=== PATIENT | male | born 1950 | race Caucasian/White ===

== ENCOUNTER 2018-09-18 08:43 | Inpatient (IN) ==
--- OUTSIDE RECORDS SUMMARY | 2018-09-18 08:46 | External Medical Summary | Continuity of Care Document ---
:1950 Author Name Levon Merritt Address Unavailable Unavailable , Care Team Providers Name Role Phone Sakina KAPOOR Unavailable [email or web address] Mitchel CARIAS Unavailable Unavailable Problems Active medical history not documented Allergies and Adverse Reactions Allergy history not documented Medications Medications not documented Procedures Procedures not documented Immunizations Immunizations not documented Plan of Treatment Planned Observations Planned Goals not documented Results No Known Results Results not documented Encounters Appointment; Jenifer Preslye CCC-A 14-Jan-2014 13:00 Encounter Diagnosis: Problem not documented
[2018-09-18] MEDS ORDERED: OPTIRAY 320 125ml IV PRN (09:03)
--- NOTE | 2018-09-18 09:20 | CT Scan Report ---
CT head/brain wo con CLINICAL HISTORY: 68 years-old Male with Stroke evaluation . Acute strokelike symptoms TECHNIQUE: Multiple axial CT images of the head were obtained without contrast. A dose lowering tech nique was utilized adhering to the principles of ALARA. COMPARISON: CT head 04/17/2018. FINDINGS: No acute intracranial hemorrhage, midline shift, intracranial mass, hydrocephalus, or abnormal extra- axial collection. Age-related involutional changes. Encephalomalacia from remote infarct about the ri ght frontal lobe redemonstrated. Scattered white matter hypodensities are suggestive of chronic micro vascular ischemic disease. Cerebral vascular calcifications are noted. Senescent calcifications of th e right lentiform nucleus. Ill-defined hypodensity with blurring of the bourgeois-white interface involves the left occipital lobe. This measures up to approximate 5.3 x 3.6 cm. Additionally, there is probab le infarct extension into the posterior left parietal lobe, image 16 series 2. The calvarium is intact. Mastoid air cells and middle ear cavities are clear. Moderate mucosal thick ening of the ethmoid air cells. Moderate to severe mucosal thickening of the visualized maxillary sin uses. The soft tissues and orbits are unremarkable. IMPRESSION: 1. Moderate sized acute appearing territorial infarct about the left parieto-occipital distribution. 2. No acute intracranial hemorrhage or midline shift. 3. Chronic findings as above. The above report was generated using voice recognition software. It may contain grammatical, syntax o r spelling errors. Electronically signed by: Garret Degroot M.D. 09/18/2018 9:18 AM
[2018-09-18] MEDS ORDERED: MAGNESIUM SULFATE / D5W 1 GM/100 ML BAG IV ONE (09:28)
[2018-09-18] MEDS ORDERED: ASPIRIN CHEW 324 MG PO STA (09:28)
[2018-09-18] MEDS ORDERED: LEVOFLOXACIN/D5W 750 MG/150 ML BAG IV STA (09:28)
[2018-09-18] MEDS ORDERED: PIPERACILLIN/TAZOBACTAM 4.5 GM/120 ML BAG IV ONE (09:28)
[2018-09-18] MEDS ORDERED: PIPERACILL/TAZOBAC CONSULT ACTIVE PRN (09:28)
[2018-09-18] MEDS ORDERED: LEVALBUTEROL HCL 1.25 MG/3 ML NEB NEB STA (09:30)
[2018-09-18] MEDS ORDERED: SODIUM CHLORIDE 0.9% 1000ML 1,000 ML IV ONE (09:30)
--- NOTE | 2018-09-18 09:31 | CT Scan Report ---
CTA ANGIOGRAPHY OF THE HEAD CLINICAL HISTORY: Visual disturbance. Difficulty walking. Stroke evaluation. COMPARISON STUDY: MRA of the head March 10, 2009. Head CT April 17, 2018. TECHNIQUE: Helical axial images of the head were obtained following uneventful intravenous administr ation of 120 cc of Optiray 320. Automated exposure control was utilized for the study. A dose lower ing technique was utilized adhering to the principles of ALARA. FINDINGS: Please note that the CTA of the neck will be reported separately. No acute intracranial hem orrhage, midline shift or mass effect is present. Old right frontal lobe infarct is noted. There is h ypodensity within the left occipital lobe which suggests an acute to subacute infarct. There is no si gnificant mass effect. Ventricular system is unremarkable. The basilar cisterns are patent. Bilateral maxillary sinus air-fluid levels are noted. There is also mild ethmoid sinus mucosal thickening. The bilateral M1, M2, A1 and A2 segments are patent. There is no abrupt vessel cut off. There is extensi ve plaque within the bilateral cavernous carotids with mild stenosis. No intracranial aneurysm is yonis ntified. No abrupt vessel cut off within the posterior circulation is noted. IMPRESSION: 1. No intracranial aneurysm or abrupt vessel cut off. Extensive plaque within bilateral cavernous car otids with mild stenosis. 2. Hypodensity within the left occipital lobe which suggests an acute to subacute infarct. 3. Bilateral maxillary and ethmoid sinusitis, possibly acute. Electronically signed by: Filiberto Donahue M.D. 09/18/2018 9:30 AM
[2018-09-18 09:33] LABS: Basophils # (auto) 0.03 K/uL (0-0.2); Basophils % (auto) 0.3 %; Eosinophils # (auto) 0.06 K/uL (0-0.5); Eosinophils % (auto) 0.6 %; Hematocrit (blood only) 45.6 % (42-52); Hemoglobin 15.8 g/dL (14.0-18.0); Immature Granulocytes # (auto) 0.01 K/uL (0.00-0.02); Immature Granulocytes % (auto) 0.1 %; Lymphocytes # (auto) 1.08 K/uL (1.2-3.4); Lymphocytes % (auto) 10.7 %; Mean Corpuscular Hgb Conc 34.6 g/dL (32-36); Mean Corpuscular Volume 96.4 fL (80-100); Mean Platelet Volume 9.8 fL (7.4-10.4); Monocytes # (auto) 1.09 K/uL (0.11-0.59); Monocytes % (auto) 10.8 %; Neutrophils # (auto) 7.84 K/uL (1.4-6.5); Neutrophils % (auto) 77.5 %; Platelet Count 207 K/uL (130-400); RDW Coefficient of Variation 14.8 % (11.5-14.5); RDW Standard Deviation 52.6 fL (36.4-46.3); Red Blood Count 4.73 M/uL (4.7-6.1); White Blood Count 10.11 K/uL (4.8-10.8)
--- NOTE | 2018-09-18 09:34 | XRay Report ---
XR chest 1V portable HISTORY: 68 years-old Male Pt c/o visual disturbance acute strokelike symptoms COMPARISON: Chest radiograph 02/20/2018, chest CT 01/22/2010 TECHNIQUE: Portable AP view of the chest FINDINGS: Cardiomediastinal and hilar silhouettes are unchanged. Chronic pleural parenchymal scarring about the left upper lung redemonstrated. There is no pneumothorax, large pleural effusion or overt pulmonary edema identified. Surgical clip projects over the abdominal left upper quadrant. Degenerative changes of the shoulders and spine. Calcification the thoracic aortic arch. IMPRESSION: Chronic changes as above without acute process. The above report was generated using voice recognition software. It may contain grammatical, syntax o r spelling errors. Electronically signed by: Garret Degroot M.D. 09/18/2018 9:32 AM
[2018-09-18 09:39] LABS: iSTAT Creatinine 1.4 mg/dl (0.6-1.3); iSTAT Hemoglobin 16.7 g/dl (14.0-18.0); iSTAT Ionized Calcium 1.08 mmol/l (1.12-1.32); iSTAT Potassium 4.6 mEq/L (3.3-5.0)
--- NOTE | 2018-09-18 09:40 | CT Scan Report ---
CT angio neck with con CLINICAL HISTORY: 68 years-old Male presenting with Pt c/o trouble walking, aphasia, visual disturban ce, concern for stroke. TECHNIQUE: Multidetector CT angiography of the neck was performed after the administration of intrave nous contrast. 3-D volumetric and/or maximum intensity projection (MIP) images were subsequently bree nstructed for review. IV contrast: 120 mL of Optiray 320. One or more dose lowering techniques were u sed consistent with the principles of ALARA (as low as reasonably achievable), including automatic ex posure control, mA or kV adjustment to individual patient size, and/or use of iterative reconstructio n. Stenosis measurements were based on NASCET-like criteria (distal lumen diameter as the denominator for stenosis measurement). COMPARISON: None. CT DOSE (mGy.cm): The estimated cumulative dose is 1106.53 mGy.cm. FINDINGS: Publication Distributor topogram: Unremarkable. Aortic arch: Extensive calcified and noncalcified atherosclerotic plaque of the aortic arch, which is irregular and mildly ectatic measuring 4.4 cm in diameter in comparison to the partially visualized more distal aortic arch. The proximal aortic arch is nonocclusive within the [id number]. Innominate artery: The origin of the innominate is not included within the [id number]. Extensive a therosclerotic irregularity of the lumen of the innominate. Right subclavian artery: Patent. Right common carotid artery: Calcified and noncalcified atherosclerotic plaque primarily at the origi n and proximal portion of the right common carotid artery. Right internal and external carotid arteries: Densely calcified carotid bifurcation predominantly inv olving the origin of the right internal carotid artery. The degree of heavily calcified plaque degrad es accuracy of stenosis measurement. Allowing for this there is less than 30% stenosis resulting. Sig nificant luminal irregularity of the proximal course of the right ICA with a second site of stenosis less than 40% at C3-4. External carotid artery widely patent. Left common carotid artery: Mild atherosclerotic irregularity of the common carotid artery. Left internal and external carotid arteries: Densely calcified atherosclerotic plaque as well as a le sser component of noncalcified plaque at the carotid bifurcation predominantly involving the origin o f the left internal carotid artery. No resulting significant stenosis. Remainder of the course of the left ICA widely patent as is the left ECA. Left subclavian artery: Aneurysmal dilatation of the origin and proximal course of the left subclavia n artery measuring 2.4 cm in diameter. Significant noncalcified atherosclerotic plaque results in sev ere luminal irregularity though there is less than 25% stenosis. The left subclavian artery returns t o a normal caliber prior to the takeoff of the left vertebral artery. Vertebral arteries: Codominant vertebral arteries. Atherosclerotic plaque at the origin and proximal course of the right vertebral artery resulting in stenosis less than 50%. No stenosis of the origin o f the left vertebral artery. Remainder of the courses of the bilateral vertebral arteries patent. Other: Extensive atherosclerotic plaque of the cavernous portions of the internal carotid arteries an d minimally in the intradural portions of the vertebral arteries. Soft tissues of the neck normal all owing for the phase of contrast. Mild degenerative changes of the cervical spine. Opacification of th e maxillary sinuses. Lung apices clear. IMPRESSION: 1. Aneurysmal dilatation of the aortic arch, which is only partially included within the field-of-vi ew. 2. 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 3. Extensive atherosclerosis without evidence of a severe stenosis in the cervical arteries. Stenose s less than 50% noted in the proximal right internal carotid artery and origin of the right vertebral artery. Electronically signed by: Santiago Hernandez M.D. 09/18/2018 9:38 AM
[2018-09-18 09:47] LABS: INR 1.1 (0.9-1.1); Partial Thromboplastin Time 27.8 Seconds (21.0-31.0); Prothrombin Time 10.9 Seconds (9.0-12.0)
[2018-09-18 09:49] LABS: Alanine Aminotransferase 14 U/L (12-78); Albumin Level 2.9 gm/dl (3.4-5.0); Aspartate Aminotransferase 19 U/L (15-37); BUN Creatinine Ratio 13.4 (10-20); Blood Urea Nitrogen 20 mg/dl (7-18); Calcium 9.2 mg/dl (8.5-10.1); Carbon Dioxide 24 mmol/L (21-32); Chloride 94 mmol/L (98-107); Creatinine Clr Calc Pharmacy 45.5 ml/min; Est GFR (African American) 54.3; Est GFR (Non-African American) 46.9; Glucose 95 mg/dl (70-99); Potassium 4.6 mmol/L (3.5-5.1); Sodium 127 mmol/L (136-145)
[2018-09-18 09:54] LABS: Albumin Globulin Ratio 0.6 (0.9-2); Alkaline Phosphatase 84 U/L (45-117); Bilirubin,Total 0.9 mg/dl (0.2-1); Globulin 4.7 gm/dl (2.5-4.0); Total Protein 7.6 gm/dl (6.4-8.2); Troponin I < 0.015 ng/ml (0-0.045)
--- NOTE | 2018-09-18 10:47 | History & Physical Report ---
Date of Service September 18, 2018 Assessment & Plan (1) CVA (cerebral vascular accident): Pt presented to ER with blurry vision, NAILS, difficulty walking that was noted upon awakening on 09/17/18 . Reported elevated BP 180s/90s yesterday and was having some word finding difficulty. Today in ER patient complains of continued blurry vision, dizziness and ambulatory difficulty. Denies any current headache, vision loss, diplopia, paresthesias or extremity weakness. In ER BP 117/67, 161/70 CT HEAD:Moderate sized acute appearing territorial infarct about the left parieto-occipital distribution. No acute intracranial hemorrhage or midline shift. CTA HEAD: No intracranial aneurysm or abrupt vessel cut off. Extensive plaque within bilateral cavernous carotids with mild stenosis. Hypodensity within the left occipital lobe which suggests an acute to subacute infarct. CTA NECK: Aneurysmal dilatation of the aortic arch, which is only partially included within the ncymt-[id number]. 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 Extensive atherosclerosis without evidence of a severe stenosis in the cervical arteries. Stenoses less than 50% noted in the proximal right internal carotid artery and origin of the right vertebral artery. -In ER was given aspirin 324mg po -Tele to monitor for arrhythmias -EKG in am -trend troponin -lipids and A1C in am -MRI brain -echo with bubble study -aspiration precautions -PT/OT consult -continue statin, aspirin -neurology consult (2) Sinusitis: (3) Bronchitis: Patient with reported sinus congestion, rhinorrhea, productive clear-white cough and wheezing x1 month. Reported completion amoxicillin outpatient last month In ER R: 20, 94% on room air. Initial CXR: No acute changes In ER patient was given 1L NSS, magnesium 1 g IV, Xopenex nebulizer, Zosyn, Lev aquin CT head with noted bilateral maxillary and ethmoid sinusitis, possibly acute Noted diffuse wheezing throughout. -Obtain repeat chest x-ray to rule out volume overload, hold on further IVF at this time -Xopenex/Atrovent nebulizer treatments -Levaquin (4) Hypertension: BP: 161/70 -continue metoprolol, amlodipine, hydralazine (5) AAA (abdominal aortic aneurysm): S/P AAA repair in 2008 (6) CKD (chronic kidney disease), stage III: Cr:1.49. Baseline ~1.4 -Monitor renal function -Avoid nephrotoxic agents and possible (7) Hyperlipidemia: -Continue statin DVT Prophylaxis -Heparin SQ Full Code as per discussion with pt Follows with Dr Kingston for routine care Pt was seen with Dr Reyes. See addendum History of Present Illness Chief Complaint: Blurry vision, dizziness Primary Care Provider: Jairo Kingston MD Pt is 68 y/o M with PMH HTN, HLD, CKD III, AAA s/p repair in 2008, gout presented to ER with c/o blurry vision, dizziness. Pt states woke up yesterday 09/17/18 with blurry vision, NAILS. Also noticed difficulty walking. Reports that BP was elevated in the 180s/90s yesterday and was having some word finding difficulty. Presented to PCPs office today and was referred to ER secondary to symptoms. Today patient denies any headache. Lungs blurry vision is a little better. Still with dizziness altered gait when walking. Denies any extremity paresthesias or weakness. Denies any choking or dysphasia, facial drooping, slurred speech. Reports patient was treated for sinus infection with amoxicillin in 07/2018. Reports has had continued sinus congestion and cough productive of clear/white sputum. Reports past month has had some wheezing. Denies any fevers or chills. Denies any falls or head injury. Denies diaphoresis, N/V/D/C, syncope, LOC, vision loss, diplopia, neck pain, CP, SOB, orthopnea, palpitations, sore throat, otalgia, abdominal pain, extremity edema, rashes, urinary symptoms. Allergies Allergy/AdvReac Type Severity Reaction Status Date / Time lisinopril Allergy Intermediate BP DROP Unverified 09/18/18 09:23 clopidogrel AdvReac Unknown HEART PALP. Verified 09/18/18 09:23 Home Medications Home Medications Medication Instructions Recorded Confirmed Type allopurinol 300 mg PO DAILY PRN 02/20/18 09/18/18 History amlodipine 10 mg PO QAM 02/20/18 09/18/18 History atorvastatin 40 mg PO QAM 02/20/18 09/18/18 History metoprolol tartrate 100 mg PO BID 02/20/18 09/18/18 History hydralazine 10 mg PO BID 04/17/18 09/18/18 History aspirin 81 mg PO QAM 09/18/18 09/18/18 History fluticasone propionate 2 spray INTRANASAL QAM 09/18/18 09/18/18 History folic acid 1 mg PO QAM 09/18/18 09/18/18 History ibuprofen [Advil] 200 mg PO Q6H PRN 09/18/18 09/18/18 History multivitamin 1 tab PO QAM 09/18/18 09/18/18 History thiamine HCl (vitamin B1) [Vitamin 100 mg PO QAM 09/18/18 09/18/18 History B-1] Past Med/Surg History Medical History CKD (chronic kidney disease), stage III (Chronic) Gout (Chronic) Hyperlipidemia (Chronic) Acute kidney injury superimposed on chronic kidney disease (Resolved) Hypertension (Chronic) Acute blood loss anemia (Resolved) GI bleed (Resolved) AAA (abdominal aortic aneurysm) (Chronic) S/P repair Surgical History Hx of hernia repair (Chronic) lysis of adhesions, incisional hernia repair laparoscopically 01/28/2010 at [facility] - Dr Desouza History of tonsillectomy and adenoidectomy (Chronic) History of lumbar surgery (Chronic) 2000 S/P AAA repair (Chronic) 01/13/2009 - Dr Suazo Hx of colonoscopy (Chronic) Family History Other AAA (abdominal aortic aneurysm) Hypertension Social History Preferred Language: Brazilian Communication Ability: Effective Paediatric Thoracic Physician Required: No Beliefs That Will Affect Care: None marital status: Current Living Situation: Spouse current occupational status: employed Other Information That Helps Us Care for You: No Feels Safe at Home: Yes Safety Concerns: Feels Safe At This Time Smoking Status: Current every day smoker Tobacco Type: cigars Cigarettes Per Day: Former cigarette. Quit 1998 Hx Alcohol Use: Yes Alcohol type: beer Alcohol Intake Frequency Comment: Last drink 2 days ago Hx Substance Use: No Review of Systems Review of Systems: All systems reviewed & are unremarkable except as noted in HPI & below Physical Exam Physical Exam: General: no acute distress, WDWN Head: normocephalic, atraumatic Eyes: PERRL, EOM's intact, conjunctiva non-injected, anicteric ENT: normal inspection external ears, nose, mucous membranes moist Neck: supple, trachea midline, carotid bruits L>R Lungs: no respiratory distress, +diffuse wheezing throughout CV: RRR, no murmur, no pretibial edema Abd: normal BS, soft, non-tender Ext: no cyanosis, no calf tenderness Neuro: A&O x 3, no facial drooping, symmetric eyebrow raise, speech clear, tongue midline, no pronator drift, strength 5/5 upper and lower extremities while testing in bed, decreased peripheral vision to right eye, normal affect Skin: warm, dry Results & Data Vital Signs (Past 12 Hours) Vital Signs Temp Pulse Pulse Resp BP Pulse Ox 09/18/18 10:01 61 164/85 H 100 09/18/18 10:00 61 100 09/18/18 09:58 72 16 95 09/18/18 09:37 95 09/18/18 09:32 56 L 94 09/18/18 09:31 57 L 161/70 H 95 09/18/18 09:30 58 L 09/18/18 09:17 59 L 09/18/18 09:14 61 171/82 H 09/18/18 08:50 36.6 C 62 20 117/67 94 Laboratory Results Short CBC 09/18/18 Range/Units 09:12 WBC 10.11 (4.8-10.8) K/uL Hgb 15.8 (14.0-18.0) g/dL Hct 45.6 (42-52) % Plt Count 207 (130-400) K/uL BMP 09/18/18 09:12 Sodium 127 L Potassium 4.6 Chloride 94 L Carbon Dioxide 24 BUN 20 H Creatinine 1.49 H Glucose 95 Calcium 9.2 Cardiac Enzymes 09/18/18 Range/Units 09:12 Troponin I < 0.015 (0-0.045) ng/ml Liver Function 09/18/18 Range/Units 09:12 Total Bilirubin 0.9 (0.2-1) mg/dl AST 19 (15-37) U/L ALT 14 (12-78) U/L Alkaline Phosphatase 84 (45-117) U/L Albumin 2.9 L (3.4-5.0) gm/dl Diagnostic Findings CT HEAD: IMPRESSION: 1. Moderate sized acute appearing territorial infarct about the left parieto- occipital distribution. 2. No acute intracranial hemorrhage or midline shift. 3. Chronic findings as above CTA HEAD: IMPRESSION: 1. No intracranial aneurysm or abrupt vessel cut off. Extensive plaque within bilateral cavernous carotids with mild stenosis. 2. Hypodensity within the left occipital lobe which suggests an acute to subacute infarct. 3. Bilateral maxillary and ethmoid sinusitis, possibly acute. CTA NECK: IMPRESSION: 1. Aneurysmal dilatation of the aortic arch, which is only partially included within the [id number]. 2. 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 3. Extensive atherosclerosis without evidence of a severe stenosis in the cervical arteries. Stenoses less than 50% noted in the proximal right internal carotid artery and origin of the right vertebral artery. CXR: IMPRESSION: Chronic changes as above without acute process. ECG Rate (beats per minute): 59 Rhythm: sinus bradycardia Findings: + T-wave inversion Additional Comments: t wave inversions V1, III also noted on ekg 02/2018 Supervising Physician Co-Signing Physician Notes I saw this patient with the physician special event assistant, I participated in the history, physical, review of systems, and physical exam. I reviewed the medications with the patient and the physician special event assistant and helped reconcile the medications. I helped take a detailed family and social history as well. I formulated the assessment and plan personally with the physician special event assistant and went over it with the patient. ROS-No Headache, +Visual Changes, No Nausea, No Vomiting, No Fever, No Chills, No Neck Pain or Stiffness, No Chest Pain, No Palpitations, No SOB, No CAMARENA, No Cough, No Sputum, No Wheezing, No Abdominal Pain, No Diarrhea, No Hematemesis, No Hemoptysis, No Unexpected Weight Loss, No Flank pain, No Melena, No Hematochezia, No Frequency, No Urgency, No Burning, No Hematuria, No Rashes, No Diaphoresis. Appetite is Normal Physical Exam Gen-AAO x 3, NAD, Afebrile, SELDOVIA Head-NCAT, EOMI, PERRLA, Anicteric Sclera, No Posterior Pharyngeal Erythema, Possible R Hemianopsia Neck-Supple, No JVD, No Thyromegaly, No Masses, No LAD, + L>R Bruits Lungs-Clear to Auscultation Bilaterally, No Rales, No Rhonchi, +Wheezing, No Crepitus Chest-No S4, +S1, +S2, No S3, No Murmurs, No Rubs, No Gallops, No Ectopy Abdomen-Soft, Bowel Sounds Present, Non Tender, Non Distended, No Hepatomegaly, No Splenomegaly, No Palpable Masses, No Rebound, No Rigidity, No Guarding Musculoskeletal-Full Range of Motion Bilaterally, No CVAT Extremities-No Cyanosis, No Clubbing, No Edema Nuero-Cranial Nerves II-XII grossly intact, Motor WNL, DTRs WNL, Strength WNL, Non Focal Psych-Normal Mood (1) CVA (cerebral vascular accident) CVA mechanism: unspecified Qualified Code(s): I63.9 - Cerebral infarction, unspecified
[2018-09-18] MEDS ORDERED: PHARMACIST DISCHARGE MED REC CONSULT PRN (11:41)
[2018-09-18] MEDS ORDERED: ACETAMINOPHEN 325 MG TAB PO PRN (11:41)
[2018-09-18] MEDS ORDERED: STROKE PATIENT DISCHARGE STA (12:38)
[2018-09-18] MEDS ORDERED: XOPENEX/ATROVENT 0.63mg/0.5MG NEB COMBO NEB SCH (14:00)
[2018-09-18] MEDS: IPRATROPIUM BROMIDE NEB SOLN 0.02% 2.5 ML VIAL INH SCH ×2 (14:22→19:47)
[2018-09-18] MEDS: LEVALBUTEROL HCL 0.63 MG/3 ML NEB NEB SCH ×2 (14:22→19:47)
[2018-09-18] MEDS: HEPARIN SOD 5,000 UNIT/0.5 ML VIAL SQ SCH ×2 (14:32→21:05)
--- NOTE | 2018-09-18 14:43 | Neurology Consultation ---
Date of Consultation September 18, 2018 Assessment & Plan (1) CVA (cerebral vascular accident): 1. CT head- left parieto occipital infarct 2. MRI brain for further evaluation of extent of stroke 3. TTE- ordered but not resulted- with bubble study 4. optimize HTN, HLD, LDL <70 5. long time smoker- cessation urged 6. NA 127-128 ? may need CA work up if no other cause is found? 7. would stop aspirin 81 mg and contine plavix 75 mg for a lifetime 8. PT/OT speech for discharge needs 9. will need ophthalmology as out patient and should not drive until cleared due to loss of right peripheral vision 10. surveillance monitor as outpatient follow up with neurology as outpatient in 4-6 weeks Sophy Maguire PAC schedule Supervising Physician Co-Signing Physician Notes I have seen and discussed above patient with Dr Patricio Ramirez, neurology I have seen and examined Mr. Fung today, reviewed his imaging studies which is yet do not include an MRI scan but to document the presence of a clear-cut left occipital pole infarction of recent origin on CT and have reviewed Sophy Maguire's notes and recommendations above. He has had an acute left occipital lobe infarction without any other findings on exam or on CTs scan that would suggest involvement of deeper areas of the brain and this did occur while he was taking baby aspirin as part of his general vascular disease program Exam reveals only the right hemianopsia which is fairly dense and little hesitancy in speech which is pretty nonspecific and may reflect some hearing loss rather than language disturbance. Otherwise examination is pretty nonfocal We are awaiting results of echocardiogram and is on monitoring for paroxysmal atrial fibrillation which is part of the differential diagnosis of this type of stroke We will add Plavix to his regimen even though [facility] is listed as an allergy. The manifestations are aware of heart palpitations which in my mind are highly nonspecific and may have been due to any 1 of a number of other conditions We will see what happens in the hospital after single dose perhaps a series of doses while we are working him up for cardiogenic emboli and observing him for development of atrial fibrillation if he is able to tolerate the Plavix program would include maintenance of dual antiplatelet therapy for 21 days and then using Plavix as a monotherapy which in light of his prior GI bleed due to gastric mucosal irritation, might be a better long-term choice compared to aspirin anyway We will check back with him tomorrow. Patricio Ramirez MD History of Present Illness Reason for Consultation: CVA Requesting Physician: Torey Reyes DO Attending Physician: Torey Reyes DO History of Present Illness Mikhail is a 68 year old male with PMH HTN, HLD, CKD III, UGI bleed with cli pping, AAA s/p repair in 2008, gout presented to ER with c/o blurry vision, dizziness. He woke with blurry vision, NAILS and was having difficulty walking. His blood pressure was elevated in the 180s/90s and was having some word finding difficulty. He went to his PCPs office and then referred to ER secondary to symptoms. He is still having blurry vision and some dizziness and gait difficulty with walking. He continues to have ongoing sinus congestion and cough productive of clear/white sputum long with some wheezing. He is a cigar smoker and knows he needs to stop. denies CP, SOB, abdominal pain, one sided weakness numbness tingling, N, V, slurred speech swallowing issues. +blurred vision. Allergies Allergy/AdvReac Type Severity Reaction Status Date / Time lisinopril Allergy Intermediate BP DROP Unverified 09/18/18 09:23 clopidogrel AdvReac Unknown HEART PALP. Verified 09/18/18 09:23 Home Medications Home Medications Medication Instructions Recorded Confirmed Type allopurinol 300 mg PO DAILY PRN 02/20/18 09/18/18 History amlodipine 10 mg PO QAM 02/20/18 09/18/18 History atorvastatin 40 mg PO QAM 02/20/18 09/18/18 History metoprolol tartrate 100 mg PO BID 02/20/18 09/18/18 History hydralazine 10 mg PO BID 04/17/18 09/18/18 History aspirin 81 mg PO QAM 09/18/18 09/18/18 History fluticasone propionate 2 spray INTRANASAL QAM 09/18/18 09/18/18 History folic acid 1 mg PO QAM 09/18/18 09/18/18 History ibuprofen [Advil] 200 mg PO Q6H PRN 09/18/18 09/18/18 History multivitamin 1 tab PO QAM 09/18/18 09/18/18 History thiamine HCl (vitamin B1) [Vitamin 100 mg PO QAM 09/18/18 09/18/18 History B-1] Patient History Medical History CKD (chronic kidney disease), stage III (Chronic) Gout (Chronic) Hyperlipidemia (Chronic) Acute kidney injury superimposed on chronic kidney disease (Resolved) Hypertension (Chronic) Acute blood loss anemia (Resolved) GI bleed (Resolved) AAA (abdominal aortic aneurysm) (Chronic) S/P repair Surgical History Hx of hernia repair (Chronic) lysis of adhesions, incisional hernia repair laparoscopically 01/28/2010 at [facility] - Dr Desouza History of tonsillectomy and adenoidectomy (Chronic) History of lumbar surgery (Chronic) 1999 S/P AAA repair (Chronic) 01/13/2009 - Dr Suazo Hx of colonoscopy (Chronic) Family History Other AAA (abdominal aortic aneurysm) Hypertension Social History Preferred Language: Syrian Communication Ability: Effective Manager Financial Services Required: No Beliefs That Will Affect Care: None marital status: Current Living Situation: Spouse current occupational status: employed Other Information That Helps Us Care for You: No Feels Safe at Home: Yes Safety Concerns: Feels Safe At This Time Smoking Status: Current every day smoker Tobacco Type: cigars Cigarettes Per Day: Former cigarette. Quit 1998 Hx Alcohol Use: Yes Alcohol type: beer Alcohol Intake Frequency Comment: Last drink 2 days ago Hx Substance Use: No Physical Exam Physical Exam: Physical Exam: Constitutional: appearance nourished, healthy and normal Ears, Nose, Mouth and Throat: mucous membranes moist, no injection and skin normal, eyes normal Cardiovascular: normal S-1 and S-2 and regular rate and rhythm Respiratory: clear to auscultation (CTA) and no rales, ronchi or wheeze Musculoskeletal: no peripheral edema and good distal pulses Skin: no stigmata of neurocutaneous disease noted and normal and intact Eyes: extraocular muscles intact (EOMI) and pupils equal, round and reactive to light (PERRL), right jemima anopsia NEUROLOGIC EXAMINATION: Mental status: Alert and interactive Oriented thought it was 2012 but then corrected self, president Kun, June and then corrected to September Oriented to person Speech fluent with no evidence of aphasia Cranial Nerves smile eye brow raise symmetric Reflexes: Deep tendon reflexes were symmetrical and graded 2/5. Sensory: to light and cool touch intact Coordination: finger to nose bipass on left intact on right, rapid hand movement intact bilaterally, heel to thomas intact bilaterally Gait/Stance: Posture normal. Motor: Negative for pronator drift of out stretched arms with eyes closed. Strength: biceps triceps hand barrel tester 5/5 bilaterally, hip flex plantar flex ext 5/5 bilaterally Results & Data Vital Signs (Past 12 Hours) Vital Signs Temp Pulse Pulse Pulse Resp BP BP 09/18/18 14:22 64 18 09/18/18 12:42 66 09/18/18 11:43 36.7 C 68 16 124/71 09/18/18 10:01 61 164/85 H 09/18/18 10:00 61 09/18/18 09:58 72 16 09/18/18 09:37 09/18/18 09:32 56 L 09/18/18 09:31 57 L 161/70 H 09/18/18 09:30 58 L 09/18/18 09:17 59 L 09/18/18 09:14 61 171/82 H 09/18/18 08:50 36.6 C 62 20 117/67 Pulse Ox 09/18/18 14:22 93 09/18/18 12:42 09/18/18 11:43 91 09/18/18 10:01 100 09/18/18 10:00 100 09/18/18 09:58 95 09/18/18 09:37 95 09/18/18 09:32 94 09/18/18 09:31 95 09/18/18 09:30 09/18/18 09:17 09/18/18 09:14 09/18/18 08:50 94 Laboratory Results Abnormal lab results 09/18/18 09/18/18 09/18/18 Range/Units 09:12 09:12 09:27 RDW Std Deviation 52.6 H (36.4-46.3) fL RDW Coeff of Chaka 14.8 H (11.5-14.5) % Neut # (Auto) 7.84 H (1.4-6.5) K/uL Lymph # (Auto) 1.08 L (1.2-3.4) K/uL Johnson # (Auto) 1.09 H (0.11-0.59) K/uL POC Sodium 128 L (135-144) mEq/L Sodium 127 L (136-145) mmol/L POC Chloride 93 L (101-112) mEq/L Chloride 94 L (98-107) mmol/L POC Total CO2 23 L (24-31) mEq/l POC BUN 20 H (7-18) mg/dl BUN 20 H (7-18) mg/dl Creatinine 1.49 H (0.6-1.4) mg/dl POC Creatinine 1.4 H (0.6-1.3) mg/dl POC Ioniz Calcium Maria G 1.08 L (1.12-1.32) mmol/l Albumin 2.9 L (3.4-5.0) gm/dl Globulin 4.7 H (2.5-4.0) gm/dl Albumin/Globulin Ratio 0.6 L (0.9-2) Diagnostic Findings CXR-Chronic changes as above without acute process. CT head-Moderate sized acute appearing territorial infarct about the left parieto-occipital distribution. No acute intracranial hemorrhage or midline shift. Chronic findings as above. CTA head-1. No intracranial aneurysm or abrupt vessel cut off. Extensive plaque within bilateral cavernous carotids with mild stenosis. Hypodensity within the left occipital lobe which suggests an acute to subacute infarct. Bilateral maxillary and ethmoid sinusitis, possibly acute. CTA neck-Aneurysmal dilatation of the aortic arch, which is only partially included within the [id number]. 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 Extensive atherosclerosis without evidence of a severe stenosis in the cervical arteries. Stenoses less than 50% noted in the proximal right internal carotid artery and origin of the right vertebral artery. (1) CVA (cerebral vascular accident) CVA mechanism: unspecified Qualified Code(s): I63.9 - Cerebral infarction, unspecified
--- NOTE | 2018-09-18 15:01 | Emergency Department Note ---
Entered by Shagufta Richard acting as a scribe for Taiwo Dimas MD History of Present Illness General Chief complaint: Visual Disturbance Stated complaint: CAN'T SEE - VISION ISSUES Time Seen by Provider: 09/18/18 08:58 Source: patient and RN notes reviewed Mode of arrival: ambulatory Limitations: no limitations History of Present Illness Provider complaint: stoke-like symptoms Onset (ago): day(s) 1 Location: head Pain Consistency: + other (persistent) Maximum Pain Intensity: 0 Quality: + other (stroke-like) Associated symptoms: + cough, + headaches and + other (blurred vision, dizzy) Treatments prior to arrival: other (ibuprofen) The patient is a 68 year old male who presents to the ER with complaints of persistent stroke-like symptoms that began yesterday. The patient reported to triage that his symptoms began a t 0900 yesterday. Per triage note, the patient has been lightheaded and has had an associated headache and blurred vision, especially in the right eye. The RN states that the patient took ibuprofen this morning but that it did not alleviate his symptoms. Per RN, the patient has had trouble finding his words as well as walking. The patients at bedside reports that he patient had had a cough and sinus congestion for about 3 weeks. She states that she the patient was evaluated by his PCP 2 weeks ago and prescribed an antibiotic that has not been helping. She notes that the patient since yesterday has been complaining of bilateral cheek pain, a headache and blurred vision so they presented to his PCPs office this morning where he was then referred to the ER. She states that the patient smokes a cigar a day. Home Medications Home Medications Medication Instructions Recorded Confirmed Type allopurinol 300 mg PO DAILY PRN 02/20/18 09/18/18 History amlodipine 10 mg PO QAM 02/20/18 09/18/18 History atorvastatin 40 mg PO QAM 02/20/18 09/18/18 History metoprolol tartrate 100 mg PO BID 02/20/18 09/18/18 History hydralazine 10 mg PO BID 04/17/18 09/18/18 History aspirin 81 mg PO QAM 09/18/18 09/18/18 History fluticasone propionate 2 spray INTRANASAL QAM 09/18/18 09/18/18 History folic acid 1 mg PO QAM 09/18/18 09/18/18 History ibuprofen [Advil] 200 mg PO Q6H PRN 09/18/18 09/18/18 History multivitamin 1 tab PO QAM 09/18/18 09/18/18 History thiamine HCl (vitamin B1) [Vitamin 100 mg PO QAM 09/18/18 09/18/18 History B-1] Allergies Allergy/AdvReac Type Severity Reaction Status Date / Time lisinopril Allergy Intermediate BP DROP Unverified 09/18/18 09:23 clopidogrel AdvReac Unknown HEART PALP. Verified 09/18/18 09:23 Past Med/Surg History Medical History CKD (chronic kidney disease), stage III (Chronic) Gout (Chronic) Hyperlipidemia (Chronic) Acute kidney injury superimposed on chronic kidney disease (Resolved) Hypertension (Chronic) Acute blood loss anemia (Resolved) GI bleed (Resolved) AAA (abdominal aortic aneurysm) (Chronic) S/P repair Surgical History Hx of hernia repair (Chronic) lysis of adhesions, incisional hernia repair laparoscopically 01/28/2010 at [facility] - Dr Desouza History of tonsillectomy and adenoidectomy (Chronic) History of lumbar surgery (Chronic) 2000 S/P AAA repair (Chronic) 01/13/2009 - Dr Suazo Hx of colonoscopy (Chronic) Family History Other AAA (abdominal aortic aneurysm) Hypertension Social History Preferred Language: Macedonian Communication Ability: Effective 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 Quit 1998 Hx Alcohol Use: Yes Alcohol type: beer Alcohol Intake Frequency Comment: Last drink 2 days ago Hx Substance Use: No Review of Systems See HPI for pertinent positives & negatives. and A total of 10 systems reviewed and were otherwise negative Physical Exam Vital Signs Vital Signs - 24 hr 09/18/18 08:50 09/18/18 09:14 09/18/18 09:17 Temperature 36.6 C Temperature Source Oral Sepsis Recent Fever Within 48 Hours No Sepsis Action Taken by Nursing No Action Required Pulse Rate 62 61 59 L Pulse Rate [Apical] Pulse Rate from SpO2 Sensor Pulse Rhythm Respiratory Rate 20 Respiratory Effort / Characteristics Non-Labored Respiratory Depth Normal Blood Pressure 117/67 171/82 H Blood Pressure Mean 83 111 Pulse Oximetry 94 Oxygen Delivery Method Room Air 09/18/18 09:30 09/18/18 09:31 09/18/18 09:32 Temperature Temperature Source Sepsis Recent Fever Within 48 Hours Sepsis Action Taken by Nursing Pulse Rate 58 L 57 L 56 L Pulse Rate [Apical] Pulse Rate from SpO2 Sensor 57 L 57 L 57 L Pulse Rhythm Respiratory Rate Respiratory Effort / Characteristics Respiratory Depth Blood Pressure 161/70 H Blood Pressure Mean 100 Pulse Oximetry 95 94 Oxygen Delivery Method 09/18/18 09:37 09/18/18 09:58 09/18/18 10:00 Temperature Temperature Source Sepsis Recent Fever Within 48 Hours Sepsis Action Taken by Nursing Pulse Rate 61 Pulse Rate [Apical] 72 Pulse Rate from SpO2 Sensor 58 L Pulse Rhythm Regular Respiratory Rate 16 Respiratory Effort / Characteristics Non-Labored Spontaneous Respiratory Depth Blood Pressure Blood Pressure Mean Pulse Oximetry 95 95 100 Oxygen Delivery Method Room Air Room Air 09/18/18 10:01 Temperature Temperature Source Sepsis Recent Fever Within 48 Hours Sepsis Action Taken by Nursing Pulse Rate 61 Pulse Rate [Apical] Pulse Rate from SpO2 Sensor 62 Pulse Rhythm Respiratory Rate Respiratory Effort / Characteristics Respiratory Depth Blood Pressure 164/85 H Blood Pressure Mean 111 Pulse Oximetry 100 Oxygen Delivery Method GENERAL: Awake, alert, well-appearing, in no acute distress HENT: Normocephalic, atraumatic. Oropharynx unremarkable. EYES: Normal conjunctiva. Sclera non-icteric. NECK: Supple. No nuchal rigidity. FROM. No JVD. RESPIRATORY: Clear to auscultation. CARDIAC: Regular rate, normal rhythm. Extremities warm and well perfused. Pulses equal. ABDOMEN: Soft, non-distended. No tenderness to palpation. No rebound or guarding. No masses. RECTAL: Deferred. MUSCULOSKELETAL: Chest examination reveals no tenderness. The back is symmetrical on inspection without obvious abnormality. There is no CVA tenderness to palpation. No joint edema. LOWER EXTREMITIES: Calves are equal size bilaterally and non-tender. No edema. No discoloration. NEURO: Normal sensorium. No sensory or motor deficits noted. SKIN: No rash or jaundice noted. Course 0858: The patient is in CT. 09: I discussed the patients case with Dr. Parr [place] [facility] [place] [facility]. 09: Past medical records reviewed. The patient was evaluated in room A1. A complete history and physical examination was performed. 0934: I discussed the patients case with ANNA Cole Hospitalist. She, in conjunction with Dr. Reyes, will evaluate the patient for further management. 0939: I reviewed the patients case with Dr. James Hannah Neurosurgery. He recommends admission of the patient. Administered Medications Gadobutrol (Gadavist 65ml) 8 ml IV ONCE PRN PRN Reason: Interaction Checking Stop: 09/22/18 16:40 Last Admin: 09/18/18 16:42 Dose: 8 ml Documented by: [id number] Heparin Sodium (Porcine) (Heparin Sodium (Porcine)) 5,000 units SQ Q8 MOLINA Stop: 10/18/18 13:59 Last Admin: 09/19/18 06:07 Dose: 5,000 units Documented by: [id number] Cosigned by: [id number] Admin: 09/18/18 21:05 Dose: 5,000 units Documented by: [id number] Cosigned by: [id number] Admin: 09/18/18 14:32 Dose: 5,000 units Documented by: [id number] Cosigned by: [id number] Hydralazine HCl (Apresoline) 10 mg PO BID MOLINA Stop: 10/18/18 20:59 Last Admin: 09/18/18 21:04 Dose: 10 mg Documented by: [id number] Ipratropium [place] (Atrovent 0.02% 0.5mg/2.5ml) 0.5 mg INH Q6R MOLINA Stop: 10/18/18 13:59 Last Admin: 09/19/18 07:06 Dose: 0.5 mg Documented by: [id number] Admin: 09/19/18 01:27 Dose: 0.5 mg Documented by: [id number] Admin: 09/18/18 19:47 Dose: 0.5 mg Documented by: [id number] Admin: 09/18/18 14:22 Dose: 0.5 mg Documented by: [id number] Levalbuterol HCl (Xopenex 0.63 Mg/3 Ml Neb) 0.63 mg NEB Q6R MOLINA Stop: 10/18/18 13:59 Last Admin: 09/19/18 07:06 Dose: 0.63 mg Documented by: [id number] Admin: 09/19/18 01:27 Dose: 0.63 mg Documented by: [id number] Admin: 09/18/18 19:47 Dose: 0.63 mg Documented by: [id number] Admin: 09/18/18 14:22 Dose: 0.63 mg Documented by: [id number] Metoprolol Tartrate (Lopressor) 100 mg PO BID MOLINA Stop: 10/18/18 20:59 Last Admin: 09/18/18 21:04 Dose: 100 mg Documented by: [id number] Discontinued Medications Aspirin (Aspirin) 324 mg PO NOW STA Stop: 09/18/18 09:29 Last Admin: 09/18/18 09:46 Dose: 324 mg Documented by: [id number] Clopidogrel Bisulfate (Plavix) 75 mg PO 1630 ONE Stop: 09/18/18 16:31 Last Admin: 09/18/18 17:09 Dose: 75 mg Documented by: [id number] Magnesium Sulfate/Dextrose (Magnesium Sulfate / D5w) 1 gm in 100 mls @ 100 mls/hr IV ONE ONE Stop: 09/18/18 10:27 Last Infusion: 09/18/18 12:20 Dose: 0 mls/hr Documented by: [id number] Admin: 09/18/18 10:35 Dose: 100 mls/hr Documented by: [id number] Levofloxacin/Dextrose (Levaquin/D5w) 750 mg in 150 mls @ 100 mls/hr IV NOW STA Stop: 09/18/18 10:57 Last Infusion: 09/18/18 11:16 Dose: 0 mls/hr Documented by: [id number] Admin: 09/18/18 09:46 Dose: 100 mls/hr Documented by: [id number] Sodium Chloride (Nss 1000ml) 1,000 mls @ 999 mls/hr IV .Q1H1M ONE Stop: 09/18/18 10:30 Last Infusion: 09/18/18 10:35 Dose: 0 mls/hr Documented by: [id number] Admin: 09/18/18 09:46 Dose: 999 mls/hr Documented by: [id number] Piperacillin Sod/Tazobactam Sod (Zosyn) 4.5 gm in 120 mls @ 240 mls/hr IV NOW ONE Stop: 09/18/18 09:57 Last Infusion: 09/18/18 10:17 Dose: 0 mls/hr Documented by: [id number] Admin: 09/18/18 09:46 Dose: 240 mls/hr Documented by: [id number] Ioversol (Optiray 320 125ml) 120 ml IV ONCE PRN PRN Reason: Interaction Checking Stop: 09/22/18 09:02 Last Admin: 09/18/18 09:03 Dose: 120 ml Documented by: [id number] Levalbuterol HCl (Xopenex 1.25mg/3ml Neb) 1.25 mg NEB NOW STA Stop: 09/18/18 09:31 Last Admin: 09/18/18 09:58 Dose: 1.25 mg Documented by: [id number] Medical Decision Making Differential Diagnosis Differential Diagnosis includes but is not limited to ischemic stroke, hemorr hagic stroke, bells palsy, mass, neoplasm, migraine headache, seizure, subarachnoid hemorrhage, TIA, and transient global amnesia. Medical Records Attestation: I reviewed the patient's medical records. Home Medications Current Medication List: was personally reviewed by me Laboratory Data Attestation: I reviewed the patient's lab results. Result diagrams: 09/18/18 09:12 09/18/18 09:12 Lab Results 09/18/18 09/18/18 09/18/18 Range/Units 09:12 09:12 09:12 WBC 10.11 (4.8-10.8) K/uL RBC 4.73 (4.7-6.1) M/uL Hgb 15.8 (14.0-18.0) g/dL POC Hgb (14.0-18.0) g/dl Hct 45.6 (42-52) % POC Hct (42-52) % MCV 96.4 (80-100) fL MCH 33.4 (25-34) pg MCHC 34.6 (32-36) g/dL RDW Std Deviation 52.6 H (36.4-46.3) fL RDW Coeff of Chaka 14.8 H (11.5-14.5) % Plt Count 207 (130-400) K/uL MPV 9.8 (7.4-10.4) fL Immature Gran % (Auto) 0.1 % Neut % (Auto) 77.5 % Lymph % (Auto) 10.7 % [place] % (Auto) 10.8 % Eos % (Auto) 0.6 % Baso % (Auto) 0.3 % Immature Gran # (Auto) 0.01 (0.00-0.02) K/uL Neut # (Auto) 7.84 H (1.4-6.5) K/uL Lymph # (Auto) 1.08 L (1.2-3.4) K/uL [place] # (Auto) 1.09 H (0.11-0.59) K/uL Eos # (Auto) 0.06 (0-0.5) K/uL Baso # (Auto) 0.03 (0-0.2) K/uL PT 10.9 (9.0-12.0) Seconds INR 1.1 (0.9-1.1) APTT 27.8 (21.0-31.0) Seconds PTT Ratio 1.0 POC Sodium (135-144) mEq/L Sodium 127 L (136-145) mmol/L POC Potassium (3.3-5.0) mEq/L Potassium 4.6 (3.5-5.1) mmol/L POC Chloride (101-112) mEq/L Chloride 94 L (98-107) mmol/L Carbon Dioxide 24 (21-32) mmol/L POC Total CO2 (24-31) mEq/l Anion Gap 9.0 (3-11) POC Anion Gap (16-25) mmol/L POC BUN (7-18) mg/dl BUN 20 H (7-18) mg/dl Creatinine 1.49 H (0.6-1.4) mg/dl POC Creatinine (0.6-1.3) mg/dl Est Cr Clr Drug Dosing 45.5 ml/min Est GFR ( Amer) 54.3 Est GFR (Non-Af Amer) 46.9 BUN/Creatinine Ratio 13.4 (10-20) Glucose 95 (70-99) mg/dl POC Glucose (other) (70-99) mg/dl Calcium 9.2 (8.5-10.1) mg/dl POC Ioniz Calcium Maria G (1.12-1.32) mmol/l Magnesium 2.0 (1.8-2.4) mg/dl Total Bilirubin 0.9 (0.2-1) mg/dl AST 19 (15-37) U/L ALT 14 (12-78) U/L Alkaline Phosphatase 84 (45-117) U/L Troponin I < 0.015 (0-0.045) ng/ml Total Protein 7.6 (6.4-8.2) gm/dl Albumin 2.9 L (3.4-5.0) gm/dl Globulin 4.7 H (2.5-4.0) gm/dl Albumin/Globulin Ratio 0.6 L (0.9-2) 09/18/18 Range/Units 09:27 WBC (4.8-10.8) K/uL RBC (4.7-6.1) M/uL Hgb (14.0-18.0) g/dL POC Hgb 16.7 (14.0-18.0) g/dl Hct (42-52) % POC Hct 49 (42-52) % MCV (80-100) fL MCH (25-34) pg MCHC (32-36) g/dL RDW Std Deviation (36.4-46.3) fL RDW Coeff of Chaka (11.5-14.5) % Plt Count (130-400) K/uL MPV (7.4-10.4) fL Immature Gran % (Auto) % Neut % (Auto) % Lymph % (Auto) % [place] % (Auto) % Eos % (Auto) % Baso % (Auto) % Immature Gran # (Auto) (0.00-0.02) K/uL Neut # (Auto) (1.4-6.5) K/uL Lymph # (Auto) (1.2-3.4) K/uL [place] # (Auto) (0.11-0.59) K/uL Eos # (Auto) (0-0.5) K/uL Baso # (Auto) (0-0.2) K/uL PT (9.0-12.0) Seconds INR (0.9-1.1) APTT (21.0-31.0) Seconds PTT Ratio POC Sodium 128 L (135-144) mEq/L Sodium (136-145) mmol/L POC Potassium 4.6 (3.3-5.0) mEq/L Potassium (3.5-5.1) mmol/L POC Chloride 93 L (101-112) mEq/L Chloride (98-107) mmol/L Carbon Dioxide (21-32) mmol/L POC Total CO2 23 L (24-31) mEq/l Anion Gap (3-11) POC Anion Gap 18.0 (16-25) mmol/L POC BUN 20 H (7-18) mg/dl BUN (7-18) mg/dl Creatinine (0.6-1.4) mg/dl POC Creatinine 1.4 H (0.6-1.3) mg/dl Est Cr Clr Drug Dosing ml/min Est GFR ( Amer) Est GFR (Non-Af Amer) BUN/Creatinine Ratio (10-20) Glucose (70-99) mg/dl POC Glucose (other) 99 (70-99) mg/dl Calcium (8.5-10.1) mg/dl POC Ioniz Calcium Maria G 1.08 L (1.12-1.32) mmol/l Magnesium (1.8-2.4) mg/dl Total Bilirubin (0.2-1) mg/dl AST (15-37) U/L ALT (12-78) U/L Alkaline Phosphatase (45-117) U/L Troponin I (0-0.045) ng/ml Total Protein (6.4-8.2) gm/dl Albumin (3.4-5.0) gm/dl Globulin (2.5-4.0) gm/dl Albumin/Globulin Ratio (0.9-2) Imaging Data Radiologist's Impression: Radiology results as stated below per my review and the radiologist's interpretation: CT head/brain wo con CLINICAL HISTORY: 68 years-old Male with Stroke evaluation . Acute strokelike symptoms TECHNIQUE: Multiple axial CT images of the head were obtained without contrast. A dose lowering technique was utilized adhering to the principles of ALARA. COMPARISON: CT head 04/17/2018. FINDINGS: No acute intracranial hemorrhage, midline shift, intracranial mass, hyd rocephalus, or abnormal extra-axial collection. Age-related involutional changes. Encephalomalacia from remote infarct about the right frontal lobe redemonstrated. Scattered white matter hypodensities are suggestive of chronic microvascular ischemic disease. Cerebral vascular calcifications are noted. Senescent calcifications of the right lentiform nucleus. Ill-defined hypodensity with blurring of the bourgeois-white interface involves the left occipital lobe. This measures up to approximate 5.3 x 3.6 cm. Additionally, there is probable infarct extension into the posterior left parietal lobe, image 16 series 2. The calvarium is intact. Mastoid air cells and middle ear cavities are clear. Moderate mucosal thickening of the ethmoid air cells. Moderate to severe mucosal thickening of the visualized maxillary sinuses. The soft tissues and orbits are unremarkable. IMPRESSION: 1. Moderate sized acute appearing territorial infarct about the left parieto- occipital distribution. 2. No acute intracranial hemorrhage or midline shift. 3. Chronic findings as above. The above report was generated using voice recognition software. It may contain grammatical, syntax or spelling errors. Electronically signed by: Garret Degroot M.D. 09/18/2018 9:18 AM CTA ANGIOGRAPHY OF THE HEAD CLINICAL HISTORY: Visual disturbance. Difficulty walking. Stroke evaluation. COMPARISON STUDY: MRA of the head March 10, 2009. Head CT April 17, 2018. TECHNIQUE: Helical axial images of the head were obtained following uneventful intravenous administration of 120 cc of Optiray 320. Automated exposure control was utilized for the study. A dose lowering technique was utilized adhering to the principles of ALARA. FINDINGS: Please note that the CTA of the neck will be reported separately. No acute intracranial hemorrhage, midline shift or mass effect is present. Old right frontal lobe infarct is noted. There is hypodensity within the left occipital lobe which suggests an acute to subacute infarct. There is no significant mass effect. Ventricular system is unremarkable. The basilar cisterns are patent. Bilateral maxillary sinus air-fluid levels are noted. There is also mild ethmoid sinus mucosal thickening. The bilateral M1, M2, A1 and A2 segments are patent. There is no abrupt vessel cut off. There is extensive plaque within the bilateral cavernous carotids with mild stenosis. No intracranial aneurysm is identified. No abrupt vessel cut off within the posterior circulation is noted. IMPRESSION: 1. No intracranial aneurysm or abrupt vessel cut off. Extensive plaque within bilateral cavernous carotids with mild stenosis. 2. Hypodensity within the left occipital lobe which suggests an acute to subacute infarct. 3. Bilateral maxillary and ethmoid sinusitis, possibly acute. Electronically signed by: Filiberto Donahue M.D. 09/18/2018 9:30 AM XR chest 1V portable HISTORY: 68 years-old Male Pt c/o visual disturbance acute strokelike symptoms COMPARISON: Chest radiograph 02/20/2018, chest CT 01/22/2010 TECHNIQUE: Portable AP view of the chest FINDINGS: Cardiomediastinal and hilar silhouettes are unchanged. Chronic pleural parenchymal scarring about the left upper lung redemonstrated. There is no pneumothorax, large pleural effusion or overt pulmonary edema identified. Surgical clip projects over the abdominal left upper quadrant. Degenerative changes of the shoulders and spine. Calcification the thoracic aortic arch. IMPRESSION: Chronic changes as above without acute process. The above report was generated using voice recognition software. It may contain grammatical, syntax or spelling errors. Electronically signed by: Garret Degroot M.D. 09/18/2018 9:[address] angio neck with con CLINICAL HISTORY: 68 years-old Male presenting with Pt c/o trouble walking, aphasia, visual disturbance, concern for stroke. TECHNIQUE: Multidetector CT angiography of the neck was performed after the administration of intravenous contrast. 3-D volumetric and/or maximum intensity projection (MIP) images were subsequently reconstructed for review. IV contrast: 120 mL of Optiray 320. One or more dose lowering techniques were used cons istent with the principles of ALARA (as low as reasonably achievable), including automatic exposure control, mA or kV adjustment to individual patient size, and/or use of iterative reconstruction. Stenosis measurements were based on NASCET-like criteria (distal lumen diameter as the denominator for stenosis measurement). COMPARISON: None. CT DOSE (mGy.cm): The estimated cumulative dose is 1106.53 mGy.cm. FINDINGS: Donor Relations Manager topogram: Unremarkable. Aortic arch: Extensive calcified and noncalcified atherosclerotic plaque of the aortic arch, which is irregular and mildly ectatic measuring 4.4 cm in diameter in comparison to the partially visualized more distal aortic arch. The proximal aortic arch is nonocclusive within the [id number]. Innominate artery: The origin of the innominate is not included within the [id number]. Extensive atherosclerotic irregularity of the lumen of the inn ominate. Right subclavian artery: Patent. Right common carotid artery: Calcified and noncalcified atherosclerotic plaque primarily at the origin and proximal portion of the right common carotid artery. Right internal and external carotid arteries: Densely calcified carotid bifurcation predominantly involving the origin of the right internal carotid artery. The degree of heavily calcified plaque degrades accuracy of stenosis measurement. Allowing for this there is less than 30% stenosis resulting. Significant luminal irregularity of the proximal course of the right ICA with a second site of stenosis less than 40% at C3-4. External carotid artery widely patent. Left common carotid artery: Mild atherosclerotic irregularity of the common carotid artery. Left internal and external carotid arteries: Densely calcified atherosclerotic plaque as well as a lesser component of noncalcified plaque at the carotid bifurcation predominantly involving the origin of the left internal carotid artery. No resulting significant stenosis. Remainder of the course of the left ICA widely patent as is the left ECA. Left subclavian artery: Aneurysmal dilatation of the origin and proximal course of the left subclavian artery measuring 2.4 cm in diameter. Significant noncalcified atherosclerotic plaque results in severe luminal irregularity though there is less than 25% stenosis. The left subclavian artery returns to a normal caliber prior to the takeoff of the left vertebral artery. Vertebral arteries: Codominant vertebral arteries. Atherosclerotic plaque at the origin and proximal course of the right vertebral artery resulting in stenosis less than 50%. No stenosis of the origin of the left vertebral artery. Remainder of the courses of the bilateral vertebral arteries patent. Other: Extensive atherosclerotic plaque of the cavernous portions of the internal carotid arteries and minimally in the intradural portions of the vertebral arteries. Soft tissues of the neck normal allowing for the phase of contrast. Mild degenerative changes of the cervical spine. Opacification of the maxillary sinuses. Lung apices clear. IMPRESSION: 1. Aneurysmal dilatation of the aortic arch, which is only partially included within the [id number]. 2. 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 3. Extensive atherosclerosis without evidence of a severe stenosis in the cervical arteries. Stenoses less than 50% noted in the proximal right internal carotid artery and origin of the right vertebral artery. Electronically signed by: Santiago Hernandez M.D. 09/18/2018 9:38 AM ECG Data Attestation: I personally reviewed and interpreted this ECG as follows: Indication: other (stroke-like sx) Rate (beats per minute): 59 Rhythm: sinus bradycardia Findings: + T-wave inversion (inferior leads); no ST depression and no ST elevation Change: the following changes noted (20-FEB-2018) Blood Pressure Blood Pressure Findings: Normal blood pressure Blood Pressure Disposition: did not require urgent referral MDM Narrative This is a 68-year-old male who presents emergency department with weakness and dizziness that started yesterday. Because of this the patient was immediately sent for CAT scan as well as CTA of the head and neck. This was concerning for an acute CVA. In addition the patient also has sinusitis therefore he was pancultured and started on broad-spectrum antibiotics. He was given magnesium here in the emergency department along with aspirin. The case was discussed with neurology as well as the hospitalist service who agreed to admit the patient. Patient and are in agreement with the treatment plan. Impression & Plan CVA (cerebral vascular accident) Critical Care Time I have personally spent 30 minutes of critical care time in the direct management of this patient. This includes bedside care, interpretation of diagnostic studies, and testing, discussion with consultants, patient, and family members, and other required patient management activities. These 30 minutes are in excess of all separately billable procedures. Critical Care Time: Yes Total Critical Care Time: 30 Discharge Plan Visit Data *Final* Discharge Date/Time: 09/18/18 11:17 Chief Complaint: Visual Disturbance Stated Complaint: CAN'T SEE - VISION ISSUES ED Provider: Taiwo Dimas Discharge Problem: CVA (cerebral vascular accident) Patient Disposition: Admitted As Inpatient Discharge Instructions Interventions: ED Discharge Assessment Last Done: 09/18/18 11:17 Discharge Problem: CVA (cerebral vascular accident) Qualifiers: CVA mechanism: unspecified Qualified Code(s): I63.9 - Cerebral infarction, unspecified The scribe's documentation has been prepared under my direction and personally reviewed by me in its entirety. I confirm that the note above accurately reflects all work, treatment, procedures, and medical decision making performed by me.
--- NOTE | 2018-09-18 15:44 | XRay Report ---
XR chest 2V routine CLINICAL HISTORY: R/O fluid overload COMPARISON STUDY: Chest radiograph September 18, 2018 at 9:18 AM and chest radiograph February 20, 2018. FINDINGS: Left pleural calcification and scarring is chronic. This is unchanged. There is no pneumoth orax or pleural effusion. There is no evidence for pulmonary edema or pneumonia. Cardiomediastinal si lhouette is stable from earlier exams. Endoscopic clip projects over the proximal stomach. IMPRESSION: No acute cardiopulmonary findings. No change in appearance of the chest. Electronically signed by: Filiberto Donahue M.D. 09/18/2018 3:43 PM
[2018-09-18] MEDS ORDERED: CLOPIDOGREL BISULFATE 75 MG TAB PO ONE (16:30)
[2018-09-18] MEDS ORDERED: GADOBUTROL 65ML VIAL IV PRN (16:41)
--- NOTE | 2018-09-18 16:53 | Magnetic Resonance Report ---
MRI OF THE BRAIN COMBO CLINICAL HISTORY: Strokelike symptoms. COMPARISON STUDY: CT of the brain dated 09/18/2018. TECHNIQUE: MRI of the brain was performed utilizing various T1 and T2-weighted sequences in the axial , sagittal, and coronal planes. Contrast-enhanced sequences were acquired following the administratio n of 8 cc of Gadavist. The examination is modestly degraded by motion artifact. FINDINGS: Brain parenchyma: There is restricted diffusion identified throughout the left occipital lobe consist ent with acute to subacute ischemia. No additional foci of restricted diffusion are identified. Right frontal encephalomalacia is consistent with a remote infarct. Small chronic lacunar infarcts identif ied within the right cerebellar hemisphere and the right caudate head. There is age-related involutio nal change noting moderate subcortical and periventricular microangiopathic disease. There is no hemo rrhage or mass effect. No enhancing mass lesion is identified on the postcontrast images. No extra- axial fluid collection is seen. The cerebellar tonsils are normal in configuration. Ventricles, sulci, and cisterns: Prominent secondary to involutional change. Pituitary and sella: Unremarkable. Intracranial vasculature: Normal flow voids are maintained at the skull base. Orbits: The bony orbits are grossly intact. Orbital contents are normal in appearance. Sinuses and mastoids: There is nearly opacification of the maxillary antra. Advanced mucosal thickeni ng is also seen within the ethmoid sinuses. Mild mucosal thickening is noted in the frontal sinuses. Mastoid air cells are clear. Calvarium: Unremarkable. Cervical cord: Partially visualized cervical spinal cord is normal in morphology and signal intensity . IMPRESSION: 1. Restricted diffusion throughout the left occipital lobe is consistent with an acute to subacute PC A territory infarct. 2. No additional foci of acute ischemia are identified. 3. There is no hemorrhage or mass effect. 4. Senescent change and remote infarcts as above. Electronically signed by: Osmany George M.D. 09/18/2018 4:52 PM
[2018-09-18] MEDS: HydrALAZINE 10 MG TAB PO SCH (21:04)
[2018-09-18] MEDS: METOPROLOL TARTRATE 50 MG TAB PO SCH (21:04)
[2018-09-19] MEDS: LEVALBUTEROL HCL 0.63 MG/3 ML NEB NEB SCH ×4 (01:27→19:01)
[2018-09-19] MEDS: IPRATROPIUM BROMIDE NEB SOLN 0.02% 2.5 ML VIAL INH SCH ×4 (01:27→19:01)
[2018-09-19] MEDS: HEPARIN SOD 5,000 UNIT/0.5 ML VIAL SQ SCH ×3 (06:07→21:05)
--- NOTE | 2018-09-19 07:18 | Hospitalist Progress Note ---
Date of Service September 19, 2018 Assessment & Plan (1) CVA (cerebral vascular accident): Pt presented to ER with blurry vision, NAILS, difficulty walking that was noted upon awakening on 09/17/18 . Reported elevated BP 180s/90s yesterday and was having some word finding difficulty. Today in ER patient complains of continued blurry vision, dizziness and ambulatory difficulty. Denies any current headache, vision loss, diplopia, paresthesias or extremity weakness. In ER BP 117/67, 161/70 CT HEAD:Moderate sized acute appearing territorial infarct about the left parieto-occipital distribution. No acute intracranial hemorrhage or midline shift. CTA HEAD: No intracranial aneurysm or abrupt vessel cut off. Extensive plaque within bilateral cavernous carotids with mild stenosis. Hypodensity within the left occipital lobe which suggests an acute to subacute infarct. CTA NECK: Aneurysmal dilatation of the aortic arch, which is only partially included within the [id number]. 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 Extensive atherosclerosis without evidence of a severe stenosis in the cervical arteries. Stenoses less than 50% noted in the proximal right internal carotid artery and origin of the right vertebral artery. -In ER was given aspirin 324mg po -+runs of Vt -troponin negative -lipids and A1C -MRI brain-+Parietoccipital Infarct in ENGINEERING SURVEYOR territory -echo Moderate -aspiration precautions -PT/OT consult -continue statin, aspirin -neurology on case (2) Sinusitis: (3) Bronchitis: Patient with reported sinus congestion, rhinorrhea, productive clear-white cough and wheezing x1 month. Reported completion amoxicillin outpatient last month In ER R: 20, 94% on room air. Initial CXR: No acute changes In ER patient was given 1L NSS, magnesium 1 g IV, Xopenex nebulizer, Zosyn, Levaquin CT head with noted bilateral maxillary and ethmoid sinusitis, possibly acute Noted diffuse wheezing throughout on admission. -Obtain repeat chest x-ray to rule out volume overload, hold on further IVF at this time -Xopenex/Atrovent nebulizer treatments -Levaquin (4) Hypertension: BP: 161/70 -continue metoprolol, amlodipine, hydralazine (5) AAA (abdominal aortic aneurysm): S/P AAA repair in 2008 (6) CKD (chronic kidney disease), stage III: Cr:1.49. Baseline ~1.4 -Monitor renal function -Avoid nephrotoxic agents and possible (7) Hyperlipidemia: -Continue statin DVT Prophylaxis -Heparin SQ Full Code as per discussion with pt Follows with Dr Kingston for routine care ROS-No Headache, +Visual Changes, No Nausea, No Vomiting, No Fever, No Chills, No Neck Pain or Stiffness, No Chest Pain, No Palpitations, No SOB, No CAMARENA, No Cough, No Sputum, No Wheezing, No Abdominal Pain, No Diarrhea, No Hematemesis, No Hemoptysis, No Unexpected Weight Loss, No Flank pain, No Melena, No H ematochezia, No Frequency, No Urgency, No Burning, No Hematuria, No Rashes, No Diaphoresis. Appetite is Normal Physical Exam Gen-AAO x 3, NAD, Afebrile, [place] Head-NCAT, EOMI, PERRLA, Anicteric Sclera, No Posterior Pharyngeal Erythema, Possible R Hemianopsia Neck-Supple, No JVD, No Thyromegaly, No Masses, No LAD, + L>R Bruits Lungs-Clear to Auscultation Bilaterally, No Rales, No Rhonchi, +Wheezing, No Crepitus Chest-No S4, +S1, +S2, No S3, No Murmurs, No Rubs, No Gallops, No Ectopy Abdomen-Soft, Bowel Sounds Present, Non Tender, Non Distended, No Hepatomegaly, No Splenomegaly, No Palpable Masses, No Rebound, No Rigidity, No Guarding Musculoskeletal-Full Range of Motion Bilaterally, No CVAT Extremities-No Cyanosis, No Clubbing, No Edema Nuero-Cranial Nerves II-XII grossly intact, Motor WNL, DTRs WNL, Strength WNL, Non Focal Psych-Normal Mood Results & Data Vital Signs (Past 12 Hours) Vital Signs Temp Pulse Pulse Resp BP BP Pulse Ox 09/19/18 07:10 70 18 90 09/19/18 04:53 36.8 C 72 18 138/74 91 09/19/18 01:27 71 16 90 09/19/18 00:00 64 09/18/18 23:37 37 C 51 L 18 165/85 H 95 09/18/18 21:02 79 125/73 09/18/18 19:47 73 16 93 Labs checked (1) CVA (cerebral vascular accident) CVA mechanism: unspecified Qualified Code(s): I63.9 - Cerebral infarction, unspecified
[2018-09-19 08:04] LABS: Calcium 9.1 mg/dl (8.5-10.1); Creatinine Clr Calc Pharmacy 49.2 ml/min; Est GFR (African American) 66.5; Est GFR (Non-African American) 57.4
[2018-09-19 08:15] LABS: Prostate Specific Antigen 0.529 ng/ml (0-4)
[2018-09-19 08:51] LABS: Basophils # (auto) 0.04 K/uL (0-0.2); Basophils % (auto) 0.5 %; Eosinophils # (auto) 0.16 K/uL (0-0.5); Eosinophils % (auto) 1.9 %; Hematocrit (blood only) 42.2 % (42-52); Hemoglobin 14.6 g/dL (14.0-18.0); Immature Granulocytes # (auto) 0.01 K/uL (0.00-0.02); Immature Granulocytes % (auto) 0.1 %; Lymphocytes # (auto) 1.17 K/uL (1.2-3.4); Mean Corpuscular Volume 95.3 fL (80-100); Mean Platelet Volume 10.7 fL (7.4-10.4); Monocytes # (auto) 1.05 K/uL (0.11-0.59); Monocytes % (auto) 12.6 %; Neutrophils % (auto) 70.9 %; Platelet Count 139 K/uL (130-400); RDW Coefficient of Variation 14.8 % (11.5-14.5); Red Blood Count 4.43 M/uL (4.7-6.1); White Blood Count 8.33 K/uL (4.8-10.8)
[2018-09-19] MEDS ORDERED: ASPIRIN 81 MG ECTAB PO SCH (09:00)
[2018-09-19 09:03] LABS: Mean Corpuscular Hgb Conc 34.6 g/dL (32-36)
[2018-09-19] MEDS: HydrALAZINE 10 MG TAB PO SCH ×2 (09:12→21:05)
[2018-09-19] MEDS: FLUTICASONE PROPIONATE NA SPR 16 GM BTL NAE SCH (09:12)
[2018-09-19] MEDS: ATORVASTATIN 40 MG TAB PO SCH (09:13)
[2018-09-19] MEDS: FOLIC ACID 1 MG TAB PO SCH (09:13)
[2018-09-19] MEDS: MULTIVITAMIN TAB PO SCH (09:14)
[2018-09-19] MEDS: METOPROLOL TARTRATE 50 MG TAB PO SCH ×2 (09:14→21:04)
[2018-09-19] MEDS: AMLODIPINE BESYLATE 5 MG TAB PO SCH (09:14)
[2018-09-19] MEDS: CLOPIDOGREL BISULFATE 75 MG TAB PO SCH (09:15)
[2018-09-19] MEDS: THIAMINE HCL 100 MG TAB PO SCH (09:15)
[2018-09-19 09:58] LABS: Estimated Average Glucose 120 mg/dl; Hemoglobin A1C 5.8 % (4.5-5.6)
[2018-09-19] MEDS: LEVOFLOXACIN/D5W 500 MG/100 ML BAG IV SCH (10:53)
--- NOTE | 2018-09-19 12:18 | Gastrointestinal Consultation ---
Date of Consultation September 19, 2018 Assessment & Plan (1) History of GI bleed: 68 year old male admitted w/ CVA started on Plavix - GI asked to weigh in on senior living use of AC given history of significant GIB from AVM in February. He has been doing clinically well from a GI standpoint without evidence of anemia, BUN elevation or recurrent evidence of GIB. - Discussed risks and benefits of holding/using AC - Potential respiratory, cardiac, neurologic events and recurrent episodes of GIB - Pt and verbalized understanding. - No current GI contraindication to AC use given acute CVA - HGB stable - BUN normal - No active evidence of GIB - If joint terminal attack controller AC is indicated, would recommend ongoing use of PO PPI 20 mg daily - Will discuss with attending. GI to sign off. Thank you for allowing us to participate in the care of this patient. Please call with any acute changes, questions or concerns. Please see addendum below with additional recommendation from my supervising physician. Present on Admission?: No Supervising Physician Co-Signing Physician Notes I have seen and examined the patient with YARA Braxton whose note reflects our findings and plan. History of Present Illness Reason for Consultation: history of GIB, need to start AC Requesting Physician: Amy Attending Physician: Torey Reyes DO History of Present Illness 68 year old male with history of HTN, dyslipidemia, AAA s/p, GIB in fall w/ AVM who presented through the ED for evaluation of NAILS, blurry vision, dizziness - CT head w/ left parietoccipital infarct MR w/ diffusion throughout the left occipital lobe is consistent with an acute to subacute STARCH [employer] MIXER territory infarct w/o evidence of hemorrhage or mass effect. GI asked to weigh in on use of antic oagulation given recent UGI bleed. Notes since endoscopy in February has been feeling well. No abd pain. No nausea, vomiting. Brown stools daily. No black or bloody stools. NSAIDs: ASA daily AC: to start ETOH:beer CTA: Advanced atherosclerotic change with evidence of previous graft repair of an infrarenal abdominal aortic aneurysm.The abdominal aorta is widely patent. There is a 3.7 x 3.7 cm aneurysm of the proximal abdominal aorta at the level of the renal arteries. 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 No additional foci of active extravasation are clearly identified. 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 Moderate to advanced sigmoid diverticulosis without CT evidence of acute diver ticulitis. Cardiomegaly. EGD 2018: Normal esophagus. Z-line regular. An area of bleeding was noted in the proximal stomach. Normal stomach. Normal duodenal bulb and second portion of the duodenum. Colonoscopy 2018: adenomatous polyps Surgery Hx: Open repair of the AAA juxtarenal abdominal aortic aneurysm with tube graft in 2008; colonoscopy, Lumbar spine excision surgery, tonsillectomy Allergies Allergy/AdvReac Type Severity Reaction Status Date / Time lisinopril Allergy Intermediate BP DROP Unverified 09/18/18 09:23 clopidogrel AdvReac Unknown HEART PALP. Verified 09/18/18 09:23 Home Medications Home Medications Medication Instructions Recorded Confirmed Type allopurinol 300 mg PO DAILY PRN 02/20/18 09/18/18 History amlodipine 10 mg PO QAM 02/20/18 09/18/18 History atorvastatin 40 mg PO QAM 02/20/18 09/18/18 History metoprolol tartrate 100 mg PO BID 02/20/18 09/18/18 History hydralazine 10 mg PO BID 04/17/18 09/18/18 History aspirin 81 mg PO QAM 09/18/18 09/18/18 History fluticasone propionate 2 spray INTRANASAL QAM 09/18/18 09/18/18 History folic acid 1 mg PO QAM 09/18/18 09/18/18 History ibuprofen [Advil] 200 mg PO Q6H PRN 09/18/18 09/18/18 History multivitamin 1 tab PO QAM 09/18/18 09/18/18 History thiamine HCl (vitamin B1) [Vitamin 100 mg PO QAM 09/18/18 09/18/18 History B-1] Patient History Medical History CKD (chronic kidney disease), stage III (Chronic) Gout (Chronic) Hyperlipidemia (Chronic) Acute kidney injury superimposed on chronic kidney disease (Resolved) Hypertension (Chronic) Acute blood loss anemia (Resolved) GI bleed (Resolved) AAA (abdominal aortic aneurysm) (Chronic) S/P repair Surgical History Hx of hernia repair (Chronic) lysis of adhesions, incisional hernia repair laparoscopically 01/28/2010 at [facility] - Dr Desouza History of tonsillectomy and adenoidectomy (Chronic) History of lumbar surgery (Chronic) 1999 S/P AAA repair (Chronic) 01/13/2009 - Dr Suazo Hx of colonoscopy (Chronic) Family History Other AAA (abdominal aortic aneurysm) Hypertension Social History Preferred Language: Portuguese Communication Ability: Effective Pond Scaler Required: No Beliefs That Will Affect Care: None marital status: Current Living Situation: Spouse current occupational status: employed Other Information That Helps Us Care for You: No Feels Safe at Home: Yes Safety Concerns: Feels Safe At This Time Smoking Status: Current every day smoker Tobacco Type: cigars Cigarettes Per Day: Former cigarette. Quit 1998 Hx Alcohol Use: Yes Alcohol type: beer Alcohol Intake Frequency Comment: Last drink 2 days ago Hx Substance Use: No Review of Systems Constitutional: no fever and no chills Respiratory: no cough and no chest congestion Cardiovascular: no chest pain, no chest pain at rest and no dyspnea Gastrointestinal: no abdominal pain, no belching, no nausea, no coffee ground emesis, no hematemesis, no blood in stools and no melena Physical Exam Constitutional: WD/WN, vitals as above Respiratory: normal respiratory effort Cardiovascular: Rate/Rhythm: regular rate and regular rhythm Gastrointestinal (Abdomen): Inspection/Auscultation: abdomen not distended Percussion/Palpation: abdomen soft; abdomen nontender, no guarding and abdomen not rigid Skin: no rashes, warm and dry Results & Data Vital Signs (Past 12 Hours) Vital Signs Temp Pulse Resp BP BP Pulse Ox 09/19/18 08:13 37.0 C 67 20 122/75 94 09/19/18 07:10 70 18 90 09/19/18 04:53 36.8 C 72 18 138/74 91 09/19/18 01:27 71 16 90 Laboratory Results 06/04/19 06/04/19 06/04/19 Range/Units Unknown Unknown 06:44 WBC 8.33 RBC 4.43 L Hgb 14.6 Hct 42.2 MCV 95.3 MCH 33.0 MCHC 34.6 RDW Std Deviation 52.0 H RDW Coeff of Chaka 14.8 H Plt Count 139 MPV 10.7 H Immature Gran % (Auto) 0.1 Neut % (Auto) 70.9 Lymph % (Auto) 14.0 [place] % (Auto) 12.6 Eos % (Auto) 1.9 Baso % (Auto) 0.5 Immature Gran # (Auto) 0.01 Neut # (Auto) 5.90 Lymph # (Auto) 1.17 L [place] # (Auto) 1.05 H Eos # (Auto) 0.16 Baso # (Auto) 0.04 Absolute Nucleated RBC Nucleated RBC % (auto) Neutrophils % (Manual) Band Neutrophils % Lymphocytes % (Manual) Prolymphocyte % Reactive Lymphs % (Man) Monocytes % (Manual) Eosinophils % (Manual) Basophils % (Manual) Metamyelocytes % (Man) Myelocytes % (Man) Promyelocytes % (Man) Blast Cells % (Manual) Plasma Cell % (Manual) Other Cells % Nucleated RBC % Neutrophils # (Manual) Band Neutrophils # Total Absolute Neuts Lymphocytes # (Manual) Prolymphocyte # Reactive Lymphs # Total Abs Lymphocytes Monocytes # (Manual) Eosinophils # (Manual) Basophils # (Manual) Metamyelocytes # (Man) Myelocytes # (Manual) Promyelocytes # (Man) Blast Cells # (Man) Plasma Cell # (Manual) Other Cells # Nucleated RBCs # (Man) Hypersegmented Neuts Hyposegmented Neuts Hypogranular Neuts Large Granular Lymphs # Lrg Granular Lymphs Hairy Cells Smudge Cells Toxic Granulation Toxic Vacuolation Dohle Bodies Ammy Rods Platelet Estimate Hypogranular Platelets Clumped Platelets Giant Platelets Platelet Satelliting RBC Morphology Polychromasia Hypochromasia Poikilocytosis Basophilic Stippling Anisocytosis Microcytosis Macrocytosis Spherocytes Pappenheimer Bodies Sickle Cells Target Cells Tear Drop Cells Ovalocytes Stomatocytes [place] Bodies Echinocytes Acanthocytes (Spur) Rouleaux RBC Agglutinates Schistocytes RBC Morph Comment Sezary Cell Sodium (136-145) mmol/L Potassium (3.5-5.1) mmol/L Chloride (98-107) mmol/L Carbon Dioxide (21-32) mmol/L Anion Gap (3-11) BUN (7-18) mg/dl Creatinine (0.6-1.4) mg/dl Est Cr Clr Drug Dosing ml/min Est GFR ( Amer) Est GFR (Non-Af Amer) BUN/Creatinine Ratio (10-20) Glucose (70-99) mg/dl Estimat Average Glucose mg/dl Hemoglobin A1c (4.5-5.6) % Osmolality (280-300) mOsm/kg Calcium (8.5-10.1) mg/dl Troponin I (0-0.045) ng/ml Triglycerides (0-150) mg/dl Cholesterol (0-200) mg/dl LDL Cholesterol, Calc mg/dl VLDL Cholesterol, Calc mg/dl HDL Cholesterol mg/dl Cholesterol/HDL Ratio Prostate Specific Ag (0-4) ng/ml TSH (0.300-4.500) uIu/ml Urine Osmolality Pending Urine Sodium Pending Urine Potassium Pending Urine Chloride Pending 09/19/18 09/19/18 09/19/18 Range/Units 06:44 06:44 06:44 WBC RBC Hgb Hct MCV MCH MCHC RDW Std Deviation RDW Coeff of Chaka Plt Count MPV Immature Gran % (Auto) Neut % (Auto) Lymph % (Auto) [place] % (Auto) Eos % (Auto) Baso % (Auto) Immature Gran # (Auto) Neut # (Auto) Lymph # (Auto) [place] # (Auto) Eos # (Auto) Baso # (Auto) Absolute Nucleated RBC Nucleated RBC % (auto) Neutrophils % (Manual) Band Neutrophils % Lymphocytes % (Manual) Prolymphocyte % Reactive Lymphs % (Man) Monocytes % (Manual) Eosinophils % (Manual) Basophils % (Manual) Metamyelocytes % (Man) Myelocytes % (Man) Promyelocytes % (Man) Blast Cells % (Manual) Plasma Cell % (Manual) Other Cells % Nucleated RBC % Neutrophils # (Manual) Band Neutrophils # Total Absolute Neuts Lymphocytes # (Manual) Prolymphocyte # Reactive Lymphs # Total Abs Lymphocytes Monocytes # (Manual) Eosinophils # (Manual) Basophils # (Manual) Metamyelocytes # (Man) Myelocytes # (Manual) Promyelocytes # (Man) Blast Cells # (Man) Plasma Cell # (Manual) Other Cells # Nucleated RBCs # (Man) Hypersegmented Neuts Hyposegmented Neuts Hypogranular Neuts Large Granular Lymphs # Lrg Granular Lymphs Hairy Cells Smudge Cells Toxic Granulation Toxic Vacuolation Dohle Bodies Ammy Rods Platelet Estimate Hypogranular Platelets Clumped Platelets Giant Platelets Platelet Satelliting RBC Morphology Polychromasia Hypochromasia Poikilocytosis Basophilic Stippling Anisocytosis Microcytosis Macrocytosis Spherocytes Pappenheimer Bodies Sickle Cells Target Cells Tear Drop Cells Ovalocytes Stomatocytes [place] Bodies Echinocytes Acanthocytes (Spur) Rouleaux RBC Agglutinates Schistocytes RBC Morph Comment Sezary Cell Sodium 134 L D (136-145) mmol/L Potassium 4.0 (3.5-5.1) mmol/L Chloride 100 (98-107) mmol/L Carbon Dioxide 23 (21-32) mmol/L Anion Gap 11.0 (3-11) BUN 16 (7-18) mg/dl Creatinine 1.26 (0.6-1.4) mg/dl Est Cr Clr Drug Dosing 49.2 ml/min Est GFR ( Amer) 66.5 Est GFR (Non-Af Amer) 57.4 BUN/Creatinine Ratio 13.0 (10-20) Glucose 91 (70-99) mg/dl Estimat Average Glucose 120 mg/dl Hemoglobin A1c 5.8 H (4.5-5.6) % Osmolality 274 L (280-300) mOsm/kg Calcium 9.1 (8.5-10.1) mg/dl Troponin I (0-0.045) ng/ml Triglycerides 102 (0-150) mg/dl Cholesterol 147 (0-200) mg/dl LDL Cholesterol, Calc 79 mg/dl VLDL Cholesterol, Calc 20 mg/dl HDL Cholesterol 48 mg/dl Cholesterol/HDL Ratio 3 Prostate Specific Ag 0.529 (0-4) ng/ml TSH 3.530 (0.300-4.500) uIu/ml Urine Osmolality Urine Sodium Urine Potassium Urine Chloride 09/19/18 09/18/18 09/18/18 Range/Units 06:44 21:31 15:50 WBC Cancelled RBC Cancelled Hgb Cancelled Hct Cancelled MCV Cancelled MCH Cancelled MCHC Cancelled RDW Std Deviation Cancelled RDW Coeff of Chaka Cancelled Plt Count Cancelled MPV Cancelled Immature Gran % (Auto) Cancelled Neut % (Auto) Cancelled Lymph % (Auto) Cancelled [place] % (Auto) Cancelled Eos % (Auto) Cancelled Baso % (Auto) Cancelled Immature Gran # (Auto) Cancelled Neut # (Auto) Cancelled Lymph # (Auto) Cancelled [place] # (Auto) Cancelled Eos # (Auto) Cancelled Baso # (Auto) Cancelled Absolute Nucleated RBC Cancelled Nucleated RBC % (auto) Cancelled Neutrophils % (Manual) Cancelled Band Neutrophils % Cancelled Lymphocytes % (Manual) Cancelled Prolymphocyte % Cancelled Reactive Lymphs % (Man) Cancelled Monocytes % (Manual) Cancelled Eosinophils % (Manual) Cancelled Basophils % (Manual) Cancelled Metamyelocytes % (Man) Cancelled Myelocytes % (Man) Cancelled Promyelocytes % (Man) Cancelled Blast Cells % (Manual) Cancelled Plasma Cell % (Manual) Cancelled Other Cells % Cancelled Nucleated RBC % Cancelled Neutrophils # (Manual) Cancelled Band Neutrophils # Cancelled Total Absolute Neuts Cancelled Lymphocytes # (Manual) Cancelled Prolymphocyte # Cancelled Reactive Lymphs # Cancelled Total Abs Lymphocytes Cancelled Monocytes # (Manual) Cancelled Eosinophils # (Manual) Cancelled Basophils # (Manual) Cancelled Metamyelocytes # (Man) Cancelled Myelocytes # (Manual) Cancelled Promyelocytes # (Man) Cancelled Blast Cells # (Man) Cancelled Plasma Cell # (Manual) Cancelled Other Cells # Cancelled Nucleated RBCs # (Man) Cancelled Hypersegmented Neuts Cancelled Hyposegmented Neuts Cancelled Hypogranular Neuts Cancelled Large Granular Lymphs Cancelled # Lrg Granular Lymphs Cancelled Hairy Cells Cancelled Smudge Cells Cancelled Toxic Granulation Cancelled Toxic Vacuolation Cancelled Dohle Bodies Cancelled Ammy Rods Cancelled Platelet Estimate Cancelled Hypogranular Platelets Cancelled Clumped Platelets Cancelled Giant Platelets Cancelled Platelet Satelliting Cancelled RBC Morphology Cancelled Polychromasia Cancelled Hypochromasia Cancelled Poikilocytosis Cancelled Basophilic Stippling Cancelled Anisocytosis Cancelled Microcytosis Cancelled Macrocytosis Cancelled Spherocytes Cancelled Pappenheimer Bodies Cancelled Sickle Cells Cancelled Target Cells Cancelled Tear Drop Cells Cancelled Ovalocytes Cancelled Stomatocytes Cancelled [place] Bodies Cancelled Echinocytes Cancelled Acanthocytes (Spur) Cancelled Rouleaux Cancelled RBC Agglutinates Cancelled Schistocytes Cancelled RBC Morph Comment Cancelled Sezary Cell Cancelled Sodium (136-145) mmol/L Potassium (3.5-5.1) mmol/L Chloride (98-107) mmol/L Carbon Dioxide (21-32) mmol/L Anion Gap (3-11) BUN (7-18) mg/dl Creatinine (0.6-1.4) mg/dl Est Cr Clr Drug Dosing ml/min Est GFR ( Amer) Est GFR (Non-Af Amer) BUN/Creatinine Ratio (10-20) Glucose (70-99) mg/dl Estimat Average Glucose mg/dl Hemoglobin A1c (4.5-5.6) % Osmolality (280-300) mOsm/kg Calcium (8.5-10.1) mg/dl Troponin I < 0.015 < 0.015 (0-0.045) ng/ml Triglycerides (0-150) mg/dl Cholesterol (0-200) mg/dl LDL Cholesterol, Calc mg/dl VLDL Cholesterol, Calc mg/dl HDL Cholesterol mg/dl Cholesterol/HDL Ratio Prostate Specific Ag (0-4) ng/ml TSH (0.300-4.500) uIu/ml Urine Osmolality Urine Sodium Urine Potassium Urine Chloride
--- NOTE | 2018-09-19 14:29 | Cardiology Consultation ---
Date of Consultation September 19, 2018 Assessment & Plan (1) CVA (cerebral vascular accident): I recommended the patient that he stop smoking. He should also be on cholesterol medications. He is on atorvastatin as outpatient. Atrial arrhythmias need to be excluded. He has been in sinus rhythm since hospital admission. An outpatient monitor should be obtained. (2) S/P AAA repair: (3) CKD (chronic kidney disease), stage III: (4) History of GI bleed: Long-term anticoagulation will be a problem with the patient's recent history of GI bleeding. If okay with the GI service I would recommend antiplatelet therapy only at this time. (5) Aortic stenosis: By my exam believe that the aortic stenosis is mild. It certainly is asymptomatic. I do not believe that we need to do any further work-up at [facility]. I would recommend follow-up as an outpatient. History of Present Illness Attending Physician: Torey Reyes, History of Present Illness This is a 68-year-old male patient who was admitted with visual disturbances and diagnosed with a stroke. He has no prior history of heart disease and has not followed with a economics professor. He does have a history of cigarette smoking and in 2007 had an abdominal aortic aneurysm repair at [facility] in [place]. That was an open repair. 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 He has no history of atrial arrhythmias. No history of diabetes. He is treated for essential hypertension and does have chronic kidney disease at stage III. As part of the work-up for his stroke he had an echocardiogram and an incidental finding was aortic stenosis. I been asked to see him in regard to his stroke as well as the valvular heart disease. Allergies Allergy/AdvReac Type Severity Reaction Status Date / Time lisinopril Allergy Intermediate BP DROP Unverified 09/18/18 09:23 clopidogrel AdvReac Unknown HEART PALP. Verified 09/18/18 09:23 Home Medications Home Medications Medication Instructions Recorded Confirmed Type allopurinol 300 mg PO DAILY PRN 02/20/18 09/18/18 History amlodipine 10 mg PO QAM 02/20/18 09/18/18 History atorvastatin 40 mg PO QAM 02/20/18 09/18/18 History metoprolol tartrate 100 mg PO BID 02/20/18 09/18/18 History hydralazine 10 mg PO BID 04/17/18 09/18/18 History aspirin 81 mg PO QAM 09/18/18 09/18/18 History fluticasone propionate 2 spray INTRANASAL QAM 09/18/18 09/18/18 History folic acid 1 mg PO QAM 09/18/18 09/18/18 History ibuprofen [Advil] 200 mg PO Q6H PRN 09/18/18 09/18/18 History multivitamin 1 tab PO QAM 09/18/18 09/18/18 History thiamine HCl (vitamin B1) [Vitamin 100 mg PO QAM 09/18/18 09/18/18 History B-1] Patient History Medical History CKD (chronic kidney disease), stage III (Chronic) Gout (Chronic) Hyperlipidemia (Chronic) Acute kidney injury superimposed on chronic kidney disease (Resolved) Hypertension (Chronic) Acute blood loss anemia (Resolved) GI bleed (Resolved) AAA (abdominal aortic aneurysm) (Chronic) S/P repair Surgical History Hx of hernia repair (Chronic) lysis of adhesions, incisional hernia repair laparoscopically 01/28/2010 at [facility] - Dr Desouza History of tonsillectomy and adenoidectomy (Chronic) History of lumbar surgery (Chronic) 2000 S/P AAA repair (Chronic) 01/13/2009 - Dr Suazo Hx of colonoscopy (Chronic) Family History Other AAA (abdominal aortic aneurysm) Hypertension Social History Preferred Language: Welsh Communication Ability: Effective Hardboard Panel Printer Required: No Beliefs That Will Affect Care: None marital status: Current Living Situation: Spouse current occupational status: employed Other Information That Helps Us Care for You: No Feels Safe at Home: Yes Safety Concerns: Feels Safe At This Time Smoking Status: Current every day smoker Tobacco Type: cigars Cigarettes Per Day: Former cigarette. Quit 1998 Hx Alcohol Use: Yes Alcohol type: beer Alcohol Intake Frequency Comment: Last drink 2 days ago Hx Substance Use: No Review of Systems Review of Systems: All systems reviewed & are unremarkable except as noted in HPI & below No additional Physical Exam Physical Exam: General: no acute distress and stated age Head: normocephalic, no masses, lesions, tenderness or abnormalities Eyes: conjunctiva are pink and non-injected, sclera clear Neck: supple, no adenopathy, no bruits, normal jugular venous pulse, no hepatojugular reflux Chest: normal shape and normal respiratory effort Lungs: clear to auscultation and percussion Cardiac Exam: - regular rate & rhythm, systolic murmur left sternal border- normal S1, normal S2 telemetry reveals normal sinus rhythm Pulses: 2(+) throughout Abdomen: abdomen soft, non-tender, no abnormal masses and no hepatosplenomegaly Musculoskeletal: no gait disturbance, no joint inflammation, no deforming arthritis Extremities: no edema and no cyanosis Neuro: grossly normal exam Results & Data Vital Signs (Past 12 Hours) Vital Signs Temp Pulse Resp BP BP Pulse Ox 09/19/18 12:20 36.7 C 62 18 124/76 91 09/19/18 08:13 37.0 C 67 20 122/75 94 09/19/18 07:10 70 18 90 09/19/18 04:53 36.8 C 72 18 138/74 91 Laboratory Results Laboratory Results - last 24 hr 09/18/18 09/18/18 09/19/18 15:50 21:31 06:44 WBC Cancelled RBC Cancelled Hgb Cancelled Hct Cancelled MCV Cancelled MCH Cancelled MCHC Cancelled RDW Std Deviation Cancelled RDW Coeff of Hcaka Cancelled Plt Count Cancelled MPV Cancelled Immature Gran % (Auto) Cancelled Neut % (Auto) Cancelled Lymph % (Auto) Cancelled [place] % (Auto) Cancelled Eos % (Auto) Cancelled Baso % (Auto) Cancelled Immature Gran # (Auto) Cancelled Neut # (Auto) Cancelled Lymph # (Auto) Cancelled [place] # (Auto) Cancelled Eos # (Auto) Cancelled Baso # (Auto) Cancelled Absolute Nucleated RBC Cancelled Nucleated RBC % (auto) Cancelled Neutrophils % (Manual) Cancelled Band Neutrophils % Cancelled Lymphocytes % (Manual) Cancelled Prolymphocyte % Cancelled Reactive Lymphs % (Man) Cancelled Monocytes % (Manual) Cancelled Eosinophils % (Manual) Cancelled Basophils % (Manual) Cancelled Metamyelocytes % (Man) Cancelled Myelocytes % (Man) Cancelled Promyelocytes % (Man) Cancelled Blast Cells % (Manual) Cancelled Plasma Cell % (Manual) Cancelled Other Cells % Cancelled Nucleated RBC % Cancelled Neutrophils # (Manual) Cancelled Band Neutrophils # Cancelled Total Absolute Neuts Cancelled Lymphocytes # (Manual) Cancelled Prolymphocyte # Cancelled Reactive Lymphs # Cancelled Total Abs Lymphocytes Cancelled Monocytes # (Manual) Cancelled Eosinophils # (Manual) Cancelled Basophils # (Manual) Cancelled Metamyelocytes # (Man) Cancelled Myelocytes # (Manual) Cancelled Promyelocytes # (Man) Cancelled Blast Cells # (Man) Cancelled Plasma Cell # (Manual) Cancelled Other Cells # Cancelled Nucleated RBCs # (Man) Cancelled Hypersegmented Neuts Cancelled Hyposegmented Neuts Cancelled Hypogranular Neuts Cancelled Large Granular Lymphs Cancelled # Lrg Granular Lymphs Cancelled Hairy Cells Cancelled Smudge Cells Cancelled Toxic Granulation Cancelled Toxic Vacuolation Cancelled Dohle Bodies Cancelled Ammy Rods Cancelled Platelet Estimate Cancelled Hypogranular Platelets Cancelled Clumped Platelets Cancelled Giant Platelets Cancelled Platelet Satelliting Cancelled RBC Morphology Cancelled Polychromasia Cancelled Hypochromasia Cancelled Poikilocytosis Cancelled Basophilic Stippling Cancelled Anisocytosis Cancelled Microcytosis Cancelled Macrocytosis Cancelled Spherocytes Cancelled Pappenheimer Bodies Cancelled Sickle Cells Cancelled Target Cells Cancelled Tear Drop Cells Cancelled Ovalocytes Cancelled Stomatocytes Cancelled Doty-Maunawili Bodies Cancelled Echinocytes Cancelled Acanthocytes (Spur) Cancelled Rouleaux Cancelled RBC Agglutinates Cancelled Schistocytes Cancelled RBC Morph Comment Cancelled Sezary Cell Cancelled Sodium Potassium Chloride Carbon Dioxide Anion Gap BUN Creatinine Est Cr Clr Drug Dosing Est GFR ( Amer) Est GFR (Non-Af Amer) BUN/Creatinine Ratio Glucose Estimat Average Glucose Hemoglobin A1c Osmolality Calcium Troponin I < 0.015 < 0.015 Triglycerides Cholesterol LDL Cholesterol, Calc VLDL Cholesterol, Calc HDL Cholesterol Cholesterol/HDL Ratio Prostate Specific Ag TSH Urine Osmolality Urine Sodium Urine Potassium Urine Chloride 09/19/18 09/19/18 09/19/18 06:44 06:44 06:44 WBC RBC Hgb Hct MCV MCH MCHC RDW Std Deviation RDW Coeff of Chaka Plt Count MPV Immature Gran % (Auto) Neut % (Auto) Lymph % (Auto) [place] % (Auto) Eos % (Auto) Baso % (Auto) Immature Gran # (Auto) Neut # (Auto) Lymph # (Auto) [place] # (Auto) Eos # (Auto) Baso # (Auto) Absolute Nucleated RBC Nucleated RBC % (auto) Neutrophils % (Manual) Band Neutrophils % Lymphocytes % (Manual) Prolymphocyte % Reactive Lymphs % (Man) Monocytes % (Manual) Eosinophils % (Manual) Basophils % (Manual) Metamyelocytes % (Man) Myelocytes % (Man) Promyelocytes % (Man) Blast Cells % (Manual) Plasma Cell % (Manual) Other Cells % Nucleated RBC % Neutrophils # (Manual) Band Neutrophils # Total Absolute Neuts Lymphocytes # (Manual) Prolymphocyte # Reactive Lymphs # Total Abs Lymphocytes Monocytes # (Manual) Eosinophils # (Manual) Basophils # (Manual) Metamyelocytes # (Man) Myelocytes # (Manual) Promyelocytes # (Man) Blast Cells # (Man) Plasma Cell # (Manual) Other Cells # Nucleated RBCs # (Man) Hypersegmented Neuts Hyposegmented Neuts Hypogranular Neuts Large Granular Lymphs # Lrg Granular Lymphs Hairy Cells Smudge Cells Toxic Granulation Toxic Vacuolation Dohle Bodies Ammy Rods Platelet Estimate Hypogranular Platelets Clumped Platelets Giant Platelets Platelet Satelliting RBC Morphology Polychromasia Hypochromasia Poikilocytosis Basophilic Stippling Anisocytosis Microcytosis Macrocytosis Spherocytes Pappenheimer Bodies Sickle Cells Target Cells Tear Drop Cells Ovalocytes Stomatocytes Doty-Maun[place]ili Bodies Echinocytes Acanthocytes (Spur) Rouleaux RBC Agglutinates Schistocytes RBC Morph Comment Sezary Cell Sodium 134 L D Potassium 4.0 Chloride 100 Carbon Dioxide 23 Anion Gap 11.0 BUN 16 Creatinine 1.26 Est Cr Clr Drug Dosing 49.2 Est GFR ( Amer) 66.5 Est GFR (Non-Af Amer) 57.4 BUN/Creatinine Ratio 13.0 Glucose 91 Estimat Average Glucose 120 Hemoglobin A1c 5.8 H Osmolality 274 L Calcium 9.1 Troponin I Triglycerides 102 Cholesterol 147 LDL Cholesterol, Calc 79 VLDL Cholesterol, Calc 20 HDL Cholesterol 48 Cholesterol/HDL Ratio 3 Prostate Specific Ag 0.529 TSH 3.530 Urine Osmolality Urine Sodium Urine Potassium Urine Chloride 09/19/18 09/19/18 09/19/18 06:44 Unknown Unknown WBC 8.33 RBC 4.43 L Hgb 14.6 Hct 42.2 MCV 95.3 MCH 33.0 MCHC 34.6 RDW Std Deviation 52.0 H RDW Coeff of Chaka 14.8 H Plt Count 139 MPV 10.7 H Immature Gran % (Auto) 0.1 Neut % (Auto) 70.9 Lymph % (Auto) 14.0 [place] % (Auto) 12.6 Eos % (Auto) 1.9 Baso % (Auto) 0.5 Immature Gran # (Auto) 0.01 Neut # (Auto) 5.90 Lymph # (Auto) 1.17 L [place] # (Auto) 1.05 H Eos # (Auto) 0.16 Baso # (Auto) 0.04 Absolute Nucleated RBC Nucleated RBC % (auto) Neutrophils % (Manual) Band Neutrophils % Lymphocytes % (Manual) Prolymphocyte % Reactive Lymphs % (Man) Monocytes % (Manual) Eosinophils % (Manual) Basophils % (Manual) Metamyelocytes % (Man) Myelocytes % (Man) Promyelocytes % (Man) Blast Cells % (Manual) Plasma Cell % (Manual) Other Cells % Nucleated RBC % Neutrophils # (Manual) Band Neutrophils # Total Absolute Neuts Lymphocytes # (Manual) Prolymphocyte # Reactive Lymphs # Total Abs Lymphocytes Monocytes # (Manual) Eosinophils # (Manual) Basophils # (Manual) Metamyelocytes # (Man) Myelocytes # (Manual) Promyelocytes # (Man) Blast Cells # (Man) Plasma Cell # (Manual) Other Cells # Nucleated RBCs # (Man) Hypersegmented Neuts Hyposegmented Neuts Hypogranular Neuts Large Granular Lymphs # Lrg Granular Lymphs Hairy Cells Smudge Cells Toxic Granulation Toxic Vacuolation Dohle Bodies Ammy Rods Platelet Estimate Hypogranular Platelets Clumped Platelets Giant Platelets Platelet Satelliting RBC Morphology Polychromasia Hypochromasia Poikilocytosis Basophilic Stippling Anisocytosis Microcytosis Macrocytosis Spherocytes Pappenheimer Bodies Sickle Cells Target Cells Tear Drop Cells Ovalocytes Stomatocytes Doty-Maunawili Bodies Echinocytes Acanthocytes (Spur) Rouleaux RBC Agglutinates Schistocytes RBC Morph Comment Sezary Cell Sodium Potassium Chloride Carbon Dioxide Anion Gap BUN Creatinine Est Cr Clr Drug Dosing Est GFR ( Amer) Est GFR (Non-Af Amer) BUN/Creatinine Ratio Glucose Estimat Average Glucose Hemoglobin A1c Osmolality Calcium Troponin I Triglycerides Cholesterol LDL Cholesterol, Calc VLDL Cholesterol, Calc HDL Cholesterol Cholesterol/HDL Ratio Prostate Specific Ag TSH Urine Osmolality 514 Urine Sodium 20 Urine Potassium 71.8 Urine Chloride 20 Medications Administered Current Inpatient Medications Acetaminophen (Tylenol) 650 mg PO Q4H PRN PRN Reason: Pain or Fever Stop: 10/18/18 11:40 Amlodipine Besylate (Norvasc) 10 mg PO [facility] Stop: 10/19/18 08:59 Last Admin: 09/19/18 09:14 Dose: 10 mg Documented by: Atorvastatin Calcium (Lipitor) 40 mg PO [facility] Stop: 10/19/18 08:59 Last Admin: 09/19/18 09:13 Dose: 40 mg Documented by: Clopidogrel Bisulfate (Plavix) 75 mg PO [facility] Stop: 10/19/18 08:59 Last Admin: 09/19/18 09:15 Dose: 75 mg Documented by: Fluticasone Propionate (Flonase) 2 sprays [facility] Stop: 10/19/18 08:59 Last Admin: 09/19/18 09:12 Dose: 2 sprays Documented by: Folic Acid (Folvite) 1 mg PO [facility] Stop: 10/19/18 08:59 Last Admin: 09/19/18 09:13 Dose: 1 mg Documented by: Gadobutrol (Gadavist 65ml) 8 ml IV ONCE PRN PRN Reason: Interaction Checking Stop: 09/22/18 16:40 Last Admin: 09/18/18 16:42 Dose: 8 ml Documented by: Heparin Sodium (Porcine) (Heparin Sodium (Porcine)) 5,000 units SQ Q8 [facility] Stop: 10/18/18 13:59 Last Admin: 09/19/18 06:07 Dose: 5,000 units Documented by: Hydralazine HCl (Apresoline) 10 mg PO BID [facility] Stop: 10/18/18 20:59 Last Admin: 09/19/18 09:12 Dose: 10 mg Documented by: Levofloxacin/Dextrose (Levaquin/D5w) 500 mg in 100 mls @ 100 mls/hr IV Q24H [facility] Stop: 09/29/18 09:59 Last Infusion: 09/19/18 12:01 Dose: Infused Documented by: Ipratropium [place] (Atrovent 0.02% 0.5mg/2.5ml) 0.5 mg INH Q6R [facility] Stop: 10/18/18 13:59 Last Admin: 09/19/18 14:21 Dose: 0.5 mg Documented by: Levalbuterol HCl (Xopenex 0.63 Mg/3 Ml Neb) 0.63 mg NEB Q6R [facility] Stop: 10/18/18 13:59 Last Admin: 09/19/18 14:20 Dose: 0.63 mg Documented by: Metoprolol Tartrate (Lopressor) 100 mg PO BID [facility] Stop: 10/18/18 20:59 Last Admin: 09/19/18 09:14 Dose: 100 mg Documented by: Miscellaneous Information (Pharmacist Discharge Med Rec Consult) 1 ea N/A UD PRN PRN Reason: Consult Stop: 10/18/18 11:40 Multivitamins (Multivitamin Tab) 1 tab PO QAM [facility] Stop: 10/19/18 08:59 Last Admin: 09/19/18 09:14 Dose: 1 tab Documented by: Thiamine HCl (Vitamin B-1) 100 mg PO QAM [facility] Stop: 10/19/18 08:59 Last Admin: 09/19/18 09:15 Dose: 100 mg Documented by: (1) CVA (cerebral vascular accident) CVA mechanism: unspecified Qualified Code(s): I63.9 - Cerebral infarction, unspecified
--- NOTE | 2018-09-19 14:46 | Neurology Progress Note ---
Date of Service September 19, 2018 Assessment & Plan (1) CVA (cerebral vascular accident): 1. CT head- left parieto occipital infarct 2. MRI brain for further evaluation of extent of stroke 3. TTE- EF 60-65% patent foramen ovale 4. optimize HTN, HLD, LDL <70 5. long time smoker- cessation urged 6. NA 127-128 ? may need CA work up if no other cause is found? 7. continue aspirin 81 mg and contine plavix 75 mg for 21 days then stop the aspirin and continue Plavix for a lifetime- ok'd with GI consult 8. PT/OT speech for discharge needs 9. will need ophthalmology as out patient and should not drive until cleared due to loss of right peripheral vision 10. conical mixer as outpatient follow up with neurology as outpatient in 4-6 weeks Sophy Maguire PAC schedule Supervising Physician Co-Signing Physician Notes I have seen and discussed above patient with Dr Patricio Ramirez, neurology I seen Mr. Fung with his today, perform examination which reveals a dense right hemianopsia and reviewed the MRI scan which confirms the presence of a left occipital infarction. He states that he thought this morning his visual field was a little less impaired on the right but as the day went on it became more densely involved otherwise is been no real change in his overall clinical status or examination The echocardiogram shows apparently a trivial PFO and some aortic valve sclerosis neither which I think are responsible for the current CVA He will need a ZIO Patch on an outpatient basis, ophthalmology evaluation to assess the degree of his visual field cut, dual antiplatelet therapy for 3 weeks (GI has apparently okayed this based on his history of AVM induced bleeds post cauterization) and neurology will need to see him back in follow-up in about 6 weeks time Currently we are going to sign off the case unless there are further developments and would like to see him back in our office in about 6 weeks Patricio Ramirez MD Chadwick Elizondo is a 68 year old male with PMH HTN, HLD, CKD III, UGI bleed with clipping, AAA s/p repair in 2008, gout presented to ER with c/o blurry vision, dizziness. He woke with blurry vision, NAILS and was having difficulty walking. His blood pressure was elevated in the 180s/90s and was having some word finding difficulty. He went to his PCPs office and then referred to ER secondary to symptoms. He is still having blurry vision and some dizziness and gait difficulty with walking. He continues to have ongoing sinus congestion and cough productive of clear/white sputum long with some wheezing. He is a cigar smoker and knows he needs to stop. denies CP, SOB, abdominal pain, one sided weakness numbness tingling, N, V, slurred speech swallowing issues. +blurred vision. Physical Exam Physical Exam: Gen: alert NAD lungs CTA, CV RRR PERRLA/EOMI, dense left hemianopsia unable to finger to nose on left due to left field cut strength bilaterally UE biceps triceps hand surface grinder 5/5 , hip flex plantar flex ext 5/5 sensation intact to light/ cool touch Results & Data Vital Signs (Past 12 Hours) Vital Signs Temp Pulse Resp BP BP Pulse Ox 09/19/18 14:22 64 18 90 09/19/18 12:20 36.7 C 62 18 124/76 91 09/19/18 08:13 37.0 C 67 20 122/75 94 09/19/18 07:10 70 18 90 09/19/18 04:53 36.8 C 72 18 138/74 91 Laboratory Results Abnormal lab results 09/19/18 09/19/18 09/19/18 Range/Units 06:44 06:44 06:44 RBC (4.7-6.1) M/uL RDW Std Deviation (36.4-46.3) fL RDW Coeff of Chaka (11.5-14.5) % MPV (7.4-10.4) fL Lymph # (Auto) (1.2-3.4) K/uL [place] # (Auto) (0.11-0.59) K/uL Sodium 134 L D (136-145) mmol/L Hemoglobin A1c 5.8 H (4.5-5.6) % Osmolality 274 L (280-300) mOsm/kg 09/19/18 Range/Units 06:44 RBC 4.43 L (4.7-6.1) M/uL RDW Std Deviation 52.0 H (36.4-46.3) fL RDW Coeff of Chaka 14.8 H (11.5-14.5) % MPV 10.7 H (7.4-10.4) fL Lymph # (Auto) 1.17 L (1.2-3.4) K/uL [place] # (Auto) 1.05 H (0.11-0.59) K/uL Sodium (136-145) mmol/L Hemoglobin A1c (4.5-5.6) % Osmolality (280-300) mOsm/kg Diagnostic Findings none (1) CVA (cerebral vascular accident) CVA mechanism: unspecified Qualified Code(s): I63.9 - Cerebral infarction, unspecified
--- NOTE | 2018-09-19 15:43 | Nephrology Consultation ---
Date of Consultation September 19, 2018 Assessment & Plan (1) Acute kidney injury superimposed on chronic kidney disease: Patient with acute kidney injury on CKD. Creatinine on admission was 1.4 but has improved to 1.26 with IV fluids. No need for IV fluids now as patient is euvolemic. Monitor renal function with daily BMP. Avoid nephrotoxins unless lifesaving. (2) Hyponatremia: Patient with hyponatremia likely due to hypovolemic hyponatremia. Urine osmolality of 514, serum osmolality of 274 and urine sodium of 20. Patient received 1 L of normal saline in the emergency room. It is possible that the urine sodium was collected after starting the normal saline infusion. Regardless, sodium has improved and is close to normal. Patient can be allowed to salt her food. He can drink between 1.5 to 2 L daily. Will monitor sodium daily. (3) Hypertension: Blood pressure is controlled. Continue current regimen. Avoid aggressive blood pressure control given acute stroke. (4) CVA (cerebral vascular accident): Patient is on medical management per neurology. History of Present Illness Reason for Consultation: Hyponatremia, acute kidney injury Requesting Physician: Torey Reyes DO Attending Physician: Torey Reyes DO History of Present Illness This is a 68 year old male with PMH HTN, HLD, CKD III, UGI bleed with clipping, AAA s/p repair in 2008, gout who was admitted on 09/18/2018 with a CVA. He presented with with c/o blurry vision, dizziness. His blood pressure was elevated in the 180s/90s and was having some word finding difficulty. CT head showed left occipital infarct. Is being treated medically with Plavix. He is complaining of blurry vision in the right eye but no focal weakness. No shortness of breath. His sodium was 127 on admission but has improved to 134 with IV fluids. He is eating well. He denies any vomiting or diarrhea. No urinary symptoms such as dysuria, hematuria or frequency. Creatinine is also improved to 1.26 this morning. Allergies Allergy/AdvReac Type Severity Reaction Status Date / Time lisinopril Allergy Intermediate BP DROP Unverified 09/18/18 09:23 clopidogrel AdvReac Unknown HEART PALP. Verified 09/18/18 09:23 Home Medications Home Medications Medication Instructions Recorded Confirmed Type allopurinol 300 mg PO DAILY PRN 02/20/18 09/18/18 History amlodipine 10 mg PO QAM 02/20/18 09/18/18 History atorvastatin 40 mg PO QAM 02/20/18 09/18/18 History metoprolol tartrate 100 mg PO BID 02/20/18 09/18/18 History hydralazine 10 mg PO BID 04/17/18 09/18/18 History aspirin 81 mg PO QAM 09/18/18 09/18/18 History fluticasone propionate 2 spray INTRANASAL QAM 09/18/18 09/18/18 History folic acid 1 mg PO QAM 09/18/18 09/18/18 History ibuprofen [Advil] 200 mg PO Q6H PRN 09/18/18 09/18/18 History multivitamin 1 tab PO QAM 09/18/18 09/18/18 History thiamine HCl (vitamin B1) [Vitamin 100 mg PO QAM 09/18/18 09/18/18 History B-1] Patient History Medical History CKD (chronic kidney disease), stage III (Chronic) Gout (Chronic) Hyperlipidemia (Chronic) Acute kidney injury superimposed on chronic kidney disease (Resolved) Hypertension (Chronic) Acute blood loss anemia (Resolved) GI bleed (Resolved) AAA (abdominal aortic aneurysm) (Chronic) S/P repair Surgical History Hx of hernia repair (Chronic) lysis of adhesions, incisional hernia repair laparoscopically 01/28/2010 at [facility] - Dr Desouza History of tonsillectomy and adenoidectomy (Chronic) History of lumbar surgery (Chronic) 1999 S/P AAA repair (Chronic) 01/13/2009 - Dr Suazo Hx of colonoscopy (Chronic) Family History Other AAA (abdominal aortic aneurysm) Hypertension Social History Preferred Language: Vietnamese Communication Ability: Effective Drapery Cutter Required: No Beliefs That Will Affect Care: None marital status: Current Living Situation: Spouse current occupational status: employed Other Information That Helps Us Care for You: No Feels Safe at Home: Yes Safety Concerns: Feels Safe At This Time Smoking Status: Current every day smoker Tobacco Type: cigars Cigarettes Per Day: Former cigarette. Quit 1998 Hx Alcohol Use: Yes Alcohol type: beer Alcohol Intake Frequency Comment: Last drink 2 days ago Hx Substance Use: No Review of Systems Review of Systems: All systems reviewed & are unremarkable except as noted in HPI & below Physical Exam Physical Exam: General exam: Appears comfortable, no acute distress HEENT: Pupils are equal and reactive to light. Visual blurring in the right eye Neck: No JVD, neck is supple trachea is midline Respiratory system: Clear breath sounds bilaterally. Gastrointestinal: Abdomen is soft, non distended, non tender, bowel sounds are present CVS: Regular rate and rhythm. No murmurs, rubs or gallops Musculoskeletal: No joint or muscle tenderness Extremities: Non tender, no edema, peripheral pulses are present Neuro: Oriented, no tremors, Skin: No rashes Results & Data Vital Signs (Past 12 Hours) Vital Signs Temp Pulse Resp BP BP Pulse Ox 09/19/18 14:22 64 18 90 09/19/18 12:20 36.7 C 62 18 124/76 91 09/19/18 08:13 37.0 C 67 20 122/75 94 09/19/18 07:10 70 18 90 09/19/18 04:53 36.8 C 72 18 138/74 91 Laboratory Results Laboratory Results - last 24 hr 09/18/18 09/18/18 09/19/18 15:50 21:31 06:44 WBC Cancelled RBC Cancelled Hgb Cancelled Hct Cancelled MCV Cancelled MCH Cancelled MCHC Cancelled RDW Std Deviation Cancelled RDW Coeff of Chaka Cancelled Plt Count Cancelled MPV Cancelled Immature Gran % (Auto) Cancelled Neut % (Auto) Cancelled Lymph % (Auto) Cancelled [place] % (Auto) Cancelled Eos % (Auto) Cancelled Baso % (Auto) Cancelled Immature Gran # (Auto) Cancelled Neut # (Auto) Cancelled Lymph # (Auto) Cancelled [place] # (Auto) Cancelled Eos # (Auto) Cancelled Baso # (Auto) Cancelled Absolute Nucleated RBC Cancelled Nucleated RBC % (auto) Cancelled Neutrophils % (Manual) Cancelled Band Neutrophils % Cancelled Lymphocytes % (Manual) Cancelled Prolymphocyte % Cancelled Reactive Lymphs % (Man) Cancelled Monocytes % (Manual) Cancelled Eosinophils % (Manual) Cancelled Basophils % (Manual) Cancelled Metamyelocytes % (Man) Cancelled Myelocytes % (Man) Cancelled Promyelocytes % (Man) Cancelled Blast Cells % (Manual) Cancelled Plasma Cell % (Manual) Cancelled Other Cells % Cancelled Nucleated RBC % Cancelled Neutrophils # (Manual) Cancelled Band Neutrophils # Cancelled Total Absolute Neuts Cancelled Lymphocytes # (Manual) Cancelled Prolymphocyte # Cancelled Reactive Lymphs # Cancelled Total Abs Lymphocytes Cancelled Monocytes # (Manual) Cancelled Eosinophils # (Manual) Cancelled Basophils # (Manual) Cancelled Metamyelocytes # (Man) Cancelled Myelocytes # (Manual) Cancelled Promyelocytes # (Man) Cancelled Blast Cells # (Man) Cancelled Plasma Cell # (Manual) Cancelled Other Cells # Cancelled Nucleated RBCs # (Man) Cancelled Hypersegmented Neuts Cancelled Hyposegmented Neuts Cancelled Hypogranular Neuts Cancelled Large Granular Lymphs Cancelled # Lrg Granular Lymphs Cancelled Hairy Cells Cancelled Smudge Cells Cancelled Toxic Granulation Cancelled Toxic Vacuolation Cancelled Dohle Bodies Cancelled Ammy Rods Cancelled Platelet Estimate Cancelled Hypogranular Platelets Cancelled Clumped Platelets Cancelled Giant Platelets Cancelled Platelet Satelliting Cancelled RBC Morphology Cancelled Polychromasia Cancelled Hypochromasia Cancelled Poikilocytosis Cancelled Basophilic Stippling Cancelled Anisocytosis Cancelled Microcytosis Cancelled Macrocytosis Cancelled Spherocytes Cancelled Pappenheimer Bodies Cancelled Sickle Cells Cancelled Target Cells Cancelled Tear Drop Cells Cancelled Ovalocytes Cancelled Stomatocytes Cancelled [place] Bodies Cancelled Echinocytes Cancelled Acanthocytes (Spur) Cancelled Rouleaux Cancelled RBC Agglutinates Cancelled Schistocytes Cancelled RBC Morph Comment Cancelled Sezary Cell Cancelled Sodium Potassium Chloride Carbon Dioxide Anion Gap BUN Creatinine Est Cr Clr Drug Dosing Est GFR ( Amer) Est GFR (Non-Af Amer) BUN/Creatinine Ratio Glucose Estimat Average Glucose Hemoglobin A1c Osmolality Calcium Troponin I < 0.015 < 0.015 Triglycerides Cholesterol LDL Cholesterol, Calc VLDL Cholesterol, Calc HDL Cholesterol Cholesterol/HDL Ratio Prostate Specific Ag TSH Urine Osmolality Urine Sodium Urine Potassium Urine Chloride 09/19/18 09/19/18 09/19/18 06:44 06:44 06:44 WBC RBC Hgb Hct MCV MCH MCHC RDW Std Deviation RDW Coeff of Chaka Plt Count MPV Immature Gran % (Auto) Neut % (Auto) Lymph % (Auto) [place] % (Auto) Eos % (Auto) Baso % (Auto) Immature Gran # (Auto) Neut # (Auto) Lymph # (Auto) [place] # (Auto) Eos # (Auto) Baso # (Auto) Absolute Nucleated RBC Nucleated RBC % (auto) Neutrophils % (Manual) Band Neutrophils % Lymphocytes % (Manual) Prolymphocyte % Reactive Lymphs % (Man) Monocytes % (Manual) Eosinophils % (Manual) Basophils % (Manual) Metamyelocytes % (Man) Myelocytes % (Man) Promyelocytes % (Man) Blast Cells % (Manual) Plasma Cell % (Manual) Other Cells % Nucleated RBC % Neutrophils # (Manual) Band Neutrophils # Total Absolute Neuts Lymphocytes # (Manual) Prolymphocyte # Reactive Lymphs # Total Abs Lymphocytes Monocytes # (Manual) Eosinophils # (Manual) Basophils # (Manual) Metamyelocytes # (Man) Myelocytes # (Manual) Promyelocytes # (Man) Blast Cells # (Man) Plasma Cell # (Manual) Other Cells # Nucleated RBCs # (Man) Hypersegmented Neuts Hyposegmented Neuts Hypogranular Neuts Large Granular Lymphs # Lrg Granular Lymphs Hairy Cells Smudge Cells Toxic Granulation Toxic Vacuolation Dohle Bodies Ammy Rods Platelet Estimate Hypogranular Platelets Clumped Platelets Giant Platelets Platelet Satelliting RBC Morphology Polychromasia Hypochromasia Poikilocytosis Basophilic Stippling Anisocytosis Microcytosis Macrocytosis Spherocytes Pappenheimer Bodies Sickle Cells Target Cells Tear Drop Cells Ovalocytes Stomatocytes [place] Bodies Echinocytes Acanthocytes (Spur) Rouleaux RBC Agglutinates Schistocytes RBC Morph Comment Sezary Cell Sodium 134 L D Potassium 4.0 Chloride 100 Carbon Dioxide 23 Anion Gap 11.0 BUN 16 Creatinine 1.26 Est Cr Clr Drug Dosing 49.2 Est GFR ( Amer) 66.5 Est GFR (Non-Af Amer) 57.4 BUN/Creatinine Ratio 13.0 Glucose 91 Estimat Average Glucose 120 Hemoglobin A1c 5.8 H Osmolality 274 L Calcium 9.1 Troponin I Triglycerides 102 Cholesterol 147 LDL Cholesterol, Calc 79 VLDL Cholesterol, Calc 20 HDL Cholesterol 48 Cholesterol/HDL Ratio 3 Prostate Specific Ag 0.529 TSH 3.530 Urine Osmolality Urine Sodium Urine Potassium Urine Chloride 06/04/19 06/04/19 06/04/19 06:44 Unknown Unknown WBC 8.33 RBC 4.43 L Hgb 14.6 Hct 42.2 MCV 95.3 MCH 33.0 MCHC 34.6 RDW Std Deviation 52.0 H RDW Coeff of Chaka 14.8 H Plt Count 139 MPV 10.7 H Immature Gran % (Auto) 0.1 Neut % (Auto) 70.9 Lymph % (Auto) 14.0 [place] % (Auto) 12.6 Eos % (Auto) 1.9 Baso % (Auto) 0.5 Immature Gran # (Auto) 0.01 Neut # (Auto) 5.90 Lymph # (Auto) 1.17 L [place] # (Auto) 1.05 H Eos # (Auto) 0.16 Baso # (Auto) 0.04 Absolute Nucleated RBC Nucleated RBC % (auto) Neutrophils % (Manual) Band Neutrophils % Lymphocytes % (Manual) Prolymphocyte % Reactive Lymphs % (Man) Monocytes % (Manual) Eosinophils % (Manual) Basophils % (Manual) Metamyelocytes % (Man) Myelocytes % (Man) Promyelocytes % (Man) Blast Cells % (Manual) Plasma Cell % (Manual) Other Cells % Nucleated RBC % Neutrophils # (Manual) Band Neutrophils # Total Absolute Neuts Lymphocytes # (Manual) Prolymphocyte # Reactive Lymphs # Total Abs Lymphocytes Monocytes # (Manual) Eosinophils # (Manual) Basophils # (Manual) Metamyelocytes # (Man) Myelocytes # (Manual) Promyelocytes # (Man) Blast Cells # (Man) Plasma Cell # (Manual) Other Cells # Nucleated RBCs # (Man) Hypersegmented Neuts Hyposegmented Neuts Hypogranular Neuts Large Granular Lymphs # Lrg Granular Lymphs Hairy Cells Smudge Cells Toxic Granulation Toxic Vacuolation Dohle Bodies Ammy Rods Platelet Estimate Hypogranular Platelets Clumped Platelets Giant Platelets Platelet Satelliting RBC Morphology Polychromasia Hypochromasia Poikilocytosis Basophilic Stippling Anisocytosis Microcytosis Macrocytosis Spherocytes Pappenheimer Bodies Sickle Cells Target Cells Tear Drop Cells Ovalocytes Stomatocytes [place] Bodies Echinocytes Acanthocytes (Spur) Rouleaux RBC Agglutinates Schistocytes RBC Morph Comment Sezary Cell Sodium Potassium Chloride Carbon Dioxide Anion Gap BUN Creatinine Est Cr Clr Drug Dosing Est GFR ( Amer) Est GFR (Non-Af Amer) BUN/Creatinine Ratio Glucose Estimat Average Glucose Hemoglobin A1c Osmolality Calcium Troponin I Triglycerides Cholesterol LDL Cholesterol, Calc VLDL Cholesterol, Calc HDL Cholesterol Cholesterol/HDL Ratio Prostate Specific Ag TSH Urine Osmolality 514 Urine Sodium 20 Urine Potassium 71.8 Urine Chloride 20 (1) CVA (cerebral vascular accident) CVA mechanism: unspecified Qualified Code(s): I63.9 - Cerebral infarction, unspecified
[2018-09-20] MEDS: LEVALBUTEROL HCL 0.63 MG/3 ML NEB NEB SCH ×4 (02:05→19:35)
[2018-09-20] MEDS: IPRATROPIUM BROMIDE NEB SOLN 0.02% 2.5 ML VIAL INH SCH ×4 (02:05→19:35)
[2018-09-20] MEDS: HEPARIN SOD 5,000 UNIT/0.5 ML VIAL SQ SCH ×3 (05:42→21:34)
[2018-09-20 06:04] LABS: Basophils # (auto) 0.04 K/uL (0-0.2); Basophils % (auto) 0.6 %; Eosinophils # (auto) 0.22 K/uL (0-0.5); Hematocrit (blood only) 41.7 % (42-52); Hemoglobin 14.6 g/dL (14.0-18.0); Immature Granulocytes # (auto) 0.02 K/uL (0.00-0.02); Immature Granulocytes % (auto) 0.3 %; Lymphocytes # (auto) 1.22 K/uL (1.2-3.4); Lymphocytes % (auto) 16.8 %; Mean Corpuscular Volume 95.6 fL (80-100); Mean Platelet Volume 11.3 fL (7.4-10.4); Monocytes # (auto) 0.83 K/uL (0.11-0.59); Monocytes % (auto) 11.4 %; Neutrophils # (auto) 4.94 K/uL (1.4-6.5); Neutrophils % (auto) 67.9 %; Platelet Count 144 K/uL (130-400); RDW Coefficient of Variation 14.7 % (11.5-14.5); RDW Standard Deviation 51.7 fL (36.4-46.3); Red Blood Count 4.36 M/uL (4.7-6.1); White Blood Count 7.27 K/uL (4.8-10.8)
[2018-09-20 06:32] LABS: BUN Creatinine Ratio 13.8 (10-20); Calcium 9.1 mg/dl (8.5-10.1); Creatinine Clr Calc Pharmacy 49.2 ml/min; Est GFR (African American) 66.5; Est GFR (Non-African American) 57.4; Potassium 3.9 mmol/L (3.5-5.1)
--- NOTE | 2018-09-20 07:40 | Hospitalist Progress Note ---
Date of Service September 20, 2018 Subjective Patient was having pauses on monitor . Longest was 5 seconds.Electrolytes are ok. Holding Lopressor. Will notify Am providers. Results & Data Vital Signs (Past 12 Hours) Vital Signs Temp Pulse Pulse Resp BP BP Pulse Ox 09/20/18 07:30 66 16 91 09/20/18 07:10 37.2 C 60 18 127/74 92 09/20/18 03:30 36.8 C 58 L 18 169/83 H 96 09/20/18 02:07 69 18 90 09/20/18 00:08 36.9 C 86 20 134/73 93 09/19/18 21:02 69 156/83 H 09/19/18 20:00 37.0 C 64 20 133/98 93
[2018-09-20] MEDS: FLUTICASONE PROPIONATE NA SPR 16 GM BTL NAE SCH (09:41)
[2018-09-20] MEDS: THIAMINE HCL 100 MG TAB PO SCH (09:42)
[2018-09-20] MEDS: MULTIVITAMIN TAB PO SCH (09:42)
[2018-09-20] MEDS: AMLODIPINE BESYLATE 5 MG TAB PO SCH (09:42)
[2018-09-20] MEDS: FOLIC ACID 1 MG TAB PO SCH (09:42)
--- NOTE | 2018-09-20 09:42 | Cardiology Progress Note ---
Date of Service September 20, 2018 Assessment & Plan (1) CVA (cerebral vascular accident): Management as per Neurology and Hospitalist Service Tobacco (cigars) cessation advised Continue statin, atorvastatin Predominant rhythm is sinus during this hospitalization. 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 (2) Aortic stenosis: Patient with moderate to severe aortic stenosis This will require outpatient Cardiology follow-up. (3) Wide-complex tachycardia: Asymptomatic Resume metoprolol tartrate and the adjusted/reduced dose of 50 mg twice a day for now (see below) Maintain electrolytes (4) Sinus pause: Asymptomatic During sleep Recommend evaluation for hypoxemia and obstructive sleep apnea. (5) Hypertension: Acceptable blood pressure control observed. Follow (6) Hyperlipidemia: Continue atorvastatin Supervising Physician Co-Signing Physician Notes I have reviewed the chart, seen the patient and discussed the case with the physician hotel assistant manager. The patient is doing well and recovering from his stroke. The patient had a 13 beat run of nonsustained ventricular tachycardia early in his admission which was asymptomatic. No additional ventricular arrhythmias. He has at night while sleeping sinus pauses which have been asymptomatic. The patient will have a 2-week heart monitor after discharge. For now I would continue his medications. Anticoagulation will consist of Plavix and aspirin 30 days followed by Plavix. We will have to follow him as an outpatient for his aortic stenosis. Discharge can occur per the internal medicine service. Subjective Patient seen and examined. at beside. Feels great except for blurred vision. Denies chest pain, palpitations, unusual shortness of breath, orthopnea, PND, peripheral edema, dizziness, near syncope, or syncope. Metoprolol held last night after two asymptomatic pauses were observed on telemetry (see below). Patient presented this admission on metoprolol tartrate 100 mg twice a day. September 18, 2018 TTE Interpretation Summary ([facility], Dr. Smith): Interatrial shunt. PFO. Moderate concentric LVH. Normal LV systolic function. EF 60-65%. Moderate to severe aortic stenosis. September 19, 2018 EKG: NRS at 65 bpm. Voltage criteria for LVH. QTc 440 ms. Telemetry: Currently in sinus. 13 beat run of asymptomatic wide complex tachycardia on 09/20/2018 at 09:32 AM. Two pauses overnight (2.8 seconds and 3.7 seconds), asymptomatic. Physical Exam Physical Exam: General: A&Ox3. NAD. HEENT: Normocephalic. Atraumatic. PER. Conjunctiva pink, sclera clear. Neck: Right carotid bruit. No JVD. No HJR. Heart: RRR. Grade II/ systolic ejection murmur. No diastolic murmur. PMI is nondisplaced. Lungs: Diminished. Decreased. Left basilar rhonchi. No wheeze. Abdomen: +BS. Soft. Nontender. No masses or organomegaly. Extremities: No clubbing, cyanosis, or edema. Pulses: radial=2/4, posterior tibial=1/4. Results & Data Vital Signs (Past 12 Hours) Vital Signs Temp Pulse Pulse Resp BP BP Pulse Ox 09/20/18 07:30 66 16 91 09/20/18 07:10 37.2 C 60 18 127/74 92 09/20/18 03:30 36.8 C 58 L 18 169/83 H 96 09/20/18 02:07 69 18 90 09/20/18 00:08 36.9 C 86 20 134/73 93 Laboratory Results - last 24 hr 09/19/18 09/19/18 09/19/18 06:44 Unknown Unknown WBC RBC Hgb Hct MCV MCH MCHC RDW Std Deviation RDW Coeff of Chaka Plt Count MPV Immature Gran % (Auto) Neut % (Auto) Lymph % (Auto) [place] % (Auto) Eos % (Auto) Baso % (Auto) Immature Gran # (Auto) Neut # (Auto) Lymph # (Auto) [place] # (Auto) Eos # (Auto) Baso # (Auto) Sodium Potassium Chloride Carbon Dioxide Anion Gap BUN Creatinine Est Cr Clr Drug Dosing Est GFR ( Amer) Est GFR (Non-Af Amer) BUN/Creatinine Ratio Glucose Estimat Average Glucose 120 Hemoglobin A1c 5.8 H Calcium Magnesium Urine Osmolality 514 Urine Sodium 20 Urine Potassium 71.8 Urine Chloride 20 09/20/18 09/20/18 09/20/18 00:31 05:33 05:33 WBC 7.27 RBC 4.36 L Hgb 14.6 Hct 41.7 L MCV 95.6 MCH 33.5 MCHC 35.0 RDW Std Deviation 51.7 H RDW Coeff of Chaka 14.7 H Plt Count 144 MPV 11.3 H Immature Gran % (Auto) 0.3 Neut % (Auto) 67.9 Lymph % (Auto) 16.8 [place] % (Auto) 11.4 Eos % (Auto) 3.0 Baso % (Auto) 0.6 Immature Gran # (Auto) 0.02 Neut # (Auto) 4.94 Lymph # (Auto) 1.22 [place] # (Auto) 0.83 H Eos # (Auto) 0.22 Baso # (Auto) 0.04 Sodium 134 L Potassium 3.9 Chloride 101 Carbon Dioxide 24 Anion Gap 9.0 BUN 17 Creatinine 1.26 Est Cr Clr Drug Dosing 49.2 Est GFR ( Amer) 66.5 Est GFR (Non-Af Amer) 57.4 BUN/Creatinine Ratio 13.8 Glucose 96 Estimat Average Glucose Hemoglobin A1c Calcium 9.1 Magnesium 2.0 Urine Osmolality Urine Sodium Urine Potassium Urine Chloride (1) CVA (cerebral vascular accident) CVA mechanism: unspecified Qualified Code(s): I63.9 - Cerebral infarction, unspecified
[2018-09-20] MEDS: HydrALAZINE 10 MG TAB PO SCH ×2 (09:43→21:34)
[2018-09-20] MEDS: CLOPIDOGREL BISULFATE 75 MG TAB PO SCH (09:43)
[2018-09-20] MEDS: ATORVASTATIN 40 MG TAB PO SCH (09:43)
[2018-09-20] MEDS: LEVOFLOXACIN/D5W 500 MG/100 ML BAG IV SCH (09:45)
--- NOTE | 2018-09-20 13:08 | Nephrology Progress Note ---
Date of Service September 20, 2018 Assessment & Plan (1) Acute kidney injury superimposed on chronic kidney disease: Patient with acute kidney injury on CKD. Creatinine on admission was 1.4 but has improved to 1.26 with IV fluids. No need for IV fluids now as patient is euvolemic. Monitor renal function with daily BMP. Avoid nephrotoxins unless lifesaving. Renal will sign off please reconsult if additional questions or concerns. (2) Hyponatremia: Patient with hyponatremia likely due to hypovolemic hyponatremia. Urine osmolality of 514, serum osmolality of 274 and urine sodium of 20. Patient received 1 L of normal saline in the emergency room. It is possible that the urine sodium was collected after starting the normal saline infusion. Regardless, sodium has improved and is close to normal. Patient can be allowed to salt her food. He can drink 1.5 L daily. Please monitor sodium daily. (3) Hypertension: Blood pressure is controlled. Continue current regimen. Avoid aggressive blood pressure control given acute stroke. (4) CVA (cerebral vascular accident): Patient is on medical management per neurology. Subjective Patient seen in follow-up for hyponatremia. He was admitted with the CVA. He still has blurry vision in the right eye. He feels better this morning. He is eating well no vomiting or diarrhea. No urinary symptoms. Sodium is better at 134 today. Creatinine is stable at 1.26. Seen with the at the bedside. Review of Systems Review of Systems: All systems reviewed & are unremarkable except as noted in HPI & below Physical Exam Physical Exam: General exam: Appears comfortable, no acute distress HEENT: Vision blurring in the right eye. Neck: No JVD, neck is supple trachea is midline Respiratory system: Clear breath sounds bilaterally. Gastrointestinal: Abdomen is soft, non distended, non tender, bowel sounds are present CVS: Regular rate and rhythm. No murmurs, rubs or gallops Musculoskeletal: No joint or muscle tenderness Extremities: Non tender, no edema, peripheral pulses are present Neuro: Oriented, no tremors, no focal neurological deficits Skin: No rashes Results & Data Vital Signs (Past 12 Hours) Vital Signs Temp Pulse Pulse Resp BP Pulse Ox 09/20/18 07:30 66 16 91 09/20/18 07:10 37.2 C 60 18 127/74 92 09/20/18 03:30 36.8 C 58 L 18 169/83 H 96 09/20/18 02:07 69 18 90 Laboratory Results Laboratory Results - last 24 hr 09/20/18 09/20/18 09/20/18 00:31 05:33 05:33 WBC 7.27 RBC 4.36 L Hgb 14.6 Hct 41.7 L MCV 95.6 MCH 33.5 MCHC 35.0 RDW Std Deviation 51.7 H RDW Coeff of Chaka 14.7 H Plt Count 144 MPV 11.3 H Immature Gran % (Auto) 0.3 Neut % (Auto) 67.9 Lymph % (Auto) 16.8 [place] % (Auto) 11.4 Eos % (Auto) 3.0 Baso % (Auto) 0.6 Immature Gran # (Auto) 0.02 Neut # (Auto) 4.94 Lymph # (Auto) 1.22 [place] # (Auto) 0.83 H Eos # (Auto) 0.22 Baso # (Auto) 0.04 Sodium 134 L Potassium 3.9 Chloride 101 Carbon Dioxide 24 Anion Gap 9.0 BUN 17 Creatinine 1.26 Est Cr Clr Drug Dosing 49.2 Est GFR ( Amer) 66.5 Est GFR (Non-Af Amer) 57.4 BUN/Creatinine Ratio 13.8 Glucose 96 Calcium 9.1 Magnesium 2.0 (1) CVA (cerebral vascular accident) CVA mechanism: unspecified Qualified Code(s): I63.9 - Cerebral infarction, unspecified
[2018-09-20] MEDS ORDERED: METOPROLOL TARTRATE 50 MG TAB PO SCH (21:00)
--- NOTE | 2018-09-20 21:00 | Hospitalist Progress Note ---
Date of Service September 20, 2018 Assessment & Plan (1) CVA (cerebral vascular accident): Present on admission with blurry vision and difficulty to find word CT HEAD:Moderate sized acute appearing territorial infarct about the left parieto-occipital distribution. No acute intracranial hemorrhage or midline shift. CTA HEAD: No intracranial aneurysm or abrupt vessel cut off. Extensive plaque within bilateral cavernous carotids with mild stenosis. Hypodensity within the left occipital lobe which suggests an acute to subacute infarct. CTA NECK: Aneurysmal dilatation of the aortic arch, which is only partially included within the [id number]. 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 Extensive atherosclerosis without evidence of a severe stenosis in the cervical arteries. Stenoses less than 50% noted in the proximal right internal carotid artery and origin of the right vertebral artery. 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 Neurology on board recommended aspirin and plavix 75mg daily for 21 days then stop the aspirin and continue Plavix for a lifetime GI was consulted for intermission coordinator use of AC given history of significant GIB from AVM in February. OK as per GI If intermission coordinator AC is indicated, and recommended ongoing use of PO PPI 20 mg daily will need to arrange for 14-day Zio monitor requested as an outpatient though intermission coordinator anticoagulation is felt to be high risk given his history of GI bleeding. Follow up with neurology in 4 to 6 weeks (2) Sinusitis: (3) Bronchitis: Continue levaquin PO CXR showed no acute finding Continue Xopenex/Atrovent nebulizer treatments (4) Hypertension: BP stable Continie amlodipine, hydralazine Metoprolol decreased to 50mg (5) AAA (abdominal aortic aneurysm): S/P AAA repair in 2008 (6) CKD (chronic kidney disease), stage III: Cr:1.49. Baseline ~1.4 Avoid nephrotoxic agents and possible Stable (7) Hyperlipidemia: Continue statin Sinus pause Asymptomatic Metoprolol decreased to 50mg Recommend evaluation for hypoxemia and obstructive sleep apnea. DVT Prophylaxis -Heparin SQ CODE STATUS Full Code Subjective Pt was seen and examined Lying in bed with no distress Pt said that he feels a little better he said that he continue to have vision problem he had a few second pause on telemonitor early this morning Denies any chest pain, palpitation, dizziness and SOB Physical Exam Physical Exam: General- No acute distress Head- atraumatic Eyes- PERRL, EOMI, ENT- decrease hearing function Neck- supple, no JVD Lungs- clear to auscultation Heart- regular rhythm; +systolic murmur Abdomen- normal bowel sounds, soft, nontender Extremities- no calf tenderness Neuro- alert, oriented x 3; PERRL, EOMI; no facial palsy; no dysarthria Skin- warm & dry Results & Data Vital Signs (Past 12 Hours) Vital Signs Temp Pulse Pulse Pulse Resp BP Pulse Ox 09/20/18 19:50 36.5 C 65 18 144/79 H 93 09/20/18 19:35 75 18 93 09/20/18 16:00 76 09/20/18 15:33 36.9 C 71 18 116/73 91 09/20/18 14:16 90 16 92 (1) CVA (cerebral vascular accident) CVA mechanism: unspecified Qualified Code(s): I63.9 - Cerebral infarction, unspecified
[2018-09-21] MEDS: LEVALBUTEROL HCL 0.63 MG/3 ML NEB NEB SCH ×2 (01:59→07:02)
[2018-09-21] MEDS: IPRATROPIUM BROMIDE NEB SOLN 0.02% 2.5 ML VIAL INH SCH ×2 (01:59→07:02)
[2018-09-21] MEDS: HEPARIN SOD 5,000 UNIT/0.5 ML VIAL SQ SCH ×2 (06:12→14:06)
[2018-09-21] MEDS: THIAMINE HCL 100 MG TAB PO SCH (07:47)
[2018-09-21] MEDS: MULTIVITAMIN TAB PO SCH (07:47)
[2018-09-21] MEDS: FOLIC ACID 1 MG TAB PO SCH (07:47)
[2018-09-21] MEDS: FLUTICASONE PROPIONATE NA SPR 16 GM BTL NAE SCH (07:47)
[2018-09-21] MEDS: AMLODIPINE BESYLATE 5 MG TAB PO SCH (07:47)
[2018-09-21] MEDS: CLOPIDOGREL BISULFATE 75 MG TAB PO SCH (07:47)
[2018-09-21] MEDS: HydrALAZINE 10 MG TAB PO SCH (07:47)
[2018-09-21] MEDS: ATORVASTATIN 40 MG TAB PO SCH (07:47)
[2018-09-21] MEDS ORDERED: ASPIRIN 81 MG ECTAB PO SCH (09:00)
[2018-09-21] MEDS ORDERED: PANTOprazole 40 MG TAB PO SCH (09:00)
[2018-09-21] MEDS ORDERED: levoFLOXacin 500 MG TAB PO SCH (11:00)
--- NOTE | 2018-09-21 13:34 | Cardiology Progress Note ---
Date of Service September 21, 2018 Assessment & Plan (1) CVA (cerebral vascular accident): Management as per Neurology and Hospitalist Service Tobacco (cigars) cessation advised Continue statin, atorvastatin Predominant rhythm is sinus during this hospitalization. 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 (2) Aortic stenosis: Patient with moderate to severe aortic stenosis This will require outpatient Cardiology follow-up. (3) Wide-complex tachycardia: Asymptomatic Resume metoprolol tartrate and the adjusted/reduced dose of 50 mg twice a day for now (see below) Maintain electrolytes (4) Sinus pause: The patient has had no additional sinus pauses since yesterday. I suspect he can be discharged home on a reduced dose of his beta-eugenie. (5) Hypertension: Acceptable blood pressure control observed. Follow (6) Hyperlipidemia: Continue atorvastatin Subjective The patient is up walking in the re[place] with his . He has no complaints today. Review of Systems Review of Systems: All systems reviewed & are unremarkable except as noted in HPI & below No additional Physical Exam Physical Exam: General: no acute distress and stated age Head: normocephalic, no masses, lesions, tenderness or abnormalities Eyes: conjunctiva are pink and non-injected, sclera clear Neck: supple, no adenopathy, no bruits, normal jugular venous pulse, no hepatojugular reflux Chest: normal shape and normal respiratory effort Lungs: clear to auscultation and percussion Cardiac Exam: - regular rate & rhythm, no murmurs gallops or rubs - normal S1, normal S2 Pulses: 2(+) throughout Abdomen: abdomen soft, non-tender, no abnormal masses and no hepatosplenomegaly Musculoskeletal: no gait disturbance, no joint inflammation, no deforming arthritis Extremities: no edema and no cyanosis Neuro: grossly normal exam Results & Data Vital Signs (Past 12 Hours) Vital Signs Temp Pulse Pulse Resp BP BP Pulse Ox 09/21/18 12:06 36.5 C 73 18 102/70 98 09/21/18 08:48 68 09/21/18 07:22 36.8 C 73 16 111/69 91 09/21/18 07:06 75 14 92 09/21/18 04:19 37.1 C 82 18 138/75 91 09/21/18 01:59 74 16 93 Medications Administered Current Inpatient Medications Acetaminophen (Tylenol) 650 mg PO Q4H PRN PRN Reason: Pain or Fever Stop: 10/18/18 11:40 Amlodipine Besylate (Norvasc) 10 mg PO [facility] Stop: 10/19/18 08:59 Last Admin: 09/21/18 07:47 Dose: 10 mg Documented by: Aspirin (Ecotrin Ectab) 81 mg PO [facility] Stop: 10/21/18 08:59 Last Admin: 09/21/18 07:47 Dose: 81 mg Documented by: Atorvastatin Calcium (Lipitor) 40 mg PO [facility] Stop: 10/19/18 08:59 Last Admin: 09/21/18 07:47 Dose: 40 mg Documented by: Clopidogrel Bisulfate (Plavix) 75 mg PO [facility] Stop: 10/19/18 08:59 Last Admin: 09/21/18 07:47 Dose: 75 mg Documented by: Fluticasone Propionate (Flonase) 2 sprays DANIELA [facility] Stop: 10/19/18 08:59 Last Admin: 09/21/18 07:47 Dose: 2 sprays Documented by: Folic Acid (Folvite) 1 mg PO [facility] Stop: 10/19/18 08:59 Last Admin: 09/21/18 07:47 Dose: 1 mg Documented by: Gadobutrol (Gadavist 65ml) 8 ml IV ONCE PRN PRN Reason: Interaction Checking Stop: 09/22/18 16:40 Last Admin: 09/18/18 16:42 Dose: 8 ml Documented by: Heparin Sodium (Porcine) (Heparin Sodium (Porcine)) 5,000 units SQ Q8 [facility] Stop: 10/18/18 13:59 Last Admin: 09/21/18 06:12 Dose: 5,000 units Documented by: Hydralazine HCl (Apresoline) 10 mg PO BID [facility] Stop: 10/18/18 20:59 Last Admin: 09/21/18 07:47 Dose: 10 mg Documented by: Levofloxacin (Levaquin) 500 mg PO DAILY@1100 [facility]; Protocol Stop: 09/27/18 11:01 Last Admin: 09/21/18 10:40 Dose: 500 mg Documented by: Metoprolol Tartrate (Lopressor) 50 mg PO BID [facility] Stop: 10/20/18 20:59 Miscellaneous Information (Pharmacist Discharge Med Rec Consult) 1 ea N/A UD PRN PRN Reason: Consult Stop: 10/18/18 11:40 Multivitamins (Multivitamin Tab) 1 tab PO [facility] Stop: 10/19/18 08:59 Last Admin: 09/21/18 07:47 Dose: 1 tab Documented by: Pantoprazole Sodium (Protonix) 40 mg PO [facility] Stop: 10/21/18 08:59 Last Admin: 09/21/18 07:47 Dose: 40 mg Documented by: Thiamine HCl (Vitamin B-1) 100 mg PO [facility] Stop: 10/19/18 08:59 Last Admin: 09/21/18 07:47 Dose: 100 mg Documented by: (1) CVA (cerebral vascular accident) CVA mechanism: unspecified Qualified Code(s): I63.9 - Cerebral infarction, unspecified
--- NOTE | 2018-09-21 16:27 | Hospitalist Progress Note ---
Date of Service September 21, 2018 Assessment & Plan (1) CVA (cerebral vascular accident): Present on admission with blurry vision and difficulty to find word CT HEAD:Moderate sized acute appearing territorial infarct about the left parieto-occipital distribution. No acute intracranial hemorrhage or midline shift. CTA HEAD: No intracranial aneurysm or abrupt vessel cut off. Extensive plaque within bilateral cavernous carotids with mild stenosis. Hypodensity within the left occipital lobe which suggests an acute to subacute infarct. CTA NECK: Aneurysmal dilatation of the aortic arch, which is only partially included within the [id number]. 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 Extensive atherosclerosis without evidence of a severe stenosis in the cervical arteries. Stenoses less than 50% noted in the proximal right internal carotid artery and origin of the right vertebral artery. MRI brain showed Restricted diffusion throughout the left occipital lobe is consistent with an acute to subacute LOGGER territory infarct. Neurology on board recommended aspirin and plavix 75mg daily for 21 days then stop the aspirin and continue Plavix for a lifetime GI was consulted for termite control service representative use of AC given history of significant GIB from AVM in February. OK as per GI If termite control service representative AC is indicated, and recommended ongoing use of PO PPI 20 mg daily will need to arrange for 14-day Zio monitor requested as an outpatient though termite control service representative anticoagulation is felt to be high risk given his history of GI bleeding. Follow up with neurology in 4 to 6 weeks Follow up with ophthalmology for the blurry vision (2) Sinusitis: (3) Bronchitis: On levaquin PO, will complete 7 days course CXR showed no acute finding Continue Xopenex/Atrovent nebulizer treatments (4) Hypertension: BP stable Continue amlodipine, hydralazine Continue Metoprolol 50mg (5) AAA (abdominal aortic aneurysm): S/P AAA repair in 2008 (6) CKD (chronic kidney disease), stage III: Cr:1.49. Baseline ~1.4 Avoid nephrotoxic agents and possible Stable (7) Hyperlipidemia: Continue statin Sinus pause Asymptomatic No further episodes since Metoprolol decreased to 50mg Case discussed with cardiology and OK from cardiology standpoint to discharge home Follow up with cardiology in 3 to 4 weeks DVT Prophylaxis Heparin SQ CODE STATUS Full Code Disposition Will discharge home today Subjective Pt was seen and examined Sitting in chair with no distress with at bedside Pt said that she feels a little better Continue to have blurry vision, mostly as the day progress I discussed with patient and with in details about the plan Denies any chest pain, palpitation, dizziness and SOB Physical Exam Physical Exam: General- No acute distress Head- atraumatic Eyes- PERRL, EOMI, ENT- decrease hearing function Neck- supple, no JVD Lungs- clear to auscultation Heart- regular rhythm; +systolic murmur Abdomen- normal bowel sounds, soft, nontender Extremities- no calf tenderness Neuro- alert, oriented x 3; PERRL, EOMI; no facial palsy; no dysarthria Skin- warm & dry Results & Data Vital Signs (Past 12 Hours) Vital Signs Temp Pulse Pulse Resp BP Pulse Ox 09/21/18 16:04 36.8 C 80 18 116/75 93 09/21/18 15:54 85 09/21/18 12:06 36.5 C 73 18 102/70 98 09/21/18 08:48 68 09/21/18 07:22 36.8 C 73 16 111/69 91 09/21/18 07:06 75 14 92 (1) CVA (cerebral vascular accident) CVA mechanism: unspecified Qualified Code(s): I63.9 - Cerebral infarction, unspecified
[2018-09-21] MEDS ORDERED: STROKE PATIENT DISCHARGE STA (16:51)
--- NOTE | 2018-09-21 18:02 | Pharmacy Report ---
Pharmacist Stroke Counseling - Date of Service September 21, 2018 - Scope: Pharmacy has been consulted to provide medication discharge counseling for this patient admitted with ischemic stroke as per the Pharmacist Discharge Counseling for Stroke Patients Protocol. - Medications on Discharge: Home Medications Medication Instructions Recorded Confirmed allopurinol 300 mg PO DAILY PRN 02/20/18 09/18/18 amlodipine 10 mg PO QAM 02/20/18 09/18/18 atorvastatin 40 mg PO QAM 02/20/18 09/18/18 hydralazine 10 mg PO BID 04/17/18 09/18/18 aspirin 81 mg PO QAM 09/18/18 09/18/18 fluticasone propionate 2 spray INTRANASAL QAM 09/18/18 09/18/18 folic acid 1 mg PO QAM 09/18/18 09/18/18 multivitamin 1 tab PO QAM 09/18/18 09/18/18 thiamine HCl (vitamin B1) [Vitamin 100 mg PO QAM 09/18/18 09/18/18 B-1] New Rx's Medication Instructions Recorded clopidogrel 75 mg PO QAM 30 Days #30 tab 09/21/18 levofloxacin 500 mg PO DAILY@1100 3 Days #3 tab 09/21/18 metoprolol tartrate 50 mg PO BID 30 Days #60 tab 09/21/18 pantoprazole 40 mg PO DAILY #30 cap 09/21/18 - Action: The above medications, specifically ones for stroke treatment/prophylaxis, have been reviewed in detail with the patient and/or patient personal service representative(s) prior to discharge. This includes indication, common adverse reactions, drug interactions, and medication administration. Medication counseling has been employed using the teach-back method to ensure understanding. - Outcome: The patient and/or patient personal service representative(s) have demonstrated understanding of the medications. Please note, they are aware that the pharmacist will call them within 72 hours post-discharge to confirm that the appropriate medications are being taken and answer any further medication related questions the patient might have at that time. Contact information Individual to be contacted: Patient and/or Phone number: [phone] Best time to call: AM preferably Additional comments: * Met with patient and to review discharge medications. Provided [facility] pillbox. * With patient's poor vision, it was hard for him to read the written instructions. helps out with medications and participated in counseling. * Patient was to be discharged on omeprazole and Plavix. Notified Dr. South of potential interaction in which Plavix efficacy may be reduced. Omeprazole was changed to pantoprazole. * Patient has a history of significant GIB, so GI recommended initiation of PPI in addition to the Plavix and ASA * Reviewed side effects of new medications in detail with patient and * They are aware to stop ASA after 21 days * Patient reports he has not been taking the MVI, folic acid and thiamine for quite awhile. 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 * I also spent some time reviewing which medications patient would need to take tonight, as noted on the discharge instructions * Of note, patient has a listed Plavix intolerance (heart palpitations) which I did not realize until after discharge. He has received a few doses thus far and physician was already aware of intolerance. If patient still tolerating, may consider removing this intolerance from allergy list. Thank you for allowing pharmacy to be involved in the care of this patient. Please call [phone] or [phone] with any additional questions
--- NOTE | 2018-09-22 09:09 | Discharge Summary ---
Date of Service September 21, 2018 Admission HPI Per Admitting Provider Pt is 68 y/o M with PMH HTN, HLD, CKD III, AAA s/p repair in 2008, gout presented to ER with c/o blurry vision, dizziness. Pt states woke up yesterday 09/17/18 with blurry vision, NAILS. Also noticed difficulty walking. Reports that BP was elevated in the 180s/90s yesterday and was having some word finding difficulty. Presented to PCPs office today and was referred to ER secondary to symptoms. Today patient denies any headache. Lungs blurry vision is a little better. Still with dizziness altered gait when walking. Denies any extremity paresthesias or weakness. Denies any choking or dysphasia, facial drooping, slu rred speech. Reports patient was treated for sinus infection with amoxicillin in 07/2018. Reports has had continued sinus congestion and cough productive of clear/white sputum. Reports past month has had some wheezing. Denies any fevers or chills. Denies any falls or head injury. Denies diaphoresis, N/V/D/C, syncope, LOC, vision loss, diplopia, neck pain, CP, SOB, orthopnea, palpitations, sore throat, otalgia, abdominal pain, extremity edema, rashes, urinary symptoms. Admission Exam Per Admitting Provider General: no acute distress, WDWN Head: normocephalic, atraumatic Eyes: PERRL, EOM's intact, conjunctiva non-injected, anicteric ENT: normal inspection external ears, nose, mucous membranes moist Neck: supple, trachea midline, carotid bruits L>R Lungs: no respiratory distress, +diffuse wheezing throughout CV: RRR, no murmur, no pretibial edema Abd: normal BS, soft, non-tender Ext: no cyanosis, no calf tenderness Neuro: A&O x 3, no facial drooping, symmetric eyebrow raise, speech clear, tongue midline, no pronator drift, strength 5/5 upper and lower extremities while testing in bed, decreased peripheral vision to right eye, normal affect Skin: warm, dry Principal Diagnosis CVA (cerebral vascular accident): Sinusitis Bronchitis Hypertension AAA (abdominal aortic aneurysm) CKD (chronic kidney disease), stage III Sinus Pause Discharge Exam General- No acute distress Head- atraumatic Eyes- PERRL, EOMI, ENT- decrease hearing function Neck- supple, no JVD Lungs- clear to auscultation Heart- regular rhythm; +systolic murmur Abdomen- normal bowel sounds, soft, nontender Extremities- no calf tenderness Neuro- alert, oriented x 3; PERRL, EOMI; no facial palsy; no dysarthria Skin- warm & dry Discharge Data Allergies Allergy/AdvReac Type Severity Reaction Status Date / Time lisinopril Allergy Intermediate BP DROP Unverified 09/18/18 09:23 clopidogrel AdvReac Unknown HEART PALP. Verified 09/18/18 09:23 Consultations 09/18/18 09:35 ED Decision to Admit Stat 09/18/18 11:41 Consult Case Management - Discharge Planning Routine Consult Neurology Routine 09/19/18 06:15 Consult Nephrology Routine 09/19/18 11:23 Consult Gastroenterology Routine 09/19/18 11:24 Consult Cardiology Routine Ordered Studies 09/18/18 08:59 CT angio head w con Stat CT angio neck with con Stat CT head/brain wo con Stat 09/18/18 11:41 MR brain wo/w con Routine MRI OF THE BRAIN COMBO CLINICAL HISTORY: Strokelike symptoms. COMPARISON STUDY: CT of the brain dated 09/18/2018. TECHNIQUE: MRI of the brain was performed utilizing various T1 and T2-weighted sequences in the axial, sagittal, and coronal planes. Contrast-enhanced sequences were acquired following the administration of 8 cc of Gadavist. The examination is modestly degraded by motion artifact. FINDINGS: Brain parenchyma: There is restricted diffusion identified throughout the left occipital lobe consistent with acute to subacute ischemia. No additional foci of restricted diffusion are identified. Right frontal encephalomalacia is consistent with a remote infarct. Small chronic lacunar infarcts identified within the right cerebellar hemisphere and the right caudate head. There is age- related involutional change noting moderate subcortical and periventricular microangiopathic disease. There is no hemorrhage or mass effect. No enhancing mass lesion is identified on the postcontrast images. No extra-axial fluid collection is seen. The cerebellar tonsils are normal in configuration. Ventricles, sulci, and cisterns: Prominent secondary to involutional change. Pituitary and sella: Unremarkable. Intracranial vasculature: Normal flow voids are maintained at the skull base. Orbits: The bony orbits are grossly intact. Orbital contents are normal in appearance. Sinuses and mastoids: There is nearly opacification of the maxillary antra. Advanced mucosal thickening is also seen within the ethmoid sinuses. Mild mucosal thickening is noted in the frontal sinuses. Mastoid air cells are clear. Calvarium: Unremarkable. Cervical cord: Partially visualized cervical spinal cord is normal in morphology and signal intensity. IMPRESSION: 1. Restricted diffusion throughout the left occipital lobe is consistent with an acute to subacute INC[employer] SUPERVISOR territory infarct. 2. No additional foci of acute ischemia are identified. 3. There is no hemorrhage or mass effect. 4. Senescent change and remote infarcts as above. Electronically signed by: Osmany George M.D. 09/18/2018 4:52 PM Dictated: 09/18/18 1648 Transcribed: 09/18/18 1648 XR chest 2V routine CLINICAL HISTORY: R/O fluid overload COMPARISON STUDY: Chest radiograph September 18, 2018 at 9:18 AM and chest radiograph February 20, 2018. FINDINGS: Left pleural calcification and scarring is chronic. This is unchanged. There is no pneumothorax or pleural effusion. There is no evidence for pulmonary edema or pneumonia. Cardiomediastinal silhouette is stable from earlier exams. Endoscopic clip projects over the proximal stomach. IMPRESSION: No acute cardiopulmonary findings. No change in appearance of the chest. Electronically signed by: Filiberto Donahue M.D. 09/18/2018 3:43 PM Dictated: 09/18/18 1542 Transcribed: 09/18/[address] angio neck with con CLINICAL HISTORY: 68 years-old Male presenting with Pt c/o trouble walking, aphasia, visual disturbance, concern for stroke. TECHNIQUE: Multidetector CT angiography of the neck was performed after the administration of intravenous contrast. 3-D volumetric and/or maximum intensity projection (MIP) images were subsequently reconstructed for review. IV contrast: 120 mL of Optiray 320. One or more dose lowering techniques were used consistent with the principles of ALARA (as low as reasonably achievable), including automatic exposure control, mA or kV adjustment to individual patient size, and/or use of iterative reconstruction. Stenosis measurements were based on NASCET-like criteria (distal lumen diameter as the denominator for stenosis measurement). COMPARISON: None. CT DOSE (mGy.cm): The estimated cumulative dose is 1106.53 mGy.cm. FINDINGS: Materials Management Supervisor topogram: Unremarkable. Aortic arch: Extensive calcified and noncalcified atherosclerotic plaque of the aortic arch, which is irregular and mildly ectatic measuring 4.4 cm in diameter in comparison to the partially visualized more distal aortic arch. The proximal aortic arch is nonocclusive within the [id number]. Innominate artery: The origin of the innominate is not included within the [id number]. Extensive atherosclerotic irregularity of the lumen of the innominate. Right subclavian artery: Patent. Right common carotid artery: Calcified and noncalcified atherosclerotic plaque primarily at the origin and proximal portion of the right common carotid artery. Right internal and external carotid arteries: Densely calcified carotid bifurcation predominantly involving the origin of the right internal carotid artery. The degree of heavily calcified plaque degrades accuracy of stenosis measurement. Allowing for this there is less than 30% stenosis resulting. Significant luminal irregularity of the proximal course of the right ICA with a second site of stenosis less than 40% at C3-4. External carotid artery widely patent. Left common carotid artery: Mild atherosclerotic irregularity of the common carotid artery. Left internal and external carotid arteries: Densely calcified atherosclerotic plaque as well as a lesser component of noncalcified plaque at the carotid bifurcation predominantly involving the origin of the left internal carotid artery. No resulting significant stenosis. Remainder of the course of the left ICA widely patent as is the left ECA. Left subclavian artery: Aneurysmal dilatation of the origin and proximal course of the left subclavian artery measuring 2.4 cm in diameter. Significant noncalcified atherosclerotic plaque results in severe luminal irregularity though there is less than 25% stenosis. The left subclavian artery returns to a normal caliber prior to the takeoff of the left vertebral artery. Vertebral arteries: Codominant vertebral arteries. Atherosclerotic plaque at the origin and proximal course of the right vertebral artery resulting in stenosis less than 50%. No stenosis of the origin of the left vertebral artery. Remainder of the courses of the bilateral vertebral arteries patent. Other: Extensive atherosclerotic plaque of the cavernous portions of the internal carotid arteries and minimally in the intradural portions of the vertebral arteries. Soft tissues of the neck normal allowing for the phase of contrast. Mild degenerative changes of the cervical spine. Opacification of the maxillary sinuses. Lung apices clear. IMPRESSION: 1. Aneurysmal dilatation of the aortic arch, which is only partially included within the [id number]. 2. 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 3. Extensive atherosclerosis without evidence of a severe stenosis in the cervical arteries. Stenoses less than 50% noted in the proximal right internal carotid artery and origin of the right vertebral artery. Electronically signed by: Santiago Hernandez M.D. 09/18/2018 9:38 AM Dictated: 09/18/18926 Transcribed: 09/18/18926 CTA ANGIOGRAPHY OF THE HEAD CLINICAL HISTORY: Visual disturbance. Difficulty walking. Stroke evaluation. COMPARISON STUDY: MRA of the head March 10, 2009. Head CT April 17, 2018. TECHNIQUE: Helical axial images of the head were obtained following uneventful intravenous administration of 120 cc of Optiray 320. Automated exposure control was utilized for the study. A dose lowering technique was utilized adhering to the principles of ALARA. FINDINGS: Please note that the CTA of the neck will be reported separately. No acute intracranial hemorrhage, midline shift or mass effect is present. Old right frontal lobe infarct is noted. There is hypodensity within the left occipital lobe which suggests an acute to subacute infarct. There is no significant mass effect. Ventricular system is unremarkable. The basilar cisterns are patent. Bilateral maxillary sinus air-fluid levels are noted. There is also mild ethmoid sinus mucosal thickening. The bilateral M1, M2, A1 and A2 segments are patent. There is no abrupt vessel cut off. There is extensive plaque within the bilateral cavernous carotids with mild stenosis. No intracranial aneurysm is identified. No abrupt vessel cut off within the posterior circulation is noted. IMPRESSION: 1. No intracranial aneurysm or abrupt vessel cut off. Extensive plaque within bilateral cavernous carotids with mild stenosis. 2. Hypodensity within the left occipital lobe which suggests an acute to subacute infarct. 3. Bilateral maxillary and ethmoid sinusitis, possibly acute. Electronically signed by: Filiberto Donahue M.D. 09/18/2018 9:30 AM Dictated: 09/18/18917 Transcribed: 09/18/18917 CT head/brain wo con CLINICAL HISTORY: 68 years-old Male with Stroke evaluation . Acute strokelike symptoms TECHNIQUE: Multiple axial CT images of the head were obtained without contrast. A dose lowering technique was utilized adhering to the principles of ALARA. COMPARISON: CT head 04/17/2018. FINDINGS: No acute intracranial hemorrhage, midline shift, intracranial mass, hydrocephalus, or abnormal extra-axial collection. Age-related involutional changes. Encephalomalacia from remote infarct about the right frontal lobe redemonstrated. Scattered white matter hypodensities are suggestive of chronic microvascular ischemic disease. Cerebral vascular calcifications are noted. Gabriela scent calcifications of the right lentiform nucleus. Ill-defined hypodensity with blurring of the bourgeois-white interface involves the left occipital lobe. This measures up to approximate 5.3 x 3.6 cm. Additionally, there is probable infarct extension into the posterior left parietal lobe, image 16 series 2. The calvarium is intact. Mastoid air cells and middle ear cavities are clear. Moderate mucosal thickening of the ethmoid air cells. Moderate to severe mucosal thickening of the visualized maxillary sinuses. The soft tissues and orbits are unremarkable. IMPRESSION: 1. Moderate sized acute appearing territorial infarct about the left parieto- occipital distribution. 2. No acute intracranial hemorrhage or midline shift. 3. Chronic findings as above. The above report was generated using voice recognition software. It may contain grammatical, syntax or spelling errors. Electronically signed by: Garret Degroot M.D. 09/18/2018 9:18 AM Dictated: 09/18/18911 Transcribed: 09/18/18911 XR chest 1V portable HISTORY: 68 years-old Male Pt c/o visual disturbance acute strokelike symptoms COMPARISON: Chest radiograph 02/20/2018, chest CT 01/22/2010 TECHNIQUE: Portable AP view of the chest FINDINGS: Cardiomediastinal and hilar silhouettes are unchanged. Chronic pleural parenchymal scarring about the left upper lung redemonstrated. There is no pneumothorax, large pleural effusion or overt pulmonary edema identified. Surgical clip projects over the abdominal left upper quadrant. Degenerative changes of the shoulders and spine. Calcification the thoracic aortic arch. IMPRESSION: Chronic changes as above without acute process. The above report was generated using voice recognition software. It may contain grammatical, syntax or spelling errors. Electronically signed by: Garret Degroot M.D. 09/18/2018 9:32 AM Dictated: 09/18/18929 Transcribed: 09/18/18929 Hospital Course (1) CVA (cerebral vascular accident): Present on admission with blurry vision and difficulty to find word CT HEAD:Moderate sized acute appearing territorial infarct about the left parieto-occipital distribution. No acute intracranial hemorrhage or midline shift. CTA HEAD: No intracranial aneurysm or abrupt vessel cut off. Extensive plaque within bilateral cavernous carotids with mild stenosis. Hypodensity within the left occipital lobe which suggests an acute to subacute infarct. CTA NECK: Aneurysmal dilatation of the aortic arch, which is only partially included within the [id number]. 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 Extensive atherosclerosis without evidence of a severe stenosis in the cervical arteries. Stenoses less than 50% noted in the proximal right internal carotid artery and origin of the right vertebral artery. MRI brain showed Restricted diffusion throughout the left occipital lobe is consistent with an acute to subacute [employer] SUPERVISOR territory infarct. 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 Follow up with neurology in 4 to 6 weeks Follow up with ophthalmology for the blurry vision (2) Sinusitis: (3) Bronchitis: On levaquin PO, will complete 7 days course CXR showed no acute finding Continue Xopenex/Atrovent nebulizer treatments (4) Hypertension: BP stable Continue amlodipine, hydralazine Continue Metoprolol 50mg (5) AAA (abdominal aortic aneurysm): S/P AAA repair in 2008 (6) CKD (chronic kidney disease), stage III: Cr:1.49. Baseline ~1.4 Avoid nephrotoxic agents and possible Stable (7) Hyperlipidemia: Continue statin Sinus pause Asymptomatic No further episodes since Metoprolol decreased to 50mg Case discussed with cardiology and OK from cardiology standpoint to discharge home Follow up with cardiology in 3 to 4 weeks DVT Prophylaxis Heparin SQ CODE STATUS Full Code Disposition Will discharge home today Total Time Total Time Spent Total Time Spent (In Minutes): 35 minutes Total Time Includes: Examination of the Patient, Discharge Planning, Medication Reconciliation, Communication With Other Providers and Other Discharge Plan Discharge Items Patient Disposition: Home - Self-Care Reason For Visit: STROKE Discharge Diagnosis: CVA (cerebral vascular accident): Sinusitis Bronchitis Hypertension AAA (abdominal aortic aneurysm) CKD (chronic kidney disease), stage III Sinus Pause Discharge Goals: Decrease discomfort, Improve disease control, Increase independence and Improve nutritional status Activity: Resume your previous activity Non-emergency contact: Primary Care Provider and Lamp Tester And Inspector Call non-emergency contact if: you have any medication questions Follow-up/Referrals: Jairo Kingston MD [Primary Care Provider] - Diet: Heart Healthy Add Provider Instructions: Follow up with your primary care provider Dr. Kingston on 09/27 @ 1:05 PM Follow up with cardiology (Cardiology office will contact you for the appointment) Follow up with neurology in 4 to 6 weeks (office will contact you for the appointment) Please call your eyes doctor to schedule an appointment for the blurry vision due to the left occipital lobe infarct Your physician will arrange for 14-day Zio (heart) monitor as an outpatient Starting on plavix and aspirin, Please monitor for any abnormal bleeding such as blood in your stool and urine continue aspirin 81 mg for 21 days then stop the aspirin. (If able to tolerate it) Continue Plavix for a lifetime (if able to tolerate it) Fall precaution No driving for now due to the blurry vision 1.5L fluid restriction daily Check BMP within 1 week to monitor electrolytes Metoprolol decreased from 100mg to 50mg twice a day Complete the course of the antibiotic Avoid any NSAIDs such as Motrin, aleve, advil, naproxen, ibuprofen due to risk of bleeding Prescriptions: New clopidogrel 75 mg Tablet 75 mg PO QAM 30 Days Qty: 30 RF: 0 levofloxacin 500 mg Tablet 500 mg PO DAILY@1100 3 Days Qty: 3 RF: 0 pantoprazole 40 mg Tablet,Delayed Release (Dr/Ec) 40 mg PO QAM 30 Days Qty: 30 RF: 0 Continued atorvastatin 40 mg tablet 40 mg PO QAM RF: 0 amlodipine 10 mg tablet 10 mg PO QAM RF: 0 allopurinol 300 mg tablet 300 mg PO DAILY PRN (Reason: gout) RF: 0 hydralazine 10 mg tablet 10 mg PO BID RF: 0 fluticasone propionate 50 mcg/actuation spray,suspension 2 spray intranasal QAM RF: 0 multivitamin Tablet 1 tab PO QAM RF: 0 thiamine HCl (vitamin B1) [Vitamin B-1] 100 mg tablet 100 mg PO QAM RF: 0 aspirin 81 mg Tablet,Delayed Release (Dr/Ec) 81 mg PO QAM RF: 0 folic acid 1 mg tablet 1 mg PO QAM RF: 0 Changed metoprolol tartrate 50 mg tablet 50 mg PO BID 30 Days Qty: 60 RF: 0 Discontinued ibuprofen [Advil] 200 mg Tablet 200 mg PO Q6H PRN (Reason: Pain) RF: 0 Stand-Alone Forms: Medications to Prevent Stroke, [facility] Discharge Orders: Discharge Order (Routine); Ordered 09/21/18 Ordered By: Andrew South Admission Data Admit Date/Time: 09/18/18 10:34 Attending Provider: Andrew South Admit Provider: Torey Reyes Primary Care Provider: Jairo Kingston Other Providers: Torey Reyes ; Patricio Ramirez ; Es Rodríguez ; Aaron Jaeger ; Jacinto Vega ; Ramos Jefferson ; Jaciel Montes De Oca ; Valentin Levy ; Rosendo Smith ; Ghanshyam Osorio ; Vanessa Mccord ; Sophy Norman Service: Telemetry Other Interventions: Discharge Summary Assessment (RN) Last Done: 09/21/18 16:56 DC Date/Time DO NOT enter until pt leaves facility: 09/21/18 18:36
--- NOTE | 2018-09-22 15:55 | Pharmacy Report ---
Pharmacist Post D/C Phone Note - Phone Note: Date of phone call: September 22, 2018. Individual with whom pharmacist spoke to: ZULMA MERA The patient and/or patient phlebotomy services representative(s) were unable to be reached for a follow-up phone call within the 72 hour time frame. Discharge counseling pharmacist contact information has already been provided to the patient should questions arise. Thank you for allowing us to be involved in the care of this patient. - Home Medications: Home Medications Medication Instructions Recorded Confirmed allopurinol 300 mg PO DAILY PRN 02/20/18 09/18/18 amlodipine 10 mg PO QAM 02/20/18 09/18/18 atorvastatin 40 mg PO QAM 02/20/18 09/18/18 hydralazine 10 mg PO BID 04/17/18 09/18/18 aspirin 81 mg PO QAM 09/18/18 09/18/18 fluticasone propionate 2 spray INTRANASAL QAM 09/18/18 09/18/18 folic acid 1 mg PO QAM 09/18/18 09/18/18 multivitamin 1 tab PO QAM 09/18/18 09/18/18 thiamine HCl (vitamin B1) [Vitamin 100 mg PO QAM 09/18/18 09/18/18 B-1] New Rx's Medication Instructions Recorded clopidogrel 75 mg PO QAM 30 Days #30 tab 09/21/18 levofloxacin 500 mg PO DAILY@1100 3 Days #3 tab 09/21/18 metoprolol tartrate 50 mg PO BID 30 Days #60 tab 09/21/18 pantoprazole 40 mg PO QAM 30 Days #30 tab 09/21/18
== END 2018-09-21 18:36 | disposition home or self-care (01) | DRG 65 ==
LOC: ED 08:43 → SUATTDRO 10:34 → 2N 10:34
DX: R26.2 Difficulty in walking, not elsewhere classified; I45.5 Other specified heart block; H53.8 Other visual disturbances; E87.1 Hypo-osmolality and hyponatremia; I71.4 Abdominal aortic aneurysm, without rupture; R42 Dizziness and giddiness; I63.332 Cerebral infarction due to thrombosis of left posterior cerebral artery; N17.9 Acute kidney failure, unspecified; Z79.82 Long term (current) use of aspirin; N18.3 Chronic kidney disease, stage 3 (moderate); R00.0 Tachycardia, unspecified; I12.9 Hypertensive chronic kidney disease with stage 1 through stage 4 chronic kidney disease, or unspecified chronic kidney disease; J32.9 Chronic sinusitis, unspecified; Z79.899 Other long term (current) drug therapy; F17.290 Nicotine dependence, other tobacco product, uncomplicated; E78.5 Hyperlipidemia, unspecified; J40 Bronchitis, not specified as acute or chronic; M10.9 Gout, unspecified

== ENCOUNTER 2019-03-25 06:34 | Inpatient (IN) ==
[2019-03-25] MEDS ORDERED: ONDANSETRON INJ 2 MG/ML 2 ML VIAL IV STA (07:13)
[2019-03-25] MEDS ORDERED: MoRPHine SULFATE 4 MG/ML 1 ML CARP\\VIAL IV STA ×3 (07:13→13:26)
[2019-03-25 07:15] LABS: Basophils # (auto) 0.04 K/uL (0-0.2); Basophils % (auto) 0.4 %; Eosinophils # (auto) 0.02 K/uL (0-0.5); Eosinophils % (auto) 0.2 %; Hematocrit (blood only) 47.4 % (42-52); Immature Granulocytes # (auto) 0.02 K/uL (0.00-0.02); Immature Granulocytes % (auto) 0.2 %; Lymphocytes # (auto) 1.38 K/uL (1.2-3.4); Lymphocytes % (auto) 12.4 %; Mean Corpuscular Hemoglobin 33.8 pg (25-34); Mean Corpuscular Hgb Conc 33.8 g/dL (32-36); Mean Platelet Volume 10.8 fL (7.4-10.4); Monocytes # (auto) 0.59 K/uL (0.11-0.59); Monocytes % (auto) 5.3 %; Neutrophils # (auto) 9.06 K/uL (1.4-6.5); Neutrophils % (auto) 81.5 %; Platelet Count 180 K/uL (130-400); RDW Coefficient of Variation 13.5 % (11.5-14.5); RDW Standard Deviation 49.9 fL (36.4-46.3); Red Blood Count 4.74 M/uL (4.7-6.1); White Blood Count 11.11 K/uL (4.8-10.8)
[2019-03-25] MEDS ORDERED: SODIUM CHLORIDE 0.9% 1000ML 1,000 ML IV SCH ×2 (07:15→08:55)
--- NOTE | 2019-03-25 07:20 | Emergency Department Note ---
History of Present Illness General Chief complaint: Abdominal Pain Stated complaint: R SIDED PAIN, VOMITING Time Seen by Provider: 03/25/19 07:08 History of Present Illness Maximum Pain Intensity: 5 This 68-year-old male presents the ER with his with chief complaint of right-sided abdominal pain which has been intermittent since Tuesday. The patient states it is sharp in nature and rates it at an 8 out of 10. He states it occurs intermittently and lasts for about 10 minutes. The patient states he is moving his bowels but he has had small bowel movements her last 3 movements. The patient denies any urinary symptoms of frequency, urgency, dysuria or hematuria. The patient admits to nausea and vomiting. The patient denies any fever or chest pain. Home Medications Home Medications Medication Instructions Recorded Confirmed Type allopurinol 300 mg PO DAILY PRN 02/20/18 03/25/19 History amlodipine 10 mg PO QAM 02/20/18 03/25/19 History atorvastatin 80 mg PO QAM 03/25/19 03/25/19 History clopidogrel 75 mg PO QAM 03/25/19 03/25/19 History metoprolol tartrate 50 mg PO BID 03/25/19 03/25/19 History pantoprazole 40 mg PO QAM 03/25/19 03/25/19 History Allergies Allergy/AdvReac Type Severity Reaction Status Date / Time lisinopril Allergy Intermediate BP DROP Unverified 03/25/19 08:05 Past Med/Surg History Medical History AAA (abdominal aortic aneurysm) (Chronic) S/P repair Acute blood loss anemia (Resolved) Acute kidney injury superimposed on chronic kidney disease (Resolved) CKD (chronic kidney disease), stage III (Chronic) GI bleed (Resolved) Gout (Chronic) Hyperlipidemia (Chronic) Hypertension (Chronic) Surgical History History of lumbar surgery (Chronic) 1999 History of tonsillectomy and adenoidectomy (Chronic) Hx of colonoscopy (Chronic) Hx of hernia repair (Chronic) lysis of adhesions, incisional hernia repair laparoscopically 01/28/2010 at [facility] - Dr Desouza S/P AAA repair (Chronic) 01/13/2009 - Dr Suazo Family History Other AAA (abdominal aortic aneurysm) Hypertension Social History Preferred Language: [place]an Communication Ability: Effective 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 Quit 1998 ; Hx Alcohol Use: Yes Alcohol type: beer Alcohol type Comment: 3 beers a day Alcohol Intake Frequency Comment: Last drink 2 days ago Hx Substance Use: No Review of Systems A total of 10 systems reviewed and were otherwise negative Physical Exam Vital Signs Vital Signs - 24 hr 03/25/19 06:39 03/25/19 06:53 03/25/19 07:27 Temperature 36.4 C L Temperature Source Oral Pulse Rate 77 Pulse Rate [Apical] 76 Pulse Rate from SpO2 Sensor Respiratory Rate 20 22 Respiratory Effort / Characteristics Non-Labored Respiratory Depth Normal Normal Blood Pressure 85/48 L Blood Pressure [Right Arm] 152/96 H Blood Pressure Mean 60 Blood Pressure Mean [Right Arm] 114 Pulse Oximetry 92 95 96 Oxygen Delivery Method Room Air Room Air Room Air Sepsis Recent Fever Within 48 Hours No Sepsis New/Unexplained Change in Mental Status No Sepsis Action Taken by Nursing No Action Required 03/25/19 07:35 03/25/19 08:16 03/25/19 08:31 Temperature Temperature Source Pulse Rate 64 59 L Pulse Rate [Apical] Pulse Rate from SpO2 Sensor 64 59 L Respiratory Rate 21 20 Respiratory Effort / Characteristics Respiratory Depth Blood Pressure 151/83 H 146/81 H Blood Pressure [Right Arm] Blood Pressure Mean 89 99 Blood Pressure Mean [Right Arm] Pulse Oximetry 94 95 96 Oxygen Delivery Method Room Air Sepsis Recent Fever Within 48 Hours Sepsis New/Unexplained Change in Mental Status Sepsis Action Taken by Nursing 03/25/19 09:00 03/25/19 09:28 03/25/19 09:32 Temperature Temperature Source Pulse Rate 63 66 64 Pulse Rate [Apical] Pulse Rate from SpO2 Sensor 63 65 64 Respiratory Rate 20 22 22 Respiratory Effort / Characteristics Respiratory Depth Blood Pressure 149/82 H 149/96 H 167/92 H Blood Pressure [Right Arm] Blood Pressure Mean 89 102 111 Blood Pressure Mean [Right Arm] Pulse Oximetry 93 96 93 Oxygen Delivery Method Sepsis Recent Fever Within 48 Hours Sepsis New/Unexplained Change in Mental Status Sepsis Action Taken by Nursing 03/25/19 10:00 03/25/19 10:30 Temperature Temperature Source Pulse Rate 67 69 Pulse Rate [Apical] Pulse Rate from SpO2 Sensor 67 71 Respiratory Rate 22 21 Respiratory Effort / Characteristics Respiratory Depth Blood Pressure 175/96 H 167/100 H Blood Pressure [Right Arm] Blood Pressure Mean 130 133 Blood Pressure Mean [Right Arm] Pulse Oximetry 93 95 Oxygen Delivery Method Sepsis Recent Fever Within 48 Hours Sepsis New/Unexplained Change in Mental Status Sepsis Action Taken by Nursing VITALS: Were reviewed. The patient's blood pressure noted in triage was 85/48. In the room the patient's blood pressure was 104/71. GENERAL: 68-year-old male appears in no acute distress. MENTAL Status alert and oriented x3. MOUTH: Mucosa is slightly dry. NECK: Supple, no lymphadenopathy noted. No carotid bruits noted. LUNGS: Clear auscultation without wheezes rales or rhonchi. CARDIAC: Regular rate and rhythm without murmur. Pulses is full and equal throughout. BACK: No CVA tenderness noted. ABDOMEN: Positive bowel sounds all 4 quadrants. Soft, tenderness palpation in the right upper quadrant otherwise nontender without organomegaly or masses. Positive Ramirez sign EXTREMITIES: No cyanosis or edema noted. Course Administered Medications Sodium Chloride (Nss 1000ml) 1,000 mls @ 250 mls/hr IV .Q4H [facility] Stop: 03/25/19 12:54 Last Admin: 03/25/19 09:09 Dose: 250 mls/hr Documented by: [id number] Ioversol (Optiray 320 100ml) 94 ml IV ONCE PRN PRN Reason: Interaction Checking Stop: 03/29/19 09:16 Last Admin: 03/25/19 09:18 Dose: 94 ml Documented by: [id number] Discontinued Medications Sodium Chloride (Nss 1000ml) 1,000 mls @ 999 mls/hr IV .Q1H1M [facility] Stop: 03/25/19 08:15 Last Infusion: 03/25/19 08:31 Dose: 0 mls/hr Documented by: [id number] Admin: 03/25/19 07:30 Dose: 999 mls/hr Documented by: [id number] Morphine Sulfate (Morphine Sulfate) 4 mg IV NOW STA Stop: 03/25/19 07:14 Last Admin: 03/25/19 07:33 Dose: 4 mg Documented by: [id number] Morphine Sulfate (Morphine Sulfate) 4 mg IM NOW STA Stop: 03/25/19 10:23 Last Admin: 03/25/19 10:32 Dose: Not Given Documented by: [id number] Morphine Sulfate (Morphine Sulfate) 4 mg IV NOW STA Stop: 03/25/19 10:27 Last Admin: 03/25/19 10:29 Dose: 4 mg Documented by: [id number] Ondansetron HCl (Zofran) 4 mg IV NOW STA Stop: 03/25/19 07:14 Last Admin: 03/25/19 07:33 Dose: 4 mg Documented by: [id number] Medical Decision Making Differential Diagnosis Acute gastritis, peptic ulcer disease, acute cholecystitis, cholelithiasis, small bowel obstruction Medical Records Attestation: I reviewed the patient's medical records. Home Medications Current Medication List: was personally reviewed by me Laboratory Data Attestation: I reviewed the patient's lab results. Result diagrams: 03/25/19 06:56 03/25/19 06:56 Lab Results 03/25/19 03/25/19 03/25/19 Range/Units 06:45 06:56 06:56 WBC 11.11 H (4.8-10.8) K/uL RBC 4.74 (4.7-6.1) M/uL Hgb 16.0 (14.0-18.0) g/dL Hct 47.4 (42-52) % MCV 100.0 (80-100) fL MCH 33.8 (25-34) pg MCHC 33.8 (32-36) g/dL RDW Std Deviation 49.9 H (36.4-46.3) fL RDW Coeff of Chaka 13.5 (11.5-14.5) % Plt Count 180 (130-400) K/uL MPV 10.8 H (7.4-10.4) fL Immature Gran % (Auto) 0.2 % Neut % (Auto) 81.5 % Lymph % (Auto) 12.4 % Pratt % (Auto) 5.3 % Eos % (Auto) 0.2 % Baso % (Auto) 0.4 % Immature Gran # (Auto) 0.02 (0.00-0.02) K/uL Neut # (Auto) 9.06 H (1.4-6.5) K/uL Lymph # (Auto) 1.38 (1.2-3.4) K/uL Pratt # (Auto) 0.59 (0.11-0.59) K/uL Eos # (Auto) 0.02 (0-0.5) K/uL Baso # (Auto) 0.04 (0-0.2) K/uL Sodium 137 (136-145) mmol/L Potassium 4.0 (3.5-5.1) mmol/L Chloride 102 (98-107) mmol/L Carbon Dioxide 26 (21-32) mmol/L Anion Gap 8.0 (3-11) BUN 18 (7-18) mg/dl Creatinine 1.92 H (0.6-1.4) mg/dl Est Cr Clr Drug Dosing 36.8 ml/min Est GFR ( Amer) 40.0 Est GFR (Non-Af Amer) 34.5 BUN/Creatinine Ratio 9.3 L (10-20) Glucose 138 H (70-99) mg/dl Calcium 9.9 (8.5-10.1) mg/dl Total Bilirubin 0.6 (0.2-1) mg/dl AST 15 (15-37) U/L ALT 18 (12-78) U/L Alkaline Phosphatase 105 (45-117) U/L Total Protein 9.0 H (6.4-8.2) gm/dl Albumin 3.6 (3.4-5.0) gm/dl Globulin 5.4 H (2.5-4.0) gm/dl Albumin/Globulin Ratio 0.7 L (0.9-2) Lipase 142 (73-393) U/L Urine Color Dark Yellow Urine Appearance Clear (Clear) Urine pH 6.0 (4.5-7.5) Ur Specific [place] 1.023 (1.000-1.030) Urine Protein 3+ H (Negative) Urine Glucose (UA) Negative (Negative) Urine Ketones Negative (Negative) Urine Blood Negative (Negative) Urine Nitrite Negative (Negative) Urine Bilirubin Negative (Negative) Urine Urobilinogen Negative (Negative) Ur Leukocyte Esterase Negative (Negative) Urine WBC (Auto) 1-5 (0-5) /hpf Urine RBC (Auto) 0-4 (0-4) /hpf U Hyaline Cast (Auto) 5-10 H (0-5) /lpf U Epithel Cells (Auto) 10-20 H (0-5) /lpf Urine Bacteria (Auto) Negative (Negative) Imaging Data Attestation: I personally reviewed and interpreted this imaging study as follows: My Impression: No gallstones noted. Small bowel obstruction Radiologist's Impression: US gallbladder HISTORY: 68 years-old Male Right upper quadrant pain . Acute right upper quadrant abdominal pain COMPARISON: Chest CT 01/22/2010 TECHNIQUE: Multiple real-time sonographic images of the abdominal right upper quadrant were obtained assessing grayscale appearance and color flow FINDINGS: Pancreas is obscured by bowel gas. Trace perihepatic free fluid. Is mildly inc reased echogenicity of the liver without hepatic mass lesion or intrahepatic biliary ductal dilation. No marginal nodularity to suggest cirrhosis. Common bile duct is normal, 6 mm. Mild gallbladder distention without wall thickening, or shadowing cholelithiasis. Nonspecific prominent of bowel noted within the abdominal right upper quadrant. Imaged right kidney is unremarkable without hydronephrosis. IMPRESSION: 1. Mild gallbladder distention without cholelithiasis or wall thickening. 2. Nonspecific trace perihepatic free fluid. 3. No biliary ductal dilation. 4. Mildly increased echogenicity of liver may reflect hepatic steatosis. The above report was generated using voice recognition software. It may contain grammatical, syntax or spelling errors. Electronically signed by: Garret Degroot M.D. 03/25/2019 8:22 AM Dictated: 03/25/19818 Transcribed: 03/25/[address] WITH IV CONTRAST CT DOSE: 695.99 mGy.cm HISTORY: Acute mid abdominal pain with history of abdominal aortic aneurysm right mid abd pain, hx aaa/hernias TECHNIQUE: Multiaxial CT images of the abdomen and pelvis were performed following the IV administration of 94 cc of Optiray 320, A dose lowering technique was utilized adhering to the principles of ALARA. COMPARISON STUDY: CTA 02/20/2018 FINDINGS: Left lung base is generally clear. Minimal subsegmental right basilar atelectas is. There is no pneumatosis or pneumoperitoneum. Imaged inferior cardiac chambers are moderately enlarged. Aortic valvular prosthesis. Coronary arterial calcifications. Severe mixed plaque of the descending thoracic aorta. Fusiform aneurysmal dilation redemonstrated measuring up to approximately 4.0 cm. Fusiform aneurysm dilation of the abdominal aorta at the level the renal arteries measures 3.7 x 3.8 cm. Multifocal narrowing of the aortic branch vessels. 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 Unremarkable IVC. Hepatic and portal veins are within normal limits. Probable cyst of the left hepatic lobe, 8 mm. Liver is otherwise unremarkable. Mild gallbladder distention without cholelithiasis. Patency of the hepatic and portal veins. Spleen, and pancreas are unremarkable. Mild thickening of the adrenal glands suggests hyperplasia. Mild nonspecific bilateral perinephric stranding. Mild bilateral cortical thinning. No renal or ureteral calculi or obstructive uropathy. Mild urinary bladder wall thickening with partial distention. Mild prostamegaly. Small fat filled inguinal hernias. Prominent veins are noted within the left inguinal canal extending towards the left hemiscrotum. No adenopathy. Trace abdominal pelvic ascites. Colonic diverticulosis without acute diverticulitis. Terminal ileum is unremarkable. Noninflamed appendix. Deco mpressed distal small bowel. Possible loops of small bowel within the midabdomen are dilated with air-fluid levels measuring up to 3.2 cm transversely. Transition point noted within the lateral right mid lower abdomen with decompressed small bowel loops seen distally. Mild interloop edema with mild small bowel wall thickening noted within this area. Postoperative changes from prior ventral abdominal wall hernia repair. Small fat filled periumbilical hernia, diastases 1.6 cm. Additional fat filled supraumbilical hernia noted, diastases of 6.5 cm. Degenerative changes of the spine, pelvis and hips. Posterior interbody nova and screw fusion hardware of the lower lumbar spine. IMPRESSION: 1. Moderate grade small bowel obstruction with transition point noted within the lateral right midabdomen, likely secondary to underlying small bowel adhesions. There is mild wall thickening with reactive interloop edema adjacent to the transition point. 2. Trace abdominopelvic ascites. No drainable fluid collection or evidence of perforation. 3. 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 No evidence of aneurysm rupture. 4. Colonic diverticulosis. 5. Additional findings as above. Electronically signed by: Garret Degroot M.D. 03/25/2019 9:50 AM Dictated: 03/25/19933 Transcribed: 03/25/19933 Blood Pressure Blood Pressure Findings: Normal blood pressure MDM Narrative Patient was evaluated. IV access was obtained. Patient was given 1 L normal saline wide open. The patient was given Zofran 4 mg IV push for nausea and morphine 4 mg IV for pain. CBC and differential, renal profile, LFTs and lipase levels were ordered. Urinalysis was ordered. Ultrasound of the gallbladder was ordered interpreted by the radiologist and myself as above. Labs were reviewed. White count was slightly elevated 11,000. BUN and creatinine were also reviewed BUN was normal at 18 creatinine slightly high at 1.92. LFTs were normal. Urine revealed 3+ proteins otherwise negative for blood, nitrates and leukocytes. Negative bacteria. Ultrasound of the gallbladder revealed distended gallbladder but no evidence of gallbladder wall thickening or stones. Bile duct was within normal limits. No hydronephrosis noted of the right kidney. The patient was independently evaluated by Dr. kaur. A CT of the abdomen was ordered for further evaluation. CT revealed moderate small bowel obstruction. Dr. Morrison was consulted for admission. I also spoke with Dr. Sen, surgery about the patient. Impression & Plan Small bowel obstruction Discharge Plan Visit Data Chief Complaint: Abdominal Pain Stated Complaint: R SIDED PAIN, VOMITING ED Provider: Danna Kaur ED Midlevel Provider: Patricia Brunner Discharge Problem: Small bowel obstruction Patient Disposition: Being Evaluated by Hospitalist Condition: Good Forms Stand Alone Forms: Call Back Authorization, [facility] Prescriptions Prescriptions: No Action amlodipine 10 mg tablet 10 mg PO QAM RF: 0 allopurinol 300 mg tablet 300 mg PO DAILY PRN (Reason: gout) RF: 0 atorvastatin 80 mg tablet 80 mg PO QAM RF: 0 clopidogrel 75 mg tablet 75 mg PO QAM RF: 0 pantoprazole 40 mg tablet,delayed release (DR/EC) 40 mg PO QAM RF: 0 metoprolol tartrate 50 mg tablet 50 mg PO BID RF: 0 Referrals Referrals: Jairo Kingston MD [Primary Care Provider] -
[2019-03-25 07:23] LABS: Appearance Urine Clear (Clear); Bacteria Urine Automated Negative (Negative); Bilirubin Urine Negative (Negative); Blood Urine Negative (Negative); Color Urine Dark Yellow; Glucose Urine UA Negative (Negative); Ketones Urine Negative (Negative); Leukocyte Esterase Urine Negative (Negative); Nitrite Urine Negative (Negative); Protein Urine 3+ (Negative); RBC Urine Automated 0-4 /hpf (0-4); Specific Gravity Urine 1.023 (1.000-1.030); Urobilinogen Urine Negative (Negative)
[2019-03-25 07:26] LABS: Albumin Level 3.6 gm/dl (3.4-5.0); BUN Creatinine Ratio 9.3 (10-20); Calcium 9.9 mg/dl (8.5-10.1); Creatinine Clr Calc Pharmacy 36.8 ml/min; Est GFR (Non-African American) 34.5
[2019-03-25 07:29] LABS: Albumin Globulin Ratio 0.7 (0.9-2); Bilirubin,Total 0.6 mg/dl (0.2-1); Globulin 5.4 gm/dl (2.5-4.0)
--- NOTE | 2019-03-25 08:24 | Ultrasound Report ---
US gallbladder HISTORY: 68 years-old Male Right upper quadrant pain . Acute right upper quadrant abdominal pain COMPARISON: Chest CT 01/22/2010 TECHNIQUE: Multiple real-time sonographic images of the abdominal right upper quadrant were obtained assessing grayscale appearance and color flow FINDINGS: Pancreas is obscured by bowel gas. Trace perihepatic free fluid. Is mildly increased echogenicity of the liver without hepatic mass lesion or intrahepatic biliary ductal dilation. No marginal nodularity to suggest cirrhosis. Common bile duct is normal, 6 mm. Mild gallbladder distention without wall thi ckening, or shadowing cholelithiasis. Nonspecific prominent of bowel noted within the abdominal right upper quadrant. Imaged right kidney is unremarkable without hydronephrosis. IMPRESSION: 1. Mild gallbladder distention without cholelithiasis or wall thickening. 2. Nonspecific trace perihepatic free fluid. 3. No biliary ductal dilation. 4. Mildly increased echogenicity of liver may reflect hepatic steatosis. The above report was generated using voice recognition software. It may contain grammatical, syntax o r spelling errors. Electronically signed by: Garret Degroot M.D. 03/25/2019 8:22 AM
[2019-03-25] MEDS ORDERED: IOVERSOL 100ml IV PRN (09:17)
--- NOTE | 2019-03-25 09:52 | CT Scan Report ---
ABDOMEN AND PELVIS CT WITH IV CONTRAST CT DOSE: 695.99 mGy.cm HISTORY: Acute mid abdominal pain with history of abdominal aortic aneurysm right mid abd pain, hx a aa/hernias TECHNIQUE: Multiaxial CT images of the abdomen and pelvis were performed following the IV administrat ion of 94 cc of Optiray 320, A dose lowering technique was utilized adhering to the principles of AL JAG. COMPARISON STUDY: CTA 02/20/2018 FINDINGS: Left lung base is generally clear. Minimal subsegmental right basilar atelectasis. There is no pneuma tosis or pneumoperitoneum. Imaged inferior cardiac chambers are moderately enlarged. Aortic valvular prosthesis. Coronary arterial calcifications. Severe mixed plaque of the descending thoracic aorta. F usiform aneurysmal dilation redemonstrated measuring up to approximately 4.0 cm. Fusiform aneurysm di lation of the abdominal aorta at the level the renal arteries measures 3.7 x 3.8 cm. Multifocal narro wing of the aortic branch vessels. 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 Unremarkable IVC. Hepatic and portal veins are within normal limits. Probable cyst of the left hepatic lobe, 8 mm. Liver is otherwise unremarkable. Mild gallbladder diste ntion without cholelithiasis. Patency of the hepatic and portal veins. Spleen, and pancreas are unrem arkable. Mild thickening of the adrenal glands suggests hyperplasia. Mild nonspecific bilateral perin ephric stranding. Mild bilateral cortical thinning. No renal or ureteral calculi or obstructive uropa thy. Mild urinary bladder wall thickening with partial distention. Mild prostamegaly. Small fat fille d inguinal hernias. Prominent veins are noted within the left inguinal canal extending towards the le ft hemiscrotum. No adenopathy. Trace abdominal pelvic ascites. Colonic diverticulosis without acute diverticulitis. Terminal ileum i s unremarkable. Noninflamed appendix. Decompressed distal small bowel. Possible loops of small bowel within the midabdomen are dilated with air-fluid levels measuring up to 3.2 cm transversely. Transiti on point noted within the lateral right mid lower abdomen with decompressed small bowel loops seen di stally. Mild interloop edema with mild small bowel wall thickening noted within this area. Postoperat eulalia changes from prior ventral abdominal wall hernia repair. Small fat filled periumbilical hernia, d iastases 1.6 cm. Additional fat filled supraumbilical hernia noted, diastases of 6.5 cm. Degenerative changes of the spine, pelvis and hips. Posterior interbody nova and screw fusion hardware of the lowe r lumbar spine. IMPRESSION: 1. Moderate grade small bowel obstruction with transition point noted within the lateral right midabd omen, likely secondary to underlying small bowel adhesions. There is mild wall thickening with reacti ve interloop edema adjacent to the transition point. 2. Trace abdominopelvic ascites. No drainable fluid collection or evidence of perforation. 3. 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 No eviden ce of aneurysm rupture. 4. Colonic diverticulosis. 5. Additional findings as above. Electronically signed by: Garret Degroot M.D. 03/25/2019 9:50 AM
[2019-03-25] MEDS ORDERED: MoRPHine SULFATE 4 MG/ML 1 ML CARP\\VIAL IM STA (10:22)
--- NOTE | 2019-03-25 11:17 | Consultation ---
Date of Consultation March 25, 2019 Assessment & Plan (1) CVA (cerebral vascular accident): on plavix. would hold if possible. Present on Admission?: Yes (2) Small bowel obstruction: Complicated abdomen with prior AAA repair and lap hernia. Now with small bowel obstruction - moderate grade, transition point in mid right abdomen. discussed initial trial of conservative treatment with ng decompression, bowel rest, IVF resuscitation. Indications for surgical intervention reviewed - failure to resolve or developing signs of bowel compromise. He is agreeable to ng placement Will follow. Present on Admission?: Yes (3) Aortic stenosis: Moderate to severe with history of wide complex tachycardia. Would recommend non emergent cards eval to help assess cardiac risk should he need surgery. Further determination of whether surgery can be done locally or should be at tertiary care center based on results. Present on Admission?: Yes History of Present Illness Requesting Physician: PAWEL Mccallum Reason for Consultation: abdominal pain History of Present Illness 68 yr old man, accompanied by his family, presents with 1 day history of moderate to severe intensity crampy right sided abdominal pain, radiating to back somewhat, comes in waves, no relieving factors other than pain meds, no exacerbating factors. Started around 11 am yesterday. Later developed nausea and vomiting. Had three very small hard stools yesterday. No flatus since then. Not noticing any bloating. First time he has ever had a bowel blockage. History of CVA with hospital admission September 2018 - now on plavix Has moderate to severe aortic stenosis, history of wide complex tachycardia - followed by Dr. Smith and Ghanshyam Osorio. Last testing (by his report) a few months ago showed things looked stable History of AAA repair History of ventral hernia repair. Allergies Allergy/AdvReac Type Severity Reaction Status Date / Time lisinopril Allergy Intermediate BP DROP Unverified 03/25/19 08:05 Home Medications Home Medications Medication Instructions Recorded Confirmed Type allopurinol 300 mg PO DAILY PRN 02/20/18 03/25/19 History amlodipine 10 mg PO QAM 02/20/18 03/25/19 History atorvastatin 80 mg PO QAM 03/25/19 03/25/19 History clopidogrel 75 mg PO QAM 03/25/19 03/25/19 History metoprolol tartrate 50 mg PO BID 03/25/19 03/25/19 History pantoprazole 40 mg PO QAM 03/25/19 03/25/19 History Patient History Medical History AAA (abdominal aortic aneurysm) (Chronic) S/P repair Acute blood loss anemia (Resolved) Acute kidney injury superimposed on chronic kidney disease (Resolved) CKD (chronic kidney disease), stage III (Chronic) GI bleed (Resolved) Gout (Chronic) Hyperlipidemia (Chronic) Hypertension (Chronic) Surgical History History of lumbar surgery (Chronic) 1999 History of tonsillectomy and adenoidectomy (Chronic) Hx of colonoscopy (Chronic) Hx of hernia repair (Chronic) lysis of adhesions, incisional hernia repair laparoscopically 01/28/2010 at [facility] - Dr Desouza S/P AAA repair (Chronic) 01/13/2009 - Dr Suazo Family History Other AAA (abdominal aortic aneurysm) Hypertension Social History Preferred Language: American Communication Ability: Effective Manager Play Required: No Beliefs That Will Affect Care: None marital status: Current Living Situation: Spouse current occupational status: employed Feels Safe at Home: Yes Smoking Status: Former smoker Tobacco Type: cigars ; Cigarettes Per Day: Former cigarette. Quit 1998 ; Hx Alcohol Use: Yes Alcohol type: beer Alcohol type Comment: 3 beers a day Alcohol Intake Frequency Comment: Last drink 2 days ago Hx Substance Use: No Review of Systems Review of Systems: All systems reviewed & are unremarkable except as noted in HPI & below Constitutional: no problem reported Eyes: no problem reported Ear, Nose, Mouth, Throat: + hearing loss Respiratory: no problem reported Cardiovascular: no chest pain, no dyspnea and no palpitations Gastrointestinal: as per Subjective / HPI Genitourinary: no problem reported Musculoskeletal: no problem reported Neurologic: history of stroke, recovered well Psychiatric: no problem reported Endocrine: no problem reported Physical Exam Constitutional: WD/WN, vitals as above Eyes: PERRL, conjunctivae normal, anicteric sclerae Neck: trachea midline Respiratory: normal respiratory effort, lungs clear to auscultation Cardiovascular: Rate/Rhythm: regular rate and regular rhythm Heart Sounds: + murmur (harsh, systolic, over aortic area) Extremities: no edema Gastrointestinal (Abdomen): Inspection/Auscultation: abdomen normal to inspection and + abdomen distended (mild) Percussion/Palpation: + abdomen tender (mild, right side) and abdomen soft; no guarding hypoactive bowel tones, prior midline incision, prior lap incisions from hernia repair Neurologic: moves all extremities; no focal motor deficits Psychiatric: A+Ox3, euthymic affect Results & Data Vital Signs (Past 12 Hours) Vital Signs Temp Pulse Pulse Resp BP BP Pulse Ox 03/25/19 10:30 69 21 167/100 H 95 03/25/19 10:00 67 22 175/96 H 93 03/25/19 09:32 64 22 167/92 H 93 03/25/19 09:28 66 22 149/96 H 96 03/25/19 09:00 63 20 149/82 H 93 03/25/19 08:31 59 L 20 146/81 H 96 03/25/19 08:16 64 21 151/83 H 95 03/25/19 07:35 94 03/25/19 07:27 76 22 152/96 H 96 03/25/19 06:53 95 03/25/19 06:39 36.4 C L 77 20 85/48 L [address] 11.1 H/H stable Bun/ CR stable Diagnostic Findings CT scan FINDINGS: Left lung base is generally clear. Minimal subsegmental right basilar atelectasis. There is no pneumatosis or pneumoperitoneum. Imaged inferior cardiac chambers are moderately enlarged. Aortic valvular prosthesis. Coronary arterial calcifications. Severe mixed plaque of the descending thoracic aorta. Fusiform aneurysmal dilation redemonstrated measuring up to approximately 4.0 cm. Fusiform aneurysm dilation of the abdominal aorta at the level the renal arteries measures 3.7 x 3.8 cm. Multifocal narrowing of the aortic branch vessels. 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 Unremarkable IVC. Hepatic and portal veins are within normal limits. Probable cyst of the left hepatic lobe, 8 mm. Liver is otherwise unremarkable. Mild gallbladder distention without cholelithiasis. Patency of the hepatic and portal veins. Spleen, and pancreas are unremarkable. Mild thickening of the adrenal glands suggests hyperplasia. Mild nonspecific bilateral perinephric stranding. Mild bilateral cortical thinning. No renal or ureteral calculi or obstructive uropathy. Mild urinary bladder wall thickening with partial distention. Mild prostamegaly. Small fat filled inguinal hernias. Prominent veins are noted within the left inguinal canal extending towards the left hemiscrotum. No adenopathy. Trace abdominal pelvic ascites. Colonic diverticulosis without acute diverticulitis. Terminal ileum is unremarkable. Noninflamed appendix. Decompressed distal small bowel. Possible loops of small bowel within the midabdomen are dilated with air-fluid levels measuring up to 3.2 cm transversely. Transition point noted within the lateral right mid lower abdomen with decompressed small bowel loops seen distally. Mild interloop edema with mild small bowel wall thickening noted within this area. Postoperative changes from prior ventral abdominal wall hernia repair. Small fat filled periumbilical hernia, diastases 1.6 cm. Additional fat filled supraumbilical hernia noted, diastases of 6.5 cm. Degenerative changes of the spine, pelvis and hips. Posterior interbody nova and screw fusion hardware of the lower lumbar spine. IMPRESSION: 1. Moderate grade small bowel obstruction with transition point noted within the lateral right midabdomen, likely secondary to underlying small bowel adhesions. There is mild wall thickening with reactive interloop edema adjacent to the transition point. 2. Trace abdominopelvic ascites. No drainable fluid collection or evidence of perforation. 3. 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 No evidence of aneurysm rupture. 4. Colonic diverticulosis. 5. Additional findings as above. RUQ US: IMPRESSION: 1. Mild gallbladder distention without cholelithiasis or wall thickening. 2. Nonspecific trace perihepatic free fluid. 3. No biliary ductal dilation. 4. Mildly increased echogenicity of liver may reflect hepatic steatosis. (1) CVA (cerebral vascular accident) CVA mechanism: unspecified Qualified Code(s): I63.9 - Cerebral infarction, unspecified
--- NOTE | 2019-03-25 11:21 | History & Physical Report ---
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 Denies flatus past 24 hours. In ER initial BP: 85/48 to 175/96, P: 60's-70's, R: 20, 93-97% on RA WBC: 11 CT ABD/PELVIS: 1. Moderate grade small bowel obstruction with transition point noted within the lateral right midabdomen, likely secondary to underlying small bowel adhesions. There is mild wall thickening with reactive interloop edema adjacent to the transition point. 2. Trace abdominopelvic ascites. No drainable fluid collection or evidence of perforation. 3. 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 No evidence of aneurysm rupture. 4. Colonic diverticulosis. -N.p.o. -IVF -antiemetics, pain medications as needed -NG tube -Obtain KUB after NG tube placement -Convert oral PPI to Pepcid IV secondary to IV PPI shortage -General surgery consult-Dr. Sen evaluated patient in ER and recommends NG tube and conservative management at this time -CBC, BMP in am (2) CVA (cerebral vascular accident): History left occipital CVA in 09/2017 with residual right eye vision loss -Hold Plavix currently (3) CKD (chronic kidney disease), stage III: Cr: 1.9. Baseline ~1.4-1.7, with recent Cr: 1.9 in 01/2019 -Monitor renal functions -Avoid nephrotoxic agents when possible (4) Hypertension: In ER initial BP: 85/48 to 175/96 -Hold home amlodipine while npo -Convert metoprolol oral to IV while npo with holding parameters (5) Hyperlipidemia: -Hold atorvastatin while npo (6) Aortic stenosis: 09/2018 Echo: EF: 60-65%, The LV wall motion is normal. moderate to severe aortic stenosis. patent foramen ovale Denies SOB, CP, dizziness, syncope -General surgery requests cardiology consult to assess surgical risk if pt would require surgery (7) S/P AAA repair: AAA s/p repair [address] Ibarra H/O CT on 02/08/2019: Ascending aorta: 4.3 cm, aortic arch 4.6 cm, descending aorta: 4.3 cm, 3.8 cm at the renals. Shaggy aorta. (8) History of GI bleed: H/O GI bleed from AVM in 02/2018 Denies melena, hematochezia -Monitor DVT Prophylaxis -SCDs for now in case surgical procedure Full Code as per discussion with pt Follows with Dr Kingston for routine care Pt was seen and care coordinated with Dr Morrison. See addendum History of Present Illness Chief Complaint: Abdominal pain Primary Care Provider: Jairo Kingston MD Pt is 68 y/o M with PMH HTN, HLD, CKD III, AAA s/p repair 2008, CVA left occipital 09/2018 with residual visual loss to right eye, h/o GI bleed from AVM in 02/2018 presented to ER with complaint of RUQ abdominal pain x 3 days. Describes pain as sharp and initially was intermittent however past day has been constant. Also complains of nausea and approximately 5-8 episodes of vomiting. Denies any hematemesis. Patient states he has not felt like he has been passing any gas. Yesterday morning had very small formed BM. Last ate toast, Oreo 10 AM on 03/28/2019. Patient has not been able to take his medication since 03/23/2019 secondary to vomiting abdominal pain. Denies history of SBO in the past. History of open AAA repair in 2008 - Dr Suazo. History lysis of adhesions, incisional hernia repair laparoscopically on 01/28/2010 Dr Desouza Denies any melena, hematochezia, fever/chills, diaphoresis, NAILS, dizziness, syncope, vision changes, neck pain, CP, SOB, orthopnea, palpitations, cough, sore throat, choking, otalgia, rhinorrhea, abdominal pain, paresthesias, weakness, extremity weakness, extremity edema, rashes, urinary symptoms. Allergies Allergy/AdvReac Type Severity Reaction Status Date / Time lisinopril Allergy Intermediate BP DROP Unverified 03/25/19 08:05 Home Medications Home Medications Medication Instructions Recorded Confirmed Type amlodipine 10 mg PO QAM 02/20/18 03/25/19 History atorvastatin 80 mg PO QAM 03/25/19 03/25/19 History clopidogrel 75 mg PO QAM 03/25/19 03/25/19 History fluticasone propionate 2 spray INTRANASAL DAILY 03/25/19 03/25/19 History metoprolol tartrate 50 mg PO BID 03/25/19 03/25/19 History pantoprazole 40 mg PO QAM 03/25/19 03/25/19 History Past Med/Surg History Medical History AAA (abdominal aortic aneurysm) (Chronic) S/P repair Acute blood loss anemia (Resolved) Acute kidney injury superimposed on chronic kidney disease (Resolved) CKD (chronic kidney disease), stage III (Chronic) GI bleed (Resolved) Gout (Chronic) Hyperlipidemia (Chronic) Hypertension (Chronic) Surgical History History of lumbar surgery (Chronic) 2000 History of tonsillectomy and adenoidectomy (Chronic) Hx of colonoscopy (Chronic) Hx of hernia repair (Chronic) lysis of adhesions, incisional hernia repair laparoscopically 01/28/2010 at [facility] - Dr Desouza S/P AAA repair (Chronic) 01/13/2009 - Dr Suazo Family History Other AAA (abdominal aortic aneurysm) Hypertension Social History (Updated 03/25/19 @ 11:43 by Shayy Bravo PA-C) Preferred Language: Uzbek Communication Ability: Effective Boathouse Keeper Required: No Beliefs That Will Affect Care: None marital status: Current Living Situation: Spouse current occupational status: employed Other Information That Helps Us Care for You: No Feels Safe at Home: Yes Safety Concerns: Feels Safe At This Time Smoking Status: Never smoker Tobacco Type: cigars ; Cigarettes Per Day: Former cigarette. Quit 1998 ; Hx Alcohol Use: Yes Alcohol type: beer Alcohol type Comment: 3 beers a day Hx Substance Use: No Review of Systems Review of Systems: All systems reviewed & are unremarkable except as noted in HPI & below Physical Exam Physical Exam: General: no acute distress, WDWN Head: normocephalic, atraumatic Eyes: PERRL, EOM's intact, conjunctiva non-injected, anicteric ENT: normal inspection external ears, nose, mucous membranes mildly dry Neck: supple, trachea midline, non-tender Lungs: clear, no respiratory distress, no wheezing/rhonchi/rales CV: RRR, systolic murmur, no pretibial edema Abd: hypoactive BS, soft, protuberant, +healed vertical incision to mid abdomen, +tenderness to palpation RUQ without rebound or guarding Ext: no cyanosis, no calf tenderness Neuro: A&O x 3, no focal deficits noted, normal affect Skin: warm, dry Results & Data Vital Signs (Past 12 Hours) Vital Signs Temp Pulse Pulse Resp BP BP Pulse Ox 03/25/19 10:30 69 21 167/100 H 95 03/25/19 10:00 67 22 175/96 H 93 03/25/19 09:32 64 22 167/92 H 93 03/25/19 09:28 66 22 149/96 H 96 03/25/19 09:00 63 20 149/82 H 93 03/25/19 08:31 59 L 20 146/81 H 96 03/25/19 08:16 64 21 151/83 H 95 03/25/19 07:35 94 03/25/19 07:27 76 22 152/96 H 96 03/25/19 06:53 95 03/25/19 06:39 36.4 C L 77 20 85/48 L 92 Laboratory Results Short CBC 03/25/19 Range/Units 06:56 WBC 11.11 H (4.8-10.8) K/uL Hgb 16.0 (14.0-18.0) g/dL Hct 47.4 (42-52) % Plt Count 180 (130-400) K/uL BMP 03/25/19 06:56 Sodium 137 Potassium 4.0 Chloride 102 Carbon Dioxide 26 BUN 18 Creatinine 1.92 H Glucose 138 H Calcium 9.9 Liver Function 03/25/19 Range/Units 06:56 Total Bilirubin 0.6 (0.2-1) mg/dl AST 15 (15-37) U/L ALT 18 (12-78) U/L Alkaline Phosphatase 105 (45-117) U/L Albumin 3.6 (3.4-5.0) gm/dl Urine 03/25/19 Range/Units 06:45 Urine Color Dark Yellow Urine Appearance Clear (Clear) Urine pH 6.0 (4.5-7.5) Ur Specific [place] 1.023 (1.000-1.030) Urine Protein 3+ H (Negative) Urine Glucose (UA) Negative (Negative) Diagnostic Findings Gallbladder US: IMPRESSION: 1. Mild gallbladder distention without cholelithiasis or wall thickening. 2. Nonspecific trace perihepatic free fluid. 3. No biliary ductal dilation. 4. Mildly increased echogenicity of liver may reflect hepatic steatosis. CT ABD/PELVIS: IMPRESSION: 1. Moderate grade small bowel obstruction with transition point noted within the lateral right midabdomen, likely secondary to underlying small bowel adhesions. There is mild wall thickening with reactive interloop edema adjacent to the transition point. 2. Trace abdominopelvic ascites. No drainable fluid collection or evidence of perforation. 3. 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 No evidence of aneurysm rupture. 4. Colonic diverticulosis. 5. Additional findings as above. ECG Rate (beats per minute): 69 Rhythm: normal sinus Supervising Physician Co-Signing Physician Notes I have seen and examined the patient and have discussed the case with the provider above. I agree with the assessment and plan as stated with the following exceptions. 68 yo M with h/o GI bleed, who is on Plavix with h/o AAA 2008 and CVA 6 months ago, who also has a h/o hernia surgery in 2009 is being admitted for a SBO 2/2 adhesions. An NGT is in place and pain is persistent, as he is asking for additional morphine now. He is rating his pain as a 3/10. His BP by my reading is 187/76 and pulse is in the 70s. He does not appear in distress on my exam, abdomen is mildly distended with TTP in the RUQ locally. Cardiac exam reveals S1/2 without evidence of murmurs. Reg rate and rhythm appreciated and lungs are CTA throughout. He appears euvolemic and has no JVD or peripheral edema present. Agree with plan above to continue supportive care with serial abdominal exams. General surgery has seen patient and placed NGT. Will also order lactate to ensure no evidence of bowel ischemia as patient has known vascular disease. Symptoms have been ongoing for the past 1-2 days per his report to me now. He denies nausea and feels the morphine is helping him. His BP is too high, and he denies taking his amlodipine today. I also agree with holding Plavix at this time in case he needs to go for surgery. Although creatinine appears elevated compared to prior inpatient records, review of outpatient records reveals creatinine 1.9 consistently last fall, 1.7 in September 2018, and 1.24 Jan 2019. CKD appears stable. Agree with IVF while NPO. DO Prince (1) CVA (cerebral vascular accident) CVA mechanism: unspecified Qualified Code(s): I63.9 - Cerebral infarction, unspecified
--- NOTE | 2019-03-25 13:08 | XRay Report ---
KUB HISTORY: Status post placement of enteric tube S/P NG tube placement COMPARISON: CT abdomen and pelvis of same day at 9:17 AM FINDINGS: Status post placement of enteric tube, distal tip projected over the abdominal left upper q uadrant expected location of the mid gastric lumen. Multiple dilated small bowel loops redemonstrated . No pneumatosis or pneumoperitoneum. Prior herniorrhaphy changes. Partially imaged fusion hardware o f the lumbar spine. No urolith. Convex right curvature of the mid lumbar spine. IMPRESSION: 1. Distal tips of the enteric tube projects over the abdominal left upper quadrant in the expected lo cation of the proximal gastric lumen. 2. No pneumatosis or pneumoperitoneum. 3. Persistent dilated small bowel compatible with ongoing obstruction. Electronically signed by: Garret Degroot M.D. 03/25/2019 1:07 PM
[2019-03-25] MEDS ORDERED: MoRPHine SULFATE 4 MG/ML 1 ML CARP\\VIAL IV PRN (13:09)
[2019-03-25] MEDS ORDERED: ONDANSETRON INJ 2 MG/ML 2 ML VIAL IV PRN (13:09)
[2019-03-25] MEDS ORDERED: HydrALAZINE HCL 20 MG/ML VIAL IV STA ×2 (13:26→21:37)
[2019-03-25] MEDS: D5W AND NSS 1,000 ML IV SCH (13:30)
[2019-03-25] MEDS: METOPROLOL TARTRATE 1 MG/ML VIAL IV SCH ×2 (13:51→17:50)
[2019-03-25] MEDS: FAMOTIDINE 20 MG in SYRINGE 3 ML IV SCH ×2 (13:53→20:19)
[2019-03-25] MEDS ORDERED: HydrALAZINE HCL 20 MG/ML VIAL ONE (21:46)
[2019-03-26] MEDS: METOPROLOL TARTRATE 1 MG/ML VIAL IV SCH ×6 (00:10→20:53)
[2019-03-26] MEDS: D5W AND NSS 1,000 ML IV SCH ×2 (02:08→14:45)
[2019-03-26 06:05] LABS: Hematocrit (blood only) 42.6 % (42-52); Hemoglobin 13.6 g/dL (14.0-18.0); Mean Corpuscular Hemoglobin 32.6 pg (25-34); Mean Corpuscular Hgb Conc 31.9 g/dL (32-36); Mean Corpuscular Volume 102.2 fL (80-100); Mean Platelet Volume 9.3 fL (7.4-10.4); Platelet Count 210 K/uL (130-400); RDW Coefficient of Variation 13.9 % (11.5-14.5); RDW Standard Deviation 52.1 fL (36.4-46.3); Red Blood Count 4.17 M/uL (4.7-6.1); White Blood Count 8.53 K/uL (4.8-10.8)
[2019-03-26 06:39] LABS: BUN Creatinine Ratio 8.7 (10-20); Calcium 8.6 mg/dl (8.5-10.1); Creatinine Clr Calc Pharmacy 47.6 ml/min; Est GFR (African American) 52.2
[2019-03-26] MEDS ORDERED: ACETAMINOPHEN 1,000 MG/100 ML VIAL IV STA (08:29)
[2019-03-26] MEDS: FAMOTIDINE 20 MG in SYRINGE 3 ML IV SCH ×2 (09:09→20:53)
--- NOTE | 2019-03-26 09:09 | Cardiology Consultation ---
Date of Consultation March 26, 2019 Assessment & Plan (1) Preop cardiovascular exam: Patient is 68-year-old male with multiple medical issues but all stable now presenting with acute bowel obstruction. Underlying issues include known vascular disease with shaggy aorta and prior AAA repair, hypertension, moderate to severe aortic stenosis and past CVA in September 2018. Patient's had no recent angina or congestive heart failure. Aortic valve disease appears stable by exam and history. Exercise tolerance well above 5 mets without recent change or limitation. Operative risk will be elevated due to underlying morbidities but no cardiac contraindications to proceeding if indicated. Recommend controlling blood pressure preoperatively I agree with IV metoprolol but will increase to every 4 hour administration add low-dose topical nitrates due to elevated blood pressure (2) Small bowel obstruction: (3) Aortic stenosis: (4) Hypertension: Will increase metoprolol IV to 5 mg every 4 hours for hypertension and blood pressure control Add topical nitrates 1/2 inch every 6 hours If blood pressure decreases would remove nitrates and continue metoprolol. (5) CKD (chronic kidney disease), stage III: (6) S/P AAA repair: History of Present Illness Reason for Consultation: Preop cardiovascular evaluation Requesting Physician: Dr. Morrison Attending Physician: Andrew South MD History of Present Illness Patient is a 68-year-old male with complex medical history which includes 1. Longstanding hypertension 2. Hyperlipidemia 3. Atherosclerotic peripheral vascular disease with shaggy aorta and para- aortic aneurysm repair 2008 4. Calcific aortic valve disease with moderate to severe aortic stenosis 5. 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 Chronic renal insufficiency stage III Patient presents this admission noting approximately 2 and half days of abdominal pain and cramping episode of emesis yesterday. No significant bowel activity since. Evaluation reveals evidence of small bowel obstruction. Patient is referred for preoperative evaluation. He notes no recent anginal symptoms, congestive heart failure, syncope, near syncope. He is active to a moderate level degree but above 5 met level at home prior to this event. No longer wakes after stroke in September. Denies fevers chills sweats cough hoarseness wheeze or hemoptysis. No recent bleeding difficulties. Appetite and weight have been generally stable. Currently still with moderate pain in his abdomen. No bowel movement today. NG tube in place Allergies Allergy/AdvReac Type Severity Reaction Status Date / Time lisinopril Allergy Intermediate BP DROP Unverified 03/25/19 08:05 Home Medications Home Medications Medication Instructions Recorded Confirmed Type amlodipine 10 mg PO QAM 02/20/18 03/25/19 History atorvastatin 80 mg PO QAM 03/25/19 03/25/19 History clopidogrel 75 mg PO QAM 03/25/19 03/25/19 History fluticasone propionate 2 spray INTRANASAL DAILY 03/25/19 03/25/19 History metoprolol tartrate 50 mg PO BID 03/25/19 03/25/19 History pantoprazole 40 mg PO QAM 03/25/19 03/25/19 History Patient History Medical History AAA (abdominal aortic aneurysm) (Chronic) S/P repair Acute blood loss anemia (Resolved) Acute kidney injury superimposed on chronic kidney disease (Resolved) CKD (chronic kidney disease), stage III (Chronic) GI bleed (Resolved) Gout (Chronic) Hyperlipidemia (Chronic) Hypertension (Chronic) Surgical History History of lumbar surgery (Chronic) 1999 History of tonsillectomy and adenoidectomy (Chronic) Hx of colonoscopy (Chronic) Hx of hernia repair (Chronic) lysis of adhesions, incisional hernia repair laparoscopically 01/28/2010 at [facility] - Dr Desouza S/P AAA repair (Chronic) 01/13/2009 - Dr Suazo Family History Other AAA (abdominal aortic aneurysm) Hypertension Social History Preferred Language: Bulgarian Communication Ability: Effective It Auditor Required: No Beliefs That Will Affect Care: None marital status: Current Living Situation: Spouse current occupational status: employed Other Information That Helps Us Care for You: No Feels Safe at Home: Yes Safety Concerns: Feels Safe At This Time Smoking Status: Never smoker Tobacco Type: cigars ; Cigarettes Per Day: Former cigarette. Quit 1998 ; Hx Alcohol Use: Yes Alcohol type: beer Alcohol type Comment: 3 beers a day Hx Substance Use: No Review of Systems Review of Systems: All systems reviewed & are unremarkable except as noted in HPI & below Physical Exam Constitutional: WD/WN, vitals as above Eyes: PERRL, conjunctivae normal, anicteric sclerae ENMT: external ear and nose normal, oropharynx normal Nasogastric tube in place Neck: trachea midline, no thyromegaly Respiratory: normal respiratory effort, lungs clear to auscultation Auscultation: + diminished lung sounds Cardiovascular: Rate/Rhythm: regular rate and regular rhythm Heart Sounds: normal S1 and + murmur (Grade 3/6 systolic); + abnormal S2 (S2 is present but mildly diminished) and no gallop Palpation: normal PMI Vessels: normal carotid upstroke and radial pulses present; no JVD, no carotid bruit (There is a referred murmur to the base of both carotid), no abdominal aortic bruit and no femoral bruit Extremities: no edema Gastrointestinal (Abdomen): Inspection/Auscultation: + abdomen distended; + a bnormal bowel sounds (Absent) Musculoskeletal: no cyanosis or clubbing, extremities motor strength 5/5 Skin: no rashes, warm and dry Neurologic: PERRL, EOMI, accommodation nl, no face palsy, no dysarthria Psychiatric: A+Ox3, euthymic affect Results & Data Vital Signs (Past 12 Hours) Vital Signs Temp Pulse Pulse Pulse Resp BP BP 03/26/19 08:00 36.7 C 76 18 176/88 H 03/26/19 07:46 74 03/26/19 06:05 78 170/91 H 03/26/19 04:10 36.7 C 69 19 167/94 H 03/26/19 00:10 77 154/84 H 03/26/19 00:00 36.7 C 77 18 151/82 H Pulse Ox 03/26/19 08:00 92 03/26/19 07:46 03/26/19 06:05 03/26/19 04:10 91 03/26/19 00:10 03/26/19 00:00 91 Laboratory Results Laboratory Results - last 24 hr 03/25/19 03/26/19 03/26/19 14:03 05:54 05:54 WBC 8.53 RBC 4.17 L Hgb 13.6 L Hct 42.6 MCV 102.2 H MCH 32.6 MCHC 31.9 L RDW Std Deviation 52.1 H RDW Coeff of Chaka 13.9 Plt Count 210 MPV 9.3 Sodium 139 Potassium 4.0 Chloride 108 H Carbon Dioxide 25 Anion Gap 6.0 BUN 13 Creatinine 1.54 H D Est Cr Clr Drug Dosing 47.6 Est GFR ( Amer) 52.2 Est GFR (Non-Af Amer) 45.0 BUN/Creatinine Ratio 8.7 L Glucose 116 H Lactate 1.0 Calcium 8.6 Diagnostic Findings Echocardiogram 10/13/2017: The examination is adequate to evaluate the referral indication. The LV wall thickness is mildly increased (concentric). The left ventricular wall motion is normal. The aortic valve has three leaflets. The aortic valve is severely calcified. There is no significant aortic regurgitation. Aortic valve imaging suggest severe aortic stenosis not confirmed by Doppler examination. The Doppler exam may have underestimated the degree of stenosis. Compared to the report of the recent study performed at [facility] on 09/18/18, the Doppler measurements are relatively stable and unchanged. Moderate to severe aortic stenosis is present. ECG Additional Comments: 25-MAR-2019 06:53:54 [facility]-EDSTAT ROUTINE RETRIEVAL Normal sinus rhythm Normal ECG When compared with ECG of 19-SEP-2018 23:47, T wave amplitude has decreased in Lateral leads
--- NOTE | 2019-03-26 09:43 | Surgery Progress Note ---
Date of Service March 26, 2019 Assessment & Plan (1) Small bowel obstruction: Complicated abdomen with prior AAA repair and lap hernia. small bowel obstruction - moderate grade, transition point in mid right abdomen. -vitals stable other than hypertensive (Chronic) - minimal abdominal pain - no return of bowel function yet - leukocytosis resolved Plan: Continue conservative management: NPO, IV Fluids, NGT TO LIS (may clamp to ambulate), IV pain medication as needed (limit narcotics if possible) Highly encouraged ambulating hallway to increase GI motility Cardiology consulted for preoperative clearance if he were to need surgery. Will need to determine eligibility here or tertiary center given comorbidities and his cardiac history Continue to hold plavix Continue medical management Dr. Whaley had seen patient later this morning. Patient requesting Dr. Desouza. Will see if the [place] general surgery service will see him in consultation. Plan as above for now Subjective feeling better today abdomen hong had headache this morning, thought maybe he was having another stroke no nausea or vomiting no bloating feels better with NGT in feels like he has to pass gas but nothing happens Physical Exam Constitutional: WD/WN, vitals as above no acute distress Respiratory: no respiratory distress and no labored breathing Gastrointestinal (Abdomen): Inspection/Auscultation: + abdomen distended (mild) and + abdominal surgical scar (midline laparotomy scar); + abnormal bowel sounds (mild RUQ sounds) Percussion/Palpation: + abdomen tender and abdomen soft; no guarding and abdomen not rigid NGT present, about 400 cc since last shift, clear Skin: no rashes, warm and dry Psychiatric: A+Ox3, euthymic affect Results & Data Vital Signs (Past 12 Hours) Vital Signs Temp Pulse Pulse Pulse Resp BP BP 03/26/19 08:15 36.7 C 83 18 155/94 H 03/26/19 08:00 36.7 C 76 18 176/88 H 03/26/19 07:46 74 03/26/19 06:05 78 170/91 H 03/26/19 04:10 36.7 C 69 19 167/94 H 03/26/19 00:10 77 154/84 H 03/26/19 00:00 36.7 C 77 18 151/82 H Pulse Ox 03/26/19 08:15 90 03/26/19 08:00 92 03/26/19 07:46 03/26/19 06:05 03/26/19 04:10 91 03/26/19 00:10 03/26/19 00:00 91 Laboratory Results 03/26/19 03/26/19 03/25/19 Range/Units 05:54 05:54 14:03 WBC 8.53 (4.8-10.8) K/uL RBC 4.17 L (4.7-6.1) M/uL Hgb 13.6 L (14.0-18.0) g/dL Hct 42.6 (42-52) % MCV 102.2 H (80-100) fL MCH 32.6 (25-34) pg MCHC 31.9 L (32-36) g/dL RDW Std Deviation 52.1 H (36.4-46.3) fL RDW Coeff of Chaka 13.9 (11.5-14.5) % Plt Count 210 (130-400) K/uL MPV 9.3 (7.4-10.4) fL Sodium 139 (136-145) mmol/L Potassium 4.0 (3.5-5.1) mmol/L Chloride 108 H (98-107) mmol/L Carbon Dioxide 25 (21-32) mmol/L Anion Gap 6.0 (3-11) BUN 13 (7-18) mg/dl Creatinine 1.54 H D (0.6-1.4) mg/dl Est Cr Clr Drug Dosing 47.6 ml/min Est GFR ( Amer) 52.2 Est GFR (Non-Af Amer) 45.0 BUN/Creatinine Ratio 8.7 L (10-20) Glucose 116 H (70-99) mg/dl Lactate 1.0 (0.4-2.0) mmol/L Calcium 8.6 (8.5-10.1) mg/dl Diagnostic Findings GOING FOR KUB LATER TODAY
--- NOTE | 2019-03-26 10:52 | Hospitalist Progress Note ---
Date of Service March 26, 2019 Assessment & Plan (1) Small bowel obstruction: Present on admission with RUQ abdominal pain x 3 days associated with nausea, vomiting. CT ABD/PELVIS showed moderate grade small bowel obstruction with transition point noted within the lateral right midabdomen, likely secondary to underlying small bowel adhesions. There is mild wall thickening with reactive interloop edema adjacent to the transition point. Gallbladder U/S showed mild gallbladder distention without cholelithiasis or wall thickening. KUB showed persistent dilated small bowel compatible with ongoing obstruction. Surgery on board Continue conservative management with NPO, IV Fluids, NGT Continue pain control Will repeat KUB today Cardiology on board for surgical clearance Operative risk will be elevated due to underlying morbidities but no cardiac contraindications to proceeding if indicated as per cardiology Continue monitor electrolytes (2) CVA (cerebral vascular accident): History left occipital CVA in 09/2017 with residual right eye vision loss Plavix on hold currently currently (3) CKD (chronic kidney disease), stage III: Creatinine 1.5 today Avoid nephrotoxic agents when possible Monitor bmp (4) Hypertension: BP stable Continue to hold home amlodipine while npo Since NPO continue IV metoprolol (5) Hyperlipidemia: Atorvastatin on hold while npo (6) Aortic stenosis: 09/2018 Echo: EF: 60-65%, The LV wall motion is normal. moderate to severe aortic stenosis. patent foramen ovale Denies SOB, CP, dizziness, syncope Plavix on hold (7) S/P AAA repair: AAA s/p repair [address] Ibarra H/O CT on 02/08/2019: Ascending aorta: 4.3 cm, aortic arch 4.6 cm, descending aorta: 4.3 cm, 3.8 cm at the renals. Shaggy aorta. No cardiac contraindications to proceeding with surgical procedure if indicated as per cardiology (8) History of GI bleed: H/O GI bleed from AVM in 02/2018 Denies melena, hematochezia Hgb 13.6 Stable DVT Prophylaxis SCDs for now for possible surgical procedure CODE STATUS Full Code Disposition Will discharge once medically stable Subjective Pt was seen and examined Lying in bed with no distress Pt said that early this morning he had headache He said that headache resolved with the Tylenol He said that he is not having any abdominal pain currently He said that his last BM was Tuesday Denies any chest pain, palpitation, dizziness and SOB Physical Exam Physical Exam: General- No acute distress Head- atraumatic Eyes- PERRL, EOMI, ENT- oropharynx clear Neck- supple, no JVD Lungs- clear to auscultation Heart- regular rhythm; no murmur Abdomen- normal bowel sounds, nontender, +mild distended Extremities- no calf tenderness Neuro- alert, oriented x 3; PERRL, EOMI; no facial palsy; no dysarthria Skin- warm & dry Results & Data Vital Signs (Past 12 Hours) Vital Signs Temp Pulse Pulse Pulse Resp BP BP 03/26/19 08:15 36.7 C 83 18 155/94 H 03/26/19 08:00 36.7 C 76 18 176/88 H 03/26/19 07:46 74 03/26/19 06:05 78 170/91 H 03/26/19 04:10 36.7 C 69 19 167/94 H 03/26/19 00:10 77 154/84 H 03/26/19 00:00 36.7 C 77 18 151/82 H Pulse Ox 03/26/19 08:15 90 03/26/19 08:00 92 03/26/19 07:46 03/26/19 06:05 03/26/19 04:10 91 03/26/19 00:10 03/26/19 00:00 91 (1) CVA (cerebral vascular accident) CVA mechanism: unspecified Qualified Code(s): I63.9 - Cerebral infarction, unspecified
[2019-03-26] MEDS: NITROGLYCERIN 2% OINTMENT 30GM TUBE EXT SCH ×3 (10:56→22:02)
--- NOTE | 2019-03-26 13:08 | XRay Report ---
XR KUB/Abdomen 1 view CLINICAL HISTORY: 68 years-old Male presenting with SBO. TECHNIQUE: Single supine view of the abdomen was obtained. COMPARISON: 03/25/2019. FINDINGS: Nasogastric tube terminates in the proximal stomach side hole likely in the distal esophagus. Mild stool burden throughout the colon. Mild gaseous distention of small and large bowel. No gross pn eumoperitoneum align for supine technique. Choroidal hernia bhupinder project over the central abdomen. Allowing for bowel gas and stool burden as well as the diffuse coil bhupinder, no calcification is appr eciated over the renal shadows or along the courses of the ureters. Degenerative changes of the spine. Posterior lumbar fusion hardware. Lung bases clear. IMPRESSION: 1. Nasogastric tube terminates proximally in the stomach with sidehole likely in the distal esophagu s; advancement is recommended. 2. Mild gaseous distention of bowel without a distinctly obstructive bowel gas pattern. The report will be called/faxed according to standard departmental protocol. Electronically signed by: Santiago Hernandez M.D. 03/26/2019 1:06 PM
--- NOTE | 2019-03-26 13:47 | Surgery Progress Note ---
Date of Service March 26, 2019 Assessment & Plan (1) Small bowel obstruction: improving, hopefully will not require surgery Dr. Desouza can see tomorrow AM Subjective 68 y/o male with SBO known to Dr. Desouza from previous hernia repair. starting to have flatus and is feeling better Physical Exam Gastrointestinal (Abdomen): Inspection/Auscultation: + abdomen distended (minimal) Percussion/Palpation: abdomen soft NG clamped for ambulation Results & Data Vital Signs (Past 12 Hours) Vital Signs Temp Pulse Pulse Pulse Resp BP BP 03/26/19 13:36 82 168/90 H 03/26/19 11:37 36.9 C 77 18 144/77 H 03/26/19 11:00 80 107/80 03/26/19 08:15 36.7 C 83 18 155/94 H 03/26/19 08:00 36.7 C 76 18 176/88 H 03/26/19 07:46 74 03/26/19 06:05 78 170/91 H 03/26/19 04:10 36.7 C 69 19 167/94 H Pulse Ox 03/26/19 13:36 03/26/19 11:37 92 03/26/19 11:00 03/26/19 08:15 90 03/26/19 08:00 92 03/26/19 07:46 03/26/19 06:05 03/26/19 04:10 91 PG Care Time/CCT Total # of Minutes Spent Total Time Spent with Patient: Total time spent is greater than 50% in coordination of care (as documented) at patient's floor/unit and/or counseling patient:
[2019-03-27] MEDS: METOPROLOL TARTRATE 1 MG/ML VIAL IV SCH ×3 (00:01→09:01)
[2019-03-27] MEDS: D5W AND NSS 1,000 ML IV SCH (03:42)
[2019-03-27] MEDS: NITROGLYCERIN 2% OINTMENT 30GM TUBE EXT SCH ×4 (04:08→21:33)
--- NOTE | 2019-03-27 07:49 | Surgery Progress Note ---
Date of Service March 27, 2019 Assessment & Plan (1) Small bowel obstruction: obstruction resolving will d/c NG this AM maybe clears later Subjective large BM this AM + flatus, feels back to normal Physical Exam Gastrointestinal (Abdomen): Inspection/Auscultation: abdomen not distended Percussion/Palpation: abdomen soft; abdomen nontender NG output approx 200 cc past 16 hours mostly clear, he's been taking ice and sips Results & Data Vital Signs (Past 12 Hours) Vital Signs Temp Pulse Pulse Resp BP BP Pulse Ox 03/27/19 07:21 37.2 C 74 18 181/99 H 90 03/27/19 03:29 37.1 C 74 21 171/82 H 94 03/26/19 23:37 37.0 C 83 19 178/102 H 91 03/26/19 20:53 81 181/98 H PG Care Time/CCT Total # of Minutes Spent Total Time Spent with Patient: Total time spent is greater than 50% in coordination of care (as documented) at patient's floor/unit and/or counseling patient:
[2019-03-27] MEDS: FAMOTIDINE 20 MG in SYRINGE 3 ML IV SCH ×2 (09:01→20:20)
--- NOTE | 2019-03-27 09:23 | Cardiology Progress Note ---
Date of Service March 27, 2019 Assessment & Plan (1) Preop cardiovascular exam: Patient is 68-year-old male with multiple medical issues but all stable now presenting with acute bowel obstruction. Underlying issues include known vascular disease with shaggy aorta and prior AAA repair, hypertension, moderate to severe aortic stenosis and past CVA in September 2018. Patient's had no recent angina or congestive heart failure. Aortic valve disease appears stable by exam and history. Exercise tolerance well above 5 mets without recent change or limitation. Operative risk will be elevated due to underlying morbidities but no cardiac contraindications to proceeding if indicated. Recommend controlling blood pressure preoperatively I agree with IV metoprolol but will increase to every 4 hour administration add low-dose topical nitrates due to elevated blood pressure 03/27/2019 surgery and currently not indicated (2) Small bowel obstruction: Clinically improving Chest x-ray ordered due to neck fullness and recent NG tube insertion (3) Aortic stenosis: Moderate to severe (4) Hypertension: Pressures running high in part due to volume. We will discontinue IV fluids given 3 L positive balance Restart amlodipine and oral metoprolol May require low-dose diuretic single dose depending on clinical course (5) CKD (chronic kidney disease), stage III: (6) S/P AAA repair: Subjective Patient was seen and examined, chart, medications, telemetry reviewed. Patient feels improved this morning. No dizziness lightheadedness. Did have a bowel movement abdominal cramping and pain has resolved. His concern regarding fullness in his neck and upper chest Volume status ahead greater than 3 L Blood pressure still running elevated Physical Exam Constitutional: WD/WN, vitals as above Eyes: PERRL, conjunctivae normal, anicteric sclerae ENMT: external ear and nose normal, oropharynx normal Neck: trachea midline, no thyromegaly Supraclavicular fossa full, soft tissue engorgement no crepitus Respiratory: normal respiratory effort, lungs clear to auscultation Cardiovascular: Rate/Rhythm: regular rate and regular rhythm Heart Sounds: normal S1 and + murmur (Grade 2/6 systolic); + abnormal S2 (S2 is present but mildly diminished) and no gallop Palpation: normal PMI Vessels: normal carotid upstroke and radial pulses present; no JVD, no carotid bruit (There is a referred murmur to the base of both carotid), no abdominal aortic bruit and no femoral bruit Extremities: no edema Gastrointestinal (Abdomen): normal bowel sounds, soft, nontender, no hepatosplenomegaly Musculoskeletal: no cyanosis or clubbing, extremities motor strength 5/5 Skin: no rashes, warm and dry Neurologic: PERRL, EOMI, accommodation nl, no face palsy, no dysarthria Psychiatric: A+Ox3, euthymic affect Results & Data Vital Signs (Past 12 Hours) Vital Signs Temp Pulse Pulse Resp BP BP Pulse Ox 03/27/19 09:01 80 150/80 H 03/27/19 07:21 37.2 C 74 18 181/99 H 90 03/27/19 03:29 37.1 C 74 21 171/82 H 94 03/26/19 23:37 37.0 C 83 19 178/102 H 91
--- NOTE | 2019-03-27 10:25 | XRay Report ---
XR chest 2V PA/lateral HISTORY: Fullness of neck. Small bowel obstruction. COMPARISON: Chest 09/18/2018. FINDINGS: Left pleural calcification and scarring remains unchanged. No pneumothorax. No pleural effu sions. The heart is normal in size. Mildly tortuous thoracic aorta, unchanged. No new focal lung cons olidations to suggest pneumonia. No evidence for pulmonary edema. IMPRESSION: No significant change compared to the prior study. No acute process. Electronically signed by: Angel Mak M.D. 03/27/2019 10:24 AM
[2019-03-27] MEDS: METOPROLOL TARTRATE 50 MG TAB PO SCH ×2 (11:18→20:19)
[2019-03-27] MEDS: AMLODIPINE BESYLATE 5 MG TAB PO SCH (11:18)
[2019-03-27] MEDS ORDERED: CHLORASEPTIC 1.4% SOLN 180 ML BTL MT PRN (13:14)
--- NOTE | 2019-03-27 16:12 | Hospitalist Progress Note ---
Date of Service March 27, 2019 Assessment & Plan (1) Small bowel obstruction: Present on admission with RUQ abdominal pain x 3 days associated with nausea, vomiting. CT ABD/PELVIS showed moderate grade small bowel obstruction with transition point noted within the lateral right midabdomen, likely secondary to underlying small bowel adhesions. There is mild wall thickening with reactive interloop edema adjacent to the transition point. Gallbladder U/S showed mild gallbladder distention without cholelithiasis or wall thickening. KUB showed persistent dilated small bowel compatible with ongoing obstruction. Cardiology on board for surgical clearance Operative risk will be elevated due to underlying morbidities but no cardiac contraindications to proceeding if indicated as per cardiology Surgery on board Recommended conservative management Had a BM today Tolerated clear liquid diet NG tube removed (2) CVA (cerebral vascular accident): History left occipital CVA in 09/2017 with residual right eye vision loss Plavix on hold currently, please resume in am if pt stable (3) CKD (chronic kidney disease), stage III: Creatinine 1.5 Avoid nephrotoxic agents when possible Monitor bmp (4) Hypertension: BP stable Amlodipine and metoprolol PO resume continue Monitor BP (5) Hyperlipidemia: Will resume Atorvastatin in am (6) Aortic stenosis: 09/2018 Echo: EF: 60-65%, The LV wall motion is normal. moderate to severe aortic stenosis. patent foramen ovale Denies SOB, CP, dizziness, syncope Plavix on hold, please resume in (7) S/P AAA repair: AAA s/p repair [address] Ibarra H/O CT on 02/08/2019: Ascending aorta: 4.3 cm, aortic arch 4.6 cm, descending aorta: 4.3 cm, 3.8 cm at the renals. Shaggy aorta. No cardiac contraindications to proceeding with surgical procedure if indicated as per cardiology (8) History of GI bleed: H/O GI bleed from AVM in 02/2018 Denies melena, hematochezia Hgb 13.6 Stable DVT Prophylaxis SCDs for now for possible surgical procedure Ambulates CODE STATUS Full Code Disposition possible discharge home tomorrow if stable from surgical standpoint Subjective Pt was seen and examined Sitting in chair with no distress Pt said that he had a BM today He said that he tolerated clear liquid diet He said that he has been walking in the hallway Denies any chest pain, palpitation, dizziness and SOB Physical Exam Physical Exam: General- No acute distress Head- atraumatic Eyes- PERRL, EOMI, ENT- oropharynx clear Neck- supple, no JVD Lungs- clear to auscultation Heart- regular rhythm; no murmur Abdomen- normal bowel sounds, nontender, non distended Extremities- no calf tenderness Neuro- alert, oriented x 3; PERRL, EOMI; no facial palsy; no dysarthria Skin- warm & dry Results & Data Vital Signs (Past 12 Hours) Vital Signs Temp Pulse Pulse Resp BP BP Pulse Ox 03/27/19 14:58 36.7 C 56 L 16 132/79 98 03/27/19 11:00 36.7 C 78 18 125/78 91 03/27/19 09:01 80 150/80 H 03/27/19 08:00 79 03/27/19 07:21 37.2 C 74 18 181/99 H 90 (1) CVA (cerebral vascular accident) CVA mechanism: unspecified Qualified Code(s): I63.9 - Cerebral infarction, unspecified
--- NOTE | 2019-03-28 00:36 | Communication Note ---
Date of Service: March 28, 2019 Made aware by RN of patient walking out of hospital building on his way to [facility]. Patient somewhat confused as per RN. Patient apprehended by security outside building and brought back to room. AP Delirium One-to-one RN discretion Zyprexa as needed Family updated of developments at bedside. Will relay to AM provider.
[2019-03-28] MEDS ORDERED: OLANZapine 10 MG/2.1 ML SDV IM PRN (02:34)
[2019-03-28] MEDS: NITROGLYCERIN 2% OINTMENT 30GM TUBE EXT SCH (05:30)
--- NOTE | 2019-03-28 06:49 | CT Scan Report ---
CT head/brain wo con CLINICAL HISTORY: Change in neurological status. Patient leaning to the left. Possible acute stroke. COMPARISON STUDY: Head CT dated 09/18/2018, MRI the brain dated 09/18/2018 TECHNIQUE: Axial CT of the brain is performed from the vertex to the skull base. IV contrast was not administered for this examination. A dose lowering technique was utilized adhering to the principles of ALARA. CT DOSE: 614.27 mGy.cm FINDINGS: No intra or extra-axial mass lesions are visualized. There is no CT evidence of acute cortical infarc tion. There is no evidence of midline shift. There is no acute hemorrhage. No calvarial fractures ar e visualized. There are patchy white matter hypodensities likely on a small vessel basis. There is no evidence of pathologic ventricular dilatation. There are old infarcts involving the left occipital lobe, right frontal lobe, and right parietal lobe. There is minor right maxillary sinus mucosal thickening. There is no evidence of acute sinusitis. IMPRESSION: No acute intracranial findings Electronically signed by: Carter Tobin M.D. 03/28/2019 6:47 AM
--- NOTE | 2019-03-28 08:06 | Surgery Progress Note ---
Date of Service March 28, 2019 Assessment & Plan (1) Small bowel obstruction: advance diet as tolerated to low fiber seen with Dr. Deo roe for d/c if tolerates diet Supervising Physician Co-Signing Physician Notes I have seen and examined the patient and have discussed the case with the provider above. I agree with the assessment and plan as stated with the following exceptions. 68 yo M with h/o GI bleed, who is on Plavix with h/o AAA 2008 and CVA 6 months ago, who also has a h/o hernia surgery in 2009 is being admitted for a SBO 2/2 adhesions. An NGT is in place and pain is persistent, as he is asking for additional morphine now. He is rating his pain as a 3/10. His BP by my reading is 187/76 and pulse is in the 70s. He does not appear in distress on my exam, abdomen is mildly distended with TTP in the RUQ locally. Cardiac exam reveals S1/2 without evidence of murmurs. Reg rate and rhythm appreciated and lungs are CTA throughout. He appears euvolemic and has no JVD or peripheral edema present. Agree with plan above to continue supportive care with serial abdominal exams. General surgery has seen patient and placed NGT. Will also order lactate to ensure no evidence of bowel ischemia as patient has known vascular disease. Symptoms have been ongoing for the past 1-2 days per his report to me now. He denies nausea and feels the morphine is helping him. His BP is too high, and he denies taking his amlodipine today. I also agree with holding Plavix at this time in case he needs to go for surgery. Although creatinine appears elevated compared to prior inpatient records, review of outpatient records reveals creatinine 1.9 consistently last fall, 1.7 in September 2018, and 1.24 Jan 2019. CKD appears stable. Agree with IVF while NPO. Prince, Subjective patient left hospital last night was found along the road wanting to walk home no nausea after NG removed, continues to have flatus, no BM today Physical Exam Gastrointestinal (Abdomen): Inspection/Auscultation: abdomen not distended Percussion/Palpation: abdomen soft; abdomen nontender Results & Data Vital Signs (Past 12 Hours) Vital Signs Temp Pulse Pulse Resp BP Pulse Ox 03/28/19 07:20 72 03/28/19 06:59 36.8 C 66 19 152/80 H 94 03/28/19 05:19 36.9 C 62 18 149/82 H 95 03/28/19 04:00 36.4 C L 78 18 133/82 93 03/28/19 00:00 59 L 03/27/19 23:42 36.9 C 66 18 165/83 H 90 03/27/19 20:16 153/77 H PG Care Time/CCT Total # of Minutes Spent Total Time Spent with Patient: Total time spent is greater than 50% in coordination of care (as documented) at patient's floor/unit and/or counseling patient:
--- NOTE | 2019-03-28 08:23 | Hospitalist Progress Note ---
Date of Service March 28, 2019 Assessment & Plan (1) Small bowel obstruction: Present on admission with RUQ abdominal pain x 3 days associated with nausea, vomiting. CT ABD/PELVIS showed moderate grade small bowel obstruction with transition point noted within the lateral right midabdomen, likely secondary to underlying small bowel adhesions. There is mild wall thickening with reactive interloop edema adjacent to the transition point. Gallbladder U/S showed mild gallbladder distention without cholelithiasis or wall thickening. KUB showed persistent dilated small bowel compatible with ongoing obstruction. 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 moderate to severe aortic stenosis. patent foramen ovale Denies SOB, CP, dizziness, syncope Plavix resumed today (7) S/P AAA repair: AAA s/p repair [address] Ibarra H/O CT on 02/08/2019: Ascending aorta: 4.3 cm, aortic arch 4.6 cm, descending aorta: 4.3 cm, 3.8 cm at the renals. Shaggy aorta. No cardiac contraindications to proceeding with surgical procedure if indicated as per cardiology (8) History of GI bleed: H/O GI bleed from AVM in 02/2018 DVT Prophylaxis SCDs for now for possible surgical procedure Ambulates CODE STATUS Full Code Disposition Keep in hospital until tolerating diet Labs checked Patient Eloped at 330 am today and was found walking home, family now at bedside ROS-No Headache, No Visual Changes, No Nausea, No Vomiting, No Fever, No Chills, No Neck Pain or Stiffness, No Chest Pain, No Palpitations, No SOB, No CAMARENA, No Cough, No Sputum, No Wheezing, No Abdominal Pain, No Diarrhea, No Hematemesis, No Hemoptysis, No Unexpected Weight Loss, No Flank pain, No Melena, No Hematochezia, No Frequency, No Urgency, No Burning, No Hematuria, No Rashes, No Diaphoresis. Appetite is Normal Physical Exam Gen-AAO x 3, NAD, Afebrile, [place] Head-NCAT, EOMI, PERRLA, Anicteric Sclera, No Posterior Pharyngeal Erythema Neck-Supple, No JVD, No Thyromegaly, No Masses, No LAD, No Bruits Lungs-Clear to Auscultation Bilaterally, No Rales, No Rhonchi, No Wheezing, No Crepitus Chest-No S4, +S1, +S2, No S3, +3/6 SE Murmur in aortic area, No Rubs, No Gallops, No Ectopy Abdomen-Soft, Bowel Sounds Present, Non Tender, Non Distended, No Hepatomegaly, No Splenomegaly, No Palpable Masses, No Rebound, No Rigidity, No Guarding Musculoskeletal-Full Range of Motion Bilaterally, No CVAT Extremities-No Cyanosis, No Clubbing, No Edema Nuero-Cranial Nerves II-XII grossly intact, Motor WNL, DTRs WNL, Strength WNL, Non Focal Psych-Normal Mood Results & Data Vital Signs (Past 12 Hours) Vital Signs Temp Pulse Pulse Resp BP Pulse Ox 03/28/19 07:20 72 03/28/19 06:59 36.8 C 66 19 152/80 H 94 03/28/19 05:19 36.9 C 62 18 149/82 H 95 03/28/19 04:00 36.4 C L 78 18 133/82 93 03/28/19 00:00 59 L 03/27/19 23:42 36.9 C 66 18 165/83 H 90 (1) CVA (cerebral vascular accident) CVA mechanism: unspecified Qualified Code(s): I63.9 - Cerebral infarction, unspecified
[2019-03-28] MEDS: ATORVASTATIN 40 MG TAB PO SCH (08:30)
[2019-03-28] MEDS: AMLODIPINE BESYLATE 5 MG TAB PO SCH (08:30)
[2019-03-28] MEDS: CLOPIDOGREL BISULFATE 75 MG TAB PO SCH (08:31)
[2019-03-28] MEDS: FAMOTIDINE 20 MG in SYRINGE 3 ML IV SCH ×2 (08:41→20:46)
[2019-03-28] MEDS ORDERED: METOPROLOL TARTRATE 25 MG TAB PO SCH (09:00)
[2019-03-28] MEDS ORDERED: METOPROLOL TARTRATE 50 MG TAB PO SCH (09:00)
[2019-03-28 09:07] LABS: Appearance Urine Clear (Clear); Bacteria Urine Automated Negative (Negative); Bilirubin Urine Negative (Negative); Blood Urine Trace (Negative); Color Urine Yellow; Glucose Urine UA Negative (Negative); Ketones Urine Trace (Negative); Leukocyte Esterase Urine Negative (Negative); Nitrite Urine Negative (Negative); Protein Urine 3+ (Negative); RBC Urine Automated 0-4 /hpf (0-4); Specific Gravity Urine 1.015 (1.000-1.030); Urobilinogen Urine Negative (Negative)
[2019-03-28] MEDS: ISOSORBIDE MONO EXTENDED REL 30 MG TABCR PO SCH (11:24)
--- NOTE | 2019-03-28 12:13 | Cardiology Progress Note ---
Date of Service March 28, 2019 Assessment & Plan (1) Sinus pause: Reduce metoprolol to 25 mg twice daily. Continue to monitor telemetry. (2) Preop cardiovascular exam: 68-year-old male presented to hospital with acute small bowel obstruction. Underlying issues include known vascular disease with shaggy aorta and prior AAA repair, hypertension, moderate to severe aortic stenosis and past CVA in September 2018. Patient's had no recent angina or congestive heart failure. Aortic valve disease appears stable by exam and history. Conservative management recommended at this time. (3) Small bowel obstruction: Nonoperative management recommended at this time per surgical service. (4) Aortic stenosis: Moderate to severe (5) Hypertension: Blood pressure improved after restarting amlodipine and metoprolol. (6) CKD (chronic kidney disease), stage III: Creatinine trending downward. IV fluid discontinued. (7) S/P AAA repair: Subjective Patient seen and examined the bedside. Tolerating clear liquid diet. I was contacted by nursing this morning due to transient bradycardia with a 3.8-second pause recorded during sleep. Patient denies lightheadedness or dizziness. Blood pressure controlled. Family present at bedside. They offer no additional concerns/complaints at this time. Review of Systems Review of Systems: All systems reviewed & are unremarkable except as noted in HPI & below Physical Exam Constitutional: well developed and well nourished; no acute distress Respiratory: normal respiratory effort, lungs clear to auscultation Cardiovascular: Rate/Rhythm: regular rate Heart Sounds: normal S1, normal S2 and + murmur (1/6 systolic ejection murmur heard best at the base.) Gastrointestinal (Abdomen): Percussion/Palpation: + abdomen tender and abdomen soft; no guarding and abdomen not rigid Neurologic: PERRL, EOMI, accommodation nl, no face palsy, no dysarthria Results & Data Vital Signs (Past 12 Hours) Vital Signs Temp Pulse Pulse Resp BP Pulse Ox 03/28/19 11:33 37.0 C 56 L 16 131/71 91 03/28/19 07:20 72 03/28/19 06:59 36.8 C 66 19 152/80 H 94 03/28/19 05:19 36.9 C 62 18 149/82 H 95 03/28/19 04:00 36.4 C L 78 18 133/82 93
[2019-03-28] MEDS: METOPROLOL TARTRATE 25 MG TAB PO SCH (20:44)
[2019-03-29] MEDS: METOPROLOL TARTRATE 25 MG TAB PO SCH ×2 (07:51→20:41)
[2019-03-29] MEDS: CLOPIDOGREL BISULFATE 75 MG TAB PO SCH (07:51)
[2019-03-29] MEDS: ATORVASTATIN 40 MG TAB PO SCH (07:51)
[2019-03-29] MEDS: AMLODIPINE BESYLATE 5 MG TAB PO SCH (07:52)
--- NOTE | 2019-03-29 08:42 | Surgery Progress Note ---
Date of Service Patient is doing very well sitting on chair eating his breakfast which is regular nearly dividing everything that he has on his plate denies any complaints bowels are moving and overall feels well March 29, 2019 Assessment & Plan (1) Small bowel obstruction: 03/29 for general surgical point of view nothing further needs to be done we will sign off if any new issues arise we will certainly be available No need to follow-up with general surgery Continue with low fiber diet and once his GI function normalizes as far as his stools and frequency can increase to diet of choice advance diet as tolerated to low fiber seen with Dr. Deo roe for d/c if tolerates diet Physical Exam Physical Exam: Alert coherent no abdominal findings Results & Data Vital Signs (Past 12 Hours) Vital Signs Temp Pulse Pulse Resp BP BP Pulse Ox 03/29/19 08:04 36.5 C 61 18 103/69 93 03/29/19 07:15 59 L 03/29/19 03:42 36.6 C 62 18 128/75 90 03/28/19 23:30 57 L 03/28/19 23:20 36.8 C 57 L 18 155/79 H 93 03/28/19 20:44 69 111/63 PG Care Time/CCT Total # of Minutes Spent Total Time Spent with Patient: Total time spent is greater than 50% in coordination of care (as documented) at patient's floor/unit and/or counseling patient:
[2019-03-29 09:17] LABS: Hematocrit (blood only) 37.5 % (42-52); Hemoglobin 12.5 g/dL (14.0-18.0); Mean Corpuscular Hemoglobin 32.7 pg (25-34); Mean Corpuscular Hgb Conc 33.3 g/dL (32-36); Mean Corpuscular Volume 98.2 fL (80-100); Mean Platelet Volume 10.1 fL (7.4-10.4); Platelet Count 179 K/uL (130-400); RDW Coefficient of Variation 13.1 % (11.5-14.5); RDW Standard Deviation 47.2 fL (36.4-46.3); Red Blood Count 3.82 M/uL (4.7-6.1); White Blood Count 6.65 K/uL (4.8-10.8)
[2019-03-29] MEDS: FAMOTIDINE 20 MG in SYRINGE 3 ML IV SCH ×2 (09:21→20:32)
[2019-03-29 09:43] LABS: Calcium 9.1 mg/dl (8.5-10.1); Creatinine Clr Calc Pharmacy 40.2 ml/min; Est GFR (Non-African American) 38.9; Magnesium 1.7 mg/dl (1.8-2.4); Potassium 3.5 mmol/L (3.5-5.1)
--- NOTE | 2019-03-29 10:56 | Hospitalist Progress Note ---
Date of Service March 29, 2019 Assessment & Plan (1) Small bowel obstruction: Present on admission with RUQ abdominal pain x 3 days associated with nausea, vomiting. CT ABD/PELVIS showed moderate grade small bowel obstruction with transition point noted within the lateral right midabdomen, likely secondary to underlying small bowel adhesions. There is mild wall thickening with reactive interloop edema adjacent to the transition point. Gallbladder U/S showed mild gallbladder distention without cholelithiasis or wall thickening. KUB showed persistent dilated small bowel compatible with ongoing obstruction. 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 moderate to severe aortic stenosis. patent foramen ovale Denies SOB, CP, dizziness, syncope Plavix resumed today (7) S/P AAA repair: AAA s/p repair [address] Ibarra H/O CT on 02/08/2019: Ascending aorta: 4.3 cm, aortic arch 4.6 cm, descending aorta: 4.3 cm, 3.8 cm at the renals. Shaggy aorta. No cardiac contraindications to proceeding with surgical procedure if indicated as per cardiology (8) History of GI bleed: H/O GI bleed from AVM in 02/2018 Had 6 sec pause last night-Cards to see DVT Prophylaxis SCDs for now for possible surgical procedure Ambulates CODE STATUS Full Code Disposition DC after seen by cards unless needs PPM Labs checked Patient Eloped at 330 am 03/28 and was found walking home ROS-No Headache, No Visual Changes, No Nausea, No Vomiting, No Fever, No Chills, No Neck Pain or Stiffness, No Chest Pain, No Palpitations, No SOB, No CAMARENA, No Cough, No Sputum, No Wheezing, No Abdominal Pain, No Diarrhea, No Hematemesis, No Hemoptysis, No Unexpected Weight Loss, No Flank pain, No Melena, No Hematochezia, No Frequency, No Urgency, No Burning, No Hematuria, No Rashes, No Diaphoresis. Appetite is Normal, +BM Physical Exam Gen-AAO x 3, NAD, Afebrile, [place] Head-NCAT, EOMI, PERRLA, Anicteric Sclera, No Posterior Pharyngeal Erythema Neck-Supple, No JVD, No Thyromegaly, No Masses, No LAD, No Bruits Lungs-Clear to Auscultation Bilaterally, No Rales, No Rhonchi, No Wheezing, No C repitus Chest-No S4, +S1, +S2, No S3, +3/6 SE Murmur in aortic area, No Rubs, No Gallops, No Ectopy Abdomen-Soft, Bowel Sounds Present, Non Tender, Non Distended, No Hepatomegaly, No Splenomegaly, No Palpable Masses, No Rebound, No Rigidity, No Guarding Musculoskeletal-Full Range of Motion Bilaterally, No CVAT Extremities-No Cyanosis, No Clubbing, No Edema Nuero-Cranial Nerves II-XII grossly intact, Motor WNL, DTRs WNL, Strength WNL, Non Focal Psych-Normal Mood Results & Data Vital Signs (Past 12 Hours) Vital Signs Temp Pulse Pulse Resp BP BP Pulse Ox 03/29/19 09:15 74 98/61 L 104/62 03/29/19 08:04 36.5 C 61 18 103/69 93 03/29/19 07:15 59 L 03/29/19 03:42 36.6 C 62 18 128/75 90 03/28/19 23:30 57 L 03/28/19 23:20 36.8 C 57 L 18 155/79 H 93 (1) CVA (cerebral vascular accident) CVA mechanism: unspecified Qualified Code(s): I63.9 - Cerebral infarction, unspecified
[2019-03-30] MEDS: ISOSORBIDE MONO EXTENDED REL 30 MG TABCR PO SCH (02:54)
[2019-03-30] MEDS: ATORVASTATIN 40 MG TAB PO SCH (07:42)
[2019-03-30] MEDS: METOPROLOL TARTRATE 25 MG TAB PO SCH (07:42)
[2019-03-30] MEDS: AMLODIPINE BESYLATE 5 MG TAB PO SCH (07:43)
[2019-03-30] MEDS: CLOPIDOGREL BISULFATE 75 MG TAB PO SCH (07:43)
[2019-03-30] MEDS: FAMOTIDINE 20 MG in SYRINGE 3 ML IV SCH (07:46)
[2019-03-30 08:40] LABS: Hematocrit (blood only) 41.6 % (42-52); Hemoglobin 13.7 g/dL (14.0-18.0); Mean Corpuscular Hemoglobin 32.3 pg (25-34); Mean Corpuscular Hgb Conc 32.9 g/dL (32-36); Mean Corpuscular Volume 98.1 fL (80-100); Mean Platelet Volume 10.7 fL (7.4-10.4); Platelet Count 154 K/uL (130-400); RDW Coefficient of Variation 13.1 % (11.5-14.5); RDW Standard Deviation 47.2 fL (36.4-46.3); Red Blood Count 4.24 M/uL (4.7-6.1); White Blood Count 7.01 K/uL (4.8-10.8)
[2019-03-30 09:03] LABS: BUN Creatinine Ratio 10.3 (10-20); Calcium 9.6 mg/dl (8.5-10.1); Creatinine Clr Calc Pharmacy 43.2 ml/min; Est GFR (African American) 49.1; Est GFR (Non-African American) 42.4; Potassium 3.6 mmol/L (3.5-5.1)
--- NOTE | 2019-03-30 12:04 | Discharge Summary ---
Date of Service March 30, 2019 Admission HPI Per Admitting Provider Pt is 68 y/o M with PMH HTN, HLD, CKD III, AAA s/p repair 2008, CVA left occipital 09/2018 with residual visual loss to right eye, h/o GI bleed from AVM in 02/2018 presented to ER with complaint of RUQ abdominal pain x 3 days. Describes pain as sharp and initially was intermittent however past day has been constant. Also complains of nausea and approximately 5-8 episodes of vomiting. Denies any hematemesis. Patient states he has not felt like he has been passing any gas. Yesterday morning had very small formed BM. Last ate toast, Oreo 10 AM on 03/28/2019. Patient has not been able to take his medication since 03/23/2019 secondary to vomiting abdominal pain. Denies history of SBO in the past. History of open AAA repair in 2008 - Dr Suazo. History lysis of adhesions, incisional hernia repair laparoscopically on 01/28/2010 Dr Desouza Denies any melena, hematochezia, fever/chills, diaphoresis, NAILS, dizziness, syncope, vision changes, neck pain, CP, SOB, orthopnea, palpitations, cough, sore throat, choking, otalgia, rhinorrhea, abdominal pain, paresthesias, weakness, extremity weakness, extremity edema, rashes, urinary symptoms. Admission Exam Per Admitting Provider General: no acute distress, WDWN Head: normocephalic, atraumatic Eyes: PERRL, EOM's intact, conjunctiva non-injected, anicteric ENT: normal inspection external ears, nose, mucous membranes mildly dry Neck: supple, trachea midline, non-tender Lungs: clear, no respiratory distress, no wheezing/rhonchi/rales CV: RRR, systolic murmur, no pretibial edema Abd: hypoactive BS, soft, protuberant, +healed vertical incision to mid abdomen, +tenderness to palpation RUQ without rebound or guarding Ext: no cyanosis, no calf tenderness Neuro: A&O x 3, no focal deficits noted, normal affect Skin: warm, dry Principal Diagnosis Nocturnal Hypoxia Sinus Pauses CKD Gout Old CVA HLD MAGDALENO Discharge Exam Gen-AAO x 3, NAD, Afebrile, RUBY Head-NCAT, EOMI, PERRLA, Anicteric Sclera, No Posterior Pharyngeal Erythema Neck-Supple, No JVD, No Thyromegaly, No Masses, No LAD, No Bruits Lungs-Clear to Auscultation Bilaterally, No Rales, No Rhonchi, No Wheezing, No Crepitus Chest-No S4, +S1, +S2, No S3, +Aortic SE Murmur, No Rubs, No Gallops Abdomen-Soft, Bowel Sounds Present, Non Tender, Non Distended, No Hepatomegaly, No Splenomegaly, No Palpable Masses, No Rebound, No Rigidity, No Guarding Musculoskeletal-Full Range of Motion Bilaterally, No CVAT Extremities-No Cyanosis, No Clubbing, No Edema Nuero-Cranial Nerves II-XII grossly intact, Motor WNL, DTRs WNL, Strength WNL, Non Focal Psych-Normal Mood Discharge Data Allergies Allergy/AdvReac Type Severity Reaction Status Date / Time lisinopril Allergy Intermediate BP DROP Unverified 03/25/19 08:05 Consultations 03/25/19 10:50 ED Decision to Admit Stat 03/25/19 13:09 Consult Cardiology Routine Consult General Surgery Routine Ordered Studies 03/25/19 07:13 US gallbladder Stat 03/25/19 08:53 CT abd pelvis IV con only Stat 03/28/19 04:11 CT head/brain wo con Urgent Current Diagnoses Hyperlipidemia, unspecified (03/25/19) Essential (primary) hypertension (03/25/19) Nonrheumatic aortic (valve) stenosis (03/25/19) Cerebral infarction, unspecified (03/25/19) Unspecified intestinal obstruction, unspecified as to partial versus complete obstruction (03/25/19) Chronic kidney disease, stage 3 (moderate) (03/25/19) Encounter for preprocedural cardiovascular examination (03/25/19) Personal history of other diseases of the circulatory system (03/25/19) Personal history of other diseases of the digestive system (03/25/19) Other specified postprocedural states (03/25/19) Allergies lisinopril Allergy (Intermediate, Unverified 03/25/19 08:05) BP DROP Height/Weight/Isolation Height 5 ft 6 in Weight 84.3 kg Chemistry 03/29/19 03/30/19 08:46 08:12 Sodium 139 139 Potassium 3.5 3.6 Chloride 104 104 Carbon Dioxide 28 28 Anion Gap 7.0 7.0 BUN 16 17 Creatinine 1.74 H 1.62 H Glucose 134 H 97 Hospital Course (1) Small bowel obstruction: Present on admission with RUQ abdominal pain x 3 days associated with nausea, vomiting. All resolved CT ABD/PELVIS showed moderate grade small bowel obstruction with transition point noted within the lateral right midabdomen, likely secondary to underlying small bowel adhesions. There is mild wall thickening with reactive interloop edema adjacent to the transition point. Gallbladder U/S showed mild gallbladder distention without cholelithiasis or wall thickening. KUB showed persistent dilated small bowel compatible with ongoing obstruction. 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 moderate to severe aortic stenosis. patent foramen ovale Plavix resumed (7) S/P AAA repair: AAA s/p repair [address] Ibarra H/O CT on 02/08/2019: Ascending aorta: 4.3 cm, aortic arch 4.6 cm, descending aorta: 4.3 cm, 3.8 cm at the renals. Shaggy aorta. No cardiac contraindications to proceeding with surgical procedure if indicated as per cardiology (8) History of GI bleed: H/O GI bleed from AVM in 02/2018 Had 6 sec pause 03/28 and 3 sec pause last night-Cards adjusted Metoprolol Noctural Pulse Ox done, Dropped sat to 81%, Home O2 ordered for sleep CODE STATUS Full Code Disposition DC today, No PPM for now Total Time Total Time Spent Total Time Spent (In Minutes): 65 mins Total Time Includes: Examination of the Patient, Discharge Planning, Medication Reconciliation and Communication With Other Providers Discharge Plan Discharge Items Patient Disposition: Home - Self-Care Reason For Visit: SBO Discharge Diagnosis: Nocturnal Hypoxia SBO Sinus Pauses CKD Gout Old CVA HLD MAGDALENO Condition on Discharge: Good Health Concerns: Hypoxia at bedtime Activity: Resume your previous activity Lifting: None Bathing: No limitations Sexual Activity: When tolerated Exercise/Sports: None Driving/Machine Use: No limitations Weightbearing: Full weightbearing Non-emergency contact: Primary Care Provider and [facility] Call non-emergency contact if: you have any medication questions Follow-up/Referrals: Valentin Levy DO [[facility]] - (1-2 weeks) Jairo Kingston MD [Primary Care Provider] - Diet: Heart Healthy Fluids: 1500ml (6 cups) Addtl Attending Provider Instructions: None Pending Studies at Discharge: No Stand-Alone Forms: Call Back Authorization, [facility] [place], Smoking Cessation Medications and DC Order Prescriptions: New metoprolol tartrate 25 mg Tablet 25 mg PO BID Qty: 60 RF: 0 Continued amlodipine 10 mg tablet 10 mg PO QAM RF: 0 atorvastatin 80 mg tablet 80 mg PO QAM RF: 0 clopidogrel 75 mg tablet 75 mg PO QAM RF: 0 pantoprazole 40 mg tablet,delayed release (DR/EC) 40 mg PO QAM RF: 0 fluticasone propionate 50 mcg/actuation [place],Suspension 2 spray INTRANASAL DAILY RF: 0 No Action metoprolol tartrate 50 mg tablet 50 mg PO BID RF: 0 Discharge Orders: Discharge Order (Routine); Ordered 03/30/19 Ordered By: Torey Holder/Other Patient Handouts: Diet Low Residue Admission Data Admit Date/Time: 03/25/19 11:27 Attending Provider: Torey Reyes Admit Provider: Kate Morrison Primary Care Provider: Jairo Kingston Other Providers: Valentin Levy ; Katerin Sen ; Kate Morrison
--- NOTE | 2019-03-30 12:58 | Cardiology Progress Note ---
Date of Service March 30, 2019 Assessment & Plan (1) Sinus pause: Reduce metoprolol to 25 mg twice daily. Patient ambulatory without complaints no further arrhythmias. Anticipate discharge to home today Nocturnal hypoxia observed I agree with nocturnal oxygen supplement Would recommend follow-up with cardiology in the next 3 to 4 weeks time (2) Preop cardiovascular exam: 68-year-old male presented to hospital with acute small bowel obstruction. Underlying issues include known vascular disease with shaggy aorta and prior AAA repair, hypertension, moderate to severe aortic stenosis and past CVA in September 2018. Patient's had no recent angina or congestive heart failure. Aortic valve disease appears stable by exam and history. Conservative management recommended at this time. (3) Small bowel obstruction: Nonoperative management recommended at this time per surgical service. (4) Aortic stenosis: Moderate to severe (5) Hypertension: Blood pressure improved after restarting amlodipine and metoprolol. (6) CKD (chronic kidney disease), stage III: Creatinine trending downward. IV fluid discontinued. (7) S/P AAA repair: Subjective Patient seen and examined, chart, medications, telemetry reviewed. No complaints overnight no chest pains or discomfort. Blood pressures well controlled. Telemetry reveals no further bradycardia or pauses. Nocturnal oximetry did demonstrate significant nocturnal hypoxia Physical Exam Constitutional: WD/WN, vitals as above Eyes: PERRL, conjunctivae normal, anicteric sclerae ENMT: external ear and nose normal, oropharynx normal Neck: trachea midline, no thyromegaly Respiratory: normal respiratory effort, lungs clear to auscultation Auscultation: + diminished lung sounds Cardiovascular: Rate/Rhythm: regular rate and regular rhythm Heart Sounds: normal S1 and + murmur (Grade 2/6 systolic); + abnormal S2 (S2 is present but mildly diminished) and no gallop Palpation: normal PMI Vessels: normal carotid upstroke and radial pulses present; no JVD, no carotid bruit (There is a referred murmur to the base of both carotid), no abdominal aortic bruit and no femoral bruit Extremities: no edema Gastrointestinal (Abdomen): normal bowel sounds, soft, nontender, no hepatosplenomegaly Musculoskeletal: no cyanosis or clubbing, extremities motor strength 5/5 Skin: no rashes, warm and dry Neurologic: PERRL, EOMI, accommodation nl, no face palsy, no dysarthria Psychiatric: A+Ox3, euthymic affect Results & Data Vital Signs (Past 12 Hours) Vital Signs Temp Pulse Pulse Pulse Resp BP Pulse Ox 03/30/19 11:34 36.8 C 61 18 108/69 94 03/30/19 08:00 62 03/30/19 07:12 36.8 C 63 18 141/90 H 93 03/30/19 04:26 56 L 03/30/19 03:07 37 C 67 18 161/87 H 92 Pulse Ox 03/30/19 11:34 03/30/19 08:00 03/30/19 07:12 03/30/19 04:26 95 03/30/19 03:07
== END 2019-03-30 15:00 | disposition home or self-care (01) | DRG 390 ==
LOC: ED 06:34 → SUATTDRO 11:27 → 2N 11:27 → 2W 03-28 05:19

== ENCOUNTER 2021-10-31 15:42 | Inpatient (IN) ==
--- NOTE | 2021-10-31 16:28 | Emergency Department Note ---
History of Present Illness General Chief complaint: Illness Stated complaint: COLD, NUMBNESS, HISTORY OF STROKES Source: patient Mode of arrival: wheelchair Limitations: no limitations History of Present Illness Provider complaint: Dizziness, constipation, cough Onset (ago): day(s) 1 Maximum Pain Intensity: 5 This is a 71-year-old male presents emergency department with daughter at bedside with concern for dizziness, constipation, cough, and shortness of breath. Patient states he first began to notice increased dizziness/lightheadedness yesterday. States is a sense of feeling more off balance and is similar to the second stroke he had in 2020. He states he does have chronic vision loss in the right peripheral field from his first stroke in 2019. Patient denies any recent change in medications or diet. Feels he is staying hydrated. Patient also notes he has been constipated for the last 2 days, however denies abdominal pain or pressure. He states he does feel slightly bloated. He states he typically goes every day. Patient states it is typically black as he takes an iron supplement, he has not noticed any overt blood. Patient states he does take Eliquis due to his history of strokes. Patient states his also checks his blood pressure sometimes as he has a history of high blood pressure. Patient states he is a former smoker and does have a chronic cough although felt it is been getting worse over the last 6 to 8 months, and also feels he has been increasingly short of breath in that timeframe also. He states he wears oxygen as needed, CPAP at night, and does occasionally use breathing treatments at home. Patient denies any known sick contact. Denies fevers but states he did feel chills this morning. 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 Pt seen during a time of high acuity and national emergency pandemic while wearing PPE. Home Medications Medication Instructions Recorded Confirmed Type atorvastatin 80 mg tablet 80 mg PO QPM 03/25/19 10/31/21 History clopidogrel 75 mg tablet 75 mg PO QAM 03/25/19 10/31/21 History fluticasone propionate 50 2 spray intranasal DAILY PRN 03/25/19 10/31/21 History mcg/actuation nasal Congestion spray,suspension cholecalciferol (vitamin D3) 50 2,000 unit PO QAM 06/10/20 10/31/21 History mcg (2,000 unit) capsule (D3-2000) triamcinolone acetonide 0.1 % 1 applic topical BID PRN flare ups 06/10/20 10/31/21 History topical ointment apixaban 5 mg tablet (Eliquis) 5 mg PO BID #60 tabs 06/15/20 10/31/21 Rx amlodipine 2.5 mg tablet 2.5 mg PO QAM 12/30/20 10/31/21 History iron,carbonyl 65 mg-vitamin C 125 1 tab PO DAILY 12/30/20 10/31/21 History mg tablet,delayed release (Vitron-C) albuterol sulfate 90 mcg/actuation 2 puff inhalation QID PRN Wheezing 10/31/21 10/31/21 History aerosol inhaler allopurinol 300 mg tablet 300 mg PO DAILY 10/31/21 10/31/21 History metoprolol tartrate 25 mg tablet 12.5 mg PO BID 10/31/21 10/31/21 History Allergies Allergy/AdvReac Type Severity Reaction Status Date / Time RUBENS Inhibitors AdvReac Intermediate DROPS Verified 10/31/21 17:10 BLOOD PRESSURE lisinopril AdvReac Intermediate DROPS Verified 10/31/21 17:10 BLOOD PRESSURE Past Med/Surg History Medical History CKD (chronic kidney disease), stage III PT DENIES History of GI bleed Hx of gout Hx SBO Hyperlipidemia Hypertension Sleep apnea CPAP Stroke X 2 (LAST EVENT 05/2020) CONT. TO HAVE SLIGHT BALANCE ISSUES Surgical History History of lumbar surgery 1999 History of tonsillectomy History of tooth extraction Hx of colonoscopy Hx of hernia repair lysis of adhesions, incisional hernia repair laparoscopically 01/28/2010 at [facility] - Dr Desouza S/P AAA repair 01/13/2009 - Dr Suazo ([facility] AT [facility]) Family History Other AAA (abdominal aortic aneurysm) Hypertension No family history of adverse response to anesthesia Social History Smoking Status: Former smoker Tobacco Type: Cigarettes Cigarettes Per Day: Former cigarette. Quit 1998; Smoking End Date: 2004; Second Hand Exposure: Yes ( A CHILD); Hx Alcohol Use: Yes Alcohol type: beer and wine Alcohol type Comment: 3 beers a day Hx Substance Use: No Preferred Language: Greenlandic Communication Ability: Effective Kitchenhand Required: No Beliefs That Will Affect Care: None marital status: Current Living Situation: Spouse current occupational status: employed Other Information That Helps Us Care for You: No Feels Safe at Home: Yes Safety Concerns: Feels Safe At This Time Assistive Devices: Walker Review of Systems A total of 10 systems reviewed and were otherwise negative All systems reviewed & are unremarkable except as noted in HPI & below Physical Exam Vital Signs Vital Signs - 24 hr 10/31/21 18:51 10/31/21 17:50 10/31/21 18:00 Temperature Temperature Source Pulse Rate [Finger] 84 89 80 Respiratory Rate 18 18 18 Blood Pressure [Right Arm] 181/96 H 189/105 H 190/105 H Blood Pressure Mean [Right Arm] 124 133 133 Blood Pressure Position [Right Arm] Lying Sitting Pulse Oximetry 94 95 95 Oxygen Delivery Method Room Air Room Air Room Air 10/31/21 19:41 10/31/21 21:40 10/31/21 23:09 Temperature 37.9 C H 36.9 C Temperature Source Oral Oral Pulse Rate [Finger] 68 85 Respiratory Rate 18 20 Blood Pressure [Right Arm] 181/84 H 222/146 H Blood Pressure Mean [Right Arm] 116 171 Blood Pressure Position [Right Arm] Pulse Oximetry 97 98 Oxygen Delivery Method Room Air GENERAL: alert, well appearing, well nourished, no distress, non-toxic EYE EXAM: normal conjunctiva, PERRL and EOM's grossly intact, no nystagmus EARS: TMs clear bilaterally without erythema or effusion, no edema along the canals. OROPHARYNX: no exudate, no erythema, lips, buccal mucosa, and tongue normal and mucous membranes are mildly dry NECK: supple, no nuchal rigidity, no adenopathy, non-tender LUNGS: Clear to auscultation. Normal chest wall mechanics, no w/r/r, mildly coarse throughout, no increased work of breathing. HEART: no murmurs, S1 normal and S2 normal ABDOMEN: abdomen soft, non-tender, normo-active bowel sounds, no masses, no rebound or guarding. Dull to percussion. BACK: Back is symmetrical on inspection and there is no deformity, no midline tenderness, no CVA tenderness. SKIN: no rashes and no bruising UPPER EXTREMITIES: upper extremities are grossly normal. FROM, nml pulses b/l. LOWER EXTREMITIES: No pitting edema. FROM, nml pulses b/l. NEURO EXAM: Normal sensorium, cranial nerves II-XII grossly intact, normal speech, no gross weakness of arms, no gross weakness of legs. No pronator drift. Finger to nose intact. Gross sensation intact. Course Course 1950: Patient and family at bedside updated on results thus far. Administered Medications Acetaminophen (Acetaminophen 325 Mg Tab) 650 mg PO Q4H PRN PRN Reason: Pain or Fever Stop: 12/01/21 00:09 Last Admin: 11/01/21 08:24 Dose: 650 mg Documented By: Admin: 11/01/21 01:36 Dose: 650 mg Documented By: [id number] Allopurinol (Allopurinol 100 Mg Tab) 200 mg PO DAILY [facility] Stop: 12/01/21 08:59 Last Admin: 11/01/21 07:00 Dose: 200 mg Documented By: NAVID Amlodipine Besylate (Amlodipine Besylate 5 Mg Tab) 2.5 mg PO QAM [facility] Stop: 12/01/21 08:59 Last Admin: 11/01/21 07:28 Dose: 2.5 mg Documented By: NAVID Apixaban (Apixaban 5 Mg Tablet) 5 mg PO BID [facility] Stop: 12/01/21 08:59 Last Admin: 11/01/21 08:11 Dose: 5 mg Documented By: NAVID Ascorbic Acid (Ascorbic Acid 500 Mg Tab) 250 mg PO DAILY MOLINA Stop: 12/01/21 08:59 Last Admin: 11/01/21 07:33 Dose: 250 mg Documented By: NAVID Clonidine HCl (Clonidine Hcl 0.1 Mg Tab) 0.1 mg PO Q4H PRN PRN Reason: Hypertension Stop: 12/01/21 00:34 Last Admin: 11/01/21 01:36 Dose: 0.1 mg Documented By: [id number] Clopidogrel Bisulfate (Clopidogrel Bisulfate 75 Mg Tab) 75 mg PO QAM [facility] Stop: 12/01/21 08:59 Last Admin: 11/01/21 07:33 Dose: 75 mg Documented By: NAVID Doxycycline Hyclate (Doxycycline Hyclate 100 Mg Cap) 100 mg PO BID [facility] Stop: 11/03/21 15:04 Last Admin: 11/01/21 15:37 Dose: 100 mg Documented By: NIRU Ferrous Sulfate (Ferrous Sulfate 325 Mg Tab) 325 mg PO DAILY [facility] Stop: 12/01/21 08:59 Last Admin: 11/01/21 07:28 Dose: 325 mg Documented By: NAVID Folic Acid (Folic Acid 1 Mg Tab) [facility] Stop: 12/01/21 08:59 Last Admin: 11/01/21 07:26 Dose: 1 mg Documented By: NAVID Ceftriaxone Sodium 2,000 mg/ (Dextrose) 70 mls @ 140 mls/hr IV Q24H [facility]; Protocol Stop: 11/11/21 00:59 Last Infusion: 11/01/21 01:52 Dose: 0 mls/hr Documented By: [id number] Admin: 11/01/21 01:09 Dose: 140 mls/hr Documented By: [id number] Metoprolol Tartrate (Metoprolol Tartrate 25 Mg Tab) 12.5 mg PO BID [facility] Stop: 12/01/21 08:59 Last Admin: 11/01/21 07:30 Dose: 12.5 mg Documented By: NAVID Thiamine HCl (Thiamine Hcl 100 Mg Tab) 100 mg PO [facility] Stop: 12/01/21 08:59 Last Admin: 11/01/21 07:26 Dose: 100 mg Documented By: NAVID Vitamin D (Cholecalciferol 1,000 Units 25 Mcg Tab) 2,000 units PO [facility] Stop: 12/01/21 08:59 Last Admin: 11/01/21 07:30 Dose: 2,000 units Documented By: NAVID Discontinued Medications Bisacodyl (Bisacodyl 10 Mg Supp) 10 mg [place] ONE ONE Stop: 11/01/21 08:01 Last Admin: 11/01/21 11:10 Dose: Not Given Documented By: NAVID Gabapentin (Gabapentin 600 Mg Tab) 1,200 mg PO NOW ONE Stop: 11/01/21 00:46 Last Admin: 11/01/21 01:12 Dose: 1,200 mg Documented By: [id number] Gabapentin (Gabapentin 600 Mg Tab) 600 mg PO Q6H [facility] Stop: 11/01/21 12:46 Last Admin: 11/01/21 06:00 Dose: 600 mg Documented By: [id number] Sodium Chloride (Nss 1000ml) 1,000 mls @ 125 mls/hr IV .Q8H MOLINA Stop: 11/30/21 16:29 Last Infusion: 11/01/21 00:27 Dose: 0 mls/hr Documented By: [id number] Admin: 10/31/21 17:18 Dose: 125 mls/hr Documented By: TRH Acetaminophen (Ofirmev) 1,000 mg in 100 mls @ 400 mls/hr IV NOW STA Stop: 10/31/21 18:32 Last Infusion: 10/31/21 19:42 Dose: 0 mls/hr Documented By: Admin: 10/31/21 18:50 Dose: 400 mls/hr Documented By: TRH Sodium Chloride (1/2 Nss) 1,000 mls @ 80 mls/hr IV .[id number] MOLINA Stop: 11/01/21 12:39 Last Infusion: 11/01/21 13:44 Dose: 0 mls/hr Documented By: Admin: 11/01/21 01:09 Dose: 80 mls/hr Documented By: [id number] Multivitamins 10 ml/ Thiamine HCl 100 mg/ Folic Acid 1 mg/Sodium Chloride 1,011.2 mls @ 500 mls/hr IV .Q2H2M ONE Stop: 11/01/21 02:46 Last Infusion: 11/01/21 04:10 Dose: 0 mls/hr Documented By: [id number] Admin: 11/01/21 01:36 Dose: 500 mls/hr Documented By: [id number] Lorazepam 2 mg/ Syringe 2 mls @ 2 mls/min IV UD PRN; Protocol PRN Reason: EtOH Withdrawal AWSS Score 8,9 Stop: 12/01/21 00:32 Last Admin: 11/01/21 01:36 Dose: 2 mls/min Documented By: [id number] Ioversol (Optiray 320 125ml) 120 ml IV ONCE ONE Stop: 10/31/21 18:32 Last Admin: 10/31/21 18:32 Dose: 120 ml Documented By: BETHANY Labetalol HCl (Labetalol Hcl Iv 5 Mg/Ml 20ml) 10 mg IV NOW STA Stop: 10/31/21 23:13 Last Admin: 10/31/21 23:37 Dose: Not Given Documented By: MAGNO Labetalol HCl (Labetalol Hcl Iv 5 Mg/Ml 20ml) Confirm Administered Dose 10 mg IV .STK-MED ONE Stop: 10/31/21 23:23 Last Admin: 10/31/21 23:23 Dose: 10 mg Documented By: MAGNO Co-signed By: CECI Lactulose (Lactulose Syrup 30 Gm/45 Ml Udp) 30 gm PO ONE ONE Stop: 11/01/21 08:01 Last Admin: 11/01/21 07:35 Dose: 30 gm Documented By: NAVID Medical Decision Making Differential Diagnosis Differential diagnosis includes etiologies such as benign positional vertigo, dehydration, hypovolemia, anemia, tumor, infection, hypoglycemia, electrolyte abnormalities, cardiac sources, intracerebral event, toxicologic, neurologic, as well as others were entertained. Medical Records Attestation: I reviewed the patient's medical records. Home Medications Current Medication List: was personally reviewed by me Laboratory Data Attestation: I reviewed the patient's lab results. Result diagrams: 11/01/21 06:56 11/01/21 05:22 Lab Results 10/31/21 10/31/21 10/31/21 Range/Units 16:55 16:55 16:55 WBC Cancelled RBC Cancelled Hgb Cancelled Hct Cancelled MCV Cancelled MCH Cancelled MCHC Cancelled RDW Std Deviation Cancelled RDW Coeff of Chaka Cancelled Plt Count Cancelled MPV Cancelled Immature Gran % (Auto) Cancelled Neut % (Auto) Cancelled Lymph % (Auto) Cancelled [place] % (Auto) Cancelled Eos % (Auto) Cancelled Baso % (Auto) Cancelled Neut # (Auto) Cancelled Lymph # (Auto) Cancelled [place] # (Auto) Cancelled Eos # (Auto) Cancelled Baso # (Auto) Cancelled Immature Gran # (Auto) Cancelled Absolute Nucleated RBC Cancelled Nucleated RBC % (auto) Cancelled Neutrophils % (Manual) Cancelled Band Neutrophils % Cancelled Lymphocytes % (Manual) Cancelled Prolymphocyte % Cancelled Reactive Lymphs % (Man) Cancelled Monocytes % (Manual) Cancelled Eosinophils % (Manual) Cancelled Basophils % (Manual) Cancelled Metamyelocytes % (Man) Cancelled Myelocytes % (Man) Cancelled Promyelocytes % (Man) Cancelled Blast Cells % (Manual) Cancelled Plasma Cell % (Manual) Cancelled Other Cells % Cancelled Nucleated RBC % Cancelled Neutrophils # (Manual) Cancelled Band Neutrophils # Cancelled Total Absolute Neuts Cancelled Lymphocytes # (Manual) Cancelled Prolymphocyte # Cancelled Reactive Lymphs # Cancelled Total Abs Lymphocytes Cancelled Monocytes # (Manual) Cancelled Eosinophils # (Manual) Cancelled Basophils # (Manual) Cancelled Metamyelocytes # (Man) Cancelled Myelocytes # (Manual) Cancelled Promyelocytes # (Man) Cancelled Blast Cells # (Man) Cancelled Plasma Cell # (Manual) Cancelled Other Cells # Cancelled Nucleated RBCs # (Man) Cancelled Hypersegmented Neuts Cancelled Hyposegmented Neuts Cancelled Hypogranular Neuts Cancelled Large Granular Lymphs Cancelled # Lrg Granular Lymphs Cancelled Hairy Cells Cancelled Smudge Cells Cancelled Toxic Granulation Cancelled Toxic Vacuolation Cancelled Dohle Bodies Cancelled Ammy Rods Cancelled Platelet Estimate Cancelled Hypogranular Platelets Cancelled Clumped Platelets Cancelled Giant Platelets Cancelled Platelet Satelliting Cancelled RBC Morphology Cancelled Polychromasia Cancelled Hypochromasia Cancelled Poikilocytosis Cancelled Basophilic Stippling Cancelled Anisocytosis Cancelled Microcytosis Cancelled Macrocytosis Cancelled Spherocytes Cancelled Pappenheimer Bodies Cancelled Sickle Cells Cancelled Target Cells Cancelled Tear Drop Cells Cancelled Ovalocytes Cancelled Stomatocytes Cancelled [place] Bodies Cancelled Echinocytes Cancelled Acanthocytes (Spur) Cancelled Rouleaux Cancelled RBC Agglutinates Cancelled Schistocytes Cancelled Sezary Cell Cancelled PT Cancelled INR Cancelled Sodium (136-145) mmol/L Potassium Chloride (98-107) mmol/L Carbon Dioxide (21-32) mmol/L Anion Gap (3-11) BUN (6-23) mg/dl Creatinine (0.6-1.4) mg/dl Est Cr Clr Drug Dosing ml/min Est GFR ( Amer) ml/min Est GFR (Non-Af Amer) ml/min BUN/Creatinine Ratio (10-20) Glucose (70-99(Fasting)) mg/dl Calcium (8.5-10.1) mg/dl Magnesium (1.7-2.4) mg/dl Total Bilirubin (0.2-1.0) mg/dl AST ALT (7-52) U/L Alkaline Phosphatase (34-104) U/L Troponin I High Sens (0-20) pg/ml Total Protein (6.0-8.3) gm/dl Albumin (3.4-5.0) gm/dl Globulin (2.5-4.0) gm/dl Albumin/Globulin Ratio (0.9-2) Lipase (11-82) U/L Procalcitonin Cancelled TSH (0.300-4.500) uIu/ml Urine Color Urine Appearance (Clear) Urine pH (4.5-7.5) Ur Specific [place] (1.000-1.030) Urine Protein (Negative) Urine Glucose (UA) (Negative) Urine Ketones (Negative) Urine Blood (Negative) Urine Nitrite (Negative) Urine Bilirubin (Negative) Urine Urobilinogen (Negative) Ur Leukocyte Esterase (Negative) Urine WBC (Auto) (0-5) /hpf Urine RBC (Auto) (0-4) /hpf U Hyaline Cast (Auto) (0-5) /lpf U Epithel Cells (Auto) (0-5) /lpf Urine Bacteria (Auto) (Negative) Ur Renal Epithelial Cell Lyme Disease IgG Ab Cancelled Lyme Disease IgM Ab Cancelled SARS-CoV-2 (PCR) (Negative) Influenza Type A (PCR) (Neg) Influenza Type B (PCR) (Neg) RSV (RT-PCR) (Neg) Blood Parasites ID Cancelled 10/31/21 10/31/21 10/31/21 Range/Units 16:55 16:55 17:25 WBC RBC Hgb Hct MCV MCH MCHC RDW Std Deviation RDW Coeff of Chaka Plt Count MPV Immature Gran % (Auto) Neut % (Auto) Lymph % (Auto) [place] % (Auto) Eos % (Auto) Baso % (Auto) Neut # (Auto) Lymph # (Auto) [place] # (Auto) Eos # (Auto) Baso # (Auto) Immature Gran # (Auto) Absolute Nucleated RBC Nucleated RBC % (auto) Neutrophils % (Manual) Band Neutrophils % Lymphocytes % (Manual) Prolymphocyte % Reactive Lymphs % (Man) Monocytes % (Manual) Eosinophils % (Manual) Basophils % (Manual) Metamyelocytes % (Man) Myelocytes % (Man) Promyelocytes % (Man) Blast Cells % (Manual) Plasma Cell % (Manual) Other Cells % Nucleated RBC % Neutrophils # (Manual) Band Neutrophils # Total Absolute Neuts Lymphocytes # (Manual) Prolymphocyte # Reactive Lymphs # Total Abs Lymphocytes Monocytes # (Manual) Eosinophils # (Manual) Basophils # (Manual) Metamyelocytes # (Man) Myelocytes # (Manual) Promyelocytes # (Man) Blast Cells # (Man) Plasma Cell # (Manual) Other Cells # Nucleated RBCs # (Man) Hypersegmented Neuts Hyposegmented Neuts Hypogranular Neuts Large Granular Lymphs # Lrg Granular Lymphs Hairy Cells Smudge Cells Toxic Granulation Toxic Vacuolation Dohle Bodies Ammy Rods Platelet Estimate Hypogranular Platelets Clumped Platelets Giant Platelets Platelet Satelliting RBC Morphology Polychromasia Hypochromasia Poikilocytosis Basophilic Stippling Anisocytosis Microcytosis Macrocytosis Spherocytes Pappenheimer Bodies Sickle Cells Target Cells Tear Drop Cells Ovalocytes Stomatocytes Doty[place] Bodies Echinocytes Acanthocytes (Spur) Rouleaux RBC Agglutinates Schistocytes Sezary Cell PT INR Sodium 133 L (136-145) mmol/L Potassium TNP Chloride 100 (98-107) mmol/L Carbon Dioxide 23 (21-32) mmol/L Anion Gap 10 (3-11) BUN 26 H (6-23) mg/dl Creatinine 2.01 H (0.6-1.4) mg/dl Est Cr Clr Drug Dosing 36.0 ml/min Est GFR ( Amer) 37.0 ml/min Est GFR (Non-Af Amer) 32.0 ml/min BUN/Creatinine Ratio 12.9 (10-20) Glucose 124 H (70-99(Fasting)) mg/dl Calcium 8.9 (8.5-10.1) mg/dl Magnesium 2.0 (1.7-2.4) mg/dl Total Bilirubin 0.9 (0.2-1.0) mg/dl AST TNP ALT 16 (7-52) U/L Alkaline Phosphatase 85 (34-104) U/L Troponin I High Sens 19.1 (0-20) pg/ml Total Protein 7.9 (6.0-8.3) gm/dl Albumin 4.0 (3.4-5.0) gm/dl Globulin 3.9 (2.5-4.0) gm/dl Albumin/Globulin Ratio 1.0 (0.9-2) Lipase 49 (11-82) U/L Procalcitonin TSH 1.390 (0.300-4.500) uIu/ml Urine Color Urine Appearance (Clear) Urine pH (4.5-7.5) Ur Specific [place] (1.000-1.030) Urine Protein (Negative) Urine Glucose (UA) (Negative) Urine Ketones (Negative) Urine Blood (Negative) Urine Nitrite (Negative) Urine Bilirubin (Negative) Urine Urobilinogen (Negative) Ur Leukocyte Esterase (Negative) Urine WBC (Auto) (0-5) /hpf Urine RBC (Auto) (0-4) /hpf U Hyaline Cast (Auto) (0-5) /lpf U Epithel Cells (Auto) (0-5) /lpf Urine Bacteria (Auto) (Negative) Ur Renal Epithelial Cell Lyme Disease IgG Ab Lyme Disease IgM Ab SARS-CoV-2 (PCR) NEGATIVE (Negative) Influenza Type A (PCR) Negative (Neg) Influenza Type B (PCR) Negative (Neg) RSV (RT-PCR) Negative (Neg) Blood Parasites ID 10/31/21 10/31/21 10/31/21 Range/Units 17:45 18:03 18:03 WBC 7.40 RBC 3.76 L Hgb 12.4 L Hct 38.5 L MCV 102.4 H MCH 33.0 MCHC 32.2 RDW Std Deviation 53.3 H RDW Coeff of Chaka 14.1 Plt Count 197 MPV 10.1 Immature Gran % (Auto) 0.4 Neut % (Auto) 82.6 Lymph % (Auto) 7.7 [place] % (Auto) 8.6 Eos % (Auto) 0.0 Baso % (Auto) 0.7 Neut # (Auto) 6.11 Lymph # (Auto) 0.57 L [place] # (Auto) 0.64 Eos # (Auto) 0.00 Baso # (Auto) 0.05 Immature Gran # (Auto) 0.03 H Absolute Nucleated RBC Nucleated RBC % (auto) Neutrophils % (Manual) Band Neutrophils % Lymphocytes % (Manual) Prolymphocyte % Reactive Lymphs % (Man) Monocytes % (Manual) Eosinophils % (Manual) Basophils % (Manual) Metamyelocytes % (Man) Myelocytes % (Man) Promyelocytes % (Man) Blast Cells % (Manual) Plasma Cell % (Manual) Other Cells % Nucleated RBC % Neutrophils # (Manual) Band Neutrophils # Total Absolute Neuts Lymphocytes # (Manual) Prolymphocyte # Reactive Lymphs # Total Abs Lymphocytes Monocytes # (Manual) Eosinophils # (Manual) Basophils # (Manual) Metamyelocytes # (Man) Myelocytes # (Manual) Promyelocytes # (Man) Blast Cells # (Man) Plasma Cell # (Manual) Other Cells # Nucleated RBCs # (Man) Hypersegmented Neuts Hyposegmented Neuts Hypogranular Neuts Large Granular Lymphs # Lrg Granular Lymphs Hairy Cells Smudge Cells Toxic Granulation Toxic Vacuolation Dohle Bodies Ammy Rods Platelet Estimate Hypogranular Platelets Clumped Platelets Giant Platelets Platelet Satelliting RBC Morphology Polychromasia Hypochromasia Poikilocytosis Basophilic Stippling Anisocytosis Microcytosis Macrocytosis Spherocytes Pappenheimer Bodies Sickle Cells Target Cells Tear Drop Cells Ovalocytes Stomatocytes Dot[place] Bodies Echinocytes Acanthocytes (Spur) Rouleaux RBC Agglutinates Schistocytes Sezary Cell PT INR Sodium (136-145) mmol/L Potassium Chloride (98-107) mmol/L Carbon Dioxide (21-32) mmol/L Anion Gap (3-11) BUN (6-23) mg/dl Creatinine (0.6-1.4) mg/dl Est Cr Clr Drug Dosing ml/min Est GFR ( Amer) ml/min Est GFR (Non-Af Amer) ml/min BUN/Creatinine Ratio (10-20) Glucose (70-99(Fasting)) mg/dl Calcium (8.5-10.1) mg/dl Magnesium (1.7-2.4) mg/dl Total Bilirubin (0.2-1.0) mg/dl AST ALT (7-52) U/L Alkaline Phosphatase (34-104) U/L Troponin I High Sens (0-20) pg/ml Total Protein (6.0-8.3) gm/dl Albumin (3.4-5.0) gm/dl Globulin (2.5-4.0) gm/dl Albumin/Globulin Ratio (0.9-2) Lipase (11-82) U/L Procalcitonin 0.31 TSH (0.300-4.500) uIu/ml Urine Color Yellow Urine Appearance Clear (Clear) Urine pH 6.5 (4.5-7.5) Ur Specific [place] 1.022 (1.000-1.030) Urine Protein 3+ H (Negative) Urine Glucose (UA) Negative (Negative) Urine Ketones Trace H (Negative) Urine Blood Trace H (Negative) Urine Nitrite Negative (Negative) Urine Bilirubin Negative (Negative) Urine Urobilinogen Negative (Negative) Ur Leukocyte Esterase 1+ H (Negative) Urine WBC (Auto) 1-5 (0-5) /hpf Urine RBC (Auto) 5-10 H (0-4) /hpf U Hyaline Cast (Auto) 1-5 (0-5) /lpf U Epithel Cells (Auto) >30 H (0-5) /lpf Urine Bacteria (Auto) Negative (Negative) Ur Renal Epithelial Cell Not Reportable Lyme Disease IgG Ab Negative Lyme Disease IgM Ab Negative SARS-CoV-2 (PCR) (Negative) Influenza Type A (PCR) (Neg) Influenza Type B (PCR) (Neg) RSV (RT-PCR) (Neg) Blood Parasites ID 10/31/21 10/31/21 Range/Units 18:03 18:03 WBC RBC Hgb Hct MCV MCH MCHC RDW Std Deviation RDW Coeff of Chaka Plt Count MPV Immature Gran % (Auto) Neut % (Auto) Lymph % (Auto) [place] % (Auto) Eos % (Auto) Baso % (Auto) Neut # (Auto) Lymph # (Auto) [place] # (Auto) Eos # (Auto) Baso # (Auto) Immature Gran # (Auto) Absolute Nucleated RBC Nucleated RBC % (auto) Neutrophils % (Manual) Band Neutrophils % Lymphocytes % (Manual) Prolymphocyte % Reactive Lymphs % (Man) Monocytes % (Manual) Eosinophils % (Manual) Basophils % (Manual) Metamyelocytes % (Man) Myelocytes % (Man) Promyelocytes % (Man) Blast Cells % (Manual) Plasma Cell % (Manual) Other Cells % Nucleated RBC % Neutrophils # (Manual) Band Neutrophils # Total Absolute Neuts Lymphocytes # (Manual) Prolymphocyte # Reactive Lymphs # Total Abs Lymphocytes Monocytes # (Manual) Eosinophils # (Manual) Basophils # (Manual) Metamyelocytes # (Man) Myelocytes # (Manual) Promyelocytes # (Man) Blast Cells # (Man) Plasma Cell # (Manual) Other Cells # Nucleated RBCs # (Man) Hypersegmented Neuts Hyposegmented Neuts Hypogranular Neuts Large Granular Lymphs # Lrg Granular Lymphs Hairy Cells Smudge Cells Toxic Granulation Toxic Vacuolation Dohle Bodies Ammy Rods Platelet Estimate Hypogranular Platelets Clumped Platelets Giant Platelets Platelet Satelliting RBC Morphology Polychromasia Hypochromasia Poikilocytosis Basophilic Stippling Anisocytosis Microcytosis Macrocytosis Spherocytes Pappenheimer Bodies Sickle Cells Target Cells Tear Drop Cells Ovalocytes Stomatocytes [place] Bodies Echinocytes Acanthocytes (Spur) Rouleaux RBC Agglutinates Schistocytes Sezary Cell PT 11.9 INR 1.1 Sodium (136-145) mmol/L Potassium 4.0 Chloride (98-107) mmol/L Carbon Dioxide (21-32) mmol/L Anion Gap (3-11) BUN (6-23) mg/dl Creatinine (0.6-1.4) mg/dl Est Cr Clr Drug Dosing ml/min Est GFR ( Amer) ml/min Est GFR (Non-Af Amer) ml/min BUN/Creatinine Ratio (10-20) Glucose (70-99(Fasting)) mg/dl Calcium (8.5-10.1) mg/dl Magnesium (1.7-2.4) mg/dl Total Bilirubin (0.2-1.0) mg/dl AST 21 ALT (7-52) U/L Alkaline Phosphatase (34-104) U/L Troponin I High Sens (0-20) pg/ml Total Protein (6.0-8.3) gm/dl Albumin (3.4-5.0) gm/dl Globulin (2.5-4.0) gm/dl Albumin/Globulin Ratio (0.9-2) Lipase (11-82) U/L Procalcitonin TSH (0.300-4.500) uIu/ml Urine Color Urine Appearance (Clear) Urine pH (4.5-7.5) Ur Specific [place] (1.000-1.030) Urine Protein (Negative) Urine Glucose (UA) (Negative) Urine Ketones (Negative) Urine Blood (Negative) Urine Nitrite (Negative) Urine Bilirubin (Negative) Urine Urobilinogen (Negative) Ur Leukocyte Esterase (Negative) Urine WBC (Auto) (0-5) /hpf Urine RBC (Auto) (0-4) /hpf U Hyaline Cast (Auto) (0-5) /lpf U Epithel Cells (Auto) (0-5) /lpf Urine Bacteria (Auto) (Negative) Ur Renal Epithelial Cell Lyme Disease IgG Ab Lyme Disease IgM Ab SARS-CoV-2 (PCR) (Negative) Influenza Type A (PCR) (Neg) Influenza Type B (PCR) (Neg) RSV (RT-PCR) (Neg) Blood Parasites ID Imaging Data Radiologist's Impression: Head CTA 10/31/21 16:22 HEAD & NECK CTA HISTORY: dizziness, hx cva TECHNIQUE: Multiaxial CT images of the head were performed following the intravenous administration of contrast to evaluate the major cerebral vessels. Multiaxial CT images of the neck were also performed following the intravenous administration of contrast to evaluate the major cervical vessels. Maximum intensity projection images were also obtained. A dose lowering technique was utilized adhering to the principles of ALARA. COMPARISON: Head and neck CTA 06/10/2020. FINDINGS: There is no mass, hematoma, midline shift, or acute infarct. Visualized intracr anial internal carotid arteries, distal vertebral arteries, and basilar artery are widely patent. There is no significant stenosis, occlusion, or aneurysm seen within the bilateral ACAs, MCAs, or lieutenant/deputy. The major dural venous sinuses are patent. Moderate calcified plaque within the bilateral carotid siphons. Mild calcified plaque within the distal bilateral vertebral arteries. Partially visualized aneurysm at the aortic arch measuring 5 cm. This is similar to the prior study. There is also aneurysmal dilatation of the proximal subclavian artery measuring 2.5 cm. This is also similar to the prior study. Moderate atherosclerotic plaque within the aortic arch and proximal great vessels without significant stenosis. Severe calcified plaque within the bilateral carotid bifurcations resulting in up to 50% stenosis within the proximal right internal carotid artery and 30% stenosis within the proximal left internal carotid artery. The mid to distal bilateral internal carotid arteries are widely patent. No evidence for dissection within the carotid or vertebral arteries. Moderate calcified plaque at the takeoff of the right vertebral artery without significant stenosis. The left vertebral artery is widely patent. Mild emphysema. Stable 7 mm soft tissue nodule adjacent to the left false cord. IMPRESSION: 1. No significant stenosis, occlusion, or aneurysm within the [place]. 2. No significant change in the 50% stenosis within the proximal right internal carotid artery due to the atherosclerotic plaque. 3. 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 ACT 112: Negative or not required by law. Electronically signed by: Angel Mak M.D. 10/31/2021 6:46 PM Neck CTA 10/31/21 16:22 HEAD & NECK CTA HISTORY: dizziness, hx cva TECHNIQUE: Multiaxial CT images of the head were performed following the intravenous administration of contrast to evaluate the major cerebral vessels. Multiaxial CT images of the neck were also performed following the intravenous administration of contrast to evaluate the major cervical vessels. Maximum intensity projection images were also obtained. A dose lowering technique was utilized adhering to the principles of ALARA. COMPARISON: Head and neck CTA 06/10/2020. FINDINGS: There is no mass, hematoma, midline shift, or acute infarct. Visualized intracranial internal carotid arteries, distal vertebral arteries, and basilar artery are widely patent. There is no significant stenosis, occlusion, or aneurysm seen within the bilateral ACAs, MCAs, or lieutenant/deputy. The major dural venous sinuses are patent. Moderate calcified plaque within the bilateral carotid siphons. Mild calcified plaque within the distal bilateral vertebral arteries. Partially visualized aneurysm at the aortic arch measuring 5 cm. This is similar to the prior study. There is also aneurysmal dilatation of the proximal subclavian artery measuring 2.5 cm. This is also similar to the prior study. Moderate atherosclerotic plaque within the aortic arch and proximal great vessels without significant stenosis. Severe calcified plaque within the bilateral carotid bifurcations resulting in up to 50% stenosis within the proximal right internal carotid artery and 30% stenosis within the proximal left internal carotid artery. The mid to distal bilateral internal carotid arteries are widely patent. No evidence for dissection within the carotid or vertebral arteries. Moderate calcified plaque at the takeoff of the right vertebral artery without significant stenosis. The left vertebral artery is widely patent. Mild emphysema. Stable 7 mm soft tissue nodule adjacent to the left false cord. IMPRESSION: 1. No significant stenosis, occlusion, or aneurysm within the [place]. 2. No significant change in the 50% stenosis within the proximal right internal carotid artery due to the atherosclerotic plaque. 3. 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 ACT 112: Negative or not required by law. Electronically signed by: Angel Mak M.D. 10/31/2021 6:46 PM Chest X-Ray 10/31/21 16:23 XR chest 1V portable HISTORY: cough, fever COMPARISON: Chest 06/10/2020. FINDINGS: No pneumothorax. No pleural effusions. The cardiac silhouette remains top normal in size. There is a tortuous thoracic aorta, unchanged. No new focal lung consolidations to suggest pneumonia. No evidence for pulmonary edema. Left calcified pleural plaques are again noted. Small linear density left lung base favor scarring or subsegmental atelectasis. IMPRESSION: No significant change compared to the prior study. No acute process. ACT 112: Negative or not required by law. Electronically signed by: Angel Mak M.D. 10/31/2021 5:[address] 10/31/21 16:[address] DOSE: HISTORY: dizziness, hx cva TECHNIQUE: Multiaxial CT images of the head were performed without the use of intravenous contrast. Automated exposure control was utilized for this study. A dose lowering technique was utilized adhering to the principles of ALARA. Comparison: Head and neck CTA 06/10/2020. Findings: The paranasal sinuses and mastoid air cells are clear. The calvarium and skull base are intact. The ventricles and sulci demonstrate mild age-related involutional changes. Periventricular white matter hypodensity favors microvascular ischemic change. This is similar to the prior study. There is no mass, hematoma, midline shift, acute infarct. There are old right frontal lobe, left occipital lobe, and right cerebellar infarcts. Old bilateral basal ganglia lacunar infarcts are also present. Impression: 1. No acute intracranial abnormality. 2. Old scattered infarcts as described above. ACT 112: Negative or not required by law. Electronically signed by: Angel Mak M.D. 10/31/2021 6:38 PM ECG Data Attestation: I personally reviewed and interpreted this ECG as follows: Indication: + other Rate (beats per minute): 80 Rhythm: + normal sinus ECG Intervals/blocks: + Normal QRS and + Normal QT ECG [place]: + Normal ECG ST segments: + Normal ST segments MDM Narrative An order was placed for continuous cardiac monitoring. The monitor shows a rate of _76_ with _normal sinus_ rhythm. This is a 71-year-old male presents emergency department due to concern for dizziness, constipation, shortness of breath. Patient was afebrile and hemo dynamically stable. Patient felt dizziness was similar to prior stroke, and EMR did confirm prior cerebellar stroke a year ago. Labs drawn and sent, patient sent for CT and CTA of the head/neck. He also had chest x-ray and KUB performed. No evidence of SBO. No evidence of acute pulmonary pathology. CT imaging of the head and neck were reassuring, no significant change noted. Patient's creatinine was elevated compared to prior although he does have a history of CKD. Upon additional questioning I suspect some of this could be related to poor water intake and dehydration. Patient's other labs reassuring. I do not suspect occult infectious etiology including UTI. Given persistent dizziness, MAGDALENO, and complicated past medical history, case discussed with hospitalist for additional evaluation and management. Impression & Plan Dizziness, MAGDALENO (acute kidney injury), Dehydration, Constipation Discharge Plan Visit Data Chief Complaint: Illness Stated Complaint: COLD, NUMBNESS, HISTORY OF STROKES ED Provider: Danna Aldana Discharge Problem: Dizziness, MAGDALENO (acute kidney injury), Dehydration, Constipation Patient Disposition: Admitted As Inpatient Condition: Fair Discharge Instructions Interventions: ED Discharge Assessment Last Done: 10/31/21 23:45
[2021-10-31] MEDS ORDERED: SODIUM CHLORIDE 0.9% 1000ML 1,000 ML IV SCH (16:30)
--- NOTE | 2021-10-31 17:09 | XRay Report ---
XR chest 1V portable HISTORY: cough, fever COMPARISON: Chest 06/10/2020. FINDINGS: No pneumothorax. No pleural effusions. The cardiac silhouette remains top normal in size. T here is a tortuous thoracic aorta, unchanged. No new focal lung consolidations to suggest pneumonia. No evidence for pulmonary edema. Left calcified pleural plaques are again noted. Small linear density left lung base favor scarring or subsegmental atelectasis. IMPRESSION: No significant change compared to the prior study. No acute process. ACT 112: Negative or not required by law. Electronically signed by: Angel Mak M.D. 10/31/2021 5:08 PM
[2021-10-31 17:48] LABS: Troponin I High Sensitivity 19.1 pg/ml (0-20)
[2021-10-31 17:58] LABS: Alanine Aminotransferase 16 U/L (7-52); Alkaline Phosphatase 85 U/L (34-104); Anion Gap 10 (3-11); BUN Creatinine Ratio 12.9 (10-20); Bilirubin,Total 0.9 mg/dl (0.2-1.0); Blood Urea Nitrogen 26 mg/dl (6-23); Calcium 8.9 mg/dl (8.5-10.1); Carbon Dioxide 23 mmol/L (21-32); Chloride 100 mmol/L (98-107); Globulin 3.9 gm/dl (2.5-4.0); Glucose 124 mg/dl (70-99(Fasting)); Lipase 49 U/L (11-82); Sodium 133 mmol/L (136-145); Total Protein 7.9 gm/dl (6.0-8.3)
[2021-10-31 18:04] LABS: Appearance Urine Clear (Clear); Bacteria Urine Automated Negative (Negative); Bilirubin Urine Negative (Negative); Blood Urine Trace (Negative); Color Urine Yellow; Epithelial Cell Urine Auto >30 /lpf (0-5); Glucose Urine UA Negative (Negative); Ketones Urine Trace (Negative); Leukocyte Esterase Urine 1+ (Negative); Nitrite Urine Negative (Negative); Protein Urine 3+ (Negative); Specific Gravity Urine 1.022 (1.000-1.030); Urobilinogen Urine Negative (Negative); pH Urine 6.5 (4.5-7.5)
[2021-10-31 18:13] LABS: Basophils # (auto) 0.05 K/uL (0-0.2); Basophils % (auto) 0.7 %; Hematocrit (blood only) 38.5 % (40.1-51.0); Hemoglobin 12.4 g/dl (14.0-18.0); Immature Granulocytes # (auto) 0.03 K/uL (0.00-0.02); Immature Granulocytes % (auto) 0.4 %; Lymphocytes # (auto) 0.57 K/uL (1.2-3.4); Lymphocytes % (auto) 7.7 %; Mean Corpuscular Hgb Conc 32.2 g/dL (32.0-36.0); Mean Corpuscular Volume 102.4 fL (80.0-100.0); Mean Platelet Volume 10.1 fL (9.4-12.4); Monocytes # (auto) 0.64 K/uL (0.24-0.82); Monocytes % (auto) 8.6 %; Neutrophils # (auto) 6.11 K/uL (1.4-6.5); Neutrophils % (auto) 82.6 %; Platelet Count 197 K/uL (130-400); RDW Coefficient of Variation 14.1 % (11.5-14.5); RDW Standard Deviation 53.3 fL (36.4-46.3); Red Blood Count 3.76 M/uL (4.63-6.08)
[2021-10-31 18:14] LABS: Influenza A virus by PCR Negative (Neg); Influenza B virus by PCR Negative (Neg); RSV by PCR Negative (Neg); SARS CoV2 RNA(COVID-19) InHosp NEGATIVE (Negative)
[2021-10-31] MEDS ORDERED: ACETAMINOPHEN 1,000 MG/100 ML VIAL IV STA (18:18)
[2021-10-31 18:25] LABS: INR 1.1 (0.9-1.1); Prothrombin Time 11.9 Seconds (9.0-12.0)
[2021-10-31] MEDS ORDERED: OPTIRAY 320 125ml IV ONE (18:31)
--- NOTE | 2021-10-31 18:40 | CT Scan Report ---
HEAD CT NONCONTRAST CT DOSE: HISTORY: dizziness, hx cva TECHNIQUE: Multiaxial CT images of the head were performed without the use of intravenous contrast. A utomated exposure control was utilized for this study. A dose lowering technique was utilized adheri ng to the principles of ALARA. Comparison: Head and neck CTA 06/10/2020. Findings: The paranasal sinuses and mastoid air cells are clear. The calvarium and skull base are int act. The ventricles and sulci demonstrate mild age-related involutional changes. Periventricular whit e matter hypodensity favors microvascular ischemic change. This is similar to the prior study. There is no mass, hematoma, midline shift, acute infarct. There are old right frontal lobe, left occipital lobe, and right cerebellar infarcts. Old bilateral basal ganglia lacunar infarcts are also present. Impression: 1. No acute intracranial abnormality. 2. Old scattered infarcts as described above. ACT 112: Negative or not required by law. Electronically signed by: Angel Mak M.D. 10/31/2021 6:38 PM
--- NOTE | 2021-10-31 18:48 | CT Scan Report ---
HEAD & NECK CTA HISTORY: dizziness, hx cva TECHNIQUE: Multiaxial CT images of the head were performed following the intravenous administration o f contrast to evaluate the major cerebral vessels. Multiaxial CT images of the neck were also perform ed following the intravenous administration of contrast to evaluate the major cervical vessels. Maxim um intensity projection images were also obtained. A dose lowering technique was utilized adhering to the principles of ALARA. COMPARISON: Head and neck CTA 06/10/2020. FINDINGS: There is no mass, hematoma, midline shift, or acute infarct. Visualized intracranial internal carotid arteries, distal vertebral arteries, and basilar artery are widely patent. There is no significant s tenosis, occlusion, or aneurysm seen within the bilateral ACAs, MCAs, or dot net architect. The major dural venous sinuses are patent. Moderate calcified plaque within the bilateral carotid siphons. Mild calcified p laque within the distal bilateral vertebral arteries. Partially visualized aneurysm at the aortic arch measuring 5 cm. This is similar to the prior study. There is also aneurysmal dilatation of the proximal subclavian artery measuring 2.5 cm. This is also similar to the prior study. Moderate atherosclerotic plaque within the aortic arch and proximal grea t vessels without significant stenosis. Severe calcified plaque within the bilateral carotid bifurcat ions resulting in up to 50% stenosis within the proximal right internal carotid artery and 30% stenos is within the proximal left internal carotid artery. The mid to distal bilateral internal carotid art eries are widely patent. No evidence for dissection within the carotid or vertebral arteries. Moderat e calcified plaque at the takeoff of the right vertebral artery without significant stenosis. The lef t vertebral artery is widely patent. Mild emphysema. Stable 7 mm soft tissue nodule adjacent to the l eft false cord. IMPRESSION: 1. No significant stenosis, occlusion, or aneurysm within the [place]. 2. No significant change in the 50% stenosis within the proximal right internal carotid artery due to the atherosclerotic plaque. 3. 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 ACT 112: Negative or not required by law. Electronically signed by: Angel Mak M.D. 10/31/2021 6:46 PM
--- NOTE | 2021-10-31 18:48 | CT Scan Report ---
HEAD & NECK CTA HISTORY: dizziness, hx cva TECHNIQUE: Multiaxial CT images of the head were performed following the intravenous administration o f contrast to evaluate the major cerebral vessels. Multiaxial CT images of the neck were also perform ed following the intravenous administration of contrast to evaluate the major cervical vessels. Maxim um intensity projection images were also obtained. A dose lowering technique was utilized adhering to the principles of ALARA. COMPARISON: Head and neck CTA 06/10/2020. FINDINGS: There is no mass, hematoma, midline shift, or acute infarct. Visualized intracranial internal carotid arteries, distal vertebral arteries, and basilar artery are widely patent. There is no significant s tenosis, occlusion, or aneurysm seen within the bilateral ACAs, MCAs, or boot trimmer. The major dural venous sinuses are patent. Moderate calcified plaque within the bilateral carotid siphons. Mild calcified p laque within the distal bilateral vertebral arteries. Partially visualized aneurysm at the aortic arch measuring 5 cm. This is similar to the prior study. There is also aneurysmal dilatation of the proximal subclavian artery measuring 2.5 cm. This is also similar to the prior study. Moderate atherosclerotic plaque within the aortic arch and proximal grea t vessels without significant stenosis. Severe calcified plaque within the bilateral carotid bifurcat ions resulting in up to 50% stenosis within the proximal right internal carotid artery and 30% stenos is within the proximal left internal carotid artery. The mid to distal bilateral internal carotid art eries are widely patent. No evidence for dissection within the carotid or vertebral arteries. Moderat e calcified plaque at the takeoff of the right vertebral artery without significant stenosis. The lef t vertebral artery is widely patent. Mild emphysema. Stable 7 mm soft tissue nodule adjacent to the l eft false cord. IMPRESSION: 1. No significant stenosis, occlusion, or aneurysm within the [place]. 2. No significant change in the 50% stenosis within the proximal right internal carotid artery due to the atherosclerotic plaque. 3. 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 ACT 112: Negative or not required by law. Electronically signed by: Angel Mak M.D. 10/31/2021 6:46 PM
[2021-10-31 19:09] LABS: Procalcitonin 0.31 ng/ml (0-0.5)
[2021-10-31 19:12] LABS: Lyme Ab IgG w/WB Rflx Negative (Negative); Lyme Ab IgM w/WB Rflx Negative (Negative)
--- NOTE | 2021-10-31 20:18 | XRay Report ---
KUB HISTORY: constipation COMPARISON: KUB 06/10/2020. FINDINGS: No renal calculi. No ureteral calculi. No pneumoperitoneum or pneumatosis. Contrast within the bladder and renal collecting systems from the recent CT examination. Lumbar spinal fusion hardwar e and multiple suture crossing suggestive of prior ventral hernia repair again noted. Dextroscoliosis of the lumbar spine. Moderate well-formed stool seen throughout the colon. A few mildly dilated gas- filled loops of large and small bowel seen throughout the abdomen. There is gas within the rectum. Th erefore, this favors a mild ileus. IMPRESSION: 1. Moderate well-formed stool seen throughout the colon. 2. Mildly dilated gas-filled loops of large and small bowel seen throughout the abdomen. This favors a mild ileus. ACT 112: Negative or not required by law. Electronically signed by: Angel Mak M.D. 10/31/2021 8:16 PM
[2021-10-31] MEDS ORDERED: LABETALOL HCL IV 5 MG/ML 20ML IV STA (23:12)
[2021-10-31] MEDS ORDERED: LABETALOL HCL IV 5 MG/ML 20ML IV ONE (23:22)
[2021-11-01] MEDS ORDERED: hydrALAZINE HCL 20 MG/ML VIAL IV PRN (00:10)
[2021-11-01] MEDS ORDERED: FLUTICASONE PROPIONATE NA SPR 16 GM BTL PRN (00:10)
[2021-11-01] MEDS ORDERED: ALBUTEROL HFA 8 GM INHALER INH PRN (00:10)
[2021-11-01] MEDS ORDERED: TRIAMCINOLONE ACET 0.1% OINT 15 GM TUBE TOP PRN (00:10)
[2021-11-01] MEDS ORDERED: SODIUM CHLORIDE 0.45 % 1,000 ML IV SCH (00:10)
[2021-11-01] MEDS ORDERED: NITROGLYCERIN SL 0.4 MG/TAB TAB SL PRN (00:10)
[2021-11-01] MEDS ORDERED: ONDANSETRON INJ 2 MG/ML 2 ML VIAL IV PRN (00:10)
[2021-11-01] MEDS ORDERED: GABAPENTIN 1200MG ALCOHOL WITHDRAWAL LOAD PO STA (00:33)
[2021-11-01] MEDS ORDERED: LORazepam 2 MG in SYRINGE 1 ML IV PRN (00:33)
[2021-11-01] MEDS ORDERED: LORazepam 1 MG in SYRINGE 0.5 ML IV PRN (00:33)
[2021-11-01] MEDS ORDERED: LORazepam 3 MG in SYRINGE 1.5 ML IV PRN (00:33)
[2021-11-01] MEDS ORDERED: GABAPENTIN 600 MG TAB PO ONE (00:45)
[2021-11-01] MEDS ORDERED: ATIVAN IV ALCOHOL WITHDRAWL IV SCH (00:45)
[2021-11-01] MEDS ORDERED: MULTI-VITAMIN INFUSION 10 ML, THIAMINE HCL 100 MG, FOLIC ACID 1 MG in SODIUM CHLORIDE 0... IV ONE (00:45)
[2021-11-01] MEDS: cefTRIAXone SODIUM 2,000 MG in DEXTROSE 5% 50 ML IV SCH (01:09)
[2021-11-01] MEDS: ACETAMINOPHEN 325 MG TAB PO PRN ×3 (01:36→22:44)
[2021-11-01] MEDS: cloNIDine HCL 0.1 MG TAB PO PRN (01:36)
--- NOTE | 2021-11-01 01:42 | History and Physical Report ---
DATE OF ADMISSION: 10/31/2021. CHIEF COMPLAINT: Dizziness, not feeling well. 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 Ambulates without support. The patient had acute right cerebellar stroke in May of 2020. Echo showed patent foramen ovale, on Plavix, statin and Eliquis. The patient comes here because of feeling dizzy at home today, bloating and constipation, did not move his bowels for the last 2 days. He was worried about stroke-like symptoms from his dizziness, but currently the dizziness is improved. Bladder movements are okay. He had a temperature spike in the ER. Denies any burning micturition. Has mild dry cough. Denies any chest pain. He is always short of breath. He states he uses oxygen at home and CPAP during the night. Denies any headache. He has some vision loss in the right eye. No earache, no runny nose, no sore throat, no difficulty swallowing. Currently, resting comfortably, hemodynamically stable. ALLERGIES: RUBENS INHIBITORS, LISINOPRIL. PAST MEDICAL HISTORY: As mentioned above. PAST SURGICAL HISTORY: Open repair of abdominal aortic aneurysm, colonoscopy, multiple EGDs, lumbar spine surgery, tonsillectomy and adenoidectomy, tear duct system surgery. MEDICATIONS: The patient is on albuterol 2 puffs inhalation q.i.d. p.r.n., allopurinol 300 mg p.o. daily, amlodipine 2.5 mg p.o. a.m., atorvastatin 80 mg p.o. a.m., vitamin D 2000 units p.o. a.m., Plavix 75 mg p.o. a.m., Eliquis 5 mg p.o. b.i.d., Flonase 2 sprays intranasal daily p.r.n., metoprolol tartrate 12.5 mg p.o. b.i.d., triamcinolone 1 application topical b.i.d. p.r.n. Jackn-C 1 tablet p.o. daily. FAMILY HISTORY: Significant for father has AAA; brother has heart disorder, hypertension; mother has paralysis. SOCIAL HISTORY: , former smoker, quit in December 2018, smoked for 47 years. Alcohol occasionally. No drug use. REVIEW OF SYSTEMS: As per HPI. Rest of the review of systems is negative. PHYSICAL EXAMINATION: GENERAL: The patient is of moderate build, not in acute distress. VITAL SIGNS: Temperature 36.9, pulse 84, respiratory rate 20, blood pressure 222/146, oxygen 98% on room air. HEENT: Pupils equal, round and reactive to light. Oral mucosa moist. NECK: No JVD, no neck masses. CARDIOVASCULAR: S1 and S2 heard. Regular rate and rhythm. No murmur, no gallop. RESPIRATORY: Normal AP diameter. No accessory muscle use. No wheezing or crackles. ABDOMEN: Soft, bowel sounds present, nontender, no distention. CENTRAL NERVOUS SYSTEM: Cranial nerves II-XII grossly intact. Power 5/5 in all extremities. Sensation is intact. No pronator drift. Coordination of movements normal. EXTREMITIES: No edema, no erythema. LABORATORY DATA: WBC 7.4, hemoglobin 12.4, hematocrit 38.45, platelets 197. PT 11.9, INR 1.1. Sodium 133, potassium 4, chloride 108, bicarbonate 23, BUN 26, creatinine 2.01, serum glucose 124, calcium 8.9, magnesium 2, total bilirubin 0.9, AST 21, ALT 16, alkaline phosphatase 85. Troponin I high sensitivity 19.1. Lipase 49. Procalcitonin 0.3. TSH is 1.39. Urinalysis positive for leukocyte esterase, negative for bacteria. Lyme screen negative. SARS-CoV-2 PCR negative. Influenza A and B PCR negative. RSV PCR negative. IMAGING DATA: KUB x-ray: Moderate formed stool with mild ileus. CT of the head, no acute findings, old scattered infarcts. Chest x-ray, no significant change. CTA of the head and neck, no significant stenosis, occlusion or aneurysm within the [place], no significant change in the 50% stenosis in the right proximal internal carotid artery, proximal left subclavian artery aneurysms are also stable. EKG: Normal sinus rhythm at 80, no significant change was found. ASSESSMENT AND PLAN: This is a 71-year-old male who presents with dizziness and also found to have fever. 1. Dizziness. Currently resolved. PT, OT when stable. Gentle fluids.IF dizziness recurs or worsens may consider MRI as patinet hx of cva. 2. Fever. possible UTI. We will follow the cultures. Empirically started on Rocephin. We will monitor. 3. Acute kidney injury on chronic kidney disease, stage III: Baseline creatinine of 1.6, present creatinine of 2. Getting gentle fluids. We will follow the repeat labs in the a.m. 4. History of hyperlipidemia. Continue statin. 5. History of CVA: Continue statin, Plavix and Eliquis. 6. Gout. Continue allopurinol. 7. Hypertension. Continue amlodipine, metoprolol. Current blood pressure running high. We will place him on clonidine p.r.n. The dizziness could be from his uncontrolled blood pressure. 8. History of questionable AFib. The patient is on metoprolol and Eliquis. 9. Constipation and ileus. Will be given clear liquid diet for now. Stool softeners. Repeat KUB in the a.m. 10. History of abdominal aortic aneurysm, status post repair. 11. Questionable alcoholism. Seems drinks 2-3 beers /day? Started on gabapentin protocol , ativan prn. thiamine and folic acid. 12. DVT prophylaxis, Eliquis. DISPOSITION: Closely monitor in the med tele. PT/OT prior to discharge. Social service to help with discharge planning. Level 1 full code. Job ID: [id number] MTDD
[2021-11-01] MEDS ORDERED: GABAPENTIN 600 MG TAB PO SCH ×2 (06:45→20:45)
[2021-11-01] MEDS: allopurinoL 100 MG TAB PO SCH (07:00)
[2021-11-01 07:01] LABS: BUN Creatinine Ratio 12.6 (10-20); Calcium 7.8 mg/dl (8.5-10.1); Creatinine Clr Calc Pharmacy 36.5 ml/min; Est GFR (African American) 37.7 ml/min; Est GFR (Non-African American) 32.5 ml/min; Magnesium 1.7 mg/dl (1.7-2.4); Potassium 3.9 mmol/L (3.5-5.1)
[2021-11-01 07:19] LABS: Basophils # (auto) 0.04 K/uL (0-0.2); Basophils % (auto) 0.5 %; Immature Granulocytes # (auto) 0.03 K/uL (0.00-0.02); Immature Granulocytes % (auto) 0.4 %; Lymphocytes # (auto) 0.43 K/uL (1.2-3.4); Lymphocytes % (auto) 5.1 %; Mean Corpuscular Hemoglobin 32.9 pg (25.0-34.0); Mean Corpuscular Hgb Conc 32.4 g/dL (32.0-36.0); Mean Corpuscular Volume 101.4 fL (80.0-100.0); Mean Platelet Volume 10.5 fL (9.4-12.4); Monocytes # (auto) 0.61 K/uL (0.24-0.82); Monocytes % (auto) 7.2 %; Neutrophils # (auto) 7.39 K/uL (1.4-6.5); Neutrophils % (auto) 86.8 %; Platelet Count 130 K/uL (130-400); RDW Coefficient of Variation 14.1 % (11.5-14.5); RDW Standard Deviation 52.5 fL (36.4-46.3); Red Blood Count 3.65 M/uL (4.63-6.08)
[2021-11-01] MEDS: FOLIC ACID 1 MG TAB PO SCH (07:26)
[2021-11-01] MEDS: THIAMINE HCL 100 MG TAB PO SCH (07:26)
[2021-11-01] MEDS: amLODIPine BESYLATE 5 MG TAB PO SCH (07:28)
[2021-11-01] MEDS: FERROUS SULFATE 325 MG TAB PO SCH (07:28)
[2021-11-01] MEDS: CHOLECALCIFEROL 1,000 UNITS 25 MCG TAB PO SCH (07:30)
[2021-11-01] MEDS: METOPROLOL TARTRATE 25 MG TAB PO SCH ×2 (07:30→20:54)
[2021-11-01] MEDS: ASCORBIC ACID 500 MG TAB PO SCH (07:33)
[2021-11-01] MEDS: CLOPIDOGREL BISULFATE 75 MG TAB PO SCH (07:33)
[2021-11-01] MEDS ORDERED: bisacodyL 10 MG SUPP PR ONE (08:00)
[2021-11-01] MEDS ORDERED: LACTULOSE SYRUP 30 GM/45 ML UDP PO ONE (08:00)
[2021-11-01] MEDS: APIXABAN 5 MG TABLET PO SCH ×2 (08:11→20:54)
[2021-11-01] MEDS ORDERED: NON-FORMULARY MEDICATION (Iron,Carbonyl-Vitamin C [Vitron-C] 65 mg iron- 125 mg Tablet,Del PO SCH (09:00)
--- NOTE | 2021-11-01 12:02 | XRay Report ---
KUB CLINICAL HISTORY: Constipation. Ileus. FINDINGS: 3 AP supine abdominal radiographs are compared to study dated 10/31/2021 and correlated with abdominal CT dated 03/25/2019. Excreted IV contrast fills the bladder. There is gaseous distention of the small bowel and colon which is similar appearance to yesterday. Mild fecal retention is seen thr oughout the colon. No evidence of intraperitoneal free air is seen on the supine images. Extensive me sh material projects over the abdomen. There are no abnormal abdominal calcifications. The skeletal s tructures are osteopenic and appear intact. There is advanced lumbosacral spondylosis and scoliosis w ith evidence of previous lumbosacral fusion surgery. IMPRESSION: 1. Gaseous distention of the small bowel and colon is similar to previous and favors ileus. Correlate clinically for evidence of bowel obstruction. 2. Mild fecal retention is seen throughout the colon. Electronically signed by: Osmany George M.D. 11/01/2021 12:00 PM
--- NOTE | 2021-11-01 12:41 | Electrocardiogram Report ---
Test Reason : Blood Pressure : / mmHG Vent. Rate : 080 BPM Atrial Rate : 080 BPM P-R Int : 166 ms QRS Dur : 092 ms QT Int : 408 ms P-R-T Axes : 026 -01 022 degrees QTc Int : 470 ms Normal sinus rhythm Minimal voltage criteria for LVH, may be normal variant Borderline ECG When compared with ECG of 25-MAR-2019 06:53, No significant change was found Confirmed by Aaron Dunbar ([id number]) on 11/01/2021 12:41:20 PM Referred By: REFERRED SELF Confirmed By:Aaron Dunbar
--- NOTE | 2021-11-01 13:37 | Hospitalist Progress Note ---
Date of Service November 01, 2021 Assessment & Plan (1) Dizziness: Plan: Present on admission with dizziness and constipation need to r/o CVA CTA head/Neck showed no significant stenosis, occlusion, or aneurysm within the [place] of [place]. No significant change in the 50% stenosis within the proximal right internal carotid artery due to the atherosclerotic plaque. CT head showed No acute intracranial abnormality. No focal deficit on exam, but pt is very sleepy that might be due to the gabapentin Continue to feel dizzy that similar with his prior stroke Will get MRI head without contrast Will discontinue gabapentin Continue home meds Plavix and eliquis Continue monitor closely Fever Unknown origin Tmax above 39 CXR showed no Pneumonia Procalcitonin and WBC normal Blood cx pending Currently on IV rocephin Will add Doxycycline for now Constipation KUB on admission showed moderate well-formed stool seen throughout the colon.Mildly dilated gas-filled loops of large and small bowel seen throughout the abdomen. Repeat KUB showed gaseous distention of the small bowel and colon is similar to previous and favors ileus. Mild fecal retention is seen throughout the colon. Received Lactulose Pt had a profuse diarrhea +FOBT Hgb stable Had an episode of dark joseph after lactulose Will consult GI Monitor closely since pt is on eliquis and plavix Will check H/H later Acute kidney injury on chronic kidney disease, stage III: Baseline creatinine of 1.6, creatinine 2 on admission Creatinine 1.9 today Continue monitor BMP History of hyperlipidemia. Continue statin. History of CVA: Continue statin, Plavix and Eliquis. Gout. Continue allopurinol. Hypertension. Continue amlodipine, metoprolol. History of questionable AFib. rate control Continue metoprolol and Eliquis. History of abdominal aortic aneurysm status post repair. Stable Alcohol use Daughter said that he only drinks 1 to 2 beers daily No history of alcohol withdrawal Will discontinue Gabapentin due to the drowsiness Will monitor closely for sign of alcohol withdrawal Counseling on alcohol cessation DVT prophylaxis on Eliquis. Admission and Anticipated Discharge Date Admission Date: October 31, 2021 Subjective Pt was seen and examined for dizziness and constipation Lying in bed with no acute distress with and daughter at bedside Pt had a large episodes of diarrhea all over the floor He was given Lactulose this morning for constipation this morning Pt is very sleepy this morning. He received a loading dose of Gabapentin for alcohol abuse Daughter said that he only drink 1 to 2 beers a day She said that pt sometimes spend a couple day with no drinking and he does not showed any side of alcohol withdrawal Daughter said after his last stroke, he was in rehab for weeks with no alcohol withdrawal Denies any chest pain, palpitation, dizziness and sob Review of Systems Review of Systems: All systems reviewed & are unremarkable except as noted in Subjective Physical Exam Physical Exam: General- No acute distress Head- atraumatic Eyes- PERRL, EOMI, ENT- oropharynx clear Neck- supple, no JVD Lungs- clear to auscultation Heart- regular rhythm; no murmur Abdomen- normal bowel sounds, soft, nontender Extremities- no calf tenderness Neuro- alert, oriented, PERRL, EOMI; no facial palsy; no dysarthria, +failed finger to nose Skin- warm & dry Results & Data Results & Data ([facility]) Vital Signs (Past 12 Hours) Vital Signs Temp Pulse Pulse Resp BP BP Pulse Ox 11/01/21 11:08 37.8 C H 84 20 95/59 L 91 11/01/21 08:03 39.4 C H 97 H 20 126/69 92 11/01/21 07:17 85 11/01/21 02:51 37.7 C H 75 18 120/73 94 O2 Del Method O2 Flow Rate 11/01/21 11:08 Room Air 11/01/21 08:03 Room Air 11/01/21 07:17 11/01/21 02:51 Oxymask 3
[2021-11-01] MEDS: DOXYCYCLINE HYCLATE 100 MG CAP PO SCH ×2 (15:37→20:55)
--- NOTE | 2021-11-01 16:58 | Magnetic Resonance Report ---
MRI OF THE BRAIN WITHOUT IV CONTRAST CLINICAL HISTORY: Dizziness. COMPARISON STUDY: CT of the brain dated 10/31/2021. TECHNIQUE: MRI of the brain was performed utilizing various T1 and T2-weighted sequences in the axial , sagittal, and coronal planes. IV contrast was not administered for this examination. The examinatio n is modestly degraded by motion artifact. FINDINGS: Brain parenchyma: There is age-related involutional change noting moderate subcortical and periventri cular microangiopathic disease. There are foci of right frontal, right parietal, left occipital, and right cerebellar encephalomalacia consistent with remote infarcts. A chronic lacunar infarct is noted in the right caudate head. There is no hemorrhage or mass effect. There is no restricted diffusion t o suggest acute ischemia. Blair-white matter differentiation is preserved. No extra-axial fluid collec tion is seen. The cerebellar tonsils are normal in configuration. Ventricles, sulci, and cisterns: Prominent secondary to involutional change. Pituitary and sella: Unremarkable. Intracranial vasculature: Normal flow voids are maintained at the skull base. Orbits: The bony orbits are grossly intact. Orbital contents are normal in appearance. Sinuses and mastoids: Clear. Calvarium: Unremarkable. Cervical cord: Partially visualized cervical spinal cord is normal in morphology and signal intensity . IMPRESSION: Senescent change and remote infarcts as above with no acute intracranial abnormality iden tified. ACT 112: Negative or not required by law. Electronically signed by: Osmany George M.D. 11/01/2021 4:56 PM
[2021-11-01 17:44] LABS: Hematocrit (blood only) 37.4 % (40.1-51.0); Hemoglobin 11.9 g/dl (14.0-18.0)
[2021-11-01] MEDS: ATORVASTATIN 40 MG TAB PO SCH (20:54)
[2021-11-02] MEDS: cefTRIAXone SODIUM 2,000 MG in DEXTROSE 5% 50 ML IV SCH (00:36)
[2021-11-02 08:22] LABS: BUN Creatinine Ratio 13.4 (10-20); Calcium 8.2 mg/dl (8.5-10.1); Creatinine Clr Calc Pharmacy 28.9 ml/min; Est GFR (African American) 28.9 ml/min; Est GFR (Non-African American) 24.9 ml/min; Potassium 4.2 mmol/L (3.5-5.1)
[2021-11-02 08:37] LABS: Hemoglobin 11.8 g/dl (14.0-18.0); Mean Corpuscular Hemoglobin 33.1 pg (25.0-34.0); Mean Corpuscular Hgb Conc 31.9 g/dL (32.0-36.0); Mean Corpuscular Volume 103.9 fL (80.0-100.0); RDW Coefficient of Variation 14.3 % (11.5-14.5); RDW Standard Deviation 55.3 fL (36.4-46.3); Red Blood Count 3.56 M/uL (4.63-6.08); White Blood Count 6.91 K/ul (4.8-10.8)
--- NOTE | 2021-11-02 09:56 | Gastrointestinal Consultation ---
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 HGB stable, BUN/CREAT elevated, KUB ? ileus Clear liquids only today Daily KUB Bowel regimen Trend H&H Monitor and document GI output PO PPI BID NPO after midnight Thank you for allowing us to participate in the care of this patient. Please call with any acute changes, questions or concerns. Please see addendum below with additional recommendation from my supervising physician. Supervising Physician Co-Signing Physician Notes I have seen and examined the patient with YARA Braxton whose note reflects our findings and plan. H/H is stable. Patietn denies any abd pain. Imaging reviewed. Agree with BID PO PPI. Repeat abd imaging in the the AM. Will decide pending those results whether EGD to be considered tomorrow. 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 Pt was seen and evaluated, chart reviewed. Notes from GI standpoint. He suggests chronic, black stools on PO iron. Denies abd pain, nausea, vomiting. No GERD or dysphagia. Suggests he moves his bowels daily. Dark stools but no BRBPR. No fever, chills, CP. He endorses SOB and dizziness. KUB 2021: Gaseous distention of the small bowel and colon is similar to previous and favors ileus. Correlate clinically for evidence of bowel obstruction.Mild fecal retention is seen throughout the colon. Colonoscopy 2020: The examined portion of the ileum was normal. - One 6 mm polyp in the transverse colon, removed with a cold snare. Resected and retrieved. - Diverticulosis in the sigmoid colon. - Non-bleeding internal hemorrhoids. Allergies Allergy/AdvReac Type Severity Reaction Status Date / Time RUBENS Inhibitors AdvReac Intermediate DROPS Verified 10/31/21 17:10 BLOOD PRESSURE lisinopril AdvReac Intermediate DROPS Verified 10/31/21 17:10 BLOOD PRESSURE Home Medications Medication Instructions Recorded Confirmed Type atorvastatin 80 mg tablet 80 mg PO QPM 03/25/19 10/31/21 History clopidogrel 75 mg tablet 75 mg PO QAM 03/25/19 10/31/21 History fluticasone propionate 50 2 spray intranasal DAILY PRN 03/25/19 10/31/21 History mcg/actuation nasal Congestion spray,suspension cholecalciferol (vitamin D3) 50 2,000 unit PO QAM 06/10/20 10/31/21 History mcg (2,000 unit) capsule (D3-2000) triamcinolone acetonide 0.1 % 1 applic topical BID PRN flare ups 06/10/20 10/31/21 History topical ointment apixaban 5 mg tablet (Eliquis) 5 mg PO BID #60 tabs 06/15/20 10/31/21 Rx amlodipine 2.5 mg tablet 2.5 mg PO QAM 12/30/20 10/31/21 History iron,carbonyl 65 mg-vitamin C 125 1 tab PO DAILY 12/30/20 10/31/21 History mg tablet,delayed release (Vitron-C) albuterol sulfate 90 mcg/actuation 2 puff inhalation QID PRN Wheezing 10/31/21 10/31/21 History aerosol inhaler allopurinol 300 mg tablet 300 mg PO DAILY 10/31/21 10/31/21 History metoprolol tartrate 25 mg tablet 12.5 mg PO BID 10/31/21 10/31/21 History Patient History Medical History CKD (chronic kidney disease), stage III PT DENIES History of GI bleed Hx of gout Hx SBO Hyperlipidemia Hypertension Sleep apnea CPAP Stroke X 2 (LAST EVENT 05/2020) CONT. TO HAVE SLIGHT BALANCE ISSUES Surgical History History of lumbar surgery 1999 History of tonsillectomy History of tooth extraction Hx of colonoscopy Hx of hernia repair lysis of adhesions, incisional hernia repair laparoscopically 01/28/2010 at [facility] - Dr Desouza S/P AAA repair 01/13/2009 - Dr Suazo ([facility] YEARLY AT [facility]) Family History Other AAA (abdominal aortic aneurysm) Hypertension No family history of adverse response to anesthesia Social History Smoking Status: Former smoker Tobacco Type: Cigarettes Cigarettes Per Day: Former cigarette. Quit 1998; Smoking End Date: 2004; Second Hand Exposure: Yes ( A CHILD); Hx Alcohol Use: Yes Alcohol type: beer and wine Alcohol type Comment: 3 beers a day Hx Substance Use: No Preferred Language: Lao Communication Ability: Effective Delivery Sales Worker Required: No Beliefs That Will Affect Care: None marital status: Current Living Situation: Spouse current occupational status: employed Other Information That Helps Us Care for You: No Feels Safe at Home: Yes Safety Concerns: Feels Safe At This Time Assistive Devices: Walker Review of Systems Review of Systems: All systems reviewed & are unremarkable except as noted in HPI & below Physical Exam Constitutional: WD/WN, vitals as above Respiratory: normal respiratory effort, lungs clear to auscultation Cardiovascular: RRR, no murmur, no edema Gastrointestinal (Abdomen): normal bowel sounds, soft, nontender, no hepatosplenomegaly Skin: no rashes, warm and dry Results & Data ([facility]) Vital Signs (Past 12 Hours) Vital Signs Temp Pulse Pulse Resp BP BP Pulse Ox 11/02/21 08:07 72 11/02/21 07:46 37.2 C 67 20 160/86 H 96 11/02/21 03:32 36.6 C 63 18 112/68 91 11/02/21 01:27 81 11/02/21 00:46 11/01/21 22:43 38.6 C H 75 18 128/67 96 O2 Del Method O2 Flow Rate 11/02/21 08:07 11/02/21 07:46 Oxymask 3 11/02/21 03:32 Room Air 11/02/21 01:27 11/02/21 00:46 Oxymask 3 11/01/21 22:43 Oxymask 3 Laboratory Results 11/02/21 11/02/21 11/02/21 Range/Units 08:33 07:18 07:18 WBC 6.91 (4.8-10.8) K/ul RBC 3.56 L (4.63-6.08) M/uL Hgb 11.8 L (14.0-18.0) g/dl Hct 37.0 L (40.1-51.0) % MCV 103.9 H (80.0-100.0) fL MCH 33.1 (25.0-34.0) pg MCHC 31.9 L (32.0-36.0) g/dL RDW Std Deviation 55.3 H (36.4-46.3) fL RDW Coeff of Chaka 14.3 (11.5-14.5) % Plt Count (130-400) K/uL MPV (9.4-12.4) fL Plt Count ,Citrate Pending Sodium 135 L (136-145) mmol/L Potassium 4.2 (3.5-5.1) mmol/L Chloride 103 (98-107) mmol/L Carbon Dioxide 25 (21-32) mmol/L Anion Gap 7 (3-11) BUN 33 H (6-23) mg/dl Creatinine 2.47 H D (0.6-1.4) mg/dl Est Cr Clr Drug Dosing 28.9 ml/min Est GFR ( Amer) 28.9 ml/min Est GFR (Non-Af Amer) 24.9 ml/min BUN/Creatinine Ratio 13.4 (10-20) Glucose 96 (70-99(Fasting)) mg/dl Calcium 8.2 L (8.5-10.1) mg/dl Stool Occult Bld Scrn (Negative) 11/01/21 11/01/21 Range/Units 17:34 12:11 WBC (4.8-10.8) K/ul RBC (4.63-6.08) M/uL Hgb 11.9 L (14.0-18.0) g/dl Hct 37.4 L (40.1-51.0) % MCV (80.0-100.0) fL MCH (25.0-34.0) pg MCHC (32.0-36.0) g/dL RDW Std Deviation (36.4-46.3) fL RDW Coeff of Chaka (11.5-14.5) % Plt Count (130-400) K/uL MPV (9.4-12.4) fL Plt Count ,Citrate Sodium (136-145) mmol/L Potassium (3.5-5.1) mmol/L Chloride (98-107) mmol/L Carbon Dioxide (21-32) mmol/L Anion Gap (3-11) BUN (6-23) mg/dl Creatinine (0.6-1.4) mg/dl Est Cr Clr Drug Dosing ml/min Est GFR ( Amer) ml/min Est GFR (Non-Af Amer) ml/min BUN/Creatinine Ratio (10-20) Glucose (70-99(Fasting)) mg/dl Calcium (8.5-10.1) mg/dl Stool Occult Bld Scrn Positive A (Negative)
[2021-11-02] MEDS: FERROUS SULFATE 325 MG TAB PO SCH (10:00)
[2021-11-02] MEDS: THIAMINE HCL 100 MG TAB PO SCH (10:00)
[2021-11-02] MEDS: FOLIC ACID 1 MG TAB PO SCH (10:00)
[2021-11-02] MEDS: CHOLECALCIFEROL 1,000 UNITS 25 MCG TAB PO SCH (10:00)
[2021-11-02] MEDS: CLOPIDOGREL BISULFATE 75 MG TAB PO SCH (10:00)
[2021-11-02] MEDS: DOXYCYCLINE HYCLATE 100 MG CAP PO SCH ×2 (10:00→20:21)
[2021-11-02] MEDS: ASCORBIC ACID 500 MG TAB PO SCH (10:00)
[2021-11-02] MEDS: allopurinoL 100 MG TAB PO SCH (10:01)
[2021-11-02] MEDS: APIXABAN 5 MG TABLET PO SCH (10:01)
[2021-11-02] MEDS: amLODIPine BESYLATE 5 MG TAB PO SCH (10:01)
[2021-11-02] MEDS: METOPROLOL TARTRATE 25 MG TAB PO SCH ×2 (10:04→20:21)
[2021-11-02] MEDS: SODIUM CHLORIDE 0.9% 1000ML 1,000 ML IV SCH (10:15)
--- NOTE | 2021-11-02 11:48 | Nephrology Consultation ---
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 follows w/ Dr Azevedo in CKD clinic for 1.5 gm proteinuric CKD 3B w/ baseline creatinine 1.9-2 and recent late September OP creatinine of 2.4. Also w/ hx of MGUS. had IV contrast and labile bp on presentation which may contribute to abrupt worsening today. at risk to have renal function worsen/more MAGDALENO with IV contrast exposure, NPO status. high risk for renal / CKD progression at baseline. chemistries and volume status acceptable; avoid diuret ics/nsaids/other nephrotoxins -f/u pending cultures -daily bmp -no diuretics -agree w/ gentle hydration w/ NS (2) Labile blood pressure: SBP 180s on presentation for most of last evening and 120s today; -cont NS as resp status tolerates -hold amlodipine tomorrow -cont BB for now History of Present Illness Reason for Consultation: MAGDALENO on CKD Requesting Physician: Dr South Attending Physician: Andrew South MD History of Present Illness 71 y/o M whom I'm asked to see for MAGDALENO on CKD was admitted yesterday for F from possible UTI and MAGDALENO on CKD after presenting with lightheadedness and malaise and 2 days' constipation. He was markedly hypertensive on presentation with SBP 180s for several hours, improved to 120-150s today. He was febrile yesterday to as high as 39.4; last F at 2300 yesterday. PMH includes CKD 3B w/ 1.5 gm proteinuria, L renal artery stenosis and L common iliac artery aneurysm with nonruptured AAA s/p repair, HTN, MGUS / IgM lambda paraproteinemia follows w/ Dr Aleksandr Snyder, gout, hx of occipital and cerebellar strokes w/ result R eye blindness but no residual weakness, known PFO, chronic respiratory failure/GINNY on home 02 hs and on CPAP, reformed tobacco abuse (47 PYHx), GERD. His creatinine was 2 on presentation, up to 2.5 today. He had IV contrast at admission to evaluate head/neck vasculature. Of note in late September he had OP labs w/ sCreat 2.4. He follows w/ Dr Azevedo in CKD clinic, last seen May 2021. GI is evaluating the pt d/t heme + stool. The pt denies decreased po intake. No dyspnea or cough currently. He denies melena, hematochezia, n/v, abdominal pain. no gross hematuria or dysuria. Allergies Allergy/AdvReac Type Severity Reaction Status Date / Time RUBENS Inhibitors AdvReac Intermediate DROPS Verified 10/31/21 17:10 BLOOD PRESSURE lisinopril AdvReac Intermediate DROPS Verified 10/31/21 17:10 BLOOD PRESSURE Home Medications Medication Instructions Recorded Confirmed Type atorvastatin 80 mg tablet 80 mg PO QPM 03/25/19 10/31/21 History clopidogrel 75 mg tablet 75 mg PO QAM 03/25/19 10/31/21 History fluticasone propionate 50 2 spray intranasal DAILY PRN 03/25/19 10/31/21 History mcg/actuation nasal Congestion spray,suspension cholecalciferol (vitamin D3) 50 2,000 unit PO QAM 06/10/20 10/31/21 History mcg (2,000 unit) capsule (D3-2000) triamcinolone acetonide 0.1 % 1 applic topical BID PRN flare ups 06/10/20 10/31/21 History topical ointment apixaban 5 mg tablet (Eliquis) 5 mg PO BID #60 tabs 06/15/20 10/31/21 Rx amlodipine 2.5 mg tablet 2.5 mg PO QAM 12/30/20 10/31/21 History iron,carbonyl 65 mg-vitamin C 125 1 tab PO DAILY 12/30/20 10/31/21 History mg tablet,delayed release (Vitron-C) albuterol sulfate 90 mcg/actuation 2 puff inhalation QID PRN Wheezing 10/31/21 10/31/21 History aerosol inhaler allopurinol 300 mg tablet 300 mg PO DAILY 10/31/21 10/31/21 History metoprolol tartrate 25 mg tablet 12.5 mg PO BID 10/31/21 10/31/21 History Patient History Medical History CKD (chronic kidney disease), stage III PT DENIES History of GI bleed Hx of gout Hx SBO Hyperlipidemia Hypertension Sleep apnea CPAP Stroke X 2 (LAST EVENT 05/2020) CONT. TO HAVE SLIGHT BALANCE ISSUES Surgical History History of lumbar surgery 1999 History of tonsillectomy History of tooth extraction Hx of colonoscopy Hx of hernia repair lysis of adhesions, incisional hernia repair laparoscopically 01/28/2010 at [facility] - Dr Desouza S/P AAA repair 01/13/2009 - Dr Suazo ([facility] YEARLY AT [facility]) Family History Other AAA (abdominal aortic aneurysm) Hypertension No family history of adverse response to anesthesia Social History Smoking Status: Former smoker Tobacco Type: Cigarettes Cigarettes Per Day: Former cigarette. Quit 1998; Smoking End Date: 2004; Second Hand Exposure: Yes ( A CHILD); Hx Alcohol Use: Yes Alcohol type: beer and wine Alcohol type Comment: 3 beers a day Hx Substance Use: No Preferred Language: [place] Communication Ability: Effective Loan Counselor Required: No Beliefs That Will Affect Care: None marital status: Current Living Situation: Spouse current occupational status: employed Other Information That Helps Us Care for You: No Feels Safe at Home: Yes Safety Concerns: Feels Safe At This Time Assistive Devices: Walker Review of Systems Review of Systems: All systems reviewed & are unremarkable except as noted in HPI & below Results & Data ([facility]) Vital Signs (Past 12 Hours) Vital Signs Temp Pulse Pulse Resp BP Pulse Ox O2 Del Method 11/02/21 09:57 123/74 11/02/21 08:07 72 11/02/21 07:46 37.2 C 67 20 160/86 H 96 Oxymask 11/02/21 03:32 36.6 C 63 18 112/68 91 Room Air 11/02/21 01:27 81 11/02/21 00:46 Oxymask O2 Flow Rate 11/02/21 09:57 11/02/21 08:07 11/02/21 07:46 3 11/02/21 03:32 11/02/21 01:27 11/02/21 00:46 3 Laboratory Results 11/02/21 07:18 11/02/21 07:18 urine and blood cxs negative/NGTD Diagnostic Findings brain mri IMPRESSION: Senescent change and remote infarcts as above with no acute intracranial abnormality identified. KUB 1. Gaseous distention of the small bowel and colon is similar to previous and favors ileus. Correlate clinically for evidence of bowel obstruction. 2. Mild fecal retention is seen throughout the colon. Head/neck CTA 1. No significant stenosis, occlusion, or aneurysm within the [place] of [place]. 2. No significant change in the 50% stenosis within the proximal right internal carotid artery due to the atherosclerotic plaque. 3. 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
--- NOTE | 2021-11-02 13:19 | Hospitalist Progress Note ---
Date of Service November 02, 2021 Assessment & Plan (1) Dizziness: Plan: Present on admission with dizziness and constipation need to r/o CVA CTA head/Neck showed no significant stenosis, occlusion, or aneurysm within the [place] of [place]. No significant change in the 50% stenosis within the proximal right internal carotid artery due to the atherosclerotic plaque. CT head showed No acute intracranial abnormality. No focal deficit on exam, but pt is very sleepy that might be due to the gabapentin Continue to feel dizzy that similar with his prior stroke MRI head showed no acute intracranial abnormality Currently on home meds Plavix and eliquis Will hold Eliquis today for the +FOBT, Plavix given today Continue monitor closely Fever Unknown origin Temp last night 38.6 CXR showed no Pneumonia Procalcitonin and WBC normal Blood cx and urine cx no growth Continue IV Rocephin and doxycycline Constipation KUB on admission showed moderate well-formed stool seen throughout the colon.Mildly dilated gas-filled loops of large and small bowel seen throughout the abdomen. Repeat KUB showed gaseous distention of the small bowel and colon is similar to previous and favors ileus. Mild fecal retention is seen throughout the colon. Received Lactulose Pt had a profuse diarrhea stable +FOBT Hgb stable 11.8 Had an episode of dark stool after lactulose GI on board Plan for EGD tomorrow Will hold eliquis and plavix for EGD, then resume if no active bleeding Continue monitor H/H Acute kidney injury on chronic kidney disease, stage III: Baseline creatinine of 1.6, creatinine 2 on admission Possible due to IV contrast Creatinine worsening at 2.4 today Nephrology on board Gentle hydration added Will avoid nephrotoxic agents Continue monitor BMP History of hyperlipidemia. Continue statin. History of CVA: home meds statin, Plavix and Eliquis. Hold Plavix, Eliquis for the EGD in am Gout. Continue allopurinol. Hypertension. Continue amlodipine, metoprolol. History of questionable AFib. rate control Currently metoprolol and Eliquis. Will hold Eliquis today History of abdominal aortic aneurysm status post repair. Stable Alcohol use Daughter said that he only drinks 1 to 2 beers daily No history of alcohol withdrawal Gabapentin discontinued due to the drowsiness Will monitor closely for sign of alcohol withdrawal Counseling on alcohol cessation DVT prophylaxis on Eliquis, will hold for the EGD due to +FOBT SCD adding Admission and Anticipated Discharge Date Admission Date: October 31, 2021 Subjective Pt was seen and examined for follow up dizziness, +FOBT Lying in bed with no acute distress Pt said that he feels ok He said that he had a bowel movement and not sure if it was dark Denies any chest pain, palpitation, dizziness and sob Review of Systems Review of Systems: All systems reviewed & are unremarkable except as noted in Subjective Physical Exam Physical Exam: General- No acute distress Head- atraumatic Eyes- PERRL, EOMI, ENT- oropharynx clear Neck- supple, no JVD Lungs- clear to auscultation Heart- regular rhythm; no murmur Abdomen- normal bowel sounds, soft, nontender Extremities- no calf tenderness Neuro- alert, oriented, PERRL, EOMI; no facial palsy; no dysarthria, +failed finger to nose Skin- warm & dry Results & Data Results & Data ([facility]) Vital Signs (Past 12 Hours) Vital Signs Temp Pulse Pulse Resp BP Pulse Ox O2 Del Method 11/02/21 12:01 37.0 C 68 20 141/80 H 94 Room Air 11/02/21 09:57 123/74 11/02/21 08:07 72 11/02/21 07:46 37.2 C 67 20 160/86 H 96 Oxymask 11/02/21 03:32 36.6 C 63 18 112/68 91 Room Air 11/02/21 01:27 81 O2 Flow Rate 11/02/21 12:01 11/02/21 09:57 11/02/21 08:07 11/02/21 07:46 3 11/02/21 03:32 11/02/21 01:27
[2021-11-02] MEDS: ATORVASTATIN 40 MG TAB PO SCH (20:21)
[2021-11-03] MEDS: cefTRIAXone SODIUM 2,000 MG in DEXTROSE 5% 50 ML IV SCH (00:06)
[2021-11-03] MEDS ORDERED: GABAPENTIN 600 MG TAB PO SCH (00:45)
[2021-11-03] MEDS: SODIUM CHLORIDE 0.9% 1000ML 1,000 ML IV SCH ×2 (02:48→17:34)
[2021-11-03 07:20] LABS: BUN Creatinine Ratio 15.5 (10-20); Calcium 8.3 mg/dl (8.5-10.1); Creatinine Clr Calc Pharmacy 35.8 ml/min; Est GFR (African American) 37.3 ml/min; Est GFR (Non-African American) 32.2 ml/min; Phosphorus 3.1 mg/dl (2.5-4.9); Potassium 3.9 mmol/L (3.5-5.1)
[2021-11-03 07:32] LABS: Hematocrit (blood only) 36.7 % (40.1-51.0); Hemoglobin 11.7 g/dl (14.0-18.0); Mean Corpuscular Hemoglobin 32.9 pg (25.0-34.0); Mean Corpuscular Hgb Conc 31.9 g/dL (32.0-36.0); Mean Corpuscular Volume 103.1 fL (80.0-100.0); RDW Standard Deviation 53.8 fL (36.4-46.3); Red Blood Count 3.56 M/uL (4.63-6.08); White Blood Count 6.07 K/ul (4.8-10.8)
[2021-11-03 07:34] LABS: Platelet Estimate Normal (Normal)
[2021-11-03] MEDS: DOXYCYCLINE HYCLATE 100 MG CAP PO SCH ×2 (08:22→20:16)
[2021-11-03] MEDS: METOPROLOL TARTRATE 25 MG TAB PO SCH ×2 (08:22→20:16)
[2021-11-03] MEDS: FOLIC ACID 1 MG TAB PO SCH (08:22)
[2021-11-03] MEDS: allopurinoL 100 MG TAB PO SCH (08:23)
[2021-11-03] MEDS: FERROUS SULFATE 325 MG TAB PO SCH (08:24)
[2021-11-03] MEDS: ASCORBIC ACID 500 MG TAB PO SCH (08:24)
[2021-11-03] MEDS: THIAMINE HCL 100 MG TAB PO SCH (08:24)
[2021-11-03] MEDS: CHOLECALCIFEROL 1,000 UNITS 25 MCG TAB PO SCH (08:24)
--- NOTE | 2021-11-03 09:17 | Gastroenterology Progress Note ---
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 HGB stable, BUN/CREAT elevated, KUB ? ileus Please keep NPO In light of stable HGB, will discuss EGD timing with attending Daily KUB Bowel regimen Trend H&H Monitor and document GI output PO PPI BID Admission and Anticipated Discharge Date Admission Date: October 31, 2021 Supervising Physician Co-Signing Physician Notes Saw and evaluated the patient. He did have a prior colonoscopy performed less than 1 year ago notable for diverticulosis and internal hemorrhoids. He does have heme positive stools but his negative for evidence of melena. We could certainly provide further evaluation with upper endoscopy Subjective Pt was seen and evaluated, chart reviewed. Feeling well. Notes no BM today but had dark stool yesterday. HGB has been stable since admission No BUN elevation Review of Systems Review of Systems: All systems reviewed & are unremarkable except as noted in HPI & below Physical Exam Constitutional: WD/WN, vitals as above Neck: trachea midline, no thyromegaly Respiratory: normal respiratory effort, lungs clear to auscultation Gastrointestinal (Abdomen): normal bowel sounds, soft, nontender, no hepatosplenomegaly Skin: no rashes, warm and dry Results & Data ([facility]) Vital Signs (Past 12 Hours) Vital Signs Temp Pulse Pulse Resp BP Pulse Ox O2 Del Method 11/03/21 08:31 36.9 C 67 20 146/77 H 97 Nasal Cannula 11/03/21 03:00 36.8 C 70 24 149/77 H 97 Nasal Cannula 11/02/21 23:00 84 11/02/21 22:34 37.2 C 76 20 157/78 H 93 Nasal Cannula O2 Flow Rate 11/03/21 08:31 3 11/03/21 03:00 2 11/02/21 23:00 11/02/21 22:34 3 Laboratory Results 11/03/21 11/03/21 11/03/21 Range/Units 08:26 06:16 06:16 WBC (4.8-10.8) K/ul RBC (4.63-6.08) M/uL Hgb (14.0-18.0) g/dl Hct (40.1-51.0) % MCV (80.0-100.0) fL MCH (25.0-34.0) pg MCHC (32.0-36.0) g/dL RDW Std Deviation (36.4-46.3) fL RDW Coeff of Chaka (11.5-14.5) % Plt Count (130-400) K/uL Platelet Estimate (Normal) Plt Count ,Citrate Pending (130-400) K/uL Sodium 137 (136-145) mmol/L Potassium 3.9 (3.5-5.1) mmol/L Chloride 105 (98-107) mmol/L Carbon Dioxide 25 (21-32) mmol/L Anion Gap 7 (3-11) BUN 31 H (6-23) mg/dl Creatinine 2.00 H D (0.6-1.4) mg/dl Est Cr Clr Drug Dosing 35.8 ml/min Est GFR ( Amer) 37.3 ml/min Est GFR (Non-Af Amer) 32.2 ml/min BUN/Creatinine Ratio 15.5 (10-20) Glucose 98 (70-99(Fasting)) mg/dl Calcium 8.3 L (8.5-10.1) mg/dl Phosphorus 3.1 (2.5-4.9) mg/dl Magnesium 2.0 (1.7-2.4) mg/dl Procalcitonin 2.23 H (0-0.5) ng/ml 11/03/21 11/02/21 Range/Units 06:16 08:33 WBC 6.07 (4.8-10.8) K/ul RBC 3.56 L (4.63-6.08) M/uL Hgb 11.7 L (14.0-18.0) g/dl Hct 36.7 L (40.1-51.0) % MCV 103.1 H (80.0-100.0) fL MCH 32.9 (25.0-34.0) pg MCHC 31.9 L (32.0-36.0) g/dL RDW Std Deviation 53.8 H (36.4-46.3) fL RDW Coeff of Chaka 14.0 (11.5-14.5) % Plt Count (130-400) K/uL Platelet Estimate Normal (Normal) Plt Count ,Citrate 131 (130-400) K/uL Sodium (136-145) mmol/L Potassium (3.5-5.1) mmol/L Chloride (98-107) mmol/L Carbon Dioxide (21-32) mmol/L Anion Gap (3-11) BUN (6-23) mg/dl Creatinine (0.6-1.4) mg/dl Est Cr Clr Drug Dosing ml/min Est GFR ( Amer) ml/min Est GFR (Non-Af Amer) ml/min BUN/Creatinine Ratio (10-20) Glucose (70-99(Fasting)) mg/dl Calcium (8.5-10.1) mg/dl Phosphorus (2.5-4.9) mg/dl Magnesium (1.7-2.4) mg/dl Procalcitonin (0-0.5) ng/ml (1) GI bleed GI bleed type/associated pathology: unspecified gastrointestinal hemorrhage type Qualified Code(s): K92.2 - Gastrointestinal hemorrhage, unspecified
--- NOTE | 2021-11-03 09:29 | Nephrology Progress Note ---
Date of Service November 03, 2021 Assessment & Plan (1) Acute kidney injury superimposed on chronic kidney disease: Plan: improving stage 1 MAGADLENO on proteinuric CKD 3B. follows w/ Dr Azevedo in CKD clinic for 1.5 gm proteinuric CKD 3B w/ baseline creatinine 1.9-2 and recent late September OP creatinine of 2.4. Also w/ hx of MGUS. had IV contrast and labile bp on presentation which may contribute to abrupt worsening 11/02. was at risk to have renal function worsen/more MAGDALENO with IV contrast exposure, NPO status but for now he is back to baseline. high risk for renal / CKD progression even w/o this acute illness. chemistries and volume status acceptable; avoid diuretics/nsaids/other nephrotoxins -f/u pending cultures > NGTD -daily bmp -no diuretics WILL SIGN OFF Keep already scheduled November appt w/ Dr Azevedo (2) Labile blood pressure: Plan: SBP 180s on presentation for most of 11/01 evening -hold amlodipine for now but resume at d/c -cont BB for now Admission and Anticipated Discharge Date Admission Date: October 31, 2021 Subjective no further dark stools; GI scope cx'd b/c no availability; no sob, no pain, no edema; ate well Review of Systems Review of Systems: All systems reviewed & are unremarkable except as noted in Subjective Physical Exam Constitutional: well developed and well nourished on RA Eyes: EOM intact bilaterally ENMT: Ears: no external ear abnormality Nose: no external nose abnormality Mouth: + dry oral mucous membranes Neck: no nuchal rigidity Respiratory: normal respiratory effort Auscultation: + diminished lung sounds Cardiovascular: RRR, no murmur, no edema Gastrointestinal (Abdomen): Inspection/Auscultation: normal bowel sounds Percussion/Palpation: abdomen soft; abdomen nontender Musculoskeletal: Extremities: strength 5/5 throughout Skin: no rashes, warm and dry Neurologic: jeronimo, fluent speech, no tremor Psychiatric: Orientation: oriented x 3 Results & Data ([facility]) Vital Signs (Past 12 Hours) Vital Signs Temp Pulse Pulse Resp BP Pulse Ox O2 Del Method 11/03/21 08:31 36.9 C 67 20 146/77 H 97 Nasal Cannula 11/03/21 03:00 36.8 C 70 24 149/77 H 97 Nasal Cannula 11/02/21 23:00 84 11/02/21 22:34 37.2 C 76 20 157/78 H 93 Nasal Cannula O2 Flow Rate 11/03/21 08:31 3 11/03/21 03:00 2 11/02/21 23:00 11/02/21 22:34 3 Laboratory Results 11/03/21 06:16 11/03/21 06:16
--- NOTE | 2021-11-03 13:02 | XRay Report ---
KUB HISTORY: Possible ileus. follow up COMPARISON: KUB 11/01/2021. FINDINGS: Mildly distended gas-filled loops of large and small bowel have improved. This suggests a r esolving ileus. Moderate well-formed stool again noted within the colon. S-shaped scoliosis of the th oracolumbar spine. L5-S1 posterior fusion hardware again noted. Evidence for prior ventral hernia rep air. No renal calculi. No ureteral calculi. No pneumoperitoneum or pneumatosis. IMPRESSION: Interval improvement/resolution of the suspected ileus. ACT 112: Negative or not required by law. Electronically signed by: Angel Mak M.D. 11/03/2021 1:01 PM
[2021-11-03] MEDS: ATORVASTATIN 40 MG TAB PO SCH (20:16)
[2021-11-04] MEDS: cefTRIAXone SODIUM 2,000 MG in DEXTROSE 5% 50 ML IV SCH (00:28)
[2021-11-04 06:55] LABS: BUN Creatinine Ratio 14.1 (10-20); Calcium 8.2 mg/dl (8.5-10.1); Creatinine Clr Calc Pharmacy 43.9 ml/min; Est GFR (African American) 47.7 ml/min; Est GFR (Non-African American) 41.2 ml/min; Magnesium 1.9 mg/dl (1.7-2.4); Phosphorus 3.1 mg/dl (2.5-4.9); Potassium 3.9 mmol/L (3.5-5.1)
[2021-11-04 07:08] LABS: Hematocrit (blood only) 32.8 % (40.1-51.0); Hemoglobin 10.6 g/dl (14.0-18.0); Mean Corpuscular Hemoglobin 32.9 pg (25.0-34.0); Mean Corpuscular Hgb Conc 32.3 g/dL (32.0-36.0); Mean Corpuscular Volume 101.9 fL (80.0-100.0); RDW Coefficient of Variation 13.7 % (11.5-14.5); Red Blood Count 3.22 M/uL (4.63-6.08); White Blood Count 4.65 K/ul (4.8-10.8)
--- NOTE | 2021-11-04 08:04 | Hospitalist Progress Note ---
Date of Service November 03, 2021 Assessment & Plan (1) Dizziness: Plan: Present on admission with dizziness and constipation needed to r/o CVA CTA head/Neck showed no significant stenosis, occlusion, or aneurysm within the [place]. No significant change in the 50% stenosis within the proximal right internal carotid artery due to the atherosclerotic plaque. CT head showed No acute intracranial abnormality. No focal deficit on exam, but pt was very sleepy that might be due to the gabapentin Continued to feel dizzy - similar with his prior stroke MRI head showed no acute intracranial abnormality Currently on home meds Plavix and eliquis Held Eliquis for the +FOBT, Plavix given Continue monitor closely Fever Unknown origin last fever on 11/01 night CXR showed no Pneumonia Procalcitonin initially normal (10/31), repeat procal elevated (11/03), WBC normal Blood cx and urine cx no growth Continue IV Rocephin and doxycycline Constipation KUB on admission showed moderate well-formed stool seen throughout the colon.Mildly dilated gas-filled loops of large and small bowel seen throughout the abdomen. Repeat KUB showed gaseous distention of the small bowel and colon is similar to previous and favors ileus. Mild fecal retention is seen throughout the colon. Received Lactulose Pt had a profuse diarrhea stable KUB 11/03 - Interval improvement/resolution of the suspected ileus. +FOBT Hgb stable 11.7 Had an episode of dark stool after lactulose GI on board Plan for EGD inpt vs. outpt Will hold eliquis and plavix for EGD, then resume if no active bleeding Continue monitor H/H Acute kidney injury on chronic kidney disease, stage III: Baseline creatinine of 1.6, creatinine 2 on admission Possible due to IV contrast Creatinine worsening at 2.4, now down to 2 Nephrology following Gentle hydration added Will avoid nephrotoxic agents Continue monitor BMP History of hyperlipidemia. Continue statin. History of CVA: home meds statin, Plavix and Eliquis. Hold Plavix, Eliquis for the EGD in am Gout. Continue allopurinol. Hypertension. Continue amlodipine, metoprolol. History of questionable AFib. rate control Currently metoprolol and Eliquis. Will hold Eliquis today History of abdominal aortic aneurysm status post repair. Stable Alcohol use Daughter said that he only drinks 1 to 2 beers daily No history of alcohol withdrawal Gabapentin discontinued due to the drowsiness Will monitor closely for sign of alcohol withdrawal Counseling on alcohol cessation DVT prophylaxis on Eliquis, will hold for the EGD due to +FOBT SCDs Admission and Anticipated Discharge Date Admission Date: October 31, 2021 Subjective Pt was seen and examined for follow up dizziness, +FOBT Sitting up in bed with no acute distress Reports feeling well He said that he had a bowel movement and not sure if it was dark Denies any fevers, chills, chest pain, palpitation, shortness of breath, dizziness Daughter present at the bedside and updated Review of Systems Review of Systems: All systems reviewed & are unremarkable except as noted in Subjective Physical Exam Physical Exam: General- No acute distress Head- atraumatic Eyes- PERRL, EOMI, ENT- oropharynx clear Neck- supple, no JVD Lungs- clear to auscultation Heart- regular rhythm; no murmur Abdomen- normal bowel sounds, soft, nontender Extremities- no calf tenderness Neuro- alert, oriented, PERRL, EOMI; no facial palsy; no dysarthria,moves extremities Skin- warm & dry Results & Data Results & Data ([facility]) Vital Signs (Past 12 Hours) Vital Signs Temp Pulse Pulse Resp BP Pulse Ox O2 Del Method 11/03/21 22:17 62 11/03/21 23:35 Room Air, Nasal Cannula 11/03/21 22:42 36.7 C 62 20 148/70 H 95 Nasal Cannula O2 Flow Rate 11/04/21 07:36 3 11/04/21 02:50 3 11/03/21 22:17 11/03/21 23:35 2 11/03/21 22:42 3
--- NOTE | 2021-11-04 08:06 | Hospitalist Progress Note ---
Date of Service November 04, 2021 Assessment & Plan (1) Dizziness: Plan: Present on admission with dizziness and constipation needed to r/o CVA CTA head/Neck showed no significant stenosis, occlusion, or aneurysm within the [place]. No significant change in the 50% stenosis within the proximal right internal carotid artery due to the atherosclerotic plaque. CT head showed No acute intracranial abnormality. No focal deficit on exam, but pt was very sleepy that might be due to the gabapentin Continued to feel dizzy - similar with his prior stroke MRI head showed no acute intracranial abnormality Currently on home meds Plavix and eliquis Held Eliquis for the +FOBT, Plavix given Continue monitor closely Fever Unknown origin (? or secondary to ulcers) last fever on 11/01 night CXR showed no Pneumonia Procalcitonin initially normal (10/31), repeat procal elevated (11/03), WBC normal Blood cx and urine cx no growth Continued IV Rocephin and doxycycline Will DC on PO Augmentin, outpt follow up Constipation KUB on admission showed moderate well-formed stool seen throughout the colon.Mildly dilated gas-filled loops of large and small bowel seen throughout the abdomen. Repeat KUB showed gaseous distention of the small bowel and colon is similar to previous and favors ileus. Mild fecal retention is seen throughout the colon. Received Lactulose Pt had a profuse diarrhea stable KUB 11/03 - Interval improvement/resolution of the suspected ileus. Recommend MiraLAX daily, in order to have 1 soft stool daily +FOBT Hgb stable ~11 Had an episode of dark stool after lactulose GI consulted S/p EGD Findings: The examined esophagus was normal. Diffuse mild inflammation characterized by congestion (edema), erythema and granularity was found in the entire examined stomach. One non-obstructing non-bleeding superficial gastric ulcer with pigmented material was found on the lesser curvature of the gastric body. The lesion was 15 mm in largest dimension. The examined duodenum was normal. Impression: - Normal esophagus. - Gastritis. - Non-obstructing non-bleeding gastric ulcer with pigmented material. NSAID induced etiology. - Normal examined duodenum. - No specimens collected. Recommendation: - [facility]. - Advance diet as tolerated today. - No aspirin, ibuprofen, naproxen, or other non-steroidal anti-inflammatory drugs for 12 weeks then reduce to 20 mg per day. - Use Protonix (pantoprazole) 40 mg PO daily, then reduce to 20 mg per day. - Use sucralfate tablets 1 gram PO QID for 2 weeks. - Repeat upper endoscopy in 3 months to check healing. GI communication note Avoid nonsteroidals for 6 to 8 weeks Protonix 40 mg daily for 6 weeks then 20 mg daily thereafter Carafate 4 times daily for 2 weeks Repeat upper endoscopy in 3 months Held eliquis and plavix for EGD, then resume if no active bleeding Continue monitor H/H Acute kidney injury on chronic kidney disease, stage III: Baseline creatinine of 1.6, creatinine 2 on admission Possible due to IV contrast Creatinine worsening at 2.4, now down to 1.6 Nephrology following Gentle hydration added Will avoid nephrotoxic agents Continue monitor BMP History of hyperlipidemia. Continue statin. History of CVA: home meds statin, Plavix and Eliquis. Hold Plavix, Eliquis for the EGD in am Gout. Continue allopurinol. Hypertension. Continue amlodipine, metoprolol. History of questionable AFib. rate control Currently metoprolol and Eliquis. Hold Eliquis for EGD History of abdominal aortic aneurysm status post repair. Stable Alcohol use Daughter said that he only drinks 1 to 2 beers daily No history of alcohol withdrawal Gabapentin discontinued due to the drowsiness Will monitor closely for sign of alcohol withdrawal Counseling on alcohol cessation No signs of alcohol withdrawal DVT prophylaxis on Eliquis, will hold for the EGD due to +FOBT SCDs Admission and Anticipated Discharge Date Admission Date: October 31, 2021 Subjective Pt was seen and examined for follow up dizziness, +FOBT Sitting up in bed with no acute distress Reports feeling well Denies any fevers, chills, chest pain, palpitation, shortness of breath, dizziness Daughter present at the bedside and updated yesterday Patient underwent EGD today Review of Systems Review of Systems: All systems reviewed & are unremarkable except as noted in Subjective Physical Exam Physical Exam: General- No acute distress Head- atraumatic Eyes- PERRL, EOMI, ENT- oropharynx clear Neck- supple, no JVD Lungs- clear to auscultation Heart- regular rhythm; no murmur Abdomen- normal bowel sounds, soft, nontender Extremities- no calf tenderness Neuro- alert, oriented, PERRL, EOMI; no facial palsy; no dysarthria,moves extremities Skin- warm & dry Results & Data Results & Data ([facility]) Vital Signs (Past 12 Hours) Vital Signs Temp Pulse Pulse Resp BP Pulse Ox O2 Del Method 11/04/21 07:36 36.6 C 65 16 173/94 H 95 Nasal Cannula 11/04/21 02:50 36.9 C 68 19 161/84 H 98 Nasal Cannula 11/03/21 22:17 62 11/03/21 23:35 Room Air, Nasal Cannula 11/03/21 22:42 36.7 C 62 20 148/70 H 95 Nasal Cannula O2 Flow Rate 11/04/21 07:36 3 11/04/21 02:50 3 11/03/21 22:17 11/03/21 23:35 2 11/03/21 22:42 3 Laboratory Results 11/04/21 11/04/21 11/04/21 Range/Units 07:22 05:59 05:59 WBC 4.65 L (4.8-10.8) K/ul RBC 3.22 L (4.63-6.08) M/uL Hgb 10.6 L (14.0-18.0) g/dl Hct 32.8 L (40.1-51.0) % MCV 101.9 H (80.0-100.0) fL MCH 32.9 (25.0-34.0) pg MCHC 32.3 (32.0-36.0) g/dL RDW Std Deviation 52.0 H (36.4-46.3) fL RDW Coeff of Chaka 13.7 (11.5-14.5) % Plt Count (130-400) K/uL MPV (9.4-12.4) fL Plt Count ,Citrate 149 (130-400) K/uL Sodium 137 (136-145) mmol/L Potassium 3.9 (3.5-5.1) mmol/L Chloride 107 (98-107) mmol/L Carbon Dioxide 25 (21-32) mmol/L Anion Gap 5 (3-11) BUN 23 (6-23) mg/dl Creatinine 1.63 H D (0.6-1.4) mg/dl Est Cr Clr Drug Dosing 43.9 ml/min Est GFR ( Amer) 47.7 ml/min Est GFR (Non-Af Amer) 41.2 ml/min BUN/Creatinine Ratio 14.1 (10-20) Glucose 94 (70-99(Fasting)) mg/dl Calcium 8.2 L (8.5-10.1) mg/dl Phosphorus 3.1 (2.5-4.9) mg/dl Magnesium 1.9 (1.7-2.4) mg/dl Procalcitonin (0-0.5) ng/ml 11/03/21 11/03/21 Range/Units 08:26 06:16 WBC (4.8-10.8) K/ul RBC (4.63-6.08) M/uL Hgb (14.0-18.0) g/dl Hct (40.1-51.0) % MCV (80.0-100.0) fL MCH (25.0-34.0) pg MCHC (32.0-36.0) g/dL RDW Std Deviation (36.4-46.3) fL RDW Coeff of Chaka (11.5-14.5) % Plt Count (130-400) K/uL MPV (9.4-12.4) fL Plt Count ,Citrate 141 (130-400) K/uL Sodium (136-145) mmol/L Potassium (3.5-5.1) mmol/L Chloride (98-107) mmol/L Carbon Dioxide (21-32) mmol/L Anion Gap (3-11) BUN (6-23) mg/dl Creatinine (0.6-1.4) mg/dl Est Cr Clr Drug Dosing ml/min Est GFR ( Amer) ml/min Est GFR (Non-Af Amer) ml/min BUN/Creatinine Ratio (10-20) Glucose (70-99(Fasting)) mg/dl Calcium (8.5-10.1) mg/dl Phosphorus (2.5-4.9) mg/dl Magnesium (1.7-2.4) mg/dl Procalcitonin 2.23 H (0-0.5) ng/ml Medications Administered Current Inpatient Medications Acetaminophen (Acetaminophen 325 Mg Tab) 650 mg PO Q4H PRN PRN Reason: Pain or Fever Stop: 12/01/21 00:09 Last Admin: 11/01/21 22:44 Dose: 650 mg Albuterol (Albuterol Hfa 8 Gm Inhaler) 2 puffs INH QID PRN PRN Reason: Wheezing Stop: 12/01/21 00:09 Allopurinol (Allopurinol 100 Mg Tab) 200 mg PO DAILY MOLINA Stop: 12/01/21 08:59 Last Admin: 11/03/21 08:23 Dose: 200 mg Amlodipine Besylate (Amlodipine Besylate 5 Mg Tab) 2.5 mg PO QAM [facility]OL[facility] Stop: 12/01/21 08:59 Last Admin: 11/02/21 10:01 Dose: 2.5 mg Apixaban (Apixaban 5 Mg Tablet) 5 mg PO BID MOLINA Stop: 12/01/21 08:59 Last Admin: 11/02/21 10:01 Dose: 5 mg Ascorbic Acid (Ascorbic Acid 500 Mg Tab) 250 mg PO DAILY MOLINA Stop: 12/01/21 08:59 Last Admin: 11/03/21 08:24 Dose: 250 mg Atorvastatin Calcium (Atorvastatin 40 Mg Tab) 80 mg PO QPM [facility] Stop: 12/01/21 20:59 Last Admin: 11/03/21 20:16 Dose: 80 mg Clonidine HCl (Clonidine Hcl 0.1 Mg Tab) 0.1 mg PO Q4H PRN PRN Reason: Hypertension Stop: 12/01/21 00:34 Last Admin: 11/01/21 01:36 Dose: 0.1 mg Clopidogrel Bisulfate (Clopidogrel Bisulfate 75 Mg Tab) 75 mg PO QAM [facility] Stop: 12/01/21 08:59 Last Admin: 11/02/21 10:00 Dose: 75 mg Doxycycline Hyclate (Doxycycline Hyclate 100 Mg Cap) 100 mg PO BID [facility]OLINA Stop: 11/08/21 23:59 Last Admin: 11/03/21 20:16 Dose: 100 mg Ferrous Sulfate (Ferrous Sulfate 325 Mg Tab) 325 mg PO DAILY [facility]OLINA Stop: 12/01/21 08:59 Last Admin: 11/03/21 08:24 Dose: 325 mg Fluticasone Propionate (Fluticasone Propionate Na Spr 16 Gm Btl) 2 sprays NA DAILY PRN PRN Reason: Congestion Stop: 12/01/21 00:09 Folic Acid (Folic Acid 1 Mg Tab) 1 mg PO QAM [facility] Stop: 12/01/21 08:59 Last Admin: 11/03/21 08:22 Dose: 1 mg Hydralazine HCl (Hydralazine Hcl 20 Mg/Ml Vial) 7.5 mg IV Q6H PRN PRN Reason: Hypertension Stop: 12/01/21 00:09 Ceftriaxone Sodium 2,000 mg/ (Dextrose) 70 mls @ 140 mls/hr IV Q24H [facility]; Protocol Stop: 11/11/21 00:59 Last Infusion: 11/04/21 01:06 Dose: Infused Sodium Chloride (Nss 1000ml) 1,000 mls @ 70 mls/hr IV .[id number] [facility] Stop: 12/02/21 09:59 Last Admin: 11/03/21 17:34 Dose: 70 mls/hr Metoprolol Tartrate (Metoprolol Tartrate 25 Mg Tab) 12.5 mg PO BID [facility] Stop: 12/01/21 08:59 Last Admin: 11/03/21 20:16 Dose: 12.5 mg Nitroglycerin (Nitroglycerin Sl 0.4 Mg/Tab Tab) 0.4 mg SL Q5M PRN PRN Reason: Chest Pain Stop: 12/01/21 00:09 Ondansetron HCl (Ondansetron Inj 2 Mg/Ml 2 Ml Vial) 4 mg IV Q6H PRN PRN Reason: Nausea Stop: 12/01/21 00:09 Thiamine HCl (Thiamine Hcl 100 Mg Tab) 100 mg PO [facility] Stop: 12/01/21 08:59 Last Admin: 11/03/21 08:24 Dose: 100 mg Triamcinolone Acetonide (Triamcinolone Acet 0.1% Oint 15 Gm Tube) 1 appln TOP BID PRN PRN Reason: flare ups Stop: 12/01/21 00:09 Vitamin D (Cholecalciferol 1,000 Units 25 Mcg Tab) 2,000 units PO [facility] Stop: 12/01/21 08:59 Last Admin: 11/03/21 08:24 Dose: 2,000 units
[2021-11-04] MEDS: SODIUM CHLORIDE 0.9% 1000ML 1,000 ML IV SCH (08:20)
[2021-11-04] MEDS: CHOLECALCIFEROL 1,000 UNITS 25 MCG TAB PO SCH (08:23)
[2021-11-04] MEDS: DOXYCYCLINE HYCLATE 100 MG CAP PO SCH (08:23)
[2021-11-04] MEDS: FOLIC ACID 1 MG TAB PO SCH (08:23)
[2021-11-04] MEDS: ASCORBIC ACID 500 MG TAB PO SCH (08:23)
[2021-11-04] MEDS: FERROUS SULFATE 325 MG TAB PO SCH (08:23)
[2021-11-04] MEDS: allopurinoL 100 MG TAB PO SCH (08:23)
[2021-11-04] MEDS: METOPROLOL TARTRATE 25 MG TAB PO SCH (08:24)
[2021-11-04] MEDS: THIAMINE HCL 100 MG TAB PO SCH (08:24)
--- NOTE | 2021-11-04 09:17 | Communication Note ---
Date of Service: November 04, 2021 Patient NPO for EGD this AM pending endoscopically unit availability. Risks / benefits of EGD discussed, pt agreement to get EGD today. He will remain NPO for procedure today. Please see report of EGD for additional recommendations/plans. Thank you for allowing us to participate in the care of this patient. Please call with any acute changes, questions or concerns. Please see addendum below with additional recommendation from my supervising physician.
--- NOTE | 2021-11-04 11:02 | Anesthesiology Consultation ---
Date of Service November 04, 2021 Assessment & Plan Chart Review Chart Review: Acceptable Risk for Surgery and Patient NOT seen in Pre Admission Testing Consults Requested none ASA ASA4 Proposed Anesthesia Anesthesia Type: MAC History Surgery Operation Date: 11/04/21 17:00 Proposed Procedures p Esophagogastroduodenoscopy Dr Mckinley Sen, DO Height/Weight Height: 5 ft 8 in Weight: 89.5 kg Allergies Allergy/AdvReac Type Severity Reaction Status Date / Time RUBENS Inhibitors AdvReac Intermediate DROPS Verified 10/31/21 17:10 BLOOD PRESSURE lisinopril AdvReac Intermediate DROPS Verified 10/31/21 17:10 BLOOD PRESSURE Medications Home Medications Medication Instructions Recorded Confirmed Last Taken atorvastatin 80 mg tablet 80 mg PO QPM 03/25/19 10/31/21 10/30/21 clopidogrel 75 mg tablet 75 mg PO QAM 03/25/19 10/31/21 10/31/21 fluticasone propionate 50 2 spray intranasal DAILY PRN 03/25/19 10/31/21 01/01/21 mcg/actuation nasal Congestion spray,suspension cholecalciferol (vitamin D3) 50 2,000 unit PO QAM 06/10/20 10/31/21 10/31/21 mcg (2,000 unit) capsule (D3-2000) triamcinolone acetonide 0.1 % 1 applic topical BID PRN flare ups 06/10/20 10/31/21 12/30/20 topical ointment apixaban 5 mg tablet (Eliquis) 5 mg PO BID #60 tabs 06/15/20 10/31/21 10/31/21 08:00 amlodipine 2.5 mg tablet 2.5 mg PO QAM 12/30/20 10/31/21 10/31/21 iron,carbonyl 65 mg-vitamin C 125 1 tab PO DAILY 12/30/20 10/31/21 10/31/21 mg tablet,delayed release (Vitron-C) albuterol sulfate 90 mcg/actuation 2 puff inhalation QID PRN Wheezing 10/31/21 10/31/21 Unknown aerosol inhaler allopurinol 300 mg tablet 300 mg PO DAILY 10/31/21 10/31/21 10/31/21 metoprolol tartrate 25 mg tablet 12.5 mg PO BID 10/31/21 10/31/21 10/31/21 08:00 Active Medications Generic Name Dose Route Start Last Admin Trade Name Freq PRN Reason Stop Dose Admin Acetaminophen 650 mg 11/01/21 00:10 11/01/21 22:44 Acetaminophen 325 Mg Tab PO 12/01/21 00:09 650 mg Q4H PRN Administration Pain or Fever Allopurinol 200 mg 11/01/21 09:00 11/04/21 08:23 Allopurinol 100 Mg Tab PO 12/01/21 08:59 200 mg DAILY MOLINA Administration Amlodipine Besylate 2.5 mg 11/01/21 09:00 11/02/21 10:01 Amlodipine Besylate 5 Mg Tab PO 12/01/21 08:59 2.5 mg QAM MOLINA Administration Apixaban 5 mg 11/01/21 09:00 11/02/21 10:01 Apixaban 5 Mg Tablet PO 12/01/21 08:59 5 mg BID MOLINA Administration Ascorbic Acid 250 mg 11/01/21 09:00 11/04/21 08:23 Ascorbic Acid 500 Mg Tab PO 12/01/21 08:59 250 mg DAILY MOLINA Administration Atorvastatin Calcium 80 mg 11/01/21 21:00 11/03/21 20:16 Atorvastatin 40 Mg Tab PO 12/01/21 20:59 80 mg QPM MOLINA Administration Clonidine HCl 0.1 mg 11/01/21 00:35 11/01/21 01:36 Clonidine Hcl 0.1 Mg Tab PO 12/01/21 00:34 0.1 mg Q4H PRN Administration Hypertension Clopidogrel Bisulfate 75 mg 11/01/21 09:00 11/02/21 10:00 Clopidogrel Bisulfate 75 Mg Tab PO 12/01/21 08:59 75 mg QAM MOLINA Administration Doxycycline Hyclate 100 mg 11/01/21 15:05 11/04/21 08:23 Doxycycline Hyclate 100 Mg Cap PO 11/08/21 23:59 100 mg BID MOLINA Administration Ferrous Sulfate 325 mg 11/01/21 09:00 11/04/21 08:23 Ferrous Sulfate 325 Mg Tab PO 12/01/21 08:59 325 mg DAILY MOLINA Administration Folic Acid 1 mg 11/01/21 09:00 11/04/21 08:23 Folic Acid 1 Mg Tab PO 12/01/21 08:59 1 mg QAM MOLINA Administration Ceftriaxone Sodium 2,000 mg/ 70 mls @ 140 mls/hr 11/01/21 01:00 11/04/21 01:06 Dextrose IV 11/11/21 00:59 Infused Q24H MOLINA Infusion Protocol Sodium Chloride 1,000 mls @ 70 mls/hr 11/02/21 10:00 11/04/21 08:20 Nss 1000ml IV 12/02/21 09:59 70 mls/hr .[id number] MOLINA Administration Metoprolol Tartrate 12.5 mg 11/01/21 09:00 11/04/21 08:24 Metoprolol Tartrate 25 Mg Tab PO 12/01/21 08:59 12.5 mg BID MOLINA Administration Thiamine HCl 100 mg 11/01/21 09:00 11/04/21 08:24 Thiamine Hcl 100 Mg Tab PO 12/01/21 08:59 100 mg QAM MOLINA Administration Vitamin D 2,000 units 11/01/21 09:00 11/04/21 08:23 Cholecalciferol 1,000 Units 25 Mcg Tab PO 12/01/21 08:59 2,000 units QAM MOLINA Administration Past Medical History Medical History CKD (chronic kidney disease), stage III PT DENIES History of GI bleed Hx of gout Hx SBO Hyperlipidemia Hypertension Sleep apnea CPAP Stroke X 2 (LAST EVENT 05/2020) CONT. TO HAVE SLIGHT BALANCE ISSUES Exercise / Class Metabolic Activity III < 4 Walking/Shop/Light housework Past Family History Family History Other AAA (abdominal aortic aneurysm) Hypertension No family history of adverse response to anesthesia Past Surgical History Surgical History History of lumbar surgery 1999 History of tonsillectomy History of tooth extraction Hx of colonoscopy Hx of hernia repair lysis of adhesions, incisional hernia repair laparoscopically 01/28/2010 at [facility] - Dr Desouza S/P AAA repair 01/13/2009 - Dr Suazo ([place] YEARLY AT [facility]) Past Anesthesia History No Hx of Anesthesia Complications and No Family Hx of Anesthesia Complications History of PONV No Hx of PONV and No Hx of Motion Sickness Social History Smoking Status: Former smoker tobacco type: cigarettes Smoking cigarettes per day: Former cigarette. Quit 1998 Smoking End Date: 2004 Hx Alcohol Use: Yes Alcohol type: beer and wine alcohol intake frequency: 3 or more drinks per day Hx Substance Use: No substance use type: does not use Physical Exam Vital Signs Last Vital Signs Temp 36.6 C 11/04/21 07:36 Pulse 65 11/04/21 07:36 Resp 16 11/04/21 07:36 BP 173/94 H 11/04/21 07:36 Pulse Ox 95 11/04/21 07:36 O2 Del Method 11/04/21 07:36 O2 Flow Rate 3 11/04/21 07:36 Testing Laboratory Results 11/04/21 05:59 11/04/21 05:59 PT 11.9 Seconds (9.0-12.0) 10/31/21 18:03 INR 1.1 (0.9-1.1) 10/31/21 18:03 Urine Color Yellow 10/31/21 17:45 Urine Appearance Clear (Clear) 10/31/21 17:45 Urine pH 6.5 (4.5-7.5) 10/31/21 17:45 Ur Specific [place] 1.022 (1.000-1.030) 10/31/21 17:45 Urine Protein 3+ (Negative) H 10/31/21 17:45 Urine Glucose (UA) Negative (Negative) 10/31/21 17:45 Urine Ketones Trace (Negative) H 10/31/21 17:45 Urine Nitrite Negative (Negative) 10/31/21 17:45 Ur Leukocyte Esterase 1+ (Negative) H 10/31/21 17:45 Urine WBC (Auto) 1-5 /hpf (0-5) 10/31/21 17:45 Urine RBC (Auto) 5-10 /hpf (0-4) H 10/31/21 17:45 U Hyaline Cast (Auto) 1-5 /lpf (0-5) 10/31/21 17:45 U Epithel Cells (Auto) >30 /lpf (0-5) H 10/31/21 17:45 Urine Bacteria (Auto) Negative (Negative) 10/31/21 17:45 11/01/21 21:30 Urine Culture - Final Urine,Clean Catch Gram positive cocci 10/31/21 17:10 Aerobic Blood Culture - Preliminary Blood No growth in Aerobic bottle after 48 hours. Anaerobic Blood Culture - Preliminary No growth in Anaerobic bottle after 48 hours. 10/31/21 16:55 Aerobic Blood Culture - Preliminary Blood No growth in Aerobic bottle after 48 hours. Anaerobic Blood Culture - Preliminary No growth in Anaerobic bottle after 48 hours.
[2021-11-04] MEDS ORDERED: ePHEDrine sulfate 50 MG/ML AMP IV PRN (11:12)
[2021-11-04] MEDS ORDERED: ATROPINE SULFATE 0.1 MG/ML 10ML SYR IV PRN (11:12)
--- NOTE | 2021-11-04 11:16 | History & Physical Bridge Note ---
Date of Service November 04, 2021 History & Physical Bridge Note I have examined the patient, reviewed the History & Physical and in the interval since the performance of the History & Physical I have noted the following changes of clinical significance: no changes noted EGD planned for evalaution of anemia and heme + stool. We have discussed the risks to include bleeding, infection, perforation, pain, aspiration, and need for follow-up studies.
[2021-11-04] MEDS ORDERED: PROPOFOL IV EMULSION 10 MG/ML 20 ML VIAL IV ONE (11:33)
[2021-11-04] MEDS ORDERED: LIDOCAINE 2% MPF LOCAL 5 ML VIAL INFIL ONE (11:33)
--- NOTE | 2021-11-04 11:39 | GI REPORT ---
Patient Name: Mikhail Fung Procedure Date: 11/04/2021 11:21 AM Date of : 1950 Admit Type: Inpatient Age: 71 Gender: Male Attending MD: Redd Sen DO Procedure: Upper GI endoscopy Providers: Redd Sen DO Referring MD: Thomas Delgado Md Indications: Iron deficiency anemia secondary to chronic blood loss Medicines: Monitored Anesthesia Care Complications: No immediate complications. Estimated blood loss: Minimal. Estimated Blood Loss: Estimated blood loss was minimal. Procedure: Pre-Anesthesia Assessment: - Prior to the procedure, a History and Physical was performed, and patient medications, allergies and sensitivities were reviewed. The patient's tolerance of previous anesthesia was reviewed. - The risks and benefits of the procedure and the sedation options and risks were discussed with the patient. All questions were answered and informed consent was obtained. - Patient identification and proposed procedure were verified prior to the procedure by the physician, the nurse and the gasket supervisor. The procedure was verified in the procedure room. - Pre-procedure physical examination revealed no contraindications to sedation. - ASA Grade Assessment: IV - A patient with severe systemic disease that is a constant threat to life. - After reviewing the risks and benefits, the patient was deemed in satisfactory condition to undergo the procedure. - The anesthesia plan was to use monitored anesthesia care (MAC). - Immediately prior to administration of medications, the patient was re-assessed for adequacy to receive sedatives. - The heart rate, respiratory rate, oxygen saturations, blood pressure, adequacy of pulmonary ventilation, and response to care were monitored throughout the procedure. - The physical status of the patient was re-assessed after the procedure. After obtaining informed consent, the endoscope was passed under direct vision. Throughout the procedure, the patient's blood pressure, pulse, and oxygen saturations were monitored continuously. The Scope was introduced through the mouth, and advanced to the fourth part of duodenum. The upper GI endoscopy was accomplished without difficulty. The patient tolerated the procedure well. Findings: The examined esophagus was normal. Diffuse mild inflammation characterized by congestion (edema), erythema and granularity was found in the entire examined stomach. One non-obstructing non-bleeding superficial gastric ulcer with pigmented material was found on the lesser curvature of the gastric body. The lesion was 15 mm in largest dimension. The examined duodenum was normal. Impression: - Normal esophagus. - Gastritis. - Non-obstructing non-bleeding gastric ulcer with pigmented material. NSAID induced etiology. - Normal examined duodenum. - No specimens collected. Recommendation: - [facility]. - Advance diet as tolerated today. - No aspirin, ibuprofen, naproxen, or other non-steroidal anti-inflammatory drugs for 12 weeks then reduce to 20 mg per day. - Use Protonix (pantoprazole) 40 mg PO daily. - Use sucralfate tablets 1 gram PO QID for 2 weeks. - Repeat upper endoscopy in 3 months to check healing. Redd Sen D.O. Redd Sen, DO 11/04/2021 11:39:00 AM This report has been signed electronically. Note Initiated On: 11/04/2021 11:21 AM Number of Addenda: 0 I attest to the content of the Intraoperative Record and orders documented therein, exceptions below {[id number]}
--- NOTE | 2021-11-04 12:37 | Communication Note ---
Date of Service: November 04, 2021 The patient underwent upper endoscopy today and was found to have evidence of superficial ulcers within his stomach body. This could certainly be related to use of nonsteroidal medications. Recommendations Advance diet as tolerated Avoid nonsteroidals for 6 to 8 weeks Protonix 40 mg daily for 6 weeks then 20 mg daily thereafter Carafate 4 times daily for 2 weeks Repeat upper endoscopy in 3 months Please call with any questions or concerns, GI to sign off
[2021-11-04] MEDS ORDERED: GABAPENTIN 600 MG TAB PO SCH (12:45)
[2021-11-04] MEDS ORDERED: PANTOprazole 40 MG in SYRINGE 0 ML IV ONE (13:52)
[2021-11-04] MEDS: cloNIDine HCL 0.1 MG TAB PO PRN (14:18)
--- NOTE | 2021-11-04 14:32 | Discharge Summary ---
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 Ambulates without support. The patient had acute right cerebellar stroke in May of 2020. Echo showed patent foramen ovale, on Plavix, statin and Eliquis. The patient comes here because of feeling dizzy at home today, bloating and constipation, did not move his bowels for the last 2 days. He was worried about stroke-like symptoms from his dizziness, but currently the dizziness is improved. Bladder movements are okay. He had a temperature spike in the ER. Denies any burning micturition. Has mild dry cough. Denies any chest pain. He is always short of breath. He states he uses oxygen at home and CPAP during the night. Denies any headache. He has some vision loss in the right eye. No earache, no runny nose, no sore throat, no difficulty swallowing. Currently, resting comfortably, hemodynamically stable. Admission Exam Per Admitting Provider GENERAL: The patient is of moderate build, not in acute distress. VITAL SIGNS: Temperature 36.9, pulse 84, respiratory rate 20, blood pressure 222/146, oxygen 98% on room air. HEENT: Pupils equal, round and reactive to light. Oral mucosa moist. NECK: No JVD, no neck masses. CARDIOVASCULAR: S1 and S2 heard. Regular rate and rhythm. No murmur, no gallop. RESPIRATORY: Normal AP diameter. No accessory muscle use. No wheezing or crackles. ABDOMEN: Soft, bowel sounds present, nontender, no distention. CENTRAL NERVOUS SYSTEM: Cranial nerves II-XII grossly intact. Power 5/5 in all extremities. Sensation is intact. No pronator drift. Coordination of movements normal. EXTREMITIES: No edema, no erythema. Principal Diagnosis Dizziness, fever, anemia, gastric ulcer Discharge Exam General- No acute distress Head- atraumatic Eyes- PERRL, EOMI, ENT- oropharynx clear Neck- supple, no JVD Lungs- clear to auscultation Heart- regular rhythm; no murmur Abdomen- normal bowel sounds, soft, nontender Extremities- no calf tenderness Neuro- alert, oriented, PERRL, EOMI; no facial palsy; no dysarthria,moves extremities Skin- warm & dry Discharge Data Allergies Allergy/AdvReac Type Severity Reaction Status Date / Time RUBENS Inhibitors AdvReac Intermediate DROPS Verified 10/31/21 17:10 BLOOD PRESSURE lisinopril AdvReac Intermediate DROPS Verified 10/31/21 17:10 BLOOD PRESSURE Consultations 10/31/21 21:36 ED Decision to Admit Stat 11/01/21 15:19 Consult Gastroenterology Routine 11/02/21 09:46 Consult Nephrology Routine Procedures Performed Operation Date: 11/04/21 17:00 Actual Procedures p Esophagogastroduodenoscopy - Redd Sen DO Ordered Studies 10/31/21 16:22 CT angio head w con Stat IMPRESSION: 1. No significant change from the preceding study. Persistent atheromatous changes as described above without evidence of hemodynamically significant stenosis 2. No evidence of aneurysm CT angio neck with con Stat IMPRESSION: 1. 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 Extensive atheromatous changes with a 50% stenosis of the proximal right internal carotid artery 3. 50% diameter stenosis of the proximal right vertebral artery. 4. Equivocal right vocal cord polyp. Stable 7 mm soft tissue nodule superior lateral to the left vocal cord. 10/31/21 16:23 CT head/brain wo con Stat Impression: 1. No acute intracranial abnormality. 2. Old scattered infarcts as described above. 11/01/21 12:40 MRI Brain [MR brain wo con] Routine FINDINGS: Brain parenchyma: There is age-related involutional change noting moderate subcortical and periventricular microangiopathic disease. There are foci of right frontal, right parietal, left occipital, and right cerebellar encephalomalacia consistent with remote infarcts. A chronic lacunar infarct is noted in the right caudate head. There is no hemorrhage or mass effect. There is no restricted diffusion to suggest acute ischemia. Blair-white matter differentiation is preserved. No extra-axial fluid collection is seen. The cerebellar tonsils are normal in configuration. Ventricles, sulci, and cisterns: Prominent secondary to involutional change. Pituitary and sella: Unremarkable. Intracranial vasculature: Normal flow voids are maintained at the skull base. Orbits: The bony orbits are grossly intact. Orbital contents are normal in appearance. Sinuses and mastoids: Clear. Calvarium: Unremarkable. Cervical cord: Partially visualized cervical spinal cord is normal in morphology and signal intensity. IMPRESSION: Senescent change and remote infarcts as above with no acute intracranial abnormality identified. Hospital Course (1) Dizziness: Present on admission with dizziness and constipation needed to r/o CVA CTA head/Neck showed no significant stenosis, occlusion, or aneurysm within the k[place] of [place]. No significant change in the 50% stenosis within the proximal right internal carotid artery due to the atherosclerotic plaque. CT head showed No acute intracranial abnormality. No focal deficit on exam, but pt was very sleepy that might be due to the gabapentin Continued to feel dizzy - similar with his prior stroke MRI head showed no acute intracranial abnormality Currently on home meds Plavix and eliquis Held Eliquis for the +FOBT, Plavix given Continue monitor closely Fever Unknown origin (? or secondary to ulcers) last fever on 11/01 night CXR showed no Pneumonia Procalcitonin initially normal (10/31), repeat procal elevated (11/03), WBC normal Blood cx and urine cx no growth Continued IV Rocephin and doxycycline Will DC on PO Augmentin, outpt follow up Constipation KUB on admission showed moderate well-formed stool seen throughout the colon.Mildly dilated gas-filled loops of large and small bowel seen throughout the abdomen. Repeat KUB showed gaseous distention of the small bowel and colon is similar to previous and favors ileus. Mild fecal retention is seen throughout the colon. Received Lactulose Pt had a profuse diarrhea stable KUB 11/03 - Interval improvement/resolution of the suspected ileus. Recommend MiraLAX daily, in order to have 1 soft stool daily +FOBT Hgb stable ~11 Had an episode of dark stool after lactulose GI consulted S/p EGD Findings: The examined esophagus was normal. Diffuse mild inflammation characterized by congestion (edema), erythema and granularity was found in the entire examined stomach. One non-obstructing non-bleeding superficial gastric ulcer with pigmented material was found on the lesser curvature of the gastric body. The lesion was 15 mm in largest dimension. The examined duodenum was normal. Impression: - Normal esophagus. - Gastritis. - Non-obstructing non-bleeding gastric ulcer with pigmented material. NSAID induced etiology. - Normal examined duodenum. - No specimens collected. Recommendation: - [facility]. - Advance diet as tolerated today. - No aspirin, ibuprofen, naproxen, or other non-steroidal anti-inflammatory drugs for 12 weeks then reduce to 20 mg per day. - Use Protonix (pantoprazole) 40 mg PO daily, then reduce to 20 mg per day. - Use sucralfate tablets 1 gram PO QID for 2 weeks. - Repeat upper endoscopy in 3 months to check healing. GI communication note Avoid nonsteroidals for 6 to 8 weeks Protonix 40 mg daily for 6 weeks then 20 mg daily thereafter Carafate 4 times daily for 2 weeks Repeat upper endoscopy in 3 months Held eliquis and plavix for EGD, then resume if no active bleeding Continue monitor H/H Acute kidney injury on chronic kidney disease, stage III: Baseline creatinine of 1.6, creatinine 2 on admission Possible due to IV contrast Creatinine worsening at 2.4, now down to 1.6 Nephrology following Gentle hydration added Will avoid nephrotoxic agents Continue monitor BMP History of hyperlipidemia. Continue statin. History of CVA: home meds statin, Plavix and Eliquis. Hold Plavix, Eliquis for the EGD in am Gout. Continue allopurinol. Hypertension. Continue amlodipine, metoprolol. History of questionable AFib. rate control Currently metoprolol and Eliquis. Hold Eliquis for EGD History of abdominal aortic aneurysm status post repair. Stable Alcohol use Daughter said that he only drinks 1 to 2 beers daily No history of alcohol withdrawal Gabapentin discontinued due to the drowsiness Will monitor closely for sign of alcohol withdrawal Counseling on alcohol cessation No signs of alcohol withdrawal Total Time Total Time Spent Total Time Spent (In Minutes): 40 Discharge Plan Discharge Items Patient Disposition: Home - Self-Care Reason For Visit: ILLNESS Discharge Diagnosis: Dizziness, fever, anemia, gastric ulcer Condition on Discharge: Fair Activity: Per Instructions section Non-emergency contact: Primary Care Provider and Shirring Machine Operator Automatic Call non-emergency contact if: you have any medication questions and your symptoms worsen Follow-up/Referrals: Jairo Kingston MD [Primary Care Provider] - Diet: Regular and Heart Healthy Addtl Attending Provider Instructions: Follow-up with primary care doctor within 1 week. Today, start with clear liquid diet, and advance your diet as tolerated. Do not recommend any heavy foods, also do not recommend any spicy or acidic foods. Start taking pantoprazole 40 mg daily for 6 weeks, then 20 mg daily thereafter. Take Carafate 4 times a day for next 2 weeks. Avoid any NSAIDs such as aspirin, Motrin, Aleve, ibuprofen, for at least next 8 weeks. You can take Tylenol for pain, if needed Finish antibiotic treatment with Augmentin as prescribed. You will need follow-up endoscopy in 3 months, to ensure resolution of ulcers. Pending Studies at Discharge: No Stand-Alone Forms: My [facility], Smoking Cessation Medications and DC Order Prescriptions: New ferrous sulfate 325 mg (65 mg iron) Tablet,Delayed Release (Dr/Ec) 325 mg PO DAILY Qty: 20 0RF pantoprazole 40 mg Tablet,Delayed Release (Dr/Ec) 40 mg PO DAILY Qty: 30 1RF sucralfate 100 mg/mL Suspension 1 g PO QID Qty: 400 0RF amoxicillin-pot clavulanate 875-125 mg tablet 1 tab PO BID 7 Days Qty: 14 0RF Continued atorvastatin 80 mg tablet 80 mg PO QPM clopidogrel 75 mg tablet 75 mg PO QAM fluticasone propionate 50 mcg/actuation [place],Suspension 2 spray INTRANASAL DAILY PRN (Reason: Congestion) triamcinolone acetonide 0.1 % Ointment 1 applic TOPICAL BID PRN (Reason: flare ups) cholecalciferol (vitamin D3) [D3-2000] 50 mcg (2,000 unit) capsule 2,000 unit PO QAM Eliquis 5 mg Tablet 5 mg PO BID Qty: 60 0RF Label Comments: HAS HOLDING INSTRUCTIONS allopurinol 300 mg tablet 300 mg PO DAILY albuterol sulfate 90 mcg/actuation HFA aerosol inhaler 2 puff INHALATION QID PRN (Reason: Wheezing) metoprolol tartrate 25 mg tablet 12.5 mg PO BID Label Comments: TAKES 12.5 MG BID amlodipine 2.5 mg Tablet 2.5 mg PO QAM Vitron-C 65 mg iron- 125 mg Tablet,Delayed Release (Dr/Ec) 1 tab PO DAILY Discharge Orders: Discharge Order (Routine); Ordered 11/04/21 Ordered By: Thomas Delgado Admission Data Admit Date/Time: 10/31/21 23:10 Attending Provider: Thomas Delgado Admit Provider: Corby Wright Primary Care Provider: Jairo Kingston Other Providers: Corby Wright ; Redd Sen ; Andrew South Other Interventions: Discharge Summary Assessment (RN) Last Done: 11/04/21 11:57
[2021-11-04] MEDS ORDERED: SUCRALFATE 1 GM/10 ML UDC PO SCH (17:00)
[2021-11-04] MEDS ORDERED: PANTOprazole 40 MG TAB PO SCH (21:00)
== END 2021-11-04 15:20 | disposition home or self-care (01) | DRG 384 ==
LOC: ED 15:42 → SUATTDRO 23:10 → 2N 23:10

== ENCOUNTER 2022-08-04 06:03 | Inpatient (IN) ==
[2022-08-04] MEDS ORDERED: methylPREDNISolone 125 MG/2 ML VIAL IV STA (06:28)
[2022-08-04] MEDS ORDERED: ALBUT/IPRATROP 3MG/0.5MG NEB 3 ML VIAL NEB STA ×3 (06:28→07:24)
--- NOTE | 2022-08-04 06:35 | Emergency Department Note ---
Impression & Plan Hypoxia ADMIT ED Provider Note HPI: The patient is a 72-year-old gentleman with history of hypertension, hyperlipidemia, aortic stenosis, stroke, AAA status postrepair, presents emergency department chief complaint of shortness of breath since that he states is been worsening over the past several weeks but was acutely worse when he woke up this morning. Patient denies any chest pain. On arrival to the ED the patient exhibits bilateral wheezing and increased work of breathing, he is saturating well on nasal cannula oxygen on arrival. ROS: - Per HPI *Outpatient medications and allergy history reviewed. *Pertinent external medical records reviewed. PE: General: Alert HEENT: Normocephalic, trachea midline Eyes: Extraocular eye movement is intact, no scleral erythema Pulmonary: Coarse breath sounds bilaterally with expiratory wheezing Cardio: Regular rate and rhythm GI: Abdomen is soft to palpation : No suprapubic tenderness MSK: No evidence of trauma or malformation of the extremities, no edema Skin: No evidence of rash Neuro: Alert, no focal deficits Psychiatric: Cooperative driver medic: (As interpreted by myself): - An order was placed for continuous cardiac monitoring - Patient was noted to be in sinus rhythm with a rate of 85 EKG: (As interpreted by myself): Rate: 75 Rhythm: Normal sinus rhythm Intervals: Within normal limits ST changes: No ST elevation Time: 0711 Interventions provided in ED: -DuoNeb breathing treatment x3, IV Solu-Medrol Differential Diagnosis: COPD exacerbation, viral URI with cough, acute bacterial pneumonia, acute coronary syndrome, CHF exacerbation, pulmonary embolism, amongst other potential pathologies. Medical Decision Making: The patient is a 72-year-old gentleman who presented to the emergency department with increased work of breathing and wheezing. On arrival here to the ED the patient displays increased work of breathing but he is stable on nasal cannula oxygen in regards to his saturations. 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 Chest x-ray does not show any evidence of acute pneumonia, lab work shows no leukocytosis, hemoglobin is stable at 10.8, platelet count is within normal limits, venous blood gas shows normal pH without hypercarbia, CMP shows baseline chronic kidney disease, troponin slightly elevated at 23.7 and BNP at 266. Chest x-ray does not show any evidence of overt pulmonary edema. Patient was taken off his nasal cannula oxygen briefly here in the ED following multiple DuoNeb breathing treatments, he did have a desaturation to 89%, placed back on nasal cannula oxygen with good improvement. Given the patient's increased work of breathing as well as his lab abnormalities and hypoxia, decision was made for admission. I suspect given the patient's wheezing that he is suffering from some COPD exacerbation, he does mention a longstanding history of smoking. He is improved following DuoNeb breathing treatments from the standpoint of his work of breathing. He was also given IV steroids. BNP is mildly elevated but we will avoid diuresis at this time as chest x-ray does not show any evidence of overt fluid overload and patient has a history of aortic stenosis. Case was discussed with the on-call midlevel provider for [facility], patient was placed for admission in stable condition for further care. Consultants: Hospitalist service, Dr. Sandy Hannah Disposition discussion held by myself with: Patient and family member at the bedside * CRITICAL CARE TIME: ( 33 ) minutes -Stabilization of hypoxia with oxygen saturations less than 90% on room air req uiring supplemental oxygen for correction, time spent at the bedside, interpretation of diagnostic studies, discussion with other healthcare providers and arrangement of admission Diagnosis: 1. Hypoxia, acute 2. Acute bronchospasm/wheezing 3. Elevated high-sensitivity troponin level 4. Elevated BNP Disposition: Admission Ghanshyam Dodson DO Emergency Medicine Past Med/Surg History Medical History (Updated 08/04/22 @ 09:32 by Ghanshyam Dodson DO) CKD (chronic kidney disease), stage III follows with [facility] nephrology Gastric ulcer Hearing deficit BL NAILS History of GI bleed Hx of gout Hx SBO Hyperlipidemia Hypertension Obesity PFO (patent foramen ovale) per records. follows with Dr. Jefferson Sleep apnea CPAP Stroke X 2 (LAST EVENT 05/2020) CONT. TO HAVE SLIGHT BALANCE ISSUES Surgical History History of esophagogastroduodenoscopy (EGD) History of lumbar surgery 1999 History of tonsillectomy History of tooth extraction Hx of colonoscopy Hx of hernia repair lysis of adhesions, incisional hernia repair laparoscopically 01/28/2010 at [facility] - Dr Desouza S/P AAA repair 01/13/2009 - Dr Suazo ([place] [facility] AT [facility]) Family History Other AAA (abdominal aortic aneurysm) Hypertension No family history of adverse response to anesthesia Social History Smoking Status: Never smoker Tobacco Type: Cigarettes Cigarettes Per Day: Former cigarette. Quit 1998; Second Hand Exposure: No; Hx Alcohol Use: Yes Alcohol type: beer Alcohol type Comment: 3 beers a day Hx Substance Use: No Preferred Language: Telugu Communication Ability: Effective Lathe Operator Required: No Beliefs That Will Affect Care: None marital status: Current Living Situation: Spouse current occupational status: employed Feels Safe at Home: Yes Assistive Devices: Glasses and Hearing Aid - Bilateral Allergies Allergies Allergy/AdvReac Type Severity Reaction Status Date / Time RUBENS Inhibitors AdvReac Intermediate DROPS Verified 03/03/22 08:02 BLOOD PRESSURE lisinopril AdvReac Intermediate DROPS Verified 03/03/22 08:02 BLOOD PRESSURE Home Meds Home Medications Medication Instructions Recorded Confirmed atorvastatin 80 mg tablet 80 mg PO QPM 03/25/19 03/03/22 clopidogrel 75 mg tablet 75 mg PO QAM 03/25/19 03/03/22 fluticasone propionate 50 2 spray intranasal DAILY PRN 03/25/19 03/03/22 mcg/actuation nasal Congestion spray,suspension cholecalciferol (vitamin D3) 50 2,000 unit PO QAM 06/10/20 03/03/22 mcg (2,000 unit) capsule (D3-1999) amlodipine 2.5 mg tablet 2.5 mg PO QAM 12/30/20 03/03/22 iron,carbonyl 65 mg-vitamin C 125 1 tab PO QAM 12/30/20 03/03/22 mg tablet,delayed release (Vitron-C) albuterol sulfate 90 mcg/actuation 2 puff inhalation QID PRN Wheezing 10/31/21 03/03/22 aerosol inhaler allopurinol 300 mg tablet 150 mg PO QAM 10/31/21 03/03/22 metoprolol tartrate 25 mg tablet 12.5 mg PO BID 10/31/21 03/03/22 ferrous sulfate 325 mg (65 mg 325 mg PO QAM 02/25/22 03/03/22 iron) tablet,delayed release pantoprazole 40 mg tablet,delayed 40 mg PO QAM 02/25/22 03/03/22 release Previous Rx's Medication Instructions Recorded apixaban 5 mg tablet (Eliquis) 5 mg PO BID #60 tabs 06/15/20 Results & Data (ED) Vital Signs Vital Signs - 24 hr 08/04/22 06:07 08/04/22 06:07 08/04/22 06:07 Temperature 36.7 C Temperature Source Oral Pulse Rate 94 H Pulse Rate from SpO2 Sensor Respiratory Rate 35 H Respiratory Effort / Characteristics Labored Labored Blood Pressure 178/102 H Blood Pressure Mean 127 Pulse Oximetry 97 Oxygen Delivery Method Nasal Cannula Nasal Cannula Oxygen Flow Rate 2 2 Sepsis Recent Fever Within 48 Hours No Sepsis New/Unexplained Change in Mental Status No Sepsis Action Taken by Nursing No Action Required Oxygen Flow Rate - Titration Pulse Oximetry Post Tiitration 08/04/22 06:15 08/04/22 06:26 08/04/22 07:28 Temperature Temperature Source Pulse Rate 81 77 Pulse Rate from SpO2 Sensor Respiratory Rate 18 Respiratory Effort / Characteristics Blood Pressure Blood Pressure Mean Pulse Oximetry 98 98 Oxygen Delivery Method Nasal Cannula Nasal Cannula Oxygen Flow Rate 2 4 Sepsis Recent Fever Within 48 Hours Sepsis New/Unexplained Change in Mental Status Sepsis Action Taken by Nursing Oxygen Flow Rate - Titration Pulse Oximetry Post Tiitration 08/04/22 07:00 08/04/22 07:45 08/04/22 07:58 Temperature Temperature Source Pulse Rate 77 72 Pulse Rate from SpO2 Sensor 74 74 Respiratory Rate 27 H 26 H Respiratory Effort / Characteristics Blood Pressure 113/65 125/68 Blood Pressure Mean 81 87 Pulse Oximetry 96 93 89 L Oxygen Delivery Method Nasal Cannula Room Air Room Air Oxygen Flow Rate 4 Sepsis Recent Fever Within 48 Hours Sepsis New/Unexplained Change in Mental Status Sepsis Action Taken by Nursing Oxygen Flow Rate - Titration 2 Pulse Oximetry Post Tiitration 94 08/04/22 08:00 Temperature Temperature Source Pulse Rate 76 Pulse Rate from SpO2 Sensor 75 Respiratory Rate 22 Respiratory Effort / Characteristics Blood Pressure 150/75 H Blood Pressure Mean 100 Pulse Oximetry 95 Oxygen Delivery Method Nasal Cannula Oxygen Flow Rate 2 Sepsis Recent Fever Within 48 Hours Sepsis New/Unexplained Change in Mental Status Sepsis Action Taken by Nursing Oxygen Flow Rate - Titration Pulse Oximetry Post Tiitration Laboratory Data 08/04/22 06:20 08/04/22 06:20 Lab Results 08/04/22 08/04/22 08/04/22 Range/Units 06:00 06:20 06:20 WBC 8.95 (4.8-10.8) K/ul RBC 3.51 L (4.70-6.10) M/uL Hgb 10.8 L (14.0-18.0) g/dl Hct 34.7 L (42.0-52.0) % MCV 98.9 (80.0-100.0) fL MCH 30.8 (25.0-34.0) pg MCHC 31.1 L (32.0-36.0) g/dL RDW Std Deviation 63.8 H (36.4-46.3) fL RDW Coeff of Chaka 17.9 H (11.5-14.5) % Plt Count 141 (130-400) K/uL MPV 10.5 (9.4-12.4) fL Immature Gran % (Auto) 0.4 % Neut % (Auto) 63.7 % Lymph % (Auto) 14.9 % Bennett % (Auto) 7.2 % Eos % (Auto) 12.2 % Baso % (Auto) 1.6 % Neut # (Auto) 5.71 (1.40-6.50) K/uL Lymph # (Auto) 1.33 (1.2-3.4) K/uL Bennett # (Auto) 0.64 H (0.11-0.59) K/uL Eos # (Auto) 1.09 H (0-0.50) K/uL Baso # (Auto) 0.14 (0-0.2) K/uL Immature Gran # (Auto) 0.04 (0.01-0.20) K/uL VBG pH (7.36-7.41) VBG pCO2 (38-50) mmHg VBG pO2 mmHg VBG HCO3 mmol/L VBG O2 Saturation % VBG Base Excess mEq/L Sodium 141 (136-145) mmol/L Potassium 4.2 (3.5-5.1) mmol/L Chloride 106 (98-107) mmol/L Carbon Dioxide 25 (21-32) mmol/L Anion Gap 10 (3-11) BUN 26 H (6-23) mg/dl Creatinine 2.13 H (0.6-1.4) mg/dl Est Cr Clr Drug Dosing 33.3 ml/min Est GFR ( Amer) 34.3 ml/min Est GFR (Non-Af Amer) 29.6 ml/min BUN/Creatinine Ratio 12.2 (10-20) Glucose 107 H (70-99(Fasting)) mg/dl Calcium 9.4 (8.6-10.3) mg/dl Total Bilirubin 0.5 (0.2-1.0) mg/dl AST 21 (13-39) U/L ALT 14 (7-52) U/L Alkaline Phosphatase 99 (34-104) U/L Troponin I High Sens 23.7 H (0-20) pg/ml B-Natriuretic Peptide (0-100) pg/ml Total Protein 7.8 (6.0-8.3) gm/dl Albumin 4.2 (3.4-5.0) gm/dl Globulin 3.6 (2.5-4.0) gm/dl Albumin/Globulin Ratio 1.2 (0.9-2) Adenovirus (PCR) Not Detected (NotDetected) B. pertussis DNA (PCR) Not Detected (NotDetected) B.parapertussis DNA PCR Not Detected (NotDetected) C. pneumoniae DNA (PCR) Not Detected (NotDetected) Coronavirus OC43 (PCR) Not Detected (NotDetected) Coronavirus HKU1 (PCR) Not Detected (NotDetected) Coronavirus 229E (PCR) Not Detected (NotDetected) SARS-CoV-2 (PCR) Not Detected (NotDetected) Coronavirus NL63 (PCR) Not Detected (NotDetected) Human Metapneumovir PCR Not Detected (NotDetected) Influenza Type A (PCR) Not Detected (NotDetected) Influenza Type B (PCR) Not Detected (NotDetected) M. pneumoniae (PCR) Not Detected (NotDetected) Parainfluenza 1 (PCR) Not Detected (NotDetected) Parainfluenza 2 (PCR) Not Detected (NotDetected) Parainfluenza 3 (PCR) Not Detected (NotDetected) Parainfluenza 4 (PCR) Not Detected (NotDetected) RSV (PCR) Not Detected (NotDetected) Entero/Rhino (PCR) Not Detected (NotDetected) 04/19/23 04/19/23 04/19/23 Range/Units 06:20 07:24 07:59 WBC (4.8-10.8) K/ul RBC (4.70-6.10) M/uL Hgb (14.0-18.0) g/dl Hct (42.0-52.0) % MCV (80.0-100.0) fL MCH (25.0-34.0) pg MCHC (32.0-36.0) g/dL RDW Std Deviation (36.4-46.3) fL RDW Coeff of Chaka (11.5-14.5) % Plt Count (130-400) K/uL MPV (9.4-12.4) fL Immature Gran % (Auto) % Neut % (Auto) % Lymph % (Auto) % Bennett % (Auto) % Eos % (Auto) % Baso % (Auto) % Neut # (Auto) (1.40-6.50) K/uL Lymph # (Auto) (1.2-3.4) K/uL Bennett # (Auto) (0.11-0.59) K/uL Eos # (Auto) (0-0.50) K/uL Baso # (Auto) (0-0.2) K/uL Immature Gran # (Auto) (0.01-0.20) K/uL VBG pH 7.36 (7.36-7.41) VBG pCO2 45 (38-50) mmHg VBG pO2 25 mmHg VBG HCO3 25 mmol/L VBG O2 Saturation < 60.0 % VBG Base Excess -0.3 mEq/L Sodium (136-145) mmol/L Potassium (3.5-5.1) mmol/L Chloride (98-107) mmol/L Carbon Dioxide (21-32) mmol/L Anion Gap (3-11) BUN (6-23) mg/dl Creatinine (0.6-1.4) mg/dl Est Cr Clr Drug Dosing ml/min Est GFR ( Amer) ml/min Est GFR (Non-Af Amer) ml/min BUN/Creatinine Ratio (10-20) Glucose (70-99(Fasting)) mg/dl Calcium (8.6-10.3) mg/dl Total Bilirubin (0.2-1.0) mg/dl AST (13-39) U/L ALT (7-52) U/L Alkaline Phosphatase (34-104) U/L Troponin I High Sens Cancelled (0-20) pg/ml B-Natriuretic Peptide 266 H (0-100) pg/ml Total Protein (6.0-8.3) gm/dl Albumin (3.4-5.0) gm/dl Globulin (2.5-4.0) gm/dl Albumin/Globulin Ratio (0.9-2) Adenovirus (PCR) (NotDetected) B. pertussis DNA (PCR) (NotDetected) B.parapertussis DNA PCR (NotDetected) C. pneumoniae DNA (PCR) (NotDetected) Coronavirus OC43 (PCR) (NotDetected) Coronavirus HKU1 (PCR) (NotDetected) Coronavirus 229E (PCR) (NotDetected) SARS-CoV-2 (PCR) (NotDetected) Coronavirus NL63 (PCR) (NotDetected) Human Metapneumovir PCR (NotDetected) Influenza Type A (PCR) (NotDetected) Influenza Type B (PCR) (NotDetected) M. pneumoniae (PCR) (NotDetected) Parainfluenza 1 (PCR) (NotDetected) Parainfluenza 2 (PCR) (NotDetected) Parainfluenza 3 (PCR) (NotDetected) Parainfluenza 4 (PCR) (NotDetected) RSV (PCR) (NotDetected) Entero/Rhino (PCR) (NotDetected) Administered Medications Discontinued Medications Albuterol (Albut/Ipratrop 3mg/0.5mg Neb 3 Ml Vial) 3 ml NEB NOW STA; Protocol Stop: 08/04/22 06:29 Last Admin: 08/04/22 06:42 Dose: 3 ml Documented By: ANIBAL Albuterol (Albut/Ipratrop 3mg/0.5mg Neb 3 Ml Vial) 3 ml NEB NOW STA; Protocol Stop: 08/04/22 07:21 Last Admin: 08/04/22 07:28 Dose: 3 ml Documented By: GRACIELA Albuterol (Albut/Ipratrop 3mg/0.5mg Neb 3 Ml Vial) 3 ml NEB NOW STA; Protocol Stop: 08/04/22 07:25 Last Admin: 08/04/22 08:07 Dose: 3 ml Documented By: GRACIELA Methylprednisolone (Methylprednisolone 125 Mg/2 Ml Vial) 125 mg IV NOW STA Stop: 08/04/22 06:29 Last Admin: 08/04/22 06:42 Dose: 125 mg Documented By: LH Imaging Data Radiologist's Impression: Chest X-Ray 08/04/22 06:13 XR chest 1V portable HISTORY: 72 years-old Male Dyspnea acute shortness of breath COMPARISON: 10/31/2021 TECHNIQUE: AP view of the chest FINDINGS: Left-sided calcified pleural plaques redemonstrated. The cardiac silhouette is enlarged. Atherosclerosis with tortuosity of the thoracic aorta again noted. Chronic interstitial coarsening. There is no pneumothorax, pleural effusion, airspace consolidation or overt pulmonary edema. Degenerative changes of the shoulders and spine. IMPRESSION: Chronic findings as above without acute process. ACT 112: Negative or not required by law. The above report was generated using voice recognition software. It may contain grammatical, syntax or spelling errors. Electronically signed by: Dawson Degroot M.D. 08/04/2022 7:10 AM Discharge Plan Visit Data Chief Complaint: Shortness of Breath/Dyspnea Stated Complaint: SHORTNESS OF BREATH ED Provider: Ghanshyam Dodson Discharge Problem: Hypoxia Forms Stand Alone Forms: My [facility] Prescriptions Prescriptions: No Action atorvastatin 80 mg tablet 80 mg PO QPM clopidogrel 75 mg tablet 75 mg PO QAM fluticasone propionate 50 mcg/actuation [place],Suspension 2 spray INTRANASAL DAILY PRN (Reason: Congestion) cholecalciferol (vitamin D3) [D3-2000] 50 mcg (2,000 unit) capsule 2,000 unit PO QAM Eliquis 5 mg Tablet 5 mg PO BID Qty: 60 0RF Patient Comments: HAS HOLDING INSTRUCTIONS allopurinol 300 mg tablet 150 mg PO QAM albuterol sulfate 90 mcg/actuation HFA aerosol inhaler 2 puff INHALATION QID PRN (Reason: Wheezing) metoprolol tartrate 25 mg tablet 12.5 mg PO BID Patient Comments: TAKES 12.5 MG BID amlodipine 2.5 mg Tablet 2.5 mg PO QAM Vitron-C 65 mg iron- 125 mg Tablet,Delayed Release (Dr/Ec) 1 tab PO QAM pantoprazole 40 mg tablet,delayed release (DR/EC) 40 mg PO QAM ferrous sulfate 325 mg (65 mg iron) tablet,delayed release (DR/EC) 325 mg PO QAM Referrals Referrals: Jairo Kingston MD [Primary Care Provider] -
[2022-08-04 07:08] LABS: Basophils # (auto) 0.14 K/uL (0-0.2); Basophils % (auto) 1.6 %; Eosinophils # (auto) 1.09 K/uL (0-0.50); Eosinophils % (auto) 12.2 %; Hematocrit (blood only) 34.7 % (42.0-52.0); Hemoglobin 10.8 g/dl (14.0-18.0); Immature Granulocytes # (auto) 0.04 K/uL (0.01-0.20); Immature Granulocytes % (auto) 0.4 %; Lymphocytes # (auto) 1.33 K/uL (1.2-3.4); Lymphocytes % (auto) 14.9 %; Mean Corpuscular Hemoglobin 30.8 pg (25.0-34.0); Mean Corpuscular Hgb Conc 31.1 g/dL (32.0-36.0); Mean Corpuscular Volume 98.9 fL (80.0-100.0); Mean Platelet Volume 10.5 fL (9.4-12.4); Monocytes # (auto) 0.64 K/uL (0.11-0.59); Monocytes % (auto) 7.2 %; Neutrophils # (auto) 5.71 K/uL (1.40-6.50); Neutrophils % (auto) 63.7 %; Platelet Count 141 K/uL (130-400); RDW Coefficient of Variation 17.9 % (11.5-14.5); RDW Standard Deviation 63.8 fL (36.4-46.3); Red Blood Count 3.51 M/uL (4.70-6.10); White Blood Count 8.95 K/ul (4.8-10.8)
--- NOTE | 2022-08-04 07:11 | XRay Report ---
XR chest 1V portable HISTORY: 72 years-old Male Dyspnea acute shortness of breath COMPARISON: 10/31/2021 TECHNIQUE: AP view of the chest FINDINGS: Left-sided calcified pleural plaques redemonstrated. The cardiac silhouette is enlarged. Atherosclero sis with tortuosity of the thoracic aorta again noted. Chronic interstitial coarsening. There is no p neumothorax, pleural effusion, airspace consolidation or overt pulmonary edema. Degenerative changes of the shoulders and spine. IMPRESSION: Chronic findings as above without acute process. ACT 112: Negative or not required by law. The above report was generated using voice recognition software. It may contain grammatical, syntax o r spelling errors. Electronically signed by: Dawson Degroot M.D. 08/04/2022 7:10 AM
[2022-08-04 07:13] LABS: Albumin Globulin Ratio 1.2 (0.9-2); Albumin Level 4.2 gm/dl (3.4-5.0); BUN Creatinine Ratio 12.2 (10-20); Bilirubin,Total 0.5 mg/dl (0.2-1.0); Calcium 9.4 mg/dl (8.6-10.3); Creatinine Clr Calc Pharmacy 33.3 ml/min; Est GFR (African American) 34.3 ml/min; Est GFR (Non-African American) 29.6 ml/min; Globulin 3.6 gm/dl (2.5-4.0); Potassium 4.2 mmol/L (3.5-5.1); Total Protein 7.8 gm/dl (6.0-8.3)
[2022-08-04 07:38] LABS: Adenovirus PCR Not Detected (NotDetected); Bordetella parapertussis PCR Not Detected (NotDetected); Bordetella pertussis PCR Not Detected (NotDetected); Chlamydia pneumoniae PCR Not Detected (NotDetected); Coronavirus 229E PCR Not Detected (NotDetected); Coronavirus CoV-2 (COVID19)PCR Not Detected (NotDetected); Coronavirus HKU1 PCR Not Detected (NotDetected); Coronavirus NL63 PCR Not Detected (NotDetected); Coronavirus OC43PCR Not Detected (NotDetected); Human Metapneumovirus PCR Not Detected (NotDetected); Influenza A PCR Not Detected (NotDetected); Influenza B PCR Not Detected (NotDetected); Mycoplasma pneumoniae PCR Not Detected (NotDetected); Parainfluenza Virus 1 PCR Not Detected (NotDetected); Parainfluenza Virus 2 PCR Not Detected (NotDetected); Parainfluenza Virus 3 PCR Not Detected (NotDetected); Parainfluenza Virus 4 PCR Not Detected (NotDetected); Respiratory Syncytial VirusPCR Not Detected (NotDetected); Rhinovirus/Enterovirus PCR Not Detected (NotDetected)
[2022-08-04 07:42] LABS: Base Excess VBG -0.3 mEq/L; HCO3 VBG 25 mmol/L; Oxygen Saturation VBG < 60.0 %; PCO2 VBG 45 mmHg (38-50); PO2 VBG 25 mmHg; pH VBG 7.36 (7.36-7.41)
[2022-08-04 08:15] LABS: Troponin I High Sensitivity 23.7 pg/ml (0-20)
--- NOTE | 2022-08-04 11:26 | History & Physical Report ---
Date of Service August 04, 2022 Assessment & Plan (1) Acute respiratory failure with hypoxia: (2) Bronchitis: Plan: Admit to telemetry Patient presenting from home with reports of shortness of breath minimal exertion, cough, wheezing. In the ED, patient hypoxic on room air at 89%. Currently saturating well on 2 L of oxygen via nasal cannula. No infiltrate noted on CXR. Respiratory viral panel negative. Remote history of smoking -- ?? Underlying COPD Likely bronchitis and/or seasonal allergies-- will treat conservatively with nebs, Mucinex, p.o. prednisone, short course of Augmentin Wean O2 as able (3) Aortic stenosis: (4) Aneurysm: Plan: History of severely calcified aortic valve with severe aortic stenosis, thoracic aortic atherosclerosis, densely calcified coronary arteries, aneurysm outpouching of aortic arch. CT chest without contrast 06/25/2022 - Ectatic brachiocephalic artery proximally again noted. 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 Ascending thoracic aorta at the level of the right pulmonary artery 4.2 cm unchanged. 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 Descending thoracic aorta at the level of the left atrium again up to 4.7 cm. Was scheduled at [facility] today for cardiac catheterization for preop eval for aortic valve intervention. Discussed with Dr. Levy, will obtain limited echo to evaluate aorta given above aneurysms. Low suspicion for dissection given lack of pain and equal BPs in upper extremities. Given underlying CKD and plan for upcoming cath, would avoid dye load for CTA. Dr. Yu at [facility] notified of admission. Cath will be rescheduled for a later date. Ok to resume Eliquis. Discussed with cardiac cath scheduler conveyor at [facility] --they will coordinate with outpatient [facility] cardiology clinic to reschedule cath (likely mid August). (5) Recurrent cerebrovascular accidents (CVAs): Plan: In the setting of shaggy aortic syndrome. On Eliquis however on hold since 08/01 due to cath scheduled for today. Resuming Eliquis as above. Continue Plavix and statin. (6) Paroxysmal ventricular tachycardia: (7) PSVT (paroxysmal supraventricular tachycardia): Plan: Continue metoprolol (8) CKD (chronic kidney disease), stage III: Plan: Baseline creat ~ 2.0 Creat 2.1 today Continue to monitor renal function (9) Hypertension: Plan: BP controlled, continue amlodipine and metoprolol (10) ANDREW (iron deficiency anemia): Plan: Receives iron infusions, last infusion on 07/30/2022 Hgb stable today at 10.8 DVT PROPHYLAXIS On Eliquis I spent a total of 90 minutes coordinating, documenting, and providing care for this patient excluding time spent in the performance of separately billed services. This included personally reviewing all current laboratories and imaging studies, medication reconciliation, outpatient chart review, and discussion with specialists. 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 tach noted on ZIO monitor, history of AAA s/p repair, and other problems listed below who presents to the ED for evaluation of cough, shortness of breath, wheezing. History obtained from the patient and my personal review of outpatient PCP and cardiology records. Patient reports his symptoms began 10 days ago. Patient reports chronic sinus congestion that has worsened. Cough has been productive for white, thick sputum. Reports of shortness of breath with minimal exertion. No orthopnea or lower extremity edema. Denies chest pain and back pain. No lightheadedness, dizziness, diaphoresis, syncopal events. Denies fevers and chills. No abdominal pain, nausea, vomiting, diarrhea. Reports urinary frequency which is new for him. In the ED, patient was hypoxic on room air at 89%. Labs unremarkable/at patient's baseline. CXR unremarkable for acute findings. Respiratory viral panel negative. Patient was given nebulizer treatment and IV Solu-Medrol. Allergies Allergy/AdvReac Type Severity Reaction Status Date / Time RUBENS Inhibitors AdvReac Intermediate DROPS Verified 03/03/22 08:02 BLOOD PRESSURE lisinopril AdvReac Intermediate DROPS Verified 03/03/22 08:02 BLOOD PRESSURE Home Medications Medication Instructions Recorded Confirmed Type atorvastatin 80 mg tablet 80 mg PO QPM 03/25/19 08/04/22 History clopidogrel 75 mg tablet 75 mg PO QAM 03/25/19 08/04/22 History fluticasone propionate 50 2 spray intranasal DAILY PRN 03/25/19 08/04/22 History mcg/actuation nasal Congestion spray,suspension cholecalciferol (vitamin D3) 50 2,000 unit PO QAM 06/10/20 08/04/22 History mcg (2,000 unit) capsule (D3-2000) apixaban 5 mg tablet (Eliquis) 5 mg PO BID #60 tabs 06/15/20 08/04/22 Rx amlodipine 2.5 mg tablet 2.5 mg PO QAM 12/30/20 08/04/22 History iron,carbonyl 65 mg-vitamin C 125 1 tab PO QAM 12/30/20 08/04/22 History mg tablet,delayed release (Vitron-C) albuterol sulfate 90 mcg/actuation 2 puff inhalation QID PRN Wheezing 10/31/21 08/04/22 History aerosol inhaler allopurinol 300 mg tablet 150 mg PO QAM 10/31/21 08/04/22 History metoprolol tartrate 25 mg tablet 12.5 mg PO BID 10/31/21 08/04/22 History ferrous sulfate 325 mg (65 mg 325 mg PO QAM 02/25/22 08/04/22 History iron) tablet,delayed release pantoprazole 40 mg tablet,delayed 40 mg PO QAM 02/25/22 08/04/22 History release ezetimibe 10 mg tablet 10 mg PO DAILY 08/04/22 08/04/22 History Past Med/Surg History Medical History (Updated 08/04/22 @ 11:40 by YARA Blevins) Aneurysm CT chest w/o contrast 06/25/22 - Aneurysmal dilatation of the proximal left subclavian artery up to 2.7 cm unchanged. Ascending thoracic aorta at the level of the right pulmonary artery 4.2 cm unchanged. 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 Descending thoracic aorta at the level of the left atrium again up to 4.7 cm. Aortic stenosis Thoracic aortic atherosclerosis, densely calcified coronary arteries, severely calcified aortic valve, aneurysmal outpouching of the aortic arch. CKD (chronic kidney disease), stage III follows with [facility] nephrology Gastric ulcer Hearing deficit BL NAILS History of GI bleed Hx of gout Hx SBO Hyperlipidemia Hypertension ANDREW (iron deficiency anemia) Obesity Paroxysmal ventricular tachycardia 19 beat run of ventricular tachycardia via Zio monitoring PFO (patent foramen ovale) per records. follows with Dr. 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 TO HAVE SLIGHT BALANCE ISSUES Surgical History History of esophagogastroduodenoscopy (EGD) History of lumbar surgery 1999 History of tonsillectomy History of tonsillectomy and adenoidectomy History of tooth extraction Hx of colonoscopy Hx of hernia repair lysis of adhesions, incisional hernia repair laparoscopically 01/28/2010 at [facility] - Dr Desouza S/P AAA repair 01/13/2009 - Dr Suazo ([place] [facility]) Family History Other AAA (abdominal aortic aneurysm) Hypertension No family history of adverse response to anesthesia Social History Smoking Status: Never smoker Tobacco Type: Cigarettes Cigarettes Per Day: Former cigarette. Quit 1998; Second Hand Exposure: No; Hx Alcohol Use: Yes Alcohol type: beer Alcohol type Comment: 3 beers a day Hx Substance Use: No Preferred Language: Burmese Communication Ability: Effective Put In Beat Adjuster Required: No Beliefs That Will Affect Care: None marital status: Current Living Situation: Spouse current occupational status: employed Feels Safe at Home: Yes Assistive Devices: Glasses and Hearing Aid - Bilateral Review of Systems Review of Systems: ROS per HPI, all other systems reviewed and negative Physical Exam Constitutional: WD/WN, vitals as above Eyes: PERRL, conjunctivae normal, anicteric sclerae Respiratory: normal respiratory effort; no respiratory distress Auscultation: + wheezes (Mild, upper anterior lung read) Cardiovascular: Rate/Rhythm: regular rate and regular rhythm Heart Sounds: + murmur (Grade 4/6, systolic) Vessels: normal peripheral pulses Extremities: + edema (Trace edema BLE) Gastrointestinal (Abdomen): normal bowel sounds, soft, nontender, no hepatosplenomegaly Musculoskeletal: no cyanosis or clubbing, extremities motor strength 5/5 Skin: no rashes, warm and dry Neurologic: PERRL, EOMI, accommodation nl, no face palsy, no dysarthria Psychiatric: A+Ox3, euthymic affect Results & Data Results & Data Vital Signs (Past 12 Hours) Vital Signs Temp Pulse Resp BP Pulse Ox O2 Del Method O2 Flow Rate 08/04/22 10:12 79 08/04/22 08:00 76 22 150/75 H 95 Nasal Cannula 2 08/04/22 07:58 89 L Room Air 08/04/22 07:45 72 26 H 125/68 93 Room Air 08/04/22 07:00 77 27 H 113/65 96 Nasal Cannula 4 08/04/22 07:28 98 Nasal Cannula 4 08/04/22 06:26 77 18 98 Nasal Cannula 2 08/04/22 06:15 81 08/04/22 06:07 Nasal Cannula 2 08/04/22 06:07 36.7 C 94 H 35 H 178/102 H 97 Nasal Cannula 2 Laboratory Results Short CBC 08/04/22 Range/Units 06:20 WBC 8.95 (4.8-10.8) K/ul Hgb 10.8 L (14.0-18.0) g/dl Hct 34.7 L (42.0-52.0) % Plt Count 141 (130-400) K/uL BMP 08/04/22 06:20 Sodium 141 Potassium 4.2 Chloride 106 Carbon Dioxide 25 BUN 26 H Creatinine 2.13 H Glucose 107 H Calcium 9.4 Liver Function 08/04/22 Range/Units 06:20 Total Bilirubin 0.5 (0.2-1.0) mg/dl AST 21 (13-39) U/L ALT 14 (7-52) U/L Alkaline Phosphatase 99 (34-104) U/L Albumin 4.2 (3.4-5.0) gm/dl Diagnostic Findings Chest X-Ray 08/04/22 06:13 XR chest 1V portable HISTORY: 72 years-old Male Dyspnea acute shortness of breath COMPARISON: 10/31/2021 TECHNIQUE: AP view of the chest FINDINGS: Left-sided calcified pleural plaques redemonstrated. The cardiac silhouette is enlarged. Atherosclerosis with tortuosity of the thoracic aorta again noted. Chronic interstitial coarsening. There is no pneumothorax, pleural effusion, airspace consolidation or overt pulmonary edema. Degenerative changes of the shoulders and spine. IMPRESSION: Chronic findings as above without acute process. ACT 112: Negative or not required by law. The above report was generated using voice recognition software. It may contain grammatical, syntax or spelling errors. Electronically signed by: Dwason Degroot M.D. 08/04/2022 7:10 AM Code Status & VTE Plan VTE Prophylaxis Plan VTE Prophylaxis will be ordered: Yes Supervising Physician Co-Signing Physician Notes Attending addendum: The patient was seen and examined in emergency room He has been complaining of cough with shortness of breath for the last 1 week Denies any fever and or chills, denies any chest pain and/or palpitation and no increase in leg swelling Has whitish-yellow productive cough He was supposed to be in [place] today for a cardiac cath to evaluate his valvular heart surgery down the line On examination No apparent distress at rest Has been saturating normally on 2 L of nasal cannula Remains hemodynamically stable Chest-occasional wheezing but no crackles Heart-S1-S2 with a 2/6 ESM over precordium Abdomen-benign, distended and soft Extremities-trace to 1+ edema bilaterally His admission labs, EKG and imaging studies reviewed Likely has acute bronchitis-no pneumonia and will treat symptomatically and start Augmentin as this has been going on for a long time Valvular heart disease-discussed with baby nurse in [place] and will have cardiac cath sometime later Agree with assessment and plan as outlined above by Jaylin Wheeler
[2022-08-04 11:34] LABS: Appearance Urine Clear (Clear); Bacteria Urine Automated Negative (Negative); Bilirubin Urine Negative (Negative); Blood Urine Negative (Negative); Color Urine Yellow; Glucose Urine UA Negative (Negative); Ketones Urine Trace (Negative); Leukocyte Esterase Urine Negative (Negative); Nitrite Urine Negative (Negative); Protein Urine 3+ (Negative); RBC Urine Automated 0-4 /hpf (0-4); Specific Gravity Urine 1.017 (1.000-1.030); Urobilinogen Urine Negative (Negative)
[2022-08-04] MEDS ORDERED: ACETAMINOPHEN 325 MG TAB PO PRN (13:24)
[2022-08-04] MEDS ORDERED: HYDROcodone/HOMATROPINE SYRUP 5MG/1.5MG 5ML UDP PO PRN (13:24)
--- NOTE | 2022-08-04 13:24 | Electrocardiogram Report ---
Test Reason : Blood Pressure : / mmHG Vent. Rate : 075 BPM Atrial Rate : 075 BPM P-R Int : 132 ms QRS Dur : 090 ms QT Int : 422 ms P-R-T Axes : -12 036 046 degrees QTc Int : 471 ms Poor data quality, interpretation may be adversely affected Normal sinus rhythm Normal ECG When compared with ECG of 31-OCT-2021 16:41, No significant change was found Confirmed by Robby Mccoy ([id number]) on 08/04/2022 1:24:06 PM Referred By: REFERRED SELF Confirmed By:Uriel Mccoy
[2022-08-04] MEDS: ALBUT/IPRATROP 3MG/0.5MG NEB 3 ML VIAL NEB SCH ×3 (13:57→20:30)
[2022-08-04] MEDS: AMOXICILLIN/CLAVULANATE 875 MG TAB PO SCH ×2 (14:21→16:30)
[2022-08-04] MEDS: guaiFENesin 600 MG TABCR PO SCH ×2 (14:21→20:07)
[2022-08-04] MEDS: ATORVASTATIN 40 MG TAB PO SCH (20:05)
[2022-08-04] MEDS: APIXABAN 5 MG TABLET PO SCH (20:05)
[2022-08-04] MEDS: METOPROLOL TARTRATE 25 MG TAB PO SCH (20:06)
[2022-08-05] MEDS: ALBUT/IPRATROP 3MG/0.5MG NEB 3 ML VIAL NEB SCH ×4 (05:25→19:04)
[2022-08-05 06:08] LABS: Hematocrit (blood only) 29.8 % (42.0-52.0); Hemoglobin 9.4 g/dl (14.0-18.0); Mean Corpuscular Hemoglobin 30.3 pg (25.0-34.0); Mean Corpuscular Hgb Conc 31.5 g/dL (32.0-36.0); Mean Corpuscular Volume 96.1 fL (80.0-100.0); Mean Platelet Volume 10.8 fL (9.4-12.4); Platelet Count 178 K/uL (130-400); RDW Standard Deviation 61.1 fL (36.4-46.3); White Blood Count 18.26 K/ul (4.8-10.8)
[2022-08-05 06:31] LABS: Calcium 9.3 mg/dl (8.6-10.3); Potassium 4.7 mmol/L (3.5-5.1)
[2022-08-05 06:43] LABS: BUN Creatinine Ratio 20.9 (10-20); Creatinine Clr Calc Pharmacy 30.9 ml/min; Est GFR (African American) 31.3 ml/min
[2022-08-05] MEDS: METOPROLOL TARTRATE 25 MG TAB PO SCH ×2 (07:53→20:25)
[2022-08-05] MEDS: AMOXICILLIN/CLAVULANATE 875 MG TAB PO SCH (07:53)
[2022-08-05] MEDS: guaiFENesin 600 MG TABCR PO SCH ×2 (07:54→20:26)
[2022-08-05] MEDS: amLODIPine BESYLATE 5 MG TAB PO SCH (07:54)
[2022-08-05] MEDS: EZETIMIBE 10 MG TABLET PO SCH (07:54)
[2022-08-05] MEDS: allopurinoL 300 MG TAB PO SCH (07:55)
[2022-08-05] MEDS: PANTOprazole 40 MG TAB PO SCH (07:55)
[2022-08-05] MEDS: APIXABAN 5 MG TABLET PO SCH ×2 (07:55→20:25)
[2022-08-05] MEDS: CLOPIDOGREL BISULFATE 75 MG TAB PO SCH (07:55)
[2022-08-05] MEDS: FERROUS SULFATE 325 MG TAB PO SCH (07:55)
[2022-08-05] MEDS: predniSONE 20 MG TAB PO SCH (07:56)
[2022-08-05] MEDS: SODIUM CHLORIDE 0.9% 1000ML 1,000 ML IV SCH ×2 (09:00→22:46)
--- NOTE | 2022-08-05 15:07 | Hospitalist Progress Note ---
Date of Service August 05, 2022 Assessment & Plan (1) Acute respiratory failure with hypoxia: (2) Aortic stenosis: (3) Aneurysm: (4) Recurrent cerebrovascular accidents (CVAs): (5) Paroxysmal ventricular tachycardia: (6) PSVT (paroxysmal supraventricular tachycardia): (7) CKD (chronic kidney disease), stage III: (8) Hypertension: (9) ANDREW (iron deficiency anemia): (10) Hyperlipidemia: (11) Wide-complex tachycardia: (12) COPD (chronic obstructive pulmonary disease): (13) GERD (gastroesophageal reflux disease): (14) Gout: (15) Acute on chronic kidney failure: Plan Pt is a 72 yo gentleman with a remote chronic Hx of tobacco use, cardiac Hx significant for aortic stenosis, paroxysmal/wide complex ventricular tachycardia, Hx of stroke, HTN, CKD, HLD and iron deficiency anemia who is currently admitted with acute respiratory failure with hypoxia in the setting of likely COPD exacerbation. Acute Respiratory failure with hypoxia -Had one saturation of 89% -Currently saturating >90% on 2L -Chest XRAY with no acute changes, resp panel wnl -continue duoneb breathing treatments scheduled due to persistent wheezing. -daily -Wean oxygen as tolerated COPD Exacerbation -suspected based on symptoms and clinical Hx -Chart review shows no official diagnosis, consider PFT testing outpatient. -Switched Augmentin to Azithromycin 500mg daily for 3 days -Continue with prednisone burst -started on daily inhaler use- breo -continue hycodan, mucinex for symptomatic relief Aortic stenosis -following with specialty Gout -continue home allopurinol Acute on chronic kidney disease -started on IVF -continue to monitor kidney function HTN -continue home amlodipine GERD -continue home ppi iron deficiency anemia - continue irn supplementation HLD -on zetia Hx of CVA -continue home plavix and eliquis, zetia PSVT, PVT -continue home metoprolol Code status: Full code Diet: HH DVT prophylaxis: On home eliquis and plavix Dispo: PCU/tele, consider downgrade if symptoms improving in AM Admission and Anticipated Discharge Date Admission Date: August 04, 2022 Subjective Pt seen this morning. Still having coughing fits but states that his breathing is much better. Coughing productive of white mucus. States the breathing treatments have been helping. Notes he is still wheezing, denied SOB at the time. States that he quit smoking in the 90s after smoking for 20+ years. Review of Systems Respiratory: + cough and + wheezing; no dyspnea Physical Exam Physical Exam: General: Alert, oriented.Coughing in the room. Skin: No noted rashes or bruises Psych: Appropriate mood and affect Neuro: No gross deficits HEENT: NC/AT CV: RRR Resp: Breath sounds with wheezing bilaterally Abdomen: Soft, nontender, nondistended. Extremities: Trace edema in lower extremities bilaterally. Results & Data Results & Data Vital Signs (Past 12 Hours) Vital Signs Temp Pulse Pulse Pulse Resp BP Pulse Ox 08/05/22 11:12 36.7 C 70 16 112/65 94 08/05/22 10:53 74 15 92 08/05/22 09:00 65 08/05/22 09:00 08/05/22 07:42 36.5 C 91 H 18 160/87 H 93 08/05/22 05:28 71 19 96 08/05/22 05:25 19 O2 Del Method O2 Flow Rate 08/05/22 11:12 Nasal Cannula 2 08/05/22 10:53 Nasal Cannula 3 08/05/22 09:00 08/05/22 09:00 Nasal Cannula 3 08/05/22 07:42 Nasal Cannula 3 08/05/22 05:28 CPAP 3 08/05/22 05:25 3
[2022-08-05] MEDS: FLUTICASONE/VILANTEROL 200/25MCG 14 PUFFS/INHALER INH SCH (17:00)
[2022-08-05] MEDS ORDERED: ALBUT/IPRATROP 3MG/0.5MG NEB 3 ML VIAL NEB STA (20:16)
[2022-08-05] MEDS ORDERED: MAGNESIUM SULFATE / D5W 1 GM/100 ML BAG IV ONE (20:17)
[2022-08-05] MEDS: ATORVASTATIN 40 MG TAB PO SCH (20:24)
[2022-08-06] MEDS: ALBUT/IPRATROP 3MG/0.5MG NEB 3 ML VIAL NEB SCH ×4 (07:10→19:26)
--- NOTE | 2022-08-06 07:31 | XRay Report ---
XR chest 1V portable HISTORY: wheeze COMPARISON: Chest 08/04/2022. FINDINGS: Left-sided calcified pleural plaques again noted. No pneumothorax. No pleural effusions. Th e cardiac silhouette remains borderline enlarged. There is a tortuous thoracic aorta again noted. No new focal lung consolidations to suggest a pneumonia. No evidence for pulmonary edema. IMPRESSION: No significant change compared to the prior study. No acute process. ACT 112: Negative or not required by law. Electronically signed by: Angel Mak M.D. 08/06/2022 7:29 AM
[2022-08-06] MEDS: predniSONE 20 MG TAB PO SCH (08:00)
[2022-08-06] MEDS: EZETIMIBE 10 MG TABLET PO SCH (08:00)
[2022-08-06] MEDS: APIXABAN 5 MG TABLET PO SCH ×2 (08:00→20:03)
[2022-08-06] MEDS: METOPROLOL TARTRATE 25 MG TAB PO SCH ×2 (08:00→20:01)
[2022-08-06] MEDS: amLODIPine BESYLATE 5 MG TAB PO SCH (08:01)
[2022-08-06] MEDS: FERROUS SULFATE 325 MG TAB PO SCH (08:01)
[2022-08-06] MEDS: PANTOprazole 40 MG TAB PO SCH (08:01)
[2022-08-06] MEDS: CLOPIDOGREL BISULFATE 75 MG TAB PO SCH (08:01)
[2022-08-06] MEDS: guaiFENesin 600 MG TABCR PO SCH ×2 (08:01→20:02)
[2022-08-06] MEDS: AZITHROMYCIN 250 MG TAB PO SCH (08:02)
[2022-08-06] MEDS: allopurinoL 300 MG TAB PO SCH (08:02)
[2022-08-06] MEDS: FLUTICASONE/VILANTEROL 200/25MCG 14 PUFFS/INHALER INH SCH (08:03)
[2022-08-06 08:07] LABS: Basophils # (auto) 0.05 K/uL (0-0.2); Basophils % (auto) 0.3 %; Eosinophils # (auto) 0.06 K/uL (0-0.50); Eosinophils % (auto) 0.4 %; Hematocrit (blood only) 29.7 % (42.0-52.0); Immature Granulocytes % (auto) 0.7 %; Lymphocytes # (auto) 1.54 K/uL (1.2-3.4); Lymphocytes % (auto) 10.6 %; Mean Corpuscular Hemoglobin 30.4 pg (25.0-34.0); Mean Corpuscular Hgb Conc 30.3 g/dL (32.0-36.0); Mean Corpuscular Volume 100.3 fL (80.0-100.0); Mean Platelet Volume 10.3 fL (9.4-12.4); Monocytes # (auto) 0.86 K/uL (0.11-0.59); Monocytes % (auto) 5.9 %; Neutrophils # (auto) 11.93 K/uL (1.40-6.50); Neutrophils % (auto) 82.1 %; Platelet Count 244 K/uL (130-400); RDW Coefficient of Variation 18.1 % (11.5-14.5); RDW Standard Deviation 66.8 fL (36.4-46.3); Red Blood Count 2.96 M/uL (4.70-6.10); White Blood Count 14.54 K/ul (4.8-10.8)
[2022-08-06 08:23] LABS: BUN Creatinine Ratio 23.7 (10-20); Calcium 8.8 mg/dl (8.6-10.3); Creatinine Clr Calc Pharmacy 32.1 ml/min; Est GFR (African American) 34.7 ml/min; Est GFR (Non-African American) 29.9 ml/min; Potassium 3.9 mmol/L (3.5-5.1)
[2022-08-06] MEDS: SODIUM CHLORIDE 0.9% 1000ML 1,000 ML IV SCH ×2 (11:12→23:54)
--- NOTE | 2022-08-06 18:47 | Hospitalist Progress Note ---
Date of Service August 06, 2022 Assessment & Plan (1) Acute respiratory failure with hypoxia: (2) Aortic stenosis: (3) Aneurysm: (4) Recurrent cerebrovascular accidents (CVAs): (5) Paroxysmal ventricular tachycardia: (6) PSVT (paroxysmal supraventricular tachycardia): (7) CKD (chronic kidney disease), stage III: (8) Hypertension: (9) ANDREW (iron deficiency anemia): (10) Hyperlipidemia: (11) Wide-complex tachycardia: (12) COPD (chronic obstructive pulmonary disease): (13) GERD (gastroesophageal reflux disease): (14) Gout: (15) Acute on chronic kidney failure: Plan Pt is a 72 yo gentleman with a remote chronic Hx of tobacco use, cardiac Hx significant for aortic stenosis, paroxysmal/wide complex ventricular tachycardia, Hx of stroke, HTN, CKD, HLD and iron deficiency anemia who is currently admitted with acute respiratory failure with hypoxia in the setting of likely COPD exacerbation. Acute Respiratory failure with hypoxia -Had one saturation of 89% -Currently saturating well -repeat chest XRAY with no acute changes -continue duoneb breathing treatments scheduled due to persistent wheezing. -daily Breo ordered -Wean oxygen as tolerated COPD Exacerbation -suspected based on symptoms and clinical Hx -Chart review shows no official diagnosis, consider PFT testing outpatient. -Continue Azithromycin 500mg daily for 3 days total -Continue with prednisone burst -started on daily inhaler use- breo -continue hycodan, mucinex for symptomatic relief Aortic stenosis -following with specialty Gout -continue home allopurinol Acute on chronic kidney disease -started on IVF -continue to monitor kidney function HTN -continue home amlodipine GERD -continue home ppi iron deficiency anemia - continue iron supplementation HLD -on zetia Hx of CVA -continue home plavix and eliquis, zetia PSVT, PVT -continue home metoprolol Code status: Full code Diet: HH DVT prophylaxis: On home eliquis and plavix Dispo: PCU/tele, consider downgrade/discharge if symptoms improving Admission and Anticipated Discharge Date Admission Date: August 04, 2022 Subjective Pt seen this morning. States feeling better. Had a coughing fit overnight and repeat chest xray showed no change. States that his breathing is much better. States the breathing treatments have been helping. Denies SOB. Review of Systems Review of Systems: All systems reviewed & are unremarkable except as noted in Subjective Physical Exam Physical Exam: General: Alert, oriented. Resting comfortably.. Skin: No noted rashes or bruises Psych: Appropriate mood and affect Neuro: No gross deficits HEENT: NC/AT CV: RRR, murmur noted Resp: Breath sounds with slight wheezing bilaterally Abdomen: Soft, nontender, nondistended. Extremities: Trace edema in lower extremities bilaterally. Results & Data Results & Data Vital Signs (Past 12 Hours) Vital Signs Temp Pulse Pulse Pulse Resp BP Pulse Ox 08/06/22 14:04 72 08/06/22 16:00 35.9 C L 72 18 138/73 96 08/06/22 15:07 68 20 93 08/06/22 14:32 61 08/06/22 11:55 36.4 C L 66 18 142/71 H 92 08/06/22 11:15 80 18 94 08/06/22 07:30 08/06/22 07:42 36.3 C L 69 20 168/82 H 94 08/06/22 07:11 65 20 95 O2 Del Method O2 Flow Rate 08/06/22 14:04 08/06/22 16:00 Nasal Cannula 3 08/06/22 15:07 Nasal Cannula 2.5 08/06/22 14:32 08/06/22 11:55 Nasal Cannula 3 08/06/22 11:15 Nasal Cannula 3 08/06/22 07:30 Nasal Cannula 2 08/06/22 07:42 Nasal Cannula 2 08/06/22 07:11 Nasal Cannula 2.5
[2022-08-06] MEDS: ATORVASTATIN 40 MG TAB PO SCH (20:03)
[2022-08-07] MEDS ORDERED: HYDROmorphone INJ 0.5 MG/0.5 ML SYR IV STA (03:13)
[2022-08-07] MEDS ORDERED: HYDROmorphone INJ 0.5 MG/0.5 ML SYR IV PRN (03:13)
[2022-08-07] MEDS ORDERED: amLODIPine BESYLATE 5 MG TAB PO SCH (03:15)
--- NOTE | 2022-08-07 06:49 | Communication Note ---
Date of Service: August 07, 2022 Patient with with new RLQ pain complaints as per RN. No overt bleeding. AP RLQ pain CT abdomen pelvis Check UA N.p.o., hold Eliquis until CT results known
[2022-08-07] MEDS: ALBUT/IPRATROP 3MG/0.5MG NEB 3 ML VIAL NEB SCH ×4 (07:12→19:23)
[2022-08-07] MEDS ORDERED: LABETALOL HCL IV 5 MG/ML 20ML IV STA (07:47)
--- NOTE | 2022-08-07 07:57 | CT Scan Report ---
Exam(s): CT ABDOMEN + PELVIS Without Contrast EXAM: CT Abdomen and Pelvis Without Intravenous Contrast CLINICAL HISTORY: Reason for exam: RLQ pain. TECHNIQUE: Axial computed tomography images of the abdomen and pelvis without intravenous contrast. Automated exposure control was utilized for the study. A dose lowering technique was utilized adhering to the principles of ALARA. COMPARISON: No relevant prior studies available. FINDINGS: Limitations: Limited evaluation in the absence of contrast. Lung bases: Unremarkable. No mass. No consolidation. Heart: Coronary artery calcifications. ABDOMEN: Liver: Unremarkable. Gallbladder and bile ducts: Unremarkable. No calcified stones. No ductal dilation. Pancreas: Unremarkable. No ductal dilation. Spleen: Unremarkable. No splenomegaly. Adrenals: Unremarkable. No mass. Kidneys and ureters: Unremarkable. No evidence of radiopaque renal calculi or signs of collecting system dilatation. Stomach and bowel: Colonic diverticulosis. No evidence of diverticulitis. No evidence of bowel obstruction. PELVIS: Appendix: Normal appendix. Bladder: Unremarkable. No stones. Reproductive: Unremarkable as visualized. ABDOMEN and PELVIS: Intraperitoneal space: Unremarkable. No free air. No significant fluid collection. Bones/joints: Degenerative changes in the spine. L5-S1 posterior spinal fusion hardware with respective laminectomy changes. No acute fracture. No dislocation. Soft tissues: Right inguinal hernia containing fat. Umbilical hernia containing fat. Ventral hernia mesh. Vasculature: Infrarenal abdominal aortic aneurysm measuring 3.5 cm in diameter. Atherosclerotic disease. Lymph nodes: Unremarkable. No enlarged lymph nodes. IMPRESSION: 1. Limited evaluation in the absence of contrast. 2. No evidence of radiopaque renal calculi or signs of collecting system dilatation. 3. Normal appendix. 4. No other acute findings. 5. Incidental findings as described. Electronically signed by: Zeyad Delong MD 08/07/22 07:56 AM
[2022-08-07 08:01] LABS: Basophils # (auto) 0.02 K/uL (0-0.2); Basophils % (auto) 0.1 %; Eosinophils % (auto) 0.7 %; Hematocrit (blood only) 31.1 % (42.0-52.0); Hemoglobin 9.5 g/dl (14.0-18.0); Immature Granulocytes # (auto) 0.12 K/uL (0.01-0.20); Immature Granulocytes % (auto) 0.8 %; Lymphocytes % (auto) 9.5 %; Mean Corpuscular Hemoglobin 30.5 pg (25.0-34.0); Mean Corpuscular Hgb Conc 30.5 g/dL (32.0-36.0); Mean Platelet Volume 11.3 fL (9.4-12.4); Monocytes # (auto) 1.04 K/uL (0.11-0.59); Neutrophils # (auto) 12.12 K/uL (1.40-6.50); Neutrophils % (auto) 81.9 %; Platelet Count 166 K/uL (130-400); RDW Coefficient of Variation 18.1 % (11.5-14.5); RDW Standard Deviation 65.1 fL (36.4-46.3); Red Blood Count 3.11 M/uL (4.70-6.10)
[2022-08-07 08:17] LABS: Calcium 8.7 mg/dl (8.6-10.3); Creatinine Clr Calc Pharmacy 32.3 ml/min; Est GFR (African American) 34.9 ml/min; Est GFR (Non-African American) 30.1 ml/min; Potassium 4.3 mmol/L (3.5-5.1)
[2022-08-07] MEDS: EZETIMIBE 10 MG TABLET PO SCH (08:32)
[2022-08-07] MEDS: guaiFENesin 600 MG TABCR PO SCH ×2 (08:33→21:39)
[2022-08-07] MEDS: allopurinoL 300 MG TAB PO SCH (08:34)
[2022-08-07] MEDS: FERROUS SULFATE 325 MG TAB PO SCH (08:35)
[2022-08-07] MEDS: AZITHROMYCIN 250 MG TAB PO SCH (08:35)
[2022-08-07] MEDS: CLOPIDOGREL BISULFATE 75 MG TAB PO SCH (08:35)
[2022-08-07] MEDS: METOPROLOL TARTRATE 25 MG TAB PO SCH ×2 (08:36→21:37)
[2022-08-07] MEDS: FLUTICASONE/VILANTEROL 200/25MCG 14 PUFFS/INHALER INH SCH (08:36)
[2022-08-07] MEDS: predniSONE 20 MG TAB PO SCH (08:37)
[2022-08-07] MEDS: PANTOprazole 40 MG TAB PO SCH (08:37)
[2022-08-07] MEDS ORDERED: bisacodyL 10 MG SUPP PR STA (09:03)
[2022-08-07] MEDS ORDERED: LACTULOSE SYRUP 30 GM/45 ML UDP PO STA (09:03)
--- NOTE | 2022-08-07 09:41 | Hospitalist Progress Note ---
Date of Service August 07, 2022 Assessment & Plan (1) Acute respiratory failure with hypoxia: Plan: Pt is a 72 yo gentleman with a remote chronic Hx of tobacco use, cardiac Hx significant for aortic stenosis, paroxysmal/wide complex ventricular tachycardia, Hx of stroke, HTN, CKD, HLD and iron deficiency anemia admitted with acute respiratory failure with hypoxia in the setting of likely COPD exacerbation. Acute Respiratory failure with hypoxia Seems on presentation had saturation of 89% cxr ok Daily Breo ordered Will Wean oxygen as tolerated Doing fine today COPD Exacerbation suspected based on symptoms and clinical Hx PFT testing outpatient. On Azithromycin 500mg daily for 3 days total ON short course of prednisone on breo on hycodan, mucinex prn will continue to monitor Abdominal Pain Ct abd/pelvis ok has RUQ abdominal pain will follow gall bladder US Constipation stool softeners. Aortic stenosis Needs followup Gout on allopurinol Acute on chronic kidney disease on IVF Will monitor kidney function HTN on amlodipine and lopressor will monitor GERD on ppi iron deficiency anemia to continue iron supplementation HLD -on zetia Hx of CVA on plavix and eliquis, zetia PSVT, PVT on home metoprolol (2) Acute on chronic kidney failure: (3) PSVT (paroxysmal supraventricular tachycardia): (4) Recurrent cerebrovascular accidents (CVAs): (5) Wide-complex tachycardia: Admission and Anticipated Discharge Date Admission Date: August 04, 2022 Subjective Complains of abdominal pain in right upper quadrant since last night.still has the pain. no nausea says constipated had small hard stools yesterday afebrile. breathing is better no chest pain resting comfortably Review of Systems Review of Systems: As Above Physical Exam Eyes: EOMI Neck: trachea midline, no thyromegaly Respiratory: normal respiratory effort, lungs clear to auscultation Cardiovascular: RRR, no murmur, no edema Gastrointestinal (Abdomen): RUQ tenderness present, Soft, Bowel sounds present, No distension Neurologic: EOMI Speech is clear no facial droop obeys commands moves extremities Psychiatric: Orientation: alert and cooperative Apperance: appeared stated age Eye Contact: good eye contact Speech: normal rate/rhythm/volume of speech Results & Data Results & Data Vital Signs (Past 12 Hours) Vital Signs Temp Pulse Pulse Pulse Resp BP Pulse Ox 08/07/22 07:13 64 19 98 08/07/22 07:13 64 19 98 08/07/22 07:09 36.4 C L 69 18 97 08/07/22 03:30 36.6 C 70 17 172/89 H 98 08/07/22 03:17 36.3 C L 75 18 194/129 H 99 08/06/22 21:59 74 08/07/22 02:46 16 08/06/22 23:26 36.6 C 80 18 170/83 H 96 O2 Del Method O2 Flow Rate 08/07/22 07:13 CPAP 2 08/07/22 07:13 2 08/07/22 07:09 CPAP 08/07/22 03:30 Nasal Cannula 2 08/07/22 03:17 CPAP 08/06/22 21:59 08/07/22 02:46 2 08/06/22 23:26 CPAP 3
[2022-08-07] MEDS: APIXABAN 5 MG TABLET PO SCH ×2 (09:55→21:38)
--- NOTE | 2022-08-07 12:10 | Ultrasound Report ---
ABDOMINAL ULTRASOUND, RIGHT UPPER QUADRANT HISTORY: Acute right upper quadrant abdominal pain RUQ abd pain. COMPARISON: CT abdomen and pelvis of same day FINDINGS: Pancreas: The pancreas is obscured by bowel gas. Liver: The liver measures 16.8 cm in length. 1.0 cm cyst of the left hepatic lobe. Trace perihepatic ascites. Gallbladder: Mild cholelithiasis. No pericholecystic fluid. The gallbladder wall measures 3 mm. Negat eulalia sonographic Ramirez's sign. CBD: 0.5 cm. Right kidney: No hydronephrosis. IMPRESSION: 1. Cholelithiasis without sonographic evidence of acute cholecystitis. 2. No biliary ductal dilation. ACT 112: Negative or not required by law. Electronically signed by: Dawson Degroot M.D. 08/07/2022 12:07 PM
[2022-08-07 14:04] LABS: Appearance Urine Clear (Clear); Bacteria Urine Automated Negative (Negative); Bilirubin Urine Negative (Negative); Blood Urine Negative (Negative); Color Urine Yellow; Epithelial Cell Urine Auto 0-5 /lpf (0-5); Glucose Urine UA Negative (Negative); Ketones Urine Negative (Negative); Leukocyte Esterase Urine Negative (Negative); Nitrite Urine Negative (Negative); Protein Urine 2+ (Negative); RBC Urine Automated 0-4 /hpf (0-4); Specific Gravity Urine 1.015 (1.000-1.030); Urobilinogen Urine Negative (Negative)
[2022-08-07] MEDS: SODIUM CHLORIDE 0.9% 1000ML 1,000 ML IV SCH (17:29)
[2022-08-07] MEDS: ATORVASTATIN 40 MG TAB PO SCH (21:37)
[2022-08-07] MEDS: DOCUSATE SODIUM/SENNA 50/8.6MG TAB PO SCH (21:40)
[2022-08-08] MEDS: amLODIPine BESYLATE 5 MG TAB PO SCH (03:25)
[2022-08-08 06:31] LABS: Basophils # (auto) 0.03 K/uL (0-0.2); Basophils % (auto) 0.2 %; Eosinophils # (auto) 0.06 K/uL (0-0.50); Eosinophils % (auto) 0.5 %; Hematocrit (blood only) 30.6 % (42.0-52.0); Hemoglobin 9.3 g/dl (14.0-18.0); Immature Granulocytes # (auto) 0.07 K/uL (0.01-0.20); Immature Granulocytes % (auto) 0.6 %; Lymphocytes # (auto) 1.15 K/uL (1.2-3.4); Lymphocytes % (auto) 9.2 %; Mean Corpuscular Hemoglobin 30.4 pg (25.0-34.0); Mean Corpuscular Hgb Conc 30.4 g/dL (32.0-36.0); Mean Platelet Volume 9.9 fL (9.4-12.4); Monocytes # (auto) 0.88 K/uL (0.11-0.59); Monocytes % (auto) 7.1 %; Neutrophils # (auto) 10.28 K/uL (1.40-6.50); Neutrophils % (auto) 82.4 %; Platelet Count 265 K/uL (130-400); RDW Coefficient of Variation 17.7 % (11.5-14.5); RDW Standard Deviation 65.4 fL (36.4-46.3); Red Blood Count 3.06 M/uL (4.70-6.10); White Blood Count 12.47 K/ul (4.8-10.8)
[2022-08-08 06:52] LABS: BUN Creatinine Ratio 19.9 (10-20); Calcium 8.6 mg/dl (8.6-10.3); Creatinine Clr Calc Pharmacy 36.5 ml/min; Est GFR (African American) 40.4 ml/min; Est GFR (Non-African American) 34.9 ml/min; Potassium 4.1 mmol/L (3.5-5.1)
[2022-08-08] MEDS: ALBUT/IPRATROP 3MG/0.5MG NEB 3 ML VIAL NEB SCH ×4 (06:54→19:42)
[2022-08-08] MEDS: METOPROLOL TARTRATE 25 MG TAB PO SCH ×2 (08:23→21:52)
[2022-08-08] MEDS: allopurinoL 300 MG TAB PO SCH (08:23)
[2022-08-08] MEDS: predniSONE 20 MG TAB PO SCH (08:23)
[2022-08-08] MEDS: APIXABAN 5 MG TABLET PO SCH ×2 (08:24→21:55)
[2022-08-08] MEDS: AZITHROMYCIN 250 MG TAB PO SCH (08:24)
[2022-08-08] MEDS: FLUTICASONE/VILANTEROL 200/25MCG 14 PUFFS/INHALER INH SCH (08:24)
[2022-08-08] MEDS: CLOPIDOGREL BISULFATE 75 MG TAB PO SCH (08:24)
[2022-08-08] MEDS: PANTOprazole 40 MG TAB PO SCH (08:24)
[2022-08-08] MEDS: guaiFENesin 600 MG TABCR PO SCH ×2 (08:24→21:53)
[2022-08-08] MEDS: FERROUS SULFATE 325 MG TAB PO SCH (08:24)
[2022-08-08] MEDS: DOCUSATE SODIUM/SENNA 50/8.6MG TAB PO SCH ×2 (08:24→21:55)
[2022-08-08] MEDS: EZETIMIBE 10 MG TABLET PO SCH (08:24)
--- NOTE | 2022-08-08 09:48 | Hospitalist Progress Note ---
Date of Service August 08, 2022 Assessment & Plan (1) Acute respiratory failure with hypoxia: Plan: Pt is a 72 yo gentleman with a remote chronic Hx of tobacco use, cardiac Hx significant for moderate to severe aortic stenosis, paroxysmal/wide complex ventricular tachycardia, Hx of stroke, HTN, CKD, HLD and iron deficiency anemia admitted with acute respiratory failure with hypoxia in the setting of likely COPD exacerbation. Acute Respiratory failure with hypoxia Seems on presentation had saturation of 89% cxr ok Daily Breo ordered Will Wean oxygen as tolerated cough improving ordered pt/ot COPD Exacerbation hx of smoking suspected based on symptoms and clinical Hx PFT testing outpatient. On Azithromycin 500mg daily for 3 days total On prednisone 40mg Daily on breo, duonebs on hycodan, mucinex prn will continue to monitor continue same for now two step prior to discharge RUQ Abdominal Pain Ct abd/pelvis ok Gall bladder US showed gallstones but no cholecystitis Abdominal pain resolved seems after bowel movement tolerating diet fine Constipation stool softeners. moved bowels yesterday and today Aortic moderate to severe stenosis Needs followup Gout on allopurinol Acute on chronic kidney disease Cr 1.8 seems around baseline stopped fluids HTN on amlodipine and Lopressor last night his BP was running high possibly from prednisone will monitor GERD on ppi iron deficiency anemia to continue iron supplementation HLD -on zetia Hx of CVA Hx of recurrent CVA . 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 on plavix and eliquis, zetia PSVT, PVT on home metoprolol asymptomatic 19beat run of v tach on zio monitoring Hx of AAA s/p repair in 2008. Thoracic aortic aneurysm: Recent Ct scan:Aneurysmal dilatation of the proximal left subclavian artery up to 2.7 cm unchanged. Ascending thoracic aorta at the level of the right pulmonary artery 4.2 cm unchanged. 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 Descending thoracic aorta at the level of the left atrium again up to 4.7 cm. Seems plan for surgery by vascular plan for pre op cath. Admitting Doc notified [facility] cardiology about this admission and will reschedule the cath. Anemia Iron deficiency Early stage Waldenstrom Macroglobulinemia Follows with heme/onco GINNY and nocturnal hypoxia uses cpap with 2lt oxygen in night time. Will do pt/ot try to wean oxygen two step prior to discharge possible d/c in 2-3 days DVT px on eliquis. Admission and Anticipated Discharge Date Admission Date: August 04, 2022 Subjective Says did not sleep well last night because of BP running high says cough is better afebrile moved bowels with stool softeners abdominal pain resolved eating ok denies chest pain or sob says cpap with 2lt oxygen while sleeping at home somewhat hard of hearing says his vision in right affected after stroke balance affected after second stroke Review of Systems Review of Systems: As above Physical Exam Constitutional: WD/WN, vitals as above Eyes: EOMI Neck: trachea midline, no thyromegaly Respiratory: normal respiratory effort, + cough and symmetric chest movement Auscultation: lungs clear to auscultation bilaterally and + wheezes Cardiovascular: RRR, no murmur, no edema Gastrointestinal (Abdomen): normal bowel sounds, soft, nontender, no hepatosplenomegaly Skin: no rashes, warm and dry Neurologic: alert and oriented speech is ok no facial drop moves extremities Results & Data Results & Data Vital Signs (Past 12 Hours) Vital Signs Temp Pulse Pulse Pulse Resp BP Pulse Ox 08/08/22 07:15 76 08/08/22 07:04 36.6 C 70 18 123/69 97 08/08/22 06:56 68 18 97 08/08/22 04:29 74 168/95 H 08/08/22 03:10 36.2 C L 79 18 198/114 H 99 08/08/22 03:00 17 08/07/22 23:17 36.4 C L 78 18 166/94 H 96 08/07/22 21:59 77 08/07/22 22:43 77 16 93 O2 Del Method O2 Flow Rate 08/08/22 07:15 08/08/22 07:04 Nasal Cannula 08/08/22 06:56 Nasal Cannula 2 08/08/22 04:29 08/08/22 03:10 CPAP 08/08/22 03:00 2 08/07/22 23:17 CPAP 08/07/22 21:59 08/07/22 22:43
[2022-08-08] MEDS: ATORVASTATIN 40 MG TAB PO SCH (21:56)
[2022-08-09 07:10] LABS: Basophils # (auto) 0.02 K/uL (0-0.2); Basophils % (auto) 0.2 %; Eosinophils # (auto) 0.11 K/uL (0-0.50); Hematocrit (blood only) 31.1 % (42.0-52.0); Hemoglobin 9.5 g/dl (14.0-18.0); Immature Granulocytes # (auto) 0.08 K/uL (0.01-0.20); Immature Granulocytes % (auto) 0.7 %; Lymphocytes # (auto) 1.36 K/uL (1.2-3.4); Lymphocytes % (auto) 12.5 %; Mean Corpuscular Hemoglobin 30.4 pg (25.0-34.0); Mean Corpuscular Hgb Conc 30.5 g/dL (32.0-36.0); Mean Corpuscular Volume 99.4 fL (80.0-100.0); Mean Platelet Volume 10.5 fL (9.4-12.4); Monocytes % (auto) 7.4 %; Neutrophils # (auto) 8.48 K/uL (1.40-6.50); Neutrophils % (auto) 78.2 %; Platelet Count 216 K/uL (130-400); RDW Coefficient of Variation 17.6 % (11.5-14.5); RDW Standard Deviation 63.6 fL (36.4-46.3); Red Blood Count 3.13 M/uL (4.70-6.10); White Blood Count 10.85 K/ul (4.8-10.8)
[2022-08-09] MEDS: ALBUT/IPRATROP 3MG/0.5MG NEB 3 ML VIAL NEB SCH ×2 (07:21→10:20)
[2022-08-09 07:26] LABS: BUN Creatinine Ratio 18.4 (10-20); Calcium 8.9 mg/dl (8.6-10.3); Creatinine Clr Calc Pharmacy 32.8 ml/min; Est GFR (African American) 35.5 ml/min; Est GFR (Non-African American) 30.6 ml/min; Potassium 4.1 mmol/L (3.5-5.1)
[2022-08-09] MEDS: amLODIPine BESYLATE 5 MG TAB PO SCH (08:33)
[2022-08-09] MEDS: APIXABAN 5 MG TABLET PO SCH (08:33)
[2022-08-09] MEDS: PANTOprazole 40 MG TAB PO SCH (08:33)
[2022-08-09] MEDS: DOCUSATE SODIUM/SENNA 50/8.6MG TAB PO SCH (08:33)
[2022-08-09] MEDS: guaiFENesin 600 MG TABCR PO SCH (08:34)
[2022-08-09] MEDS: allopurinoL 300 MG TAB PO SCH (08:34)
[2022-08-09] MEDS: METOPROLOL TARTRATE 25 MG TAB PO SCH (08:34)
[2022-08-09] MEDS: predniSONE 20 MG TAB PO SCH (08:34)
[2022-08-09] MEDS: FERROUS SULFATE 325 MG TAB PO SCH (08:34)
[2022-08-09] MEDS: EZETIMIBE 10 MG TABLET PO SCH (08:35)
[2022-08-09] MEDS: CLOPIDOGREL BISULFATE 75 MG TAB PO SCH (08:35)
[2022-08-09] MEDS: FLUTICASONE/VILANTEROL 200/25MCG 14 PUFFS/INHALER INH SCH (08:35)
--- NOTE | 2022-08-09 08:45 | Hospitalist Progress Note ---
Date of Service August 09, 2022 Assessment & Plan (1) Acute respiratory failure with hypoxia: Plan: Pt is a 72 yo gentleman with a remote chronic Hx of tobacco use, cardiac Hx significant for moderate to severe aortic stenosis, paroxysmal/wide complex ventricular tachycardia, Hx of stroke, HTN, CKD, HLD and iron deficiency anemia admitted with acute respiratory failure with hypoxia in the setting of likely COPD exacerbation. Acute Respiratory failure with hypoxia Seems on presentation had saturation of 89% no findings on CXR Daily Breo ordered cough improving COPD Exacerbation hx of smoking suspected based on symptoms and clinical Hx PFT testing outpatient once through exacerbation. On Azithromycin 500mg daily for 3 days total On prednisone 40mg Daily on breo, duonebs on hycodan, mucinex prn two step prior to discharge RUQ Abdominal Pain Ct abd/pelvis ok Gall bladder US showed gallstones but no cholecystitis Abdominal pain resolved seems after bowel movement tolerating diet fine Constipation stool softeners. moved bowels yesterday and today Aortic moderate to severe stenosis Needs followup with [facility] as planned for surgery. Gout on allopurinol Acute on chronic kidney disease Cr 1.8 seems around baseline stopped fluids HTN chronic, at goal. Cont current therapy GERD chronic, controlled on ppi h/o CVA Hx of recurrent CVA . 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 Aspirin discontinued. Eliquis added to plavix. on plavix and eliquis, zetia PSVT, PVT on home metoprolol asymptomatic 19beat run of v tach on zio monitoring followup with outpatient cardiology. Hx of AAA s/p repair in 2008. Scheduled for repeat repair at [facility] coming up. Thoracic aortic aneurysm: Recent Ct scan:Aneurysmal dilatation of the proximal left subclavian artery up to 2.7 cm unchanged. Ascending thoracic aorta at the level of the right pulmonary artery 4.2 cm unchanged. 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 Descending thoracic aorta at the level of the left atrium again up to 4.7 cm. Seems plan for surgery by vascular plan for pre op cath. Admitting Doc notified [facility] cardiology about this admission and will reschedule the cath. Anemia Iron deficiency Early stage Waldenstrom Macroglobulinemia Follows with heme/onco GINNY and nocturnal hypoxia uses cpap with 2lt oxygen in night time. DVT px on eliquis. Dispo- to home today with close primary care followup. DO Anton[facility] Hospitalist Admission and Anticipated Discharge Date Admission Date: August 04, 2022 Subjective 72 yo M with COPD and GINNY presents with COPD exacerbation feels good today breathing almost to baseline but wants to go home baseline oxygen needs are 2LPM at night with CPAP denies any other issues reports he is scheduled for an outpatient cath at [facility] in preparation for an aortic surgery some constipation but feels better after a BM this morning. Review of Systems Review of Systems: All systems were reviewed and negative except as indicated on HPI above. Physical Exam Physical Exam: CONSTITUTIONAL: WNWD, vitals as above, generally well-appearing, NAD EYES: normal conjunctivae, no scleral icterus ENT: external ear and nose normal, MMM NECK: trachea midline RESPIRATORY: mild wheezing throughout except very clear at right base, normal respiratory effort CARDIOVASCULAR: regular rate and rhythm,3/6 SANDIP across precordium,no gallops or rubs, no JVD, no peripheral edema CHEST: inspection of chest was normal GASTROINTESTINAL: soft, nontender, ND, no guarding MUSCULOSKELETAL: strength 5/5 throughout, head is normocephalic and atraumatic SKIN: warm and dry NEUROLOGIC: CN 2-12 grossly intact, no sensory deficit, normal cognition, normal speech, no tremor PSYCHIATRIC: alert cooperative and oriented to person, place and time. Euthymic mood, makes good eye contact, language grossly intact, recent and remote memory grossly intact. Results & Data Results & Data Vital Signs (Past 12 Hours) Vital Signs Temp Pulse Pulse Resp BP Pulse Ox O2 Del Method 08/09/22 07:30 36.9 C 76 16 148/80 H 96 Room Air 08/09/22 07:26 66 20 91 Nasal Cannula 08/09/22 04:01 14 08/09/22 03:32 36.5 C 75 18 167/92 H 94 CPAP 08/08/22 22:08 85 08/08/22 23:14 36.5 C 81 16 179/97 H 98 CPAP 08/08/22 22:39 86 17 97 08/08/22 21:51 89 146/85 H O2 Flow Rate 08/09/22 07:30 08/09/22 07:26 3 08/09/22 04:01 2 08/09/22 03:32 08/08/22 22:08 08/08/22 23:14 08/08/22 22:39 2 08/08/22 21:51 Laboratory Results Short CBC 08/09/22 Range/Units 06:25 WBC 10.85 H (4.8-10.8) K/ul Hgb 9.5 L (14.0-18.0) g/dl Hct 31.1 L (42.0-52.0) % Plt Count 216 (130-400) K/uL BMP 08/09/22 06:25 Sodium 140 Potassium 4.1 Chloride 108 H Carbon Dioxide 25 BUN 38 H Creatinine 2.07 H Glucose 81 Calcium 8.9 Medications Administered Current Inpatient Medications Acetaminophen (Acetaminophen 325 Mg Tab) 650 mg PO Q4H PRN PRN Reason: Pain or Fever Stop: 09/03/22 13:23 Albuterol (Albut/Ipratrop 3mg/0.5mg Neb 3 Ml Vial) 3 ml NEB QIDR [facility]; Protocol Stop: 09/03/22 13:23 Last Admin: 08/09/22 07:21 Dose: 3 ml Allopurinol (Allopurinol 300 Mg Tab) 150 mg PO [facility] Stop: 09/04/22 08:59 Last Admin: 08/09/22 08:34 Dose: 150 mg Amlodipine Besylate (Amlodipine Besylate 5 Mg Tab) 5 mg PO [facility] Stop: 09/07/22 03:14 Last Admin: 08/09/22 08:33 Dose: 5 mg Apixaban (Apixaban 5 Mg Tablet) 5 mg PO BID [facility] Stop: 09/03/22 20:59 Last Admin: 08/09/22 08:33 Dose: 5 mg Atorvastatin Calcium (Atorvastatin 40 Mg Tab) 80 mg PO QPM [facility] Stop: 09/03/22 20:59 Last Admin: 08/08/22 21:56 Dose: 80 mg Azithromycin ([facility]romycin 250 Mg Tab) [facility] [place] [facility] Stop: 08/09/22 08:59 Last Admin: 08/08/22 08:24 Dose: 500 mg Clopidogrel Bisulfate (Clopidogrel Bisulfate 75 Mg Tab) 75 [facility] [place] Stop: 09/04/22 08:59 Last Admin: 08/09/22 08:35 Dose: 75 mg Ezetimibe (Ezetimibe 10 Mg Tablet) 10 mg PO DAILY [facility] Stop: 09/04/22 08:59 Last Admin: 08/09/22 08:35 Dose: 10 mg Ferrous Sulfate (Ferrous Sulfate 325 Mg Tab) 325 mg PO QAM [facility] Stop: 09/04/22 08:59 Last Admin: 08/09/22 08:34 Dose: 325 mg Fluticasone/Vilanterol (Fluticasone/Vilanterol 200/25mcg 14 Puffs/Inhaler) 1 puffs INH DAILY [facility] Stop: 09/04/22 15:29 Last Admin: 08/09/22 08:35 Dose: 1 puffs Guaifenesin (Guaifenesin 600 Mg Tabcr) 1,200 mg PO Q12 [facility] Stop: 09/03/22 13:23 Last Admin: 08/09/22 08:34 Dose: 1,200 mg Hydrocodone Bit/Homatropine Methylb (Hydrocodone/Homatropine Syrup 5mg/1.5mg 5ml Udp) 5 ml PO Q6H PRN PRN Reason: Cough Stop: 08/18/22 13:23 Last Admin: 08/05/22 07:58 Dose: 5 ml Hydromorphone HCl (Hydromorphone Inj 0.5 Mg/0.5 Ml Syr) 0.5 mg IV Q3H PRN PRN Reason: Pain Stop: 08/21/22 03:12 Last Admin: 08/07/22 07:30 Dose: 0.5 mg Metoprolol Tartrate (Metoprolol Tartrate 25 Mg Tab) 12.5 mg PO BID [facility] Stop: 09/03/22 20:59 Last Admin: 08/09/22 08:34 Dose: 12.5 mg Pantoprazole Sodium (Pantoprazole 40 Mg Tab) 40 mg PO QAM [facility] Stop: 09/04/22 08:59 Last Admin: 08/09/22 08:33 Dose: 40 mg Prednisone (Prednisone 20 Mg Tab) 40 mg PO DAILY [facility] Stop: 09/04/22 08:59 Last Admin: 08/09/22 08:34 Dose: 40 mg Senna/Docusate Sodium (Docusate Sodium/Senna 50/8.6mg Tab) 1 tab PO BID [facility] Stop: 09/06/22 20:59 Last Admin: 08/09/22 08:33 Dose: 1 tab
--- NOTE | 2022-08-09 08:56 | Discharge Summary ---
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 tach noted on ZIO monitor, history of AAA s/p repair, and other problems listed below who presents to the ED for evaluation of cough, shortness of breath, wheezing. History obtained from the patient and my personal review of outpatient PCP and cardiology records. Patient reports his symptoms began 10 days ago. Patient reports chronic sinus congestion that has worsened. Cough has been productive for white, thick sputum. Reports of shortness of breath with minimal exertion. No orthopnea or lower extremity edema. Denies chest pain and back pain. No lightheadedness, dizziness, diaphoresis, syncopal events. Denies fevers and chills. No abdominal pain, nausea, vomiting, diarrhea. Reports urinary frequency which is new for him. In the ED, patient was hypoxic on room air at 89%. Labs unremarkable/at patient's baseline. CXR unremarkable for acute findings. Respiratory viral panel negative. Patient was given nebulizer treatment and IV Solu-Medrol. Principal Dx & Hospital Course #1 = Principal Diagnosis (1) Acute respiratory failure with hypoxia: Pt is a 72 yo gentleman with a remote chronic Hx of tobacco use, cardiac Hx significant for moderate to severe aortic stenosis, paroxysmal/wide complex ventricular tachycardia, Hx of stroke, HTN, CKD, HLD and iron deficiency anemia admitted with acute respiratory failure with hypoxia in the setting of likely COPD exacerbation. Acute Respiratory failure with hypoxia Seems on presentation had saturation of 89% no findings on CXR Daily Breo ordered cough improving COPD Exacerbation hx of smoking suspected based on symptoms and clinical Hx PFT testing outpatient once through exacerbation. On Azithromycin 500mg daily for 3 days total On prednisone 40mg Daily on breo, duonebs on hycodan, mucinex prn two step prior to discharge RUQ Abdominal Pain Ct abd/pelvis ok Gall bladder US showed gallstones but no cholecystitis Abdominal pain resolved seems after bowel movement tolerating diet fine Constipation stool softeners. moved bowels yesterday and today Aortic moderate to severe stenosis Needs followup with [facility] as planned for surgery. Gout on allopurinol Acute on chronic kidney disease Cr 1.8 seems around baseline stopped fluids HTN chronic, at goal. Cont current therapy GERD chronic, controlled on ppi h/o CVA Hx of recurrent CVA . 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 Aspirin discontinued. Eliquis added to plavix. on plavix and eliquis, zetia PSVT, PVT on home metoprolol asymptomatic 19beat run of v tach on zio monitoring followup with outpatient cardiology. Hx of AAA s/p repair in 2008. Scheduled for repeat repair at [facility] coming up. Thoracic aortic aneurysm: Recent Ct scan:Aneurysmal dilatation of the proximal left subclavian artery up to 2.7 cm unchanged. Ascending thoracic aorta at the level of the right pulmonary artery 4.2 cm unchanged. 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 Descending thoracic aorta at the level of the left atrium again up to 4.7 cm. Seems plan for surgery by vascular plan for pre op cath. Admitting Doc notified [facility] cardiology about this admission and will reschedule the cath. Anemia Iron deficiency Early stage Waldenstrom Macroglobulinemia Follows with heme/onco GINNY and nocturnal hypoxia uses cpap with 2lt oxygen in night time. DVT px on eliquis. Dispo- to home today with close primary care followup. Kate Morrison DO [facility] Hospitalist Updated Medication List Medication Instructions Recorded Confirmed Type atorvastatin 80 mg tablet 80 mg PO QPM 03/25/19 08/04/22 History clopidogrel 75 mg tablet 75 mg PO QAM 03/25/19 08/04/22 History fluticasone propionate 50 2 spray intranasal DAILY PRN 03/25/19 08/04/22 History mcg/actuation nasal Congestion spray,suspension cholecalciferol (vitamin D3) 50 2,000 unit PO QAM 06/10/20 08/04/22 History mcg (2,000 unit) capsule (D3-1999) apixaban 5 mg tablet (Eliquis) 5 mg PO BID #60 tabs 06/15/20 08/04/22 Rx amlodipine 2.5 mg tablet 2.5 mg PO QAM 12/30/20 08/04/22 History iron,carbonyl 65 mg-vitamin C 125 1 tab PO QAM 12/30/20 08/04/22 History mg tablet,delayed release (Vitron-C) albuterol sulfate 90 mcg/actuation 2 puff inhalation QID PRN Wheezing 10/31/21 08/04/22 History aerosol inhaler allopurinol 300 mg tablet 150 mg PO QAM 10/31/21 08/04/22 History metoprolol tartrate 25 mg tablet 12.5 mg PO BID 10/31/21 08/04/22 History ferrous sulfate 325 mg (65 mg 325 mg PO QAM 02/25/22 08/04/22 History iron) tablet,delayed release pantoprazole 40 mg tablet,delayed 40 mg PO QAM 02/25/22 08/04/22 History release ezetimibe 10 mg tablet 10 mg PO DAILY 08/04/22 08/04/22 History ipratropium 0.5 mg-albuterol 3 mg 3 ml inhalation Q6H PRN wheezing 08/09/22 Rx (2.5 mg base)/3 mL nebulization #90 mL soln prednisone 20 mg tablet 40 mg PO DAILY #6 tabs 08/09/22 Rx Hospital Stay Data Consultations 08/04/22 08:24 ED Decision to Admit Stat Diagnostic Imagining Performed 08/07/22 03:12 CT Abd and Pelvis [CT abd pelvis wo con] Stat 08/07/22 09:03 US gallbladder Routine Pending Results Patient Have Any Pending Studies at Discharge: No
== END 2022-08-09 12:03 | disposition home or self-care (01) | DRG 190 ==
LOC: ED 06:03 → EDINP 10:24 → SUATTDRO 10:24 → 2E 16:36

== ENCOUNTER 2022-10-14 20:18 | Inpatient (IN) ==
[2022-10-14] MEDS ORDERED: SODIUM CHLORIDE 0.9% 500 ML IV ONE (20:37)
[2022-10-14 21:06] LABS: Basophils # (auto) 0.14 K/uL (0-0.2); Basophils % (auto) 1.3 %; Eosinophils # (auto) 1.18 K/uL (0-0.50); Eosinophils % (auto) 10.5 %; Hematocrit (blood only) 27.9 % (42.0-52.0); Hemoglobin 8.1 g/dl (14.0-18.0); Immature Granulocytes # (auto) 0.04 K/uL (0.01-0.20); Immature Granulocytes % (auto) 0.4 %; Lymphocytes # (auto) 1.75 K/uL (1.2-3.4); Lymphocytes % (auto) 15.6 %; Mean Corpuscular Hemoglobin 28.5 pg (25.0-34.0); Mean Corpuscular Volume 98.2 fL (80.0-100.0); Mean Platelet Volume 10.4 fL (9.4-12.4); Monocytes # (auto) 0.83 K/uL (0.11-0.59); Monocytes % (auto) 7.4 %; Neutrophils # (auto) 7.26 K/uL (1.40-6.50); Neutrophils % (auto) 64.8 %; Platelet Count 211 K/uL (130-400); RDW Coefficient of Variation 17.4 % (11.5-14.5); RDW Standard Deviation 62.5 fL (36.4-46.3); Red Blood Count 2.84 M/uL (4.70-6.10)
[2022-10-14 21:21] LABS: Albumin Globulin Ratio 1.3 (0.9-2); Albumin Level 3.9 gm/dl (3.4-5.0); BUN Creatinine Ratio 11.7 (10-20); Bilirubin,Total 0.4 mg/dl (0.2-1.0); Calcium 9.2 mg/dl (8.6-10.3); Creatinine Clr Calc Pharmacy 30.6 ml/min; Est GFR (African American) 32.4 ml/min; Globulin 3.1 gm/dl (2.5-4.0); Phosphorus 4.3 mg/dl (2.5-4.9); Potassium 3.8 mmol/L (3.5-5.1)
[2022-10-14 21:28] LABS: Troponin I High Sensitivity 19.1 pg/ml (0-20)
[2022-10-14] MEDS ORDERED: methylPREDNISolone 125 MG/2 ML VIAL IV STA (21:41)
[2022-10-14] MEDS ORDERED: ALBUT/IPRATROP 3MG/0.5MG NEB 3 ML VIAL NEB ONE (21:41)
[2022-10-14] MEDS ORDERED: guaiFENesin 600 MG TABCR PO STA (21:41)
[2022-10-14] MEDS ORDERED: AZITHROMYCIN 500 MG in DEXTROSE 5% 250 ML IV STA (21:41)
--- NOTE | 2022-10-14 22:17 | Emergency Department Note ---
Impression & Plan COPD exacerbation, CKD (chronic kidney disease), stage III, Chronic respiratory failure with hypoxia, on home O2 therapy ED Provider Note NAME: ZULMA MERA AGE: 72 SEX: M ARRIVES VIA: Ambulance INFORMANT: Patient ED PROVIDER(S): Jorge A Camarena MD CHIEF COMPLAINT: Shortness of breath PLAN: Disposition: Admit MEDICAL DECISION MAKING: The patient is a pleasant 72-year-old gentleman with a past medical history of chronic respiratory failure with hypoxia on home oxygen, COPD, CKD, hypertension, paroxysmal ventricular tachycardia on Eliquis, iron deficiency anemia, aortic stenosis, hyperlipidemia who presents to the emergency department via EMS and then accompanied by his daughter for evaluation of worsening shortness of breath over the past week where he has had increased cough congestion with yellow sputum production. Patient denies any fevers, chest pain, nausea, vomiting, diarrhea or urinary symptoms. He reports his feels that he has been having recurrent flares with increasing severity and feels he needs to be admitted to get his COPD under control. On my evaluation patient is no acute distress, afebrile with elevated blood pressure and heart rate in the 90s-low 100s and vital signs otherwise stable. He appears euvolemic to dry. He has diffuse wheezes of bilateral lung read with mild work of breathing but no distress. EKG without overt acute ischemia. Chest x-ray negative for focal infiltrates per my preliminary review. WBC 11.2, nonspecific. There is no left shift. H/H 8.1/27.9 in setting of havi ng blood transfusion this past Tuesday for his chronic anemia without pretransfusion values for comparison. Chemistry without metabolic acidosis. Creatinine 2.2, similar to prior range values in the setting of CKD. LFTs unremarkable. High-sensitivity troponin 19.1, within normal limits. Lipase is normal. Procalcitonin is undetectable. COVID-19 RNA, GUILLERMO test was negative. Patient was treated with hour-long DuoNeb, Solu-Medrol and guaifenesin. IV azithromycin administered for COPD exacerbation. Given the progressive worsening of his COPD exacerbation patient was referred to hospital service for admission. Case was discussed with Dr. Thompson, [facility] hospitalist who will evaluate the patient for admission. Triage Nursing notes reviewed and agree them. Prior/outside medical records reviewed Vital Signs: reviewed Differential diagnosis: Reactive airway disease, pneumonia, pneumothorax, COPD, CHF, infections, cardiac ischemia, pulmonary embolism, musculoskeletal, gastrointestinal, as well as other pathologies. ER treatment provided: See below. Diagnostics interpreted by me: ECG: Normal sinus rhythm, 98 bpm, no ectopy, LVH, no overt ST elevation or depression. Cardiac Monitoring: An order for continuous cardiac monitoring was placed and demonstrated normal sinus rhythm, 90 bpm, no ectopy. Laboratory studies: See below Imaging studies: See below Consultation(s): Case was discussed with Dr. Thompson, [facility] hospitalist who will evaluate the patient for admission. HPI: The patient is a pleasant 72-year-old gentleman with a past medical history of chronic respiratory failure with hypoxia on home oxygen, COPD, CKD, hypertension, paroxysmal ventricular tachycardia on Eliquis, iron deficiency anemia, aortic stenosis, hyperlipidemia who presents to the emergency department via EMS and then accompanied by his daughter for evaluation of worsening shortness of breath over the past week where he has had increased cough congestion with yellow sputum production. Patient denies any fevers, chest pain, nausea, vomiting, diarrhea or urinary symptoms. He reports his feels that he has been having recurrent flares with increasing severity and feels he needs to be admitted to get his COPD under control. ROS: See above HPI for pertinent positives & negatives. A total of 10 systems reviewed and were otherwise negative. VITALS:See Below PHYSICAL EXAMINATION: GENERAL: Awake, alert, fatigued-appearing, in no distress HENT: Normocephalic, atraumatic. Oropharynx dry mucous membranes. EYES: Normal conjunctiva. Sclera non-icteric. NECK: Supple. No nuchal rigidity. FROM. No JVD. RESPIRATORY: Diffuse wheezes of bilateral lung read with mild increased work of breathing but no acute acute distress. CARDIAC: Regular rate, normal rhythm. Extremities warm and well perfused. Pulses equal. ABDOMEN: Soft, non-distended. No tenderness to palpation. No rebound or guarding. No masses. RECTAL: Deferred. MUSCULOSKELETAL: Chest examination reveals no tenderness. The back is symmetrical on inspection without obvious abnormality. There is no CVA tenderness to palpation. No joint edema. LOWER EXTREMITIES: Calves are equal size bilaterally and non-tender. No edema. No discoloration. NEURO: Normal sensorium. No sensory or motor deficits noted. SKIN: No rash or jaundice noted. 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 Ascending thoracic aorta at the level of the right pulmonary artery 4.2 cm unchanged. 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 Descending thoracic aorta at the level of the left atrium again up to 4.7 cm. Aortic stenosis Thoracic aortic atherosclerosis, densely calcified coronary arteries, severely calcified aortic valve, aneurysmal outpouching of the aortic arch. CKD (chronic kidney disease), stage III follows with [facility] nephrology Gastric ulcer Hearing deficit BL NAILS History of GI bleed Hx of gout Hx SBO Hyperlipidemia Hypertension ANDREW (iron deficiency anemia) Obesity Paroxysmal ventricular tachycardia 19 beat run of ventricular tachycardia via Zio monitoring PFO (patent foramen ovale) per records. follows with Dr. 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 TO HAVE SLIGHT BALANCE ISSUES Surgical History History of esophagogastroduodenoscopy (EGD) History of lumbar surgery 1999 History of tonsillectomy History of tonsillectomy and adenoidectomy History of tooth extraction Hx of colonoscopy Hx of hernia repair lysis of adhesions, incisional hernia repair laparoscopically 01/28/2010 at [facility] - Dr Desouza S/P AAA repair 01/13/2009 - Dr Suazo ([facility]) Family History Other AAA (abdominal aortic aneurysm) Hypertension No family history of adverse response to anesthesia Social History Smoking Status: Former smoker Tobacco Type: Cigarettes and Cigars Cigarettes Per Day: Former cigarette. Quit 1998; Second Hand Exposure: No; Do You Dip or Chew Tobacco: No; Hx Alcohol Use: Yes Alcohol type: beer Alcohol type Comment: 3 beers a day Hx Substance Use: No Preferred Language: Scottish Communication Ability: Effective Finish Molder Required: No Beliefs That Will Affect Care: None marital status: Current Living Situation: Spouse current occupational status: employed Other Information That Helps Us Care for You: No Feels Safe at Home: Yes Safety Concerns: Feels Safe At This Time Assistive Devices: None Allergies Allergies Allergy/AdvReac Type Severity Reaction Status Date / Time RUBENS Inhibitors AdvReac Intermediate DROPS Verified 10/11/22 10:06 BLOOD PRESSURE lisinopril AdvReac Intermediate DROPS Verified 10/11/22 10:06 BLOOD PRESSURE Home Meds Home Medications Medication Instructions Recorded Confirmed atorvastatin 80 mg tablet 80 mg PO QPM 03/25/19 10/14/22 clopidogrel 75 mg tablet 75 mg PO QAM 03/25/19 10/14/22 fluticasone propionate 50 2 spray intranasal DAILY 03/25/19 10/14/22 mcg/actuation nasal spray,suspension cholecalciferol (vitamin D3) 50 2,000 unit PO QAM 06/10/20 10/14/22 mcg (2,000 unit) capsule (D3-2000) amlodipine 2.5 mg tablet 2.5 mg PO QAM 12/30/20 10/14/22 iron,carbonyl 65 mg-vitamin C 125 1 tab PO QAM 12/30/20 10/14/22 mg tablet,delayed release (Vitron-C) albuterol sulfate 90 mcg/actuation 2 puff inhalation Q4 PRN Wheezing 10/31/21 10/14/22 aerosol inhaler allopurinol 300 mg tablet 150 mg PO QAM 10/31/21 10/14/22 metoprolol tartrate 25 mg tablet 12.5 mg PO BID 10/31/21 10/14/22 pantoprazole 40 mg tablet,delayed 40 mg PO QAM 02/25/22 10/14/22 release ezetimibe 10 mg tablet 10 mg PO QAM 08/04/22 10/14/22 apixaban 5 mg tablet 5 mg PO BID 10/11/22 10/14/22 docusate sodium 100 mg capsule 100 mg PO BID PRN Constipation 10/11/22 10/14/22 ipratropium 0.5 mg-albuterol 3 mg 3 ml inhalation Q6H PRN Shortness 10/14/22 10/14/22 (2.5 mg base)/3 mL nebulization Of Breath soln Previous Rx's Medication Instructions Recorded Oxygen Home #1 ea 08/09/22 Results & Data (ED) Vital Signs Vital Signs - 24 hr 10/14/22 20:27 10/14/22 20:27 10/14/22 20:27 Temperature 36.8 C 36.8 C Temperature Source Oral Oral Pulse Rate 100 H 100 H Pulse Rate [Finger] Respiratory Rate 20 20 20 Respiratory Effort / Characteristics Non-Labored Spontaneous Respiratory Depth Normal Blood Pressure 147/94 H 147/94 H Blood Pressure Mean 111 111 Pulse Oximetry 91 91 91 Oxygen Delivery Method Room Air Room Air Room Air Oxygen Flow Rate Sepsis Recent Fever Within 48 Hours No Sepsis New/Unexplained Change in Mental Status N/A Sepsis Action Taken by Nursing No Action Required Oxygen Flow Rate - Titration Pulse Oximetry Post Tiitration 10/14/22 20:27 10/14/22 20:27 10/14/22 20:34 Temperature Temperature Source Pulse Rate 102 H Pulse Rate [Finger] Respiratory Rate Respiratory Effort / Characteristics Spontaneous Short of Breath SOB on Exertion Respiratory Depth Blood Pressure Blood Pressure Mean Pulse Oximetry 91 Oxygen Delivery Method Room Air Oxygen Flow Rate 0 Sepsis Recent Fever Within 48 Hours Sepsis New/Unexplained Change in Mental Status Sepsis Action Taken by Nursing Oxygen Flow Rate - Titration 3 Pulse Oximetry Post Tiitration 96 10/14/22 21:00 10/14/22 21:31 10/14/22 22:01 Temperature Temperature Source Pulse Rate 93 H 92 H 95 H Pulse Rate [Finger] Respiratory Rate 22 30 H 18 Respiratory Effort / Characteristics Respiratory Depth Blood Pressure 117/73 118/89 173/76 H Blood Pressure Mean 83 97 104 Pulse Oximetry 93 97 96 Oxygen Delivery Method Nasal Cannula Nasal Cannula Nasal Cannula Oxygen Flow Rate 3 3 3 Sepsis Recent Fever Within 48 Hours Sepsis New/Unexplained Change in Mental Status Sepsis Action Taken by Nursing Oxygen Flow Rate - Titration Pulse Oximetry Post Tiitration 10/14/22 22:36 10/14/22 22:30 10/14/22 23:00 Temperature Temperature Source Pulse Rate 85 Pulse Rate [Finger] 85 Respiratory Rate 19 23 Respiratory Effort / Characteristics Spontaneous Respiratory Depth Blood Pressure 138/71 131/77 Blood Pressure Mean 91 97 Pulse Oximetry 98 100 Oxygen Delivery Method Nasal Cannula Nasal Cannula Oxygen Flow Rate 3 3 Sepsis Recent Fever Within 48 Hours Sepsis New/Unexplained Change in Mental Status Sepsis Action Taken by Nursing Oxygen Flow Rate - Titration Pulse Oximetry Post Tiitration Laboratory Data Attestation: I reviewed the patient's lab results. 10/14/22 20:34 10/14/22 20:34 Lab Results 10/14/22 10/14/22 10/14/22 Range/Units 20:34 20:34 20:34 WBC 11.20 H (4.8-10.8) K/ul RBC 2.84 L (4.70-6.10) M/uL Hgb 8.1 L (14.0-18.0) g/dl Hct 27.9 L (42.0-52.0) % MCV 98.2 (80.0-100.0) fL MCH 28.5 (25.0-34.0) pg MCHC 29.0 L (32.0-36.0) g/dL RDW Std Deviation 62.5 H (36.4-46.3) fL RDW Coeff of Chaka 17.4 H (11.5-14.5) % Plt Count 211 (130-400) K/uL MPV 10.4 (9.4-12.4) fL Immature Gran % (Auto) 0.4 % Neut % (Auto) 64.8 % Lymph % (Auto) 15.6 % Irwin % (Auto) 7.4 % Eos % (Auto) 10.5 % Baso % (Auto) 1.3 % Neut # (Auto) 7.26 H (1.40-6.50) K/uL Lymph # (Auto) 1.75 (1.2-3.4) K/uL Irwin # (Auto) 0.83 H (0.11-0.59) K/uL Eos # (Auto) 1.18 H (0-0.50) K/uL Baso # (Auto) 0.14 (0-0.2) K/uL Immature Gran # (Auto) 0.04 (0.01-0.20) K/uL Sodium 138 (136-145) mmol/L Potassium 3.8 (3.5-5.1) mmol/L Chloride 105 (98-107) mmol/L Carbon Dioxide 24 (21-32) mmol/L Anion Gap 9 (3-11) BUN 26 H (6-23) mg/dl Creatinine 2.23 H (0.6-1.4) mg/dl Est Cr Clr Drug Dosing 30.6 ml/min Est GFR ( Amer) 32.4 ml/min Est GFR (Non-Af Amer) 28.0 ml/min BUN/Creatinine Ratio 11.7 (10-20) Glucose 99 (70-99(Fasting)) mg/dl Calcium 9.2 (8.6-10.3) mg/dl Phosphorus 4.3 (2.5-4.9) mg/dl Magnesium 2.0 (1.7-2.4) mg/dl Total Bilirubin 0.4 (0.2-1.0) mg/dl AST 13 (13-39) U/L ALT 9 (7-52) U/L Alkaline Phosphatase 88 (34-104) U/L Troponin I High Sens 19.1 (0-20) pg/ml Total Protein 7.0 (6.0-8.3) gm/dl Albumin 3.9 (3.4-5.0) gm/dl Globulin 3.1 (2.5-4.0) gm/dl Albumin/Globulin Ratio 1.3 (0.9-2) Lipase 51 (11-82) U/L Procalcitonin < 0.05 (0-0.5) ng/ml SARS-CoV-2, RNA, NAAT (NEGATIVE) 10/14/22 Range/Units 20:46 WBC (4.8-10.8) K/ul RBC (4.70-6.10) M/uL Hgb (14.0-18.0) g/dl Hct (42.0-52.0) % MCV (80.0-100.0) fL MCH (25.0-34.0) pg MCHC (32.0-36.0) g/dL RDW Std Deviation (36.4-46.3) fL RDW Coeff of Chaka (11.5-14.5) % Plt Count (130-400) K/uL MPV (9.4-12.4) fL Immature Gran % (Auto) % Neut % (Auto) % Lymph % (Auto) % Irwin % (Auto) % Eos % (Auto) % Baso % (Auto) % Neut # (Auto) (1.40-6.50) K/uL Lymph # (Auto) (1.2-3.4) K/uL Irwin # (Auto) (0.11-0.59) K/uL Eos # (Auto) (0-0.50) K/uL Baso # (Auto) (0-0.2) K/uL Immature Gran # (Auto) (0.01-0.20) K/uL Sodium (136-145) mmol/L Potassium (3.5-5.1) mmol/L Chloride (98-107) mmol/L Carbon Dioxide (21-32) mmol/L Anion Gap (3-11) BUN (6-23) mg/dl Creatinine (0.6-1.4) mg/dl Est Cr Clr Drug Dosing ml/min Est GFR ( Amer) ml/min Est GFR (Non-Af Amer) ml/min BUN/Creatinine Ratio (10-20) Glucose (70-99(Fasting)) mg/dl Calcium (8.6-10.3) mg/dl Phosphorus (2.5-4.9) mg/dl Magnesium (1.7-2.4) mg/dl Total Bilirubin (0.2-1.0) mg/dl AST (13-39) U/L ALT (7-52) U/L Alkaline Phosphatase (34-104) U/L Troponin I High Sens (0-20) pg/ml Total Protein (6.0-8.3) gm/dl Albumin (3.4-5.0) gm/dl Globulin (2.5-4.0) gm/dl Albumin/Globulin Ratio (0.9-2) Lipase (11-82) U/L Procalcitonin (0-0.5) ng/ml SARS-CoV-2, RNA, NAAT NEGATIVE (NEGATIVE) Administered Medications Metoprolol Tartrate (Metoprolol Tartrate 25 Mg Tab) 12.5 mg PO BID MOLINA Stop: 11/14/22 03:49 Last Admin: 10/15/22 04:05 Dose: 12.5 mg Documented By: NVE Discontinued Medications Albuterol (Albut/Ipratrop 3mg/0.5mg Neb 3 Ml Vial) 12 ml NEB ONE ONE; Protocol Stop: 10/14/22 21:42 Last Admin: 10/14/22 22:32 Dose: 12 ml Documented By: ALIZE Apixaban (Apixaban 5 Mg Tablet) 5 mg PO NOW STA Stop: 10/14/22 23:11 Last Admin: 10/15/22 00:42 Dose: 5 mg Documented By: BOBBY Guaifenesin (Guaifenesin 600 Mg Tabcr) 1,200 mg PO NOW STA Stop: 10/14/22 21:42 Last Admin: 10/14/22 21:58 Dose: 1,200 mg Documented By: MARY Sodium Chloride (Nss) 500 mls @ 999 mls/hr IV .Q31M ONE Stop: 10/14/22 21:07 Last Admin: 10/14/22 21:19 Dose: Not Given Documented By: MARY Azithromycin 500 mg/ Dextrose 255 mls @ 127.5 mls/hr IV NOW STA Stop: 10/14/22 23:40 Last Infusion: 10/15/22 00:50 Dose: 0 mls/hr Documented By: Admin: 10/14/22 22:53 Dose: 127.5 mls/hr Documented By: MARY Methylprednisolone (Methylprednisolone 125 Mg/2 Ml Vial) 125 mg IV NOW STA Stop: 10/14/22 21:42 Last Admin: 10/14/22 22:01 Dose: 125 mg Documented By: MARY Metoprolol Tartrate (Metoprolol Tartrate 1 Mg/Ml Vial) 2.5 mg IV NOW STA Stop: 10/14/22 22:28 Last Admin: 10/15/22 00:43 Dose: Not Given Documented By: BOBBY Metoprolol Tartrate (Metoprolol Tartrate 1 Mg/Ml Vial) 2.5 mg IV NOW STA Stop: 10/15/22 03:29 Last Admin: 10/15/22 04:03 Dose: Not Given Documented By: BOBBY Discharge Plan Visit Data Chief Complaint: Shortness of Breath/Dyspnea Stated Complaint: SHORTNESS OF BREATH ED Provider: Jorge A Camarena Discharge Problem: COPD exacerbation, CKD (chronic kidney disease), stage III, Chronic respiratory failure with hypoxia, on home O2 therapy Patient Disposition: Admitted As Inpatient Discharge Instructions Interventions: ED Discharge Assessment Last Done: 10/15/22 00:20
[2022-10-14] MEDS ORDERED: METOPROLOL TARTRATE 1 MG/ML VIAL IV STA (22:27)
--- NOTE | 2022-10-14 23:04 | History & Physical Report ---
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 Eliquis Full code Patient daughter requesting updates providers. Ms. Kerrie Sutton, contact #[phone]. Text document was generated using Sensipass voice recognition software. It may contain grammatical or spelling errors. Kindly contact undersigned for clarification of any documentation item in question. History of Present Illness Chief Complaint: Worsening wheezing, shortness of breath Primary Care Provider: Jairo Kingston MD History obtained from patient, family, and records. Medical history significant for chronic respiratory failure secondary to COPD on home O2, GINNY/nocturnal hypoxemia on CPAP, history PSVT, valvular heart disease ( severe , mild AR), history TAA, AAA status post surgery, hx recurrent CVA (hx shaggy aorta syndrome) on Eliquis and Plavix, hypertension, hyperlipidemia, CRI (baseline creatinine 2s), GERD, chronic anemia (hemoglobin of 8), Waldenstrom macroglobulinemia, past tobacco abuse. Last confinement July 2022 for COPD exacerbation. Patient seen at PCPs office last month for COPD exacerbation. Prednisone course prescribed. Last week, patient noted worsening cough/wheezing symptoms productive of yellow sputum. Patient denies aspiration or controlled GERD. No chest pain. Patient completed COVID-19 vaccination. No fluid retention. EMS called with worsening symptoms. Azithromycin, Solu-Medrol and neb treatment administered at the ER. 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 Allergies Allergy/AdvReac Type Severity Reaction Status Date / Time RUBENS Inhibitors AdvReac Intermediate DROPS Verified 10/11/22 10:06 BLOOD PRESSURE lisinopril AdvReac Intermediate DROPS Verified 10/11/22 10:06 BLOOD PRESSURE Home Medications Medication Instructions Recorded Confirmed Type atorvastatin 80 mg tablet 80 mg PO QPM 03/25/19 10/14/22 History clopidogrel 75 mg tablet 75 mg PO QAM 03/25/19 10/14/22 History fluticasone propionate 50 2 spray intranasal DAILY 03/25/19 10/14/22 History mcg/actuation nasal spray,suspension cholecalciferol (vitamin D3) 50 2,000 unit PO QAM 06/10/20 10/14/22 History mcg (2,000 unit) capsule (D3-2000) amlodipine 2.5 mg tablet 2.5 mg PO QAM 12/30/20 10/14/22 History iron,carbonyl 65 mg-vitamin C 125 1 tab PO QAM 12/30/20 10/14/22 History mg tablet,delayed release (Vitron-C) albuterol sulfate 90 mcg/actuation 2 puff inhalation Q4 PRN Wheezing 10/31/21 10/14/22 History aerosol inhaler allopurinol 300 mg tablet 150 mg PO QAM 10/31/21 10/14/22 History metoprolol tartrate 25 mg tablet 12.5 mg PO BID 10/31/21 10/14/22 History pantoprazole 40 mg tablet,delayed 40 mg PO QAM 02/25/22 10/14/22 History release ezetimibe 10 mg tablet 10 mg PO QAM 08/04/22 10/14/22 History Oxygen Home #1 ea 08/09/22 10/14/22 Rx apixaban 5 mg tablet 5 mg PO BID 10/11/22 10/14/22 History docusate sodium 100 mg capsule 100 mg PO BID PRN Constipation 10/11/22 10/14/22 History ipratropium 0.5 mg-albuterol 3 mg 3 ml inhalation Q6H PRN Shortness 10/14/22 10/14/22 History (2.5 mg base)/3 mL nebulization Of Breath soln Past Med/Surg History Medical History (Updated 10/15/22 @ 03:41 by Nicholas Thompson MD) Aneurysm CT chest w/o contrast 06/25/22 - 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 Ascending thoracic aorta at the level of the right pulmonary artery 4.2 cm unchanged. 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 Descending thoracic aorta at the level of the left atrium again up to 4.7 cm. Aortic stenosis Thoracic aortic atherosclerosis, densely calcified coronary arteries, severely calcified aortic valve, aneurysmal outpouching of the aortic arch. CKD (chronic kidney disease), stage III follows with [facility] nephrology Gastric ulcer Hearing deficit BL NAILS History of GI bleed Hx of gout Hx SBO Hyperlipidemia Hypertension ANDREW (iron deficiency anemia) Obesity Paroxysmal ventricular tachycardia 19 beat run of ventricular tachycardia via Zio monitoring PFO (patent foramen ovale) per records. follows with Dr. 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 TO HAVE SLIGHT BALANCE ISSUES Surgical History History of esophagogastroduodenoscopy (EGD) History of lumbar surgery 1999 History of tonsillectomy History of tonsillectomy and adenoidectomy History of tooth extraction Hx of colonoscopy Hx of hernia repair lysis of adhesions, incisional hernia repair laparoscopically 01/28/2010 at [facility] - Dr Desouza S/P AAA repair 01/13/2009 - Dr Suazo ([place] YEARLY AT [facility] [address]) Family History Other AAA (abdominal aortic aneurysm) Hypertension No family history of adverse response to anesthesia Social History Smoking Status: Former smoker Tobacco Type: Cigarettes and Cigars Cigarettes Per Day: Former cigarette. Quit 1998; Second Hand Exposure: No; Do You Dip or Chew Tobacco: No; Hx Alcohol Use: Yes Alcohol type: beer Alcohol type Comment: 3 beers a day Hx Substance Use: No Preferred Language: Urdu Communication Ability: Effective Real Property Appraiser Required: No Beliefs That Will Affect Care: None marital status: Current Living Situation: Spouse current occupational status: employed Other Information That Helps Us Care for You: No Feels Safe at Home: Yes Safety Concerns: Feels Safe At This Time Assistive Devices: None Review of Systems Review of Systems: As per HPI, all other systems reviewed and negative Physical Exam Physical Exam: GENERAL: uncomfortable, obese, slightly hard of hearing, respiratory distress, currently receiving a breathing treatment SKIN: Pallor, warm HEENT: Sparse hair, pale palpebral conjunctivae, no ptosis, dry buccal mucosa, nasal cannula in place NECK : Supple, short neck, no tenderness CHEST : Decreased breath sounds, diffuse expiratory wheezes, no tenderness HEART : RRR, tachycardic ABDOMEN: Some distention, nontender EXTREMITIES : Minimal LE swelling, no LE tenderness, no other conspicuous deformities noted NEUROLOGIC : Coherent, no facial asymmetry, slightly hard of hearing, no other gross focality Results & Data Results & Data Vital Signs (Past 12 Hours) Vital Signs Temp Pulse Pulse Resp BP Pulse Ox O2 Del Method 10/14/22 22:36 85 19 98 Nasal Cannula 10/14/22 22:01 95 H 18 173/76 H 96 Nasal Cannula 10/14/22 21:31 92 H 30 H 118/89 97 Nasal Cannula 10/14/22 21:00 93 H 22 117/73 93 Nasal Cannula 10/14/22 20:34 102 H 10/14/22 20:27 91 Room Air 10/14/22 20:27 36.8 C 20 91 Room Air 10/14/22 20:27 36.8 C 100 H 20 147/94 H 91 Room Air 10/14/22 20:27 100 H 20 147/94 H 91 Room Air O2 Flow Rate 10/14/22 22:36 3 10/14/22 22:01 3 10/14/22 21:31 3 10/14/22 21:00 3 10/14/22 20:34 10/14/22 20:27 0 10/14/22 20:27 10/14/22 20:27 10/14/22 20:27 Laboratory Results Laboratory Results WBC 11.20 K/ul (4.8-10.8) H 10/14/22 20:34 RBC 2.84 M/uL (4.70-6.10) L 10/14/22 20:34 Hgb 8.1 g/dl (14.0-18.0) L 10/14/22 20:34 Hct 27.9 % (42.0-52.0) L 10/14/22 20:34 MCV 98.2 fL (80.0-100.0) 10/14/22 20:34 MCH 28.5 pg (25.0-34.0) 10/14/22 20: MCHC 29.0 g/dL (32.0-36.0) L 10/14/22 20:34 RDW Std Deviation 62.5 fL (36.4-46.3) H 10/14/22 20:34 RDW Coeff of Chaka 17.4 % (11.5-14.5) H 10/14/22:34 Plt Count 211 K/uL (130-400) 10/14/22:34 MPV 10.4 fL (9.4-12.4) 10/14/22 20:34 Immature Gran % (Auto) 0.4 % 10/14/22 20:34 Neut % (Auto) 64.8 % 10/14/22 20:34 Lymph % (Auto) 15.6 % 10/14/22 20:34 Atlantic % (Auto) 7.4 % 10/14/22 20:34 Eos % (Auto) 10.5 % 10/14/22 20:34 Baso % (Auto) 1.3 % 10/14/22 20:34 Neut # (Auto) 7.26 K/uL (1.40-6.50) H 10/14/22 20:34 Lymph # (Auto) 1.75 K/uL (1.2-3.4) 10/14/22 20:34 Atlantic # (Auto) 0.83 K/uL (0.11-0.59) H 10/14/22 20:34 Eos # (Auto) 1.18 K/uL (0-0.50) H 10/14/22 20:34 Baso # (Auto) 0.14 K/uL (0-0.2) 10/14/22 20:34 Immature Gran # (Auto) 0.04 K/uL (0.01-0.20) 10/14/22 20:34 Sodium 138 mmol/L (136-145) 10/14/22 20:34 Potassium 3.8 mmol/L (3.5-5.1) 10/14/22 20:34 Chloride 105 mmol/L (98-107) 10/14/22 20:34 Carbon Dioxide 24 mmol/L (21-32) 10/14/22 20:34 Anion Gap 9 (3-11) 10/14/22 20:34 BUN 26 mg/dl (6-23) H 10/14/22 20:34 Creatinine 2.23 mg/dl (0.6-1.4) H 10/14/22 20:34 Est Cr Clr Drug Dosing 30.6 ml/min 10/14/22 20:34 Est GFR ( Amer) 32.4 ml/min 10/14/22 20:34 Est GFR (Non-Af Amer) 28.0 ml/min 10/14/22 20:34 BUN/Creatinine Ratio 11.7 (10-20) 10/14/22 20:34 Glucose 99 mg/dl (70-99(Fasting)) 10/14/22 20:34 Calcium 9.2 mg/dl (8.6-10.3) 10/14/22 20:34 Phosphorus 4.3 mg/dl (2.5-4.9) 10/14/22 20:34 Magnesium 2.0 mg/dl (1.7-2.4) 10/14/22 20:34 Total Bilirubin 0.4 mg/dl (0.2-1.0) 10/14/22 20:34 AST 13 U/L (13-39) 10/14/22 20:34 ALT 9 U/L (7-52) 10/14/22 20:34 Alkaline Phosphatase 88 U/L (34-104) 10/14/22 20:34 Troponin I High Sens 19.1 pg/ml (0-20) 10/14/22 20:34 Total Protein 7.0 gm/dl (6.0-8.3) 10/14/22 20:34 Albumin 3.9 gm/dl (3.4-5.0) 10/14/22 20:34 Globulin 3.1 gm/dl (2.5-4.0) 10/14/22 20:34 Albumin/Globulin Ratio 1.3 (0.9-2) 10/14/22 20:34 Lipase 51 U/L (11-82) 10/14/22 20:34 Procalcitonin < 0.05 ng/ml (0-0.5) 10/14/22 20:34 SARS-CoV-2, RNA, NAAT NEGATIVE (NEGATIVE) 10/14/22 20:46 Diagnostic Findings Chest x-ray as per my interpretation cardiomegaly, atelectasis, elevated right hemidiaphragm EKG as per my interpretation :Rate 100, NSR, normal axis, LVH, T wave abnormalities inferior leads
[2022-10-14] MEDS ORDERED: APIXABAN 5 MG TABLET PO STA (23:10)
[2022-10-14] MEDS ORDERED: traMADol HCL 50 MG TABLET PO PRN (23:10)
[2022-10-14] MEDS ORDERED: PROMETHAZINE HCL 6.25 MG in SODIUM CHLORIDE 0.9% 50 ML IV PRN (23:10)
[2022-10-15] MEDS ORDERED: ACETAMINOPHEN 325 MG TAB PO PRN (00:34)
[2022-10-15] MEDS ORDERED: DOCUSATE SODIUM 100 MG CAP PO PRN (00:34)
[2022-10-15] MEDS ORDERED: METOPROLOL TARTRATE 1 MG/ML VIAL IV STA (03:28)
[2022-10-15] MEDS ORDERED: METOPROLOL TARTRATE 25 MG TAB PO SCH ×2 (03:50→09:00)
[2022-10-15] MEDS ORDERED: XOPENEX/ATROVENT 1.25mg/0.5MG NEB COMBO NEB SCH (06:00)
[2022-10-15 06:16] LABS: Hematocrit (blood only) 27.3 % (42.0-52.0); Hemoglobin 8.3 g/dl (14.0-18.0); Mean Corpuscular Hemoglobin 29.3 pg (25.0-34.0); Mean Corpuscular Hgb Conc 30.4 g/dL (32.0-36.0); Mean Corpuscular Volume 96.5 fL (80.0-100.0); Mean Platelet Volume 9.6 fL (9.4-12.4); Platelet Count 342 K/uL (130-400); RDW Coefficient of Variation 17.2 % (11.5-14.5); RDW Standard Deviation 60.9 fL (36.4-46.3); Red Blood Count 2.83 M/uL (4.70-6.10); White Blood Count 10.01 K/ul (4.8-10.8)
[2022-10-15] MEDS: LEVALBUTEROL 1.25 MG/3 ML NEB NEB SCH ×2 (07:22→12:53)
[2022-10-15] MEDS: IPRATROPIUM BROMIDE NEB SOLN 0.02% 2.5 ML VIAL INH SCH ×2 (07:22→12:53)
[2022-10-15 07:27] LABS: Calcium 9.3 mg/dl (8.6-10.3); Potassium 4.4 mmol/L (3.5-5.1)
[2022-10-15 07:32] LABS: BUN Creatinine Ratio 13.4 (10-20); Creatinine Clr Calc Pharmacy 33.5 ml/min; Est GFR (African American) 36.6 ml/min; Est GFR (Non-African American) 31.5 ml/min
[2022-10-15 07:45] LABS: Basophils # (auto) 0.06 K/uL (0-0.2); Basophils % (auto) 0.6 %; Immature Granulocytes # (auto) 0.05 K/uL (0.01-0.20); Immature Granulocytes % (auto) 0.5 %; Lymphocytes # (auto) 0.39 K/uL (1.2-3.4); Lymphocytes % (auto) 3.9 %; Monocytes # (auto) 0.05 K/uL (0.11-0.59); Monocytes % (auto) 0.5 %; Neutrophils # (auto) 9.46 K/uL (1.40-6.50); Neutrophils % (auto) 94.5 %
--- NOTE | 2022-10-15 08:13 | XRay Report ---
XR chest 1V portable CLINICAL HISTORY: sob TECHNIQUE: Single frontal radiograph of the chest was obtained. Comparison: Comparison is made to chest radiograph for 2022 FINDINGS: No lines and tubes are seen. The aorta is tortuous. The remainder of the cardiomediastinal silhouette is unremarkable. The lungs are clear apart from focal scarring in the left upper lobe seen on prior exam.. No evidence of pleural effusion or pneumothorax. IMPRESSION: No acute abnormalities, in particular no evidence of pneumonia. ACT 112: Negative or not required by law. Electronically signed by: Kai Alonos M.D. 10/15/2022 8:12 AM
[2022-10-15] MEDS ORDERED: FLUTICASONE PROPIONATE NA SPR 16 GM BTL SCH (09:00)
[2022-10-15] MEDS ORDERED: DOXYCYCLINE HYCLATE 100 MG CAP PO SCH (09:00)
[2022-10-15] MEDS ORDERED: predniSONE 20 MG TAB PO SCH (09:00)
[2022-10-15] MEDS ORDERED: EZETIMIBE 10 MG TABLET PO SCH (09:00)
[2022-10-15] MEDS ORDERED: allopurinoL 300 MG TAB PO SCH (09:00)
[2022-10-15] MEDS ORDERED: APIXABAN 5 MG TABLET PO SCH (09:00)
[2022-10-15] MEDS ORDERED: CLOPIDOGREL BISULFATE 75 MG TAB PO SCH (09:00)
[2022-10-15] MEDS ORDERED: PANTOprazole 40 MG TAB PO SCH (09:00)
[2022-10-15] MEDS ORDERED: amLODIPine BESYLATE 5 MG TAB PO SCH (09:00)
--- NOTE | 2022-10-15 11:29 | Pulmonary Consultation ---
Date of Consultation October 15, 2022 Assessment & Plan (1) Chronic respiratory failure with hypoxia, on home O2 therapy: (2) COPD exacerbation: (3) Acute respiratory failure with hypoxia: (4) Aortic stenosis: (5) Abnormal CXR: Plan Impression: 72-year-old male with a presumptive diagnosis of COPD although his CT scan did not demonstrate significant emphysema, he does not have an extensive tobacco exposure history, and he is never had pulmonary function testing admitted with shortness of breath and wheezing. He has known aortic stenosis which is borderline severe as well as a significant aneurysm. He is back to baseline currently. Recommendations: 1. Possible COPD: The patient will require outpatient PFTs when he is clinically stable. At this point time would recommend initiation of Anoro 1 puff daily which he should continue to use on a regular basis. He continues to use Combivent/DuoNeb on an as-needed basis. Would complete a 5-day course of prednisone 20 mg a day as well as azithromycin 250 mg a day. We would be happy to see him back in the pulmonary clinic to arrange for outpatient follow-up. 2. Hypoxemic respiratory failure: Acute on chronic. Would recommend ambulating the patient discharged to ascertain what oxygen requirement he requires. 3. Sleep disordered breathing: Continue to follow with the [facility] sleep medicine clinic. 4. Abnormal chest x-ray: The patient has evidence of what appears to be fibrotic changes in the left upper lobe. These do appear to be chronic and according to the patient are temporally related to a prior history of chest wall trauma. Would follow clinically at this point in time and correlate with his PFTs and determine whether or not additional imaging is required. The patient and his daughter ask about being dismissed from the hospital. I advised them that if he is back to his pulmonary baseline, he can be dismissed from the hospital and follow-up with us in the clinic. Ultimate disposition is per the patient's primary admitting service. Thanks for the opportunity to participate in the care of this patient. Feel free to contact us with questions or concerns. History of Present Illness Attending Physician: Mohinder Zepeda MD History of Present Illness Asked by hospitalist to evaluate this patient with shortness of breath and possible COPD exacerbation. History is obtained from discussion with the patient as well as with his daughter at bedside and reviewed electronic medical record. Patient is a 72-year-old male who quit smoking in the after about a [id number] history. He has a history of severe aortic stenosis as well as an aortic aneurysm and is pending surgical evaluation at [facility]. He was admitted back in July with presumptive COPD exacerbation and treated with DuoNebs. He was advised to use oxygen 24/7 at that point in time. He had previously been using nocturnal oxygen in conjunction with his CPAP. He is established with the [facility] sleep medicine clinic. The patient presented to the emergency room yesterday evening with acute onset of shortness of breath. He states he was at home and developed cute onset of coughing and wheezing. This prompted return to the emergency room. He was treated with Solu-Medrol and bronchodilators. This morning he states he feels like he is back to his baseline. The patient has never undergone pulmonary function testing previously. He is never been evaluated by pulmonary. He does feel that the albuterol Atrovent rescue nebulizer inhaler combination is beneficial with regards to his symptoms. He does have chronic lower extremity edema. He denies fevers chills night sweats or other constitutional symptoms. The patient reports a distant history of left-sided chest wall trauma. He states he was diagnosed with a pulmonary contusion and has been advised by multiple providers in the past that he has some scarring in his lung. His last CT scan was approximately 12 years ago. Allergies Allergy/AdvReac Type Severity Reaction Status Date / Time RUBENS Inhibitors AdvReac Intermediate DROPS Verified 10/11/22 10:06 BLOOD PRESSURE lisinopril AdvReac Intermediate DROPS Verified 10/11/22 10:06 BLOOD PRESSURE Home Medications Medication Instructions Recorded Confirmed Type atorvastatin 80 mg tablet 80 mg PO QPM 03/25/19 10/14/22 History clopidogrel 75 mg tablet 75 mg PO QAM 03/25/19 10/14/22 History fluticasone propionate 50 2 spray intranasal DAILY 03/25/19 10/14/22 History mcg/actuation nasal spray,suspension cholecalciferol (vitamin D3) 50 2,000 unit PO QAM 06/10/20 10/14/22 History mcg (2,000 unit) capsule (D3-1999) amlodipine 2.5 mg tablet 2.5 mg PO QAM 12/30/20 10/14/22 History iron,carbonyl 65 mg-vitamin C 125 1 tab PO QAM 12/30/20 10/14/22 History mg tablet,delayed release (Vitron-C) albuterol sulfate 90 mcg/actuation 2 puff inhalation Q4 PRN Wheezing 10/31/21 10/14/22 History aerosol inhaler allopurinol 300 mg tablet 150 mg PO QAM 10/31/21 10/14/22 History metoprolol tartrate 25 mg tablet 12.5 mg PO BID 10/31/21 10/14/22 History pantoprazole 40 mg tablet,delayed 40 mg PO QAM 02/25/22 10/14/22 History release ezetimibe 10 mg tablet 10 mg PO QAM 08/04/22 10/14/22 History Oxygen Home #1 ea 08/09/22 10/14/22 Rx apixaban 5 mg tablet 5 mg PO BID 10/11/22 10/14/22 History docusate sodium 100 mg capsule 100 mg PO BID PRN Constipation 10/11/22 10/14/22 History ipratropium 0.5 mg-albuterol 3 mg 3 ml inhalation Q6H PRN Shortness 10/14/22 10/14/22 History (2.5 mg base)/3 mL nebulization Of Breath soln Patient History Medical History Aneurysm CT chest w/o contrast 06/25/22 - 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 Ascending thoracic aorta at the level of the right pulmonary artery 4.2 cm unchanged. 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 Descending thoracic aorta at the level of the left atrium again up to 4.7 cm. Aortic stenosis Thoracic aortic atherosclerosis, densely calcified coronary arteries, severely calcified aortic valve, aneurysmal outpouching of the aortic arch. CKD (chronic kidney disease), stage III follows with S nephrology Gastric ulcer Hearing deficit BL NAILS History of GI bleed Hx of gout Hx SBO Hyperlipidemia Hypertension ANDREW (iron deficiency anemia) Obesity Paroxysmal ventricular tachycardia 19 beat run of ventricular tachycardia via Zio monitoring PFO (patent foramen ovale) per records. follows with Dr. 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 TO HAVE SLIGHT BALANCE ISSUES Surgical History History of esophagogastroduodenoscopy (EGD) History of lumbar surgery 1999 History of tonsillectomy History of tonsillectomy and adenoidectomy History of tooth extraction Hx of colonoscopy Hx of hernia repair lysis of adhesions, incisional hernia repair laparoscopically 01/28/2010 at [facility] - Dr Desouza S/P AAA repair 01/13/2009 - Dr Suazo ([facility]) Family History Other AAA (abdominal aortic aneurysm) Hypertension No family history of adverse response to anesthesia Social History Smoking Status: Former smoker Tobacco Type: Cigarettes and Cigars Cigarettes Per Day: Former cigarette. Quit 1998; Second Hand Exposure: No; Do You Dip or Chew Tobacco: No; Hx Alcohol Use: Yes Alcohol type: beer Alcohol type Comment: 3 beers a day Hx Substance Use: No Preferred Language: Monegasque Communication Ability: Effective Organic Chemist Required: No Beliefs That Will Affect Care: None marital status: Current Living Situation: Spouse current occupational status: employed Other Information That Helps Us Care for You: No Feels Safe at Home: Yes Safety Concerns: Feels Safe At This Time Assistive Devices: None Review of Systems Review of Systems: All systems reviewed & are unremarkable except as noted in Subjective Physical Exam Constitutional: WD/WN, vitals as above Patient is very hard of hearing Neck: trachea midline, no thyromegaly Respiratory: no respiratory distress, no labored breathing, no cough and not tachypneic Auscultation: + wheezes Cardiovascular: RRR, no murmur, no edema Gastrointestinal (Abdomen): normal bowel sounds, soft, nontender, no hepatosplenomegaly Musculoskeletal: Extremities: extremities normal to inspection Skin: no rashes, warm and dry Neurologic: Nonfocal exam Lymphatic: no cervical lymphadenopathy Results & Data Results & Data Vital Signs (Past 12 Hours) Vital Signs Temp Pulse Pulse Resp BP BP Pulse Ox 10/15/22 10:00 10/15/22 08:31 36.9 C 79 16 161/75 H 96 10/15/22 07:23 76 20 98 10/15/22 07:09 86 10/15/22 03:49 36.5 C 86 18 149/77 H 95 10/15/22 03:00 104 H 10/15/22 00:54 36.7 C 96 H 20 167/92 H 95 10/15/22 00:01 100 H 19 121/70 92 10/14/22 23:30 93 H 19 132/75 99 O2 Del Method O2 Flow Rate 10/15/22 10:00 Nasal Cannula 3 10/15/22 08:31 Room Air 10/15/22 07:23 Nasal Cannula 3 10/15/22 07:09 10/15/22 03:49 Nasal Cannula 3 10/15/22 03:00 10/15/22 00:54 Nasal Cannula 3 10/15/22 00:01 Nasal Cannula 3 10/14/22 23:30 Nasal Cannula 3 Critical Care Results & Data Vital Signs (Past 12 Hours) Vital Signs Temp Pulse Pulse Resp BP BP Pulse Ox 10/15/22 10:00 10/15/22 08:31 36.9 C 79 16 161/75 H 96 10/15/22 07:23 76 20 98 10/15/22 07:09 86 10/15/22 03:49 36.5 C 86 18 149/77 H 95 10/15/22 03:00 104 H 10/15/22 00:54 36.7 C 96 H 20 167/92 H 95 10/15/22 00:01 100 H 19 121/70 92 10/14/22 23:30 93 H 19 132/75 99 O2 Del Method O2 Flow Rate 10/15/22 10:00 Nasal Cannula 3 10/15/22 08:31 Room Air 10/15/22 07:23 Nasal Cannula 3 10/15/22 07:09 10/15/22 03:49 Nasal Cannula 3 10/15/22 03:00 10/15/22 00:54 Nasal Cannula 3 10/15/22 00:01 Nasal Cannula 3 10/14/22 23:30 Nasal Cannula 3 Lab & Micro Results (Past 24 Hours) RBC 2.83 M/uL (4.70-6.10) L 10/15/22 WBC 10.01 K/ul (4.8-10.8) 10/15/22 Hgb 8.3 g/dl (14.0-18.0) L 10/15/22 Hct 27.3 % (42.0-52.0) L 10/15/22 MCV 96.5 fL (80.0-100.0) 10/15/22 MCH 29.3 pg (25.0-34.0) 10/15/22 MCHC 30.4 g/dL (32.0-36.0) L 10/15/22 RDW Standard Deviation 60.9 fL (36.4-46.3) H 10/15/22 RDW Coefficient of Variation 17.2 % (11.5-14.5) H 10/15/22 Plt Count 342 K/uL (130-400) 10/15/22 MPV 9.6 fL (9.4-12.4) 10/15/22 Neutrophils (%) (Auto) 94.5 % 10/15/22 Lymphocytes (%) (Auto) 3.9 % 10/15/22 Monocytes # (Auto) 0.05 K/uL (0.11-0.59) L 10/15/22 Eosinophils # (Auto) 0.00 K/uL (0-0.50) 10/15/22 Immature Granulocyte % (Auto) 0.5 % 10/15/22 Neutrophils # (Auto) 9.46 K/uL (1.40-6.50) H 10/15/22 Lymphocytes # (Auto) 0.39 K/uL (1.2-3.4) L 10/15/22 Monocytes # (Auto) 0.05 K/uL (0.11-0.59) L 10/15/22 Eosinophils # (Auto) 0.00 K/uL (0-0.50) 10/15/22 Basophils # (Auto) 0.06 K/uL (0-0.2) 10/15/22 Immature Granulocyte # (Auto) 0.05 K/uL (0.01-0.20) 3 Na 136 mmol/L (136-145) 10/15/22 K 4.4 mmol/L (3.5-5.1) 10/15/22 Cl 104 mmol/L (98-107) 10/15/22 CO2 23 mmol/L (21-32) 10/15/22 Anion Gap 9 (3-11) 10/15/22 BUN 27 mg/dl (6-23) H 10/15/22 Creatinine 2.02 mg/dl (0.6-1.4) H 10/15/22 Estimated GFR ( Amer) 36.6 ml/min 10/15/22 Estimated GFR (Non-Af Amer) 31.5 ml/min 10/15/22 BUN/Creatinine Ratio 13.4 (10-20) 10/15/22 Glu 156 mg/dl (70-99(Fasting)) H 10/15/22 Ca 9.3 mg/dl (8.6-10.3) 10/15/22 Phosphorus Level 4.3 mg/dl (2.5-4.9) 10/14/22 Total Bilirubin 0.4 mg/dl (0.2-1.0) 10/14/22 AST 13 U/L (13-39) 10/14/22 ALT 9 U/L (7-52) 10/14/22 Alkaline Phosphatase 88 U/L (34-104) 10/14/22 TP 7.0 gm/dl (6.0-8.3) 10/14/22 Albumin 3.9 gm/dl (3.4-5.0) 10/14/22 Globulin 3.1 gm/dl (2.5-4.0) 10/14/22 Albumin/Globulin Ratio 1.3 (0.9-2) 10/14/22 Mg 2.0 mg/dl (1.7-2.4) 10/14/22 20:34 Calcium Level 9.3 mg/dl (8.6-10.3) 10/15/22 05:47 Diagnostic Findings (Past 24 Hours) Chest X-Ray 10/14/22 20:36 XR chest 1V portable CLINICAL HISTORY: sob TECHNIQUE: Single frontal radiograph of the chest was obtained. Comparison: Comparison is made to chest radiograph for 2022 FINDINGS: No lines and tubes are seen. The aorta is tortuous. The remainder of the cardiomediastinal silhouette is unremarkable. The lungs are clear apart from focal scarring in the left upper lobe seen on prior exam.. No evidence of pleural effusion or pneumothorax. IMPRESSION: No acute abnormalities, in particular no evidence of pneumonia. ACT 112: Negative or not required by law. Electronically signed by: Kai Alonso M.D. 10/15/2022 8:12 AM I & O Totals 24 Hours 10/14/22 10/15/22 10/16/22 06:59 06:59 06:59 Intake Total 655 / 655 Output Total 400 / 400 Balance 255 / 255 Cumulative 10/14/22 20:11 thru 10/15/22 06:27 Intake Total 655 Output Total 400 Balance 255 RT Ventilator Mngmt (Last Documented) Ventilator Ordered Settings Respiratory Rate 16 10/15/22 08:31 Ventilator - PT Measurements Respiratory Rate 16 PG Care Time/CCT Total # of Minutes Spent Total Time Spent with Patient: Total time spent is greater than 50% in coordination of care (as documented) at patient's floor/unit and/or counseling patient: Coding Level of Care Code 58129 INT INP/OBS CARE 3/75MIN Diagnoses Chronic respiratory failure with hypoxia, on home O2 therapy J96.11; Z99.81 COPD exacerbation J44.1 Acute respiratory failure with hypoxia J96.01 Aortic stenosis I35.0 Abnormal CXR R93.89
[2022-10-15] MEDS ORDERED: UMECLIDINIUM/VILANTEROL 62.5/25MCG 7 PUFFS/INHALER INH SCH (12:00)
--- NOTE | 2022-10-15 13:51 | Discharge Summary ---
Date of Service October 15, 2022 Admission HPI Per Admitting Provider History obtained from patient, family, and records. 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 Last confinement July 2022 for COPD exacerbation. Patient seen at PCPs office last month for COPD exacerbation. Prednisone course prescribed. Last week, patient noted worsening cough/wheezing symptoms productive of yellow sputum. Patient denies aspiration or controlled GERD. No chest pain. Patient completed COVID-19 vaccination. No fluid retention. EMS called with worsening symptoms. Azithromycin, Solu-Medrol and neb treatment administered at the ER. 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 Admission Exam Per Admitting Provider GENERAL: uncomfortable, obese, slightly hard of hearing, respiratory distress, currently receiving a breathing treatment SKIN: Pallor, warm HEENT: Sparse hair, pale palpebral conjunctivae, no ptosis, dry buccal mucosa, nasal cannula in place NECK : Supple, short neck, no tenderness CHEST : Decreased breath sounds, diffuse expiratory wheezes, no tenderness HEART : RRR, tachycardic ABDOMEN: Some distention, nontender EXTREMITIES : Minimal LE swelling, no LE tenderness, no other conspicuous deformities noted NEUROLOGIC : Coherent, no facial asymmetry, slightly hard of hearing, no other gross focality Principal Diagnosis COPD exacerbation Discharge Exam General: Sitting comfortably in chair, not in distress, on NC HEENT: EOMI, MAYCOL, MMM Chest: Decreased breath sounds bilaterally with faint expiratory wheezes CVS: Regular rate and rhythm, normal heart sounds, no murmur Abdomen: Soft, non tender, not distended, normal bowel sounds Neuro: Awake, alert, oriented, conversing well, non focal Extremities: No cyanosis, clubbing or edema Discharge Data Allergies Allergy/AdvReac Type Severity Reaction Status Date / Time RUBENS Inhibitors AdvReac Intermediate DROPS Verified 10/11/22 10:06 BLOOD PRESSURE lisinopril AdvReac Intermediate DROPS Verified 10/11/22 10:06 BLOOD PRESSURE Consultations 10/14/22 22:28 ED Decision to Admit Stat 10/15/22 00:34 Consult Pulmonology Routine Ordered Studies Laboratory Results WBC 10.01 K/ul (4.8-10.8) 10/15/22 05:47 RBC 2.83 M/uL (4.70-6.10) L 10/15/22 05:47 Hgb 8.3 g/dl (14.0-18.0) L 10/15/22 05:47 Hct 27.3 % (42.0-52.0) L 10/15/22 05:47 MCV 96.5 fL (80.0-100.0) 10/15/22 05:47 MCH 29.3 pg (25.0-34.0) 10/15/22 05:47 MCHC 30.4 g/dL (32.0-36.0) L 10/15/22 05:47 RDW Std Deviation 60.9 fL (36.4-46.3) H 10/15/22 05:47 RDW Coeff of Chaka 17.2 % (11.5-14.5) H 10/15/22 05:47 Plt Count 342 K/uL (130-400) D 10/15/22 05:47 MPV 9.6 fL (9.4-12.4) 10/15/22 05:47 Immature Gran % (Auto) 0.5 % 10/15/22 05:47 Neut % (Auto) 94.5 % 10/15/22 05:47 Lymph % (Auto) 3.9 % 10/15/22 05:47 [place] % (Auto) 0.5 % 10/15/22 05:47 Eos % (Auto) 0.0 % 10/15/22 05:47 Baso % (Auto) 0.6 % 10/15/22 05:47 Neut # (Auto) 9.46 K/uL (1.40-6.50) H 10/15/22 05:47 Lymph # (Auto) 0.39 K/uL (1.2-3.4) L 10/15/22 05:47 [place] # (Auto) 0.05 K/uL (0.11-0.59) L 10/15/22 05:47 Eos # (Auto) 0.00 K/uL (0-0.50) 10/15/22 05:47 Baso # (Auto) 0.06 K/uL (0-0.2) 10/15/22 05:47 Immature Gran # (Auto) 0.05 K/uL (0.01-0.20) 10/15/22 05:47 Sodium 136 mmol/L (136-145) 10/15/22 05:47 Potassium 4.4 mmol/L (3.5-5.1) 10/15/22 05:47 Chloride 104 mmol/L (98-107) 10/15/22 05:47 Carbon Dioxide 23 mmol/L (21-32) 10/15/22 05:47 Anion Gap 9 (3-11) 10/15/22 05:47 BUN 27 mg/dl (6-23) H 10/15/22 05:47 Creatinine 2.02 mg/dl (0.6-1.4) H 10/15/22 05:47 Est Cr Clr Drug Dosing 33.5 ml/min 10/15/22 05:47 Est GFR ( Amer) 36.6 ml/min 10/15/22 05:47 Est GFR (Non-Af Amer) 31.5 ml/min 10/15/22 05:47 BUN/Creatinine Ratio 13.4 (10-20) 10/15/22 05:47 Glucose 156 mg/dl (70-99(Fasting)) H 10/15/22 05:47 Calcium 9.3 mg/dl (8.6-10.3) 10/15/22 05:47 Phosphorus 4.3 mg/dl (2.5-4.9) 10/14/22 20:34 Magnesium 2.0 mg/dl (1.7-2.4) 10/14/22 20:34 Total Bilirubin 0.4 mg/dl (0.2-1.0) 10/14/22 20:34 AST 13 U/L (13-39) 10/14/22 20:34 ALT 9 U/L (7-52) 10/14/22 20:34 Alkaline Phosphatase 88 U/L (34-104) 10/14/22 20:34 Troponin I High Sens 19.1 pg/ml (0-20) 10/14/22 20:34 Total Protein 7.0 gm/dl (6.0-8.3) 10/14/22 20:34 Albumin 3.9 gm/dl (3.4-5.0) 10/14/22 20:34 Globulin 3.1 gm/dl (2.5-4.0) 10/14/22 20:34 Albumin/Globulin Ratio 1.3 (0.9-2) 10/14/22 20:34 Lipase 51 U/L (11-82) 10/14/22 20:34 Procalcitonin < 0.05 ng/ml (0-0.5) 10/14/22 20:34 SARS-CoV-2, RNA, NAAT NEGATIVE (NEGATIVE) 10/14/22 20:46 Impressions Chest X-Ray 10/14/22 20:36 XR chest 1V portable CLINICAL HISTORY: sob TECHNIQUE: Single frontal radiograph of the chest was obtained. Comparison: Comparison is made to chest radiograph for 2022 FINDINGS: No lines and tubes are seen. The aorta is tortuous. The remainder of the cardiomediastinal silhouette is unremarkable. The lungs are clear apart from focal scarring in the left upper lobe seen on prior exam.. No evidence of pleural effusion or pneumothorax. IMPRESSION: No acute abnormalities, in particular no evidence of pneumonia. ACT 112: Negative or not required by law. Electronically signed by: Kai Alonso M.D. 10/15/2022 8:12 AM Hospital Course (1) COPD exacerbation: (2) Chronic respiratory failure with hypoxia, on home O2 therapy: (3) Stage 3b chronic kidney disease (CKD): (4) Anemia due to chronic kidney disease: Plan 72 year old male with h/o COPD, remote tobacco abuse, on chronic home oxygen who presented to the ED with worsening shortness of breath and wheezing. He was treated with antibiotics, nebs and steroids and has significantly improved and back to baseline. He was seen by pulmonology and recommendations were noted. He completed 2 step O2 eval and was saturating well in room air but required 2 L with ambulation, which is better than his baseline. He is anxious to go home. Daughter at bedside who agrees. They declined need for any physical therapy evaluation stating he is at baseline and they have adequate support at home. He is comfortable and stable for discharge home. Discharging on azithro, prednisone and anoro ellipta per pulm recommendations with OP follow up for PFTs. He has anemia of CKD and follows with hematology for iron transfusion and plan for epo therapy noted. Total Time Total Time Spent Total Time Spent (In Minutes): 35 Discharge Plan Discharge Items Patient Disposition: Home - Self-Care Reason For Visit: COPD EXC Discharge Diagnosis: COPD exacerbation Activity: Resume your previous activity Non-emergency contact: Primary Care Provider Call non-emergency contact if: you have any medication questions, your symptoms worsen and you have a fever Follow-up/Referrals: Jairo Kingston MD [Primary Care Provider] - Diet: Regular Addtl Attending Provider Instructions: Continue prednisone and azithromycin daily for 5 days Continue anoro 1 puff daily Please see pulmonology in the office Follow up with your family doctor Pending Studies at Discharge: No Stand-Alone Forms: [employer], Smoking Cessation Medications and DC Order Prescriptions: New azithromycin 250 mg Tablet 250 mg PO QAM Qty: 5 0RF prednisone 20 mg Tablet 20 mg PO DAILY Qty: 5 0RF Anoro Ellipta 62.5-25 mcg/actuation Blister With Device 1 puff inhalation DAILY Qty: 1 0RF Continued atorvastatin 80 mg tablet 80 mg PO QPM clopidogrel 75 mg tablet 75 mg PO QAM fluticasone propionate 50 mcg/actuation [place],Suspension 2 spray INTRANASAL DAILY cholecalciferol (vitamin D3) [D3-2000] 50 mcg (2,000 unit) capsule 2,000 unit PO QAM allopurinol 300 mg tablet 150 mg PO QAM albuterol sulfate 90 mcg/actuation HFA aerosol inhaler 2 puff INHALATION Q4 PRN (Reason: Wheezing) metoprolol tartrate 25 mg tablet 12.5 mg PO BID Patient Comments: TAKES 12.5 MG BID ezetimibe 10 mg Tablet 10 mg PO QAM (DME) Oxygen Home Liters Per Minute See Rx Instructions .Route Qty: 1 0RF Rx Instructions: 3 LPM with ambulation docusate sodium 100 mg Capsule 100 mg PO BID PRN (Reason: Constipation) apixaban 5 mg Tablet 5 mg PO BID amlodipine 2.5 mg Tablet 2.5 mg PO QAM Vitron-C 65 mg iron- 125 mg Tablet,Delayed Release (Dr/Ec) 1 tab PO QAM pantoprazole 40 mg tablet,delayed release (DR/EC) 40 mg PO QAM ipratropium-albuterol 0.5 mg-3 mg(2.5 mg base)/3 mL solution for nebulization 3 ml inhalation Q6H PRN (Reason: Shortness Of Breath) Discharge Orders: Discharge Order (Routine); Ordered 10/15/22 Ordered By: Mohinder Zepeda Admission Data Admit Date/Time: 10/14/22 23:06 Attending Provider: Mohinder Zepeda Admit Provider: Nicholas Thompson Primary Care Provider: Jairo Kingston Other Providers: Nicholas Thompson ; Osmany Huynh ; Rajesh Quevedo ; Teddy Dyer ; Emir Batres ; Alem Peguero ; Sonali oLya
[2022-10-15] MEDS ORDERED: ATORVASTATIN 40 MG TAB PO SCH (21:00)
[2022-10-16] MEDS ORDERED: AZITHROMYCIN 250 MG TAB PO SCH (09:00)
[2022-10-16] MEDS ORDERED: predniSONE 20 MG TAB PO SCH (09:00)
--- NOTE | 2022-10-16 12:25 | Electrocardiogram Report ---
Test Reason : Blood Pressure : / mmHG Vent. Rate : 096 BPM Atrial Rate : 000 BPM P-R Int : 000 ms QRS Dur : 088 ms QT Int : 358 ms P-R-T Axes : 000 001 013 degrees QTc Int : 452 ms Sinus rhythm Minimal voltage criteria for LVH, may be normal variant ( R in aVL ) Nonspecific ST abnormality Abnormal ECG When compared with ECG of 04-AUG-2022 07:11, Nonspecific T wave abnormality now evident in Inferior leads Confirmed by Godfrey Manzanares ([id number]) on 10/16/2022 12:24:53 PM Referred By: REFERRED SELF Confirmed By:Godfrey Manzanares
== END 2022-10-15 14:39 | disposition home or self-care (01) | DRG 190 ==
LOC: ED 20:18 → SUATTDRO 23:06 → 2W 23:06

== ENCOUNTER 2022-11-02 01:03 | Inpatient (IN) ==
[2022-11-02] MEDS ORDERED: SODIUM CHLORIDE 0.9% 500 ML IV ONE (01:09)
--- NOTE | 2022-11-02 01:10 | Emergency Department Note ---
Impression & Plan Abdominal pain, acute, right upper quadrant, History of cholelithiasis, CKD (chronic kidney disease), Chronic anemia ED Provider Note NAME: ZULMA MERA AGE: 72 SEX: M ARRIVES VIA: Ambulance INFORMANT: Patient ED PROVIDER(S): Jorge A Camarena MD CHIEF COMPLAINT: Right upper quadrant abdominal pain PLAN: Disposition: Admit MEDICAL DECISION MAKING: The patient is a pleasant 72-year-old gentleman with a past medical history of anemia of chronic disease, CKD, COPD on home oxygen, GERD, paroxysmal ventricular tachycardia, aortic stenosis, hypertension, hyperlipidemia, history of thoracic and abdominal aortic aneurysm, 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 Patient ports he still has his gallbladder. He denies any similar episodes of pain in the past. He reports feeling healthy prior to today and denies any fevers, chills, new cough, chest pain or shortness of breath. The patient reports he does have dark/black stool that is typical for him as he does take oral iron supplement. On arrival the patient is uncomfortable but no acute distress, afebrile with blood pressure 200/80s and vital signs otherwise stable. He appears euvolemic to dry. He is mild right upper quadrant tenderness without guarding or rebound and negative Ramirez sign. EKG without overt acute ischemia. CXR negative for acute cardiopulmonary process per my preliminary review. Mediastinal widening appears prior in the setting of known aortic aneurysm. WBC 11k with neutrophil predominance though no left shift, nonspecific. H/H 7.8/25.9 approximate 2 prior values in the past month. MCV is macrocytic at 102. Chemistry without metabolic acidosis. Creatinine 2.2 with BUN 27, similar to prior range values in setting of CKD. Total bilirubin within normal limits with direct bilirubin 0.3, slightly above upper limit of normal. AST is 99 and alk phos 128, nonspecific. Lipase is not elevated. UA without convincing evidence of infection. CT of the abdomen pelvis demonstrates mild stranding surrounding the gallbladder where acute cholecystitis cannot be excluded. Otherwise normal gallbladder and biliary system. No calcified stone seen on CT imaging though ultrasound in September did demonstrate cholelithiasis. Redemonstration of patient's known aortic aneurysm is seen and correlates to recent imaging. Upon evaluation the patient did report feeling improved following IV fluid hydration, APAP, famotidine, Zofran and morphine. I did review findings with the patient and family at the bedside and they agree with plan for admission for further evaluation and management. Formal gallbladder ultrasound ordered and pending to help further characterize CT findings. [facility] the patient for [facility]. Ultrasound subsequently completed and demonstrates findings suspicious for cholecystitis with punctate stone within the gallbladder with note of gallbladder distention and thickened wall of up to 5 mm with trace pericholecystic fluid. Admitting team aware. Further management per admitting team. Triage Nursing notes reviewed and agree them. Prior/outside medical records reviewed Vital Signs: reviewed Differential diagnosis: Appendicitis, testicular torsion, infections, diverticulitis, UTI, obstruction, mesenteric ischemia, aortic pathology, inflammatory bowel disease, renal colic, PUD, pancreatitis, biliary pathology, hernia, volvulus, constipation, as well as other pathologies. ER treatment provided: See below. Diagnostics interpreted by me: ECG: Sinus rhythm with first-degree AV block, 70 bpm, no ectopy, no overt ST elevation or depression, QTc 464, QRS 96. Cardiac Monitoring: An order for continuous cardiac monitoring was placed and demonstrated sinus rhythm, 70 bpm, no ectopy. Laboratory studies: See below Imaging studies: See below Consultation(s): [facility] for [facility]. 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 Patient ports he still has his gallbladder. He denies any similar episodes of pain in the past. He reports feeling healthy prior to today and denies any fevers, chills, new cough, chest pain or shortness of breath. The patient reports he does have dark/black stool that is typical for him as he does take oral iron supplement. ROS: See above HPI for pertinent positives & negatives. A total of 10 systems reviewed and were otherwise negative. VITALS:See Below PHYSICAL EXAMINATION: GENERAL: Awake, alert, uncomfortable-appearing, in no distress HENT: Normocephalic, atraumatic. Oropharynx with dry mucous membranes and otherwise unremarkable. EYES: Normal conjunctiva. Sclera non-icteric. NECK: Supple. No nuchal rigidity. FROM. No JVD. RESPIRATORY: Clear to auscultation. CARDIAC: Regular rate, normal rhythm. Extremities warm and well perfused. Pulses equal. ABDOMEN: Soft, non-distended. Mild right upper quadrant tenderness to palpation. No rebound or guarding. Negative Ramirez sign. RECTAL: Deferred. MUSCULOSKELETAL: Chest examination reveals no tenderness. The back is symmetrical on inspection without obvious abnormality. There is no CVA tenderness to palpation. No joint edema. LOWER EXTREMITIES: Calves are equal size bilaterally and non-tender. No edema. No discoloration. NEURO: Normal sensorium. No sensory or motor deficits noted. SKIN: No rash or jaundice noted. 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 Ascending thoracic aorta at the level of the right pulmonary artery 4.2 cm unchanged. 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 Descending thoracic aorta at the level of the left atrium again up to 4.7 cm. Aortic stenosis Thoracic aortic atherosclerosis, densely calcified coronary arteries, severely calcified aortic valve, aneurysmal outpouching of the aortic arch. CKD (chronic kidney disease), stage III follows with [facility] nephrology Gastric ulcer Hearing deficit BL NAILS History of GI bleed Hx of gout Hx SBO Hyperlipidemia Hypertension ANDREW (iron deficiency anemia) Obesity Paroxysmal ventricular tachycardia 19 beat run of ventricular tachycardia via Zio monitoring PFO (patent foramen ovale) per records. follows with Dr. 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 TO HAVE SLIGHT BALANCE ISSUES Surgical History History of esophagogastroduodenoscopy (EGD) History of lumbar surgery 1999 History of tonsillectomy History of tonsillectomy and adenoidectomy History of tooth extraction Hx of colonoscopy Hx of hernia repair lysis of adhesions, incisional hernia repair laparoscopically 01/28/2010 at [facility] - Dr Desouza S/P AAA repair 01/13/2009 - Dr Suazo ([facility] AT [facility]) Family History Other AAA (abdominal aortic aneurysm) Hypertension No family history of adverse response to anesthesia Social History Smoking Status: Former smoker Tobacco Type: Cigarettes Age Started Using Tobacco: 18; Cigarettes Per Day: Former cigarette. Quit 1998; Second Hand Exposure: No; Do You Dip or Chew Tobacco: No; Hx Alcohol Use: Yes Alcohol type: beer Alcohol type Comment: 3 beers a day Hx Substance Use: No Preferred Language: Hungarian Communication Ability: Effective Pipelines Laborer Required: No Beliefs That Will Affect Care: None marital status: Current Living Situation: Spouse current occupational status: employed Feels Safe at Home: Yes Assistive Devices: Cane and Walker Allergies Allergies Allergy/AdvReac Type Severity Reaction Status Date / Time RUBENS Inhibitors AdvReac Intermediate DROPS Verified 11/02/22 01:45 BLOOD PRESSURE lisinopril AdvReac Intermediate DROPS Verified 11/02/22 01:45 BLOOD PRESSURE Home Meds Home Medications Medication Instructions Recorded Confirmed atorvastatin 80 mg tablet 80 mg PO QPM 03/25/19 11/02/22 clopidogrel 75 mg tablet 75 mg PO QAM 03/25/19 11/02/22 fluticasone propionate 50 2 spray intranasal DAILY 03/25/19 11/02/22 mcg/actuation nasal spray,suspension cholecalciferol (vitamin D3) 50 2,000 unit PO QAM 06/10/20 11/02/22 mcg (2,000 unit) capsule (D3-1999) amlodipine 2.5 mg tablet 2.5 mg PO QAM 12/30/20 11/02/22 iron,carbonyl 65 mg-vitamin C 125 1 tab PO QAM 12/30/20 11/02/22 mg tablet,delayed release (Vitron-C) albuterol sulfate 90 mcg/actuation 2 puff inhalation Q4 PRN Wheezing 10/31/21 11/02/22 aerosol inhaler allopurinol 300 mg tablet 150 mg PO QAM 10/31/21 11/02/22 metoprolol tartrate 25 mg tablet 12.5 mg PO BID 10/31/21 11/02/22 pantoprazole 40 mg tablet,delayed 40 mg PO QAM 02/25/22 11/02/22 release ezetimibe 10 mg tablet 10 mg PO QAM 08/04/22 11/02/22 apixaban 5 mg tablet 5 mg PO BID 10/11/22 11/02/22 docusate sodium 100 mg capsule 100 mg PO BID PRN Constipation 10/11/22 11/02/22 ipratropium 0.5 mg-albuterol 3 mg 3 ml inhalation Q6H PRN Shortness 10/14/22 11/02/22 (2.5 mg base)/3 mL nebulization Of Breath soln umeclidinium 62.5 mcg-vilanterol 1 inh inhalation DAILY 11/02/22 11/02/22 25 mcg/actuation powdr for inhalation (Anoro Ellipta) Previous Rx's Medication Instructions Recorded Oxygen Home #1 ea 08/09/22 Results & Data (ED) Vital Signs Vital Signs - 24 hr 11/02/22 01:08 11/02/22 01:18 11/02/22 01:30 Temperature 36.9 C Temperature Source Oral Pulse Rate 71 68 68 Pulse Rate [] Pulse Rate from SpO2 Sensor 66 Pulse Rhythm Regular Pulse Rhythm [] Pulse Strength Normal Pulse Strength [] Respiratory Rate 18 22 Respiratory Effort / Characteristics Non-Labored Spontaneous Respiratory Depth Normal Respiratory Pattern Regular Blood Pressure 201/80 H 208/93 H Blood Pressure [] Blood Pressure Mean 120 131 Blood Pressure Mean [] Blood Pressure Position Lying Blood Pressure Position [] Pulse Oximetry 96 99 Oxygen Delivery Method Nasal Cannula Room Air Oxygen Flow Rate 2 Sepsis Recent Fever Within 48 Hours No Sepsis New/Unexplained Change in Mental Status N/A Sepsis Action Taken by Nursing No Action Required 11/02/22 02:21 11/02/22 02:30 11/02/22 03:00 Temperature Temperature Source Pulse Rate Pulse Rate [] Pulse Rate from SpO2 Sensor 83 74 73 Pulse Rhythm Pulse Rhythm [] Pulse Strength Pulse Strength [] Respiratory Rate Respiratory Effort / Characteristics Respiratory Depth Respiratory Pattern Blood Pressure 196/108 H 184/87 H 211/98 H Blood Pressure [] Blood Pressure Mean 137 119 135 Blood Pressure Mean [] Blood Pressure Position Blood Pressure Position [] Pulse Oximetry 93 98 99 Oxygen Delivery Method Room Air Room Air Nasal Cannula Oxygen Flow Rate 2 Sepsis Recent Fever Within 48 Hours Sepsis New/Unexplained Change in Mental Status Sepsis Action Taken by Nursing 11/02/22 03:29 11/02/22 03:30 11/02/22 04:00 Temperature Temperature Source Pulse Rate 84 78 72 Pulse Rate [] Pulse Rate from SpO2 Sensor 78 71 Pulse Rhythm Pulse Rhythm [] Pulse Strength Pulse Strength [] Respiratory Rate 15 23 14 Respiratory Effort / Characteristics Respiratory Depth Respiratory Pattern Blood Pressure 176/69 H 189/87 H 196/100 H Blood Pressure [] Blood Pressure Mean 104 121 132 Blood Pressure Mean [] Blood Pressure Position Blood Pressure Position [] Pulse Oximetry 99 99 98 Oxygen Delivery Method Nasal Cannula Nasal Cannula Nasal Cannula Oxygen Flow Rate 2 2 2 Sepsis Recent Fever Within 48 Hours Sepsis New/Unexplained Change in Mental Status Sepsis Action Taken by Nursing 11/02/22 05:09 11/02/22 06:45 11/02/22 06:56 Temperature 36.6 C Temperature Source Oral Pulse Rate 66 66 65 Pulse Rate [] Pulse Rate from SpO2 Sensor Pulse Rhythm Pulse Rhythm [] Pulse Strength Pulse Strength [] Respiratory Rate 18 Respiratory Effort / Characteristics Respiratory Depth Respiratory Pattern Blood Pressure 165/86 H 165/86 H Blood Pressure [] Blood Pressure Mean 112 Blood Pressure Mean [] Blood Pressure Position Blood Pressure Position [] Pulse Oximetry 100 Oxygen Delivery Method Oxygen Flow Rate 3 Sepsis Recent Fever Within 48 Hours Sepsis New/Unexplained Change in Mental Status Sepsis Action Taken by Nursing 11/02/22 07:00 Temperature Temperature Source Pulse Rate Pulse Rate [] 63 Pulse Rate from SpO2 Sensor Pulse Rhythm Pulse Rhythm [] Regular Pulse Strength Pulse Strength [] Normal Respiratory Rate 18 Respiratory Effort / Characteristics Non-Labored Respiratory Depth Normal Respiratory Pattern Regular Blood Pressure Blood Pressure [] 178/96 H Blood Pressure Mean Blood Pressure Mean [] 123 Blood Pressure Position Blood Pressure Position [] Lying Pulse Oximetry 100 Oxygen Delivery Method Nasal Cannula Oxygen Flow Rate 3 Sepsis Recent Fever Within 48 Hours Sepsis New/Unexplained Change in Mental Status Sepsis Action Taken by Nursing Laboratory Data Attestation: I reviewed the patient's lab results. 11/02/22 05:04 11/02/22 01:00 Lab Results 11/02/22 11/02/22 11/02/22 Range/Units 01:00 01:00 01:00 WBC 11.16 H (4.8-10.8) K/ul RBC 2.58 L (4.70-6.10) M/uL Hgb 7.8 L (14.0-18.0) g/dl Hct 26.5 L (42.0-52.0) % MCV 102.7 H (80.0-100.0) fL MCH 30.2 (25.0-34.0) pg MCHC 29.4 L (32.0-36.0) g/dL RDW Std Deviation 74.3 H (36.4-46.3) fL RDW Coeff of Chaka 19.9 H (11.5-14.5) % Plt Count 156 (130-400) K/uL MPV 10.9 (9.4-12.4) fL Immature Gran % (Auto) 0.4 % Neut % (Auto) 86.1 % Lymph % (Auto) 6.1 % [place] % (Auto) 3.9 % Eos % (Auto) 2.8 % Baso % (Auto) 0.7 % Neut # (Auto) 9.62 H (1.40-6.50) K/uL Lymph # (Auto) 0.68 L (1.2-3.4) K/uL [place] # (Auto) 0.43 (0.11-0.59) K/uL Eos # (Auto) 0.31 (0-0.50) K/uL Baso # (Auto) 0.08 (0-0.2) K/uL Immature Gran # (Auto) 0.04 (0.01-0.20) K/uL Polychromasia 2+ APTT (21.0-31.0) Seconds PTT Ratio Sodium 139 (136-145) mmol/L Potassium 3.6 (3.5-5.1) mmol/L Chloride 105 (98-107) mmol/L Carbon Dioxide 23 (21-32) mmol/L Anion Gap 11 (3-11) BUN 27 H (6-23) mg/dl Creatinine 2.24 H (0.6-1.4) mg/dl Est Cr Clr Drug Dosing 30.4 ml/min Est GFR ( Amer) 32.3 ml/min Est GFR (Non-Af Amer) 27.8 ml/min BUN/Creatinine Ratio 12.1 (10-20) Glucose 161 H (70-99(Fasting)) mg/dl Calcium 9.2 (8.6-10.3) mg/dl Magnesium 2.0 (1.7-2.4) mg/dl Total Bilirubin 0.8 (0.2-1.0) mg/dl Direct Bilirubin 0.3 H (0-0.2) mg/dl AST 99 H (13-39) U/L ALT 42 (7-52) U/L Alkaline Phosphatase 128 H (34-104) U/L Total Protein 7.3 (6.0-8.3) gm/dl Albumin 4.1 (3.4-5.0) gm/dl Globulin 3.2 (2.5-4.0) gm/dl Albumin/Globulin Ratio 1.3 (0.9-2) Lipase 55 (11-82) U/L Urine Color Yellow Urine Appearance Clear (Clear) Urine pH 6.0 (4.5-7.5) Ur Specific [place] 1.012 (1.000-1.030) Urine Protein 2+ H (Negative) Urine Glucose (UA) Negative (Negative) Urine Ketones Negative (Negative) Urine Blood Negative (Negative) Urine Nitrite Negative (Negative) Urine Bilirubin Negative (Negative) Urine Urobilinogen Negative (Negative) Ur Leukocyte Esterase Negative (Negative) Urine WBC (Auto) 1-5 (0-5) /hpf Urine RBC (Auto) 0-4 (0-4) /hpf U Hyaline Cast (Auto) 0 (0-5) /lpf U Epithel Cells (Auto) 0-5 (0-5) /lpf Urine Bacteria (Auto) Negative (Negative) SARS-CoV-2, RNA, NAAT (NEGATIVE) Blood Type Antibody Screen Crossmatch 11/02/22 11/02/22 11/02/22 Range/Units 01:00 05:04 05:04 WBC (4.8-10.8) K/ul RBC (4.70-6.10) M/uL Hgb 7.8 L (14.0-18.0) g/dl Hct 25.9 L (42.0-52.0) % MCV (80.0-100.0) fL MCH (25.0-34.0) pg MCHC (32.0-36.0) g/dL RDW Std Deviation (36.4-46.3) fL RDW Coeff of Chaka (11.5-14.5) % Plt Count (130-400) K/uL MPV (9.4-12.4) fL Immature Gran % (Auto) % Neut % (Auto) % Lymph % (Auto) % [place] % (Auto) % Eos % (Auto) % Baso % (Auto) % Neut # (Auto) (1.40-6.50) K/uL Lymph # (Auto) (1.2-3.4) K/uL [place] # (Auto) (0.11-0.59) K/uL Eos # (Auto) (0-0.50) K/uL Baso # (Auto) (0-0.2) K/uL Immature Gran # (Auto) (0.01-0.20) K/uL Polychromasia APTT 26.4 (21.0-31.0) Seconds PTT Ratio 0.9 Sodium (136-145) mmol/L Potassium (3.5-5.1) mmol/L Chloride (98-107) mmol/L Carbon Dioxide (21-32) mmol/L Anion Gap (3-11) BUN (6-23) mg/dl Creatinine (0.6-1.4) mg/dl Est Cr Clr Drug Dosing ml/min Est GFR ( Amer) ml/min Est GFR (Non-Af Amer) ml/min BUN/Creatinine Ratio (10-20) Glucose (70-99(Fasting)) mg/dl Calcium (8.6-10.3) mg/dl Magnesium (1.7-2.4) mg/dl Total Bilirubin (0.2-1.0) mg/dl Direct Bilirubin (0-0.2) mg/dl AST (13-39) U/L ALT (7-52) U/L Alkaline Phosphatase (34-104) U/L Total Protein (6.0-8.3) gm/dl Albumin (3.4-5.0) gm/dl Globulin (2.5-4.0) gm/dl Albumin/Globulin Ratio (0.9-2) Lipase (11-82) U/L Urine Color Urine Appearance (Clear) Urine pH (4.5-7.5) Ur Specific [place] (1.000-1.030) Urine Protein (Negative) Urine Glucose (UA) (Negative) Urine Ketones (Negative) Urine Blood (Negative) Urine Nitrite (Negative) Urine Bilirubin (Negative) Urine Urobilinogen (Negative) Ur Leukocyte Esterase (Negative) Urine WBC (Auto) (0-5) /hpf Urine RBC (Auto) (0-4) /hpf U Hyaline Cast (Auto) (0-5) /lpf U Epithel Cells (Auto) (0-5) /lpf Urine Bacteria (Auto) (Negative) SARS-CoV-2, RNA, NAAT (NEGATIVE) Blood Type A Positive Antibody Screen NEGATIVE Crossmatch See Detail 11/02/22 Range/Units 05:30 WBC (4.8-10.8) K/ul RBC (4.70-6.10) M/uL Hgb (14.0-18.0) g/dl Hct (42.0-52.0) % MCV (80.0-100.0) fL MCH (25.0-34.0) pg MCHC (32.0-36.0) g/dL RDW Std Deviation (36.4-46.3) fL RDW Coeff of Chaka (11.5-14.5) % Plt Count (130-400) K/uL MPV (9.4-12.4) fL Immature Gran % (Auto) % Neut % (Auto) % Lymph % (Auto) % [place] % (Auto) % Eos % (Auto) % Baso % (Auto) % Neut # (Auto) (1.40-6.50) K/uL Lymph # (Auto) (1.2-3.4) K/uL [place] # (Auto) (0.11-0.59) K/uL Eos # (Auto) (0-0.50) K/uL Baso # (Auto) (0-0.2) K/uL Immature Gran # (Auto) (0.01-0.20) K/uL Polychromasia APTT (21.0-31.0) Seconds PTT Ratio Sodium (136-145) mmol/L Potassium (3.5-5.1) mmol/L Chloride (98-107) mmol/L Carbon Dioxide (21-32) mmol/L Anion Gap (3-11) BUN (6-23) mg/dl Creatinine (0.6-1.4) mg/dl Est Cr Clr Drug Dosing ml/min Est GFR ( Amer) ml/min Est GFR (Non-Af Amer) ml/min BUN/Creatinine Ratio (10-20) Glucose (70-99(Fasting)) mg/dl Calcium (8.6-10.3) mg/dl Magnesium (1.7-2.4) mg/dl Total Bilirubin (0.2-1.0) mg/dl Direct Bilirubin (0-0.2) mg/dl AST (13-39) U/L ALT (7-52) U/L Alkaline Phosphatase (34-104) U/L Total Protein (6.0-8.3) gm/dl Albumin (3.4-5.0) gm/dl Globulin (2.5-4.0) gm/dl Albumin/Globulin Ratio (0.9-2) Lipase (11-82) U/L Urine Color Urine Appearance (Clear) Urine pH (4.5-7.5) Ur Specific [place] (1.000-1.030) Urine Protein (Negative) Urine Glucose (UA) (Negative) Urine Ketones (Negative) Urine Blood (Negative) Urine Nitrite (Negative) Urine Bilirubin (Negative) Urine Urobilinogen (Negative) Ur Leukocyte Esterase (Negative) Urine WBC (Auto) (0-5) /hpf Urine RBC (Auto) (0-4) /hpf U Hyaline Cast (Auto) (0-5) /lpf U Epithel Cells (Auto) (0-5) /lpf Urine Bacteria (Auto) (Negative) SARS-CoV-2, RNA, NAAT NEGATIVE (NEGATIVE) Blood Type Antibody Screen Crossmatch Administered Medications Discontinued Medications Sodium Chloride (Nss) 500 mls @ 999 mls/hr IV .Q31M ONE Stop: 11/02/22 01:39 Last Infusion: 11/02/22 02:33 Dose: 0 mls/hr Documented By: Admin: 11/02/22 01:30 Dose: 999 mls/hr Documented By: STEPHANY Acetaminophen (Ofirmev) 1,000 mg in 100 mls @ 400 mls/hr IV NOW STA Stop: 11/02/22 01:33 Last Infusion: 11/02/22 02:33 Dose: 0 mls/hr Documented By: Admin: 11/02/22 01:32 Dose: 400 mls/hr Documented By: STEPHANY Famotidine (Pepcid 20mg Iv Push) 20 mg in 5 mls @ 2.5 mls/min IV NOW STA Stop: 11/02/22 01:23 Last Admin: 11/02/22 01:32 Dose: 2.5 mls/min Documented By: STEPHANY Labetalol HCl (Labetalol Hcl Iv 5 Mg/Ml 20ml) 10 mg IV NOW STA Stop: 11/02/22 04:50 Last Admin: 11/02/22 05:25 Dose: 10 mg Documented By: DANIELA Co-signed By: CORINA Morphine Sulfate (Morphine Sulfate 4 Mg/Ml 1 Ml Carp\Vial) 4 mg IV NOW STA Stop: 11/02/22 01:20 Last Admin: 11/02/22 01:32 Dose: 4 mg Documented By: STEPHANY Ondansetron HCl (Ondansetron Inj 2 Mg/Ml 2 Ml Vial) 4 mg IV NOW STA Stop: 11/02/22 01:20 Last Admin: 11/02/22 01:32 Dose: 4 mg Documented By: STEPHANY Imaging Data Radiologist's Impression: Abdomen/Pelvis CT 11/02/22 01:19 Exam(s): CT ABDOMEN + PELVIS Without Contrast EXAM: CT Abdomen and Pelvis Without Intravenous Contrast CLINICAL HISTORY: Reason for exam: RUQ abd pain. TECHNIQUE: Axial computed tomography images of the abdomen and pelvis without intravenous contrast. CTDI is 26.21 mGy and DLP is 1203.74 mGy-cm. Automated exposure control was utilized for the study. A dose lowering technique was utilized adhering to the principles of ALARA. COMPARISON: 08/07/2022. FINDINGS: Lung bases: Mild bilateral lower lobe atelectasis, right more than left. Heart: Unremarkable. No significant pericardial effusion. Normal cardiac size with coronary artery calcifications. ABDOMEN: Liver: Unremarkable. Gallbladder and bile ducts: Trace stranding surrounding the gallbladder wall otherwise normal gallbladder and biliary system. No calcified stones. No ductal dilation. Pancreas: Unremarkable. No ductal dilation. Spleen: Unremarkable. No splenomegaly. Adrenals: Unremarkable. No mass. Kidneys and ureters: Mild bilateral perinephric stranding otherwise normal bilateral kidneys. No obstructing stones. No hydronephrosis. Stomach and bowel: Diverticulosis throughout the colon with no signs of diverticulitis. No obstruction. PELVIS: Appendix: Normal appendix. Bladder: Slightly over distended urinary bladder. No stones. Reproductive: Unremarkable as visualized. ABDOMEN and PELVIS: Intraperitoneal space: Unremarkable. No free air. No significant fluid collection. Bones/joints: Scoliosis of the lumbar spine with convexity to the right along with advanced degenerative disease. No acute fracture. No dislocation. Soft tissues: Postoperative changes from ventral hernia repair. Small bilateral fat-containing inguinal hernias. Vasculature: Dilatation of the lower thoracic aorta up to 4.7 cm consistent with aneurysmal dilatation. Dilatation of the proximal abdominal aorta in the region of the renal artery measuring approximately 3.7 x 4.7 cm consistent with aneurysm. Atherosclerotic disease throughout the remainder of the aorta otherwise maintain normal size. Lymph nodes: Unremarkable. No enlarged lymph nodes. IMPRESSION: 1. Mild stranding surrounding the gallbladder, cannot exclude acute cholecystitis. Recommend follow-up with right upper quadrant ultrasound. 2. 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 3. Diverticulosis with no signs of diverticulitis. No acute appendicitis or bowel obstruction. Electronically signed by: Zaria Jacobo MD 11/02/22 04:22 AM Gallbladder Ultrasound 11/02/22 04:34 ABDOMINAL ULTRASOUND, RIGHT UPPER QUADRANT HISTORY: RUQ pain. COMPARISON: Abdomen and pelvis CT 11/02/2022. FINDINGS: Pancreas: Obscured by overlying bowel gas. Liver: A 1.1 cm septated left hepatic lobe cyst. Gallbladder: There is a punctate stone within the gallbladder. The gallbladder is distended and demonstrates a thickened wall measuring up to 5 mm. There is trace pericholecystic fluid. The technologist reported a positive sonographic Ramirez sign. Therefore, these findings are suspicious for acute cholecystitis. Surgical consultation recommended. CBD: 5 mm. Right kidney: Atrophic and echogenic measuring 8.6 cm. No hydronephrosis. Miscellaneous: A 4.1 x 3.4 cm proximal abdominal aortic aneurysm. IMPRESSION: 1. Above findings suspicious for acute cholecystitis. Surgical consultation recommended. 2. A 4.1 x 3.4 cm proximal abdominal aortic aneurysm. ACT 112: Negative or not required by law. Electronically signed by: Angel Mak M.D. 11/02/2022 6:42 AM Chest X-Ray 11/02/22 04:52 XR chest 1V portable HISTORY: renal failure COMPARISON: Chest 10/14/2022. Abdomen and pelvis CT 11/02/2022. FINDINGS: No pneumothorax. No pleural effusions. The cardiac silhouette remains mildly enlarged. There is a tortuous thoracic aorta, unchanged. A few bibasilar linear densities consistent with subsegmental atelectasis. Left-sided calcified pleural plaque again noted. No new focal lung consolidations identified. No evidence for pulmonary edema. IMPRESSION: No significant change compared to the prior study. No acute process. ACT 112: Negative or not required by law. Electronically signed by: Angel Mak M.D. 11/02/2022 6:46 AM Discharge Plan Visit Data Chief Complaint: Abdominal Pain Stated Complaint: abdominal pain ED Provider: Jorge A Camarena Discharge Problem: Abdominal pain, acute, right upper quadrant, History of cholelithiasis, CKD (chronic kidney disease), Chronic anemia Forms Stand Alone Forms: My [email or web address] Prescriptions Prescriptions: No Action atorvastatin 80 mg tablet 80 mg PO QPM clopidogrel 75 mg tablet 75 mg PO QAM fluticasone propionate 50 mcg/actuation [place],Suspension 2 spray INTRANASAL DAILY cholecalciferol (vitamin D3) [D3-2000] 50 mcg (2,000 unit) capsule 2,000 unit PO QAM allopurinol 300 mg tablet 150 mg PO QAM albuterol sulfate 90 mcg/actuation HFA aerosol inhaler 2 puff INHALATION Q4 PRN (Reason: Wheezing) metoprolol tartrate 25 mg tablet 12.5 mg PO BID Patient Comments: TAKES 12.5 MG BID ezetimibe 10 mg Tablet 10 mg PO QAM (DME) Oxygen Home Liters Per Minute See Rx Instructions .Route Qty: 1 0RF Rx Instructions: 3 LPM with ambulation docusate sodium 100 mg Capsule 100 mg PO BID PRN (Reason: Constipation) apixaban 5 mg Tablet 5 mg PO BID Anoro Ellipta 62.5-25 mcg/actuation blister with device 1 inh inhalation DAILY amlodipine 2.5 mg Tablet 2.5 mg PO QAM Vitron-C 65 mg iron- 125 mg Tablet,Delayed Release (Dr/Ec) 1 tab PO QAM pantoprazole 40 mg tablet,delayed release (DR/EC) 40 mg PO QAM ipratropium-albuterol 0.5 mg-3 mg(2.5 mg base)/3 mL solution for nebulization 3 ml inhalation Q6H PRN (Reason: Shortness Of Breath) Referrals Referrals: Jairo Kingston MD [Primary Care Provider] -
[2022-11-02] MEDS ORDERED: MoRPHine SULFATE 4 MG/ML 1 ML CARP\\VIAL IV STA (01:19)
[2022-11-02] MEDS ORDERED: ACETAMINOPHEN 1,000 MG/100 ML VIAL IV STA (01:19)
[2022-11-02] MEDS ORDERED: ONDANSETRON INJ 2 MG/ML 2 ML VIAL IV STA (01:19)
[2022-11-02] MEDS ORDERED: FAMOTIDINE 20MG IV PUSH 20 MG/5 ML SYR IV STA (01:22)
[2022-11-02 01:50] LABS: Appearance Urine Clear (Clear); Bacteria Urine Automated Negative (Negative); Bilirubin Urine Negative (Negative); Blood Urine Negative (Negative); Cast Urine Automated 0 /lpf (0-5); Color Urine Yellow; Epithelial Cell Urine Auto 0-5 /lpf (0-5); Glucose Urine UA Negative (Negative); Ketones Urine Negative (Negative); Leukocyte Esterase Urine Negative (Negative); Nitrite Urine Negative (Negative); Protein Urine 2+ (Negative); RBC Urine Automated 0-4 /hpf (0-4); Specific Gravity Urine 1.012 (1.000-1.030); Urobilinogen Urine Negative (Negative)
[2022-11-02 01:51] LABS: Basophils # (auto) 0.08 K/uL (0-0.2); Basophils % (auto) 0.7 %; Eosinophils # (auto) 0.31 K/uL (0-0.50); Eosinophils % (auto) 2.8 %; Hematocrit (blood only) 26.5 % (42.0-52.0); Hemoglobin 7.8 g/dl (14.0-18.0); Immature Granulocytes # (auto) 0.04 K/uL (0.01-0.20); Immature Granulocytes % (auto) 0.4 %; Lymphocytes # (auto) 0.68 K/uL (1.2-3.4); Lymphocytes % (auto) 6.1 %; Mean Corpuscular Hemoglobin 30.2 pg (25.0-34.0); Mean Corpuscular Hgb Conc 29.4 g/dL (32.0-36.0); Mean Corpuscular Volume 102.7 fL (80.0-100.0); Mean Platelet Volume 10.9 fL (9.4-12.4); Monocytes # (auto) 0.43 K/uL (0.11-0.59); Monocytes % (auto) 3.9 %; Neutrophils # (auto) 9.62 K/uL (1.40-6.50); Neutrophils % (auto) 86.1 %; Platelet Count 156 K/uL (130-400); RDW Coefficient of Variation 19.9 % (11.5-14.5); RDW Standard Deviation 74.3 fL (36.4-46.3); Red Blood Count 2.58 M/uL (4.70-6.10); White Blood Count 11.16 K/ul (4.8-10.8)
[2022-11-02 02:07] LABS: Albumin Globulin Ratio 1.3 (0.9-2); Albumin Level 4.1 gm/dl (3.4-5.0); BUN Creatinine Ratio 12.1 (10-20); Bilirubin Direct 0.3 mg/dl (0-0.2); Bilirubin,Total 0.8 mg/dl (0.2-1.0); Calcium 9.2 mg/dl (8.6-10.3); Creatinine Clr Calc Pharmacy 30.4 ml/min; Est GFR (African American) 32.3 ml/min; Est GFR (Non-African American) 27.8 ml/min; Globulin 3.2 gm/dl (2.5-4.0); Polychromasia 2+; Potassium 3.6 mmol/L (3.5-5.1); Total Protein 7.3 gm/dl (6.0-8.3)
--- NOTE | 2022-11-02 04:23 | CT Scan Report ---
Exam(s): CT ABDOMEN + PELVIS Without Contrast EXAM: CT Abdomen and Pelvis Without Intravenous Contrast CLINICAL HISTORY: Reason for exam: RUQ abd pain. TECHNIQUE: Axial computed tomography images of the abdomen and pelvis without intravenous contrast. CTDI is 26.21 mGy and DLP is 1203.74 mGy-cm. Automated exposure control was utilized for the study. A dose lowering technique was utilized adhering to the principles of ALARA. COMPARISON: 08/07/2022. FINDINGS: Lung bases: Mild bilateral lower lobe atelectasis, right more than left. Heart: Unremarkable. No significant pericardial effusion. Normal cardiac size with coronary artery calcifications. ABDOMEN: Liver: Unremarkable. Gallbladder and bile ducts: Trace stranding surrounding the gallbladder wall otherwise normal gallbladder and biliary system. No calcified stones. No ductal dilation. Pancreas: Unremarkable. No ductal dilation. Spleen: Unremarkable. No splenomegaly. Adrenals: Unremarkable. No mass. Kidneys and ureters: Mild bilateral perinephric stranding otherwise normal bilateral kidneys. No obstructing stones. No hydronephrosis. Stomach and bowel: Diverticulosis throughout the colon with no signs of diverticulitis. No obstruction. PELVIS: Appendix: Normal appendix. Bladder: Slightly over distended urinary bladder. No stones. Reproductive: Unremarkable as visualized. ABDOMEN and PELVIS: Intraperitoneal space: Unremarkable. No free air. No significant fluid collection. Bones/joints: Scoliosis of the lumbar spine with convexity to the right along with advanced degenerative disease. No acute fracture. No dislocation. Soft tissues: Postoperative changes from ventral hernia repair. Small bilateral fat-containing inguinal hernias. Vasculature: Dilatation of the lower thoracic aorta up to 4.7 cm consistent with aneurysmal dilatation. Dilatation of the proximal abdominal aorta in the region of the renal artery measuring approximately 3.7 x 4.7 cm consistent with aneurysm. Atherosclerotic disease throughout the remainder of the aorta otherwise maintain normal size. Lymph nodes: Unremarkable. No enlarged lymph nodes. IMPRESSION: 1. Mild stranding surrounding the gallbladder, cannot exclude acute cholecystitis. Recommend follow-up with right upper quadrant ultrasound. 2. 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 3. Diverticulosis with no signs of diverticulitis. No acute appendicitis or bowel obstruction. Electronically signed by: Zaria Jacobo MD 11/02/22 04:22 AM
[2022-11-02] MEDS ORDERED: LABETALOL HCL IV 5 MG/ML 20ML IV STA (04:49)
[2022-11-02 05:11] LABS: Partial Thromboplastin Ratio 0.9; Partial Thromboplastin Time 26.4 Seconds (21.0-31.0)
[2022-11-02 05:24] LABS: Hematocrit (blood only) 25.9 % (42.0-52.0); Hemoglobin 7.8 g/dl (14.0-18.0)
[2022-11-02] MEDS ORDERED: ALBUT/IPRATROP 3MG/0.5MG NEB 3 ML VIAL NEB STA (05:47)
[2022-11-02] MEDS ORDERED: SODIUM CHLORIDE 0.9% 250 ML IV PRN ×2 (05:48→21:46)
--- NOTE | 2022-11-02 05:49 | History & Physical Report ---
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 hx chronic respiratory failure secondary to COPD on home O2, patient with baseline wheezing on exam. GINNY/nocturnal hypoxemia on CPAP history PSVT valvular heart disease (severe , mild AR), [facility] surgery contemplated as per recent outpatient cardiology note history TAA (4-5 cm, unchanged as per report outpatient CT chest imaging last June 2022) AAA status post surgery hyperlipidemia on statin Rx hx Waldenstrom macroglobulinemia Hyperglycemia rule out DM past tobacco abuse PCU IV labetalol 1 dose now Analgesia, titrate home BP meds N.p.o. Zosyn General surgery consult Re: Acute cholecystitis IV PPI Appropriate to hold Eliquis and Plavix for now. Patient unfortunately at risk for stroke with history of shaggy aorta syndrome. GI consult re: UGIB (Outpatient endoscopy recommended following outpatient G GI consultation last week.) Transfuse PRBC to maintain hemoglobin of at least 8 with history of vascular disease Check hemoglobin A1c DVT prophylaxis. SCDs Re: GI bleed Full code Patient daughter requesting updates providers. Ms. Salina Estevez, contact #[phone]. Total critical care time was 40 minutes. Text document was generated using [employer] voice recognition software. It may contain grammatical or spelling errors. Kindly contact undersigned for clarification of any documentation item in question. History of Present Illness Chief Complaint: Abdominal pain Primary Care Provider: Jairo Kingston MD History obtained from patient, family, and records. 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 Last confinement 3 weeks ago for COPD exacerbation. Last night, patient experience epigastric pain followed by nausea, emesis after dinner. No fever, no chills, no headache, no chest pain, no SOB. Usual dark stools attributed to iron intake. SBP 200s upon arrival at the ER. 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 Allergies Allergy/AdvReac Type Severity Reaction Status Date / Time RUBENS Inhibitors AdvReac Intermediate DROPS Verified 11/02/22 01:45 BLOOD PRESSURE lisinopril AdvReac Intermediate DROPS Verified 11/02/22 01:45 BLOOD PRESSURE Home Medications Medication Instructions Recorded Confirmed Type atorvastatin 80 mg tablet 80 mg PO QPM 03/25/19 11/02/22 History clopidogrel 75 mg tablet 75 mg PO QAM 03/25/19 11/02/22 History fluticasone propionate 50 2 spray intranasal DAILY 03/25/19 11/02/22 History mcg/actuation nasal spray,suspension cholecalciferol (vitamin D3) 50 2,000 unit PO QAM 06/10/20 11/02/22 History mcg (2,000 unit) capsule (D3-2000) amlodipine 2.5 mg tablet 2.5 mg PO QAM 12/30/20 11/02/22 History iron,carbonyl 65 mg-vitamin C 125 1 tab PO QAM 12/30/20 11/02/22 History mg tablet,delayed release (Vitron-C) albuterol sulfate 90 mcg/actuation 2 puff inhalation Q4 PRN Wheezing 10/31/21 11/02/22 History aerosol inhaler allopurinol 300 mg tablet 150 mg PO QAM 10/31/21 11/02/22 History metoprolol tartrate 25 mg tablet 12.5 mg PO BID 10/31/21 11/02/22 History pantoprazole 40 mg tablet,delayed 40 mg PO QAM 02/25/22 11/02/22 History release ezetimibe 10 mg tablet 10 mg PO QAM 08/04/22 11/02/22 History Oxygen Home #1 ea 08/09/22 10/14/22 Rx apixaban 5 mg tablet 5 mg PO BID 10/11/22 11/02/22 History docusate sodium 100 mg capsule 100 mg PO BID PRN Constipation 10/11/22 11/02/22 History ipratropium 0.5 mg-albuterol 3 mg 3 ml inhalation Q6H PRN Shortness 10/14/22 11/02/22 History (2.5 mg base)/3 mL nebulization Of Breath soln umeclidinium 62.5 mcg-vilanterol 1 inh inhalation DAILY 11/02/22 11/02/22 History 25 mcg/actuation powdr for inhalation (Anoro Ellipta) Past Med/Surg History Medical History Aneurysm CT chest w/o contrast 06/25/22 - 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 Ascending thoracic aorta at the level of the right pulmonary artery 4.2 cm unchanged. 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 Descending thoracic aorta at the level of the left atrium again up to 4.7 cm. Aortic stenosis Thoracic aortic atherosclerosis, densely calcified coronary arteries, severely calcified aortic valve, aneurysmal outpouching of the aortic arch. CKD (chronic kidney disease), stage III follows with S nephrology Gastric ulcer Hearing deficit BL NAILS History of GI bleed Hx of gout Hx SBO Hyperlipidemia Hypertension ANDREW (iron deficiency anemia) Obesity Paroxysmal ventricular tachycardia 19 beat run of ventricular tachycardia via Zio monitoring PFO (patent foramen ovale) per records. follows with Dr. 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 TO HAVE SLIGHT BALANCE ISSUES Surgical History History of esophagogastroduodenoscopy (EGD) History of lumbar surgery 1999 History of tonsillectomy History of tonsillectomy and adenoidectomy History of tooth extraction Hx of colonoscopy Hx of hernia repair lysis of adhesions, incisional hernia repair laparoscopically 01/28/2010 at [facility] - Dr Desouza S/P AAA repair 01/13/2009 - Dr Suazo ([facility] YEARLY AT [facility]) Family History Other AAA (abdominal aortic aneurysm) Hypertension No family history of adverse response to anesthesia Social History Smoking Status: Former smoker Tobacco Type: Cigarettes Age Started Using Tobacco: 18; Cigarettes Per Day: Former cigarette. Quit 1998; Smoking End Date: 1998; Second Hand Exposure: No; Do You Dip or Chew Tobacco: No; Tobacco Cessation Education Requested by Patient: No Hx Alcohol Use: Yes Alcohol type: beer Alcohol type Comment: 3 beers a day Hx Substance Use: No Preferred Language: [place]ambican Communication Ability: Effective Ship Cleaner Required: No Beliefs That Will Affect Care: None marital status: Current Living Situation: Spouse current occupational status: employed Other Information That Helps Us Care for You: No Feels Safe at Home: Yes Safety Concerns: Feels Safe At This Time Assistive Devices: CPAP, Glasses, Hearing Aid - Bilateral and Oxygen - Continuous Review of Systems Review of Systems: As per HPI, all other systems reviewed and negative Physical Exam Physical Exam: GENERAL: obese, slightly hard of hearing, no respiratory distress SKIN: Pallor, warm HEENT: Sparse hair, pale palpebral conjunctivae, no ptosis, dry buccal mucosa, nasal cannula in place NECK : Supple, short neck, no tenderness CHEST : Decreased breath sounds, diffuse expiratory wheezes, no tenderness HEART : RRR, systolic murmur ABDOMEN: Some distention, nontender RECTAL : Intact sphincter, melanotic stool (FOBT positive) EXTREMITIES : Minimal LE swelling, no LE tenderness, no other conspicuous deformities noted NEUROLOGIC : Coherent, no facial asymmetry, slightly hard of hearing, no other gross focality Results & Data Results & Data Vital Signs (Past 12 Hours) Vital Signs Temp Pulse Resp BP Pulse Ox O2 Del Method O2 Flow Rate 11/02/22 04:00 72 14 196/100 H 98 Nasal Cannula 2 11/02/22 03:30 78 23 189/87 H 99 Nasal Cannula 2 11/02/22 03:29 84 15 176/69 H 99 Nasal Cannula 2 11/02/22 03:00 211/98 H 99 Nasal Cannula 2 11/02/22 02:30 184/87 H 98 Room Air 11/02/22 02:21 196/108 H 93 Room Air 11/02/22 01:30 68 22 208/93 H 99 Room Air 11/02/22 01:18 68 11/02/22 01:08 36.9 C 71 18 201/80 H 96 Nasal Cannula 2 Laboratory Results Laboratory Results WBC 11.16 K/ul (4.8-10.8) H 11/02/22 01:00 RBC 2.58 M/uL (4.70-6.10) L 11/02/22 01:00 Hgb 7.8 g/dl (14.0-18.0) L 11/02/22 05:04 Hct 25.9 % (42.0-52.0) L 11/02/22 05:04 MCV 102.7 fL (80.0-100.0) H 11/02/22 01:00 MCH 30.2 pg (25.0-34.0) 11/02/22 01:00 MCHC 29.4 g/dL (32.0-36.0) L 11/02/22 01:00 RDW Std Deviation 74.3 fL (36.4-46.3) H 11/02/22 01:00 RDW Coeff of Chaka 19.9 % (11.5-14.5) H 11/02/22 01:00 Plt Count 156 K/uL (130-400) 11/02/22 01:00 MPV 10.9 fL (9.4-12.4) 11/02/22 01:00 Immature Gran % (Auto) 0.4 % 11/02/22 01:00 Neut % (Auto) 86.1 % 11/02/22 01:00 Lymph % (Auto) 6.1 % 11/02/22 01:00 Esmeralda % (Auto) 3.9 % 11/02/22 01:00 Eos % (Auto) 2.8 % 11/02/22 01:00 Baso % (Auto) 0.7 % 11/02/22 01:00 Neut # (Auto) 9.62 K/uL (1.40-6.50) H 11/02/22 01:00 Lymph # (Auto) 0.68 K/uL (1.2-3.4) L 11/02/22 01:00 Esmeralda # (Auto) 0.43 K/uL (0.11-0.59) 11/02/22 01:00 Eos # (Auto) 0.31 K/uL (0-0.50) 11/02/22 01:00 Baso # (Auto) 0.08 K/uL (0-0.2) 11/02/22 01:00 Immature Gran # (Auto) 0.04 K/uL (0.01-0.20) 11/02/22 01:00 Polychromasia 2+ 11/02/22 01:00 APTT 26.4 Seconds (21.0-31.0) 11/02/22 01:00 PTT Ratio 0.9 11/02/22 01:00 Sodium 139 mmol/L (136-145) 11/02/22 01:00 Potassium 3.6 mmol/L (3.5-5.1) 11/02/22 01:00 Chloride 105 mmol/L (98-107) 11/02/22 01:00 Carbon Dioxide 23 mmol/L (21-32) 11/02/22 01:00 Anion Gap 11 (3-11) 11/02/22 01:00 BUN 27 mg/dl (6-23) H 11/02/22 01:00 Creatinine 2.24 mg/dl (0.6-1.4) H 11/02/22 01:00 Est Cr Clr Drug Dosing 30.4 ml/min 11/02/22 01:00 Est GFR ( Amer) 32.3 ml/min 11/02/22 01:00 Est GFR (Non-Af Amer) 27.8 ml/min 11/02/22 01:00 BUN/Creatinine Ratio 12.1 (10-20) 11/02/22 01:00 Glucose 161 mg/dl (70-99(Fasting)) H 11/02/22 01:00 Calcium 9.2 mg/dl (8.6-10.3) 11/02/22 01:00 Magnesium 2.0 mg/dl (1.7-2.4) 11/02/22 01:00 Total Bilirubin 0.8 mg/dl (0.2-1.0) 11/02/22 01:00 Direct Bilirubin 0.3 mg/dl (0-0.2) H 11/02/22 01:00 AST 99 U/L (13-39) H 11/02/22 01:00 ALT 42 U/L (7-52) 11/02/22 01:00 Alkaline Phosphatase 128 U/L (34-104) H 11/02/22 01:00 Total Protein 7.3 gm/dl (6.0-8.3) 11/02/22 01:00 Albumin 4.1 gm/dl (3.4-5.0) 11/02/22 01:00 Globulin 3.2 gm/dl (2.5-4.0) 11/02/22 01:00 Albumin/Globulin Ratio 1.3 (0.9-2) 11/02/22 01:00 Lipase 55 U/L (11-82) 11/02/22 01:00 Urine Color Yellow 11/02/22 01:00 Urine Appearance Clear (Clear) 11/02/22 01:00 Urine pH 6.0 (4.5-7.5) 11/02/22 01:00 Ur Specific [place] 1.012 (1.000-1.030) 11/02/22 01:00 Urine Protein 2+ (Negative) H 11/02/22 01:00 Urine Glucose (UA) Negative (Negative) 11/02/22 01:00 Urine Ketones Negative (Negative) 11/02/22 01:00 Urine Blood Negative (Negative) 11/02/22 01:00 Urine Nitrite Negative (Negative) 11/02/22 01:00 Urine Bilirubin Negative (Negative) 11/02/22 01:00 Urine Urobilinogen Negative (Negative) 11/02/22 01:00 Ur Leukocyte Esterase Negative (Negative) 11/02/22 01:00 Urine WBC (Auto) 1-5 /hpf (0-5) 11/02/22 01:00 Urine RBC (Auto) 0-4 /hpf (0-4) 11/02/22 01:00 U Hyaline Cast (Auto) 0 /lpf (0-5) 11/02/22 01:00 U Epithel Cells (Auto) 0-5 /lpf (0-5) 11/02/22 01:00 Urine Bacteria (Auto) Negative (Negative) 11/02/22 01:00 Impressions Abdomen/Pelvis CT 11/02/22 01:19 Exam(s): CT ABDOMEN + PELVIS Without Contrast EXAM: CT Abdomen and Pelvis Without Intravenous Contrast CLINICAL HISTORY: Reason for exam: RUQ abd pain. TECHNIQUE: Axial computed tomography images of the abdomen and pelvis without intravenous contrast. CTDI is 26.21 mGy and DLP is 1203.74 mGy-cm. Automated exposure control was utilized for the study. A dose lowering technique was utilized adhering to the principles of ALARA. COMPARISON: 08/07/2022. FINDINGS: Lung bases: Mild bilateral lower lobe atelectasis, right more than left. Heart: Unremarkable. No significant pericardial effusion. Normal cardiac size with coronary artery calcifications. ABDOMEN: Liver: Unremarkable. Gallbladder and bile ducts: Trace stranding surrounding the gallbladder wall otherwise normal gallbladder and biliary system. No calcified stones. No ductal dilation. Pancreas: Unremarkable. No ductal dilation. Spleen: Unremarkable. No splenomegaly. Adrenals: Unremarkable. No mass. Kidneys and ureters: Mild bilateral perinephric stranding otherwise normal bilateral kidneys. No obstructing stones. No hydronephrosis. Stomach and bowel: Diverticulosis throughout the colon with no signs of diverticulitis. No obstruction. PELVIS: Appendix: Normal appendix. Bladder: Slightly over distended urinary bladder. No stones. Reproductive: Unremarkable as visualized. ABDOMEN and PELVIS: Intraperitoneal space: Unremarkable. No free air. No significant fluid collection. Bones/joints: Scoliosis of the lumbar spine with convexity to the right along with advanced degenerative disease. No acute fracture. No dislocation. Soft tissues: Postoperative changes from ventral hernia repair. Small bilateral fat-containing inguinal hernias. Vasculature: Dilatation of the lower thoracic aorta up to 4.7 cm consistent with aneurysmal dilatation. Dilatation of the proximal abdominal aorta in the region of the renal artery measuring approximately 3.7 x 4.7 cm consistent with aneurysm. Atherosclerotic disease throughout the remainder of the aorta otherwise maintain normal size. Lymph nodes: Unremarkable. No enlarged lymph nodes. IMPRESSION: 1. Mild stranding surrounding the gallbladder, cannot exclude acute cholecystitis. Recommend follow-up with right upper quadrant ultrasound. 2. 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 3. Diverticulosis with no signs of diverticulitis. No acute appendicitis or bowel obstruction. Electronically signed by: Zaria Jacobo MD 11/02/22 04:22 AM Gallbladder ultrasound: 1. Above findings suspicious for acute cholecystitis. Surgical consultation recommended. 2. A 4.1 x 3.4 cm proximal abdominal aortic aneurysm. Diagnostic Findings Chest x-ray as per my interpretation cardiomegaly EKG as per my interpretation : Rate 70, NSR, normal axis, 1 AVB, no ischemia
[2022-11-02] MEDS ORDERED: PANTOprazole 80 MG in DEXTROSE 5% 100 ML IV STA (05:52)
[2022-11-02] MEDS ORDERED: NSS + 20MEQ KCL 20 MEQ/1,000 ML BAG IV ONE (05:53)
[2022-11-02] MEDS ORDERED: PROMETHAZINE HCL 6.25 MG in SODIUM CHLORIDE 0.9% 50 ML IV PRN (05:53)
[2022-11-02] MEDS ORDERED: ACETAMINOPHEN 325 MG TAB PO PRN ×2 (05:54→11:06)
--- NOTE | 2022-11-02 06:44 | Ultrasound Report ---
ABDOMINAL ULTRASOUND, RIGHT UPPER QUADRANT HISTORY: RUQ pain. COMPARISON: Abdomen and pelvis CT 11/02/2022. FINDINGS: Pancreas: Obscured by overlying bowel gas. Liver: A 1.1 cm septated left hepatic lobe cyst. Gallbladder: There is a punctate stone within the gallbladder. The gallbladder is distended and demon strates a thickened wall measuring up to 5 mm. There is trace pericholecystic fluid. The technologist reported a positive sonographic Ramirez sign. Therefore, these findings are suspicious for acute chol ecystitis. Surgical consultation recommended. CBD: 5 mm. Right kidney: Atrophic and echogenic measuring 8.6 cm. No hydronephrosis. Miscellaneous: A 4.1 x 3.4 cm proximal abdominal aortic aneurysm. IMPRESSION: 1. Above findings suspicious for acute cholecystitis. Surgical consultation recommended. 2. A 4.1 x 3.4 cm proximal abdominal aortic aneurysm. ACT 112: Negative or not required by law. Electronically signed by: Angel Mak M.D. 11/02/2022 6:42 AM
--- NOTE | 2022-11-02 06:47 | XRay Report ---
XR chest 1V portable HISTORY: renal failure COMPARISON: Chest 10/14/2022. Abdomen and pelvis CT 11/02/2022. FINDINGS: No pneumothorax. No pleural effusions. The cardiac silhouette remains mildly enlarged. Ther e is a tortuous thoracic aorta, unchanged. A few bibasilar linear densities consistent with subsegmen beverly atelectasis. Left-sided calcified pleural plaque again noted. No new focal lung consolidations id entified. No evidence for pulmonary edema. IMPRESSION: No significant change compared to the prior study. No acute process. ACT 112: Negative or not required by law. Electronically signed by: Angel Mak M.D. 11/02/2022 6:46 AM
[2022-11-02] MEDS ORDERED: PIPERACILLIN/TAZOBACTAM 4.5 GM/120 ML BAG IV STA (06:52)
[2022-11-02] MEDS ORDERED: DOCUSATE SODIUM 100 MG CAP PO PRN (06:53)
[2022-11-02 07:08] LABS: Estimated Average Glucose 74 mg/dl; Hemoglobin A1C 4.2 % (4.5-5.6)
--- NOTE | 2022-11-02 07:58 | Surgery Consultation ---
Date of Consultation November 02, 2022 Assessment & Plan (1) Abdominal pain, acute, right upper quadrant: This is a 72yM with a PMH of CKD, COPD on O2 at home, , h/o CVA (last 3-4 years ago), h/o AAA repair, HTN, HLD, GI bleed who presents to the [facility] ED on 11/02/22 with complaints of RUQ abdominal pain, nausea/vomiting that started yesterday evening. He presented to the ER due to symptoms and underwent a CT a/p that revealed mild stranding surrounding the gallbladder, cannot exclude acute cholecystitis. Thereafter a RUQ US showed findings suspicious for acute cholecystitis. Labs reveal WBC 11, Hbg low at 7.8, Cr 2.2, K 3.6, LFTs show Tb 0.8, AST 99, ALT 42, Alkp 128, lipase 55. Vital signs are stable and patient afebrile. On exam patient is in no distress. Abdomen soft with discomfort elicited in R mid and RUQ's. Of note patient also found to be heme +, pt does report some dark stools over last 5 days. Does have history of gastric ulcer, last EGD in 03/09 was normal. We will obtain a HIDA scan today to further evaluate for concern of cholecystitis.Patient with multiple medical issues as outlined above, in addition he has been on eliquis and plavix. If HIDA + will have to discuss options of IV abx +/- perc don, vs surgical intervention, vs possible transfer to tertiary center if deemed too high risk here. In the meantime keep NPO, with IVF, and on IV abx. Would hold blood thinners. Will follow up after HIDA. May benefit from GI consult for heme + stools and anemia and possibly cardiology for surgical risk evaluation. Supervising Physician Co-Signing Physician Notes I personally saw and evaluated the patient with Belinda Parsons PA-C and agree with the assessment and plan. 72-year-old male with acute cholecystitis versus symptomatic cholelithiasis with multiple medical comorbidities His CT and ultrasound images and results were personally viewed and interpreted by myself, he does have stranding around the gallbladder with right upper quadrant pain that could be consistent with cholecystitis HIDA scan is relatively inconclusive I think she treat the patient as if he has acute cholecystitis with antibiotics and he can have clear liquids but make n.p.o. after midnight for possible procedure He is not a surgical candidate based on his multiple medical comorbidities and abdominal surgeries If his pain improves and his labs all normalized, can advance his diet and see how he tolerates this If he is unable to tolerate food and his pain remains, would consult IR for percutaneous cholecystostomy tube GI is also following and he would be a reasonable candidate to place an Axios stent at a later date We will continue to follow History of Present Illness History of Present Illness This is a 72yM with a PMH of CKD, COPD on O2 at home, , h/o CVA (last 3-4 years ago), h/o AAA repair, HTN, HLD, GI bleed who presents to the [facility] ED on 11/02/22 with complaints of abdominal pain, nausea/vomiting. Patient reports pain started yesterday evening around 8pm after eating dinner which consisted of fish and a tasty cake. This was associated with nausea/vomiting. He states his pain is mostly located in the RUQ and rated it an 8-9/10 in severity at it's worst. In the ER he underwent a CT a/p revealed mild stranding surrounding the gallbladder, cannot exclude acute cholecystitis. Thereafter a RUQ US showed findings suspicious for acute cholecystitis. Patient denies any blood in the emesis. He does note some dark stools in the last 5 days or so, but no bright red blood. He reports baseline SOB and wheezing. He denies any chest pains, new diarrhea/constipation. He never had pain like this before. No issues with eating fatty/greasy/spicy foods in the past. Last colonoscopy was 2 years ago and he he says he had a polyp removed. Last EGD was in 03/09 noted to be normal within normal limits. Does have history of an ulcer. Noted to have a prior laparoscopic ventral hernia repair with mesh with Dr. Desouza back in 2009. Last took his eliquis and plavix yesterday. Allergies Allergy/AdvReac Type Severity Reaction Status Date / Time RUBENS Inhibitors AdvReac Intermediate DROPS Verified 11/02/22 01:45 BLOOD PRESSURE lisinopril AdvReac Intermediate DROPS Verified 11/02/22 01:45 BLOOD PRESSURE Home Medications Medication Instructions Recorded Confirmed Type atorvastatin 80 mg tablet 80 mg PO QPM 03/25/19 11/02/22 History clopidogrel 75 mg tablet 75 mg PO QAM 03/25/19 11/02/22 History fluticasone propionate 50 2 spray intranasal DAILY 03/25/19 11/02/22 History mcg/actuation nasal spray,suspension cholecalciferol (vitamin D3) 50 2,000 unit PO QAM 06/10/20 11/02/22 History mcg (2,000 unit) capsule (D3-2000) amlodipine 2.5 mg tablet 2.5 mg PO QAM 12/30/20 11/02/22 History iron,carbonyl 65 mg-vitamin C 125 1 tab PO QAM 12/30/20 11/02/22 History mg tablet,delayed release (Vitron-C) albuterol sulfate 90 mcg/actuation 2 puff inhalation Q4 PRN Wheezing 10/31/21 11/02/22 History aerosol inhaler allopurinol 300 mg tablet 150 mg PO QAM 10/31/21 11/02/22 History metoprolol tartrate 25 mg tablet 12.5 mg PO BID 10/31/21 11/02/22 History pantoprazole 40 mg tablet,delayed 40 mg PO QAM 02/25/22 11/02/22 History release ezetimibe 10 mg tablet 10 mg PO QAM 08/04/22 11/02/22 History Oxygen Home #1 ea 08/09/22 10/14/22 Rx apixaban 5 mg tablet 5 mg PO BID 10/11/22 11/02/22 History docusate sodium 100 mg capsule 100 mg PO BID PRN Constipation 10/11/22 11/02/22 History ipratropium 0.5 mg-albuterol 3 mg 3 ml inhalation Q6H PRN Shortness 10/14/22 11/02/22 History (2.5 mg base)/3 mL nebulization Of Breath soln umeclidinium 62.5 mcg-vilanterol 1 inh inhalation DAILY 11/02/22 11/02/22 History 25 mcg/actuation powdr for inhalation (Anoro Ellipta) Patient History Medical History Aneurysm CT chest w/o contrast 06/25/22 - 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 Ascending thoracic aorta at the level of the right pulmonary artery 4.2 cm unchanged. 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 Descending thoracic aorta at the level of the left atrium again up to 4.7 cm. Aortic stenosis Thoracic aortic atherosclerosis, densely calcified coronary arteries, severely calcified aortic valve, aneurysmal outpouching of the aortic arch. CKD (chronic kidney disease), stage III follows with S nephrology Gastric ulcer Hearing deficit BL NAILS History of GI bleed Hx of gout Hx SBO Hyperlipidemia Hypertension ANDREW (iron deficiency anemia) Obesity Paroxysmal ventricular tachycardia 19 beat run of ventricular tachycardia via Zio monitoring PFO (patent foramen ovale) per records. follows with Dr. 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 TO HAVE SLIGHT BALANCE ISSUES Surgical History History of esophagogastroduodenoscopy (EGD) History of lumbar surgery 1999 History of tonsillectomy History of tonsillectomy and adenoidectomy History of tooth extraction Hx of colonoscopy Hx of hernia repair lysis of adhesions, incisional hernia repair laparoscopically 01/28/2010 at [facility] - Dr Desouza S/P AAA repair 01/13/2009 - Dr Suazo ([facility]) Family History Other AAA (abdominal aortic aneurysm) Hypertension No family history of adverse response to anesthesia Social History Smoking Status: Former smoker Tobacco Type: Cigarettes Age Started Using Tobacco: 18; Cigarettes Per Day: Former cigarette. Quit 1998; Smoking End Date: 1998; Second Hand Exposure: No; Do You Dip or Chew Tobacco: No; Tobacco Cessation Education Requested by Patient: No Hx Alcohol Use: Yes Alcohol type: beer Alcohol type Comment: 3 beers a day Hx Substance Use: No Preferred Language: Monegasque Communication Ability: Effective Adult Education Manager Required: No Beliefs That Will Affect Care: None marital status: Current Living Situation: Spouse current occupational status: employed Other Information That Helps Us Care for You: No Feels Safe at Home: Yes Safety Concerns: Feels Safe At This Time Assistive Devices: CPAP, Glasses, Hearing Aid - Bilateral and Oxygen - Cont inuous Review of Systems Constitutional: no fever and no chills Respiratory: + dyspnea (baseline) Cardiovascular: no chest pain Gastrointestinal: + abdominal pain (RUQ), + nausea, + vomiting and + problem reported (dark stools noted); no bloating and no diarrhea/loose stools Physical Exam Physical Exam: awake/alert, no distress Respiratory: undergoing breathing treatment audible wheezing Gastrointestinal (Abdomen): Inspection/Auscultation: + abdomen distended (mild) and + abdominal surgical scar (midline ) Percussion/Palpation: + abdomen tender (ttp in R side of abdomen, worse in RUQ) and abdomen soft Results & Data Vital Signs (Past 12 Hours) Vital Signs Temp Pulse Pulse Resp BP BP Pulse Ox 11/02/22 07:04 36.3 C L 68 16 178/96 H 98 11/02/22 07:00 63 18 178/96 H 100 11/02/22 06:56 65 165/86 H 11/02/22 06:45 36.6 C 66 18 165/86 H 100 11/02/22 05:09 66 11/02/22 04:00 72 14 196/100 H 98 11/02/22 03:30 78 23 189/87 H 99 11/02/22 03:29 84 15 176/69 H 99 11/02/22 03:00 211/98 H 99 11/02/22 02:30 184/87 H 98 11/02/22 02:21 196/108 H 93 11/02/22 01:30 68 22 208/93 H 99 11/02/22 01:18 68 11/02/22 01:08 36.9 C 71 18 201/80 H 96 O2 Del Method O2 Flow Rate 11/02/22 07:04 3 11/02/22 07:00 Nasal Cannula 3 11/02/22 06:56 11/02/22 06:45 3 11/02/22 05:09 11/02/22 04:00 Nasal Cannula 2 11/02/22 03:30 Nasal Cannula 2 11/02/22 03:29 Nasal Cannula 2 11/02/22 03:00 Nasal Cannula 2 11/02/22 02:30 Room Air 07/18/23 02:21 Room Air 11/02/22 01:30 Room Air 11/02/22 01:18 11/02/22 01:08 Nasal Cannula 2 Diagnostic Findings Exam(s): CT ABDOMEN + PELVIS Without Contrast EXAM: CT Abdomen and Pelvis Without Intravenous Contrast CLINICAL HISTORY: Reason for exam: RUQ abd pain. TECHNIQUE: Axial computed tomography images of the abdomen and pelvis without intravenous contrast. CTDI is 26.21 mGy and DLP is 1203.74 mGy-cm. Automated exposure control was utilized for the study. A dose lowering technique was utilized adhering to the principles of ALARA. COMPARISON: 08/07/2022. FINDINGS: Lung bases: Mild bilateral lower lobe atelectasis, right more than left. Heart: Unremarkable. No significant pericardial effusion. Normal cardiac size with coronary artery calcifications. ABDOMEN: Liver: Unremarkable. Gallbladder and bile ducts: Trace stranding surrounding the gallbladder wall otherwise normal gallbladder and biliary system. No calcified stones. No ductal dilation. Pancreas: Unremarkable. No ductal dilation. Spleen: Unremarkable. No splenomegaly. Adrenals: Unremarkable. No mass. Kidneys and ureters: Mild bilateral perinephric stranding otherwise normal bilateral kidneys. No obstructing stones. No hydronephrosis. Stomach and bowel: Diverticulosis throughout the colon with no signs of diverticulitis. No obstruction. PELVIS: Appendix: Normal appendix. Bladder: Slightly over distended urinary bladder. No stones. Reproductive: Unremarkable as visualized. ABDOMEN and PELVIS: Intraperitoneal space: Unremarkable. No free air. No significant fluid collection. Bones/joints: Scoliosis of the lumbar spine with convexity to the right along with advanced degenerative disease. No acute fracture. No dislocation. Soft tissues: Postoperative changes from ventral hernia repair. Small bilateral fat-containing inguinal hernias. Vasculature: Dilatation of the lower thoracic aorta up to 4.7 cm consistent with aneurysmal dilatation. Dilatation of the proximal abdominal aorta in the region of the renal artery measuring approximately 3.7 x 4.7 cm consistent with aneurysm. Atherosclerotic disease throughout the remainder of the aorta otherwise maintain normal size. Lymph nodes: Unremarkable. No enlarged lymph nodes. IMPRESSION: 1. Mild stranding surrounding the gallbladder, cannot exclude acute cholecystitis. Recommend follow-up with right upper quadrant ultrasound. 2. 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 3. Diverticulosis with no signs of diverticulitis. No acute appendicitis or bowel obstruction. Electronically signed by: Zaria Jacobo MD 11/02/22 04:22 AM ABDOMINAL ULTRASOUND, RIGHT UPPER QUADRANT HISTORY: RUQ pain. COMPARISON: Abdomen and pelvis CT 11/02/2022. FINDINGS: Pancreas: Obscured by overlying bowel gas. Liver: A 1.1 cm septated left hepatic lobe cyst. Gallbladder: There is a punctate stone within the gallbladder. The gallbladder is distended and demonstrates a thickened wall measuring up to 5 mm. There is trace pericholecystic fluid. The technologist reported a positive sonographic Ramirez sign. Therefore, these findings are suspicious for acute cholecystitis. Surgical consultation recommended. CBD: 5 mm. Right kidney: Atrophic and echogenic measuring 8.6 cm. No hydronephrosis. Miscellaneous: A 4.1 x 3.4 cm proximal abdominal aortic aneurysm. IMPRESSION: 1. Above findings suspicious for acute cholecystitis. Surgical consultation recommended. 2. A 4.1 x 3.4 cm proximal abdominal aortic aneurysm. ACT 112: Negative or not required by law. Electronically signed by: Angel Mak M.D. 11/02/2022 6:42 AM PG Care Time/CCT Total # of Minutes Spent Total Time Spent with Patient: Total time spent is greater than 50% in coordination of care (as documented) at patient's floor/unit and/or counseling patient: Coding Level of Care Code 93628 INT INP/OBS CARE 3/75MIN Diagnoses Abdominal pain, acute, right upper quadrant R10.11
[2022-11-02] MEDS: HYDROmorphone INJ 0.5 MG/0.5 ML SYR IV PRN (09:00)
--- NOTE | 2022-11-02 09:12 | Gastrointestinal Consultation ---
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 No evidence of acute gi bleeding Trend H&H Monitor and document GI output PO PPI BID Transfuse PRN Follow HIDA scan, if negative can consider OP axios MRCP to rule out CBD stone Appreciate general surgery evaluation Thank you for allowing us to participate in the care of this patient. Please call with any acute changes, questions or concerns. Please see addendum below with additional recommendation from my supervising physician. Supervising Physician Co-Signing Physician Notes I performed a history and physical examination of the patient today, including specifically on physical exam - soft abdomen. I have discussed the patient's management with the advanced practitioner. Please refer to the nurse practitioner's note for the documented findings and plan of care. No evidence of overt ongoing GI bleeding. Anemia is likely related to chronic disease and CKD. PPI is fine. Regarding his acute cholecystitis with mild elevation in LFTs, obtain MRCP to r/o choledocholithiasis. He is high risk for surgery. If HIDA is - an no plans for surgery then will arrange OP Axios stent. If HIDA is positive then he may benefit from IR guided drain and then I will convert this to an Axios stent as OP in 2 months. 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 GI asked to evauate for ? GI bleed. Pt was seen and evaluated, chart reviewed. Notes chronic, intermittent black stools. No BRB. No increase in BM. No black/bloody emesis. Has had RUQ pain, severe. Mild nausea. No vomiting. No fever, chills, CP, SOB. HGB close to baseline No BUN elevation ABD US 2022: Above findings suspicious for acute cholecystitis. Surgical consultation recommended. 2. A 4.1 x 3.4 cm proximal abdominal aortic aneurysm. CTAP 2022: 1. Mild stranding surrounding the gallbladder, cannot exclude acute cholecystitis. Recommend follow-up with right upper quadrant ultrasound. 2. 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 3. Diverticulosis with no signs of diverticulitis. No acute appendicitis or bowel obstruction. EGD 2021: - Normal esophagus. - Normal stomach. - Normal examined duodenum. - No specimens collected. EGD 2021: - Normal esophagus. - Gastritis. - Non-obstructing non-bleeding gastric ulcer with pigmented material. NSAID induced etiology. - Normal examined duodenum. - No specimens collected. Colonoscopy 2020: - The examined portion of the ileum was normal. - One 6 mm polyp in the transverse colon, removed with a cold snare. Resected and retrieved. - Diverticulosis in the sigmoid colon. - Non-bleeding internal hemorrhoids. Allergies Allergy/AdvReac Type Severity Reaction Status Date / Time RUBENS Inhibitors AdvReac Intermediate DROPS Verified 11/02/22 01:45 BLOOD PRESSURE lisinopril AdvReac Intermediate DROPS Verified 11/02/22 01:45 BLOOD PRESSURE Home Medications Medication Instructions Recorded Confirmed Type atorvastatin 80 mg tablet 80 mg PO QPM 03/25/19 11/02/22 History clopidogrel 75 mg tablet 75 mg PO QAM 03/25/19 11/02/22 History fluticasone propionate 50 2 spray intranasal DAILY 03/25/19 11/02/22 History mcg/actuation nasal spray,suspension cholecalciferol (vitamin D3) 50 2,000 unit PO QAM 06/10/20 11/02/22 History mcg (2,000 unit) capsule (D3-1999) amlodipine 2.5 mg tablet 2.5 mg PO QAM 12/30/20 11/02/22 History iron,carbonyl 65 mg-vitamin C 125 1 tab PO QAM 12/30/20 11/02/22 History mg tablet,delayed release (Vitron-C) albuterol sulfate 90 mcg/actuation 2 puff inhalation Q4 PRN Wheezing 10/31/21 11/02/22 History aerosol inhaler allopurinol 300 mg tablet 150 mg PO QAM 10/31/21 11/02/22 History metoprolol tartrate 25 mg tablet 12.5 mg PO BID 10/31/21 11/02/22 History pantoprazole 40 mg tablet,delayed 40 mg PO QAM 02/25/22 11/02/22 History release ezetimibe 10 mg tablet 10 mg PO QAM 08/04/22 11/02/22 History Oxygen Home #1 ea 08/09/22 10/14/22 Rx apixaban 5 mg tablet 5 mg PO BID 10/11/22 11/02/22 History docusate sodium 100 mg capsule 100 mg PO BID PRN Constipation 10/11/22 11/02/22 History ipratropium 0.5 mg-albuterol 3 mg 3 ml inhalation Q6H PRN Shortness 10/14/22 11/02/22 History (2.5 mg base)/3 mL nebulization Of Breath soln umeclidinium 62.5 mcg-vilanterol 1 inh inhalation DAILY 11/02/22 11/02/22 History 25 mcg/actuation powdr for inhalation (Anoro Ellipta) Patient History Medical History Aneurysm CT chest w/o contrast 06/25/22 - 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 Ascending thoracic aorta at the level of the right pulmonary artery 4.2 cm unchanged. 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 Descending thoracic aorta at the level of the left atrium again up to 4.7 cm. Aortic stenosis Thoracic aortic atherosclerosis, densely calcified coronary arteries, severely calcified aortic valve, aneurysmal outpouching of the aortic arch. CKD (chronic kidney disease), stage III follows with [facility] Gastric ulcer Hearing deficit BL NAILS History of GI bleed Hx of gout Hx SBO Hyperlipidemia Hypertension ANDREW (iron deficiency anemia) Obesity Paroxysmal ventricular tachycardia 19 beat run of ventricular tachycardia via Zio monitoring PFO (patent foramen ovale) per records. follows with Dr. 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 TO HAVE SLIGHT BALANCE ISSUES Surgical History History of esophagogastroduodenoscopy (EGD) History of lumbar surgery 1999 History of tonsillectomy History of tonsillectomy and adenoidectomy History of tooth extraction Hx of colonoscopy Hx of hernia repair lysis of adhesions, incisional hernia repair laparoscopically 01/28/2010 at [facility], [place] - Dr Desouza S/P AAA repair 01/13/2009 - Dr Suazo ([facility] AT [facility]) Family History Other AAA (abdominal aortic aneurysm) Hypertension No family history of adverse response to anesthesia Social History Smoking Status: Former smoker Tobacco Type: Cigarettes Age Started Using Tobacco: 18; Cigarettes Per Day: Former cigarette. 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: No Beliefs That Will Affect Care: None marital status: Current Living Situation: Spouse current occupational status: employed Other Information That Helps Us Care for You: No Feels Safe at Home: Yes Safety Concerns: Feels Safe At This Time Assistive Devices: CPAP, Glasses, Hearing Aid - Bilateral and Oxygen - Continuous Review of Systems Review of Systems: All systems reviewed & are unremarkable except as noted in HPI & below Physical Exam Constitutional: WD/WN, vitals as above Respiratory: normal respiratory effort, lungs clear to auscultation Cardiovascular: Rate/Rhythm: regular rate and regular rhythm Gastrointestinal (Abdomen): Percussion/Palpation: + abdomen tender and abdomen soft; no guarding and abdomen not rigid Skin: no rashes, warm and dry Results & Data Vital Signs (Past 12 Hours) Vital Signs Temp Pulse Pulse Resp BP BP BP 11/02/22 08:30 36.4 C L 69 16 192/84 H 11/02/22 08:00 36.6 C 75 18 146/69 H 11/02/22 07:50 36.4 C L 66 18 177/94 H 11/02/22 08:00 11/02/22 08:00 36.6 C 75 18 146/69 H 11/02/22 07:04 36.3 C L 68 16 178/96 H 11/02/22 07:00 63 18 178/96 H 11/02/22 06:56 65 165/86 H 11/02/22 06:45 36.6 C 66 18 165/86 H 11/02/22 05:09 66 11/02/22 04:00 72 14 196/100 H 11/02/22 03:30 78 23 189/87 H 11/02/22 03:29 84 15 176/69 H 11/02/22 03:00 211/98 H 11/02/22 02:30 184/87 H 11/02/22 02:21 196/108 H 11/02/22 01:30 68 22 208/93 H 11/02/22 01:18 68 11/02/22 01:08 36.9 C 71 18 201/80 H Pulse Ox O2 Del Method O2 Flow Rate 11/02/22 08:30 100 11/02/22 08:00 92 2 11/02/22 07:50 99 Nasal Cannula 2 11/02/22 08:00 Nasal Cannula 2 11/02/22 08:00 92 Nasal Cannula 2 11/02/22 07:04 98 3 11/02/22 07:00 100 Nasal Cannula 3 11/02/22 06:56 11/02/22 06:45 100 3 11/02/22 05:09 11/02/22 04:00 98 Nasal Cannula 2 11/02/22 03:30 99 Nasal Cannula 2 11/02/22 03:29 99 Nasal Cannula 2 11/02/22 03:00 99 Nasal Cannula 2 11/02/22 02:30 98 Room Air 11/02/22 02:21 93 Room Air 11/02/22 01:30 99 Room Air 11/02/22 01:18 11/02/22 01:08 96 Nasal Cannula 2 Laboratory Results 11/02/22 11/02/22 11/02/22 Range/Units 05:30 05:04 05:04 WBC (4.8-10.8) K/ul RBC (4.70-6.10) M/uL Hgb 7.8 L (14.0-18.0) g/dl Hct 25.9 L (42.0-52.0) % MCV (80.0-100.0) fL MCH (25.0-34.0) pg MCHC (32.0-36.0) g/dL RDW Std Deviation (36.4-46.3) fL RDW Coeff of Chaka (11.5-14.5) % Plt Count (130-400) K/uL MPV (9.4-12.4) fL Immature Gran % (Auto) % Neut % (Auto) % Lymph % (Auto) % [place] % (Auto) % Eos % (Auto) % Baso % (Auto) % Neut # (Auto) (1.40-6.50) K/uL Lymph # (Auto) (1.2-3.4) K/uL [place] # (Auto) (0.11-0.59) K/uL Eos # (Auto) (0-0.50) K/uL Baso # (Auto) (0-0.2) K/uL Immature Gran # (Auto) (0.01-0.20) K/uL Polychromasia APTT (21.0-31.0) Seconds PTT Ratio Sodium (136-145) mmol/L Potassium (3.5-5.1) mmol/L Chloride (98-107) mmol/L Carbon Dioxide (21-32) mmol/L Anion Gap (3-11) BUN (6-23) mg/dl Creatinine (0.6-1.4) mg/dl Est Cr Clr Drug Dosing ml/min Est GFR ( Amer) ml/min Est GFR (Non-Af Amer) ml/min BUN/Creatinine Ratio (10-20) Glucose (70-99(Fasting)) mg/dl Estimat Average Glucose 74 mg/dl Hemoglobin A1c 4.2 L (4.5-5.6) % Calcium (8.6-10.3) mg/dl Magnesium (1.7-2.4) mg/dl Total Bilirubin (0.2-1.0) mg/dl Direct Bilirubin (0-0.2) mg/dl AST (13-39) U/L ALT (7-52) U/L Alkaline Phosphatase (34-104) U/L Total Protein (6.0-8.3) gm/dl Albumin (3.4-5.0) gm/dl Globulin (2.5-4.0) gm/dl Albumin/Globulin Ratio (0.9-2) Lipase (11-82) U/L Urine Color Urine Appearance (Clear) Urine pH (4.5-7.5) Ur Specific [place] (1.000-1.030) Urine Protein (Negative) Urine Glucose (UA) (Negative) Urine Ketones (Negative) Urine Blood (Negative) Urine Nitrite (Negative) Urine Bilirubin (Negative) Urine Urobilinogen (Negative) Ur Leukocyte Esterase (Negative) Urine WBC (Auto) (0-5) /hpf Urine RBC (Auto) (0-4) /hpf U Hyaline Cast (Auto) (0-5) /lpf U Epithel Cells (Auto) (0-5) /lpf Urine Bacteria (Auto) (Negative) SARS-CoV-2, RNA, NAAT NEGATIVE (NEGATIVE) Blood Type Antibody Screen Crossmatch 11/02/22 11/02/22 11/02/22 Range/Units 05:04 01:00 01:00 WBC (4.8-10.8) K/ul RBC (4.70-6.10) M/uL Hgb (14.0-18.0) g/dl Hct (42.0-52.0) % MCV (80.0-100.0) fL MCH (25.0-34.0) pg MCHC (32.0-36.0) g/dL RDW Std Deviation (36.4-46.3) fL RDW Coeff of Chaka (11.5-14.5) % Plt Count (130-400) K/uL MPV (9.4-12.4) fL Immature Gran % (Auto) % Neut % (Auto) % Lymph % (Auto) % [place] % (Auto) % Eos % (Auto) % Baso % (Auto) % Neut # (Auto) (1.40-6.50) K/uL Lymph # (Auto) (1.2-3.4) K/uL [place] # (Auto) (0.11-0.59) K/uL Eos # (Auto) (0-0.50) K/uL Baso # (Auto) (0-0.2) K/uL Immature Gran # (Auto) (0.01-0.20) K/uL Polychromasia APTT 26.4 (21.0-31.0) Seconds PTT Ratio 0.9 Sodium (136-145) mmol/L Potassium (3.5-5.1) mmol/L Chloride (98-107) mmol/L Carbon Dioxide (21-32) mmol/L Anion Gap (3-11) BUN (6-23) mg/dl Creatinine (0.6-1.4) mg/dl Est Cr Clr Drug Dosing ml/min Est GFR ( Amer) ml/min Est GFR (Non-Af Amer) ml/min BUN/Creatinine Ratio (10-20) Glucose (70-99(Fasting)) mg/dl Estimat Average Glucose mg/dl Hemoglobin A1c (4.5-5.6) % Calcium (8.6-10.3) mg/dl Magnesium (1.7-2.4) mg/dl Total Bilirubin (0.2-1.0) mg/dl Direct Bilirubin (0-0.2) mg/dl AST (13-39) U/L ALT (7-52) U/L Alkaline Phosphatase (34-104) U/L Total Protein (6.0-8.3) gm/dl Albumin (3.4-5.0) gm/dl Globulin (2.5-4.0) gm/dl Albumin/Globulin Ratio (0.9-2) Lipase (11-82) U/L Urine Color Yellow Urine Appearance Clear (Clear) Urine pH 6.0 (4.5-7.5) Ur Specific [place] 1.012 (1.000-1.030) Urine Protein 2+ H (Negative) Urine Glucose (UA) Negative (Negative) Urine Ketones Negative (Negative) Urine Blood Negative (Negative) Urine Nitrite Negative (Negative) Urine Bilirubin Negative (Negative) Urine Urobilinogen Negative (Negative) Ur Leukocyte Esterase Negative (Negative) Urine WBC (Auto) 1-5 (0-5) /hpf Urine RBC (Auto) 0-4 (0-4) /hpf U Hyaline Cast (Auto) 0 (0-5) /lpf U Epithel Cells (Auto) 0-5 (0-5) /lpf Urine Bacteria (Auto) Negative (Negative) SARS-CoV-2, RNA, NAAT (NEGATIVE) Blood Type A Positive Antibody Screen NEGATIVE Crossmatch See Detail 11/02/22 11/02/22 Range/Units 01:00 01:00 WBC 11.16 H (4.8-10.8) K/ul RBC 2.58 L (4.70-6.10) M/uL Hgb 7.8 L (14.0-18.0) g/dl Hct 26.5 L (42.0-52.0) % MCV 102.7 H (80.0-100.0) fL MCH 30.2 (25.0-34.0) pg MCHC 29.4 L (32.0-36.0) g/dL RDW Std Deviation 74.3 H (36.4-46.3) fL RDW Coeff of Chaka 19.9 H (11.5-14.5) % Plt Count 156 (130-400) K/uL MPV 10.9 (9.4-12.4) fL Immature Gran % (Auto) 0.4 % Neut % (Auto) 86.1 % Lymph % (Auto) 6.1 % [place] % (Auto) 3.9 % Eos % (Auto) 2.8 % Baso % (Auto) 0.7 % Neut # (Auto) 9.62 H (1.40-6.50) K/uL Lymph # (Auto) 0.68 L (1.2-3.4) K/uL [place] # (Auto) 0.43 (0.11-0.59) K/uL Eos # (Auto) 0.31 (0-0.50) K/uL Baso # (Auto) 0.08 (0-0.2) K/uL Immature Gran # (Auto) 0.04 (0.01-0.20) K/uL Polychromasia 2+ APTT (21.0-31.0) Seconds PTT Ratio Sodium 139 (136-145) mmol/L Potassium 3.6 (3.5-5.1) mmol/L Chloride 105 (98-107) mmol/L Carbon Dioxide 23 (21-32) mmol/L Anion Gap 11 (3-11) BUN 27 H (6-23) mg/dl Creatinine 2.24 H (0.6-1.4) mg/dl Est Cr Clr Drug Dosing 30.4 ml/min Est GFR ( Amer) 32.3 ml/min Est GFR (Non-Af Amer) 27.8 ml/min BUN/Creatinine Ratio 12.1 (10-20) Glucose 161 H (70-99(Fasting)) mg/dl Estimat Average Glucose mg/dl Hemoglobin A1c (4.5-5.6) % Calcium 9.2 (8.6-10.3) mg/dl Magnesium 2.0 (1.7-2.4) mg/dl Total Bilirubin 0.8 (0.2-1.0) mg/dl Direct Bilirubin 0.3 H (0-0.2) mg/dl AST 99 H (13-39) U/L ALT 42 (7-52) U/L Alkaline Phosphatase 128 H (34-104) U/L Total Protein 7.3 (6.0-8.3) gm/dl Albumin 4.1 (3.4-5.0) gm/dl Globulin 3.2 (2.5-4.0) gm/dl Albumin/Globulin Ratio 1.3 (0.9-2) Lipase 55 (11-82) U/L Urine Color Urine Appearance (Clear) Urine pH (4.5-7.5) Ur Specific [place] (1.000-1.030) Urine Protein (Negative) Urine Glucose (UA) (Negative) Urine Ketones (Negative) Urine Blood (Negative) Urine Nitrite (Negative) Urine Bilirubin (Negative) Urine Urobilinogen (Negative) Ur Leukocyte Esterase (Negative) Urine WBC (Auto) (0-5) /hpf Urine RBC (Auto) (0-4) /hpf U Hyaline Cast (Auto) (0-5) /lpf U Epithel Cells (Auto) (0-5) /lpf Urine Bacteria (Auto) (Negative) SARS-CoV-2, RNA, NAAT (NEGATIVE) Blood Type Antibody Screen Crossmatch
[2022-11-02] MEDS: ALBUT/IPRATROP 3MG/0.5MG NEB 3 ML VIAL NEB PRN ×2 (09:54→12:29)
[2022-11-02] MEDS: allopurinoL 300 MG TAB PO SCH (10:40)
[2022-11-02] MEDS: METOPROLOL TARTRATE 25 MG TAB PO SCH ×2 (10:41→20:11)
[2022-11-02] MEDS: EZETIMIBE 10 MG TABLET PO SCH (10:41)
[2022-11-02] MEDS: FLUTICASONE PROPIONATE NA SPR 16 GM BTL SCH (10:42)
[2022-11-02] MEDS: amLODIPine BESYLATE 5 MG TAB PO SCH (10:42)
[2022-11-02] MEDS: UMECLIDINIUM/VILANTEROL 62.5/25MCG 7 PUFFS/INHALER INH SCH (10:43)
[2022-11-02 12:28] LABS: Hematocrit (blood only) 28.1 % (42.0-52.0); Hemoglobin 8.4 g/dl (14.0-18.0)
--- NOTE | 2022-11-02 14:33 | Nuclear Medicine Report ---
NUCLEAR MEDICINE HEPATOBILIARY SCAN CLINICAL HISTORY: Right upper quadrant pain. Possible cholecystitis. COMPARISON: CT of the abdomen and pelvis and right upper quadrant ultrasound November 02, 2022. TECHNIQUE: 5.3 mCi of technetium 99m Choletec IV was injected at 1:00 PM on November 02, 2022. Immediat jean-pierre following injection, imaging of the abdomen was carried out for 60 minutes in the anterior projec tion. FINDINGS: Hepatic uptake of radiotracer is prompt and homogeneous. Activity is identified within the common bile duct at 30 minutes. Minimal radiotracer within the gallbladder is noted at 50 minutes. T here is progressive accumulation of radiotracer within the gallbladder on the 75 minute image. There is delayed visualization of small bowel activity. Activity is identified within the small bowel at 75 minutes. IMPRESSION: 1. Minimal radiotracer within the gallbladder. Therefore, this study is technically negative for acut e or chronic cholecystitis. However, given minimal radiotracer within the gallbladder, a false negati ve HIDA cannot be completely excluded. Short-term follow-up CT of the abdomen might be considered if persistent suspicion for acute cholecystitis. 2. Delayed visualization of small bowel activity. This is a nonspecific finding which can be seen in the setting of sphincter spasm/dysfunction or partial common bile duct obstruction. ACT 112: Negative or not required by law. Electronically signed by: Filiberto Donahue M.D. 11/02/2022 2:32 PM
--- NOTE | 2022-11-02 14:36 | Hospitalist Progress Note ---
Date of Service November 02, 2022 Assessment & Plan (1) Hypertensive crisis: Plan: Hypertensive urgency Situational secondary to pain Continue Amlodipine, Metoprolol Monitor BP, adjust meds as needed Suspected Acute cholecystitis RUQ Abdominal Pain --CT ABD:Mild stranding surrounding the gallbladder, cannot exclude acute cholecystitis. Recommend follow-up with right upper quadrant ultrasound. 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 Diverticulosis with no signs of diverticulitis. No acute appendicitis or bowel obstruction. --Gall Bladder USD:Findings suspicious for acute cholecystitis. Surgical consultation recommended. A 4.1 x 3.4 cm proximal abdominal aortic aneurysm. --HIDA:Minimal radiotracer within the gallbladder. Therefore, this study is technically negative for acute or chronic cholecystitis. However, given minimal radiotracer within the gallbladder, a false negative HIDA cannot be completely excluded. Short-term follow-up CT of the abdomen might be considered if persistent suspicion for acute cholecystitis. Delayed visualization of small bowel activity. This is a nonspecific finding which can be seen in the setting of sphincter spasm/dysfunction or partial common bile duct obstruction. 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 Eliquis and Plavix held due to possible need for procedure Continue Lipitor, Zetia Chronic respiratory failure secondary to COPD On 2L supplemental Oxygen at baseline GINNY/nocturnal hypoxemia Continue Supplemental oxygen and CPAP HS H/O PSVT Valvular heart disease (severe , mild AR) Was planned to be evaluated by [facility] as per records Continue Metoprolol Hyperlipidemia on statin H/O Waldenstrom macroglobulinemia Past tobacco abuse As per records CKD III Cr at baseline Monitor renal function DVT Px: SCDs Re: GI bleed Code Status Full code Admission and Anticipated Discharge Date Admission Date: November 02, 2022 Subjective Patient is seen and examined at bedside States having right-sided abdominal pain associated with nausea, vomiting this morning Reports chronic dyspnea, wheezing Also had melena Denies any chest pain, dizziness Discussed with patient's family at bedside Review of Systems Review of Systems: All systems reviewed & are unremarkable except as noted in Subjective Physical Exam Physical Exam: Physical Exam: Vitals signs as noted above General Appearance:Obese, no apparent distress Head: normocephalic, Atraumatic Eyes: normal inspection, EOMI Neck: supple, Trachea midline Respiratory/Chest: Decreased breath sounds, expiratory wheezes, No accessory muscle use Cardiovascular: S1, S2, + murmur Abdomen/GI:Soft, RUQ tender, Bowel sounds present Extremities/Musculoskeletal:normal inspection, 2+ B/L LE edema Neurologic/Psych:AAOX3, grossly no focal neurological deficits Skin: normal color, warm Results & Data Results & Data Vital Signs (Past 12 Hours) Vital Signs Temp Pulse Pulse Resp BP BP BP 11/02/22 12:31 79 18 11/02/22 11:12 37.0 C 71 18 175/82 H 11/02/22 11:17 11/02/22 08:55 11/02/22 10:15 36.9 C 68 20 178/74 H 11/02/22 09:49 36.7 C 76 18 163/80 H 11/02/22 09:54 71 18 11/02/22 09:00 36.6 C 73 17 168/92 H 11/02/22 08:30 36.4 C L 69 16 192/84 H 11/02/22 08:00 36.6 C 75 18 146/69 H 11/02/22 07:50 36.4 C L 66 18 177/94 H 11/02/22 08:00 11/02/22 08:00 36.6 C 75 18 146/69 H 11/02/22 07:04 36.3 C L 68 16 178/96 H 11/02/22 07:00 63 18 178/96 H 11/02/22 06:56 65 165/86 H 11/02/22 06:45 36.6 C 66 18 165/86 H 11/02/22 05:09 66 11/02/22 04:00 72 14 196/100 H 11/02/22 03:30 78 23 189/87 H 11/02/22 03:29 84 15 176/69 H 11/02/22 03:00 211/98 H 11/02/22 02:30 184/87 H 11/02/22 02:21 196/108 H Pulse Ox Pulse Ox O2 Del Method O2 Del Method O2 Flow Rate O2 Flow Rate 11/02/22 12:31 98 Nasal Cannula 1 11/02/22 11:12 98 Room Air 11/02/22 11:17 Room Air, Nasal Cannula 2 11/02/22 08:55 100 Nasal Cannula 2 11/02/22 10:15 98 11/02/22 09:49 91 11/02/22 09:54 89 L Room Air 11/02/22 09:00 100 11/02/22 08:30 100 11/02/22 08:00 92 2 11/02/22 07:50 99 Nasal Cannula 2 11/02/22 08:00 Nasal Cannula 2 11/02/22 08:00 92 Nasal Cannula 2 11/02/22 07:04 98 3 11/02/22 07:00 100 Nasal Cannula 3 11/02/22 06:56 11/02/22 06:45 100 3 11/02/22 05:09 11/02/22 04:00 98 Nasal Cannula 2 11/02/22 03:30 99 Nasal Cannula 2 11/02/22 03:29 99 Nasal Cannula 2 11/02/22 03:00 99 Nasal Cannula 2 11/02/22 02:30 98 Room Air 11/02/22 02:21 93 Room Air Laboratory Results Short CBC 11/02/22 11/02/22 11/02/22 Range/Units 01:00 05:04 12:02 WBC 11.16 H (4.8-10.8) K/ul Hgb 7.8 L 7.8 L 8.4 L (14.0-18.0) g/dl Hct 26.5 L 25.9 L 28.1 L (42.0-52.0) % Plt Count 156 (130-400) K/uL BMP 11/02/22 01:00 Sodium 139 Potassium 3.6 Chloride 105 Carbon Dioxide 23 BUN 27 H Creatinine 2.24 H Glucose 161 H Calcium 9.2 Liver Function 11/02/22 Range/Units 01:00 Total Bilirubin 0.8 (0.2-1.0) mg/dl Direct Bilirubin 0.3 H (0-0.2) mg/dl AST 99 H (13-39) U/L ALT 42 (7-52) U/L Alkaline Phosphatase 128 H (34-104) U/L Albumin 4.1 (3.4-5.0) gm/dl Urine 11/02/22 Range/Units 01:00 Urine Color Yellow Urine Appearance Clear (Clear) Urine pH 6.0 (4.5-7.5) Ur Specific [place] 1.012 (1.000-1.030) Urine Protein 2+ H (Negative) Urine Glucose (UA) Negative (Negative)
--- NOTE | 2022-11-02 15:19 | Electrocardiogram Report ---
Test Reason : Blood Pressure : / mmHG Vent. Rate : 070 BPM Atrial Rate : 070 BPM P-R Int : 310 ms QRS Dur : 096 ms QT Int : 430 ms P-R-T Axes : 000 025 037 degrees QTc Int : 464 ms Sinus rhythm with 1st degree A-V block Otherwise normal ECG When compared with ECG of 14-OCT-2022 20:38, NM interval has increased Confirmed by Aaron Dunbar ([id number]) on 11/02/2022 3:19:23 PM Referred By: REFERRED SELF Confirmed By:Aaron Dunbar
--- NOTE | 2022-11-02 16:24 | Magnetic Resonance Report ---
MR MRCP HISTORY: Right upper quadrant pain. Abnormal gallbladder. ? cbd stone TECHNIQUE: MRCP of the abdomen was performed without contrast according to standard department protoc ol. COMPARISON STUDY: Abdomen and pelvis CT 11/02/2022. FINDINGS: Motion artifact results in suboptimal evaluation of the abdomen. The lung bases are clear. The heart is mildly enlarged. There is a 4.2 cm proximal abdominal aortic aneurysm. There is also mil d aneurysmal dilatation of the descending thoracic aorta measuring up to 4.1 cm in diameter. No intra hepatic bile duct dilatation. No hepatic or splenic masses. Mild bilateral perinephric edema. This is likely chronic. No hydronephrosis. There is a 1 cm T2 hyperintense lesion within the lower pole of t he left kidney. This likely represents a cyst but is incompletely characterized on this noncontrast s tudy. Normal pancreas. The main pancreatic duct is normal in course and caliber. No retroperitoneal l ymphadenopathy. The IVC and main portal vein appear patent. The visualized loops of bowel show no wal l thickening or obstruction. The bladder is not well assessed due to the motion artifact. There is tr екатерина pericholecystic fluid suggested. The patient's known gallstones are not well visualized. The comm on bile duct is normal in caliber measuring up to 6 mm. No definite filling defects within the common bile duct. IMPRESSION: 1. Suboptimal evaluation due to the motion artifact. 2. There is trace pericholecystic fluid. This is nonspecific and could be due to an acute cholecystit is, underlying hepatic pathology, or a diffuse edematous state. 3. The patient's known gallstones are not well visualized due to the motion artifact. 4. The common bile duct is normal in caliber measuring 6 mm. No definite filling defects within the c ommon bile duct. 5. Aneurysmal dilatation of the descending thoracic aorta and proximal abdominal aorta as described a melony. ACT 112: Negative or not required by law. Electronically signed by: Angel Mak M.D. 11/02/2022 4:23 PM
[2022-11-02] MEDS: PIPERACILLIN/TAZOBACTAM 4.5 GM in DEXTROSE 5% 100 ML IV SCH (16:36)
[2022-11-02 16:45] LABS: Hematocrit (blood only) 28.4 % (42.0-52.0); Hemoglobin 8.6 g/dl (14.0-18.0)
[2022-11-02] MEDS: traMADol HCL 50 MG TABLET PO PRN ×2 (16:49→20:26)
[2022-11-02] MEDS: ATORVASTATIN 40 MG TAB PO SCH (20:10)
[2022-11-02] MEDS: PANTOprazole 40 MG in SYRINGE 0 ML IV SCH (20:11)
[2022-11-02 21:00] LABS: Hematocrit (blood only) 25.8 % (42.0-52.0); Hemoglobin 7.9 g/dl (14.0-18.0)
[2022-11-03] MEDS: PIPERACILLIN/TAZOBACTAM 4.5 GM in DEXTROSE 5% 100 ML IV SCH ×4 (00:36→23:29)
[2022-11-03 03:48] LABS: Basophils # (auto) 0.06 K/uL (0-0.2); Basophils % (auto) 0.7 %; Eosinophils # (auto) 0.73 K/uL (0-0.50); Eosinophils % (auto) 8.7 %; Hematocrit (blood only) 28.5 % (42.0-52.0); Hemoglobin 8.8 g/dl (14.0-18.0); Immature Granulocytes # (auto) 0.02 K/uL (0.01-0.20); Immature Granulocytes % (auto) 0.2 %; Lymphocytes # (auto) 1.07 K/uL (1.2-3.4); Lymphocytes % (auto) 12.8 %; Mean Corpuscular Hemoglobin 30.6 pg (25.0-34.0); Mean Corpuscular Hgb Conc 30.9 g/dL (32.0-36.0); Mean Platelet Volume 10.2 fL (9.4-12.4); Monocytes # (auto) 0.76 K/uL (0.11-0.59); Monocytes % (auto) 9.1 %; Neutrophils # (auto) 5.72 K/uL (1.40-6.50); Neutrophils % (auto) 68.5 %; Platelet Count 194 K/uL (130-400); RDW Coefficient of Variation 20.7 % (11.5-14.5); RDW Standard Deviation 74.8 fL (36.4-46.3); Red Blood Count 2.88 M/uL (4.70-6.10); White Blood Count 8.36 K/ul (4.8-10.8)
[2022-11-03 04:00] LABS: Albumin Globulin Ratio 1.1 (0.9-2); Albumin Level 3.4 gm/dl (3.4-5.0); BUN Creatinine Ratio 9.4 (10-20); Bilirubin,Total 1.7 mg/dl (0.2-1.0); Calcium 8.3 mg/dl (8.6-10.3); Creatinine Clr Calc Pharmacy 31.5 ml/min; Est GFR (African American) 34.3 ml/min; Est GFR (Non-African American) 29.6 ml/min; Potassium 3.8 mmol/L (3.5-5.1); Total Protein 6.4 gm/dl (6.0-8.3)
[2022-11-03 04:04] LABS: Anisocytosis Present; Poikilocytosis Present; Polychromasia 2+
[2022-11-03] MEDS: PANTOprazole 40 MG in SYRINGE 0 ML IV SCH ×2 (08:09→21:09)
[2022-11-03] MEDS: allopurinoL 300 MG TAB PO SCH (08:10)
[2022-11-03] MEDS: EZETIMIBE 10 MG TABLET PO SCH (08:10)
[2022-11-03] MEDS: METOPROLOL TARTRATE 25 MG TAB PO SCH ×2 (08:10→21:09)
[2022-11-03] MEDS: FLUTICASONE PROPIONATE NA SPR 16 GM BTL SCH (08:11)
[2022-11-03] MEDS: amLODIPine BESYLATE 5 MG TAB PO SCH (08:11)
[2022-11-03] MEDS: UMECLIDINIUM/VILANTEROL 62.5/25MCG 7 PUFFS/INHALER INH SCH (08:12)
[2022-11-03] MEDS: ALBUT/IPRATROP 3MG/0.5MG NEB 3 ML VIAL NEB PRN ×4 (08:15→21:34)
--- NOTE | 2022-11-03 08:16 | CT Scan Report ---
CT OF THE HEAD WITHOUT CONTRAST CLINICAL HISTORY: Lower extremity weakness, nausea and vomiting. Evaluate for stroke. COMPARISON STUDY: Head CT and CT of the head October 31, 2021. MRI of the brain November 01, 2021. TECHNIQUE: Helical axial images of the head were obtained without IV contrast. Automated exposure con trol was utilized for the study. A dose lowering technique was utilized adhering to the principles o f ALARA. FINDINGS: No acute intracranial hemorrhage, midline shift or mass effect is present. Multiple foci of encephalomalacia are unchanged since prior head CT and MRI. These represent old infarcts. The appear ance of the brain is unchanged. These include old infarct within the bilateral basal ganglia. The maria alejandra tricular system is unremarkable. The basal cisterns are patent. No extra-axial collections are presen t. There are no findings to suggest acute dural sinus thrombosis or acute territorial infarct. No sig nificant calvarial abnormalities are present. Visualized portions of the sinuses and mastoid air cell s are clear. IMPRESSION: No acute intracranial findings. No change in appearance of the brain. Multiple old infar cts. ACT 112: Negative or not required by law. Electronically signed by: Filiberto Donahue M.D. 11/03/2022 8:15 AM
--- NOTE | 2022-11-03 08:23 | CT Scan Report ---
CT SCAN OF THE CHEST WITHOUT IV CONTRAST CLINICAL HISTORY: Wheezing. Crackles. COMPARISON STUDY: Chest x-ray dated 11/02/2022. Chest CT dated 01/22/2010. TECHNIQUE: CT scan of the thorax was performed from the thoracic inlet to the upper abdomen. Images are reviewed in the axial, sagittal, and coronal planes. IV contrast was not administered for this ex amination as per the referring clinician. A dose lowering technique was utilized adhering to the mely belle of EVAN. The examination is degraded by motion artifact, as well as by streak artifact from the arms which could not be elevated above the chest. CT DOSE: 1587.99 mGy.cm FINDINGS: Thyroid: Imaged portions of the thyroid gland are normal in size and attenuation. Thoracic aorta: There is advanced atherosclerotic calcification of the abdominal aorta. 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 There is aneurysmal dilatation of the distal descending th oracic aorta which measures up to 5.1 cm in diameter. The remainder of the thoracic aorta is normal i n caliber, and the arch demonstrates standard 3-vessel anatomy. 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 Heart: The heart is enlarged and without pericardial effusion. The coronary arteries and aortic valve leaflets are densely calcified. There is diminished attenuation of the cardiac blood pool as compare d to the myocardium suggesting anemia. Lungs and pleural spaces: There is mild emphysema. Pleural-based calcification with parenchymal scarr ing/fibrosis in the left upper lobe is similar to previous. There is also scarring/atelectasis at the right lung base. No airspace consolidation is seen typical for pneumonia. Minimal secretions are not ed in the trachea. No pleural effusion is identified. Mediastinum: Subcentimeter mediastinal lymph nodes are not pathologically enlarged by size criteria. Elo: Not well assessed without IV contrast. Axillae: There is no axillary lymphadenopathy. Upper abdomen: There is trace perihepatic ascites. The gallbladder is partially visualized. The wall appears mildly thickened and there is pericystic infiltration. An 11 mm left lobe hepatic cyst is inc identally noted. There is evidence of previous ventral hernia repair in the upper abdomen. Skeletal structures: The skeletal structures are osteopenic. No lytic or blastic bony lesions are see n. Arthritic change is noted in the shoulders. IMPRESSION: 1. Abnormal appearing gallbladder as above with trace perihepatic ascites. Findings are suspicious fo r acute cholecystitis. Correlate with clinical and laboratory findings. 2. Cardiomegaly, emphysema, and chronic pulmonary parenchymal changes as above. 3. No airspace consolidation or pleural effusion is identified. 4. 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 These findings are new from 2 010. Follow-up with vascular surgery is advised. 5. 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 6 cm. 6. Advanced coronary artery atherosclerosis. 7. Additional findings as above. ACT 112: Negative or not required by law. Electronically signed by: Osmany George M.D. 11/03/2022 8:21 AM
--- NOTE | 2022-11-03 08:52 | Surgery Progress Note ---
Date of Service November 03, 2022 Assessment & Plan (1) Acute cholecystitis: Plan: His HIDA images and CT chest images were reviewed and interpreted personally by myself His physical exam findings still remain concerning for acute cholecystitis We did discuss IR drainage of the gallbladder however they would want the Plavix held for 5 days I think at this point he would need drainage of the gallbladder in order to improve his symptoms We will talk with GI about the timing of their intervention We will continue to follow, but no plans for cholecystectomy due to his multiple medical comorbidities (2) Recurrent cerebrovascular accidents (CVAs): Admission and Anticipated Discharge Date Admission Date: November 02, 2022 Subjective Patient seen and examined. Still with right upper quadrant abdominal pain. Afebrile. States the pain is slightly better than yesterday. Stated he was feeling like he was having a stroke earlier this morning. Review of Systems Constitutional: no fever and no chills Physical Exam Constitutional: WD/WN, vitals as above Gastrointestinal (Abdomen): Inspection/Auscultation: abdomen normal to inspection; abdomen not distended Percussion/Palpation: + abdomen tender (Right upper quadrant), + guarding and abdomen soft; abdomen not rigid and no hernia Results & Data Vital Signs (Past 12 Hours) Vital Signs Temp Pulse Pulse Resp BP BP Pulse Ox 11/03/22 08:16 62 16 95 11/03/22 07:28 36.4 C L 67 18 187/92 H 97 11/03/22 02:55 63 32 H 96 11/03/22 02:08 36.7 C 60 16 154/76 H 98 11/03/22 01:45 36.6 C 61 14 158/68 H 99 11/02/22 23:00 66 11/03/22 00:45 36.6 C 62 12 171/97 H 98 11/02/22 23:45 36.5 C 66 13 151/81 H 95 11/02/22 23:15 37 C 68 15 161/85 H 95 11/02/22 23:00 36.9 C 66 16 159/77 H 96 11/02/22 22:30 69 29 H 90 11/02/22 22:45 36.9 C 70 15 141/75 H 93 11/02/22 22:37 37 C 65 18 167/82 H 97 O2 Del Method O2 Flow Rate 11/03/22 08:16 Nasal Cannula 1 11/03/22 07:28 Room Air 11/03/22 02:55 2 11/03/22 02:08 11/03/22 01:45 11/02/22 23:00 11/03/22 00:45 2 11/02/22 23:45 11/02/22 23:15 11/02/22 23:00 11/02/22 22:30 2 11/02/22 22:45 2 11/02/22 22:37 Nasal Cannula PG Care Time/CCT Total # of Minutes Spent Total Time Spent with Patient: Total time spent is greater than 50% in coordination of care (as documented) at patient's floor/unit and/or counseling patient: Coding Level of Care Code 54608 SUB INP/OBS CARE 05/12MIN Diagnoses Acute cholecystitis K81.0 Recurrent cerebrovascular accidents (CVAs) I63.9
--- NOTE | 2022-11-03 09:20 | Gastroenterology Progress Note ---
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, hypertension, hyperlipidemia, CRI (baseline creatinine 2s), GERD, chronic anemia (hemoglobin of 8), Waldenstrom macroglobulinemia, past tobacco abuse admitted w/ pain, nausea/vomiting and chronic dark stools - acute cholecystitis, elevated LFTs NPO after midnight EUS/ERCP Continue to hold AC No evidence of acute gi bleeding Trend H&H Monitor and document GI output PO PPI BID Transfuse PRN Appreciate general surgery evaluation We appreciate assistance in the management of any serological abnormality and corrections to include: hemoglobin >7, INR <2, platelets >50,000, potassium levels >3.5 but <5.3, and sodium levels within 5 points of the reference range prior to endoscopic evaluation. Thank you for allowing us to participate in the care of this patient. Please call with any acute changes, questions or concerns. Please see addendum below with additional recommendation from my supervising physician. Admission and Anticipated Discharge Date Admission Date: November 02, 2022 Supervising Physician Co-Signing Physician Notes I performed a history and physical examination of the patient today, including specifically on physical exam - soft abdomen. I have discussed the patient's management with the advanced practitioner. Please refer to the nurse practitioner's note for the documented findings and plan of care. HIDA not conclusive. Plan for EUS/ERCP tomorrow. Subjective Pt was seen and evaluated, chart reviewed. Sitting upright in bed. Notes he did have abd pain, nausea, vomiting. Head CT 2022: No acute intracranial findings. No change in appearance of the brain. Multiple old infarcts. MRCP 2022: Suboptimal evaluation due to the motion artifact. There is trace pericholecystic fluid. This is nonspecific and could be due to an acute cholecystitis, underlying hepatic pathology, or a diffuse edematous state. The patient's known gallstones are not well visualized due to the motion artifact. The common bile duct is normal in caliber measuring 6 mm. No definite filling defects within the common bile Aneurysmal dilatation of the descending thoracic aorta and proximal abdominal aorta as described above. HIDA 2022: . Minimal radiotracer within the gallbladder. Therefore, this study is technically negative for acute or chronic cholecystitis. However, given minimal radiotracer within the gallbladder, a false negative HIDA cannot be completely excluded. Short-term follow-up CT of the abdomen might be considered if persistent suspicion for acute cholecystitis. Delayed visualization of small bowel activity. This is a nonspecific finding which can be seen in the setting of sphincter spasm/dysfunction or partial common bile duct obstruction. ABD US 2022:Above findings suspicious for acute cholecystitis. Surgical consultation recommended. 2. A 4.1 x 3.4 cm proximal abdominal aortic aneurysm. CTAP 2022: 1. Mild stranding surrounding the gallbladder, cannot exclude acute cholecystitis. Recommend follow-up with right upper quadrant ultrasound.Aneurysmal dilatation of thedistal thoracic aorta and proximalabdominal aorta is described.Diverticulosis with no signs of diverticulitis. No acute appendicitis or bowel obstruction. EGD 2021: - Normal esophagus. - Normal stomach. - Normal examined duodenum. - No specimens collected. EGD 2021: - Normal esophagus. - Gastritis. - Non-obstructing non-bleeding gastric ulcer with pigmented material. NSAID induced etiology. - Normal examined duodenum. - No specimens collected. Colonoscopy 2020: - The examined portion of the ileum was normal. - One 6 mm polyp in the transverse colon, removed with a cold snare. Resected and retrieved. - Diverticulosis in the sigmoid colon. - Non-bleeding internal hemorrhoids. Review of Systems Review of Systems: All systems reviewed & are unremarkable except as noted in HPI & below Physical Exam Constitutional: WD/WN, vitals as above Respiratory: normal respiratory effort Cardiovascular: Rate/Rhythm: regular rate Gastrointestinal (Abdomen): Inspection/Auscultation: abdomen normal to inspection Percussion/Palpation: + abdomen tender and abdomen soft; no guarding and abdomen not rigid Skin: no rashes, warm and dry Results & Data Vital Signs (Past 12 Hours) Vital Signs Temp Pulse Pulse Resp BP BP Pulse Ox 11/03/22 08:16 62 16 95 11/03/22 07:28 36.4 C L 67 18 187/92 H 97 11/03/22 02:55 63 32 H 96 11/03/22 02:08 36.7 C 60 16 154/76 H 98 11/03/22 01:45 36.6 C 61 14 158/68 H 99 11/02/22 23:00 66 11/03/22 00:45 36.6 C 62 12 171/97 H 98 11/02/22 23:45 36.5 C 66 13 151/81 H 95 11/02/22 23:15 37 C 68 15 161/85 H 95 11/02/22 23:00 36.9 C 66 16 159/77 H 96 11/02/22 22:30 69 29 H 90 11/02/22 22:45 36.9 C 70 15 141/75 H 93 11/02/22 22:37 37 C 65 18 167/82 H 97 O2 Del Method O2 Flow Rate 11/03/22 08:16 Nasal Cannula 1 11/03/22 07:28 Room Air 11/03/22 02:55 2 11/03/22 02:08 11/03/22 01:45 11/02/22 23:00 11/03/22 00:45 2 11/02/22 23:45 11/02/22 23:15 11/02/22 23:00 11/02/22 22:30 2 11/02/22 22:45 2 11/02/22 22:37 Nasal Cannula Laboratory Results 11/03/22 11/03/22 11/03/22 Range/Units 07:28 03:15 03:15 WBC 8.36 (4.8-10.8) K/ul RBC 2.88 L (4.70-6.10) M/uL Hgb 8.8 L (14.0-18.0) g/dl Hct 28.5 L (42.0-52.0) % MCV 99.0 (80.0-100.0) fL MCH 30.6 (25.0-34.0) pg MCHC 30.9 L (32.0-36.0) g/dL RDW Std Deviation 74.8 H (36.4-46.3) fL RDW Coeff of Chaka 20.7 H (11.5-14.5) % Plt Count 194 (130-400) K/uL MPV 10.2 (9.4-12.4) fL Immature Gran % (Auto) 0.2 % Neut % (Auto) 68.5 % Lymph % (Auto) 12.8 % [place] % (Auto) 9.1 % Eos % (Auto) 8.7 % Baso % (Auto) 0.7 % Neut # (Auto) 5.72 (1.40-6.50) K/uL Lymph # (Auto) 1.07 L (1.2-3.4) K/uL [place] # (Auto) 0.76 H (0.11-0.59) K/uL Eos # (Auto) 0.73 H (0-0.50) K/uL Baso # (Auto) 0.06 (0-0.2) K/uL Immature Gran # (Auto) 0.02 (0.01-0.20) K/uL Polychromasia 2+ Poikilocytosis Present Anisocytosis Present Sodium 136 (136-145) mmol/L Potassium 3.8 (3.5-5.1) mmol/L Chloride 103 (98-107) mmol/L Carbon Dioxide 25 (21-32) mmol/L Anion Gap 8 (3-11) BUN 20 (6-23) mg/dl Creatinine 2.13 H (0.6-1.4) mg/dl Est Cr Clr Drug Dosing 31.5 ml/min Est GFR ( Amer) 34.3 ml/min Est GFR (Non-Af Amer) 29.6 ml/min BUN/Creatinine Ratio 9.4 L (10-20) Glucose 105 H (70-99(Fasting)) mg/dl POC Glucose 106 H (70-99) mg/dl Calcium 8.3 L (8.6-10.3) mg/dl Total Bilirubin 1.7 H D (0.2-1.0) mg/dl AST 135 H (13-39) U/L ALT 130 H (7-52) U/L Alkaline Phosphatase 152 H (34-104) U/L Total Protein 6.4 (6.0-8.3) gm/dl Albumin 3.4 (3.4-5.0) gm/dl Globulin 3.0 (2.5-4.0) gm/dl Albumin/Globulin Ratio 1.1 (0.9-2) Blood Type Antibody Screen Crossmatch 11/02/22 11/02/22 11/02/22 Range/Units 20:42 16:14 12:02 WBC (4.8-10.8) K/ul RBC (4.70-6.10) M/uL Hgb 7.9 L 8.6 L 8.4 L (14.0-18.0) g/dl Hct 25.8 L 28.4 L 28.1 L (42.0-52.0) % MCV (80.0-100.0) fL MCH (25.0-34.0) pg MCHC (32.0-36.0) g/dL RDW Std Deviation (36.4-46.3) fL RDW Coeff of Chaka (11.5-14.5) % Plt Count (130-400) K/uL MPV (9.4-12.4) fL Immature Gran % (Auto) % Neut % (Auto) % Lymph % (Auto) % [place] % (Auto) % Eos % (Auto) % Baso % (Auto) % Neut # (Auto) (1.40-6.50) K/uL Lymph # (Auto) (1.2-3.4) K/uL [place] # (Auto) (0.11-0.59) K/uL Eos # (Auto) (0-0.50) K/uL Baso # (Auto) (0-0.2) K/uL Immature Gran # (Auto) (0.01-0.20) K/uL Polychromasia Poikilocytosis Anisocytosis Sodium (136-145) mmol/L Potassium (3.5-5.1) mmol/L Chloride (98-107) mmol/L Carbon Dioxide (21-32) mmol/L Anion Gap (3-11) BUN (6-23) mg/dl Creatinine (0.6-1.4) mg/dl Est Cr Clr Drug Dosing ml/min Est GFR ( Amer) ml/min Est GFR (Non-Af Amer) ml/min BUN/Creatinine Ratio (10-20) Glucose (70-99(Fasting)) mg/dl POC Glucose (70-99) mg/dl Calcium (8.6-10.3) mg/dl Total Bilirubin (0.2-1.0) mg/dl AST (13-39) U/L ALT (7-52) U/L Alkaline Phosphatase (34-104) U/L Total Protein (6.0-8.3) gm/dl Albumin (3.4-5.0) gm/dl Globulin (2.5-4.0) gm/dl Albumin/Globulin Ratio (0.9-2) Blood Type Antibody Screen Crossmatch 11/02/22 Range/Units 05:04 WBC (4.8-10.8) K/ul RBC (4.70-6.10) M/uL Hgb (14.0-18.0) g/dl Hct (42.0-52.0) % MCV (80.0-100.0) fL MCH (25.0-34.0) pg MCHC (32.0-36.0) g/dL RDW Std Deviation (36.4-46.3) fL RDW Coeff of Chaka (11.5-14.5) % Plt Count (130-400) K/uL MPV (9.4-12.4) fL Immature Gran % (Auto) % Neut % (Auto) % Lymph % (Auto) % [place] % (Auto) % Eos % (Auto) % Baso % (Auto) % Neut # (Auto) (1.40-6.50) K/uL Lymph # (Auto) (1.2-3.4) K/uL [place] # (Auto) (0.11-0.59) K/uL Eos # (Auto) (0-0.50) K/uL Baso # (Auto) (0-0.2) K/uL Immature Gran # (Auto) (0.01-0.20) K/uL Polychromasia Poikilocytosis Anisocytosis Sodium (136-145) mmol/L Potassium (3.5-5.1) mmol/L Chloride (98-107) mmol/L Carbon Dioxide (21-32) mmol/L Anion Gap (3-11) BUN (6-23) mg/dl Creatinine (0.6-1.4) mg/dl Est Cr Clr Drug Dosing ml/min Est GFR ( Amer) ml/min Est GFR (Non-Af Amer) ml/min BUN/Creatinine Ratio (10-20) Glucose (70-99(Fasting)) mg/dl POC Glucose (70-99) mg/dl Calcium (8.6-10.3) mg/dl Total Bilirubin (0.2-1.0) mg/dl AST (13-39) U/L ALT (7-52) U/L Alkaline Phosphatase (34-104) U/L Total Protein (6.0-8.3) gm/dl Albumin (3.4-5.0) gm/dl Globulin (2.5-4.0) gm/dl Albumin/Globulin Ratio (0.9-2) Blood Type A Positive Antibody Screen NEGATIVE Crossmatch See Detail
[2022-11-03] MEDS: traMADol HCL 50 MG TABLET PO PRN (15:47)
--- NOTE | 2022-11-03 15:47 | Hospitalist Progress Note ---
Date of Service November 03, 2022 Assessment & Plan (1) Hypertensive crisis: Plan: Hypertensive urgency Situational secondary to pain Continue Amlodipine, Metoprolol Monitor BP, adjust meds as needed Suspected Acute cholecystitis RUQ Abdominal Pain Transaminitis --CT ABD:Mild stranding surrounding the gallbladder, cannot exclude acute cholecystitis. Recommend follow-up with right upper quadrant ultrasound. 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 Diverticulosis with no signs of diverticulitis. No acute appendicitis or bowel obstruction. --Gall Bladder USD:Findings suspicious for acute cholecystitis. Surgical consultation recommended. A 4.1 x 3.4 cm proximal abdominal aortic aneurysm. --HIDA:Minimal radiotracer within the gallbladder. Therefore, this study is technically negative for acute or chronic cholecystitis. However, given minimal radiotracer within the gallbladder, a false negative HIDA cannot be completely excluded. Short-term follow-up CT of the abdomen might be considered if persistent suspicion for acute cholecystitis. Delayed visualization of small bowel activity. This is a nonspecific finding which can be seen in the setting of sphincter spasm/dysfunction or partial common bile duct obstruction. --MRCP:Suboptimal evaluation due to the motion artifact. There is trace pericholecystic fluid. This is nonspecific and could be due to an acute cholecystitis, underlying hepatic pathology, or a diffuse edematous state. The patient's known gallstones are not well visualized due to the motion artifact. The common bile duct is normal in caliber measuring 6 mm. No definite filling defects within the common bile duct. Aneurysmal dilatation of the descending thoracic aorta and proximal abdominal aorta as described above. -- Consider to obtain blood cultures if patient develops any signs of SIRS --Continue Zosyn Received gentle IV fluids Appreciate GI, surgery input Monitor LFTs Currently no plan for cholecystectomy given multiple comorbidities as per surgery Plan for endoscopic ultrasound, ERCP tomorrow Strokelike symptoms --CT head:No acute intracranial findings. No change in appearance of the brain. Multiple old infarcts. 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 These findings are new from 2009. Follow-up with vascular surgery is advised. 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 surgery as per records Continue Metoprolol Hyperlipidemia on statin H/O Waldenstrom macroglobulinemia Past tobacco abuse As per records CKD III Cr at baseline Monitor renal function DVT Px: SCDs Re: GI bleed Code Status Full code Admission and Anticipated Discharge Date Admission Date: November 02, 2022 Subjective Patient is seen and examined at bedside Reported transient right-sided vision change this morning to RN Patient was anxious, concern for possible CVA Reports chronic dyspnea Abdominal pain less when compared to yesterday Tolerating liquid diet No recurrence of melena since hospitalization Discussed with GI, surgery today Also discussed with patient's daughter over the phone Denies any chest pain, dizziness, nausea, vomiting Review of Systems Review of Systems: All systems reviewed & are unremarkable except as noted in Subjective Physical Exam Physical Exam: Physical Exam: Vitals signs as noted above General Appearance:Obese, no apparent distress Head: normocephalic, Atraumatic Eyes: normal inspection, EOMI Neck: supple, Trachea midline Respiratory/Chest: Decreased breath sounds, expiratory wheezes, No accessory muscle use Cardiovascular: S1, S2, + murmur Abdomen/GI:Soft, RUQ tender, Bowel sounds present Extremities/Musculoskeletal:normal inspection, 2+ B/L LE edema Neurologic/Psych:AAOX3, grossly no focal neurological deficits Skin: normal color, warm Results & Data Results & Data Vital Signs (Past 12 Hours) Vital Signs Temp Pulse Pulse Resp BP Pulse Ox Pulse Ox 11/03/22 13:33 76 20 95 11/03/22 12:03 36.6 C 75 18 160/89 H 92 11/03/22 10:53 58 L 11/03/22 10:30 11/03/22 08:55 95 11/03/22 08:16 62 16 95 11/03/22 07:28 36.4 C L 67 18 187/92 H 97 O2 Del Method O2 Del Method O2 Flow Rate O2 Flow Rate 11/03/22 13:33 Nasal Cannula 1 11/03/22 12:03 Nasal Cannula 2 11/03/22 10:53 11/03/22 10:30 Nasal Cannula 2 11/03/22 08:55 Nasal Cannula 2 11/03/22 08:16 Nasal Cannula 1 11/03/22 07:28 Room Air Laboratory Results Short CBC 11/02/22 11/02/22 11/03/22 Range/Units 16:14 20:42 03:15 WBC 8.36 (4.8-10.8) K/ul Hgb 8.6 L 7.9 L 8.8 L (14.0-18.0) g/dl Hct 28.4 L 25.8 L 28.5 L (42.0-52.0) % Plt Count 194 (130-400) K/uL BMP 11/03/22 03:15 Sodium 136 Potassium 3.8 Chloride 103 Carbon Dioxide 25 BUN 20 Creatinine 2.13 H Glucose 105 H Calcium 8.3 L Liver Function 11/03/22 Range/Units 03:15 Total Bilirubin 1.7 H D (0.2-1.0) mg/dl AST 135 H (13-39) U/L ALT 130 H (7-52) U/L Alkaline Phosphatase 152 H (34-104) U/L Albumin 3.4 (3.4-5.0) gm/dl
[2022-11-03] MEDS: ATORVASTATIN 40 MG TAB PO SCH (21:09)
[2022-11-04] MEDS: ALBUT/IPRATROP 3MG/0.5MG NEB 3 ML VIAL NEB PRN ×3 (01:39→11:02)
[2022-11-04] MEDS ORDERED: FUROSEMIDE INJ 20 MG/2 ML VIAL IV ONE (06:10)
[2022-11-04 06:56] LABS: Hematocrit (blood only) 32.4 % (42.0-52.0); Mean Corpuscular Hemoglobin 30.3 pg (25.0-34.0); Mean Corpuscular Hgb Conc 30.9 g/dL (32.0-36.0); Mean Corpuscular Volume 98.2 fL (80.0-100.0); Mean Platelet Volume 10.4 fL (9.4-12.4); Platelet Count 204 K/uL (130-400); RDW Coefficient of Variation 20.2 % (11.5-14.5); RDW Standard Deviation 73.5 fL (36.4-46.3); White Blood Count 9.42 K/ul (4.8-10.8)
[2022-11-04 07:12] LABS: Albumin Globulin Ratio 1.2 (0.9-2); Albumin Level 3.7 gm/dl (3.4-5.0); BUN Creatinine Ratio 8.2 (10-20); Bilirubin,Total 1.1 mg/dl (0.2-1.0); Calcium 8.9 mg/dl (8.6-10.3); Creatinine Clr Calc Pharmacy 32.4 ml/min; Est GFR (African American) 35.5 ml/min; Est GFR (Non-African American) 30.6 ml/min; Globulin 3.1 gm/dl (2.5-4.0); Magnesium 1.9 mg/dl (1.7-2.4); Potassium 3.7 mmol/L (3.5-5.1); Total Protein 6.8 gm/dl (6.0-8.3)
[2022-11-04] MEDS: UMECLIDINIUM/VILANTEROL 62.5/25MCG 7 PUFFS/INHALER INH SCH (08:37)
[2022-11-04] MEDS: METOPROLOL TARTRATE 25 MG TAB PO SCH ×2 (08:38→21:16)
[2022-11-04] MEDS: amLODIPine BESYLATE 5 MG TAB PO SCH (08:39)
[2022-11-04] MEDS: EZETIMIBE 10 MG TABLET PO SCH (08:40)
[2022-11-04] MEDS: allopurinoL 300 MG TAB PO SCH (08:40)
[2022-11-04] MEDS: FLUTICASONE PROPIONATE NA SPR 16 GM BTL SCH (08:41)
[2022-11-04] MEDS: PANTOprazole 40 MG in SYRINGE 0 ML IV SCH ×2 (08:41→21:16)
[2022-11-04] MEDS ORDERED: amLODIPine BESYLATE 5 MG TAB PO ONE (09:39)
--- NOTE | 2022-11-04 09:47 | Gastroenterology Progress Note ---
Date of Service November 04, 2022 Assessment & Plan (1) Acute cholecystitis: Plan: 72 year old male with history ofchronic respiratory failure secondary to COPD on home O2, GINNY/nocturnal hypoxemia on CPAP, history PSVT, valvular heart disease (severe , mild AR), history TAA, AAA status post surgery, hx recurrent CVA (hx shaggy aorta syndrome) on Eliquis and Plavix, hypertension, hyperlipidemia, CRI (baseline creatinine 2s), GERD, chronic anemia (hemoglobin of 8), Waldenstrom macroglobulinemia, past tobacco abuse admitted w/ pain, nausea/vomiting and chronic dark stools - acute cholecystitis, elevated LFTs NPO for EUS/ERCP today Continue to hold AC No evidence of acute gi bleeding Trend H&H Monitor and document GI output PO PPI BID Transfuse PRN Appreciate general surgery evaluation We appreciate assistance in the management of any serological abnormality and corrections to include: hemoglobin >7, INR <2, platelets >50,000, potassium levels >3.5 but <5.3, and sodium levels within 5 points of the reference range prior to endoscopic evaluation. Thank you for allowing us to participate in the care of this patient. Please call with any acute changes, questions or concerns. Please see addendum below with additional recommendation from my supervising physician. Admission and Anticipated Discharge Date Admission Date: November 02, 2022 Supervising Physician Co-Signing Physician Notes EUS/ERCP Patient was explained in detail regarding risks, benefits, limitations and alternatives of the above endoscopic procedure. Risks of intravenous sedation used for procedure were also explained. Risks include, but not limited to perforation, bleeding, infection, respiratory distress, cardiac arrest and . Patient is also aware about the possibility of missed lesion. Patient's questions were answered. The patient verbalized understanding the information and agreed to undergo the procedure. Subjective Remains NPO for EUS/ERCP Notes he has intermittent RUQ pain. No nausea, vomiting. No family at bedside. Review of Systems Review of Systems: All systems reviewed & are unremarkable except as noted in HPI & below Physical Exam Constitutional: WD/WN, vitals as above Respiratory: normal respiratory effort, lungs clear to auscultation Cardiovascular: Rate/Rhythm: regular rate and regular rhythm Gastrointestinal (Abdomen): Inspection/Auscultation: normal bowel sounds Percussion/Palpation: + abdomen tender and abdomen soft Skin: no rashes, warm and dry Results & Data Vital Signs (Past 12 Hours) Vital Signs Temp Pulse Pulse Resp BP BP Pulse Ox 11/04/22 07:17 36.8 C 88 24 182/76 H 193/92 H 94 11/04/22 06:05 71 22 96 11/04/22 02:35 36.8 C 76 18 156/77 H 98 11/04/22 02:27 16 11/04/22 02:26 73 11/04/22 01:39 69 20 97 11/03/22 23:26 36.9 C 67 18 156/83 H 94 O2 Del Method O2 Flow Rate 11/04/22 07:17 CPAP 2 11/04/22 06:05 CPAP 2 11/04/22 02:35 CPAP 11/04/22 02:27 2 11/04/22 02:26 11/04/22 01:39 CPAP 2 11/03/22 23:26 Nasal CPAP
--- NOTE | 2022-11-04 10:31 | Surgery Progress Note ---
Date of Service November 04, 2022 Assessment & Plan (1) Acute cholecystitis: Plan: Patient scheduled for an EUS/ERCP with GI today We will follow-up these results, the cystic duct is patent he can likely be treated without any further intervention If cystic duct is occluded and unable to be stented by GI, he would likely need percutaneous cholecystostomy tube at a tertiary care center No plans for any surgical intervention as he is extremely high risk We will continue to follow along (2) Aortic stenosis: (3) Recurrent cerebrovascular accidents (CVAs): Admission and Anticipated Discharge Date Admission Date: November 02, 2022 Subjective Patient seen and examined. Still has right upper quadrant abdominal pain, but improved. Afebrile. No nausea or vomiting. Review of Systems Constitutional: no fever and no chills Physical Exam Constitutional: WD/WN, vitals as above Gastrointestinal (Abdomen): Inspection/Auscultation: abdomen normal to inspection; abdomen not distended Percussion/Palpation: + abdomen tender (Right upper quadrant), + guarding and abdomen soft; abdomen not rigid and no hernia Results & Data Vital Signs (Past 12 Hours) Vital Signs Temp Pulse Pulse Resp BP BP Pulse Ox 11/04/22 07:17 36.8 C 88 24 182/76 H 193/92 H 94 11/04/22 06:05 71 22 96 11/04/22 02:35 36.8 C 76 18 156/77 H 98 11/04/22 02:27 16 11/04/22 02:26 73 11/04/22 01:39 69 20 97 11/03/22 23:26 36.9 C 67 18 156/83 H 94 O2 Del Method O2 Flow Rate 11/04/22 07:17 CPAP 2 11/04/22 06:05 CPAP 2 11/04/22 02:35 CPAP 11/04/22 02:27 2 11/04/22 02:26 11/04/22 01:39 CPAP 2 11/03/22 23:26 Nasal CPAP PG Care Time/CCT Total # of Minutes Spent Total Time Spent with Patient: Total time spent is greater than 50% in coordination of care (as documented) at patient's floor/unit and/or counseling patient: Coding Level of Care Code 86112 SUB INP/OBS CARE 05/12MIN Diagnoses Acute cholecystitis K81.0 Aortic stenosis I35.0 Recurrent cerebrovascular accidents (CVAs) I63.9
--- NOTE | 2022-11-04 11:30 | Hospitalist Progress Note ---
Date of Service November 04, 2022 Assessment & Plan (1) Hypertensive crisis: Plan: Hypertensive urgency Situational secondary to pain Continue Amlodipine, Metoprolol Monitor BP, adjust meds as needed Suspected Acute cholecystitis RUQ Abdominal Pain Transaminitis --CT ABD:Mild stranding surrounding the gallbladder, cannot exclude acute cholecystitis. Recommend follow-up with right upper quadrant ultrasound. 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 Diverticulosis with no signs of diverticulitis. No acute appendicitis or bowel obstruction. --Gall Bladder USD:Findings suspicious for acute cholecystitis. Surgical consultation recommended. A 4.1 x 3.4 cm proximal abdominal aortic aneurysm. --HIDA:Minimal radiotracer within the gallbladder. Therefore, this study is technically negative for acute or chronic cholecystitis. However, given minimal radiotracer within the gallbladder, a false negative HIDA cannot be completely excluded. Short-term follow-up CT of the abdomen might be considered if persistent suspicion for acute cholecystitis. Delayed visualization of small bowel activity. This is a nonspecific finding which can be seen in the setting of sphincter spasm/dysfunction or partial common bile duct obstruction. --MRCP:Suboptimal evaluation due to the motion artifact. There is trace pericholecystic fluid. This is nonspecific and could be due to an acute cholecystitis, underlying hepatic pathology, or a diffuse edematous state. The patient's known gallstones are not well visualized due to the motion artifact. The common bile duct is normal in caliber measuring 6 mm. No definite filling defects within the common bile duct. Aneurysmal dilatation of the descending thoracic aorta and proximal abdominal aorta as described above. -- Consider to obtain blood cultures if patient develops any signs of SIRS --Continue Zosyn Received gentle IV fluids Appreciate GI, surgery input Monitor LFTs Currently no plan for cholecystectomy given multiple comorbidities as per surgery Plan for endoscopic ultrasound, ERCP today--pending Further management based on EUS/ERCP results Strokelike symptoms --CT head:No acute intracranial findings. No change in appearance of the brain. Multiple old infarcts. 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 These findings are new from 2009. Follow-up with vascular surgery is advised. 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 Eliquis and Plavix held due to possible need for procedure Continue Lipitor, Zetia Chronic respiratory failure secondary to COPD On 2L supplemental Oxygen at baseline GINNY/nocturnal hypoxemia Continue Supplemental oxygen and CPAP HS H/O PSVT Valvular heart disease (severe , mild AR) Was planned to be evaluated by [facility] CT surgery as per records Continue Metoprolol Hyperlipidemia on statin H/O Waldenstrom macroglobulinemia Past tobacco abuse As per records CKD III Cr at baseline Monitor renal function DVT Px: SCDs Re: GI bleed Code Status Full code Admission and Anticipated Discharge Date Admission Date: November 02, 2022 Subjective Patient is seen and examined at bedside States feeling a better today Vision seems to be back to baseline Denies any significant abdominal pain today Plan for endoscopic ultrasound/ERCP today Chronic dyspnea unchanged from yesterday Denies any chest pain, dizziness, nausea, vomiting Review of Systems Review of Systems: All systems reviewed & are unremarkable except as noted in Subjective Physical Exam Physical Exam: Physical Exam: Vitals signs as noted above General Appearance:Obese, no apparent distress Head: normocephalic, Atraumatic Eyes: normal inspection, EOMI Neck: supple, Trachea midline Respiratory/Chest: Decreased breath sounds, expiratory wheezes, No accessory muscle use Cardiovascular: S1, S2, + murmur Abdomen/GI:Soft, mild RUQ tender, Bowel sounds present Extremities/Musculoskeletal:normal inspection, 2+ B/L LE edema Neurologic/Psych:AAOX3, grossly no focal neurological deficits Skin: normal color, warm Results & Data Results & Data Vital Signs (Past 12 Hours) Vital Signs Temp Pulse Pulse Resp BP BP Pulse Ox 11/04/22 11:19 37.1 C 75 22 123/70 92 11/04/22 11:02 79 18 92 11/04/22 10:36 133/71 11/04/22 07:17 36.8 C 88 24 182/76 H 193/92 H 94 11/04/22 06:05 71 22 96 11/04/22 02:35 36.8 C 76 18 156/77 H 98 11/04/22 02:27 16 11/04/22 02:26 73 11/04/22 01:39 69 20 97 O2 Del Method O2 Flow Rate 11/04/22 11:19 Nasal Cannula 2 11/04/22 11:02 Room Air 11/04/22 10:36 11/04/22 07:17 CPAP 2 11/04/22 06:05 CPAP 2 11/04/22 02:35 CPAP 11/04/22 02:27 2 11/04/22 02:26 11/04/22 01:39 CPAP 2 Laboratory Results Short CBC 11/04/22 Range/Units 06:26 WBC 9.42 (4.8-10.8) K/ul Hgb 10.0 L (14.0-18.0) g/dl Hct 32.4 L (42.0-52.0) % Plt Count 204 (130-400) K/uL BMP 11/04/22 06:26 Sodium 137 Potassium 3.7 Chloride 103 Carbon Dioxide 26 BUN 17 Creatinine 2.07 H Glucose 108 H Calcium 8.9 Liver Function 11/04/22 Range/Units 06:26 Total Bilirubin 1.1 H (0.2-1.0) mg/dl AST 54 H (13-39) U/L ALT 92 H (7-52) U/L Alkaline Phosphatase 143 H (34-104) U/L Albumin 3.7 (3.4-5.0) gm/dl
[2022-11-04] MEDS: PIPERACILLIN/TAZOBACTAM 4.5 GM in DEXTROSE 5% 100 ML IV SCH ×2 (11:51→18:30)
--- NOTE | 2022-11-04 11:57 | Anesthesiology Consultation ---
Date of Service November 04, 2022 Assessment & Plan Chart Review Chart Review: entry level buyer initiated History Surgery Operation Date: 11/04/22 07:55 Proposed Procedures p Endoscopic Retrograde Cholangiopancreatogram - Lacie England MD s Endoscopic Ultrasonography Upper - Lacie England MD Height/Weight Height: 5 ft 6 in Weight: 87 kg Allergies Allergy/AdvReac Type Severity Reaction Status Date / Time RUBENS Inhibitors AdvReac Intermediate DROPS Verified 11/02/22 01:45 BLOOD PRESSURE lisinopril AdvReac Intermediate DROPS Verified 11/02/22 01:45 BLOOD PRESSURE Medications Home Medications Medication Instructions Recorded Confirmed Last Taken atorvastatin 80 mg tablet 80 mg PO QPM 03/25/19 11/02/22 03/02/22 clopidogrel 75 mg tablet 75 mg PO QAM 03/25/19 11/02/22 03/02/22 fluticasone propionate 50 2 spray intranasal DAILY 03/25/19 11/02/22 03/02/22 mcg/actuation nasal spray,suspension cholecalciferol (vitamin D3) 50 2,000 unit PO QAM 06/10/20 11/02/22 03/02/22 mcg (2,000 unit) capsule (D3-2000) amlodipine 2.5 mg tablet 2.5 mg PO QAM 12/30/20 11/02/22 03/02/22 iron,carbonyl 65 mg-vitamin C 125 1 tab PO QAM 12/30/20 11/02/22 11/01/22 mg tablet,delayed release (Vitron-C) albuterol sulfate 90 mcg/actuation 2 puff inhalation Q4 PRN Wheezing 10/31/21 11/02/22 03/02/22 aerosol inhaler allopurinol 300 mg tablet 150 mg PO QAM 10/31/21 11/02/22 03/02/22 metoprolol tartrate 25 mg tablet 12.5 mg PO BID 10/31/21 11/02/22 03/02/22 pantoprazole 40 mg tablet,delayed 40 mg PO QAM 02/25/22 11/02/22 03/02/22 release ezetimibe 10 mg tablet 10 mg PO QAM 08/04/22 11/02/22 Unknown Oxygen Home #1 ea 08/09/22 10/14/22 Unknown apixaban 5 mg tablet 5 mg PO BID 10/11/22 11/02/22 Unknown docusate sodium 100 mg capsule 100 mg PO BID PRN Constipation 10/11/22 11/02/22 Unknown ipratropium 0.5 mg-albuterol 3 mg 3 ml inhalation Q6H PRN Shortness 10/14/22 11/02/22 Unknown (2.5 mg base)/3 mL nebulization Of Breath soln umeclidinium 62.5 mcg-vilanterol 1 inh inhalation DAILY 11/02/22 11/02/22 Unknown 25 mcg/actuation powdr for inhalation (Anoro Ellipta) Active Medications Generic Name Dose Route Start Last Admin Trade Name Freq PRN Reason Stop Dose Admin Acetaminophen 650 mg 11/02/22 11:06 11/03/22 00:53 Acetaminophen 325 Mg Tab PO 12/02/22 11:05 650 mg Q4H PRN Administration Pain or Fever Albuterol 3 ml 11/02/22 06:54 11/04/22 11:02 Albut/Ipratrop 3mg/0.5mg Neb 3 Ml Vial NEB 12/02/22 06:53 3 ml Q2H PRN Administration Wheezing Protocol Allopurinol 150 mg 11/02/22 09:00 11/04/22 08:40 Allopurinol 300 Mg Tab PO 12/02/22 08:59 150 mg QAM MOLINA Administration Atorvastatin Calcium 80 mg 11/02/22 21:00 11/03/22 21:09 Atorvastatin 40 Mg Tab PO 12/02/22 20:59 80 mg QPM MOLINA Administration Ezetimibe 10 mg 11/02/22 09:00 11/04/22 08:40 Ezetimibe 10 Mg Tablet PO 12/02/22 08:59 10 mg QAM MOLINA Administration Fluticasone Propionate 2 sprays 11/02/22 09:00 11/04/22 08:41 Fluticasone Propionate Na Spr 16 Gm Btl NA 12/02/22 08:59 2 sprays DAILY MOLINA Administration Hydromorphone HCl 0.25 mg 11/02/22 05:53 11/02/22 09:00 Hydromorphone Inj 0.5 Mg/0.5 Ml Syr IV 11/16/22 05:52 0.25 mg Q6H PRN Administration Pain Piperacillin Sod/Tazobactam 120 mls @ 30 mls/hr 11/02/22 12:00 11/04/22 11:51 Sod 4.5 gm/ Dextrose IV 11/12/22 11:59 30 mls/hr Q8H MOLINA Administration Protocol Pantoprazole Sodium 40 mg/ 10 mls @ 5 mls/min 11/02/22 21:00 11/04/22 08:41 Syringe IV 12/02/22 20:59 5 mls/min BID MOLINA Administration Metoprolol Tartrate 12.5 mg 11/02/22 09:00 11/04/22 08:38 Metoprolol Tartrate 25 Mg Tab PO 12/02/22 08:59 12.5 mg BID MOLINA Administration Tramadol HCl 25 - 50 mg 11/02/22 05:53 11/03/22 15:47 Tramadol Hcl 50 Mg Tablet PO 12/02/22 05:52 50 mg Q4H PRN Administration Pain Umeclidinium/Vilanterol 1 puffs 11/02/22 09:00 11/04/22 08:37 Umeclidinium/Vilanterol 62.5/25mcg 7 Puffs/Inhaler INH 12/02/22 08:59 1 puf fs DAILY MOLINA Administration Past Medical History Medical History Aneurysm CT chest w/o contrast 06/25/22 - 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 Ascending thoracic aorta at the level of the right pulmonary artery 4.2 cm unchanged. 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 Descending thoracic aorta at the level of the left atrium again up to 4.7 cm. Aortic stenosis Thoracic aortic atherosclerosis, densely calcified coronary arteries, severely calcified aortic valve, aneurysmal outpouching of the aortic arch. CKD (chronic kidney disease), stage III follows with [facility] nephrology Gastric ulcer Hearing deficit BL NAILS History of GI bleed Hx of gout Hx SBO Hyperlipidemia Hypertension ANDREW (iron deficiency anemia) Obesity Paroxysmal ventricular tachycardia 19 beat run of ventricular tachycardia via Zio monitoring PFO (patent foramen ovale) per records. follows with Dr. 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 TO HAVE SLIGHT BALANCE ISSUES Past Family History Family History Other AAA (abdominal aortic aneurysm) Hypertension No family history of adverse response to anesthesia Past Surgical History Surgical History History of esophagogastroduodenoscopy (EGD) History of lumbar surgery 1999 History of tonsillectomy History of tonsillectomy and adenoidectomy History of tooth extraction Hx of colonoscopy Hx of hernia repair lysis of adhesions, incisional hernia repair laparoscopically 01/28/2010 at [facility] - Dr Desouza S/P AAA repair 01/13/2009 - Dr Suazo ([facility] AT [facility]) Social History Smoking Status: Former smoker tobacco type: cigarettes Smoking cigarettes per day: Former cigarette. Quit 1998 Do You Dip or Chew Tobacco: No Smoking End Date: 1998 Hx Alcohol Use: Yes Alcohol type: beer alcohol intake frequency: holidays/special occasions only Alcohol Intake Frequency Comment: 2 MONTHS AGO LAST DRINK Hx Substance Use: No substance use type: does not use Physical Exam Vital Signs Last Vital Signs Temp 98.8 F 11/04/22 11:19 Pulse 75 11/04/22 11:19 Resp 22 11/04/22 11:19 BP 123/70 11/04/22 11:19 Pulse Ox 92 11/04/22 11:19 O2 Del Method Nasal Cannula 11/04/22 11:19 O2 Flow Rate 2 11/04/22 11:19 Testing Laboratory Results 11/04/22 06:26 11/04/22 06:26 APTT 26.4 Seconds (21.0-31.0) 11/02/22 01:00 Hemoglobin A1c 4.2 % (4.5-5.6) L 11/02/22 05:04 Urine Color Yellow 11/02/22 01:00 Urine Appearance Clear (Clear) 11/02/22 01:00 Urine pH 6.0 (4.5-7.5) 11/02/22 01:00 Ur Specific Colbert 1.012 (1.000-1.030) 11/02/22 01:00 Urine Protein 2+ (Negative) H 11/02/22 01:00 Urine Glucose (UA) Negative (Negative) 11/02/22 01:00 Urine Ketones Negative (Negative) 11/02/22 01:00 Urine Nitrite Negative (Negative) 11/02/22 01:00 Ur Leukocyte Esterase Negative (Negative) 11/02/22 01:00 Urine WBC (Auto) 1-5 /hpf (0-5) 11/02/22 01:00 Urine RBC (Auto) 0-4 /hpf (0-4) 11/02/22 01:00 U Hyaline Cast (Auto) 0 /lpf (0-5) 11/02/22 01:00 U Epithel Cells (Auto) 0-5 /lpf (0-5) 11/02/22 01:00 Urine Bacteria (Auto) Negative (Negative) 11/02/22 01:00 Blood Type A Positive 11/02/22 05:04 Antibody Screen NEGATIVE 11/02/22 05:04 Electrocardiogram Date: 11/02/22 Sinus rhythm with 1st degree A-V block, rate 70 bpm Otherwise normal ECG When compared with ECG of 14-OCT-2022 20:38, IA interval has increased Confirmed by Aaron Dunbar ([id number]) on 11/02/2022 3:19:23 PM Chest X-Ray Date: 11/02/22 FINDINGS: No pneumothorax. No pleural effusions. The cardiac silhouette remains mildly enlarged. There is a tortuous thoracic aorta, unchanged. A few bibasilar linear densities consistent with subsegmental atelectasis. Left-sided calcified pleural plaque again noted. No new focal lung consolidations identified. No evidence for pulmonary edema. IMPRESSION: No significant change compared to the prior study. No acute process. Echocardiogram Date: 08/04/22 EF 60-65% Mild concentric LVH AV is trileaflet AV is moderately calcified Mod to borderline severe AV stenosis Mild AR The aortic root is normal size Ascending aorta not well visualized
[2022-11-04] MEDS ORDERED: PROPOFOL IV EMULSION 10 MG/ML 20 ML VIAL IV ONE (12:13)
[2022-11-04] MEDS ORDERED: SUCCINYLCHOLINE CHLORIDE 20 MG/ML 10 ML VIAL IV ONE (12:13)
[2022-11-04] MEDS ORDERED: ONDANSETRON INJ 2 MG/ML 2 ML VIAL ONE (12:13)
[2022-11-04] MEDS ORDERED: LIDOCAINE 2% 2 ML VIAL/AMP(20MG/ML) INFIL ONE (12:13)
[2022-11-04] MEDS ORDERED: fentaNYL citrate PF 100 MCG/2 ML VIAL ONE (12:13)
[2022-11-04] MEDS ORDERED: ATROPINE SULFATE 0.1 MG/ML 10ML SYR IV PRN (13:40)
[2022-11-04] MEDS ORDERED: fentaNYL citrate PF 100 MCG/2 ML VIAL IV PRN (13:40)
[2022-11-04] MEDS ORDERED: ePHEDrine sulfate 50 MG/ML AMP IV PRN (13:40)
[2022-11-04] MEDS ORDERED: ONDANSETRON INJ 2 MG/ML 2 ML VIAL IV PRN (13:40)
[2022-11-04] MEDS ORDERED: ROCURONIUM BROMIDE 10 MG/ML 5 ML VIAL IV ONE (15:06)
[2022-11-04] MEDS ORDERED: METOPROLOL TARTRATE 1 MG/ML VIAL IV ONE (15:27)
--- NOTE | 2022-11-04 15:29 | Operative Report ---
Post Operative Report Pre & Post Diagnosis Operation Date: 11/04/22 07:55 Pre-Op Diagnosis: HTN CRISIS, UGIB Post-Op Diagnosis: AVM I identified the patient and participated in the time-out.: Yes Procedure Operation Date: 11/04/22 07:55 Actual Procedures p Esophagogastroduodenoscopy - Lacie England MD s Endoscopic Ultrasonography Upper - Lacie England MD p Endoscopic Retrograde Cholangiopancreato - Lacie England MD Surgeon Lacie England MD Market Asset Protection Manager None Estimated Blood Loss 0 Findings See Below (CBD/cystic duct stones removed, stents placed) Specimens None Description of Procedure EGD/EUS/ERCP I attest to the content of the Intraoperative Record and any orders documented therein. Any exceptions are noted below.
--- NOTE | 2022-11-04 15:38 | GI REPORT ---
Patient Name: Mikhail Fung Procedure Date: 11/04/2022 2:02 PM Date of : 1950 Admit Type: Inpatient Age: 72 Gender: Male Attending MD: Lacie England MD, Procedure: Upper GI endoscopy Providers: Lacie England MD Referring MD: Lonny Rader Md Indications: Iron deficiency anemia Medicines: General Anesthesia Complications: No immediate complications. Estimated Blood Loss: Estimated blood loss: none. Procedure: Pre-Anesthesia Assessment: - Prior to the procedure, a History and Physical was performed, and patient medications, allergies and sensitivities were reviewed. The patient's tolerance of previous anesthesia was reviewed. - The risks and benefits of the procedure and the sedation options and risks were discussed with the patient. All questions were answered and informed consent was obtained. - Patient identification and proposed procedure were verified prior to the procedure by the physician and the nurse. The procedure was verified in the procedure room. - Pre-procedure physical examination revealed no contraindications to sedation. After obtaining informed consent, the endoscope was passed under direct vision. Throughout the procedure, the patient's blood pressure, pulse, and oxygen saturations were monitored continuously. The Endoscope was introduced through the mouth, and advanced to the second part of duodenum. The upper GI endoscopy was accomplished without difficulty. The patient tolerated the procedure well. Findings: The examined esophagus was normal. Five angioectasias with no bleeding were found in the stomach. Vaporization for hemostasis using argon plasma was successful. For hemostasis, ten hemostatic clips were successfully placed (MR conditional). Clip relationship executive: [id number]. The duodenal bulb and second portion of the duodenum were normal. Impression: - Normal esophagus. 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 Treated with argon plasma coagulation (APC). Clips (MR conditional) were placed. . - Normal duodenal bulb and second portion of the duodenum. - No specimens collected. Recommendation: - Perform an upper endoscopic ultrasound (UEUS) today. Lacie England MD 11/04/2022 3:37:45 PM This report has been signed electronically. Note Initiated On: 11/04/2022 2:02 PM Number of Addenda: 0 I attest to the content of the Intraoperative Record and orders documented therein, exceptions below {[id number]}
[2022-11-04] MEDS ORDERED: hydrALAZINE HCL 20 MG/ML VIAL ONE (15:39)
--- NOTE | 2022-11-04 15:42 | GI REPORT ---
Patient Name: Mikhail Fung Procedure Date: 11/04/2022 3:37 PM Date of : 1950 Admit Type: Inpatient Age: 72 Gender: Male Attending MD: Lacie England MD, Procedure: Upper EUS Providers: Lacie England MD Referring MD: Lonny Rader Md Indications: Elevated liver enzymes, Suspected choledocholithiasis Medicines: General Anesthesia Complications: No immediate complications. Estimated Blood Loss: Estimated blood loss: none. Procedure: Pre-Anesthesia Assessment: - Prior to the procedure, a History and Physical was performed, and patient medications, allergies and sensitivities were reviewed. The patient's tolerance of previous anesthesia was reviewed. - The risks and benefits of the procedure and the sedation options and risks were discussed with the patient. All questions were answered and informed consent was obtained. - Patient identification and proposed procedure were verified prior to the procedure by the physician and the nurse. The procedure was verified in the procedure room. - Pre-procedure physical examination revealed no contraindications to sedation. After obtaining informed consent, the endoscope was passed under direct vision. Throughout the procedure, the patient's blood pressure, pulse, and oxygen saturations were monitored continuously. The Loaner was introduced through the mouth, and advanced to the second part of duodenum. The upper EUS was accomplished without difficulty. The patient tolerated the procedure well. Findings: ENDOSONOGRAPHIC FINDING: : There was no sign of significant endosonographic abnormality in the ampulla. There was dilation in the common bile duct which measured up to 9 mm. One stone was visualized endosonographically in the common bile duct. It was hyperechoic. Multiple stones were visualized endosonographically in the gallbladder. They were hyperechoic and characterized by shadowing. There was no sign of significant endosonographic abnormality in the visualized portion of the liver. Homogeneous parenchyma was identified. There was no sign of significant endosonographic abnormality in the entire pancreas. The pancreatic duct measured up to 2 mm in diameter. There was no sign of significant endosonographic abnormality in the left adrenal gland. There was no sign of significant endosonographic abnormality involving the celiac trunk. Impression: - There was no sign of significant pathology in the ampulla. - There was dilation in the common bile duct which measured up to 9 mm. - One stone was visualized endosonographically in the common bile duct. - Multiple stones were visualized endosonographically in the gallbladder. - There was no evidence of significant pathology in the visualized portion of the liver. - There was no sign of significant pathology in the entire pancreas. - Endosonographic images of the left adrenal gland were unremarkable. - The celiac trunk was endosonographically normal. Recommendation: - Perform an ERCP. Lacie England MD 11/04/2022 3:41:00 PM Note Initiated On: 11/04/2022 3:37 PM Number of Addenda: 0 I attest to the content of the Intraoperative Record and orders documented therein, exceptions below {[id number]}
[2022-11-04] MEDS ORDERED: SUGAMMADEX SODIUM 200 MG/2 ML VIAL IV ONE (15:43)
--- NOTE | 2022-11-04 15:50 | GI REPORT ---
Patient Name: Mikhail Fung Procedure Date: 11/04/2022 2:40 PM Date of : 1950 Admit Type: Inpatient Age: 72 Gender: Male Attending MD: Lacie England MD, Procedure: ERCP Providers: Lacie England MD Referring MD: Lonny Rader Md Indications: For therapy of bile duct stone(s) Medicines: General Anesthesia Complications: No immediate complications. Estimated Blood Loss: Estimated blood loss: none. Procedure: Pre-Anesthesia Assessment: - Prior to the procedure, a History and Physical was performed, and patient medications, allergies and sensitivities were reviewed. The patient's tolerance of previous anesthesia was reviewed. - The risks and benefits of the procedure and the sedation options and risks were discussed with the patient. All questions were answered and informed consent was obtained. - Patient identification and proposed procedure were verified prior to the procedure by the physician and the nurse. The procedure was verified in the procedure room. - Pre-procedure physical examination revealed no contraindications to sedation. After obtaining informed consent, the scope was passed under direct vision. Throughout the procedure, the patient's blood pressure, pulse, and oxygen saturations were monitored continuously. The Duodenoscope was introduced through the mouth, and advanced to the duodenum and used to inject contrast into the bile duct. The ERCP was accomplished without difficulty. The patient tolerated the procedure well. Findings: The dolly operator film was normal. The esophagus was successfully intubated under direct vision. The scope was advanced to a normal major papilla in the descending duodenum without detailed examination of the pharynx, larynx and associated structures, and upper GI tract. The upper GI tract was grossly normal. The ventral pancreatic duct was inadvertently cannulated with the short-nosed traction sphincterotome without any complications. Biliary sphincterotomy was made with a monofilament needle knife using a freehand technique using ERBE electrocautery. There was no post-sphincterotomy bleeding. A 0.025 inch x 270 cm angled Visiglide wire was passed into the biliary tree. The short-nosed traction sphincterotome was passed over the guidewire and the bile duct was then deeply cannulated. Contrast was injected. I personally interpreted the bile duct images. Ductal flow of contrast was adequate. Image quality was adequate. Contrast extended to the main bile duct. Opacification of the entire biliary tree was successful. The maximum diameter of the ducts was 10 mm. The biliary tree was swept with a 12 mm balloon starting at the bifurcation. One stone was removed. No stones remained. The biliary sphincterotomy was extended with a monofilament traction (standard) sphincterotome using ERBE electrocautery. There was no post-sphincterotomy bleeding. One 5 Fr by 9 cm plastic pancreatic stent with a single external pigtail and no internal flaps was placed into the ventral pancreatic duct. Clear fluid flowed through the stent. The stent was in good position. One 7 Fr by 7 cm plastic biliary stent with a single external pigtail and a single internal pigtail was placed into the common bile duct. Bile flowed through the stent. The stent was in good position. One 7 Fr by 10 cm transpapillary plastic biliary stent with a single external pigtail and a single internal pigtail was placed into the gallbladder. Bile flowed through the stent. The stent was in good position. Impression: - Choledocholithiasis was found. Complete removal was accomplished by biliary sphincterotomy and balloon extraction. - One plastic pancreatic stent was placed into the ventral pancreatic duct. - One plastic biliary stent was placed into the common bile duct. - One transpapillary plastic biliary stent was placed into the gallbladder. Recommendation: - [facility]. - Repeat ERCP in 3 months at [facility] to remove the stents and place EUS guided GB drainage using Axios stent. - Resume Eliquis and Plavis after 3 days. - PO PPI + Carafate BID for one months. Lacie England MD 11/04/2022 3:50:06 PM This report has been signed electronically. Note Initiated On: 11/04/2022 2:40 PM Number of Addenda: 0 I attest to the content of the Intraoperative Record and orders documented therein, exceptions below {[id number]}
[2022-11-04] MEDS ORDERED: ALBUT/IPRATROP 3MG/0.5MG NEB 3 ML VIAL NEB STA (16:07)
[2022-11-04] MEDS ORDERED: GLUCAGON FOR INJ 1 MG VIAL ONE (16:17)
[2022-11-04] MEDS ORDERED: SODIUM CHLORIDE 0.9% 50 ML BAG ONE (16:30)
[2022-11-04] MEDS ORDERED: PROMETHAZINE HCL INJ 25 MG/ML 1 ML VIAL ONE ×2 (16:30→16:34)
--- NOTE | 2022-11-04 18:06 | Anesthesiology Progress Note ---
Date of Service November 04, 2022 Anesthesia Post Procedure Vital Signs Vital Signs: Temp Pulse Pulse Pulse Resp BP BP 11/04/22 17:52 36.3 C L 78 18 138/85 11/04/22 17:20 72 23 159/66 H 11/04/22 17:10 70 21 122/58 L 11/04/22 17:00 36 C L 69 24 124/60 11/04/22 16:50 61 20 115/58 L 11/04/22 16:40 61 23 97/48 L 11/04/22 16:30 64 24 91/47 L 11/04/22 16:20 59 L 23 88/46 L 11/04/22 16:10 67 27 H 94/54 L 11/04/22 16:00 80 26 H 117/63 11/04/22 15:50 36 C L 80 28 H 146/75 H 11/04/22 08:00 81 11/04/22 13:26 36.8 C 81 20 169/82 H 11/04/22 11:19 37.1 C 75 22 123/70 11/04/22 11:02 79 18 11/04/22 10:36 133/71 11/04/22 07:17 36.8 C 88 24 182/76 H 193/92 H 11/04/22 06:05 71 22 11/03/22 21:10 11/04/22 02:35 36.8 C 76 18 156/77 H 11/04/22 02:27 16 11/04/22 02:26 73 11/04/22 01:39 69 20 11/03/22 23:26 36.9 C 67 18 156/83 H 11/03/22 21:35 66 20 11/03/22 20:08 56 L 20 11/03/22 19:42 37 C 74 18 165/89 H 11/03/22 19:21 71 18 11/03/22 18:10 70 Pulse Ox O2 Del Method O2 Flow Rate 11/04/22 17:52 94 Nasal Cannula 3.0 11/04/22 17:20 93 Nasal Cannula 3 11/04/22 17:10 93 Nasal Cannula 3 11/04/22 17:00 94 Nasal Cannula 3 11/04/22 16:50 94 Nasal Cannula 3 11/04/22 16:40 96 Nasal Cannula 3 11/04/22 16:30 96 Nasal Cannula 3 07/20/23 16:20 97 Nasal Cannula 3 11/04/22 16:10 98 Nasal Cannula 4 11/04/22 16:00 98 Oxymask 6 11/04/22 15:50 97 Oxymask 6 11/04/22 08:00 11/04/22 13:26 99 Room Air 11/04/22 11:19 92 Nasal Cannula 2 11/04/22 11:02 92 Room Air 11/04/22 10:36 11/04/22 07:17 94 CPAP 2 11/04/22 06:05 96 CPAP 2 11/03/22 21:10 Nasal Cannula 2 11/04/22 02:35 98 CPAP 11/04/22 02:27 2 11/04/22 02:26 11/04/22 01:39 97 CPAP 2 11/03/22 23:26 94 Nasal CPAP 11/03/22 21:35 98 CPAP 2 11/03/22 20:08 95 2 11/03/22 19:42 96 Nasal Cannula 11/03/22 19:21 98 Nasal Cannula 2 11/03/22 18:10 Pain Intensity Right Lower Abdomen: Pain Intensity: 8 Transfer of Care Handoff Completed per policy Notes Mental Status: alert / awake / arousable and participated in evaluation Patient Amnestic to Procedure: Yes Nausea / Vomiting: adequately controlled Pain: adequately controlled Airway Patency, RR, SpO2: stable & adequate BP & HR: stable & adequate Hydration State: stable & adequate Anesthetic Complications: no major complications apparent and Pt Satisfied with anesthetic care Notes: Patient required duoneb in recovery with improvement of his wheezing. BP stable. He was c/o inability to urinate although bladder scan with volume in low 300's. Encouraging patient to try and void as given his blood thinner history I did not want to write for straight cath at this point in time. Nurse to pass this along to his accepting team.
[2022-11-04] MEDS: HYDROmorphone INJ 0.5 MG/0.5 ML SYR IV PRN (18:12)
[2022-11-04] MEDS: SUCRALFATE 1 GM/10 ML UDC PO SCH ×2 (19:00→21:16)
--- NOTE | 2022-11-04 19:39 | Fluoroscopy Report ---
FL ERCP biliary ductal CLINICAL HISTORY: ERCP TECHNIQUE: 18 views were obtained with the C-arm in the OR with the above procedure. Total fluoroscop y time was 4 minutes 43 seconds. Radiation dose was 140 mGy. Comparison: None available at the time of this dictation. FINDINGS/IMPRESSION: Intraoperative images were obtained of ERCP. A biliary stent is seen in the hiro l image. At the end of the exam no filling defects are seen to suggest choledocholithiasis. Please correlate with intraoperative fluoroscopy and operative report. ACT 112: Negative or not required by law. Electronically signed by: Kai Alonso M.D. 11/04/2022 7:38 PM
[2022-11-04] MEDS: ATORVASTATIN 40 MG TAB PO SCH (21:16)
[2022-11-05] MEDS: HYDROmorphone INJ 0.5 MG/0.5 ML SYR IV PRN ×2 (01:17→13:53)
[2022-11-05] MEDS: PIPERACILLIN/TAZOBACTAM 4.5 GM in DEXTROSE 5% 100 ML IV SCH ×3 (01:27→16:58)
[2022-11-05] MEDS: traMADol HCL 50 MG TABLET PO PRN ×2 (03:19→11:58)
[2022-11-05] MEDS ORDERED: LABETALOL HCL IV 5 MG/ML 20ML IV STA (04:20)
[2022-11-05 07:53] LABS: Hematocrit (blood only) 31.1 % (42.0-52.0); Hemoglobin 9.8 g/dl (14.0-18.0); Mean Corpuscular Hgb Conc 31.5 g/dL (32.0-36.0); Mean Corpuscular Volume 95.1 fL (80.0-100.0); Mean Platelet Volume 10.1 fL (9.4-12.4); Platelet Count 257 K/uL (130-400); RDW Coefficient of Variation 19.4 % (11.5-14.5); RDW Standard Deviation 67.5 fL (36.4-46.3); Red Blood Count 3.27 M/uL (4.70-6.10); White Blood Count 9.96 K/ul (4.8-10.8)
[2022-11-05 08:10] LABS: Albumin Globulin Ratio 1.1 (0.9-2); Albumin Level 3.5 gm/dl (3.4-5.0); BUN Creatinine Ratio 7.9 (10-20); Bilirubin,Total 0.8 mg/dl (0.2-1.0); Calcium 8.9 mg/dl (8.6-10.3); Creatinine Clr Calc Pharmacy 28.3 ml/min; Est GFR (African American) 29.8 ml/min; Est GFR (Non-African American) 25.7 ml/min; Globulin 3.1 gm/dl (2.5-4.0); Potassium 3.7 mmol/L (3.5-5.1); Total Protein 6.6 gm/dl (6.0-8.3)
[2022-11-05] MEDS: FLUTICASONE PROPIONATE NA SPR 16 GM BTL SCH (08:34)
[2022-11-05] MEDS: UMECLIDINIUM/VILANTEROL 62.5/25MCG 7 PUFFS/INHALER INH SCH (08:34)
[2022-11-05] MEDS: METOPROLOL TARTRATE 25 MG TAB PO SCH ×2 (08:35→21:07)
[2022-11-05] MEDS: PANTOprazole 40 MG in SYRINGE 0 ML IV SCH ×2 (08:35→21:08)
[2022-11-05] MEDS: SUCRALFATE 1 GM/10 ML UDC PO SCH ×4 (08:35→21:08)
[2022-11-05] MEDS: allopurinoL 300 MG TAB PO SCH (08:35)
[2022-11-05] MEDS: EZETIMIBE 10 MG TABLET PO SCH (08:36)
--- NOTE | 2022-11-05 08:53 | Surgery Progress Note ---
Date of Service November 05, 2022 Assessment & Plan (1) Acute cholecystitis: Plan: Patient slowly improving His EUS and ERCP images and results were reviewed, CBD and cystic duct were cleared with stents placed He should slowly improve over time From a surgical standpoint he can restart his blood thinners and advance his diet as tolerated No plans for cholecystectomy is GI we will plan to repeat the EUS and ERCP in a few months to exchange the stents for an Axios stent for definitive drainage of the gallbladder Surgical sign off at this time, please call with any questions or concerns (2) Recurrent cerebrovascular accidents (CVAs): (3) Aortic stenosis: Admission and Anticipated Discharge Date Admission Date: November 02, 2022 Subjective Patient seen and examined. Still with abdominal pain, right upper quadrant but improved. Afebrile. Doing well after his EUS/ERCP yesterday. Review of Systems Constitutional: no fever and no chills Gastrointestinal: + abdominal pain; no nausea and no vomiting Physical Exam Constitutional: WD/WN, vitals as above Gastrointestinal (Abdomen): Inspection/Auscultation: abdomen normal to inspection; abdomen not distended Percussion/Palpation: + abdomen tender (Right upper quadrant) and abdomen soft; no guarding and abdomen not rigid Results & Data Vital Signs (Past 12 Hours) Vital Signs Temp Pulse Pulse Resp BP BP Pulse Ox 11/05/22 07:40 77 11/05/22 07:31 37.2 C 77 22 184/89 H 99 11/05/22 05:30 75 177/80 H 11/05/22 05:00 73 184/82 H 11/05/22 04:43 86 184/80 H 11/05/22 02:50 36.9 C 80 20 193/89 H 97 11/05/22 03:09 79 182/84 H 11/05/22 02:24 11/04/22 23:00 87 11/04/22 22:55 36.9 C 83 20 168/85 H 95 11/04/22 22:11 17 O2 Del Method O2 Flow Rate 11/05/22 07:40 11/05/22 07:31 Nasal Cannula 4 11/05/22 05:30 11/05/22 05:00 11/05/22 04:43 11/05/22 02:50 Nasal Cannula 2 11/05/22 03:09 11/05/22 02:24 Nasal Cannula 2 11/04/22 23:00 11/04/22 22:55 CPAP 11/04/22 22:11 2 PG Care Time/CCT Total # of Minutes Spent Total Time Spent with Patient: Total time spent is greater than 50% in coordination of care (as documented) at patient's floor/unit and/or counseling patient: Coding Level of Care Code 89950 SUB INP/OBS CARE 05/12MIN Diagnoses Acute cholecystitis K81.0 Recurrent cerebrovascular accidents (CVAs) I63.9 Aortic stenosis I35.0
[2022-11-05] MEDS: amLODIPine BESYLATE 5 MG TAB PO SCH (09:04)
--- NOTE | 2022-11-05 09:28 | Gastroenterology Progress Note ---
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 - May resume Eliquis and Plavis after 3 days. - PO PPI + Carafate BID for one months. - Trend H&H - Monitor and document GI output - Transfuse PRN - Antiemetics PRN - Analgesia PRN Thank you for allowing us to participate in the care of this patient. Please call with any acute changes, questions or concerns. Please see addendum below with additional recommendation from my supervising physician. Admission and Anticipated Discharge Date Admission Date: November 02, 2022 Supervising Physician Co-Signing Physician Notes I performed a history and physical examination of the patient today, including specifically on physical exam - soft abdomen. I have discussed the patient's management with the advanced practitioner. Please refer to the nurse practitioner's note for the documented findings and plan of care. Labs improved. OP GB Axios stent. Recall GI if needed. Subjective Pt was seen and evaluated, chart reviewed. Notes that he has some upper abd discomfort this AM, right sided. It is similar to the pain he had yesterday pre-procedure No nausea, vomiting. HGB stable. LFTs downtrending. EGD 2022: - Normal esophagus. 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 Treated with argon plasma coagulation (APC). Clips (MR conditional) were placed. . - Normal duodenal bulb and second portion of the duodenum. - No specimens collected. EUS 2022: There was no sign of significant pathology in the ampulla. - There was dilation in the common bile duct which measured up to 9 mm. - One stone was visualized endosonographically in the common bile duct. - Multiple stones were visualized endosonographically in the gallbladder. - There was no evidence of significant pathology in the visualized portion of the liver. - There was no sign of significant pathology in the entire pancreas. - Endosonographic images of the left adrenal gland were unremarkable. - The celiac trunk was endosonographically normal. ERCP 2022: - Choledocholithiasis was found. Complete removal was accomplished by biliary sphincterotomy and balloon extraction. - One plastic pancreatic stent was placed into the ventral pancreatic duct. - One plastic biliary stent was placed into the common bile duct. - One transpapillary plastic biliary stent was placed into the gallbladder. Physical Exam Constitutional: WD/WN, vitals as above Respiratory: normal respiratory effort, lungs clear to auscultation Cardiovascular: Rate/Rhythm: regular rate Gastrointestinal (Abdomen): Inspection/Auscultation: abdomen normal to inspection Percussion/Palpation: + abdomen tender and abdomen soft; no guarding and abdomen not rigid Skin: no rashes, warm and dry Results & Data Vital Signs (Past 12 Hours) Vital Signs Temp Pulse Pulse Resp BP BP Pulse Ox 11/05/22 07:40 77 11/05/22 07:31 37.2 C 77 22 184/89 H 99 11/05/22 05:30 75 177/80 H 11/05/22 05:00 73 184/82 H 11/05/22 04:43 86 184/80 H 11/05/22 02:50 36.9 C 80 20 193/89 H 97 11/05/22 03:09 79 182/84 H 11/05/22 02:24 11/04/22 23:00 87 11/04/22 22:55 36.9 C 83 20 168/85 H 95 11/04/22 22:11 17 O2 Del Method O2 Flow Rate 11/05/22 07:40 11/05/22 07:31 Nasal Cannula 4 11/05/22 05:30 11/05/22 05:00 11/05/22 04:43 11/05/22 02:50 Nasal Cannula 2 11/05/22 03:09 11/05/22 02:24 Nasal Cannula 2 11/04/22 23:00 11/04/22 22:55 CPAP 11/04/22 22:11 2 Laboratory Results 11/05/22 11/05/22 Range/Units 07:31 07:31 WBC 9.96 (4.8-10.8) K/ul RBC 3.27 L (4.70-6.10) M/uL Hgb 9.8 L (14.0-18.0) g/dl Hct 31.1 L (42.0-52.0) % MCV 95.1 (80.0-100.0) fL MCH 30.0 (25.0-34.0) pg MCHC 31.5 L (32.0-36.0) g/dL RDW Std Deviation 67.5 H (36.4-46.3) fL RDW Coeff of Chaka 19.4 H (11.5-14.5) % Plt Count 257 (130-400) K/uL MPV 10.1 (9.4-12.4) fL Sodium 135 L (136-145) mmol/L Potassium 3.7 (3.5-5.1) mmol/L Chloride 100 (98-107) mmol/L Carbon Dioxide 25 (21-32) mmol/L Anion Gap 10 (3-11) BUN 19 (6-23) mg/dl Creatinine 2.39 H D (0.6-1.4) mg/dl Est Cr Clr Drug Dosing 28.3 ml/min Est GFR ( Amer) 29.8 ml/min Est GFR (Non-Af Amer) 25.7 ml/min BUN/Creatinine Ratio 7.9 L (10-20) Glucose 101 H (70-99(Fasting)) mg/dl Calcium 8.9 (8.6-10.3) mg/dl Magnesium Pending Total Bilirubin 0.8 (0.2-1.0) mg/dl AST 27 (13-39) U/L ALT 60 H (7-52) U/L Alkaline Phosphatase 141 H (34-104) U/L Total Protein 6.6 (6.0-8.3) gm/dl Albumin 3.5 (3.4-5.0) gm/dl Globulin 3.1 (2.5-4.0) gm/dl Albumin/Globulin Ratio 1.1 (0.9-2)
[2022-11-05] MEDS: POLYETHYLENE (MIRALAX) 17 GM PACK PO SCH (11:49)
[2022-11-05] MEDS ORDERED: hydrALAZINE HCL 20 MG/ML VIAL IV PRN (12:27)
[2022-11-05] MEDS ORDERED: SOD PHOSPHATE/SOD BIPHOSPHATE ENEMA 132 ML BTL PR STA (14:57)
--- NOTE | 2022-11-05 17:02 | Hospitalist Progress Note ---
Date of Service November 05, 2022 Assessment & Plan (1) Hypertensive crisis: Plan: Hypertensive urgency Situational secondary to pain Continue Amlodipine, Metoprolol Monitor BP, adjust meds as needed Blood pressure remains elevated-intravenous hydralazine will be given as needed to control the blood pressure Suspected Acute cholecystitis RUQ Abdominal Pain Transaminitis --CT ABD:Mild stranding surrounding the gallbladder, cannot exclude acute don cystitis. Recommend follow-up with right upper quadrant ultrasound. 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 Diverticulosis with no signs of diverticulitis. No acute appendicitis or bowel obstruction. --Gall Bladder USD:Findings suspicious for acute cholecystitis. Surgical consultation recommended. A 4.1 x 3.4 cm proximal abdominal aortic aneurysm. --HIDA:Minimal radiotracer within the gallbladder. Therefore, this study is technically negative for acute or chronic cholecystitis. However, given minimal radiotracer within the gallbladder, a false negative HIDA cannot be completely excluded. Short-term follow-up CT of the abdomen might be considered if persistent suspicion for acute cholecystitis. Delayed visualization of small bowel activity. This is a nonspecific finding which can be seen in the setting of sphincter spasm/dysfunction or partial common bile duct obstruction. --MRCP:Suboptimal evaluation due to the motion artifact. There is trace pericholecystic fluid. This is nonspecific and could be due to an acute cholecystitis, underlying hepatic pathology, or a diffuse edematous state. The patient's known gallstones are not well visualized due to the motion artifact. The common bile duct is normal in caliber measuring 6 mm. No definite filling defects within the common bile duct. Aneurysmal dilatation of the descending thoracic aorta and proximal abdominal aorta as described above. Blood cultures have been negative Continue Zosyn Appreciate GI-S/P EGD/EUS/ERCP with removal of CBD stone, transpapillary gallbladder stenting for decompression Repeat ERCP in 3 months at [facility] to remove the stents and place EUS guided GB drainage using Axios stent. Appreciate surgery input and recommendation Currently no plan for cholecystectomy given multiple comorbidities as per surgery Clinically much better without any more pain, nausea and or vomiting No fever and or chills Strokelike symptoms --CT head:No acute intracranial findings. No change in appearance of the brain. Multiple old infarcts. 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 These findings are new from 2009. Follow-up with vascular surgery is advised. 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 Continue Lipitor, Zetia Eliquis and Plavix have been on hold which can be restarted after 3 days from 11/04/2022 Chronic respiratory failure secondary to COPD On 2L supplemental Oxygen at baseline GINNY/nocturnal hypoxemia Continue Supplemental oxygen and CPAP HS H/O PSVT Valvular heart disease (severe , mild AR) Was planned to be evaluated by [facility] [place] surgery as per records Continue Metoprolol No cardiac arrhythmia noted Hyperlipidemia on statin H/O Waldenstrom macroglobulinemia Past tobacco abuse As per records CKD III Cr at baseline Monitor renal function DVT Px: SCDs Re: GI bleed Code Status Full code Admission and Anticipated Discharge Date Admission Date: November 02, 2022 Subjective 11/05/2022 The patient was seen and examined in telemetry unit He has been feeling much better but his blood pressure noted to be very high Denies any symptoms of chest pain, palpitation or shortness of breath and no headache Has not had a bowel movement for a while without any significant abdominal distention and her pain Review of Systems Review of Systems: All systems reviewed and are unremarkable except as noted below Gastrointestinal: Minimal abdominal discomfort Physical Exam Physical Exam: Lying in bed comfortably Constitutional: well developed, well nourished, + ill appearing and + obese Eyes: PERRL, conjunctivae normal, anicteric sclerae ENMT: external ear and nose normal, oropharynx normal Neck: trachea midline, no thyromegaly Respiratory: no respiratory distress Auscultation: lungs clear to auscultation bilaterally Cardiovascular: Rate/Rhythm: regular rate and regular rhythm; not tachycardic Heart Sounds: normal S1 and normal S2; no murmur Extremities: no edema Gastrointestinal (Abdomen): Inspection/Auscultation: normal bowel sounds; abdomen not distended Percussion/Palpation: abdomen soft; abdomen nontender Musculoskeletal: No acute arthritis involving any joint Neurologic: normal touch/pain/proprioception and moves all extremities; no focal motor deficits Lymphatic: no cervical or axillary lymphadenopathy Results & Data Results & Data Vital Signs (Past 12 Hours) Vital Signs Temp Pulse Pulse Resp BP BP BP 11/05/22 15:07 36.9 C 71 16 172/91 H 11/05/22 13:46 164/82 H 11/05/22 12:33 11/05/22 11:00 36.7 C 70 16 189/88 H 11/05/22 07:40 77 11/05/22 07:31 37.2 C 77 22 184/89 H 11/05/22 05:30 75 177/80 H 11/05/22 05:00 73 184/82 H Pulse Ox O2 Del Method O2 Flow Rate 11/05/22 15:07 97 Nasal Cannula 2 11/05/22 13:46 11/05/22 12:33 Nasal Cannula 2 11/05/22 11:00 97 Nasal Cannula 2 11/05/22 07:40 11/05/22 07:31 99 Nasal Cannula 4 11/05/22 05:30 11/05/22 05:00 Laboratory Results Short CBC 11/05/22 Range/Units 07:31 WBC 9.96 (4.8-10.8) K/ul Hgb 9.8 L (14.0-18.0) g/dl Hct 31.1 L (42.0-52.0) % Plt Count 257 (130-400) K/uL BMP 11/05/22 07:31 Sodium 135 L Potassium 3.7 Chloride 100 Carbon Dioxide 25 BUN 19 Creatinine 2.39 H D Glucose 101 H Calcium 8.9 Liver Function 11/05/22 Range/Units 07:31 Total Bilirubin 0.8 (0.2-1.0) mg/dl AST 27 (13-39) U/L ALT 60 H (7-52) U/L Alkaline Phosphatase 141 H (34-104) U/L Albumin 3.5 (3.4-5.0) gm/dl Medications Administered Current Inpatient Medications Acetaminophen (Acetaminophen 325 Mg Tab) 650 mg PO Q4H PRN PRN Reason: Pain or Fever Stop: 12/02/22 11:05 Last Admin: 11/03/22 00:53 Dose: 650 mg Albuterol (Albut/Ipratrop 3mg/0.5mg Neb 3 Ml Vial) 3 ml NEB Q2H PRN; Protocol PRN Reason: Wheezing Stop: 12/02/22 06:53 Last Admin: 11/04/22 11:02 Dose: 3 ml Allopurinol (Allopurinol 300 Mg Tab) 150 mg PO QAM MOLINA Stop: 12/02/22 08:59 Last Admin: 11/05/22 08:35 Dose: 150 mg Amlodipine Besylate (Amlodipine Besylate 5 Mg Tab) 5 mg PO QAM [facility] Stop: 12/05/22 08:59 Last Admin: 11/05/22 09:04 Dose: 5 mg Atorvastatin Calcium (Atorvastatin 40 Mg Tab) 80 mg PO QPM MOLINA Stop: 12/02/22 20:59 Last Admin: 11/04/22 21:16 Dose: 80 mg Docusate Sodium (Docusate Sodium 100 Mg Cap) 100 mg PO BID PRN PRN Reason: Constipation Stop: 12/02/22 06:52 Last Admin: 11/05/22 11:58 Dose: 100 mg Ezetimibe (Ezetimibe 10 Mg Tablet) 10 mg PO QAM [facility] Stop: 12/02/22 08:59 Last Admin: 11/05/22 08:36 Dose: 10 mg Fluticasone Propionate (Fluticasone Propionate Na Spr 16 Gm Btl) 2 sprays NA DAILY [facility] Stop: 12/02/22 08:59 Last Admin: 11/05/22 08:34 Dose: 2 sprays Hydralazine HCl (Hydralazine Hcl 20 Mg/Ml Vial) 10 mg IV Q6H PRN PRN Reason: Blood Pressure - High Stop: 12/05/22 12:29 Hydromorphone HCl (Hydromorphone Inj 0.5 Mg/0.5 Ml Syr) 0.25 mg IV Q6H PRN PRN Reason: Pain Stop: 11/16/22 05:52 Last Admin: 11/05/22 13:53 Dose: 0.25 mg Promethazine HCl 6.25 mg/ (Sodium Chloride) 50.25 mls @ 201 mls/hr IV Q6H PRN PRN Reason: Nausea And Vomiting Stop: 12/02/22 05:52 Last Infusion: 11/04/22 18:36 Dose: Infused Piperacillin Sod/Tazobactam (Sod 4.5 gm/ Dextrose) 120 mls @ 30 mls/hr IV Q8H MOLINA; Protocol Stop: 11/12/22 11:59 Last Infusion: 11/05/22 12:44 Dose: Infused Pantoprazole Sodium 40 mg/ (Syringe) 10 mls @ 5 mls/min IV BID MOLINA Stop: 12/02/22 20:59 Last Admin: 11/05/22 08:35 Dose: 5 mls/min Metoprolol Tartrate (Metoprolol Tartrate 25 Mg Tab) 12.5 mg PO BID MOLINA Stop: 12/02/22 08:59 Last Admin: 11/05/22 08:35 Dose: 12.5 mg Polyethylene Glycol (Polyethylene (Miralax) 17 Gm Pack) 17 gm PO DAILY [facility] Stop: 12/05/22 10:59 Last Admin: 11/05/22 11:49 Dose: 17 gm Sucralfate (Sucralfate 1 Gm/10 Ml Udc) 1 gm PO QIDM MOLINA Stop: 12/04/22 16:59 Last Admin: 11/05/22 11:49 Dose: 1 gm Tramadol HCl (Tramadol Hcl 50 Mg Tablet) 25 - 50 mg PO Q4H PRN PRN Reason: Pain Stop: 12/02/22 05:52 Last Admin: 11/05/22 11:58 Dose: 50 mg Umeclidinium/Vilanterol (Umeclidinium/Vilanterol 62.5/25mcg 7 Puffs/Inhaler) 1 puffs INH DAILY [facility] Stop: 12/02/22 08:59 Last Admin: 11/05/22 08:34 Dose: 1 puffs
[2022-11-05] MEDS: ALBUT/IPRATROP 3MG/0.5MG NEB 3 ML VIAL NEB PRN (20:32)
[2022-11-05] MEDS: ATORVASTATIN 40 MG TAB PO SCH (21:21)
[2022-11-06] MEDS: PIPERACILLIN/TAZOBACTAM 4.5 GM in DEXTROSE 5% 100 ML IV SCH ×3 (00:41→16:22)
[2022-11-06 06:12] LABS: Basophils # (auto) 0.07 K/uL (0-0.2); Basophils % (auto) 0.6 %; Eosinophils # (auto) 0.87 K/uL (0-0.50); Hematocrit (blood only) 32.7 % (42.0-52.0); Hemoglobin 10.1 g/dl (14.0-18.0); Immature Granulocytes # (auto) 0.04 K/uL (0.01-0.20); Immature Granulocytes % (auto) 0.4 %; Lymphocytes # (auto) 1.11 K/uL (1.2-3.4); Lymphocytes % (auto) 10.2 %; Mean Corpuscular Hemoglobin 30.1 pg (25.0-34.0); Mean Corpuscular Hgb Conc 30.9 g/dL (32.0-36.0); Mean Corpuscular Volume 97.3 fL (80.0-100.0); Mean Platelet Volume 10.4 fL (9.4-12.4); Monocytes # (auto) 1.01 K/uL (0.11-0.59); Monocytes % (auto) 9.3 %; Neutrophils # (auto) 7.73 K/uL (1.40-6.50); Neutrophils % (auto) 71.5 %; Platelet Count 269 K/uL (130-400); RDW Coefficient of Variation 19.3 % (11.5-14.5); RDW Standard Deviation 69.4 fL (36.4-46.3); Red Blood Count 3.36 M/uL (4.70-6.10); White Blood Count 10.83 K/ul (4.8-10.8)
[2022-11-06 06:25] LABS: BUN Creatinine Ratio 6.9 (10-20); Calcium 8.8 mg/dl (8.6-10.3); Creatinine Clr Calc Pharmacy 30.6 ml/min; Est GFR (African American) 33.5 ml/min; Est GFR (Non-African American) 28.9 ml/min; Magnesium 1.9 mg/dl (1.7-2.4); Potassium 3.3 mmol/L (3.5-5.1)
[2022-11-06] MEDS: PANTOprazole 40 MG in SYRINGE 0 ML IV SCH ×2 (08:04→20:11)
[2022-11-06] MEDS: SUCRALFATE 1 GM/10 ML UDC PO SCH ×4 (08:04→20:11)
[2022-11-06] MEDS: EZETIMIBE 10 MG TABLET PO SCH (08:05)
[2022-11-06] MEDS: allopurinoL 300 MG TAB PO SCH (08:05)
[2022-11-06] MEDS: METOPROLOL TARTRATE 25 MG TAB PO SCH ×2 (08:06→20:11)
[2022-11-06] MEDS: amLODIPine BESYLATE 5 MG TAB PO SCH (08:07)
[2022-11-06] MEDS: FLUTICASONE PROPIONATE NA SPR 16 GM BTL SCH (08:07)
[2022-11-06] MEDS: POLYETHYLENE (MIRALAX) 17 GM PACK PO SCH (08:08)
[2022-11-06] MEDS: UMECLIDINIUM/VILANTEROL 62.5/25MCG 7 PUFFS/INHALER INH SCH (08:08)
[2022-11-06] MEDS ORDERED: POTASSIUM CHLORIDE CRTAB 20 MEQ TABCR PO STA (08:51)
[2022-11-06] MEDS: ALBUTEROL HFA 8 GM INHALER INH PRN ×2 (11:00→19:33)
--- NOTE | 2022-11-06 14:51 | Hospitalist Progress Note ---
Date of Service November 06, 2022 Assessment & Plan (1) Hypertensive crisis: Plan: Hypertensive urgency Situational secondary to pain Continue Amlodipine, Metoprolol Monitor BP, adjust meds as needed Blood pressure remains elevated-intravenous hydralazine will be given as needed to control the blood pressure Blood pressure remains elevated at 161/80 Will increase amlodipine to 10 mg daily Suspected Acute cholecystitis RUQ Abdominal Pain Transaminitis --CT ABD:Mild stranding surrounding the gallbladder, cannot exclude acute cholecystitis. Recommend follow-up with right upper quadrant ultrasound. 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 Diverticulosis with no signs of diverticulitis. No acute appendicitis or bowel obstruction. --Gall Bladder USD:Findings suspicious for acute cholecystitis. Surgical consultation recommended. A 4.1 x 3.4 cm proximal abdominal aortic aneurysm. --HIDA:Minimal radiotracer within the gallbladder. Therefore, this study is technically negative for acute or chronic cholecystitis. However, given minimal radiotracer within the gallbladder, a false negative HIDA cannot be completely excluded. Short-term follow-up CT of the abdomen might be considered if persistent suspicion for acute cholecystitis. Delayed visualization of small bowel activity. This is a nonspecific finding which can be seen in the setting of sphincter spasm/dysfunction or partial common bile duct obstruction. --MRCP:Suboptimal evaluation due to the motion artifact. There is trace pericholecystic fluid. This is nonspecific and could be due to an acute cholecystitis, underlying hepatic pathology, or a diffuse edematous state. The patient's known gallstones are not well visualized due to the motion artifact. The common bile duct is normal in caliber measuring 6 mm. No definite filling defects within the common bile duct. Aneurysmal dilatation of the descending thoracic aorta and proximal abdominal aorta as described above. Blood cultures have been negative Continue Zosyn Will change antibiotic to Augmentin on discharge to finish the course for a total of 10 days 5 angioectasis without any bleeding noted in the stomach which are cauterized with APC and clips Anemia of Chronic diastase Chronic Melena In setting of apixaban, Plavix use H/O GERD, peptic ulcer disease --S/P 2 units PRBCs Continue PPI Eliquis, apixaban held Monitor H&H and transfuse as needed GI on board Hb 9.8 as of 11/05/2022 Hemoglobin is 10.1 today that is 11/06/2022 Appreciate GI-S/P EGD/EUS/ERCP with removal of CBD stone, transpapillary gallbladder stenting for decompression Repeat ERCP in 3 months at [facility] to remove the stents and place EUS guided GB drainage using Axios stent. Appreciate surgery input and recommendation Currently no plan for cholecystectomy given multiple comorbidities as per surgery Clinically much better without any more pain, nausea and or vomiting No fever and or chills Strokelike symptoms --CT head:No acute intracranial findings. No change in appearance of the brain. Multiple old infarcts. 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 These findings are new from 2009. Follow-up with vascular surgery is advised. 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 Continue Lipitor, Zetia Eliquis and Plavix have been on hold which can be restarted after 3 days from 11/04/2022 Will start Eliquis and Plavix from tomorrow Chronic respiratory failure secondary to COPD On 2L supplemental Oxygen at baseline GINNY/nocturnal hypoxemia Continue Supplemental oxygen and CPAP HS H/O PSVT Valvular heart disease (severe , mild AR) Was planned to be evaluated [place] [facility] [place] as per records Continue Metoprolol No cardiac arrhythmia noted Hyperlipidemia on statin H/O Waldenstrom macroglobulinemia Past tobacco abuse As per records CKD III Cr at baseline Monitor renal function DVT Px: SCDs Re: GI bleed Code Status Full code Admission and Anticipated Discharge Date Admission Date: November 02, 2022 Subjective 11/05/2022 The patient was seen and examined in telemetry unit He has been feeling much better but his blood pressure noted to be very high Denies any symptoms of chest pain, palpitation or shortness of breath and no headache Has not had a bowel movement for a while without any significant abdominal distention and her pain 11/06/2022 The patient was seen and examined in telemetry unit He has been much better and is out of bed on a chair Has had bowel movement and denies any problem with urination Has been tolerating liquid diet Review of Systems Review of Systems: All systems reviewed and are unremarkable except as noted below Physical Exam Physical Exam: Sitting on a chair without any acute distress Constitutional: well developed, well nourished, + ill appearing and + obese Eyes: PERRL, conjunctivae normal, anicteric sclerae ENMT: external ear and nose normal, oropharynx normal Neck: trachea midline, no thyromegaly Respiratory: no respiratory distress Auscultation: lungs clear to auscultation bilaterally Cardiovascular: Rate/Rhythm: regular rate and regular rhythm; not tachycardic Heart Sounds: normal S1 and normal S2; no murmur Extremities: no edema Gastrointestinal (Abdomen): Inspection/Auscultation: normal bowel sounds; abdomen not distended Percussion/Palpation: abdomen soft; abdomen nontender Neurologic: normal touch/pain/proprioception and moves all extremities; no focal motor deficits Lymphatic: no cervical or axillary lymphadenopathy Results & Data Results & Data Vital Signs (Past 12 Hours) Vital Signs Temp Pulse Pulse Resp BP Pulse Ox O2 Del Method 11/06/22 13:30 Nasal Cannula 11/06/22 13:29 69 11/06/22 11:09 161/80 H 11/06/22 10:46 36.8 C 67 18 174/76 H 94 Nasal Cannula 11/06/22 07:41 36.4 C L 74 18 134/71 96 Nasal Cannula 11/06/22 03:33 36.3 C L 70 18 160/85 H 95 Nasal CPAP O2 Flow Rate 11/06/22 13:30 2 11/06/22 13:29 11/06/22 11:09 11/06/22 10:46 3.0 11/06/22 07:41 2.0 11/06/22 03:33 Laboratory Results Short CBC 11/06/22 Range/Units 05:34 WBC 10.83 H (4.8-10.8) K/ul Hgb 10.1 L (14.0-18.0) g/dl Hct 32.7 L (42.0-52.0) % Plt Count 269 (130-400) K/uL BMP 11/06/22 05:34 Sodium 137 Potassium 3.3 L Chloride 100 Carbon Dioxide 27 BUN 15 Creatinine 2.17 H Glucose 111 H Calcium 8.8 Medications Administered Current Inpatient Medications Acetaminophen (Acetaminophen 325 Mg Tab) 650 mg PO Q4H PRN PRN Reason: Pain or Fever Stop: 12/02/22 11:05 Last Admin: 11/03/22 00:53 Dose: 650 mg Albuterol (Albut/Ipratrop 3mg/0.5mg Neb 3 Ml Vial) 3 ml NEB Q2H PRN; Protocol PRN Reason: Wheezing Stop: 12/02/22 06:53 Last Admin: 11/05/22 20:32 Dose: 3 ml Albuterol (Albuterol Hfa 8 Gm Inhaler) 2 puffs INH Q6H PRN PRN Reason: Wheezing Stop: 12/06/22 11:59 Allopurinol ([facility]op[facility]ol 300 Mg Tab) [facility] Stop: 12/02/22 08:59 Last Admin: 11/06/22 08:05 Dose: 150 mg Amlodipine Besylate (Amlodipine Besylate 5 Mg Tab) 5 mg PO QAM [facility] Stop: 12/05/22 08:59 Last Admin: 11/06/22 08:07 Dose: 5 mg Atorvastatin Calcium (Atorvastatin 40 Mg Tab) 80 mg PO QPM [facility] Stop: 12/02/22 20:59 Last Admin: 11/05/22 21:21 Dose: 80 mg Docusate Sodium (Docusate Sodium 100 Mg Cap) 100 mg PO BID PRN PRN Reason: Constipation Stop: 12/02/22 06:52 Last Admin: 11/05/22 11:58 Dose: 100 mg Ezetimibe (Ezetimibe 10 Mg Tablet) 10 mg PO QAM [facility] Stop: 12/02/22 08:59 Last Admin: 11/06/22 08:05 Dose: 10 mg Fluticasone Propionate (Fluticasone Propionate Na Spr 16 Gm Btl) 2 sprays NA DAILY [facility] Stop: 12/02/22 08:59 Last Admin: 11/06/22 08:07 Dose: 2 sprays Hydralazine HCl (Hydralazine Hcl 20 Mg/Ml Vial) 10 mg IV Q6H PRN PRN Reason: Blood Pressure - High Stop: 12/05/22 12:29 Last Admin: 11/05/22 22:29 Dose: 10 mg Hydromorphone HCl (Hydromorphone Inj 0.5 Mg/0.5 Ml Syr) 0.25 mg IV Q6H PRN PRN Reason: Pain Stop: 11/16/22 05:52 Last Admin: 11/05/22 13:53 Dose: 0.25 mg Promethazine HCl 6.25 mg/ (Sodium Chloride) 50.25 mls @ 201 mls/hr IV Q6H PRN PRN Reason: Nausea And Vomiting Stop: 12/02/22 05:52 Last Infusion: 11/04/22 18:36 Dose: Infused Piperacillin Sod/Tazobactam (Sod 4.5 gm/ Dextrose) 120 mls @ 30 mls/hr IV Q8H [facility]; Protocol Stop: 11/12/22 11:59 Last Infusion: 11/06/22 13:14 Dose: Infused Pantoprazole Sodium 40 mg/ (Syringe) 10 mls @ 5 mls/min IV BID [facility] Stop: 12/02/22 20:59 Last Admin: 11/06/22 08:04 Dose: 5 mls/min Metoprolol Tartrate (Metoprolol Tartrate 25 Mg Tab) 12.5 mg PO BID [facility] Stop: 12/02/22 08:59 Last Admin: 11/06/22 08:06 Dose: 12.5 mg Polyethylene Glycol (Polyethylene (Miralax) 17 Gm Pack) 17 gm PO DAILY [facility] Stop: 12/05/22 10:59 Last Admin: 11/06/22 08:08 Dose: Not Given Sucralfate (Sucralfate 1 Gm/10 Ml Udc) 1 gm PO QIDM [facility] Stop: 12/04/22 16:59 Last Admin: 11/06/22 11:23 Dose: 1 gm Tramadol HCl (Tramadol Hcl 50 Mg Tablet) 25 - 50 mg PO Q4H PRN PRN Reason: Pain Stop: 12/02/22 05:52 Last Admin: 11/05/22 11:58 Dose: 50 mg Umeclidinium/Vilanterol (Umeclidinium/Vilanterol 62.5/25mcg 7 Puffs/Inhaler) 1 puffs INH DAILY [facility] Stop: 12/02/22 08:59 Last Admin: 11/06/22 08:08 Dose: 1 puffs
[2022-11-06] MEDS: ATORVASTATIN 40 MG TAB PO SCH (20:11)
[2022-11-07] MEDS: PIPERACILLIN/TAZOBACTAM 4.5 GM in DEXTROSE 5% 100 ML IV SCH ×2 (00:19→08:47)
[2022-11-07] MEDS ORDERED: POTASSIUM CHLORIDE CRTAB 20 MEQ TABCR PO STA (08:04)
[2022-11-07] MEDS: SUCRALFATE 1 GM/10 ML UDC PO SCH ×2 (08:48→11:28)
[2022-11-07] MEDS: METOPROLOL TARTRATE 25 MG TAB PO SCH (08:48)
[2022-11-07] MEDS: PANTOprazole 40 MG in SYRINGE 0 ML IV SCH (08:48)
[2022-11-07] MEDS: allopurinoL 300 MG TAB PO SCH (08:51)
[2022-11-07] MEDS: EZETIMIBE 10 MG TABLET PO SCH (08:51)
[2022-11-07] MEDS: UMECLIDINIUM/VILANTEROL 62.5/25MCG 7 PUFFS/INHALER INH SCH (08:52)
[2022-11-07] MEDS: FLUTICASONE PROPIONATE NA SPR 16 GM BTL SCH (08:53)
[2022-11-07] MEDS: POLYETHYLENE (MIRALAX) 17 GM PACK PO SCH (08:53)
[2022-11-07] MEDS ORDERED: amLODIPine BESYLATE 5 MG TAB PO SCH (09:00)
--- NOTE | 2022-11-07 12:45 | Hospitalist Progress Note ---
Date of Service November 07, 2022 Assessment & Plan (1) Hypertensive crisis: Plan: Hypertensive urgency Situational secondary to pain Continue Amlodipine, Metoprolol Monitor BP, adjust meds as needed Blood pressure remains elevated-intravenous hydralazine will be given as needed to control the blood pressure Blood pressure remains elevated at 161/80 Will increase amlodipine to 10 mg daily Blood pressure is well controlled today Suspected Acute cholecystitis RUQ Abdominal Pain Transaminitis --CT ABD:Mild stranding surrounding the gallbladder, cannot exclude acute cholecystitis. Recommend follow-up with right upper quadrant ultrasound. 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 Diverticulosis with no signs of diverticulitis. No acute appendicitis or bowel obstruction. --Gall Bladder USD:Findings suspicious for acute cholecystitis. Surgical consultation recommended. A 4.1 x 3.4 cm proximal abdominal aortic aneurysm. --HIDA:Minimal radiotracer within the gallbladder. Therefore, this study is technically negative for acute or chronic cholecystitis. However, given minimal radiotracer within the gallbladder, a false negative HIDA cannot be completely excluded. Short-term follow-up CT of the abdomen might be considered if persistent suspicion for acute cholecystitis. Delayed visualization of small bowel activity. This is a nonspecific finding which can be seen in the setting of sphincter spasm/dysfunction or partial common bile duct obstruction. --MRCP:Suboptimal evaluation due to the motion artifact. There is trace pericholecystic fluid. This is nonspecific and could be due to an acute cholecystitis, underlying hepatic pathology, or a diffuse edematous state. The patient's known gallstones are not well visualized due to the motion artifact. The common bile duct is normal in caliber measuring 6 mm. No definite filling defects within the common bile duct. Aneurysmal dilatation of the descending thoracic aorta and proximal abdominal aorta as described above. Blood cultures have been negative Continue Zosyn Will change antibiotic to Augmentin on discharge to finish the course for a total of 10 days Remains stable and will be discharged home on oral Augmentin for a total of 10 days of antibiotic Will have outpatient GI follow-up 5 angioectases without any bleeding noted in the stomach which are cauterized with APC and clips Anemia of Chronic diastase Chronic Melena In setting of apixaban, Plavix use H/O GERD, peptic ulcer disease --S/P 2 units PRBCs Continue PPI Eliquis, apixaban held Monitor H&H and transfuse as needed GI on board Hb 9.8 as of 11/05/2022 Hemoglobin is 10.1 today that is 11/06/2022 Appreciate GI-S/P EGD/EUS/ERCP with removal of CBD stone, transpapillary gallbladder stenting for decompression Repeat ERCP in 3 months at [facility] to remove the stents and place EUS guided GB drainage using Axios stent. GI will arrange for that procedure in [facility] Appreciate surgery input and recommendation Currently no plan for cholecystectomy given multiple comorbidities as per surgery Clinically much better without any more pain, nausea and or vomiting No fever and or chills Strokelike symptoms --CT head:No acute intracranial findings. No change in appearance of the brain. Multiple old infarcts. 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 These findings are new from 2009. Follow-up with vascular surgery is advised. 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 Continue Lipitor, Zetia Eliquis and Plavix have been on hold which can be restarted after 3 days from 11/04/2022 Will start Eliquis and Plavix from tomorrow Chronic respiratory failure secondary to COPD On 2L supplemental Oxygen at baseline GINNY/nocturnal hypoxemia Continue Supplemental oxygen and CPAP HS H/O PSVT Valvular heart disease (severe , mild AR) Was planned [place] [facility] [place] as [place] records Continue Metoprolol No cardiac arrhythmia noted Hyperlipidemia on statin H/O Waldenstrom macroglobulinemia Past tobacco abuse As per records CKD III Cr at baseline Monitor renal function DVT Px: SCDs Re: GI bleed Code Status Full code Discharge home this afternoon Admission and Anticipated Discharge Date Admission Date: November 02, 2022 Subjective 11/05/2022 The patient was seen and examined in telemetry unit He has been feeling much better but his blood pressure noted to be very high Denies any symptoms of chest pain, palpitation or shortness of breath and no headache Has not had a bowel movement for a while without any significant abdominal distention and her pain 11/06/2022 The patient was seen and examined in telemetry unit He has been much better and is out of bed on a chair Has had bowel movement and denies any problem with urination Has been tolerating liquid diet 11/07/2022 The patient was seen and examined in telemetry unit He denies any complaints today and has been ambulating without any difficulties No fever and no chills, minimal abdominal discomfort but denies any other significant symptoms He will be discharged home this afternoon Review of Systems Review of Systems: All systems reviewed and are unremarkable except as noted below Gastrointestinal: Minimal abdominal discomfort Physical Exam Physical Exam: Sitting on a chair without any acute distress Constitutional: well developed, well nourished, + ill appearing and + obese Eyes: PERRL, conjunctivae normal, anicteric sclerae ENMT: external ear and nose normal, oropharynx normal Neck: trachea midline, no thyromegaly Respiratory: no respiratory distress Auscultation: lungs clear to auscultation bilaterally Cardiovascular: Rate/Rhythm: regular rate and regular rhythm; not tachycardic Heart Sounds: normal S1 and normal S2; no murmur Extremities: no edema Gastrointestinal (Abdomen): Inspection/Auscultation: normal bowel sounds; abdomen not distended Percussion/Palpation: abdomen soft; abdomen nontender Neurologic: normal touch/pain/proprioception and moves all extremities; no focal motor deficits Lymphatic: no cervical or axillary lymphadenopathy Results & Data Results & Data Vital Signs (Past 12 Hours) Vital Signs Temp Pulse Pulse Resp BP BP Pulse Ox 11/07/22 11:19 36.8 C 70 18 142/81 H 98 11/07/22 07:43 11/07/22 07:41 70 11/07/22 07:36 37.0 C 69 19 138/77 97 11/07/22 02:46 36.4 C L 72 19 166/83 H 96 O2 Del Method O2 Flow Rate 11/07/22 11:19 Nasal Cannula 2.0 11/07/22 07:43 Nasal Cannula 2 11/07/22 07:41 11/07/22 07:36 Nasal Cannula 2.0 11/07/22 02:46 Nasal CPAP
--- NOTE | 2022-11-07 16:53 | Discharge Summary ---
Date of Service November 07, 2022 Admission HPI Per Admitting Provider History obtained from patient, family, and records. 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 Last confinement 3 weeks ago for COPD exacerbation. Last night, patient experience epigastric pain followed by nausea, emesis after dinner. No fever, no chills, no headache, no chest pain, no SOB. Usual dark stools attributed to iron intake. SBP 200s upon arrival at the ER. 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 Admission Exam Per Admitting Provider Physical Exam: GENERAL: obese, slightly hard of hearing, no respiratory distress SKIN: Pallor, warm HEENT: Sparse hair, pale palpebral conjunctivae, no ptosis, dry buccal mucosa, nasal cannula in place NECK : Supple, short neck, no tenderness CHEST : Decreased breath sounds, diffuse expiratory wheezes, no tenderness HEART : RRR, systolic murmur ABDOMEN: Some distention, nontender RECTAL : Intact sphincter, melanotic stool (FOBT positive) EXTREMITIES : Minimal LE swelling, no LE tenderness, no other conspicuous deformities noted NEUROLOGIC : Coherent, no facial asymmetry, slightly hard of hearing, no other gross focality Principal Diagnosis Hypertensive crisis, acute cholecystitis status post ERCP and transpapillary gallbladder stent placement. Discharge Exam Sitting on a chair without any acute distress Constitutional well developed, well nourished, + ill appearing and + obese Eyes PERRL, conjunctivae normal, anicteric sclerae ENMT external ear and nose normal, oropharynx normal Neck trachea midline, no thyromegaly Respiratory no respiratory distress Auscultation: lungs clear to auscultation bilaterally Cardiovascular Rate/Rhythm: regular rate and regular rhythm; not tachycardic Heart Sounds: normal S1 and normal S2; no murmur Extremities: no edema Gastrointestinal (Abdomen) Inspection/Auscultation: normal bowel sounds; abdomen not distended Percussion/Palpation: abdomen soft; abdomen nontender Neurologic normal touch/pain/proprioception and moves all extremities; no focal motor deficits Lymphatic no cervical or axillary lymphadenopathy Discharge Data Allergies Allergy/AdvReac Type Severity Reaction Status Date / Time RUBENS Inhibitors AdvReac Intermediate DROPS Verified 11/02/22 01:45 BLOOD PRESSURE lisinopril AdvReac Intermediate DROPS Verified 11/02/22 01:45 BLOOD PRESSURE Consultations 11/02/22 04:41 ED Decision to Admit Stat 11/02/22 06:45 Consult General Surgery Routine 11/02/22 08:55 Consult Gastroenterology Routine Procedures Performed Operation Date: 11/04/22 07:55 Actual Procedures p Esophagogastroduodenoscopy - Lacie England MD s Endoscopic Ultrasonography Upper - Lacie England MD p Endoscopic Retrograde Cholangiopancreato - Lacie England MD Ordered Studies 11/02/22 01:19 CT abd pelvis wo con Stat 11/02/22 04:34 US gallbladder Stat 11/02/22 09:24 MR MRCP Routine 11/03/22 07:[address] [CT head/brain wo con] Stat 11/03/22 07:44 CT chest diagnostic wo con Stat 11/04/22 FL ERCP biliary ductal Routine 11/04/22 11:19 US upper EUS PACS images Routine Hospital Course (1) Hypertensive crisis: Hypertensive urgency Situational secondary to pain Continue Amlodipine, Metoprolol Monitor BP, adjust meds as needed Blood pressure remains elevated-intravenous hydralazine will be given as needed to control the blood pressure Blood pressure remains elevated at 161/80 Will increase amlodipine to 10 mg daily Blood pressure is well controlled today Suspected Acute cholecystitis RUQ Abdominal Pain Transaminitis --CT ABD:Mild stranding surrounding the gallbladder, cannot exclude acute cholecystitis. Recommend follow-up with right upper quadrant ultrasound. 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 Diverticulosis with no signs of diverticulitis. No acute appendicitis or bowel obstruction. --Gall Bladder USD:Findings suspicious for acute cholecystitis. Surgical consultation recommended. A 4.1 x 3.4 cm proximal abdominal aortic aneurysm. --HIDA:Minimal radiotracer within the gallbladder. Therefore, this study is technically negative for acute or chronic cholecystitis. However, given minimal radiotracer within the gallbladder, a false negative HIDA cannot be completely excluded. Short-term follow-up CT of the abdomen might be considered if persist ent suspicion for acute cholecystitis. Delayed visualization of small bowel activity. This is a nonspecific finding which can be seen in the setting of sphincter spasm/dysfunction or partial common bile duct obstruction. --MRCP:Suboptimal evaluation due to the motion artifact. There is trace pericholecystic fluid. This is nonspecific and could be due to an acute cholecystitis, underlying hepatic pathology, or a diffuse edematous state. The patient's known gallstones are not well visualized due to the motion artifact. The common bile duct is normal in caliber measuring 6 mm. No definite filling defects within the common bile duct. Aneurysmal dilatation of the descending thoracic aorta and proximal abdominal aorta as described above. Blood cultures have been negative Continue Zosyn Will change antibiotic to Augmentin on discharge to finish the course for a total of 10 days Remains stable and will be discharged home on oral Augmentin for a total of 10 days of antibiotic Will have outpatient GI follow-up 5 angioectases without any bleeding noted in the stomach which are cauterized with APC and clips Anemia of Chronic diastase Chronic Melena In setting of apixaban, Plavix use H/O GERD, peptic ulcer disease --S/P 2 units PRBCs Continue PPI Eliquis, apixaban held Monitor H&H and transfuse as needed GI on board Hb 9.8 as of 11/05/2022 Hemoglobin is 10.1 today that is 11/06/2022 Appreciate GI-S/P EGD/EUS/ERCP with removal of CBD stone, transpapillary gallbladder stenting for decompression Repeat ERCP in 3 months at [facility] to remove the stents and place EUS guided GB drainage using Axios stent. GI will arrange for that procedure in [facility] Appreciate surgery input and recommendation Currently no plan for cholecystectomy given multiple comorbidities as per surgery Clinically much better without any more pain, nausea and or vomiting No fever and or chills Strokelike symptoms --CT head:No acute intracranial findings. No change in appearance of the brain. Multiple old infarcts. 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 These findings are new from 2009. Follow-up with vascular surgery is advised. 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 Continue Lipitor, Zetia Eliquis and Plavix have been on hold which can be restarted after 3 days from 11/04/2022 Will start Eliquis and Plavix from tomorrow Chronic respiratory failure secondary to COPD On 2L supplemental Oxygen at baseline GINNY/nocturnal hypoxemia Continue Supplemental oxygen and CPAP HS H/O PSVT Valvular heart disease (severe , mild AR) Was planned to be evaluated [place] [facility] [place] as per records Continue Metoprolol No cardiac arrhythmia noted Hyperlipidemia on statin H/O Waldenstrom macroglobulinemia Past tobacco abuse As per records CKD III Cr at baseline Monitor renal function DVT Px: SCDs Re: GI bleed Code Status Full code Discharge home this afternoon Total Time Total Time Spent Total Time Spent (In Minutes): 40 minutes Discharge Plan Discharge Items Patient Disposition: Home - Self-Care Reason For Visit: HTN CRISIS, UGIB Discharge Diagnosis: Hypertensive crisis, acute cholecystitis status post ERCP and transpapillary gallbladder stent placement. Condition on Discharge: Good Activity: As commented below Activity Comment: Take it easy for the next few days Non-emergency contact: Primary Care Provider Call non-emergency contact if: you have any medication questions and your symptoms worsen Follow-up/Referrals: Jairo Kingston MD [Primary Care Provider] - (Your doctor's office will call you with an appointment within 7 days [facility] will call you with an appointment for repeat ERCP and stent removal) Diet: Heart Healthy and Low Fiber Addtl Attending Provider Instructions: Please take precautions to avoid falls Needs a course of antibiotic Please keep appointment with your healthcare provider Pending Studies at Discharge: No Stand-Alone Forms: My [employer], Smoking Cessation Medications and DC Order Prescriptions: New sucralfate 100 mg/mL Suspension 1 g PO QIDM 30 Days Qty: 1200 0RF amlodipine [Norvasc] 5 mg Tablet 10 mg PO QAM 30 Days Qty: 60 0RF pantoprazole 40 mg Tablet,Delayed Release (Dr/Ec) 40 mg PO BID 30 Days Qty: 60 0RF amoxicillin-pot clavulanate 875-125 mg Tablet 1 tab PO BIDM 5 Days Qty: 10 0RF Continued atorvastatin 80 mg tablet 80 mg PO QPM clopidogrel 75 mg tablet 75 mg PO QAM fluticasone propionate 50 mcg/actuation [place],Suspension 2 spray INTRANASAL DAILY cholecalciferol (vitamin D3) [D3-2000] 50 mcg (2,000 unit) capsule 2,000 unit PO QAM allopurinol 300 mg tablet 150 mg PO QAM albuterol sulfate 90 mcg/actuation HFA aerosol inhaler 2 puff INHALATION Q4 PRN (Reason: Wheezing) metoprolol tartrate 25 mg tablet 12.5 mg PO BID Patient Comments: TAKES 12.5 MG BID ezetimibe 10 mg Tablet 10 mg PO QAM (DME) Oxygen Home Liters Per Minute See Rx Instructions .Route Qty: 1 0RF Rx Instructions: 3 LPM with ambulation docusate sodium 100 mg Capsule 100 mg PO BID PRN (Reason: Constipation) apixaban 5 mg Tablet 5 mg PO BID Anoro Ellipta 62.5-25 mcg/actuation blister with device 1 inh inhalation DAILY Vitron-C 65 mg iron- 125 mg Tablet,Delayed Release (Dr/Ec) 1 tab PO QAM ipratropium-albuterol 0.5 mg-3 mg(2.5 mg base)/3 mL solution for nebulization 3 ml inhalation Q6H PRN (Reason: Shortness Of Breath) Discontinued amlodipine 2.5 mg Tablet 2.5 mg PO QAM pantoprazole 40 mg tablet,delayed release (DR/EC) 40 mg PO QAM Discharge Orders: Discharge Order (Routine); Ordered 11/07/22 Ordered By: Haroldo Holder/Other Patient Handouts: Sucralfate Oral Suspension, Amoxicillin/Clavulanate Oral Tablet Admission Data Admit Date/Time: 11/02/22 05:51 Attending Provider: Haroldo Wheeler Admit Provider: Nicholas Thompson Primary Care Provider: Jairo Kingston Other Providers: Nicholas Thompson ; Mikhail Flores ; Tomás Sanchez ; Kong Main ; Ender Desouza ; Zeyad Westfall ; Jacinto Ferguson ; Belinda Parsons ; Adilson Briggs ; Hang Villatoro ; Brii Garcia ; Elmer Alvarez ; Dorinda Hanson ; Landon Álvarez ; Elo Delacruz ; Nyla Vinson ; Kassy Cabrera ; Reena Mckenzie ; Efrem Gomez ; Toi Yee ; Redd Sen ; Jayna Montana ; Ethan Gaffney ; Sherri English ; Anuradha Joe ; Judy Nelson ; Teresita Sosa ; Lacie England ; Nikhil Swift ; Rich Marmolejo ; Mine Hernandez ; Alo Bailey Jr ; Lonny Rader Other Interventions: Discharge Summary Assessment (RN) Last Done: 11/07/22 13:44
[2022-11-07] MEDS ORDERED: AMOXICILLIN/CLAVULANATE 875 MG TAB PO SCH (17:00)
[2022-11-07] MEDS ORDERED: PANTOprazole 40 MG TAB PO SCH (21:00)
== END 2022-11-07 14:03 | disposition home or self-care (01) | DRG 444 ==
LOC: ED 01:03 → SUATTDRO 05:51 → 2S 05:51
DX: Z79.51 Long term (current) use of inhaled steroids; Z79.01 Long term (current) use of anticoagulants; J96.11 Chronic respiratory failure with hypoxia; E66.9 Obesity, unspecified; I71.40 Abdominal aortic aneurysm, without rupture, unspecified; E78.5 Hyperlipidemia, unspecified; G47.33 Obstructive sleep apnea (adult) (pediatric); K80.42 Calculus of bile duct with acute cholecystitis without obstruction; I16.0 Hypertensive urgency; Z88.8 Allergy status to other drugs, medicaments and biological substances; I16.9 Hypertensive crisis, unspecified; K21.9 Gastro-esophageal reflux disease without esophagitis; R73.9 Hyperglycemia, unspecified; Z87.11 Personal history of peptic ulcer disease; D63.1 Anemia in chronic kidney disease; Z86.73 Personal history of transient ischemic attack (TIA), and cerebral infarction without residual deficits; D50.9 Iron deficiency anemia, unspecified; I35.0 Nonrheumatic aortic (valve) stenosis; Z79.899 Other long term (current) drug therapy; N18.30 Chronic kidney disease, stage 3 unspecified; K31.811 Angiodysplasia of stomach and duodenum with bleeding; M10.9 Gout, unspecified; I12.9 Hypertensive chronic kidney disease with stage 1 through stage 4 chronic kidney disease, or unspecified chronic kidney disease; Z87.891 Personal history of nicotine dependence; I47.1 Supraventricular tachycardia; J44.9 Chronic obstructive pulmonary disease, unspecified; H53.30 Unspecified disorder of binocular vision; Z82.49 Family history of ischemic heart disease and other diseases of the circulatory system; Z79.02 Long term (current) use of antithrombotics/antiplatelets; Z68.30 Body mass index [BMI] 30.0-30.9, adult; Z99.81 Dependence on supplemental oxygen; I35.8 Other nonrheumatic aortic valve disorders; R29.818 Other symptoms and signs involving the nervous system

== ENCOUNTER 2022-11-25 12:43 | Inpatient (IN) ==
[2022-11-25] MEDS ORDERED: ALBUT/IPRATROP 3MG/0.5MG NEB 3 ML VIAL NEB STA ×3 (12:59→22:37)
[2022-11-25] MEDS ORDERED: methylPREDNISolone 125 MG/2 ML VIAL IV STA (12:59)
[2022-11-25] MEDS ORDERED: MoRPHine SULFATE 4 MG/ML 1 ML CARP\\VIAL IV STA (12:59)
--- NOTE | 2022-11-25 13:13 | Emergency Department Note ---
History of Present Illness General Chief Complaint: Shortness of Breath/Dyspnea Stated Complaint: SOB Time Seen by Provider: 11/25/22 12:48 History of Present Illness Provider Complaint: shortness of breath and "asthma attack" Onset (ago): day(s) (2) Severity: moderate Consistency/Duration: + progressively worsening Maximum Pain Intensity: 6 Relieved By: + nothing Exacerbated By: + lying flat and + coughing Known history of: COPD Associated symptoms: + cough, + wheezing, + orthopnea, + abdominal pain (LUQ) and + other (melena); no chest pain, no fever, no sputum production, no hemoptysis, no syncope or no chest congestion Treatment prior to arrival: oxygen and bronchodilator Related Data Home oxygen amount: 2 liters Home Medications Medication Instructions Recorded Confirmed Type atorvastatin 80 mg tablet 80 mg PO QPM 03/25/19 11/25/22 History clopidogrel 75 mg tablet 75 mg PO QAM 03/25/19 11/25/22 History fluticasone propionate 50 2 spray intranasal DAILY 03/25/19 11/25/22 History mcg/actuation nasal spray,suspension cholecalciferol (vitamin D3) 50 2,000 unit PO QAM 06/10/20 11/25/22 History mcg (2,000 unit) capsule (D3-2000) iron,carbonyl 65 mg-vitamin C 125 1 tab PO QAM 12/30/20 11/25/22 History mg tablet,delayed release (Vitron-C) albuterol sulfate 90 mcg/actuation 2 puff inhalation Q4 PRN Wheezing 10/31/21 11/25/22 History aerosol inhaler allopurinol 300 mg tablet 150 mg PO QAM 10/31/21 11/25/22 History metoprolol tartrate 25 mg tablet 12.5 mg PO BID 10/31/21 11/25/22 History ezetimibe 10 mg tablet 10 mg PO QAM 08/04/22 11/25/22 History Oxygen Home #1 ea 08/09/22 10/14/22 Rx apixaban 5 mg tablet 5 mg PO BID 10/11/22 11/25/22 History docusate sodium 100 mg capsule 100 mg PO BID PRN Constipation 10/11/22 11/25/22 History ipratropium 0.5 mg-albuterol 3 mg 3 ml inhalation Q6H PRN Shortness 10/14/22 11/25/22 History (2.5 mg base)/3 mL nebulization Of Breath soln umeclidinium 62.5 mcg-vilanterol 1 inh inhalation DAILY 11/02/22 11/25/22 History 25 mcg/actuation powdr for inhalation (Anoro Ellipta) amlodipine 5 mg tablet (Norvasc) 10 mg PO QAM 30 days #60 tabs 11/07/22 11/25/22 Rx pantoprazole 40 mg tablet,delayed 40 mg PO BID 30 days #60 tabs 11/07/22 3 Rx release sucralfate 100 mg/mL oral 1 g (10 mL) PO QIDM 30 days #1,200 11/07/22 11/25/22 R x suspension mL Allergies Allergy/AdvReac Type Severity Reaction Status Date / Time RUBENS Inhibitors AdvReac Intermediate DROPS Verified 11/25/22 14:56 BLOOD PRESSURE lisinopril AdvReac Intermediate DROPS Verified 11/25/22 14:56 BLOOD PRESSURE Past Med/Surg History Medical History (Updated 11/25/22 @ 20:54 by Vick Cristina MD) Aneurysm CT chest w/o contrast 06/25/22 - 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 Ascending thoracic aorta at the level of the right pulmonary artery 4.2 cm unchanged. 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 Descending thoracic aorta at the level of the left atrium again up to 4.7 cm. Aortic stenosis Thoracic aortic atherosclerosis, densely calcified coronary arteries, severely calcified aortic valve, aneurysmal outpouching of the aortic arch. CKD (chronic kidney disease), stage III follows with [facility] nephrology Gastric ulcer Hearing deficit BL NAILS History of GI bleed Hx of gout Hx SBO Hyperlipidemia Hypertension ANDREW (iron deficiency anemia) Obesity Paroxysmal ventricular tachycardia 19 beat run of ventricular tachycardia via Zio monitoring PFO (patent foramen ovale) per records. follows with Dr. 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 TO HAVE SLIGHT BALANCE ISSUES Surgical History History of esophagogastroduodenoscopy (EGD) History of lumbar surgery 1999 History of tonsillectomy History of tonsillectomy and adenoidectomy History of tooth extraction Hx of colonoscopy Hx of hernia repair lysis of adhesions, incisional hernia repair laparoscopically 01/28/2010 at [facility] - Dr Desouza S/P AAA repair 01/13/2009 - Dr Suazo ([facility]) Family History Other AAA (abdominal aortic aneurysm) Hypertension No family history of adverse response to anesthesia Social History Smoking Status: Former smoker Tobacco Type: Cigarettes Age Started Using Tobacco: ; Cigarettes Per Day: Former cigarette. Quit 1998; Smoking End Date: 1998; Second Hand Exposure: No; Do You Dip or Chew Tobacco: No; Hx Alcohol Use: Yes Alcohol type: beer Alcohol type Comment: 3 beers a day Hx Substance Use: No Preferred Language: Thai Communication Ability: Effective Plastic Dolls Mold Filler Required: No Beliefs That Will Affect Care: None marital status: Current Living Situation: Spouse current occupational status: employed Feels Safe at Home: Yes Safety Concerns: Feels Safe At This Time Assistive Devices: CPAP, Glasses, Hearing Aid - Bilateral and Oxygen - Continuous Physical Exam Vital Signs: Vital Signs - 24 hr 11/25/22 12:59 11/25/22 13:05 11/25/22 13:06 Temperature 36.5 C Temperature Source Oral Pulse Rate 89 Respiratory Rate 20 Blood Pressure 138/78 Blood Pressure Deisi n 98 Pulse Oximetry 100 100 100 Oxygen Delivery Me thod Room Air Room Air Nasal Cannula Oxygen Flow Rate 2 Sepsis Recent Feve r Within 48 Hours No Sepsis New/Unexpla ined Change in Men beverly Status N/A Sepsis Action Take n by Nursing No Action Required 11/25/22 14:19 11/25/22 14:40 11/25/22 14:56 Temperature 37.3 C 37.2 C Temperature Source Oral Oral Pulse Rate 100 H 95 H 93 H Respiratory Rate 18 22 Blood Pressure 109/66 112/68 Blood Pressure Deisi n 80 82 Pulse Oximetry 97 97 Oxygen Delivery Me thod Oxygen Flow Rate 2 Sepsis Recent Feve r Within 48 Hours Sepsis New/Unexpla ined Change in Men beverly Status Sepsis Action Take n by Nursing 11/25/22 15:11 Temperature Temperature Source Pulse Rate 91 H Respiratory Rate 24 Blood Pressure 103/63 Blood Pressure Deisi n 76 Pulse Oximetry 98 Oxygen Delivery Me thod Oxygen Flow Rate Sepsis Recent Feve r Within 48 Hours Sepsis New/Unexpla ined Change in Men beverly Status Sepsis Action Take n by Nursing Physical Exam: Physical Exam HENT: Exam performed. - Head: Normocephalic and atraumatic. EYES: Conjunctivae and EOM are normal. Pupils are equal, round, and reactive to light. Right eye exhibits no discharge. Left eye exhibits no discharge. No scleral icterus. NECK: Normal range of motion. Neck supple. No JVD present. CV: Normal rate, regular rhythm, normal heart sounds and intact distal pulses. There is no peripheral edema. Palpable radial pulses bue. PULM/CHEST: Diffuse expiratory wheezes bilaterally. ABD: The abdomen is soft. There is tenderness to palpation of the left upper quadrant. There is no rebound, no guarding. Rectal: Melanotic stool Hemoccult positive. Course Course 1248: The patient was evaluated in room C8. A complete history and physical exam was performed Cardiac monitoring: An order was placed for continuous cardiac monitoring. The monitor shows a rate of 90 with sinus rhythm interpreted by me 1500: Vital signs stable. Labs show hemoglobin of 6.2 down from 10.1 3 weeks ago. Patient be transfused 2 units packed red blood cells. Patient given Elroy nix bolus and drip. Is thought that the patient's shortness of breath is secondary to his anemia as well as to his COPD. Patient was given DuoNebs and Solu-Medrol in the emergency department. Chest x-ray shows cardiomegaly but no cephalization. Mild elevation of the patient's BNP and troponin. Discussed with [facility] team will evaluate the patient for admission. Administered Medications Albuterol (Albut/Ipratrop 3mg/0.5mg Neb 3 Ml Vial) 3 ml NEB Q4R [facility]; Protocol Stop: 12/25/22 18:59 Last Admin: 11/25/22 19:31 Dose: 3 ml Documented By: CLAY Pantoprazole Sodium 40 mg/ (Dextrose) 100 mls @ 20 mls/hr IV Q5H [facility] Stop: 12/25/22 14:14 Last Admin: 11/25/22 19:29 Dose: 8 mg/hr, 20 mls/hr Documented By: Infusion: 11/25/22 19:29 Dose: 8 mg/hr, 20 mls/hr Documented By: Admin: 11/25/22 14:36 Dose: 8 mg/hr, 20 mls/hr Documented By: BI Metoprolol Tartrate (Metoprolol Tartrate 25 Mg Tab) 12.5 mg PO BID MOLINA Stop: 12/25/22 20:59 Last Admin: 11/25/22 20:16 Dose: 12.5 mg Documented By: CLAY Discontinued Medications Albuterol (Albut/Ipratrop 3mg/0.5mg Neb 3 Ml Vial) 3 ml NEB NOW STA; Protocol Stop: 11/25/22 13:00 Last Admin: 11/25/22 13:24 Dose: 3 ml Documented By: BI Albuterol (Albut/Ipratrop 3mg/0.5mg Neb 3 Ml Vial) 3 ml NEB NOW STA; Protocol Stop: 11/25/22 13:14 Last Admin: 11/25/22 13:24 Dose: 3 ml Documented By: BI Furosemide (Furosemide Inj 20 Mg/2 Ml Vial) 20 mg IV ONE STA Stop: 11/25/22 16:59 Last Admin: 11/25/22 18:03 Dose: 20 mg Documented By: RONNIE Furosemide (Furosemide Inj 20 Mg/2 Ml Vial) 20 mg IV ONE ONE Stop: 11/25/22 16:59 Last Admin: 11/25/22 18:03 Dose: 20 mg Documented By: RONNIE Pantoprazole Sodium (Protonix Bolus/Drip) 0 mls @ 1 mls/hr IV ONE STA Stop: 11/25/22 13:48 Last Admin: 11/25/22 14:44 Dose: Not Given Documented By: BI Pantoprazole Sodium 80 mg/ (Dextrose) 120 mls @ 400 mls/hr IV NOW ONE Stop: 11/25/22 14:04 Last Infusion: 11/25/22 14:30 Dose: 0 mls/hr Documented By: Admin: 11/25/22 14:12 Dose: 400 mls/hr Documented By: BI Methylprednisolone (Methylprednisolone 125 Mg/2 Ml Vial) 125 mg IV NOW STA Stop: 11/25/22 13:00 Last Admin: 11/25/22 13:24 Dose: 125 mg Documented By: ML Morphine Sulfate (Morphine Sulfate 4 Mg/Ml 1 Ml Carp\\Vial) 2 mg IV NOW STA Stop: 11/25/22 13:00 Last Admin: 11/25/22 13:24 Dose: 2 mg Documented By: BI Medical Decision Making Laboratory Data Attestation: I reviewed the patient's lab results. 11/25/22 13:16 11/25/22 13:16 Lab Results 11/25/22 11/25/22 11/25/22 Range/Units 13:16 13:16 13:16 WBC (4.8-10.8) K/ul RBC (4.70-6.10) M/uL Hgb (14.0-18.0) g/dl Hct (42.0-52.0) % MCV (80.0-100.0) fL MCH (25.0-34.0) pg MCHC (32.0-36.0) g/dL RDW Std Deviation (36.4-46.3) fL RDW Coeff of Chaka (11.5-14.5) % Plt Count (130-400) K/uL MPV (9.4-12.4) fL Immature Gran % (Auto) % Neut % (Auto) % Lymph % (Auto) % [place]ima % (Auto) % Eos % (Auto) % Baso % (Auto) % Neut # (Auto) (1.40-6.50) K/uL Lymph # (Auto) (1.2-3.4) K/uL Pima # (Auto) (0.11-0.59) K/uL Eos # (Auto) (0-0.50) K/uL Baso # (Auto) (0-0.2) K/uL Immature Gran # (Auto) (0.01-0.20) K/uL Absolute Nucleated RBC (0-0.12) K/uL Nucleated RBC % (auto) % Polychromasia Anisocytosis PT (9.0-12.0) Seconds INR (0.9-1.1) APTT (21.0-31.0) Seconds PTT Ratio VBG pH 7.37 (7.36-7.41) VBG pCO2 41 (38-50) mmHg VBG pO2 24 mmHg VBG HCO3 24 mmol/L VBG O2 Saturation < 60.0 % VBG Base Excess -1.5 mEq/L Sodium (136-145) mmol/L Potassium (3.5-5.1) mmol/L Chloride (98-107) mmol/L Carbon Dioxide (21-32) mmol/L Anion Gap (3-11) BUN (6-23) mg/dl Creatinine (0.6-1.4) mg/dl Est Cr Clr Drug Dosing ml/min Est GFR ( Amer) ml/min Est GFR (Non-Af Amer) ml/min BUN/Creatinine Ratio (10-20) Glucose (70-99(Fasting)) mg/dl Calcium (8.6-10.3) mg/dl Total Bilirubin (0.2-1.0) mg/dl AST (13-39) U/L ALT (7-52) U/L Alkaline Phosphatase (34-104) U/L Troponin I High Sens (0-20) pg/ml B-Natriuretic Peptide 114 H (0-100) pg/ml Total Protein (6.0-8.3) gm/dl Albumin (3.4-5.0) gm/dl Globulin (2.5-4.0) gm/dl Albumin/Globulin Ratio (0.9-2) Lipase (11-82) U/L SARS-CoV-2, RNA, NAAT (NEGATIVE) Blood Type A Positive Antibody Screen NEGATIVE Crossmatch See Detail 11/25/22 11/25/22 11/25/22 Range/Units 13:16 13:16 13:16 WBC 10.45 (4.8-10.8) K/ul RBC 2.10 L (4.70-6.10) M/uL Hgb 6.2 L* (14.0-18.0) g/dl Hct 20.8 L* (42.0-52.0) % MCV 99.0 (80.0-100.0) fL MCH 29.5 (25.0-34.0) pg MCHC 29.8 L (32.0-36.0) g/dL RDW Std Deviation 68.0 H (36.4-46.3) fL RDW Coeff of Chaka 19.1 H (11.5-14.5) % Plt Count 331 (130-400) K/uL MPV 9.9 (9.4-12.4) fL Immature Gran % (Auto) 0.6 % Neut % (Auto) 61.8 % Lymph % (Auto) 17.7 % Pima % (Auto) 8.4 % Eos % (Auto) 10.4 % Baso % (Auto) 1.1 % Neut # (Auto) 6.46 (1.40-6.50) K/uL Lymph # (Auto) 1.85 (1.2-3.4) K/uL Pima # (Auto) 0.88 H (0.11-0.59) K/uL Eos # (Auto) 1.09 H (0-0.50) K/uL Baso # (Auto) 0.11 (0-0.2) K/uL Immature Gran # (Auto) 0.06 (0.01-0.20) K/uL Absolute Nucleated RBC 0.03 (0-0.12) K/uL Nucleated RBC % (auto) 0.3 % Polychromasia 1+ Anisocytosis Present PT 12.2 H (9.0-12.0) Seconds INR 1.1 (0.9-1.1) APTT 26.1 (21.0-31.0) Seconds PTT Ratio 0.9 VBG pH (7.36-7.41) VBG pCO2 (38-50) mmHg VBG pO2 mmHg VBG HCO3 mmol/L VBG O2 Saturation % VBG Base Excess mEq/L Sodium 139 (136-145) mmol/L Potassium 3.9 (3.5-5.1) mmol/L Chloride 106 (98-107) mmol/L Carbon Dioxide 24 (21-32) mmol/L Anion Gap 9 (3-11) BUN 43 H (6-23) mg/dl Creatinine 2.62 H (0.6-1.4) mg/dl Est Cr Clr Drug Dosing 25.6 ml/min Est GFR ( Amer) 26.7 ml/min Est GFR (Non-Af Amer) 23.0 ml/min BUN/Creatinine Ratio 16.4 (10-20) Glucose 110 H (70-99(Fasting)) mg/dl Calcium 9.0 (8.6-10.3) mg/dl Total Bilirubin 0.3 (0.2-1.0) mg/dl AST 13 (13-39) U/L ALT 9 (7-52) U/L Alkaline Phosphatase 73 (34-104) U/L Troponin I High Sens 35.5 H (0-20) pg/ml B-Natriuretic Peptide (0-100) pg/ml Total Protein 6.5 (6.0-8.3) gm/dl Albumin 3.6 (3.4-5.0) gm/dl Globulin 2.9 (2.5-4.0) gm/dl Albumin/Globulin Ratio 1.2 (0.9-2) Lipase 39 (11-82) U/L SARS-CoV-2, RNA, NAAT (NEGATIVE) Blood Type Antibody Screen Crossmatch 11/25/22 Range/Units 13:30 WBC (4.8-10.8) K/ul RBC (4.70-6.10) M/uL Hgb (14.0-18.0) g/dl Hct (42.0-52.0) % MCV (80.0-100.0) fL MCH (25.0-34.0) pg MCHC (32.0-36.0) g/dL RDW Std Deviation (36.4-46.3) fL RDW Coeff of Chaka (11.5-14.5) % Plt Count (130-400) K/uL MPV (9.4-12.4) fL Immature Gran % (Auto) % Neut % (Auto) % Lymph % (Auto) % Pima % (Auto) % Eos % (Auto) % Baso % (Auto) % Neut # (Auto) (1.40-6.50) K/uL Lymph # (Auto) (1.2-3.4) K/uL Pima # (Auto) (0.11-0.59) K/uL Eos # (Auto) (0-0.50) K/uL Baso # (Auto) (0-0.2) K/uL Immature Gran # (Auto) (0.01-0.20) K/uL Absolute Nucleated RBC (0-0.12) K/uL Nucleated RBC % (auto) % Polychromasia Anisocytosis PT (9.0-12.0) Seconds INR (0.9-1.1) APTT (21.0-31.0) Seconds PTT Ratio VBG pH (7.36-7.41) VBG pCO2 (38-50) mmHg VBG pO2 mmHg VBG HCO3 mmol/L VBG O2 Saturation % VBG Base Excess mEq/L Sodium (136-145) mmol/L Potassium (3.5-5.1) mmol/L Chloride (98-107) mmol/L Carbon Dioxide (21-32) mmol/L Anion Gap (3-11) BUN (6-23) mg/dl Creatinine (0.6-1.4) mg/dl Est Cr Clr Drug Dosing ml/min Est GFR ( Amer) ml/min Est GFR (Non-Af Amer) ml/min BUN/Creatinine Ratio (10-20) Glucose (70-99(Fasting)) mg/dl Calcium (8.6-10.3) mg/dl Total Bilirubin (0.2-1.0) mg/dl AST (13-39) U/L ALT (7-52) U/L Alkaline Phosphatase (34-104) U/L Troponin I High Sens (0-20) pg/ml B-Natriuretic Peptide (0-100) pg/ml Total Protein (6.0-8.3) gm/dl Albumin (3.4-5.0) gm/dl Globulin (2.5-4.0) gm/dl Albumin/Globulin Ratio (0.9-2) Lipase (11-82) U/L SARS-CoV-2, RNA, NAAT NEGATIVE (NEGATIVE) Blood Type Antibody Screen Crossmatch Imaging Data Attestation: I personally reviewed and interpreted this imaging study as follows: My Impression: Chest x-ray: No significant change from the chest x-ray done in October 2022. Radiologist's Impression: Abdomen/Pelvis CT 11/25/22 12:59 CT abd pelvis wo con CLINICAL HISTORY: luq pain TECHNIQUE: Helical axial images of the abdomen and pelvis were obtained. Automated dose lowering techniques and/or adjustment according to patient size were utilized for this exam. This exam was performed without intravenous contrast. CT DOSE: 1132.76 mGy.cm COMPARISON: Comparison is made to CT abdomen pelvis 11/03/2022 FINDINGS: Lower chest: Aortic valvular calcifications incidentally noted. Liver: Unremarkable. No focal lesions are seen. Gallbladder and biliary tree: Stents are seen within the common bile duct and cystic duct. No intra- or extrahepatic biliary ductal dilation. Pancreas: Pancreatic duct stent is seen. Spleen: Unremarkable. Adrenals: Unremarkable. Kidneys and ureters: Unremarkable. Bladder: Unremarkable. Reproductive organs: Unremarkable. Bowel: Diverticulosis is seen without evidence of diverticulitis. The appendix is normal. Metallic densities are seen in the stomach. Lymph nodes Retroperitoneal: Unremarkable. Pelvic: Unremarkable. Mesenteric: Unremarkable. Peritoneum: Normal. Vessels: Extensive atherosclerosis is seen with multiple aneurysms in the infrarenal aorta and bilateral iliac arteries, not significantly changed from prior exam. Abdominal wall: Surgical hardware is seen in the anterior abdominal wall possibly representing hernia repair. hernia is seen containing fat. Bones: Degenerative changes in the visualized spine. Posterior fixation hardware is seen spanning L5-S1. IMPRESSION: 1. Metallic densities are seen in the stomach, new from prior exam, which may represent ingested objects such as metallic clips. No perforation is seen. 2. 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 3. Additional findings as above. ACT 112: Negative or not required by law. Electronically signed by: Kai Alonso M.D. 11/25/2022 2:22 PM Chest X-Ray 11/25/22 13:00 XR chest 1V portable CLINICAL HISTORY: Chest pain, nonspecific TECHNIQUE: Single frontal radiograph of the chest was obtained. Comparison: Comparison is made to chest radiograph 11/02/2022 FINDINGS: No lines and tubes are seen. Cardiomegaly is noted. Scarring is seen in the left upper lung. No evidence of pleural effusion or pneumothorax. IMPRESSION: Left upper lung scarring is unchanged. Otherwise unremarkable. ACT 112: Negative or not required by law. Electronically signed by: Kai Alonso M.D. 11/25/2022 1:47 PM ECG Data Attestation: I personally reviewed and interpreted this ECG as follows: Interpretation: Sinus rhythm with a rate of 90. TN 172 QRS [address] elevation or ST depression. [facility] Narrative 1248: The patient was evaluated in room C8. A complete history and physical exam was performed Cardiac monitoring: An order was placed for continuous cardiac monitoring. The monitor shows a rate of 90 with sinus rhythm interpreted by or 1500: Vital signs stable. Labs show hemoglobin of 6.2 down from 10.1 3 weeks ago. Patient be transfused 2 units packed red blood cells. Patient given Protonix bolus and drip. Is thought that the patient's shortness of breath is secondary to his anemia as well as to his COPD. Patient was given DuoNebs and Solu-Medrol in the emergency department. Chest x-ray shows cardiomegaly but no cephalization. Mild elevation of the patient's BNP and troponin. Discussed with [facility] team will evaluate the patient for admission. Impression & Plan Acute GI bleeding, COPD with exacerbation Critical Care Time Critical Care Time: Yes Total Critical Care Time: 47 I have personally spent greater than 47 minutes of critical care time in the direct management of this patient. This includes bedside care, interpretation of diagnostic studies, and testing, discussion with consultants, patient, and family members, and other required patient management activities. This 47 minutes is in excess of all separately billable procedures. Discharge Plan Visit Data Chief Complaint: Shortness of Breath/Dyspnea Stated Complaint: SOB ED Provider: Vick Cristina Discharge Problem: Acute GI bleeding, COPD with exacerbation Patient Disposition: Admitted As Inpatient Discharge Instructions Interventions: ED Discharge Assessment Last Done: 11/25/22 16:11
[2022-11-25 13:29] LABS: Base Excess VBG -1.5 mEq/L; HCO3 VBG 24 mmol/L; Oxygen Saturation VBG < 60.0 %; PCO2 VBG 41 mmHg (38-50); PO2 VBG 24 mmHg; pH VBG 7.37 (7.36-7.41)
[2022-11-25] MEDS ORDERED: SODIUM CHLORIDE 0.9% 250 ML IV PRN (13:41)
[2022-11-25 13:42] LABS: Hematocrit (blood only) 20.8 % (42.0-52.0); Hemoglobin 6.2 g/dl (14.0-18.0); Mean Corpuscular Hemoglobin 29.5 pg (25.0-34.0); Mean Corpuscular Hgb Conc 29.8 g/dL (32.0-36.0); Mean Platelet Volume 9.9 fL (9.4-12.4); Nucleated RBC # (auto) 0.03 K/uL (0-0.12); Nucleated RBC % (auto) 0.3 %; Platelet Count 331 K/uL (130-400); RDW Coefficient of Variation 19.1 % (11.5-14.5); White Blood Count 10.45 K/ul (4.8-10.8)
[2022-11-25] MEDS ORDERED: PANTOprazole 80 MG in DEXTROSE 5% 100 ML IV ONE (13:47)
[2022-11-25] MEDS ORDERED: PANTOPRAZOLE BOLUS/DRIP 1 EACH IV STA (13:47)
--- NOTE | 2022-11-25 13:50 | XRay Report ---
XR chest 1V portable CLINICAL HISTORY: Chest pain, nonspecific TECHNIQUE: Single frontal radiograph of the chest was obtained. Comparison: Comparison is made to chest radiograph 11/02/2022 FINDINGS: No lines and tubes are seen. Cardiomegaly is noted. Scarring is seen in the left upper lung. No evide nce of pleural effusion or pneumothorax. IMPRESSION: Left upper lung scarring is unchanged. Otherwise unremarkable. ACT 112: Negative or not required by law. Electronically signed by: Kai Alonso M.D. 11/25/2022 1:47 PM
[2022-11-25 13:56] LABS: Anisocytosis Present; Basophils # (auto) 0.11 K/uL (0-0.2); Basophils % (auto) 1.1 %; Eosinophils # (auto) 1.09 K/uL (0-0.50); Eosinophils % (auto) 10.4 %; Immature Granulocytes # (auto) 0.06 K/uL (0.01-0.20); Immature Granulocytes % (auto) 0.6 %; Lymphocytes # (auto) 1.85 K/uL (1.2-3.4); Lymphocytes % (auto) 17.7 %; Monocytes # (auto) 0.88 K/uL (0.11-0.59); Monocytes % (auto) 8.4 %; Neutrophils # (auto) 6.46 K/uL (1.40-6.50); Neutrophils % (auto) 61.8 %; Polychromasia 1+
[2022-11-25 14:02] LABS: Albumin Level 3.6 gm/dl (3.4-5.0); Bilirubin,Total 0.3 mg/dl (0.2-1.0); Potassium 3.9 mmol/L (3.5-5.1)
[2022-11-25 14:04] LABS: INR 1.1 (0.9-1.1); Partial Thromboplastin Ratio 0.9; Partial Thromboplastin Time 26.1 Seconds (21.0-31.0); Prothrombin Time 12.2 Seconds (9.0-12.0)
[2022-11-25 14:08] LABS: Albumin Globulin Ratio 1.2 (0.9-2); BUN Creatinine Ratio 16.4 (10-20); Creatinine Clr Calc Pharmacy 25.6 ml/min; Est GFR (African American) 26.7 ml/min; Globulin 2.9 gm/dl (2.5-4.0); Total Protein 6.5 gm/dl (6.0-8.3)
[2022-11-25 14:09] LABS: Troponin I High Sensitivity 35.5 pg/ml (0-20)
--- NOTE | 2022-11-25 14:24 | CT Scan Report ---
CT abd pelvis wo con CLINICAL HISTORY: luq pain TECHNIQUE: Helical axial images of the abdomen and pelvis were obtained. Automated dose lowering tech niques and/or adjustment according to patient size were utilized for this exam. This exam was perfor med without intravenous contrast. CT DOSE: 1132.76 mGy.cm COMPARISON: Comparison is made to CT abdomen pelvis 11/03/2022 FINDINGS: Lower chest: Aortic valvular calcifications incidentally noted. Liver: Unremarkable. No focal lesions are seen. Gallbladder and biliary tree: Stents are seen within the common bile duct and cystic duct. No intra- or extrahepatic biliary ductal dilation. Pancreas: Pancreatic duct stent is seen. Spleen: Unremarkable. Adrenals: Unremarkable. Kidneys and ureters: Unremarkable. Bladder: Unremarkable. Reproductive organs: Unremarkable. Bowel: Diverticulosis is seen without evidence of diverticulitis. The appendix is normal. Metallic de nsities are seen in the stomach. Lymph nodes Retroperitoneal: Unremarkable. Pelvic: Unremarkable. Mesenteric: Unremarkable. Peritoneum: Normal. Vessels: Extensive atherosclerosis is seen with multiple aneurysms in the infrarenal aorta and bilate ral iliac arteries, not significantly changed from prior exam. Abdominal wall: Surgical hardware is seen in the anterior abdominal wall possibly representing hernia repair. hernia is seen containing fat. Bones: Degenerative changes in the visualized spine. Posterior fixation hardware is seen spanning L5- S1. IMPRESSION: 1. Metallic densities are seen in the stomach, new from prior exam, which may represent ingested obj ects such as metallic clips. No perforation is seen. 2. 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 3. Additional findings as above. ACT 112: Negative or not required by law. Electronically signed by: Kai Alonso M.D. 11/25/2022 2:22 PM
[2022-11-25] MEDS: PANTOprazole 40 MG in DEXTROSE 5% 100 ML IV SCH ×2 (14:36→19:29)
--- NOTE | 2022-11-25 14:46 | History & Physical Report ---
Date of Service November 25, 2022 Assessment & Plan (1) Melena: (2) Anemia due to chronic kidney disease: (3) Acute kidney injury superimposed on chronic kidney disease: (4) COPD (chronic obstructive pulmonary disease): (5) ANDREW (iron deficiency anemia): (6) Recurrent cerebrovascular accidents (CVAs): (7) Aortic stenosis: (8) History of GI bleed: (9) Hypertension: (10) Hyperlipidemia: (11) Sleep apnea: Plan This is a 72yo M with a PMH of chronic respiratory failure secondary to COPD on home O2, GINNY/nocturnal hypoxemia on CPAP, history PSVT, valvular heart disease (severe , mild AR), history TAA, AAA status post surgery, 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 Recently admitted from 11/02-11/07 for N/V, acute cholecystitis and acute on chronic melanotic GI bleed on anticoagulation. Underwent EGD/EUS/ERCP with removal of CBD stone, transpapillary gallbladder stenting for decompression by Dr. England with plans for repeat ERCP in 3 months at [facility] to remove the stents and place EUS guided GB drainage using Axios stent. 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 COPD diagnosis awaiting PFTs Has seen Dr Batres in clinic, determining etiology of resp failure as pulm vs cardiac. Awaiting PFTs once aortic valve has been replaced Patient at resp baseline saturating 98% on 2L NC Received 125mg solu-medrol in ED today- will hold off on additional steroids until evaluated in AM given GI bleeding. Continue Duonebs Q4H, home inh, adding antitussive CPAP HS MAGDALENO superimposed on CKD Cr 2.62 today (baseline ~ 2.1), appears euvolemic to slightly overloaded on exam. Given 40mg IV lasix in between units of prbc as above BNP 114 Trop elevation In setting of GI bleeding, CKD. No chest pain or acute EKG changes. 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 These findings are new from 2009. Follow-up with vascular surgery is advised. 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 Needs follow-up with vascular surgery as able H/O PSVT Valvular heart disease (severe , mild AR) Was planned to be evaluated by [facility] CT surgery as per records Continue Metoprolol, monitor volume status closely Hyperlipidemia Chronic, stable. On statin H/O Waldenstrom macroglobulinemia Past tobacco abuse As per records DVT Ppx: SCDs given GI bleed Code status: FULL PCP: Thee Dispo: Admitted to PCU Patient seen in collaboration with Dr. Simpson. Please see addendum. History of Present Illness Chief Complaint: SOB, melena Primary Care Provider: Jairo Kingston MD This is a 72yo M with a PMH of chronic respiratory failure secondary to COPD on home O2, GINNY/nocturnal hypoxemia on CPAP, history PSVT, valvular heart disease (severe , mild AR), history TAA, AAA status post surgery, 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 Recently admitted from 11/02-11/07 for N/V, acute cholecystitis and acute on chronic melanotic GI bleed on anticoagulation. Underwent EGD/EUS/ERCP with removal of CBD stone, transpapillary gallbladder stenting for decompression by Dr. England with plans for repeat ERCP in 3 months at [facility] to remove the stents and place EUS guided GB drainage using Axios stent. Hgb 7.8 and underwent 2u prbc transfusion with symptomatic improvement. Apixiban and plavix held for 3 days before resuming. Gen surg evaluated for cholecystectomy but did not pursue due to extensive medical comorbidities. First noted black bowel movement 8 days ago at home and has had approximately 1/day. Denies any bright red blood or blood in toilet bowl. Over the past few days, patient with progressively worsening shortness of breath, although admits to having shortness of breath at baseline. Has maintained on his 2 L O2 baseline. Some wheezing and some increased mucus production and coughing although feeling better in ED. Soreness in his ribs from coughing. Endorsing some swelling in feet that is painful. Did not take any meds this morning besides inhaler. Was evaluated by Dr. Batres a few months back for questionable COPD although no PFTs on file. Pulm waiting on aortic valve replacement till patient is a candidate for PFTs. Allergies Allergy/AdvReac Type Severity Reaction Status Date / Time RUBENS Inhibitors AdvReac Intermediate DROPS Verified 11/25/22 14:56 BLOOD PRESSURE lisinopril AdvReac Intermediate DROPS Verified 11/25/22 14:56 BLOOD PRESSURE Home Medications Medication Instructions Recorded Confirmed Type atorvastatin 80 mg tablet 80 mg PO QPM 03/25/19 11/25/22 History clopidogrel 75 mg tablet 75 mg PO QAM 03/25/19 11/25/22 History fluticasone propionate 50 2 spray intranasal DAILY 03/25/19 11/25/22 History mcg/actuation nasal spray,suspension cholecalciferol (vitamin D3) 50 2,000 unit PO QAM 06/10/20 11/25/22 History mcg (2,000 unit) capsule (D3-2000) iron,carbonyl 65 mg-vitamin C 125 1 tab PO QAM 12/30/20 11/25/22 History mg tablet,delayed release (Vitron-C) albuterol sulfate 90 mcg/actuation 2 puff inhalation Q4 PRN Wheezing 10/31/21 11/25/22 History aerosol inhaler allopurinol 300 mg tablet 150 mg PO QAM 10/31/21 11/25/22 History metoprolol tartrate 25 mg tablet 12.5 mg PO BID 10/31/21 11/25/22 History ezetimibe 10 mg tablet 10 mg PO QAM 08/04/22 11/25/22 History Oxygen Home #1 ea 08/09/22 10/14/22 Rx apixaban 5 mg tablet 5 mg PO BID 10/11/22 11/25/22 History docusate sodium 100 mg capsule 100 mg PO BID PRN Constipation 10/11/22 11/25/22 History ipratropium 0.5 mg-albuterol 3 mg 3 ml inhalation Q6H PRN Shortness 10/14/22 11/25/22 History (2.5 mg base)/3 mL nebulization Of Breath soln umeclidinium 62.5 mcg-vilanterol 1 inh inhalation DAILY 11/02/22 11/25/22 History 25 mcg/actuation powdr for inhalation (Anoro Ellipta) amlodipine 5 mg tablet (Norvasc) 10 mg PO QAM 30 days #60 tabs 11/07/22 11/25/22 Rx pantoprazole 40 mg tablet,delayed 40 mg PO BID 30 days #60 tabs 11/07/22 11/25/22 Rx release sucralfate 100 mg/mL oral 1 g (10 mL) PO QIDM 30 days #1,200 11/07/22 11/25/22 Rx suspension mL Past Med/Surg History Medical History (Updated 11/25/22 @ 20:54 by Vick Cristina MD) Aneurysm CT chest w/o contrast 06/25/22 - 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 Ascending thoracic aorta at the level of the right pulmonary artery 4.2 cm unchanged. 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 Descending thoracic aorta at the level of the left atrium again up to 4.7 cm. Aortic stenosis Thoracic aortic atherosclerosis, densely calcified coronary arteries, severely calcified aortic valve, aneurysmal outpouching of the aortic arch. CKD (chronic kidney disease), stage III follows with S nephrology Gastric ulcer Hearing deficit BL NAILS History of GI bleed Hx of gout Hx SBO Hyperlipidemia Hypertension ANDREW (iron deficiency anemia) Obesity Paroxysmal ventricular tachycardia 19 beat run of ventricular tachycardia via Zio monitoring PFO (patent foramen ovale) per records. follows with Dr. 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 TO HAVE SLIGHT BALANCE ISSUES Surgical History History of esophagogastroduodenoscopy (EGD) History of lumbar surgery 1999 History of tonsillectomy History of tonsillectomy and adenoidectomy History of tooth extraction Hx of colonoscopy Hx of hernia repair lysis of adhesions, incisional hernia repair laparoscopically 01/28/2010 at [facility] - Dr Desouza S/P AAA repair 01/13/2009 - Dr Suazo ([facility] AT [facility]) Family History Other AAA (abdominal aortic aneurysm) Hypertension No family history of adverse response to anesthesia Social History Smoking Status: Former smoker Tobacco Type: Cigarettes Age Started Using Tobacco: ; Cigarettes Per Day: Former cigarette. Quit 1998; Smoking End Date: 1998; Second Hand Exposure: No; Do You Dip or Chew Tobacco: No; Hx Alcohol Use: Yes Alcohol type: beer Alcohol type Comment: 3 beers a day Hx Substance Use: No Preferred Language: [place] Citizen Communication Ability: Effective Sample Grinder Required: No Beliefs That Will Affect Care: None marital status: Current Living Situation: Spouse current occupational status: employed Feels Safe at Home: Yes Safety Concerns: Feels Safe At This Time Assistive Devices: CPAP, Glasses, Hearing Aid - Bilateral and Oxygen - Continuous Review of Systems Review of Systems: At least ten systems reviewed and negative except as noted in the HPI. Physical Exam Physical Exam: General Appearance: WD/WN, vitals as above, NAD, sitting up in bed, pleasant, appears chronically ill Head: normocephalic, atraumatic Eyes: normal inspection, PERRL, conjunctivae normal, anicteric sclerae ENT: external ear and nose normal, oropharynx normal Neck: normal visual inspection, trachea midline, no thyromegaly Respiratory: normal respiratory effort, diffuse wheezes on exam. No accessory muscle use Cardiovascular: regular rate, rhythm, no murmur, normal peripheral pulses, no BLE edema. Vessels: no JVD Chest: normal inspection of chest Abdomen/GI: normal bowel sounds, soft, nontender, no hepatosplenomegaly Extremities/Musculoskeletal: no cyanosis or clubbing, extremities motor strength 5/5 Neurologic: PERRL, EOMI, accommodation nl, no face palsy, no dysarthria, CN's II-XI intact bilaterally and moves all extremities Psychiatric: A+Ox3, euthymic affect Skin: no rashes, + pale, warm/dry Results & Data Results & Data Vital Signs (Past 12 Hours) Vital Signs Temp Pulse Resp BP Pulse Ox O2 Del Method O2 Flow Rate 11/25/22 14:40 37.3 C 95 H 18 109/66 97 2 11/25/22 14:19 100 H 11/25/22 13:06 100 Nasal Cannula 2 11/25/22 13:05 100 Room Air 11/25/22 12:59 36.5 C 89 20 138/78 100 Room Air Laboratory Results Short CBC 11/25/22 Range/Units 13:16 WBC 10.45 (4.8-10.8) K/ul Hgb 6.2 L* (14.0-18.0) g/dl Hct 20.8 L* (42.0-52.0) % Plt Count 331 (130-400) K/uL BMP 11/25/22 13:16 Sodium 139 Potassium 3.9 Chloride 106 Carbon Dioxide 24 BUN 43 H Creatinine 2.62 H Glucose 110 H Calcium 9.0 Liver Function 11/25/22 Range/Units 13:16 Total Bilirubin 0.3 (0.2-1.0) mg/dl AST 13 (13-39) U/L ALT 9 (7-52) U/L Alkaline Phosphatase 73 (34-104) U/L Albumin 3.6 (3.4-5.0) gm/dl Diagnostic Findings Abdomen/Pelvis CT 11/25/22 12:59 CT abd pelvis wo con CLINICAL HISTORY: luq pain TECHNIQUE: Helical axial images of the abdomen and pelvis were obtained. Automated dose lowering techniques and/or adjustment according to patient size were utilized for this exam. This exam was performed without intravenous contrast. CT DOSE: 1132.76 mGy.cm COMPARISON: Comparison is made to CT abdomen pelvis 11/03/2022 FINDINGS: Lower chest: Aortic valvular calcifications incidentally noted. Liver: Unremarkable. No focal lesions are seen. Gallbladder and biliary tree: Stents are seen within the common bile duct and cystic duct. No intra- or extrahepatic biliary ductal dilation. Pancreas: Pancreatic duct stent is seen. Spleen: Unremarkable. Adrenals: Unremarkable. Kidneys and ureters: Unremarkable. Bladder: Unremarkable. Reproductive organs: Unremarkable. Bowel: Diverticulosis is seen without evidence of diverticulitis. The appendix is normal. Metallic densities are seen in the stomach. Lymph nodes Retroperitoneal: Unremarkable. Pelvic: Unremarkable. Mesenteric: Unremarkable. Peritoneum: Normal. Vessels: Extensive atherosclerosis is seen with multiple aneurysms in the infrarenal aorta and bilateral iliac arteries, not significantly changed from prior exam. Abdominal wall: Surgical hardware is seen in the anterior abdominal wall possibly representing hernia repair. hernia is seen containing fat. Bones: Degenerative changes in the visualized spine. Posterior fixation hardware is seen spanning L5-S1. IMPRESSION: 1. Metallic densities are seen in the stomach, new from prior exam, which may represent ingested objects such as metallic clips. No perforation is seen. 2. 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 3. Additional findings as above. ACT 112: Negative or not required by law. Electronically signed by: Kai Alonso M.D. 11/25/2022 2:22 PM Chest X-Ray 11/25/22 13:00 XR chest 1V portable CLINICAL HISTORY: Chest pain, nonspecific TECHNIQUE: Single frontal radiograph of the chest was obtained. Comparison: Comparison is made to chest radiograph 11/02/2022 FINDINGS: No lines and tubes are seen. Cardiomegaly is noted. Scarring is seen in the left upper lung. No evidence of pleural effusion or pneumothorax. IMPRESSION: Left upper lung scarring is unchanged. Otherwise unremarkable. ACT 112: Negative or not required by law. Electronically signed by: Kai Alonso M.D. 11/25/2022 1:47 PM ECG Additional Comments: EKG reviewed: Normal sinus rhythm Nonspecific ST abnormality Prolonged QT Supervising Physician Co-Signing Physician Notes Pt seen and examined by myself, Jessy Simpson MD on the day of service. Care was coordinated with Shalonda Avery PA-C. Please refer to her note for additional information. 72yoM with significant cardiac hx admitted with an anemia requiring transfusion after having black stools at home. Pt with wheezing on exam. Hold home anticoagulation, continue home inhalers. Will defer on further IV steroids in setting of GI bleed. GI consult. Otherwise as above.
[2022-11-25] MEDS ORDERED: ACETAMINOPHEN 325 MG TAB PO PRN (16:55)
[2022-11-25] MEDS ORDERED: FUROSEMIDE INJ 20 MG/2 ML VIAL IV ONE (16:58)
[2022-11-25] MEDS ORDERED: FUROSEMIDE INJ 20 MG/2 ML VIAL IV STA (16:58)
--- NOTE | 2022-11-25 17:04 | Electrocardiogram Report ---
Test Reason : Blood Pressure : / mmHG Vent. Rate : 090 BPM Atrial Rate : 090 BPM P-R Int : 172 ms QRS Dur : 094 ms QT Int : 408 ms P-R-T Axes : 037 028 041 degrees QTc Int : 499 ms Normal sinus rhythm Nonspecific ST abnormality Prolonged QT Abnormal ECG When compared with ECG of 02-NOV-2022 01:23, WA interval has decreased Confirmed by Robby Mccoy ([id number]) on 11/25/2022 5:03:43 PM Referred By: Confirmed By:Uriel Mccoy
[2022-11-25] MEDS ORDERED: MoRPHine SULFATE 2 MG/ML CARP IV STA (18:01)
[2022-11-25] MEDS ORDERED: ALBUTEROL HFA 8 GM INHALER INH PRN (18:42)
[2022-11-25] MEDS ORDERED: guaiFENesin SUGAR FREE 100 MG/5 ML UDC PO PRN (18:44)
[2022-11-25] MEDS: ALBUT/IPRATROP 3MG/0.5MG NEB 3 ML VIAL NEB SCH ×2 (19:31→22:36)
[2022-11-25] MEDS: METOPROLOL TARTRATE 25 MG TAB PO SCH (20:16)
[2022-11-25 22:00] LABS: Hematocrit (blood only) 25.7 % (42.0-52.0); Hemoglobin 8.4 g/dl (14.0-18.0)
[2022-11-25 22:07] LABS: Troponin I High Sensitivity 26.4 pg/ml (0-20)
[2022-11-25] MEDS ORDERED: MAGNESIUM SULFATE / D5W 1 GM/100 ML BAG IV ONE (22:37)
[2022-11-25] MEDS ORDERED: methylPREDNISolone 20 MG in SYRINGE 0 ML IV STA (22:41)
[2022-11-25 23:00] LABS: Magnesium 1.9 mg/dl (1.7-2.4)
[2022-11-25 23:12] LABS: Base Excess ABG -4.1 mEq/L (-9-1.8); HCO3 ABG 20 mmol/L (19-24); Oxygen Saturation ABG 99.2 % (90-95); PCO2 ABG 33 mmHg (35-46); PO2 ABG 117 mmHg (80-95); pH ABG 7.39 (7.35-7.45)
[2022-11-25 23:13] LABS: Allen Test POS (Pos)
[2022-11-26] MEDS: PANTOprazole 40 MG in DEXTROSE 5% 100 ML IV SCH ×5 (00:06→21:08)
[2022-11-26 01:25] LABS: Hematocrit (blood only) 26.5 % (42.0-52.0); Hemoglobin 8.5 g/dl (14.0-18.0); Mean Corpuscular Hemoglobin 30.4 pg (25.0-34.0); Mean Corpuscular Hgb Conc 32.1 g/dL (32.0-36.0); Mean Corpuscular Volume 94.6 fL (80.0-100.0); Mean Platelet Volume 10.1 fL (9.4-12.4); Nucleated RBC # (auto) 0.02 K/uL (0-0.12); Nucleated RBC % (auto) 0.2 %; Platelet Count 311 K/uL (130-400); RDW Coefficient of Variation 18.7 % (11.5-14.5); RDW Standard Deviation 62.4 fL (36.4-46.3); White Blood Count 8.46 K/ul (4.8-10.8)
[2022-11-26 01:31] LABS: BUN Creatinine Ratio 16.3 (10-20); Calcium 8.8 mg/dl (8.6-10.3); Creatinine Clr Calc Pharmacy 25.7 ml/min; Est GFR (African American) 27.3 ml/min; Est GFR (Non-African American) 23.6 ml/min
[2022-11-26] MEDS ORDERED: INSULIN HUMAN REGULAR PER UNIT 5 UNITS in SYRINGE 4.95 ML IV STA (01:41)
[2022-11-26] MEDS: ALBUT/IPRATROP 3MG/0.5MG NEB 3 ML VIAL NEB SCH ×6 (02:32→22:42)
--- NOTE | 2022-11-26 06:48 | XRay Report ---
SINGLE VIEW CHEST CLINICAL HISTORY: Dyspnea. FINDINGS: 2 AP, portable, upright chest radiographs are compared to study earlier the same day 023 and correlated with chest CT dated 11/03/2022. The heart is enlarged noting atherosclerotic calcif ication and aneurysmal dilatation of the ascending thoracic aorta. The pulmonary vasculature is nonco ngested. Emphysema and chronic interstitial thickening is similar to previous. No airspace consolidat ion typical for pneumonia or pleural effusion is identified. Foci of parenchymal scarring in the left upper lung are similar to previous. No pneumothorax is seen. The skeletal structures are osteopenic. The bony thorax is grossly intact. Arthritic change is seen in the right shoulder. Surgical clips pr oject over the upper abdomen. A catheter projects over the right upper quadrant of the abdomen. IMPRESSION: 1. Cardiomegaly and emphysema with no acute cardiopulmonary abnormality identified. No change from to day's earlier study. 2. Chronic parenchymal changes as above. ACT 112: Negative or not required by law. Electronically signed by: Osmany George M.D. 11/26/2022 6:46 AM
[2022-11-26] MEDS: FERROUS SULFATE 325 MG TAB PO SCH (08:37)
[2022-11-26] MEDS: ASCORBIC ACID 500 MG TAB PO SCH (08:37)
[2022-11-26] MEDS: amLODIPine BESYLATE 5 MG TAB PO SCH (08:38)
[2022-11-26] MEDS: FLUTICASONE PROPIONATE NA SPR 16 GM BTL NAE SCH (08:38)
[2022-11-26] MEDS: METOPROLOL TARTRATE 25 MG TAB PO SCH ×2 (08:39→19:44)
[2022-11-26] MEDS: UMECLIDINIUM/VILANTEROL 62.5/25MCG 7 PUFFS/INHALER INH SCH (08:40)
[2022-11-26] MEDS ORDERED: PHARMACY GLYCEMIC MGMT CONSULT PRN (08:55)
[2022-11-26] MEDS ORDERED: CARBOHYDRATES FOR HYPOGLYCEMIA PO PRN (08:56)
[2022-11-26] MEDS ORDERED: GLUCAGON FOR INJ 1 MG VIAL SQ PRN (08:56)
[2022-11-26] MEDS ORDERED: DEXTROSE 50% 50 ML SYRINGE IV PRN (08:56)
[2022-11-26] MEDS ORDERED: GLUCOSE 10 TAB/TUBE PO PRN (08:56)
[2022-11-26] MEDS ORDERED: GLUCOSE 40% GEL 15 GM TUBE PO PRN (08:56)
--- NOTE | 2022-11-26 08:59 | Gastrointestinal Consultation ---
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 England with plans for repeat ERCP in 3 months at [facility] to remove the stents and place EUS guided GB drainage using Axios stent admitted dark stools, anemia s/p 2 units RBC. NPO EGD in the OR Trend H&H Monitor and document GI output Transfuse PRN Hold ASA, NSAIDs Hold apixaban Hold plavix Continue PPI drip We appreciate assistance in the management of any serological abnormality and corrections to include: hemoglobin >7, INR <2, platelets >50,000, potassium levels >3.5 but <5.3, and sodium levels within 5 points of the reference range prior to endoscopic evaluation. Thank you for allowing us to participate in the care of this patient. Please call with any acute changes, questions or concerns. Please see addendum below with additional recommendation from my supervising physician. Supervising Physician Co-Signing Physician Notes I saw and evaluated the patient prior we were consulted with regard to upper gastrointestinal bleeding, of note the patient did have a recent ERCP performed by my partner and is on antiplatelet agents into addition to anticoagulation. The patient notes that he is feeling improved today and is not having any hematemesis or coffee-ground emesis. Physical examination Pallor of skin noted No scleral icterus noted No abdominal pain noted Impression: Patient presents with suspected upper gastrointestinal bleeding, I suspect this is related to the patient's ongoing antiplatelet and anticoagulation use. We will proceed with upper endoscopy as the patient could have peptic ulcer disease or perhaps even bleeding from his recent sphincterotomy. We discussed the risks and benefits of upper endoscopy in addition to ERCP if needed, these risks include bleeding infection perforation pain failed biliary cannulation and need for follow-up studies. 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 England with plans for repeat ERCP in 3 months at [facility] to remove the stents and place EUS guided GB drainage using Axios stent admitted dark stools. Pt was seen and evaluated, chart reviewed. Notes that he has had 1-2 episodes of dark tarry stools since he was discharged. No BRBPR. Linh abd pain, nausea, vomiting. No fever, chills, CP, SOB. HGB 10 --> 6.2 --> 2 units --> 8.5 BUN 42 INSPECTOR WEIGHTS AND MEASURES 2.57 CTAP 2022: Metallic densities are seen in the stomach, new from prior exam, which may represent ingested objects such as metallic clips. No perforation is seen. 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 Additional findings as above. EGD 2022: - Normal esophagus. 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 Treated with argon plasma coagulation (APC). Clips (MR conditional) were placed. . - Normal duodenal bulb and second portion of the duodenum. - No specimens collected. EUS 2022: There was no sign of significant pathology in the ampulla. - There was dilation in the common bile duct which measured up to 9 mm. - One stone was visualized endosonographically in the common bile duct. - Multiple stones were visualized endosonographically in the gallbladder. - There was no evidence of significant pathology in the visualized portion of the liver. - There was no sign of significant pathology in the entire pancreas. - Endosonographic images of the left adrenal gland were unremarkable. - The celiac trunk was endosonographically normal. ERCP 2022: - Choledocholithiasis was found. Complete removal was accomplished by biliary sphincterotomy and balloon extraction. - One plastic pancreatic stent was placed into the ventral pancreatic duct. - One plastic biliary stent was placed into the common bile duct. - One transpapillary plastic biliary stent was placed into the gallbladder. Allergies Allergy/AdvReac Type Severity Reaction Status Date / Time RUBENS Inhibitors AdvReac Intermediate DROPS Verified 11/25/22 14:56 BLOOD PRESSURE lisinopril AdvReac Intermediate DROPS Verified 11/25/22 14:56 BLOOD PRESSURE Home Medications Medication Instructions Recorded Confirmed Type atorvastatin 80 mg tablet 80 mg PO QPM 03/25/19 11/25/22 History clopidogrel 75 mg tablet 75 mg PO QAM 03/25/19 11/25/22 History fluticasone propionate 50 2 spray intranasal DAILY 03/25/19 11/25/22 History mcg/actuation nasal spray,suspension cholecalciferol (vitamin D3) 50 2,000 unit PO QAM 06/10/20 11/25/22 History mcg (2,000 unit) capsule (D3-2000) iron,carbonyl 65 mg-vitamin C 125 1 tab PO QAM 12/30/20 11/25/22 History mg tablet,delayed release (Vitron-C) albuterol sulfate 90 mcg/actuation 2 puff inhalation Q4 PRN Wheezing 10/31/21 11/25/22 History aerosol inhaler allopurinol 300 mg tablet 150 mg PO QAM 10/31/21 11/25/22 History metoprolol tartrate 25 mg tablet 12.5 mg PO BID 10/31/21 11/25/22 History ezetimibe 10 mg tablet 10 mg PO QAM 08/04/22 11/25/22 History Oxygen Home #1 ea 08/09/22 10/14/22 Rx apixaban 5 mg tablet 5 mg PO BID 10/11/22 11/25/22 History docusate sodium 100 mg capsule 100 mg PO BID PRN Constipation 10/11/22 11/25/22 History ipratropium 0.5 mg-albuterol 3 mg 3 ml inhalation Q6H PRN Shortness 10/14/22 11/25/22 History (2.5 mg base)/3 mL nebulization Of Breath soln umeclidinium 62.5 mcg-vilanterol 1 inh inhalation DAILY 11/02/22 11/25/22 History 25 mcg/actuation powdr for inhalation (Anoro Ellipta) amlodipine 5 mg tablet (Norvasc) 10 mg PO QAM 30 days #60 tabs 11/07/22 11/25/22 Rx pantoprazole 40 mg tablet,delayed 40 mg PO BID 30 days #60 tabs 11/07/22 11/25/22 Rx release sucralfate 100 mg/mL oral 1 g (10 mL) PO QIDM 30 days #1,200 11/07/22 11/25/22 Rx suspension mL Patient History Medical History (Updated 11/25/22 @ 20:54 by Vick Cristina MD) Aneurysm CT chest w/o contrast 06/25/22 - 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 Ascending thoracic aorta at the level of the right pulmonary artery 4.2 cm unchanged. 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 Descending thoracic aorta at the level of the left atrium again up to 4.7 cm. Aortic stenosis Thoracic aortic atherosclerosis, densely calcified coronary arteries, severely calcified aortic valve, aneurysmal outpouching of the aortic arch. CKD (chronic kidney disease), stage III follows with [facility] nephrology Gastric ulcer Hearing deficit BL NAILS History of GI bleed Hx of gout Hx SBO Hyperlipidemia Hypertension ANDREW (iron deficiency anemia) Obesity Paroxysmal ventricular tachycardia 19 beat run of ventricular tachycardia via Zio monitoring PFO (patent foramen ovale) per records. follows with Dr. 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 TO HAVE SLIGHT BALANCE ISSUES Surgical History History of esophagogastroduodenoscopy (EGD) History of lumbar surgery 1999 History of tonsillectomy History of tonsillectomy and adenoidectomy History of tooth extraction Hx of colonoscopy Hx of hernia repair lysis of adhesions, incisional hernia repair laparoscopically 01/28/2010 at [facility] - Dr Desouza S/P AAA repair 01/13/2009 - Dr Suazo ([facility] AT [facility]) Family History Other AAA (abdominal aortic aneurysm) Hypertension No family history of adverse response to anesthesia Social History Smoking Status: Former smoker Tobacco Type: Cigarettes Age Started Using Tobacco: 18; Cigarettes Per Day: Former cigarette. Quit 1998; Smoking End Date: 1998; Second Hand Exposure: No; Do You Dip or Chew Tobacco: No; Hx Alcohol Use: Yes Alcohol type: beer Alcohol type Comment: 3 beers a day Hx Substance Use: No Preferred Language: Cameroonian Communication Ability: Effective Safety Assistant Required: No Beliefs That Will Affect Care: None marital status: Current Living Situation: Spouse current occupational status: employed Feels Safe at Home: Yes Safety Concerns: Feels Safe At This Time Assistive Devices: CPAP and Oxygen - Continuous Review of Systems Review of Systems: All systems reviewed & are unremarkable except as noted in HPI & below Physical Exam Constitutional: WD/WN, vitals as above Respiratory: normal respiratory effort, lungs clear to auscultation Cardiovascular: Rate/Rhythm: regular rate and regular rhythm Chest (Breasts): normal inspection/palpation of breasts Skin: no rashes, warm and dry Results & Data Vital Signs (Past 12 Hours) Vital Signs Temp Pulse Pulse Resp BP BP Pulse Ox 11/26/22 08:00 36.2 C L 91 H 18 131/66 98 11/26/22 07:53 86 11/26/22 07:34 17 11/26/22 03:00 36.3 C L 87 20 135/79 99 11/26/22 02:35 83 29 H 98 11/26/22 02:34 83 20 98 11/25/22 23:02 81 11/25/22 22:39 78 100 11/25/22 22:37 78 15 100 11/25/22 22:28 36.7 C 84 18 152/83 H 98 11/25/22 21:06 83 22 96 11/25/22 20:54 36.8 C 82 14 148/71 H 99 O2 Del Method O2 Flow Rate 11/26/22 08:00 Nasal Cannula 2 11/26/22 07:53 11/26/22 07:34 Nasal Cannula 2 11/26/22 03:00 CPAP 11/26/22 02:35 2 11/26/22 02:34 CPAP 2 11/25/22 23:02 11/25/22 22:39 2 11/25/22 22:37 CPAP 2 11/25/22 22:28 CPAP 2 11/25/22 21:06 2 11/25/22 20:54 2 Laboratory Results 11/26/22 11/26/22 11/26/22 Range/Units 00:55 00:55 00:55 WBC 8.46 (4.8-10.8) K/ul RBC 2.80 L (4.70-6.10) M/uL Hgb 8.5 L Cancelled (14.0-18.0) g/dl Hct 26.5 L Cancelled (42.0-52.0) % MCV 94.6 (80.0-100.0) fL MCH 30.4 (25.0-34.0) pg MCHC 32.1 (32.0-36.0) g/dL RDW Std Deviation 62.4 H (36.4-46.3) fL RDW Coeff of Chaka 18.7 H (11.5-14.5) % Plt Count 311 (130-400) K/uL MPV 10.1 (9.4-12.4) fL Immature Gran % (Auto) % Neut % (Auto) % Lymph % (Auto) % [place] % (Auto) % Eos % (Auto) % Baso % (Auto) % Neut # (Auto) (1.40-6.50) K/uL Lymph # (Auto) (1.2-3.4) K/uL [place] # (Auto) (0.11-0.59) K/uL Eos # (Auto) (0-0.50) K/uL Baso # (Auto) (0-0.2) K/uL Immature Gran # (Auto) (0.01-0.20) K/uL Absolute Nucleated RBC 0.02 (0-0.12) K/uL Nucleated RBC % (auto) 0.2 % Polychromasia Anisocytosis PT (9.0-12.0) Seconds INR (0.9-1.1) APTT (21.0-31.0) Seconds PTT Ratio ABG pH (7.35-7.45) ABG pCO2 (35-46) mmHg ABG pO2 (80-95) mmHg ABG HCO3 (19-24) mmol/L ABG O2 Saturation (90-95) % ABG Base Excess (-9-1.8) mEq/L Rudy Test (Pos) VBG pH (7.36-7.41) VBG pCO2 (38-50) mmHg VBG pO2 mmHg VBG HCO3 mmol/L VBG O2 Saturation % VBG Base Excess mEq/L Oxygen Given Sodium 131 L (136-145) mmol/L Potassium 4.0 (3.5-5.1) mmol/L Chloride 99 (98-107) mmol/L Carbon Dioxide 22 (21-32) mmol/L Anion Gap 10 (3-11) BUN 42 H (6-23) mg/dl Creatinine 2.57 H (0.6-1.4) mg/dl Est Cr Clr Drug Dosing 25.7 ml/min Est GFR ( Amer) 27.3 ml/min Est GFR (Non-Af Amer) 23.6 ml/min BUN/Creatinine Ratio 16.3 (10-20) Glucose 350 H* (70-99(Fasting)) mg/dl Calcium 8.8 (8.6-10.3) mg/dl Magnesium (1.7-2.4) mg/dl Total Bilirubin (0.2-1.0) mg/dl AST (13-39) U/L ALT (7-52) U/L Alkaline Phosphatase (34-104) U/L Troponin I High Sens (0-20) pg/ml B-Natriuretic Peptide (0-100) pg/ml Total Protein (6.0-8.3) gm/dl Albumin (3.4-5.0) gm/dl Globulin (2.5-4.0) gm/dl Albumin/Globulin Ratio (0.9-2) Lipase (11-82) U/L SARS-CoV-2, RNA, NAAT (NEGATIVE) Blood Type Antibody Screen Crossmatch 11/25/22 11/25/22 11/25/22 Range/Units 22:48 21:29 21:29 WBC (4.8-10.8) K/ul RBC (4.70-6.10) M/uL Hgb 8.4 L (14.0-18.0) g/dl Hct 25.7 L (42.0-52.0) % MCV (80.0-100.0) fL MCH (25.0-34.0) pg MCHC (32.0-36.0) g/dL RDW Std Deviation (36.4-46.3) fL RDW Coeff of Chaka (11.5-14.5) % Plt Count (130-400) K/uL MPV (9.4-12.4) fL Immature Gran % (Auto) % Neut % (Auto) % Lymph % (Auto) % [place] % (Auto) % Eos % (Auto) % Baso % (Auto) % Neut # (Auto) (1.40-6.50) K/uL Lymph # (Auto) (1.2-3.4) K/uL [place] # (Auto) (0.11-0.59) K/uL Eos # (Auto) (0-0.50) K/uL Baso # (Auto) (0-0.2) K/uL Immature Gran # (Auto) (0.01-0.20) K/uL Absolute Nucleated RBC (0-0.12) K/uL Nucleated RBC % (auto) % Polychromasia Anisocytosis PT (9.0-12.0) Seconds INR (0.9-1.1) APTT (21.0-31.0) Seconds PTT Ratio ABG pH 7.39 (7.35-7.45) ABG pCO2 33 L (35-46) mmHg ABG pO2 117 H (80-95) mmHg ABG HCO3 20 (19-24) mmol/L ABG O2 Saturation 99.2 H (90-95) % ABG Base Excess -4.1 (-9-1.8) mEq/L Rudy Test POS (Pos) VBG pH (7.36-7.41) VBG pCO2 (38-50) mmHg VBG pO2 mmHg VBG HCO3 mmol/L VBG O2 Saturation % VBG Base Excess mEq/L Oxygen Given 2L Sodium (136-145) mmol/L Potassium (3.5-5.1) mmol/L Chloride (98-107) mmol/L Carbon Dioxide (21-32) mmol/L Anion Gap (3-11) BUN (6-23) mg/dl Creatinine (0.6-1.4) mg/dl Est Cr Clr Drug Dosing ml/min Est GFR ( Amer) ml/min Est GFR (Non-Af Amer) ml/min BUN/Creatinine Ratio (10-20) Glucose (70-99(Fasting)) mg/dl Calcium (8.6-10.3) mg/dl Magnesium 1.9 (1.7-2.4) mg/dl Total Bilirubin (0.2-1.0) mg/dl AST (13-39) U/L ALT (7-52) U/L Alkaline Phosphatase (34-104) U/L Troponin I High Sens 26.4 H (0-20) pg/ml B-Natriuretic Peptide (0-100) pg/ml Total Protein (6.0-8.3) gm/dl Albumin (3.4-5.0) gm/dl Globulin (2.5-4.0) gm/dl Albumin/Globulin Ratio (0.9-2) Lipase (11-82) U/L SARS-CoV-2, RNA, NAAT (NEGATIVE) Blood Type Antibody Screen Crossmatch 11/25/22 11/25/22 11/25/22 Range/Units 13:30 13:16 13:16 WBC (4.8-10.8) K/ul RBC (4.70-6.10) M/uL Hgb (14.0-18.0) g/dl Hct (42.0-52.0) % MCV (80.0-100.0) fL MCH (25.0-34.0) pg MCHC (32.0-36.0) g/dL RDW Std Deviation (36.4-46.3) fL RDW Coeff of Chaka (11.5-14.5) % Plt Count (130-400) K/uL MPV (9.4-12.4) fL Immature Gran % (Auto) % Neut % (Auto) % Lymph % (Auto) % [place] % (Auto) % Eos % (Auto) % Baso % (Auto) % Neut # (Auto) (1.40-6.50) K/uL Lymph # (Auto) (1.2-3.4) K/uL [place] # (Auto) (0.11-0.59) K/uL Eos # (Auto) (0-0.50) K/uL Baso # (Auto) (0-0.2) K/uL Immature Gran # (Auto) (0.01-0.20) K/uL Absolute Nucleated RBC (0-0.12) K/uL Nucleated RBC % (auto) % Polychromasia Anisocytosis PT 12.2 H (9.0-12.0) Seconds INR 1.1 (0.9-1.1) APTT 26.1 (21.0-31.0) Seconds PTT Ratio 0.9 ABG pH (7.35-7.45) ABG pCO2 (35-46) mmHg ABG pO2 (80-95) mmHg ABG HCO3 (19-24) mmol/L ABG O2 Saturation (90-95) % ABG Base Excess (-9-1.8) mEq/L Rudy Test (Pos) VBG pH (7.36-7.41) VBG pCO2 (38-50) mmHg VBG pO2 mmHg VBG HCO3 mmol/L VBG O2 Saturation % VBG Base Excess mEq/L Oxygen Given Sodium 139 (136-145) mmol/L Potassium 3.9 (3.5-5.1) mmol/L Chloride 106 (98-107) mmol/L Carbon Dioxide 24 (21-32) mmol/L Anion Gap 9 (3-11) BUN 43 H (6-23) mg/dl Creatinine 2.62 H (0.6-1.4) mg/dl Est Cr Clr Drug Dosing 25.6 ml/min Est GFR ( Amer) 26.7 ml/min Est GFR (Non-Af Amer) 23.0 ml/min BUN/Creatinine Ratio 16.4 (10-20) Glucose 110 H (70-99(Fasting)) mg/dl Calcium 9.0 (8.6-10.3) mg/dl Magnesium (1.7-2.4) mg/dl Total Bilirubin 0.3 (0.2-1.0) mg/dl AST 13 (13-39) U/L ALT 9 (7-52) U/L Alkaline Phosphatase 73 (34-104) U/L Troponin I High Sens 35.5 H (0-20) pg/ml B-Natriuretic Peptide (0-100) pg/ml Total Protein 6.5 (6.0-8.3) gm/dl Albumin 3.6 (3.4-5.0) gm/dl Globulin 2.9 (2.5-4.0) gm/dl Albumin/Globulin Ratio 1.2 (0.9-2) Lipase 39 (11-82) U/L SARS-CoV-2, RNA, NAAT NEGATIVE (NEGATIVE) Blood Type Antibody Screen Crossmatch 11/25/22 11/25/22 11/25/22 Range/Units 13:16 13:16 13:16 WBC 10.45 (4.8-10.8) K/ul RBC 2.10 L (4.70-6.10) M/uL Hgb 6.2 L* (14.0-18.0) g/dl Hct 20.8 L* (42.0-52.0) % MCV 99.0 (80.0-100.0) fL MCH 29.5 (25.0-34.0) pg MCHC 29.8 L (32.0-36.0) g/dL RDW Std Deviation 68.0 H (36.4-46.3) fL RDW Coeff of Chaka 19.1 H (11.5-14.5) % Plt Count 331 (130-400) K/uL MPV 9.9 (9.4-12.4) fL Immature Gran % (Auto) 0.6 % Neut % (Auto) 61.8 % Lymph % (Auto) 17.7 % [place] % (Auto) 8.4 % Eos % (Auto) 10.4 % Baso % (Auto) 1.1 % Neut # (Auto) 6.46 (1.40-6.50) K/uL Lymph # (Auto) 1.85 (1.2-3.4) K/uL [place] # (Auto) 0.88 H (0.11-0.59) K/uL Eos # (Auto) 1.09 H (0-0.50) K/uL Baso # (Auto) 0.11 (0-0.2) K/uL Immature Gran # (Auto) 0.06 (0.01-0.20) K/uL Absolute Nucleated RBC 0.03 (0-0.12) K/uL Nucleated RBC % (auto) 0.3 % Polychromasia 1+ Anisocytosis Present PT (9.0-12.0) Seconds INR (0.9-1.1) APTT (21.0-31.0) Seconds PTT Ratio ABG pH (7.35-7.45) ABG pCO2 (35-46) mmHg ABG pO2 (80-95) mmHg ABG HCO3 (19-24) mmol/L ABG O2 Saturation (90-95) % ABG Base Excess (-9-1.8) mEq/L Rudy Test (Pos) VBG pH 7.37 (7.36-7.41) VBG pCO2 41 (38-50) mmHg VBG pO2 24 mmHg VBG HCO3 24 mmol/L VBG O2 Saturation < 60.0 % VBG Base Excess -1.5 mEq/L Oxygen Given Sodium (136-145) mmol/L Potassium (3.5-5.1) mmol/L Chloride (98-107) mmol/L Carbon Dioxide (21-32) mmol/L Anion Gap (3-11) BUN (6-23) mg/dl Creatinine (0.6-1.4) mg/dl Est Cr Clr Drug Dosing ml/min Est GFR ( Amer) ml/min Est GFR (Non-Af Amer) ml/min BUN/Creatinine Ratio (10-20) Glucose (70-99(Fasting)) mg/dl Calcium (8.6-10.3) mg/dl Magnesium (1.7-2.4) mg/dl Total Bilirubin (0.2-1.0) mg/dl AST (13-39) U/L ALT (7-52) U/L Alkaline Phosphatase (34-104) U/L Troponin I High Sens (0-20) pg/ml B-Natriuretic Peptide 114 H (0-100) pg/ml Total Protein (6.0-8.3) gm/dl Albumin (3.4-5.0) gm/dl Globulin (2.5-4.0) gm/dl Albumin/Globulin Ratio (0.9-2) Lipase (11-82) U/L SARS-CoV-2, RNA, NAAT (NEGATIVE) Blood Type Antibody Screen Crossmatch 11/25/22 Range/Units 13:16 WBC (4.8-10.8) K/ul RBC (4.70-6.10) M/uL Hgb (14.0-18.0) g/dl Hct (42.0-52.0) % MCV (80.0-100.0) fL MCH (25.0-34.0) pg MCHC (32.0-36.0) g/dL RDW Std Deviation (36.4-46.3) fL RDW Coeff of Chaka (11.5-14.5) % Plt Count (130-400) K/uL MPV (9.4-12.4) fL Immature Gran % (Auto) % Neut % (Auto) % Lymph % (Auto) % [place] % (Auto) % Eos % (Auto) % Baso % (Auto) % Neut # (Auto) (1.40-6.50) K/uL Lymph # (Auto) (1.2-3.4) K/uL [place] # (Auto) (0.11-0.59) K/uL Eos # (Auto) (0-0.50) K/uL Baso # (Auto) (0-0.2) K/uL Immature Gran # (Auto) (0.01-0.20) K/uL Absolute Nucleated RBC (0-0.12) K/uL Nucleated RBC % (auto) % Polychromasia Anisocytosis PT (9.0-12.0) Seconds INR (0.9-1.1) APTT (21.0-31.0) Seconds PTT Ratio ABG pH (7.35-7.45) ABG pCO2 (35-46) mmHg ABG pO2 (80-95) mmHg ABG HCO3 (19-24) mmol/L ABG O2 Saturation (90-95) % ABG Base Excess (-9-1.8) mEq/L Rudy Test (Pos) VBG pH (7.36-7.41) VBG pCO2 (38-50) mmHg VBG pO2 mmHg VBG HCO3 mmol/L VBG O2 Saturation % VBG Base Excess mEq/L Oxygen Given Sodium (136-145) mmol/L Potassium (3.5-5.1) mmol/L Chloride (98-107) mmol/L Carbon Dioxide (21-32) mmol/L Anion Gap (3-11) BUN (6-23) mg/dl Creatinine (0.6-1.4) mg/dl Est Cr Clr Drug Dosing ml/min Est GFR ( Amer) ml/min Est GFR (Non-Af Amer) ml/min BUN/Creatinine Ratio (10-20) Glucose (70-99(Fasting)) mg/dl Calcium (8.6-10.3) mg/dl Magnesium (1.7-2.4) mg/dl Total Bilirubin (0.2-1.0) mg/dl AST (13-39) U/L ALT (7-52) U/L Alkaline Phosphatase (34-104) U/L Troponin I High Sens (0-20) pg/ml B-Natriuretic Peptide (0-100) pg/ml Total Protein (6.0-8.3) gm/dl Albumin (3.4-5.0) gm/dl Globulin (2.5-4.0) gm/dl Albumin/Globulin Ratio (0.9-2) Lipase (11-82) U/L SARS-CoV-2, RNA, NAAT (NEGATIVE) Blood Type A Positive Antibody Screen NEGATIVE Crossmatch See Detail
[2022-11-26] MEDS ORDERED: LACTATED RINGER'S 1,000 ML IV ONE (09:04)
[2022-11-26 09:46] LABS: Hematocrit (blood only) 25.9 % (42.0-52.0); Hemoglobin 8.4 g/dl (14.0-18.0)
[2022-11-26] MEDS: INSULIN ASPART PER UNIT CHARGE SC SCH ×4 (10:21→20:30)
[2022-11-26] MEDS: SUCRALFATE 1 GM/10 ML UDC PO SCH ×3 (12:27→19:43)
--- NOTE | 2022-11-26 12:37 | Pharmacy Report ---
Pharmacy Glycemic Short Note 2 - Date of Service November 26, 2022 - Glycemic Short BSG Results (Last 24 hours): 11/25/22 11/26/22 11/26/22 13:16 00:55 10:20 Glucose 110 H 350 H* POC Glucose 148 H 11/26/22 12:11 Glucose POC Glucose 134 H OUTPATIENT ANTIDIABETIC REGIMEN: * N/A * HbA1C = 4.2% (11/02/22) - most likely unreliable in anemia and CKD ASSESSMENT: * Mr Fung is a 72 y/o M who was admitted for a GI bleed. * He received Solu-Medrol 125 mg IV x 1 @1324 and 20 mg IV x 1 @ 2251 on 11/25/22 (day of admission). * A random PRP around midnight on 11/26 showed a BSG of 350 mg/dL. Patient received 5 units of IV insulin @0203 on 11/26/22. * Pharmacy was consulted in the morning. * Patient is NPO. During previous admission he did not have blood sugar checks and fasting BSGs were within goal. * Instituted q6 Novolog with weight-based stress of 2 parameters. Higher goal range since NPO. * BSG around 10 was 148 mg/dL and at noon was 134 mg/dL. * Most likely monitor patient for 24 hours then consider discontinuing accuchecks. PLAN FOR INPATIENT GLYCEMIC CONTROL: * Basal insulin * HOLD * Bolus insulin * NovoLog per scale ACHS or Q6hrs while NPO * Goal Range: Low 110 mg/dL - High 140 mg/dL * Correction Factor: 25 mg/dL/unit * Nutritional / Prandial insulin per carb ratio of 1 unit per 9 grams CHO consumed
--- NOTE | 2022-11-26 13:44 | Anesthesiology Consultation ---
Date of Service November 26, 2022 Assessment & Plan Chart Review Chart Review: Acceptable Risk for Surgery Consults Requested none History Surgery Operation Date: 11/26/22 10:35 Proposed Procedures p Esophagogastroduodenoscopy Dr Mckinley Sen, Height/Weight Height: 5 ft 6 in Weight: 83.5 kg Allergies Allergy/AdvReac Type Severity Reaction Status Date / Time RUBENS Inhibitors AdvReac Intermediate DROPS Verified 11/25/22 14:56 BLOOD PRESSURE lisinopril AdvReac Intermediate DROPS Verified 11/25/22 14:56 BLOOD PRESSURE Medications Home Medications Medication Instructions Recorded Confirmed Last Taken atorvastatin 80 mg tablet 80 mg PO QPM 03/25/19 11/25/22 11/24/22 clopidogrel 75 mg tablet 75 mg PO QAM 03/25/19 11/25/22 11/24/22 fluticasone propionate 50 2 spray intranasal DAILY 03/25/19 11/25/22 11/24/22 mcg/actuation nasal spray,suspension cholecalciferol (vitamin D3) 50 2,000 unit PO QAM 06/10/20 11/25/22 11/24/22 mcg (2,000 unit) capsule (D3-2000) iron,carbonyl 65 mg-vitamin C 125 1 tab PO QAM 12/30/20 11/25/22 11/24/22 mg tablet,delayed release (Vitron-C) albuterol sulfate 90 mcg/actuation 2 puff inhalation Q4 PRN Wheezing 10/31/21 11/25/22 03/02/22 aerosol inhaler allopurinol 300 mg tablet 150 mg PO QAM 10/31/21 11/25/22 11/24/22 metoprolol tartrate 25 mg tablet 12.5 mg PO BID 10/31/21 11/25/22 11/24/22 ezetimibe 10 mg tablet 10 mg PO QAM 08/04/22 11/25/22 11/24/22 Oxygen Home #1 ea 08/09/22 10/14/22 Unknown apixaban 5 mg tablet 5 mg PO BID 10/11/22 11/25/22 11/24/22 docusate sodium 100 mg capsule 100 mg PO BID PRN Constipation 10/11/22 11/25/22 Unknown ipratropium 0.5 mg-albuterol 3 mg 3 ml inhalation Q6H PRN Shortness 10/14/22 11/25/22 Unknown (2.5 mg base)/3 mL nebulization Of Breath soln umeclidinium 62.5 mcg-vilanterol 1 inh inhalation DAILY 11/02/22 11/25/22 11/24/22 25 mcg/actuation powdr for inhalation (Anoro Ellipta) amlodipine 5 mg tablet (Norvasc) 10 mg PO QAM 30 days #60 tabs 11/07/22 11/25/22 11/24/22 pantoprazole 40 mg tablet,delayed 40 mg PO BID 30 days #60 tabs 11/07/22 11/25/22 11/24/22 release sucralfate 100 mg/mL oral 1 g (10 mL) PO QIDM 30 days #1,200 11/07/22 11/25/22 11/24/22 suspension mL Active Medications Generic Name Dose Route Start Last Admin Trade Name Freq PRN Reason Stop Dose Admin Albuterol 3 ml 11/25/22 19:00 11/26/22 11:15 Albut/Ipratrop 3mg/0.5mg Neb 3 Ml Vial NEB 12/25/22 18:59 3 ml Q4R MOLINA Administration Protocol Amlodipine Besylate 10 mg 11/26/22 09:00 11/26/22 08:38 Amlodipine Besylate 5 Mg Tab PO 12/26/22 08:59 10 mg QAM MOLINA Administration Ascorbic Acid 250 mg 11/26/22 09:00 11/26/22 08:37 Ascorbic Acid 500 Mg Tab PO 12/26/22 08:59 Not Given DAILY MOLINA Ferrous Sulfate 325 mg 11/26/22 09:00 11/26/22 08:37 Ferrous Sulfate 325 Mg Tab PO 12/26/22 08:59 Not Given DAILY MOLINA Fluticasone Propionate 2 sprays 11/26/22 09:00 11/26/22 08:38 Fluticasone Propionate Na Spr 16 Gm Btl DANIELA 12/26/22 08:59 2 sprays DAILY MOLINA Administration Pantoprazole Sodium 40 mg/ 100 mls @ 20 mls/hr 11/25/22 14:15 11/26/22 10:45 Dextrose IV 12/25/22 14:14 8 mg/hr Q5H MOLINA 20 mls/hr Administration 8 MG/HR Lactated Ringer's 1,000 mls @ 50 mls/hr 11/26/22 09:04 11/26/22 09:22 Lr IV 11/27/22 05:03 50 mls/hr .Q20H ONE Administration Insulin Aspart 0 units 11/26/22 09:30 11/26/22 12:27 Insulin Aspart Per Unit Charge SC 12/26/22 09:29 Not Given Q6 MOLINA Metoprolol Tartrate 12.5 mg 11/25/22 21:00 11/26/22 08:39 Metoprolol Tartrate 25 Mg Tab PO 12/25/22 20:59 12.5 mg BID MOLINA Administration Sucralfate 1 gm 11/26/22 12:00 11/26/22 12:27 Sucralfate 1 Gm/10 Ml Udc PO 12/26/22 11:59 Not Given QIDM MOLINA Umeclidinium/Vilanterol 1 puffs 11/26/22 09:00 11/26/22 08:40 Umeclidinium/Vilanterol 62.5/25mcg 7 Puffs/Inhaler INH 12/26/22 08:59 1 puffs DAILY MOLINA Administration NPO Date Last Intake of Fluids: 11/25/22 Time Last Intake of Fluids: 22:00 Last Intake of Fluids Comment: "ice chips" sip of water w/med 0800 Date Last Intake of Solids: 11/24/22 Time Last Intake of Solids: 12:00 Last Intake of Solids Comment: "hamburger" Past Medical History Medical History (Updated 11/25/22 @ 20:54 by Vick Cristina MD) Aneurysm CT chest w/o contrast 06/25/22 - 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 Ascending thoracic aorta at the level of the right pulmonary artery 4.2 cm unchanged. 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 Descending thoracic aorta at the level of the left atrium again up to 4.7 cm. Aortic stenosis Thoracic aortic atherosclerosis, densely calcified coronary arteries, severely calcified aortic valve, aneurysmal outpouching of the aortic arch. CKD (chronic kidney disease), stage III follows with S nephrology Gastric ulcer Hearing deficit BL NAILS History of GI bleed Hx of gout Hx SBO Hyperlipidemia Hypertension ANDREW (iron deficiency anemia) Obesity Paroxysmal ventricular tachycardia 19 beat run of ventricular tachycardia via Zio monitoring PFO (patent foramen ovale) per records. follows with Dr. 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 TO HAVE SLIGHT BALANCE ISSUES Past Family History Family History Other AAA (abdominal aortic aneurysm) Hypertension No family history of adverse response to anesthesia Past Surgical History Surgical History History of esophagogastroduodenoscopy (EGD) History of lumbar surgery 1999 History of tonsillectomy History of tonsillectomy and adenoidectomy History of tooth extraction Hx of colonoscopy Hx of hernia repair lysis of adhesions, incisional hernia repair laparoscopically 01/28/2010 at [facility] - Dr Desouza S/P AAA repair 01/13/2009 - Dr Suazo ([place] [facility]ARLY AT [facility]) Social History Smoking Status: Former smoker tobacco type: cigarettes Smoking cigarettes per day: Former cigarette. Quit 1998 Do You Dip or Chew Tobacco: No Smoking End Date: 1998 Hx Alcohol Use: Yes Alcohol type: beer alcohol intake frequency: holidays/special occasions only Hx Substance Use: No substance use type: does not use Physical Exam Vital Signs Last Vital Signs Temp 36.8 C 11/26/22 13:13 Pulse 82 11/26/22 13:13 Resp 20 11/26/22 13:13 BP 135/60 11/26/22 13:13 Pulse Ox 98 11/26/22 13:13 O2 Del Method Nasal Cannula 11/26/22 13:13 O2 Flow Rate 2 11/26/22 13:13 Testing Laboratory Results 11/26/22 09:17 11/26/22 00:55 PT 12.2 Seconds (9.0-12.0) H 11/25/22 13:16 INR 1.1 (0.9-1.1) 11/25/22 13:16 APTT 26.1 Seconds (21.0-31.0) 11/25/22 13:16 Blood Type A Positive 11/25/22 13:16 Antibody Screen NEGATIVE 11/25/22 13:16 11/26/22 11/26/22 12:11 10:20 POC Glucose 134 H 148 H
[2022-11-26] MEDS ORDERED: ePHEDrine sulfate 50 MG/ML AMP IV PRN (13:46)
[2022-11-26] MEDS ORDERED: ATROPINE SULFATE 0.1 MG/ML 10ML SYR IV PRN (13:46)
[2022-11-26] MEDS ORDERED: LIDOCAINE 2% 2 ML VIAL/AMP(20MG/ML) INFIL ONE (14:09)
[2022-11-26] MEDS ORDERED: GLYCOPYRROLATE 0.2 MG/ML VIAL ONE (14:09)
[2022-11-26] MEDS ORDERED: PROPOFOL IV EMULSION 10 MG/ML 20 ML VIAL IV ONE ×3 (14:09→14:48)
[2022-11-26] MEDS ORDERED: fentaNYL citrate PF 100 MCG/2 ML VIAL ONE (14:52)
[2022-11-26] MEDS ORDERED: ONDANSETRON INJ 2 MG/ML 2 ML VIAL ONE (14:55)
--- NOTE | 2022-11-26 15:05 | GI REPORT ---
Patient Name: Mikhail Fung Procedure Date: 11/26/2022 2:25 PM Date of : 1950 Admit Type: Inpatient Age: 72 Gender: Male Attending MD: Redd Sen DO, Procedure: Upper GI endoscopy Providers: Redd Sen DO Referring MD: Lonny Rader Md Indications: Melena Medicines: Monitored Anesthesia Care Complications: No immediate complications. Estimated blood loss: Minimal. Estimated Blood Loss: Estimated blood loss was minimal. Procedure: Pre-Anesthesia Assessment: - Prior to the procedure, a History and Physical was performed, and patient medications, allergies and sensitivities were reviewed. The patient's tolerance of previous anesthesia was reviewed. - The risks and benefits of the procedure and the sedation options and risks were discussed with the patient. All questions were answered and informed consent was obtained. - Patient identification and proposed procedure were verified prior to the procedure by the physician, the nurse and the systems admin. The procedure was verified in the procedure room. - Pre-procedure physical examination revealed no contraindications to sedation. - ASA Grade Assessment: IV - A patient with severe systemic disease that is a constant threat to life. - After reviewing the risks and benefits, the patient was deemed in satisfactory condition to undergo the procedure. - Immediately prior to administration of medications, the patient was re-assessed for adequacy to receive sedatives. - The heart rate, respiratory rate, oxygen saturations, blood pressure, adequacy of pulmonary ventilation, and response to care were monitored throughout the procedure. - The physical status of the patient was re-assessed after the procedure. After obtaining informed consent, the endoscope was passed under direct vision. Throughout the procedure, the patient's blood pressure, pulse, and oxygen saturations were monitored continuously. The Endoscope was introduced through the mouth, and advanced to the third part of duodenum. The upper GI endoscopy was accomplished without difficulty. The patient tolerated the procedure well. Findings: The examined esophagus was normal. Multiple endoclips were found in the gastric fundus and in the gastric body. The duodenal bulb was normal. Three previously placed plastic biliary pancreatic stents were seen in the area of the papilla. Clotted blood was found in the area of the papilla at the apex of a prior sphincterotomy. Impression: - Normal esophagus. - An endoclip was found in the stomach. - Normal duodenal bulb. - Plastic biliary pancreatic stents in the duodenum. - Blood in the area of the papilla. - No specimens collected. Recommendation: - Perform an ERCP today. Redd Sen D.O. Redd Sen, 11/26/2022 3:04:35 PM This report has been signed electronically. Note Initiated On: 11/26/2022 2:25 PM Number of Addenda: 0 I attest to the content of the Intraoperative Record and orders documented therein, exceptions below {[id number]}
[2022-11-26] MEDS ORDERED: EPINEPHrine INJ 1 MG/ML AMP ONE (15:06)
--- NOTE | 2022-11-26 15:13 | GI REPORT ---
Patient Name: Mikhail Fung Procedure Date: 11/26/2022 3:04 PM Date of : 1950 Admit Type: Inpatient Age: 72 Gender: Male Attending MD: Redd Sen DO, Procedure: ERCP Providers: Redd Sen DO Referring MD: Lonny Rader Md, Lacie England MD Indications: For therapy of post-sphincterotomy bleeding Medicines: Monitored Anesthesia Care Complications: No immediate complications. Estimated blood loss: Minimal. Estimated Blood Loss: Estimated blood loss was minimal. Procedure: Pre-Anesthesia Assessment: - Prior to the procedure, a History and Physical was performed, and patient medications, allergies and sensitivities were reviewed. The patient's tolerance of previous anesthesia was reviewed. - The risks and benefits of the procedure and the sedation options and risks were discussed with the patient. All questions were answered and informed consent was obtained. - Patient identification and proposed procedure were verified prior to the procedure by the physician, the nurse and the log brander. The procedure was verified in the procedure room. - Pre-procedure physical examination revealed no contraindications to sedation. - ASA Grade Assessment: IV - A patient with severe systemic disease that is a constant threat to life. - After reviewing the risks and benefits, the patient was deemed in satisfactory condition to undergo the procedure. - The anesthesia plan was to use monitored anesthesia care (MAC). - Immediately prior to administration of medications, the patient was re-assessed for adequacy to receive sedatives. - The heart rate, respiratory rate, oxygen saturations, blood pressure, adequacy of pulmonary ventilation, and response to care were monitored throughout the procedure. After obtaining informed consent, the scope was passed under direct vision. Throughout the procedure, the patient's blood pressure, pulse, and oxygen saturations were monitored continuously. The Duodenoscope was introduced through the mouth, and advanced to the duodenum and used to inject contrast into the bile duct. The ERCP was accomplished without difficulty. Findings: Two biliary stent was visible on the outpatient psychiatrist film. A pancreatic stent was visible on the outpatient psychiatrist film. The esophagus was successfully intubated under direct vision without detailed examination of the pharynx, larynx, and associated structures, and upper GI tract. The upper GI tract was grossly normal. A biliary sphincterotomy had been performed. The sphincterotomy appeared open. Three plastic biliary pancreatic stents originating in the biliary tree and the pancreatic duct were emerging from the major papilla. The stents were visibly patent. Blood was noted at the apex of the the major papilla sphincterotomy site. Three stents were removed from the biliary tree and the pancreatic duct using a Raptor grasping device. The bile duct was deeply cannulated with the 15 mm balloon and guidewire. Contrast was injected. I personally interpreted the bile duct images. Contrast extended to the bifurcation. The lower third of the main bile duct and middle third of the main bile duct contained filling defect(s). To discover objects, the biliary tree was swept with a 15 mm balloon starting at the bifurcation. Clots were swept from the duct. One 10 Fr by 6 cm covered metal stent ([place] Viabil) was placed 6 cm into the common bile duct to tamponade the sphincterotomy site. Bile flowed through the stent. The stent was in good position. Area was successfully injected with 2 mL of a 1:10,000 solution of epinephrine through the ERCP scope for hemostasis. Coagulation for hemostasis in the area of the papilla using a 7 Fr bipolar probe through the ERCP scope was successful, no bleeding noted at the end of the exam. The endoscope was withdrawn from the patient. Impression: - Prior biliary sphincterotomy appeared open. - Three visibly patent stents from the biliary tree and the pancreatic duct were seen in the major papilla. - Hemostasis of the sphincterotomy site with bipolar cautery was performed. - The biliary tree was swept and clots were found. - One covered metal stent was placed into the common bile duct for hemostatis (tamponade). Recommendation: - Avoid aspirin and nonsteroidal anti-inflammatory medicines for 5 days. - Hold anticoagulation for 5 days please. - Clear liquid diet today. - Observe patient's clinical course following today's ERCP with therapeutic intervention. - Use broad spectrum antibiotics for 7 days. Redd Sen D.O. Redd Sen, 11/26/2022 3:13:35 PM This report has been signed electronically. Note Initiated On: 11/26/2022 3:04 PM Number of Addenda: 0 I attest to the content of the Intraoperative Record and orders documented therein, exceptions below {[id number]}
--- NOTE | 2022-11-26 15:34 | Fluoroscopy Report ---
FL ERCP biliary ductal CLINICAL HISTORY: ERCP TECHNIQUE: 4 views were obtained with the C-arm in the OR with the above procedure. Total fluoroscopy time was 40 seconds. Radiation dose was 10.10 mGy. Comparison: Comparison is made to CT abdomen pelvis 11/25/2022 FINDINGS/IMPRESSION: Intraoperative images were obtained of ERCP Please correlate with intraoperative fluoroscopy and operative report. ACT 112: Negative or not required by law. Electronically signed by: Kai Alonso M.D. 11/26/2022 3:33 PM
--- NOTE | 2022-11-26 15:42 | Post Operative Brief Note ---
Immediate Post Op Note v1 Date of Surgery November 26, 2022 Pre & Post Diagnosis Operation Date: 11/26/22 10:35 Pre-Op Diagnosis: GI BLEED, SOB Post-Op Diagnosis: post sphincterotomy bleed I identified the patient and participated in the time-out.: Yes Procedure Operation Date: 11/26/22 10:35 Actual Procedures s Esophagogastroduodenoscopy - Redd Sen DO p Endoscopic Retrograde Cholangiopancreato - Redd Sen, Surgeon Redd Sen, Green Marketing Specialist none Estimated Blood Loss 0 Findings Consistent with Post-Op Diagnosis
--- NOTE | 2022-11-26 15:43 | Communication Note ---
Date of Service: November 26, 2022 The patient underwent upper endoscopy and ultimately ERCP today. He was found to have evidence of post sphincterotomy bleeding likely result of his ongoing antiplatelet and anticoagulation needs. The plastic biliary and pancreatic stents were removed, a covered metal stent was placed into the biliary tree to allow for tamponade. The local area was then treated with epinephrine injection and thermal therapy to the sphincterotomy site. No bleeding was noted at the end of the examination. Recommendations Patient may have clear liquids this evening Empiric antibiotic coverage with ciprofloxacin 500 mg twice daily for 5 days Anticoagulation and antiplatelet agents for 5 days please If rebleeding occurs patient may need referral to a tertiary center with interventional radiology support Please call with any additional questions or concerns over the weekend
[2022-11-26] MEDS: CIPROFLOXACIN / D5W 400 MG/200 ML BAG IV SCH (16:34)
--- NOTE | 2022-11-26 16:36 | Hospitalist Progress Note ---
Date of Service November 26, 2022 Assessment & Plan (1) Melena: (2) Anemia due to chronic kidney disease: (3) Acute kidney injury superimposed on chronic kidney disease: (4) COPD (chronic obstructive pulmonary disease): (5) ANDREW (iron deficiency anemia): (6) Recurrent cerebrovascular accidents (CVAs): (7) Aortic stenosis: (8) History of GI bleed: (9) Hypertension: (10) Hyperlipidemia: (11) Sleep apnea: Plan Patient is a 72 yr male with H/O Chronic respiratory failure secondary to COPD on home O2, GINNY/nocturnal hypoxemia on CPAP, history PSVT, valvular heart disease (severe , mild AR), history TAA, AAA status post surgery, 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 Recently admitted from 11/02-11/07 for N/V, acute cholecystitis and acute on chronic melanotic GI bleed on anticoagulation. Underwent EGD/EUS/ERCP with removal of CBD stone, transpapillary gallbladder stenting for decompression by Dr. England with plans for repeat ERCP in 3 months at [facility] to remove the stents and place EUS guided GB drainage using Axios stent. GI bleed, in setting of anticoagulation Symptomatic anemia Anemia of chronic disease Hgb 6.2 on admission, endorses 1 melanotic stool daily x 8 days, on plavix and apixaban for recurrent CVA S/P 2 units PRBCs --EGD:Normal esophagus. An endoclip was found in the stomach. Normal duodenal bulb. Plastic biliary pancreatic stents in the duodenum. Blood in the area of the papilla. No specimens collected. Monitor H&H and transfuse as needed Antiplatelets, anticoagulation on hold--plan to hold for 5 days Obesity Clear liquid diet today Empirically start on ciprofloxacin 5 mg 2 times a day for 5 days Patient has recurrence of bleeding, will need to be transferred to tertiary care facility for IR intervention Continue PPI H/O Recurrent embolic CVA Secondary to shaggy aorta syndrome Eliquis and Plavix held due to GI bleed - resume as soon as possible Continue Lipitor, Zetia Chronic hypoxic respiratory failure GINNY/nocturnal hypoxemia Likely multifactorial : Symptomatic anemia, ? COPD diagnosis awaiting PFTs, GINNY Has been evaluated by Dr Batres in clinic, determining etiology of resp failure as pulm vs cardiac. Awaiting PFTs once aortic valve has been replaced Saturating well on baseline supplemental oxygen Continue Duonebs, home inhalers CPAP HS MAGDALENO superimposed on CKD III Cr 2.5 today Avoid nephrotoxic agents as able Continue gentle IV fluids Monitor renal function Troponin elevation In setting of GI bleeding, CKD Likely demand ischemia Denies any chest pain Monitor Aortic aneurysm --CT:There is a 6.6 cm saccular aneurysm of the aortic arch, as well as aneurysmal dilatation of the distal descending thoracic aorta which measures up to 5.1 cm in diameter. These findings are new from 2009. Follow-up with vascular surgery is advised. 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 Needs follow-up with vascular surgery as able H/O PSVT Valvular heart disease (severe , mild AR) Was planned to be evaluated by [facility] surgery as per records Continue Metoprolol, monitor volume status Hyperlipidemia Continue statin H/O Waldenstrom macroglobulinemia Past tobacco abuse As per records DVT Px: SCDs Re: GI bleed Code status: FULL CODE Admission and Anticipated Discharge Date Admission Date: November 25, 2022 Subjective Patient is seen and examined at bedside Denies any bleeding issues this morning Reports dyspnea on exertion Also reports chronic cough with occasional wheezing unchanged Plan for EGD today No other complaints Review of Systems Review of Systems: All systems reviewed & are unremarkable except as noted in Subjective Physical Exam Physical Exam: Physical Exam: Vitals signs as noted above General Appearance:Obese, no apparent distress Head: normocephalic, Atraumatic Eyes: normal inspection, EOMI Neck: supple, Trachea midline Respiratory/Chest: Decreased breath sounds, minimal wheezes, No accessory muscle use Cardiovascular: S1, S2, + murmur Abdomen/GI:Soft, LLQ tender, Bowel sounds present Extremities/Musculoskeletal:normal inspection, 1+ B/L LE edema Neurologic/Psych:AAOX3, grossly no focal neurological deficits Skin: normal color, warm Results & Data Results & Data Vital Signs (Past 12 Hours) Vital Signs Temp Pulse Pulse Pulse Pulse Resp BP 11/26/22 16:10 36.3 C L 73 22 152/83 H 11/26/22 15:55 75 22 148/76 H 11/26/22 15:35 76 20 147/75 H 11/26/22 15:25 77 21 132/68 11/26/22 15:15 81 23 141/73 H 11/26/22 15:45 36.3 C L 74 18 155/76 H 11/26/22 15:07 36.3 C L 80 15 143/71 H 11/26/22 13:13 36.8 C 82 20 135/60 11/26/22 11:57 36.8 C 75 20 117/59 L 11/26/22 11:16 83 17 11/26/22 08:00 11/26/22 08:00 36.2 C L 91 H 18 131/66 11/26/22 07:53 86 11/26/22 07:34 17 Pulse Ox O2 Del Method O2 Flow Rate 11/26/22 16:10 97 Nasal Cannula 2 11/26/22 15:55 100 Nasal Cannula 2 11/26/22 15:35 95 Nasal Cannula 2 11/26/22 15:25 96 Nasal Cannula 2 11/26/22 15:15 100 Oxymask 4 11/26/22 15:45 100 Nasal Cannula 2 11/26/22 15:07 100 Oxymask 8 11/26/22 13:13 98 Nasal Cannula 2 11/26/22 11:57 98 Nasal Cannula 2 11/26/22 11:16 97 Nasal Cannula 3 11/26/22 08:00 Nasal Cannula 2 11/26/22 08:00 98 Nasal Cannula 2 11/26/22 07:53 11/26/22 07:34 Nasal Cannula 2 Laboratory Results Short CBC 11/25/22 11/26/22 11/26/22 Range/Units 21:29 00:55 00:55 WBC 8.46 (4.8-10.8) K/ul Hgb 8.4 L Cancelled 8.5 L (14.0-18.0) g/dl Hct 25.7 L Cancelled 26.5 L (42.0-52.0) % Plt Count 311 (130-400) K/uL 11/26/22 Range/Units 09:17 WBC (4.8-10.8) K/ul Hgb 8.4 L (14.0-18.0) g/dl Hct 25.9 L (42.0-52.0) % Plt Count (130-400) K/uL BMP 11/26/22 00:55 Sodium 131 L Potassium 4.0 Chloride 99 Carbon Dioxide 22 BUN 42 H Creatinine 2.57 H Glucose 350 H* Calcium 8.8
[2022-11-26 17:08] LABS: Hematocrit (blood only) 24.7 % (42.0-52.0); Hemoglobin 7.9 g/dl (14.0-18.0)
[2022-11-26] MEDS ORDERED: Nursing to Pharmacy Communication SCH (17:15)
[2022-11-26] MEDS: ATORVASTATIN 40 MG TAB PO SCH (19:44)
[2022-11-27] MEDS: PANTOprazole 40 MG in DEXTROSE 5% 100 ML IV SCH ×2 (01:35→06:19)
[2022-11-27] MEDS: ALBUT/IPRATROP 3MG/0.5MG NEB 3 ML VIAL NEB SCH ×6 (03:03→22:51)
[2022-11-27 05:12] LABS: Hemoglobin 8.3 g/dl (14.0-18.0); Mean Corpuscular Hemoglobin 30.5 pg (25.0-34.0); Mean Corpuscular Hgb Conc 31.9 g/dL (32.0-36.0); Mean Corpuscular Volume 95.6 fL (80.0-100.0); Mean Platelet Volume 9.8 fL (9.4-12.4); Platelet Count 326 K/uL (130-400); RDW Coefficient of Variation 19.2 % (11.5-14.5); RDW Standard Deviation 64.8 fL (36.4-46.3); Red Blood Count 2.72 M/uL (4.70-6.10); White Blood Count 16.12 K/ul (4.8-10.8)
[2022-11-27 05:32] LABS: BUN Creatinine Ratio 14.9 (10-20); Calcium 8.8 mg/dl (8.6-10.3); Est GFR (African American) 26.7 ml/min; Magnesium 2.1 mg/dl (1.7-2.4); Potassium 3.7 mmol/L (3.5-5.1)
[2022-11-27] MEDS: SUCRALFATE 1 GM/10 ML UDC PO SCH ×4 (08:21→19:24)
[2022-11-27] MEDS: ASCORBIC ACID 500 MG TAB PO SCH (08:21)
[2022-11-27] MEDS: UMECLIDINIUM/VILANTEROL 62.5/25MCG 7 PUFFS/INHALER INH SCH (08:21)
[2022-11-27] MEDS: METOPROLOL TARTRATE 25 MG TAB PO SCH ×2 (08:21→19:23)
[2022-11-27] MEDS: FERROUS SULFATE 325 MG TAB PO SCH (08:22)
[2022-11-27] MEDS: amLODIPine BESYLATE 5 MG TAB PO SCH (08:22)
[2022-11-27] MEDS: FLUTICASONE PROPIONATE NA SPR 16 GM BTL NAE SCH (08:22)
[2022-11-27] MEDS: EZETIMIBE 10 MG TAB PO SCH (08:22)
[2022-11-27] MEDS: INSULIN ASPART PER UNIT CHARGE SC SCH ×4 (08:25→20:54)
[2022-11-27] MEDS ORDERED: NON-FORMULARY MEDICATION (Iron,Carbonyl-Vitamin C [Vitron-C] 65 mg iron- 125 mg Tablet,Del PO SCH (09:00)
[2022-11-27] MEDS: PANTOprazole 40 MG TAB PO SCH ×2 (12:19→19:23)
--- NOTE | 2022-11-27 13:44 | Gastroenterology Progress Note ---
Date of Service November 27, 2022 Assessment & Plan Admission and Anticipated Discharge Date Admission Date: November 25, 2022 Subjective No complaints. No pain. Ray reg diet. No BM, VS stable Abd soft Labs reviewed - Hgb stable, WBC 16 A/P: Post sphincterotomy bleed - Appears resolved s/p placement metal stent. See ERCP note for recs. Pls call with questions. Results & Data Vital Signs (Past 12 Hours) Vital Signs Temp Pulse Pulse Pulse Resp BP Pulse Ox 11/27/22 12:00 36.5 C 69 19 136/68 92 11/27/22 11:12 68 18 92 11/27/22 07:54 11/27/22 07:41 36.3 C L 70 21 163/73 H 91 11/27/22 07:15 72 20 91 11/27/22 07:08 68 11/27/22 03:00 36.6 C 88 20 176/71 H 94 11/27/22 03:06 70 95 11/27/22 03:06 70 21 95 O2 Del Method O2 Flow Rate 11/27/22 12:00 Nasal Cannula 2.0 11/27/22 11:12 Nasal Cannula 2 11/27/22 07:54 Nasal Cannula 2 11/27/22 07:41 Nasal Cannula 2.0 11/27/22 07:15 Nasal Cannula 11/27/22 07:08 11/27/22 03:00 CPAP 11/27/22 03:06 2 11/27/22 03:06 CPAP 2
--- NOTE | 2022-11-27 14:41 | Hospitalist Progress Note ---
Date of Service November 27, 2022 Assessment & Plan (1) Melena: (2) Anemia due to chronic kidney disease: (3) Acute kidney injury superimposed on chronic kidney disease: (4) COPD (chronic obstructive pulmonary disease): (5) ANDREW (iron deficiency anemia): (6) Recurrent cerebrovascular accidents (CVAs): (7) Aortic stenosis: (8) History of GI bleed: (9) Hypertension: (10) Hyperlipidemia: (11) Sleep apnea: Plan Patient is a 72 yr male with H/O Chronic respiratory failure secondary to COPD on home O2, GINNY/nocturnal hypoxemia on CPAP, history PSVT, valvular heart disease (severe , mild AR), history TAA, AAA status post surgery, 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 Recently admitted from 11/02-11/07 for N/V, acute cholecystitis and acute on chronic melanotic GI bleed on anticoagulation. Underwent EGD/EUS/ERCP with removal of CBD stone, transpapillary gallbladder stenting for decompression by Dr. England with plans for repeat ERCP in 3 months at [facility] to remove the stents and place EUS guided GB drainage using Axios stent. GI bleed, in setting of anticoagulation Secondary to post sphincterotomy bleed S/P Cautery, stent placement Symptomatic anemia Anemia of chronic disease Hgb 6.2 on admission, endorses 1 melanotic stool daily x 8 days, on Plavix and apixaban for recurrent CVA S/P 2 units PRBCs --S/P EGD:Normal esophagus. An endoclip was found in the stomach. Normal duodenal bulb. Plastic biliary pancreatic stents in the duodenum. Blood in the area of the papilla. No specimens collected. --S/P ERCP: Prior biliary sphincterotomy appeared open. 3 visibly patent stents from the biliary tree in the pancreatic duct were seen in the major papula. Hemostasis of the sphincterotomy site with bipolar cautery was performed. Biliary tree was swept and clots were found. 1 covered metal stent was placed into the common bile duct for hemostasis. 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 COPD diagnosis awaiting PFTs, GINNY Has been evaluated by Dr Batres in clinic, determining etiology of resp failure as pulm vs cardiac. 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 These findings are new from 2009. Follow-up with vascular surgery is advised. 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 Needs follow-up with vascular surgery as able H/O PSVT Valvular heart disease (severe , mild AR) Was planned to be evaluated by [facility] CT surgery as per records Continue Metoprolol, monitor volume status Hyperlipidemia Continue statin H/O Waldenstrom macroglobulinemia Past tobacco abuse As per records DVT Px: SCDs Re: GI bleed Code status: FULL CODE Admission and Anticipated Discharge Date Admission Date: November 25, 2022 Subjective Patient is seen and examined at bedside States feeling much better today No recurrence of bleeding Hemoglobin stable Discussed with patient's daughter at bedside Denies any nausea, vomiting abdominal pain, chest pain, dyspnea Review of Systems Review of Systems: All systems reviewed & are unremarkable except as noted in Subjective Physical Exam Physical Exam: Physical Exam: Vitals signs as noted above General Appearance:Obese, no apparent distress Head: normocephalic, Atraumatic Eyes: normal inspection, EOMI Neck: supple, Trachea midline Respiratory/Chest: Decreased breath sounds, minimal wheezes, No accessory muscle use Cardiovascular: S1, S2, + murmur Abdomen/GI:Soft, LLQ tender, Bowel sounds present Extremities/Musculoskeletal:normal inspection, 1+ B/L LE edema Neurologic/Psych:AAOX3, grossly no focal neurological deficits Skin: normal color, warm Results & Data Results & Data Vital Signs (Past 12 Hours) Vital Signs Temp Pulse Pulse Pulse Resp BP Pulse Ox 11/27/22 14:36 69 20 93 11/27/22 12:00 36.5 C 69 19 136/68 92 11/27/22 11:12 68 18 92 11/27/22 07:54 11/27/22 07:41 36.3 C L 70 21 163/73 H 91 11/27/22 07:15 72 20 91 11/27/22 07:08 68 11/27/22 03:00 36.6 C 88 20 176/71 H 94 11/27/22 03:06 70 95 11/27/22 03:06 70 21 95 O2 Del Method O2 Flow Rate 11/27/22 14:36 Nasal Cannula 2 11/27/22 12:00 Nasal Cannula 2.0 11/27/22 11:12 Nasal Cannula 2 11/27/22 07:54 Nasal Cannula 2 11/27/22 07:41 Nasal Cannula 2.0 11/27/22 07:15 Nasal Cannula 11/27/22 07:08 11/27/22 03:00 CPAP 11/27/22 03:06 2 11/27/22 03:06 CPAP 2 Laboratory Results Short CBC 11/26/22 11/27/22 Range/Units 16:23 04:50 WBC 16.12 H (4.8-10.8) K/ul Hgb 7.9 L 8.3 L (14.0-18.0) g/dl Hct 24.7 L 26.0 L (42.0-52.0) % Plt Count 326 (130-400) K/uL BMP 11/27/22 04:50 Sodium 140 D Potassium 3.7 Chloride 105 Carbon Dioxide 25 BUN 39 H Creatinine 2.62 H Glucose 117 H Calcium 8.8
[2022-11-27] MEDS: CIPROFLOXACIN / D5W 400 MG/200 ML BAG IV SCH (18:15)
[2022-11-27] MEDS: ATORVASTATIN 40 MG TAB PO SCH (19:21)
[2022-11-28] MEDS: ALBUT/IPRATROP 3MG/0.5MG NEB 3 ML VIAL NEB SCH ×3 (04:03→11:16)
[2022-11-28 05:03] LABS: Hematocrit (blood only) 26.3 % (42.0-52.0); Hemoglobin 8.3 g/dl (14.0-18.0); Mean Corpuscular Hemoglobin 30.1 pg (25.0-34.0); Mean Corpuscular Hgb Conc 31.6 g/dL (32.0-36.0); Mean Corpuscular Volume 95.3 fL (80.0-100.0); Mean Platelet Volume 9.7 fL (9.4-12.4); Platelet Count 303 K/uL (130-400); RDW Coefficient of Variation 18.6 % (11.5-14.5); RDW Standard Deviation 64.1 fL (36.4-46.3); Red Blood Count 2.76 M/uL (4.70-6.10); White Blood Count 9.47 K/ul (4.8-10.8)
[2022-11-28 05:22] LABS: BUN Creatinine Ratio 14.9 (10-20); Calcium 8.5 mg/dl (8.6-10.3); Creatinine Clr Calc Pharmacy 27.1 ml/min; Est GFR (African American) 29.4 ml/min; Est GFR (Non-African American) 25.4 ml/min; Potassium 3.9 mmol/L (3.5-5.1)
[2022-11-28] MEDS: INSULIN ASPART PER UNIT CHARGE SC SCH (08:22)
[2022-11-28] MEDS: FERROUS SULFATE 325 MG TAB PO SCH (08:23)
[2022-11-28] MEDS: amLODIPine BESYLATE 5 MG TAB PO SCH (08:23)
[2022-11-28] MEDS: EZETIMIBE 10 MG TAB PO SCH (08:23)
[2022-11-28] MEDS: ASCORBIC ACID 500 MG TAB PO SCH (08:23)
[2022-11-28] MEDS: PANTOprazole 40 MG TAB PO SCH (08:23)
[2022-11-28] MEDS: UMECLIDINIUM/VILANTEROL 62.5/25MCG 7 PUFFS/INHALER INH SCH (08:24)
[2022-11-28] MEDS: FLUTICASONE PROPIONATE NA SPR 16 GM BTL NAE SCH (08:24)
[2022-11-28] MEDS: SUCRALFATE 1 GM/10 ML UDC PO SCH ×2 (08:24→12:19)
[2022-11-28] MEDS: METOPROLOL TARTRATE 25 MG TAB PO SCH (08:24)
--- NOTE | 2022-11-28 11:48 | Hospitalist Progress Note ---
Date of Service November 28, 2022 Assessment & Plan (1) Melena: (2) Anemia due to chronic kidney disease: (3) Acute kidney injury superimposed on chronic kidney disease: (4) COPD (chronic obstructive pulmonary disease): (5) ANDREW (iron deficiency anemia): (6) Recurrent cerebrovascular accidents (CVAs): (7) Aortic stenosis: (8) History of GI bleed: (9) Hypertension: (10) Hyperlipidemia: (11) Sleep apnea: Plan Patient is a 72 yr male with H/O Chronic respiratory failure secondary to COPD on home O2, GINNY/nocturnal hypoxemia on CPAP, history PSVT, valvular heart disease (severe , mild AR), history TAA, AAA status post surgery, 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 Recently admitted from 11/02-11/07 for N/V, acute cholecystitis and acute on chronic melanotic GI bleed on anticoagulation. Underwent EGD/EUS/ERCP with removal of CBD stone, transpapillary gallbladder stenting for decompression by Dr. England with plans for repeat ERCP in 3 months at [facility] to remove the stents and place EUS guided GB drainage using Axios stent. GI bleed, in setting of anticoagulation Secondary to post sphincterotomy bleed S/P Cautery, stent placement Symptomatic anemia Anemia of chronic disease Hgb 6.2 on admission, endorses 1 melanotic stool daily x 8 days, on Plavix and apixaban for recurrent CVA S/P 2 units PRBCs --S/P EGD:Normal esophagus. An endoclip was found in the stomach. Normal duodenal bulb. Plastic biliary pancreatic stents in the duodenum. Blood in the area of the papilla. No specimens collected. --S/P ERCP: Prior biliary sphincterotomy appeared open. 3 visibly patent stents from the biliary tree in the pancreatic duct were seen in the major papula. Hemostasis of the sphincterotomy site with bipolar cautery was performed. Biliary tree was swept and clots were found. 1 covered metal stent was placed into the common bile duct for hemostasis. 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 COPD diagnosis awaiting PFTs, GINNY Has been evaluated by Dr Batres in clinic, determining etiology of resp failure as pulm vs cardiac. 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 These findings are new from 2009. Follow-up with vascular surgery is advised. 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 Needs follow-up with vascular surgery as able H/O PSVT Valvular heart disease (severe , mild AR) Was planned to be evaluated by [facility] CT surgery as per records Continue Metoprolol, monitor volume status Hyperlipidemia Continue statin H/O Waldenstrom macroglobulinemia Past tobacco abuse As per records DVT Px: SCDs Re: GI bleed Code status: FULL CODE Disposition Home Admission and Anticipated Discharge Date Admission Date: November 25, 2022 Subjective Patient is seen and examined at bedside States feeling well today No new complaints No recurrence of bleeding Discussed with patient's daughter over the phone Denies any nausea, vomiting abdominal pain, chest pain, dyspnea Plan to discharge home today Review of Systems Review of Systems: All systems reviewed & are unremarkable except as noted in Subjective Physical Exam Physical Exam: Physical Exam: Vitals signs as noted above General Appearance:Obese, no apparent distress Head: normocephalic, Atraumatic Eyes: normal inspection, EOMI Neck: supple, Trachea midline Respiratory/Chest: Decreased breath sounds, minimal wheezes, No accessory muscle use Cardiovascular: S1, S2, + murmur Abdomen/GI:Soft, non tender, Bowel sounds present Extremities/Musculoskeletal:normal inspection, 1+ B/L LE edema Neurologic/Psych:AAOX3, grossly no focal neurological deficits Skin: normal color, warm Results & Data Results & Data Vital Signs (Past 12 Hours) Vital Signs Temp Pulse Pulse Pulse Resp BP Pulse Ox 11/28/22 11:17 71 18 93 11/28/22 09:00 11/28/22 07:45 71 11/28/22 07:45 36.5 C 74 19 116/67 96 11/28/22 07:21 72 18 96 11/28/22 04:04 76 17 98 11/28/22 04:04 76 17 98 11/28/22 02:42 36.5 C 69 18 125/74 97 11/28/22 00:13 70 O2 Del Method O2 Flow Rate 11/28/22 11:17 Nasal Cannula 2 11/28/22 09:00 Nasal Cannula 2 11/28/22 07:45 11/28/22 07:45 Nasal Cannula 2.0 11/28/22 07:21 Nasal Cannula 2 11/28/22 04:04 CPAP 2 11/28/22 04:04 2 11/28/22 02:42 CPAP 11/28/22 00:13 Laboratory Results Short CBC 11/28/22 Range/Units 04:39 WBC 9.47 (4.8-10.8) K/ul Hgb 8.3 L (14.0-18.0) g/dl Hct 26.3 L (42.0-52.0) % Plt Count 303 (130-400) K/uL BMP 11/28/22 04:39 Sodium 138 Potassium 3.9 Chloride 106 Carbon Dioxide 26 BUN 36 H Creatinine 2.42 H Glucose 103 H Calcium 8.5 L
[2022-11-28] MEDS ORDERED: CIPROFLOXACIN 500 MG TAB PO SCH (12:00)
--- NOTE | 2022-11-28 12:01 | Discharge Summary ---
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 Recently admitted from 11/02-11/07 for N/V, acute cholecystitis and acute on chronic melanotic GI bleed on anticoagulation. Underwent EGD/EUS/ERCP with removal of CBD stone, transpapillary gallbladder stenting for decompression by Dr. England with plans for repeat ERCP in 3 months at [facility] to remove the stents and place EUS guided GB drainage using Axios stent. Hgb 7.8 and underwent 2u prbc transfusion with symptomatic improvement. Apixiban and plavix held for 3 days before resuming. Gen surg evaluated for cholecystectomy but did not pursue due to extensive medical comorbidities. First noted black bowel movement 8 days ago at home and has had approximately 1/day. Denies any bright red blood or blood in toilet bowl. Over the past few days, patient with progressively worsening shortness of breath, although admits to having shortness of breath at baseline. Has maintained on his 2 L O2 baseline. Some wheezing and some increased mucus production and coughing although feeling better in ED. Soreness in his ribs from coughing. Endorsing some swelling in feet that is painful. Did not take any meds this morning besides inhaler. Was evaluated by Dr. Batres a few months back for questionable COPD although no PFTs on file. Pulm waiting on aortic valve replacement till patient is a candidate for PFTs. Admission Exam Per Admitting Provider General Appearance:WD/WN, vitals as above, NAD, sitting up in bed, pleasant, appears chronically ill Head: normocephalic, atraumatic Eyes:normal inspection, PERRL, conjunctivae normal, anicteric sclerae ENT: external ear and nose normal, oropharynx normal Neck: normal visual inspection, trachea midline, no thyromegaly Respiratory:normal respiratory effort, diffuse wheezes on exam. No accessory muscle use Cardiovascular: regular rate, rhythm, no murmur, normal peripheral pulses, no BLE edema. Vessels: no JVD Chest: normal inspection of chest Abdomen/GI: normal bowel sounds, soft, nontender, no hepatosplenomegaly Extremities/Musculoskeletal: no cyanosis or clubbing, extremities motor strength 5/5 Neurologic: PERRL, EOMI, accommodation nl, no face palsy, no dysarthria, CN's II-XI intact bilaterally and moves all extremities Psychiatric:A+Ox3, euthymic affect Skin: no rashes, + pale, warm/dry Principal Diagnosis GI bleed Symptomatic anemia Discharge Data Allergies Allergy/AdvReac Type Severity Reaction Status Date / Time RUBENS Inhibitors AdvReac Intermediate DROPS Verified 11/25/22 14:56 BLOOD PRESSURE lisinopril AdvReac Intermediate DROPS Verified 11/25/22 14:56 BLOOD PRESSURE Consultations 11/25/22 14:38 ED Decision to Admit Stat 11/25/22 15:05 Consult Gastroenterology Routine Procedures Performed Operation Date: 11/26/22 10:35 Actual Procedures s Esophagogastroduodenoscopy - Redd Sen, DO p Endoscopic Retrograde Cholangiopancreato - Redd Sen, DO Laboratory Results WBC 9.47 K/ul (4.8-10.8) 11/28/22 04:39 RBC 2.76 M/uL (4.70-6.10) L 11/28/22 04:39 Hgb 8.3 g/dl (14.0-18.0) L 11/28/22 04:39 Hct 26.3 % (42.0-52.0) L 11/28/22 04:39 MCV 95.3 fL (80.0-100.0) 11/28/22 04:39 MCH 30.1 pg (25.0-34.0) 11/28/22 04:39 MCHC 31.6 g/dL (32.0-36.0) L 11/28/22 04:39 RDW Std Deviation 64.1 fL (36.4-46.3) H 11/28/22 04:39 RDW Coeff of Chaka 18.6 % (11.5-14.5) H 11/28/22 04:39 Plt Count 303 K/uL (130-400) 11/28/22 04:39 MPV 9.7 fL (9.4-12.4) 11/28/22 04:39 Immature Gran % (Auto) 0.6 % 11/25/22 13:16 Neut % (Auto) 61.8 % 11/25/22 13:16 Lymph % (Auto) 17.7 % 11/25/22 13:16 Collier % (Auto) 8.4 % 11/25/22 13:16 Eos % (Auto) 10.4 % 11/25/22 13:16 Baso % (Auto) 1.1 % 11/25/22 13:16 Neut # (Auto) 6.46 K/uL (1.40-6.50) 11/25/22 13:16 Lymph # (Auto) 1.85 K/uL (1.2-3.4) 11/25/22 13:16 Collier # (Auto) 0.88 K/uL (0.11-0.59) H 11/25/22 13:16 Eos # (Auto) 1.09 K/uL (0-0.50) H 11/25/22 13:16 Baso # (Auto) 0.11 K/uL (0-0.2) 11/25/22 13:16 Immature Gran # (Auto) 0.06 K/uL (0.01-0.20) 11/25/22 13:16 Absolute Nucleated RBC 0.02 K/uL (0-0.12) 11/26/22 00:55 Nucleated RBC % (auto) 0.2 % 11/26/22 00:55 Polychromasia 1+ 11/25/22 13:16 Anisocytosis Present 11/25/22 13:16 PT 12.2 Seconds (9.0-12.0) H 11/25/22 13:16 INR 1.1 (0.9-1.1) 11/25/22 13:16 APTT 26.1 Seconds (21.0-31.0) 11/25/22 13:16 PTT Ratio 0.9 11/25/22 13:16 ABG pH 7.39 (7.35-7.45) 11/25/22 22:48 ABG pCO2 33 mmHg (35-46) L 11/25/22 22:48 ABG pO2 117 mmHg (80-95) H 11/25/22 22:48 ABG HCO3 20 mmol/L (19-24) 11/25/22 22:48 ABG O2 Saturation 99.2 % (90-95) H 11/25/22 22:48 ABG Base Excess -4.1 mEq/L (-9-1.8) 11/25/22 22:48 Rduy Test POS (Pos) 11/25/22 22:48 VBG pH 7.37 (7.36-7.41) 11/25/22 13:16 VBG pCO2 41 mmHg (38-50) 11/25/22 13:16 VBG pO2 24 mmHg 11/25/22 13:16 VBG HCO3 24 mmol/L 11/25/22 13:16 VBG O2 Saturation < 60.0 % 11/25/22 13:16 VBG Base Excess -1.5 mEq/L 11/25/22 13:16 Oxygen Given 2L 11/25/22 22:48 Sodium 138 mmol/L (136-145) 11/28/22 04:39 Potassium 3.9 mmol/L (3.5-5.1) 11/28/22 04:39 Chloride 106 mmol/L (98-107) 11/28/22 04:39 Carbon Dioxide 26 mmol/L (21-32) 11/28/22 04:39 Anion Gap 6 (3-11) 11/28/22 04:39 BUN 36 mg/dl (6-23) H 11/28/22 04:39 Creatinine 2.42 mg/dl (0.6-1.4) H 11/28/22 04:39 Est Cr Clr Drug Dosing 27.1 ml/min 11/28/22 04:39 Est GFR ( Amer) 29.4 ml/min 11/28/22 04:39 Est GFR (Non-Af Amer) 25.4 ml/min 11/28/22 04:39 BUN/Creatinine Ratio 14.9 (10-20) 11/28/22 04:39 Glucose 103 mg/dl (70-99(Fasting)) H 11/28/22 04:39 POC Glucose 149 mg/dl (70-99) H 11/28/22 11:48 Calcium 8.5 mg/dl (8.6-10.3) L 11/28/22 04:39 Magnesium 2.1 mg/dl (1.7-2.4) 11/27/22 04:50 Total Bilirubin 0.3 mg/dl (0.2-1.0) 11/25/22 13:16 AST 13 U/L (13-39) 11/25/22 13:16 ALT 9 U/L (7-52) 11/25/22 13:16 Alkaline Phosphatase 73 U/L (34-104) 11/25/22 13:16 Troponin I High Sens 26.4 pg/ml (0-20) H 11/25/22 21:29 B-Natriuretic Peptide 114 pg/ml (0-100) H 11/25/22 13:16 Total Protein 6.5 gm/dl (6.0-8.3) 11/25/22 13:16 Albumin 3.6 gm/dl (3.4-5.0) 11/25/22 13:16 Globulin 2.9 gm/dl (2.5-4.0) 11/25/22 13:16 Albumin/Globulin Ratio 1.2 (0.9-2) 11/25/22 13:16 Lipase 39 U/L (11-82) 11/25/22 13:16 SARS-CoV-2, RNA, NAAT NEGATIVE (NEGATIVE) 11/25/22 13:30 Blood Type A Positive 11/25/22 13:16 Antibody Screen NEGATIVE 11/25/22 13:16 Crossmatch See Detail 11/25/22 13:16 Impressions Abdomen/Pelvis CT 11/25/22 12:59 CT abd pelvis wo con CLINICAL HISTORY: luq pain TECHNIQUE: Helical axial images of the abdomen and pelvis were obtained. Automated dose lowering techniques and/or adjustment according to patient size were utilized for this exam. This exam was performed without intravenous contrast. CT DOSE: 1132.76 mGy.cm COMPARISON: Comparison is made to CT abdomen pelvis 11/03/2022 FINDINGS: Lower chest: Aortic valvular calcifications incidentally noted. Liver: Unremarkable. No focal lesions are seen. Gallbladder and biliary tree: Stents are seen within the common bile duct and cystic duct. No intra- or extrahepatic biliary ductal dilation. Pancreas: Pancreatic duct stent is seen. Spleen: Unremarkable. Adrenals: Unremarkable. Kidneys and ureters: Unremarkable. Bladder: Unremarkable. Reproductive organs: Unremarkable. Bowel: Diverticulosis is seen without evidence of diverticulitis. The appendix is normal. Metallic densities are seen in the stomach. Lymph nodes Retroperitoneal: Unremarkable. Pelvic: Unremarkable. Mesenteric: Unremarkable. Peritoneum: Normal. Vessels: Extensive atherosclerosis is seen with multiple aneurysms in the infrarenal aorta and bilateral iliac arteries, not significantly changed from prior exam. Abdominal wall: Surgical hardware is seen in the anterior abdominal wall possibly representing hernia repair. hernia is seen containing fat. Bones: Degenerative changes in the visualized spine. Posterior fixation hardware is seen spanning L5-S1. IMPRESSION: 1. Metallic densities are seen in the stomach, new from prior exam, which may represent ingested objects such as metallic clips. No perforation is seen. 2. 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 3. Additional findings as above. ACT 112: Negative or not required by law. Electronically signed by: Kai Alonso M.D. 11/25/2022 2:22 PM Chest X-Ray 11/25/22 22:42 SINGLE VIEW CHEST CLINICAL HISTORY: Dyspnea. FINDINGS: 2 AP, portable, upright chest radiographs are compared to study earlier the same day 11/25/2022 and correlated with chest CT dated 11/03/2022. The heart is enlarged noting atherosclerotic calcification and aneurysmal dilatation of the ascending thoracic aorta. The pulmonary vasculature is noncongested. Emphysema and chronic interstitial thickening is similar to previous. No airspace consolidation typical for pneumonia or pleural effusion is identified. Foci of parenchymal scarring in the left upper lung are similar to previous. No pneumothorax is seen. The skeletal structures are osteopenic. The bony thorax is grossly intact. Arthritic change is seen in the right shoulder. Surgical clips project over the upper abdomen. A catheter projects over the right upper quadrant of the abdomen. IMPRESSION: 1. Cardiomegaly and emphysema with no acute cardiopulmonary abnormality identified. No change from today's earlier study. 2. Chronic parenchymal changes as above. ACT 112: Negative or not required by law. Electronically signed by: Osmany George M.D. 11/26/2022 6:46 AM Ordered Studies 11/25/22 12:59 CT abd pelvis wo con Stat 11/26/22 [place] ERCP biliary ductal Routine Hospital Course (1) Melena: (2) Anemia due to chronic kidney disease: (3) Acute kidney injury superimposed on chronic kidney disease: (4) COPD (chronic obstructive pulmonary disease): (5) ANDREW (iron deficiency anemia): (6) Recurrent cerebrovascular accidents (CVAs): (7) Aortic stenosis: (8) History of GI bleed: (9) Hypertension: (10) Hyperlipidemia: (11) Sleep apnea: Plan Patient is a 72 yr male with H/O Chronic respiratory failure secondary to COPD on home O2, GINNY/nocturnal hypoxemia on CPAP, history PSVT, valvular heart disease (severe , mild AR), history TAA, AAA status post surgery, 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 Recently admitted from 11/02-11/07 for N/V, acute cholecystitis and acute on chronic melanotic GI bleed on anticoagulation. Underwent EGD/EUS/ERCP with removal of CBD stone, transpapillary gallbladder stenting for decompression by Dr. England with plans for repeat ERCP in 3 months at [facility] to remove the stents and place EUS guided GB drainage using Axios stent. GI bleed, in setting of anticoagulation Secondary to post sphincterotomy bleed S/P Cautery, stent placement Symptomatic anemia Anemia of chronic disease Hgb 6.2 on admission, endorses 1 melanotic stool daily x 8 days, on Plavix and apixaban for recurrent CVA S/P 2 units PRBCs --S/P EGD:Normal esophagus. An endoclip was found in the stomach. Normal duodenal bulb. Plastic biliary pancreatic stents in the duodenum. Blood in the area of the papilla. No specimens collected. --S/P ERCP: Prior biliary sphincterotomy appeared open. 3 visibly patent stents from the biliary tree in the pancreatic duct were seen in the major papula. Hemostasis of the sphincterotomy site with bipolar cautery was performed. Biliary tree was swept and clots were found. 1 covered metal stent was placed into the common bile duct for hemostasis. 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 COPD diagnosis awaiting PFTs, GINNY Has been evaluated by Dr Batres in clinic, determining etiology of resp failure as pulm vs cardiac. 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 These findings are new from 2009. Follow-up with vascular surgery is advised. 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 Needs follow-up with vascular surgery as able H/O PSVT Valvular heart disease (severe , mild AR) Was planned to be evaluated by [facility] CT surgery as per records Continue Metoprolol, monitor volume status Hyperlipidemia Continue statin H/O Waldenstrom macroglobulinemia Past tobacco abuse As per records DVT Px: SCDs Re: GI bleed Code status: FULL CODE Disposition Home Total Time Total Time Spent Total Time Spent (In Minutes): 56 minutes Discharge Plan Discharge Items Patient Disposition: Home - Self-Care Reason For Visit: GI BLEED, SOB Discharge Diagnosis: GI bleed Symptomatic anemia Activity: Per Instructions section Exercise/Sports: Wait until after follow-up appointment Non-emergency contact: Primary Care Provider and Web Content Specialist Call non-emergency contact if: you have any medication questions, your symptoms worsen, your pain is concerning for you and you have a fever Follow-up/Referrals: Jairo Kingston MD [Primary Care Provider] - Diet: Carb Consistent or DM2 and Heart Healthy Addtl Attending Provider Instructions: Follow-up with your primary care physician Dr. Kingston in 1 week Follow-up with account manager trainee Dr. Sen as scheduled. --- Complete the antibiotic course ciprofloxacin as prescribed. -- Hold taking Plavix, Eliquis for 3 more days as advised. Seek immediate medical attention if your symptoms reoccur or worsen Please take all medications as instructed on discharge list below. Please call if you have any questions or problems. You can reach a [facility] hospitalist on duty at [facility] 24 hours a day by calling [phone] Pending Studies at Discharge: No Stand-Alone Forms: My [facility], Smoking Cessation Medications and DC Order Prescriptions: New ciprofloxacin HCl 500 mg Tablet 500 mg PO DAILY Qty: 4 0RF Continued atorvastatin 80 mg tablet 80 mg PO QPM fluticasone propionate 50 mcg/actuation [place],Suspension 2 spray INTRANASAL DAILY cholecalciferol (vitamin D3) [D3-2000] 50 mcg (2,000 unit) capsule 2,000 unit PO QAM allopurinol 300 mg tablet 150 mg PO QAM albuterol sulfate 90 mcg/actuation HFA aerosol inhaler 2 puff INHALATION Q4 PRN (Reason: Wheezing) metoprolol tartrate 25 mg tablet 12.5 mg PO BID Patient Comments: TAKES 12.5 MG BID ezetimibe 10 mg Tablet 10 mg PO QAM (DME) Oxygen Home Liters Per Minute See Rx Instructions .Route Qty: 1 0RF Rx Instructions: 3 LPM with ambulation docusate sodium 100 mg Capsule 100 mg PO BID PRN (Reason: Constipation) Anoro Ellipta 62.5-25 mcg/actuation blister with device 1 inh inhalation DAILY sucralfate 100 mg/mL Suspension 1 g PO QIDM 30 Days Qty: 1200 0RF amlodipine [Norvasc] 5 mg Tablet 10 mg PO QAM 30 Days Qty: 60 0RF pantoprazole 40 mg Tablet,Delayed Release (Dr/Ec) 40 mg PO BID 30 Days Qty: 60 0RF Vitron-C 65 mg iron- 125 mg Tablet,Delayed Release (Dr/Ec) 1 tab PO QAM ipratropium-albuterol 0.5 mg-3 mg(2.5 mg base)/3 mL solution for nebulization 3 ml inhalation Q6H PRN (Reason: Shortness Of Breath) Held clopidogrel 75 mg tablet 75 mg PO QAM Hold Instructions: Resume on 12/02/22. If no recurrence of bleeding apixaban 5 mg Tablet 5 mg PO BID Hold Instructions: Resume on 12/02/22. If no recurrence of bleeding Discharge Orders: Discharge Order (Routine); Ordered 11/28/22 Ordered By: Lonny Rader Admission Data Admit Date/Time: 11/25/22 15:12 Attending Provider: Lonny Rader Admit Provider: Jessy Simpson Primary Care Provider: Jairo Kingston Other Providers: Jessy Simpson ; Toi Yee
== END 2022-11-28 14:55 | disposition home or self-care (01) | DRG 813 ==
LOC: ED 12:43 → 4W 15:12 → SUATTDRO 15:12 → 4W 16:11

== ENCOUNTER 2023-01-30 19:59 | Inpatient (IN) ==
[2023-01-30] MEDS ORDERED: methylPREDNISolone 125 MG/2 ML VIAL IV STA (20:35)
[2023-01-30] MEDS ORDERED: ALBUT/IPRATROP 3MG/0.5MG NEB 3 ML VIAL NEB STA (20:35)
--- NOTE | 2023-01-30 20:44 | Emergency Department Note ---
Impression & Plan SOB (shortness of breath), Bronchitis, COPD exacerbation, Wheezing, Anemia, CRF (chronic renal failure), Elevated troponin ED Provider Note NAME: ZULMA MERA AGE: 72 SEX: M : 1950 ARRIVES VIA: Ambulance INFORMANT: [Patient][family] ED PROVIDER(S): [Osmany Hartmann MD] CHIEF COMPLAINT: Short of breath HISTORY OF PRESENT ILLNESS: The patient is a 72-year-old male with a history of presumed COPD. He wears 2 L of oxygen at all times. His family has been sick with some sort of bronchitis or respiratory bug. The patient's been coughing more. Tonight, he had a coughing spell and could not catch his breath. He was very short of breath. The ambulance was called. He received a nebulizer at home and then 1 in route. He does feel a bit better. He states his cough has been productive of some thick phlegm. He has not had a fever. No increasing leg edema. No chills. The patient feels he is worsening the last few days and at this point, is not comfortable being discharged home. PMHx/PSHx: See Below SOCIAL HISTORY: See Below. PHYSICAL EXAM: GENERAL: Patient is in no acute distress. HEENT: No acute trauma, normocephalic atraumatic, mucous membranes moist, no nasal congestion. NECK: No stridor, no adenopathy, no meningismus, trachea is midline. LUNGS: Wheezing bilaterally, breath sounds are diminished bilaterally. Currently, no respiratory distress. HEART: 3/6 systolic murmur, regular rate and rhythm. ABDOMEN: Soft, nontender, bowel sounds positive, no peritonitis. EXTREMITIES: No cyanosis, moderate bilateral pedal edema, full range of motion of all the joints without pain or difficulty, no signs for acute trauma. NEUROLOGIC: Oriented x 3, no acute motor or sensory deficits, no focal weakness. SKIN: No rash, no jaundice, no diaphoresis. DIFFERENTIAL DIAGNOSIS: Bronchitis or pneumonia, exacerbation of COPD, viral illness, anemia, electrolyt e imbalance, CHF, UT, among others. EMERGENCY DEPARTMENT COURSE/PROCEDURES: Prior/Outside records reviewed: EMS notes. ECG per my interpretation: Indication was shortness of breath. ECG shows what appears to be a normal sinus rhythm with some baseline artifact. The rate is 88. LVH is present. There is no ST elevation, no PVCs but the QTc is 479. Continuous Cardiac Monitoring per my interpretation: An order was placed for continuous cardiac monitoring. The monitor shows a rate of 85 with normal sinus rhythm. MEDICAL DECISION MAKING: There is no leukocytosis. The patient is anemic however, this is baseline looking back at previous testing. Platelet clumps were present indicating an adequate platelet count. No coagulopathy. Creatinine was high at 2.46, this is baseline for the patient. No concerning liver enzyme elevation. ECG shows what seems to be a sinus rhythm, no obvious ischemia. Cardiac enzyme testing x1 was slightly elevated, a slight troponin elevation has been seen before and likely represents some mismatch from his dyspnea. Chest x-ray per my review does not show mediastinal widening, pneumonia or pneumothorax. Chronic changes were seen. His film today appears very similar to previous films. COVID, influenza and RSV test were negative. On exam, the patient was wheezing. He had already received 2 nebs prior to arrival. A third neb was given here in the ED. He was given IV Solu-Medrol. Given his dyspnea, given his worsening shortness of breath and cough the last few days, given the need for 3 Nebs, I do think a hospital stay would be warranted. I did speak with the patient and case management, the on-call hospitalist was consulted. In short, the patient appears to have bronchitis with a flare of his COPD. DISPOSITION: Patient presentation and findings warrant a hospital stay. 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 Ascending thoracic aorta at the level of the right pulmonary artery 4.2 cm unchanged. 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 Descending thoracic aorta at the level of the left atrium again up to 4.7 cm. Aortic stenosis Thoracic aortic atherosclerosis, densely calcified coronary arteries, severely calcified aortic valve, aneurysmal outpouching of the aortic arch. CKD (chronic kidney disease), stage III follows with [facility] nephrology Gastric ulcer Hearing deficit BL NAILS History of GI bleed Hx of gout Hx SBO Hyperlipidemia Hypertension ANDREW (iron deficiency anemia) Obesity Paroxysmal ventricular tachycardia 19 beat run of ventricular tachycardia via Zio monitoring PFO (patent foramen ovale) per records. follows with Dr. 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 TO HAVE SLIGHT BALANCE ISSUES Surgical History History of esophagogastroduodenoscopy (EGD) History of lumbar surgery 1999 History of tonsillectomy History of tonsillectomy and adenoidectomy History of tooth extraction Hx of colonoscopy Hx of hernia repair lysis of adhesions, incisional hernia repair laparoscopically 01/28/2010 at [facility] - Dr Desouza S/P AAA repair 01/13/2009 - Dr Suazo ([facility] AT [facility]) Family History Other AAA (abdominal aortic aneurysm) Hypertension No family history of adverse response to anesthesia Social History Smoking Status: Former smoker Tobacco Type: Cigarettes Age Started Using Tobacco: 18; Cigarettes Per Day: Former cigarette. Quit 1998; Second Hand Exposure: No; Do You Dip or Chew Tobacco: No; Hx Alcohol Use: No Hx Substance Use: No Preferred Language: Latvian Communication Ability: Effective Manager Bakery Required: No Beliefs That Will Affect Care: None marital status: Current Living Situation: Spouse and Family Current Living Situation Comment: daughter just moved in with him current occupational status: employed Feels Safe at Home: Yes Assistive Devices: Cane and Walker Allergies Allergies Allergy/AdvReac Type Severity Reaction Status Date / Time RUBENS Inhibitors AdvReac Intermediate DROPS Verified 01/30/23 23:10 BLOOD PRESSURE lisinopril AdvReac Intermediate DROPS Verified 01/30/23 23:10 BLOOD PRESSURE Home Meds Home Medications Medication Instructions Recorded Confirmed albuterol sulfate 90 mcg/actuation 2 puff inhalation Q4H PRN 01/30/23 01/30/23 aerosol inhaler Shortness Of Breath Or Wheezing allopurinol 300 mg tablet 150 mg PO DAILY 01/30/23 01/30/23 allopurinol 300 mg tablet 450 mg PO DAILY 01/30/23 01/30/23 amlodipine 10 mg tablet 10 mg PO DAILY 01/30/23 01/30/23 atorvastatin 80 mg tablet 80 mg PO DAILY 01/30/23 01/30/23 azelastine 137 mcg (0.1 %) nasal 1 spray intranasal BID 01/30/23 01/30/23 spray aerosol cholecalciferol (vitamin D3) 50 50 mcg PO DAILY 01/30/23 01/30/23 mcg (2,000 unit) tablet (Vitamin D3) docusate sodium 100 mg capsule 100 mg PO BID PRN Constipation 01/30/23 01/30/23 ezetimibe 10 mg tablet 10 mg PO DAILY 01/30/23 01/30/23 ferrous sulfate 325 mg (65 mg 325 mg PO DAILY 01/30/23 01/30/23 iron) tablet furosemide 20 mg tablet 20 mg PO BID 01/30/23 01/30/23 ipratropium 0.5 mg-albuterol 3 mg 3 ml inhalation Q6H PRN Shortness 01/30/23 01/30/23 (2.5 mg base)/3 mL nebulization Of Breath Or Wheezing soln iron,carbonyl 65 mg-vitamin C 125 1 tab PO DAILY 01/30/23 01/30/23 mg tablet,delayed release (Vitron-C) metoprolol tartrate 25 mg tablet 37.5 mg PO BID 01/30/23 01/30/23 pantoprazole 40 mg tablet,delayed 40 mg PO BID 01/30/23 01/30/23 release potassium chloride 10 mEq 10 meq PO UD 01/30/23 01/30/23 tablet,extended release(part/cryst) (Klor-Con M) sucralfate 100 mg/mL oral 10 ml PO BID 01/30/23 01/30/23 suspension umeclidinium 62.5 mcg-vilanterol 1 inh inhalation DAILY 01/30/23 01/30/23 25 mcg/actuation powdr for inhalation (Anoro Ellipta) Previous Rx's Medication Instructions Recorded Oxygen Home #1 ea 08/09/22 Results & Data (ED) Vital Signs Vital Signs - 24 hr 01/30/23 20:06 01/30/23 20:14 01/30/23 20:14 Temperature 36.9 C Temperature Source Temporal Artery Scan Pulse Rate 88 90 Pulse Rate [Finger] Pulse Rhythm Regular Pulse Rhythm [Finger] Pulse Strength Normal Pulse Strength [Finger] Respiratory Rate 24 Respiratory Effort / Characteristics Non-Labored Respiratory Depth Normal Respiratory Pattern Blood Pressure 120/61 Blood Pressure [Right Arm] Blood Pressure Mean 80 Blood Pressure Mean [Right Arm] Blood Pressure Position Sitting Pulse Oximetry 96 97 Oxygen Delivery Method Nasal Cannula Nasal Cannula Oxygen Flow Rate 2 2 Sepsis Recent Fever Within 48 Hours No Sepsis New/Unexplained Change in Mental Status N/A Sepsis Action Taken by Nursing No Action Required 01/30/23 20:14 01/30/23 20:14 01/30/23 22:00 Temperature 36.9 C Temperature Source Oral Pulse Rate 90 Pulse Rate [Finger] 90 85 Pulse Rhythm Regular Pulse Rhythm [Finger] Regular Pulse Strength Pulse Strength [Finger] Normal Respiratory Rate 24 24 20 Respiratory Effort / Characteristics Non-Labored Spontaneous Short of Breath Non-Labored Spontaneous Respiratory Depth Normal Normal Respiratory Pattern Regular Blood Pressure Blood Pressure [Right Arm] 120/61 139/73 Blood Pressure Mean Blood Pressure Mean [Right Arm] 80 95 Blood Pressure Position Pulse Oximetry 96 96 93 Oxygen Delivery Method Nasal Cannula Nasal Cannula Room Air Oxygen Flow Rate 2 2 Sepsis Recent Fever Within 48 Hours Sepsis New/Unexplained Change in Mental Status Sepsis Action Taken by Intermediate Medications Current Medication List: was personally reviewed by me Laboratory Data Attestation: I reviewed the patient's lab results. 01/30/23 20:15 01/30/23 20:15 Lab Results 01/30/23 01/30/23 01/30/23 Range/Units 20:15 20:15 20:15 WBC 9.58 (4.8-10.8) K/ul RBC 3.11 L (4.70-6.10) M/uL Hgb 8.9 L (14.0-18.0) g/dl Hct 28.8 L (42.0-52.0) % MCV 92.6 (80.0-100.0) fL MCH 28.6 (25.0-34.0) pg MCHC 30.9 L (32.0-36.0) g/dL RDW Std Deviation 62.6 H (36.4-46.3) fL RDW Coeff of Chaka 18.6 H (11.5-14.5) % Plt Count (130-400) K/uL MPV Not Reportable Immature Gran % (Auto) 1.5 % Neut % (Auto) 59.6 % Lymph % (Auto) 17.2 % Mccormick % (Auto) 7.9 % Eos % (Auto) 13.1 % Baso % (Auto) 0.7 % Neut # (Auto) 5.63 (1.40-6.50) K/uL Lymph # (Auto) 1.63 (1.20-3.40) K/uL Mccormick # (Auto) 0.75 H (0.11-0.59) K/uL Eos # (Auto) 1.24 H (0.00-0.50) K/uL Baso # (Auto) 0.07 (0.00-0.20) K/uL Immature Gran # (Auto) 0.14 (0.01-0.20) K/uL Ovalocytes 1+ PT Cancelled INR Cancelled APTT Cancelled PTT Ratio Cancelled Sodium 136 (136-145) mmol/L Potassium 3.9 (3.5-5.1) mmol/L Chloride 103 (98-107) mmol/L Carbon Dioxide 24 (21-32) mmol/L Anion Gap 9 (3-11) BUN 24 H (6-23) mg/dl Creatinine 2.46 H (0.6-1.4) mg/dl Est Cr Clr Drug Dosing 23.8 ml/min Est GFR ( Amer) 28.8 ml/min Est GFR (Non-Af Amer) 24.9 ml/min BUN/Creatinine Ratio 9.8 L (10-20) Glucose 100 H (70-99(Fasting)) mg/dl Calcium 9.1 (8.6-10.3) mg/dl Total Bilirubin 0.5 (0.2-1.0) mg/dl AST 25 (13-39) U/L ALT 17 (7-52) U/L Alkaline Phosphatase 110 H (34-104) U/L Troponin I High Sens 23.1 H (0-20) pg/ml Total Protein 7.2 (6.0-8.3) gm/dl Albumin 3.8 (3.4-5.0) gm/dl Globulin 3.4 (2.5-4.0) gm/dl Albumin/Globulin Ratio 1.1 (0.9-2) SARS-CoV-2 (PCR) (Negative) Influenza Type A (PCR) (Neg) Influenza Type B (PCR) (Neg) RSV (RT-PCR) (Neg) 10/15/23 10/15/23 10/15/23 Range/Units 20:15 21:08 21:10 WBC (4.8-10.8) K/ul RBC (4.70-6.10) M/uL Hgb (14.0-18.0) g/dl Hct (42.0-52.0) % MCV (80.0-100.0) fL MCH (25.0-34.0) pg MCHC (32.0-36.0) g/dL RDW Std Deviation (36.4-46.3) fL RDW Coeff of Chaka (11.5-14.5) % Plt Count (130-400) K/uL MPV Immature Gran % (Auto) % Neut % (Auto) % Lymph % (Auto) % Mccormick % (Auto) % Eos % (Auto) % Baso % (Auto) % Neut # (Auto) (1.40-6.50) K/uL Lymph # (Auto) (1.20-3.40) K/uL Mccormick # (Auto) (0.11-0.59) K/uL Eos # (Auto) (0.00-0.50) K/uL Baso # (Auto) (0.00-0.20) K/uL Immature Gran # (Auto) (0.01-0.20) K/uL Ovalocytes PT 11.8 INR 1.1 APTT 29.3 PTT Ratio 1.0 Sodium (136-145) mmol/L Potassium (3.5-5.1) mmol/L Chloride (98-107) mmol/L Carbon Dioxide (21-32) mmol/L Anion Gap (3-11) BUN (6-23) mg/dl Creatinine (0.6-1.4) mg/dl Est Cr Clr Drug Dosing ml/min Est GFR ( Amer) ml/min Est GFR (Non-Af Amer) ml/min BUN/Creatinine Ratio (10-20) Glucose (70-99(Fasting)) mg/dl Calcium (8.6-10.3) mg/dl Total Bilirubin (0.2-1.0) mg/dl AST (13-39) U/L ALT (7-52) U/L Alkaline Phosphatase (34-104) U/L Troponin I High Sens 23.2 H (0-20) pg/ml Total Protein (6.0-8.3) gm/dl Albumin (3.4-5.0) gm/dl Globulin (2.5-4.0) gm/dl Albumin/Globulin Ratio (0.9-2) SARS-CoV-2 (PCR) NEGATIVE (Negative) Influenza Type A (PCR) Negative (Neg) Influenza Type B (PCR) Negative (Neg) RSV (RT-PCR) Negative (Neg) Administered Medications Discontinued Medications Albuterol (Albut/Ipratrop 3mg/0.5mg Neb 3 Ml Vial) 3 ml NEB NOW STA; Protocol Stop: 01/30/23 20:36 Last Admin: 01/30/23 20:41 Dose: 3 ml Documented By: PRISCILLA Methylprednisolone (Methylprednisolone 125 Mg/2 Ml Vial) 125 mg IV NOW STA Stop: 01/30/23 20:36 Last Admin: 01/30/23 20:42 Dose: 125 mg Documented By: PRISCILLA Imaging Data Attestation: I personally reviewed and interpreted this imaging study as follows: My Impression: Chest x-ray per my review: There are some chronic changes and findings of COPD, no infiltrate or pneumothorax per my review. Discharge Plan Visit Data Chief Complaint: Shortness of Breath/Dyspnea ED Provider: Osmany Hartmann Discharge Problem: SOB (shortness of breath), Bronchitis, COPD exacerbation, Wheezing, Anemia, CRF (chronic renal failure), Elevated troponin Patient Disposition: Admitted As Inpatient Condition: Fair
[2023-01-30 21:01] LABS: Albumin Globulin Ratio 1.1 (0.9-2); Albumin Level 3.8 gm/dl (3.4-5.0); BUN Creatinine Ratio 9.8 (10-20); Bilirubin,Total 0.5 mg/dl (0.2-1.0); Calcium 9.1 mg/dl (8.6-10.3); Creatinine Clr Calc Pharmacy 23.8 ml/min; Est GFR (African American) 28.8 ml/min; Est GFR (Non-African American) 24.9 ml/min; Globulin 3.4 gm/dl (2.5-4.0); Potassium 3.9 mmol/L (3.5-5.1); Total Protein 7.2 gm/dl (6.0-8.3)
[2023-01-30 21:03] LABS: Hematocrit (blood only) 28.8 % (42.0-52.0); Hemoglobin 8.9 g/dl (14.0-18.0); Mean Corpuscular Hemoglobin 28.6 pg (25.0-34.0); Mean Corpuscular Hgb Conc 30.9 g/dL (32.0-36.0); Mean Corpuscular Volume 92.6 fL (80.0-100.0); RDW Coefficient of Variation 18.6 % (11.5-14.5); RDW Standard Deviation 62.6 fL (36.4-46.3); Red Blood Count 3.11 M/uL (4.70-6.10); White Blood Count 9.58 K/ul (4.8-10.8)
[2023-01-30 21:07] LABS: Troponin I High Sensitivity 23.1 pg/ml (0-20)
[2023-01-30 21:17] LABS: Influenza A virus by PCR Negative (Neg); Influenza B virus by PCR Negative (Neg); RSV by PCR Negative (Neg); SARS CoV2 RNA(COVID-19) Ceph NEGATIVE (Negative)
[2023-01-30 21:36] LABS: Basophils # (auto) 0.07 K/uL (0.00-0.20); Basophils % (auto) 0.7 %; Eosinophils # (auto) 1.24 K/uL (0.00-0.50); Eosinophils % (auto) 13.1 %; Immature Granulocytes # (auto) 0.14 K/uL (0.01-0.20); Immature Granulocytes % (auto) 1.5 %; Lymphocytes # (auto) 1.63 K/uL (1.20-3.40); Lymphocytes % (auto) 17.2 %; Monocytes # (auto) 0.75 K/uL (0.11-0.59); Monocytes % (auto) 7.9 %; Neutrophils # (auto) 5.63 K/uL (1.40-6.50); Neutrophils % (auto) 59.6 %; Ovalocytes 1+
[2023-01-30 21:51] LABS: INR 1.1 (0.9-1.1); Partial Thromboplastin Time 29.3 Seconds (21.0-31.0); Prothrombin Time 11.8 Seconds (9.0-12.0)
[2023-01-30] MEDS ORDERED: POLYETHYLENE (MIRALAX) 17 GM PACK PO PRN (23:43)
[2023-01-30] MEDS ORDERED: ALBUTEROL HFA 8 GM INHALER INH PRN (23:43)
[2023-01-30] MEDS ORDERED: ACETAMINOPHEN 325 MG TAB PO PRN (23:43)
[2023-01-30] MEDS ORDERED: NITROGLYCERIN SL 0.4 MG/TAB TAB SL PRN (23:43)
[2023-01-31] MEDS: ALBUT/IPRATROP 3MG/0.5MG NEB 3 ML VIAL NEB PRN ×2 (00:30→03:00)
--- NOTE | 2023-01-31 00:44 | History & Physical Report ---
Date of Service January 30, 2023 Assessment & Plan (1) COPD exacerbation: Plan: 72-year-old male with past med significant for hyperlipidemia, hyperparathyroidism, idiopathic chronic gout, COPD, obstructive sleep apnea on CPAP, hypertension, left renal artery stenosis, abdominal aortic aneurysm, severe arctic stenosis, chronic diastolic CHF, shaggy aorta syndrome, chronic kidney stage IV, iron deficiency anemia due to chronic blood loss, Waldenstrm's macroglobulinemia, history of AAA repair, history of CVA, history of SVT, history of biliary stent insertion, recently had multiple admission for GI bleed currently on monthly IM octreotide injection as per GI. Plavix is discontinued currently is on Eliquis 2.5 units twice daily and also getting every other week IV iron infusions and plan for Aranesp injections lives with his and daughter was brought in because of worsening cough and shortness of breath. Shortness of breath COPD exasperation On home oxygen 2 L COVID and flu negative Continue IV Solu-Medrol, nebs [id number] and as needed at home inhalers Close monitor requests pulmonary consult. Obstructive sleep apnea CPAP nightly Chronic diastolic CHF Severe aortic stenosis Recently cardiology increase Lasix but patient seems still taking Lasix 20 mg 3 times daily Which we will continue for now Monitor for volume overload History of GI bleed Recent multiple admissions Seems to be on octreotide injections currently Hemoglobin seems stable We will monitor CKD stage IV Creatinine 2.4 with seems to be her around baseline Mild elevated troponin Mostly demand ischemia and from renal disease History of CVAs Currently on Eliquis History of gout On allopurinol Hypertension On amlodipine, metoprolol diuretics We will monitor Hyperlipidemia On statin DVT prophylaxis On Eliquis Disposition med/telemetry Full code Admission and Anticipated Discharge Date Admission Date: January 30, 2023 History of Present Illness Chief Complaint: Shortness of breath and cough Primary Care Provider: Jairo Kingston MD 72-year-old male with past med significant for hyperlipidemia, hyperparathyroidism, idiopathic chronic gout, COPD, obstructive sleep apnea on CPAP, hypertension, left renal artery stenosis, abdominal aortic aneurysm, severe arctic stenosis, chronic diastolic CHF, shaggy aorta syndrome, chronic kidney stage IV, iron deficiency anemia due to chronic blood loss, Waldenstrm's macroglobulinemia, history of AAA repair, history of CVA, history of SVT, history of biliary stent insertion, recently had multiple admission for GI bleed currently on monthly IM octreotide injection as per GI. Plavix is discontinued currently is on Eliquis 2.5 units twice daily and also getting every other week IV iron infusions and plan for Aranesp injections lives with his and daughter was brought in because of worsening cough and shortness of breath. Whole family is sick with some viral infection. Denies any fevers. Appetite is down. No chest pain. No nausea. No abdominal pain. No diarrhea. Normal micturition. No headaches. Somewhat hard to hear. Hemodynamics stable currently. Past medical history as mentioned above Past surgical history. Abdominal aortic aneurysm repair, colonoscopy with biopsy, EGD, EGD with cyst drainage, EGD with endoscopic ultrasound, ERCP, incisional hernia repair and lysis of adhesions laparoscopically. Lumbar disc excision, tonsillectomy, tear duct system surgery. Social history. . Quit smoking in 2008. Smoked 1 pack a day for 35 years. Alcohol 3 standard drinks per week. No drug use. Family history. Father had AAA. Mother had dialysis. Brother hypertension. Heart disease. Sister has heart disease. Allergies Allergy/AdvReac Type Severity Reaction Status Date / Time RUBENS Inhibitors AdvReac Intermediate DROPS Verified 01/30/23 23:10 BLOOD PRESSURE lisinopril AdvReac Intermediate DROPS Verified 01/30/23 23:10 BLOOD PRESSURE Home Medications Medication Instructions Recorded Confirmed Type Oxygen Home #1 ea 08/09/22 10/14/22 Rx albuterol sulfate 90 mcg/actuation 2 puff inhalation Q4H PRN 01/30/23 01/30/23 History aerosol inhaler Shortness Of Breath Or Wheezing allopurinol 300 mg tablet 150 mg PO DAILY 01/30/23 01/30/23 History allopurinol 300 mg tablet 450 mg PO DAILY 01/30/23 01/30/23 History amlodipine 10 mg tablet 10 mg PO DAILY 01/30/23 01/30/23 History atorvastatin 80 mg tablet 80 mg PO DAILY 01/30/23 01/30/23 History azelastine 137 mcg (0.1 %) nasal 1 spray intranasal BID 01/30/23 01/30/23 History spray aerosol cholecalciferol (vitamin D3) 50 50 mcg PO DAILY 01/30/23 01/30/23 History mcg (2,000 unit) tablet (Vitamin D3) docusate sodium 100 mg capsule 100 mg PO BID PRN Constipation 01/30/23 01/30/23 History ezetimibe 10 mg tablet 10 mg PO DAILY 01/30/23 01/30/23 History ferrous sulfate 325 mg (65 mg 325 mg PO DAILY 01/30/23 01/30/23 History iron) tablet furosemide 20 mg tablet 20 mg PO BID 01/30/23 01/30/23 History ipratropium 0.5 mg-albuterol 3 mg 3 ml inhalation Q6H PRN Shortness 01/30/23 01/30/23 History (2.5 mg base)/3 mL nebulization Of Breath Or Wheezing soln iron,carbonyl 65 mg-vitamin C 125 1 tab PO DAILY 01/30/23 01/30/23 History mg tablet,delayed release (Vitron-C) metoprolol tartrate 25 mg tablet 12.5 mg PO BID 01/30/23 01/31/23 History pantoprazole 40 mg tablet,delayed 40 mg PO BID 01/30/23 01/30/23 History release potassium chloride 10 mEq 10 meq PO UD 01/30/23 01/30/23 History tablet,extended release(part/cryst) (Klor-Con M) sucralfate 100 mg/mL oral 10 ml PO BID 01/30/23 01/30/23 History suspension umeclidinium 62.5 mcg-vilanterol 1 inh inhalation DAILY 01/30/23 01/30/23 History 25 mcg/actuation powdr for inhalation (Anoro Ellipta) apixaban 2.5 mg tablet (Eliquis) 2.5 mg PO BID 01/31/23 01/31/23 History Past Med/Surg History Medical History Aneurysm CT chest w/o contrast 06/25/22 - 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 Ascending thoracic aorta at the level of the right pulmonary artery 4.2 cm unchanged. 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 Descending thoracic aorta at the level of the left atrium again up to 4.7 cm. Aortic stenosis Thoracic aortic atherosclerosis, densely calcified coronary arteries, severely calcified aortic valve, aneurysmal outpouching of the aortic arch. CKD (chronic kidney disease), stage III follows with [facility] nephrology Gastric ulcer Hearing deficit BL NAILS History of GI bleed Hx of gout Hx SBO Hyperlipidemia Hypertension ANDREW (iron deficiency anemia) Obesity Paroxysmal ventricular tachycardia 19 beat run of ventricular tachycardia via Zio monitoring PFO (patent foramen ovale) per records. follows with Dr. 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 TO HAVE SLIGHT BALANCE ISSUES Surgical History History of esophagogastroduodenoscopy (EGD) History of lumbar surgery 1999 History of tonsillectomy History of tonsillectomy and adenoidectomy History of tooth extraction Hx of colonoscopy Hx of hernia repair lysis of adhesions, incisional hernia repair laparoscopically 01/28/2010 at [facility] - Dr Desouza S/P AAA repair 01/13/2009 - Dr Suazo ([facility] AT [facility]) Family History Other AAA (abdominal aortic aneurysm) Hypertension No family history of adverse response to anesthesia Social History Smoking Status: Former smoker Tobacco Type: Cigarettes Age Started Using Tobacco: 18; Cigarettes Per Day: Former cigarette. Quit 1998; Second Hand Exposure: No; Do You Dip or Chew Tobacco: No; Hx Alcohol Use: No Hx Substance Use: No Preferred Language: Mongolian Communication Ability: Effective Ham Facer Required: No Beliefs That Will Affect Care: None marital status: Current Living Situation: Spouse Current Living Situation Comment: daughter just moved in with him current occupational status: employed Feels Safe at Home: Yes Assistive Devices: Cane and Walker Review of Systems Review of Systems: All systems reviewed & are unremarkable except as noted in HPI & below Physical Exam Physical Exam: General- Not in distress Head- atraumatic Eyes- PERRL. ENT- oropharynx clear Neck- supple, no JVD. Lungs- clear to auscultation mild b/l wheezing no crackles Heart- regular rhythm; no murmur, no gallop. Abdomen- normal bowel sounds, soft, nontender, no distension. Extremities- no pretibial edema, no erythema seen. Neuro- alert, oriented x 3; PERRL, no facial palsy; no dysarthria; Skin- warm & dry Results & Data Results & Data Vital Signs (Past 12 Hours) Vital Signs Temp Pulse Pulse Resp BP BP Pulse Ox 01/30/23 22:45 93 01/30/23 22:00 85 20 139/73 93 01/30/23 20:14 90 24 96 01/30/23 20:14 36.9 C 90 24 120/61 96 01/30/23 20:14 97 01/30/23 20:14 36.9 C 90 24 120/61 96 01/30/23 20:06 88 O2 Del Method O2 Flow Rate 01/30/23 22:45 Nasal Cannula 2 01/30/23 22:00 Room Air 01/30/23 20:14 Nasal Cannula 2 01/30/23 20:14 Nasal Cannula 2 01/30/23 20:14 Nasal Cannula 2 01/30/23 20:14 Nasal Cannula 2 01/30/23 20:06 Diagnostic Findings Laboratory Results WBC 9.58 K/ul (4.8-10.8) 01/30/23 20:15 RBC 3.11 M/uL (4.70-6.10) L 01/30/23 20:15 Hgb 8.9 g/dl (14.0-18.0) L 01/30/23 20:15 Hct 28.8 % (42.0-52.0) L 01/30/23 20:15 MCV 92.6 fL (80.0-100.0) 01/30/23 20:15 MCH 28.6 pg (25.0-34.0) 01/30/23 20:15 MCHC 30.9 g/dL (32.0-36.0) L 01/30/23 20:15 RDW Std Deviation 62.6 fL (36.4-46.3) H 01/30/23 20:15 RDW Coeff of Chaka 18.6 % (11.5-14.5) H 01/30/23 20:15 Plt Count K/uL (130-400) 01/30/23 20:15 MPV Not Reportable 01/30/23 20:15 Immature Gran % (Auto) 1.5 % 01/30/23 20:15 Neut % (Auto) 59.6 % 01/30/23 20:15 Lymph % (Auto) 17.2 % 01/30/23 20:15 [place] % (Auto) 7.9 % 01/30/23 20:15 Eos % (Auto) 13.1 % 01/30/23 20:15 Baso % (Auto) 0.7 % 01/30/23 20:15 Neut # (Auto) 5.63 K/uL (1.40-6.50) 01/30/23 20:15 Lymph # (Auto) 1.63 K/uL (1.20-3.40) 01/30/23 20:15 [place] # (Auto) 0.75 K/uL (0.11-0.59) H 01/30/23 20:15 Eos # (Auto) 1.24 K/uL (0.00-0.50) H 01/30/23 20:15 Baso # (Auto) 0.07 K/uL (0.00-0.20) 01/30/23 20:15 Immature Gran # (Auto) 0.14 K/uL (0.01-0.20) 01/30/23 20:15 Ovalocytes 1+ 01/30/23 20:15 PT 11.8 Seconds (9.0-12.0) 01/30/23 21:08 INR 1.1 (0.9-1.1) 01/30/23 21:08 APTT 29.3 Seconds (21.0-31.0) 01/30/23 21:08 PTT Ratio 1.0 01/30/23 21:08 Sodium 136 mmol/L (136-145) 01/30/23 20:15 Potassium 3.9 mmol/L (3.5-5.1) 01/30/23 20:15 Chloride 103 mmol/L (98-107) 01/30/23 20:15 Carbon Dioxide 24 mmol/L (21-32) 01/30/23 20:15 Anion Gap 9 (3-11) 01/30/23 20:15 BUN 24 mg/dl (6-23) H 01/30/23 20:15 Creatinine 2.46 mg/dl (0.6-1.4) H 01/30/23 20:15 Est Cr Clr Drug Dosing 23.8 ml/min 01/30/23 20:15 Est GFR ( Amer) 28.8 ml/min 01/30/23 20:15 Est GFR (Non-Af Amer) 24.9 ml/min 01/30/23 20:15 BUN/Creatinine Ratio 9.8 (10-20) L 01/30/23 20:15 Glucose 100 mg/dl (70-99(Fasting)) H 01/30/23 20:15 Calcium 9.1 mg/dl (8.6-10.3) 01/30/23 20:15 Total Bilirubin 0.5 mg/dl (0.2-1.0) 01/30/23 20:15 AST 25 U/L (13-39) 01/30/23 20:15 ALT 17 U/L (7-52) 01/30/23 20:15 Alkaline Phosphatase 110 U/L (34-104) H 01/30/23 20:15 Troponin I High Sens 23.2 pg/ml (0-20) H 01/30/23 21:10 Total Protein 7.2 gm/dl (6.0-8.3) 01/30/23 20:15 Albumin 3.8 gm/dl (3.4-5.0) 01/30/23 20:15 Globulin 3.4 gm/dl (2.5-4.0) 01/30/23 20:15 Albumin/Globulin Ratio 1.1 (0.9-2) 01/30/23 20:15 SARS-CoV-2 (PCR) NEGATIVE (Negative) 01/30/23 20:15 Influenza Type A (PCR) Negative (Neg) 01/30/23 20:15 Influenza Type B (PCR) Negative (Neg) 01/30/23 20:15 RSV (RT-PCR) Negative (Neg) 01/30/23 20:15 Code Status & VTE Plan VTE Prophylaxis Plan VTE Prophylaxis will be ordered: Yes
[2023-01-31] MEDS ORDERED: DOCUSATE SODIUM 100 MG CAP PO PRN (01:08)
[2023-01-31] MEDS ORDERED: ALBUT/IPRATROP 3MG/0.5MG NEB 3 ML VIAL NEB ONE (03:12)
[2023-01-31 04:51] LABS: BUN Creatinine Ratio 9.8 (10-20); Calcium 9.5 mg/dl (8.6-10.3); Creatinine Clr Calc Pharmacy 23.9 ml/min; Magnesium 1.8 mg/dl (1.7-2.4); Potassium 4.5 mmol/L (3.5-5.1)
[2023-01-31] MEDS: methylPREDNISolone 40 MG in SYRINGE 0 ML IV SCH ×3 (05:47→21:00)
[2023-01-31 05:57] LABS: Basophils # (auto) 0.02 K/uL (0.00-0.20); Basophils % (auto) 0.3 %; Hematocrit (blood only) 30.5 % (42.0-52.0); Hemoglobin 9.6 g/dl (14.0-18.0); Immature Granulocytes # (auto) 0.07 K/uL (0.01-0.20); Immature Granulocytes % (auto) 0.9 %; Lymphocytes # (auto) 0.35 K/uL (1.20-3.40); Lymphocytes % (auto) 4.5 %; Mean Corpuscular Hemoglobin 28.7 pg (25.0-34.0); Mean Corpuscular Hgb Conc 31.5 g/dL (32.0-36.0); Monocytes # (auto) 0.06 K/uL (0.11-0.59); Monocytes % (auto) 0.8 %; Neutrophils # (auto) 7.25 K/uL (1.40-6.50); Neutrophils % (auto) 93.5 %; RDW Coefficient of Variation 18.4 % (11.5-14.5); Red Blood Count 3.35 M/uL (4.70-6.10); White Blood Count 7.75 K/ul (4.8-10.8)
[2023-01-31] MEDS: ALBUT/IPRATROP 3MG/0.5MG NEB 3 ML VIAL NEB SCH ×4 (06:51→20:17)
--- NOTE | 2023-01-31 07:44 | XRay Report ---
XR chest 1V not portable CLINICAL HISTORY: Chest pain, nonspecific TECHNIQUE: Single frontal radiograph of the chest was obtained. Comparison: Comparison is made to chest radiograph 12/28/2022 FINDINGS: No lines and tubes are seen. Cardiomegaly is noted. Left pleural calcification associated atelectasis are again seen. No evidence of pleural effusion or pneumothorax. IMPRESSION: No acute chest disease. ACT 112: Negative or not required by law. Electronically signed by: Kai Alonso M.D. 01/31/2023 7:42 AM
--- NOTE | 2023-01-31 08:24 | Pulmonary Consultation ---
Date of Consultation January 31, 2023 Assessment & Plan (1) COPD exacerbation: Patient's history is suggestive of COPD and it appears that he currently has an exacerbation. He is bronchospastic on exam. Continue IV Solu-Medrol for the next day and then transition to p.o. prednisone 40 mg daily for 5 to 7 days. We will add ICS inhaler in addition to LABA/LAMA. Patient should be discharged home on an ICS/LABA/LAMA inhaler. Will need formal PFTs as an outpatient. Chest x-ray without signs of acute pneumonia. I reviewed the CT chest from 11/03/2022 which reveals pleural-based calcifications and fibrosis. Mild emphysema was noted. Serum bicarbonate is 24. Doubtful of chronic CO2 retention. This may be masked, however, by his chronic renal failure. No role for antibiotics at this time as he has no fever, no leukocytosis and his Pro-Albert is negative. (2) SOB (shortness of breath): Largely multifactorial related to aortic stenosis and COPD. Consider either cardiac or pulmonary rehab as an outpatient. Needs to establish with outpatient pulmonology. (3) Aortic stenosis: Aortic stenosis quite severe. He notes that he was previously told by cardiology that he is not a surgical candidate. His last echo was 08/04/2022 which revealed moderate to severe aortic stenosis with mild concentric LVH. Recommend repeating echo to see if his aortic stenosis has progressed. (4) Chronic respiratory failure with hypoxia, on home O2 therapy: Multifactorial related to COPD and aortic stenosis. Consider palliative care consultation. (5) Goals of care, counseling/discussion: I discussed with the patient his complex medical issues and his reliance on chronic oxygen. He understands that he is chronically and severely ill. Right now he is listed as a full code. We discussed the possibility of consulting palliative care to discuss his quality of life and his overall goals of care. He is receptive to this idea. Will defer palliative care consult to the primary team. Plan Thank you for allowing me to participate in the care of the patient. We will continue monitor with you. History of Present Illness Reason for Consultation: "COPD exacerbation". Attending Physician: Thomas Delgado MD History of Present Illness 72-year-old male with a past medical history of GI bleed, GINNY, CKD stage IIIb, , Waldenstrom's, AAA repair, severe , COPD and CVA presenting to the hospital for shortness of breath. He was discharged 01/01/2023 due to an upper GI bleed. He was admitted overnight by the hospitalist service for COPD exacerbation. Patient chronically on 2 L of oxygen. Patient endorses increased cough and shortness of breath over the last few days. He denies fever. He notes a history of GINNY, but he is intolerant of CPAP. Sleep study from 2019 revealed mild GINNY to a severe degree and REM sleep. Nocturnal hypoxemia was present. He is currently on an oral Ellipta and as needed nebs as placed by the hospita list. He is also receiving methylprednisolone 40 mg 3 times daily. He notes that he has a [id number] smoking history and quit several years ago. No PFTs available for review. Chest x-ray this admission personally reviewed with evidence of atelectasis on the left. No acute infiltrate. No leukocytosis on labs noted. Allergies Allergy/AdvReac Type Severity Reaction Status Date / Time RUBENS Inhibitors AdvReac Intermediate DROPS Verified 01/30/23 23:10 BLOOD PRESSURE lisinopril AdvReac Intermediate DROPS Verified 01/30/23 23:10 BLOOD PRESSURE Home Medications Medication Instructions Recorded Confirmed Type Oxygen Home #1 ea 08/09/22 10/14/22 Rx albuterol sulfate 90 mcg/actuation 2 puff inhalation Q4H PRN 01/30/23 01/30/23 History aerosol inhaler Shortness Of Breath Or Wheezing allopurinol 300 mg tablet 150 mg PO DAILY 01/30/23 01/30/23 History allopurinol 300 mg tablet 450 mg PO DAILY 01/30/23 01/30/23 History amlodipine 10 mg tablet 10 mg PO DAILY 01/30/23 01/30/23 History atorvastatin 80 mg tablet 80 mg PO DAILY 01/30/23 01/30/23 History azelastine 137 mcg (0.1 %) nasal 1 spray intranasal BID 01/30/23 01/30/23 History spray aerosol cholecalciferol (vitamin D3) 50 50 mcg PO DAILY 01/30/23 01/30/23 History mcg (2,000 unit) tablet (Vitamin D3) docusate sodium 100 mg capsule 100 mg PO BID PRN Constipation 01/30/23 01/30/23 History ezetimibe 10 mg tablet 10 mg PO DAILY 01/30/23 01/30/23 History ferrous sulfate 325 mg (65 mg 325 mg PO DAILY 01/30/23 01/30/23 History iron) tablet furosemide 20 mg tablet 20 mg PO BID 01/30/23 01/30/23 History ipratropium 0.5 mg-albuterol 3 mg 3 ml inhalation Q6H PRN Shortness 01/30/23 01/30/23 History (2.5 mg base)/3 mL nebulization Of Breath Or Wheezing soln iron,carbonyl 65 mg-vitamin C 125 1 tab PO DAILY 01/30/23 01/30/23 History mg tablet,delayed release (Vitron-C) metoprolol tartrate 25 mg tablet 12.5 mg PO BID 01/30/23 01/31/23 History pantoprazole 40 mg tablet,delayed 40 mg PO BID 01/30/23 01/30/23 History release potassium chloride 10 mEq 10 meq PO UD 01/30/23 01/30/23 History tablet,extended release(part/cryst) (Klor-Con M) sucralfate 100 mg/mL oral 10 ml PO BID 01/30/23 01/30/23 History suspension umeclidinium 62.5 mcg-vilanterol 1 inh inhalation DAILY 01/30/23 01/30/23 History 25 mcg/actuation powdr for inhalation (Anoro Ellipta) apixaban 2.5 mg tablet (Eliquis) 2.5 mg PO BID 01/31/23 01/31/23 History Patient History Medical History (Updated 01/31/23 @ 09:53 by Teddy Dyer MD) Aneurysm CT chest w/o contrast 06/25/22 - 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 Ascending thoracic aorta at the level of the right pulmonary artery 4.2 cm unchanged. 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 Descending thoracic aorta at the level of the left atrium again up to 4.7 cm. Aortic stenosis Thoracic aortic atherosclerosis, densely calcified coronary arteries, severely calcified aortic valve, aneurysmal outpouching of the aortic arch. CKD (chronic kidney disease), stage III follows with [facility] nephrology Gastric ulcer Goals of care, counseling/discussion Hearing deficit BL NAILS History of GI bleed Hx of gout Hx SBO Hyperlipidemia Hypertension ANDREW (iron deficiency anemia) Obesity Paroxysmal ventricular tachycardia 19 beat run of ventricular tachycardia via Zio monitoring PFO (patent foramen ovale) per records. follows with Dr. 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 TO HAVE SLIGHT BALANCE ISSUES Surgical History History of esophagogastroduodenoscopy (EGD) History of lumbar surgery 1999 History of tonsillectomy History of tonsillectomy and adenoidectomy History of tooth extraction Hx of colonoscopy Hx of hernia repair lysis of adhesions, incisional hernia repair laparoscopically 01/28/2010 at [facility] - Dr Desouza S/P AAA repair 01/13/2009 - Dr Suazo ([facility] AT [facility]) Family History Other AAA (abdominal aortic aneurysm) Hypertension No family history of adverse response to anesthesia Social History Smoking Status: Former smoker Tobacco Type: Cigarettes Age Started Using Tobacco: 18; Cigarettes Per Day: Former cigarette. Quit 1998; Second Hand Exposure: No; Do You Dip or Chew Tobacco: No; Hx Alcohol Use: No Hx Substance Use: No Preferred Language: Khmer Communication Ability: Effective Oil Well Shooter Required: No Beliefs That Will Affect Care: None marital status: Current Living Situation: Spouse Current Living Situation Comment: daughter just moved in with him current occupational status: employed Feels Safe at Home: Yes Assistive Devices: Cane and Walker Review of Systems Review of Systems: 10 point ROS negative unless noted elsewhere Physical Exam Physical Exam: Constitutional: Patient appears to be of their stated age. Patient is in no apparent distress. Patient is well-developed. Eyes: Pupils are equal round and reactive to light. Conjunctivae are normal. Anicteric sclera. Ears nose, mouth and throat: Mallampati class 2. Normal posterior oropharynx. Uvula is midline. Neck: Trachea is midline. Visual inspection is normal. Respiratory: Diffusely rhonchorous. Cardiovascular: Regular rate and rhythm. 4 out of 6 systolic flow murmur noted. No edema. Gastrointestinal: Normal bowel sounds, soft, nontender and nondistended. No hepatosplenomegaly noted. Musculoskeletal: No cyanosis. Patient is able to move all extremities. Strength is 5 out of 5 in the upper and lower extremities. Skin: No rashes, warm dry and intact. Neurologic: No obvious focal neurological deficits seen. Psychiatric: Alert and oriented x3 with a euthymic affect. Results & Data Results & Data Vital Signs (Past 12 Hours) Vital Signs Pulse Pulse Resp BP Pulse Ox Pulse Ox O2 Del Method 01/31/23 07:02 93 H 01/31/23 06:52 94 H 18 99 Nasal Cannula 01/31/23 05:56 95 H 24 127/80 96 Nasal Cannula 01/31/23 03:11 87 22 97 Nebulizer 01/31/23 02:59 90 22 103/66 99 Nebulizer 01/31/23 00:00 89 24 125/90 98 Nebulizer 01/31/23 00:00 97 01/30/23 22:45 93 Nasal Cannula 01/30/23 22:00 85 20 139/73 93 Room Air O2 Del Method O2 Flow Rate O2 Flow Rate 01/31/23 07:02 01/31/23 06:52 3 01/31/23 05:56 2 01/31/23 03:11 7 01/31/23 02:59 01/31/23 00:00 6 01/31/23 00:00 Nebulizer 6 01/30/23 22:45 2 01/30/23 22:00 PG Care Time/CCT Total # of Minutes Spent Total Time Spent with Patient: Total time spent is greater than 50% in coordination of care (as documented) at patient's floor/unit and/or counseling patient: Coding Level of Care Code 88755 IN/OBS CONSULT LVL 4,60M Diagnoses COPD exacerbation J44.1 SOB (shortness of breath) R06.02 Aortic stenosis I35.0 Chronic respiratory failure with hypoxia, on home O2 therapy J96.11; Z99.81 Goals of care, counseling/discussion Z71.89
[2023-01-31] MEDS ORDERED: allopurinoL 300 MG TAB PO SCH (09:00)
[2023-01-31] MEDS ORDERED: AZELASTINE HCL 0.1% NASAL 200 SPRAYS/27,400 MCG BTL SCH (09:00)
[2023-01-31] MEDS ORDERED: METOPROLOL TARTRATE 25 MG TAB PO SCH (09:00)
[2023-01-31] MEDS ORDERED: UMECLIDINIUM/VILANTEROL 62.5/25MCG 7 PUFFS/INHALER INH SCH (09:00)
[2023-01-31] MEDS ORDERED: PANTOprazole 40 MG TAB PO SCH (09:00)
[2023-01-31] MEDS ORDERED: amLODIPine BESYLATE 5 MG TAB PO SCH (09:00)
--- NOTE | 2023-01-31 10:15 | Hospitalist Progress Note ---
Date of Service January 31, 2023 Assessment & Plan (1) Acute and chronic respiratory failure: (2) COPD with exacerbation: (3) Aortic stenosis: (4) Stage 3b chronic kidney disease (CKD): (5) Hypertension: (6) Monoclonal paraproteinemia: (7) Sleep apnea: (8) MGUS (monoclonal gammopathy of unknown significance): Plan On home oxygen 2 L continuously per his report. COVID/flu/rsv negative CXR is clear. Patient feels better today. Continue IV Solu-Medrol, nebs [id number] and as needed at home inhalers, Azithro x 3 days per GOLD guidelines. Pulm consulted and requested updated echo given known h/o severe ; added ICS inhaler to LABA/LAMA. Should be discharged home on an ICS/LABA/LAMA inhaler and will need formal PFTs as outpatient Obstructive sleep apnea-chronic, stable. COnt home CPAP nightly Chronic diastolic CHF-known Severe aortic stenosis Per recent cardiology note, lasix should be changed from 20mg BID to 40mg daily. Continues on 20mg BID for now. He doesn't appear volume overloaded Note trace edema in lower extremities bilaterally Updated echo requested. He is improved on current treatment; if worsens consider repeat CXR and cardiology consultation There are ongoing discussions of valve replacement with his outpatient cardiology office. History of GI bleed Recent multiple admissions Has no started octreotide as he needs a prior auth which is pending through GI Gastroenterology clinic. Cont PPI BID, Carafate, iron per plan below. No evidence of bleeding and H/H stable at this time. Cont to monitor. CKD stage IV-chronic, at baseline. Cont to avoid nephrotoxic substances such as NSAIDs or contrast and renally dose meds as appropriate. Mild elevated troponin-no evidence of ACS, Mostly demand ischemia and from renal disease History of CVAs-Currently on Eliquis History of gout-chronic, stable. Cont allopurinol per home regimen. Hypertension-chronic, stable. Stop amlodipine with edema. Cont other medications including lasix and metoprolol. Hyperlipidemia-chronic, stable. Cont atorvastatin per home regimen. MGUS-IgM lamda paraprotein in the blood, iron def anemia and CKD -followed by [facility] Hematology -myeloma lab panel and followup planned in 3 months -giving patient time to recover from recent hospital stays and GI bleeding issues. -placed him on IV Venofer weekly indefinitely -consider resuming Aranesp injections when iron studies have improved. DVT prophylaxis On Eliquis Full Code Disposition med/telemetry I spent a total of 60minutes coordinating, documenting, and providing care for this patient excluding time spent in the performance of separately billed services Kate Morrison DO [facility] Hospitalist Admission and Anticipated Discharge Date Admission Date: January 30, 2023 Subjective 72 yo M presents with one week of intemittent severe shortness of breath with difficulty recovering, admitted for COPD exacerbation and feels improved on current therpay +cough, improved afebrile denies pain interested in eating something family at bedside and assists with the history Physical Exam Physical Exam: CONSTITUTIONAL: WNWD, vitals as above, generally well-appearing, NAD EYES: normal conjunctivae, no scleral icterus ENT: external ear and nose normal, MMM NECK: trachea midline RESPIRATORY: wheezing at the right base, otherwise very rare rhonchi and no rales. Good airflow throughout. normal respiratory effort CARDIOVASCULAR: regular rate and rhythm, S1 and 2 heard without murmurs, gallops or rubs, no JVD, trace lower extremity peripheral edema CHEST: inspection of chest was normal GASTROINTESTINAL: soft, nontender, ND, no guarding MUSCULOSKELETAL: strength 5/5 throughout, head is normocephalic and atraumatic, SKIN: warm and dry NEUROLOGIC: CN 2-12 grossly intact, no sensory deficit, normal cognition, normal speech, no tremor. Hard of hearing. PSYCHIATRIC: alert cooperative and oriented to person, place and time. Results & Data Results & Data Vital Signs (Past 12 Hours) Vital Signs Pulse Pulse Resp BP Pulse Ox Pulse Ox O2 Del Method 01/31/23 07:02 93 H 01/31/23 06:52 94 H 18 99 Nasal Cannula 01/31/23 05:56 95 H 24 127/80 96 Nasal Cannula 01/31/23 03:11 87 22 97 Nebulizer 01/31/23 02:59 90 22 103/66 99 Nebulizer 01/31/23 00:00 89 24 125/90 98 Nebulizer 01/31/23 00:00 97 01/30/23 22:45 93 Nasal Cannula O2 Del Method O2 Flow Rate O2 Flow Rate 01/31/23 07:02 01/31/23 06:52 3 01/31/23 05:56 2 01/31/23 03:11 7 01/31/23 02:59 01/31/23 00:00 6 01/31/23 00:00 Nebulizer 6 01/30/23 22:45 2 Laboratory Results Short CBC 01/30/23 01/31/23 Range/Units 20:15 03:57 WBC 9.58 7.75 (4.8-10.8) K/ul Hgb 8.9 L 9.6 L (14.0-18.0) g/dl Hct 28.8 L 30.5 L (42.0-52.0) % Plt Count (130-400) K/uL BMP 01/30/23 01/31/23 20:15 03:57 Sodium 136 136 Potassium 3.9 4.5 Chloride 103 103 Carbon Dioxide 24 24 BUN 24 H 24 H Creatinine 2.46 H 2.45 H Glucose 100 H 174 H Calcium 9.1 9.5 Liver Function 01/30/23 Range/Units 20:15 Total Bilirubin 0.5 (0.2-1.0) mg/dl AST 25 (13-39) U/L ALT 17 (7-52) U/L Alkaline Phosphatase 110 H (34-104) U/L Albumin 3.8 (3.4-5.0) gm/dl Diagnostic Findings Chest X-Ray 01/30/23 20:09 XR chest 1V not portable CLINICAL HISTORY: Chest pain, nonspecific TECHNIQUE: Single frontal radiograph of the chest was obtained. Comparison: Comparison is made to chest radiograph 12/28/2022 FINDINGS: No lines and tubes are seen. Cardiomegaly is noted. Left pleural calcification associated atelectasis are again seen. No evidence of pleural effusion or pneumothorax. IMPRESSION: No acute chest disease. ACT 112: Negative or not required by law. Electronically signed by: Kai Alonso M.D. 01/31/2023 7:42 AM Medications Administered Current Inpatient Medications Acetaminophen (Acetaminophen 325 Mg Tab) 650 mg PO Q4H PRN PRN Reason: Pain or Fever Stop: 03/01/23 23:42 Albuterol (Albut/Ipratrop 3mg/0.5mg Neb 3 Ml Vial) 3 ml NEB QIDR [facility]; Protocol Stop: 03/02/23 06:59 Last Admin: 01/31/23 06:51 Dose: 3 ml Albuterol (Albut/Ipratrop 3mg/0.5mg Neb 3 Ml Vial) 3 ml NEB Q4R PRN; Protocol PRN Reason: Shortness Of Breath Or Wheezing Stop: 03/01/23 23:42 Last Admin: 01/31/23 03:00 Dose: 3 ml Albuterol (Albuterol Hfa 8 Gm Inhaler) 2 puffs INH Q4H PRN PRN Reason: Shortness Of Breath Or Wheezin Stop: 03/01/23 23:42 Allopurinol (Allopurinol 300 Mg Tab) 150 mg PO DAILY MOLINA Stop: 03/02/23 08:59 Amlodipine Besylate (Amlodipine Besylate 5 Mg Tab) 10 mg PO DAILY MOLINA Stop: 03/02/23 08:59 Apixaban (Apixaban 2.5 Mg Tab) 2.5 mg PO BID MOLINA Stop: 03/02/23 08:59 Atorvastatin Calcium (Atorvastatin 40 Mg Tab) 80 mg PO DAILY MOLINA Stop: 03/02/23 08:59 Azelastine HCl (Azelastine Hcl 0.1% Nasal 200 Sprays/27,400 Mcg Btl) 1 sprays NA BID MOLINA Stop: 03/02/23 08:59 Docusate Sodium (Docusate Sodium 100 Mg Cap) 100 mg PO BID PRN PRN Reason: Constipation Stop: 03/02/23 01:07 Ezetimibe (Ezetimibe 10 Mg Tab) 10 mg PO DAILY MOLINA Stop: 03/02/23 08:59 Ferrous Sulfate (Ferrous Sulfate 325 Mg Tab) 325 mg PO DAILY MOLINA Stop: 03/02/23 08:59 Fluticasone Furoate (Fluticasone Furoate 100mcg 14 Puffs/Inhaler) 1 puffs INH DAILY MOLINA Stop: 03/02/23 09:59 Furosemide (Furosemide 20 Mg Tab) 20 mg PO BID17 MOLINA Stop: 03/02/23 08:59 Methylprednisolone 40 mg/ (Syringe) 0.64 mls @ 1.5 mls/min IV Q8H MOLINA Stop: 03/02/23 05:59 Last Admin: 01/31/23 05:47 Dose: 1.5 mls/min Metoprolol Tartrate (Metoprolol Tartrate 25 Mg Tab) 12.5 mg PO BID MOLINA Stop: 03/02/23 08:59 Nitroglycerin (Nitroglycerin Sl 0.4 Mg/Tab Tab) 0.4 mg SL Q5M PRN PRN Reason: Chest Pain Stop: 03/01/23 23:42 Pantoprazole Sodium (Pantoprazole 40 Mg Tab) 40 mg PO DAILY MOLINA Stop: 03/02/23 08:59 Polyethylene Glycol (Polyethylene (Miralax) 17 Gm Pack) 17 gm PO DAILY PRN PRN Reason: Constipation Stop: 03/01/23 23:42 Potassium Chloride (Potassium Chloride 10 Meq Tabcr) 10 meq PO [id number]@[id number] MOLINA Stop: 03/02/23 08:59 Sucralfate (Sucralfate 1 Gm/10 Ml Udc) 1 gm PO BID MOLINA Stop: 03/02/23 08:59 Umeclidinium/Vilanterol (Umeclidinium/Vilanterol 62.5/25mcg 7 Puffs/Inhaler) 1 puffs INH DAILY MOLINA Stop: 03/03/23 08:59 Vitamin D (Cholecalciferol 1,000 Units 25 Mcg Tab) 2,000 units PO DAILY MOLINA Stop: 03/02/23 08:59 (3) Aortic stenosis Cardiac valve disease etiology: etiology unspecified Qualified Code(s): I35.0 - Nonrheumatic aortic (valve) stenosis
[2023-01-31] MEDS: APIXABAN 2.5 MG TAB PO SCH ×2 (10:25→20:05)
[2023-01-31] MEDS: UMECLIDINIUM/VILANTEROL 62.5/25MCG 7 PUFFS/INHALER INH SCH (10:25)
[2023-01-31] MEDS: METOPROLOL TARTRATE 25 MG TAB PO SCH ×2 (10:26→20:05)
[2023-01-31] MEDS: CHOLECALCIFEROL 1,000 UNITS 25 MCG TAB PO SCH (10:26)
[2023-01-31] MEDS: allopurinoL 300 MG TAB PO SCH (10:26)
[2023-01-31] MEDS: FUROSEMIDE 20 MG TAB PO SCH ×2 (10:27→18:16)
[2023-01-31] MEDS: EZETIMIBE 10 MG TAB PO SCH (10:27)
[2023-01-31] MEDS: ATORVASTATIN 40 MG TAB PO SCH (10:27)
[2023-01-31] MEDS: POTASSIUM CHLORIDE 10 MEQ TABCR PO SCH (10:27)
[2023-01-31] MEDS: FERROUS SULFATE 325 MG TAB PO SCH (10:27)
[2023-01-31] MEDS: SUCRALFATE 1 GM/10 ML UDC PO SCH ×2 (10:27→20:05)
[2023-01-31] MEDS: AZELASTINE HCL 0.1% NASAL 200 SPRAYS/27,400 MCG BTL SCH ×2 (10:28→20:06)
[2023-01-31] MEDS: FLUTICASONE FUROATE 100MCG 14 PUFFS/INHALER INH SCH (12:56)
[2023-01-31] MEDS: AZITHROMYCIN 250 MG TAB PO SCH (12:57)
[2023-01-31] MEDS: PANTOprazole 40 MG TAB PO SCH (20:05)
[2023-02-01] MEDS: methylPREDNISolone 40 MG in SYRINGE 0 ML IV SCH ×3 (05:42→15:31)
[2023-02-01] MEDS: ALBUT/IPRATROP 3MG/0.5MG NEB 3 ML VIAL NEB SCH ×4 (07:20→19:47)
--- NOTE | 2023-02-01 08:10 | Electrocardiogram Report ---
Test Reason : Blood Pressure : / mmHG Vent. Rate : 066 BPM Atrial Rate : 066 BPM P-R Int : 158 ms QRS Dur : 100 ms QT Int : 446 ms P-R-T Axes : 032 016 019 degrees QTc Int : 467 ms Normal sinus rhythm Minimal voltage criteria for LVH, may be normal variant Borderline ECG When compared with ECG of 28-DEC-2022 12:20, No significant change was found Confirmed by George Shah [id number]) on 02/01/2023 8:10:26 AM Referred By: NO PCP Confirmed By:George Shah
[2023-02-01] MEDS: AZITHROMYCIN 250 MG TAB PO SCH (08:16)
[2023-02-01] MEDS: EZETIMIBE 10 MG TAB PO SCH (08:16)
[2023-02-01] MEDS: AZELASTINE HCL 0.1% NASAL 200 SPRAYS/27,400 MCG BTL SCH ×2 (08:16→19:56)
[2023-02-01] MEDS: ATORVASTATIN 40 MG TAB PO SCH (08:16)
[2023-02-01] MEDS: CHOLECALCIFEROL 1,000 UNITS 25 MCG TAB PO SCH (08:16)
[2023-02-01] MEDS: allopurinoL 300 MG TAB PO SCH (08:16)
[2023-02-01] MEDS: APIXABAN 2.5 MG TAB PO SCH ×2 (08:16→19:58)
[2023-02-01] MEDS: FERROUS SULFATE 325 MG TAB PO SCH (08:16)
[2023-02-01] MEDS: SUCRALFATE 1 GM/10 ML UDC PO SCH ×2 (08:17→19:57)
[2023-02-01] MEDS: FUROSEMIDE 20 MG TAB PO SCH ×2 (08:17→16:58)
[2023-02-01] MEDS: FLUTICASONE FUROATE 100MCG 14 PUFFS/INHALER INH SCH (08:17)
[2023-02-01] MEDS: PANTOprazole 40 MG TAB PO SCH ×2 (08:17→19:59)
[2023-02-01] MEDS: METOPROLOL TARTRATE 25 MG TAB PO SCH ×2 (08:17→19:58)
--- NOTE | 2023-02-01 08:36 | Pulmonology Progress Note ---
Date of Service February 01, 2023 Assessment & Plan (1) COPD exacerbation: Plan: Patient's history is suggestive of COPD and it appears that he currently has an exacerbation. He is bronchospastic on exam. Transition to prednisone tomorrow at a dose of 40 mg daily for 5 days. Continue ICS/LABA/LAMA. Patient should be discharged home on an ICS/LABA/LAMA inhaler. Will need formal PFTs as an outpatient. Chest x-ray without signs of acute pneumonia. I reviewed the CT chest from 11/03/2022 which reveals pleural-based calcifications and fibrosis. Mild emphysema was noted. Serum bicarbonate is 24. Doubtful of chronic CO2 retention. This may be masked, however, by his chronic renal failure. No role for antibiotics at this time as he has no fever, no leukocytosis and his Pro-Albert is negative. (2) SOB (shortness of breath): Plan: Largely multifactorial related to aortic stenosis and COPD. Consider either cardiac or pulmonary rehab as an outpatient. Needs to establish with outpatient pulmonology. (3) Aortic stenosis: Plan: Aortic stenosis quite severe. He notes that he was previously told by cardiology that he is not a surgical candidate. His last echo was 08/04/2022 which revealed moderate to severe aortic stenosis with mild concentric LVH. Repeat echo results reviewed. LVEF 60 to 65%. Moderate concentric LVH. Severe aortic valve stenosis and trace aortic regurgitation. 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 Consider cardiology consult. Cardiac valve disease etiology: etiology unspecified Qualified Code(s): I35.0 - Nonrheumatic aortic (valve) stenosis (4) Chronic respiratory failure with hypoxia, on home O2 therapy: Plan: Multifactorial related to COPD and aortic stenosis. Consider palliative care consultation. Plan Thank you for allowing me to participate in the care of the patient. We will continue monitor with you. Admission and Anticipated Discharge Date Admission Date: January 30, 2023 Subjective Patient seen and examined today. He notes that he is able to ambulate with less dyspnea today. Cough and shortness of breath have improved. Denies any chest pain. He still does not feel quite at baseline with regards to his breathing. Review of Systems Review of Systems: All systems reviewed & are unremarkable except as noted in HPI & below Physical Exam Physical Exam: Constitutional: Patient appears to be of their stated age. Patient is in no apparent distress. Patient is well-developed. Eyes: Pupils are equal round and reactive to light. Conjunctivae are normal. Anicteric sclera. Ears nose, mouth and throat: Mallampati class 2. Normal posterior oropharynx. Uvula is midline. Neck: Trachea is midline. Visual inspection is normal. Respiratory: Less pronounced wheezing today. Prolonged phase of exhalation. Diminished bilaterally. Cardiovascular: Regular rate and rhythm. 4 out of 6 systolic flow murmur noted. No edema. Gastrointestinal: Normal bowel sounds, soft, nontender and nondistended. No hepatosplenomegaly noted. Musculoskeletal: No cyanosis. Patient is able to move all extremities. Strength is 5 out of 5 in the upper and lower extremities. Skin: No rashes, warm dry and intact. Neurologic: No obvious focal neurological deficits seen. Psychiatric: Alert and oriented x3 with a euthymic affect. Results & Data Results & Data Vital Signs (Past 12 Hours) Vital Signs Temp Pulse Pulse Resp BP Pulse Ox O2 Del Method 02/01/23 08:31 36.6 C 70 18 110/47 L 94 Nasal Cannula 02/01/23 07:20 72 14 94 Nasal Cannula 02/01/23 03:17 36.6 C 69 18 124/62 93 CPAP 02/01/23 02:29 70 16 94 01/31/23 23:05 86 16 92 01/31/23 23:06 36.8 C 82 18 105/52 L 91 Nasal Cannula 01/31/23 22:01 85 O2 Flow Rate 02/01/23 08:31 2 02/01/23 07:20 2 02/01/23 03:17 2 02/01/23 02:29 2 01/31/23 23:05 2 01/31/23 23:06 2 01/31/23 22:01 PG Care Time/CCT Total # of Minutes Spent Total Time Spent with Patient: Total time spent is greater than 50% in coordination of care (as documented) at patient's floor/unit and/or counseling patient: Coding Level of Care Code 05137 SUB INP/OBS CARE 2/35MIN Diagnoses COPD exacerbation J44.1 SOB (shortness of breath) R06.02 Aortic stenosis I35.0 Cardiac valve disease etiology: etiology unspecified Chronic respiratory failure with hypoxia, on home O2 therapy J96.11; Z99.81
--- NOTE | 2023-02-01 17:52 | Hospitalist Progress Note ---
Date of Service February 01, 2023 Assessment & Plan (1) Acute and chronic respiratory failure: (2) COPD with exacerbation: (3) Aortic stenosis: (4) Stage 3b chronic kidney disease (CKD): (5) Hypertension: (6) Monoclonal paraproteinemia: (7) Sleep apnea: (8) MGUS (monoclonal gammopathy of unknown significance): Plan #Acute on chronic hypoxic respiratory failure #Acute COPD Exacerbation On home oxygen 2 L continuously per his report. COVID/flu/rsv negative Transition to PO prednisone in am x 5 days, Azithro x 3 days per GOLD guidelines. Pulm consulted and requested updated echo given known h/o severe ; added ICS inhaler to LABA/LAMA. [employer] inhaler 187$--sent fluticasone to pharmacy for two inhaler regimen to enure ICS/LABA/LAMA #Obstructive sleep apnea chronic, stable. Cont home CPAP nightly #Chronic diastolic CHF #Severe aortic stenosis Per recent cardiology note, lasix should be changed from 20mg BID to 40mg daily. Continues on lasix 20mg BID for now. He doesn't appear volume overloaded Note trace edema in lower extremities bilaterally Updated echo requested. He is improved on current treatment; if worsens consider repeat CXR and cardiology consultation There are ongoing discussions of valve replacement with his outpatient cardiology office. #History of GI bleed Recent multiple admissions Has no started octreotide as he needs a prior auth which is pending through GI Gastroenterology clinic. Cont PPI BID, Carafate, iron per plan below. No evidence of bleeding and H/H stable at this time. Cont to monitor. #CKD stage IV chronic, at baseline. Cont to avoid nephrotoxic substances such as NSAIDs or contrast and renally dose meds as appropriate. #Mild elevated troponin no evidence of ACS, Mostly demand ischemia and from renal disease History of CVAs Currently on Eliquis #History of gout chronic, stable. Cont allopurinol per home regimen. #Hypertension chronic, stable. Stop amlodipine with edema. Cont other medications including lasix and metoprolol. #Hyperlipidemia chronic, stable. Cont atorvastatin per home regimen. #MGUS-IgM lamda paraprotein in the blood, iron def anemia and CKD -followed by [facility] Hematology -myeloma lab panel and followup planned in 3 months -giving patient time to recover from recent hospital stays and GI bleeding issues. -placed him on IV Venofer weekly indefinitely -consider resuming Aranesp injections when iron studies have improved. DVT prophylaxis On Eliquis Full Code Disposition med/telemetry I spent a total of 60minutes coordinating, documenting, and providing care for this patient excluding time spent in the performance of separately billed services Admission and Anticipated Discharge Date Admission Date: January 30, 2023 Subjective NAEO Reports feeling better overall, with some minor wheezing present Trelegy is 187.53$ as OP. Plan to seek options to ensure proper combination of inhalers for optimal regimen Review of Systems Review of Systems: All systems reviewed & are unremarkable except as noted in Subjective Physical Exam Constitutional: WD/WN, vitals as above Respiratory: scattered wheezing present Cardiovascular: RRR, no murmur, no edema Gastrointestinal (Abdomen): normal bowel sounds, soft, nontender, no hepatosplenomegaly Results & Data Results & Data Vital Signs (Past 12 Hours) Vital Signs Temp Pulse Pulse Resp BP Pulse Ox Pulse Ox 02/01/23 15:25 73 14 90 02/01/23 15:24 36.7 C 69 18 105/49 L 93 02/01/23 15:06 76 02/01/23 12:00 90 02/01/23 11:25 36.7 C 67 18 111/58 L 98 02/01/23 11:11 67 14 97 02/01/23 09:10 69 02/01/23 09:05 02/01/23 08:31 36.6 C 70 18 110/47 L 94 02/01/23 07:20 72 14 94 O2 Del Method O2 Del Method O2 Flow Rate O2 Flow Rate 02/01/23 15:25 Nasal Cannula 2 02/01/23 15:24 Room Air 02/01/23 15:06 02/01/23 12:00 Nasal Cannula 2 02/01/23 11:25 Nasal Cannula 2 02/01/23 11:11 Nasal Cannula 2 02/01/23 09:10 02/01/23 09:05 Nasal Cannula 2 02/01/23 08:31 Nasal Cannula 2 02/01/23 07:20 Nasal Cannula 2 Medications Administered Home Medications Medication Instructions Recorded Confirmed Last Taken albuterol sulfate 90 mcg/actuation 2 puff inhalation Q4H PRN 01/30/23 01/31/23 Unknown aerosol inhaler Shortness Of Breath Or Wheezing allopurinol 300 mg tablet 150 mg PO DAILY 01/30/23 01/31/23 Unknown amlodipine 10 mg tablet 10 mg PO DAILY 01/30/23 01/31/23 Unknown atorvastatin 80 mg tablet 80 mg PO DAILY 01/30/23 01/31/23 Unknown azelastine 137 mcg (0.1 %) nasal 1 spray intranasal BID 01/30/23 01/31/23 Unknown spray aerosol cholecalciferol (vitamin D3) 50 50 mcg PO DAILY 01/30/23 01/31/23 Unknown mcg (2,000 unit) tablet (Vitamin D3) docusate sodium 100 mg capsule 100 mg PO BID PRN Constipation 01/30/23 01/31/23 Unknown ezetimibe 10 mg tablet 10 mg PO DAILY 01/30/23 01/31/23 Unknown ferrous sulfate 325 mg (65 mg 325 mg PO DAILY 01/30/23 01/31/23 Unknown iron) tablet furosemide 20 mg tablet 20 mg PO BID 01/30/23 01/31/23 Unknown ipratropium 0.5 mg-albuterol 3 mg 3 ml inhalation Q6H PRN Shortness 01/30/23 01/31/23 Unknown (2.5 mg base)/3 mL nebulization Of Breath Or Wheezing soln iron,carbonyl 65 mg-vitamin C 125 1 tab PO DAILY 01/30/23 01/31/23 Unknown mg tablet,delayed release (Vitron-C) metoprolol tartrate 25 mg tablet 12.5 mg PO BID 01/30/23 01/31/23 Unknown pantoprazole 40 mg tablet,delayed 40 mg PO BID 01/30/23 01/31/23 Unknown release potassium chloride 10 mEq 10 meq PO UD 01/30/23 01/31/23 Unknown tablet,extended release(part/cryst) (Klor-Con M) sucralfate 100 mg/mL oral 10 ml PO BID 01/30/23 01/31/23 Unknown suspension umeclidinium 62.5 mcg-vilanterol 1 inh inhalation DAILY 01/30/23 01/31/23 Unknown 25 mcg/actuation powdr for inhalation (Anoro Ellipta) apixaban 2.5 mg tablet (Eliquis) 2.5 mg PO BID 01/31/23 01/31/23 Unknown octreotide,microspheres 10 mg 10 mg IM Q6M 01/31/23 01/31/23 Unknown intramuscular kit fluticasone furoate 100 1 inh inhalation DAILY #30 ea 02/01/23 Unknown mcg/actuation blister powder for inhalation Active Medications Generic Name Dose Route Start Last Admin Trade Name Freq PRN Reason Stop Dose Admin Acetaminophen 650 mg 01/30/23 23:43 01/31/23 20:04 Acetaminophen 325 Mg Tab PO 03/01/23 23:42 650 mg Q4H PRN Administration Pain or Fever Albuterol 3 ml 01/31/23 07:00 02/01/23 19:47 Albut/Ipratrop 3mg/0.5mg Neb 3 Ml Vial NEB 03/02/23 06:59 3 ml QIDR MOLINA Administration Protocol Albuterol 3 ml 01/30/23 23:43 01/31/23 03:00 Albut/Ipratrop 3mg/0.5mg Neb 3 Ml Vial NEB 03/01/23 23:42 3 ml Q4R PRN Administration Shortness Of Breath Or Wheezing Protocol Allopurinol 150 mg 01/31/23 09:00 02/01/23 08:16 Allopurinol 300 Mg Tab PO 03/02/23 08:59 150 mg DAILY MOLINA Administration Amlodipine Besylate 10 mg 01/31/23 09:00 01/31/23 10:27 Amlodipine Besylate 5 Mg Tab PO 03/02/23 08:59 10 mg DAILY MOLINA Administration Apixaban 2.5 mg 01/31/23 09:00 02/01/23 19:58 Apixaban 2.5 Mg Tab PO 03/02/23 08:59 2.5 mg BID MOLINA Administration Atorvastatin Calcium 80 mg 01/31/23 09:00 02/01/23 08:16 Atorvastatin 40 Mg Tab PO 03/02/23 08:59 80 mg DAILY MOLINA Administration Azelastine HCl 1 sprays 01/31/23 09:00 02/01/23 19:56 Azelastine Hcl 0.1% Nasal 200 Sprays/27,400 Mcg Btl NA 03/02/23 08:59 1 sprays BID MOLINA Administration Azithromycin 500 mg 01/31/23 12:45 02/01/23 08:16 Azithromycin 250 Mg Tab PO 02/02/23 09:01 500 mg QAM MOLINA Administration Ezetimibe 10 mg 01/31/23 09:00 02/01/23 08:16 Ezetimibe 10 Mg Tab PO 03/02/23 08:59 10 mg DAILY MOLINA Administration Ferrous Sulfate 325 mg 01/31/23 09:00 02/01/23 08:16 Ferrous Sulfate 325 Mg Tab PO 03/02/23 08:59 325 mg DAILY MOLINA Administration Fluticasone Furoate 1 puffs 01/31/23 10:00 02/01/23 08:17 Fluticasone Furoate 100mcg 14 Puffs/Inhaler INH 03/02/23 09:59 1 puffs DAILY MOLINA Administration Furosemide 20 mg 01/31/23 09:00 02/01/23 16:58 Furosemide 20 Mg Tab PO 03/02/23 08:59 20 mg BID17 MOLINA Administration Metoprolol Tartrate 12.5 mg 01/31/23 09:00 02/01/23 19:58 Metoprolol Tartrate 25 Mg Tab PO 03/02/23 08:59 12.5 mg BID MOLINA Administration Pantoprazole Sodium 40 mg 01/31/23 21:00 02/01/23 19:59 Pantoprazole 40 Mg Tab PO 03/02/23 20:59 40 mg BID MOLINA Administration Potassium Chloride 10 meq 01/31/23 09:00 01/31/23 10:27 Potassium Chloride 10 Meq Tabcr PO 03/02/23 08:59 10 meq MoWeFr@0900 MOLINA Administration Sucralfate 1 gm 01/31/23 09:00 02/01/23 19:57 Sucralfate 1 Gm/10 Ml Udc PO 03/02/23 08:59 1 gm BID MOLINA Administration Umeclidinium/Vilanterol 1 puffs 02/01/23 09:00 01/31/23 10:25 Umeclidinium/Vilanterol 62.5/25mcg 7 Puffs/Inhaler INH 03/03/23 08:59 1 puffs DAILY MOLINA Administration Vitamin D 2,000 units 01/31/23 09:00 02/01/23 08:16 Cholecalciferol 1,000 Units 25 Mcg Tab PO 03/02/23 08:59 2,000 units DAILY MOLINA Administration (3) Aortic stenosis Cardiac valve disease etiology: etiology unspecified Qualified Code(s): I35.0 - Nonrheumatic aortic (valve) stenosis
[2023-02-02] MEDS: ALBUT/IPRATROP 3MG/0.5MG NEB 3 ML VIAL NEB SCH ×2 (05:45→11:06)
[2023-02-02] MEDS: APIXABAN 2.5 MG TAB PO SCH (08:10)
[2023-02-02] MEDS: ATORVASTATIN 40 MG TAB PO SCH (08:10)
[2023-02-02] MEDS: AZELASTINE HCL 0.1% NASAL 200 SPRAYS/27,400 MCG BTL SCH (08:10)
[2023-02-02] MEDS: allopurinoL 300 MG TAB PO SCH (08:10)
[2023-02-02] MEDS: AZITHROMYCIN 250 MG TAB PO SCH (08:11)
[2023-02-02] MEDS: FUROSEMIDE 20 MG TAB PO SCH (08:11)
[2023-02-02] MEDS: FERROUS SULFATE 325 MG TAB PO SCH (08:11)
[2023-02-02] MEDS: FLUTICASONE FUROATE 100MCG 14 PUFFS/INHALER INH SCH (08:11)
[2023-02-02] MEDS: EZETIMIBE 10 MG TAB PO SCH (08:11)
[2023-02-02] MEDS: CHOLECALCIFEROL 1,000 UNITS 25 MCG TAB PO SCH (08:11)
[2023-02-02] MEDS: METOPROLOL TARTRATE 25 MG TAB PO SCH (08:12)
[2023-02-02] MEDS: SUCRALFATE 1 GM/10 ML UDC PO SCH (08:12)
[2023-02-02] MEDS: PANTOprazole 40 MG TAB PO SCH (08:12)
[2023-02-02] MEDS: POTASSIUM CHLORIDE 10 MEQ TABCR PO SCH (08:12)
[2023-02-02] MEDS: UMECLIDINIUM/VILANTEROL 62.5/25MCG 7 PUFFS/INHALER INH SCH (08:12)
[2023-02-02] MEDS ORDERED: predniSONE 20 MG TAB PO SCH (09:00)
--- NOTE | 2023-02-02 12:13 | Pulmonology Progress Note ---
Date of Service February 02, 2023 Assessment & Plan (1) COPD exacerbation: Plan: Patient's history is suggestive of COPD and it appears that he currently has an exacerbation. He is bronchospastic on exam. Transition to prednisone tomorrow at a dose of 40 mg daily for 5 days. Continue ICS/LABA/LAMA. Patient should be discharged home on an ICS/LABA/LAMA inhaler. Will need formal PFTs as an outpatient. Chest x-ray without signs of acute pneumonia. I reviewed the CT chest from 11/03/2022 which reveals pleural-based calcifications and fibrosis. Mild emphysema was noted. Serum bicarbonate is 24. Doubtful of chronic CO2 retention. This may be masked, however, by his chronic renal failure. No role for antibiotics at this time as he has no fever, no leukocytosis and his Pro-Albert is negative. Stable for discharge at this time. (2) SOB (shortness of breath): Plan: Largely multifactorial related to aortic stenosis and COPD. Consider either cardiac or pulmonary rehab as an outpatient. Needs to establish with outpatient pulmonology. (3) Aortic stenosis: Plan: Aortic stenosis quite severe. He notes that he was previously told by cardiology that he is not a surgical candidate. His last echo was 08/04/2022 which revealed moderate to severe aortic stenosis with mild concentric LVH. Repeat echo results reviewed. LVEF 60 to 65%. Moderate concentric LVH. Severe aortic valve stenosis and trace aortic regurgitation. It appears that there has been progressive aortic stenosis per the travel sales consultant. Consider cardiology consult. Cardiac valve disease etiology: etiology unspecified Qualified Code(s): I35.0 - Nonrheumatic aortic (valve) stenosis (4) Chronic respiratory failure with hypoxia, on home O2 therapy: Plan: Multifactorial related to COPD and aortic stenosis. Consider palliative care consultation. I think he would be a hospice candidate on an outpatient basis on the basis of his end-stage COPD, severe aortic stenosis and CKD stage IV. Plan No further recommendations at this time. Please call with questions. Thank you for allowing me to participate in the care of the patient. Admission and Anticipated Discharge Date Admission Date: January 30, 2023 Subjective Patient notes that he is close to his baseline from a respiratory standpoint. He has an occasional cough after nebulizer therapy. Denies any shortness of breath at rest. Mild shortness of breath with exertion. No fevers, chills or night sweats. Denies chest pain. Eager to go home. Review of Systems Review of Systems: All systems reviewed & are unremarkable except as noted in HPI & below Physical Exam Physical Exam: Constitutional: Patient appears to be of their stated age. Patient is in no apparent distress. Patient is well-developed. Eyes: Pupils are equal round and reactive to light. Conjunctivae are normal. Anicteric sclera. Ears nose, mouth and throat: Mallampati class 2. Normal posterior oropharynx. Uvula is midline. Neck: Trachea is midline. Visual inspection is normal. Respiratory: Prolonged phase of exhalation. Minimal expiratory wheeze. Cardiovascular: Regular rate and rhythm. 4 out of 6 systolic flow murmur noted. No edema. Gastrointestinal: Normal bowel sounds, soft, nontender and nondistended. No hepatosplenomegaly noted. Musculoskeletal: No cyanosis. Patient is able to move all extremities. Strength is 5 out of 5 in the upper and lower extremities. Skin: No rashes, warm dry and intact. Neurologic: No obvious focal neurological deficits seen. Psychiatric: Alert and oriented x3 with a euthymic affect. Results & Data Results & Data Vital Signs (Past 12 Hours) Vital Signs Temp Pulse Pulse Resp BP BP Pulse Ox 02/02/23 11:12 37 C 67 18 103/58 L 91 02/02/23 11:06 100 H 16 94 02/02/23 07:36 36.6 C 63 18 131/63 96 02/02/23 07:36 67 02/02/23 07:33 02/02/23 05:45 77 18 94 02/02/23 03:00 36.6 C 72 18 122/52 L 92 O2 Del Method O2 Flow Rate 02/02/23 11:12 Room Air 02/02/23 11:06 Nasal Cannula 3 02/02/23 07:36 Nasal Cannula 2 02/02/23 07:36 02/02/23 07:33 Nasal Cannula 2 02/02/23 05:45 Nasal Cannula 2 02/02/23 03:00 Nasal Cannula 2 PG Care Time/CCT Total # of Minutes Spent Total Time Spent with Patient: Total time spent is greater than 50% in coordination of care (as documented) at patient's floor/unit and/or counseling patient: Coding Level of Care Code 80432 SUB INP/OBS CARE 2/35MIN Diagnoses COPD exacerbation J44.1 SOB (shortness of breath) R06.02 Aortic stenosis I35.0 Cardiac valve disease etiology: etiology unspecified Chronic respiratory failure with hypoxia, on home O2 therapy J96.11; Z99.81
--- NOTE | 2023-02-02 12:55 | Discharge Summary ---
Date of Service February 02, 2023 Admission HPI Per Admitting Provider 72-year-old male with past med significant for hyperlipidemia, hyperparathyroidism, idiopathic chronic gout, COPD, obstructive sleep apnea on CPAP, hypertension, left renal artery stenosis, abdominal aortic aneurysm, severe arctic stenosis, chronic diastolic CHF, shaggy aorta syndrome, chronic kidney stage IV, iron deficiency anemia due to chronic blood loss, [place]'s macroglobulinemia, history of AAA repair, history of CVA, history of SVT, history of biliary stent insertion, recently had multiple admission for GI bleed currently on monthly IM octreotide injection as per GI. Plavix is discontinued currently is on Eliquis 2.5 units twice daily and also getting every other week IV iron infusions and plan for Aranesp injections lives with his and daughter was brought in because of worsening cough and shortness of breath. Whole family is sick with some viral infection. Denies any fevers. Appetite is down. No chest pain. No nausea. No abdominal pain. No diarrhea. Normal micturition. No headaches. Somewhat hard to hear. Hemodynamics stable currently. Past medical history as mentioned above Past surgical history. Abdominal aortic aneurysm repair, colonoscopy with biopsy, EGD, EGD with cyst drainage, EGD with endoscopic ultrasound, ERCP, incisional hernia repair and lysis of adhesions laparoscopically. Lumbar disc excision, tonsillectomy, tear duct system surgery. Social history. . Quit smoking in 2008. Smoked 1 pack a day for 35 years. Alcohol 3 standard drinks per week. No drug use. Family history. Father had AAA. Mother had dialysis. Brother hypertension. Heart disease. Sister has heart disease. Admission Exam Per Admitting Provider General- Not in distress Head- atraumatic Eyes- PERRL. ENT- oropharynx clear Neck- supple, no JVD. Lungs- clear to auscultation mild b/l wheezing no crackles Heart- regular rhythm; no murmur, no gallop. Abdomen- normal bowel sounds, soft, nontender, no distension. Extremities- no pretibial edema, no erythema seen. Neuro- alert, oriented x 3; PERRL, no facial palsy; no dysarthria; Skin- warm & dry Principal Diagnosis COPD Exacerbation Discharge Exam GENERAL: Alert and oriented x3. NAD, on 2L NC O2. HEENT: No pallor, no icterus. Pupils equal, round and reactive to light. Oral mucosa moist. NECK: No JVD, no neck masses. HEART: S1 and S2 heard. Regular rate and rhythm. No murmur, no gallop. RESPIRATORY SYSTEM: Normal AP diameter. No accessory muscle use. No wheezing, no crackles. ABDOMEN: Soft, bowel sounds present, nontender, no distention. CENTRAL NERVOUS SYSTEM: No facial droop. Speech is clear. Obeys simple commands. Moves extremities. EXTREMITIES: No edema, no erythema seen. Discharge Data Allergies Allergy/AdvReac Type Severity Reaction Status Date / Time RUBENS Inhibitors AdvReac Intermediate DROPS Verified 01/30/23 23:10 BLOOD PRESSURE lisinopril AdvReac Intermediate DROPS Verified 01/30/23 23:10 BLOOD PRESSURE Consultations 01/30/23 21:13 ED Decision to Admit Stat 01/31/23 07:02 Consult Pulmonology Routine Hospital Course (1) Acute and chronic respiratory failure: (2) COPD with exacerbation: (3) Aortic stenosis: (4) Stage 3b chronic kidney disease (CKD): (5) Hypertension: (6) Monoclonal paraproteinemia: (7) Sleep apnea: (8) MGUS (monoclonal gammopathy of unknown significance): Plan Per prior attending with addendum: #Acute on chronic hypoxic respiratory failure #Acute COPD Exacerbation On home oxygen 2 L continuously per his report. COVID/flu/rsv negative Transition to PO prednisone in am x 5 days, Azithro x 3 days per GOLD guidelines. Pulm consulted and requested updated echo given known h/o severe ; added ICS inhaler to LABA/LAMA. [employer] inhaler 187$--sent fluticasone to pharmacy for two inhaler regimen to enure ICS/LABA/LAMA #Obstructive sleep apnea chronic, stable. Cont home CPAP nightly #Chronic diastolic CHF #Severe aortic stenosis Per recent cardiology note, lasix should be changed from 20mg BID to 40mg daily. Continues on lasix 20mg BID for now. He doesn't appear volume overloaded Note trace edema in lower extremities bilaterally Updated echo requested. He is improved on current treatment; if worsens consider repeat CXR and cardiology consultation There are ongoing discussions of valve replacement with his outpatient cardiology office. #History of GI bleed Recent multiple admissions Has no started octreotide as he needs a prior auth which is pending through GI Gastroenterology clinic. Cont PPI BID, Carafate, iron per plan below. No evidence of bleeding and H/H stable at this time. Cont to monitor. #CKD stage IV chronic, at baseline. Cont to avoid nephrotoxic substances such as NSAIDs or contrast and renally dose meds as appropriate. #Mild elevated troponin no evidence of ACS, Mostly demand ischemia and from renal disease History of CVAs Currently on Eliquis #History of gout chronic, stable. Cont allopurinol per home regimen. #Hypertension chronic, stable. Stop amlodipine with edema. Cont other medications including lasix and metoprolol. #Hyperlipidemia chronic, stable. Cont atorvastatin per home regimen. #MGUS-IgM lamda paraprotein in the blood, iron def anemia and CKD -followed by [facility]ology -myeloma lab panel and followup planned in 3 months -giving patient time to recover from recent hospital stays and GI bleeding issues. -placed him on IV Venofer weekly indefinitely -consider resuming Aranesp injections when iron studies have improved. DVT prophylaxis On Eliquis Full Code Disposition med/telemetry Addendum: Patient was seen and examined at bedside, no wheezing/clear to auscultation on exam, patient reports feeling better and back to baseline, would like to go home. Patient hemodynamically stable. Patient states that he would like to use Trelegy and he can afford if needed. Trelegy has been sent to his pharmacy per his request. He is being discharged with following instruction at the point of discharge: Follow-up with your primary care physician within a week time and likely you will need labs CBC/CMP/magnesium/phosphorus. You were admitted for acute COPD exacerbation. You were treated with IV steroids and transitioned to a savi of steroids by mouth. You 4 days left of prednisone. Please take 40mg prednisone by mouth every morning for 4 days Additionally, you will continue all home inhalers as prescribed. Trelegy has been added. Your previously prescribed anoro ellipta has been discontinued because now you are on Trelegy. Given persistent swelling in your legs, we discontinued your amlodipine, which can often contribute to swelling of the ankles. Please follow up closely with the following: -PCP -Inspector Structural Bonding -Last Model Department Supervisor, you will need outpatient PFT set up. Please make sure that you are able to get your medications today by calling your pharmacy before you leave the hospital so that your treatment continuity is not broken. Home Health Attestation I certify that this patient is under my care and that I, or a physicians commercial assistant working with me, had a face to-face encounter that meets the [facility] [id number] encounter requirements with this patient. The encounter with the patient was in whole, or in part, for the following medical condition, which is the primary reason for home health care (list medical condition): I certify that, based on my findings, the following services are medically necessary home health services: My clinical findings support the need for the above services because: Further, I certify that my clinical findings support that this patient is homebound (i.e. absences from home require considerable and taxing effort and are for medical reasons or pentec[employer] services or infrequently or of short duration when for other reasons) because: Certification for Home Health Services: Based on the above findings, I certify that this patient is confined to the home and needs intermittent retirement care, physical therapy and/or speech therapy or continues to need occupational therapy. The patient is under my care, and I have initiated the establishment of the plan of care. This patient will be followed by a physician who will periodically review the plan of care. Total Time Total Time Spent Total Time Spent (In Minutes): 45 Discharge Plan Discharge Items Patient Disposition: Home - Self-Care Reason For Visit: SOB, COPD EX Discharge Diagnosis: COPD Exacerbation Condition on Discharge: Fair Activity: As commented below Activity Comment: as tolerated Lifting: Gradually increase as tolerated Bathing: No limitations Exercise/Sports: Gradually increase as tolerated Weightbearing: Full weightbearing Weightbearing Comment: with assistive device Non-emergency contact: Primary Care Provider, Inspector Structural Bonding and Last Model Department Supervisor Call non-emergency contact if: you have any medication questions and your symptoms worsen Follow-up/Referrals: Jairo Kingston MD [Primary Care Provider] - (Date & Time 02/09/2023 11:20 AM Provider Jairo Kingston MD [facility] ) Diet: Heart Healthy Fluids: 2000ml (8 cups) Addtl Attending Provider Instructions: Follow-up with your primary care physician within a week time and likely you will need labs CBC/CMP/magnesium/phosphorus. You were admitted for acute COPD exacerbation. You were treated with IV steroids and transitioned to a savi of steroids by mouth. You 4 days left of prednisone. Please take 40mg prednisone by mouth every morning for 4 days Additionally, you will continue all home inhalers as prescribed. Trelegy has been added. Your previously prescribed anoro ellipta has been discontinued because now you are on Trelegy. Given persistent swelling in your legs, we discontinued your amlodipine, which can often contribute to swelling of the ankles. Please follow up closely with the following: -PCP -Inspector Structural Bonding -Last Model Department Supervisor, you will need outpatient PFT set up. Please make sure that you are able to get your medications today by calling your pharmacy before you leave the hospital so that your treatment continuity is not broken. Pending Studies at Discharge: No Stand-Alone Forms: My Front Row, Smoking Cessation Medications and DC Order Prescriptions: New prednisone 20 mg Tablet 40 mg PO DAILY 4 Days Qty: 8 0RF Trelegy Ellipta 100-62.5-25 mcg blister with device 1 inh inhalation DAILY Qty: 28 0RF Continued atorvastatin 80 mg tablet 80 mg PO DAILY ipratropium-albuterol 0.5 mg-3 mg(2.5 mg base)/3 mL solution for nebulization 3 ml INHALATION Q6H PRN (Reason: Shortness Of Breath Or Wheezing) sucralfate 100 mg/mL suspension 10 ml PO BID ferrous sulfate 325 mg (65 mg iron) tablet 325 mg PO DAILY allopurinol 300 mg tablet 150 mg PO DAILY furosemide 20 mg tablet 20 mg PO BID azelastine 137 mcg (0.1 %) aerosol,spray 1 spray INTRANASAL BID albuterol sulfate 90 mcg/actuation HFA aerosol inhaler 2 puff INHALATION Q4H PRN (Reason: Shortness Of Breath Or Wheezing) ezetimibe 10 mg tablet 10 mg PO DAILY potassium chloride [Klor-Con M10] 10 mEq tablet,ER particles/crystals 10 meq PO UD Rx Instructions: on mon, tue and tuesday metoprolol tartrate 25 mg tablet 12.5 mg PO BID pantoprazole 40 mg tablet,delayed release (DR/EC) 40 mg PO BID docusate sodium 100 mg Capsule 100 mg PO BID PRN (Reason: Constipation) cholecalciferol (vitamin D3) [Vitamin D3] 50 mcg (2,000 unit) Tablet 50 mcg PO DAILY Vitron-C 65 mg iron- 125 mg Tablet,Delayed Release (Dr/Ec) 1 tab PO DAILY Eliquis 2.5 mg Tablet 2.5 mg PO BID Discontinued amlodipine 10 mg tablet 10 mg PO DAILY Anoro Ellipta 62.5-25 mcg/actuation blister with device 1 inh INHALATION DAILY octreotide,microspheres 10 mg Kit 10 mg IM Q6M Discharge Orders: Discharge Order (Routine); Ordered 02/02/23 Ordered By: Apolonia Hatch Admission Data Admit Date/Time: 01/30/23 22:22 Attending Provider: Apolonia Hatch Admit Provider: Corby Wright Primary Care Provider: Jairo Kingston Other Providers: Corby Wright ; Emir Batres
== END 2023-02-02 14:41 | disposition home or self-care (01) | DRG 191 ==
LOC: ED 19:59 → SUATTDRO 22:22 → EDINP 22:22 → 2N 23:44

== ENCOUNTER 2023-04-21 19:07 | Inpatient (IN) ==
[2023-04-21 20:47] LABS: Hematocrit (blood only) 33.2 % (42.0-52.0); Hemoglobin 10.4 g/dl (14.0-18.0); Mean Corpuscular Hemoglobin 30.1 pg (25.0-34.0); Mean Corpuscular Hgb Conc 31.3 g/dL (32.0-36.0); Mean Platelet Volume 10.5 fL (9.4-12.4); Platelet Count 265 K/uL (130-400); RDW Coefficient of Variation 17.1 % (11.5-14.5); RDW Standard Deviation 59.7 fL (36.4-46.3); Red Blood Count 3.46 M/uL (4.70-6.10); White Blood Count 11.34 K/ul (4.8-10.8)
[2023-04-21 21:27] LABS: Alanine Aminotransferase 32 U/L (7-52); Albumin Level 3.8 gm/dl (3.4-5.0); Alkaline Phosphatase 190 U/L (34-104); Anion Gap 11 (3-11); Aspartate Aminotransferase 37 U/L (13-39); BUN Creatinine Ratio 17.1 (10-20); Bilirubin,Total 0.4 mg/dl (0.2-1.0); Blood Urea Nitrogen 44 mg/dl (6-23); Calcium 9.2 mg/dl (8.6-10.3); Carbon Dioxide 22 mmol/L (21-32); Chloride 102 mmol/L (98-107); Est GFR (African American) 27.3 ml/min; Est GFR (Non-African American) 23.6 ml/min; Glucose 175 mg/dl (70-99(Fasting)); Potassium 4.5 mmol/L (3.5-5.1); Sodium 135 mmol/L (136-145); Total Protein 7.8 gm/dl (6.0-8.3)
[2023-04-21 21:32] LABS: Troponin I High Sensitivity 13.4 pg/ml (0-20)
[2023-04-21 21:33] LABS: INR 1.1 (0.9-1.1); Partial Thromboplastin Time 29 Seconds (21-31); Prothrombin Time 11.7 Seconds (9.0-12.0)
--- NOTE | 2023-04-21 21:40 | Emergency Department Note ---
History of Present Illness General Chief complaint: GI Bleed Stated complaint: [facility] REF, RECTAL BLEED, SOB Time Seen by Provider: 04/21/23 21:22 Source: patient, family (Daughter who is at the bedside), RN notes reviewed and old records reviewed (He did have an EGD- 02/23/23) Mode of arrival: ambulatory Limitations: no limitations History of Present Illness This patient is a 72-year-old male who has multiple medical problems including upper GI bleed from angiectasia. He comes in after he has been having dark stool. He said the nurse sent him. His hemoglobin checked yesterday was 10.3. He has been having ongoing dark stool. He schedule of an iron transfusion tomorrow. He is also had a cough for about a month and the last 2 weeks occasionally is blood-tinged. He feels a little more short of breath than baseline he does wear chronic oxygen no fever chills .no chest pain. no palpitations. no fever or chills. no fall or trauma. His stool has been dark. Denies abdominal pain. Home Medications Medication Instructions Recorded Confirmed Type albuterol sulfate 90 mcg/actuation 2 puff inhalation Q4H PRN 01/30/23 04/21/23 History aerosol inhaler Shortness Of Breath Or Wheezing allopurinol 300 mg tablet 150 mg PO DAILY 01/30/23 04/21/23 History atorvastatin 80 mg tablet 80 mg PO QAM 01/30/23 04/21/23 History azelastine 137 mcg (0.1 %) nasal 1 spray intranasal BID 01/30/23 04/21/23 History spray aerosol cholecalciferol (vitamin D3) 50 50 mcg PO DAILY 01/30/23 04/21/23 History mcg (2,000 unit) tablet (Vitamin D3) docusate sodium 100 mg capsule 100 mg PO BID PRN Constipation 01/30/23 04/21/23 History ezetimibe 10 mg tablet 10 mg PO QAM 01/30/23 04/21/23 History ferrous sulfate 325 mg (65 mg 325 mg PO QAM 01/30/23 04/21/23 History iron) tablet furosemide 20 mg tablet 20 mg PO BID 01/30/23 04/21/23 History ipratropium 0.5 mg-albuterol 3 mg 3 ml inhalation Q6H PRN Shortness 01/30/23 04/21/23 History (2.5 mg base)/3 mL nebulization Of Breath Or Wheezing soln metoprolol tartrate 25 mg tablet 25 mg PO BID 01/30/23 04/21/23 History pantoprazole 40 mg tablet,delayed 40 mg PO AMHS 01/30/23 04/21/23 History release potassium chloride 10 mEq 10 meq PO 3XWK 01/30/23 04/21/23 History tablet,extended release(part/cryst) (Klor-Con M) apixaban 2.5 mg tablet (Eliquis) 2.5 mg PO AMHS 01/31/23 04/21/23 History fluticasone fur. 100 mcg-umeclid 1 inh inhalation QAM 02/15/23 04/21/23 History 62.5 mcg-vilant 25 mcg inhalat.powder (Trelegy Ellipta) amoxicillin 500 mg-potassium 1 tab PO AMHS 04/21/23 04/21/23 History clavulanate 125 mg tablet ascorbic acid (vitamin C) 250 mg 125 mg PO QDL 04/21/23 04/21/23 History tablet fluticasone propionate 50 2 spray intranasal DAILY 04/21/23 04/21/23 History mcg/actuation nasal spray,suspension prednisone 20 mg tablet 20 mg PO DAILY 04/21/23 04/21/23 History Allergies Allergy/AdvReac Type Severity Reaction Status Date / Time RUBENS Inhibitors AdvReac Unknown DROPS Verified 04/21/23 16:12 BLOOD PRESSURE lisinopril AdvReac Unknown DROPS Verified 04/21/23 16:12 BLOOD PRESSURE Past Med/Surg History Medical History Gastroparesis pt is not sure about this dx. History of colon polyps x1 a few yrs ago/follow up in 5 yrs. 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 "never heard of it" Hyperparathyroidism denies COPD (chronic obstructive pulmonary disease) exacerbation Dec 2022 - Hospitalized [facility] Dec 24-2022. Med change and effective since. Denies current issues. O2 2 L HS & PRN throughout day. 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 Ascending thoracic aorta at the level of the right pulmonary artery 4.2 cm unchanged. 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 Descending thoracic aorta at the level of the left atrium again up to 4.[address] scan Dec 2022 - pt told everything was stable. 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 follows with Dr. Jefferson Gastric ulcer Hearing deficit BL NAILS Hx SBO History of GI bleed Stroke X 2 (LAST EVENT 05/2020) CONT. TO HAVE SLIGHT BALANCE ISSUES Sleep apnea CPAP Hx of gout PSVT (paroxysmal supraventricular tachycardia) Aortic stenosis Thoracic aortic atherosclerosis, densely calcified coronary arteries, severely calcified aortic valve, aneurysmal outpouching of the aortic arch. CKD (chronic kidney disease), stage III follows with [facility] nephrology Hyperlipidemia Hypertension Surgical History History of esophagogastroduodenoscopy (EGD) most recent a few months ago for a bleed, this is a follow up procedure. History of tooth extraction History of tonsillectomy and adenoidectomy pt not sure about adenoids. History of lumbar surgery 1999 S/P AAA repair 01/13/2009 - Dr Suazo ([facility]) Hx of colonoscopy Hx of hernia repair lysis of adhesions, incisional hernia repair laparoscopically 01/28/2010 at [facility] - Dr Desouza Family History Other AAA (abdominal aortic aneurysm) Hypertension No family history of adverse response to anesthesia Social History Smoking Status: Former smoker Tobacco Type: Cigarettes Age Started Using Tobacco: 18; Cigarettes Per Day: Former cigarette. Quit 1998; Second Hand Exposure: No; Do You Dip or Chew Tobacco: No; Hx Alcohol Use: No Hx Substance Use: No Preferred Language: Bahamian Communication Ability: Effective Communication Ability Comment: pt communication effective/daughter Mitzi helps answer some questions. Environmental Attorney Required: No Beliefs That Will Affect Care: None marital status: Current Living Situation: Spouse and Family Current Living Situation Comment: and daughter current occupational status: employed Feels Safe at Home: Yes Assistive Devices: CPAP, Glasses, Hearing Aid - Bilateral, Oxygen - at Night and Other Review of Systems A total of 10 systems reviewed and were otherwise negative Physical Exam Vital Signs Vital Signs - 24 hr 04/21/23 19:25 04/21/23 23:23 04/21/23 23:30 Temperature 36.8 C Temperature Source Temporal Artery Scan Pulse Rate 88 72 73 Respiratory Rate 18 22 Respiratory Effort / Characteristics Non-Labored Spontaneous Respiratory Depth Normal Respiratory Pattern Regular Blood Pressure 146/76 H 155/118 H Blood Pressure Mean 99 130 Blood Pressure Position Sitting Pulse Oximetry 96 100 Oxygen Delivery Method Nasal Cannula Nasal Cannula Oxygen Flow Rate 3 3 Sepsis Recent Fever Within 48 Hours No Sepsis New/Unexplained Change in Mental Status N/A Sepsis Action Taken by Nursing No Action Required 04/22/23 00:00 04/22/23 00:30 04/22/23 00:35 Temperature Temperature Source Pulse Rate 68 71 Respiratory Rate 18 24 Respiratory Effort / Characteristics Respiratory Depth Respiratory Pattern Blood Pressure 150/82 H 150/84 H Blood Pressure Mean 104 106 Blood Pressure Position Pulse Oximetry 97 100 98 Oxygen Delivery Method Nasal Cannula Nasal Cannula Nasal Cannula Oxygen Flow Rate 3 3 3 Sepsis Recent Fever Within 48 Hours Sepsis New/Unexplained Change in Mental Status Sepsis Action Taken by Nursing General: Well developed well nourished chronically ill-appearing older male who is not acutely ill-appearing but in no acute distress, breathing comfortably on room air. Normal speech. Wearing nasal cannula HEENT: Normal cephalic atraumatic. Pupils are equal round and reactive to light. Extraocular movements are intact. Oropharynx is pink with moist mucous membranes. No swelling of the mouth lips or tongue. Neck: Supple with a midline trachea. No meningeal signs or stiffness, no JVD or bruits. No Stridor. Chest: Clear to auscultation bilaterally. No wheezes or rhonchi. No increased work of breathing. Heart: Regular rate and rhythm without murmurs or gallops. Abdomen: Soft nontender, nondistended without rebound guarding or rigidity. Rectal: Black stool that was guaiac positive. Extremities: No cyanosis clubbing or edema. No calf tenderness or assymetry Spine/Back. Non tender to palpation. No CVA tenderness Skin: Good turgor without rashes. Neurologic exam: Cranial nerves two through 12 are intact. Motor and sensation are intact and symmetrical throughout. Course Administered Medications Pantoprazole Sodium 40 mg/ (Dextrose) 100 mls @ 20 mls/hr IV Q5H MOLINA Stop: 05/21/23 23:44 Last Infusion: 04/22/23 00:49 Dose: Infused Documented By: Admin: 04/22/23 00:00 Dose: 8 mg/hr, 20 mls/hr Documented By: ANDREA Discontinued Medications Pantoprazole Sodium 80 mg/ (Dextrose) 120 mls @ 480 mls/hr IV NOW ONE Stop: 04/21/23 23:45 Last Admin: 04/22/23 00:00 Dose: 480 mls/hr Documented By: ANDREA Pantoprazole Sodium (Pantoprazole Bolus/Drip) 1 each IV NOW STA Stop: 04/21/23 23:32 Last Admin: 04/22/23 00:34 Dose: Not Given Documented By: ANDREA Medical Decision Making Differential Diagnosis GI bleed, infection, pneumonia, anemia, electrolyte or metabolic abnormality Medical Records Attestation: I reviewed the patient's medical records. Home Medications Current Medication List: was personally reviewed by me Laboratory Data Attestation: I reviewed the patient's lab results. 04/21/23 20:26 04/21/23 20:26 Lab Results 04/21/23 04/21/23 04/21/23 Range/Units 20:26 20:29 23:15 WBC 11.34 H (4.8-10.8) K/ul RBC 3.46 L (4.70-6.10) M/uL Hgb 10.4 L (14.0-18.0) g/dl Hct 33.2 L (42.0-52.0) % MCV 96.0 (80.0-100.0) fL MCH 30.1 (25.0-34.0) pg MCHC 31.3 L (32.0-36.0) g/dL RDW Std Deviation 59.7 H (36.4-46.3) fL RDW Coeff of Chaka 17.1 H (11.5-14.5) % Plt Count 265 (130-400) K/uL MPV 10.5 (9.4-12.4) fL PT 11.7 (9.0-12.0) Seconds INR 1.1 (0.9-1.1) APTT 29 (21-31) Seconds PTT Ratio 1.0 Sodium 135 L (136-145) mmol/L Potassium 4.5 (3.5-5.1) mmol/L Chloride 102 (98-107) mmol/L Carbon Dioxide 22 (21-32) mmol/L Anion Gap 11 (3-11) BUN 44 H (6-23) mg/dl Creatinine 2.57 H (0.6-1.4) mg/dl Est Cr Clr Drug Dosing Not Reportable Est GFR ( Amer) 27.3 ml/min Est GFR (Non-Af Amer) 23.6 ml/min BUN/Creatinine Ratio 17.1 (10-20) Glucose 175 H (70-99(Fasting)) mg/dl Calcium 9.2 (8.6-10.3) mg/dl Total Bilirubin 0.4 (0.2-1.0) mg/dl AST 37 (13-39) U/L ALT 32 (7-52) U/L Alkaline Phosphatase 190 H (34-104) U/L Troponin I High Sens 13.4 (0-20) pg/ml Total Protein 7.8 (6.0-8.3) gm/dl Albumin 3.8 (3.4-5.0) gm/dl Globulin 4.0 (2.5-4.0) gm/dl Albumin/Globulin Ratio 1.0 (0.9-2) SARS-CoV-2 (PCR) NEGATIVE (Negative) Influenza Type A (PCR) Negative (Neg) Influenza Type B (PCR) Negative (Neg) RSV (RT-PCR) Negative (Neg) Crossmatch See Detail Imaging Data Attestation: I personally reviewed and interpreted this imaging study as follows: My Impression: Chest x-rayupon my independent interpretation to there is chronic changes left chest with a pleural calcification when I compared to old it is unchanged. No acute acute CHF. He has cardiomegaly. ECG Data Attestation: I personally reviewed and interpreted this ECG as follows: Indication: + weakness Rate (beats per minute): 77 Rhythm: + normal sinus ECG Intervals/blocks: + Normal QRS, + Normal QT and + Normal VT ECG [place]: + Normal ECG ST segments: + Normal ST segments ECG Findings: no PACs or no PVCs Comparison ECG Date: from (02/23/23) Change: no significant change MDM Narrative This patient is a 72-year-old male who has multiple medical problems including upper GI bleed, he has been having dark stool. His hemoglobin checked yesterday was 10.2 is actually 10.3 today his vital signs are stable. He tells me is really not had any bowel movements today. He said chronic ongoing cough that is blood-tinged. He is on Xarelto which his doctor told him to hold. He is supposed to have an iron transfusion tomorrow. IV access was established and blood work was obtained. EKG and chest x-ray was obtained. EKG shows no ischemic changes or ectopy. His chest x-ray shows some chronic changes but no definite pneumonia. I did do a rectal exam. it was black, he is on iron but also was guaiac positive. He feels he is bleeding and has had some increased shortness of breath lately. I do think he should be admitted given his chronic issues he is certainly at high risk. He has been on a blood thinner but again started holding it today. I did type and cross him for 4 units in the event that he needs a transfusion. I also ordered an IV Protonix bolus and drip. I have consulted Dr. Wright, the [facility] hospitalist, to see the patient in the ER for these measures. Continous cardiac monitoring: An order was placed in the EMR for continous cardiac monitoring: Upon my elevation, he was noted to be in normal sinus with a rate of 70 Impression & Plan GI bleed, Anemia, SOB (shortness of breath), Current use of chcf anticoagulation Discharge Plan Visit Data Chief Complaint: GI Bleed Stated Complaint: [facility] REF, RECTAL BLEED, SOB ED Provider: Logan Miller Discharge Problem: GI bleed, Anemia, SOB (shortness of breath), Current use of [facility] anticoagulation Forms Stand Alone Forms: My [facility] Prescriptions Prescriptions: No Action prednisone 20 mg tablet 20 mg PO DAILY Rx Instructions: 2 tabs daily for 5 days. start 04/20/23 and end 04/25/23 Trelegy Ellipta 100-62.5-25 mcg blister with device 1 inh inhalation QAM fluticasone propionate 50 mcg/actuation spray,suspension 2 spray INTRANASAL DAILY ascorbic acid (vitamin C) 250 mg Tablet 125 mg PO QDL amoxicillin-pot clavulanate 500-125 mg tablet 1 tab PO AMHS Rx Instructions: start 04/20/23 and end 04/27/23 atorvastatin 80 mg tablet 80 mg PO QAM Patient Comments: around 11 am or so. ipratropium-albuterol 0.5 mg-3 mg(2.5 mg base)/3 mL solution for nebulization 3 ml INHALATION Q6H PRN (Reason: Shortness Of Breath Or Wheezing) ferrous sulfate 325 mg (65 mg iron) tablet 325 mg PO QAM allopurinol 300 mg tablet 150 mg PO DAILY Patient Comments: around 11 am or so. furosemide 20 mg tablet 20 mg PO BID azelastine 137 mcg (0.1 %) aerosol,spray 1 spray INTRANASAL BID albuterol sulfate 90 mcg/actuation HFA aerosol inhaler 2 puff INHALATION Q4H PRN (Reason: Shortness Of Breath Or Wheezing) ezetimibe 10 mg tablet 10 mg PO QAM potassium chloride [Klor-Con M10] 10 mEq tablet,ER particles/crystals 10 meq PO 3XWK Patient Comments: tue, tue and tue morning hours. Rx Instructions: on tue, tue and tuesday metoprolol tartrate 25 mg tablet 25 mg PO BID pantoprazole 40 mg tablet,delayed release (DR/EC) 40 mg PO AMHS docusate sodium 100 mg Capsule 100 mg PO BID PRN (Reason: Constipation) cholecalciferol (vitamin D3) [Vitamin D3] 50 mcg (2,000 unit) Tablet 50 mcg PO DAILY Patient Comments: around 11 am . Eliquis 2.5 mg Tablet 2.5 mg PO AMHS Referrals Referrals: Jairo Kingston MD [Primary Care Provider] - Discharge Problem: GI bleed Qualifiers: GI bleed type/associated pathology: unspecified gastrointestinal hemorrhage type Qualified Code(s): K92.2 - Gastrointestinal hemorrhage, unspecified Anemia Qualifiers: Anemia type: unspecified type Qualified Code(s): D64.9 - Anemia, unspecified
[2023-04-21] MEDS ORDERED: SODIUM CHLORIDE 0.9% 250 ML IV PRN (23:30)
[2023-04-21] MEDS ORDERED: PANTOPRAZOLE BOLUS/DRIP IV STA (23:31)
[2023-04-21] MEDS ORDERED: PANTOprazole 80 MG in DEXTROSE 5% 100 ML IV ONE (23:31)
[2023-04-22 00:12] LABS: Influenza A virus by PCR Negative (Neg); Influenza B virus by PCR Negative (Neg); RSV by PCR Negative (Neg); SARS CoV2 RNA(COVID-19) Ceph NEGATIVE (Negative)
[2023-04-22] MEDS ORDERED: ONDANSETRON INJ 2 MG/ML 2 ML VIAL IV PRN (02:34)
[2023-04-22] MEDS ORDERED: ALBUTEROL HFA 8 GM INHALER INH PRN (02:34)
[2023-04-22] MEDS ORDERED: ALBUT/IPRATROP 3MG/0.5MG NEB 3 ML VIAL INH PRN (02:34)
[2023-04-22] MEDS ORDERED: NITROGLYCERIN SL 0.4 MG/TAB TAB SL PRN (02:34)
[2023-04-22] MEDS ORDERED: SODIUM CHLORIDE 0.9% 1,000 ML IV SCH (02:34)
[2023-04-22] MEDS ORDERED: ACETAMINOPHEN 325 MG TAB PO PRN (02:34)
--- NOTE | 2023-04-22 02:43 | History & Physical Report ---
Date of Service April 22, 2023 Assessment & Plan (1) GI bleed: Plan: 72-year-old male with past medical history significant for hyperlipidemia, hyperparathyroidism, idiopathic chronic gout, COPD, obstructive sleep apnea on CPAP, hypertension, left renal artery stenosis, abdominal aortic aneurysm, severe aortic stenosis, chronic diastolic CHF, shaggy aorta syndrome, chronic kidney stage IV, iron deficiency anemia due to chronic blood loss, Waldenstrm's macroglobulinemia, history of AAA repair, history of CVA, history of SVT, history of biliary stent insertion, recently had multiple admission for GI bleed currently on iron infusions and says next infusion is tomorrow, Plavix is discontinued currently is on Eliquis 2.5 units twice daily comes because of black stools and also some blood in the mucus while coughing. States he was doing okay until the last couple of days when he noticed some black stools. He is having ongoing cough for 1 month. The last couple of days he brought some blood in the mucus. But he says the blood in the mucus is getting better. Seems he called PCPs office and advised to hold Eliquis for 5 days and prescribed prednisone and Augmentin and ordered chest x-ray. Home health nurse checking him today advised to come to the ER because of his ongoing issues. Hemoglobin stable. Denies any chest pain. Says he is short of breath uses oxygen 3 L all the time. Denies any headache. Has some runny nose. Has dry throat. No difficulty swallowing. Denies any abdominal pain. His balance is not great but ambulates okay without support. Lives with his . Currently hemodynamics are stable. GI bleed Hemoccult positive in the ER Hemoglobin stable at 10.4 Recent EGD in February showed 2 nonbleeding angioectasias in the stomach ER started PPI drip which will be continued Gentle fluids H&H every 6 hours Blood consent obtained GI consult in a.m. Cough Hemoptysis Cough is ongoing since last 1 month Last couple of days having some hemoptysis he seems he is getting better Will start Augmentin and prednisone. Will hold prednisone for now Ct chest Multifocal infiltrates on the right side placed on Zosyn and doxy. History of COPD Chronic respiratory failure on 3 L oxygen Continue home inhalers Nebs as needed Obstructive sleep apnea CPAP nightly Chronic diastolic CHF Severe aortic stenosis Holding Lasix Getting gentle fluids Monitor for volume overload CKD stage IV Creatinine 2.5 with seems to be her around baseline History of CVAs On statin Currently holding Eliquis History of gout On allopurinol Hypertension On amlodipine, metoprolol Holding Lasix Monitor Hyperlipidemia On statin DVT prophylaxis SCDs Disposition telemetry History of Present Illness Chief Complaint: GI bleed Primary Care Provider: Jairo Kingston MD 72-year-old male with past medical history significant for hyperlipidemia, hyper parathyroidism, idiopathic chronic gout, COPD, obstructive sleep apnea on CPAP, hypertension, left renal artery stenosis, abdominal aortic aneurysm, severe aortic stenosis, chronic diastolic CHF, shaggy aorta syndrome, chronic kidney stage IV, iron deficiency anemia due to chronic blood loss, Waldenstrm's macroglobulinemia, history of AAA repair, history of CVA, history of SVT, history of biliary stent insertion, recently had multiple admission for GI bleed currently on iron infusions and says next infusion is tomorrow, Plavix is discontinued currently is on Eliquis 2.5 units twice daily comes because of black stools and also some blood in the mucus while coughing. States he was doing okay until the last couple of days when he noticed some black stools. He is having ongoing cough for 1 month. The last couple of days he brought some blood in the mucus. But he says the blood in the mucus is getting better. Seems he called PCPs office and advised to hold Eliquis for 5 days and pres cribed prednisone and Augmentin and ordered chest x-ray. Home health nurse checking him today advised to come to the ER because of his ongoing issues. Hemoglobin stable. Denies any chest pain. Says he is short of breath uses oxygen 3 L all the time. Denies any headache. Has some runny nose. Has dry throat. No difficulty swallowing. Denies any abdominal pain. His balance is not great but ambulates okay without support. Lives with his . Currently hemodynamics are stable. Past medical history. As mentioned above Past surgical history. Abdominal aortic aneurysm repair, colonoscopy with biopsy, EGD, EGD with cyst drainage, EGD with endoscopic ultrasound, ERCP, incisional hernia repair and lysis of adhesions laparoscopically. Lumbar disc excision, tonsillectomy, tear duct system surgery. Social history. . Quit smoking in 2008. Smoked 1 pack a day for 35 years. Alcohol 3 standard drinks per week. No drug use. Family history. Father had AAA. Mother had dialysis. Brother hypertension. Heart disease. Sister has heart disease. Allergies Allergy/AdvReac Type Severity Reaction Status Date / Time RUBENS Inhibitors AdvReac Unknown DROPS Verified 04/21/23 16:12 BLOOD PRESSURE lisinopril AdvReac Unknown DROPS Verified 04/21/23 16:12 BLOOD PRESSURE Home Medications Medication Instructions Recorded Confirmed Type albuterol sulfate 90 mcg/actuation 2 puff inhalation Q4H PRN 01/30/23 04/21/23 History aerosol inhaler Shortness Of Breath Or Wheezing allopurinol 300 mg tablet 150 mg PO DAILY 01/30/23 04/21/23 History atorvastatin 80 mg tablet 80 mg PO QAM 01/30/23 04/21/23 History azelastine 137 mcg (0.1 %) nasal 1 spray intranasal BID 01/30/23 04/21/23 History spray aerosol cholecalciferol (vitamin D3) 50 50 mcg PO DAILY 01/30/23 04/21/23 History mcg (2,000 unit) tablet (Vitamin D3) docusate sodium 100 mg capsule 100 mg PO BID PRN Constipation 01/30/23 04/21/23 History ezetimibe 10 mg tablet 10 mg PO QAM 01/30/23 04/21/23 History ferrous sulfate 325 mg (65 mg 325 mg PO QAM 01/30/23 04/21/23 History iron) tablet furosemide 20 mg tablet 20 mg PO BID 01/30/23 04/21/23 History ipratropium 0.5 mg-albuterol 3 mg 3 ml inhalation Q6H PRN Shortness 01/30/23 04/21/23 History (2.5 mg base)/3 mL nebulization Of Breath Or Wheezing soln metoprolol tartrate 25 mg tablet 25 mg PO BID 01/30/23 04/21/23 History pantoprazole 40 mg tablet,delayed 40 mg PO AMHS 01/30/23 04/21/23 History release potassium chloride 10 mEq 10 meq PO 3XWK 01/30/23 04/21/23 History tablet,extended release(part/cryst) (Klor-Con M) apixaban 2.5 mg tablet (Eliquis) 2.5 mg PO AMHS 01/31/23 04/21/23 History fluticasone fur. 100 mcg-umeclid 1 inh inhalation QAM 02/15/23 04/21/23 History 62.5 mcg-vilant 25 mcg inhalat.powder (Trelegy Ellipta) amoxicillin 500 mg-potassium 1 tab PO AMHS 04/21/23 04/21/23 History clavulanate 125 mg tablet ascorbic acid (vitamin C) 250 mg 125 mg PO QDL 04/21/23 04/21/23 History tablet fluticasone propionate 50 2 spray intranasal DAILY 04/21/23 04/21/23 History mcg/actuation nasal spray,suspension prednisone 20 mg tablet 20 mg PO DAILY 04/21/23 04/21/23 History Past Med/Surg History Medical History Gastroparesis pt is not sure about this dx. History of colon polyps x1 a few yrs ago/follow up in 5 yrs. 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 "never heard of it" Hyperparathyroidism denies COPD (chronic obstructive pulmonary disease) exacerbation Dec 2022 - Hospitalized [facility] Dec 24-2022. Med change and effective since. Denies current issues. O2 2 L HS & PRN throughout day. 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 Ascending thoracic aorta at the level of the right pulmonary artery 4.2 cm unchanged. 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 Descending thoracic aorta at the level of the left atrium again up to 4.[address] scan Dec 2022 - pt told everything was stable. 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 follows with Dr. Jefferson Gastric ulcer Hearing deficit BL NAILS Hx SBO History of GI bleed Stroke X 2 (LAST EVENT 05/2020) CONT. TO HAVE SLIGHT BALANCE ISSUES Sleep apnea CPAP Hx of gout PSVT (paroxysmal supraventricular tachycardia) Aortic stenosis Thoracic aortic atherosclerosis, densely calcified coronary arteries, severely calcified aortic valve, aneurysmal outpouching of the aortic arch. CKD (chronic kidney disease), stage III follows with [facility] nephrology Hyperlipidemia Hypertension Surgical History History of esophagogastroduodenoscopy (EGD) most recent a few months ago for a bleed, this is a follow up procedure. History of tooth extraction History of tonsillectomy and adenoidectomy pt not sure about adenoids. History of lumbar surgery 1999 S/P AAA repair 01/13/2009 - Dr Suazo ([place] YEARLY AT [facility]) Hx of colonoscopy Hx of hernia repair lysis of adhesions, incisional hernia repair laparoscopically 01/28/2010 at [facility] - Dr Desouza Family History Other AAA (abdominal aortic aneurysm) Hypertension No family history of adverse response to anesthesia Social History Smoking Status: Former smoker Tobacco Type: Cigarettes Age Started Using Tobacco: 18; Cigarettes Per Day: Former cigarette. Quit 1998; Second Hand Exposure: No; Do You Dip or Chew Tobacco: No; Hx Alcohol Use: No Hx Substance Use: No Preferred Language: Icelandic Communication Ability: Effective Communication Ability Comment: pt communication effective Clinical Faculty Required: No Beliefs That Will Affect Care: None marital status: Current Living Situation: Spouse and Family Current Living Situation Comment: and daughter current occupational status: employed Feels Safe at Home: Yes Assistive Devices: Cane, Glasses, Hearing Aid - Bilateral, Oxygen - Continuous and Walker Review of Systems Review of Systems: All systems reviewed & are unremarkable except as noted in HPI & below Physical Exam Physical Exam: General- Not in distress. Head- atraumatic Eyes- PERRL. ENT- oropharynx clear Neck- supple, no JVD. Lungs- clear to auscultation no wheezing or crackles. Heart- regular rhythm; no murmur, no gallop. Abdomen- normal bowel sounds, soft, nontender, no distension. Extremities- no pretibial edema, no erythema seen. Neuro- alert, oriented x 3; PERRL, no facial palsy; no dysarthria; moves extremities. Skin- warm & dry Results & Data Results & Data Vital Signs (Past 12 Hours) Vital Signs Temp Pulse Resp BP Pulse Ox O2 Del Method O2 Flow Rate 04/22/23 00:35 98 Nasal Cannula 3 04/22/23 00:30 71 24 150/84 H 100 Nasal Cannula 3 04/22/23 00:00 68 18 150/82 H 97 Nasal Cannula 3 04/21/23 23:30 73 22 155/118 H 100 Nasal Cannula 3 04/21/23 23:23 72 04/21/23 19:25 36.8 C 88 18 146/76 H 96 Nasal Cannula 3 Diagnostic Findings Laboratory Results WBC 11.34 K/ul (4.8-10.8) H 04/21/23 20:26 RBC 3.46 M/uL (4.70-6.10) L 04/21/23 20:26 Hgb 10.4 g/dl (14.0-18.0) L 04/21/23 20:26 Hct 33.2 % (42.0-52.0) L 04/21/23 20: MCV 96.0 fL (80.0-100.0) 04/21/23 20:26 MCH 30.1 pg (25.0-34.0) 04/21/23 20: MCHC 31.3 g/dL (32.0-36.0) L 04/21/23 20:26 RDW Std Deviation 59.7 fL (36.4-46.3) H 04/21/23 20:26 RDW Coeff of Chaka 17.1 % (11.5-14.5) H 04/21/23 20:26 Plt Count 265 K/uL (130-400) 04/21/23 20:26 MPV 10.5 fL (9.4-12.4) 04/21/23 20: PT 11.7 Seconds (9.0-12.0) 04/21/23 20:26 INR 1.1 (0.9-1.1) 04/21/23 20:26 APTT 29 Seconds (21-31) 04/21/23 20: PTT Ratio 1.0 04/21/23 20:26 Sodium 135 mmol/L (136-145) L 04/21/23 20:26 Potassium 4.5 mmol/L (3.5-5.1) 04/21/23 20:26 Chloride 102 mmol/L (98-107) 04/21/23 20:26 Carbon Dioxide 22 mmol/L (21-32) 04/21/23 20:26 Anion Gap 11 (3-11) 04/21/23 20:26 BUN 44 mg/dl (6-23) H 04/21/23 20:26 Creatinine 2.57 mg/dl (0.6-1.4) H 04/21/23 20:26 Est Cr Clr Drug Dosing Not Reportable 04/21/23 20:26 Est GFR ( Amer) 27.3 ml/min 04/21/23 20:26 Est GFR (Non-Af Amer) 23.6 ml/min 04/21/23 20:26 BUN/Creatinine Ratio 17.1 (10-20) 04/21/23 20:26 Glucose 175 mg/dl (70-99(Fasting)) H 04/21/23 20:26 Calcium 9.2 mg/dl (8.6-10.3) 04/21/23 20:26 Total Bilirubin 0.4 mg/dl (0.2-1.0) 04/21/23 20:26 AST 37 U/L (13-39) 04/21/23 20:26 ALT 32 U/L (7-52) 04/21/23 20:26 Alkaline Phosphatase 190 U/L (34-104) H 04/21/23 20:26 Troponin I High Sens 13.4 pg/ml (0-20) 04/21/23 20:26 Total Protein 7.8 gm/dl (6.0-8.3) 04/21/23 20:26 Albumin 3.8 gm/dl (3.4-5.0) 04/21/23 20:26 Globulin 4.0 gm/dl (2.5-4.0) 04/21/23 20:26 Albumin/Globulin Ratio 1.0 (0.9-2) 04/21/23 20:26 SARS-CoV-2 (PCR) NEGATIVE (Negative) 04/21/23 23:15 Influenza Type A (PCR) Negative (Neg) 04/21/23 23:15 Influenza Type B (PCR) Negative (Neg) 04/21/23 23:15 RSV (RT-PCR) Negative (Neg) 04/21/23 23:15 Blood Type A Positive 04/21/23 20:29 Antibody Screen NEGATIVE 04/21/23 20:29 Crossmatch See Detail 04/21/23 20:29 ECG Additional Comments: ECG. Normal sinus rhythm rate of 77. No significant change was found. Code Status & VTE Plan VTE Prophylaxis Plan VTE Prophylaxis will be ordered: Yes (1) GI bleed GI bleed type/associated pathology: unspecified gastrointestinal hemorrhage type Qualified Code(s): K92.2 - Gastrointestinal hemorrhage, unspecified
[2023-04-22] MEDS ORDERED: Patient's HEIGHT &/or WEIGHT Needed STA (03:32)
[2023-04-22] MEDS: PANTOprazole 40 MG in DEXTROSE 5% MINI-B 100 ML IV SCH ×5 (05:44→22:23)
[2023-04-22 06:01] LABS: Basophils # (auto) 0.04 K/uL (0.00-0.20); Basophils % (auto) 0.3 %; Eosinophils # (auto) 0.03 K/uL (0.00-0.50); Eosinophils % (auto) 0.2 %; Hematocrit (blood only) 33.3 % (42.0-52.0); Hemoglobin 10.5 g/dl (14.0-18.0); Immature Granulocytes # (auto) 0.11 K/uL (0.01-0.20); Immature Granulocytes % (auto) 0.9 %; Lymphocytes # (auto) 0.76 K/uL (1.20-3.40); Lymphocytes % (auto) 6.3 %; Mean Corpuscular Hgb Conc 31.5 g/dL (32.0-36.0); Mean Corpuscular Volume 95.1 fL (80.0-100.0); Monocytes # (auto) 0.97 K/uL (0.11-0.59); Neutrophils # (auto) 10.19 K/uL (1.40-6.50); Neutrophils % (auto) 84.3 %; Platelet Count 288 K/uL (130-400); RDW Coefficient of Variation 16.8 % (11.5-14.5); RDW Standard Deviation 58.6 fL (36.4-46.3)
[2023-04-22 06:15] LABS: BUN Creatinine Ratio 18.3 (10-20); Calcium 8.6 mg/dl (8.6-10.3); Creatinine Clr Calc Pharmacy 28.9 ml/min; Est GFR (African American) 30.5 ml/min; Est GFR (Non-African American) 26.3 ml/min; Magnesium 2.1 mg/dl (1.7-2.4); Potassium 4.1 mmol/L (3.5-5.1)
--- NOTE | 2023-04-22 06:50 | CT Scan Report ---
Exam(s): CT CHEST Without Contrast EXAM: CT Chest Without Intravenous Contrast CLINICAL HISTORY: Reason for exam: hemoptysis?. TECHNIQUE: Axial computed tomography images of the chest without intravenous contrast. Automated exposure control was utilized for the study. A dose lowering technique was utilized adhering to the principles of ALARA. COMPARISON: No relevant prior studies available. FINDINGS: Lungs: There is infiltrative regions to a subsegment of the medial aspect of the right middle lobe as well as to a subsegment of the medial aspect of the right lower lobe. Additional area demonstrated posterior inferior right lower lobe small in size. Anterior lateral margin of the mid to superior left hemithorax reveals focal pleural thickening and calcifications with some approximated linear densities within the lungs/for presumed scar. No mass. Pleural space: There is calcifications within the pleural located. No pneumothorax. No significant effusion. Heart: Unremarkable. No cardiomegaly. No significant pericardial effusion. No significant coronary artery calcifications. Bones/joints: Unremarkable. No acute fracture. No dislocation. Soft tissues: Unremarkable. Vasculature: There is a 5.9 cm focal aneurysm demonstrated to the superior aspect of the descending thoracic aorta previously 5.7 cm on a October 2022 exam. Lymph nodes: Unremarkable. No enlarged lymph nodes. Gallbladder and bile ducts: There is air within the presumed biliary system presumably related to prior sphincterotomy incompletely assessed on this exam. Intraperitoneal space: Postsurgical changes demonstrated within the abdomen. IMPRESSION: Multifocal infiltrates on the right side follow-up to resolution. Focal aneurysm to the aorta as described. Chronic change additional Electronically signed by: Aiden Nolan MD 04/22/23 06:49 AM
--- NOTE | 2023-04-22 07:28 | XRay Report ---
XR chest 1V portable HISTORY: cough COMPARISON: Chest 02/23/2023. FINDINGS: No pneumothorax. No pleural effusions. The heart remains enlarged. There is a tortuous thor acic aorta with associated aneurysmal dilatation again noted. Left calcified pleural plaques. Hazy ap pearance to the right medial lung base is new compared the prior study. No evidence for pulmonary beatriz ma. IMPRESSION: 1. Hazy opacity within the right medial lung base which is new compared to the prior study. This like ly represents a pneumonia. Follow-up recommended to ensure resolution. 2. Aneurysmal dilatation of the thoracic aorta again noted. ACT 112: Negative or not required by law. Electronically signed by: Angel Mak M.D. 04/22/2023 7:27 AM
[2023-04-22] MEDS ORDERED: PIPER/TAZO 4.5g in D5W MINI-B 100 ML IV ONE (07:30)
[2023-04-22] MEDS ORDERED: PIPERACILLIN/TAZOBACTAM 4.5 GM/100ML D5W IV ONE (07:59)
[2023-04-22] MEDS: DOXYCYCLINE HYCLATE 100 MG in DEXTROSE 5% MINI-B 100 ML IV SCH ×2 (08:11→20:14)
[2023-04-22] MEDS ORDERED: AMOXICILLIN/CLAVULANATE 500 MG TAB PO SCH (09:00)
--- NOTE | 2023-04-22 09:27 | Gastrointestinal Consultation ---
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 England w/ EUS guided GB drainage amitted with black stools and hemoptysis, CT imaging showing pneumonia. There was a discussion earlier today about completing EGD this AM - However, after return of CT showing PNA, discussing with Dr. Sorto at patients family, the decision was made to treat conservatively until his respiratory status improves as his hemoglobin is stable. If there is any concern for active GI bleeding, and EGD would urgently be needed at that time. Hospitalist updated - Treat PNA - May advance diet as tolerated - Trend H&H -Transfuse PRN. - Document GI output - Agree w/ IV PPI bolus/dripx 2 days then PO BID. - Hold AC - Continue other OP medications - No NSAIDs. - EGD pending clinical course and pulmonary function improvement Thank you for allowing us to participate in the care of this patient. Please call with any acute changes, questions or concerns. Please see addendum below with additional recommendation from my supervising physician. (2) History of GI bleed: Supervising Physician Co-Signing Physician Notes I personally saw and evaluated the patient on 04/22/2023 with YARA Bland and agree with her findings and plan of care. 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 Currently he is being treated with IV abx for pneumonia and does have some increased work of breathing. He is on 3L O2 at home at baseline for his COPD. He does endorse black stools for the past week without any hematemesis or hematochezia. hgb is actually stable at 10. At this time will hold off on EGD given tenuous respiratory status. Will monitor over the weekend and if he continues to have bleeding would plan for EGD next week after respiratory status improves. PPI 40 mg BID. Trend H/H and transfuse for hgb <7. 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 England w/ EUS guided GB drainage using Axios stent admitted w/ dark stools and hemoptysis. Pt was seen and evaluated, chart reviewed. He notes some dark stools for at least a few days - contacted his outpatietn team who recommending holding eliquis, unclear to me if this was done, however, dark stools persisted. He also notes a cough, hemoptysis for about [address] this AM showing PNA HGB 10.5 BUN 43 CTAP 2022:Metallic densities are seen in the stomach, new from prior exam, which may represent ingested objects such as metallic clips. No perforation is seen. 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 Additional findings as above. EGD 2022: - Normal esophagus. - Retained Endoclips in the stomach. - Two non-bleeding angioectasias in the stomach. Treated with argon plasma coagulation (APC) and Clips. - Cholecystoduodenostomy Axios stent intact. - Normal duodenal bulb and second portion of the duodenum. - No specimens collected. EGD 2022: - Normal esophagus. 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 Treated with argon plasma coagulation (APC). Clips (MR conditional) were placed. . - Normal duodenal bulb and second portion of the duodenum. - No specimens collected. EUS 2022: There was no sign of significant pathology in the ampulla. - There was dilation in the common bile duct which measured up to 9 mm. - One stone was visualized endosonographically in the common bile duct. - Multiple stones were visualized endosonographically in the gallbladder. - There was no evidence of significant pathology in the visualized portion of the liver. - There was no sign of significant pathology in the entire pancreas. - Endosonographic images of the left adrenal gland were unremarkable. - The celiac trunk was endosonographically normal. ERCP 2022: - Choledocholithiasis was found. Complete removal was accomplished by biliary sphincterotomy and balloon extraction. - One plastic pancreatic stent was placed into the ventral pancreatic duct. - One plastic biliary stent was placed into the common bile duct. - One transpapillary plastic biliary stent was placed into the gallbladder. ERCP 2022: - Prior biliary sphincterotomy appeared open. - Three visibly patent stents from the biliary tree and the pancreatic duct were seen in the major papilla. - Hemostasis of the sphincterotomy site with bipolar cautery was performed. - The biliary tree was swept and clots were found. - One covered metal stent was placed into the common bile duct for hemostatis (tamponade). Small bowel enteroscopy 2022: Normal esophagus. - A single non-bleeding angioectasia in the stomach. Clips (MR conditional) were placed. - Normal examined duodenum. - The examined portion of the jejunum was normal. - No specimens collected. EUS 2022: Cholecystoduodenostomy was performed using 10 mm Axios stent. ERCP 2022: One stent was removed from the common bile duct. - The biliary tree was swept and nothing was found. VCE 2022: No evidence of GI bleeding Allergies Allergy/AdvReac Type Severity Reaction Status Date / Time RUBENS Inhibitors AdvReac Unknown DROPS Verified 04/21/23 16:12 BLOOD PRESSURE lisinopril AdvReac Unknown DROPS Verified 04/21/23 16:12 BLOOD PRESSURE Home Medications Medication Instructions Recorded Confirmed Type albuterol sulfate 90 mcg/actuation 2 puff inhalation Q4H PRN 01/30/23 04/21/23 History aerosol inhaler Shortness Of Breath Or Wheezing allopurinol 300 mg tablet 150 mg PO DAILY 01/30/23 04/21/23 History atorvastatin 80 mg tablet 80 mg PO QAM 01/30/23 04/21/23 History azelastine 137 mcg (0.1 %) nasal 1 spray intranasal BID 01/30/23 04/21/23 History spray aerosol cholecalciferol (vitamin D3) 50 50 mcg PO DAILY 01/30/23 04/21/23 History mcg (2,000 unit) tablet (Vitamin D3) docusate sodium 100 mg capsule 100 mg PO BID PRN Constipation 01/30/23 04/21/23 History ezetimibe 10 mg tablet 10 mg PO QAM 01/30/23 04/21/23 History ferrous sulfate 325 mg (65 mg 325 mg PO QAM 01/30/23 04/21/23 History iron) tablet furosemide 20 mg tablet 20 mg PO BID 01/30/23 04/21/23 History ipratropium 0.5 mg-albuterol 3 mg 3 ml inhalation Q6H PRN Shortness 01/30/23 04/21/23 History (2.5 mg base)/3 mL nebulization Of Breath Or Wheezing soln metoprolol tartrate 25 mg tablet 25 mg PO BID 01/30/23 04/21/23 History pantoprazole 40 mg tablet,delayed 40 mg PO AMHS 01/30/23 04/21/23 History release potassium chloride 10 mEq 10 meq PO 3XWK 01/30/23 04/21/23 History tablet,extended release(part/cryst) (Klor-Con M) apixaban 2.5 mg tablet (Eliquis) 2.5 mg PO AMHS 01/31/23 04/21/23 History fluticasone fur. 100 mcg-umeclid 1 inh inhalation QAM 02/15/23 04/21/23 History 62.5 mcg-vilant 25 mcg inhalat.powder (Trelegy Ellipta) amoxicillin 500 mg-potassium 1 tab PO AMHS 04/21/23 04/21/23 History clavulanate 125 mg tablet ascorbic acid (vitamin C) 250 mg 125 mg PO QDL 04/21/23 04/21/23 History tablet fluticasone propionate 50 2 spray intranasal DAILY 04/21/23 04/21/23 History mcg/actuation nasal spray,suspension prednisone 20 mg tablet 20 mg PO DAILY 04/21/23 04/21/23 History Patient History Medical History Gastroparesis pt is not sure about this dx. History of colon polyps x1 a few yrs ago/follow up in 5 yrs. 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 "never heard of it" Hyperparathyroidism denies COPD (chronic obstructive pulmonary disease) exacerbation Dec 2022 - Hospitalized [facility] Sep -2022. Med change and effective since. Denies current issues. O2 2 L HS & PRN throughout day. 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 Ascending thoracic aorta at the level of the right pulmonary artery 4.2 cm unchanged. 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 Descending thoracic aorta at the level of the left atrium again up to 4.[address] scan Dec 2022 - pt told everything was stable. 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 follows with Dr. Jefferson Gastric ulcer Hearing deficit BL NAILS Hx SBO History of GI bleed Stroke X 2 (LAST EVENT 05/2020) CONT. TO HAVE SLIGHT BALANCE ISSUES Sleep apnea CPAP Hx of gout PSVT (paroxysmal supraventricular tachycardia) Aortic stenosis Thoracic aortic atherosclerosis, densely calcified coronary arteries, severely calcified aortic valve, aneurysmal outpouching of the aortic arch. CKD (chronic kidney disease), stage III follows with [facility] nephrology Hyperlipidemia Hypertension Surgical History History of esophagogastroduodenoscopy (EGD) most recent a few months ago for a bleed, this is a follow up procedure. History of tooth extraction History of tonsillectomy and adenoidectomy pt not sure about adenoids. History of lumbar surgery 1999 S/P AAA repair 01/13/2009 - Dr Suazo ([facility]) Hx of colonoscopy Hx of hernia repair lysis of adhesions, incisional hernia repair laparoscopically 01/28/2010 at [facility] - Dr Desouza Family History Other AAA (abdominal aortic aneurysm) Hypertension No family history of adverse response to anesthesia Social History Smoking Status: Former smoker Tobacco Type: Cigarettes Age Started Using Tobacco: 18; Cigarettes Per Day: Former cigarette. Quit 1998; Second Hand Exposure: No; Do You Dip or Chew Tobacco: No; Hx Alcohol Use: No Hx Substance Use: No Preferred Language: Albanian Communication Ability: Effective Communication Ability Comment: pt communication effective Point Of Care Technician Required: No Beliefs That Will Affect Care: None marital status: Current Living Situation: Spouse and Family Current Living Situation Comment: and daughter current occupational status: employed Feels Safe at Home: Yes Assistive Devices: Cane, Glasses, Hearing Aid - Bilateral, Oxygen - Continuous and Walker Review of Systems Review of Systems: All systems reviewed & are unremarkable except as noted in HPI & below Physical Exam Constitutional: WD/WN, vitals as above Wearing O2 Respiratory: normal respiratory effort; no respiratory distress and no labored breathing Cardiovascular: Rate/Rhythm: regular rate Gastrointestinal (Abdomen): normal bowel sounds, soft, nontender, no hepatosplenomegaly Skin: no rashes, warm and dry Results & Data Vital Signs (Past 12 Hours) Vital Signs Pulse Resp BP Pulse Ox O2 Del Method O2 Flow Rate 04/22/23 07:35 64 04/22/23 05:30 73 18 149/86 H 90 Nasal Cannula 3 04/22/23 04:30 66 22 98 04/22/23 04:00 66 18 165/98 H 98 04/22/23 04:00 Nasal Cannula 3 04/22/23 02:30 69 18 137/79 97 Nasal Cannula 3 04/22/23 02:01 73 22 156/86 H 97 Nasal Cannula 3 04/22/23 01:30 70 18 182/106 H 99 04/22/23 01:00 71 18 172/92 H 100 04/22/23 00:35 98 Nasal Cannula 3 04/22/23 00:30 71 24 150/84 H 100 Nasal Cannula 3 04/22/23 00:00 68 18 150/82 H 97 Nasal Cannula 3 04/21/23 23:30 73 22 155/118 H 100 Nasal Cannula 3 04/21/23 23:23 72
[2023-04-22] MEDS: FLUTICASONE PROPIONATE NA SPR 16 GM BTL SCH (09:48)
[2023-04-22] MEDS: AZELASTINE HCL 0.1% NASAL 200 SPRAYS/27,400 MCG BTL SCH ×2 (09:48→21:00)
[2023-04-22] MEDS: FLUTICASONE FUROATE 100MCG 14 PUFFS/INHALER INH SCH (09:50)
[2023-04-22] MEDS: UMECLIDINIUM/VILANTEROL 62.5/25MCG 7 PUFFS/INHALER INH SCH (09:50)
[2023-04-22] MEDS: allopurinoL 300 MG TAB PO SCH (09:51)
[2023-04-22] MEDS: ATORVASTATIN 40 MG TAB PO SCH (09:51)
[2023-04-22] MEDS: METOPROLOL TARTRATE 25 MG TAB PO SCH ×2 (09:52→20:16)
[2023-04-22] MEDS: EZETIMIBE 10 MG TAB PO SCH (09:52)
[2023-04-22] MEDS: ASCORBIC ACID 500 MG TAB PO SCH (09:52)
[2023-04-22] MEDS: FERROUS SULFATE 325 MG TAB PO SCH (09:52)
--- NOTE | 2023-04-22 11:31 | Electrocardiogram Report ---
Test Reason : Blood Pressure : / mmHG Vent. Rate : 077 BPM Atrial Rate : 077 BPM P-R Int : 168 ms QRS Dur : 096 ms QT Int : 406 ms P-R-T Axes : 028 021 036 degrees QTc Int : 459 ms Normal sinus rhythm Normal ECG When compared with ECG of 23-FEB-2023 12:08, No significant change was found Confirmed by Aaron Dunbar ([id number]) on 04/22/2023 11:30:47 AM Referred By: REFERRED SELF Confirmed By:Aaron Dunbar
[2023-04-22 11:37] LABS: Hematocrit (blood only) 30.5 % (42.0-52.0)
--- NOTE | 2023-04-22 12:59 | Hospitalist Progress Note ---
Date of Service April 22, 2023 Assessment & Plan (1) GI bleed: Plan: 72-year-old male with past medical history significant for hyperlipidemia, hyperparathyroidism, idiopathic chronic gout, COPD, obstructive sleep apnea on CPAP, hypertension, left renal artery stenosis, abdominal aortic aneurysm, severe aortic stenosis, chronic diastolic CHF, shaggy aorta syndrome, chronic kidney stage IV, iron deficiency anemia due to chronic blood loss, Waldenstrm's macroglobulinemia, history of AAA repair, history of CVA, history of SVT, history of biliary stent insertion, recently had multiple admission for GI bleed currently on iron infusions presents with cough and melena Upper GI bleed Patient presents with melena for several weeks. Hemoccult positive in the ER Hemoglobin stable at 10.4 Recent EGD in February showed 2 nonbleeding angioectasias in the stomach GI discussed with patient's daughter; the initial plan was to do EGD today. However, GI recommended that his respiratory status improves before considering EGD. Continue PPI drip Continue to monitor signs of upper GI bleed. Monitor H&H every 6 hours. Pneumonia Hemoptysis Cough is ongoing since last 1 month Last couple of days having some hemoptysis he seems he is getting better Ct chest personally reviewed multifocal infiltrates on the right side Airway clearance with DuoNeb and hypertonic saline. Obtain a sputum culture Continue Zosyn and doxycycline; plan to treat for 7 days. History of COPD Chronic respiratory failure on 3 L oxygen Continue home inhalers Nebs as needed Obstructive sleep apnea CPAP nightly Chronic diastolic CHF Severe aortic stenosis Holding Lasix; appears compensated Getting gentle fluids Monitor for volume overload CKD stage IV Creatinine 2.5 with seems to be around baseline History of CVAs On statin EKG personally reviewed; normal sinus rhythm with no ST or T wave changes Eliquis is currently on hold. Discussed the risk( of stroke) associated with holding Eliquis with patient and patient's daughter. Both verbalized understanding History of gout On allopurinol Hypertension On amlodipine, metoprolol Holding Lasix Monitor Hyperlipidemia On statin DVT prophylaxis SCDs Disposition : Patient admitted with pneumonia and concern for upper GI bleed. Requires close monitoring of H&H and treatment of underlying pneumonia. Please note the above document was generated using voice recognition software. It may contain grammatical, syntax or spelling errors. Any formal questions or concerns about the content, text or information contained within the body of this dictation should be directly addressed to the provider for clarification Admission and Anticipated Discharge Date Admission Date: April 22, 2023 Subjective Patient seen and examined at bedside. He is sitting up at the side of the bed; not in any distress. He reports that coughing up mucoid sputum. He denies fever, chills, or shortness of breath. No complaints of hematemesis or melena today. Review of Systems Review of Systems: All systems reviewed & are unremarkable except as noted in Subjective Physical Exam Physical Exam: Constitutional: WD/WN, vitals as above, NAD, sitting up in bed, pleasant, conversing easily Respiratory: Crackles present on right lower lobe. Cardiovascular: RRR, no murmur, no edema Vessels: no JVD or carotid bruit Chest: normal inspection of chest Abdomen: normal bowel sounds, soft, nontender, no hepatosplenomegaly Musculoskeletal: no cyanosis or clubbing, extremities motor strength 5/5 Skin: no rashes, warm and dry normal turgor Neurologic: PERRL, EOMI, accommodation nl, no face palsy, no dysarthria CN's II- XI intact bilaterally and moves all extremities Psychiatric: A+Ox3, euthymic affect Results & Data Results & Data Vital Signs (Past 12 Hours) Vital Signs Temp Pulse Pulse Resp BP BP Pulse Ox 04/22/23 12:06 60 04/22/23 11:33 36.6 C 60 18 142/79 H 99 04/22/23 10:55 04/22/23 10:01 36.8 C 85 24 113/73 95 04/22/23 07:35 64 04/22/23 07:00 37.0 C 78 22 147/73 H 95 04/22/23 05:30 73 18 149/86 H 90 04/22/23 04:30 66 22 98 04/22/23 04:00 66 18 165/98 H 98 04/22/23 04:00 04/22/23 02:30 69 18 137/79 97 04/22/23 02:01 73 22 156/86 H 97 04/22/23 01:30 70 18 182/106 H 99 04/22/23 01:00 71 18 172/92 H 100 O2 Del Method O2 Flow Rate 04/22/23 12:06 04/22/23 11:33 Nasal Cannula 04/22/23 10:55 Nasal Cannula 3 04/22/23 10:01 Nasal Cannula 3 04/22/23 07:35 04/22/23 07:00 Nasal Cannula 3 04/22/23 05:30 Nasal Cannula 3 04/22/23 04:30 04/22/23 04:00 04/22/23 04:00 Nasal Cannula 3 04/22/23 02:30 Nasal Cannula 3 04/22/23 02:01 Nasal Cannula 3 04/22/23 01:30 04/22/23 01:00 (1) GI bleed GI bleed type/associated pathology: unspecified gastrointestinal hemorrhage type Qualified Code(s): K92.2 - Gastrointestinal hemorrhage, unspecified
[2023-04-22] MEDS ORDERED: ALBUT/IPRATROP 3MG/0.5MG NEB 3 ML VIAL NEB SCH (13:00)
[2023-04-22] MEDS: SODIUM CHLOR 7% 4 ML NEB NEB SCH ×2 (13:11→20:26)
[2023-04-22] MEDS: ALBUT/IPRATROP 3MG/0.5MG NEB 3 ML VIAL NEB SCH ×2 (13:11→20:26)
--- OUTSIDE RECORDS SUMMARY | 2023-04-22 13:28 | External Medical Summary | Summary of Care ---
Author Name Unknown Organization [facility] Address [address] [place] [address] Phone [phone] Care Team Providers Care Corner Block Cutter Name Role Phone Jairo Kingston MD Primary Care Provider [phone] Reason for Visit * Reason Onset Date Comments [facility]: Maintenance 04/21/2023 Encounter Details Date Type Department Care Team (Late st Contact Info) Description 04/21/2023 1:30 PM EST Scheduled Telephone [facility], [facility] [address] [place] [address] Coordinator, [facility] [address] [place] [address] Allergies Active Allergy Reactions Criticality Noted Date Comments Pavan Inhibitors Other (Please comment) 0 Hyperkalemia documented as of this encounter (statuses as of 04/21/2023) Medications Medication Sig Dispensed Refills Start Date End Date Status oxygen GAS Use 3 L/min(Oxygen) as directed at bedtime. Use 2-3 l/min continuously to keep pulse ox above 90% 0 Active [facility] D3 50 MCG (1999) Oral Capsule (Cholecalciferol)Ind ications:Vitamin D deficiency TAKE 1 CAPSULE BY MOUTH EVERY DAY 90 Cap 1 02/12/2020 Active Fluticasone Propionate 50 MCG/ACT Nasal Suspension (Flonase) INSTILL 2 SPRAYS INTO EACH NOSTRIL EVERY DAY 48 g 3 08/17/2022 05/01/202 4 Active Allopurinol 300 MG Oral Tablet (Zyloprim)Indication s:Gout TAKE ONE-HALF TABLET BY MOUTH EVERY DAY 45 Tablet 2 08/12/2022 4 Active Atorvastatin Calcium 80 MG Oral Tablet (Lipitor) TAKE ONE TABLET BY MOUTH EVERY DAY 90 Tablet 3 04/18/2022 4 Active Sucralfate 1 GM/10ML Oral Suspension (Carafate) Take 10 mL by mouth in the morning and 10 mL at noon and 10 mL before bedtime. 420 mL 0 11/09/2022 Active Potassium Chloride Marla ER 10 MEQ Oral Tablet Extended Release Take 1 Tablet by mouth once a day on Tuesday, Tuesday, and Tuesday only. 45 Tablet 3 12/03/2022 Active CPAP every night at bedtime. 0 Active Ascorbic Acid 250 MG Oral TabletIndications:Ir on deficiency anemia, unspecified iron deficiency anemia type Take 0.5 Tablets by mouth daily at noon. 90 Tablet 3 12/14/2022 Active Ferrous Sulfate 325 (65 Fe) MG Oral Tablet (Feosol)Indications: Iron deficiency anemia, unspecified iron deficiency anemia type Take 1 Tablet by mouth daily at noon. 90 Tablet 3 12/14/2022 Active Albuterol Sulfate HFA 108 (90 Base) MCG/ACT Inhalation Aerosol Solution Inhale 2 Puffs by mouth every 4 hours as needed for Wheezing. 54 g 6 01/06/2023 Active Apixaban 2.5 MG Oral Tablet (Eliquis)Indications :Recurrent cerebrovascular accidents (CVAs) (HCC) Take 1 Tablet by mouth in the morning and 1 Tablet before bedtime. 180 Tablet 1 01/10/2023 Active Azelastine HCl 0.1 % Nasal Solution (Astelin) Administer 1 [place] into nostril in the morning and 1 [place] before bedtime. 30 mL 1 01/11/2023 Active Furosemide 20 MG Oral Tablet (Lasix) TAKE 1 TABLET BY MOUTH twice DAILY 90 Tablet 3 01/18/2023 Active Ipratropium-Albutero l 0.5-2.5 (3) MG/3ML Inhalation Solution (Duoneb) Inhale 3 mL by mouth every 6 hours as needed (sob). 360 mL 5 01/18/2023 Active Octreotide Acetate 10 MG Intramuscular Kit (SandoSTATIN LAR [place]) Inject 10 mg into a large muscle every month for 6 doses. 6 Kit 0 01/24/2023 Active Ezetimibe 10 MG Oral Tablet (Zetia)Indications:D yslipidemia, goal LDL below 70 TAKE ONE TABLET BY MOUTH EVERY MORNING 90 Tablet 3 02/04/2023 4 Active Metoprolol Tartrate 25 MG Oral Tablet (Lopressor) Take 1 Tablet by mouth in the morning and 1 Tablet before bedtime. 100 Tablet 3 02/14/2023 Active Trelegy Ellipta 100-62.5-25 MCG/ACT Aerosol Powder Breath Activated (Fluticasone-Umeclid inium-Vilanterol) Inhale one puff daily 180 Each 1 04/04/2023 Active Docusate Sodium 100 MG Oral Capsule (Colace) Take 1 Capsule by mouth 2 times a day as needed for Constipation. 180 Capsule 3 04/20/2023 Active Pantoprazole Sodium 40 MG Oral Tablet Delayed Release (Protonix) Take 1 Tablet by mouth in the morning and 1 Tablet before bedtime. 180 Tablet 3 04/20/2023 Active Amoxicillin-Pot Clavulanate 500-125 MG Oral Tablet (Augmentin) Take 1 Tablet by mouth in the morning and 1 Tablet before bedtime. Do all this for 7 days. 14 Tablet 0 04/20/2023 4 Active predniSONE 20 MG Oral Tablet (Deltasone) Take 2 Tablets by mouth in the morning for 5 days. 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 COPD, group C, by GOLD 2017 classification 12/27 Overview: Per COPD GOLD Classification Hypertensive heart and chron ic kidney disease with diastolic congestive heart failure 12/14/2022 History of biliary stent insertion 12/08/2022 GI bleed 12/08/2022 Benign hypertensive kidney disease, stage IV Last Assessment & Plan: cristina Gonsalves History of supraventricular tachycardia 07/27/20 23 Idiopathic chronic gout of foot without tophus 0 11/11/2022 Last Assessment & Plan: Allopurinol lacquer sizer No new attacks GINNY on CPAP 11/11/2022 Last Assessment & Plan: CPAP with O2 bled in Anemia associated with chronic renal failure Overview: Per CKD protocol Acute on chronic blood loss anemia 10/11/2022 Monoclonal paraproteinemia 10/11/2022 Waldenstrom macroglobulinemia 08/26/2022 Last Assessment & Plan: Followed by hematology History of CVA (cerebrovascu lar accident) without residual deficits 08/24/2022 Last Assessment & Plan: Atorvastatin. plavix 75 mg daily Severe aortic stenosis 08/12/2022 Last Assessment & Plan: Following with Cardiology. Due for a catheterization. If okay, likely for valve replacement. Iron deficiency anemia due to chronic blood loss 05/03/2022 Last Assessment & Plan: Images from the original note were not included. Following with Heme-Onc Getting iron infusions Latest Reference Range & Units 10/08/22 11:26 10/11/22 08:34 10/20/22 08:07 10/27/22 14:53 HGB 14.0 - 16.8 g/dL 7.2 (L) 7.3 (L) 8.3 (L) 8.8 (L) (L): Data is abnormally low Component Ref Range & Units 2 wk ago Iron 45 - 176 ug/dL 60 Iron Binding Capacity 250 - 425 ug/dL 337 Transferrin Saturation Percent 15 - 55 % 18 Resulting Agency Hyperparathyroidism 03/04/2022 Last Assessment & Plan: Latest Reference Range & Units 03/18/22 13:04 04/21/22 08:49 06/03/22 10:58 07/23/22 10:33 10/11/22 08:33 Calcium 8.4 - 10.2 mg/dL 9.0 9.4 9.2 8.9 9.0 Abdominal aortic aneurysm without rupture 03/15/ 2021 Last Assessment & Plan: Follows with vascular, due for another repair Thoracic aorta atherosclerosis 06/30/2020 Stenosis of left renal artery 10/30/2018 Aneurysm of left common iliac artery 10/30/2018 Hx of nonmelanoma skin cancer 09/06/2018 Overview: squamous cell carcinoma (L superior nasal sidewall 2018), basal cell carcinoma (L shoulder/upper back 2018, R shoulder 12/2019, L lateral proximal pretibial region 02/05) History of shingles 12/14/2016 History of AAA (abdominal aortic aneurysm) repai r 12/14/2016 DYSLIPIDEMIA, GOAL LDL BELOW 100 03/27/2009 Overview: Per Lipid Taxonomy. Last Assessment & Plan: Continue atorvastatin S/P Lumbar disc excision, fusion w/ Implants HTN, goal below 140/90 Last Assessment & Plan: BP at goal. -continue amlodipine, metoprolol documented as of this encounter (statuses as of 04/21/2023) Resolved Problems Problem Noted Date Diagnosed Date Resolved Date Anemia due to stage 3b chronic kidney disease 10/26/19 23 11/11/2022 Overview: Per CKD protocol COPD with acute exacerbation 08/26/2022 02/09/2023 Last Assessment & Plan: May or may not have COPD Unable to complete PFT's so far Has return with pulmonary next month is on LAMA LABA wheezing appreciated on lung exam No ICS currently No emphysematous changes noted on recent CT CHEST PYH: 40, quit in 1998 Chronic kidney disease, stage 4 (severe) 08/12/2022 11/11/2022 Recurrent cerebrovascular accidents (CVAs) 08/12/2022 08/24/2022 Chronic kidney disease, stage 3b 09/30/2020 11/11/2022 Overview: Per CKD protocol Benign hypertension with sta ge 3b chronic kidney disease 08/26/2020 11/11/2022 Last Assessment & Plan: Last creatinine 2.0. GFR 34. Baseline. 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 09/29/2018 11/30/2018 Basal cell carcinoma (BCC) of upper back 09/29/2018 11/30/2018 Alcohol ingestion, 1-4 drinks per day 02/27/2018 08/02/2018 Stage 3 chronic kidney disease 06/15/2017 07/29/2017 Benign hypertension with CKD (chronic kidney disease) stage III 06/15/2017 08/28/2020 Overview: Per CKD protocol Chronic gout involving toe without tophus 12/11/2015 12/14/2016 AAA (abdominal aortic aneurysm) 05/14/2015 12/14/2016 Edema 01/08/2014 12/14/2016 Multiple sites, insect bite, nonvenomous 01/08/2014 12/14/2016 Toxic effect of venom of bees 01/08/2014 12/14/2016 S/P repair of abdominal aort ic aneurysm using straight graft 07/09/2011 12/14/2016 Incisional hernia 12/25/2009 12/14/2016 ADVANCE DIRECTIVE INFORMATION 07/17/2009 06/15/2017 Overview: No, Advance Directive brochure given to patient. Acute posthemorrhagic anemia 01/14/2009 06/14/2011 Abdominal aortic aneurysm 12/27/2008 Benign neoplasm of colon 12/05/2008 Overview: adenomatous polyp--repeat 3 years Benign neoplasm of colon 08/03/2007 Overview: adenomatous; cecal ulcer; repeat colonoscopy in 1 month CONTUSION OF KNEE, LEFT 03/15/200605/20 Edema 03/15/2006 06/14/2011 Family history of other card iovascular diseases 07/28/2004 06/14/2011 Overview: ICD-10 update of inactive term ARTERIAL INSUFFICIENCY/ISCHE XOIMARA, LEFT LITTLE FINGER 12/29/2001 07/28/2004 Tobacco use disorder 12/29/2001 010 GOUT NOS 07/18/2001 12/11/2015 Hemorrhoids, external without complications 01/16/2001 01/05/2017 PLANTAR FIBROMATOSIS 01/16/2001 005 Varicose vein of leg 017 HYPERLIPIDEMIA NEC-NOS 03/27 Overview: Per Lipid Taxonomy. documented as of this encounter (statuses as of 04/21/2023) Immunizations Name Administration Dates Next Due COVID-19 mRNA, LNP-s, No Pre serve, 2-Dose Series (Moderna) 02/19/2021,06/19/2020,05/22/2020 Pneumococcal Conjugate Vacc, 13 Valent (Prevnar) 06/12/2015 Pneumococcal Polysaccharide PPV23 (Pneumovax) 06/10/2014 Seasonal Influenza, PF, 6 M & above, IM , (FluLaval or Fluzone) 12/29/2019,02/06/2019,02/27/2018 Seasonal Influenza, Quadriva lent Hd (Fluzone Hd) 01/10/2023,03/04/2022,01/15/2021 TD, Preservative Free 03/04/2022 TDAP (age 10 and older)(Boostrix) 12/14/2011 documented as of this encounter Social History Tobacco Use Types Packs/Day Years Used Date Smoking Tobacco: Former Cigarettes 1 35 Q uit: 2009 Cigars Smokeless Tobacco: Never Alcohol Use Standard Drinks/Week Comments Yes 3 (1 standard drink = 0.6 oz pur e alcohol) PHQ-2 Answer Date Recorded PHQ Adult Total Score 0 08/20/2021 Hunger Vital Sign Answer Date Recorded Worried About Running Out of Food in the Last Ye ar Never true 01/08/2019 Ran Out of Food in the Last Year Never true 01/08/2019 Sex and Gender Information Value Date Recorded Sex Assigned at Male 08/02/2018 7:29 AM EDT Gender Identity Male 08/02/2018 7:29 AM EDT Sexual Orientation Straight 08/02/2018 7: 29 AM EDT Job Start Date Occupation Industry Not on file Not on file Not on file documented as of this encounter Miscellaneous Notes * Telephone Encounter - Bianca Andino, RN - 04/21/2023 1:53 PM EST [facility] Telephonic Nurse Follow-Up Call [facility] Subprogram: Short-Term Management (less than 3 months) Follow Up Call Type: 24 hour follow up Acute issue requiring follow-up call: Other: follow up on black stools, hemoptysis?is patient holding Eliquis? have chest xray? Started taking Prednisone and Augmentin? Objective: 04/05/2023 3:47 PM 04/01/2023 9:42 AM 03/25/2023 10:35 AM 03/24/2023 3:35 PM 03/22/2023 2:30 AM VITALS ACROSS ENCOUNTERS BP 154/82 140/72 138/84 132/80 144/73 Pulse 70 64 64 71 71 Weight 89.3 kg 91.2 kg BMI 32.47 BMI 31.76 kg/m2 32.45 kg/m2 Lab Results Component Value Date BLOOD, URINE - [facility] Negative 02/22/2023 PROTEIN - [facility] 7.1 01/26/2023 PROTEIN, RANDOM URINE - [facility] 61 02/22/2023 PROTEIN, URINE - [facility] 30 (A) 02/22/2023 PROTEIN/ CREATININE RATIO, URINE - [facility] 452 (H) 02/22/2023 ESTERASE, URINE - [facility] Negative 02/22/2023 WBC AUTO - [facility] 14.87 (H) 04/20/2023 WBC, URINE - [facility] 0-2 02/22/2023 NITRITE, URINE - [facility] Negative 02/22/2023 Lab Results Component Value Date WBC AUTO - [facility] 14.87 (H) 04/20/2023 HGB - [facility] 10.3 (L) 04/20/2023 PLATELET AUTO - [facility] 271 04/20/2023 Lab Results Component Value Date SODIUM - [facility] 141 02/22/2023 POTASSIUM - [facility] 4.3 02/22/2023 CO2 - [facility] 28 02/22/2023 CREATININE - [facility] 2.5 (H) 02/22/2023 ESTIMATED GLOMERULAR FILTRATION RATE - [facility] 27 (L) 02/22/2023 ALBUMIN - [facility] 3.8 02/22/2023 AST - [facility] 18 01/26/2023 ALT - [facility] 12 01/26/2023 ALKALINE PHOSPHATASE - [facility] 112 01/26/2023 Lab Results Component Value Date LEFT VENTRICULAR EJECTION FRACTION 55 01/27/2023 Remote Patient Monitoring: NONE Oxygen Needs: NO CHANGE from baseline supplemental oxygen needs DME Needs: Nebulizer machine and supplies Medications: New medication(s) added: Augmentin and Prednisone Subjective: Condition Status: No change in symptoms Current Concerns: Called and spoke with patient and daughter. Patient had chest xray this morning, no results in EPIC yet. Patient reports stools are still black today and "he is coughing up bloody mucus", when asked how much blood? patient replied "not just streaks of blood, more like a nosebleed blood amount". Denies any vomiting of blood. Still SOB but no worse then yesterday. He did start taking Prednisone and Augmentin He is using Nebulizer around the clock. He is holding Eliquis as recommended. Daughter stated her father does have a hx of several GI bleeds. Informed patient and daughter he may have to go to the ED, patient wants to wait for chest xray results. Informed patient and daughter I will send update to YARA Melgoza for recommendations and call them back. Disposition: Routed to [facility] and/or [facility] at Home Care Team for further advice Future Visits Scheduled: Future Appointments-next 60 days Date/Time Provider Specialty Dept Phone 04/22/2023 10:00 AM Hannah Chair 10 Hem Onc Scenery Hematology Oncology [phone] 04/22/2023 1:15 PM Coordinator, Harinder Cristina [facility] [phone] 04/23/2023 1:15 PM [facility], Nurse [facility] [phone] 04/24/2023 12:00 PM [facility], Nurse [facility] [phone] 05/04/2023 11:00 AM Jenifer Linder RN [facility] [phone] 05/06/2023 2:30 PM Hannah, Chair 10 Hem Onc Scenery Hematology Oncology [phone] 05/06/2023 4:30 PM [place], Lab Scenery Laboratory [phone] 05/13/2023 4:30 PM [place], Lab Scenery Laboratory [phone] 05/20/2023 9:15 AM (Arrive by 9:00 AM) Michael Snyder MD Hematology Oncology [phone] 05/20/2023 9:45 AM Hannah, Chair 10 Hem Onc Scenery Hematology Oncology [phone] 06/02/2023 2:30 PM (Arrive by 2:15 PM) Ghanshyam Osorio PA-C Cardiology [phone] 06/03/2023 2:30 PM Hannah, Chair 10 Hem Onc Scenery Hematology Oncology [phone] 10/10/2023 9:00 AM (Arrive by 8:45 AM) Jairo Kingston MD Family Medicine [phone] 12/13/2023 3:00 PM (Arrive by 2:45 PM) Reggie Azevedo MD Nephrology [phone] 02/08/2024 11:30 AM [facility] Radiology [phone] 02/08/2024 12:15 PM Mikhail Suazo MD Vascular Surgery [phone] 03/28/2024 3:20 PM (Arrive by 3:05 PM) Shanika Fitzgerald DO Sleep Disorders [phone] Bianca Andino RN Rope Twisting Machine Operator [facility] documented in this encounter Plan of Treatment Upcoming Encounters Date Type Department Care Team (Late st Contact Info) Description 04/22/2023 10:00 AM EST Hem/Onc Treatment Hematology/Oncology Treatment, [place] [address] [place] [address] Hannah, Chair 10 Hem Onc Scenery [address] [place] [address] 04/22/2023 1:15 PM EST Scheduled Telephone [facility], [address] [place] [address] Coordinator, [facility] [address] [place], [place] [address] 04/23/2023 1:15 PM EST Scheduled Telephone [facility], [facility] [address] [place] [address] Region, Nurse [place] [address] [address] [place] [address] 04/24/2023 12:00 PM EST Scheduled Telephone [facility], [facility] [address] [place] [address] Region, Nurse [place] [address] [address] [place] [address] 05/04/2023 11:00 AM EST Home Visit [facility], [place] [address] [address] [place] [address] Jenifer Linder RN [address], [place] [address] 05/06/2023 2:30 PM EST Hem/Onc Treatment Hematology/Oncology Treatment, [place] [address] [place], [place] [address] Hannah, Chair 10 Hem Onc Scenery [address] [place], [place] [address] 05/06/2023 4:30 PM EST Laboratory Laboratory Scenery [facility] [address] [place], [place] [id number] Hannah Lab Scenery [address] [place], [place] [address] 05/13/2023 4:30 PM EST Laboratory Laboratory Scenery [facility] [address] [place], [place] [id number] Hannah, Lab Scenery [address] [place] [address] 05/20/2023 9:15 AM EST Office Visit Hematology/Oncology [facility] Hannah [place] [address] [place] [address] Michael Snyder MD [address] [place], [place] [address] 05/20/2023 9:45 AM EST Hem/Onc Treatment Hematology/Oncology Treatment, [place] 200 [facility] [address] [place], [place] [address] Hannah, Chair 10 Hem Onc [facility] [address] [facility] [address] [place] [address] 06/02/2023 2:30 PM EST Office Visit Cardiology, [facility] [address] [facility] [place] [address] Ghanshyam Osorio PA-C [address] [place] [address] 06/03/2023 2:30 PM EST Hem/Onc Treatment Hematology/Oncology Treatment, [place] 200 [facility], [place] [address] Hannah, Chair 10 Hem Onc [facility] 200 [facility] [place], [place] [address] 10/10/2023 9:00 AM EDT Office Visit [facility] [address] [place] [phone] Jairo Kingston MD [address] [place] [address] 12/13/2023 3:00 PM EDT Office Visit Nephrology, [facility] Hannah [address] [place], [place] [address] Reggie Azevedo MD [address] [place], [place] [address] 02/08/2024 11:30 AM EDT Appointment Radiology, [place] [address] [place] [address] 02/08/2024 12:15 PM EDT Office Visit [facility], [place] [address] [place] [address] Mikhail Suazo MD [address] [place] [address] 03/28/2024 3:20 PM EST Office Visit Sleep Disorders Ctr [facility] [address] [place] [phone] Shanika Fitzgerald DO [address] [place] [address] Scheduled Procedures Name Priority Associated Diagnoses Date/Ti me ESOPHAGOGASTRODUODENOSCOPY ( EGD), FLEXIBLE, TRANSORAL, DIAGNOSTIC Recall Abdominal pain COLONOSCOPY FLEXIBLE PROXIMAL DIAGNOSTIC Recall History of colon polyps Health Maintenance Due Date Last Done Comments Zoster Vaccines (1 of 2) 1998 AAA Monitoring 10/03/2021 10/03/2020, 01/17, 10/28/2014, Additional history exists Depression Screening 08/20/2022 08/20/2021 *COPD SEVERITY VERIFIED BY PFT 08/28/2022 Albumin/Creatinine Ratio 10/08/2022 10/08/2021 COVID-19 Vaccine ( season) 2022 02/19/2021, 06/19/2020, 05/22/2020 GFR 08/23/2023 02/22/2023, 01/16, 01/07/2023, Additional history exists O2 ASSESSMENT COMPLETED IN PAST YEAR FOR COPD 12/11/2023 12/10/2022 Nephrology Referral 02/23/2024 02/22/2023 PTH 02/23/2024 02/22/2023, 12/17, 06/03/2021, Additional history exists Phosphate 02/23/2024 02/22/2023, 11/17, 12/31/2021, Additional history exists Hgb 04/20/2024 04/20/2023, 03/18, 03/22/2023, Additional history exists COLONOSCOPY-EVERY 5 YRS AGES 18-100 01/02/2026 01/02/2021, 08/02/2017, 08/02/2017, Additional history exists DTaP,Tdap,and Td Vaccines (4 - Td or Tdap) 03/04/2032 03/04/2022, 12/14/2011, 06/11/2002 Pneumococcal Vaccine: 65+ Years Completed 06/12/2015, 06/10/2014 COLONOSCOPY-EVERY 3 YRS AGES 18-100 Discontinued 01/02/2021, 08/02/2017, 08/02/2017, Additional history exists Alpha-1 Antitrypsin Completed 01/07/2023 Influenza Vaccine (FLU shot) Completed 01/10/2023, 03/04/2022, 01/15/2021, Additional history exists GARDASIL-HPV IMMUNIZATION SERIES Aged Out No longer eligible based on patient's age to complete this topic Hepatitis B Aged Out No longer eligi ble based on patient's age to complete this topic MENINGOCOCCAL (MENACTRA/MENVEO) Aged Out No longer eligible based on patient's age to complete this topic documented as of this encounter Medical Devices Implanted Type Area Book Publisher Device Identifier Shelf Expiration Date Model / Serial / Lot Graft Hemasheild 20mm [id number] - [id number] Implanted:Qty: 1 on 01/13/2009 at [facility] N/A: Abdomen MICROVASIVE [id number] / / [id number] Stent Axios [id number] - [id number] Implanted:Qty: 1 on 12/10/2022 by Lacie England MD at [facility] : ENDOSCOPY [id number] 04/06/2023 [id number] / / [id number] documented as of this encounter Advance Directives Documents on File Type Date Recorded Patient Screen Printing Press Operator Expl anation Power of Cellular Equipment Installer 07/30/2022 POWER OF A TTORNEY Latest Code Status on File Code Status Date Activated Date Inactivated Comments Full Code 12/08/2022 3:37 PM 12/11/2022 5:37 PM This order reflects the patients wishes and were consensually agreed upon. Question Answer Comments Discussion of Advance Directives occurred with: Patient Code Status History Code Status Date Activated Date Inactivated Comments Full Code 01/14/2009 11:19 AM 01/11/2012 1:33 PM This order reflects the patients wishes and were consensually agreed upon. Full Code 01/13/2009 6:17 PM 01/14/2009 11:19 AM This order reflects the patients wishes and were consensually agreed upon. Care Teams Corner Block Cutter Relationship Specialty Start Date End Date Jairo Kingston MD [address] [place] [address] PCP - General 12/21/05 documented as of this encounter
--- OUTSIDE RECORDS SUMMARY | 2023-04-22 13:28 | External Medical Summary | Summary of Care ---
Author Name Unknown Organization [facility] Address [address] [place] [address] Phone [phone] Care Team Providers Care Key Maker Name Role Phone Jairo Kingston MD Primary Care Provider [phone]- [phone] Reason for Visit * Reason Onset Date Comments [facility]: Maintenance 04/21/2023 Encounter Details Date Type Department Care Team (Late st Contact Info) Description 04/21/2023 1:30 PM EST Scheduled Telephone [facility], [facility] [address] [place] [address] Coordinator, [facility] [address] [place] [address] Allergies Active Allergy Reactions Criticality Noted Date [...] 0.1 % Nasal Solution (Astelin) Administer 1 Orchard into nostril in the morning and 1 Orchard before bedtime. 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 documented as of this encounter (statuses as of 04/21/2023) Immunizations Name Administration Dates Next Due COVID-19 mRNA, LNP-s, No Pre serve, 2-Dose Series (Moderna) 02/19/2021,06/19/2020,05/22/2020 DT - Diptheria/Tetanus (PEDS) 06/11/2002 Pneumococcal Conjugate Vacc, 13 Valent (Prevnar) 06/12/2015 [...] encounter Miscellaneous Notes * Telephone Encounter - Romy Yanez RN - 04/21/2023 5:44 PM EST PC placed to pt-spoke with his and daughter. Advised him he shgould go to ED as per Tiffany Escoto. Daughter is requesting [facility] call [facility] Doctor. Advised daughter Salina I can route the message to him of pt going to [facility] . She reuqests that I ask GI doc to call her cell phone. I wuill add to this message -her cell numberis [phone] daughter Salina cell. Dorie CASTILLO doc call her. Romy Yanez RN [facility] Intake Triage Coordinator [phone] * Telephone Encounter - Bianca Andino RN - 04/21/2023 1:53 PM EST [facility] Telephonic Nurse Follow-Up Call [facility] Subprogram: Short-Term Management (less than 3 months) [...] and call them back. Disposition: Routed to [place] and/[facility] Care Team for further advice Future Visits Scheduled: Future Appointments-next 60 days Date/Time Provider Specialty Dept Phone 04/22/2023 10:00 AM Hannah, Chair 10 Hem Onc Scenery Hematology Oncology [phone] 04/22/2023 1:15 PM Coordinator, [facility] Shay [facility] [phone] 04/23/2023 1:15 PM Region, Nurse [facility] [phone] 04/24/2023 12:00 PM Region, Nurse [facility] [phone] 05/04/2023 11:00 AM Jenifer Linder RN [facility] [phone] 05/06/2023 2:30 PM Hannah, Chair 10 Hem Onc Scenery Hematology Oncology [phone] 05/06/2023 4:30 PM Hannah, Lab Scenery Laboratory [phone] 05/13/2023 4:30 PM Hannah, Lab Scenery Laboratory [phone] 05/20/2023 9:15 AM (Arrive by 9:00 AM) Michael Snyder MD Hematology Oncology [phone] 05/20/2023 9:45 AM Hannah, Chair 10 Hem Onc Scenery Hematology Oncology [phone] 06/02/2023 2:30 PM (Arrive by 2:15 PM) Ghanshyam Osorio PA-[facility] Card[facility] [phone] 06/03/2023 2:30 PM Hannah, Chair 10 Hem Onc Scenery Hematology Oncology [phone] 10/10/2023 9:00 AM (Arrive by 8:45 AM) Jairo Kingston MD Family Medicine [phone] 12/13/2023 3:00 PM (Arrive by 2:45 PM) Reggie Azevedo MD Nephrology [phone] 02/08/2024 11:30 AM CT1 [facility] Radiology [phone] 02/08/2024 12:15 PM Mikhail Suazo MD Vascular Surgery [phone] 03/28/2024 3:20 PM (Arrive by 3:05 PM) Shanika Fitzgerald Mihaela, DO Sleep Disorders [phone] Bianca Andino finance business partnerFoil Spinner [facility] documented in this encounter Plan of Treatment Upcoming Encounters Date Type Department Care Team (Late st Contact Info) Description 04/22/2023 10:00 AM EST Hem/Onc Treatment Hematology/Oncology Treatment, [place] [address] [place] [address] Park, Chair 10 Hem Onc Scenery [address] [place] [address] 04/22/2023 1:15 PM EST Scheduled Telephone [facility], [address] [place] [address] Coordinator, [address] [place] [address] 04/23/2023 1:15 PM EST Scheduled Telephone [facility], [address] [place] [address] [facility], Nurse [address] [place] [address] 04/24/2023 12:00 PM EST Scheduled Telephone [facility], [facility] [address] [place] [place] [address] [facility], Nurse [address] [place] [address] 05/04/2023 11:00 AM EST Home Visit [facility], [facility] [address] [place] [address] Jenifer Linder, RN 132 [facility] [place] [address] 05/06/2023 2:30 PM EST Hem/Onc Treatment Hematology/Oncology Treatment, [place] [address] [place] [address] Hannah, Chair 10 Hem Onc Scenery [address] [place] [address] 05/06/2023 4:30 PM EST Laboratory Laboratory [facility] [place] [address] [place], [place] [phone] Park, Lab Scenery [address] [place] [address] 05/13/2023 4:30 PM EST Laboratory Laboratory [facility] [place] [address] [place], [place] [phone] Hannah, Lab Scenery [address] [place], [place] [address] 05/20/2023 9:15 AM EST Office Visit Hematology/Oncology [facility] [address] [place], [place] [address] Michael Snyder MD [address] [place] [address] 05/20/2023 9:45 AM EST Hem/Onc Treatment Hematology/Oncology Treatment, [place] [address] [place] [address] Hannah, Chair 10 Hem Onc Scenery [address] [place] [address] 06/02/2023 2:30 PM EST Office Visit Cardiology, [facility] [address] [place] [address] Ghanshyam Osorio PA-C [address] [place] [address] 06/03/2023 2:30 PM EST Hem/Onc Treatment Hematology/Oncology Treatment, [place] [address] [place] [address] Hannah, Chair 10 Hem Onc Scenery [address] [place] [address] [place], [place] [address] 10/10/2023 9:00 AM EDT Office Visit [facility] [address] [place] [address] Jairo Kingston MD [address] [place] [address] 12/13/2023 3:00 PM EDT Office Visit Nephrology, [facility] 200 [facility] [place] [address] Reggie Azevedo MD [address] [facility] [place] [address] 02/08/2024 11:30 AM EDT Appointment Radiology, [place] [address] [place] [address] 02/08/2024 12:15 PM EDT Office Visit Vascular Surg [facility], [place] [address] [place], [place] [phone] Mikhail Suazo MD [address] [place], [place] [address] 03/28/2024 3:20 PM EST Office Visit [facility] [address] [phone] Shanika Fitzgerald DO [address] [place] [address] Scheduled Procedures Name Priority Associated Diagnoses Date/Ti [...] this encounter Medical Devices Implanted Type Area Addiction Psychiatrist Device Identifier Shelf Expiration Date Model / Serial / Lot Graft Hemasheild 20mm [id number] - [id number] Implanted:Qty: 1 on 01/13/2009 at [place] [facility] N/A: Abdomen MICROVASIVE [id number] / / [id number] Stent Axios [id number] - [id number] Implanted:Qty: 1 on 12/10/2022 by Lacie England MD at OR [facility] [employer] : ENDOSCOPY [id number] 04/06/2023 [id number] / / [id number] documented as of this encounter Advance Directives Documents on File Type Date Recorded Patient Director Of Speech Pathology Expl anation Power of Senior Safety Management Consultant 07/30/2022 POWER OF A TTORNEY Latest Code [...] and were consensually agreed upon. Care Teams Key Maker Relationship Specialty Start Date End Date Jairo Kingston MD [address] [place] [address] PCP - General 12/21/05 documented as of this encounter
--- OUTSIDE RECORDS SUMMARY | 2023-04-22 13:28 | External Medical Summary | Summary of Care ---
Author Name Unknown Organization [facility] Address [address] [place] [address] Phone [phone] Care Team Providers Care Bus Steward Name Role Phone Jaior Kingston MD Primary Care Provider [phone]- [phone] Reason for Visit * Reason Onset Date Comments [facility]: Acute 04/20/2023 Encounter Details Date Type Department Care Team (Late st Contact Info) Description 04/20/2023 Telephone [facility], [facility] [address] [facility] [place] [address] [facility], Nurse [facility] [address] [facility] [place] [address] [facility]: Acute Allergies Active Allergy Reactions Criticality Noted Date Comments Pavan Inhibitors Other (Please comment) 0 Hyperkalemia documented as of this encounter (statuses as of 04/20/2023) Medications Medication Sig Dispensed Refills Start Date End Date Status oxygen GAS Use 3 L/min(Oxygen) as directed at bedtime. Use 2-3 l/min continuously to keep pulse ox above 90% 0 Active [facility] D3 50 MCG (1999) Oral Capsule (Cholecalciferol)Tasha cations:Vitamin D deficiency TAKE 1 CAPSULE BY MOUTH EVERY DAY 90 Cap 1 02/12/2020 Active Docusate Sodium 100 MG Oral Capsule (Colace) Take 1 Capsule by mouth 2 times a day as needed for Constipation. 60 Capsule 5 08/26/2022 Active Fluticasone Propionate 50 MCG/ACT Nasal Suspension (Flonase) INSTILL 2 SPRAYS INTO EACH NOSTRIL EVERY DAY 48 g 3 08/17/2022 4 Active Allopurinol 300 MG Oral Tablet (Zyloprim)Indications :Gout TAKE ONE-HALF TABLET BY MOUTH EVERY DAY 45 Tablet 2 08/12/2022 4 Active Atorvastatin Calcium 80 MG Oral Tablet (Lipitor) TAKE ONE TABLET BY MOUTH EVERY DAY 90 Tablet 3 04/18/2022 4 Active Pantoprazole Sodium 40 MG Oral Tablet Delayed Release (Protonix) Take 1 Tablet by mouth in the morning and 1 Tablet before bedtime. 90 Tablet 3 11/09/2022 Active Sucralfate 1 GM/10ML Oral Suspension (Carafate) [...] 0 Active Ascorbic Acid 250 MG Oral TabletIndications:Iro n deficiency anemia, unspecified iron deficiency anemia type Take 0.5 Tablets by mouth daily at noon. 90 Tablet 3 12/14/2022 Active Ferrous Sulfate 325 (65 Fe) MG Oral Tablet (Feosol)Indications:I erin deficiency anemia, unspecified iron deficiency anemia type Take 1 Tablet by mouth daily at noon. 90 Tablet 3 12/14/2022 Active Albuterol Sulfate HFA 108 (90 Base) MCG/ACT Inhalation Aerosol Solution Inhale 2 Puffs by mouth every 4 hours as needed for Wheezing. 54 g 6 01/06/2023 Active Apixaban 2.5 MG Oral Tablet (Eliquis)Indications: Recurrent cerebrovascular accidents (CVAs) (HCC) Take 1 Tablet by mouth in the morning and 1 Tablet before bedtime. 180 Tablet 1 01/10/2023 Active Azelastine HCl 0.1 % Nasal Solution (Astelin) Administer 1 [place] into nostril in the morning and 1 [place] before bedtime. 30 mL 1 01/11/2023 Active Furosemide 20 MG Oral Tablet (Lasix) TAKE 1 TABLET BY MOUTH twice DAILY 90 Tablet 3 01/18/2023 Active Ipratropium-Albuterol 0.5-2.5 (3) MG/3ML Inhalation Solution (Duoneb) Inhale 3 mL by mouth every 6 hours as needed (sob). 360 mL 5 01/18/2023 Active Octreotide Acetate 10 MG Intramuscular Kit (SandoSTATIN LAR [place]) Inject 10 mg into a large muscle every month for 6 doses. 6 Kit 0 01/24/2023 Active Ezetimibe 10 MG Oral Tablet (Zetia)Indications:Dy slipidemia, goal LDL below 70 TAKE ONE TABLET BY MOUTH EVERY MORNING 90 Tablet 3 02/04/2023 Active Metoprolol Tartrate 25 MG Oral Tablet (Lopressor) Take 1 Tablet by mouth in the morning and 1 Tablet before bedtime. 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 COPD, group C, by GOLD 2017 classification 12/27 Overview: Per COPD GOLD Classification Hypertensive heart and chron ic kidney disease with diastolic congestive heart failure 12/14/2022 History of biliary stent insertion 12/08/2022 GI bleed 12/08/2022 Benign hypertensive kidney disease, stage IV Last Assessment & Plan: Norvasc, lopressor History of supraventricular tachycardia 11/12/19 Idiopathic chronic gout of foot without tophus 0 11/11/2022 Last Assessment & Plan: 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 No new attacks GINNY on CPAP 11/11/2022 [...] 8.9 9.0 Abdominal aortic aneurysm without rupture 2020 Last Assessment & Plan: Follows with vascular, [...] as of this encounter (statuses as of 04/20/2023) Resolved Problems Problem Noted Date Diagnosed Date [...] as of this encounter (statuses as of 04/20/2023) Immunizations Name Administration Dates Next Due COVID-19 [...] as of this encounter Miscellaneous Notes * Addendum Note - Tiffany Escoto CRNP - 04/20/2023 1:56 PM ESTAddended by: TIFFANY ESCOTO on: 04/20/2023 01:56 PM Modules accepted: Orders * Telephone Encounter - Tiffany Escoto CRNP - 04/20/2023 1:42 PM EST Called and spoke with pt and dgt. Noticed dark sticky stools about 2 days ago. H/o GI bleeds. Last hgb 04/05 was 11.3. Feels fatigued. Does not feel he needs or wants to go to ED. He reports he generally wears oxygen continuously and he will drop low 80s without it, this is not new. Feels fine otherwise. Stat labs ordered, [facility]. Hold eliquis until we getlabs. TATI ackerman * Telephone Encounter - Denia Ferraro RN - 04/20/2023 10:32 AM EST [facility] parking enforcement officer Acute Call Date: 04/20/2023 Time: 10:33 AM Name: Mikhail Fung : 1950 Caller: [place] Relationship to Daughter No chief complaint on file. HPI: Mikhail Fung is a 72 year old male that his daughter is calling [facility] Intake to report dark stools. Patient on speaker and answered all questions. Nursing Assessment: Patient with dark stools Described as "blackish" They have been getting darker last few days Stools formed and slightly "sticky" Tired and feels "crappy" Slight increase sob with oxygen on Denies abdomen pain/cramping no blood in stool noted, no n/v/d. BP 118/69 SPO2 81% on room air. Went up to 90s when he put on oxygen. Patient on Eliquis 2.5 mg 2 x day and Ferrous Sulfate 325 mg daily Has IV Venofer scheduled for 04/22/22 Patient's chief complaint for this call: Other, describe Dark stools Pain Denies pain Baseline Assessment Able to performing ADLs at baseline (walking, daily tasks, etc.): Yes Chief Complaint is related to a chronic condition: Yes Chronic Condition: H/O dark stools Chief Complaint is a change in baseline: Yes, Stools dark Patient prescribed oxygen? Yes, 3L/min Patient has been ordered DME equipment (assistive devices, respiratory equipment, etc.): Yes Describe DME devices: Oxygen, cpap, nebulizer Patient is using DME device as directed: Yes Medication Reconciliation: (See medication list) Received flu shot this season: Yes Taking medication as ordered: Yes Medications ordered/taking to treat reason for call: No Heart failure symptoms: No COPD exacerbation symptoms: No Reinforcement Education: Take all medications as ordered Drink fluids to stay hydrated Nebulizer treatment as needed Oxygen as directed Treatment/Plan: (need to report) Level of call: Non-Acute Recommended treatment plan: PC Scheduled Clinical advice given over the phone Routing to care team to review and make recommendations if warranted. Call back instructions provided to patient. Denia Ferraro. [facility] parking enforcement officer [phone];m documented in this encounter Plan of Treatment Upcoming Encounters Date Type Department Care Team (Late st Contact Info) Description 04/21/2023 1:30 PM EST Scheduled Telephone [facility], [facility] [address] [address] Coordinator, [facility] [address] [place] [address] 04/22/2023 2:30 PM EST Hem/Onc Treatment Hematology/Oncology Treatment, [place] [address] [place] [address] Hannah, Chair [address] [facility] [address] 05/04/2023 11:00 AM EST [facility] Visit [facility] [place], [facility] [address] [address] Jenifer Linder RN [address] [place] [address] 05/06/2023 2:30 PM EST Hem/Onc Treatment Hematology/Oncology Treatment, [place] [address] [place] [address] Hannah, Chair 10 Hem Onc Scenery [address] [place] [address] 05/06/2023 4:30 PM EST Laboratory Laboratory [facility] [address] [place], [place] [phone] Park, Lab Scenery [address] [place] [address] 05/13/2023 4:30 PM EST [facility] [place] [address] [place] [phone] Park, Lab Scenery [address] [place] [address] 05/20/2023 9:15 AM EST Office Visit Hematology/Oncology [facility] [place] [address] [place], [place] [address] Michael Snyder MD [address] [place] [address] 05/20/2023 9:45 AM EST Hem/Onc Treatment Hematology/Oncology Treatment, [place] [address] [facility], [place] [address] Hannah, Chair 10 Hem Onc Scenery [address] [place], [place] [address] 06/02/2023 2:30 PM EST Office Visit Cardiology, [facility] [address] [place] [address] Ghanshyam Osorio PA-C [address] [place] [address] 06/03/2023 2:30 PM EST Hem/Onc Treatment Hematology/Oncology Treatment, [place] [address] [place] [address] Hannah, Chair 10 Hem Onc Scenery [address] [place] [address] 10/10/2023 9:00 AM EDT Office Visit [facility] [address] [place] [address] Jairo Kingston MD [address] [place] [address] 12/13/2023 3:00 PM EDT Office Visit Nephrology, [facility] [address] [facility] [place], [place] [address] Reggie Azevedo MD [address] [facility] [place], [place] [address] 02/08/2024 11:30 AM EDT Appointment Radiology, [place] [address] [place] [phone] 02/08/2024 12:15 PM EDT Office Visit Vascular Surg [facility], [place] [address] [place] [address] Mikhail Suazo MD [address] [place] [address] 03/28/2024 3:20 PM EST Office Visit [facility] [place] [phone] Shanika Fitzgerald DO [facility] [place] [address] Scheduled Orders Name Type Priority Associated Diagnoses Orde r Schedule CBC WITH WBC DIFFERENTIAL Lab STAT Dark stools Expected: 04/20/2023 (Approximate), Expires: 04/20/2024 Scheduled Procedures Name Priority Associated Diagnoses Date/Ti [...] 02/22/2023, 11/17, 12/31/2021, Additional history exists Hgb 04/05/2024 04/05/2023, 12/08/2022, 02/22/2023, Additional history exists COLONOSCOPY-EVERY 5 YRS AGES [...] this encounter Medical Devices Implanted Type Area Voice Data Communications Engineer Device Identifier Shelf Expiration Date Model / Serial / Lot Graft Hemasheild 20mm [id number] - [id number] Implanted:Qty: 1 on 01/13/2009 [place] [facility] [place]A: Abdomen MICROVASIVE [id number] / / [id number] Stent Axios [id number] - [id number] Implanted:Qty: 1 on 12/10/2022 by Lacie England MD at OR [facility] [employer] : ENDOSCOPY [id number] 04/06/2023 [id number] / / [id number] documented as of this encounter Visit Diagnoses Diagnosis Dark stools- Primary Nonspecific abnormal finding in stool contents documented in this encounter Advance Directives Documents on File Type Date Recorded Patient Conversion Man Expl anation Power of Equipment Detailer 07/30/2022 POWER OF A TTORNEY Latest Code [...] and were consensually agreed upon. Care Teams Bus Steward Relationship Specialty Start Date End Date Jairo Kingston MD [address] [place] [address] PCP - General 12/21/05 documented as of this encounter
--- OUTSIDE RECORDS SUMMARY | 2023-04-22 13:28 | External Medical Summary | Summary of Care ---
Author Name Unknown Organization [facility] Address [address] [place] [address] Phone [phone] Care Team Providers Care Bandoleer Straightener Stamper Name Role Phone Lalo Carias MD Primary Care Provider [phone]- [phone] Reason for Visit * Reason Onset Date Comments Medication Refill 04/20/2023 Encounter Details Date Type Department Care Team (Late st Contact Info) Description 04/20/2023 Refill [facility], [facility] [address] [facility] [place] [address] [facility], Nurse [facility] [address] [facility] [place] [address] Allergies Active Allergy Reactions Criticality Noted Date Comments Pavan Inhibitors Other (Please comment) 0 Hyperkalemia documented as of this encounter (statuses as of 04/20/2023) Medications Medication Sig Dispensed Refills Start Date End Date Status oxygen GAS Use 3 L/min(Oxygen) as directed at bedtime. Use 2-3 l/min continuously to keep pulse ox above 90% 0 Active [facility] D3 50 MCG (1999 UT) Oral Capsule (Cholecalciferol)Ind ications:Vitamin D deficiency TAKE 1 CAPSULE BY MOUTH EVERY DAY 90 Cap 1 0 Active Fluticasone Propionate 50 MCG/ACT Nasal Suspension (Flonase) INSTILL 2 SPRAYS INTO EACH NOSTRIL EVERY DAY 48 g 3 3 08/17/19 24 Active Allopurinol 300 MG Oral Tablet (Zyloprim)Indication s:Gout TAKE ONE-HALF TABLET BY MOUTH EVERY DAY 45 Tablet 2 3 08/12/19 24 Active Atorvastatin Calcium 80 MG Oral Tablet (Lipitor) TAKE ONE TABLET BY MOUTH EVERY DAY 90 Tablet 3 3 05/12/19 24 Active Sucralfate 1 GM/10ML Oral Suspension (Carafate) Take 10 mL by mouth in the morning and 10 mL at noon and 10 mL before bedtime. 420 mL 0 3 Active Potassium Chloride Marla ER 10 MEQ Oral Tablet Extended Release Take 1 Tablet by mouth once a day on Tuesday, Tuesday, and Tuesday only. 45 Tablet 3 3 Active CPAP every night at bedtime. 0 Active Ascorbic Acid 250 MG Oral TabletIndications:Ir on deficiency anemia, unspecified iron deficiency anemia type Take 0.5 Tablets by mouth daily at noon. 90 Tablet 3 3 Active Ferrous Sulfate 325 (65 Fe) MG Oral Tablet (Feosol)Indications: Iron deficiency anemia, unspecified iron deficiency anemia type Take 1 Tablet by mouth daily at noon. 90 Tablet 3 3 Active Albuterol Sulfate HFA 108 (90 Base) MCG/ACT Inhalation Aerosol Solution Inhale 2 Puffs by mouth every 4 hours as needed for Wheezing. 54 g 6 3 Active Apixaban 2.5 MG Oral Tablet (Eliquis)Indications :Recurrent cerebrovascular accidents (CVAs) (HCC) Take 1 Tablet by mouth in the morning and 1 Tablet before bedtime. 180 Tablet 1 3 Active Azelastine HCl 0.1 % Nasal Solution (Astelin) Administer 1 [place] into nostril in the morning and 1 [place] before bedtime. 30 mL 1 3 Active Furosemide 20 MG Oral Tablet (Lasix) TAKE 1 TABLET BY MOUTH twice DAILY 90 Tablet 3 3 Active Ipratropium-Albutero l 0.5-2.5 (3) MG/3ML Inhalation Solution (Duoneb) Inhale 3 mL by mouth every 6 hours as needed (sob). 360 mL 5 3 Active Octreotide Acetate 10 MG Intramuscular Kit (SandoSTATIN [place]AR [place]) Inject 10 mg into a large muscle every month for 6 doses. 6 Kit 0 3 Active Ezetimibe 10 MG Oral Tablet (Zetia)Indications:D yslipidemia, goal LDL below 70 TAKE ONE TABLET BY MOUTH EVERY MORNING 90 Tablet 3 3 02/04/20 24 Active Metoprolol Tartrate 25 MG Oral Tablet (Lopressor) Take 1 Tablet by mouth in the morning and 1 Tablet before bedtime. 100 Tablet 3 3 Active Trelegy Ellipta 100-62.5-25 MCG/ACT Aerosol Powder Breath Activated (Fluticasone-Umeclid inium-Vilanterol) Inhale one puff daily 180 Each 1 3 Active Docusate Sodium 100 MG Oral Capsule (Colace) Take 1 Capsule by mouth 2 times a day as needed for Constipation. 180 Capsule 3 4 Active Pantoprazole Sodium 40 MG Oral Tablet Delayed Release (Protonix) Take 1 Tablet by mouth in the morning and 1 Tablet before bedtime. 180 Tablet 3 4 Active Docusate Sodium 100 MG Oral Capsule (Colace) Take 1 Capsule by mouth 2 times a day as needed for Constipation. 60 Capsule 5 3 04/20/19 24 Discontinu ed(Refill) Pantoprazole Sodium 40 MG Oral Tablet Delayed Release (Protonix) Take 1 Tablet by mouth in the morning and 1 Tablet before bedtime. 90 Tablet 3 3 04/20/19 24 Discontinu ed(Refill) documented as of this encounter (statuses as [...] Plan: cristina Gonsalves History of supraventricular tachycardia 11/12/19 Idiopathic chronic gout of foot without tophus 0 11/11/2022 Last Assessment & Plan: Allopurinol terminal gauger No new attacks GINNY on CPAP 11/11/2022 [...] encounter Miscellaneous Notes * Telephone Encounter - Lalo Carias MD - 04/20/2023 4:07 PM ESTSigned Prescriptions: Disp Refills Docusate Sodium 100 MG Oral Capsule (Colac*180 Ca*3 Sig: Take 1 Capsule by mouth 2 times a day as needed for Constipation.Authorizing Provider: LALO CARIAS Pantoprazole Sodium 40 MG Oral Tablet Stephanie*180 Ta*3 Sig: Take 1 Tablet by mouth in the morning and 1 Tablet before bedtime.Authorizing Provider: LALO CARIAS * Telephone Encounter - Denia Ferraro RN - 04/20/2023 10:48 AM EST [place], patient's daughter requesting refills on 2 medications. Pantoprazole and Docusate Sodium Requested [facility] [place] Routed to PCP Denia Ferraro. RN [facility] electronics production supervisor [phone] documented in this encounter Plan of Treatment Upcoming Encounters Date Type Department Care Team (Late st Contact Info) Description 04/21/2023 1:30 PM EST Scheduled Telephone [facility], [facility] [address] [place] [address] Coordinator, [facility] [address] [place] [address] 04/22/2023 2:30 PM EST Hem/Onc Treatment Hematology/Oncology [facility], [place] [facility] [address] [place], Chair 7 Hem Onc [facility] [address] 05/04/2023 11:00 AM EST Home Visit [facility], [facility] [address] [facility] [place] [address] Jenifer Linder, RN 132 [facility] [place] [address] 05/06/2023 2:30 PM EST Hem/Onc Treatment Hematology/Oncology Treatment, [place] [facility], [place] [address] Hannah, Chair 10 Hem Onc Scen[address] [place], [place] [address] 05/06/2023 4:30 PM EST Laboratory Laboratory [facility] [address] [place], [place] [phone] Park, Lab Scenery [address] [place], [place] [address] 05/13/2023 4:30 PM EST Laboratory Laboratory [facility] [address] [place], [place] [phone] Park, Lab Scenery [address] [place], [place] [address] 05/20/2023 9:15 AM EST Office Visit Hematology/Oncology [facility] [address] [place], [place] [address] Michael Snyder MD [address] [place], [place] [address] 05/20/2023 9:45 AM EST Hem/Onc Treatment Hematology/Oncology Treatment, [place] [address] [facility], [place] [address] Hannah, Chair 10 Hem Onc Scenery [address] [place], [place] [address] 06/02/2023 2:30 PM EST Office Visit Cardiology, [facility] [address] [place] [address] Ghanshyam Osorio PA-C [address] [address] 06/03/2023 2:30 PM EST Hem/Onc Treatment Hematology/Oncology Treatment, [place] [facility] [address] Hannah, Chair 10 Hem Onc [facility] 200 [facility] [place] [address] 10/10/2023 9:00 AM EDT Office Visit [facility] [address] [place] [phone] Lalo Carias MD [address] [place] [address] 12/13/2023 3:00 PM EDT Office Visit [facility] 200 [facility] [address] Reggie Azevedo MD 200 [facility] [place] [address] 02/08/2024 11:30 AM EDT Appointment Radiology, [place] [address] [place] [address] 02/08/2024 12:15 PM EDT Office Visit [facility], [place] [address] [place] [address] Mikhail Suazo MD [address] [place] [address] 03/28/2024 3:20 PM EST Office Visit Sleep Disorders Ctr Yasmeen Solorzano, [place] [address] [place] [phone] Shanika Fitzgerald DO [address] [place] [place] [address] Scheduled Procedures Name Priority Associated Diagnoses Date/Ti [...] 12/31/2021, Additional history exists Hgb 04/05/2024 04/05/2023, 1208/2022, 02/22/2023, Additional history exists COLONOSCOPY-EVERY 5 YRS [...] this encounter Medical Devices Implanted Type Area Linux Admin Engineer Device Identifier Shelf Expiration Date Model / Serial / Lot Graft Hemasheild 20mm [id number] - [id number] Implanted:Qty: 1 on 01/13/2009 at OR [facility] N/A: Abdomen MICROVASIVE [id number] / / [id number] Stent Axios [id number] - [id number] Implanted:Qty: 1 on 12/10/2022 by Lacie England MD at OR [facility] : ENDOSCOPY [id number] 04/06/2023 [id number] / / [id number] documented as of this encounter Advance Directives Documents on File Type Date Recorded Patient Cafe Worker Expl anation Power of Stacker Straightener 07/30/2022 POWER OF A TTORNEY Latest Code [...] and were consensually agreed upon. Care Teams Bandoleer Straightener Stamper Relationship Specialty Start Date End Date Lalo Carias MD [address] [place] [address] PCP - General 12/21/05 documented as of this encounter
--- OUTSIDE RECORDS SUMMARY | 2023-04-22 13:28 | External Medical Summary | Summary of Care ---
Author Name Unknown Organization [facility] Address [address] [place] [address] Phone [phone] Care Team Providers Care Flight Operations Coordinator Name Role Phone Jairo Kingston MD Primary Care Provider +1- [phone] Reason for Visit * Reason Onset Date Comments [facility]: Maintenance 04/21/2023 Encounter Details Date Type Department Care Team (Late st Contact Info) Description 04/21/2023 1:30 PM EST Scheduled Telephone [facility], [facility] [address] [place] [address] Coordinator, [facility] [address] [place] [address] Allergies Active Allergy Reactions Criticality Noted Date [...] 0.1 % Nasal Solution (Astelin) Administer 1 [place] into nostril in the morning and 1 [place] before bedtime. 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 Daughter is requesting [facility] call [facility] Doctor. Advised daughter [place] I can route the message to him of pt going to [facility] . She reuqests that I ask GI doc to call her cell phone. I wuill add to this message -her cell numberis [phone] daughter [place] cell. Dorie CASTILLO doc call her. Romy Yanez RN [facility] Intake Triage Coordinator [phone] * Telephone Encounter - Bianca Andino RN - 04/21/2023 1:53 PM EST [facility] Telephonic Nurse Follow-Up Call [facility] Subprogram: Short-Term Management (less than 3 [...] and call them back. Disposition: Routed to [facility] and/or ising at Home Care Team for further advice Future Visits Scheduled: Future Appointments-next 60 days Date/Time Provider Specialty Dept Phone 04/22/2023 10:00 AM Hannah, Chair 10 Hem Onc Scenery Hematology Oncology [phone] 04/22/2023 1:15 PM Coordinator, [facility] Shay [facility] [phone] 04/23/2023 1:15 PM Region, [facility] [phone] 04/24/2023 12:00 PM Region, [facility] [phone] 05/04/2023 11:00 AM Jenifer Linder RN [facility] [phone] 05/06/2023 2:30 PM Hannah, Chair 10 Hem Onc Scenery Hematology Oncology [phone] 05/06/2023 4:30 PM Hannah, Lab Scenery Laboratory [phone] 05/13/2023 4:30 PM Hannah, Lab Scenery Laboratory [phone] 05/20/2023 9:15 AM (Arrive by 9:00 AM) Michael Snyder MD Hematology Oncology [phone] 05/20/2023 9:45 AM Hannah, Chair 10 Hem Onc Scenery Hematology Oncology [phone] 06/02/2023 2:30 PM (Arrive by 2:15 PM) Ghanshyam Osorio PA-[facility] [phone] 06/03/2023 2:30 PM Hannah, Chair 10 Hem Onc Scenery Hematology Oncology [phone] 10/10/2023 9:00 AM (Arrive by 8:45 AM) Jairo Kingston MD Family Medicine [phone] 12/13/2023 3:00 PM (Arrive by 2:45 PM) Reggie Azevedo MD Nephrology [phone] 02/08/2024 11:30 AM [address] Radiology [phone] 02/08/2024 12:15 PM Mikhail Suazo MD Vascular Surgery [phone] 03/28/2024 3:20 PM (Arrive by 3:05 PM) Shanika Fitzgerald Mihaela, DO Sleep Disorders [phone] Bianca Andino product marketing coordinatorOffbearer Sewer Pipe [facility] documented in this encounter Plan of Treatment Upcoming Encounters Date Type Department Care Team (Late st Contact Info) Description 04/22/2023 10:00 AM EST Hem/Onc Treatment Hematology/Oncology Treatment, [place] [address] [place] [address] Park, Chair 10 Hem Onc Scenery [address] [place] [address] 04/22/2023 1:15 PM EST Scheduled Telephone [facility], [address] [place] [address] Coordinator, [address] [place] [address] 04/23/2023 1:15 PM EST Scheduled Telephone [facility], [address] [place] [address] [facility], Nurse [address] [place] [address] 04/24/2023 12:00 PM EST Scheduled Telephone [facility], [facility] [address] [place] [address] [facility], Nurse [address] [place] [address] 05/04/2023 11:00 AM EST Home Visit [facility], [facility] [address] [place] [address] Jenifer Linder, RN 132 [facility] [place] [address] 05/06/2023 2:30 PM EST Hem/Onc Treatment Hematology/Oncology Treatment, [place] 200 [place] [address] Hannah, Chair 10 Hem Onc Scenery [address] [place] [address] 05/06/2023 4:30 PM EST Laboratory Laboratory [facility] [place] [address] [place], [place] [phone] Park, Lab Scenery [address] [place] [address] 05/13/2023 4:30 PM EST Laboratory Laboratory [facility] [place] [address] [place], [place] [phone] Hannah, Lab Scenery [address] [place], [place] [address] 05/20/2023 9:15 AM EST Office Visit Hematology/Oncology [facility] [address] [place], [place] [address] Michael Snyder MD [address] [place] [address] 05/20/2023 9:45 AM EST Hem/Onc Treatment Hematology/Oncology Treatment, [place] 200 [place] [address] Hannah, Chair 10 Hem Onc Scenery [address] [place] [address] 06/02/2023 2:30 PM EST Office Visit Cardiology, [facility] [address] [place] [address] Ghanshyam Osorio PA-C [address] [place] [address] 06/03/2023 2:30 PM EST Hem/Onc Treatment Hematology/Oncology Treatment, [place] 200 [place] [address] Hannah, Chair 10 Hem Onc Scenery [address] [place] [address] [place], [place] [address] 10/10/2023 9:00 AM EDT Office Visit [facility] [address] [place] [phone] Jairo Kingston MD [address] [place] [address] 12/13/2023 3:00 PM EDT Office Visit Nephrology, [facility] 200 [facility] [place] [address] Reggie Azevedo MD 200 [place] [address] 02/08/2024 11:30 AM EDT Appointment Radiology, [place] [address] [place] [address] 02/08/2024 12:15 PM EDT Office Visit Vascular Surg [facility], [place] [address] [place], [place] [phone] Mikhail Suazo MD [address] [place], [place] [address] 03/28/2024 3:20 PM EST Office Visit [facility] Disorders Ctr [facility] [address] [place] [phone] Shanika Fitzgerald DO [address] [facility] [place] [address] Scheduled Procedures Name Priority Associated Diagnoses Date/Ti [...] this encounter Medical Devices Implanted Type Area Hide Spreader Device Identifier Shelf Expiration Date Model / Serial / Lot Graft Hemasheild 20mm [id number] - [id number] Implanted:Qty: 1 on 01/13/2009 at [place] [facility] N/A: Abdomen MICROVASIVE [id number] / / [id number] Stent Axios [id number] - [id number] Implanted:Qty: 1 on 12/10/2022 by Lacie England MD at OR [facility] : ENDOSCOPY [id number] 04/06/2023 [id number] / / [id number] documented as of this encounter Advance Directives Documents on File Type Date Recorded Patient Lumber Tailer Expl anation Power of Boat Master 07/30/2022 POWER OF A TTORNEY Latest Code [...] and were consensually agreed upon. Care Teams Flight Operations Coordinator Relationship Specialty Start Date End Date Jairo Kingston MD [address] [place] [address] PCP - General 12/21/05 documented as of this encounter
--- OUTSIDE RECORDS SUMMARY | 2023-04-22 13:28 | External Medical Summary | Summary of Care ---
Author Name Unknown Organization [facility] Address [address] [place] [place] [address] Phone [phone] Care Team Providers Care Independent Marketing Consultant Name Role Phone Jairo Kingston MD Primary Care Provider +1- [phone] Reason for Visit * Reason Comments Outpatient Testing Encounter Details Date Type Department Care Team (Late st Contact Info) Description 04/20/2023 2:20 PM EST Laboratory Laboratory [facility] [place] [address] [place] [phone] [place], Lab Scenery [address] [place] [address] Dark stools Allergies Active Allergy Reactions Criticality Noted Date [...] 0.1 % Nasal Solution (Astelin) Administer 1 [place] into nostril in the morning and 1 [place] before bedtime. 30 mL 1 01/11/2023 Active [...] before bedtime. 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 [address] [place] [address] Coordinator, [facility] [address] [place] [address] 04/22/2023 2:30 PM EST Hem/Onc Treatment Hematology/Oncology Treatment, [place] 200 [facility], [place] [address] [place], Chair 7 Hem Onc Scenery [address] [place] [address] 05/04/2023 11:00 AM EST Home Visit [facility], [facility] [address] [place] [address] Jenifer Linder RN [address] [place] [address] 05/06/2023 2:30 PM EST Hem/Onc Treatment Hematology/Oncology Treatment, [place] 200 [facility], [place] [address] Hannah, Chair 10 Hem Onc Scenery [address] [place] [address] 05/06/2023 4:30 PM EST Laboratory Laboratory Scenery [place] [address] [place], [place] [phone] [place], Lab Scenery [address] [place], [place] [address] 05/13/2023 4:30 PM EST Laboratory Laboratory Scenery [place] [address] [place] [phone] [place], Lab Scenery [address] [facility] [place], [place] [address] 05/20/2023 9:15 AM EST Office Visit Hematology/Oncology Scenery [place] [address] [place], [place] [address] Michael Snyder MD [address] [place], [place] [address] 05/20/2023 9:45 AM EST Hem/Onc Treatment Hematology/Oncology Treatment, [place] 200 [facility], [place] [address] Hannah, Chair 10 Hem Onc Scenery [address] [place] [address] 06/02/2023 2:30 PM EST Office Visit Cardiology, [facility] [address] Ghanshyam Osorio, PA-C 132 [place] [address] 06/03/2023 2:30 PM EST Hem/Onc Treatment Hematology/Oncology Treatment, [place] [address] [place] [address] Hannah, Chair 10 Hem Onc [facility] 200 [facility] [place] [address] 10/10/2023 9:00 AM EDT Office Visit [facility] [address] [place] [phone] Jairo Kingston MD [address] [place] [address] 12/13/2023 3:00 PM EDT Office Visit Nephrology, [facility] 200 [facility] [place] [address] Reggie Azevedo MD 200 [facility] [place] [address] 02/08/2024 11:30 AM EDT Appointment Radiology, [place] [address] [place] [address] 02/08/2024 12:15 PM EDT Office Visit Vascular Surg [facility], [place] [address] [place], [place] [phone] Mikhail Suazo MD [facility] [place], [place] [phone] 03/28/2024 3:20 PM EST Office Visit Sleep Disorders Ctr [facility] [address] [place] [phone] Shanika Fitzgerald, DO [address] [place] [address] Scheduled Procedures Name Priority Associated Diagnoses Date/Ti [...] 11/17, 12/31/2021, Additional history exists Hgb 04/05/2024 04/20/2023, 03/18, 03/22/2023, Additional history exists COLONOSCOPY-EVERY [...] this encounter Medical Devices Implanted Type Area Field Services Director Device Identifier Shelf Expiration Date Model / Serial / Lot Graft Hemasheild 20mm [id number] - [id number] Implanted:Qty: 1 on 01/13/2009 [place] [facility]A: Abdomen MICROVASIVE [id number] / / [id number] Stent Axios [id number] - [id number] Implanted:Qty: 1 on 12/10/2022 by Lacie England MD at OR [facility] [place] [employer] : ENDOSCOPY [id number] 04/06/2023 [id number] / / [id number] documented as of this encounter Procedures Procedure Name Priority Date/Time Associated Diagnosis Comments DIFFERENTIAL, AUTOMATED STAT 04/20/2023 4:34 PM EST Dark stools CBC STAT 04/20/2023 4:34 PM EST Dark stools CBC STAT 04/20/2023 4:34 PM EST Dark stools documented in this encounter Results * (ABNORMAL) DIFFERENTIAL, AUTOMATED (04/20/2023 4:34 PM EST) WBC 14.87(H) 4.00 - 10.80 K/uL 04/20/2023 4:48 PM EST LAB[facility]ATORY [facility] [place] 56-02 Neutrophils % 79.6(H) 40.0 - 75.0 % 04/20/2023 4:48 PM EST LAB[facility]ORY [place] 56-02 Lymphocytes % 8.3(L) 18.0 - 42.0 % 04/20/2023 4:48 PM EST [facility] 56 Monocytes % 9.5 1.0 - 11.0 % 04/20/2023 4:48 PM EST [facility] 56 Eosinophils % 2.3 0.0 - 6.0 % 04/20/2023 4:48 PM EST [facility] 56 Basophils % 0.3 0.0 - 2.0 % 04/20/2023 4:48 PM EST [facility] 56 Absolute Neutrophils 11.84(H) 1.80 - 7.70 K/uL 04/20/2023 4:48 PM EST [facility] 56 Absolute Lymphocytes 1.24 1.00 - 4.80 K/ul 04/20/2023 4:48 PM EST [facility] Absolute Monocytes 1.41(H) 0.00 - 1.10 K/uL 04/20/2023 4:48 PM EST [facility] Absolute Eosinophils 0.34 0.00 - 0.70 K/uL 04/20/2023 4:48 PM [facility] Absolute Basophils 0.04 0.00 - 0.20 K/uL 04/20/2023 4:48 PM [facility] Blood Venous blood specimen / Unknown Venipuncture / Unknown 04/20/2023 4:34 PM EST 04/20/2023 4:34 PM EST Tiffany Yang Jevon [facility] BLO[facility] ORDER[facility] [address] [place] [address] * (ABNORMAL) CBC (04/20/2023 4:34 PM EST) WBC 14.87(H) 4.00 - 10.80 K/uL 04/20/2023 4:48 PM [facility] RBC 3.39 4.50 - 5.25 M/uL 04/20/2023 4:48 PM [facility] HGB 10.3(L) 14.0 - 16.8 g/dL 04/20/2023 4:48 PM [facility] HCT 33.1(L) 40.0 - 48.4 % 04/20/2023 4:48 PM EST [facility] 56 MCV 97.6 82.0 - 99.5 fL 04/20/2023 4:48 PM EST [address] MCH 30.4 27.0 - 34.0 pg 04/20/2023 4:48 PM EST [address] MCHC 31.1 32.0 - 36.0 g/dL 04/20/2023 4:48 PM EST [facility] 56 RDW 17.5 11.5 - 15.5 % 04/20/2023 4:48 PM EST [address] PLT 271 140 - 400 K/uL 04/20/2023 4:[address] MPV 9.6 6.6 - 11.1 fL 04/20/2023 4:48 PM EST [address] Blood Venous blood specimen / Unknown Venipuncture / Unknown 04/20/2023 4:34 PM EST 04/20/2023 4:34 PM EST Tiffany [facility] BLOOD ORDERABLES [place] [address] [place] [address] documented in this encounter Visit Diagnoses Diagnosis Dark stools Nonspecific abnormal finding in stool contents documented in this encounter Advance Directives Documents on File Type Date Recorded Patient Screenplay Writer Expl anation Power of Gift Shop Manager 07/30/2022 POWER OF A TTORNEY Latest Code [...] and were consensually agreed upon. Care Teams Independent Marketing Consultant Relationship Specialty Start Date End Date Oesterling, Jairo R, MD [address] [facility] [place] [id number] PCP - General 12/21/05 documented as of this encounter
--- OUTSIDE RECORDS SUMMARY | 2023-04-22 13:28 | External Medical Summary | Summary of Care ---
Author Name Unknown Organization [facility] Address [address] [place] [address] Phone [phone] Care Team Providers Care Education Research Analyst Name Role Phone Jairo Kingston MD Primary Care Provider +1- [phone] Reason for Visit * Reason Onset Date Comments [facility]: Acute 04/20/2023 Encounter Details Date Type Department Care Team (Late st Contact Info) Description 04/20/2023 Telephone [facility], [facility] 132 [facility] [place] [address] [facility], Nurse [facility] [address] [facility] [place] [address] [facility]: Acute Allergies Active Allergy [...] 0.1 % Nasal Solution (Astelin) Administer 1 [place] into nostril in the morning and 1 [place] before bedtime. 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 HPI: Mikhail Fung is a 72 year old male that his daughter is calling [facility] Intake to report dark stools. [...] back instructions provided to patient. Denia Ferraro. RN [facility] space buyer [phone];m documented in this encounter Plan of Treatment Upcoming Encounters Date Type Department Care Team (Late st Contact Info) Description 04/21/2023 1:30 PM EST [facility] [place] [address] [place] [address] Coordinator, [facility] 132 [facility] [place] [address] 04/22/2023 2:30 PM EST Hem/Onc Treatment Hematology/Oncology Treatment, [place] 200 [facility], [place] [address] Park, Chair 7 Hem Onc Scenery [address] [place], [place] [address] 05/04/2023 11:00 AM EST Home Visit [facility], [facility] 132 [facility] [place] [address] Jenifer Linder RN 132 [facility] [place] [address] 05/06/2023 2:30 PM EST Hem/Onc Treatment Hematology/Oncology Treatment, [place] 200 [facility], [place] [address] Hannah, Chair 10 Hem Onc Scenery [address] [place], [place] [address] 05/06/2023 4:30 PM EST Laboratory [facility] [address] [place], [place] [phone] [place], Lab Scenery [address] [place], [place] [address] 05/13/2023 4:30 PM EST Laboratory Laboratory [facility] [address] [place], [place] [phone] [place], Lab Scenery [address] [place], [place] [address] 05/20/2023 9:15 AM EST Office Visit Hematology/Oncology Scenery [facility] [address] [place], [place] [address] Michael Snyder MD [address] [place], [place] [address] 05/20/2023 9:45 AM EST Hem/Onc Treatment Hematology/Oncology Treatment, [place] 200 [facility] [place] [address] Hannah, Chair 10 Hem Onc [facility] 200 [facility] [place] [address] 06/02/2023 2:30 PM EST Office Visit Cardiology, [facility] [address] [facility] [place] [address] Ghanshyam Osorio PA-C [address] [facility] [place] [address] 06/03/2023 2:30 PM EST Hem/Onc Treatment Hematology/Oncology Treatment, [place] 200 [facility] [place] [address] Hannah, Chair 10 Hem Onc [facility] 200 [facility] [place] [address] 10/10/2023 9:00 AM EDT Office Visit [facility] [address] [place] [phone] Jairo Kingston MD [address] [place] [address] 12/13/2023 3:00 PM EDT Office Visit Nephrology, [facility] [address] [place] [address] Reggie Azevedo MD 200 [facility] [place] [address] 02/08/2024 11:30 AM EDT Appointment Radiology, [address] [phone] 02/08/2024 12:15 PM EDT Office Visit Vascular Surg [facility], [address] [phone] Mikhail Suazo MD [address] [place] [address] 03/28/2024 3:20 PM EST Office Visit Sleep Disorders Ctr [facility] [address] [place] [address] Shanika Fitzgerald, DO [address] [place] [address] Scheduled Procedures Name Priority Associated Diagnoses Date/Ti [...] 12/31/2021, Additional history exists Hgb 04/05/2024 04/05/2023, 08/2022, 02/22/2023, Additional history exists COLONOSCOPY-EVERY 5 YRS [...] this encounter Medical Devices Implanted Type Area Credit And Collections Analyst Device Identifier Shelf Expiration Date Model / Serial / Lot Graft Hemasheild 20mm [id number] - [id number] Implanted:Qty: 1 on 01/13/2009 at [place] [facility] [place] N/A: Abdomen MICROVASIVE [id number] / / [id number] Stent Axios [id number] - [id number] Implanted:Qty: 1 on 12/10/2022 by Lacie England MD at OR [facility] [place] [employer] : ENDOSCOPY [id number] 04/06/2023 [id number] / / [id number] documented as of this encounter Advance Directives Documents on File Type Date Recorded 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 Care Teams Education Research Analyst Relationship Specialty Start Date End Date Jairo Kingston MD [address] [place] [address] PCP - General 12/21/05 documented as of this encounter
--- OUTSIDE RECORDS SUMMARY | 2023-04-22 13:28 | External Medical Summary | Summary of Care ---
Author Name Unknown Organization [facility] Address [address] [place] [address] Phone [phone] Care Team Providers Care Preflight Inspector Name Role Phone Jairo Kingston MD Primary Care Provider +1- [phone] Reason for Visit * Reason Onset Date Comments [facility]: Maintenance 04/21/2023 Encounter Details Date Type Department Care Team (Late st Contact Info) Description 04/21/2023 1:30 PM EST Scheduled Telephone [facility], [facility] [address] [place] [address] Coordinator, [facility] [address] [place] [address] Allergies Active Allergy Reactions Criticality Noted Date [...] 0.1 % Nasal Solution (Astelin) Administer 1 [place] into nostril in the morning and 1 [place] before bedtime. 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 Disposition: Routed to [facility] and/or [facility] Home Care Team for further advice Future Visits Scheduled: Future Appointments-next 60 days Date/Time Provider Specialty Dept Phone 04/22/2023 10:00 AM Hannah Chair 10 Hem Onc Scenery Hematology Oncology [phone] 04/22/2023 1:15 PM Coordinator, Harinder Cristina [facility] [phone] 04/23/2023 1:15 PM [facility], Nurse [facility] [phone] 04/24/2023 12:00 PM [facility], Nurse [facility] [phone] 05/04/2023 11:00 AM Jenifer Linder RN [facility] [phone] 05/06/2023 2:30 PM [place], Chair 10 Hem Onc Scenery Hematology Oncology [phone] 05/06/2023 4:30 PM [place], Lab Scenery Laboratory [phone] 05/13/2023 4:30 PM [place], Lab Scenery Laboratory [phone] 05/20/2023 9:15 AM (Arrive by 9:00 AM) Michael Snyder MD Hematology Oncology [phone] 05/20/2023 9:45 AM [place], Chair 10 Hem Onc Scenery Hematology Oncology [phone] 06/02/2023 2:30 PM (Arrive by 2:15 PM) Ghanshyam Osorio PA-C Cardiology [phone] 06/03/2023 2:30 PM [place], Chair 10 Hem Onc Scenery Hematology Oncology [phone] 10/10/2023 9:00 AM (Arrive by 8:45 AM) Jairo Kingston MD Family Medicine [phone] 12/13/2023 3:00 PM (Arrive by 2:45 PM) Reggie Azevedo MD Nephrology [phone] 02/08/2024 11:30 AM [facility] Radiology [phone] 02/08/2024 12:15 PM Mikhail Suazo MD Vascular Surgery [phone] 03/28/2024 3:20 PM (Arrive by 3:05 PM) Shanika Fitzgerald DO Sleep Disorders [phone] Bianca Andino RN 411 Directory Assistance Operator [facility] documented in this encounter Plan of Treatment Upcoming Encounters Date Type Department Care Team (Late st Contact Info) Description 04/22/2023 10:00 AM EST Hem/Onc Treatment Hematology/Oncology Treatment, [place] [address] [place] [address] Hannah, Chair 10 Hem Onc Scenery [address] [place] [address] 04/22/2023 1:15 PM EST Scheduled Telephone [facility], [address] [place] [address] Coordinator, [facility] [address] [place], [place] [address] 04/23/2023 1:15 PM EST Scheduled Telephone [facility], [facility] [address] [place] [address] [place], Nurse [place] [address] [place] [place] [address] 04/24/2023 12:00 PM EST Scheduled Telephone [facility], [facility] [address] [place] [address] [place], Nurse [place] [address] [place] [address] 05/04/2023 11:00 AM EST Home Visit [facility], [place] [address] [place] [address] Jenifer Linder RN [address] [place], [place] [address] 05/06/2023 2:30 PM EST Hem/Onc Treatment Hematology/Oncology Treatment, [place] [address] [place], [place] [address] Hannah, Chair 10 Hem Onc Scenery [address] [place], [place] [address] 05/06/2023 4:30 PM EST Laboratory Laboratory Scenery [facility] [address] [place], [place] [phone] Hannah Lab Scenery [address] [place], [place] [address] 05/13/2023 4:30 PM EST Laboratory Laboratory Scenery [facility] [address] [place], [place] [phone] [place], Lab Scenery [address] [place] [address] 05/20/2023 9:15 AM EST Office Visit Hematology/Oncology [facility] Hannah [place] [address] [place] [address] Michael Snyder MD [address] [place], [place] [address] 05/20/2023 9:45 AM EST Hem/Onc Treatment Hematology/Oncology Treatment, [place] 200 [facility] Yane [place], [place] [address] Hannah, Chair 10 Hem Onc [facility] 200 [facility] [place], [place] [address] 06/02/2023 2:30 PM EST Office Visit Cardiology, [facility] [address] [facility] [place] [address] Ghanshyam Osorio PA-C [address] [facility] [place] [address] 06/03/2023 2:30 PM EST Hem/Onc Treatment Hematology/Oncology Treatment, [place] 200 [facility], [place] [address] Hannah, Chair 10 Hem Onc [facility] 200 [facility] [place], [place] [address] 10/10/2023 9:00 AM EDT Office Visit [facility] [address] [place] [phone] Jairo Kingston MD [address] [place] [address] 12/13/2023 3:00 PM EDT Office Visit Nephrology, [facility] [place] [address] [place], [place] [address] Reggie Azevedo MD [address] [place], [place] [address] 02/08/2024 11:30 AM EDT Appointment Radiology, [place] [address] [place] [address] 02/08/2024 12:15 PM EDT Office Visit [facility], [place] [address] [place] [address] Mikhail Suazo MD [address] [place] [address] 03/28/2024 3:20 PM EST Office Visit [facility] Disorders Ctr [facility] [address] [place] [address] Shanika Fitzgerald DO [address] [place] [address] Scheduled Procedures Name Priority Associated Diagnoses Date/Ti [...] this encounter Medical Devices Implanted Type Area Endless Track Vehicle Supervisor Device Identifier Shelf Expiration Date Model / Serial / Lot Graft Hemasheild 20mm [id number] - [id number] Implanted:Qty: 1 on 01/13/2009 [place] [facility] [place]/A: Abdomen MICROVASIVE [id number] / / [id number] Stent Axios [id number] - [id number] Implanted:Qty: 1 on 12/10/2022 by Lacie England MD at OR [facility] [place] [employer] : ENDOSCOPY [id number] 04/06/2023 [id number] / / [id number] documented as of this encounter Advance Directives Documents on File Type Date Recorded Patient Insurance Application Investigator Expl anation Power of Radiologic Technology Instructor 07/30/2022 POWER OF A TTORNEY Latest Code [...] and were consensually agreed upon. Care Teams Preflight Inspector Relationship Specialty Start Date End Date Jairo Kingston MD [address] [place] [facility] [place] [address] PCP - General 12/21/05 documented as of this encounter
--- OUTSIDE RECORDS SUMMARY | 2023-04-22 13:29 | External Medical Summary ---
Author Name Unknown Address Unknown Organization K09:[facility] [place] [address] Laboratory Report Ordering Provider Test Date Status LOLLY ALEGRIA 04/05/2023 14:35:40 Final Observation Date Value Abnormality Reference (Units ) Status SYNC LEUKOCYTES IN BLOOD BY AUTOMATED COUNT 04/05/2023 14:35:40 8.13 4.00-10.80 (K/uL) Final Segs 04/05/2023 14:35:40 68.2 40.0-75.0 (%) Final Lymphs % 04/05/2023 14:35:40 15.6 Below low normal 18.0-42.0 (%) Final Monos 04/05/2023 14:35:40 10.2 1.0-11.0 (%) Final Eosinophils 04/05/2023 14:35:40 5.4 0.0-6.0 (%) Final Basos 04/05/2023 14:35:40 0.6 0.0-2.0 (%) Final Absolute Segs 04/05/2023 14:35:40 5.54 1.80-7.70 (K/uL) Final Lymphs, absolute 04/05/2023 14:35:40 1.27 1.00-4.80 (K/ul) Final Monos, Abs 04/05/2023 14:35:40 0.83 0.00-1.10 (K/uL) Final Eos, Abs 04/05/2023 14:35:40 0.44 0.00-0.70 (K/uL) Final Basos, Abs 04/05/2023 14:35:40 0.05 0.00-0.20 (K/uL) Final Performing Location [facility] [place] [address]
--- OUTSIDE RECORDS SUMMARY | 2023-04-22 13:29 | External Medical Summary ---
Author Name Unknown Address Unknown Organization K01:[facility] - [address] [place] [address] Laboratory Report Ordering Provider Test Date Status LOLLY ALEGRIA 04/05/2023 14:35:40 Final Observation Date Value Abnormality Reference (Units ) Status Iron 04/05/2023 14:35:40 62 45-176 (ug /dL) Final Iron-binding capacity 04/05/2023 14:35:40 293 250-425 (ug/dL) Final Transferrin Sat % 04/05/2023 14:35:40 21 15 -55 (%) Final Performing Location [facility] - [address] [place] [address]
--- OUTSIDE RECORDS SUMMARY | 2023-04-22 13:29 | External Medical Summary | Summary of Care ---
Author Name Unknown Organization [facility] Address [address] [place] [address] Phone [phone] Care Team Providers Care Clothing Cutter Name Role Phone Jairo Kingston MD Primary Care Provider [phone] Reason for Visit * Reason Comments Re-Check Encounter Details Date Type Department Care Team (Latest Contact Info) Description 03/25/2023 10:40 AM EST Office Visit [facility] [address] [place] [address] Jairo Kingston MD [address] [place] [address] DYSLIPIDEMIA, GOAL LDL BELOW 100*; Hyperparathyroidism (HCC); COPD, group C, by GOLD 2017 classification (HCC); GINNY on CPAP; Abdominal aortic aneurysm (AAA) without rupture, unspecified part (HCC); HTN, goal below 140/90; Iron deficiency anemia due to chronic blood loss; Waldenstrom macroglobulinemia (HCC); History of AAA (abdominal aortic aneurysm) repair Allergies Active Allergy Reactions Criticality Noted Date Comments Pavan Inhibitors Other (Please comment) 0 Hyperkalemia documented as of this encounter (statuses as of 04/11/2023) Medications Medication Sig Dispensed Refills Start Date End Date Status oxygen GAS Use 3 L/min(Oxygen) as directed at bedtime. Use 2-3 l/min continuously to keep pulse ox above 90% 0 Active CVS D3 50 MCG (2000 UT) Oral Capsule (Cholecalciferol)Ind ications:Vitamin D deficiency TAKE 1 CAPSULE BY MOUTH EVERY DAY 90 Cap 1 0 Active Docusate Sodium 100 MG Oral Capsule (Colace) Take 1 Capsule by mouth 2 times a day as needed for Constipation. 60 Capsule 5 3 Active Fluticasone Propionate 50 MCG/ACT Nasal Suspension [...] 90 Tablet 3 3 05/12/19 24 Active Pantoprazole Sodium 40 MG Oral Tablet Delayed Release (Protonix) Take 1 Tablet by mouth in the morning and 1 Tablet before bedtime. 90 Tablet 3 3 Active Sucralfate 1 GM/10ML Oral Suspension (Carafate) [...] 0.1 % Nasal Solution (Astelin) Administer 1 Harrington into nostril in the morning and 1 Harrington before bedtime. 30 mL 1 3 Active [...] inium-Vilanterol) Inhale one puff daily 180 Each 0 3 04/01/20 23 Discontinu ed(Refill) documented as of this encounter (statuses as of 04/11/2023) Active Problems Problem Noted Date Diagnosed Date [...] cristina Gonsalves History of supraventricular tachycardia 11/12/19 23 Idiopathic chronic gout of foot without tophus 0 11/11/2022 Last Assessment & Plan: Allopurinol watermaster No new attacks GINNY on CPAP 11/11/2022 [...] as of this encounter (statuses as of 04/11/2023) Resolved Problems Problem Noted Date Diagnosed Date [...] as of this encounter (statuses as of 04/11/2023) Immunizations Name Administration Dates Next Due COVID-19 [...] on file documented as of this encounter Last Filed Vital Signs Vital Sign Reading Time Taken Comments Blood Pressure 138/84 03/25/2023 10:35 AM EST Pulse 64 03/25/2023 10:35 AM EST Temperature 36.6 C (97.8 F) 03/25/2023 1 0:35 AM EST Respiratory Rate 18 03/25/2023 10:3 5 AM EST Oxygen Saturation 93% 03/25/2023 10: 35 AM EST Inhaled Oxygen Concentration - - Weight 89.3 kg (196 lb 12.8 oz) 023 10:35 AM EST Height - - Body Mass Index 31.76 03/24/2023 3:35 PM EST documented in this encounter Progress Notes * Jairo Kingston MD - 04/11/2023 9:44 PM EST Subjective: Mikhali Fung is a 72 year old male here today for Chief Complaint Patient presents with Re-Check Here for routine recheck. Feeling better. Tolerating current meds No acute complaints. Past Medical History: Diagnosis Date Abdominal aortic aneurysm (HCC) Backache work related Benign hypertension with stage 3b chronic kidney disease (HCC) 08/26/2020 Benign neoplasm of colon 12/05/08 adenomatous polyp--repeat 3 years Benign neoplasm of colon 01/11/12 adenomatous polyp rpt c-scope in 3 years Chronic kidney disease, stage 4 (severe) (HCC) 08/12/2022 Dyslipidemia, goal to be determined Gout 07/18/2001 HTN, goal below 140/90 Recurrent cerebrovascular accidents (CVAs) (HCC) 08/12/2022 Varicose vein of leg Past Surgical History: Procedure Laterality Date ANEURYSM ABDOM AORTA 01/13/2009 open repair of 5.7cm juxtarenal AAA with tube graft, Dr. Suazo COLONOSCOPY W/ BIOPSY (RECTUM) 06/29/2007 await pathology, reperat in 1-3 years COLONOSCOPY W/ BIOPSY (RECTUM) 12/05/2008 adenomatous polyps--repeat 3 years COLONOSCOPY W/ LESION REMOVAL, SNARE 08/03/2007 adenomatous; cecal ulcer- repeat 1-2 months COLONOSCOPY, DIAGNOSTIC (RECTUM) 09/15/2007 await BX, repeat in 1 year COLONOSCOPY, DIAGNOSTIC (RECTUM) 01/11/2012 COLONOSCOPY FLEXIBLE PROXIMAL DIAGNOSTIC performed by Jayna Montana MD at [facility]: adenomatous polyp rpt c-scope in 3 years COLONOSCOPY, DIAGNOSTIC (RECTUM) 07/31/2014 Diverticulosis, adenomatous polyps, 3 yr repeat/COLONOSCOPY FLEXIBLE PROXIMAL DIAGNOSTIC performed by Jayna Montana MD at [facility]COPY [facility] COLONOSCOPY, DIAGNOSTIC (RECTUM) 08/02/2017 adenomatous polyps, diverticulosis, repeat 3 yrs/COLONOSCOPY FLEXIBLE PROXIMAL DIAGNOSTIC performedby Lacie England MD at ENDOSCOPY [facility] COLONOSCOPY, DIAGNOSTIC (RECTUM) 01/02/2021 benign adenomatous polyp, diverticulosis, repeat 5 yrs / [facility] COLONOSCOPY, GI REFERRAL OP 08/2004 polyps, repeat 08/23 EGD, FLEXIBLE, DIAGNOSTIC 02/20/2018 normal / [facility] EGD, FLEXIBLE, DIAGNOSTIC 11/04/2021 gastritis, gastric ulcer, repeat 3 mo / [facility] EGD, FLEXIBLE, DIAGNOSTIC 03/03/2022 normal egd, EGD, FLEXIBLE, W/CYST DRAINAGE N/A 12/10/2022 single non-bleeding angioectasia stomach/ESOPHAGOGASTRODUODENOSCOPY (EGD), FLEXIBLE, TRANSORAL, WITH DRAINAGE PSEUDOCYST performed by Lacie England MD at OR [facility] EGD, W/ENDOSCOPIC US N/A 12/10/2022 cholecystoduodenostomy performed using Axios stent/repeat 1 year/ESOPHAGOGASTRODUODENOSCOPY (EGD), FLEXIBLE, TRANSORAL, ENDOSCOPIC ULTRASOUND performed by Lacie England MD at OR [facility] ERCP, DIAGNOSTIC, SPECIMEN COLLECTION N/A 12/10/2022 one stent removed from CBD/ENDOSCOPIC RETROGRADE CHOLANGIOPANCREATOGRAPHY (ERCP) DIAGNOSTIC performed by Lacie England MD at OR [facility] MISCELLANEOUS ORDER ([facility] ONLY) 01/28/2010 Lysis of extensive adhesions, incisional hernia repair laparoscopically 01/28/10 [facility], Dr. 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 60 Capsule 5 Fluticasone Propionate 50 MCG/ACT Nasal Suspension (Flonase) INSTILL 2 SPRAYS INTO EACH NOSTRIL EVERY DAY 48 g 3 Allopurinol 300 MG Oral Tablet (Zyloprim) TAKE ONE-HALF TABLET BY MOUTH EVERY DAY 45 Tablet 2 Atorvastatin Calcium 80 MG Oral Tablet (Lipitor) TAKE ONE TABLET BY MOUTH EVERY DAY 90 Tablet 3 Pantoprazole Sodium 40 MG Oral Tablet Delayed Release (Protonix) Take 1 Tablet by mouth in the morning and 1 Tablet before bedtime. 90 Tablet 3 Potassium Chloride Marla ER 10 MEQ Oral Tablet Extended Release Take 1 Tablet by mouth once a day onTuesday, Tuesday, and Tuesday only. 45 Tablet 3 CPAP every night at bedtime. Ascorbic Acid 250 MG Oral Tablet Take 0.5 Tablets by mouth daily at noon. 90 Tablet 3 Ferrous Sulfate 325 (65 Fe) MG Oral Tablet (Feosol) Take 1 Tablet by mouth daily at noon. 90 Tablet3 Albuterol Sulfate HFA 108 (90 Base) MCG/ACT Inhalation Aerosol Solution Inhale 2 Puffs by mouth every 4 hours as needed for Wheezing. 54 g 6 Apixaban 2.5 MG Oral Tablet (Eliquis) Take 1 Tablet by mouth in the morning and 1 Tablet before bedtime. 180 Tablet 1 Azelastine HCl 0.1 % Nasal Solution (Astelin) Administer 1 Harrington into nostril in the morning and 1 Harrington before bedtime. 30 mL 1 Furosemide 20 MG Oral Tablet (Lasix) TAKE 1 TABLET BY MOUTH twice DAILY 90 Tablet 3 Ipratropium-Albuterol 0.5-2.5 (3) MG/3ML Inhalation Solution (Duoneb) Inhale 3 mL by mouth every 6 hours as needed (sob). 360 mL 5 Ezetimibe 10 MG Oral Tablet (Zetia) TAKE ONE TABLET BY MOUTH EVERY MORNING 90 Tablet 3 Metoprolol Tartrate 25 MG Oral Tablet (Lopressor) Take 1 Tablet by mouth in the morning and 1 Tablet before bedtime. 100 Tablet 3 oxygen GAS Use 3 L/min(Oxygen) as directed at bedtime. Use 2-3 l/min continuously to keep pulse ox above 90% Sucralfate 1 GM/10ML Oral Suspension (Carafate) Take 10 mL by mouth in the morning and 10 mL at noon and 10 mL before bedtime. (Patient not taking: Reported on 03/25/2023) 420 mL 0 Octreotide Acetate 10 MG Intramuscular Kit (SandoSTATIN LAR [place]) Inject 10 mg into a large muscleevery month for 6 doses. 6 Kit 0 Trelegy Ellipta 100-62.5-25 MCG/ACT Aerosol Powder Breath Activated (Xbpdoptcdgo-Ttahjkdehbvs-Hktwkktjnv) Inhale one puff daily 180 Each 1 No current facility-administered medications for this visit. Objective: BP 138/84 | Pulse 64 | Temp 36.6 C (97.8 F) | Resp 18 | Wt 89.3 kg (196 lb 12.8 oz) | SpO2 93% | BMI 31.76 kg/m | BSA 2.04 m GEN: NAD HEENT: Benign NECK: Supple with no LAD, TM, JVD CHEST: CTA B CV: RRR ABD: Soft, NT/ND, No HSM, NABS EXT: No c,c,e Assessment and Plan: DYSLIPIDEMIA, GOAL LDL BELOW 100 (Primary) Hyperparathyroidism (HCC) COPD, group C, by GOLD 2017 classification (HCC) GINNY on CPAP Abdominal aortic aneurysm (AAA) without rupture, unspecified part (HCC) HTN, goal below 140/90 Iron deficiency anemia due to chronic blood loss Waldenstrom macroglobulinemia (HCC) History of AAA (abdominal aortic aneurysm) repair -continue current meds and follow up, stable. Follow Up: Return for can cancel Feb appt - make a new follow up for September. | For: can cancel Feb appt - make a new follow up for September 28 min with pt and chart review Jairo Kingston MD documented in this encounter Nursing Notes * Ami Mondragon LPN - 03/25/2023 10:35 AM EST 6 month return No concerns documented in this encounter Plan of Treatment Upcoming Encounters Date Type Department Care Team (Late st Contact Info) Description 04/22/2023 2:30 PM EST Hem/Onc Treatment Hematology/Oncology Treatment, [place] [address] [facility], [place] [address] Hannah, Chair 7 Hem Onc Scenery [address] [place], [place] [address] 05/04/2023 11:00 AM EST Home Visit [facility], [facility] [address] [place] [address] Jenifer Linder RN [address] [place] [address] 05/06/2023 2:30 PM EST Hem/Onc Treatment Hematology/Oncology Treatment, [place] [address] [facility], [place] [address] Hannah, Chair 10 Hem Onc Scenery [address] [place] [address] 05/06/2023 4:30 PM EST Laboratory Laboratory [facility] [place] [address] [place], [place] [id number] Hannah, Lab Scenery [address] [place], [place] [address] 05/13/2023 4:30 PM EST Laboratory Laboratory [facility] [place] [address] [place], [place] [id number] [place], Lab Scenery [address] [place] [address] 05/20/2023 9:15 AM EST Office Visit Hematology/Oncology [facility] [place] [address] [place], [place] [address] Michael Snyder MD [address] [place], [place] [address] 05/20/2023 9:45 AM EST Hem/Onc Treatment Hematology/Oncology Treatment, [place] [address] [facility], [place] [address] Hannah, Chair 10 Hem Onc Scenery [address] [place], [place] [address] 06/02/2023 2:30 PM EST [facility] [place] [address] Ghanshyam Osorio PA-C [address] [place] [address] 06/03/2023 2:30 PM EST Hem/Onc Treatment Hematology/Oncology Treatment, [place] [address] [place] [address] Hannah, Chair 10 Hem Onc [facility] [address] [facility] [place] [address] 10/10/2023 9:00 AM EDT Office Visit [facility] [address] [place] [address] Jairo Kingston MD [address] [place] [address] 12/13/2023 3:00 PM EDT Office Visit Nephrology, [facility] [address] [facility] [place] [address] Reggie Azevedo MD [address] [facility] [place] [address] 02/08/2024 11:30 AM EDT Appointment Radiology, [place] [address] [place] [phone] 02/08/2024 12:15 PM EDT Office Visit Vascular Surg [facility], [place] [address] [place], [place] [phone] Mikhail Suazo MD [address] [place], [place] [id number] 03/28/2024 3:20 PM EST Office Visit Sleep Disorders Ctr [facility] [place] [address] Shanika Fitzgerald, DO [address] [place] [address] Scheduled Procedures Name Priority Associated Diagnoses Date/Ti [...] Completed 01/10/2023, 03/04/2022, 01/15/2021, Additional history exists LUNG CANCER SCREENING - USE SMARTSET 29954 Completed 01/27/2023, 06/25/2022, 02/08/2019, Additional history exists GARDASIL-HPV IMMUNIZATION SERIES Aged Out No longer eligible based on patient's age to complete this topic Hepatitis B Aged Out No longer eligi ble based on patient's age to complete this topic MENINGOCOCCAL (MENACTRA/MENVEO) Aged Out No longer eligible based on patient's age to complete this topic documented as of this encounter Medical Devices Implanted Type Area Paper Box Maker Device Identifier Shelf Expiration Date Model / Serial / Lot Graft Hemasheild 20mm [id number] - [id number] Implanted:Qty: 1 on 01/13/2009 at OR [facility] N/A: Abdomen MICROVASIVE [id number] / / [id number] Stent Axios [id number] - [id number] Implanted:Qty: 1 on 12/10/2022 by Lacie England MD at OR [facility] [employer] : ENDOSCOPY [id number] 04/06/2023 [id number] / / [id number] documented as of this encounter Visit Diagnoses Diagnosis DYSLIPIDEMIA, GOAL LDL BELOW 100- Primary Other and unspecified hyperlipidemia Hyperparathyroidism (HCC) Hyperparathyroidism, unspecified COPD, group C, by GOLD 2017 classification (HCC) GINNY on CPAP Obstructive sleep apnea (adult) (pediatric) Abdominal aortic aneurysm (AAA) without rupture, unspecified part (HCC) HTN, goal below 140/90 Unspecified essential hypertension Iron deficiency anemia due to chronic blood loss Iron 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 (chronic) Waldenstrom macroglobulinemia (HCC) Macroglobulinemia History of AAA (abdominal aortic aneurysm) repair Other postprocedural status documented in this encounter Advance Directives Documents on File Type Date Recorded Patient Mortgage Sales Manager Expl anation Power of Field Attendant 07/30/2022 POWER OF A TTORNEY Latest Code [...] and were consensually agreed upon. Care Teams Clothing Cutter Relationship Specialty Start Date End Date Jairo Kingston MD [address] [place] [address] PCP - General 12/21/05 documented as of this encounter"
--- OUTSIDE RECORDS SUMMARY | 2023-04-22 13:29 | External Medical Summary | Summary of Care ---
Author Name Unknown Organization [facility] Address [address] [place] [address] Phone [phone] Care Team Providers Care Teacher Citizenship Name Role Phone Jairo Kingston MD Primary Care Provider [phone]- [phone] Reason for Visit * Reason Comments NEW PATIENT * Evaluate & Treat - Unlimited Visits (Within 30 days (routine)) - Authorized Specialty Diagnoses / Procedures Referred By Conterika t Referred To Contact Pulmonary Diseases / Pulmonary Diagnoses Shortness of breath Hypoxia Jairo Kingston MD [address] [place] [address] Referral ID Status Reason Start Date Expiration Date Visits Requested Visits Authorized [id number] Authorized Specialty Services Required 12/01/2022 999 [id number] Encounter Details Date Type Department Care Team (Late st Contact Info) Description 12/09/2022 10:40 AM EDT Telemedicine Pulmonary Medicine, [facility] [address] [facility] [place] [address] Devin Hodge MD [address] [place] [address] Physical deconditioning* Allergies Active Allergy Reactions Criticality Noted Date Comments Pavan Inhibitors Other (Please comment) 0 Hyperkalemia documented as of this encounter (statuses as of 04/11/2023) Medications Medication Sig Dispensed Refills Start Date End Date Status oxygen GAS Use 3 L/min(Oxygen) as directed at bedtime. Use 2-3 l/min continuously to keep pulse ox above 90% 0 Active [facility] D3 50 MCG (1999) Oral Capsule (Cholecalciferol )Indications:Vit loo D deficiency TAKE 1 CAPSULE BY MOUTH [...] 4 Active Allopurinol 300 MG Oral Tablet (Zyloprim)Indica tions:Gout TAKE ONE-HALF TABLET BY MOUTH EVERY DAY [...] Tuesday only. 45 Tablet 3 12/03/2022 Active Vitron-C 65-125 MG Oral Tablet (Iron-Vitamin C)Indications:Ir on deficiency anemia Take 1 Tab by mouth daily. 30 Tab 11 12/26/2020 3 Discontinue d(Medicatio n List Clean Up) Ipratropium-Albu terol 0.5-2.5 (3) MG/3ML Inhalation Solution (Duoneb) Inhale 3 mL by mouth every 6 hours as needed (sob). 360 mL 5 08/31/2022 3 Discontinue d(Refill) Apixaban 5 MG Oral Tablet (Eliquis) TAKE ONE TABLET BY MOUTH TWICE A DAY -- IN THE MORNING AND BEFORE BEDTIME 180 Tablet 3 08/26/2022 3 Discontinue d(Refill) Clopidogrel Bisulfate 75 MG Oral Tablet (pLAVix) TAKE ONE TABLET BY MOUTH EVERY DAY 90 Tablet 3 03/26/2022 3 Discontinue d(Refill) Metoprolol Tartrate 25 MG Oral Tablet (Lopressor) TAKE ONE-HALF TABLET BY MOUTH TWO TIMES A DAY 100 Tablet 3 03/08/2022 3 Discontinue d(Refill) Ezetimibe 10 MG Oral Tablet (Zetia) TAKE ONE TABLET BY MOUTH EVERY MORNING 90 Tablet 3 03/05/2022 3 Discontinue d(Refill) Albuterol Sulfate HFA 108 (90 Base) MCG/ACT Inhalation Aerosol Solution Inhale 2 Puffs by mouth every 4 hours as needed for Wheezing. 54 g 3 10/26/2022 3 Discontinue d(Refill) amLODIPine Besylate 10 MG Oral Tablet (Norvasc) Take 1 Tablet by mouth in the morning. 90 Tablet 3 11/09/2022 3 Discontinue d(Refill) Anoro Ellipta 62.5-25 MCG/ACT Inhalation Aerosol Powder Breath Activated (umeclidinium-vi lanterol) Inhale 1 puff by mouth daily 180 Each 3 11/09/2022 3 Discontinue d(Refill) Furosemide 20 MG Oral Tablet (Lasix) Take 1 Tablet by mouth once a day on Tuesday, Tuesday, and Tuesday only. 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 No new attacks GINNY on CPAP 11/11/2022 [...] due to stage 3b chronic kidney disease 10/26/1911/11/2022 Overview: Per CKD protocol COPD with acute [...] Seasonal Influenza, Quadriva lent Hd (Fluzone Hd) 03/04/2022,01/15/2021 TD, Preservative Free 03/04/2022 TDAP (age 10 and older)(Boostrix) 12/14/2011 documented as of this encounter Social History Tobacco Use Types Packs/Day Years Used Date Smoking Tobacco: Former Cigarettes 1 40 Q uit: 2009 Cigars Smokeless Tobacco: Never Tobacco Cessation:Counseling Given: Not Answered Alcohol Use Standard Drinks/Week Comments Yes 0 (1 standard drink = 0.6 oz pur e alcohol) a beer occasionally PHQ-2 Answer Date Recorded PHQ Adult Total [...] Sign Reading Time Taken Comments Blood Pressure - - Pulse - - Temperature - - Respiratory Rate - - Oxygen Saturation - - Inhaled Oxygen Concentration - - Weight 82.6 kg (182 lb) 12/07/2022 2:18 PM EDT p er pt Height 170.2 cm (5' 7") 12/07/2022 2:18 PM EDT p er pt Body Mass Index 28.51 12/07/2022 2:18 PM EDT documented in this encounter Progress Notes * Devin Hodge MD - 04/11/2023 3:57 PM EST Error. No show visit. documented in this encounter Nursing Notes * Dianelys Colunga RRT - 12/07/2022 2:23 PM EDT Interm History/Respiratory Symptoms Cough: Productive light yellow Hemoptysis: No Sinus Symptoms: Sinus drainage Hospitalizations: [facility] 1 week ago blood in stool ED Trips: Was admitted 1 week ago Triggers: Humidity Nocturnal: Pt wears 2 liters continuously and bled into CPAP CPAP/BiPAP/O2: Pt wears 2 liters continuously and bled into CPAP Flu Vaccine: 03/04/22 Pneumovax: 06/10/14 Prevnar: 06/12/15 COVID 19: 05/22/20, 06/19/20, and 02/19/21 Myc Visit Accident Related Question Question 12/07/2022 2:26 PM EDT - Filed by Patient Is this visit related to an accident? (i.e work, motor vehicle) No . documented in this encounter Plan of Treatment Upcoming Encounters Date Type Department Care Team (Late st Contact Info) Description 04/22/2023 2:30 PM EST Hem/Onc Treatment Hematology/Oncology Treatment, [place] [address] [facility], [place] [address] Hannah, Chair 7 Hem Onc Scenery [address] [place], [place] [address] 05/04/2023 11:00 AM EST [facility], [facility] [address] [place] [address] Jenifer Linder RN [address] [place] [address] 05/06/2023 2:30 PM EST Hem/Onc Treatment Hematology/Oncology Treatment, [place] [address] [facility], [place] [address] Hannah, Chair 10 Hem Onc Scenery [address] [place] [address] 05/06/2023 4:30 PM EST Laboratory Laboratory [facility] [place] [address] [place], [place] [phone] Hannah, Lab Scenery [address] [place], [place] [address] 05/13/2023 4:30 PM EST Laboratory Laboratory [facility] [place] [address] [place], [place] [phone] Park, Lab Scenery [address] [place] [address] 05/20/2023 9:15 AM EST Office Visit Hematology/Oncology [facility] [place] [address] [place], [place] [address] Michael Snyder MD [address] [place], [place] [address] 05/20/2023 9:45 AM EST Hem/Onc Treatment Hematology/Oncology Treatment, [place] [address] [facility], [place] [address] Hannah, Chair 10 Hem Onc Scenery [address] [place], [place] [address] 06/02/2023 2:30 PM EST [facility] [place] [address] Ghanshyam Osorio PA-C [address] [place] [address] 06/03/2023 2:30 PM EST Hem/Onc Treatment Hematology/Oncology Treatment, [place] [address] [place] [address] Hannah, Chair 10 Hem Onc [facility] [address] [facility] [place] [address] 10/10/2023 9:00 AM EDT Office Visit [facility] [address] [place] [address] Jairo Kingston MD [address] [place] [address] 12/13/2023 3:00 PM EDT Office Visit Nephrology, [facility] [address] [facility] [place] [address] Reggie Azevedo MD [address] [facility] [place] [address] 02/08/2024 11:30 AM EDT Appointment Radiology, [place] [address] [place] [phone] 02/08/2024 12:15 PM EDT Office Visit Vascular Surg [facility], [place] [address] [place] [place], [place] [phone] Mikhail Suazo MD [address] [place], [place] [phone] 03/28/2024 3:20 PM EST Office Visit Sleep Disorders Ctr [facility] [place] [address] Shanika Fitzgerald, DO [address] [place] [address] Scheduled Procedures Name Priority Associated Diagnoses Date/Ti [...] exists LUNG CANCER SCREENING - USE SMARTSET [id number] Completed 01/27/2023, 06/25/2022, 02/08/2019, Additional history exists [...] this encounter Medical Devices Implanted Type Area Dial Buffer Device Identifier Shelf Expiration Date Model / Serial / Lot Graft Hemasheild 20mm [id number] - [id number] Implanted:Qty: 1 on 01/13/[address] [facility] N/A: Abdomen MICROVASIVE [id number] / / [id number] Stent Axios [id number] - [id number] Implanted:Qty: 1 on 12/10/2022 by Lacie England MD at [facility] [id number] 04/06/2023 [id number] / / [id number] documented as of this encounter Visit Diagnoses Diagnosis Physical deconditioning- Primary Debility, unspecified documented in this encounter Advance Directives Documents on File Type Date Recorded Patient Hash Slinger Expl anation Power of Business Operations Consultant 07/30/2022 POWER OF A TTORNEY Latest [...] and were consensually agreed upon. Care Teams Teacher Citizenship Relationship Specialty Start Date End Date aJiro Kingston MD [address] [place] [address] PCP - General 12/21/05 documented as of this encounter
--- OUTSIDE RECORDS SUMMARY | 2023-04-22 13:29 | External Medical Summary | Summary of Care ---
Author Name Unknown Organization [facility] Address [address] [place] [address] Phone [phone] Care Team Providers Care Horse Race Starter Name Role Phone Jairo Kingston MD Primary Care Provider +1- [phone] Reason for Visit * Reason Onset Date Comments [facility]: Acute 04/20/2023 Encounter Details Date Type Department Care Team (Late st Contact Info) Description 04/20/2023 Telephone [facility], [facility] [address] [facility] [place] [address] [facility], Nurse [facility] [address] [facility] [place] [address] [facility]: Acute Allergies Active Allergy [...] 0.1 % Nasal Solution (Astelin) Administer 1 [place] into nostril in the morning and 1 [place] before bedtime. 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 Denia Ferraro. RN [facility] technical specialist cytogenetics [phone];m documented in this encounter Plan of Treatment Upcoming Encounters Date Type Department Care Team (Late st Contact Info) Description 04/21/2023 1:30 PM EST Scheduled Telephone [facility] [place], [address] [place] [address] Coordinator, [facility] [address] [facility] [place] [address] 04/22/2023 2:30 PM EST Hem/Onc Treatment Hematology/Oncology Treatment, [place] 200 [facility], [place] [address] Park, Chair 7 Hem Onc Scenery [address] [place], [place] [address] 05/04/2023 11:00 AM EST Home Visit [facility], [facility] [address] [facility] [place] [address] Jenifer Linder RN 132 [facility] [place] [address] 05/06/2023 2:30 PM EST Hem/Onc Treatment Hematology/Oncology Treatment, [place] [address] [facility], [place] [address] Hannah, Chair 10 Hem Onc Scenery [address] [place], [place] [address] 05/06/2023 4:30 PM EST Laboratory Laboratory [facility] [address] [place], [place] [phone] Hannah, Lab Scenery [address] [place], [place] [address] 05/13/2023 4:30 PM EST [facility] [address] [place], [place] [phone] Hannah, Lab Scenery [address] [place], [place] [address] 05/20/2023 9:15 AM EST Office Visit Hematology/Oncology Scenery [facility] [address] [place], [place] [address] Michael Snyder MD [address] [place], [place] [address] 05/20/2023 9:45 AM EST Hem/Onc Treatment Hematology/Oncology Treatment, [place] [address] [place] [address] Hannah, Chair 10 Hem Onc [facility] 200 [place] [address] 06/02/2023 2:30 PM EST Office Visit Cardiology, [facility] [address] [place] [address] Ghanshyam Osorio PA-C [address] [facility] [address] 06/03/2023 2:30 PM EST Hem/Onc Treatment Hematology/Oncology Treatment, [place] [address] [place] [address] Hannah, Chair 10 Hem Onc [facility] [address] [facility] [place] [address] 10/10/2023 9:00 AM EDT Office Visit [facility] [address] [place] [phone] Jairo Kingston MD [address] [place] [address] 12/13/2023 3:00 PM EDT Office Visit Nephrology, [facility] [address] [place] [address] Reggie Azevedo MD 200 [place] [address] 02/08/2024 11:30 AM EDT Appointment Radiology, [address] [phone] 02/08/2024 12:15 PM EDT Office Visit Vascular Surg [facility], [address] [phone] Mikhail Suazo MD [address] [place] [address] 03/28/2024 3:20 PM EST Office Visit Sleep Disorders Ctr [facility] [address] [place] [address] Shanika Fitzgerald, DO [address] [place] [address] Scheduled Procedures Name Priority Associated Diagnoses Date/Ti [...] this encounter Medical Devices Implanted Type Area Business Project Manager Device Identifier Shelf Expiration Date Model / Serial / Lot Graft Hemasheild 20mm [id number] - [id number] Implanted:Qty: 1 on 01/13/2009 at OR [facility] [place] [facility] N/A: Abdomen MICROVASIVE [id number] / / [id number] Stent Axios [id number] - [id number] Implanted:Qty: 1 on 12/10/2022 by Lacie England MD at OR [facility] : ENDOSCOPY [id number] 04/06/2023 [id number] / / [id number] documented as of this encounter Advance Directives Documents on File Type Date Recorded Patient Worm Sorter Expl anation Power of Ms Sql Dba 07/30/2022 POWER OF A TTORNEY Latest Code [...] and were consensually agreed upon. Care Teams Horse Race Starter Relationship Specialty Start Date End Date Jairo Kingston MD [address] [place] [address] PCP - General 12/21/05 documented as of this encounter
--- OUTSIDE RECORDS SUMMARY | 2023-04-22 13:29 | External Medical Summary | Summary of Care ---
Author Name Unknown Organization [facility] Address [address] [facility] [address] Phone [phone] Care Team Providers Care Bullard Machine Operator Name Role Phone Jairo Kingston MD Primary Care Provider +1- [phone] Encounter Details Date Type Department Care Team (Late st Contact Info) Description 03/18/2023 Orders Only Hematology/Oncology [facility] [place] [address] [place] [address] Sheri Hanson CRNP [address] [facility] [place] [address] Allergies Active Allergy Reactions Criticality Noted Date Comments Pavan Inhibitors Other (Please comment) 0 Hyperkalemia documented as of this encounter (statuses as of 04/19/2023) Medications Medication Sig Dispensed Refills Start Date [...] 0.1 % Nasal Solution (Astelin) Administer 1 [place] into nostril in the morning and 1 [place] before bedtime. 30 mL 1 01/11/2023 Active [...] before bedtime. 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 GINNY on CPAP 11/11/2022 [...] as of this encounter (statuses as of 04/19/2023) Resolved Problems Problem Noted Date Diagnosed Date [...] as of this encounter (statuses as of 04/19/2023) Immunizations Name Administration Dates Next Due COVID-19 [...] 2:30 PM EST Hem/Onc Treatment Hematology/Oncology Treatment, [place] [address] [place] [address] Hannah, Chair 7 Hem Onc Scenery [address] [place] [address] 05/04/2023 11:00 AM EST Home Visit [facility], [facility] [address] [place] [address] Jenifer Linder RN [address] [place] [address] 05/06/2023 2:30 PM EST Hem/Onc Treatment Hematology/Oncology Treatment, [place] [address] [facility], [place] [address] Hannah, Chair 10 Hem Onc Scenery [address] [place], [place] [address] 05/06/2023 4:30 PM EST Laboratory Laboratory [facility] [address] [place], [place] [phone] Park, Lab Scenery [address] [place] [address] 05/13/2023 4:30 PM EST Laboratory Laboratory [facility] [address] [place], [place] [phone] Hannah, Lab Scenery [address] [place], [place] [address] 05/20/2023 9:15 AM EST Office Visit Hematology/Oncology [facility] [address] [place] [address] Michael Snyder MD 200 [place] [address] 05/20/2023 9:45 AM EST Hem/Onc Treatment Hematology/Oncology Treatment, [address], [place] [address] Hannah, Chair 10 Hem Onc Scenery 200 [facility] [place] [address] 06/02/2023 2:30 PM EST Office Visit Cardiology, [facility] [address] [place] [address] Ghanshyam Osorio PA-C [address] [place] [address] 06/03/2023 2:30 PM EST Hem/Onc Treatment Hematology/Oncology Treatment, [address] [place], [place] [address] Hannah, Chair 10 Hem Onc [facility] 200 [facility] [place] [address] 10/10/2023 9:00 AM EDT Office Visit [facility] [address] [place] [facility] [phone] Jairo Kingston MD [address] [place] [address] 12/13/2023 3:00 PM EDT Office Visit Nephrology, [facility] 200 [facility] [place] [address] Reggie Azevedo MD 200 [facility] [place] [address] 02/08/2024 11:30 AM EDT Appointment Radiology, [place] [address] [place] [address] 02/08/2024 12:15 PM EDT Office Visit Vascular Surg [facility], [place] [address] [place], [place] [phone] Mikhail Suazo MD [address] [place], [place] [phone] 03/28/2024 3:20 PM EST Office Visit [facility] Disorders Ctr [facility] [place] [phone] Shanika Fitzgerald DO [address] [place] [address] Scheduled Procedures Name Priority Associated Diagnoses Date/Ti [...] 12/31/2021, Additional history exists Hgb 04/05/2024 04/05/2023, 12/0 08/2022, 02/22/2023, Additional history exists COLONOSCOPY-EVERY 5 [...] this encounter Medical Devices Implanted Type Area Automation Manager Device Identifier Shelf Expiration Date Model / Serial / Lot Graft Hemasheild 20mm [id number] - [id number] Implanted:Qty: 1 on 01/13/2009 [place] [facility]A: Abdomen MICROVASIVE [id number] / / [id number] Stent Axios [id number] - [id number] Implanted:Qty: 1 on 12/10/2022 by Lacie England MD at OR [facility] : ENDOSCOPY [id number] 04/06/2023 [id number] / / [id number] documented as of this encounter Advance Directives Documents on File Type Date Recorded Patient Supervisor Spring Up Expl anation Power of Brusher Operator 07/30/2022 POWER OF A TTORNEY Latest Code [...] and were consensually agreed upon. Care Teams Bullard Machine Operator Relationship Specialty Start Date End Date Jairo Kingston MD [address] [place] [address] PCP - General 12/21/05 documented as of this encounter
--- OUTSIDE RECORDS SUMMARY | 2023-04-22 13:29 | External Medical Summary ---
Author Name Unknown Address Unknown Organization [id number] [place] [address] Laboratory Report Ordering Provider Test Date Status LOLLY ALEGRIA 04/05/2023 14:35:40 Final Observation Date Value Abnormality Reference (Units ) Status WBC, Total 04/05/2023 14:35:40 8.13 4.00-10.8 0 (K/uL) Final RBC 04/05/2023 14:35:40 3.72 4.50-5.25 (M/uL) Final Hemoglobin 04/05/2023 14:35:40 11.3 Below low normal 14 .0-16.8 (g/dL) Final HCT 04/05/2023 14:35:40 36.7 Below low normal 40. 0-48.4 (%) Final MCV 04/05/2023 14:35:40 98.7 82.0-99.5 (fL) Final MCH 04/05/2023 14:35:40 30.4 27.0-34.0 (pg) Final MCHC 04/05/2023 14:35:40 30.8 32.0-36.0 (g/dL) Final RDW 04/05/2023 14:35:40 18.5 11.5-15.5 (%) Final Platelets 04/05/2023 14:35:40 201 140-400 (K /uL) Final MPV 04/05/2023 14:35:40 10.4 6.6-11.1 ( fL) Final Performing Location [facility] [place] [address]
--- OUTSIDE RECORDS SUMMARY | 2023-04-22 13:29 | External Medical Summary ---
Author Name Unknown Address Unknown Organization [id number][facility] [place] [address] Laboratory Report Ordering Provider Test Date Status CYNDI LOPEZ 04/20/2023 16:34:39 Final Observation Date Value Abnormality Reference (Units ) Status SYNC LEUKOCYTES IN BLOOD BY AUTOMATED COUNT 04/20/2023 16:34:39 14.87 Above high normal 4.00-10.80 (K/uL) Final Segs 04/20/2023 16:34:39 79.6 Above high normal 40.0-75.0 (%) Final Lymphs % 04/20/2023 16:34:39 8.3 Below low normal 18.0-42.0 (%) Final Monos 04/20/2023 16:34:39 9.5 1.0-11.0 (%) Final Eosinophils 04/20/2023 16:34:39 2.3 0.0-6.0 (%) Final Basos 04/20/2023 16:34:39 0.3 0.0-2.0 (%) Final Absolute Segs 04/20/2023 16:34:39 11.84 Above high normal 1.80-7.70 (K/uL) Final Lymphs, absolute 04/20/2023 16:34:39 1.24 1.00-4.80 (K/ul) Final Monos, Abs 04/20/2023 16:34:39 1.41 Above high normal 0.00-1.10 (K/uL) Final Eos, Abs 04/20/2023 16:34:39 0.34 0.00-0.70 (K/uL) Final Basos, Abs 04/20/2023 16:34:39 0.04 0.00-0.20 (K/uL) Final Performing Location [facility] [place] [address]
--- OUTSIDE RECORDS SUMMARY | 2023-04-22 13:29 | External Medical Summary | Summary of Care ---
Author Name Unknown Organization [facility] Address [address] [place] [address] Phone [phone] Care Team Providers Care House Repairer Name Role Phone Jairo Kingston MD Primary Care Provider [phone]- [phone] Reason for Visit * Reason Comments Infusion Venofer Encounter Details Date Type Department Care Team (Latest Contact Info) Description 04/05/2023 2:30 PM EST Hem/Onc Treatment Hematology/Oncology Treatment, [place] 200 [facility] [place] [address] Hannah, Chair 10 Hem Onc [facility] 200 [place] [address] Iron deficiency anemia due to chronic blood loss* Allergies Active Allergy Reactions Criticality Noted Date Comments Pavan Inhibitors Other (Please comment) 0 Hyperkalemia documented as of this encounter (statuses as of 04/05/2023) Medications Medication Sig Dispensed Refills Start Date [...] 0.1 % Nasal Solution (Astelin) Administer 1 [place] into nostril in the morning and 1 [place] before bedtime. 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 12/14/2022 History of biliary stent insertion 12/08/2022 GI bleed 12/08/2022 Benign hypertensive kidney disease, stage IV Last Assessment & Plan: Norisaiahcjuanpressor History of supraventricular tachycardia 11/12/19 Idiopathic chronic gout of foot without tophus 0 11/11/2022 Last Assessment & Plan: Allopurinol chcf No new attacks GINNY on CPAP 11/11/2022 [...] as of this encounter (statuses as of 04/05/2023) Resolved Problems Problem Noted Date Diagnosed Date [...] as of this encounter (statuses as of 04/05/2023) Immunizations Name Administration Dates Next Due COVID-19 [...] Sign Reading Time Taken Comments Blood Pressure 154/82 04/05/2023 3:47 PM EST Pulse 70 04/05/2023 3:47 PM EST Temperature 36.3 C (97.4 F) 04/05/2023 3:47 PM ES T Respiratory Rate 18 04/05/2023 3:47 PM EST Oxygen Saturation 91% 04/05/2023 3:47 PM EST Inhaled Oxygen Concentration - - Weight - - Height - - Body Mass Index - - documented in this encounter Nursing Notes * Nyla Barajas LPN - 04/05/2023 3:47 PM EST 1445: Pt arrived for Venofer infusion. PIV in LFA. Pt tolerated well. Labs drawn from IV site. VSS.No complaints at this time. 1625: Pt tolerated Venofer infusion well. PIV removed intact. Pt to return in 2 weeks. Discharged in stable condition. documented in this encounter Plan of Treatment Upcoming Encounters Date Type Department Care Team (Late st Contact Info) Description 04/22/2023 2:30 PM EST Hem/Onc Treatment [facility] [place] [address] [facility] [address] Hannah, Chair [address] [facility] [address] [place] [address] [place] [address] 05/04/2023 11:00 AM EST [facility] [address] [facility] [place] [address] Jenifer Linder, RN [address] [place] [address] 05/06/2023 2:30 PM EST Hem/Onc Treatment [facility]ematology[facility], [place] [address] [facility] [address] Hannah, Chair [address] [facility] [address] [place] [address] [place] [address] 05/06/2023 4:30 PM EST Laboratory Laboratory [facility] [place] [address] [place] [address] [phone] Hannah, Lab Scenery [address] [place] [address] [address] 05/13/2023 4:30 PM EST Laboratory Laboratory [facility] [place] [address] [address] [place] [phone] Park, Lab [facility] 200 [facility] [place], [place] [address] 05/20/2023 9:15 AM EST Office Visit Hematology/Oncology [facility] [place] [address] [place] [address] Michael Snyder MD 200 [facility] [place], [place] [address] 05/20/2023 9:45 AM EST Hem/Onc Treatment Hematology/Oncology Treatment, [place] 200 [place] [address] Hannah, Chair 10 Hem Onc [address] [place], [place] [address] 06/02/2023 2:30 PM EST Office Visit Cardiology, [facility] [address] [place] [place] [address] Ghanshyam Osorio PA-Renetta [address] [place] [address] 06/03/2023 2:30 PM EST Hem/Onc Treatment Hematology/Oncology Treatment, [place] [address] [facility] [place] [address] Hannah, Chair 10 Hem Onc [address] [place], [place] [address] 10/10/2023 9:00 AM EDT Office Visit [facility] [address] [place] [phone] Jairo Kingston MD [address] [place] [address] 12/13/2023 3:00 PM EDT Office Visit Nephrology, [facility] 200 [facility] [place], [place] [address] Reggie Azevedo MD 200 [facility] [place], [place] [address] 02/08/2024 11:30 AM EDT Appointment Radiology, [place] [address] [place] [address] 02/08/2024 12:15 PM EDT Office Visit Vascular Surg [facility], [place] [address] [place] [address] Mikhail Suazo MD [address] [place] [address] 03/28/2024 3:20 PM EST Office Visit Sleep Disorders Ctr [facility] [address] [place] [address] Shanika Fitzgerald, [address] [facility] [address] Pending Results Name Type Priority Associated Diagnoses Date /Time FERRITIN Lab STAT Iron deficiency anemia due to chronic blood loss 04/05/2023 2:35 PM EST IRON SCREEN, INCLUDING TIBC Lab STAT Iron deficiency anemia due to chronic blood loss 04/05/2023 2:35 PM EST Scheduled Procedures Name Priority Associated Diagnoses Date/Ti [...] exists LUNG CANCER SCREENING - USE SMARTSET [id number] Completed 01/27/2023, 06/25/2022, 02/08/2019, Additional history exists [...] this encounter Medical Devices Implanted Type Area Yarn Dry Room Worker Device Identifier Shelf Expiration Date Model / Serial / Lot Graft Hemasheild 20mm [id number] - [id number] Implanted:Qty: 1 on 01/13/2009 at [place] [facility] [place]/A: Abdomen MICROVASIVE [id number] / / [id number] Stent Axios [id number] - [id number] Implanted:Qty: 1 on 12/10/2022 by Lacie England MD at OR [facility] [employer] : ENDOSCOPY [id number] 04/06/2023 [id number] / / [id number] documented as of this encounter Procedures Procedure Name Priority Date/Time Associated Diagnosis Comments DIFFERENTIAL, AUTOMATED STAT 04/05/2023 2:35 PM EST Iron deficiency anemia due to chronic blood loss CBC STAT 04/05/2023 2:35 PM EST Iron deficiency anemia due to chronic blood loss CBC STAT 04/05/2023 2:35 PM EST Iron deficiency anemia due to chronic blood loss documented in this encounter Results * (ABNORMAL) DIFFERENTIAL, AUTOMATED (04/05/2023 2:35 PM EST) WBC 8.13 4.00 - 10.80 K/uL 04/05/2023 3:01 PM EST [facility] 56-02 Neutrophils % 68.2 40.0 - 75.0 % 04/05/2023 3:01 PM EST [facility] 56-02 Lymphocytes % 15.6(L) 18.0 - 42.0 % 04/05/2023 3:01 PM EST [facility] 56-02 Monocytes % 10.2 1.0 - 11.0 % 04/05/2023 3:01 PM EST [facility] 56-02 Eosinophils % 5.4 0.0 - 6.0 % 04/05/2023 3:01 PM EST [facility] 56-02 Basophils % 0.6 0.0 - 2.0 % 04/05/2023 3:01 PM EST [facility] 56-02 Absolute Neutrophils 5.54 1.80 - 7.70 K/uL 04/05/2023 3:01 PM EST [facility] 56-02 Absolute Lymphocytes 1.27 1.00 - 4.80 K/ul 04/05/2023 3:01 PM EST [facility] 56-02 Absolute Monocytes 0.83 0.00 - 1.10 K/uL 04/05/2023 3:01 PM EST [facility] 56-02 Absolute Eosinophils 0.44 0.00 - 0.70 K/uL 04/05/2023 3:01 PM EST [facility] 56-02 Absolute Basophils 0.05 0.00 - 0.20 K/uL 04/05/2023 3:01 PM EST [facility] 56 Blood Venous blood specimen / Unknown Venipuncture / Unknown 04/05/2023 2:35 PM EST 04/05/2023 2:58 PM EST Sheri Heredia Valentin [facility] [address] [place] [address] * (ABNORMAL) CBC (04/05/2023 2:35 PM EST) WBC 8.13 4.00 - 10.80 K/uL 04/05/2023 3:[address] RBC 3.72 4.50 - 5.25 M/uL 04/05/2023 3:[address] HGB 11.3(L) 14.0 - 16.8 g/dL 04/05/2023 3:[address] HCT 36.7(L) 40.0 - 48.4 % 04/05/2023 3:01 PM [facility] 56 MCV 98.7 82.0 - 99.5 fL 04/05/2023 3:01 PM [facility] 56 MCH 30.4 27.0 - 34.0 pg 04/05/2023 3:01 PM [facility] 56 MCHC 30.8 32.0 - 36.0 g/dL 04/05/2023 3:01 PM [facility] 56 RDW 18.5 11.5 - 15.5 % 04/05/2023 3:01 PM [facility] 56 PLT 201 140 - 400 K/uL 04/05/2023 3:01 PM [facility] 56 MPV 10.4 6.6 - 11.1 fL 04/05/2023 3:01 PM [facility] 56 Blood Venous blood specimen / Unknown Venipuncture / Unknown 04/05/2023 2:35 PM EST 04/05/2023 2:58 PM EST Sheri Heredia Valentin [facility] [address] [place] [address] documented in this encounter Visit Diagnoses Diagnosis Iron deficiency anemia due to chronic blood loss- Primary Iron 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 (chronic) documented in this encounter Administered Medications Active Administered Medications - up to 3 most recent administrations Medication Order MAR Action Action Date Dose Rate Site diphenhydrAMINE (Benadryl) inj 50 mg 50 mg, IV Push, ONCE PRN Other, Hypersensitivity Reaction, Starting on Tue04/05/23 at 1449, Until Tue04/06/23 at 1448, For 24 hours EPINEPHrine 1 MG/ML inj 0.3 mg 0.3 mg, Intramuscular, ONCE PRN Other, Hypersensitivity Reaction or Anaphylaxis, Starting on Tue04/05/23 at 1449, Until Tue04/06/23 at 1448, For 24 hours hEParin 100 UNIT/ML Lock Flush inj 500 Units 500 Units (5 mL), IV Lock, PRN Other, IV Flush, Starting on Tue04/05/23 at 1449, Until Tue04/06/23 at 1448, For 24 hours, Do not flush if lock, PICC, or central line not in place; IV infusing or unable to flush. Hydrocortisone Sod Suc (PF) (Solu-Cortef) inj 100 mg 100 mg, IV Push, ONCE PRN Other, Hypersensitivity Reaction, Starting on Tue04/05/23 at 1449, Until Tue04/06/23 at 1448, For 24 hours NSS infusion 500 mL, Intravenous, at 50 mL/hr, CONTINUOUS, Starting on Tue04/05/23 at 1600, Until Tue04/06/23 at 0159 Start Infusion 04/05/2023 2:49 PM EST 500 mL 50 mL/hr oxygen GAS Inhalation, OXYGEN, First dose on Tue04/05/23 at 1600, Until Discontinued, Device/Managed by: Low Flow Device, Goal SPO2 (%): 91-95, Starting Device: Nasal Cannula, Initial Flow Rate (LPM): 2, Lowest Support: Nasal Cannula: Flow 0-6 LPM. Titrate up/down by 1 LPM., Higher Support: Non-Rebreather (NRB) Mask: Minimum of 10 LPM. Titrate to maintain bag inflation., Titration Interval: Q2 minutes and as needed., Notify Provider: For sudden DECREASE in resting SPO2 to less than 85% and when escalating delivery device. sodium chloride 0.9 % flush central line 10 mL 10 mL, IV Push, PRN Other, IV Flush, Starting on Tue04/05/23 at 1449, Until Tue04/06/23 at 1448, For 24 hours, Do not flush if lock, PICC, or central line not in place; IV infusing or unable to flush. Inactive Administered Medications - up to 3 most recent administrations Medication Order MAR Action Action Date Dose Rate Site Iron Sucrose (Venofer) 300 mg in NSS 250 mL ivpb 300 mg, IV Piggyback, ONCE, 1 dose, On Tue04/05/23 at 1630, Administer over 90 Minutes Start Infusion 04/05/2023 2:50 PM EST 300 mg 166.67 mL/hr documented in this encounter Advance Directives Documents on File Type Date Recorded Patient Pony Trimmer Expl anation Power of Town Clerk 07/30/2022 POWER OF A TTORNEY Latest Code [...] and were consensually agreed upon. Care Teams House Repairer Relationship Specialty Start Date End Date Jairo Kingston MD [address] [place], [place] [id number] PCP - General 12/21/05 documented as of this encounter
--- OUTSIDE RECORDS SUMMARY | 2023-04-22 13:29 | External Medical Summary ---
Author Name Unknown Address Unknown Organization K09:[facility] [place] [address] Laboratory Report Ordering Provider Test Date Status CYNDI LOPEZ 04/20/2023 16:34:39 Final Observation Date Value Abnormality Reference (Units ) Status WBC, Total 04/20/2023 16:34:39 14.87 Above high normal 4 .00-10.80 (K/uL) Final RBC 04/20/2023 16:34:39 3.39 4.50-5.25 (M/uL) Final Hemoglobin 04/20/2023 16:34:39 10.3 Below low normal 14 .0-16.8 (g/dL) Final HCT 04/20/2023 16:34:39 33.1 Below low normal 40. 0-48.4 (%) Final MCV 04/20/2023 16:34:39 97.6 82.0-99.5 (fL) Final MCH 04/20/2023 16:34:39 30.4 27.0-34.0 (pg) Final MCHC 04/20/2023 16:34:39 31.1 32.0-36.0 (g/dL) Final RDW 04/20/2023 16:34:39 17.5 11.5-15.5 (%) Final Platelets 04/20/2023 16:34:39 271 140-400 (K /uL) Final MPV 04/20/2023 16:34:39 9.6 6.6-11.1 ( fL) Final Performing Location [facility] [place] [address]
--- OUTSIDE RECORDS SUMMARY | 2023-04-22 13:29 | External Medical Summary ---
Author Name Unknown Address Unknown Organization K01:[facility] - [address] [place] [address] Laboratory Report Ordering Provider Test Date Status AIRAMLOLLY 04/05/2023 14:35:40 Final Observation Date Value Abnormality Reference (Units ) Status Ferritin 04/05/2023 14:35:40 214 30-400 (ng /mL) Final Performing Location [facility] - [address] [place] [address]
--- OUTSIDE RECORDS SUMMARY | 2023-04-22 13:30 | External Medical Summary | Summary of Care ---
Author Name Unknown Organization [facility] Address [address] [address] Phone [phone] Care Team Providers Care Tactical Air Defense Controller Name Role Phone Jairo Kingston MD Primary Care Provider [phone]- [phone] Reason for Visit * Reason Onset Date Comments [facility]: Maintenance 04/01/2023 Encounter Details Date Type Department Care Team (Late st Contact Info) Description 04/01/2023 Telephone [facility], [facility] [address] [employer] [address] [place] [address] Jenifer Linder RN [address] [place] [address] [facility]: Maintenance Allergies Active Allergy Reactions Criticality Noted Date Comments Pavan Inhibitors Other (Please comment) 0 Hyperkalemia documented as of this encounter (statuses as of 04/01/2023) Medications Medication Sig Dispensed Refills Start Date [...] 0.1 % Nasal Solution (Astelin) Administer 1 [place] into nostril in the morning and 1 [place] before bedtime. 30 mL 1 01/11/2023 Active [...] 6 doses. 6 Kit 0 01/24/2023 Active Trelegy Ellipta 100-62.5-25 MCG/ACT Aerosol Powder Breath Activated (Fluticasone-Umeclidi nium-Vilanterol) Inhale one puff daily 180 Each 0 02/03/2023 Active Ezetimibe 10 MG Oral Tablet (Zetia)Indications:Dy slipidemia, goal LDL below 70 TAKE ONE TABLET BY MOUTH EVERY MORNING 90 Tablet 3 02/04/2023 4 Active Metoprolol Tartrate 25 MG Oral Tablet (Lopressor) Take 1 Tablet by mouth in the morning and 1 Tablet before bedtime. 100 Tablet 3 02/14/2023 Active documented as of this encounter (statuses as of 04/01/2023) Active Problems Problem Noted Date Diagnosed Date [...] 0 11/11/2022 Last Assessment & Plan: Allopurinol halfway No new attacks GINNY on CPAP 11/11/2022 [...] as of this encounter (statuses as of 04/01/2023) Resolved Problems Problem Noted Date Diagnosed Date [...] as of this encounter (statuses as of 04/01/2023) Immunizations Name Administration Dates Next Due COVID-19 [...] encounter Miscellaneous Notes * Telephone Encounter - Jenifer Linder RN - 04/01/2023 3:43 PM EST I will let him know. Thank you! * Telephone Encounter - Jairo Kingston MD - 04/01/2023 12:48 PM EST Last potassium level was good and may not need as much with kidney function. Would keep the dose the same. * Telephone Encounter - Jenifer Linder RN - 04/01/2023 10:01 AM EST Good morning, Pt seen for home visit Reviewing meds with pt and he is still taking Klor-Con 10 mEq every --. His furosemide has been increased to twice daily but klor con was never increased. Do you think he should increase the potassium to daily or twice daily? If so, can you please send a new script to [facility] mail order? Thank you! documented in this encounter Plan of Treatment Upcoming Encounters Date Type Department Care Team (Late st Contact Info) Description 04/05/2023 2:30 PM EST Hem/Onc Treatment Hematology/Oncology Treatment, [place] [address] [place] [address] Hannah, Chair 10 Hem Onc [address] [place] [address] 05/04/2023 11:00 AM EST Home Visit [facility], [facility] [address] [facility] [address] Jenifer Linder, RN [facility] [address] 05/06/2023 4:30 PM EST Laboratory Laboratory [facility] [place] [address] [place] [phone] Hannah, Lab [address] [facility] [place] [address] 05/13/2023 4:30 PM EST Laboratory Laboratory [facility] [place] [address] [place] [phone] Park, Lab [address] 200 [facility] [place] [address] 05/20/2023 9:15 AM EST Office Visit Hematology/Oncology [facility] [place] 200 [facility] [place] [address] Michael Snyder MD 200 [facility] [place] [address] 06/02/2023 2:30 PM EST Office Visit Cardiology, [facility] [address] [facility] [place] [address] Ghanshyam Osorio PA-C 132 [facility] [place] [address] 10/10/2023 9:00 AM EDT Office Visit [place] [address] [place] [phone] Jairo Kingston MD [address] [place] [address] 12/13/2023 3:00 PM EDT Office Visit Nephrology, [facility] 200 [facility] [place] [address] Reggie Azevedo MD 200 [facility] [place] [address] 02/08/2024 11:30 AM EDT Appointment Radiology, [address] [phone] 02/08/2024 12:15 PM EDT Office Visit Vascular Surg [facility], [address] [phone] Mikhail Suazo MD [facility] [address] [place], [place] [phone] 03/28/2024 3:20 PM EST Office Visit [facility] Disorders Ctr [facility] [address] [facility] [place] [address] Fitzgerald Shanika Chairez, [address] [place] [address] Scheduled Procedures Name Priority Associated Diagnoses Date/Ti [...] 02/22/2023, 11/17, 12/31/2021, Additional history exists Hgb 03/22/2024 03/22/2023, 10/2022, 02/09/2023, Additional history exists COLONOSCOPY-EVERY 5 YRS AGES [...] exists LUNG CANCER SCREENING - USE SMARTSET [id number] Completed 01/27/2023, 06/25/2022, 02/08/2019, Additional history exists [...] this encounter Medical Devices Implanted Type Area Plate Developer Device Identifier Shelf Expiration Date Model / Serial / Lot Graft Hemasheild 20mm [id number] - [id number] Implanted:Qty: 1 on 01/13/2009 at [place] [facility] [place] N/A: Abdomen MICROVASIVE [id number] / / [id number] Stent Axios [id number] - [id number] Implanted:Qty: 1 on 12/10/2022 by Lacie England MD at [facility] [employer] : ENDOSCOPY [id number] 04/06/2023 [id number] / / [id number] documented as of this encounter Advance Directives Documents on File Type Date Recorded Patient Bingo Manager Expl anation Power of Radiator Core Tester 07/30/2022 POWER OF A TTORNEY Latest Code [...] and were consensually agreed upon. Care Teams Tactical Air Defense Controller Relationship Specialty Start Date End Date Jairo Kingston MD [address] [place] [address] PCP - General 12/21/05 documented as of this encounter
--- OUTSIDE RECORDS SUMMARY | 2023-04-22 13:30 | External Medical Summary | Summary of Care ---
Author Name Unknown Organization [facility] Address [address] [place] [address] Phone [phone] Care Team Providers Care Supervisor Broadloom Name Role Phone Jairo Kingston MD Primary Care Provider +1- [phone] Reason for Visit * Reason Onset Date Comments Advice 03/22/2023 Encounter Details Date Type Department Care Team (Late st Contact Info) Description 03/22/2023 Telephone Hematology/Oncology Treatment, [place] [address] [place] [address] Michael Snyder MD [address] [place] [address] Advice Allergies Active Allergy Reactions Criticality Noted Date [...] 0.1 % Nasal Solution (Astelin) Administer 1 [place] into nostril in the morning and 1 [place] before bedtime. 30 mL 1 01/11/2023 Active [...] stage IV Last Assessment & Plan: Norvasc, juanpressor History of supraventricular tachycardia 11/12/19 Idiopathic chronic gout of foot without tophus 0 11/11/2022 Last Assessment & Plan: Allopurinol terminal operations manager No new attacks GINNY on CPAP 11/11/2022 [...] encounter Miscellaneous Notes * Telephone Encounter - Britt Landry OSA - 04/01/2023 9:46 AM EST Rescheduled as requested. * Telephone Encounter - Kassy Rojas RN - 04/01/2023 9:14 AM EST Scheduling: please move lab appt from 05/04 to 05/06 after 4pm. Thanks! * Telephone Encounter - Ksasy Rojas RN - 03/25/2023 12:32 PM EST MyG sent. * Telephone Encounter - Michael Snyder MD - 03/24/2023 11:51 AM EST I reviewed blood workup done on 03/22/2023: -WBC 7400, H&H of 35.8, Platelet count of 033998 Hemoglobin was around 9.9 earlier on 02/22/2023. Improvement of the hemoglobin level noted, slight drop in the Platelet count noted We can repeat another CBCD in about 2 weeks time. Earlier in December 2022, we decided to continue IV iron therapy in the form of Venofer every other week and will continue that. I would not start erythropoietin therapy at this time. * Telephone Encounter - Stephanie Jack RN - 03/22/2023 4:12 PM EST Pt presented to clinic for Venofer infusion today. Pt's daughter was present for appointment, and expressed concern over recent drop in Plt (128 on 03/24/23). Pt is also inquiring about restarting Aranesp versus continuing iron infusions. Dr. Snyder: please advise and contact pt's daughter Salina Estevez with update. documented in this encounter Plan of Treatment Upcoming Encounters Date Type Department Care Team (Late st Contact Info) Description 04/01/2023 10:00 AM EST [facility] Visit [facility], [address] [place] [address] Jenifer Linder RN [address] [place] [address] 04/05/2023 2:30 PM EST [facility] [address] [place], [place] [address] Hannah, Chair 10 Hem Onc [place] [address] [place] [address] 05/06/2023 4:30 PM EST Laboratory Laboratory [facility] [address] [place], [place] [address] Hannah, Lab Scenery [address] [place], [place] [address] 05/13/2023 4:30 PM EST Laboratory Laboratory [facility] [address] [place], [place] [phone] Hannah, Lab Scenery [address] [place], [place] [address] 05/20/2023 9:15 AM EST Office Visit Hematology/Oncology [facility] [address] [place], [place] [address] Michael Snyder MD [address] [place], [place] [address] 06/02/2023 2:30 PM EST Office Visit Cardiology, [facility] [address] [place] [address] Ghanshyam Osorio PA-C [address] [place] [address] 10/10/2023 9:00 AM EDT Office Visit [facility] [address] [place] [phone] Jairo Kingston MD [address] [place] [address] 12/13/2023 3:00 PM EDT Office Visit Nephrology, Yuliet Young 200 [facility] [place], [place] [address] Reggie Azevedo MD 200 [facility] [place] [address] 02/08/2024 11:30 AM EDT Appointment Radiology, [place] [address] [place] [address] 02/08/2024 12:15 PM EDT Office Visit [facility], [place] [address] [place], [place] [phone] Mikhail Suazo MD [address] [place], [place] [address] 03/28/2024 3:20 PM EST Office Visit [facility] Yasmeen Solorzano [place] [address] [place] [phone] Shanika Fitzgerald DO [address] [place] [address] Scheduled Procedures Name Priority Associated Diagnoses Date/Ti [...] exists LUNG CANCER SCREENING - USE SMARTSET 74010 Completed 01/27/2023, 06/25/2022, 02/08/2019, Additional history exists [...] this encounter Medical Devices Implanted Type Area Fitness Services Manager Device Identifier Shelf Expiration Date Model / Serial / Lot Graft Hemasheild 20mm [id number] - [id number] [place] [facility] [place] Abdomen MICROVASIVE [id number] / / [id number] Stent Axios [id number] - [id number] Implanted:Qty: 1 on 12/10/2022 by Lacie England MD at OR [facility] : ENDOSCOPY [id number] 04/06/2023 [id number] / / [id number] documented as of this encounter Advance Directives Documents on File Type Date Recorded Patient Airconditioning Engineer Expl anation Power of Telephone Station Repairer 07/30/2022 POWER OF A TTORNEY Latest Code [...] and were consensually agreed upon. Care Teams Supervisor Broadloom Relationship Specialty Start Date End Date Jairo Kingston MD [address] [place] [address] PCP - General 12/21/05 documented as of this encounter
--- OUTSIDE RECORDS SUMMARY | 2023-04-22 13:30 | External Medical Summary | Summary of Care ---
Author Name Unknown Organization [facility] Address [address] [place] [address] Phone [phone] Care Team Providers Care Mottler Operator Name Role Phone Jairo Kingston MD Primary Care Provider +1- [phone] Reason for Visit * Reason Onset Date Comments Advice 03/22/2023 Encounter Details Date Type Department Care Team (Late st Contact Info) Description 03/22/2023 Telephone Hematology/Oncology Treatment, [place] [address] [place] [address] Michael Snyder MD [address] [place] [address] Advice Allergies Active Allergy Reactions Criticality Noted Date Comments Pavan Inhibitors Other (Please comment) 0 Hyperkalemia documented as of this encounter (statuses as of 03/25/2023) Medications Medication Sig Dispensed Refills Start Date [...] 0.1 % Nasal Solution (Astelin) Administer 1 [place] into nostril in the morning and 1 [place] before bedtime. 30 mL 1 01/11/2023 Active [...] as of this encounter (statuses as of 03/25/2023) Active Problems Problem Noted Date Diagnosed Date [...] 0 11/11/2022 Last Assessment & Plan: Allopurinol termination clerk No new attacks GINNY on CPAP 11/11/2022 [...] as of this encounter (statuses as of 03/25/2023) Resolved Problems Problem Noted Date Diagnosed Date [...] as of this encounter (statuses as of 03/25/2023) Immunizations Name Administration Dates Next Due COVID-19 mRNA, LNP-s, No Pre serve, 2-Dose Series (Moderna) 02/19/2021,06/19/2020,05/22/2020 DT - Diptheria/Tetanus (PEDS) 06/11/2002 Pneumococcal Conjugate Vacc, 13 Valent (Prevnar) 06/12/2015 Pneumococcal Polysaccharide PPV23 (Pneumovax) 06/10/2014 SEASONAL INFLUENZA, PF, 6 M & Above, IM , (FLULAVAL or FLUZONE) 12/29/2019,02/06/2019,02/27/2018 Seasonal Influenza, Quadriva lent Hd (Fluzone [...] encounter Miscellaneous Notes * Telephone Encounter - Kassy Rojas RN - 03/25/2023 12:32 PM EST MyG sent. * Telephone Encounter - Michael Snyder MD - 03/24/2023 11:51 AM EST I reviewed blood workup done on 03/22/2023: -WBC 7400, H&H of 35.8, Platelet count of 667131 Hemoglobin was around 9.9 earlier on 02/22/2023. [...] Description 04/01/2023 10:00 AM EST Home Visit [facility], [facility] [address] [facility] [place] [address] Jenifer Linder RN 132 [facility] [place] [address] 04/05/2023 2:30 PM EST Hem/Onc Treatment Hematology/Oncology Treatment, [place] [address] [place] [address] Hannah, Chair [address] Hem [address] [place] [address] 05/04/2023 11:30 AM EST Laboratory Laboratory [facility] [place] Yamilex Young [address] [place] [address] [place] [phone] Tacos Young [facility] 200 [facility] [place] [address] 05/13/2023 8:15 AM EST Office Visit [facility]ology[facility] [place] [address] [place] [address] Michael Snyder MD 200 [facility] [place] [address] 06/02/2023 2:30 PM EST Office Visit [facility]iology, [facility] [place] [address] Ghanshyam Osorio PA-Ren[place] [facility] [place] [address] 10/10/2023 9:00 AM EDT Office Visit [facility] [address] [place] [phone] Jairo Kingston MD [address] [place] [address] 12/13/2023 3:00 PM EDT Office Visit Nephrology, [facility] [address] [facility] [address] [place], [place] [address] Reggie Azevedo MD 200 [facility] [place] [address] 02/08/2024 11:30 AM EDT Appointment Radiology, [place] [address] [place] [phone] 02/08/2024 12:15 PM EDT Office Visit Vascular Surg [facility], [place] [address] [place], [place] [phone] Mikhail Suazo MD [facility] [address] [place], [place] [phone] 03/28/2024 3:20 PM EST Office Visit Sleep Disorders Ctr [facility] [address] [place] [address] Shanika Fitzgerald, [address] [place] [address] Scheduled Procedures Name Priority Associated Diagnoses Date/Ti [...] exists LUNG CANCER SCREENING - USE SMARTSET 95360 Completed 01/27/2023, 06/25/2022, 02/08/2019, Additional history exists [...] this encounter Medical Devices Implanted Type Area Ct Scan Special Procedures Technologist Device Identifier Shelf Expiration Date Model / Serial / Lot Graft Hemasheild 20mm [id number] - [id number] [place]ed:[place] [facility] [place] Abdomen MICROVASIVE [id number] / / [id number] Stent Axios [id number] - [id number] Implanted:Qty: 1 on 12/10/2022 by Lacie England MD at OR [facility] : ENDOSCOPY [id number] 04/06/2023 [id number] / / [id number] documented as of this encounter Advance Directives Documents on File Type Date Recorded Patient Scabbler Expl anation Power of Postmaster Relief 07/30/2022 POWER OF A TTORNEY Latest Code [...] and were consensually agreed upon. Care Teams Mottler Operator Relationship Specialty Start Date End Date Jairo Kingston MD [address] [place] [address] PCP - General 12/21/05 documented as of this encounter
--- OUTSIDE RECORDS SUMMARY | 2023-04-22 13:30 | External Medical Summary | Summary of Care ---
Author Name Unknown Organization [facility] Address [address] [place] [address] Phone [phone] Care Team Providers Care Ophthalmic Medical Technician Name Role Phone Jairo Kingston MD Primary Care Provider +1- [phone] Reason for Visit * Reason Comments [facility]: Maintenance Encounter Details Date Type Department Care Team (Late st Contact Info) Description 04/01/2023 10:00 AM EST [facility], [facility] [address] [place] [address] Jenifer Linder, RN [address] [place] [address] Allergies Active Allergy Reactions Criticality Noted Date [...] 0.1 % Nasal Solution (Astelin) Administer 1 [place] into nostril in the morning and 1 [place] before bedtime. 30 mL 1 01/11/2023 [...] 0 11/11/2022 Last Assessment & Plan: Allopurinol senior living No new attacks GINNY on CPAP 11/11/2022 [...] Sign Reading Time Taken Comments Blood Pressure 140/72 04/01/2023 9:42 AM EST Pulse 64 04/01/2023 9:42 AM EST Temperature 36.7 C (98 F) 04/01/2023 9:42 AM EST Respiratory Rate 18 04/01/2023 9:42 AM EST Oxygen Saturation 93% 04/01/2023 9:42 AM EST Inhaled Oxygen Concentration - - Weight - - Height - - Body Mass Index - - documented in this encounter Progress Notes * Jenifer Linder, RN - 04/01/2023 8:26 AM EST [facility] Traffic [facility] Visit Date: 04/01/2023 Time: 9:26 AM Name: Mikhail Fung : 1950 Current Concerns: Pt seen for return RNCM visit Pt reports he has been feeling well Has been getting IV iron infusions He continues to have issues with SOB 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 Cardiovascular: Rate and Rhythm: Normal rate and regular rhythm. Pulses: Normal pulses. Heart sounds: Normal heart sounds. Pulmonary: Effort: Pulmonary effort is normal. Breath sounds: Normal breath sounds. Abdominal: General: Bowel sounds are normal. Palpations: Abdomen is soft. Musculoskeletal: Right lower leg: Edema (trace) present. Left lower leg: Edema (trace) present. Skin: General: Skin is warm and dry. Neurological: Mental Status: He is alert and oriented to person, place, and time. Problems/Symptoms: Review of Systems Constitutional: Negative. HENT: Negative. Eyes: Negative. Respiratory: Positive for cough (chronic, worse in am, white to cloudy yellow mucus) and shortness of breath (CAMARENA - at baseline). Cardiovascular: Positive for leg swelling. Gastrointestinal: Negative. Genitourinary: Negative. Skin: Negative. Neurological: Negative. Psychiatric/Behavioral: Negative. Medication Reconciliation: (See medication list) Does patient take medications as ordered: Yes Patient Well Being: PHQ2/9: No questionnaires available. No change in living situation Denies falls MAH-10 Completed this Visit: No. Routine visit and No falls since last visit Advanced Care Planning: POLST. Reinforcement/Education: Educated on home safety: Create a fall proof home Clear floors of clutter, loose wires, throw rugs, and cords. Make sure halls, stairways, and entrances are well lit. Install a nightlight in your bedroom, hallway and bathroom. Install grab bars or handrails in the bathroom and on stairs. Use a non-skid tub/shower mat. Avoid climbing on a chair; instead use a step stool with a high handrail. Keep sidewalks and steps in good repair Keep steps and sidewalks free of snow and ice. Using aids to support and prevent falls If you have poor balance or have fallen in the past, consider additional support such as a cane or walker. Use a cane with good support and that is the proper length for you. Use a walker if a cane doesnt provide enough support. Avoid medications that increase the risk of falling by causing dizziness, change in sensation or slowed reflexes. Certain medicines may cause falls - blood pressure pills, heart medicines, water pills, or sleepingpills. Be sure to understand each medicine that you are taking and any side effects that may occur. Improve your balance and flexibility with muscle strengthening exercises. Ask your health care provider for some exercises that will be right for you. COPD: Pt instructed to: -Call with increased SOB, wheezing, chest tightness, increased cough, increased sputum with change in color or consistency and fever. -Wash hands often -Drink plenty of fluids -Use inhalers as directed, do not stop or skip doses -Avoid stress -Rest when tired or SOB -Avoid triggers -Clean inhalers once a week Reinforced safety education and fall prevention. and Reinforced medication regimen. Timing., Dosing., and Purspose. Treatment/Plan: Continue meds as prescribed/reviewed Oxygen at 3 l/min via nc Duoneb q 4 hrs prn Albuterol inhaler prn Keep all appts as scheduled and attend Elevate LE as much as possible Compression socks, on in am and off in pm Pulmonary f/u on 04/[address] [facility] [address] [facility] TE sent to PCP to see if potassium should be increased Home Interventions Provided: Home Intervention: Other; eval Reinforced current Plan of Care, including self-management and medication regimen Patient's 'Red Flags': Increased SOB Increased weakness/fatigue Increased cough with yellow/green sputum Patient Needs to Remember: Call [facility] at with any new or worsening health concerns or problems, red flag symptoms. Referrals Needed: Other none Follow Up: Is there cellular connectivity/connectivity in the home? Yes Does the patient have internet in the home? Yes Patient encouraged to call the intake phone number for all urgent but not emergent issues. Is the patient new to [facility] within the last 30 days? No, Assess appropriateness for upcoming telehealth visits. Cancel telehealth visits & schedule home visit with care receiving team member(s)as indicated. Provider is in agreement with Plan of Care: Yes Scheduled to follow up with patient in one month. Jenifer Linder RN 04/01/2023 9:26 AM documented in this encounter Plan of Treatment Upcoming Encounters Date Type Department Care Team (Late st Contact Info) Description 04/05/2023 2:30 PM EST Hem/Onc Treatment Hematology/Oncology Treatment, [place] [address] [place] [address] Hannah, Chair 10 Hem [facility] 200 [facility] [place] [address] 05/04/2023 11:00 AM EST [facility] 132 [facility] [place] [address] Jenifer Linder RN 132 [facility] [address] 05/06/2023 4:30 PM EST Laboratory [facility] [place] [address] [place] [phone] Hannah Lab Scenery [address] [place] [address] 05/13/2023 4:30 PM EST Laboratory Laboratory Scenery [place]avia [place] [address] [place] [phone] Hannah, Lab Scenery [address] [place] [address] 05/20/2023 9:15 AM EST Office Visit Hematology/Oncology Yuliet Young [place] 200 [facility] [place] [facility] [place] [address] Michael Snyder MD 200 [facility] [place] [facility] [place] [address] 06/02/2023 2:30 PM EST Office Visit [facility], [facility] [address] Ghanshyam Osorio PA-Renetta 132 [facility] [place] [address] 10/10/2023 9:00 AM EDT Office Visit [facility] [address] [place] [phone] Jairo Kingston MD [address] [place] [address] 12/13/2023 3:00 PM EDT Office Visit Nephrology, Yuliet Young [address] [place] [address] Reggie Azevedo MD 200 [facility] [place] [address] 02/08/2024 11:30 AM EDT Appointment Radiology, [place] [address] [place] [phone] 02/08/2024 12:15 PM EDT Office Visit [facility], [place] [address] [place] [address] Mikhail Suazo MD [address] [place], [place] [address] 03/28/2024 3:20 PM EST Office Visit [facility] Disorders Ctr [facility] 132 [facility] [place] [phone] Shanika Fitzgerald, DO [address] [place] [address] Scheduled Procedures Name Priority Associated Diagnoses Date/Ti [...] exists LUNG CANCER SCREENING - USE SMARTSET [address]56[address] Completed 01/27/2023, 06/25/2022, 02/08/2019, Additional history exists [...] this encounter Medical Devices Implanted Type Area Home Health Aide Caregiver Device Identifier Shelf Expiration Date Model / Serial / Lot Graft Hemasheild 20mm [id number] - [id number] Implanted:Qty: 1 on 01/13/[address] [facility] [place] Abdomen MICROVASIVE [id number] / / [id number] Stent Axios [id number] - [id number] Implanted:Qty: 1 on 12/10/2022 by Lacie England MD at OR [facility] : ENDOSCOPY [id number] 04/06/2023 [id number] / / [id number] documented as of this encounter Advance Directives Documents on File Type Date Recorded Patient Nurse Licensed Practical Expl anation Power of Stock Parts Inspector 07/30/2022 POWER OF A TTORNEY Latest Code [...] and were consensually agreed upon. Care Teams Ophthalmic Medical Technician Relationship Specialty Start Date End Date Jairo Kingston MD [address] [facility] [place] [address] PCP - General 12/21/05 documented as of this encounter"
--- OUTSIDE RECORDS SUMMARY | 2023-04-22 13:30 | External Medical Summary | Summary of Care ---
Author Name Unknown Organization [facility] Address [address] [place] [address] Phone [phone] Care Team Providers Care Contract Runner Name Role Phone Lalo Carias MD Primary Care Provider +1- [phone] Reason for Visit * Reason Comments Medication Refill Encounter Details Date Type Department Care Team (Late st Contact Info) Description 04/04/2023 Refill [facility] [address] [place] [address] Lalo Carias MD [address] [place] [address] Allergies Active Allergy Reactions Criticality Noted Date Comments Pavan Inhibitors Other (Please comment) 0 Hyperkalemia documented as of this encounter (statuses as of 04/04/2023) Medications Medication Sig Dispensed Refills Start Date [...] 0.1 % Nasal Solution (Astelin) Administer 1 Columbia into nostril in the morning and 1 Columbia before bedtime. 30 mL 1 3 Active [...] puff daily 180 Each 1 3 Active Trelegy Ellipta 100-62.5-25 MCG/ACT Aerosol Powder Breath Activated (Fluticasone-Umeclid inium-Vilanterol) Inhale one puff daily 180 Each 0 3 04/01/20 23 Discontinu ed(Refill) documented as of this encounter (statuses as of 04/04/2023) Active Problems Problem Noted Date Diagnosed Date [...] 0 11/11/2022 Last Assessment & Plan: Allopurinol intermediate No new attacks GINNY on CPAP 11/11/2022 [...] as of this encounter (statuses as of 04/04/2023) Resolved Problems Problem Noted Date Diagnosed Date [...] as of this encounter (statuses as of 04/04/2023) Immunizations Name Administration Dates Next Due COVID-19 [...] Telephone Encounter - Lalo Carias MD - 04/04/2023 4:19 PM ESTSigned Prescriptions: Disp Refills Trelegy Ellipta 100-62.5-25 MCG/ACT Aeroso*180 Ea*1 Sig: Inhale one puff daily Authorizing Provider: LALO CARIAS * Telephone Encounter - Lalo Carias MD - 04/04/2023 4:19 PM ESTSigned Prescriptions: Disp Refills Trelegy Ellipta 100-62.5-25 MCG/ACT Aeroso*180 Ea*1 Sig: Inhale one puff daily Authorizing Provider: LALO CARIAS * Telephone Encounter - Ami Mondragon LPN - 04/04/2023 3:36 PM ESTPending Prescriptions: Disp Refills Trelegy Ellipta 100-62.5-25 MCG/ACT Aeroso*180 Ea*0 Sig: Inhale one puff daily * Telephone Encounter - Kristen Seals CPhT - 04/04/2023 2:46 PM EST Pharmacy calling to request a refill on trelegy ellipta 100. Medication was last prescribed by Dr Mart Hatch but patient is asking if PCP can take over the medication. Please advise if this is appropriate and send to [facility] if agreeable. Thank you, Kristen Seals CphT Dairy Feed Mixing Operator III [facility]) (formerly Telepharmacy) 04/04/2023,2:47 PM documented in this encounter Plan of Treatment Upcoming Encounters Date Type Department Care Team (Late st Contact Info) Description 04/05/2023 2:30 PM EST Hem/Onc Treatment Hematology/Oncology Treatment, [place] [address] [place] [address] Hannah, Chair 10 Hem Onc [facility] 200 [place] [address] 05/04/2023 11:00 AM EST Home Visit [facility] [address] [facility] [place] [address] Jenifer Linder, RN 132 [facility] [place] [address] 05/06/2023 4:30 PM EST Laboratory Laboratory [facility] [place] [address] [place] [phone] Hannah Lab Sc[address] [facility] [place] [address] 05/13/2023 4:30 PM EST Laboratory Laboratory [facility] [place] [address] [place] [phone] [place], Lab Scenery [address] [facility] [place] [address] 05/20/2023 9:15 AM EST Office Visit Hematology/Oncology [facility] [place] [address] [place] [address] Michael Snyder MD [address] [place] [address] 06/02/2023 2:30 PM EST Office Visit Cardiology, [facility] [address] [facility] [place] [address] Ghanshyam Osorio PA-C [address] [facility] [place] [address] 10/10/2023 9:00 AM EDT Office Visit [facility] [address] [place] [phone] Lalo Carias MD [address] [place] [address] 12/13/2023 3:00 PM EDT Office Visit Nephrology, [facility] [address] [place] [address] Reggie Azevedo MD [address] [place] [address] 02/08/2024 11:30 AM EDT Appointment Radiology, [facility] [address] [place] [address] 02/08/2024 12:15 PM EDT Office Visit Vascular Surg [facility], [facility] [address] [place], [place] [phone] Mikhail Suazo MD [address] [place], [place] [phone] 03/28/2024 3:20 PM EST Office Visit [facility] Disorders Ctr [facility] [address] [facility] [place] [phone] Shanika Fitzgerald DO [address] [place] [address] Scheduled Procedures Name Priority Associated Diagnoses Date/Ti [...] exists LUNG CANCER SCREENING - USE SMARTSET [id number] Completed 01/27/2023, 06/25/2022, 02/08/2019, Additional history exists [...] this encounter Medical Devices Implanted Type Area Social Insurance Specialist Device Identifier Shelf Expiration Date Model / Serial / Lot Graft Hemasheild 20mm [id number] - [id number] Implanted:Qty: 1 on 01/13/2009 [place] [facility] [place] Abdomen MICROVASIVE [id number] / / [id number] Stent Axios [id number] - [id number] Implanted:Qty: 1 on 12/10/2022 by Lacie England MD at OR [facility] [employer] : ENDOSCOPY [id number] 04/06/2023 [id number] / / [id number] documented as of this encounter Advance Directives Documents on File Type Date Recorded Patient Laryngologist Expl anation Power of Legal Internship 07/30/2022 POWER OF A TTORNEY Latest Code [...] and were consensually agreed upon. Care Teams Contract Runner Relationship Specialty Start Date End Date Lalo Carias MD [address] [place] [address] PCP - General 12/21/05 documented as of this encounter
--- OUTSIDE RECORDS SUMMARY | 2023-04-22 13:30 | External Medical Summary | Summary of Care ---
Author Name Unknown Organization [facility] Address [address] [place] [address] Phone [phone] Care Team Providers Care Bench Worker Binding Name Role Phone Jairo Kingston MD Primary Care Provider +1- [phone] Reason for Visit * Reason Onset Date Comments Advice 03/22/2023 Encounter Details Date Type Department Care Team (Late st Contact Info) Description 03/22/2023 Telephone Hematology/Oncology Treatment, [place] [address] [place] [address] Michael Snyder MD [address] [place] [address] Advice Allergies Active Allergy Reactions Criticality Noted [...] 0.1 % Nasal Solution (Astelin) Administer 1 Burtrum into nostril in the morning and 1 Burtrum before bedtime. 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 Thanks! * Telephone Encounter - Kassy Rojas RN - 03/25/2023 12:32 PM EST MyG sent. * Telephone Encounter - Michael Snyder MD - 03/24/2023 11:51 AM EST I reviewed blood workup done on 03/22/2023: -WBC 7400, H&H of 35.8, Platelet count of 530384 Hemoglobin was around 9.9 earlier on 02/22/2023. [...] AM EST Home Visit [facility], [facility] [address] [place] [address] Jenifer Linder RN 132 [place] [address] 04/05/2023 2:30 PM EST Hem/Onc Treatment Hematology/Oncology Treatment, [place] [address] [place] [address] Hannah, Chair 10 Hem Onc [facility] [place] [address] 05/04/2023 11:30 AM EST Laboratory Laboratory [facility] Hannah [place] [address] [place] [phone] Hannah, Lab Scene [facility] COUNT INCLUD[facility] [place] [address] 05/13/2023 8:15 AM EST Office Visit Hematology/Oncology [facility] Hannah [place] [address] [place] [address] Michael Snyder MD 200 [facility] [place] [address] 06/02/2023 2:30 PM EST Office Visit [facility], [facility] [place] [address] Ghanshyam Osorio PA-C [facility] [address] 10/10/2023 9:00 AM EDT Office Visit [facility] [address] [place] [address] Jairo Kingston MD [address] [place] [address] 12/13/2023 3:00 PM EDT Office Visit Nephrology, [facility] [address] [place], [place] [address] Reggie Azevedo MD [address] [place], [place] [address] 02/08/2024 11:30 AM EDT Appointment Radiology, [address] [phone] 02/08/2024 12:15 PM EDT Office Visit Vascular Surg [facility] [address] [place] [address] Mikhail Suazo MD [address] [place] [address] 03/28/2024 3:20 PM EST Office Visit [facility] Disorders Ctr [facility] [address] [place] [address] Shanika Fitzgerald, [address] [place] [address] Scheduled Procedures Name Priority Associated Diagnoses Date/Ti [...] exists LUNG CANCER SCREENING - USE SMARTSET [id number] Completed 01/27/2023, 06/25/2022, 02/08/2019, Additional history exists [...] this encounter Medical Devices Implanted Type Area Audio Visual Production Specialist Device Identifier Shelf Expiration Date Model / Serial / Lot Graft Hemasheild 20mm [id number] - [id number] Implanted:Qty: 1 on 01/13/2009 at [place] [facility] [place] N/A: Abdomen MICROVASIVE [id number] / / [id number] Stent Axios [id number] - [id number] Implanted:Qty: 1 on 12/10/2022 by Lacie England MD at OR [facility] [employer] : ENDOSCOPY [id number] 04/06/2023 [id number] / / [id number] documented as of this encounter Advance Directives Documents on File Type Date Recorded Patient Document Control Specialist Expl anation Power of Associate Professor Of Literacy 07/30/2022 POWER OF A TTORNEY Latest Code [...] and were consensually agreed upon. Care Teams Bench Worker Binding Relationship Specialty Start Date End Date Jairo Kingston MD [address] [place] [address] PCP - General 12/21/05 documented as of this encounter
--- OUTSIDE RECORDS SUMMARY | 2023-04-22 13:31 | External Medical Summary ---
Author Name Unknown Address Unknown Organization K09[facility] [place] [address] Laboratory Report Ordering Provider Test Date Status LOLLY ALEGRIA 03/22/2023 14:31:38 Final Observation Date Value Abnormality Reference (Units ) Status WBC, Total 03/22/2023 14:31:38 7.40 4.00-10.8 0 (K/uL) Final RBC 03/22/2023 14:31:38 3.67 4.50-5.25 (M/uL) Final Hemoglobin 03/22/2023 14:31:38 11.0 Below low normal 14 .0-16.8 (g/dL) Final HCT 03/22/2023 14:31:38 35.8 Below low normal 40. 0-48.4 (%) Final MCV 03/22/2023 14:31:38 97.5 82.0-99.5 (fL) Final MCH 03/22/2023 14:31:38 30.0 27.0-34.0 (pg) Final MCHC 03/22/2023 14:31:38 30.7 32.0-36.0 (g/dL) Final RDW 03/22/2023 14:31:38 19.0 11.5-15.5 (%) Final Platelets 03/22/2023 14:31:38 128 Below low normal 140 -400 (K/uL) Final MPV 03/22/2023 14:31:38 11.6 6.6-11.1 ( fL) Final Performing Location [facility] [place] [address]
--- OUTSIDE RECORDS SUMMARY | 2023-04-22 13:31 | External Medical Summary ---
Author Name Unknown Address Unknown Organization K09[facility] [place] [address] Laboratory Report Ordering Provider Test Date Status LLOLY ALEGRIA 03/22/2023 14:31:38 Final Observation Date Value Abnormality Reference (Units ) Status SYNC LEUKOCYTES IN BLOOD BY AUTOMATED COUNT 03/22/2023 14:31:38 7.40 4.00-10.80 (K/uL) Final Segs 03/22/2023 14:31:38 61.4 40.0-75.0 (%) Final Lymphs % 03/22/2023 14:31:38 19.1 18.0-42.0 (%) Final Monos 03/22/2023 14:31:38 9.6 1.0-11.0 (%) Final Eosinophils 03/22/2023 14:31:38 9.5 Above high normal 0.0-6.0 (%) Final Basos 03/22/2023 14:31:38 0.4 0.0-2.0 (%) Final Absolute Segs 03/22/2023 14:31:38 4.55 1.80-7.70 (K/uL) Final Lymphs, absolute 03/22/2023 14:31:38 1.41 1.00-4.80 (K/ul) Final Monos, Abs 03/22/2023 14:31:38 0.71 0.00-1.10 (K/uL) Final Eos, Abs 03/22/2023 14:31:38 0.70 0.00-0.70 (K/uL) Final Basos, Abs 03/22/2023 14:31:38 0.03 0.00-0.20 (K/uL) Final Performing Location [facility] [place] [address]
--- OUTSIDE RECORDS SUMMARY | 2023-04-22 13:31 | External Medical Summary | Summary of Care ---
Author Name Unknown Organization [facility] Address [address] [place] [address] Phone [phone] Care Team Providers Care Defense Analyst Name Role Phone Jairo Kingston MD Primary Care Provider +1- [phone] Reason for Visit * Reason Onset Date Comments Advice 03/22/2023 Encounter Details Date Type Department Care Team (Late st Contact Info) Description 03/22/2023 Telephone Hematology/Oncology Treatment, [place] [address] [place] [address] Michael Snyder MD [address] [place] [address] Advice Allergies Active Allergy Reactions Criticality Noted Date Comments Pavan Inhibitors Other (Please comment) 0 Hyperkalemia documented as of this encounter (statuses as of 03/24/2023) Medications Medication Sig Dispensed Refills Start Date [...] 0.1 % Nasal Solution (Astelin) Administer 1 Thayer into nostril in the morning and 1 Thayer before bedtime. 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 [...] Care Team (Late st Contact Info) Description 03/24/2023 3:40 PM EST Office Visit [facility] Disorders Ctr [facility] [address] [place] [phone] Shanika Fitzgerald DO [address] [place] [address] 03/25/2023 10:40 AM EST Office Visit [facility] [address] [facility] [address] Jairo Kingston MD [address] [place] [address] 04/01/2023 10:00 AM EST Home Visit [facility] [address] [place] [address] Jenifer Linder RN [address] [place] [address] 04/05/2023 2:30 PM EST Hem/Onc Treatment Hematology/Oncology Treatment, [place] [address] [place], [place] [address] Hannah, Chair 10 Hem Onc [facility] 200 [facility] [place] [address] 05/04/2023 11:30 AM EST Laboratory Laboratory [facility] [place] [address] [place] [phone] Hannah Lab [facility] [address] [facility] [place] [address] 05/13/2023 8:15 AM EST Office Visit Hematology/Oncology [facility] [place] [address] [place] [address] Michael Snyder MD 200 [facility] [place] [address] 05/27/2023 2:40 PM EST Office Visit Family [facility] [address] [place] [phone] Jairo Kingston MD [address] [place] [address] 06/02/2023 2:30 PM EST Office Visit Cardiology, [facility] [place] [address] Ghanshyam Osorio PA-C 132 [facility] [address] 12/13/2023 3:00 PM EDT Office Visit Nephrology, [facility] Hannah [address] [place], [place] [address] Reggie Azevedo MD [address] [place] [address] 02/08/2024 11:30 AM EDT Appointment Radiology, [address] [place] [phone] 02/08/2024 12:15 PM EDT Office Visit Vascular Surg [facility] [address] [place] [address] Mikhail Suazo MD [address] [place] [address] Scheduled Procedures Name Priority Associated Diagnoses Date/Ti [...] exists LUNG CANCER SCREENING - USE SMARTSET [id number] Completed 01/27/2023, 06/25/2022, 02/08/2019, Additional history exists [...] this encounter Medical Devices Implanted Type Area Scrap Crusher Device Identifier Shelf Expiration Date Model / Serial / Lot Graft Hemasheild 20mm [id number] - [id number] Implanted:Qty: 1 on 01/13/2009 at [place] [facility] [place] N/A: Abdomen MICROVASIVE [id number] / / [id number] Stent Axios [id number] - [id number] Implanted:Qty: 1 on 12/10/2022 by Lacie England MD at OR [facility] [place] [employer] : ENDOSCOPY [id number] 04/06/2023 [id number] / / [id number] documented as of this encounter Advance Directives Documents on File Type Date Recorded Patient Vice President Lending Expl anation Power of Brine Supervisor 07/30/2022 POWER OF A TTORNEY Latest Code [...] and were consensually agreed upon. Care Teams Defense Analyst Relationship Specialty Start Date End Date Jairo Kingston MD [address] [facility] [place] [address] PCP - General 12/21/05 documented as of this encounter
--- OUTSIDE RECORDS SUMMARY | 2023-04-22 13:31 | External Medical Summary | Summary of Care ---
Author Name Unknown Organization [facility] Address [address] [facility] [address] Phone [phone] Care Team Providers Care Bail Bonding Agent Name Role Phone Jairo Kingston MD Primary Care Provider +1- [phone] Reason for Visit * Reason Comments IV Therapy Venofer. Encounter Details Date Type Department Care Team (Latest Contact Info) Description 03/22/2023 2:15 PM EST Hem/Onc Treatment Hematology/Oncology Treatment, [place] [address] [place] [address] Park, Chair 1 Hem Onc [facility] [address] [place] [address] Iron deficiency anemia due to chronic blood loss* Allergies Active Allergy Reactions Criticality Noted Date Comments Pavan Inhibitors Other (Please comment) 0 Hyperkalemia documented as of this encounter (statuses as of 03/22/2023) Medications Medication Sig Dispensed Refills Start Date [...] 0.1 % Nasal Solution (Astelin) Administer 1 [place] into nostril in the morning and 1 [place] before bedtime. 30 mL 1 01/11/2023 Active [...] as of this encounter (statuses as of 03/22/2023) Active Problems Problem Noted Date Diagnosed Date [...] 0 11/11/2022 Last Assessment & Plan: Allopurinol custodial No new attacks GINNY on CPAP 11/11/2022 [...] 2018), basal cell carcinoma (L shoulder/upper back 2019, R shoulder 12/2019, L lateral proximal pretibial [...] as of this encounter (statuses as of 03/22/2023) Resolved Problems Problem Noted Date Diagnosed Date [...] as of this encounter (statuses as of 03/22/2023) Immunizations Name Administration Dates Next Due COVID-19 [...] Sign Reading Time Taken Comments Blood Pressure 144/73 03/22/2023 2:30 AM EST Pulse 71 03/22/2023 2:30 AM EST Temperature 36.6 C (97.9 F) 03/22/2023 2:30 AM ES T Respiratory Rate 18 03/22/2023 2:30 AM EST Oxygen Saturation 94% 03/22/2023 2:30 AM EST Inhaled Oxygen Concentration - - Weight - - Height - - Body Mass Index - - documented in this encounter Nursing Notes * oSnali Andrade RN - 03/22/2023 4:15 PM EST Goals: Patient will remain free from injury. Possible barriers to meeting goals: Fall risk d/t ambulation with IV pool. Stability of the patient: Moderately stable - low risk of patient condition declining or worsening Summary regarding today's goals: Met: Patient remained free of injury. Patient tolerated procedure well. Discharged in stable condition. * Sonali Andrade RN - 03/22/2023 2:44 PM EST Chair 5. Patient arrived with no new complaints since last treatment. Safety and Risk for Injury Patient will remain free from injury. Ensure appropriate safety devices are available. Provide and maintain safe environment. documented in this encounter Plan of Treatment Upcoming Encounters Date Type Department Care Team (Late st Contact Info) Description 03/24/2023 3:40 PM EST Office Visit Sleep Disorders Ctr [facility] 132 [facility] [place] [phone] Shanika Fitzgerald DO 132 [facility] [place] [address] 03/25/2023 10:40 AM EST [facility] [address] [facility] [address] Jairo Kingston MD [address] [place] [address] 04/01/2023 10:00 AM EST Home Visit [facility] [address] [place] [address] Jenifer Linder RN [address] [place] [address] 04/05/2023 2:30 PM EST Hem/Onc Treatment Hematology/Oncology Treatment, [place] [address] [place], [place] [address] [place], Chair 10 Hem Onc [facility] 200 [facility] [place], [place] [address] 05/04/2023 11:30 AM EST Laboratory Laboratory [facility] Hannah [place] [address] [place], [place] [phone] [place], Lab [place] 200 [facility] [place] [place] [address] 05/13/2023 8:15 AM EST Office Visit Hematology/Oncology [facility] [place] [address] [place], [place] [address] Michael Snyder MD 200 [facility] [place], [place] [address] 05/27/2023 2:40 PM EST Office Visit [facility] [address] [place] [address] Jairo Kingston MD [address] [place] [address] 06/02/2023 2:30 PM EST Office Visit Cardiology, [facility] [address] Ghanshyam Osorio PA-C [facility] [address] 12/13/2023 3:00 PM EDT Office Visit Nephrology, [facility] [address] [place], [place] [address] Reggie Azevedo MD 200 [facility] [place], [place] [address] 02/08/2024 11:30 AM EDT Appointment Radiology, [address] [place] [address] 02/08/2024 12:15 PM EDT Office Visit Vascular Surg [facility] [place] [address] [place] [address] Mikhail Suazo MD [address] [place], [place] [id number] Pending Results Name Type Priority Associated Diagnoses Date /Time FERRITIN Lab STAT Iron deficiency anemia due to chronic blood loss 03/22/2023 2:31 PM EST IRON SCREEN, INCLUDING TIBC Lab STAT Iron deficiency anemia due to chronic blood loss 03/22/2023 2:31 PM EST Scheduled Procedures Name Priority Associated [...] exists LUNG CANCER SCREENING - USE SMARTSET [id number] Completed 01/27/2023, 06/25/2022, 02/08/2019, Additional history exists [...] this encounter Medical Devices Implanted Type Area Community Nutrition Educator Device Identifier Shelf Expiration Date Model / Serial / Lot Graft Hemasheild 20mm [id number] - [id number] Implanted:Qty: 1 on 01/13/2009 at OR [facility] N/A: Abdomen MICROVASIVE [id number] / / [id number] Stent Axios [id number] - [id number] Implanted:Qty: 1 on 12/10/2022 by Lacie England MD at OR [facility] [employer] : ENDOSCOPY [id number] 04/06/2023 [id number] / / [id number] documented as of this encounter Procedures Procedure Name Priority Date/Time Associated Diagnosis Comments DIFFERENTIAL, AUTOMATED STAT 03/22/2023 2:31 PM EST Iron deficiency anemia due to chronic blood loss CBC STAT 03/22/2023 2:31 PM EST Iron deficiency anemia due to chronic blood loss CBC STAT 03/22/2023 2:31 PM EST Iron deficiency anemia due to chronic blood loss documented in this encounter Results * (ABNORMAL) DIFFERENTIAL, AUTOMATED (03/22/2023 2:31 PM EST) WBC 7.40 4.00 - 10.80 K/uL 03/22/2023 2:36 PM EST [facility] 56-02 Neutrophils % 61.4 40.0 - 75.0 % 03/22/2023 2:36 PM EST [facility] 56-02 Lymphocytes % 19.1 18.0 - 42.0 % 03/22/2023 2:36 PM EST [facility] 56-02 Monocytes % 9.6 1.0 - 11.0 % 03/22/2023 2:36 PM EST [facility] 56-02 Eosinophils % 9.5(H) 0.0 - 6.0 % 03/22/2023 2:36 PM EST [facility] 56-02 Basophils % 0.4 0.0 - 2.0 % 03/22/2023 2:36 PM EST [facility] 56-02 Absolute Neutrophils 4.55 1.80 - 7.70 K/uL 03/22/2023 2:36 PM EST [facility] 56-02 Absolute Lymphocytes 1.41 1.00 - 4.80 K/ul 03/22/2023 2:36 PM EST [facility] 56-02 Absolute Monocytes 0.71 0.00 - 1.10 K/uL 03/22/2023 2:36 PM [facility] 56-02 Absolute Eosinophils 0.70 0.00 - 0.70 K/uL 03/22/2023 2:36 PM [facility] 56-02 Absolute Basophils 0.03 0.00 - 0.20 K/uL 03/22/2023 2:36 PM EST [facility] 56-02 Blood Venous blood specimen / Unknown Venipuncture / Unknown 03/22/2023 2:31 PM EST 03/22/2023 2:33 PM EST [facility]ri [facility] LAB BLOOD ORDER [facility] 56-[address] [place] [address] * (ABNORMAL) CBC (03/22/2023 2:31 PM EST) WBC 7.40 4.00 - 10.80 K/uL 03/22/2023 2:36 PM EST [facility] 56- RBC 3.67 4.50 - 5.25 M/uL 03/22/2023 2:36 PM EST [facility] 56- HGB 11.0(L) 14.0 - 16.8 g/dL 03/22/2023 2:36 PM EST [facility] 56- HCT 35.8(L) 40.0 - 48.4 % 03/22/2023 2:36 PM EST [facility] 56- MCV 97.5 82.0 - 99.5 fL 03/22/2023 2:36 PM EST [facility] 56- MCH 30.0 27.0 - 34.0 pg 03/22/2023 2:36 PM EST [facility] 56 MCHC 30.7 32.0 - 36.0 g/dL 03/22/2023 2:36 PM EST [facility] 56- RDW 19.0 11.5 - 15.5 % 03/22/2023 2:36 PM EST [facility] 56- PLT 128(L) 140 - 400 K/uL 03/22/2023 2:36 PM [facility] 56- MPV 11.6 6.6 - 11.1 fL 03/22/2023 2:36 PM [facility] 56- Blood Venous blood specimen / Unknown Venipuncture / Unknown 03/22/2023 2:31 PM EST 03/22/2023 2:33 PM EST [facility]ri [facility] BLOOD ORDER [facility] [address] [place] [address] documented in this encounter Visit [...] ONCE PRN Other, Hypersensitivity Reaction, Starting on Tue03/22/23 at 1411, Until Tue03/23/23 at 1410, For 24 hours EPINEPHrine 1 MG/ML inj 0.3 mg 0.3 mg, Intramuscular, ONCE PRN Other, Hypersensitivity Reaction or Anaphylaxis, Starting on Tue03/22/23 at 1411, Until Tue03/23/23 at 1410, For 24 hours hEParin 100 UNIT/ML Lock Flush inj 500 Units 500 Units (5 mL), IV Lock, PRN Other, IV Flush, Starting on Tue03/22/23 at 1411, Until Tue03/23/23 at 1410, For 24 hours, Do not flush if lock, PICC, or central line not in place; IV infusing or unable to flush. Hydrocortisone Sod Suc (PF) (Solu-Cortef) inj 100 mg 100 mg, IV Push, ONCE PRN Other, Hypersensitivity Reaction, Starting on Tue03/22/23 at 1411, Until Tue03/23/23 at 1410, For 24 hours NSS infusion 500 mL, Intravenous, at 50 mL/hr, CONTINUOUS, Starting on Tue03/22/23 at 1515, Until Tue03/23/23 at 0114 Start Infusion 03/22/2023 2:32 PM EST 500 mL 50 mL/hr oxygen GAS Inhalation, OXYGEN, First dose on Tue03/22/23 at 1600, Until Discontinued, Device/Managed by: Low [...] Push, PRN Other, IV Flush, Starting on Tue03/22/23 at 1411, Until Tue03/23/23 at 1410, For 24 hours, Do not flush if lock, PICC, or central line not in place; IV infusing or unable to flush. Inactive Administered Medications - up to 3 most recent administrations Medication Order MAR Action Action Date Dose Rate Site Iron Sucrose (Venofer) 300 mg in NSS 250 mL ivpb 300 mg, IV Piggyback, ONCE, 1 dose, On Tue03/22/23 at 1545, Administer over 90 Minutes Start Infusion 03/22/2023 2:37 PM EST 300 mg 166.67 mL/hr documented in this encounter Advance Directives Documents on File Type Date Recorded Patient Billing Control Clerk Expl anation Power of Director Product 07/30/2022 POWER OF A TTORNEY Latest Code [...] and were consensually agreed upon. Care Teams Bail Bonding Agent Relationship Specialty Start Date End Date Jairo Kingston MD [address] [place] [address] PCP - General 12/21/05 documented as of this encounter
--- OUTSIDE RECORDS SUMMARY | 2023-04-22 13:31 | External Medical Summary | Summary of Care ---
Author Name Unknown Organization [facility] Address [address] [place] [address] Phone [phone] Care Team Providers Care Lift Truck Operator Name Role Phone Jairo Kingston MD Primary Care Provider +1- [phone] Reason for Visit * Reason Onset Date Comments Follow Up 12/20/2022 Encounter Details Date Type Department Care Team (Late st Contact Info) Description 12/20/2022 Telephone [facility] [address] [place] [address] Jairo Kingston MD [address] [place] [address] Follow Up Allergies Active Allergy Reactions Criticality Noted Date Comments Pavan Inhibitors Other (Please comment) 0 Hyperkalemia documented as of this encounter (statuses as of 03/21/2023) Medications Medication Sig Dispensed Refills Start Date End Date Status oxygen GAS Use 3 L/min(Oxygen) as directed at bedtime. Use 2-3 l/min continuously to keep pulse ox above 90% 0 Active [facility] D3 50 MCG (1999) Oral Capsule (Cholecalciferol) Indications:Vitam in D deficiency TAKE 1 CAPSULE BY MOUTH [...] 4 Active Allopurinol 300 MG Oral Tablet (Zyloprim)Indicat ions:Gout TAKE ONE-HALF TABLET BY MOUTH EVERY DAY [...] 0 Active Ascorbic Acid 250 MG Oral TabletIndications :Iron deficiency anemia, unspecified iron deficiency anemia type Take 0.5 Tablets by mouth daily at noon. 90 Tablet 3 12/14/2022 Active Ferrous Sulfate 325 (65 Fe) MG Oral Tablet (Feosol)Indicatio ns:Iron deficiency anemia, unspecified iron deficiency anemia type Take 1 Tablet by mouth daily at noon. 90 Tablet 3 12/14/2022 Active Vitron-C 65-125 MG Oral Tablet (Iron-Vitamin C)Indications:Iro n deficiency anemia Take 1 Tab by mouth daily. 30 Tab 11 12/26/2020 3 Discontinue d(Medicatio n List Clean Up) Ipratropium-Albut helen 0.5-2.5 (3) MG/3ML Inhalation Solution (Duoneb) Inhale 3 mL by mouth every 6 hours as needed (sob). 360 mL 5 08/31/2022 3 Discontinue d(Refill) Metoprolol Tartrate 25 MG [...] 54 g 3 10/26/2022 3 Discontinue d(Refill) Anoro Ellipta 62.5-25 MCG/ACT Inhalation Aerosol Powder Breath Activated (umeclidinium-rosa m anterol) Inhale 1 puff by mouth daily 180 Each 3 11/09/2022 3 Discontinue d(Refill) Furosemide 20 MG Oral Tablet (Lasix) Take 1 Tablet by mouth once a day on Tuesday, Tuesday, and Tuesday only. 45 Tablet 3 12/03/2022 3 Discontinue d(Refill) Apixaban 5 MG Oral Tablet (Eliquis) Take 1 Tablet by mouth in the morning and 1 Tablet before bedtime. Do not start before December 17, 2022. 180 Tablet 3 12/17/2022 3 Discontinue d(Medicatio n List Clean Up) Clopidogrel Bisulfate 75 MG Oral Tablet (pLAVix) Take 1 Tablet by mouth in the morning. Do not start before December 17, 2022. 90 Tablet 3 12/17/2022 3 Discontinue d(Medicatio n List Clean Up) amLODIPine Besylate 10 MG Oral Tablet (Norvasc) Take 1 Tablet by mouth in the morning. Do not start before December 17, 2022. 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 * Telephone Encounter - Jenifer Linder RN - 12/23/2022 3:22 PM EDT Images from the original note were not included. Pt seen for home visit +2 edema of LE's , no redness or warmth He does report they have been feeling more tight and he has pain in his legs, mostly ankle and calfareas when in bed He applies voltaren gel with relief He does not weigh himself at home. Right now cannot find scale. He also reports his cough has been getting worse and he has white to pale yellow sputum Wheezes noted throughout lung read He uses nebulizer usually 4x a day Today during visit bp 128/70 sitting and 114/64 standing He reports no dizziness at this time but does have dizziness on a daily basis with position change Afebrile, HR 70 and regular Pic of legs with socks removed * Telephone Encounter - Ami Mondragon LPN - 12/23/2022 2:00 PM EDT Called and spoke with pt. States that he does not have any worsening SOB, has not been weighing himself - unsure if any weight gain, states swelling is the same in both legs/ankles * Telephone Encounter - Jairo Kingston MD - 12/23/2022 12:54 PM EDT Any worsening shortness of breath? Are they checking weights, has there been a gain in weight? Samein both legs? * Telephone Encounter - Violetta Cardoso LPN - 12/23/2022 8:35 AM EDT Provider to address: pt's ankles are swelling, swelling doesn't change with elevation. he sleeps with feet elevated. He is also getting discomfort in ankles and calves that wakes him up at night. Discomfort is only at night/in bed, not during the day. No redness or warmth. He applies arthritis cream that takes the discomfort away. Are there any recommendation or concerns? Reason for Call: Follow Up Contact: Telephone Call Contact Type: Follow-up Outcome: called pt. Informed of message. He verbalized understanding. Total Time including non face to face (minutes): 5 * Telephone Encounter - Jairo Kingston MD - 12/22/2022 4:20 PM EDT With these numbers, would suggest not re-starting the amlodipine at all yet. Continue to monitor and let us know if SBP regularly above 130 or DBP regularly above 80. * Telephone Encounter - Rand Cagle LPN - 12/22/2022 2:32 PM EDT Provider to address: Called pt. States that his BP has been running 115-125 systolic and high 60's-low 70's diastolic. BP readings that pt has is a week old. Yesterday his BP was 108/54 while at [facility] for a procedure. BP at this time is 135/68. Please advise. Reason for Call: Follow Up Contact: Telephone Call Contact Type: Care Coordination Total Time including non face to face (minutes): 10 * Telephone Encounter - Jairo Kingston MD - 12/20/2022 10:38 AM EDT Please call pt and see how his blood pressures are running - we will then plan to re-start amlodipine at a dose depending on his numbers. documented in this encounter Plan of Treatment Upcoming Encounters Date Type Department Care Team (Late st Contact Info) Description 03/22/2023 2:15 PM EST Hem/Onc Treatment Hematology/Oncology Treatment, [address] [address] [place], Chair 1 Hem On[address] [address] 03/24/2023 3:40 PM EST Office Visit Sleep Disorders Ctr [facility] [address] [facility] [place] [address] Shanika Fitzgerald DO [address] [facility] [place] [address] 03/25/2023 10:40 AM EST Office Visit [facility] [address] [place] [phone] Jairo Kingston MD [address] [place] [address] 04/01/2023 10:00 AM EST Home Visit [facility] [address] [place] [address] Jenifer Linder, RN [address] [place] [address] 04/05/2023 2:30 PM EST Hem/Onc Treatment Hematology/Oncology Treatment, [address] [place] [address] [place], Chair 10 Hem Onc [facility] [address] [place] [address] 05/04/2023 11:30 AM EST Laboratory Laboratory [facility] [place] [address] [place] [phone] [place], Lab [facility] [address] [facility] [place] [address] 05/13/2023 8:15 AM EST Office Visit Hematology/Oncology [facility] Hannah [place] [address] [place] [address] Michael Snyder MD 200 [facility] [place] [address] 05/27/2023 2:40 PM EST Office Visit Family [facility] [address] [place] [phone] Jairo Kingston MD [address] [place] [address] 06/02/2023 2:30 PM EST Office Visit Cardiology, [facility] [address] [place] [address] Ghanshyam Osorio PA-C [address] [place] [address] 12/13/2023 3:00 PM EDT Office Visit Nephrology, [facility] [address] [place], [place] [address] Reggie Azevedo MD [address] [place], [place] [address] 02/08/2024 11:30 AM EDT Appointment Radiology, [address] [phone] 02/08/2024 12:15 PM EDT Office Visit Vascular Surg [facility] [address] [place] [address] Mikhail Suazo MD [address] [place] [address] Scheduled Procedures Name Priority Associated Diagnoses Date/Ti [...] IN PAST YEAR FOR COPD 12/11/2023 12/10/2022 Hgb 02/23/2024 02/22/2023, 01/17, 01/26/2023, Additional history exists Nephrology Referral 02/23/2024 02/22/2023 PTH 02/23/2024 02/22/2023, 12/17, 06/03/2021, Additional history exists Phosphate 02/23/2024 02/22/2023, 11/17, 12/31/2021, Additional history exists COLONOSCOPY-EVERY 5 YRS AGES [...] exists LUNG CANCER SCREENING - USE SMARTSET [id number] Completed 01/27/2023, 06/25/2022, 02/08/2019, Additional history exists [...] this encounter Medical Devices Implanted Type Area Aluminum Container Tester Device Identifier Shelf Expiration Date Model / Serial / Lot Graft Hemasheild 20mm [id number] - [id number] Implanted:Qty: 1 on 01/13/2009 at OR [facility] N/A: Abdomen MICROVASIVE [id number] / / [id number] Stent Axios [id number] - [id number] Implanted:Qty: 1 on 12/10/2022 by Lacie England MD at OR [facility] [employer] : ENDOSCOPY [id number] 04/06/2023 [id number] / / [id number] documented as of this encounter Advance Directives Documents on File Type Date Recorded Patient Purchasing Manager Expl anation Power of Sld Inclusion Teacher 07/30/2022 POWER OF A TTORNEY Latest Code [...] and were consensually agreed upon. Care Teams Lift Truck Operator Relationship Specialty Start Date End Date Jairo Kingston MD [address] [place] [address] PCP - General 12/21/05 documented as of this encounter
--- OUTSIDE RECORDS SUMMARY | 2023-04-22 13:31 | External Medical Summary ---
Author Name Unknown Address Unknown Organization [id number]:[facility] - [address] [place] [address] Laboratory Report Ordering Provider Test Date Status AIRAMLOLLY 03/22/2023 14:31:38 Final Observation Date Value Abnormality Reference (Units ) Status Ferritin 03/22/2023 14:31:38 109 30-400 (ng /mL) Final Performing Location LABORATORY [facility] - [address] [place] [address]
--- OUTSIDE RECORDS SUMMARY | 2023-04-22 13:31 | External Medical Summary ---
Author Name Unknown Address Unknown Organization K01:[facility] [place] [address] [place] [address] Laboratory Report Ordering Provider Test Date Status LOLLY ALEGRIA 03/22/2023 14:31:38 Final Observation Date Value Abnormality Reference (Units ) Status Iron 03/22/2023 14:31:38 49 45-176 (ug /dL) Final Iron-binding capacity 03/22/2023 14:31:38 286 250-425 (ug/dL) Final Transferrin Sat % 03/22/2023 14:31:38 17 15 -55 (%) Final Performing Location [facility] - [address] [place] [address]
--- OUTSIDE RECORDS SUMMARY | 2023-04-22 13:31 | External Medical Summary | Summary of Care ---
Author Name Unknown Organization [facility] Address [address] [place] [address] Phone [phone] Care Team Providers Care Blueprint Blocker Name Role Phone Jairo Kingston MD Primary Care Provider +1- [phone] Encounter Details Date Type Department Care Team (Late st Contact Info) Description 03/25/2023 Telephone Pulmonary Medicine, [facility] [address] [place] [address] Shanika Fitzgerald DO [address] [place] [address] Allergies Active Allergy Reactions Criticality Noted Date [...] 0.1 % Nasal Solution (Astelin) Administer 1 [place] into nostril in the morning and 1 [place] before bedtime. 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 11/11/2022 [...] encounter Miscellaneous Notes * Telephone Encounter - Diego Leyva OSA - 03/25/2023 8:00 AM EST Orders in 03/25 supplies adapt documented in this encounter Plan of Treatment Upcoming Encounters Date Type Department Care Team (Late st Contact Info) Description 03/25/2023 10:40 AM EST Office Visit [place] [address] [address] [facility] [phone] Jairo Kingston MD [address] [facility] [address] 04/01/2023 10:00 AM EST [facility], [facility] [address] Jenifer Linder RN [address] [facility] [address] 04/05/2023 2:30 PM EST Hem/Onc Treatment Hematology/Oncology Treatment, [place] [address] [place], [place] [address] Hannah, Chair 10 Hem Onc [facility] [address] [facility] [place] [address] 05/04/2023 11:30 AM EST Laboratory Laboratory [facility] [address] [place] [phone] [place], Lab [facility] [address] [facility] [place], [place] [address] 05/13/2023 8:15 AM EST Office Visit Hematology/Oncology [facility] [address] [place], [place] [address] Michael Snyder MD [address] [place], [place] [address] 05/27/2023 2:40 PM EST Office Visit Family Practice, [place] [address] [facility] [phone] Jairo Kingston MD [address] [facility] [phone] 06/02/2023 2:30 PM EST Office Visit Cardiology, [facility] 132 [facility] [place] [address] Ghanshyam Osorio PA-C [address] [place] [address] 12/13/2023 3:00 PM EDT Office Visit Nephrology, [facility] [address] [facility] [place] [address] Reggie Azevedo MD [address] [facility] [place] [address] 02/08/2024 11:30 AM EDT Appointment Radiology, [employer] [address] [place] [phone] 02/08/2024 12:15 PM EDT Office Visit Vascular Surg [facility], [employer] [address] [place] [address] Mikhail Suazo MD [address] [place] [address] 03/28/2024 3:20 PM EST Office Visit [facility] Disorders Ctr [facility] [address] [place] [phone] Shanika Fitzgerald DO [address] [place] [address] Scheduled Procedures Name Priority Associated Diagnoses Date/Ti [...] exists LUNG CANCER SCREENING - USE SMARTSET [id number] Completed 01/27/2023, 06/25/2022, 02/08/2019, Additional history exists [...] this encounter Medical Devices Implanted Type Area Psychiatric Mental Health Nurse Device Identifier Shelf Expiration Date Model / Serial / Lot Graft Hemasheild 20mm [id number] - [id number] Implanted:Qty: 1 on 01/13/2009 [place] [facility] Abdomen MICROVASIVE [id number] / / [id number] Stent Axios [id number] - [id number] Implanted:Qty: 1 on 12/10/2022 by Lacie England MD at OR [facility] [employer] : ENDOSCOPY [id number] 04/06/2023 [id number] / / [id number] documented as of this encounter Advance Directives Documents on File Type Date Recorded Patient Stitch Marker Expl anation Power of Cafeteria Counter Attendant 07/30/2022 POWER OF A TTORNEY Latest [...] and were consensually agreed upon. Care Teams Blueprint Blocker Relationship Specialty Start Date End Date Jairo Kingston MD [address] [place] [address] PCP - General 12/21/05 documented as of this encounter
--- OUTSIDE RECORDS SUMMARY | 2023-04-22 13:31 | External Medical Summary | Summary of Care ---
Author Name Unknown Organization [facility] Address [address] [place] [address] Phone [phone] Care Team Providers Care Railroad Car Truck Builder Name Role Phone Jairo Kingston MD Primary Care Provider +1- [phone] Reason for Visit * Reason Onset Date Comments Advice 03/22/2023 Encounter Details Date Type Department Care Team (Late st Contact Info) Description 03/22/2023 Telephone Hematology/Oncology Treatment, [place] [address] [place] [address] Michael Snyder MD [address] [place] [address] Advice Allergies Active Allergy Reactions Criticality Noted Date Comments Pavan Inhibitors Other (Please comment) 0 Hyperkalemia documented as of this encounter (statuses as of 03/23/2023) Medications Medication Sig Dispensed Refills Start Date [...] 0.1 % Nasal Solution (Astelin) Administer 1 [place] into nostril in the morning and 1 [place] before bedtime. 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 [...] as of this encounter (statuses as of 03/23/2023) Resolved Problems Problem Noted Date Diagnosed Date [...] as of this encounter (statuses as of 03/23/2023) Immunizations Name Administration Dates Next Due COVID-19 [...] encounter Miscellaneous Notes * Telephone Encounter - Stephanie Jack, CHRISSY - 03/22/2023 4:12 PM EST Pt presented [...] [facility] Disorders Ctr [facility] [place] [phone] Shanika Fitzgerald DO [facility] [place] [address] 03/25/2023 10:40 AM EST Office Visit [facility] [address] [place] [phone] Jairo Kingston MD [address] [place] [address] 04/01/2023 10:00 AM EST Home Visit [facility]inger at [facility] [place] [address] Jenifer Linder RN 132 [facility] [place] [address] 04/05/2023 2:30 PM EST Hem/Onc Treatment Hematology/Oncology Treatment, [place] [address] [place], [place] [address] Hannah, Chair 10 Hem Onc [facility] [place] [address] 05/04/2023 11:30 AM EST Laboratory Laboratory [facility] [place] [address] [place] [phone] Hannah Lab [facility] [address] [facility] [place] [address] 05/13/2023 8:15 AM EST Office Visit Hematology/Oncology [facility] [place] [address] [place] [address] Michael Snyder MD 200 [facility] [place] [address] 05/27/2023 2:40 PM EST Office Visit [facility] [address] [place] [phone] Jairo Kingston MD [address] [place] [address] 06/02/2023 2:30 PM EST Office Visit Cardiology, [facility] [address] [place] [address] Ghanshyam Osorio PA-C [address] [facility] [place] [address] 12/13/2023 3:00 PM EDT Office Visit Nephrology, [facility] 200 [facility] [place] [address] Reggie Azevedo MD 200 [facility] [place] [address] 02/08/2024 11:30 AM EDT Appointment Radiology, [place] [address] [place] [phone] 02/08/2024 12:15 PM EDT Office Visit [facility], [place] [address] [place], [place] [phone] Mikhail Suazo MD [address] [place], [place] [phone] Scheduled Procedures Name Priority Associated Diagnoses Date/Ti [...] exists LUNG CANCER SCREENING - USE SMARTSET [id number] Completed 01/27/2023, 06/25/2022, 02/08/2019, Additional history exists [...] this encounter Medical Devices Implanted Type Area Mechanical Engineering Technician Device Identifier Shelf Expiration Date Model / Serial / Lot Graft Hemasheild 20mm [id number] - [id number] Implanted:Qty: 1 on 01/13/2009 [place] [facility] [place]: Abdomen MICROVASIVE [id number] / / [id number] Stent Axios [id number] - [id number] Implanted:Qty: 1 on 12/10/2022 by Lacie England MD at OR [facility] [place] [employer] : ENDOSCOPY [id number] 04/06/2023 [id number] / / [id number] documented as of this encounter Advance Directives Documents on File Type Date Recorded Patient Hand Paint Mixer Expl anation Power of Bait Maker 07/30/2022 POWER OF A TTORNEY Latest Code [...] and were consensually agreed upon. Care Teams Railroad Car Truck Builder Relationship Specialty Start Date End Date Jairo Kingston MD [address] [place] [address] PCP - General 12/21/05 documented as of this encounter
--- OUTSIDE RECORDS SUMMARY | 2023-04-22 13:31 | External Medical Summary | Summary of Care ---
Author Name Unknown Organization [facility] Address [address] [place] [address] Phone [phone] Care Team Providers Care Director Search Marketing Strategies Name Role Phone Jairo Kingston MD Primary Care Provider +1- [phone] Reason for Visit * Reason Onset Date Comments Advice 03/22/2023 Encounter Details Date Type Department Care Team (Late st Contact Info) Description 03/22/2023 Telephone Hematology/Oncology Treatment, [place] [address] [place] [address] Michael Snyder MD 200 [place] [address] Advice Allergies Active Allergy Reactions Criticality Noted [...] 0.1 % Nasal Solution (Astelin) Administer 1 [place] into nostril in the morning and 1 [place] before bedtime. 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 [place] [address] 03/25/2023 10:40 AM EST Office Visit [facility] [address] [place] [phone] Jairo Kingston MD [address] [place] [address] 04/01/2023 10:00 AM EST [facility] Visit [facility] [place] [address] Jenifer Linder RN 132 [facility] [place] [address] 04/05/2023 2:30 PM EST Hem/Onc Treatment Hematology/Oncology Treatment, [place] [address] [place], [place] [address] Hannah, Chair 10 Hem Onc [facility] 200 [facility] [place] [address] 05/04/2023 11:30 AM EST Laboratory Laboratory [facility] [place] [address] [place] [phone] Hannah Lab [facility] 200 [facility] [place] [address] 05/13/2023 8:15 AM EST Office Visit Hematology/Oncology [facility] [place] [address] [place] [address] Michael Snyder MD 200 [place] [address] 05/27/2023 2:40 PM EST Office Visit [facility] [address] [place] [phone] Jairo Kingston MD [address] [place] [address] 06/02/2023 2:30 PM EST Office Visit Cardiology, [facility] [address] [place] [address] Ghanshyam Osorio PA-C [address] [place] [address] 12/13/2023 3:00 PM EDT Office Visit Nephrology, [facility] 200 [facility] [place] [address] Reggie Azevedo MD 200 [place] [address] 02/08/2024 11:30 AM EDT Appointment Radiology, [place] [address] [place] [phone] 02/08/2024 12:15 PM EDT Office Visit [facility], [place] [address] [place], [place] [phone] Mikhail Suazo MD [address] [place], [place] [phone] Scheduled Procedures Name Priority Associated Diagnoses Date/Ti [...] exists LUNG CANCER SCREENING - USE SMARTSET [id number] Completed 01/27/2023, 06/25/2022, 02/08/2019, Additional history exists [...] this encounter Medical Devices Implanted Type Area Account Support Rep Device Identifier Shelf Expiration Date Model / Serial / Lot Graft Hemasheild 20mm [id number] - [id number] Implanted:Qty: 1 on 01/13/2009 at [place] [facility] [place] N/A: Abdomen MICROVASIVE [id number] / / [id number] Stent Axios [id number] - [id number] Implanted:Qty: 1 on 12/10/2022 by Lacie England MD at OR [facility] [employer] : ENDOSCOPY [id number] 04/06/2023 [id number] / / [id number] documented as of this encounter Advance Directives Documents on File Type Date Recorded Patient Sole Scraper Expl anation Power of Medical Care Manager 07/30/2022 POWER OF A TTORNEY Latest [...] and were consensually agreed upon. Care Teams Director Search Marketing Strategies Relationship Specialty Start Date End Date Jairo Kingston MD [address] [place] [address] PCP - General 12/21/05 documented as of this encounter
--- OUTSIDE RECORDS SUMMARY | 2023-04-22 13:31 | External Medical Summary | Summary of Care ---
Author Name Unknown Organization [facility] Address [address] [place] [address] Phone [phone] Care Team Providers Care Administrative Tech Name Role Phone Jairo Kingston MD Primary Care Provider +1- [phone] Reason for Visit * Reason Comments NEW PATIENT Here for 1 year retu rn. GINNY. CPAP. No complaint. Encounter Details Date Type Department Care Team (Late st Contact Info) Description 03/24/2023 3:40 PM EST Office Visit Sleep Disorders Ctr [facility] [address] [place] [phone] Shanika Fitzgerald DO 132 [facility] [place] [address] Obstructive sleep apnea* Allergies Active Allergy Reactions Criticality Noted Date [...] 0.1 % Nasal Solution (Astelin) Administer 1 [place] into nostril in the morning and 1 [place] before bedtime. 30 mL 1 01/11/2023 Active [...] 0 11/11/2022 Last Assessment & Plan: Allopurinol correction No new attacks GINNY on CPAP 11/11/2022 [...] Answered Alcohol Use Standard Drinks/Week Comments Yes 3 [...] Sign Reading Time Taken Comments Blood Pressure 132/80 03/24/2023 3:35 PM EST Pulse 71 03/24/2023 3:35 PM EST Temperature 36.3 C (97.4 F) 03/24/2023 3:35 PM ES T Respiratory Rate 16 03/24/2023 3:35 PM EST Oxygen Saturation 96% 03/24/2023 3:35 PM EST Inhaled Oxygen Concentration - - Weight 91.2 kg (201 lb 1 oz) 03/24/2023 3:35 PM EST Height 167.6 cm (5' 6") 03/24/2023 3:35 PM EST Body Mass Index 32.45 03/24/2023 3:35 PM EST documented in this encounter Progress Notes * Shanika Fitzgerald, DO - 03/24/2023 3:37 PM EST Sleep Medicine Follow-Up HISTORY: Mikhail Fung is a 72 year old male for follow up of mild GINNY with nocturnal hypoxemia. Initially seen 05/10/2019 with nocturnal hypoxemia, nocturia, napping. Waverly was 3. PSG 10/25/2019 with AHI 9.9, REM AHI 44.6, SpO2 dianna 77%, time <89% 334 min (66.5 minutes of wakeand 267.5 minutes of sleep), PLMI 26.6, PLMAI 4.6. Overnight oximetry 12/08-: SpO2 dianna 83%, time <= 88% 13.7 minutes. CPAP used full night with residual AHI 6.9. CPAP was adjusted to 8-20 cmH2O. Pt had trouble tolerating the higher pressure. Thus, it was adjusted to 4-11 cwp. Mask fitting was requested, to try a nasal mask. Repeat oximetry 02/03- on CPAP and RA showed persistent hypoxemia on CPAP 4-11 cwp, with 92.6 minutes <89%. Recommended adding oxygen 2 L/min. 03/21/2020: doing well with CPAP and O2. Residual AHI mildly elevated; adjusted CPAP to 6-11 cmH2O. 03/26/21: doing well with CPAP 6-11 cwp and 2 L/min oxygen. Waverly 4. Residual AHI 4.3. 03/05/22: doing well with CPAP. Residual AHI very mildly elevated; adjusted to 7-11 cwp. Nocturnal oximetry 04/26/22 on CPAP with 2 L/min oxygen: SpO2 dianna 61%; time <= 88% 7 min 41 sec.Increased nighttime oxygen to 3 L/min. Using CPAP 7-11 cmH2O with 2 or 3 L/min oxygen (also using oxygen 2 L/min through the day). Subjective PAP adherence: excellent Sleep refreshing on PAP: yes Snoring on PAP: no Daytime sleepiness: no Drowsy driving: N/A (not driving) Mask leak: no Dry nose or dry mouth: not much Rash from mask: vaseline helps with nasal soreness Aerophagia: no Morning headaches: no Recent weight change: fluctuations, but no major/sustained changes W[place] Sleepiness Scale: 5 [place] Sleepiness Scale Question 03/24/2023 3:34 PM EST - Filed by Sadie Fang LPN What is the chance you will doze off in the following situation? Sitting and reading Slight chance of dozing Watching TV Slight chance of dozing Sitting inactive in a public place, such as a theater or meeting No chance of dozing As a passenger in a car for an hour without a break No chance of dozing Lying down to rest in the afternoon when circumstances permit High chance of dozing When sitting and talking to someone No chance of dozing When sitting quietly after lunch without alcohol No chance of dozing In a car, while stopped for a few minutes in traffic No chance of dozing Score (range: 0 - 24) 5 CPAP Compliance: Report date: 03/22/23 % total days used: 86.7% % days used > 4 hours: 86.7% Average hours per day used: 8h 29m Large leak: 6 min/day AHI: 2.7 /hr Mean pressure: 7.5 cmH2O 90%ile pressure: 8.5 cmH2O Pressure settin-11 cmH2O Equipment: DME Provider is [employer] Uses a [email or web address]. Additional changes in health in the interim of care: He was in the hospital, most recently with a pulmonary infection, once with a GI bleed. 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 Abdominal aortic aneurysm without rupture (HCC) I71.40 Thoracic aorta atherosclerosis (HCC) I70.0 Hyperparathyroidism (HCC) E21.3 Iron deficiency anemia due to chronic blood loss D50.0 Severe aortic stenosis I35.0 History of CVA (cerebrovascular accident) without residual deficits Z86.73 Waldenstrom macroglobulinemia ([facility]) C88.0 Anemia associated with chronic renal failure N18.9, D63.1 Acute on chronic blood loss anemia D62 Monoclonal paraproteinemia D47.2 Benign hypertensive kidney disease, stage IV ([facility]) I12.9, N18.4 History of supraventricular tachycardia Z86.79 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 Ezetimibe 10 MG Oral Tablet (Zetia) TAKE ONE TABLET BY MOUTH EVERY MORNING Trelegy Ellipta 100-62.5-25 MCG/ACT Aerosol Powder Breath Activated (Lrjygxfbsbx-Wcilwiqcnqig-Weuxysvygm) Inhale one puff daily Octreotide Acetate 10 MG Intramuscular Kit (SandoSTATIN LAR [place]) Inject 10 mg into a large muscleevery month for 6 doses. Furosemide 20 MG Oral Tablet (Lasix) TAKE 1 TABLET BY MOUTH twice DAILY Ipratropium-Albuterol 0.5-2.5 (3) MG/3ML Inhalation Solution (Duoneb) Inhale 3 mL by mouth every 6 hours as needed (sob). Azelastine HCl 0.1 % Nasal Solution (Astelin) Administer 1 [place] into nostril in the morning and 1 [place] before bedtime. Apixaban 2.5 MG Oral Tablet (Eliquis) Take 1 Tablet by mouth in the morning and 1 Tablet before bedtime. Albuterol Sulfate HFA 108 (90 Base) MCG/ACT Inhalation Aerosol Solution Inhale 2 Puffs by mouth every 4 hours as needed for Wheezing. Ascorbic Acid 250 MG Oral Tablet Take 0.5 Tablets by mouth daily at noon. Ferrous Sulfate 325 (65 Fe) MG Oral Tablet (Feosol) Take 1 Tablet by mouth daily at noon. CPAP every night at bedtime. Potassium Chloride Marla ER 10 MEQ Oral Tablet Extended Release Take 1 Tablet by mouth once a day onTuesday, Tuesday, and Tuesday only. Pantoprazole Sodium 40 MG Oral Tablet Delayed Release (Protonix) Take 1 Tablet by mouth in the morning and 1 Tablet before bedtime. Sucralfate 1 GM/10ML Oral Suspension (Carafate) Take 10 mL by mouth in the morning and 10 mL at noon and 10 mL before bedtime. Docusate Sodium 100 MG Oral Capsule (Colace) Take 1 Capsule by mouth 2 times a day as needed for Constipation. Fluticasone Propionate 50 MCG/ACT Nasal Suspension (Flonase) INSTILL 2 SPRAYS INTO EACH NOSTRIL EVERY DAY Allopurinol 300 MG Oral Tablet (Zyloprim) TAKE ONE-HALF TABLET BY MOUTH EVERY DAY Atorvastatin Calcium 80 MG Oral Tablet (Lipitor) TAKE ONE TABLET BY MOUTH EVERY DAY [facility] D3 50 MCG (2000 UT) Oral Capsule (Cholecalciferol) TAKE 1 CAPSULE BY MOUTH EVERY DAY oxygen GAS Use 3 L/min(Oxygen) as directed at bedtime. Use 2-3 l/min continuously to keep pulse ox above 90% PHYSICAL EXAM: Filed Vitals: 03/24/23 1535 BP: 132/80 Pulse: 71 Resp: 16 Temp: 36.3 C (97.4 F) TempSrc: Tympanic SpO2: 96% Weight: 91.2 kg (201 lb 1 oz) Height: 1.676 m (5' 6") Body mass index is 32.45 kg/m. General: alert, no acute distress Head: NC/AT Lungs: normal respiratory effort Neuro: speech clear and appropriate ASSESSMENT/PLAN: Obstructive sleep apnea - good adherence; encourage continued use of CPAP with all sleep - excellent efficacy of therapy; continue PAP at current setting 7-11 cmH2O - DME: [employer] - Routine cleaning and change of supplies as needed. - Continue to avoid driving when feeling sleepy/drowsy (he does not drive). - continue oxygen at 3 L/min via CPAP (I've asked him to check to make sure his oxygen concentratoris running at 3 L/min via CPAP, since he's not entirely sure whether it's running at 2 or 3). Follow-up with Sleep Medicine in 1 year. Shanika Fitzgerald DO documented in this encounter Nursing Notes * Sadie Fang LPN - 03/24/2023 3:38 PM EST Chief Complaint Patient presents with NEW PATIENT Here for 1 year return. GINNY. CPAP. No complaint. DME: [employer] [place] Sleepiness Scale Question 03/24/2023 3:34 PM EST - Filed by Sadie Fang LPN What is the chance you will doze off in the following situation? Sitting and reading Slight chance of dozing Watching TV Slight chance of dozing Sitting inactive in a public place, such as a theater or meeting No chance of dozing As a passenger in a car for an hour without a break No chance of dozing Lying down to rest in the afternoon when circumstances permit High chance of dozing When sitting and talking to someone No chance of dozing When sitting quietly after lunch without alcohol No chance of dozing In a car, while stopped for a few minutes in traffic No chance of dozing Score (range: 0 - 24) 5 documented in this encounter Plan of Treatment Upcoming Encounters Date Type Department Care Team (Late st Contact Info) Description 03/25/2023 10:40 AM EST Office Visit [facility] [address] [place] [phone] Jairo Kingston MD [address] [place] [address] 04/01/2023 10:00 AM EST Home Visit [facility] [address] [facility] [place] [address] Jenifer iLnder, RN [address] [place] [address] 04/05/2023 2:30 PM EST Hem/Onc Treatment Hematology/Oncology Treatment, [place] [address] [place], [place] [address] Hannah, Chair 10 Hem Onc [facility] 200 [facility] [place] [address] 05/04/2023 11:30 AM EST Laboratory Laboratory [facility] [place] [address] [place] [phone] Hannah Lab [facility] [address] [facility] [place] [address] 05/13/2023 8:15 AM EST Office Visit Hematology/Oncology [facility] [place] [address] [place] [address] Michael Snyder MD 200 [facility] [place] [address] 05/27/2023 2:40 PM EST Office Visit Family [facility] [address] [place] [address] Jairo Kingston MD [address] [place] [address] 06/02/2023 2:30 PM EST Office Visit Cardiology, [facility] [address] [facility] [place] [address] Ghanshyam Osorio PA-C [address] [place] [address] 12/13/2023 3:00 PM EDT Office Visit Nephrology, [facility] [address] [place], [place] [address] Reggie Azevedo MD [address] [place] [address] 02/08/2024 11:30 AM EDT Appointment [address] [address] 02/08/2024 12:15 PM EDT Office Visit Vascular Surg [facility] [place] [address] [place] [address] Mikhail Suazo MD [address] [facility] [place] [address] 03/28/2024 3:20 PM EST Office Visit Sleep Disorders Ctr [facility] [address] [place] [phone] Shanika Fitzgerald DO [address] [place] [address] Scheduled Procedures Name Priority Associated Diagnoses Date/Ti [...] exists LUNG CANCER SCREENING - USE SMARTSET [id number] Completed 01/27/2023, 06/25/2022, 02/08/2019, Additional history exists [...] this encounter Medical Devices Implanted Type Area Radioactivity Technician Device Identifier Shelf Expiration Date Model / Serial / Lot Graft Hemasheild 20mm [id number] - [id number] Implanted:Qty: 1 on 01/13/2009 at [place] [facility] [place]A: Abdomen MICROVASIVE [id number] / / [id number] Stent Axios [id number] - [id number] Implanted:Qty: 1 on 12/10/2022 by Lacie England MD at OR [facility] [employer] : ENDOSCOPY [id number] 04/06/2023 [id number] / / [id number] documented as of this encounter Visit Diagnoses Diagnosis Obstructive sleep apnea- Primary Obstructive sleep apnea (adult) (pediatric) documented in this encounter Advance Directives Documents on File Type Date Recorded Patient Test Desk Operator Expl anation Power of [employer] 07/30/2022 POWER OF A TTORNEY Latest Code [...] and were consensually agreed upon. Care Teams Administrative Tech Relationship Specialty Start Date End Date Jairo Kingston MD [address] [place] [address] PCP - General 12/21/05 documented as of this encounter
--- OUTSIDE RECORDS SUMMARY | 2023-04-22 13:32 | External Medical Summary | Summary of Care ---
Author Name Unknown Organization [facility] Address [address] [place] [place] [address] Phone [phone] Care Team Providers Care Information Assurance Officer Name Role Phone Jairo Kingston MD Primary Care Provider +1- [phone] Reason for Visit * Reason Onset Date Comments Test Results 02/23/2023 Encounter Details Date Type Department Care Team (Late st Contact Info) Description 02/23/2023 Telephone NephrologyYuliet [address] [place] [address] Reggie Azevedo MD 200 [facility] [place] [address] Test Results Allergies Active Allergy Reactions Criticality Noted Date Comments Pavan Inhibitors Other (Please comment) 0 Hyperkalemia documented as of this encounter (statuses as of 02/23/2023) Medications Medication Sig Dispensed Refills Start Date [...] 0.1 % Nasal Solution (Astelin) Administer 1 [place] into nostril in the morning and 1 [place] before bedtime. 30 mL 1 01/11/2023 Active [...] as of this encounter (statuses as of 02/23/2023) Active Problems Problem Noted Date Diagnosed Date [...] 11/11/2022 Last Assessment & Plan: Allopurinol senior care No new attacks GINNY on CPAP 11/11/2022 [...] as of this encounter (statuses as of 02/23/2023) Resolved Problems Problem Noted Date Diagnosed Date [...] as of this encounter (statuses as of 02/23/2023) Immunizations Name Administration Dates Next Due COVID-19 [...] encounter Miscellaneous Notes * Telephone Encounter - Hanna Varma RN - 02/23/2023 11:46 AM EST TE with pt;s daughter who states that he is not doing well following a procedure today and is in the process of being sent to the hospital for further treatment. She is aware of lab results. * Telephone Encounter - Hanna Varma RN - 02/23/2023 11:44 AM EST ----- Message from Reggie Azevedo MD sent at 02/23/2023 11:32 AM EST ----- Kidney function abnormal but stable and similar to recent ones. Hgb is better at 9.9. continue samemeds documented in this encounter Plan of Treatment Upcoming Encounters Date Type Department Care Team (Late st Contact Info) Description 02/25/2023 12:30 PM EST Home Visit [facility], [facility] [address] [place] [address] Jenifer Linder RN [address] [place] [address] 03/09/2023 3:00 PM EST Office Visit Pulmonary Medicine [facility] Hernandez [address] [place] [phone] Andrez Velez MD [address] [place] [place] [address] 03/22/2023 2:15 PM EST Hem/Onc Treatment Hematology/Oncology Treatment, [place] [address] [place] [address] Hannah, Chair 1 Hem Onc [place] [address] [place] [address] 03/24/2023 3:40 PM EST Office Visit Sleep Disorders Ctr [facility] [address] [place] [phone] Shanika Fitzgerald DO [address] [place] [address] 03/25/2023 10:40 AM EST Office Visit [address] [phone] Jairo Kingston MD [address] [place] [address] 04/05/2023 2:30 PM EST Hem/Onc Treatment Hematology/Oncology [facility] [address] [place] [address] Hannah, Chair 10 Hem Onc [facility] 200 [facility] [place], [place] [address] 05/04/2023 11:30 AM EST Laboratory Laboratory [facility] [address] [place], [place] [phone] Hannah, Lab [facility] 200 [facility] [place] [address] 05/11/2023 2:15 PM EST Office Visit Hematology/Oncology [facility] [address] [place], [place] [address] Michael Snyder MD 200 [facility] [place], [place] [address] 05/27/2023 2:40 PM EST Office Visit Family [facility] [address] [place] [phone] Jairo Kingston MD [address] [place] [address] 06/02/2023 2:30 PM EST Office Visit Cardiology, [facility] [place] [address] Ghanshyam Osorio PA-C [address] [place] [address] 12/13/2023 3:00 PM EDT Office Visit Nephrology, [facility] [address] [place], [place] [address] Reggie Azevedo MD 200 [facility] [place], [place] [address] 02/08/2024 11:30 AM EDT Appointment Radiology, [place] [address] [place] [address] 02/08/2024 12:15 PM EDT Office Visit Vascular Surg [facility], [place] [address] [place] [address] Mikhail Suazo MD [address] [place], [place] [phone] Scheduled Procedures Name Priority Associated Diagnoses Date/Ti [...] exists LUNG CANCER SCREENING - USE SMARTSET [id number] Completed 01/27/2023, 06/25/2022, 02/08/2019, Additional history exists [...] this encounter Medical Devices Implanted Type Area Doctor Podiatric Medicine Device Identifier Shelf Expiration Date Model / Serial / Lot Graft Hemasheild 20mm [id number] - [id number] Implanted:Qty: 1 on 01/13/2009 at [place] [facility] [place]: Abdomen MICROVASIVE [id number] / / [id number] Stent Axios [id number] - [id number] Implanted:Qty: 1 on 12/10/2022 by Lacie England MD at OR [facility] [employer] : ENDOSCOPY [id number] 04/06/2023 [id number] / / [id number] documented as of this encounter Advance Directives Documents on File Type Date Recorded Patient Mobile Ui Developer Expl anation Power of Dye Jig Operator 07/30/2022 POWER OF A TTORNEY Latest [...] and were consensually agreed upon. Care Teams Information Assurance Officer Relationship Specialty Start Date End Date Jairo Kingston MD [address] [place] [address] PCP - General 12/21/05 documented as of this encounter
--- OUTSIDE RECORDS SUMMARY | 2023-04-22 13:32 | External Medical Summary | Summary of Care ---
Author Name Unknown Organization [facility] Address [address] [place] [address] Phone [phone] Care Team Providers Care Skiff Operator Name Role Phone Jairo Kingston MD Primary Care Provider +1- [phone] Encounter Details Date Type Department Care Team (Late st Contact Info) Description 03/02/2023 Population Health External Data Unspecified Department Allergies Active Allergy Reactions Criticality Noted Date Comments Pavan Inhibitors Other (Please comment) 0 Hyperkalemia documented as of this encounter (statuses as of 03/02/2023) Medications Medication Sig Dispensed Refills Start Date [...] 0.1 % Nasal Solution (Astelin) Administer 1 [place] into nostril in the morning and 1 [place] before bedtime. 30 mL 1 01/11/2023 Active [...] as of this encounter (statuses as of 03/02/2023) Active Problems Problem Noted Date Diagnosed Date [...] 0 11/11/2022 Last Assessment & Plan: Allopurinol emt intermediate No new attacks GINNY on CPAP [...] as of this encounter (statuses as of 03/02/2023) Resolved Problems Problem Noted Date Diagnosed Date [...] as of this encounter (statuses as of 03/02/2023) Immunizations Name Administration Dates Next Due COVID-19 [...] Tobacco: Former Cigarettes 1 35 Q uit: 2008 Cigars Smokeless Tobacco: Never Alcohol Use Standard [...] 2:15 PM EST Hem/Onc Treatment Hematology/Oncology Treatment, [place] [address] [place] [address] Hannah, Chair 1 Hem Onc [place] [address] [place] [address] 03/24/2023 3:40 PM EST Office Visit Sleep Disorders Ctr [facility] Solor[facility] [place] [address] [place] [phone] Shanika Fitzgerald, [address] [place] [address] 03/25/2023 10:40 AM EST Office Visit Family [facility] [place] [address] [facility] [place], [place] [address] Jairo Kingston [facility] [address] [facility] [address] 04/01/2023 10:00 AM EST [facility] Visit [facility] 132 [facility] [place] [address] Jenifer Linder RN [address] [place] [address] 04/05/2023 2:30 PM EST Hem/Onc Treatment Hematology/Oncology Treatment, [place] [address] [place], [place] [address] Hannah, Chair 10 Hem Onc [facility] 200 [facility] [place] [address] 05/04/2023 11:30 AM EST Laboratory Laboratory [facility] [address] [place], [place] [phone] Walker, Lab [facility] 200 [facility] [place], [place] [address] 05/11/2023 2:15 PM EST Office Visit Hematology/Oncology [facility] [address] [place], [place] [address] Michael Snyder MD [address] [place], [place] [address] 05/27/2023 2:40 PM EST Office Visit Family [facility] [place] [address] [facility] [place] [address] Jairo Kingston MD [address] [facility] [address] 06/02/2023 2:30 PM EST Office Visit Cardiology, [facility] [address] [place] [address] Ghanshyam Osorio PA-C [address] [place] [address] 12/13/2023 3:00 PM EDT Office Visit Nephrology, [facility] 200 [facility] [place] [address] Reggie Azevedo MD 200 [facility] [place] [address] 02/08/2024 11:30 AM EDT Appointment Radiology, [place] [address] [place] [address] 02/08/2024 12:15 PM EDT Office Visit Vascular Surg [facility], [place] [address] [place], [place] [phone] Mikhail Suazo MD [address] [place], [place] [phone] Scheduled Procedures Name Priority Associated Diagnoses Date/Ti [...] exists LUNG CANCER SCREENING - USE SMARTSET [id number] Completed 01/27/2023, 06/25/2022, 02/08/2019, Additional history exists [...] this encounter Medical Devices Implanted Type Area Nailing Machine Operator Device Identifier Shelf Expiration Date Model / Serial / Lot Graft Hemasheild 20mm [id number] - [id number] Implanted:Qty: 1 on 01/13/2009 at [place] [facility] [place]/A: Abdomen MICROVASIVE [id number] / / [id number] Stent Axios [id number] - [id number] Implanted:Qty: 1 on 12/10/2022 by Lacie England MD at OR [facility] [employer] : ENDOSCOPY [id number] 04/06/2023 [id number] / / [id number] documented as of this encounter Advance Directives Documents on File Type Date Recorded Patient Snout Puller Expl anation Power of Hardwood Sawyer 07/30/2022 POWER OF A TTORNEY Latest Code [...] and were consensually agreed upon. Care Teams Skiff Operator Relationship Specialty Start Date End Date Jairo Kingston MD [address] [place] [address] PCP - General 12/21/05 documented as of this encounter
--- OUTSIDE RECORDS SUMMARY | 2023-04-22 13:32 | External Medical Summary | Summary of Care ---
Author Name Unknown Organization [facility] Address [address] [place] [address] Phone [phone] Care Team Providers Care Computer Terminal Operator Name Role Phone Jairo Kingston MD Primary Care Provider +1- [phone] Encounter Details Date Type Department Care Team (Latest Contact Info) Description 02/23/2023 10:30 AM EST Procedure Only Endoscopy, [facility] [address] [place] [address] Lacie England MD [address] [place] [address] Encounter for diagnostic endoscopy* Allergies Active Allergy Reactions Criticality Noted Date Comments Pavan Inhibitors Other (Please comment) 0 Hyperkalemia documented as of this encounter (statuses as of 02/27/2023) Medications Medication Sig Dispensed Refills Start Date [...] 0.1 % Nasal Solution (Astelin) Administer 1 [place] into nostril in the morning and 1 [place] before bedtime. 30 mL 1 01/11/2023 Active [...] as of this encounter (statuses as of 02/27/2023) Active Problems Problem Noted Date Diagnosed Date [...] 0 11/11/2022 Last Assessment & Plan: Allopurinol penitentiary No new attacks GINNY on CPAP 11/11/2022 [...] as of this encounter (statuses as of 02/27/2023) Resolved Problems Problem Noted Date Diagnosed Date [...] as of this encounter (statuses as of 02/27/2023) Immunizations Name Administration Dates Next Due COVID-19 [...] Care Team (Late st Contact Info) Description 03/09/2023 3:00 PM EST Office Visit Pulmonary Medicine Tk Hernandez [address] [place] [phone] Andrez Velez MD [address] [place] [address] 03/22/2023 2:15 PM EST Hem/Onc Treatment Hematology/Oncology Treatment, [place] 200 [place] [address] Hannah, Chair 1 Hem Onc Scenery [address] [place] [address] 03/24/2023 3:40 PM EST Office Visit Sleep Disorders Ctr [facility] [place] [phone] Shanika Fitzgerald, [facility] [place] [address] 03/25/2023 10:40 AM EST Office Visit [facility] [address] [place] [phone] Jairo Kingston MD [address] [place] [address] 04/01/2023 10:00 AM EST [facility], [facility] 132 [facility] [place] [address] Jenifer Linder, RN 132 [facility] [place] [address] 04/05/2023 2:30 PM EST Hem/Onc Treatment Hematology/Oncology Treatment, [place] 200 [facility], [place] [address] Hannah, Chair 10 Hem Onc Scenery [address] [facility] [place], [place] [address] 05/04/2023 11:30 AM EST Laboratory Laboratory [facility] [place] [address] [place] [phone] Hannah, Lab [facility] [address] [facility] [place], [place] [address] 05/11/2023 2:15 PM EST Office Visit Hematology/Oncology [facility] [place] [address] [place] [address] Michael Snyder MD 200 [facility] [place] [address] 05/27/2023 2:40 PM EST Office Visit [facility] [address] [place] [address] Jairo Kingston MD [address] [place] [address] 06/02/2023 2:30 PM EST Office Visit Cardiology, [facility] [address] [place] [address] Ghanshyam Osorio PA-C [address] [place] [address] 12/13/2023 3:00 PM EDT Office Visit Nephrology, [facility] 200 [facility] [place] [address] Reggie Azevedo MD 200 [facility] [place] [address] 02/08/2024 11:30 AM EDT Appointment Radiology, [place] [address] [place] [address] 02/08/2024 12:15 PM EDT Office Visit [facility], [place] [address] [place], [place] [phone] Mikhail Suazo MD [address] [place], [place] [phone] Scheduled Procedures Name Priority Associated Diagnoses Date/Ti [...] exists LUNG CANCER SCREENING - USE SMARTSET [id number] Completed 01/27/2023, 06/25/2022, 02/08/2019, Additional history exists [...] this encounter Medical Devices Implanted Type Area Thermodynamic Physicist Device Identifier Shelf Expiration Date Model / Serial / Lot Graft Hemasheild 20mm [id number] - [id number] Implanted:Qty: 1 on 01/13/2009 at [place] [facility] [place]A: Abdomen MICROVASIVE [id number] / / [id number] Stent Axios [id number] - [id number] Implanted:Qty: 1 on 12/10/2022 by Lacie England MD at OR [facility] [employer] : ENDOSCOPY [id number] 04/06/2023 [id number] / / [id number] documented as of this encounter Procedures Procedure Name Priority Date/Time Associated Diagnosis Comments UPPER GI ENDOSCOPY 02/23/2023 documented in this encounter Results * UPPER GI ENDOSCOPY (02/23/2023) 02/23/2023 Lacie England MD GASTRO UPPER documented in this encounter Visit Diagnoses Diagnosis Encounter for diagnostic endoscopy- Primary Other specified pre-operative examination documented in this encounter Advance Directives Documents on File Type Date Recorded Patient Civil Design Technician Expl anation Power of Nylon Machine Operator 07/30/2022 POWER OF A TTORNEY Latest [...] and were consensually agreed upon. Care Teams Computer Terminal Operator Relationship Specialty Start Date End Date Jairo Kingston MD [address] [place] [address] PCP - General 12/21/05 documented as of this encounter
--- OUTSIDE RECORDS SUMMARY | 2023-04-22 13:32 | External Medical Summary | Summary of Care ---
Author Name Unknown Organization [facility] Address [address] [place] [address] Phone [phone] Care Team Providers Care In Home Nanny Name Role Phone Jairo Kingston MD Primary Care Provider +1- [phone] Reason for Visit * Reason Onset Date Comments Follow Up 03/08/2023 COPD Proven Care Encounter Details Date Type Department Care Team (Late st Contact Info) Description 03/08/2023 Telephone Pulmonary Rehab, [facility] [address] [place] [address] Neena Wylie, MASK DESIGN ENGINEER Follow Up (COPD Proven Care ) Allergies Active Allergy Reactions Criticality Noted Date Comments Pavan Inhibitors Other (Please comment) 0 Hyperkalemia documented as of this encounter (statuses as of 03/08/2023) Medications Medication Sig Dispensed Refills Start Date [...] 0.1 % Nasal Solution (Astelin) Administer 1 [place] into nostril in the morning and 1 [place] before bedtime. 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 COPD, group C, by GOLD 2017 classification 12/27 Overview: Per COPD GOLD Classification Hypertensive heart and chron ic kidney disease with diastolic congestive heart failure 12/14/2022 History of biliary stent insertion 12/08/2022 GI bleed 12/08/2022 Benign hypertensive kidney disease, stage IV Last Assessment & Plan: Norisaiahccristina History of supraventricular tachycardia 11/12/19 Idiopathic chronic gout of foot without tophus 0 11/11/2022 Last Assessment & Plan: Allopurinol buttermaker No new attacks GINNY on CPAP 11/11/2022 [...] as of this encounter (statuses as of 03/08/2023) Resolved Problems Problem Noted Date Diagnosed Date [...] as of this encounter (statuses as of 03/08/2023) Immunizations Name Administration Dates Next Due COVID-19 [...] encounter Miscellaneous Notes * Telephone Encounter - Neena Wylie, MASK DESIGN ENGINEER - 03/08/2023 2:12 PM EST 90 day Follow-Up Phone Call Patient Name: Mikhail Fung Discharge Date: 12/11/22 Date of Call: 03/08/2023 Time of Call: 2:12 PM Patient successfully contacted? Yes Symptoms/Exposure How is your breathing? better Sputum: N/A Sputum Volume: N/A Shortness of Breath: Decrease Cough: Decrease- baseline Fatigue: Decrease Baseline Symptoms: sob with exertion Comorbid Conditions: GINNY, emphysema, AAA, hx CVA, hx GI bleed COVID-19 Screening Not indicated Readmission Screening Readmission within 30 days?: No Vaccine History Immunization History Administered Date(s) Administered COVID-19 mRNA, LNP-s, No Preserve, 2-Dose Series (Moderna) 05/22/2020, 06/19/2020, 02/19/2021 DT - Diptheria/Tetanus (PEDS) 06/11/2002 Pneumococcal Conjugate Vacc, 13 Valent (Prevnar) 06/12/2015 Pneumococcal Polysaccharide PPV23 (Pneumovax) 06/10/2014 SEASONAL INFLUENZA, PF, 6 M & Above, IM , (FLULAVAL or FLUZONE) 02/27/2018, 02/06/2019, 12/29/2019 Seasonal Influenza, Quadrivalent Hd (Fluzone Hd) 01/15/2021, 03/04/2022, 01/10/2023 TD, Preservative Free 03/04/2022 TDAP (age 10 and older)(Boostrix) 12/14/2011 Vitamin B12 Injection 01/14/2009 Follow-Up Next Pulmonary Appointment: pt follows with pulmonary at [facility] Transportation Difficulty: No Followed by or Eligible for: [facility] Have you received your education packet? Yes Would you like to review it? No Medicated Therapy Respiratory Medications/Use: Trelegy, nebulizer Difficulty Affording Respiratory Medications: Yes Oxygen Use: 02 @ 2lpm HS and prn - 02 sats run 90-97%- reviewed acceptable 02 sats-PVU Noninvasive therapy: CPAP Activity Activity Level: cathi, jerrys, gets mail Pulmonary Rehab Program discussed Interested/Eligible for Pulmonary Rehab: No- pt made aware that [facility] offers [place] also if he is very interested Advanced Care Planning As part of our comprehensive pulmonary care, we like to understand your values, goals, and priorities for your COPD care. This involves a discussion to talk more about your future care and treatment preferences. Would you be interested in discussing this further? Patient prefers: In person Advice given to patient: Instructed patient to call the Pulmonary Clinic when starting to notice early onset of COPD flare symptoms. Encouraged staying active. Does patient need additional follow up? No Neena Wylie, MASK DESIGN ENGINEER documented in this encounter Plan of Treatment Upcoming Encounters Date Type Department Care Team (Late st Contact Info) Description 03/22/2023 2:15 PM EST Hem/Onc Treatment Hematology[facility]cology [facility] [place] [facility] [address] Hannah, Chair 1 Hem Onc Scenery [address] [place] [address] 03/24/2023 3:40 PM EST Office Visit Sleep Disorders Ctr [facility] 132 [facility] [place] [phone] Shanika Fitzgerald DO 132 [facility] [place] [address] 03/25/2023 10:40 AM EST Office Visit [facility] [address] [place] [phone] Jairo Kingston MD [address] [place] [address] 04/01/2023 10:00 AM EST Home Visit [facility]inger at [facility] 132 [facility] [place] [address] Jenifer Linder, RN 132 [facility] [place] [address] 04/05/2023 2:30 PM EST Hem/Onc Treatment Hematology/Oncology Treatment, [place] 200 [facility] [address] Hannah, Chair 10 Hem Onc Scenery [address] [place] [address] 05/04/2023 11:30 AM EST Laboratory Laboratory Scenery Hannah [place] [address] [place] [phone] Hannah, Lab Scenery [address] [place] [address] 05/11/2023 2:15 PM EST Office Visit Hematology/Oncology [facility] [place] 200 [facility] [place] [address] Michael Snyder MD 200 [facility] [place] [address] 05/27/2023 2:40 PM EST Office Visit [facility] [address] [place] [address] Jairo Kingston MD [address] [place] [address] 06/02/2023 2:30 PM EST Office Visit Cardiology, [facility] [address] [place] [address] Ghanshyam Osorio PA-C [address] [place] [address] 12/13/2023 3:00 PM EDT Office Visit Nephrology, [facility] 200 [facility] [place] [address] Reggie Azevedo MD 200 [facility] [place] [address] 02/08/2024 11:30 AM EDT Appointment Radiology, [place] [address] [place] [phone] 02/08/2024 12:15 PM EDT Office Visit Vascular Surg [facility], [place] [address] [place] [address] Mikhail Suazo MD [address] [place], [place] [phone] Scheduled Procedures Name Priority Associated Diagnoses Date/Ti [...] exists LUNG CANCER SCREENING - USE SMARTSET [id number] Completed 01/27/2023, 06/25/2022, 02/08/2019, Additional history exists [...] this encounter Medical Devices Implanted Type Area Pizza Delivery Device Identifier Shelf Expiration Date Model / Serial / Lot Graft Hemasheild 20mm [id number] - [id number] Implanted:Qty: 1 on 01/13/2009 at [place] [facility] [place]/A: Abdomen MICROVASIVE [id number] / / [id number] Stent Axios [id number] - [id number] Implanted:Qty: 1 on 12/10/2022 by Lacie England MD at [facility] [employer] : ENDOSCOPY [id number] 04/06/2023 [id number] / / [id number] documented as of this encounter Advance Directives Documents on File Type Date Recorded Patient Foley Artist Expl anation Power of Straw Hat Washer Operator 07/30/2022 POWER OF A TTORNEY Latest [...] and were consensually agreed upon. Care Teams In Home Nanny Relationship Specialty Start Date End Date Jairo Kingston MD [address] [place] [address] PCP - General 12/21/05 documented as of this encounter
--- OUTSIDE RECORDS SUMMARY | 2023-04-22 13:32 | External Medical Summary | Summary of Care ---
Author Name Unknown Organization [facility] Address [address] [place] [address] Phone [phone] Care Team Providers Care Insulation Professional Name Role Phone Jairo Kingston MD Primary Care Provider +1- [phone] Reason for Visit * Reason Comments [facility]: Maintenance Encounter Details Date Type Department Care Team (Late st Contact Info) Description 02/25/2023 12:30 PM EST [facility] Visit [facility], [facility] [address] [place] [address] Jenifer Linder, RN [address] [place] [address] Allergies Active Allergy Reactions Criticality Noted Date Comments Pavan Inhibitors Other (Please comment) 0 Hyperkalemia documented as of this encounter (statuses as of 02/25/2023) Medications Medication Sig Dispensed Refills Start Date [...] 0.1 % Nasal Solution (Astelin) Administer 1 [place] into nostril in the morning and 1 [place] before bedtime. 30 mL 1 01/11/2023 Active [...] as of this encounter (statuses as of 02/25/2023) Active Problems Problem Noted Date Diagnosed Date [...] 0 11/11/2022 Last Assessment & Plan: Allopurinol longterm No new attacks GINNY on CPAP 11/11/2022 [...] as of this encounter (statuses as of 02/25/2023) Resolved Problems Problem Noted Date Diagnosed Date [...] as of this encounter (statuses as of 02/25/2023) Immunizations Name Administration Dates Next Due COVID-19 [...] Sign Reading Time Taken Comments Blood Pressure 124/64 02/25/2023 11:41 AM EST Pulse 75 02/25/2023 11:41 AM EST Temperature 36.9 C (98.4 F) 02/25/2023 11:[address] Respiratory Rate 18 02/25/2023 11:41 AM EST Oxygen Saturation 96% 02/25/2023 11:41 AM EST Inhaled Oxygen Concentration - - Weight - - Height - - Body Mass Index - - documented in this encounter Progress Notes * Jenifer Linder, RN - 02/25/2023 12:30 PM EST [facility] Trouble Tracer Visit Date: 02/25/2023 Time: 11:38 AM Name: Mikhail Fung : 1950 Current Concerns: Pt seen for return RNCM visit Had endoscopy earlier this week and afterwards developed a severe headache - went to ED and found to be hypertensive. Was given IV metoprolol and hydralazine and then came back to baseline and was discharged home He reports feeling well today Denies increased SOB He reports he does continue have a cough with small amt clear to white mucus Edema of LE is +1 - has compression socks but does not wear them, states "I don't like them" He reports he does try to elevate LE as much as possible Vitals stable Physical Exam: BP 124/64 | Pulse 75 | Temp 36.9 C (98.4 F) | Resp 18 | SpO2 96% Pain 0 Physical Exam Constitutional: General: He is not in acute distress. Cardiovascular: Rate and Rhythm: Normal rate and regular rhythm. Pulses: Normal pulses. Heart sounds: Normal heart sounds. Pulmonary: Effort: Pulmonary effort is normal. Breath sounds: Normal breath sounds. Abdominal: General: Bowel sounds are normal. Palpations: Abdomen is soft. Musculoskeletal: Right lower leg: Edema (+1) present. Left lower leg: Edema (+1) present. Skin: General: Skin is warm and dry. Coloration: Skin is pale. Neurological: Mental Status: He is alert and oriented to person, place, and time. Problems/Symptoms: Review of Systems Constitutional: Negative. HENT: Negative. Eyes: Negative. Respiratory: Positive for cough (small amt clear to white sputum) and shortness of breath (CAMARENA - atbasleine). Cardiovascular: Positive for leg swelling. Gastrointestinal: Negative. [...] am and off in pm Pulmonary f/u this month Home Interventions Provided: Home Intervention: Other; eval Reinforced current Plan of Care, including self-management and medication regimen Patient's 'Red Flags': Increased SOB Increased weakness/fatigue Increased cough with yellow/green sputum Patient Needs to Remember: Call [facility] at with any new or worsening health concerns or problems, red flag symptoms. Referrals Needed: Other none Follow Up: Is there cellular connectivity/connectivity in the home? Yes Does the patient have internet in the home? Yes Patient encouraged to call the intake phone number for all urgent but not emergent issues. Is the patient new to [facility] within the last 30 days? No, Assess appropriateness for upcoming telehealth visits. Cancel telehealth visits & schedule home visit with care produce team lead(s)as indicated. Provider is in agreement with Plan of Care: Yes Scheduled to follow up with patient in one month. Jenifer Linder RN 02/25/2023 11:38 AM documented in this encounter Plan of Treatment Upcoming Encounters Date Type Department Care Team (Late st Contact Info) Description 03/09/2023 3:00 PM EST Office Visit Pulmonary Medicine Tk Hernandez [address] [place] [address] Andrez Velez MD [address] [place] [address] 03/22/2023 2:15 PM EST Hem/Onc Treatment Hematology/Oncology Treatment, [place] 200 [facility] [place] [facility] [address] Hannah, Chair 1 Hem Onc Scenery 200 [place] [address] 03/24/2023 3:40 PM EST Office Visit Sleep Disorders Ctr Yas[facility]en [facility] [address] [place] [phone] Shanika Fitzgerald DO [address] [place] [address] 03/25/2023 10:40 AM EST [address] [phone] Jairo Kingston MD [address] [place] [address] 04/01/2023 10:00 AM EST [facility] Visit [facility], [facility] [address] [place] [address] Jenifer Linder, RN [address] [place] [address] 04/05/2023 2:30 PM EST Hem/Onc Treatment Hematology/Oncology Treatment, [place] [address] [place], [place] [address] Hannah, Chair 10 Hem Onc [facility] [address] [place] [address] 05/04/2023 11:30 AM EST Laboratory Laboratory [facility] [place] [address] [place] [phone] Hannah, Lab [facility] 200 [facility] [place], [place] [address] 05/11/2023 2:15 PM EST Office Visit Hematology/Oncology [facility] [address] [place], [place] [address] Michael Snyder MD [address] [place], [place] [address] 05/27/2023 2:40 PM EST Office Visit [facility] Practice, [place] [address] [facility] [phone] Jairo Kingston MD [address] [place] [address] 06/02/2023 2:30 PM EST Office Visit Cardiology, [facility] [address] [place] [address] Ghanshyam Osorio PA-C [address] [place] [address] 12/13/2023 3:00 PM EDT Office Visit Nephrology, [place] [address] [facility] [address] [place] [address] Reggie Azevedo MD 200 [facility] [place] [address] 02/08/2024 11:30 AM EDT Appointment Radiology, [place] [address] [place] [phone] 02/08/2024 12:15 PM EDT Office Visit Vascular Surg [facility], [place] [address] [place] [address] Mikhail Suazo MD [address] [place], [place] [phone] Scheduled Procedures Name Priority Associated Diagnoses Date/Ti [...] exists LUNG CANCER SCREENING - USE SMARTSET [id number] Completed 01/27/2023, 06/25/2022, 02/08/2019, Additional history exists [...] this encounter Medical Devices Implanted Type Area Timber Sizer Operator Device Identifier Shelf Expiration Date Model / Serial / Lot Graft Hemasheild 20mm [id number] - [id number] Implanted:Qty: 1 on 01/13/2009 [place] [facility] [place]: Abdomen MICROVASIVE [id number] / / [id number] Stent Axios [id number] - [id number] Implanted:Qty: 1 on 12/10/2022 by Lacie England MD at OR [facility] [employer] : ENDOSCOPY [id number] 04/06/2023 [id number] / / [id number] documented as of this encounter Advance Directives Documents on File Type Date Recorded Patient Family Day Care Worker Expl anation Power of Hyperbaric Technician 07/30/2022 POWER OF A TTORNEY Latest Code [...] and were consensually agreed upon. Care Teams Insulation Professional Relationship Specialty Start Date End Date Jairo Kingston MD [address] [place] [address] PCP - General 12/21/05 documented as of this encounter
[2023-04-22] MEDS: PIPERACILLIN/TAZOBACTAM 4.5 GM in DEXTROSE 5% MINI-B 100 ML IV SCH ×2 (15:17→22:58)
[2023-04-22 18:16] LABS: Hematocrit (blood only) 33.1 % (42.0-52.0); Hemoglobin 10.2 g/dl (14.0-18.0)
[2023-04-23] MEDS: PANTOprazole 40 MG in DEXTROSE 5% MINI-B 100 ML IV SCH ×5 (03:23→19:00)
[2023-04-23] MEDS: PIPERACILLIN/TAZOBACTAM 4.5 GM in DEXTROSE 5% MINI-B 100 ML IV SCH ×3 (06:14→22:00)
[2023-04-23 06:47] LABS: Calcium 8.5 mg/dl (8.6-10.3); Creatinine Clr Calc Pharmacy 27.7 ml/min; Est GFR (African American) 29.2 ml/min; Est GFR (Non-African American) 25.2 ml/min; Potassium 4.1 mmol/L (3.5-5.1)
[2023-04-23 06:52] LABS: Basophils # (auto) 0.08 K/uL (0.00-0.20); Basophils % (auto) 0.7 %; Eosinophils # (auto) 0.39 K/uL (0.00-0.50); Eosinophils % (auto) 3.3 %; Hematocrit (blood only) 32.8 % (42.0-52.0); Hemoglobin 10.3 g/dl (14.0-18.0); Immature Granulocytes # (auto) 0.08 K/uL (0.01-0.20); Immature Granulocytes % (auto) 0.7 %; Lymphocytes # (auto) 0.86 K/uL (1.20-3.40); Lymphocytes % (auto) 7.3 %; Mean Corpuscular Hemoglobin 30.1 pg (25.0-34.0); Mean Corpuscular Hgb Conc 31.4 g/dL (32.0-36.0); Mean Corpuscular Volume 95.9 fL (80.0-100.0); Mean Platelet Volume 9.8 fL (9.4-12.4); Monocytes # (auto) 0.92 K/uL (0.11-0.59); Monocytes % (auto) 7.8 %; Neutrophils # (auto) 9.39 K/uL (1.40-6.50); Neutrophils % (auto) 80.2 %; Platelet Count 282 K/uL (130-400); RDW Coefficient of Variation 16.9 % (11.5-14.5); RDW Standard Deviation 59.7 fL (36.4-46.3); Red Blood Count 3.42 M/uL (4.70-6.10); White Blood Count 11.72 K/ul (4.8-10.8)
[2023-04-23] MEDS: ALBUT/IPRATROP 3MG/0.5MG NEB 3 ML VIAL NEB SCH ×2 (07:13→19:12)
[2023-04-23] MEDS: SODIUM CHLOR 7% 4 ML NEB NEB SCH ×2 (07:13→19:28)
[2023-04-23] MEDS: DOXYCYCLINE HYCLATE 100 MG in DEXTROSE 5% MINI-B 100 ML IV SCH ×2 (08:25→21:58)
[2023-04-23] MEDS: METOPROLOL TARTRATE 25 MG TAB PO SCH ×2 (08:25→21:59)
[2023-04-23] MEDS: allopurinoL 300 MG TAB PO SCH (08:26)
[2023-04-23] MEDS: EZETIMIBE 10 MG TAB PO SCH (08:26)
[2023-04-23] MEDS: FERROUS SULFATE 325 MG TAB PO SCH (08:26)
[2023-04-23] MEDS: ATORVASTATIN 40 MG TAB PO SCH (08:26)
[2023-04-23] MEDS: UMECLIDINIUM/VILANTEROL 62.5/25MCG 7 PUFFS/INHALER INH SCH (09:41)
[2023-04-23] MEDS: FLUTICASONE PROPIONATE NA SPR 16 GM BTL SCH (09:41)
[2023-04-23] MEDS: AZELASTINE HCL 0.1% NASAL 200 SPRAYS/27,400 MCG BTL SCH ×2 (09:41→21:59)
[2023-04-23] MEDS: FLUTICASONE FUROATE 100MCG 14 PUFFS/INHALER INH SCH (09:41)
--- NOTE | 2023-04-23 09:56 | Communication Note ---
Date of Service: April 23, 2023 H/H remain stable. Will follow his chart over the weekend
[2023-04-23] MEDS: ASCORBIC ACID 500 MG TAB PO SCH (13:38)
--- NOTE | 2023-04-23 13:59 | Hospitalist Progress Note ---
Date of Service April 23, 2023 Assessment & Plan (1) GI bleed: Plan: 72-year-old male with past medical history significant for hyperlipidemia, hyperparathyroidism, idiopathic chronic gout, COPD, obstructive sleep apnea on CPAP, hypertension, left renal artery stenosis, abdominal aortic aneurysm, severe aortic stenosis, chronic diastolic CHF, shaggy aorta syndrome, chronic kidney stage IV, iron deficiency anemia due to chronic blood loss, Waldenstrm's macroglobulinemia, history of AAA repair, history of CVA, history of SVT, history of biliary stent insertion, recently had multiple admission for GI bleed currently on iron infusions presents with cough and melena Upper GI bleed Patient presents with melena for several weeks. Hemoccult positive in the ER Hemoglobin stable around 10 Recent EGD in February showed 2 nonbleeding angioectasias in the stomach GI discussed with patient's daughter; the initial plan was to do EGD in April 22, 2021. However, GI recommended that his respiratory status improves before considering EGD. Continue PPI drip Continue to monitor signs of upper GI bleed. Pneumonia Hemoptysis Cough is ongoing since last 1 month Last couple of days having some hemoptysis he seems he is getting better Ct chest personally reviewed multifocal infiltrates on the right side Sputum culturehaemophilus species Airway clearance with DuoNeb and hypertonic saline. Continue Zosyn and doxycycline; plan to treat for 7 days. History of COPD Chronic respiratory failure on 3 L oxygen Continue home inhalers Nebs as needed Obstructive sleep apnea CPAP nightly Chronic diastolic CHF Severe aortic stenosis Resume home Lasix CKD stage IV Creatinine 2.5 with seems to be around baseline History of CVAs On statin EKG personally reviewed; normal sinus rhythm with no ST or T wave changes History of gout On allopurinol Hypertension On amlodipine, metoprolol, Lasix Monitor Hyperlipidemia On statin DVT prophylaxis SCDs Disposition : Patient admitted with pneumonia and concern for upper GI bleed. Requires close monitoring of recurrence of GI bleed and treatment of underlying pneumonia. time spent evaluating patient, direct bedside care, chart review, placing orders, interpretation of diagnostic studies, discussion with consultants, patient, and family members, as well as other required patient management activities is 50 minutes Please note the above document was generated using voice recognition software. It may contain grammatical, syntax or spelling errors. Any formal questions or concerns about the content, text or information contained within the body of this dictation should be directly addressed to the provider for clarification Admission and Anticipated Discharge Date Admission Date: April 22, 2023 Subjective Patient seen and examined at bedside. Reports that he has been coughing up mucus. Reports that his lungs are clearing up. Comfortable; not in distress. Denies fever, chills, chest pain, shortness of breath, abdominal pain or urinary symptoms. No significant overnight events Review of Systems Review of Systems: All systems reviewed & are unremarkable except as noted in Subjective Physical Exam Physical Exam: Constitutional: WD/WN, vitals as above, NAD, sitting up in bed, pleasant, conversing easily Respiratory: Crackles present on right lower lobe. Cardiovascular: RRR, no murmur, no edema Vessels: no JVD or carotid bruit Chest: normal inspection of chest Abdomen: normal bowel sounds, soft, nontender, no hepatosplenomegaly Musculoskeletal: no cyanosis or clubbing, extremities motor strength 5/5 Skin: no rashes, warm and dry normal turgor Neurologic: PERRL, EOMI, accommodation nl, no face palsy, no dysarthria CN's II- XI intact bilaterally and moves all extremities Psychiatric: A+Ox3, euthymic affect Results & Data Results & Data Vital Signs (Past 12 Hours) Vital Signs Temp Pulse Pulse Resp BP Pulse Ox O2 Del Method 04/23/23 11:50 36.8 C 60 18 124/72 96 Nasal Cannula 04/23/23 09:20 Nasal Cannula 04/23/23 08:08 36.7 C 54 L 18 126/70 93 Room Air 04/23/23 07:16 66 18 96 Nasal Cannula 04/23/23 05:57 64 04/23/23 03:00 36.8 C 67 21 169/83 H 98 Nasal Cannula O2 Flow Rate 04/23/23 11:50 3 04/23/23 09:20 3 04/23/23 08:08 04/23/23 07:16 3 04/23/23 05:57 04/23/23 03:00 (1) GI bleed GI bleed type/associated pathology: unspecified gastrointestinal hemorrhage type Qualified Code(s): K92.2 - Gastrointestinal hemorrhage, unspecified
[2023-04-23] MEDS: FUROSEMIDE 20 MG TAB PO SCH (16:36)
[2023-04-24] MEDS: PANTOprazole 40 MG in DEXTROSE 5% MINI-B 100 ML IV SCH ×3 (00:01→10:10)
[2023-04-24] MEDS: PIPERACILLIN/TAZOBACTAM 4.5 GM in DEXTROSE 5% MINI-B 100 ML IV SCH ×3 (06:09→23:01)
[2023-04-24] MEDS: SODIUM CHLOR 7% 4 ML NEB NEB SCH ×2 (07:11→19:35)
[2023-04-24] MEDS: ALBUT/IPRATROP 3MG/0.5MG NEB 3 ML VIAL NEB SCH ×2 (07:11→19:35)
[2023-04-24 07:46] LABS: Albumin Globulin Ratio 0.9 (0.9-2); Albumin Level 3.2 gm/dl (3.4-5.0); BUN Creatinine Ratio 12.9 (10-20); Bilirubin,Total 0.4 mg/dl (0.2-1.0); Calcium 8.5 mg/dl (8.6-10.3); Creatinine Clr Calc Pharmacy 28.9 ml/min; Est GFR (African American) 30.8 ml/min; Est GFR (Non-African American) 26.5 ml/min; Globulin 3.5 gm/dl (2.5-4.0); Total Protein 6.7 gm/dl (6.0-8.3)
[2023-04-24] MEDS: UMECLIDINIUM/VILANTEROL 62.5/25MCG 7 PUFFS/INHALER INH SCH (08:19)
[2023-04-24] MEDS: FLUTICASONE FUROATE 100MCG 14 PUFFS/INHALER INH SCH (08:19)
[2023-04-24] MEDS: AZELASTINE HCL 0.1% NASAL 200 SPRAYS/27,400 MCG BTL SCH ×2 (08:20→20:53)
[2023-04-24] MEDS: METOPROLOL TARTRATE 25 MG TAB PO SCH ×2 (08:20→20:54)
[2023-04-24] MEDS: FERROUS SULFATE 325 MG TAB PO SCH (08:20)
[2023-04-24] MEDS: ATORVASTATIN 40 MG TAB PO SCH (08:20)
[2023-04-24] MEDS: FLUTICASONE PROPIONATE NA SPR 16 GM BTL SCH (08:20)
[2023-04-24] MEDS: allopurinoL 300 MG TAB PO SCH (08:20)
[2023-04-24] MEDS: EZETIMIBE 10 MG TAB PO SCH (08:21)
[2023-04-24 08:31] LABS: Hematocrit (blood only) 32.9 % (42.0-52.0); Hemoglobin 10.4 g/dl (14.0-18.0); Mean Corpuscular Hemoglobin 30.2 pg (25.0-34.0); Mean Corpuscular Hgb Conc 31.6 g/dL (32.0-36.0); Mean Corpuscular Volume 95.6 fL (80.0-100.0); Mean Platelet Volume 10.2 fL (9.4-12.4); Platelet Count 276 K/uL (130-400); RDW Coefficient of Variation 16.7 % (11.5-14.5); RDW Standard Deviation 59.5 fL (36.4-46.3); Red Blood Count 3.44 M/uL (4.70-6.10); White Blood Count 11.41 K/ul (4.8-10.8)
[2023-04-24 08:54] LABS: Basophils # (auto) 0.07 K/uL (0.00-0.20); Basophils % (auto) 0.6 %; Eosinophils # (auto) 0.69 K/uL (0.00-0.50); Immature Granulocytes % (auto) 0.9 %; Lymphocytes # (auto) 1.07 K/uL (1.20-3.40); Lymphocytes % (auto) 9.4 %; Monocytes # (auto) 1.07 K/uL (0.11-0.59); Monocytes % (auto) 9.4 %; Neutrophils # (auto) 8.41 K/uL (1.40-6.50); Neutrophils % (auto) 73.7 %; Platelet Estimate Normal (Normal); RBC Morphology Unremarkable
[2023-04-24] MEDS: FUROSEMIDE 20 MG TAB PO SCH ×2 (10:06→17:26)
[2023-04-24] MEDS: ASCORBIC ACID 500 MG TAB PO SCH (10:09)
[2023-04-24] MEDS: DOXYCYCLINE HYCLATE 100 MG in DEXTROSE 5% MINI-B 100 ML IV SCH ×2 (10:10→20:52)
--- NOTE | 2023-04-24 13:32 | Hospitalist Progress Note ---
Date of Service April 24, 2023 Assessment & Plan (1) GI bleed: Plan: 72-year-old male with past medical history significant for hyperlipidemia, hyperparathyroidism, idiopathic chronic gout, COPD, obstructive sleep apnea on CPAP, hypertension, left renal artery stenosis, abdominal aortic aneurysm, severe aortic stenosis, chronic diastolic CHF, shaggy aorta syndrome, chronic kidney stage IV, iron deficiency anemia due to chronic blood loss, Waldenstrm's macroglobulinemia, history of AAA repair, history of CVA, history of SVT, history of biliary stent insertion, recently had multiple admission for GI bleed currently on iron infusions presents with cough and melena Upper GI bleed Patient presents with melena for several weeks. Hemoccult positive in the ER Hemoglobin stable around 10 Recent EGD in February showed 2 nonbleeding angioectasias in the stomach GI discussed with patient's daughter; the initial plan was to do EGD in April 22, 2021. However, GI recommended that his respiratory status improves before considering EGD. On Protonix 40 mg twice daily Continue to monitor signs of upper GI bleed. N.p.o. for midnight for possible EGD tomorrow. Pneumonia Hemoptysis Presents with cough with mucus production. Ct chest personally reviewed multifocal infiltrates on the right side Sputum culturehaemophilus species Airway clearance with DuoNeb and hypertonic saline. Continue Zosyn and doxycycline; plan to treat for 7 days. History of COPD Chronic respiratory failure on 3 L oxygen Continue home inhalers Nebs as needed Obstructive sleep apnea CPAP nightly Chronic diastolic CHF Severe aortic stenosis Resume home Lasix CKD stage IV Creatinine 2.5 with seems to be around baseline History of CVAs On statin EKG personally reviewed; normal sinus rhythm with no ST or T wave changes History of gout On allopurinol Hypertension On amlodipine, metoprolol, Lasix Monitor Hyperlipidemia On statin DVT prophylaxis SCDs Disposition : Patient admitted with pneumonia and concern for upper GI bleed. Requires close monitoring of recurrence of GI bleed and treatment of underlying pneumonia. time spent evaluating patient, direct bedside care, chart review, placing orders, interpretation of diagnostic studies, discussion with consultants, patient, and family members, as well as other required patient management activities is 50 minutes Please note the above document was generated using voice recognition software. It may contain grammatical, syntax or spelling errors. Any formal questions or concerns about the content, text or information contained within the body of this dictation should be directly addressed to the provider for clarification Admission and Anticipated Discharge Date Admission Date: April 22, 2023 Subjective Patient seen and examined at bedside. Reports that he has been coughing up mucus. Reports that his lungs are clearing up. Continues to report dark stools. Comfortable; not in distress. Denies fever, chills, chest pain, shortness of breath, abdominal pain or urinary symptoms. No significant overnight events Review of Systems Review of Systems: All systems reviewed & are unremarkable except as noted in Subjective Physical Exam Physical Exam: Constitutional: WD/WN, vitals as above, NAD, sitting up in bed, pleasant, conversing easily Respiratory: Crackles present on right lower lobe. Cardiovascular: RRR, no murmur, no edema Vessels: no JVD or carotid bruit Chest: normal inspection of chest Abdomen: normal bowel sounds, soft, nontender, no hepatosplenomegaly Musculoskeletal: no cyanosis or clubbing, extremities motor strength 5/5 Skin: no rashes, warm and dry normal turgor Neurologic: PERRL, EOMI, accommodation nl, no face palsy, no dysarthria CN's II- XI intact bilaterally and moves all extremities Psychiatric: A+Ox3, euthymic affect Results & Data Results & Data Vital Signs (Past 12 Hours) Vital Signs Temp Pulse Resp BP Pulse Ox O2 Del Method O2 Flow Rate 04/24/23 11:05 36.4 C L 57 L 18 112/65 97 Nasal Cannula 3 04/24/23 08:05 36.9 C 70 18 135/67 96 Nasal Cannula 3 04/24/23 07:11 66 18 96 Nasal Cannula 3 04/24/23 02:57 36.8 C 61 18 143/82 H 97 Nasal Cannula 3 (1) GI bleed GI bleed type/associated pathology: unspecified gastrointestinal hemorrhage type Qualified Code(s): K92.2 - Gastrointestinal hemorrhage, unspecified
[2023-04-24] MEDS: PANTOprazole 40 MG in SYRINGE 0 ML IV SCH (20:54)
[2023-04-25] MEDS: PIPERACILLIN/TAZOBACTAM 4.5 GM in DEXTROSE 5% MINI-B 100 ML IV SCH (05:17)
[2023-04-25] MEDS: ALBUT/IPRATROP 3MG/0.5MG NEB 3 ML VIAL NEB SCH (07:14)
[2023-04-25] MEDS: SODIUM CHLOR 7% 4 ML NEB NEB SCH (07:14)
[2023-04-25] MEDS: DOXYCYCLINE HYCLATE 100 MG in DEXTROSE 5% MINI-B 100 ML IV SCH (07:37)
[2023-04-25 08:06] LABS: Albumin Globulin Ratio 0.9 (0.9-2); Albumin Level 3.3 gm/dl (3.4-5.0); BUN Creatinine Ratio 10.5 (10-20); Bilirubin,Total 0.4 mg/dl (0.2-1.0); Calcium 8.8 mg/dl (8.6-10.3); Creatinine Clr Calc Pharmacy 26.3 ml/min; Est GFR (African American) 27.3 ml/min; Est GFR (Non-African American) 23.6 ml/min; Globulin 3.6 gm/dl (2.5-4.0); Potassium 3.9 mmol/L (3.5-5.1); Total Protein 6.9 gm/dl (6.0-8.3)
[2023-04-25] MEDS: FLUTICASONE FUROATE 100MCG 14 PUFFS/INHALER INH SCH (08:36)
[2023-04-25] MEDS: FERROUS SULFATE 325 MG TAB PO SCH (08:37)
[2023-04-25] MEDS: UMECLIDINIUM/VILANTEROL 62.5/25MCG 7 PUFFS/INHALER INH SCH (08:37)
[2023-04-25] MEDS: AZELASTINE HCL 0.1% NASAL 200 SPRAYS/27,400 MCG BTL SCH (08:37)
[2023-04-25] MEDS: EZETIMIBE 10 MG TAB PO SCH (08:37)
[2023-04-25] MEDS: METOPROLOL TARTRATE 25 MG TAB PO SCH (08:38)
[2023-04-25] MEDS: allopurinoL 300 MG TAB PO SCH (08:38)
[2023-04-25] MEDS: FLUTICASONE PROPIONATE NA SPR 16 GM BTL SCH (08:39)
[2023-04-25] MEDS: PANTOprazole 40 MG in SYRINGE 0 ML IV SCH (08:39)
[2023-04-25] MEDS: FUROSEMIDE 20 MG TAB PO SCH (08:39)
[2023-04-25] MEDS: ATORVASTATIN 40 MG TAB PO SCH (08:39)
[2023-04-25 09:19] LABS: Basophils # (auto) 0.08 K/uL (0.00-0.20); Basophils % (auto) 0.7 %; Echinocytes 1+; Eosinophils # (auto) 0.75 K/uL (0.00-0.50); Eosinophils % (auto) 6.6 %; Hematocrit (blood only) 34.5 % (42.0-52.0); Hemoglobin 10.8 g/dl (14.0-18.0); Immature Granulocytes # (auto) 0.14 K/uL (0.01-0.20); Immature Granulocytes % (auto) 1.2 %; Lymphocytes # (auto) 1.14 K/uL (1.20-3.40); Mean Corpuscular Hemoglobin 30.2 pg (25.0-34.0); Mean Corpuscular Hgb Conc 31.3 g/dL (32.0-36.0); Mean Corpuscular Volume 96.4 fL (80.0-100.0); Monocytes # (auto) 0.99 K/uL (0.11-0.59); Monocytes % (auto) 8.7 %; Neutrophils # (auto) 8.25 K/uL (1.40-6.50); Neutrophils % (auto) 72.8 %; Platelet Count 278 K/uL (130-400); RDW Coefficient of Variation 16.7 % (11.5-14.5); Red Blood Count 3.58 M/uL (4.70-6.10); White Blood Count 11.35 K/ul (4.8-10.8)
--- NOTE | 2023-04-25 09:19 | Gastroenterology Progress Note ---
Date of Service April 25, 2023 Assessment & Plan (1) GI bleed: (2) Anemia: (3) Current use of custodial anticoagulation: Plan: 72 year old male with history ofchronic respiratory failure secondary to COPD on home O2, GINNY/nocturnal hypoxemia on CPAP, history PSVT, valvular heart disease (severe , mild AR), history TAA, AAA status post surgery, hx recurrent CVA (hx shaggy aorta syndrome) on Eliquis and Plavix, hypertension, hyperlipidemia, CRI (baseline creatinine 2s), GERD, chronic anemia (hemoglobin of 8), Waldenstrom macroglobulinemia, past tobacco abuse, acute cholecystitis s/p EGD/EUS/ERCP with removal of CBD stone, transpapillary gallbladder stenting for decompression by Dr. England w/ EUS guided GB drainage admitted with black stools and hemoptysis, CT imaging showing pneumonia. EGD cancelled last week due to pneumonia. His blood ct has been stable for days wo terri s/s of GI bleeding. Recommend OP EGD in 6 weeks' time. May advance diet as tolerated. Pls recall GI prn. Admission and Anticipated Discharge Date Admission Date: April 22, 2023 Supervising Physician Co-Signing Physician Notes I saw and evaluated the patient, of not his hb/hct have remained stable over the weekend and the patient is without melena or hematemesis. Recomendation OP egd in 4 to 6 weeks to allow time for patient's respiratory status to improved hold anticoagulation for 1 week continue a daily PPI (protonix or Omeprazole 40 mg per day) Please consider use of an OP iron supplement for 3 months avoid use of nsaids gi to sign off. Subjective Pt denies rectal bleeding, abd pain, n/v. Hgb been stable for days now around 10. Review of Systems Review of Systems: All systems reviewed & are unremarkable except as noted in HPI & below Physical Exam Constitutional: WD/WN, vitals as above well groomed, cooperative and comfortable Eyes: PERRL, conjunctivae normal, anicteric sclerae ENMT: external ear and nose normal, oropharynx normal Respiratory: Diminished lung sound, + ronchi on upper lobes Cardiovascular: RRR, no murmur, no edema Gastrointestinal (Abdomen): normal bowel sounds, soft, nontender, no hepa tosplenomegaly Skin: no rashes, warm and dry no jaundice Psychiatric: A+Ox3, euthymic affect Lymphatic: no lymphedema Results & Data Vital Signs (Past 12 Hours) Vital Signs Temp Pulse Pulse Resp BP BP Pulse Ox 04/25/23 08:00 36.5 C 71 18 124/76 96 04/25/23 07:14 70 18 95 04/25/23 02:56 36.6 C 75 20 108/69 94 04/24/23 22:06 69 04/24/23 22:00 36.8 C 66 20 171/90 H 98 O2 Del Method O2 Flow Rate 04/25/23 08:00 Nasal Cannula 3 04/25/23 07:14 Nasal Cannula 3 04/25/23 02:56 Nasal Cannula 3 04/24/23 22:06 04/24/23 22:00 Nasal Cannula (1) GI bleed GI bleed type/associated pathology: unspecified gastrointestinal hemorrhage type Qualified Code(s): K92.2 - Gastrointestinal hemorrhage, unspecified (2) Anemia Anemia type: unspecified type Qualified Code(s): D64.9 - Anemia, unspecified
[2023-04-25] MEDS: ASCORBIC ACID 500 MG TAB PO SCH (10:52)
[2023-04-25] MEDS ORDERED: cefTRIAXone SODIUM 2,000 MG in DEXTROSE 5 % MINI-B 50 ML IV SCH (11:00)
--- NOTE | 2023-04-25 12:46 | Discharge Summary ---
Date of Service April 25, 2023 Admission HPI Per Admitting Provider 72-year-old male with past medical history significant for hyperlipidemia, hyperparathyroidism, idiopathic chronic gout, COPD, obstructive sleep apnea on CPAP, hypertension, left renal artery stenosis, abdominal aortic aneurysm, severe aortic stenosis, chronic diastolic CHF, shaggy aorta syndrome, chronic kidney stage IV, iron deficiency anemia due to chronic blood loss, Waldenstrm's macroglobulinemia, history of AAA repair, history of CVA, history of SVT, history of biliary stent insertion, recently had multiple admission for GI bleed currently on iron infusions and says next infusion is tomorrow, Plavix is discontinued currently is on Eliquis 2.5 units twice daily comes because of black stools and also some blood in the mucus while coughing. States he was doing okay until the last couple of days when he noticed some black stools. He is having ongoing cough for 1 month. The last couple of days he brought some blood in the mucus. But he says the blood in the mucus is getting better. Seems he called PCPs office and advised to hold Eliquis for 5 days and prescribed prednisone and Augmentin and ordered chest x-ray. Home health nurse checking him today advised to come to the ER because of his ongoing issues. Hemoglobin stable. Denies any chest pain. Says he is short of breath uses oxygen 3 L all the time. Denies any headache. Has some runny nose. Has dry throat. No difficulty swallowing. Denies any abdominal pain. His balance is not great but ambulates okay without support. Lives with his . Currently hemodynamics are stable. Past medical history. As mentioned above Past surgical history. Abdominal aortic aneurysm repair, colonoscopy with biopsy, EGD, EGD with cyst drainage, EGD with endoscopic ultrasound, ERCP, incisional hernia repair and lysis of adhesions laparoscopically. Lumbar disc excision, tonsillectomy, tear duct system surgery. Social history. . Quit smoking in 2008. Smoked 1 pack a day for 35 years. Alcohol 3 standard drinks per week. No drug use. Family history. Father had AAA. Mother had dialysis. Brother hypertension. Heart disease. Sister has heart disease. Admission Exam Per Admitting Provider General- Not in distress. Head- atraumatic Eyes- PERRL. ENT- oropharynx clear Neck- supple, no JVD. Lungs- clear to auscultation no wheezing or crackles. Heart- regular rhythm; no murmur, no gallop. Abdomen- normal bowel sounds, soft, nontender, no distension. Extremities- no pretibial edema, no erythema seen. Neuro- alert, oriented x 3; PERRL, no facial palsy; no dysarthria; moves extremities. Skin- warm & dry Principal Diagnosis Upper GI bleed Pneumonia Discharge Exam Constitutional: WD/WN, vitals as above, NAD, sitting up in bed, pleasant, conversing easily Respiratory: Bilateral clear breath sound. No added sound. Cardiovascular: RRR, no murmur, no edema Vessels: no JVD or carotid bruit Chest: normal inspection of chest Abdomen: normal bowel sounds, soft, nontender, no hepatosplenomegaly Musculoskeletal: no cyanosis or clubbing, extremities motor strength 5/5 Skin: no rashes, warm and dry normal turgor Neurologic: PERRL, EOMI, accommodation nl, no face palsy, no dysarthria CN's II- XI intact bilaterally and moves all extremities Psychiatric: A+Ox3, euthymic affect Discharge Data Allergies Allergy/AdvReac Type Severity Reaction Status Date / Time RUBENS Inhibitors AdvReac Unknown DROPS Verified 04/21/23 16:12 BLOOD PRESSURE lisinopril AdvReac Unknown DROPS Verified 04/21/23 16:12 BLOOD PRESSURE Consultations 04/22/23 08:00 Consult Gastroenterology Routine Procedures Performed Operation Date: 04/22/23 16:30 <No data on this case meets the specified criteria> Ordered Studies 04/22/23 02:34 CT chest diagnostic wo con Urgent Hospital Course (1) GI bleed: 72-year-old male with past medical history significant for hyperlipidemia, hyperparathyroidism, idiopathic chronic gout, COPD, obstructive sleep apnea on CPAP, hypertension, left renal artery stenosis, abdominal aortic aneurysm, severe aortic stenosis, chronic diastolic CHF, shaggy aorta syndrome, chronic kidney stage IV, iron deficiency anemia due to chronic blood loss, Waldenstrm's macroglobulinemia, history of AAA repair, history of CVA, history of SVT, histo ry of biliary stent insertion, recently had multiple admission for GI bleed currently on iron infusions presents with cough and melena. Upper GI bleed Patient presents with melena for several weeks. Hemoccult positive in the ER Recent EGD in February showed 2 nonbleeding angioectasias in the stomach Patient was admitted to telemetry floor for close monitoring. The initial plan was to do EGD in April 22, 2021. However, GI recommended that his respiratory status improves before considering EGD. Hemoglobin remained stable throughout the hospitalization around 10 GI recommended to have outpatient endoscopy in 6 weeks. They recommended to hold off on Eliquis for a week as well. Pneumonia Presents with cough with mucus production. Ct chest personally reviewed multifocal infiltrates on the right side Sputum culturehaemophilus species Patient was treated with airway clearance therapy during the hospitalization. He was also placed on Zosyn and doxycycline. His oxygen requirement remained at 3 L by nasal cannula throughout the hospitalization. He was discharged on oral antibiotics. Patient to follow-up with PCP and GI. Please note the above document was generated using voice recognition software. It may contain grammatical, syntax or spelling errors. Any formal questions or concerns about the content, text or information contained within the body of this dictation should be directly addressed to the provider for clarification Total Time Total Time Spent Total Time Spent (In Minutes): 35 Total Time Includes: Examination of the Patient, Discharge Planning, Medication Reconciliation, Communication With Other Providers and Other Discharge Plan Discharge Items Patient Disposition: Home - Self-Care Reason For Visit: GI BLEED Discharge Diagnosis: Upper GI bleed Pneumonia Activity: Resume your previous activity Non-emergency contact: Primary Care Provider Call non-emergency contact if: you have any medication questions and your symptoms worsen Follow-up/Referrals: Jairo Kingston MD [Primary Care Provider] - (Date & Time 04/28/2023 11:20 AM Provider Jairo Kingston MD [facility] ) Judy Nelson CRNP [Nurse Practitioner] - (The GI office will contact you to schedule follow up testing.) Diet: Regular Addtl Attending Provider Instructions: You were admitted to the hospital due to following condition: 1) Pneumonia; you are treated with antibiotics during the hospitalization. You are prescribed cefdinir and doxycycline to be taken twice daily for 4 more days to complete the antibiotic course. 2) Upper GI bleed: You are seen by GI doctor during the hospitalization. Your hemoglobin was stable throughout the hospitalization. They recommend that you continue Protonix to be taken twice daily. They also recommended that you are off Eliquis for 1 week. Please also do not take iron tablets for 1 week as it can also cause dark stools. An appointment will be set up with your primary care doctor for sometime later this week or next week. Please follow-up with them and repeat complete blood count to check on your blood levels. Pending Studies at Discharge: No Stand-Alone Forms: [facility], Smoking Cessation Medications and DC Order Prescriptions: New cefdinir 300 mg capsule 300 mg PO BID 4 Days Qty: 8 0RF doxycycline hyclate 100 mg capsule 100 mg PO BID 4 Days Qty: 8 0RF Continued Trelegy Ellipta 100-62.5-25 mcg blister with device 1 inh inhalation QAM fluticasone propionate 50 mcg/actuation spray,suspension 2 spray INTRANASAL DAILY ascorbic acid (vitamin C) 250 mg Tablet 125 mg PO QDL pantoprazole 40 mg tablet,delayed release (DR/EC) 40 mg PO AMHS Qty: 60 0RF atorvastatin 80 mg tablet 80 mg PO QAM Patient Comments: around 11 am or so. ipratropium-albuterol 0.5 mg-3 mg(2.5 mg base)/3 mL solution for nebulization 3 ml INHALATION Q6H PRN (Reason: Shortness Of Breath Or Wheezing) allopurinol 300 mg tablet 150 mg PO DAILY Patient Comments: around 11 am or so. furosemide 20 mg tablet 20 mg PO BID azelastine 137 mcg (0.1 %) aerosol,spray 1 spray INTRANASAL BID albuterol sulfate 90 mcg/actuation HFA aerosol inhaler 2 puff INHALATION Q4H PRN (Reason: Shortness Of Breath Or Wheezing) ezetimibe 10 mg tablet 10 mg PO QAM potassium chloride [Klor-Con M10] 10 mEq tablet,ER particles/crystals 10 meq PO 3XWK Patient Comments: mon, wed and tue morning hours. Rx Instructions: on tue, tue and tuesday metoprolol tartrate 25 mg tablet 25 mg PO BID docusate sodium 100 mg Capsule 100 mg PO BID PRN (Reason: Constipation) cholecalciferol (vitamin D3) [Vitamin D3] 50 mcg (2,000 unit) Tablet 50 mcg PO DAILY Patient Comments: around 11 am . Held ferrous sulfate 325 mg (65 mg iron) tablet 325 mg PO QAM Hold Instructions: Resume on 05/02/23. Hold till you see your primary care doctor and repeat CBC. Eliquis 2.5 mg Tablet 2.5 mg PO AMHS Hold Instructions: Resume on 05/02/23. Hold till you see your primary care doctor and repeat CBC Discontinued prednisone 20 mg tablet 20 mg PO DAILY Rx Instructions: 2 tabs daily for 5 days. start 04/20/23 and end 04/25/23 amoxicillin-pot clavulanate 500-125 mg tablet 1 tab PO AMHS Rx Instructions: start 04/20/23 and end 04/27/23 Discharge Orders: Discharge Order (Routine); Ordered 04/25/23 Ordered By: Ta Nichols Admission Data Admit Date/Time: 04/22/23 02:17 Attending Provider: Ta Nichols Admit Provider: Corby Wright Primary Care Provider: Jairo Kingston Other Providers: Dorinda Hanson; Landon Álvarez; Elo Delacruz; Nyla Vinson; Kassy Cabrera; Efrem Gomez; Toi Yee; Redd Sen; Jayna Montana; Radha Rees; Ethan Gaffney; Sherri English; Anuradha Joe; Judy Nelson; Teresita Sosa; Lacie England; Nikhil Swift; Rich Marmolejo; Mine Hernandez; Alo Bailey Jr Other Interventions: Discharge Summary Assessment (RN) Last Done: 04/25/23 10:41
== END 2023-04-25 12:17 | disposition home or self-care (01) | DRG 377 ==
LOC: ED 19:07 → EDINP 04-22 02:17 → 2S 04-22 11:17

== ENCOUNTER 2023-09-02 18:29 | Inpatient (IN) ==
--- NOTE | 2023-09-02 18:47 | Emergency Department Note ---
Impression & Plan Pulmonary edema, SOB (shortness of breath) ED Provider Note NAME: ZULMA MERA AGE: 73 SEX: M : 1950 ARRIVES VIA: Ambulance INFORMANT: Patient, ED PROVIDER(S): Aaron Knight DO CHIEF COMPLAINT: Shortness of breath HPI: The patient is a 73-year-old male who presented to the emergency department for an evaluation of shortness of breath. He denies having any hemoptysis. He denies having any lower extremity swelling. He states he cannot lie flat. He states this started a few days ago. The patient was given a DuoNeb as well as Solu-Medrol prior to arrival. The patient denies having any fever. He has not been seen by his family doctor today. He called the ambulance because he was getting worse this evening ROS: See above HPI for pertinent positives & negatives. A total of 10 systems reviewed and were otherwise negative. PAST MEDICAL HISTORY: See Below PAST SURGICAL HISTORY: See Below FAMILY HISTORY: See Below SOCIAL HISTORY: See Below HOME MEDICATIONS: See Below ALLERGIES: See Below VITALS: See Below PHYSICAL EXAMINATION: GENERAL: Patient is awake alert in no acute distress patient is resting comfortably and showing no signs of anxiety EYES: The conjunctivae are clear. The pupils are round and reactive. EARS, NOSE, MOUTH AND THROAT: The nose is without any evidence of any deformity. NECK: The neck is nontender and supple. RESPIRATORY: Diminished breath sounds are noted throughout left greater than right. There is scattered rales both bases. CARDIOVASCULAR: Regular rate and rhythm was noted to auscultation. Systolic murmur suggested. GASTROINTESTINAL: The abdomen is soft. Abdomen is nontender. MUSCULOSKELETAL/EXTREMITIES: There is no evidence of gross deformity full range of motion is noted in the hips and shoulders. SKIN: There is no obvious evidence of any rash. There are no petechiae, pallor or cyanosis noted. NEUROLOGIC: Patient is awake alert and oriented x3 MEDICAL DECISION MAKING: The patient is a 73-year-old male who presented to the emergency department for an evaluation of difficulty breathing. The patient does have a history of difficulty breathing in the past. He also has a cardiac history. He does have a heart murmur which was noted on my evaluation. The patient's history and physical exam appear to be consistent with volume overload. He was treated with IV Lasix in the emergency department. He was found to have an elevation in his troponin. This could indicate a cardiac source for his difficulty breathing tonight. I discussed the patient's laboratory and radiographic studies with him. I discussed his condition with the on-call [facility] hospitalist. They have agreed to evaluate the patient in the emergency department for further management and disposition. Triage Nursing notes reviewed. Prior medical records reviewed Vital Signs: reviewed and remarkable for elevated blood pressure. Differential diagnosis: Reactive airway disease, pneumonia, pneumothorax, COPD, CHF, infections, cardiac ischemia, pulmonary embolism, musculoskeletal, gastrointestinal, as well as other pathologies. ER treatment provided: See below Diagnostics interpreted by me: ECG: EKG was obtained in the emergency department. My interpretation is normal sinus rhythm at 89 bpm. There is no ectopy. Nonspecific ST segment abnormalities are noted in the inferior leads. This was compared to a tracing from July 21, 2023. No changes were noted. Cardiac Monitoring: An order was placed for continuous cardiac monitoring. The monitor shows a rate of 80 bpm with sinus rhythm. Laboratory studies: As stated above and show below. Imaging studies: See below. Radiographic imaging was reviewed by myself Consultation(s): I discussed this case with Dr. Friedman [facility] Past Med/Surg History Problem List (Updated 09/03/23 @ 01:31 by Aaron Knight DO) Pulmonary edema (Acute) COPD (chronic obstructive pulmonary disease) exacerbation Dec 2022 - Hospitalized [facility] Dec 242022. Med change and effective since. Denies current issues. O2 2 L HS & PRN throughout day. 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 (Acute) SOB (shortness of breath) (Acute) Anemia (Acute) GI bleed (Acute) CVA (cerebral vascular accident) (Acute) Gout (Chronic) History of GI bleed Wide-complex tachycardia Sinus pause PFO (patent foramen ovale) History of tonsillectomy Labile blood pressure Acute respiratory failure with hypoxia Bronchitis GERD (gastroesophageal reflux disease) Acute on chronic kidney failure COPD exacerbation (Acute) Chronic respiratory failure with hypoxia, on home O2 therapy (Acute) Abnormal CXR Stage 3b chronic kidney disease (CKD) Anemia due to chronic kidney disease History of cholelithiasis (Acute) CKD (chronic kidney disease) (Acute) Chronic anemia (Acute) Acute kidney injury superimposed on chronic kidney disease Melena Acute GI bleeding (Acute) COPD with exacerbation (Acute) Acute upper GI bleed (Acute) Symptomatic anemia (Acute) Anemia requiring transfusions (Acute) Recurrent gastrointestinal hemorrhage Shaggy aorta syndrome SOB (shortness of breath) (Acute) Bronchitis (Acute) COPD exacerbation (Acute) Wheezing (Acute) Anemia (Acute) CRF (chronic renal failure) (Acute) Elevated troponin (Acute) Acute and chronic respiratory failure MGUS (monoclonal gammopathy of unknown significance) Goals of care, counseling/discussion Medical History Gastroparesis pt is not sure about this dx. History of colon polyps x1 a few yrs ago/follow up in 5 yrs. 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 Ascending thoracic aorta at the level of the right pulmonary artery 4.2 cm unchanged. 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 Descending thoracic aorta at the level of the left atrium again up to 4.[address] scan Dec 2022 - pt told everything was stable. 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 follows with Dr. Jefferson Gastric ulcer Hearing deficit BL NAILS Hx SBO History of GI bleed Stroke X 2 (LAST EVENT 05/2020) CONT. TO HAVE SLIGHT BALANCE ISSUES Sleep apnea CPAP Hx of gout PSVT (paroxysmal supraventricular tachycardia) Aortic stenosis Thoracic aortic atherosclerosis, densely calcified coronary arteries, severely calcified aortic valve, aneurysmal outpouching of the aortic arch. CKD (chronic kidney disease), stage III follows with [facility] nephrology Hyperlipidemia Hypertension Surgical History History of esophagogastroduodenoscopy (EGD) most recent a few months ago for a bleed, this is a follow up procedure. History of tooth extraction History of tonsillectomy and adenoidectomy pt not sure about adenoids. History of lumbar surgery 1999 S/P AAA repair 01/13/2009 - Dr Suazo ([facility] [facility]) Hx of colonoscopy Hx of hernia repair lysis of adhesions, incisional hernia repair laparoscopically 01/28/2010 at [facility] - Dr Desouza Family History Other AAA (abdominal aortic aneurysm) Hypertension No family history of adverse response to anesthesia Social History Smoking Status: Former smoker Tobacco Type: Cigarettes Age Started Using Tobacco: 18; Cigarettes Per Day: Former cigarette. 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 Required: No Beliefs That Will Affect Care: None marital status: Current Living Situation: Spouse and Family Current Living Situation Comment: and daughter current occupational status: employed Feels Safe at Home: Yes Assistive Devices: Cane, Glasses, Hearing Aid - Bilateral, Oxygen - Continuous and Walker Allergies Allergies Allergy/AdvReac Type Severity Reaction Status Date / Time RUBENS Inhibitors AdvReac Unknown DROPS Verified 05/05/23 13:26 BLOOD PRESSURE lisinopril AdvReac Unknown DROPS Verified 05/05/23 13:26 BLOOD PRESSURE Home Meds Home Medications Medication Instructions Recorded Confirmed albuterol sulfate 90 mcg/actuation 2 puff inhalation Q4H PRN 01/30/23 09/02/23 aerosol inhaler Shortness Of Breath Or Wheezing allopurinol 300 mg tablet 150 mg PO DAILY 01/30/23 09/02/23 atorvastatin 80 mg tablet 80 mg PO QAM 01/30/23 09/02/23 azelastine 137 mcg (0.1 %) nasal 1 spray intranasal BID PRN Nasal 01/30/23 09/02/23 spray aerosol Congestion cholecalciferol (vitamin D3) 50 50 mcg PO DAILY 01/30/23 09/02/23 mcg (2,000 unit) tablet (Vitamin D3) docusate sodium 100 mg capsule 100 mg PO BID PRN Constipation 01/30/23 09/02/23 ezetimibe 10 mg tablet 10 mg PO QAM 01/30/23 09/02/23 furosemide 20 mg tablet 20 mg PO BID 01/30/23 09/02/23 ipratropium 0.5 mg-albuterol 3 mg 3 ml inhalation Q6H PRN Shortness 01/30/23 09/02/23 (2.5 mg base)/3 mL nebulization Of Breath Or Wheezing soln metoprolol tartrate 25 mg tablet 25 mg PO BID 01/30/23 09/02/23 potassium chloride 10 mEq 10 meq PO 3XWK 01/30/23 09/02/23 tablet,extended release(part/cryst) (Klor-Con M) fluticasone fur. 100 mcg-umeclid 1 inh inhalation QAM 02/15/23 09/02/23 62.5 mcg-vilant 25 mcg inhalat.powder (Trelegy Ellipta) ascorbic acid (vitamin C) 250 mg 125 mg PO QDL 04/21/23 09/02/23 tablet fluticasone propionate 50 2 spray intranasal DAILY 04/21/23 09/02/23 mcg/actuation nasal spray,suspension apixaban 2.5 mg tablet (Eliquis) 2.5 mg PO BID 09/02/23 09/02/23 Previous Rx's Medication Instructions Recorded pantoprazole 40 mg tablet,delayed 40 mg PO AMHS #60 tabs 04/25/23 release Results & Data (ED) Vital Signs Vital Signs - 24 hr 09/02/23 18:33 09/02/23 18:33 09/02/23 18:33 Temperature Temperature Source Pulse Rate 89 Pulse Rate [Apical] Respiratory Rate 24 Respiratory Effort / Characteristics Labored Respiratory Depth Shallow Blood Pressure 166/97 H Blood Pressure [Right Arm] Blood Pressure Mean 120 Blood Pressure Mean [Right Arm] Pulse Oximetry 96 96 Oxygen Delivery Method Nasal Cannula Nasal Cannula Nasal Cannula Oxygen Flow Rate 3 3 3 Sepsis Recent Fever Within 48 Hours No Sepsis New/Unexplained Change in Mental Status No Sepsis Action Taken by Nursing No Action Required 09/02/23 18:33 09/02/23 18:47 09/02/23 19:24 Temperature 36.9 C Temperature Source Oral Pulse Rate 89 Pulse Rate [Apical] 90 Respiratory Rate 24 Respiratory Effort / Characteristics Labored Respiratory Depth Shallow Blood Pressure Blood Pressure [Right Arm] 166/97 H Blood Pressure Mean Blood Pressure Mean [Right Arm] 120 Pulse Oximetry 96 96 Oxygen Delivery Method Nasal Cannula Nasal Cannula Oxygen Flow Rate 3 3 Sepsis Recent Fever Within 48 Hours Sepsis New/Unexplained Change in Mental Status Sepsis Action Taken by Nursing 09/02/23 19:25 09/02/23 19:30 09/02/23 20:00 Temperature Temperature Source Pulse Rate 89 91 H 92 H Pulse Rate [Apical] Respiratory Rate 24 22 15 Respiratory Effort / Characteristics Respiratory Depth Blood Pressure 167/119 H Blood Pressure [Right Arm] Blood Pressure Mean 135 Blood Pressure Mean [Right Arm] Pulse Oximetry 95 94 95 Oxygen Delivery Method Nasal Cannula Nasal Cannula Nasal Cannula Oxygen Flow Rate 3 3 3 Sepsis Recent Fever Within 48 Hours Sepsis New/Unexplained Change in Mental Status Sepsis Action Taken by Nursing 09/02/23 20:11 09/02/23 20:30 09/02/23 21:04 Temperature Temperature Source Pulse Rate 91 H 90 91 H Pulse Rate [Apical] Respiratory Rate 23 16 15 Respiratory Effort / Characteristics Respiratory Depth Blood Pressure 186/110 H 157/112 H Blood Pressure [Right Arm] Blood Pressure Mean 135 127 Blood Pressure Mean [Right Arm] Pulse Oximetry 94 93 96 Oxygen Delivery Method Nasal Cannula Nasal Cannula Nasal Cannula Oxygen Flow Rate 3 3 3 Sepsis Recent Fever Within 48 Hours Sepsis New/Unexplained Change in Mental Status Sepsis Action Taken by Nursing 09/02/23 22:00 09/02/23 22:10 Temperature Temperature Source Pulse Rate 81 Pulse Rate [Apical] 82 Respiratory Rate 21 18 Respiratory Effort / Characteristics Non-Labored Spontaneous Respiratory Depth Blood Pressure 149/92 H Blood Pressure [Right Arm] Blood Pressure Mean 111 Blood Pressure Mean [Right Arm] Pulse Oximetry 94 97 Oxygen Delivery Method Nasal Cannula Nasal Cannula Oxygen Flow Rate 3 3 Sepsis Recent Fever Within 48 Hours Sepsis New/Unexplained Change in Mental Status Sepsis Action Taken by Snf Medications Current Medication List: was personally reviewed by ia Laboratory Data Attestation: I reviewed the patient's lab results. 09/02/23 18:49 09/02/23 18:49 Lab Results 09/02/23 09/02/23 09/02/23 Range/Units 18:49 19:46 20:10 WBC 8.63 (4.8-10.8) K/ul RBC 3.51 L (4.70-6.10) M/uL Hgb 11.9 L (14.0-18.0) g/dl Hct 36.2 L (42.0-52.0) % MCV 103.1 H (80.0-100.0) fL MCH 33.9 (25.0-34.0) pg MCHC 32.9 (32.0-36.0) g/dL RDW Std Deviation 58.3 H (36.4-46.3) fL RDW Coeff of Chaka 15.3 H (11.5-14.5) % Plt Count (130-400) K/uL MPV Not Reportable Immature Gran % (Auto) 0.6 % Neut % (Auto) 62.7 % Lymph % (Auto) 18.0 % [place] % (Auto) 9.6 % Eos % (Auto) 8.1 % Baso % (Auto) 1.0 % Neut # (Auto) 5.41 (1.40-6.50) K/uL Lymph # (Auto) 1.55 (1.20-3.40) K/uL [place] # (Auto) 0.83 H (0.11-0.59) K/uL Eos # (Auto) 0.70 H (0.00-0.50) K/uL Baso # (Auto) 0.09 (0.00-0.20) K/uL Immature Gran # (Auto) 0.05 (0.01-0.20) K/uL Plt Count ,Citrate 177 (130-400) K/uL PT 11.8 (9.0-12.0) Seconds INR 1.1 (0.9-1.1) APTT 29 (21-31) Seconds PTT Ratio 1.1 VBG pH 7.41 (7.36-7.41) VBG pCO2 40 (38-50) mmHg VBG pO2 48 mmHg VBG HCO3 25 mmol/L VBG O2 Saturation 81.3 % VBG Base Excess 0.7 mEq/L Sodium 136 (136-145) mmol/L Potassium 3.8 (3.5-5.1) mmol/L Chloride 101 (98-107) mmol/L Carbon Dioxide 24 (21-32) mmol/L Anion Gap 11 (3-11) BUN 31 H (6-23) mg/dl Creatinine 2.33 H (0.6-1.4) mg/dl Est Cr Clr Drug Dosing 30.4 ml/min Est GFR ( Amer) 30.6 ml/min Est GFR (Non-Af Amer) 26.4 ml/min BUN/Creatinine Ratio 13.3 (10-20) Glucose 104 H (70-99(Fasting)) mg/dl Calcium 9.2 (8.6-10.3) mg/dl Magnesium 1.9 (1.7-2.4) mg/dl Total Bilirubin 0.6 (0.2-1.0) mg/dl AST 22 (13-39) U/L ALT 20 (7-52) U/L Alkaline Phosphatase 124 H (34-104) U/L Troponin I High Sens 47.6 H (0-20) pg/ml B-Natriuretic Peptide 201 H (0-100) pg/ml Total Protein 7.5 (6.0-8.3) gm/dl Albumin 4.0 (3.4-5.0) gm/dl Globulin 3.5 (2.5-4.0) gm/dl Albumin/Globulin Ratio 1.1 (0.9-2) Urine Color Urine Appearance (Clear) Urine pH (4.5-7.5) Ur Specific [place] (1.000-1.030) Urine Protein (Negative) Urine Glucose (UA) (Negative) Urine Ketones (Negative) Urine Blood (Negative) Urine Nitrite (Negative) Urine Bilirubin (Negative) Urine Urobilinogen (Negative) Ur Leukocyte Esterase (Negative) Urine WBC (Auto) (0-5) /hpf Urine RBC (Auto) (0-2) /hpf U Hyaline Cast (Auto) (0-2) /lpf U Epithel Cells (Auto) (0-2) /hpf Urine Bacteria (Auto) (None Seen) Adenovirus (PCR) Not Detected (NotDetected) B. pertussis DNA (PCR) Not Detected (NotDetected) B.parapertussis DNA PCR Not Detected (NotDetected) C. pneumoniae DNA (PCR) Not Detected (NotDetected) Coronavirus OC43 (PCR) Not Detected (NotDetected) Coronavirus HKU1 (PCR) Not Detected (NotDetected) Coronavirus 229E (PCR) Not Detected (NotDetected) SARS-CoV-2 (PCR) Not Detected (NotDetected) Coronavirus NL63 (PCR) Not Detected (NotDetected) Human Metapneumovir PCR Not Detected (NotDetected) Influenza Type A (PCR) Not Detected (NotDetected) Influenza Type B (PCR) Not Detected (NotDetected) M. pneumoniae (PCR) Not Detected (NotDetected) Parainfluenza 1 (PCR) Not Detected (NotDetected) Parainfluenza 2 (PCR) Not Detected (NotDetected) Parainfluenza 3 (PCR) Not Detected (NotDetected) Parainfluenza 4 (PCR) Not Detected (NotDetected) RSV (PCR) Not Detected (NotDetected) Entero/Rhino (PCR) Not Detected (NotDetected) 09/02/23 09/02/23 Range/Units 20:31 21:05 WBC (4.8-10.8) K/ul RBC (4.70-6.10) M/uL Hgb (14.0-18.0) g/dl Hct (42.0-52.0) % MCV (80.0-100.0) fL MCH (25.0-34.0) pg MCHC (32.0-36.0) g/dL RDW Std Deviation (36.4-46.3) fL RDW Coeff of Chaka (11.5-14.5) % Plt Count (130-400) K/uL MPV Immature Gran % (Auto) % Neut % (Auto) % Lymph % (Auto) % [place] % (Auto) % Eos % (Auto) % Baso % (Auto) % Neut # (Auto) (1.40-6.50) K/uL Lymph # (Auto) (1.20-3.40) K/uL [place] # (Auto) (0.11-0.59) K/uL Eos # (Auto) (0.00-0.50) K/uL Baso # (Auto) (0.00-0.20) K/uL Immature Gran # (Auto) (0.01-0.20) K/uL Plt Count ,Citrate (130-400) K/uL PT (9.0-12.0) Seconds INR (0.9-1.1) APTT (21-31) Seconds PTT Ratio VBG pH (7.36-7.41) VBG pCO2 (38-50) mmHg VBG pO2 mmHg VBG HCO3 mmol/L VBG O2 Saturation % VBG Base Excess mEq/L Sodium (136-145) mmol/L Potassium (3.5-5.1) mmol/L Chloride (98-107) mmol/L Carbon Dioxide (21-32) mmol/L Anion Gap (3-11) BUN (6-23) mg/dl Creatinine (0.6-1.4) mg/dl Est Cr Clr Drug Dosing ml/min Est GFR ( Amer) ml/min Est GFR (Non-Af Amer) ml/min BUN/Creatinine Ratio (10-20) Glucose (70-99(Fasting)) mg/dl Calcium (8.6-10.3) mg/dl Magnesium (1.7-2.4) mg/dl Total Bilirubin (0.2-1.0) mg/dl AST (13-39) U/L ALT (7-52) U/L Alkaline Phosphatase (34-104) U/L Troponin I High Sens 40.4 H (0-20) pg/ml B-Natriuretic Peptide (0-100) pg/ml Total Protein (6.0-8.3) gm/dl Albumin (3.4-5.0) gm/dl Globulin (2.5-4.0) gm/dl Albumin/Globulin Ratio (0.9-2) Urine Color Yellow Urine Appearance Clear (Clear) Urine pH 6.5 (4.5-7.5) Ur Specific [place] 1.009 (1.000-1.030) Urine Protein 2+ H (Negative) Urine Glucose (UA) Negative (Negative) Urine Ketones Negative (Negative) Urine Blood Negative (Negative) Urine Nitrite Negative (Negative) Urine Bilirubin Negative (Negative) Urine Urobilinogen Negative (Negative) Ur Leukocyte Esterase Negative (Negative) Urine WBC (Auto) 0-5 (0-5) /hpf Urine RBC (Auto) 0-2 (0-2) /hpf U Hyaline Cast (Auto) 0-2 (0-2) /lpf U Epithel Cells (Auto) 0-2 (0-2) /hpf Urine Bacteria (Auto) None Seen (None Seen) Adenovirus (PCR) (NotDetected) B. pertussis DNA (PCR) (NotDetected) B.parapertussis DNA PCR (NotDetected) C. pneumoniae DNA (PCR) (NotDetected) Coronavirus OC43 (PCR) (NotDetected) Coronavirus HKU1 (PCR) (NotDetected) Coronavirus 229E (PCR) (NotDetected) SARS-CoV-2 (PCR) (NotDetected) Coronavirus NL63 (PCR) (NotDetected) Human Metapneumovir PCR (NotDetected) Influenza Type A (PCR) (NotDetected) Influenza Type B (PCR) (NotDetected) M. pneumoniae (PCR) (NotDetected) Parainfluenza 1 (PCR) (NotDetected) Parainfluenza 2 (PCR) (NotDetected) Parainfluenza 3 (PCR) (NotDetected) Parainfluenza 4 (PCR) (NotDetected) RSV (PCR) (NotDetected) Entero/Rhino (PCR) (NotDetected) Administered Medications Discontinued Medications Furosemide (Furosemide 40 Mg/4 Ml Vial) 40 mg IV ONE ONE Stop: 09/02/23 20:23 Last Admin: 09/02/23 20:40 Dose: 40 mg Documented By: CORINA Magnesium Sulfate/Dextrose (Magnesium Sulfate / D5w) 1 gm in 100 mls @ 50 mls/hr IV ONE ONE Stop: 09/02/23 23:12 Last Admin: 09/02/23 22:20 Dose: 50 mls/hr Documented By: CORINA Doxycycline Hyclate 100 mg/ (Dextrose) 100 mls @ 50 mls/hr IV NOW STA Stop: 09/03/23 00:13 Last Admin: 09/02/23 23:19 Dose: 50 mls/hr Documented By: CORINA Methylprednisolone 20 mg/ (Syringe) 0.32 mls @ 1.5 mls/min IV NOW ONE Stop: 09/02/23 22:46 Last Admin: 09/02/23 23:19 Dose: 1.5 mls/min Documented By: CORINA Ipratropium [place] (Ipratropium [place] Neb Soln 0.02% 0.5mg/2.5ml Vial) 0.5 mg INH NOW STA Stop: 09/02/23 21:14 Last Admin: 09/02/23 22:09 Dose: 0.5 mg Documented By: KELLIE Levalbuterol HCl (Levalbuterol 1.25 Mg/3 Ml Neb) 1.25 mg NEB NOW STA Stop: 09/02/23 21:14 Last Admin: 09/02/23 22:09 Dose: 1.25 mg Documented By: KELLIE Potassium Chloride (Potassium Chloride Crtab 20 Meq Tabcr) 20 meq PO NOW STA Stop: 09/02/23 22:23 Last Admin: 09/02/23 23:19 Dose: 20 meq Documented By: CORINA Imaging Data Attestation: I personally reviewed and interpreted this imaging study as follows: My Impression: CT of the brain was obtained in the emergency department. My interpretation is no intercranial hemorrhage or mass effect, final report below. 1 view chest x-ray was obtained in the emergency department. My interpretation is cardiomegaly with volume overload, final report pending. Radiologist's Impression: Head CT 09/02/23 18:41 Exam(s): CT HEAD Without Contrast EXAM: CT Head Without Intravenous Contrast CLINICAL HISTORY: Reason for exam: ataxia. TECHNIQUE: Axial computed tomography images of the head/brain without intravenous contrast. CTDI is 62.75 mGy and DLP is 1098.96 mGy-cm. Automated exposure control was utilized for the study. A dose lowering technique was utilized adhering to the principles of ALARA. COMPARISON: 07/21/23 FINDINGS: Brain: Chronic cortical infarcts right frontal lobe, right parietal lobe, and left occipital lobe. Blair-white matter differentiation otherwise maintained. No hemorrhage, mass-effect, or parenchymal edema. Multiple chronic lacunar infarcts bilateral basal ganglia. Chronic right cerebellar infarct. Ventricles: Unremarkable. No hydrocephalus. Bones/joints: Unremarkable. No acute fracture. Soft tissues: Unremarkable. Vasculature: Intracranial atherosclerosis. Sinuses: Unremarkable as visualized. Mastoid air cells: Unremarkable as visualized. No mastoid effusion. Orbits: Bilateral lens replacements. IMPRESSION: No acute intracranial process. Electronically signed by: Socorro Amezcua M.D. 09/02/23 19:44 PM Discharge Plan Visit Data Chief Complaint: Shortness of Breath/Dyspnea Stated Complaint: SHORT OF BREATH DIZZINESS ED Provider: Aaron Knight Discharge Problem: Pulmonary edema, SOB (shortness of breath) Patient Disposition: Being Evaluated by Hospitalist Discharge Problem: Pulmonary edema Qualifiers: Chronicity: acute Qualified Code(s): J81.0 - Acute pulmonary edema
[2023-09-02 19:33] LABS: Albumin Globulin Ratio 1.1 (0.9-2); BUN Creatinine Ratio 13.3 (10-20); Bilirubin,Total 0.6 mg/dl (0.2-1.0); Calcium 9.2 mg/dl (8.6-10.3); Creatinine Clr Calc Pharmacy 30.4 ml/min; Est GFR (African American) 30.6 ml/min; Est GFR (Non-African American) 26.4 ml/min; Globulin 3.5 gm/dl (2.5-4.0); Magnesium 1.9 mg/dl (1.7-2.4); Potassium 3.8 mmol/L (3.5-5.1); Total Protein 7.5 gm/dl (6.0-8.3)
[2023-09-02 19:40] LABS: Troponin I High Sensitivity 47.6 pg/ml (0-20)
--- NOTE | 2023-09-02 19:44 | CT Scan Report ---
Exam(s): CT HEAD Without Contrast EXAM: CT Head Without Intravenous Contrast CLINICAL HISTORY: Reason for exam: ataxia. TECHNIQUE: Axial computed tomography images of the head/brain without intravenous contrast. CTDI is 62.75 mGy and DLP is 1098.96 mGy-cm. Automated exposure control was utilized for the study. A dose lowering technique was utilized adhering to the principles of ALARA. COMPARISON: 07/21/23 FINDINGS: Brain: Chronic cortical infarcts right frontal lobe, right parietal lobe, and left occipital lobe. Blair-white matter differentiation otherwise maintained. No hemorrhage, mass-effect, or parenchymal edema. Multiple chronic lacunar infarcts bilateral basal ganglia. Chronic right cerebellar infarct. Ventricles: Unremarkable. No hydrocephalus. Bones/joints: Unremarkable. No acute fracture. Soft tissues: Unremarkable. Vasculature: Intracranial atherosclerosis. Sinuses: Unremarkable as visualized. Mastoid air cells: Unremarkable as visualized. No mastoid effusion. Orbits: Bilateral lens replacements. IMPRESSION: No acute intracranial process. Electronically signed by: Socorro Amezcua M.D. 09/02/23 19:44 PM
[2023-09-02 19:49] LABS: Basophils # (auto) 0.09 K/uL (0.00-0.20); Eosinophils % (auto) 8.1 %; Hematocrit (blood only) 36.2 % (42.0-52.0); Hemoglobin 11.9 g/dl (14.0-18.0); Immature Granulocytes # (auto) 0.05 K/uL (0.01-0.20); Immature Granulocytes % (auto) 0.6 %; Lymphocytes # (auto) 1.55 K/uL (1.20-3.40); Mean Corpuscular Hemoglobin 33.9 pg (25.0-34.0); Mean Corpuscular Hgb Conc 32.9 g/dL (32.0-36.0); Mean Corpuscular Volume 103.1 fL (80.0-100.0); Monocytes # (auto) 0.83 K/uL (0.11-0.59); Monocytes % (auto) 9.6 %; Neutrophils # (auto) 5.41 K/uL (1.40-6.50); Neutrophils % (auto) 62.7 %; RDW Coefficient of Variation 15.3 % (11.5-14.5); RDW Standard Deviation 58.3 fL (36.4-46.3); Red Blood Count 3.51 M/uL (4.70-6.10); White Blood Count 8.63 K/ul (4.8-10.8)
[2023-09-02 20:12] LABS: INR 1.1 (0.9-1.1); Partial Thromboplastin Ratio 1.1; Partial Thromboplastin Time 29 Seconds (21-31); Prothrombin Time 11.8 Seconds (9.0-12.0)
[2023-09-02 20:20] LABS: Base Excess VBG 0.7 mEq/L; HCO3 VBG 25 mmol/L; Oxygen Saturation VBG 81.3 %; PCO2 VBG 40 mmHg (38-50); PO2 VBG 48 mmHg; pH VBG 7.41 (7.36-7.41)
[2023-09-02] MEDS: FUROSEMIDE 40 MG/4 ML VIAL IV ONE (20:40)
--- NOTE | 2023-09-02 21:08 | History & Physical Report ---
Date of Service September 02, 2023 Assessment & Plan (1) COPD (chronic obstructive pulmonary disease): (2) Current use of intermediate anticoagulation: (3) SOB (shortness of breath): (4) History of GI bleed: (5) Chronic respiratory failure with hypoxia, on home O2 therapy: (6) CKD (chronic kidney disease): (7) Shaggy aorta syndrome: (8) MGUS (monoclonal gammopathy of unknown significance): Plan Mikhail Fung is a 72y/o M with PMHx of hyperlipidemia, hyperparathyroidism, idiopathic chronic gout, COPD, GINNY on CPAP, HTN, left renal artery stenosis, abdominal aortic aneurysm, severe aortic stenosis, chronic diastolic CHF, shaggy aorta syndrome, chronic kidney stage IV, iron deficiency anemia due to chronic blood loss, Waldenstrm's macroglobulinemia, history of AAA repair, history of SVT, history of biliary stent insertion, hx of GI bleed and other medical problems listed below presenting with SOB x 2 days. Care coordinated with Dr. Thompson. Please refer to his addendum for the plan. I spent a total of 60 minutes coordinating, documenting, and providing care for this patient excluding time spent in the performance of separately billed services. This included personally reviewing all current laboratories and imaging studies, medical reconciliation, outpatient chart review and discussion with specialists. History of Present Illness Chief Complaint: Shortness of Breath/Dyspnea Primary Care Provider: Jairo Kingston MD Mikhail Fung is a 72y/o M with PMHx of hyperlipidemia, hyperparathyroidism, idiopathic chronic gout, COPD, GINNY on CPAP, HTN, left renal artery stenosis, abdominal aortic aneurysm, severe aortic stenosis, chronic diastolic CHF, shaggy aorta syndrome, chronic kidney stage IV, iron deficiency anemia due to chronic blood loss, Waldenstrm's macroglobulinemia, history of AAA repair, history of SVT, history of biliary stent insertion, hx of GI bleed and other medical problems listed below presenting with SOB x 2 days. History obtained from patient, and associated ED/PCP specialist records. Patient seen at beside, and is accompanied in the room by his daughter. Daughter reports that he has been "feeling ill" for the past week. Patient reports sinus congestion, rhinorrhea and an intermittent productive cough for the past week. He notes that the sputum he produces when coughing is clear/light yellow in appearance. He states that the SOB started yesterday. He notes increased SOB w/ exertion and SOB at rest as well. He reports that he has been sleeping in a recliner with his head inclined, which is normal for him at baseline. He has not been able to sleep lying flat for "a really long time," as he experiences some difficulty breathing when trying to do so. He denies any LE swelling, chest pain, recent sick contacts, bowel habits changes or urinary changes. He further denies any recent vision changes associated with the episodes of dizziness. Patient does use a walker at baseline, and lives with his at home. His daughter reports that she frequently checks on him at home. He denies any recent fevers, body aches or chills. He does endorse some intermitt ent left UE numbness that resolves rather quickly w/ no intervention. He also reports that his feet feel like they are "asleep." Patient has had no recent falls. Patient reports that this doesn't feel like a typical COPD flare. Patient is compliant with Lasix therapy at home. Most recent echo performed 01/27/23. Displayed the following: LV wall thickness moderately increased (concentric), LV EF 55-59%, severe aortic valve stenosis and mild aortic valve regurgitation. Head CT performed in the ED displayed no acute intracranial findings. Allergies Allergy/AdvReac Type Severity Reaction Status Date / Time RUBENS Inhibitors AdvReac Unknown DROPS Verified 05/05/23 13:26 BLOOD PRESSURE lisinopril AdvReac Unknown DROPS Verified 05/05/23 13:26 BLOOD PRESSURE Home Medications Medication Instructions Recorded Confirmed Type albuterol sulfate 90 mcg/actuation 2 puff inhalation Q4H PRN 01/30/23 09/02/23 History aerosol inhaler Shortness Of Breath Or Wheezing allopurinol 300 mg tablet 150 mg PO DAILY 01/30/23 09/02/23 History atorvastatin 80 mg tablet 80 mg PO QAM 01/30/23 09/02/23 History azelastine 137 mcg (0.1 %) nasal 1 spray intranasal BID PRN Nasal 01/30/23 09/02/23 History spray aerosol Congestion cholecalciferol (vitamin D3) 50 50 mcg PO DAILY 01/30/23 09/02/23 History mcg (2,000 unit) tablet (Vitamin D3) docusate sodium 100 mg capsule 100 mg PO BID PRN Constipation 01/30/23 09/02/23 History ezetimibe 10 mg tablet 10 mg PO QAM 01/30/23 09/02/23 History furosemide 20 mg tablet 20 mg PO BID 01/30/23 09/02/23 History ipratropium 0.5 mg-albuterol 3 mg 3 ml inhalation Q6H PRN Shortness 01/30/23 09/02/23 History (2.5 mg base)/3 mL nebulization Of Breath Or Wheezing soln metoprolol tartrate 25 mg tablet 25 mg PO BID 01/30/23 09/02/23 History potassium chloride 10 mEq 10 meq PO 3XWK 01/30/23 09/02/23 History tablet,extended release(part/cryst) (Klor-Con M) fluticasone fur. 100 mcg-umeclid 1 inh inhalation QAM 02/15/23 09/02/23 History 62.5 mcg-vilant 25 mcg inhalat.powder (Trelegy Ellipta) ascorbic acid (vitamin C) 250 mg 125 mg PO QDL 04/21/23 09/02/23 History tablet fluticasone propionate 50 2 spray intranasal DAILY 04/21/23 09/02/23 History mcg/actuation nasal spray,suspension pantoprazole 40 mg tablet,delayed 40 mg PO AMHS #60 tabs 04/25/23 09/02/23 Rx release apixaban 2.5 mg tablet (Eliquis) 2.5 mg PO BID 09/02/23 09/02/23 History Past Med/Surg History Problem List (Updated 09/03/23 @ 01:31 by Aaron Knight DO) Pulmonary edema (Acute) COPD (chronic obstructive pulmonary disease) exacerbation Dec 2022 - Hospitalized [facility] Dec 24-2022. Med change and effective since. Denies current issues. O2 2 L HS & PRN throughout day. Current use of intermediate anticoagulation (Acute) SOB (shortness of breath) (Acute) Anemia (Acute) GI bleed (Acute) CVA (cerebral vascular accident) (Acute) Gout (Chronic) History of GI bleed Wide-complex tachycardia Sinus pause PFO (patent foramen ovale) History of tonsillectomy Labile blood pressure Acute respiratory failure with hypoxia Bronchitis GERD (gastroesophageal reflux disease) Acute on chronic kidney failure COPD exacerbation (Acute) Chronic respiratory failure with hypoxia, on home O2 therapy (Acute) Abnormal CXR Stage 3b chronic kidney disease (CKD) Anemia due to chronic kidney disease History of cholelithiasis (Acute) CKD (chronic kidney disease) (Acute) Chronic anemia (Acute) Acute kidney injury superimposed on chronic kidney disease Melena Acute GI bleeding (Acute) COPD with exacerbation (Acute) Acute upper GI bleed (Acute) Symptomatic anemia (Acute) Anemia requiring transfusions (Acute) Recurrent gastrointestinal hemorrhage Shaggy aorta syndrome SOB (shortness of breath) (Acute) Bronchitis (Acute) COPD exacerbation (Acute) Wheezing (Acute) Anemia (Acute) CRF (chronic renal failure) (Acute) Elevated troponin (Acute) Acute and chronic respiratory failure MGUS (monoclonal gammopathy of unknown significance) Goals of care, counseling/discussion Medical History Gastroparesis pt is not sure about this dx. History of colon polyps x1 a few yrs ago/follow up in 5 yrs. 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 Ascending thoracic aorta at the level of the right pulmonary artery 4.2 cm unchanged. 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 Descending thoracic aorta at the level of the left atrium again up to 4.[address] scan Dec 2022 - pt told everything was stable. 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 follows with Dr. Jefferson Gastric ulcer Hearing deficit BL NAILS Hx SBO History of GI bleed Stroke X 2 (LAST EVENT 05/2020) CONT. TO HAVE SLIGHT BALANCE ISSUES Sleep apnea CPAP Hx of gout PSVT (paroxysmal supraventricular tachycardia) Aortic stenosis Thoracic aortic atherosclerosis, densely calcified coronary arteries, severely calcified aortic valve, aneurysmal outpouching of the aortic arch. CKD (chronic kidney disease), stage III follows with [facility] nephrology Hyperlipidemia Hypertension Surgical History History of esophagogastroduodenoscopy (EGD) most recent a few months ago for a bleed, this is a follow up procedure. History of tooth extraction History of tonsillectomy and adenoidectomy pt not sure about adenoids. History of lumbar surgery 1999 S/P AAA repair 01/13/2009 - Dr Suazo ([place] [facility]) Hx of colonoscopy Hx of hernia repair lysis of adhesions, incisional hernia repair laparoscopically 01/28/2010 at [facility] - Dr Desouza Family History Other AAA (abdominal aortic aneurysm) Hypertension No family history of adverse response to anesthesia Social History Smoking Status: Former smoker Tobacco Type: Cigarettes Age Started Using Tobacco: 18; Cigarettes Per Day: Former cigarette. Quit 1998; Smoking End Date: 1998; Second Hand Exposure: No; Do You Dip or Chew Tobacco: No; Hx Alcohol Use: Yes Alcohol type: beer Alcohol type Comment: 3 beers a day Hx Substance Use: No Preferred Language: Citizen Of [place] Communication Ability: Effective Communication Ability Comment: pt communication effective [employer] Specialist Required: No Beliefs That Will Affect Care: None marital status: Current Living Situation: Family Current Living Situation Comment: and daughter current occupational status: employed Other Information That Helps Us Care for You: No Feels Safe at Home: Yes Safety Concerns: Feels Safe At This Time Assistive Devices: Glasses, Oxygen - Continuous and Walker Review of Systems Review of Systems: At least ten systems reviewed and negative, except as noted in the HPI. Physical Exam Physical Exam: General Appearance: Patient is awake, resting comfortably in bed w/ incline of his head. Some conversational dyspnea noted. He is hard of hearing. Head: Normocephalic, atraumatic. Eyes: Normal inspection, PERRL, conjunctivae normal, anicteric sclerae. ENT: External ear and nose normal, oropharynx normal. Does not appear dry on exam. Neck: Normal visual inspection, trachea midline, no thyromegaly. Respiratory: Breath sounds diminished bilaterally, scattered rales at both lung bases. Cardiovascular: Regular rate, rhythm, normal peripheral pulses, no BLE edema. Vessels: No JVD. Chest: Normal inspection of chest. Abdomen/GI: Normal bowel sounds, soft, nontender, no hepatosplenomegaly. Extremities/Musculoskeletal: No cyanosis or clubbing, extremities motor strength 5/5. Neurologic: PERRL, EOMI, accommodation nl, no face palsy, no dysarthria, CN's II-XI grossly intact bilaterally and moves all extremities. Psychiatric: A+Ox3, euthymic affect. Skin: No rashes, normal color, warm/dry. Results & Data Results & Data Vital Signs (Past 12 Hours) Vital Signs Temp Pulse Pulse Resp BP BP Pulse Ox 09/02/23 20:30 90 16 157/112 H 93 09/02/23 20:11 91 H 23 186/110 H 94 09/02/23 20:00 92 H 15 95 09/02/23 19:30 91 H 22 94 09/02/23 19:25 89 24 167/119 H 95 09/02/23 19:24 89 09/02/23 18:47 96 09/02/23 18:33 36.9 C 90 24 166/97 H 96 09/02/23 18:33 96 09/02/23 18:33 09/02/23 18:33 89 24 166/97 H 96 O2 Del Method O2 Flow Rate 09/02/23 20:30 Nasal Cannula 3 09/02/23 20:11 Nasal Cannula 3 09/02/23 20:00 Nasal Cannula 3 09/02/23 19:30 Nasal Cannula 3 09/02/23 19:25 Nasal Cannula 3 09/02/23 19:24 09/02/23 18:47 Nasal Cannula 3 09/02/23 18:33 Nasal Cannula 3 09/02/23 18:33 Nasal Cannula 3 09/02/23 18:33 Nasal Cannula 3 09/02/23 18:33 Nasal Cannula 3 Laboratory Results Short CBC 09/02/23 Range/Units 18:49 WBC 8.63 (4.8-10.8) K/ul Hgb 11.9 L (14.0-18.0) g/dl Hct 36.2 L (42.0-52.0) % Plt Count (130-400) K/uL BMP 09/02/23 18:49 Sodium 136 Potassium 3.8 Chloride 101 Carbon Dioxide 24 BUN 31 H Creatinine 2.33 H Glucose 104 H Calcium 9.2 Liver Function 09/02/23 Range/Units 18:49 Total Bilirubin 0.6 (0.2-1.0) mg/dl AST 22 (13-39) U/L ALT 20 (7-52) U/L Alkaline Phosphatase 124 H (34-104) U/L Albumin 4.0 (3.4-5.0) gm/dl Diagnostic Findings Head CT 09/02/23 18:41 Exam(s): CT HEAD Without Contrast EXAM: CT Head Without Intravenous Contrast CLINICAL HISTORY: Reason for exam: ataxia. TECHNIQUE: Axial computed tomography images of the head/brain without intravenous contrast. CTDI is 62.75 mGy and DLP is 1098.96 mGy-cm. Automated exposure control was utilized for the study. A dose lowering technique was utilized adhering to the principles of ALARA. COMPARISON: 07/21/23 FINDINGS: Brain: Chronic cortical infarcts right frontal lobe, right parietal lobe, and left occipital lobe. Blair-white matter differentiation otherwise maintained. No hemorrhage, mass-effect, or parenchymal edema. Multiple chronic lacunar infarcts bilateral basal ganglia. Chronic right cerebellar infarct. Ventricles: Unremarkable. No hydrocephalus. Bones/joints: Unremarkable. No acute fracture. Soft tissues: Unremarkable. Vasculature: Intracranial atherosclerosis. Sinuses: Unremarkable as visualized. Mastoid air cells: Unremarkable as visualized. No mastoid effusion. Orbits: Bilateral lens replacements. IMPRESSION: No acute intracranial process. Electronically signed by: Socorro Amezcua M.D. 09/02/23 19:44 PM Medications Administered Discontinued Medications Furosemide (Furosemide 40 Mg/4 Ml Vial) 40 mg IV ONE ONE Stop: 09/02/23 20:23 Last Admin: 09/02/23 20:40 Dose: 40 mg Documented By: KMB ECG Additional Comments: Per my interpretation, EKG performed in the ED displays NSR w/ HR 89, QRS duration 90ms, QT/QTc 390/474ms and [place] interval 144ms. Code Status & VTE Plan Code Status FULL CODE Supervising Physician Co-Signing Physician Notes IM ATTENDING : Patient seen and examined. History obtained from patient, family, and records. Concur with salient points upon review of preceding documentation by Ms. Tarsha Salinas PA-C. I take responsibility for plan of care below. FINAL ASSESSMENT AND PLAN as follows : Shortness of breath secondary to COPD exacerbation, complicated bronchitis hx chronic respiratory failure secondary to COPD on home O2, GINNY/nocturnal hypoxemia on CPAP No sepsis for now Troponin elevation secondary to illness in the setting of chronic kidney dysfunction Chronic diastolic heart failure (EF 65%, TTE 2022), some congestion on x-ray history PSVT valvular heart disease (severe , mild AR),patient not a surgical candidate as per outpatient notes history TAA AAA status post surgery hx recurrent embolic CVA secondary to shaggy aorta syndrome on Eliquis Rx History of GERD, gastric ulcer as per records, no recent overt GI bleed hyperlipidemia on statin Rx hx Waldenstrom macroglobulinemia Chronic anemia, hemoglobin at baseline Hyperglycemia likely prediabetes, hemoglobin A1c of 6.17 February 2023 past tobacco abuse OBS Med/tele Doxycycline, prednisone, nebs RTC Pulmonary consult if without improvement Continue home diuretic Rx DVT prophylaxis. Eliquis Full code Patient daughter requesting updates providers. Ms. Salina Estevez, contact #[phone]. Text document was generated using [employer] voice recognition software. It may contain grammatical or spelling errors. Kindly contact undersigned for clarification of any documentation item in question.
[2023-09-02 21:21] LABS: Adenovirus PCR Not Detected (NotDetected); Bordetella parapertussis PCR Not Detected (NotDetected); Bordetella pertussis PCR Not Detected (NotDetected); Chlamydia pneumoniae PCR Not Detected (NotDetected); Coronavirus 229E PCR Not Detected (NotDetected); Coronavirus CoV-2 (COVID19)PCR Not Detected (NotDetected); Coronavirus HKU1 PCR Not Detected (NotDetected); Coronavirus NL63 PCR Not Detected (NotDetected); Coronavirus OC43PCR Not Detected (NotDetected); Human Metapneumovirus PCR Not Detected (NotDetected); Influenza A PCR Not Detected (NotDetected); Influenza B PCR Not Detected (NotDetected); Mycoplasma pneumoniae PCR Not Detected (NotDetected); Parainfluenza Virus 1 PCR Not Detected (NotDetected); Parainfluenza Virus 2 PCR Not Detected (NotDetected); Parainfluenza Virus 3 PCR Not Detected (NotDetected); Parainfluenza Virus 4 PCR Not Detected (NotDetected); Respiratory Syncytial VirusPCR Not Detected (NotDetected); Rhinovirus/Enterovirus PCR Not Detected (NotDetected)
[2023-09-02 21:36] LABS: Appearance Urine Clear (Clear); Bacteria Urine Automated None Seen (None Seen); Bilirubin Urine Negative (Negative); Blood Urine Negative (Negative); Cast Urine Automated 0-2 /lpf (0-2); Color Urine Yellow; Epithelial Cell Urine Auto 0-2 /hpf (0-2); Glucose Urine UA Negative (Negative); Ketones Urine Negative (Negative); Leukocyte Esterase Urine Negative (Negative); Nitrite Urine Negative (Negative); Protein Urine 2+ (Negative); RBC Urine Automated 0-2 /hpf (0-2); Specific Gravity Urine 1.009 (1.000-1.030); Urobilinogen Urine Negative (Negative); WBC Urine Automated 0-5 /hpf (0-5); pH Urine 6.5 (4.5-7.5)
[2023-09-02] MEDS: IPRATROPIUM BROMIDE NEB SOLN 0.02% 0.5MG/2.5ML VIAL INH STA (22:09)
[2023-09-02] MEDS: LEVALBUTEROL 1.25 MG/3 ML NEB NEB STA (22:09)
[2023-09-02] MEDS ORDERED: PROMETHAZINE HCL 6.25 MG in SODIUM CHLORIDE 0.9% 50 ML IV PRN (22:19)
[2023-09-02] MEDS ORDERED: traMADol HCL 50 MG TABLET PO PRN (22:19)
[2023-09-02] MEDS: MAGNESIUM SULFATE / D5W 1 GM/100 ML BAG IV ONE (22:20)
[2023-09-02] MEDS: methylPREDNISolone 20 MG in SYRINGE 0 ML IV ONE (23:19)
[2023-09-02] MEDS: DOXYCYCLINE HYCLATE 100 MG in DEXTROSE 5% MINI-B 100 ML IV STA (23:19)
[2023-09-02] MEDS: POTASSIUM CHLORIDE CRTAB 20 MEQ TABCR PO STA (23:19)
[2023-09-03] MEDS ORDERED: ACETAMINOPHEN 325 MG TAB PO PRN (02:05)
[2023-09-03] MEDS ORDERED: NITROGLYCERIN SL 0.4 MG/TAB TAB SL PRN (02:05)
[2023-09-03] MEDS: APIXABAN 2.5 MG TAB PO SCH (02:41)
[2023-09-03] MEDS: METOPROLOL TARTRATE 25 MG TAB PO SCH (02:41)
[2023-09-03] MEDS: PANTOprazole 40 MG TAB PO SCH (02:42)
[2023-09-03] MEDS: LEVALBUTEROL 1.25 MG/3 ML NEB NEB SCH (07:31)
[2023-09-03] MEDS: IPRATROPIUM BROMIDE NEB SOLN 0.02% 0.5MG/2.5ML VIAL INH SCH (07:31)
[2023-09-03 07:35] LABS: Anion Gap 11 (3-11); BUN Creatinine Ratio 15.9 (10-20); Blood Urea Nitrogen 36 mg/dl (6-23); Calcium 9.5 mg/dl (8.6-10.3); Carbon Dioxide 26 mmol/L (21-32); Chloride 99 mmol/L (98-107); Creatinine Clr Calc Pharmacy 29.5 ml/min; Est GFR (African American) 31.7 ml/min; Est GFR (Non-African American) 27.4 ml/min; Glucose 146 mg/dl (70-99(Fasting)); Sodium 136 mmol/L (136-145)
--- NOTE | 2023-09-03 07:35 | XRay Report ---
XR chest 1V portable HISTORY: 73 years-old Male Dyspnea acute shortness of breath COMPARISON: 07/21/2023 TECHNIQUE: AP view of the chest FINDINGS: Calcified pleural plaques in the left hemithorax redemonstrated. Cardiac silhouette is enlarged. Athe rosclerosis of the aorta with aneurysmal dilation redemonstrated. Chronic interstitial worsening. No pneumothorax, large pleural effusion or lobar airspace consolidation. Pulmonary vascular congestion. Bones appear grossly intact. IMPRESSION: 1. Cardiomegaly with suggestion of mild pulmonary edema. 2. Calcified pleural plaques in the left hemithorax redemonstrated. ACT 112: Negative or not required by law. The above report was generated using voice recognition software. It may contain grammatical, syntax o r spelling errors. Electronically signed by: Dawson Degroot M.D. 09/03/2023 7:34 AM
[2023-09-03 07:39] LABS: Basophils # (auto) 0.04 K/uL (0.00-0.20); Basophils % (auto) 0.5 %; Hematocrit (blood only) 41.9 % (42.0-52.0); Hemoglobin 13.6 g/dl (14.0-18.0); Immature Granulocytes # (auto) 0.05 K/uL (0.01-0.20); Immature Granulocytes % (auto) 0.7 %; Lymphocytes % (auto) 6.7 %; Mean Corpuscular Hemoglobin 33.8 pg (25.0-34.0); Mean Corpuscular Hgb Conc 32.5 g/dL (32.0-36.0); Mean Corpuscular Volume 104.2 fL (80.0-100.0); Mean Platelet Volume 10.8 fL (9.4-12.4); Monocytes # (auto) 0.11 K/uL (0.11-0.59); Monocytes % (auto) 1.5 %; Neutrophils # (auto) 6.71 K/uL (1.40-6.50); Neutrophils % (auto) 90.6 %; Platelet Count 223 K/uL (130-400); RDW Coefficient of Variation 15.1 % (11.5-14.5); RDW Standard Deviation 59.1 fL (36.4-46.3); Red Blood Count 4.02 M/uL (4.70-6.10); White Blood Count 7.41 K/ul (4.8-10.8)
[2023-09-03] MEDS: FLUTICASONE FUROATE 100MCG 14 PUFFS/INHALER INH SCH (08:26)
[2023-09-03] MEDS: allopurinoL 300 MG TAB PO SCH (08:26)
[2023-09-03] MEDS: UMECLIDINIUM/VILANTEROL 62.5/25MCG 7 PUFFS/INHALER INH SCH (08:26)
[2023-09-03] MEDS: FUROSEMIDE 20 MG TAB PO SCH (08:27)
[2023-09-03] MEDS: AZELASTINE HCL 0.1% NASAL 200 SPRAYS/27,400 MCG BTL PRN (08:27)
[2023-09-03] MEDS: DOXYCYCLINE HYCLATE 100 MG CAP PO SCH (08:27)
[2023-09-03] MEDS: ATORVASTATIN 40 MG TAB PO SCH (08:27)
[2023-09-03] MEDS: EZETIMIBE 10 MG TAB PO SCH (08:27)
[2023-09-03] MEDS: predniSONE 20 MG TAB PO SCH (08:27)
[2023-09-03] MEDS: FLUTICASONE PROPIONATE NA SPR 16 GM BTL SCH (08:27)
[2023-09-03] MEDS: POTASSIUM CHLORIDE CRTAB 20 MEQ TABCR PO SCH (08:29)
[2023-09-03] MEDS ORDERED: NON-FORMULARY MEDICATION (Fluticasone-Umeclidin-Vilanter [Trelegy Ellipta] 100-62.5-25 mcg INH SCH (09:00)
--- NOTE | 2023-09-03 10:10 | CT Scan Report ---
CT chest diagnostic wo con CT DOSE: 839.68 mGy.cm CLINICAL HISTORY: 73 years-old Male with r/o pneumonia, pleural effusion. Acute shortness of breath TECHNIQUE: Multiaxial CT images of the chest were performed without contrast. A dose lowering techni que was utilized adhering to the principles of ALARA. COMPARISON: 01/27/2023, chest CT 04/22/2023 FINDINGS: Unremarkable thyroid. No lymphadenopathy. Gynecomastia. Atherosclerosis of the aorta with n umerous areas of aneurysmal dilation. This includes the aortic arch which measures 5.8 cm transversel y. Secondary aneurysms of the descending thoracic aorta measure up to 1.5 cm on image 170. Fusiform d ilation of the descending thoracic aorta measures up to 5 cm. Extensive coronary artery calcification s. Heart is normal in size without pericardial effusion. There is no pneumothorax, pleural effusion or overt pulmonary edema. Emphysema with areas of scarring /fibrosis redemonstrated. Calcified pleural plaques of the left hemithorax. Chronic left lung volume loss. Chronic scarring with atelectasis of the lingula and left upper lobe. 8 mm linear nodule within the right lower lobe on image 176 appears new from prior. There is improved aeration of the right mary lou ng compared to the prior study. Moderate atelectasis versus scarring at the right lung base. Central airways are patent. Postoperative changes of the stomach and anterior abdominal wall redemonstrated. Unremarkable soft ti ssues. No acute fracture. IMPRESSION: 1. Emphysema without acute intrathoracic abnormality. 2. Chronic scarring with atelectasis. 3. 8 mm solid nodule of the right lower lobe appears new from prior. Follow-up guidelines below. 4. Extensive atherosclerosis with areas of aneurysmal dilation of the thoracic aorta redemonstrated m easuring up to 5.8 cm, unchanged from 04/22/2023. 5. No lymphadenopathy. Please refer to below summary of Fleischner criteria recommendations for follow-up of incidental CT n odules (Bert Whipple, Guidelines for management of small pulmonary nodules detected on CT scans: A sta tement from the Fleischner Society, Radiology 237: [phone].) SOLID NODULES Solitary nodule size: <6 mm * Low risk patients: no follow-up needed * high risk patients: optional CT at 12 months Solitary nodule size: 6-8 mm * Low risk patients: follow-up at 6-12 months, then consider further follow-up at 18-24 months * high risk patients: initial follow-up CT at 6-12 months and then at 18-24 months if no change Solitary nodule size: >8 mm * either low or high risk patients - consider follow-up CT at 3 months, and/or CT-PET, and/or biopsy Note: newly detected indeterminate nodule in persons 35 years of age or older. * Low risk patients: minimal or absent history of smoking and/or other known risk factors * high risk patients: history of smoking or of other known risk factors (e.g. first degree relative with lung cancer, or exposure to asbestos, radon, uranium) * if a nodule up to 8 mm is partly solid or is ground glass further follow-up is required after 24 m [address] to exclude possible slow growing adenocarcinoma (KATHERINE) ACT 112: Negative or not required by law. Electronically signed by: Dawson Degroot M.D. 09/03/2023 10:08 AM
[2023-09-03] MEDS: guaiFENesin 600 MG TABCR PO SCH (10:39)
[2023-09-03] MEDS: AMOXICILLIN/CLAVULANATE 500 MG TAB PO SCH (10:39)
[2023-09-03] MEDS: ADVANCED PROBIOTIC 625 MG CAPSULE PO SCH (10:39)
--- NOTE | 2023-09-03 10:39 | Electrocardiogram Report ---
Test Reason : Blood Pressure : / mmHG Vent. Rate : 089 BPM Atrial Rate : 089 BPM P-R Int : 144 ms QRS Dur : 090 ms QT Int : 390 ms P-R-T Axes : -03 026 047 degrees QTc Int : 474 ms Normal sinus rhythm Normal ECG When compared with ECG of 21-JUL-2023 10:09, Vent. rate has increased BY 29 BPM T wave inversion no longer evident in Inferior leads Confirmed by Donald Wagner ([id number]) on 09/03/2023 10:38:40 AM Referred By: REFERRED SELF Confirmed By:Donald Wagner
[2023-09-03] MEDS ORDERED: SODIUM CHLOR 7% 4 ML NEB NEB PRN (11:35)
[2023-09-03] MEDS: SODIUM CHLOR 7% 4 ML NEB NEB SCH (13:45)
[2023-09-03] MEDS: DOCUSATE SODIUM 100 MG CAP PO PRN (15:04)
[2023-09-03] MEDS: ACETAMINOPHEN 325 MG TAB PO PRN (15:04)
--- NOTE | 2023-09-03 17:39 | Hospitalist Progress Note ---
Date of Service September 03, 2023 Assessment & Plan (1) COPD (chronic obstructive pulmonary disease): (2) Current use of snf anticoagulation: (3) SOB (shortness of breath): (4) History of GI bleed: (5) Chronic respiratory failure with hypoxia, on home O2 therapy: (6) CKD (chronic kidney disease): (7) Shaggy aorta syndrome: (8) MGUS (monoclonal gammopathy of unknown significance): Plan per admitting service notes with addendum: Mikhail Fung is a 72y/o M with PMHx of hyperlipidemia, hyperparathyroidism, idiopathic chronic gout, COPD, GINNY on CPAP, HTN, left renal artery stenosis, abdominal aortic aneurysm, severe aortic stenosis, chronic diastolic CHF, shaggy aorta syndrome, chronic kidney stage IV, iron deficiency anemia due to chronic blood loss, Waldenstrm's macroglobulinemia, history of AAA repair, history of SVT, history of biliary stent insertion, hx of GI bleed and other medical problems listed below presenting with SOB x 2 days. FINAL ASSESSMENT AND PLAN as follows : Shortness of breath secondary to COPD exacerbation, complicated bronchitis hx chronic respiratory failure secondary to COPD on home O2, GINNY/nocturnal hypoxemia on CPAP No sepsis for now - 1. Emphysema without acute intrathoracic abnormality. 2. Chronic scarring with atelectasis. 3. 8 mm solid nodule of the right lower lobe appears new from prior. Follow-up guidelines below. 4. Extensive atherosclerosis with areas of aneurysmal dilation of the thoracic aorta redemonstrated measuring up to 5.8 cm, unchanged from 04/22/2023. 5. No lymphadenopathy. Please refer to below summary of Fleischner criteria recommendations for follow- up of incidental CT nodules (Bert Whipple, Guidelines for management of small pulmonary nodules detected on CT scans: A statement from the Fleischner Society, Radiology 237: [phone].) -Clinically improving On [address] chest no pneumonia, pleural effusion Continue prednisone, nebs, Augmentin plus doxycycline Continue usual home inhalers Troponin elevation secondary to illness in the setting of chronic kidney dys function Chronic diastolic heart failure (EF 65%, TTE 2022), some congestion on x-ray history PSVT valvular heart disease (severe , mild AR),patient not a surgical candidate as per outpatient notes history TAA AAA status post surgery 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 Eliquis Full code Anticipate discharge to home medically stable Admission and Anticipated Discharge Date Admission Date: September 02, 2023 Subjective Follow-up for tube exacerbation, etc. Seen resting in bed side chair, comfortable, on 2 L States his breathing is improving compared to yesterday Still having productive cough, but no shortness of breath No fevers or chills Reports sharp left mid abdominal wall discomfort after he turned to the right side No nausea vomiting, positive BMs No other new symptoms Review of Systems Review of Systems: all noted and negative except for above Physical Exam Physical Exam: General- oriented x 3, not in distress, speaks in sentences with no effort or accessory muscle use Eyes- anicteric Neck- no JVD Lungs- clear breath sounds bilaterally, no rales/wheezes Heart- normal rate, regular rhythm; no murmurs Abdomen- normal bowel sounds, nondistended, soft, Mild tenderness small area on the left mid abdominal wall Extremities- no pretibial edema, no calf tenderness Neuro- alert, oriented x 3; no gross focal neurologic deficits Skin- warm & dry Results & Data Results & Data Vital Signs (Past 12 Hours) Vital Signs Temp Pulse Pulse Resp BP Pulse Ox O2 Del Method 09/03/23 16:49 74 09/03/23 15:58 73 15 91 Nasal Cannula 09/03/23 15:45 36.5 C 74 18 114/72 95 Nasal Cannula 09/03/23 11:25 73 15 94 Nasal Cannula 09/03/23 11:10 36.6 C 73 18 114/69 95 Nasal Cannula 09/03/23 09:00 68 09/03/23 09:00 Nasal Cannula 09/03/23 08:04 36.5 C 74 20 131/83 95 Nasal Cannula 09/03/23 07:33 71 15 93 Nasal Cannula O2 Flow Rate 09/03/23 16:49 09/03/23 15:58 3 09/03/23 15:45 2 09/03/23 11:25 3.5 09/03/23 11:10 3 09/03/23 09:00 09/03/23 09:00 09/03/23 08:04 3 09/03/23 07:33 4 all noted and reviewed including below
[2023-09-03] MEDS: LIDOCAINE 5% 1 PATCH TD SCH (18:43)
--- OUTSIDE RECORDS SUMMARY | 2023-09-03 23:18 | External Medical Summary ---
Author Name Unknown Address Unknown Organization K09:[facility] [place] [address] Laboratory Report Ordering Provider Test Date Status LOLLY ALEGRIA 08/26/2023 14:02:51 Final Observation Date Value Abnormality Reference (Units ) Status SYNC LEUKOCYTES IN BLOOD BY AUTOMATED COUNT 08/26/2023 14:02:51 9.23 4.00-10.80 (K/uL) Final Segs 08/26/2023 14:02:51 74.3 40.0-75.0 (%) Final Lymphs % 08/26/2023 14:02:51 12.1 Below low normal 18.0-42.0 (%) Final Monos 08/26/2023 14:02:51 8.0 1.0-11.0 (%) Final Eosinophils 08/26/2023 14:02:51 5.2 0.0-6.0 (%) Final Basos 08/26/2023 14:02:51 0.4 0.0-2.0 (%) Final Absolute Segs 08/26/2023 14:02:51 6.85 1.80-7.70 (K/uL) Final Lymphs, absolute 08/26/2023 14:02:51 1.12 1.00-4.80 (K/ul) Final Monos, Abs 08/26/2023 14:02:51 0.74 0.00-1.10 (K/uL) Final Eos, Abs 08/26/2023 14:02:51 0.48 0.00-0.70 (K/uL) Final Basos, Abs 08/26/2023 14:02:51 0.04 0.00-0.20 (K/uL) Final Performing Location [facility] [place] [address]
--- OUTSIDE RECORDS SUMMARY | 2023-09-03 23:18 | External Medical Summary | Summary of Care ---
Author Name Unknown Organization [facility] Address [address] [place] [address] Phone [phone] Care Team Providers Care Lens Coating Technician Name Role Phone Jairo Kingston MD Primary Care Provider [phone] Reason for Visit * Reason Comments Procedure Lab draw IV Therapy Venofer Encounter Details Date Type Department Care Team (Latest Contact Info) Description 06/17/2023 1:30 PM EST Hem/Onc Treatment Hematology/Oncology Treatment, [address] [address] [place], Chair 3 Hem Onc [address] [address] Iron deficiency anemia due to chronic blood loss* Allergies Active Allergy Reactions Criticality Noted Date Comments Pavan Inhibitors Other (Please comment) 0 Hyperkalemia documented as of this encounter (statuses as of 08/20/2023) Medications Medication Sig Dispensed Refills Start Date End Date Status oxygen GAS Use 3 L/min(Oxygen) as directed at bedtime. Use 2-3 l/min continuously to keep pulse ox above 90% 0 Active CVS D3 50 MCG (1999) Oral Capsule (Cholecalciferol)Ind ications:Vitamin D deficiency TAKE 1 CAPSULE BY MOUTH EVERY DAY 90 Cap 1 0 Active Potassium Chloride Marla ER 10 MEQ [...] at noon. 90 Tablet 3 3 Active Additional Information Patient not taking.Reported on 04/26/2023 Albuterol Sulfate HFA 108 (90 Base) MCG/ACT Inhalation Aerosol Solution Inhale 2 Puffs by mouth every 4 hours as needed for Wheezing. 54 g 6 3 Active Azelastine HCl 0.1 % Nasal Solution (Astelin) Administer 1 [place] into nostril in the morning and 1 [place] before bedtime. 30 mL 1 3 Active Furosemide 20 MG Oral Tablet (Lasix) TAKE 1 TABLET BY MOUTH twice DAILY 90 Tablet 3 3 Active Octreotide Acetate 10 MG Intramuscular Kit (SandoSTATIN LAR [place]) Inject 10 mg into a large muscle every month for 6 doses. 6 Kit 0 3 Active Additional Information Patient not taking.Reported on 04/26/2023 Ezetimibe 10 MG Oral Tablet (Zetia)Indications:D yslipidemia, goal LDL below 70 TAKE ONE TABLET BY MOUTH EVERY MORNING 90 Tablet 3 3 02/04/20 24 Active Metoprolol Tartrate 25 MG Oral Tablet (Lopressor) Take 1 Tablet by mouth in the morning and 1 Tablet before bedtime. 100 Tablet 3 3 Active Docusate Sodium 100 MG Oral Capsule (Colace) Take 1 Capsule by mouth 2 times a day as needed for Constipation. 180 Capsule 3 4 Active Pantoprazole Sodium 40 MG Oral Tablet Delayed Release (Protonix) Take 1 Tablet by mouth in the morning and 1 Tablet before bedtime. 180 Tablet 3 4 Active Allopurinol 300 MG Oral Tablet (Zyloprim)Indication s:Gout TAKE ONE-HALF TABLET BY MOUTH EVERY DAY 45 Tablet 2 4 05/31/19 25 Active Fluticasone Propionate 50 MCG/ACT Nasal Suspension (Flonase) INSTILL 2 SPRAYS INTO EACH NOSTRIL EVERY DAY 48 g 3 3 07/29/19 24 Discontinue d(Refill) Atorvastatin Calcium 80 MG Oral Tablet (Lipitor) TAKE ONE TABLET BY MOUTH EVERY DAY 90 Tablet 3 3 08/09/19 24 Apixaban 2.5 MG Oral Tablet (Eliquis)Indications :Recurrent cerebrovascular accidents (CVAs) (HCC) Take 1 Tablet by mouth in the morning and 1 Tablet before bedtime. 180 Tablet 1 3 07/26/19 24 Discontinue d(Refill) Ipratropium-Albutero l 0.5-2.5 (3) MG/3ML Inhalation Solution (Duoneb) Inhale 3 mL by mouth every 6 hours as needed (sob). 360 mL 5 3 07/26/19 24 Discontinue d(Refill) Trelegy Ellipta 100-62.5-25 MCG/ACT Aerosol Powder Breath Activated (Fluticasone-Umeclid inium-Vilanterol) Inhale one puff daily 180 Each 1 3 08/01/19 24 Discontinue d(Refill) documented as of this encounter (statuses as of 08/20/2023) Active Problems Problem Noted Date Diagnosed Date Chronic kidney disease, stage 4 (severe) 024 Chronic respiratory failure, unsp w hypoxia or h ypercapnia 05/16/2023 Chronic diastolic congestive heart failure 05/16 Chronic obstructive pulmonary disease 05/16/2023 Supraventricular tachycardia 05/16/2023 Hypertensive chronic kidney disease with stage 1 through stage 4 chronic kidney disease, or unspecified chronic kidney disease 05/16/2023 Supraventricular tachycardia 05/16/2023 COPD, group D, by GOLD 2017 classification 04/25 Overview: Per COPD GOLD Classification 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 Hypertensive heart and chron ic kidney disease with diastolic congestive heart failure 12/14/2022 History of biliary stent insertion 12/08/2022 GI bleed 12/08/2022 Benign hypertensive kidney disease, stage IV Last Assessment & Plan: Norfrancisco javier lopressor History of supraventricular tachycardia 11/12/19 Idiopathic chronic gout of foot without tophus 0 11/11/2022 Last Assessment & Plan: Allopurinol jail No new attacks GINNY on CPAP 11/11/2022 [...] as of this encounter (statuses as of 08/20/2023) Resolved Problems Problem Noted Date Diagnosed Date Resolved Date COPD, group C, by GOLD 2017 classification 12/27/2022 04/28/2023 Overview: Per COPD GOLD Classification Anemia due to stage 3b chronic kidney [...] as of this encounter (statuses as of 08/20/2023) Immunizations Name Administration Dates Next Due COVID-19 [...] Date Smoking Tobacco: Former Cigarettes 1 35 1 974 - 2008 Cigars 04/18/1973 - 0 04/18/2008 Smokeless Tobacco: Never Alcohol Use Standard Drinks/Week [...] Sign Reading Time Taken Comments Blood Pressure 131/70 06/17/2023 2:43 PM EST Pulse 66 06/17/2023 2:43 PM EST Temperature 36.6 C (97.9 F) 06/17/2023 2:43 PM ES T Respiratory Rate 16 06/17/2023 2:43 PM EST Oxygen Saturation 90% 06/17/2023 2:43 PM EST Inhaled Oxygen Concentration - - Weight - - Height - - Body Mass Index - - documented in this encounter Nursing Notes * Angel Zamudio RN - 06/17/2023 4:00 PM EST Pt infusion completed, IV site removed without issues, catheter tip intact. Pt ambulated from treatment room in stable condition. Goals: Pt will remain free from injury. Possible barriers to meeting goals: IV line, requires O2. Stability of the patient: Moderately stable - low risk of patient condition declining or worsening Summary regarding today's goals: Met: Pt remained free from injury. * Angel Zamudio RN - 06/17/2023 2:44 PM EST Chair 10. Pt IV inserted into LH without issues. Labs drawn from IV site, 10mL waste completed. Fluids infusing per orders. Safety and Risk for Injury Patient will remain free from injury. Ensure appropriate safety devices are available. Provide and maintain safe environment. documented in this encounter Plan of Treatment Upcoming Encounters Date Type Department Care Team (Late st Contact Info) Description 08/26/2023 2:00 PM EDT Hem/Onc Treatment Hematology/Oncology Treatment, [place] [address] [place] [phone] Hannah, Chair 6 Hem Onc Scenery [address] [place], [place] [address] 09/13/2023 10:00 AM EDT Home Visit clarita at [place], [facility] [address] [facility] [place] [address] Jenifer Linder RN [address] [facility] [place] [address] 09/23/2023 2:00 PM EDT Hem/Onc Treatment Hematology/Oncology Treatment, [place] [address] [place], [place] [phone] Hannah, Chair 8 Hem Onc Scen[address] [place] [address] 10/10/2023 9:00 AM EDT Office Visit [facility] [address] [place] [phone] Jairo Kingston MD [address] [place] [address] 11/30/2023 8:30 AM EDT Procedure Only Endoscopy, [facility] [address] [facility] [place] [address] Lacie England MD [address] [facility] [place] [address] 12/13/2023 3:00 PM EDT Office Visit Nephrology, [facility] [address] [place] [address] Reggie Azevedo MD [address] [place] [address] 01/19/2024 4:45 PM EDT Imaging Radiology [facility], [place] [address] [facility] [place] [address] 03/28/2024 3:20 PM EST Office Visit [facility] [address] [place] [phone] Shanika Fitzgerald, [address] [place] [address] Scheduled Procedures Name Priority Associated Diagnoses Date/Ti [...] ( season) 2022 02/19/2021, 06/19/2020, 05/22/2020 GFR 11/18/2023 05/20/2023, 10/2022, 01/26/2023, Additional history exists O2 ASSESSMENT COMPLETED IN PAST YEAR FOR COPD 12/11/2023 12/10/2022 Nephrology Referral 02/23/2024 02/22/2023 PTH 02/23/2024 02/22/2023, 12/17, 06/03/2021, Additional history exists Phosphate 02/23/2024 02/22/2023, 11/17, 12/31/2021, Additional history exists Hgb 07/28/2024 07/29/2023, 06/16, 06/17/2023, Additional history exists Colonoscopy 01/02/2026 01/02/2021, 07/17, 08/02/2017, Additional history exists DTaP,Tdap,and Td Vaccines (4 - Td or Tdap) 03/04/2032 03/04/2022, 12/14/2011, 06/11/2002 Pneumococcal Vaccine: 65+ Years Completed 06/12/2015, 06/10/2014 RETIRED - COLONOSCOPY-EVERY 5 YRS AGES 18-100 Discontinued 01/02/2021, 08/02/2017, 08/02/2017, [...] this encounter Medical Devices Implanted Type Area Machinist First Class Device Identifier Shelf Expiration Date Model / Serial / Lot Graft Hemasheild 20mm [id number] - [id number] Implanted:Qty: 1 on 01/13/2009 at OR [facility] N/A: Abdomen MICROVASIVE [id number] / / [id number] Clip Resolution 360 Endo 235cm - [id number] Implanted:Qty: 1 on 12/10/2022 by Lacie England MD at OR [facility] [employer] : ENDOSCOPY [id number] 07/02/2025 [id number] / / [id number] Clip Resolution 360 Endo 235cm - [id number] Implanted:Qty: 1 on 12/10/2022 by Lacie England MD at OR [facility] [employer] : ENDOSCOPY [id number] 07/02/2025 [id number] / / [id number] Stent Axios [id number] - [id number] Implanted:Qty: 1 on 12/10/2022 by Lacie England MD at OR [facility] [employer] : ENDOSCOPY [id number] 04/06/2023 [id number] / / [id number] documented as of this encounter Procedures Procedure Name Priority Date/Time Associated Diagnosis Comments DIFFERENTIAL, AUTOMATED STAT 06/17/2023 1:28 PM EST Iron deficiency anemia due to chronic blood loss IRON SCREEN, INCLUDING TIBC STAT 06/17/2023 1:28 PM EST Iron deficiency anemia due to chronic blood loss CBC STAT 06/17/2023 1:28 PM EST Iron deficiency anemia due to chronic blood loss CBC STAT 06/17/2023 1:28 PM EST Iron deficiency anemia due to chronic blood loss DIFFERENTIAL, TECHNOLOGIST REVIEW Routine 06/17/2023 1:28 PM EST Iron deficiency anemia due to chronic blood loss FERRITIN STAT 06/17/2023 1:28 PM EST Iron deficiency anemia due to chronic blood loss documented in this encounter Results * DIFFERENTIAL, TECHNOLOGIST REVIEW (06/17/2023 1:28 PM EST) Pathologist [facility] nRBCs 06/17/2023 2:30 PM EST [facility] 56-02 Blood Venous blood specimen / Unknown Venipuncture / Unknown 06/17/2023 1:28 PM EST 06/17/2023 2:06 PM EST [facility] BLOOD [facility] [address] [place] [address] * (ABNORMAL) DIFFERENTIAL, AUTOMATED (06/17/2023 1:28 PM EST) WBC 8.20 4.00 - 10.80 K/uL 06/17/2023 2:30 PM EST [facility] 56-02 Neutrophils % 65.9 40.0 - 75.0 % 06/17/2023 2:30 PM EST [facility] 56-02 Lymphocytes % 15.9(L) 18.0 - 42.0 % 06/17/2023 2:30 PM EST [facility] 56-02 Monocytes % 11.1(H) 1.0 - 11.0 % 06/17/2023 2:30 PM EST [facility] 56-02 Eosinophils % 6.2(H) 0.0 - 6.0 % 06/17/2023 2:30 PM EST [facility] 56-02 Basophils % 0.9 0.0 - 2.0 % 06/17/2023 2:30 PM EST [facility] 56 Absolute Neutrophils 5.41 1.80 - 7.70 K/uL 06/17/2023 2:30 PM EST [facility] 56 Absolute Lymphocytes 1.30 1.00 - 4.80 K/ul 06/17/2023 2:30 PM EST [facility] 56 Absolute Monocytes 0.91 0.00 - 1.10 K/uL 06/17/2023 2:30 PM EST [facility] 56 Absolute Eosinophils 0.51 0.00 - 0.70 K/uL 06/17/2023 2:30 PM EST [facility] 56 Absolute Basophils 0.07 0.00 - 0.20 K/uL 06/17/2023 2:30 PM [facility] 56 Blood Venous blood specimen / Unknown Venipuncture / Unknown 06/17/2023 1:28 PM EST 06/17/2023 2:06 PM EST [facility] BLOOD [facility] 56 [address] [place] [address] * (ABNORMAL) CBC (06/17/2023 1:28 PM EST) WBC 8.20 4.00 - 10.80 K/uL 06/17/2023 2:30 PM [facility] 56 RBC 3.21 4.50 - 5.25 M/uL 06/17/2023 2:30 PM [facility] 56 HGB 10.3(L) 14.0 - 16.8 g/dL 06/17/2023 2:30 PM EST [facility] 56 HCT 33.0(L) 40.0 - 48.4 % 06/17/2023 2:30 PM [facility] 56 MCV 102.8 82.0 - 99.5 fL 06/17/2023 2:30 PM EST [facility] 56 MCH 32.1 27.0 - 34.0 pg 06/17/2023 2:30 PM EST [facility] 56 MCHC 31.2 32.0 - 36.0 g/dL 06/17/2023 2:30 PM EST [facility] 56- RDW 17.0 11.5 - 15.5 % 06/17/2023 2:30 PM EST [facility] 56- PLT 06/17/2023 2:30 PM EST [facility] 56-02 Comment: Adequate platelets seen on slide. Cannot quantitate due to platelet clumping. MPV 10.9 6.6 - 11.1 fL 06/17/2023 2:30 PM EST [facility] 56-02 Blood Venous blood specimen / Unknown Venipuncture / Unknown 06/17/2023 1:28 PM EST 06/17/2023 2:06 PM EST [facility] [place] [address] [place] [address] * IRON SCREEN, INCLUDING TIBC (06/17/2023 1:28 PM EST) Iron 66 45 - 176 ug/dL 06/17/2023 11:09 PM EST [facility] Iron Binding Capacity 268 250 - 425 ug/dL 06/17/2023 11:09 PM EST [facility] Transferrin Saturation Percent 25 15 - 55 % 06/17/2023 11:09 PM EST [facility] Blood Venous blood specimen / Unknown Venipuncture / Unknown 06/17/2023 1:28 PM EST 06/17/2023 2:06 PM EST [facility] BLOOD [facility] [address] [place] [address] * FERRITIN (06/17/2023 1:28 PM EST) Ferritin 373 30 - 400 ng/mL 06/17/2023 11:40 PM EST [facility] Blood Venous blood specimen / Unknown Venipuncture / Unknown 06/17/2023 1:28 PM EST 06/17/2023 2:06 PM EST Sheri [facility] BLOOD ORDER [facility] [address] [place] [address] documented in this encounter Visit Diagnoses Diagnosis Iron deficiency anemia due to chronic blood loss- Primary Iron 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 (chronic) documented in this encounter Administered Medications Inactive Administered Medications - up to 3 most recent administrations Medication Order MAR Action Action Date Dose Rate Site Iron Sucrose (Venofer) 300 mg in NSS 250 mL ivpb 300 mg, IV Piggyback, ONCE, 1 dose, On Tue06/17/23 at 1545, Administer over 90 Minutes Start Infusion 06/17/2023 2:04 PM EST 300 mg 166.67 mL/hr NSS infusion 500 mL, Intravenous, at 50 mL/hr, CONTINUOUS, Starting on Tue06/17/23 at 1515, Until Tue06/17/23 at 2005 Start Infusion 06/17/2023 2:06 PM EST 500 mL 50 mL/hr documented in this encounter Advance Directives Documents on File Type Date Recorded Patient Occupational Therapist Rehab Manager Expl anation Power of Fitness Coach 07/30/2022 POWER OF A TTORNEY Latest Code [...] and were consensually agreed upon. Care Teams Lens Coating Technician Relationship Specialty Start Date End Date Jairo Kingston MD [address] [place] [address] PCP - General 12/21/05 documented as of this encounter
--- OUTSIDE RECORDS SUMMARY | 2023-09-03 23:18 | External Medical Summary | Summary of Care ---
Author Name Unknown Organization [facility] Address [address] [place] [address] Phone [phone] Care Team Providers Care Customer Operations Specialist Name Role Phone Jairo Kingston MD Primary Care Provider [phone] Reason for Visit * Reason Comments Infusion Venofer Encounter Details Date Type Department Care Team (Latest Contact Info) Description 07/29/2023 2:00 PM EDT Hem/Onc Treatment Hematology/Oncology Treatment, [address] [address] Hannah, Chair 10 Hem On[address] [address] Iron deficiency anemia due to chronic blood loss* Allergies Active Allergy Reactions Criticality Noted Date Comments Pavan Inhibitors Other (Please comment) 0 Hyperkalemia documented as of this encounter (statuses as of 08/29/2023) Medications Medication Sig Dispensed Refills Start Date End Date Status oxygen GAS Use 3 L/min(Oxygen) as directed at bedtime. Use 2-3 l/min continuously to keep pulse ox above 90% 0 Active [facility] D3 50 MCG (1999) Oral Capsule (Cholecalciferol)Ind ications:Vitamin D deficiency TAKE 1 CAPSULE BY MOUTH EVERY DAY 90 Cap 1 0 Active CPAP every night at bedtime. 0 [...] 0.1 % Nasal Solution (Astelin) Administer 1 [place] into nostril in the morning and 1 [place] before bedtime. 30 mL 1 3 Active [...] 90 Tablet 3 3 02/04/20 24 Active Docusate Sodium 100 MG Oral Capsule [...] 45 Tablet 2 4 05/31/19 25 Active Apixaban 2.5 MG Oral Tablet (Eliquis)Indications :Recurrent cerebrovascular accidents (CVAs) (HCC) Take 1 Tablet by mouth in the morning and 1 Tablet before bedtime. 180 Tablet 1 4 Active Ipratropium-Albutero l 0.5-2.5 (3) MG/3ML Inhalation Solution (Duoneb) Inhale 3 mL by mouth every 6 hours as needed (sob). 360 mL 5 4 Active Fluticasone Propionate 50 MCG/ACT Nasal Suspension (Flonase) INSTILL 2 SPRAYS INTO EACH NOSTRIL EVERY DAY 48 g 3 3 07/29/19 24 Discontinue d(Refill) Atorvastatin Calcium 80 MG Oral Tablet (Lipitor) TAKE ONE TABLET BY MOUTH EVERY DAY 90 Tablet 3 3 08/09/19 24 Potassium Chloride Marla ER 10 MEQ Oral Tablet Extended Release Take 1 Tablet by mouth once a day on Tuesday, Tuesday, and Tuesday only. 45 Tablet 3 3 08/24/19 24 Discontinue d(Refill) Metoprolol Tartrate 25 MG Oral Tablet (Lopressor) Take 1 Tablet by mouth in the morning and 1 Tablet before bedtime. 100 Tablet 3 3 08/24/19 24 Discontinue d(Refill) Trelegy Ellipta 100-62.5-25 MCG/ACT Aerosol Powder Breath Activated (Fluticasone-Umeclid inium-Vilanterol) Inhale one puff daily 180 Each 1 3 08/01/19 24 Discontinue d(Refill) documented as of this encounter (statuses as of 08/29/2023) Active Problems Problem Noted Date Diagnosed Date History of central retinal artery occlusion 07/2023 Chronic kidney disease, stage 4 (severe) 024 [...] as of this encounter (statuses as of 08/29/2023) Resolved Problems Problem Noted Date Diagnosed Date [...] as of this encounter (statuses as of 08/29/2023) Immunizations Name Administration Dates Next Due COVID-19 [...] Sign Reading Time Taken Comments Blood Pressure 142/86 07/29/2023 2:56 PM EDT Pulse 68 07/29/2023 2:56 PM EDT Temperature 36.7 C (98 F) 07/29/2023 2:56 PM EDT Respiratory Rate 18 07/29/2023 2:56 PM EDT Oxygen Saturation 94% 07/29/2023 2:56 PM EDT Inhaled Oxygen Concentration - - Weight - - Height - - Body Mass Index - - documented in this encounter Nursing Notes * Nyla Barajas LPN - 07/29/2023 2:57 PM EDT 1420: Pt arrived for Venofer infusion. PIV in LFA. Pt tolerated well. VSS. Labs drawn with IV start. No complaints at this time. 1600: Pt tolerated Venofer infusion well. PIV removed intact. Pt to return in 4 weeks. Discharged in stable condition. documented in this encounter Plan of Treatment Upcoming Encounters Date Type Department Care Team (Late st Contact Info) Description 09/13/2023 10:00 AM EDT Home Visit [facility] [address] [address] Jenifer Linder, RN [address] [address] 09/23/2023 2:00 PM EDT Hem/Onc Treatment Hematology/Oncology Treatment, [place] [address] [place] [address] Hannah, Chair 8 Hem Onc Sc[facility] [address] [place] [address] 10/10/2023 9:00 AM EDT Office Visit [facility] [address] [facility], [place] [phone] Jairo Kingston MD [address] [place] [facility] [address] 11/30/2023 8:30 AM EDT Procedure Only Endoscopy, [facility] [address] [facility] [place] [address] Lacie England MD [address] [facility] [place] [address] 12/13/2023 3:00 PM EDT Office Visit Nephrology, [facility] [address] [place] [address] Reggie Azevedo MD [address] [place] [address] 01/19/2024 4:45 PM EDT Imaging Radiology [address] [facility] [place] [address] 03/28/2024 3:20 PM EST Office Visit [facility] [address] [facility] [place] [phone] Shanika Fitzgerald DO [address] [facility] [place] [address] Scheduled Procedures Name Priority Associated Diagnoses Date/Ti [...] 02/22/2023, 11/17, 12/31/2021, Additional history exists Hgb 08/25/2024 08/26/2023, 07/17, 07/01/2023, Additional history exists Colonoscopy 01/02/2026 01/02/2021, 07/17, [...] this encounter Medical Devices Implanted Type Area Shipyard Laborer Device Identifier Shelf Expiration Date Model / Serial / Lot Graft Hemasheild 20mm [id number] - [id number] Implanted:Qty: 1 on 01/13/2009 at OR [facility] [place]/A: Abdomen MICROVASIVE [id number] / / [id number] Clip Resolution 360 Endo 235cm - [id number] Implanted:Qty: 1 on 12/10/2022 by Lacie England MD at OR [facility] [employer] : ENDOSCOPY [id number] 07/02/2025 [id number] / / [id number] Clip Resolution 360 Endo 235cm - [id number] Implanted:Qty: 1 on 12/10/2022 by Lacie England MD at OR [facility] [employer] : ENDOSCOPY [id number] 07/02/2025 [id number] / / [id number] Stent Axios [id number] - [id number] Implanted:Qty: 1 on 12/10/2022 by Lacie England MD at OR [facility] [employer] : ENDOSCOPY [id number] 04/06/2023 [id number] / / [id number] documented as of this encounter Procedures Procedure Name Priority Date/Time Associated Diagnosis Comments DIFFERENTIAL, AUTOMATED STAT 07/29/2023 2:13 PM EDT Iron deficiency anemia due to chronic blood loss IRON SCREEN, INCLUDING TIBC STAT 07/29/2023 2:13 PM EDT Iron deficiency anemia due to chronic blood loss CBC STAT 07/29/2023 2:13 PM EDT Iron deficiency anemia due to chronic blood loss CBC STAT 07/29/2023 2:13 PM EDT Iron deficiency anemia due to chronic blood loss DIFFERENTIAL, TECHNOLOGIST REVIEW Routine 07/29/2023 2:13 PM EDT Iron deficiency anemia due to chronic blood loss FERRITIN STAT 07/29/2023 2:13 PM EDT Iron deficiency anemia due to chronic blood loss VITAMIN B12 STAT 07/29/2023 2:13 PM EDT Iron deficiency anemia due to chronic blood loss documented in this encounter Results * DIFFERENTIAL, TECHNOLOGIST REVIEW (07/29/2023 2:13 PM EDT) [facility] nRs 07/29/2023 2:54 PM EDT [facility] 56-02 Blood Venous blood specimen / Unknown Venipuncture / Unknown 07/29/2023 2:13 PM EDT 07/29/2023 2:26 PM EDT [facility] [address] [place] [address] * (ABNORMAL) DIFFERENTIAL, AUTOMATED (07/29/2023 2:13 PM EDT) [facility] WBC 8.30 4.00 - 10.80 K/uL 07/29/2023 2:54 PM EDT [facility] 56-02 Neutrophils % 67.4 40.0 - 75.0 % 07/29/2023 2:54 PM EDT [facility] 56-02 Lymphocytes % 15.3(L) 18.0 - 42.0 % 07/29/2023 2:54 PM EDT [facility] 56-02 Monocytes % 11.0 1.0 - 11.0 % 07/29/2023 2:54 PM EDT [facility] 56-02 Eosinophils % 5.7 0.0 - 6.0 % 07/29/2023 2:54 PM EDT [facility] 56-02 Basophils % 0.6 0.0 - 2.0 % 07/29/2023 2:54 PM EDT [facility] 56-02 Absolute Neutrophils 5.97 1.80 - 7.70 K/uL 07/29/2023 2:54 PM EDT [facility] 56-02 Absolute Lymphocytes 1.35 1.00 - 4.80 K/ul 07/29/2023 2:54 PM EDT [facility] 56-02 Absolute Monocytes 0.97 0.00 - 1.10 K/uL 07/29/2023 2:54 PM EDT [facility] 56-02 Absolute Eosinophils 0.50 0.00 - 0.70 K/uL 07/29/2023 2:54 PM EDT [facility] 56 Absolute Basophils 0.05 0.00 - 0.20 K/uL 07/29/2023 2:54 PM EDT [facility] 56 Blood Venous blood specimen / Unknown Venipuncture / Unknown 07/29/2023 2:13 PM EDT 07/29/2023 2:26 PM EDT Sherirommel Moorekevin [facility] [address] [place] [address] * (ABNORMAL) CBC (07/29/2023 2:13 PM EDT) WBC 8.30 4.00 - 10.80 K/uL 07/29/2023 2:54 PM EDT [facility] 56 RBC 3.78 4.50 - 5.25 M/uL 07/29/2023 2:54 PM EDT [facility] 56 HGB 12.4(L) 14.0 - 16.8 g/dL 07/29/2023 2:54 PM EDT [facility] 56 HCT 39.2(L) 40.0 - 48.4 % 07/29/2023 2:54 PM EDT [facility] 56 MCV 103.7 82.0 - 99.5 fL 07/29/2023 2:54 PM EDT [facility] 56 MCH 32.8 27.0 - 34.0 pg 07/29/2023 2:54 PM EDT [facility] 56 MCHC 31.6 32.0 - 36.0 g/dL 07/29/2023 2:54 PM EDT [facility] 56 RDW 15.9 11.5 - 15.5 % 07/29/2023 2:54 PM EDT [facility] 56 PLT 07/29/2023 2:54 PM EDT [facility] 56 Comment: Results rechecked. Decreased platelets seen on slide. Cannot quantitate due to platelet clumping. MPV 11.7 6.6 - 11.1 fL 07/29/2023 2:54 PM EDT [facility] 56-02 Blood Venous blood specimen / Unknown Venipuncture / Unknown 07/29/2023 2:13 PM EDT 07/29/2023 2:26 PM EDT Sheri [facility] BLOOD [facility] 56-[address] [place] [address] * IRON SCREEN, INCLUDING TIBC (07/29/2023 2:13 PM EDT) Iron 57 45 - 176 ug/dL 07/29/2023 11:51 PM EDT [facility] Iron Binding Capacity 274 250 - 425 ug/dL 07/29/2023 11:51 PM EDT [facility] Transferrin Saturation Percent 21 15 - 55 % 07/29/2023 11:51 PM EDT [facility] Blood Venous blood specimen / Unknown Venipuncture / Unknown 07/29/2023 2:13 PM EDT 07/29/2023 2:26 PM EDT Sheri [facility] BLOOD [facility] [address] [place] [address] * (ABNORMAL) FERRITIN (07/29/2023 2:13 PM EDT) Ferritin 463(H) 30 - 400 ng/mL 07/30/2023 12:27 AM EDT [facility] Blood Venous blood specimen / Unknown Venipuncture / Unknown 07/29/2023 2:13 PM EDT 07/29/2023 2:26 PM EDT Sheri [facility] BLOOD ORDER [facility] [address] [place] [address] * VITAMIN B12 (07/29/2023 2:13 PM EDT) Vitamin B12 343 232 - 1,245 pg/mL 07/30/2023 12:27 AM EDT [facility] Blood Venous blood specimen / Unknown Venipuncture / Unknown 07/29/2023 2:13 PM EDT 07/29/2023 2:26 PM EDT Michael Snyder MD LAB BLOOD ORDERABLES [facility] [address] [place] [address] documented in this encounter Visit Diagnoses Diagnosis [...] mg, IV Piggyback, ONCE, 1 dose, On Tue07/29/23 at 1545, Administer over 90 Minutes Start Infusion 07/29/2023 2:24 PM EDT 300 mg 166.67 mL/hr NSS infusion 500 mL, Intravenous, at 50 mL/hr, CONTINUOUS, Starting on Tue07/29/23 at 1515, Until Tue07/29/23 at 1957 Start Infusion 07/29/2023 2:23 PM EDT 500 mL 50 mL/hr documented in this encounter Advance Directives Documents on File Type Date Recorded Patient Documentation Lead Expl anation Power of Electronic Data Processing Auditor 07/30/2022 POWER OF A TTORNEY Latest Code [...] and were consensually agreed upon. Care Teams Customer Operations Specialist Relationship Specialty Start Date End Date Jairo Kingston MD [address] [place] [address] PCP - General 12/21/05 documented as of this encounter
--- OUTSIDE RECORDS SUMMARY | 2023-09-03 23:18 | External Medical Summary ---
Author Name Unknown Address Unknown Organization [id number][place] [place] [address] [address] Laboratory Report Ordering Provider Test Date Status LOLLY ALEGRIA 08/26/2023 14:02:51 Final Observation Date Value Abnormality Reference (Units ) Status Iron 08/26/2023 14:02:51 42 Below low normal 45-176 (ug/dL) Final Iron-binding capacity 08/26/2023 14:02:51 272 250-425 (ug/dL) Final Transferrin Sat % 08/26/2023 14:02:51 15 15-55 (%) Final Performing Location [facility] [place] [address] [address]
--- OUTSIDE RECORDS SUMMARY | 2023-09-03 23:18 | External Medical Summary ---
Author Name Unknown Address Unknown Organization [id number] [place] [address] [address] Laboratory Report Ordering Provider Test Date Status LOLLY ALEGRIA 08/26/2023 14:02:51 Final Observation Date Value Abnormality Reference (Units ) Status Ferritin 08/26/2023 14:02:51 258 30-400 (ng /mL) Final Performing Location [facility] - [address] [place] [address]
--- OUTSIDE RECORDS SUMMARY | 2023-09-03 23:18 | External Medical Summary ---
Author Name Unknown Address Unknown Organization [id number]:[facility] [place] [address] Laboratory Report Ordering Provider Test Date Status LOLLY ALEGRIA 08/26/2023 14:02:51 Final Observation Date Value Abnormality Reference (Units ) Status WBC, Total 08/26/2023 14:02:51 9.23 4.00-10.8 0 (K/uL) Final RBC 08/26/2023 14:02:51 3.32 4.50-5.25 (M/uL) Final Hemoglobin 08/26/2023 14:02:51 11.5 Below low normal 14 .0-16.8 (g/dL) Final HCT 08/26/2023 14:02:51 34.9 Below low normal 40. 0-48.4 (%) Final MCV 08/26/2023 14:02:51 105.1 82.0-99.5 (fL) Final MCH 08/26/2023 14:02:51 34.6 27.0-34.0 (pg) Final MCHC 08/26/2023 14:02:51 33.0 32.0-36.0 (g/dL) Final RDW 08/26/2023 14:02:51 15.7 11.5-15.5 (%) Final Platelets 08/26/2023 14:02:51 189 140-400 (K /uL) Final MPV 08/26/2023 14:02:51 9.7 6.6-11.1 ( fL) Final Performing Location [facility] [place] [address]
--- OUTSIDE RECORDS SUMMARY | 2023-09-03 23:18 | External Medical Summary | Summary of Care ---
Author Name Unknown Organization [facility] Address [address] [place] [address] Phone [phone] Care Team Providers Care Concrete Bucket Unloader Name Role Phone Jairo Kingston MD Primary Care Provider [phone]- [phone] Reason for Visit * Reason Comments IV Therapy Venofer Encounter Details Date Type Department Care Team (Latest Contact Info) Description 08/26/2023 2:00 PM EDT Hem/Onc Treatment Hematology/Oncology Treatment, [address] [address] Park, Chair 6 Hem Onc [address] [address] Iron deficiency anemia due to chronic blood loss* Allergies Active Allergy Reactions Criticality Noted Date Comments Pavan Inhibitors Other (Please comment) 0 Hyperkalemia documented as of this encounter (statuses as of 08/26/2023) Medications Medication Sig Dispensed Refills Start Date End Date Status oxygen GAS Use 3 L/min(Oxygen) as directed at bedtime. Use 2-3 l/min continuously to keep pulse ox above 90% 0 Active [facility] D3 50 MCG (1999) Oral Capsule (Cholecalciferol)Ind ications:Vitamin D deficiency TAKE 1 CAPSULE BY MOUTH EVERY DAY 90 Cap 1 02/12/2020 Active CPAP every night at bedtime. 0 [...] at noon. 90 Tablet 3 12/14/2022 Active Additional Information Patient not taking.Reported on 04/26/2023 Albuterol Sulfate HFA 108 (90 Base) MCG/ACT Inhalation Aerosol Solution Inhale 2 Puffs by mouth every 4 hours as needed for Wheezing. 54 g 6 01/06/2023 Active Azelastine HCl 0.1 % Nasal Solution (Astelin) Administer 1 [place] into nostril in the morning and 1 [place] before bedtime. 30 mL 1 01/11/2023 Active Furosemide 20 MG Oral Tablet (Lasix) TAKE 1 TABLET BY MOUTH twice DAILY 90 Tablet 3 01/18/2023 Active Octreotide Acetate 10 MG Intramuscular Kit (SandoSTATIN LAR [place]) Inject 10 mg into a large muscle every month for 6 doses. 6 Kit 0 01/24/2023 Active Additional Information Patient not taking.Reported on 04/26/2023 Ezetimibe 10 MG Oral Tablet (Zetia)Indications:D yslipidemia, goal LDL below 70 TAKE ONE TABLET BY MOUTH EVERY MORNING 90 Tablet 3 02/04/2023 4 Active Docusate Sodium 100 MG Oral Capsule (Colace) Take 1 Capsule by mouth 2 times a day as needed for Constipation. 180 Capsule 3 04/20/2023 Active Pantoprazole Sodium 40 MG Oral Tablet Delayed Release (Protonix) Take 1 Tablet by mouth in the morning and 1 Tablet before bedtime. 180 Tablet 3 04/20/2023 Active Allopurinol 300 MG Oral Tablet (Zyloprim)Indication s:Gout TAKE ONE-HALF TABLET BY MOUTH EVERY DAY 45 Tablet 2 06/01/2023 5 Active Apixaban 2.5 MG Oral Tablet (Eliquis)Indications :Recurrent cerebrovascular accidents (CVAs) (HCC) Take 1 Tablet by mouth in the morning and 1 Tablet before bedtime. 180 Tablet 1 07/26/2023 Active Ipratropium-Albutero l 0.5-2.5 (3) MG/3ML Inhalation Solution (Duoneb) Inhale 3 mL by mouth every 6 hours as needed (sob). 360 mL 5 07/27/2023 Active Fluticasone Propionate 50 MCG/ACT Nasal Suspension (Flonase) INSTILL 2 SPRAYS INTO EACH NOSTRIL EVERY DAY 48 g 3 07/29/2023 5 Active Trelegy Ellipta 100-62.5-25 MCG/ACT Aerosol Powder Breath Activated (Fluticasone-Umeclid inium-Vilanterol) INHALE ONE PUFF BY MOUTH EVERY DAY 180 Each 1 08/02/2023 Active Metoprolol Tartrate 25 MG Oral Tablet (Lopressor) Take 1 Tablet by mouth in the morning and 1 Tablet before bedtime. 60 Tablet 0 08/24/2023 Active Potassium Chloride Marla ER 10 MEQ Oral Tablet Extended Release Take 1 Tablet by mouth once a day on Tuesday, Tuesday, and Tuesday only. 12 Tablet 0 08/24/2023 Active Metoprolol Tartrate 25 MG Oral Tablet (Lopressor) Take 1 Tablet by mouth in the morning and 1 Tablet before bedtime. 180 Tablet 3 08/24/2023 Active Potassium Chloride ER 10 MEQ Oral Capsule Extended Release Take 1 Capsule by mouth in the morning On Tuesday, Tuesday and Tuesday only 45 Capsule 3 08/24/2023 Active Potassium Chloride Marla ER 10 MEQ Oral Tablet Extended ReleaseIndications:H TN, goal below 140/90 Take 1 Tablet by mouth once a day on Tuesday, Tuesday, and Tuesday only. 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 heaterman No new attacks GINNY on CPAP 11/11/2022 [...] as of this encounter (statuses as of 08/26/2023) Resolved Problems Problem Noted Date Diagnosed Date [...] as of this encounter (statuses as of 08/26/2023) Immunizations Name Administration Dates Next Due COVID-19 [...] Former Cigarettes 1 35 1 974 - 2009 Cigars Smokeless Tobacco: Never Tobacco Cessation:Counseling [...] Sign Reading Time Taken Comments Blood Pressure 138/79 08/26/2023 2:19 PM EDT Pulse 85 08/26/2023 2:19 PM EDT Temperature - - Respiratory Rate 16 08/26/2023 2:19 PM EDT Oxygen Saturation 85% 08/26/2023 2:19 PM EDT On home oxygen switched to office oxygen Inhaled Oxygen Concentration - - Weight - - Height - - Body Mass Index - - documented in this encounter Nursing Notes * Lisa Vides LPN - 08/26/2023 3:54 PM EDT Patient completed IV therapy Venofer. IV access was disconnected; site was cleaned and bandaged. Patient will return on 09/22. Patient was discharged in stable condition. * Lisa Vides LPN - 08/26/2023 2:19 PM EDT Patient arrived Chair 7 for IV therapy Venofer. Vital signs are stable. [facility] IV line flushed with saline with ease, 10ml of blood aspirated and discarded, labwork up drawn through IV line; IV fluids then connected and infusing. Call riggins within reach. documented in this encounter Plan of Treatment Upcoming Encounters Date Type Department Care Team (Late st Contact Info) Description 09/13/2023 10:00 AM EDT Home Visit [facility], [facility] [address] [place] [address] Jenifer Linder, RN [address] [place] [address] 09/23/2023 2:00 PM EDT Hem/Onc Treatment Hematology/Oncology Treatment, [place] [address] [place] [phone] Hannah, Chair 8 Hem Onc [address] [facility] [address] 10/10/2023 9:00 AM EDT Office Visit [facility] [address] [place] [phone] Jairo Kingston MD [address] [place] [address] 11/30/2023 8:30 AM EDT Procedure Only Endoscopy, [facility] [address] [place] [address] Lacie England MD [address] [place] [address] 12/13/2023 3:00 PM EDT Office Visit Nephrology, [facility] [address] [place] [address] Reggie Azevedo MD [address] [place] [address] 01/19/2024 4:45 PM EDT Imaging Radiology [facility] [address] [place] [address] 03/28/2024 3:20 PM EST [facility] [address] [place] [phone] Shanika Fitzgerald DO [address] [place] [address] Pending Results Name Type Priority Associated Diagnoses Date /Time FOLIC ACID Lab STAT Iron deficiency anemia due to chronic blood loss 08/26/2023 2:02 PM EDT FERRITIN Lab STAT Iron deficiency anemia due to chronic blood loss 08/26/2023 2:02 PM EDT IRON SCREEN, INCLUDING TIBC Lab STAT Iron deficiency anemia due to chronic blood loss 08/26/2023 2:02 PM EDT Scheduled Procedures Name Priority Associated Diagnoses Date/Ti [...] this encounter Medical Devices Implanted Type Area 5Th Grade Teacher Device Identifier Shelf Expiration Date Model / Serial / Lot Graft Hemasheild 20mm [id number] - [id number] Implanted:Qty: 1 on 01/13/2009 [place] [facility] [place]A: Abdomen MICROVASIVE [id number] / / [id number] Clip Resolution 360 Endo 235cm - [id number] Implanted:Qty: 1 on 12/10/2022 by Lacie England MD at OR [facility] : ENDOSCOPY [id number] 07/02/2025 [id number] / / [id number] Clip Resolution 360 Endo 235cm - [id number] Implanted:Qty: 1 on 12/10/2022 by Lacie England MD at OR [facility] : ENDOSCOPY [id number] 07/02/2025 [id number] / / [id number] Stent Axios [id number] - [id number] Implanted:Qty: 1 on 12/10/2022 by Lacie England MD at OR [facility] : ENDOSCOPY [id number] 04/06/2023 [id number] / / [id number] documented as of this encounter Procedures Procedure Name Priority Date/Time Associated Diagnosis Comments DIFFERENTIAL, AUTOMATED STAT 08/26/2023 2:02 PM EDT Iron deficiency anemia due to chronic blood loss CBC STAT 08/26/2023 2:02 PM EDT Iron deficiency anemia due to chronic blood loss CBC STAT 08/26/2023 2:02 PM EDT Iron deficiency anemia due to chronic blood loss documented in this encounter Results * (ABNORMAL) DIFFERENTIAL, AUTOMATED (08/26/2023 2:02 PM EDT) [facility] WBC 9.23 4.00 - 10.80 K/uL 08/26/2023 2:24 PM EDT [facility] 56-02 Neutrophils % 74.3 40.0 - 75.0 % 08/26/2023 2:24 PM EDT [facility] 56-02 Lymphocytes % 12.1(L) 18.0 - 42.0 % 08/26/2023 2:24 PM EDT [facility] 56-02 Monocytes % 8.0 1.0 - 11.0 % 08/26/2023 2:24 PM EDT [facility] 56-02 Eosinophils % 5.2 0.0 - 6.0 % 08/26/2023 2:24 PM EDT [facility] 56-02 Basophils % 0.4 0.0 - 2.0 % 08/26/2023 2:24 PM EDT [facility] 56-02 Absolute Neutrophils 6.85 1.80 - 7.70 K/uL 08/26/2023 2:24 PM EDT [facility] 56-02 Absolute Lymphocytes 1.12 1.00 - 4.80 K/ul 08/26/2023 2:24 PM EDT [facility] 56-02 Absolute Monocytes 0.74 0.00 - 1.10 K/uL 08/26/2023 2:24 PM EDT [facility] 56-02 Absolute Eosinophils 0.48 0.00 - 0.70 K/uL 08/26/2023 2:24 PM EDT [facility] 56-02 Absolute Basophils 0.04 0.00 - 0.20 K/uL 08/26/2023 2:24 PM EDT [facility] 56-02 Blood Venous blood specimen / Unknown Venipuncture / Unknown 08/26/2023 2:02 PM EDT 08/26/2023 2:21 PM EDT [facility] BLOOD ORDER [facility] 56- [address] [place] [address] * (ABNORMAL) CBC (08/26/2023 2:02 PM EDT) WBC 9.23 4.00 - 10.80 K/uL 08/26/2023 2:[address]T [address] RBC 3.32 4.50 - 5.25 M/uL 08/26/2023 2:24 PM EDT [address] HGB 11.5(L) 14.0 - 16.8 g/dL 08/26/2023 2:24 PM EDT [facility] 56 HCT 34.9(L) 40.0 - 48.4 % 08/26/2023 2:24 PM EDT [facility] 56 MCV 105.1 82.0 - 99.5 fL 08/26/2023 2:24 PM EDT [facility] 56 MCH 34.6 27.0 - 34.0 pg 08/26/2023 2:24 PM EDT [facility] 56 MCHC 33.0 32.0 - 36.0 g/dL 08/26/2023 2:24 PM EDT [facility] 56 RDW 15.7 11.5 - 15.5 % 08/26/2023 2:24 PM EDT [facility] 56 PLT 189 140 - 400 K/uL 08/26/2023 2:24 PM EDT [facility] 56 MPV 9.7 6.6 - 11.1 fL 08/26/2023 2:24 PM EDT [facility] 56 Blood Venous blood specimen / Unknown Venipuncture / Unknown 08/26/2023 2:02 PM EDT 08/26/2023 2:21 PM EDT [facility] BLOOD ORDER [facility] 56-76 [address] [place] [address] documented in this encounter Visit Diagnoses Diagnosis [...] ONCE PRN Other, Hypersensitivity Reaction, Starting on Tue08/26/23 at 1416, Until 08/27/23 at 1415, For 24 hours EPINEPHrine 1 MG/ML inj 0.3 mg 0.3 mg, Intramuscular, ONCE PRN Other, Hypersensitivity Reaction or Anaphylaxis, Starting on Tue08/26/23 at 1416, Until 08/27/23 at 1415, For 24 hours hEParin 100 UNIT/ML Lock Flush inj 500 Units 500 Units (5 mL), IV Lock, PRN Other, IV Flush, Starting on Tue08/26/23 at 1416, Until 08/27/23 at 1415, For 24 hours, Do not flush if lock, PICC, or central line not in place; IV infusing or unable to flush. Hydrocortisone Sod Suc (PF) (Solu-Cortef) inj 100 mg 100 mg, IV Push, ONCE PRN Other, Hypersensitivity Reaction, Starting on Tue08/26/23 at 1416, Until 08/27/23 at 1415, For 24 hours NSS infusion 500 mL, Intravenous, at 50 mL/hr, CONTINUOUS, Starting on Tue08/26/23 at 1530, Until 08/27/23 at 0129 Start Infusion 08/26/2023 2:16 PM EDT 500 mL 50 mL/hr oxygen GAS Inhalation, OXYGEN, First dose on Tue08/26/23 at 1600, Until Discontinued, Device/Managed by: Low [...] Push, PRN Other, IV Flush, Starting on Tue08/26/23 at 1416, Until 08/27/23 at 1415, For 24 hours, Do not flush if lock, PICC, or central line not in place; IV infusing or unable to flush. Inactive Administered Medications - up to 3 most recent administrations Medication Order MAR Action Action Date Dose Rate Site Iron Sucrose (Venofer) 300 mg in NSS 250 mL ivpb 300 mg, IV Piggyback, ONCE, 1 dose, On Tue08/26/23 at 1600, Administer over 90 Minutes Start Infusion 08/26/2023 2:16 PM EDT 300 mg 193.33 mL/hr documented in this encounter Advance Directives Documents on File Type Date Recorded Patient Train Gate Attendant Expl anation Power of [employer] Office Instructor 07/30/2022 POWER OF A TTORNEY Latest [...] and were consensually agreed upon. Care Teams Concrete Bucket Unloader Relationship Specialty Start Date End Date Jairo Kingston MD [address] [place] [address] PCP - General 12/21/05 documented as of this encounter
--- OUTSIDE RECORDS SUMMARY | 2023-09-03 23:18 | External Medical Summary | Summary of Care ---
Author Name Unknown Organization [facility] Address [address] [place] [address] Phone [phone] Care Team Providers Care Copyist Name Role Phone Jairo Kingston MD Primary Care Provider [phone]- [phone] Reason for Visit * Reason Onset Date Comments Medication Refill 08/24/2023 Encounter Details Date Type Department Care Team (Late st Contact Info) Description 08/24/2023 Refill Cardiology, [facility] [address] [place] [address] FarhatMine jhaveri CRNP [address] [place] [address] HTN, goal below 140/90* Allergies Active Allergy Reactions Criticality Noted Date Comments Pavan Inhibitors Other (Please comment) 0 Hyperkalemia documented as of this encounter (statuses as of 08/25/2023) Medications Medication Sig Dispensed Refills Start Date [...] 0.1 % Nasal Solution (Astelin) Administer 1 [place] into nostril in the morning and 1 [place] before bedtime. 30 mL 1 3 Active [...] EACH NOSTRIL EVERY DAY 48 g 3 4 07/29/19 25 Active Trelegy Ellipta 100-62.5-25 MCG/ACT Aerosol Powder Breath Activated (Fluticasone-Umeclid inium-Vilanterol) INHALE ONE PUFF BY MOUTH EVERY DAY 180 Each 1 4 Active Potassium Chloride Marla ER 10 MEQ Oral Tablet Extended ReleaseIndications:H TN, goal below 140/90 Take 1 Tablet by mouth once a day on Tuesday, Tuesday, and Tuesday only. 40 Tablet 3 4 Active Potassium Chloride Marla ER 10 MEQ Oral Tablet Extended Release Take 1 Tablet by mouth once a day on Tuesday, Tuesday, and Tuesday only. 45 Tablet 3 3 08/24/19 24 Discontinu ed(Refill) Metoprolol Tartrate 25 MG Oral Tablet (Lopressor) Take 1 Tablet by mouth in the morning and 1 Tablet before bedtime. 100 Tablet 3 3 08/24/19 24 Discontinu ed(Refill) documented as of this encounter (statuses as of 08/25/2023) Active Problems Problem Noted Date Diagnosed Date [...] disease, stage IV Last Assessment & Plan: Norcristina mcintyre History of supraventricular tachycardia 11/12/19 Idiopathic chronic [...] as of this encounter (statuses as of 08/25/2023) Resolved Problems Problem Noted Date Diagnosed Date [...] as of this encounter (statuses as of 08/25/2023) Immunizations Name Administration Dates Next Due COVID-19 [...] 1 35 1 974 - 2009 Cigars 04/18/1973 - 0 04/18/2008 Smokeless Tobacco: [...] encounter Miscellaneous Notes * Telephone Encounter - Ricco Maldonado PA-C - 08/25/2023 1:38 PM EDTSigned Prescriptions: Disp Refills Potassium Chloride Marla ER 10 MEQ Oral Tab*40 Tab*3 Sig: Take 1Tablet by mouth once a day on Tuesday, Tuesday, and Tuesday only.Authorizing Provider: RICCO MALDONADO * Addendum Note - Ricco Maldonado PA-C - 08/25/2023 1:38 PM EDTAddended by: RICCO MALDONADO on: 08/25/2023 01:38 PM Modules accepted: Orders * Telephone Encounter - Airam Miguel CMA - 08/25/2023 9:46 AM EDTPending Prescriptions: Disp Refills Potassium Chloride Marla ER 10 MEQ Oral Tab*40 Tab*3 Sig: Take 1 Tablet by mouth once a day on Tuesday, Tuesday, and Tuesday only. * Addendum Note - Airam Miguel CMA - 08/25/2023 9:46 AM EDTAddended by: AIRAM MIGUEL on: 08/25/2023 09:46 AM Modules accepted: Orders * Telephone Encounter - Nyla Abraham [facility] - 08/24/2023 8:52 AM EDT Patient is up to date for office visits. Pt is out of meds. Pending Prescriptions: Disp Refills Potassium Chloride Marla ER 10 MEQ Oral Ta*45 Tab*3 Sig: Take 1 Tablet by mouth once a day on Tuesday, Tuesday, and Tuesday only. Last Visit: 06/16/2023 (in office), 07/19/2019 (telemedicine) Next Visit: Visit date not found If no future appointments scheduled, and last appointment is greater than a year ago, please schedule patient for a follow-up appointment Last date the medication was ordered: 12/03/22 Pharmacy: [id number] [address] [facility] Is this request for a controlled substance?No it is not controlled. Urine Drug Screen:No results found. However, due to the size of the patient record, not all encounters were searched. Please check Results Review for a complete set of results. Patient Phone Numbers Labs: Lab Results Component Value Date/Time CREAT 2.6 (H) 05/20/2023 09:26 AM CREAT 1.61 (A) 06/10/2020 12:00 AM CREAT 2.2 (H) 02/08/2020 09:48 AM POTASSIUM 4.5 05/20/2023 09:26 AM POTASSIUM 3.2 (A) 06/10/2020 12:00 AM POTASSIUM 4.7 02/08/2020 09:48 AM POTASSIUM 4.5 01/17/1996 08:30 AM TSH 2.93 09/16/2020 11:29 AM TSH 2.41 02/08/2020 09:48 AM LDLCALC 58 03/18/2022 01:04 PM LDLCALC 78 02/06/2019 10:11 AM LDLCALC 147. (H) 01/17/1996 08:30 AM LDLDIRECT 77 04/30/2019 10:18 AM ALT 29 05/20/2023 09:26 AM ALT 17 02/08/2020 09:48 AM * Telephone Encounter - Arlene Hansen paint tinter - 08/24/2023 8:48 AM EDT Pt is out of Potassium Chloride Marla ER 10 MEQ Oral Tablet Extended Release His daughter is asking for an emergency refill Spoke to specialty line and they will send new refill high priority Thank you for your assistance Arlene Hansen Harness Cleaner [employer] [facility] ([facility] (Formerly Telepharm[facility]) 08/24/2023,8:52 AM documented in this encounter Plan of Treatment Upcoming Encounters Date Type Department Care Team (Late st Contact Info) Description 08/26/2023 2:00 PM EDT Hem/Onc Treatment Hematology/Oncology Treatment, [address] [place] [phone] Hannah, Chair 6 Hem [address] [address] 09/13/2023 10:00 AM EDT Home Visit [facility], [facility] [address] [place] [address] Jenifer Linder RN [address] [place] [address] 09/23/2023 2:00 PM EDT Hem/Onc Treatment Hematology/[address], [address] [phone] Hannah, Chair 8 Hem Onc [facility] [address] [facility] [place] [address] 10/10/2023 9:00 AM EDT Office Visit [facility] [address] [facility], [place] [phone] Jairo Kingston MD [address] [place] [facility] [place] [address] 11/30/2023 8:30 AM EDT Procedure Only Endoscopy, [facility] [address] [place] [address] Lacie England MD 132 [facility] [place] [address] 12/13/2023 3:00 PM EDT [facility] [address] [facility] [place] [address] Reggie Azevedo MD [address] [place] [address] 01/19/2024 4:45 PM EDT Imaging Radiology [address] [facility] [place] [address] 03/28/2024 3:20 PM EST Office Visit [facility] [address] [facility] [place] [phone] Shanika Fitzgerald DO 132 [facility] [place] [address] Scheduled Procedures Name Priority Associated Diagnoses Date/Ti [...] this encounter Medical Devices Implanted Type Area Wire Weaver Cloth Device Identifier Shelf Expiration Date Model / Serial / Lot Graft Hemasheild 20mm [id number] - [id number] Implanted:Qty: 1 on 01/13/2009 at [place] [facility] [place] N/A: Abdomen MICROVASIVE [id number] / / [id number] Clip Resolution 360 Endo 235cm - [id number] Implanted:Qty: 1 on 12/10/2022 by Lacie England MD at OR [facility] ENDOSCOPY [id number] 07/02/2025 [id number] / / [id number] Clip Resolution 360 Endo 235cm - [id number] Implanted:Qty: 1 on 12/10/2022 by Lacie England MD at OR [facility] ENDOSCOPY [id number] 07/02/2025 [id number] / / [id number] Stent Axios [id number] - [id number] Implanted:Qty: 1 on 12/10/2022 by Lacie England MD at OR [facility] ENDOSCOPY [id number] 04/06/2023 [id number] / / [id number] documented as of this encounter Visit Diagnoses Diagnosis HTN, goal below 140/90- Primary Unspecified essential hypertension documented in this encounter Advance Directives Documents on File Type Date Recorded Patient Hot Shot Expl anation Power of Campaign Director 07/30/2022 POWER OF A TTORNEY Latest Code [...] and were consensually agreed upon. Care Teams Copyist Relationship Specialty Start Date End Date Jairo Kingston MD [address] [place], [place] [phone] PCP - General 12/21/05 documented as of this encounter
--- OUTSIDE RECORDS SUMMARY | 2023-09-03 23:18 | External Medical Summary | Summary of Care ---
Author Name Unknown Organization [facility] Address [address] [place] [address] Phone [phone] Care Team Providers Care Condenser Cleaner Name Role Phone Jairo Kingston MD Primary Care Provider +1- [phone] Reason for Visit * Reason Onset Date Comments Medication Refill 08/24/2023 Encounter Details Date Type Department Care Team (Late st Contact Info) Description 08/24/2023 Refill Cardiology, [facility] [address] [place] [address] Mine Dougherty CRNP [address] [facility] [address] Allergies Active Allergy Reactions Criticality Noted Date Comments Pavan Inhibitors Other (Please comment) 0 Hyperkalemia documented as of this encounter (statuses as of 08/24/2023) Medications Medication Sig Dispensed Refills Start Date End Date Status oxygen GAS Use 3 L/min(Oxygen) as directed at bedtime. Use 2-3 l/min continuously to keep pulse ox above 90% 0 Active [facility] D3 50 MCG (1999) Oral Capsule (Cholecalciferol)Ind ications:Vitamin D deficiency TAKE 1 CAPSULE BY MOUTH EVERY DAY 90 Cap 1 02/12/2020 Active Potassium Chloride Marla ER 10 MEQ [...] 0.1 % Nasal Solution (Astelin) Administer 1 [place] into nostril in the morning and 1 [place] before bedtime. 30 mL 1 01/11/2023 Active [...] before bedtime. 100 Tablet 3 02/14/2023 Active Docusate Sodium 100 MG Oral Capsule [...] NOSTRIL EVERY DAY 48 g 3 07/29/2023 Active Trelegy Ellipta 100-62.5-25 MCG/ACT Aerosol Powder Breath Activated (Fluticasone-Umeclid inium-Vilanterol) INHALE ONE PUFF BY MOUTH EVERY DAY 180 Each 1 08/02/2023 Active documented as of this encounter (statuses as of 08/24/2023) Active Problems Problem Noted Date Diagnosed Date [...] 0 11/11/2022 Last Assessment & Plan: Allopurinol mcfp No new attacks GINNY on CPAP 11/11/2022 [...] as of this encounter (statuses as of 08/24/2023) Resolved Problems Problem Noted Date Diagnosed Date [...] as of this encounter (statuses as of 08/24/2023) Immunizations Name Administration Dates Next Due COVID-19 [...] encounter Miscellaneous Notes * Telephone Encounter - Nyla Abraham, [facility] - [...] the medication was ordered: 12/03/22 Pharmacy: [id number] [id number] [facility] Is this request for a controlled [...] AM * Telephone Encounter - Arlene Hansen appointment clerk - 08/24/2023 8:48 AM EDT Pt is out of Potassium Chloride Marla ER 10 MEQ Oral Tablet Extended Release His daughter is asking for an emergency refill Spoke to specialty line and they will send new refill high priority Thank you for your assistance Arlene Hansen Inspector Outside Production II Centralized Clinical Pharmacy Services (CCPS) (Formerly Telepharmacy) 08/24/2023,8:52 AM documented in this encounter Plan of Treatment Upcoming Encounters Date Type Department Care Team (Late st Contact Info) Description 08/26/2023 2:00 PM EDT Hem/Onc Treatment Hematology/Oncology Treatment, [address] [place] [phone] Hannah, Chair 6 Hem Onc [facility] [address] [place] [address] [place] [address] 09/13/2023 10:00 AM EDT Home Visit [facility] 132 [place] [address] Jenifer Linder, RN 132 [place] [address] 09/23/2023 2:00 PM EDT Hem/Onc Treatment Hematology/[address]cology Treatment, [address] [phone] Hannah, Chair 8 Hem Onc [facility] [address] [place] [address] [place] [address] 10/10/2023 9:00 AM EDT [facility] [address] [facility] [phone] Jairo Kingston MD [address] [facility] [address] 11/30/2023 8:30 AM EDT Procedure Only Endoscopy, [facility] [address] [place] [address] Lacie England MD [address] [place] [address] 12/13/2023 3:00 PM EDT Office Visit Nephrology, [facility] [address] [place] [address] Reggie Azevedo MD [address] [place] [address] 01/19/2024 4:45 PM EDT Imaging Radiology [address] 132 [facility] [place] [address] 03/28/2024 3:20 PM EST Office Visit [facility] 132 [facility] [place] [phone] Shanika Fitzgerald DO [address] [place] [address] Scheduled Procedures Name Priority Associated Diagnoses Date/Ti [...] this encounter Medical Devices Implanted Type Area Dairy Processing Equipment Operator Device Identifier Shelf Expiration Date Model / Serial / Lot Graft Hemasheild 20mm [id number] - [id number] Implanted:Qty: 1 on 01/13/2009 at [place] [facility] [place]/A: Abdomen MICROVASIVE [id number] / / [id number] Clip Resolution 360 Endo 235cm - [id number] Implanted:Qty: 1 on 12/10/2022 by Lacie England MD at OR [facility] [employer] : ENDOSCOPY [id number] 07/02/2025 [id number] / / [id number] Clip Resolution 360 Endo 235cm - [id number] Implanted:Qty: 1 on 12/10/2022 by Lacie England MD at OR [facility] [employer] : ENDOSCOPY [id number] 07/02/2025 [id number] / / [id number] Stent Axios [id number] - [id number] Implanted:Qty: 1 on 12/10/2022 by Lacie England MD at OR [facility] [employer] : ENDOSCOPY [id number] 04/06/2023 [id number] / / [id number] documented as of this encounter Advance Directives Documents on File Type Date Recorded Patient Terra Cotta Roofer Expl anation Power of Senior Office Support Assistant Sosa 07/30/2022 POWER OF A TTORNEY Latest Code [...] and were consensually agreed upon. Care Teams Condenser Cleaner Relationship Specialty Start Date End Date Jairo Kingston MD [address] [place] [address] PCP - General 12/21/05 documented as of this encounter
--- OUTSIDE RECORDS SUMMARY | 2023-09-03 23:18 | External Medical Summary | Summary of Care ---
Author Name Unknown Organization [facility] Address [address] [place] [address] Phone [phone] Care Team Providers Care Splunk Developer Name Role Phone Jairo Kingston MD Primary Care Provider +1- [phone] Encounter Details Date Type Department Care Team (Late st Contact Info) Description 08/22/2023 Telephone Vascular Surg [facility] [address] [place] [address] Altagracia Hines PA-C [address] [place] [address] Allergies Active Allergy Reactions Criticality Noted Date Comments Pavan Inhibitors Other (Please comment) 0 Hyperkalemia documented as of this encounter (statuses as of 08/22/2023) Medications Medication Sig Dispensed Refills Start Date [...] 0.1 % Nasal Solution (Astelin) Administer 1 [place] into nostril in the morning and 1 [place] before bedtime. 30 mL 1 01/11/2023 [...] as of this encounter (statuses as of 08/22/2023) Active Problems Problem Noted Date Diagnosed Date [...] 0 11/11/2022 Last Assessment & Plan: Allopurinol shelter No new attacks GINNY on CPAP 11/11/2022 [...] as of this encounter (statuses as of 08/22/2023) Resolved Problems Problem Noted Date Diagnosed Date [...] as of this encounter (statuses as of 08/22/2023) Immunizations Name Administration Dates Next Due COVID-19 [...] encounter Miscellaneous Notes * Telephone Encounter - Altagracia Hines PA-C - 08/22/2023 3:30 PM EDT Made PCP aware of incidental findings on CTA documented in this encounter Plan of Treatment Upcoming Encounters Date Type Department Care Team (Late st Contact Info) Description 08/26/2023 2:00 PM EDT Hem/Onc Treatment Hematology/Oncology Treatment, [address] [place] [phone] Park, Chair 6 Hem Onc [address] [address] 09/13/2023 10:00 AM EDT Home Visit [facility] [address] [place] [address] Jenifer Linder RN [address] [place] [address] 09/23/2023 2:00 PM EDT Hem/Onc Treatment Hematology/Oncology Treatment, [address] [place] [phone] Hannah, Chair 8 Hem Onc [address] [address] 10/10/2023 9:00 AM EDT Office Visit [facility] [address] [place] [facility] [place] [phone] Jairo Kingston MD [address] [place] [facility] [place] [address] 11/30/2023 8:30 AM EDT Procedure Only Endoscopy, [facility] [address] [place] [address] Lacie England MD [address] [place] [address] 12/13/2023 3:00 PM EDT Office Visit Nephrology, Yuliet Young [address] [place] [address] Reggie Azevedo MD [address] [place] [address] 01/19/2024 4:45 PM EDT Imaging Radiology [facility]st [facility] [address] [place] [address] 03/28/2024 3:20 PM EST Office Visit [facility] [address] [place] [phone] Shanika Fitzgerald, [address] [place] [address] Scheduled Procedures Name Priority Associated Diagnoses Date/Ti [...] this encounter Medical Devices Implanted Type Area Critical Care Educator Device Identifier Shelf Expiration Date Model / Serial / Lot Graft Hemasheild 20mm [id number] - [id number] Implanted:Qty: 1 on 01/13/2009 at OR [facility] N/A: Abdomen MICROVASIVE [id number] / / [id number] Clip Resolution 360 Endo 235cm - [id number] Implanted:Qty: 1 on 12/10/2022 by Lacie England MD at OR [facility] [employer] : ENDOSCOPY [id number] 07/02/2025 [id number] / / [id number] Clip Resolution 360 Endo 235cm - [id number] Implanted:Qty: 1 on 12/10/2022 by Lacie England MD at OR [facility] : ENDOSCOPY [id number] 07/02/2025 [id number] / / [id number] Stent Axios [id number] - [id number] Implanted:Qty: 1 on 12/10/2022 by Lacie England MD at OR [facility] : ENDOSCOPY [id number] 04/06/2023 [id number] / / [id number] documented as of this encounter Advance Directives Documents on File Type Date Recorded Patient Tipple Supervisor Expl anation Power of Dressmaker Garment Fitter 07/30/2022 POWER OF A TTORNEY Latest Code [...] and were consensually agreed upon. Care Teams Splunk Developer Relationship Specialty Start Date End Date Jairo Kingston MD [address] [place] [address] PCP - General 12/21/05 documented as of this encounter
--- OUTSIDE RECORDS SUMMARY | 2023-09-03 23:18 | External Medical Summary | Summary of Care ---
Author Name Unknown Organization [facility] Address [address] [place] [address] Phone [phone] Care Team Providers Care Nuclear Medicine Technologist Name Role Phone Jairo Kingston MD Primary Care Provider +1- [phone] Reason for Visit * Reason Onset Date Comments Medication Refill 08/24/2023 Encounter Details Date Type Department Care Team (Late st Contact Info) Description 08/24/2023 Refill Cardiology, [facility] [address] [place] [address] FarhatMine jhaveri CRNP [address] [place] [address] HTN, goal below 140/90* Allergies Active Allergy [...] 0.1 % Nasal Solution (Astelin) Administer 1 [place] into nostril in the morning and 1 [place] before bedtime. 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 GINNY on CPAP 11/11/2022 [...] encounter Miscellaneous Notes * Telephone Encounter - Airam Miguel CMA [...] Orders * Telephone Encounter - Nyla Abraham [facility] - 08/24/2023 8:52 AM EDT Patient is [...] medication was ordered: 12/03/22 [id number] [address] [place] [address] Is this request for a controlled substance?No [...] AM * Telephone Encounter - Arlene Hansen gas line installer - 08/24/2023 8:48 AM EDT Pt is out of Potassium Chloride Marla ER 10 MEQ Oral Tablet Extended Release His daughter is asking for an emergency refill Spoke to specialty line and they will send new refill high priority Thank you for your assistance Arlene Hansen Manager Secondary II Centralized Clinical Pharmacy Services (CCPS) (Formerly Telepharmacy) 08/24/2023,8:52 AM documented in this encounter Plan of Treatment Upcoming Encounters Date Type Department Care Team (Late st Contact Info) Description 08/26/2023 2:00 PM EDT Hem/Onc Treatment Hematology/Oncology Treatment, [place] [address] [facility] [place] [phone] Park, Chair 6 Hem Onc [address] [place], [place] [address] 09/13/2023 10:00 AM EDT Home Visit [facility] 132 [facility] [place] [address] Jenifer Linder RN 132 [facility] [place] [address] 09/23/2023 2:00 PM EDT Hem/Onc Treatment Hematology/Oncology Treatment, [place] [address] [facility], [place] [phone] Hannah, Chair 8 Hem Onc [address] [place] [address] 10/10/2023 9:00 AM EDT Office Visit [facility] [address] [place] [phone] Jairo Kingston MD [address] [place] [address] 11/30/2023 8:30 AM EDT Procedure Only Endoscopy, [facility] [address] [place] [address] Lacie England MD 132 [facility] [place] [address] 12/13/2023 3:00 PM EDT Office Visit Nephrology, [facility] [address] [place] [address] Reggie Azevedo MD 200 [facility] [place] [address] 01/19/2024 4:45 PM EDT Imaging Radiology [address], [place] [address] [place] [address] 03/28/2024 3:20 PM EST Office Visit [facility]tr [facility] [address] [place] [address] FitzgeraldDemetritiara Finleyt, [address] [place] [address] Scheduled Procedures Name Priority Associated Diagnoses Date/Ti [...] this encounter Medical Devices Implanted Type Area Hvac Lead Device Identifier Shelf Expiration Date Model / Serial / Lot Graft Hemasheild 20mm [id number] - [id number] Implanted:Qty: 1 on 01/13/2009 at [place] [facility] [place]/A: Abdomen MICROVASIVE [id number] / / [id number] Clip Resolution 360 Endo 235cm - [id number] Implanted:Qty: 1 on 12/10/2022 by Lacie England MD at OR [facility] [employer] : ENDOSCOPY [id number] 07/02/2025 [id number] / / [id number] Clip Resolution 360 Endo 235cm - [id number] Implanted:Qty: 1 on 12/10/2022 by Lacie England MD at OR [facility] [employer] : ENDOSCOPY [id number] 07/02/2025 [id number] / / [id number] Stent Axios [id number] - [id number] Implanted:Qty: 1 on 12/10/2022 by Lacie England MD at OR [facility] [employer] : ENDOSCOPY [id number] 04/06/2023 [id number] / / [id number] documented as of this encounter Visit Diagnoses Diagnosis HTN, goal below 140/90- Primary Unspecified essential hypertension documented in this encounter Advance Directives Documents on File Type Date Recorded Patient Counselor Education Professor Expl anation Power of Hospice Community Liaison 07/30/2022 POWER OF A TTORNEY Latest Code [...] and were consensually agreed upon. Care Teams Nuclear Medicine Technologist Relationship Specialty Start Date End Date Jairo Kingston MD [address] [place] [facility] [place] [address] PCP - General 12/21/05 documented as of this encounter
--- OUTSIDE RECORDS SUMMARY | 2023-09-03 23:18 | External Medical Summary ---
Author Name Unknown Address Unknown Organization K01:[facility]ATORY [facility] - [address] [place] [address] Laboratory Report Ordering Provider Test Date Status MANFRED RODRIGUEZ 08/26/2023 14:02:51 Final Observation Date Value Abnormality Reference (Units ) Status Folic Acid 08/26/2023 14:02:51 12.1 >4.5 (ng/ mL) Final Performing Location LABORATORY [facility] - [address] [place] [address]
--- OUTSIDE RECORDS SUMMARY | 2023-09-03 23:19 | External Medical Summary | Summary of Care ---
Author Name Unknown Organization [facility] Address [address] [place] [address] Phone [phone] Care Team Providers Care Popcorn Attendant Name Role Phone Jairo Kingston MD Primary Care Provider +1- [phone] Reason for Visit * Reason Comments Hospital Follow-Up Encounter Details Date Type Department Care Team (Latest Contact Info) Description 07/26/2023 2:00 PM EDT Office Visit [facility] [address] [place] [address] Jairo Kingston MD [address] [place] [address] Subconjunctival hemorrhage, unspecified laterality*; Recurrent cerebrovascular accidents (CVAs) (HCC) Allergies Active Allergy Reactions Criticality Noted Date Comments Pavan Inhibitors Other (Please comment) 0 Hyperkalemia documented as of this encounter (statuses as of 08/14/2023) Medications Medication Sig Dispensed Refills Start Date [...] 0.1 % Nasal Solution (Astelin) Administer 1 Yancey into nostril in the morning and 1 Yancey before bedtime. 30 mL 1 3 Active [...] DAY 90 Tablet 3 3 08/09/19 24 Ipratropium-Albutero l 0.5-2.5 (3) MG/3ML Inhalation Solution (Duoneb) Inhale 3 mL by mouth every 6 hours as needed (sob). 360 mL 5 3 07/26/19 24 Discontinue d(Refill) Trelegy Ellipta 100-62.5-25 MCG/ACT Aerosol Powder Breath Activated (Fluticasone-Umeclid inium-Vilanterol) Inhale one puff daily 180 Each 1 3 08/01/19 24 Discontinue d(Refill) documented as of this encounter (statuses as of 08/14/2023) Active Problems Problem Noted Date Diagnosed Date [...] 0 11/11/2022 Last Assessment & Plan: Allopurinol skilled nursing No new attacks GINNY on CPAP 11/11/2022 [...] as of this encounter (statuses as of 08/14/2023) Resolved Problems Problem Noted Date Diagnosed Date [...] as of this encounter (statuses as of 08/14/2023) Immunizations Name Administration Dates Next Due COVID-19 [...] 04/18/1973 - 0 04/18/2008 Smokeless Tobacco: Never Tobacco Cessation:Counseling Given: Not [...] Sign Reading Time Taken Comments Blood Pressure 116/58 07/26/2023 2:06 PM EDT Pulse 70 07/26/2023 2:06 PM EDT Temperature 36.4 C (97.5 F) 07/26/2023 2 :06 PM EDT Respiratory Rate 18 07/26/2023 2:06 PM EDT Oxygen Saturation 94% 07/26/2023 2:0 6 PM EDT 2 liters O2 Inhaled Oxygen Concentration - - Weight 94.2 kg (207 lb 9.6 oz) 07/26/19 24 2:06 PM EDT Height 167.6 cm (5' 6") 07/26/2023 2:06 PM EDT Body Mass Index 33.51 07/26/2023 2:06 PM EDT documented in this encounter Progress Notes * Jairo Kingston MD - 08/14/2023 2:57 PM EDT Subjective: Mikhail Fung is a 73 year old male here today for Chief Complaint Patient presents with Hospital Follow-Up Pt presents for ED follow up. Was seen in our clinic and sent to ED for subconjunctival hemorrhage.No intervention needed. Already doing better. Can see ED note for details. No new issues. Past Medical History: Diagnosis Date Abdominal aortic [...] performed by Jayna Montana MD at ENDOSCOPY [facility] COLONOSCOPY, DIAGNOSTIC (RECTUM) 08/02/2017 adenomatous polyps, diverticulosis, repeat 3 yrs/COLONOSCOPY FLEXIBLE PROXIMAL DIAGNOSTIC performedby Lacie England MD at ENDOSCOPY [facility] COLONOSCOPY, DIAGNOSTIC (RECTUM) 01/02/2021 benign adenomatous polyp, diverticulosis, repeat 5 yrs / [facility] COLONOSCOPY, GI REFERRAL OP 08/2004 polyps, repeat 08/23 EGD, FLEXIBLE, DIAGNOSTIC 02/20/2018 normal / [facility] EGD, FLEXIBLE, DIAGNOSTIC 11/04/2021 gastritis, gastric ulcer, repeat 3 mo / [facility] EGD, FLEXIBLE, DIAGNOSTIC 03/03/2022 normal egd, EGD, FLEXIBLE, W/CYST DRAINAGE N/A 12/10/2022 single non-bleeding angioectasia stomach/ESOPHAGOGASTRODUODENOSCOPY (EGD), FLEXIBLE, TRANSORAL, WITH DRAINAGE PSEUDOCYST performed by Lacie England MD at [facility] EGD, FLEXIBLE,W/ENDOSCOPIC US 11/04/2022 CBD dilation, CBD stones, angioectasias in the stomach / [facility] EGD, W/ENDOSCOPIC US N/A 12/10/2022 cholecystoduodenostomy performed using Axios stent/repeat 1 year/ESOPHAGOGASTRODUODENOSCOPY (EGD), FLEXIBLE, TRANSORAL, ENDOSCOPIC ULTRASOUND performed by Lacie England MD at OR [facility] ERCP 11/04/2022 choledocholithiasis, stent placed, repeat 3 mo / [facility] ERCP 11/26/2022 clots found in biliary tree, stent placed / [facility] ERCP, DIAGNOSTIC, SPECIMEN COLLECTION N/A 12/10/2022 one stent removed from CBD/ENDOSCOPIC RETROGRADE CHOLANGIOPANCREATOGRAPHY (ERCP) DIAGNOSTIC performed by Lacie England MD at OR [facility] MISCELLANEOUS ORDER (HS ONLY) 01/28/2010 Lysis of extensive adhesions, incisional hernia repair laparoscopically 01/28/10 [facility], Dr. Desouza REMOVE LUMBAR SPINE LAMINA, 3+ SEGS 01/2000 Lumbar Disk Excision lL/4 and L 5 fusion with rods REMOVE TONSILS & ADENOIDS, UNDER 12 Tonsillectomy/Adenoids,<12 Y/O TEAR DUCT SYSTEM SURGERY NEC arlyn Review of patient's allergies indicates: Allergen Reactions Pavan Inhibitors Other (Please comment) Hyperkalemia Current Outpatient Medications Medication Sig Dispense Refill oxygen GAS Use 3 L/min(Oxygen) as directed at bedtime. Use 2-3 l/min continuously to keep pulse ox above 90% CVS D3 50 MCG (1999 UT) Oral Capsule (Cholecalciferol) TAKE 1 CAPSULE BY MOUTH EVERY DAY 90 Cap 1 Potassium Chloride Marla ER 10 MEQ Oral Tablet Extended Release Take 1 Tablet by mouth once a day onTuesday, Tuesday, and Tuesday only. 45 Tablet 3 CPAP every night at bedtime. Ascorbic Acid 250 MG Oral Tablet Take 0.5 Tablets by mouth daily at noon. 90 Tablet 3 Albuterol Sulfate HFA 108 (90 Base) MCG/ACT Inhalation Aerosol Solution Inhale 2 Puffs by mouth every 4 hours as needed for Wheezing. 54 g 6 Azelastine HCl 0.1 % Nasal Solution (Astelin) Administer 1 Yancey into nostril in the morning and 1 Yancey before bedtime. 30 mL 1 Furosemide 20 MG Oral Tablet (Lasix) TAKE 1 TABLET BY MOUTH twice DAILY 90 Tablet 3 Ezetimibe 10 MG Oral Tablet (Zetia) TAKE ONE TABLET BY MOUTH EVERY MORNING 90 Tablet 3 Metoprolol Tartrate 25 MG Oral Tablet (Lopressor) Take 1 Tablet by mouth in the morning and 1 Tablet before bedtime. 100 Tablet 3 Docusate Sodium 100 MG Oral Capsule (Colace) Take 1 Capsule by mouth 2 times a day as needed for Constipation. 180 Capsule 3 Pantoprazole Sodium 40 MG Oral Tablet Delayed Release (Protonix) Take 1 Tablet by mouth in the morning and 1 Tablet before bedtime. 180 Tablet 3 Allopurinol 300 MG Oral Tablet (Zyloprim) TAKE ONE-HALF TABLET BY MOUTH EVERY DAY 45 Tablet 2 Apixaban 2.5 MG Oral Tablet (Eliquis) Take 1 Tablet by mouth in the morning and 1 Tablet before bedtime. 180 Tablet 1 Ipratropium-Albuterol 0.5-2.5 (3) MG/3ML Inhalation Solution (Duoneb) Inhale 3 mL by mouth every 6 hours as needed (sob). 360 mL 5 Ferrous Sulfate 325 (65 Fe) MG Oral Tablet (Feosol) Take 1 Tablet by mouth daily at noon. (Patient not taking: Reported on 04/26/2023) 90 Tablet 3 Octreotide Acetate 10 MG Intramuscular Kit (SandoSTATIN LAR [place]) Inject 10 mg into a large muscleevery month for 6 doses. (Patient not taking: Reported on 04/26/2023) 6 Kit 0 Fluticasone Propionate 50 MCG/ACT Nasal Suspension (Flonase) INSTILL 2 SPRAYS INTO EACH NOSTRIL EVERY DAY 48 g 3 Trelegy Ellipta 100-62.5-25 MCG/ACT Aerosol Powder Breath Activated (Qenfwpxwwmn-Loillqpbddfj-Mrqbxgyxft) INHALE ONE PUFF BY MOUTH EVERY DAY 180 Each 1 No current facility-administered medications for this visit. Objective: BP 116/58 | Pulse 70 | Temp 36.4 C (97.5 F) (Temporal Artery) | Resp 18 | Ht 1.676 m(5' 6") | Wt 94.2 kg (207 lb 9.6 oz) | SpO2 94% Comment: 2 liters O2 | BMI 33.51 kg/m | BSA 2.09 m GEN: NAD HEENT: Benign NECK: Supple with no LAD, TM, JVD CHEST: CTA B CV: RRR ABD: Soft, NT/ND, No HSM, NABS EXT: No c,c,e Assessment and Plan: Subconjunctival hemorrhage, unspecified laterality (Primary) -nothing further needed. Call for an new or worsening symptoms. Recurrent cerebrovascular accidents (CVAs) (HCC) Other orders - Ipratropium-Albuterol 0.5-2.5 (3) MG/3ML Inhalation Solution (Duoneb); Inhale 3 mL by mouth every 6 hours as needed (sob). 22 min with pt and documentation Jairo Kingston MD documented in this encounter Nursing Notes * Micheline Harris LPN - 07/26/2023 2:06 PM EDT The patient has been properly identified by confirmation of name and date of . Chief Complaint Patient presents with Hospital Follow-Up documented in this encounter Plan of Treatment Upcoming Encounters Date Type Department Care Team (Late st Contact Info) Description 08/26/2023 2:00 PM EDT Hem/Onc Treatment Hematology/Oncology Treatment, [address] [place] [phone] Hannah, Chair [address] [place] [address] 09/13/2023 10:00 AM EDT Home Visit [facility] [address] [facility] [place] [address] Jenifer Linder, RN [address] [facility] [place] [address] 09/23/2023 2:00 PM EDT Hem/Onc Treatment [address]ematology/[address] [phone] Hannah, Chair 8 Hem Onc [address] [place] [address] [place] [address] 10/10/2023 9:00 AM EDT Office Visit [facility] [address] [place] [facility] [phone] Jairo Kingston MD [address] [facility] [place] [address] 11/30/2023 8:30 AM EDT Procedure Only Endoscopy, [facility] [place] [address] [place] [address] Lacie England MD [address] [place] [address] 12/13/2023 3:00 PM EDT Office Visit Nephrology, [facility] [address] [facility] [place] [address] Reggie Azevedo MD [address] [place] [address] 01/19/2024 4:45 PM EDT Imaging Radiology [address] [facility] [place] [address] 03/28/2024 3:20 PM EST Office Visit [facility] [address] [facility] [place] [phone] Shanika Fitzgerald DO [address] [facility] [place] [address] Scheduled Procedures Name Priority Associated Diagnoses Date/Ti [...] 08/28/2022 Albumin/Creatinine Ratio 10/08/2022 10/08/2021 COVID-19 Vaccine (2022- season) 2022 02/19/2021, 06/19/2020, 05/22/2020 GFR 11/18/2023 [...] this encounter Medical Devices Implanted Type Area Satellite Manager Device Identifier Shelf Expiration Date Model / Serial / Lot Graft Hemasheild 20mm [id number] - [id number] Implanted:Qty: 1 on 01/13/2009 [place] [facility] [place]: Abdomen MICROVASIVE [id number] / / [id number] Clip Resolution 360 Endo 235cm - [id number] Implanted:Qty: 1 on 12/10/2022 by Lacie England MD at OR [facility] [employer] : ENDOSCOPY [id number] 07/02/2025 [id number] / / [id number] Clip Resolution 360 Endo 235cm - [id number] Implanted:Qty: 1 on 12/10/2022 by Lacie England MD at OR [facility] [employer] : ENDOSCOPY [id number] 07/02/2025 [id number] / / [id number] Stent Axios [id number] - [id number] Implanted:Qty: 1 on 12/10/2022 by Lacie England MD at OR [facility] [employer] : ENDOSCOPY [id number] 04/06/2023 [id number] / / [id number] documented as of this encounter Visit Diagnoses Diagnosis Subconjunctival hemorrhage, unspecified laterality- Primary Recurrent cerebrovascular accidents (CVAs) (HCC) documented in this encounter Advance Directives Documents on File Type Date Recorded Patient Medical Payment Poster Expl anation Power of Cement Boat And Barge Loader 07/30/2022 POWER OF A TTORNEY Latest Code [...] and were consensually agreed upon. Care Teams Popcorn Attendant Relationship Specialty Start Date End Date Jairo Kingston MD [address] [place] [address] PCP - General 12/21/05 documented as of this encounter
--- OUTSIDE RECORDS SUMMARY | 2023-09-03 23:19 | External Medical Summary | Summary of Care ---
Author Name Unknown Organization [facility] Address [address] [place] [address] Phone [phone] Care Team Providers Care Third Grade Teacher Name Role Phone Jairo Kingston MD Primary Care Provider +1- [phone] Reason for Visit * Reason Comments Infusion Venofer Encounter Details Date Type Department Care Team (Latest Contact Info) Description 07/01/2023 2:00 PM EDT Hem/Onc Treatment Hematology/Oncology Treatment, [place] [address] [place] [address] Iron deficiency anemia due to chronic blood loss* Allergies Active Allergy Reactions Criticality Noted Date Comments Pavan Inhibitors Other (Please comment) 0 Hyperkalemia documented as of this encounter (statuses as of 08/19/2023) Medications Medication Sig Dispensed Refills Start Date [...] 0.1 % Nasal Solution (Astelin) Administer 1 [place] into nostril in the morning and 1 [place] before bedtime. 30 mL 1 3 Active [...] DAY 48 g 3 3 07/29/19 24 Discontinu ed(Refill) Apixaban 2.5 MG Oral Tablet (Eliquis)Indications :Recurrent cerebrovascular accidents (CVAs) (HCC) Take 1 Tablet by mouth in the morning and 1 Tablet before bedtime. 180 Tablet 1 3 07/26/19 24 Discontinu ed(Refill) Ipratropium-Albutero l 0.5-2.5 (3) MG/3ML Inhalation Solution (Duoneb) Inhale 3 mL by mouth every 6 hours as needed (sob). 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 No new attacks GINNY on CPAP 11/11/2022 [...] as of this encounter (statuses as of 08/19/2023) Resolved Problems Problem Noted Date Diagnosed Date [...] as of this encounter (statuses as of 08/19/2023) Immunizations Name Administration Dates Next Due COVID-19 [...] Taken Comments Blood Pressure - - Pulse 67 07/01/2023 2:38 PM EDT Temperature 36.7 C (98.1 F) 07/01/2023 2:38 PM ED T Respiratory Rate 18 07/01/2023 2:38 PM EDT Oxygen Saturation 91% 07/01/2023 2:38 PM EDT Inhaled Oxygen Concentration - - Weight - - Height - - Body Mass Index - - documented in this encounter Nursing Notes * Nyla Barajas LPN - 07/01/2023 2:39 PM EDT 1405: Chair 11. Pt arrived for Venofer infusion. PIV in LFA. Labs drawn with IV start. Pt toleratedwell. VSS. No complaints at this time. 1430: Hgb 12.4. Ferritin/iron not resulted yet. 1515: Pt asking questions about how long he needs to be on the Venofer. Requesting to go back to Aranesp injection. Spoke with MD and pt does not qualify for Aranesp at this time. Pt is getting iron due to having low iron. Nurse explained this to patient. Per MD pt is now stable enough to move to Q4 weeks. Pt agrees and is very happy about moving to Q 4 weeks due to having to get transportation from his family. 1550: Pt tolerated Venofer infusion well. PIV removed intact. Pt to return in 4 weeks. Discharged in stable condition. documented in this encounter Plan of Treatment Upcoming Encounters Date Type Department Care Team (Late st Contact Info) Description 08/26/2023 2:00 PM EDT Hem/Onc Treatment Hematology/Oncology Treatment, [place] [address] [place] [phone] Hannah, Chair 6 Hem Onc Scenery [address] [place] [address] 09/13/2023 10:00 AM EDT Home Visit [facility], [address] [place] [phone] Jenifer Linder, RN [address] [place] [address] 09/23/2023 2:00 PM EDT Hem/Onc Treatment Hematology/Oncology Treatment, [place] [address] [place] [phone] Hannah, Chair 8 Hem Onc [facility] [address] [place] [address] 10/10/2023 9:00 AM EDT Office Visit [facility] [address] [facility], [place] [phone] Jairo Kingston MD [address] [place] [facility] [place] [address] 11/30/2023 8:30 AM EDT Procedure Only Endoscopy, [facility] [address] [place] [address] Lacie England MD [address] [place] [address] 12/13/2023 3:00 PM EDT Office Visit Nephrology, [facility] [address] [facility] [place] [address] Reggie Azevedo MD [address] [facility] [place] [address] 01/19/2024 4:45 PM EDT Imaging Radiology [facility] [address] [facility] [address] [place] [address] 03/28/2024 3:20 PM EST Office Visit [facility] Ctr [facility] [address] [place] [phone] Shanika Fitzgerald DO [address] [place] [address] Scheduled Procedures Name Priority Associated Diagnoses Date/Ti [...] this encounter Medical Devices Implanted Type Area Catcher Helper Device Identifier Shelf Expiration Date Model / Serial / Lot Graft Hemasheild 20mm [id number] - [id number] Implanted:Qty: 1 on 01/13/2009 [place] [facility] [place]: Abdomen MICROVASIVE [id number] / / [id number] Clip Resolution 360 Endo 235cm - [id number] Implanted:Qty: 1 on 12/10/2022 by Lacie England MD at [place] [facility] [employer] : ENDOSCOPY [id number] 07/02/2025 [id number] / / [id number] Clip Resolution 360 Endo 235cm - [id number] Implanted:Qty: 1 on 12/10/2022 by Lacie England MD at [place] [facility] [employer] : ENDOSCOPY [id number] 07/02/2025 [id number] / / [id number] Stent Axios [id number] - [id number] Implanted:Qty: 1 on 12/10/2022 by Lacie England MD at OR [facility] [employer] : ENDOSCOPY [id number] 04/06/2023 [id number] / / [id number] documented as of this encounter Procedures Procedure Name Priority Date/Time Associated Diagnosis Comments DIFFERENTIAL, AUTOMATED STAT 07/01/2023 1:57 PM EDT Iron deficiency anemia due to chronic blood loss IRON SCREEN, INCLUDING TIBC STAT 07/01/2023 1:57 PM EDT Iron deficiency anemia due to chronic blood loss CBC STAT 07/01/2023 1:57 PM EDT Iron deficiency anemia due to chronic blood loss CBC STAT 07/01/2023 1:57 PM EDT Iron deficiency anemia due to chronic blood loss FERRITIN STAT 07/01/2023 1:57 PM EDT Iron deficiency anemia due to chronic blood loss documented in this encounter Results * (ABNORMAL) DIFFERENTIAL, AUTOMATED (07/01/2023 1:57 PM EDT) Pathologist [facility] WBC 8.44 4.00 - 10.80 K/uL 07/01/2023 2:21 PM EDT [facility] 56-02 Neutrophils % 70.2 40.0 - 75.0 % 07/01/2023 2:21 PM EDT [facility] 56-02 Lymphocytes % 13.4(L) 18.0 - 42.0 % 07/01/2023 2:21 PM EDT [facility] 56-02 Monocytes % 10.0 1.0 - 11.0 % 07/01/2023 2:21 PM EDT [facility] 56-02 Eosinophils % 5.6 0.0 - 6.0 % 07/01/2023 2:21 PM EDT [facility] 56-02 Basophils % 0.8 0.0 - 2.0 % 07/01/2023 2:21 PM EDT [facility] 56-02 Absolute Neutrophils 5.93 1.80 - 7.70 K/uL 07/01/2023 2:21 PM EDT [facility] 56-02 Absolute Lymphocytes 1.13 1.00 - 4.80 K/ul 07/01/2023 2:21 PM EDT [facility] 56-02 Absolute Monocytes 0.84 0.00 - 1.10 K/uL 07/01/2023 2:21 PM EDT [facility] 56-02 Absolute Eosinophils 0.47 0.00 - 0.70 K/uL 07/01/2023 2:21 PM EDT [facility] 56-02 Absolute Basophils 0.07 0.00 - 0.20 K/uL 07/01/2023 2:21 PM EDT [facility] 56-02 Blood Venous blood specimen / Unknown Venipuncture / Unknown 07/01/2023 1:57 PM EDT 07/01/2023 2:17 PM EDT [facility] LAB BLOOD ORDER [facility] [address] [place] [address] * (ABNORMAL) CBC (07/01/2023 1:57 PM EDT) [facility] Signature WBC 8.44 4.00 - 10.80 K/uL 07/01/2023 2:21 PM EDT [facility] 56- RBC 3.82 4.50 - 5.25 M/uL 07/01/2023 2:21 PM EDT [facility] 56- HGB 12.4(L) 14.0 - 16.8 g/dL 07/01/2023 2:21 PM EDT [facility] 56 HCT 39.0(L) 40.0 - 48.4 % 07/01/2023 2:21 PM EDT [facility] 56 MCV 102.1 82.0 - 99.5 fL 07/01/2023 2:21 PM EDT [facility] 56 MCH 32.5 27.0 - 34.0 pg 07/01/2023 2:21 PM EDT [facility] 56 MCHC 31.8 32.0 - 36.0 g/dL 07/01/2023 2:21 PM EDT [facility] 56 RDW 17.0 11.5 - 15.5 % 07/01/2023 2:21 PM EDT [facility] 56 PLT 100(L) 140 - 400 K/uL 07/01/2023 2:21 PM EDT [facility] 56 MPV 12.0 6.6 - 11.1 fL 07/01/2023 2:21 PM EDT [facility] 56- Blood Venous blood specimen / Unknown Venipuncture / Unknown 07/01/2023 1:57 PM EDT 07/01/2023 2:17 PM EDT [facility] LAB BLOOD ORDER [facility] [address] [place] [address] * IRON SCREEN, INCLUDING TIBC (07/01/2023 1:57 PM EDT) Iron 63 45 - 176 ug/dL 07/01/2023 11:05 PM EDT [facility] Iron Binding Capacity 269 250 - 425 ug/dL 07/01/2023 11:05 PM EDT [facility] Transferrin Saturation Percent 23 15 - 55 % 07/01/2023 11:05 PM EDT LABORATORY C Blood Venous blood specimen / Unknown Venipuncture / Unknown 07/01/2023 1:57 PM EDT 07/01/2023 2:17 PM EDT Sheri [facility] LAB BLOOD ORDER [facility] [address] [place] [address] * FERRITIN (07/01/2023 1:57 PM EDT) Ferritin 366 30 - 400 ng/mL 07/02/2023 1:04 AM EDT [facility] Blood Venous blood specimen / Unknown Venipuncture / Unknown 07/01/2023 1:57 PM EDT 07/01/2023 2:17 PM EDT Sheri [facility] LAB BLOOD ORDER [facility] [place] [address] [place] [address] documented in this encounter Visit Diagnoses Diagnosis [...] mg, IV Piggyback, ONCE, 1 dose, On Tue07/01/23 at 1530, Administer over 90 Minutes Start Infusion 07/01/2023 2:09 PM EDT 300 mg 166.67 mL/hr NSS infusion 500 mL, Intravenous, at 50 mL/hr, CONTINUOUS, Starting on Tue07/01/23 at 1500, Until Tue07/01/23 at 1954 Start Infusion 07/01/2023 2:09 PM EDT 500 mL 50 mL/hr documented in this encounter Advance Directives Documents on File Type Date Recorded Patient Property And Equipment Clerk Expl anation Power of Stock Patcher 07/30/2022 POWER OF A TTORNEY Latest Code [...] and were consensually agreed upon. Care Teams Third Grade Teacher Relationship Specialty Start Date End Date Jairo Kingston MD [address] [place] [address] PCP - General 12/21/05 documented as of this encounter
--- OUTSIDE RECORDS SUMMARY | 2023-09-03 23:19 | External Medical Summary | Summary of Care ---
Author Name Unknown Organization [facility] Address [address] [place] [address] Phone [phone] Care Team Providers Care Drafter Refrigeration Name Role Phone Jairo [place] MD Primary Care Provider +1- [phone] Reason for Visit * Reason Comments [facility]: Maintenance Encounter Details Date Type Department Care Team (Late st Contact Info) Description 08/09/2023 10:00 AM EDT Home Visit [facility], [facility] [address] [place] [address] Jenifer Linder RN [address] [place] [address] Allergies Active Allergy Reactions Criticality Noted Date Comments Pavan Inhibitors Other (Please comment) 0 Hyperkalemia documented as of this encounter (statuses as of 08/09/2023) Medications Medication Sig Dispensed Refills Start Date End Date Status oxygen GAS Use 3 L/min(Oxygen) as directed at bedtime. Use 2-3 l/min continuously to keep pulse ox above 90% 0 Active [facility] D3 50 MCG (1999) Oral Capsule (Cholecalciferol)Ind ications:Vitamin D deficiency TAKE 1 CAPSULE BY MOUTH EVERY DAY 90 Cap 1 02/12/2020 Active Atorvastatin Calcium 80 MG Oral Tablet (Lipitor) TAKE ONE TABLET BY MOUTH EVERY DAY 90 Tablet 3 04/18/2022 4 Active Potassium Chloride Marla ER 10 [...] 0.1 % Nasal Solution (Astelin) Administer 1 Altura into nostril in the morning and 1 Altura before bedtime. 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 GINNY on CPAP [...] as of this encounter (statuses as of 08/09/2023) Resolved Problems Problem Noted Date Diagnosed Date [...] as of this encounter (statuses as of 08/09/2023) Immunizations Name Administration Dates Next Due COVID-19 [...] Sign Reading Time Taken Comments Blood Pressure 130/68 08/09/2023 10:03 AM EDT left arm standing Pulse 67 08/09/2023 10:00 AM EDT Temperature 36.5 C (97.7 F) 08/09/2023 1 0:00 AM EDT Respiratory Rate 18 08/09/2023 10:0 0 AM EDT Oxygen Saturation 95% 08/09/2023 10: 00 AM EDT Inhaled Oxygen Concentration - - Weight 90.3 kg (199 lb) 08/09/2023 10:0 0 AM EDT Height - - Body Mass Index 32.12 07/26/2023 2:06 PM EDT documented in this encounter Progress Notes * Jenifer Linder RN - 08/09/2023 8:10 AM EDT [facility] Air Traffic Control Manager Visit Date: 08/09/2023 Time: 10:10 AM Name: Mikhail Fung : 1950 Current Concerns: Pt seen for return RNCM visit Was seen in ED on 07/20 for subconjunctival hemorrhage - went to PCP for c/o weakness and dizziness and found to have bloodshot eye - sent to ED for further eval Exams and tests were negative , no increased intraocular pressure Held Eliquis a few days but is back on it now Today pt reports he is feeling well Continues to get Iron infusions once a month now Denies black stools or bright right blood LE edema has been staying down, only trace today Denies any concerns at this time Has occasional dizziness when first getting up Checked orthostatic bp today - 140/72 sitting and 130/68 standing - states not really dizzy, just wobbly Denies increased SOB or increase in cough Physical Exam: BP 130/68 Comment: left arm standing | Pulse 67 | Temp 36.5 C (97.7 F) | Resp 18 | Wt 90.3 kg (199 lb) | SpO2 95% | BMI 32.12 kg/m | BSA 2.05 m Pain 0 Physical Exam Constitutional: General: He [...] Eyes: Negative. Respiratory: Positive for cough (chronic, white mucus) and shortness of breath (CAMARENA - at baseline). Cardiovascular: Positive for leg swelling. Gastrointestinal: Negative. Genitourinary: Negative. Skin: Negative. Neurological: Positive for dizziness (mostly when first getting up) and light-headedness. Psychiatric/Behavioral: Negative. Medication Reconciliation: (See medication list) Does patient take medications as ordered: Yes Patient Well Being: PHQ2/9: No questionnaires available. No change in living situation Denies falls [facility] Completed this Visit: Yes. [facility]: Reason Completed: Status post ED visit/hospital admission [facility] ([facility]) Fall Risk Assessment Tool Age 65+: Yes (08/09/23999) Diagnosis (3 or more co-existing): Yes (08/09/23999) Prior history of falls within 3 months: No (08/09/23999) Incontinence: No (08/09/23999) Visual impairment: No (08/09/23999) Impaired functional mobility: No (08/09/23999) Environmental hazards: No (08/09/23999) Poly Pharmacy (4 or more prescriptions - any type): Yes (08/09/23999) Pain affecting level of function: No (08/09/23999) Cognitive impairment: No (08/09/23999) Score - a score of 4 or more is considered at risk for fallin (08/09/23999) [facility] Interventions: Fall education provided, reviewed/provided Fall brochure Advanced Care Planning: POLST. Reinforcement/Education: Educated on [...] on in am and off in pm - does not often wear Pulmonary f/u with Dr. Rodgers of [facility] Home Interventions Provided: Home Intervention: Other; eval Reinforced current Plan of Care, including self-management and medication regimen Patient's 'Red Flags': Increased SOB Increased weakness/fatigue Black/tarry stools or blood in stool Patient Needs to Remember: Call [facility] at with any new or worsening health concerns or problems, red flag symptoms. Referrals Needed: Other none Follow Up: Is there cellular connectivity/connectivity in the home? Yes Does the patient have internet in the home? Yes Patient encouraged to call the intake phone number for all urgent but not emergent issues. Is the patient new to [facility] within the last 30 days? No, Assess appropriateness for upcoming telehealth visits. Cancel telehealth visits & schedule home visit with care steamboat inspector(s)as indicated. Provider is in agreement with Plan of Care: Yes Scheduled to follow up with patient in one month. Jenifer Linder RN 08/09/2023 10:10 AM documented in this encounter Plan of Treatment Upcoming Encounters Date Type Department Care Team (Late st Contact Info) Description 08/26/2023 2:00 PM EDT Hem/Onc Treatment [address]ematology[address] [phone] Hannah, Chair 6 Hem Onc [facility] [address] [place] [address] [place] [address] 09/13/2023 10:00 AM EDT Home Visit [facility] at [facility] 132 [facility] [place] [address] Jenifer Linder RN 132 [facility] [place] [address] 09/23/2023 2:00 PM EDT Hem/Onc Treatment Hematology/[address], [address] [phone] Hannah, Chair 3 Hem Onc [facility] [address] [place] [address] [place] [address] 10/10/2023 9:00 AM EDT Office Visit [address] [place] [phone] Jairo [place] MD [address] [place] [address] 11/30/2023 8:30 AM EDT Procedure Only Endoscopy, [facility] [address] [place] [address] Lacie England MD [address] [place] [address] 12/13/2023 3:00 PM EDT Office Visit Nephrology, [facility] [address] [facility] [place] [address] Reggie Azevedo MD [address] [place] [address] 01/19/2024 4:45 PM EDT Imaging Radiology [address] 132 [facility] [place] [address] 03/28/2024 3:20 PM EST Office Visit Sleep Disorders Ctr [facility] 132 [place] [phone] Shanika Fitzgerald DO 132 [facility] [place] [address] Scheduled Procedures Name Priority Associated Diagnoses Date/Ti [...] 2022 02/19/2021, 06/19/2020, 05/22/2020 GFR 11/18/2023 05/20/2023, 11/0 10/2022, 01/26/2023, Additional history exists O2 ASSESSMENT COMPLETED IN PAST YEAR FOR COPD 12/11/2023 12/10/2022 Nephrology Referral 02/23/2024 02/22/2023 PTH 02/23/2024 02/22/2023, 12/17, 06/03/2021, Additional history exists Phosphate 02/23/2024 02/22/2023, 11/17, 12/31/2021, Additional history exists Hgb 07/28/2024 07/29/2023, 06/16, 06/17/2023, Additional history exists COLONOSCOPY-EVERY 5 YRS AGES [...] this encounter Medical Devices Implanted Type Area Scientific Affairs Manager Device Identifier Shelf Expiration Date Model / Serial / Lot Graft Hemasheild 20mm [id number] - [id number] Implanted:Qty: 1 on 01/13/2009 at [place] [facility] N/A: Abdomen MICROVASIVE [id number] / / [id number] Clip Resolution 360 Endo 235cm - [id number] Implanted:Qty: 1 on 12/10/2022 by Lacie England MD at OR [facility] [employer] : ENDOSCOPY [id number] 07/02/2025 [id number] / / [id number] Clip Resolution 360 Endo 235cm - [id number] Implanted:Qty: 1 on 12/10/2022 by Lacie England MD at OR [facility] [employer] : ENDOSCOPY [id number] 07/02/2025 [id number] / / [id number] Stent Axios [id number] - [id number] Implanted:Qty: 1 on 12/10/2022 by Lacie England MD at OR [facility] [employer] : ENDOSCOPY [id number] 04/06/2023 [id number] / / [id number] documented as of this encounter Advance Directives Documents on File Type Date Recorded Patient Furniture Arranger Expl anation Power of Foam Rubber Curer 07/30/2022 POWER OF A TTORNEY Latest Code [...] and were consensually agreed upon. Care Teams Drafter Refrigeration Relationship Specialty Start Date End Date Jairo [place] MD [address] [place] [address] PCP - General 12/21/05 documented as of this encounter"
--- OUTSIDE RECORDS SUMMARY | 2023-09-03 23:19 | External Medical Summary | Summary of Care ---
Author Name Unknown Organization [facility] Address [address] [place] [address] Phone [phone] Care Team Providers Care Transportation Design Engineer Name Role Phone Lalo Carias MD Primary Care Provider +1- [phone] Reason for Visit * Reason Comments Medication Refill Encounter Details Date Type Department Care Team (Late st Contact Info) Description 08/01/2023 Refill [facility] [address] [place] [address] Lalo Carias MD [address] [place] [address] Allergies Active Allergy Reactions Criticality Noted Date Comments Pavan Inhibitors Other (Please comment) 0 Hyperkalemia documented as of this encounter (statuses as of 08/02/2023) Medications Medication Sig Dispensed Refills Start Date [...] 0.1 % Nasal Solution (Astelin) Administer 1 Bag[place] into nostril in the morning and 1 Bagwell before bedtime. 30 mL 1 3 Active [...] EVERY DAY 180 Each 1 4 Active Trelegy Ellipta 100-62.5-25 MCG/ACT Aerosol Powder Breath Activated (Fluticasone-Umeclid inium-Vilanterol) Inhale one puff daily 180 Each 1 3 08/01/19 24 Discontinu ed(Refill) documented as of this encounter (statuses as of 08/02/2023) Active Problems Problem Noted Date Diagnosed Date [...] as of this encounter (statuses as of 08/02/2023) Resolved Problems Problem Noted Date Diagnosed Date [...] as of this encounter (statuses as of 08/02/2023) Immunizations Name Administration Dates Next Due COVID-19 [...] encounter Miscellaneous Notes * Telephone Encounter - Renan Sanders [facility] - 08/02/2023 12:45 PM EDTSigned Prescriptions: Disp Refills Trelegy Ellipta 100-62.5-25 MCG/ACT Aeroso*180 Ea*1 Sig: Inhale one puff dailyAuthorizing Provider: LALO CARIAS User: RENAN SANDERS documented in this encounter Plan of Treatment Upcoming Encounters Date Type Department Care Team (Late st Contact Info) Description 08/09/2023 10:00 AM EDT Home Visit nick at [facility] 132 [facility] [place] [address] Jenifer Linder RN 132 [facility] [place] [address] 08/26/2023 2:00 PM EDT Hem/Onc Treatment Hematology/[address]cology [address], [address] [phone] Hannah, Chair 6 Hem On[address] [place] [address] 09/23/2023 2:00 PM EDT Hem/Onc Treatment Hematology/Oncology Treatment, [place] [facility] [phone] Hannah, Chair 3 Hem Onc [facility] [address] [place] [address] [place] [address] 10/10/2023 9:00 AM EDT Office Visit [facility] [address] [facility] [phone] Lalo Carias MD [address] [place] [address] 11/30/2023 8:30 AM EDT Procedure Only Endoscopy, [facility] 132 [facility] [place] [address] Lacie England MD 132 [facility] [place] [address] 12/13/2023 3:00 PM EDT Office Visit Nephrology, [facility] [address] [place] [address] Reggie Azevedo MD [address] [place] [address] 01/19/2024 4:45 PM EDT Imaging Radiology [address] 132 [facility] [place] [address] 03/28/2024 3:20 PM EST Office Visit Sleep Disorders Ctr [facility] 132 [facility] [place] [phone] Shanika Fitzgerald DO 132 [facility] [place] [address] Scheduled Procedures Name Priority Associated Diagnoses Date/Ti me ESOPHAGOGASTRODUODENOSCOPY ( EGD), FLEXIBLE, TRANSORAL, DIAGNOSTIC Recall Abdominal pain COLONOSCOPY FLEXIBLE PROXIMAL DIAGNOSTIC Recall History of colon polyps Health Maintenance Due Date Last Done Comments Hgb 1966 Zoster Vaccines (1 of 2) 1998 AAA Monitoring 10/03/2021 10/03/2020, 01/17, 10/28/2014, Additional history exists Depression Screening 08/20/2022 08/20/2021 *COPD SEVERITY VERIFIED BY PFT 08/28/2022 Albumin/Creatinine Ratio 10/08/2022 10/08/2021 COVID-19 Vaccine ( - 2022- season) 2022 02/19/2021, 06/19/2020, 05/22/2020 GFR 11/18/2023 [...] this encounter Medical Devices Implanted Type Area Jet Piercer Operator Device Identifier Shelf Expiration Date Model / Serial / Lot Graft Hemasheild 20mm [id number] - [id number] Implanted:Qty: 1 on 01/13/2009 at [place] [facility] N/A: Abdomen MICROVASIVE [id number] / / [id number] Clip Resolution 360 Endo 235cm - [id number] Implanted:Qty: 1 on 12/10/2022 by Lacie England MD at OR [facility] : ENDOSCOPY [id number] 07/02/2025 [id number] / / [id number] Clip Resolution 360 Endo 235cm - [id number] Implanted:Qty: 1 on 12/10/2022 by Lacie England MD at OR [facility] [employer] : ENDOSCOPY [id number] 07/02/2025 [id number] / / [id number] Stent Axios [id number] - [id number] Implanted:Qty: 1 on 12/10/2022 by Lacie England MD at OR [facility] [employer] : ENDOSCOPY [id number] 04/06/2023 [id number] / / [id number] documented as of this encounter Advance Directives Documents on File Type Date Recorded Patient Directory Operator Expl anation Power of Ecclesiastical Worker 07/30/2022 POWER OF A TTORNEY Latest Code [...] and were consensually agreed upon. Care Teams Transportation Design Engineer Relationship Specialty Start Date End Date Lalo Carias MD [address] [facility] [place] [address] PCP - General 12/21/05 documented as of this encounter
--- OUTSIDE RECORDS SUMMARY | 2023-09-03 23:20 | External Medical Summary | Summary of Care ---
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 [address] [place] [address] Kwame Diaz MD [address] [place] [address] Change in vision*; Redness of right eye; Pupil reaction absent; History of central retinal artery occlusion; History of CVA (cerebrovascular accident) without residual deficits; Chronic kidney disease, stage 4 (severe) ([facility]); COPD, group D, by GOLD 2017 classification ([facility]); Chronic respiratory failure, unsp w hypoxia or hypercapnia ([facility]) Allergies Active Allergy Reactions Criticality Noted Date Comments Pavan Inhibitors Other (Please comment) 0 Hyperkalemia documented as of this encounter (statuses as of 07/21/2023) Medications Medication Sig Dispensed Refills Start Date [...] DAY 48 g 3 08/17/2022 4 Active Potassium Chloride Marla ER 10 [...] 0.1 % Nasal Solution (Astelin) Administer 1 Clinton into nostril in the morning and 1 Clinton before bedtime. 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 No new attacks IGNNY on CPAP 11/11/2022 Last Assessment & Plan: [...] as of this encounter (statuses as of 07/21/2023) Resolved Problems Problem Noted Date Diagnosed Date [...] as of this encounter (statuses as of 07/21/2023) Immunizations Name Administration Dates Next Due COVID-19 [...] Sign Reading Time Taken Comments Blood Pressure 118/74 07/21/2023 9:03 AM EDT Pulse 64 07/21/2023 9:03 AM EDT Temperature 36.3 C (97.3 F) 07/21/2023 9:03 AM ED T Respiratory Rate 17 07/21/2023 9:03 AM EDT Oxygen Saturation 95% 07/21/2023 9:03 AM EDT Inhaled Oxygen Concentration - - Weight 90 kg (198 lb 6.4 oz) 07/21/2023 9:03 AM EDT Height - - Body Mass Index 32.02 05/20/2023 9:02 AM EST documented in this encounter Progress Notes * Kwame Diaz MD - 07/21/2023 9:31 AM EDT Images from the original note were not included. Subjective Mikhail Fung is a 72 year old male. 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 HPI: Here for acute rt eye redness with vision change , painless Pressure change + Pupil - not reactive to light Possible eye stroke sx Pt stated he had similar episode 3 yrs ago Significant arterial plaque, stenosis problem , CKD stage 4, COPD, PAD , atherosclerosis Discussed with daughter and pt, will send him to ER PMH: Patient Active Problem List Diagnosis Code HTN, [...] accident) without residual deficits Z86.73 Waldenstrom macroglobulinemia (HCC) C88.0 Anemia associated with chronic renal failure N18.9, D63.1 Acute on chronic blood loss anemia D62 Monoclonal paraproteinemia D47.2 Benign hypertensive kidney disease, stage IV (HCC) I12.9, N18.4 History of supraventricular tachycardia Z86.79 Idiopathic chronic gout of foot without tophus M1A.0790 GINNY on CPAP G47.33 History of biliary stent insertion Z98.890 GI bleed K92.2 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, 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 Physical deconditioning R53.81 COPD, group D, by GOLD 2017 classification ([facility]) J44.9 Chronic kidney disease, stage 4 (severe) ([facility]) N18.4 Chronic respiratory failure, unsp w hypoxia or hypercapnia ([facility]) J96.10 Chronic diastolic congestive heart failure (HCC) I50.32 Chronic obstructive pulmonary disease (HCC) J44.9 Supraventricular tachycardia (HCC) I47.10 Hypertensive chronic kidney disease with stage 1 through stage 4 chronic kidney disease, or unspecified chronic kidney disease I12.9 Supraventricular tachycardia (HCC) I47.10 History of central retinal artery occlusion Z86.69 Current Outpatient Medications Medication Sig Dispense Refill oxygen GAS Use 3 L/min(Oxygen) as directed at bedtime. Use 2-3 l/min continuously to keep pulse ox above 90% CVS D3 50 MCG (1999 UT) Oral Capsule (Cholecalciferol) TAKE 1 CAPSULE BY MOUTH EVERY DAY 90 Cap 1 Fluticasone Propionate 50 MCG/ACT Nasal Suspension (Flonase) INSTILL 2 SPRAYS INTO EACH NOSTRIL EVERY DAY 48 g 3 Potassium Chloride Marla ER 10 MEQ [...] 0.1 % Nasal Solution (Astelin) Administer 1 Clinton into nostril in the morning and 1 Clinton before bedtime. 30 mL 1 Furosemide 20 [...] 1 Tablet before bedtime. 100 Tablet 3 Trelegy Ellipta 100-62.5-25 MCG/ACT Aerosol Powder Breath Activated (Kaxbmowmrml-Xcapwktyppiw-Qskqyrbcek) Inhale one puff daily 180 Each 1 Docusate Sodium 100 MG Oral Capsule [...] BY MOUTH EVERY DAY 45 Tablet 2 Ferrous Sulfate 325 (65 Fe) MG Oral Tablet (Feosol) Take 1 Tablet by mouth daily at noon. (Patient not taking: Reported on 04/26/2023) 90 Tablet 3 Octreotide Acetate 10 MG Intramuscular Kit (SandoSTATIN LAR Depot) Inject 10 mg into a large muscleevery month for 6 doses. (Patient not taking: Reported on 04/26/2023) 6 Kit 0 No current facility-administered medications for this visit. Past Medical History: Diagnosis Date Abdominal aortic [...] performed by Jayna Montana MD at ENDOSCOPY [facility] COLONOSCOPY, DIAGNOSTIC (RECTUM) 08/02/2017 adenomatous polyps, diverticulosis, repeat 3 yrs/COLONOSCOPY FLEXIBLE PROXIMAL DIAGNOSTIC performedby Lacie England MD at ENDOSCOPY [facility] COLONOSCOPY, DIAGNOSTIC (RECTUM) 01/02/2021 benign adenomatous polyp, diverticulosis, repeat 5 yrs / [facility] COLONOSCOPY, GI REFERRAL OP 08/2004 polyps, repeat 08/23 EGD, FLEXIBLE, DIAGNOSTIC 02/20/2018 normal / [facility] EGD, FLEXIBLE, DIAGNOSTIC 11/04/2021 gastritis, gastric ulcer, repeat 3 mo / [facility] EGD, FLEXIBLE, DIAGNOSTIC 03/03/2022 normal egd, EGD, FLEXIBLE, W/CYST DRAINAGE N/A 12/10/2022 single non-bleeding angioectasia stomach/ESOPHAGOGASTRODUODENOSCOPY (EGD), FLEXIBLE, TRANSORAL, WITH DRAINAGE PSEUDOCYST performed by Lacie England MD at [facility] EGD, FLEXIBLE,W/ENDOSCOPIC US 11/04/2022 CBD dilation, CBD stones, angioectasias in the stomach / [facility] EGD, W/ENDOSCOPIC US N/A 12/10/2022 cholecystoduodenostomy performed using Axios stent/repeat 1 year/ESOPHAGOGASTRODUODENOSCOPY (EGD), FLEXIBLE, TRANSORAL, ENDOSCOPIC ULTRASOUND performed by Lacie England MD at OR [facility] ERCP 11/04/2022 choledocholithiasis, stent placed, repeat 3 mo / [facility] ERCP 11/26/2022 clots found in biliary tree, stent placed / [facility] ERCP, DIAGNOSTIC, SPECIMEN COLLECTION N/A 12/10/2022 one stent removed from CBD/ENDOSCOPIC RETROGRADE CHOLANGIOPANCREATOGRAPHY (ERCP) DIAGNOSTIC performed by Lacie England MD at OR [facility] MISCELLANEOUS ORDER (HS ONLY) 01/28/2010 Lysis of extensive adhesions, incisional hernia repair laparoscopically 01/28/10 [facility], Dr. Desouza REMOVE LUMBAR SPINE LAMINA, 3+ SEGS 01/2000 Lumbar Disk Excision lL/4 and L 5 fusion with rods REMOVE TONSILS & ADENOIDS, UNDER 12 Tonsillectomy/Adenoids,<12 Y/O TEAR DUCT SYSTEM SURGERY NEC arlyn Review of patient's allergies indicates: Allergen Reactions Pavan Inhibitors Other (Please comment) Hyperkalemia Family History Problem Relation Age of Onset Renal Hx Mother dialysis Other (AAA [Other]) Father Heart disease Sister Pacemaker Hypertension Brother Heart disease Brother PTCA Family Status Relation Status Mo at age 84 83 abd aneurysm living in 01 on dialysis, in September 2003 Fa at age 79 unk Sis Alive Bro Alive Zaid Alive Zaid Alive Zaid Alive 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 Employer: [id number] Employer: [id number] Tobacco Use Smoking status: Former Current packs/day: 0.00 Average packs/day: 1 pack/day for 35.0 years (35.0 ttl pk-yrs) Types: Cigars, Cigarettes Start date: 1973 Quit date: 2008 Years since quittin.2 Smokeless tobacco: Never Vaping Use Vaping Use: Never used Substance and Sexual Activity Alcohol use: Yes Alcohol/week: 3.0 standard drinks of alcohol Types: 3 12 oz of beer per week Drug use: No Sexual activity: Yes Partners: Female Other Topics Concern Not on file Social History Narrative 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 Negative for activity change, appetite change, chills, diaphoresis, fever and unexpected weight change. Eyes: Positive for redness and visual disturbance. Negative for photophobia, pain, discharge and itching. Respiratory: Positive for cough, chest tightness and shortness of breath (chronic). Negative for wheezing. Cardiovascular: Negative for chest pain, palpitations and leg swelling. Gastrointestinal: Negative for abdominal distention and abdominal pain. Musculoskeletal: Positive for arthralgias and gait problem. Psychiatric/Behavioral: Negative for agitation and behavioral problems. Objective BP 118/74 | Pulse 64 | Temp 36.3 C (97.3 F) | Resp 17 | Wt 90 kg (198 lb 6.4 oz) | SpO2 95% | BMI 32.02 kg/m | BSA 2.05 m Physical Exam Constitutional: General: He is not in acute distress. Appearance: Normal appearance. He is not ill-appearing, toxic-appearing or diaphoretic. HENT: Head: Normocephalic and atraumatic. Nose: Nose normal. Eyes: General: Visual field deficit present. Right eye: No discharge. Extraocular Movements: Right eye: Normal extraocular motion. Conjunctiva/sclera: Right eye: Right conjunctiva is injected. Chemosis and hemorrhage present. No exudate. Pupils: Right eye: Pupil is not reactive. Left eye: Pupil is sluggish. Cardiovascular: Rate and Rhythm: Normal rate and regular rhythm. Pulmonary: Effort: Respiratory distress (o2) present. Breath sounds: No stridor. Rhonchi present. No wheezing or rales. Chest: Chest wall: No tenderness. Neurological: Mental Status: He is alert and oriented to person, place, and time. Cranial Nerves: Cranial nerve deficit present. Psychiatric: Behavior: Behavior normal. ASSESSMENT/PLAN: Change in vision (Primary) Redness of right eye Pupil reaction absent History of central retinal artery occlusion History of CVA (cerebrovascular accident) without residual deficits Chronic kidney disease, stage 4 (severe) (HCC) COPD, group D, by GOLD 2017 classification (HCC) Chronic respiratory failure, unsp w hypoxia or hypercapnia (HCC) Sent him to ER today Discussed with daughter Kwame Diaz MD documented in this encounter Nursing Notes * Katerina Nixon LPN - 07/21/2023 9:09 AM EDT The patient has been properly identified by confirmation of name and date of . 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 [address] [facility] [id number] Jairo Kingston MD [address] [place] [address] 11/30/2023 8:30 AM EDT Procedure Only Endoscopy, [place] Olivier [address] [place] [address] Lacie England MD [address] [place] [address] 12/13/2023 3:00 PM EDT Office Visit Nephrology, Yuliet Young [address] [place] [address] Reggie Azevedo MD [address] [place] [address] 01/19/2024 4:45 PM EDT Imaging Radiology [address] [facility] [place] [address] 03/28/2024 3:20 PM EST Office Visit [facility] [address] [facility] [place] [address] Shanika Fitzgerald DO [address] [place] [address] Scheduled Procedures Name Priority Associated Diagnoses Date/Ti [...] this encounter Medical Devices Implanted Type Area Molding Line Assistant Device Identifier Shelf Expiration Date Model / Serial / Lot Graft Hemasheild 20mm [id number] - [id number] Implanted:Qty: 1 on 01/13/2009 at OR [facility] N/A: Abdomen MICROVASIVE [id number] / / [id number] Clip Resolution 360 Endo 235cm - [id number] Implanted:Qty: 1 on 12/10/2022 by Lacie England MD at OR [facility] [employer] : ENDOSCOPY [id number] 07/02/2025 [id number] / / [id number] Clip Resolution 360 Endo 235cm - [id number] Implanted:Qty: 1 on 12/10/2022 by Lacie England MD at OR [facility] [employer] : ENDOSCOPY [id number] 07/02/2025 [id number] / / [id number] Stent Axios [id number] - [id number] Implanted:Qty: 1 on 12/10/2022 by Lacie England MD at OR [facility] : ENDOSCOPY [id number] 04/06/2023 [id number] / / [id number] documented as of this encounter Visit Diagnoses Diagnosis Change in vision- Primary Unspecified visual disturbance Redness of right eye Redness or discharge of eye Pupil reaction absent Other anomaly of pupillary function History of central retinal artery occlusion Personal history of other disorders of nervous system and sense organs History of CVA (cerebrovascular accident) without residual deficits Transient ischemic attack (TIA), and cerebral infarction without residual deficits Chronic kidney disease, stage 4 (severe) (HCC) COPD, group D, by GOLD 2017 classification (HCC) Chronic respiratory failure, unsp w hypoxia or hypercapnia (HCC) documented in this encounter Advance Directives Documents on File Type Date Recorded Patient Securities Research Analyst Expl anation Power of Extractor Loader And Unloader 07/30/2022 POWER OF A TTORNEY Latest Code [...] and were consensually agreed upon. Care Teams Lbd Teacher Relationship Specialty Start Date End Date Jairo Kingston MD [address] [place] [address] PCP - General 12/21/05 documented as of this encounter"
--- OUTSIDE RECORDS SUMMARY | 2023-09-03 23:20 | External Medical Summary | Summary of Care ---
Author Name Unknown Organization [facility] Address [address] [place] [place] [address] Phone [phone] Care Team Providers Care Airline Flight Attendant Name Role Phone Jairo Kingston MD Primary Care Provider [phone]- [phone] Reason for Visit * Reason Comments Infusion Venofer Encounter Details Date Type Department Care Team (Latest Contact Info) Description 07/29/2023 2:00 PM EDT Hem/Onc Treatment Hematology/Oncology Treatment, [address] [phone] Hannah, Chair 10 Hem On[address] [address] Iron deficiency anemia due to chronic blood loss* Allergies Active Allergy Reactions Criticality Noted Date Comments Pavan Inhibitors Other (Please comment) 0 Hyperkalemia documented as of this encounter (statuses as of 07/29/2023) Medications Medication Sig Dispensed Refills Start Date [...] 0.1 % Nasal Solution (Astelin) Administer 1 [place] into nostril in the morning and 1 [place] before bedtime. 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 No new attacks GINNY on CPAP 11/11/2022 [...] as of this encounter (statuses as of 07/29/2023) Resolved Problems Problem Noted Date Diagnosed Date [...] as of this encounter (statuses as of 07/29/2023) Immunizations Name Administration Dates Next Due COVID-19 [...] Description 08/09/2023 10:00 AM EDT [facility] 132 [facility] [place] [address] Jenifer Linder RN 132 [facility] [place] [address] 08/26/2023 2:00 PM EDT Hem/Onc Treatment Hematology/[address], [address] [phone] Hannah, Chair 6 Hem Onc [address] [address] 09/23/2023 2:00 PM EDT Hem/Onc Treatment Hematology/Oncology Treatment, [address] [phone] Hannah, Chair 3 Hem Onc [facility] [address] [facility] [place] [address] 10/10/2023 9:00 AM EDT Office Visit [facility] [address] [place] [facility] [place] [address] Jairo Kingston MD [address] [place] [address] 11/30/2023 8:30 AM EDT Procedure Only Endoscopy, [place] [place] [facility] [place] [address] Lacie England MD 132 [facility] [place] [address] 12/13/2023 3:00 PM EDT Office Visit Nephrology, [facility] [address] [place] [address] Reggie Azevedo MD [address] [place] [address] 01/19/2024 4:45 PM EDT Imaging Radiology [address] 132 [facility] [place] [address] 03/28/2024 3:20 PM EST Office Visit [facility] Disorders Ctr [facility] 132 [facility] [place] [phone] Shanika Fitzgerald DO 132 [facility] [place] [address] Pending Results Name Type Priority Associated Diagnoses Date /Time VITAMIN B12 Lab STAT Iron deficiency anemia due to chronic blood loss 07/29/2023 2:13 PM EDT FERRITIN Lab STAT Iron deficiency anemia due to chronic blood loss 07/29/2023 2:13 PM EDT IRON SCREEN, INCLUDING TIBC Lab STAT Iron deficiency anemia due to chronic blood loss 07/29/2023 2:13 PM EDT Scheduled Procedures Name Priority Associated [...] this encounter Medical Devices Implanted Type Area Citrix Architect Device Identifier Shelf Expiration Date Model / Serial / Lot Graft Hemasheild 20mm [id number] - [id number] Implanted:Qty: 1 on 01/13/2009 at OR [facility] N/A: Abdomen MICROVASIVE [id number] / / [id number] Clip Resolution 360 Endo 235cm - [id number] Implanted:Qty: 1 on 12/10/2022 by Lacie England MD at OR [facility] : ENDOSCOPY [id number] 07/02/2025 [id number] / / [id number] Clip Resolution 360 Endo 235cm - [id number] Implanted:Qty: 1 on 12/10/2022 by Lacie England MD at OR [facility] : ENDOSCOPY [id number] 07/02/2025 [id number] / / [id number] Stent Axios [id number] - [id number] Implanted:Qty: 1 on 12/10/2022 by Lacie England MD at OR [facility] : ENDOSCOPY [id number] 04/06/2023 [id number] / / [id number] documented as of this encounter Procedures Procedure [...] DIFFERENTIAL, TECHNOLOGIST REVIEW (07/29/2023 2:13 PM EDT) nRBCs 07/29/2023 2:54 PM EDT [facility] 56-02 Blood Venous blood specimen / Unknown Venipuncture / Unknown 07/29/2023 2:13 PM EDT 07/29/2023 2:26 PM EDT Sheri Hanson YARA LAB BLOOD ORDER [facility] [address]- [address] [place] [address] * (ABNORMAL) DIFFERENTIAL, AUTOMATED (07/29/2023 2:13 PM EDT) WBC 8.30 4.00 - 10.80 K/uL 07/29/2023 2:54 PM EDT [facility] 56-02 Neutrophils % 67.4 40.0 - 75.0 % 07/29/2023 2:54 PM EDT [facility] 56- Lymphocytes % 15.3(L) 18.0 - 42.0 % 07/29/2023 2:54 PM EDT [facility] 56-02 Monocytes % 11.0 1.0 - 11.0 % 07/29/2023 2:54 PM EDT [facility] 56-02 Eosinophils % 5.7 0.0 - 6.0 % 07/29/2023 2:54 PM EDT [facility] 56-02 Basophils % 0.6 0.0 - 2.0 % 07/29/2023 2:54 PM EDT [facility] 56-02 Absolute Neutrophils 5.97 1.80 - 7.70 K/uL 07/29/2023 2:54 PM EDT [facility] 56-02 Absolute Lymphocytes 1.35 1.00 - 4.80 K/ul 07/29/2023 2:54 PM EDT [facility] 56-02 Absolute Monocytes 0.97 0.00 - 1.10 K/uL 07/29/2023 2:54 PM EDT [facility] 56-02 Absolute Eosinophils 0.50 0.00 - 0.70 K/uL 07/29/2023 2:54 PM EDT [facility] 56-02 Absolute Basophils 0.05 0.00 - 0.20 K/uL 07/29/2023 2:54 PM EDT [facility] 56 Blood Venous blood specimen / Unknown Venipuncture / Unknown 07/29/2023 2:13 PM EDT 07/29/2023 2:26 PM EDT Sheri Hanson YARA LAB BLOOD ORDER [facility] [address] [place], [place] [id number] * (ABNORMAL) CBC (07/29/2023 2:13 PM EDT) WBC 8.30 4.00 - 10.80 K/uL 07/29/2023 2:54 PM EDT [facility] 56 RBC 3.78 4.50 - 5.25 M/uL 07/29/2023 2:54 PM EDT [facility] 56 HGB 12.4(L) 14.0 - 16.8 g/dL 07/29/2023 2:54 PM EDT [facility] 56 HCT 39.2(L) 40.0 - 48.4 % 07/29/2023 2:54 PM EDT [facility] 56 MCV 103.7 82.0 - 99.5 fL 07/29/2023 2:54 PM EDT [facility] 56 MCH 32.8 27.0 - 34.0 pg 07/29/2023 2:54 PM EDT [facility] 56 MCHC 31.6 32.0 - 36.0 g/dL 07/29/2023 2:54 PM EDT [facility] 56 RDW 15.9 11.5 - 15.5 % 07/29/2023 2:54 PM EDT [facility] 56- PLT 07/29/2023 2:54 PM EDT [facility] 56 Comment: Results rechecked. Decreased platelets seen on slide. Cannot quantitate due to platelet clumping. MPV 11.7 6.6 - 11.1 fL 07/29/2023 2:54 PM EDT [facility] 56 Blood Venous blood specimen / Unknown Venipuncture / Unknown 07/29/2023 2:13 PM EDT 07/29/2023 2:26 PM EDT Sheri LIV[facility]ON LAB BLOOD ORDER [facility] 56-45 [address] [place] [address] documented in this encounter Visit [...] ONCE PRN Other, Hypersensitivity Reaction, Starting on Tue07/29/23 at 1411, Until 07/30/23 at 1410, For 24 hours EPINEPHrine 1 MG/ML inj 0.3 mg 0.3 mg, Intramuscular, ONCE PRN Other, Hypersensitivity Reaction or Anaphylaxis, Starting on Tue07/29/23 at 1411, Until 07/30/23 at 1410, For 24 hours hEParin 100 UNIT/ML Lock Flush inj 500 Units 500 Units (5 mL), IV Lock, PRN Other, IV Flush, Starting on Tue07/29/23 at 1411, Until 07/30/23 at 1410, For 24 hours, Do not flush if lock, PICC, or central line not in place; IV infusing or unable to flush. Hydrocortisone Sod Suc (PF) (Solu-Cortef) inj 100 mg 100 mg, IV Push, ONCE PRN Other, Hypersensitivity Reaction, Starting on Tue07/29/23 at 1411, Until 07/30/23 at 1410, For 24 hours NSS infusion 500 mL, Intravenous, at 50 mL/hr, CONTINUOUS, Starting on Tue07/29/23 at 1515, Until 07/30/23 at 0114 Start Infusion 07/29/2023 2:23 PM EDT 500 mL 50 mL/hr oxygen GAS Inhalation, OXYGEN, First dose on Tue07/29/23 at 1600, Until Discontinued, Device/Managed by: Low [...] Push, PRN Other, IV Flush, Starting on Tue07/29/23 at 1411, Until 07/30/23 at 1410, For 24 hours, Do not [...] 2:24 PM EDT 300 mg 166.67 mL/hr documented in this encounter Advance Directives Documents on File Type Date Recorded Patient Scientific Manager Expl anation Power of Unit Reactor Operator 07/30/2022 POWER OF A TTORNEY Latest [...] and were consensually agreed upon. Care Teams Airline Flight Attendant Relationship Specialty Start Date End Date Jairo Kingston MD [address] [place] [address] PCP - General 12/21/05 documented as of this encounter
--- OUTSIDE RECORDS SUMMARY | 2023-09-03 23:20 | External Medical Summary ---
Author Name Unknown Address Unknown Organization [id number]:[facility] - [address] [place] [address] Laboratory Report Ordering Provider Test Date Status MANFRED RODRIGUEZ 07/29/2023 14:13:06 Final Observation Date Value Abnormality Reference (Units ) Status Vitamin B12 07/29/2023 14:13:06 491 271-4870 (pg/mL) Final Performing Location [facility] - [address] [place] [address]
--- OUTSIDE RECORDS SUMMARY | 2023-09-03 23:20 | External Medical Summary | Summary of Care ---
Author Name Unknown Organization [facility] Address [address] [place] [address] Phone [phone] Care Team Providers Care Banquet Coordinator Name Role Phone Lalo Carias MD Primary Care Provider [phone]- [phone] Reason for Visit * Reason Comments Medication Refill Encounter Details Date Type Department Care Team (Late st Contact Info) Description 07/29/2023 Refill [facility], [facility] 132 [facility] [place] [address] Lalo Carias MD [address] [place] [address] Allergies Active Allergy Reactions Criticality [...] 0.1 % Nasal Solution (Astelin) Administer 1 [place] into nostril in the morning and 1 [place] before bedtime. 30 mL 1 3 Active [...] 48 g 3 4 07/29/19 25 Active Fluticasone Propionate 50 MCG/ACT Nasal [...] ICD-10 update of inactive term ARTERIAL INSUFFICIENCY/ISCHE XIOAMRA, LEFT LITTLE FINGER 12/29/2001 07/28/2004 Tobacco use [...] Telephone Encounter - Lalo Carias MD - 07/29/2023 3:52 PM EDTSigned Prescriptions: Disp Refills Fluticasone Propionate 50 MCG/ACT Nasal Hassan*48 g 3 Sig: INSTILL 2 SPRAYS INTO EACH NOSTRIL EVERY DAY Authorizing Provider: LALO CARIAS * Telephone Encounter - Danna Mullen LPN - 07/29/2023 3:30 PM EDTPending Prescriptions: Disp Refills Fluticasone Propionate 50 MCG/ACT Nasal Hassan*48 g 3 Sig: INSTILL 2 SPRAYS INTO EACH NOSTRIL EVERY DAY * Telephone Encounter - Kathleen Sanchez LPN - 07/29/2023 8:24 AM EDT Did you pend patient's preferred pharmacy and medication before forwarding?yes Pharmacy: [facility] Pending Prescriptions: Disp Refills Fluticasone Propionate 50 MCG/ACT Nasal S*48 g 3 Sig: INSTILL 2 SPRAYS INTO EACH NOSTRIL EVERY DAY Last Visit: Visit date not found (in office), Visit date not found (telemedicine) Next Visit: 08/09/2023 If no future appointments scheduled, and last appointment is greater than a year ago, please schedule patient for a follow-up appointment Last date the medication was ordered: 05/02/23 Is this request for a controlled substance?No Urine Drug Screen:No results found. However, due [...] 02/08/2020 09:48 AM * Telephone Encounter - Zeyad Walter, [facility] - 07/29/2023 8:02 AM EDT Pending Prescriptions: Disp Refills Fluticasone Propionate 50 MCG/ACT Nasal Hassan*48 g 3 Sig: INSTILL2 SPRAYS INTO EACH NOSTRIL EVERY DAY documented in this encounter Plan of Treatment Upcoming Encounters Date Type Department Care Team (Late st Contact Info) Description 08/09/2023 10:00 AM EDT Home Visit [facility], [facility] [address] [address] Jenifer Linder, RN [address] [place] [address] 08/26/2023 2:00 PM EDT Hem/Onc Treatment Hematology/Oncology Treatment, [place] [address] [place] [phone] Hannah, Chair 6 Hem Onc [address] [address] 09/23/2023 2:00 PM EDT Hem/Onc Treatment Hematology/Oncology Treatment, [place] [address] [place] [phone] Hannah, Chair 3 Hem Onc [address] [place], [place] [address] 10/10/2023 9:00 AM EDT Office Visit [place] [address] [place] [phone] Lalo Carias MD [address] [place] [address] 11/30/2023 8:30 AM EDT Procedure Only Endoscopy, [facility] [address] [place] [address] Lacie England MD [address] [place] [address] 12/13/2023 3:00 PM EDT Office Visit Nephrology, [address] [place] [address] Reggie Azevedo MD [address] [place] [address] 01/19/2024 4:45 PM EDT Imaging Radiology [facility] [address] [facility], [place] [address] [place] [address] 03/28/2024 3:20 PM EST Office Visit Sleep Disorders Ctr [facility] [address] [place] [phone] Shanika Fitzgerald, DO [address] [place] [address] Scheduled Procedures Name Priority Associated Diagnoses Date/Ti [...] this encounter Medical Devices Implanted Type Area Electronic Heat Seal Operator Device Identifier Shelf Expiration Date Model / Serial / Lot Graft Hemasheild 20mm [id number] - [id number] Implanted:Qty: 1 on 01/13/[address] [facility] N/A: Abdomen MICROVASIVE [id number] / / [id number] Clip Resolution 360 Endo 235cm - [id number] Implanted:Qty: 1 on 12/10/2022 by Lacie England MD at OR [facility] [employer] : ENDOSCOPY [id number] 07/02/2025 [id number] / / [id number] Clip Resolution 360 Endo 235cm - [id number] Implanted:Qty: 1 on 12/10/2022 by Lacie England MD at OR [facility] : ENDOSCOPY [id number] 07/02/2025 [id number] / / [id number] Stent Axios [id number] - [id number] Implanted:Qty: 1 on 12/10/2022 by Lacie England MD at OR [facility] : ENDOSCOPY [id number] 04/06/2023 [id number] / / [id number] documented as of this encounter Advance Directives Documents on File Type Date Recorded Patient Snagger Expl anation Power of Battery Tester And Repairer 07/30/2022 POWER OF A TTORNEY Latest [...] and were consensually agreed upon. Care Teams Banquet Coordinator Relationship Specialty Start Date End Date Lalo Carias MD [address] [place] [address] PCP - General 12/21/05 documented as of this encounter
--- OUTSIDE RECORDS SUMMARY | 2023-09-03 23:20 | External Medical Summary ---
Author Name Unknown Address Unknown Organization K09:[facility] [place] [address] Laboratory Report Ordering Provider Test Date Status LOLLY ALEGRIA 07/29/2023 14:13:06 Final Observation Date Value Abnormality Reference (Units ) Status SYNC LEUKOCYTES IN BLOOD BY AUTOMATED COUNT 07/29/2023 14:13:06 8.30 4.00-10.80 (K/uL) Final Segs 07/29/2023 14:13:06 67.4 40.0-75.0 (%) Final Lymphs % 07/29/2023 14:13:06 15.3 Below low normal 18.0-42.0 (%) Final Monos 07/29/2023 14:13:06 11.0 1.0-11.0 (%) Final Eosinophils 07/29/2023 14:13:06 5.7 0.0-6.0 (%) Final Basos 07/29/2023 14:13:06 0.6 0.0-2.0 (%) Final Absolute Segs 07/29/2023 14:13:06 5.97 1.80-7.70 (K/uL) Final Lymphs, absolute 07/29/2023 14:13:06 1.35 1.00-4.80 (K/ul) Final Monos, Abs 07/29/2023 14:13:06 0.97 0.00-1.10 (K/uL) Final Eos, Abs 07/29/2023 14:13:06 0.50 0.00-0.70 (K/uL) Final Basos, Abs 07/29/2023 14:13:06 0.05 0.00-0.20 (K/uL) Final Performing Location [facility] [place] [address]
--- OUTSIDE RECORDS SUMMARY | 2023-09-03 23:20 | External Medical Summary ---
Author Name Unknown Address Unknown Organization K01:LABORATORY [facility] [place] - [address] [address] Laboratory Report Ordering Provider Test Date Status LOLLY ALEGRIA 07/29/2023 14:13:06 Final Observation Date Value Abnormality Reference (Units ) Status Iron 07/29/2023 14:13:06 57 45-176 (ug /dL) Final Iron-binding capacity 07/29/2023 14:13:06 274 250-425 (ug/dL) Final Transferrin Sat % 07/29/2023 14:13:06 21 15 -55 (%) Final Performing Location LABORATORY [facility] - [address] [address]
--- OUTSIDE RECORDS SUMMARY | 2023-09-03 23:20 | External Medical Summary ---
Author Name Unknown Address Unknown Organization [id number]:[facility] [address] Laboratory Report Ordering Provider Test Date Status LOLLY ALEGRIA 07/29/2023 14:13:06 Final Observation Date Value Abnormality Reference (Units ) Status WBC, Total 07/29/2023 14:13:06 8.30 4.00-10.8 0 (K/uL) Final RBC 07/29/2023 14:13:06 3.78 4.50-5.25 (M/uL) Final Hemoglobin 07/29/2023 14:13:06 12.4 Below low normal 14 .0-16.8 (g/dL) Final HCT 07/29/2023 14:13:06 39.2 Below low normal 40. 0-48.4 (%) Final MCV 07/29/2023 14:13:06 103.7 82.0-99.5 (fL) Final MCH 07/29/2023 14:13:06 32.8 27.0-34.0 (pg) Final MCHC 07/29/2023 14:13:06 31.6 32.0-36.0 (g/dL) Final RDW 07/29/2023 14:13:06 15.9 11.5-15.5 (%) Final Platelets 07/29/2023 14:13:06 Final Results rechecked.

Decreased platelets seen on slide. Cannot quantitate due to platelet clumping.
MPV 07/29/2023 14:13:06 11.7 6.6-11.1 ( fL) Final Performing Location [facility] [address]
--- OUTSIDE RECORDS SUMMARY | 2023-09-03 23:20 | External Medical Summary ---
Author Name Unknown Address Unknown Organization K01:[facility] - [address] [address] Laboratory Report Ordering Provider Test Date Status LOLLY ALEGRIA 07/29/2023 14:13:06 Final Observation Date Value Abnormality Reference (Units ) Status Ferritin 07/29/2023 14:13:06 463 Above high normal 30 -400 (ng/mL) Final Performing Location [facility] - [address] [place] [address]
--- NOTE | 2023-09-04 17:21 | Hospitalist Progress Note ---
Date of Service September 04, 2023 Assessment & Plan (1) COPD (chronic obstructive pulmonary disease): (2) Current use of [facility] antico[facility]: (3) SOB (shortness of breath): (4) History of GI bleed: (5) Chronic respiratory failure with hypoxia, on home O2 therapy: (6) CKD (chronic kidney disease): (7) Shaggy aorta syndrome: (8) MGUS (monoclonal gammopathy of unknown significance): Plan per admitting service notes with addendum: Mikhail Fung is a 72y/o M with PMHx of hyperlipidemia, hyperparathyroidism, idiopathic chronic gout, COPD, GINNY on CPAP, HTN, left renal artery stenosis, abdominal aortic aneurysm, severe aortic stenosis, chronic diastolic CHF, shaggy aorta syndrome, chronic kidney stage IV, iron deficiency anemia due to chronic blood loss, Waldenstrm's macroglobulinemia, history of AAA repair, history of SVT, history of biliary stent insertion, hx of GI bleed and other medical problems listed below presenting with SOB x 2 days. FINAL ASSESSMENT AND PLAN as follows : Shortness of breath secondary to COPD exacerbation, complicated bronchitis hx chronic respiratory failure secondary to COPD on home O2, GINNY/nocturnal hypoxemia on CPAP No sepsis for now - 1. Emphysema without acute intrathoracic abnormality. 2. Chronic scarring with atelectasis. 3. 8 mm solid nodule of the right lower lobe appears new from prior. Follow-up guidelines below. 4. Extensive atherosclerosis with areas of aneurysmal dilation of the thoracic aorta re demonstrated measuring up to 5.8 cm, unchanged from 04/22/2023. 5. No lymphadenopathy. Please refer to below summary of Fleischner criteria recommendations for follow- up of incidental CT nodules (Bert Whipple, Guidelines for management of small pulmonary nodules detected on CT scans: A statement from the Fleischner Society, Radiology 237: [phone].) -Clinically improving On [address] chest no pneumonia, pleural effusion Continue prednisone, nebs, Augmentin plus doxycycline Continue usual home inhalers 09/03 Continues to improve Continue prednisone, nebs, antibiotics Continue home inhalers Troponin elevation secondary to illness in the setting of chronic kidney dysfunction ACS ruled out Chronic diastolic heart failure (EF 65%, TTE 2022) Euvolemic history PSVT valvular heart disease (severe , mild AR),patient not a surgical candidate as per outpatient notes history TAA AAA status post surgery 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 Eliquis Full code Anticipate discharge to home medically stable Admission and Anticipated Discharge Date Admission Date: September 03, 2023 Subjective Follow-up for TECHNOLOGIES DIVISION CHAIR exacerbation, acute bronchitis, etc. Seen resting in bed side chair, comfortable, in good spirits On 2 L of O2 via nasal cannula States he is feeling better overall Less cough, able to expectorate more sputum No chest pain No abdominal pain No other new symptoms Review of Systems Review of Systems: all noted and negative except for above Physical Exam Physical Exam: General- oriented x 3, not in distress, speaks in sentences with no effort or accessory muscle use Eyes- anicteric Neck- no JVD Lungs- clear breath sounds bilaterally, mild Intermittent rhonchi at the bases Heart- normal rate, regular rhythm; no murmurs Abdomen- normal bowel sounds, nondistended, soft, nontender Extremities- no pretibial edema, no calf tenderness Neuro- alert, oriented x 3; no gross focal neurologic deficits Skin- warm & dry Results & Data Results & Data Vital Signs (Past 12 Hours) Vital Signs Temp Pulse Pulse Resp BP Pulse Ox O2 Del Method 09/04/23 15:25 65 09/04/23 14:15 83 18 95 Nasal Cannula 09/04/23 11:52 36.4 C L 65 16 129/75 92 Nasal Cannula 09/04/23 11:09 81 18 95 Nasal Cannula 09/04/23 09:52 59 L 09/04/23 07:35 36.5 C 59 L 16 117/65 97 Nebulizer 09/04/23 07:04 81 18 94 Nasal Cannula O2 Flow Rate 09/04/23 15:25 09/04/23 14:15 3 09/04/23 11:52 3 09/04/23 11:09 3 09/04/23 09:52 09/04/23 07:35 09/04/23 07:04 2 all noted and reviewed including below
--- NOTE | 2023-09-05 10:32 | Hospitalist Progress Note ---
Date of Service September 05, 2023 Assessment & Plan (1) COPD (chronic obstructive pulmonary disease): Plan: (1) COPD (chronic obstructive pulmonary disease): (2) Current use of custodial anticoagulation: (3) SOB (shortness of breath): (4) History of GI bleed: (5) Chronic respiratory failure with hypoxia, on home O2 therapy: (6) CKD (chronic kidney disease): (7) Shaggy aorta syndrome: (8) MGUS (monoclonal gammopathy of unknown significance): Plan per admitting service notes with addendum: Mikhail Fung is a 72y/o M with PMHx of hyperlipidemia, hyperparathyroidism, idiopathic chronic gout, COPD, GINNY on CPAP, HTN, left renal artery stenosis, abdominal aortic aneurysm, severe aortic stenosis, chronic diastolic CHF, shaggy aorta syndrome, chronic kidney stage IV, iron deficiency anemia due to chronic blood loss, Waldenstrm's macroglobulinemia, history of AAA repair, history of SVT, history of biliary stent insertion, hx of GI bleed and other medical problems listed below presenting with SOB x 2 days. FINAL ASSESSMENT AND PLAN as follows : Shortness of breath secondary to COPD exacerbation, complicated bronchitis hx chronic respiratory failure secondary to COPD on home O2, GINNY/nocturnal hypoxemia on CPAP No sepsis for now - 1. Emphysema without acute intrathoracic abnormality. 2. Chronic scarring with atelectasis. 3. 8 mm solid nodule of the right lower lobe appears new from prior. Follow-up guidelines below. 4. Extensive atherosclerosis with areas of aneurysmal dilation of the thoracic aorta re demonstrated measuring up to 5.8 cm, unchanged from 04/22/2023. 5. No lymphadenopathy. Please refer to below summary of Fleischner criteria recommendations for follow- up of incidental CT nodules (Bert Whipple, Guidelines for management of small pulmonary nodules detected on CT scans: A statement from the Fleischner Society, Radiology 237: [id number].) -Clinically improving On [address] chest no pneumonia, pleural effusion Continue prednisone, nebs, Augmentin plus doxycycline Continue usual home inhalers 09/03 Continues to improve Continue prednisone, nebs, antibiotics Continue home inhalers 09/04 Back to baseline 2 L of O2 Discharge on: Prednisone 20 mg daily x 2 more days Doxycycline twice daily x 4 more days Nebs 3 times daily PCP follow-up in 1 week Troponin elevation secondary to illness in the setting of chronic kidney dysfunction ACS ruled out Chronic diastolic heart failure (EF 65%, TTE 2022) Euvolemic history PSVT valvular heart disease (severe , mild AR),patient not a surgical candidate as per outpatient notes history TAA AAA status post surgery 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 Eliquis Full code Discharge to home PCP follow-up in 1 week Admission and Anticipated Discharge Date Admission Date: September 03, 2023 Subjective Follow-up for COPD exacerbation, acute bronchitis, etc. Seen resting in bed side chair, comfortable In good spirits States he feels fine overall Breathing is much better Minimal cough, no sputum production No chest pain, palpitations, dizziness No other new symptoms Review of Systems Review of Systems: all noted and negative except for above Physical Exam Physical Exam: General- oriented x 3, not in distress, speaks in sentences with no effort or accessory muscle use Eyes- anicteric Neck- no JVD Lungs- clear breath sounds bilaterally, no rales/wheezes Heart- normal rate, regular rhythm; no murmurs Abdomen- normal bowel sounds, nondistended, soft, nontender Extremities- no pretibial edema, no calf tenderness Neuro- alert, oriented x 3; no gross focal neurologic deficits Skin- warm & dry Results & Data Results & Data Vital Signs (Past 12 Hours) Vital Signs Temp Pulse Pulse Resp BP Pulse Ox O2 Del Method 09/05/23 08:00 Nasal Cannula 09/05/23 07:59 36.3 C L 70 18 152/78 H 93 Nasal Cannula 09/05/23 07:18 64 09/05/23 06:59 67 18 96 Nasal Cannula 09/05/23 03:06 36.5 C 68 18 134/76 94 Nasal Cannula 09/04/23 23:18 36.5 C 74 18 150/80 H 93 Nasal Cannula O2 Flow Rate 09/05/23 08:00 3 09/05/23 07:59 2 09/05/23 07:18 09/05/23 06:59 2 09/05/23 03:06 2 09/04/23 23:18 2 all noted and reviewed including below
--- NOTE | 2023-09-05 10:44 | Discharge Summary ---
Discharge Summary Date of Service September 05, 2023 Notes For Next Care Provider Medication Changes From Visit Prednisone-steroid for COPD exacerbation Doxycycline-antibiotic for acute bronchitis Mucinex-for cough Lactobacillus-probiotics to prevent diarrhea while taking antibiotic Admission HPI Per Admitting Provider Mikhail Fung is a 72y/o M with PMHx of hyperlipidemia, hyperparathyroidism, idiopathic chronic gout, COPD, GINNY on CPAP, HTN, left renal artery stenosis, abdominal aortic aneurysm, severe aortic stenosis, chronic diastolic CHF, shaggy aorta syndrome, chronic kidney stage IV, iron deficiency anemia due to chronic blood loss, Waldenstrm's macroglobulinemia, history of AAA repair, history of SVT, history of biliary stent insertion, hx of GI bleed and other medical problems listed below presenting with SOB x 2 days. History obtained from patient, and associated ED/PCP specialist records. Patient seen at beside, and is accompanied in the room by his daughter. Daughter reports that he has been "feeling ill" for the past week. Patient reports sinus congestion, rhinorrhea and an intermittent productive cough for the past week. He notes that the sputum he produces when coughing is clear/light yellow in appearance. He states that the SOB started yesterday. He notes increased SOB w/ exertion and SOB at rest as well. He reports that he has been sleeping in a recliner with his head inclined, which is normal for him at baseline. He has not been able to sleep lying flat for "a really long time," as he experiences some difficulty breathing when trying to do so. He denies any LE swelling, chest pain, recent sick contacts, bowel habits changes or urinary changes. He further denies any recent vision changes associated with the episodes of dizziness. Patient does use a walker at baseline, and lives with his at home. His daughter reports that she frequently checks on him at home. He denies any recent fevers, body aches or chills. He does endorse some intermittent left UE numbness that resolves rather quickly w/ no intervention. He also reports that his feet feel like they are "asleep." Patient has had no recent falls. Patient reports that this doesn't feel like a typical COPD flare. Patient is compliant with Lasix therapy at home. Most recent echo performed 01/27/23. Displayed the following: LV wall thickness moderately increased (concentric), LV EF 55-59%, severe aortic valve stenosis and mild aortic valve regurgitation. Head CT performed in the ED displayed no acute intracranial findings. Admission Exam Per Admitting Provider General Appearance: Patient is awake, resting comfortably in bed w/ incline of his head. Some conversational dyspnea noted. He is hard of hearing. Head: Normocephalic, atraumatic. Eyes: Normal inspection, PERRL, conjunctivae normal, anicteric sclerae. ENT: External ear and nose normal, oropharynx normal. Does not appear dry on exam. Neck: Normal visual inspection, trachea midline, no thyromegaly. Respiratory: Breath sounds diminished bilaterally, scattered rales at both lung bases. Cardiovascular: Regular rate, rhythm, normal peripheral pulses, no BLE edema. Vessels: No JVD. Chest: Normal inspection of chest. Abdomen/GI: Normal bowel sounds, soft, nontender, no hepatosplenomegaly. Extremities/Musculoskeletal: No cyanosis or clubbing, extremities motor strength 5/5. Neurologic: PERRL, EOMI, accommodation nl, no face palsy, no dysarthria, CN's II-XI grossly intact bilaterally and moves all extremities. Psychiatric: A+Ox3, euthymic affect. Skin: No rashes, normal color, warm/dry. Principal Dx & Hospital Course #1 = Principal Diagnosis (1) COPD (chronic obstructive pulmonary disease): (1) COPD (chronic obstructive pulmonary disease): (2) Current use of half-way anticoagulation: (3) SOB (shortness of breath): (4) History of GI bleed: (5) Chronic respiratory failure with hypoxia, on home O2 therapy: (6) CKD (chronic kidney disease): (7) Shaggy aorta syndrome: (8) MGUS (monoclonal gammopathy of unknown significance): Plan per admitting service notes with addendum: Mikhail Fung is a 72y/o M with PMHx of hyperlipidemia, hyperparathyroidism, idiopathic chronic gout, COPD, GINNY on CPAP, HTN, left renal artery stenosis, abdominal aortic aneurysm, severe aortic stenosis, chronic diastolic CHF, shaggy aorta syndrome, chronic kidney stage IV, iron deficiency anemia due to chronic blood loss, Waldenstrm's macroglobulinemia, history of AAA repair, history of SVT, history of biliary stent insertion, hx of GI bleed and other medical problems listed below presenting with SOB x 2 days. FINAL ASSESSMENT AND PLAN as follows : Shortness of breath secondary to COPD exacerbation, complicated bronchitis hx chronic respiratory failure secondary to COPD on home O2, GINNY/nocturnal hypoxemia on CPAP No sepsis for now - 1. Emphysema without acute intrathoracic abnormality. 2. Chronic scarring with atelectasis. 3. 8 mm solid nodule of the right lower lobe appears new from prior. Follow-up guidelines below. 4. Extensive atherosclerosis with areas of aneurysmal dilation of the thoracic aorta re demonstrated measuring up to 5.8 cm, unchanged from 04/22/2023. 5. No lymphadenopathy. Please refer to below summary of Fleischner criteria recommendations for follow- up of incidental CT nodules (Bert Whipple, Guidelines for management of small pulmonary nodules detected on CT scans: A statement from the Fleischner Society, Radiology 237: [phone].) -Clinically improving On [address] chest no pneumonia, pleural effusion Continue prednisone, nebs, Augmentin plus doxycycline Continue usual home inhalers 09/03 Continues to improve Continue prednisone, nebs, antibiotics Continue home inhalers 09/04 Back to baseline 2 L of O2 Discharge on: Prednisone 20 mg daily x 2 more days Doxycycline twice daily x 4 more days Mucinex twice daily x 4 days Nebs 3 times daily PCP follow-up in 1 week New pulmonary nodule 8 mm solid nodule of the right lower lobe appears new from prior. Follow-up guidelines below. 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 Eliquis Full code Discharge to home PCP follow-up in 1 week Discharge Exam General- oriented x 3, not in distress, speaks in sentences with no effort or accessory muscle use Eyes- anicteric Neck- no JVD Lungs- clear breath sounds bilaterally, no rales/wheezes Heart- normal rate, regular rhythm; no murmurs Abdomen- normal bowel sounds, nondistended, soft, nontender Extremities- no pretibial edema, no calf tenderness Neuro- alert, oriented x 3; no gross focal neurologic deficits Skin- warm & dry Updated Medication List Medication Instructions Recorded Confirmed Type albuterol sulfate 90 mcg/actuation 2 puff inhalation Q4H PRN 01/30/23 09/02/23 History aerosol inhaler Shortness Of Breath Or Wheezing allopurinol 300 mg tablet 150 mg PO DAILY 01/30/23 09/02/23 History atorvastatin 80 mg tablet 80 mg PO QAM 01/30/23 09/02/23 History azelastine 137 mcg (0.1 %) nasal 1 spray intranasal BID PRN Nasal 01/30/23 0 09/02/23 History spray aerosol Congestion cholecalciferol (vitamin D3) 50 50 mcg PO DAILY 01/30/23 09/02/23 History mcg (2,000 unit) tablet (Vitamin D3) docusate sodium 100 mg capsule 100 mg PO BID PRN Constipation 01/30/23 09/02/23 History ezetimibe 10 mg tablet 10 mg PO QAM 01/30/23 09/02/23 History furosemide 20 mg tablet 20 mg PO BID 01/30/23 09/02/23 History ipratropium 0.5 mg-albuterol 3 mg 3 ml inhalation Q6H PRN Shortness 01/30/23 09/02/23 History (2.5 mg base)/3 mL nebulization Of Breath Or Wheezing soln metoprolol tartrate 25 mg tablet 25 mg PO BID 01/30/23 09/02/23 History potassium chloride 10 mEq 10 meq PO 3XWK 01/30/23 09/02/23 History tablet,extended release(part/cryst) (Klor-Con M) fluticasone fur. 100 mcg-umeclid 1 inh inhalation QAM 02/15/23 09/02/23 History 62.5 mcg-vilant 25 mcg inhalat.powder (Trelegy Ellipta) ascorbic acid (vitamin C) 250 mg 125 mg PO QDL 04/21/23 09/02/23 History tablet fluticasone propionate 50 2 spray intranasal DAILY 04/21/23 09/02/23 History mcg/actuation nasal spray,suspension pantoprazole 40 mg tablet,delayed 40 mg PO AMHS #60 tabs 04/25/23 09/02/23 Rx release apixaban 2.5 mg tablet (Eliquis) 2.5 mg PO BID 09/02/23 09/02/23 History L.acidop,casei,lactis,rham-B.lact,allie 1 cap PO DAILY #14 caps 09/05/23 Rx 625 mg (10 billion cell) capsule (Advanced Probiotic) doxycycline hyclate 100 mg capsule 100 mg PO BID 4 days #8 caps 09/05/23 Rx guaifenesin 600 mg tablet, 600 mg PO Q12 4 days #8 tabs 09/05/23 Rx extended release 12 hr (Mucinex) prednisone 20 mg tablet 20 mg PO DAILY 2 days #2 tabs 09/05/23 Rx Hospital Stay Data Consultations 09/02/23 20:30 ED Decision to Admit Stat Diagnostic Imagining Performed Laboratory Results WBC 7.41 K/ul (4.8-10.8) 09/03/23 06:31 RBC 4.02 M/uL (4.70-6.10) L 09/03/23 06:31 Hgb 13.6 g/dl (14.0-18.0) L 09/03/23 06:31 Hct 41.9 % (42.0-52.0) L 09/03/23 06:31 MCV 104.2 fL (80.0-100.0) H 09/03/23 06:31 MCH 33.8 pg (25.0-34.0) 09/03/23 06:31 MCHC 32.5 g/dL (32.0-36.0) 09/03/23 06:31 RDW Std Deviation 59.1 fL (36.4-46.3) H 09/03/23 06:31 RDW Coeff of Chaka 15.1 % (11.5-14.5) H 09/03/23 06:31 Plt Count 223 K/uL (130-400) 09/03/23 06:31 MPV 10.8 fL (9.4-12.4) 09/03/23 06:31 Immature Gran % (Auto) 0.7 % 09/03/23 06:31 Neut % (Auto) 90.6 % 09/03/23 06:31 Lymph % (Auto) 6.7 % 09/03/23 06:31 [place] % (Auto) 1.5 % 09/03/23 06:31 Eos % (Auto) 0.0 % 09/03/23 06:31 Baso % (Auto) 0.5 % 09/03/23 06:31 Neut # (Auto) 6.71 K/uL (1.40-6.50) H 09/03/23 06:31 Lymph # (Auto) 0.50 K/uL (1.20-3.40) L 09/03/23 06:31 [place] # (Auto) 0.11 K/uL (0.11-0.59) 09/03/23 06:31 Eos # (Auto) 0.00 K/uL (0.00-0.50) 09/03/23 06:31 Baso # (Auto) 0.04 K/uL (0.00-0.20) 09/03/23 06:31 Immature Gran # (Auto) 0.05 K/uL (0.01-0.20) 09/03/23 06:31 Plt Count ,Citrate 177 K/uL (130-400) 09/02/23 18:49 PT 11.8 Seconds (9.0-12.0) 09/02/23 18:49 INR 1.1 (0.9-1.1) 09/02/23 18:49 APTT 29 Seconds (21-31) 09/02/23 18:49 PTT Ratio 1.1 09/02/23 18:49 VBG pH 7.41 (7.36-7.41) 09/02/23 19:46 VBG pCO2 40 mmHg (38-50) 09/02/23 19:46 VBG pO2 48 mmHg 09/02/23 19:46 VBG HCO3 25 mmol/L 09/02/23 19:46 VBG O2 Saturation 81.3 % 09/02/23 19:46 VBG Base Excess 0.7 mEq/L 09/02/23 19:46 Sodium 136 mmol/L (136-145) 09/03/23 06:31 Potassium 4.5 mmol/L (3.5-5.1) 09/03/23 07:43 Chloride 99 mmol/L (98-107) 09/03/23 06:31 Carbon Dioxide 26 mmol/L (21-32) 09/03/23 06:31 Anion Gap 11 (3-11) 09/03/23 06:31 BUN 36 mg/dl (6-23) H 09/03/23 06:31 Creatinine 2.26 mg/dl (0.6-1.4) H 09/03/23 06:31 Est Cr Clr Drug Dosing 29.5 ml/min 09/03/23 06:31 Est GFR ( Amer) 31.7 ml/min 09/03/23 06:31 Est GFR (Non-Af Amer) 27.4 ml/min 09/03/23 06:31 BUN/Creatinine Ratio 15.9 (10-20) 09/03/23 06:31 Glucose 146 mg/dl (70-99(Fasting)) H 09/03/23 06:31 POC Glucose 136 mg/dl (70-99) H 09/03/23 08:16 Calcium 9.5 mg/dl (8.6-10.3) 09/03/23 06:31 Magnesium 1.9 mg/dl (1.7-2.4) 09/02/23 18:49 Total Bilirubin 0.6 mg/dl (0.2-1.0) 09/02/23 18:49 AST 22 U/L (13-39) 09/02/23 18:49 ALT 20 U/L (7-52) 09/02/23 18:49 Alkaline Phosphatase 124 U/L (34-104) H 09/02/23 18:49 Troponin I High Sens 40.4 pg/ml (0-20) H 09/02/23 20:31 B-Natriuretic Peptide 201 pg/ml (0-100) H 09/02/23 18:49 Total Protein 7.5 gm/dl (6.0-8.3) 09/02/23 18:49 Albumin 4.0 gm/dl (3.4-5.0) 09/02/23 18:49 Globulin 3.5 gm/dl (2.5-4.0) 09/02/23 18:49 Albumin/Globulin Ratio 1.1 (0.9-2) 09/02/23 18:49 Urine Color Yellow 09/02/23 21:05 Urine Appearance Clear (Clear) 09/02/23 21:05 Urine pH 6.5 (4.5-7.5) 09/02/23 21:05 Ur Specific [place] 1.009 (1.000-1.030) 09/02/23 21:05 Urine Protein 2+ (Negative) H 09/02/23 21:05 Urine Glucose (UA) Negative (Negative) 09/02/23 21:05 Urine Ketones Negative (Negative) 09/02/23 21:05 Urine Blood Negative (Negative) 09/02/23 21:05 Urine Nitrite Negative (Negative) 09/02/23 21:05 Urine Bilirubin Negative (Negative) 09/02/23 21:05 Urine Urobilinogen Negative (Negative) 09/02/23 21:05 Ur Leukocyte Esterase Negative (Negative) 09/02/23 21:05 Urine WBC (Auto) 0-5 /hpf (0-5) 09/02/23 21:05 Urine RBC (Auto) 0-2 /hpf (0-2) 09/02/23 21:05 U Hyaline Cast (Auto) 0-2 /lpf (0-2) 09/02/23 21:05 U Epithel Cells (Auto) 0-2 /hpf (0-2) 09/02/23 21:05 Urine Bacteria (Auto) None Seen (None Seen) 09/02/23 21:05 Adenovirus (PCR) Not Detected (NotDetected) 09/02/23 20:10 B. pertussis DNA (PCR) Not Detected (NotDetected) 09/02/23 20:10 B.parapertussis DNA PCR Not Detected (NotDetected) 09/02/23 20:10 C. pneumoniae DNA (PCR) Not Detected (NotDetected) 09/02/23 20:10 Coronavirus OC43 (PCR) Not Detected (NotDetected) 09/02/23 20:10 Coronavirus HKU1 (PCR) Not Detected (NotDetected) 09/02/23 20:10 Coronavirus 229E (PCR) Not Detected (NotDetected) 09/02/23 20:10 SARS-CoV-2 (PCR) Not Detected (NotDetected) 09/02/23 20:10 Coronavirus NL63 (PCR) Not Detected (NotDetected) 09/02/23 20:10 Human Metapneumovir PCR Not Detected (NotDetected) 09/02/23 20:10 Influenza Type A (PCR) Not Detected (NotDetected) 09/02/23 20:10 Influenza Type B (PCR) Not Detected (NotDetected) 09/02/23 20:10 M. pneumoniae (PCR) Not Detected (NotDetected) 09/02/23 20:10 Parainfluenza 1 (PCR) Not Detected (NotDetected) 09/02/23 20:10 Parainfluenza 2 (PCR) Not Detected (NotDetected) 09/02/23 20:10 Parainfluenza 3 (PCR) Not Detected (NotDetected) 09/02/23 20:10 Parainfluenza 4 (PCR) Not Detected (NotDetected) 09/02/23 20:10 RSV (PCR) Not Detected (NotDetected) 09/02/23 20:10 Entero/Rhino (PCR) Not Detected (NotDetected) 09/02/23 20:10 Impressions Chest X-Ray 09/02/23 18:41 XR chest 1V portable HISTORY: 73 years-old Male Dyspnea acute shortness of breath COMPARISON: 07/21/2023 TECHNIQUE: AP view of the chest FINDINGS: Calcified pleural plaques in the left hemithorax redemonstrated. Cardiac silhouette is enlarged. Atherosclerosis of the aorta with aneurysmal dilation redemonstrated. Chronic interstitial worsening. No pneumothorax, large pleural effusion or lobar airspace consolidation. Pulmonary vascular congestion. Bones appear grossly intact. IMPRESSION: 1. Cardiomegaly with suggestion of mild pulmonary edema. 2. Calcified pleural plaques in the left hemithorax redemonstrated. ACT 112: Negative or not required by law. The above report was generated using voice recognition software. It may contain grammatical, syntax or spelling errors. Electronically signed by: Dawson Degroot M.D. 09/03/2023 7:[address] 09/02/23 18:41 Exam(s): CT HEAD Without Contrast EXAM: CT Head Without Intravenous Contrast CLINICAL HISTORY: Reason for exam: ataxia. TECHNIQUE: Axial computed tomography images of the head/brain without intravenous contrast. CTDI is 62.75 mGy and DLP is 1098.96 mGy-cm. Automated exposure control was utilized for the study. A dose lowering technique was utilized adhering to the principles of ALARA. COMPARISON: 07/21/23 FINDINGS: Brain: Chronic cortical infarcts right frontal lobe, right parietal lobe, and left occipital lobe. Blair-white matter differentiation otherwise maintained. No hemorrhage, mass-effect, or parenchymal edema. Multiple chronic lacunar infarcts bilateral basal ganglia. Chronic right cerebellar infarct. Ventricles: Unremarkable. No hydrocephalus. Bones/joints: Unremarkable. No acute fracture. Soft tissues: Unremarkable. Vasculature: Intracranial atherosclerosis. Sinuses: Unremarkable as visualized. Mastoid air cells: Unremarkable as visualized. No mastoid effusion. Orbits: Bilateral lens replacements. IMPRESSION: No acute intracranial process. Electronically signed by: Socorro Amezcua M.D. 09/02/23 19:[address] 09/03/23 08:45 CT chest diagnostic wo con CT DOSE: 839.68 mGy.cm CLINICAL HISTORY: 73 years-old Male with r/o pneumonia, pleural effusion. Acute shortness of breath TECHNIQUE: Multiaxial CT images of the chest were performed without contrast. A dose lowering technique was utilized adhering to the principles of ALARA. COMPARISON: 01/27/2023, chest CT 04/22/2023 FINDINGS: Unremarkable thyroid. No lymphadenopathy. Gynecomastia. Atherosclerosis of the aorta with numerous areas of aneurysmal dilation. This includes the aortic arch which measures 5.8 cm transversely. Secondary aneurysms of the descending thoracic aorta measure up to 1.5 cm on image 170. Fusiform dilation of the descending thoracic aorta measures up to 5 cm. Extensive coronary artery calcifications. Heart is normal in size without pericardial effusion. There is no pneumothorax, pleural effusion or overt pulmonary edema. Emphysema with areas of scarring/fibrosis redemonstrated. Calcified pleural plaques of the left hemithorax. Chronic left lung volume loss. Chronic scarring with atelectasis of the lingula and left upper lobe. 8 mm linear nodule within the right lower lobe on image 176 appears new from prior. There is improved aeration of the right lung compared to the prior study. Moderate atelectasis versus scarring at the right lung base. Central airways are patent. Postoperative changes of the stomach and anterior abdominal wall redemonstrated. Unremarkable soft tissues. No acute fracture. IMPRESSION: 1. Emphysema without acute intrathoracic abnormality. 2. Chronic scarring with atelectasis. 3. 8 mm solid nodule of the right lower lobe appears new from prior. Follow-up guidelines below. 4. Extensive atherosclerosis with areas of aneurysmal dilation of the thoracic aorta redemonstrated measuring up to 5.8 cm, unchanged from 04/22/2023. 5. No lymphadenopathy. Please refer to below summary of Fleischner criteria recommendations for follow- up of incidental CT nodules (Bert Whipple, Guidelines for management of small pu lmonary nodules detected on CT scans: A statement from the Fleischner Society, Radiology 237: [phone].) SOLID NODULES Solitary nodule size: <6 mm * Low risk patients: no follow-up needed * high risk patients: optional CT at 12 months Solitary nodule size: 6-8 mm * Low risk patients: follow-up at 6-12 months, then consider further follow-up at 18-24 months * high risk patients: initial follow-up CT at 6-12 months and then at 18-24 months if no change Solitary nodule size: >8 mm * either low or high risk patients - consider follow-up CT at 3 months, and/or CT-PET, and/or biopsy Note: newly detected indeterminate nodule in persons 35 years of age or older. * Low risk patients: minimal or absent history of smoking and/or other known risk factors * high risk patients: history of smoking or of other known risk factors (e.g. first degree relative with lung cancer, or exposure to asbestos, radon, uranium) * if a nodule up to 8 mm is partly solid or is ground glass further follow-up is required after 24 months to exclude possible slow growing adenocarcinoma (KATHERINE) ACT 112: Negative or not required by law. Electronically signed by: Dawson Degroot M.D. 09/03/2023 10:08 AM Pending Results Patient Have Any Pending Studies at Discharge: No Discharge Instructions Given to Patient (Per Discharging Provider) PLEASE REFER TO YOUR NEW MEDICATION LIST AND FOLLOW INSTRUCTIONS CAREFULLY. YOUR NEW MEDICATIONS INCLUDE: Prednisone-steroid for COPD exacerbation Doxycycline-antibiotic for acute bronchitis Mucinex-for cough Lactobacillus-probiotics to prevent diarrhea while taking antibiotic PLEASE CALL YOUR PRIMARY CARE PHYSICIAN OR RETURN TO THE ER IF WITH WORSENING OF SYMPTOMS, INCLUDING Shortness of breath, cough, fevers or chills, wheezing, Etc. FOLLOW UP WITH PRIMARY CARE PHYSICIAN IN 1 WEEK. Total Time Total Time Spent Total Time Spent (In Minutes): 40 minutes
== END 2023-09-05 12:17 | disposition home or self-care (01) | DRG 191 ==
LOC: ED 18:29 → EDINP 18:29 → 2W 09-03 01:49

== ENCOUNTER 2023-09-13 21:46 | Inpatient (IN) ==
[2023-09-13 23:04] LABS: Hematocrit (blood only) 31.2 % (42.0-52.0); Mean Corpuscular Hemoglobin 33.8 pg (25.0-34.0); Mean Corpuscular Hgb Conc 32.1 g/dL (32.0-36.0); Mean Corpuscular Volume 105.4 fL (80.0-100.0); RDW Coefficient of Variation 15.1 % (11.5-14.5); RDW Standard Deviation 58.8 fL (36.4-46.3); Red Blood Count 2.96 M/uL (4.70-6.10); White Blood Count 9.97 K/ul (4.8-10.8)
[2023-09-13 23:10] LABS: Albumin Globulin Ratio 1.1 (0.9-2); Albumin Level 3.6 gm/dl (3.4-5.0); BUN Creatinine Ratio 19.8 (10-20); Bilirubin,Total 0.3 mg/dl (0.2-1.0); Calcium 8.4 mg/dl (8.6-10.3); Creatinine Clr Calc Pharmacy 29.1 ml/min; Est GFR (African American) 30.7 ml/min; Est GFR (Non-African American) 26.5 ml/min; Globulin 3.2 gm/dl (2.5-4.0); Total Protein 6.8 gm/dl (6.0-8.3)
[2023-09-13 23:39] LABS: Partial Thromboplastin Time 28 Seconds (21-31); Prothrombin Time 11.2 Seconds (9.0-12.0)
[2023-09-13] MEDS: PANTOprazole 40 MG in SYRINGE 0 ML IV ONE (23:46)
[2023-09-13] MEDS: FAMOTIDINE 20MG IV PUSH 20 MG/5 ML SYR IV STA (23:46)
--- NOTE | 2023-09-13 23:47 | Emergency Department Note ---
Impression & Plan Acute upper gastrointestinal bleeding, Anemia ED Provider Note NAME: ZULMA MERA AGE: 73 SEX: M : 1950 ARRIVES VIA: Walk-In INFORMANT: Patient, ED PROVIDER(S): Aaron Knight DO CHIEF COMPLAINT: Dark stool HPI: The patient is a 73-year-old male who presented to the emergency department for an evaluation of GI bleeding. The patient has a history of upper GI bleeding in the past. Over the last 48 hours she has been noticing dark stool. He gets some generalized weakness with exertion. He denies having any hematemesis. He has noticed no rectal bleeding. The patient denies having any abdominal pain. He was seen in our facility last fall for similar complaints. ROS: See above HPI for pertinent positives & negatives. A total of 10 systems reviewed and were otherwise negative. PAST MEDICAL HISTORY: See Below PAST SURGICAL HISTORY: See Below FAMILY HISTORY: See Below SOCIAL HISTORY: See Below HOME MEDICATIONS: See Below ALLERGIES: See Below VITALS: See Below PHYSICAL EXAMINATION: GENERAL: Patient is awake alert in no acute distress patient is resting comfortably and showing no signs of anxiety EYES: The conjunctivae are clear. The pupils are round and reactive. EARS, NOSE, MOUTH AND THROAT: The nose is without any evidence of any deformity. NECK: The neck is nontender and supple. RESPIRATORY: Normal respiratory effort is noted there is no evidence of wheezing rhonchi or rales CARDIOVASCULAR: Regular rate and rhythm was noted to auscultation. Systolic murmur suggested. GASTROINTESTINAL: The abdomen is soft. Abdomen is nontender. Rectal exam revealed black stool which was heme positive. MUSCULOSKELETAL/EXTREMITIES: There is no evidence of gross deformity full range of motion is noted in the hips and shoulders. SKIN: There is no obvious evidence of any rash. There are no petechiae, pallor or cyanosis noted. NEUROLOGIC: Patient is awake alert and oriented x3 MEDICAL DECISION MAKING: The patient is a 73-year-old male who presented to the emergency department for an evaluation of dark stool. The patient does have a history of upper GI bleeding in the past. He has had to have multiple areas in his upper GI tract clipped by gastroenterology. The last such time was last fall. The patient stated he wanted to come the emergency department before symptoms became much worse. The patient was found to have anemia but it was not severe enough to require blood transfusion at this time. I discussed patient's laboratory results with him. I discussed his condition with the on-call [facility] hospitalist. They have agreed to evaluate the patient in the emergency department for further management and disposition. Triage Nursing notes reviewed. Prior medical records reviewed Vital Signs: reviewed and remarkable for no significant abnormalities Differential diagnosis: Diverticulosis, AVM, coagulopathy, colitis, inflammatory bowel disease, malignancy, Linnette-Menendez tear, esophagitis, peptic ulcer disease, variceal bleed, gastritis, epistaxis, fissure, hemorrhoids, as well as other pathologies. ER treatment provided: See below Diagnostics interpreted by me: ECG: EKG was obtained in the emergency department. My interpretation is normal sinus rhythm at 74 bpm. There is no ectopy. There is no acute ST segment abnormalities noted. This was compared to a tracing from September 02, 2023. No changes were noted. Cardiac Monitoring: An order was placed for continuous cardiac monitoring. The monitor shows a rate of 70 bpm with sinus rhythm. Laboratory studies: As stated above and show below. Imaging studies: See below. Consultation(s): I discussed this case with Dr. Wright who is on-call for the [facility]. Past Med/Surg History Problem List Pulmonary edema (Acute) COPD (chronic obstructive pulmonary disease) exacerbation Dec 2022 - Hospitalized [facility] Dec 24-2022. Med change and effective since. Denies current issues. O2 2 L HS & PRN throughout day. Current use of assisted anticoagulation (Acute) SOB (shortness of breath) (Acute) Anemia (Acute) GI bleed (Acute) CVA (cerebral vascular accident) (Acute) Gout (Chronic) History of GI bleed Wide-complex tachycardia Sinus pause PFO (patent foramen ovale) History of tonsillectomy Labile blood pressure Acute respiratory failure with hypoxia Bronchitis GERD (gastroesophageal reflux disease) Acute on chronic kidney failure COPD exacerbation (Acute) Chronic respiratory failure with hypoxia, on home O2 therapy (Acute) Abnormal CXR Stage 3b chronic kidney disease (CKD) Anemia due to chronic kidney disease History of cholelithiasis (Acute) CKD (chronic kidney disease) (Acute) Chronic anemia (Acute) Acute kidney injury superimposed on chronic kidney disease Melena Acute GI bleeding (Acute) COPD with exacerbation (Acute) Acute upper GI bleed (Acute) Symptomatic anemia (Acute) Anemia requiring transfusions (Acute) Recurrent gastrointestinal hemorrhage Shaggy aorta syndrome SOB (shortness of breath) (Acute) Bronchitis (Acute) COPD exacerbation (Acute) Wheezing (Acute) Anemia (Acute) CRF (chronic renal failure) (Acute) Elevated troponin (Acute) Acute and chronic respiratory failure MGUS (monoclonal gammopathy of unknown significance) Goals of care, counseling/discussion Medical History Gastroparesis pt is not sure about this dx. History of colon polyps x1 a few yrs ago/follow up in 5 yrs. 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 Ascending thoracic aorta at the level of the right pulmonary artery 4.2 cm unchanged. 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 Descending thoracic aorta at the level of the left atrium again up to 4.[address] scan Dec 2022 - pt told everything was stable. 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 follows with Dr. Jefferson Gastric ulcer Hearing deficit BL NAILS Hx SBO History of GI bleed Stroke X 2 (LAST EVENT 05/2020) CONT. TO HAVE SLIGHT BALANCE ISSUES Sleep apnea CPAP Hx of gout PSVT (paroxysmal supraventricular tachycardia) Aortic stenosis Thoracic aortic atherosclerosis, densely calcified coronary arteries, severely calcified aortic valve, aneurysmal outpouching of the aortic arch. CKD (chronic kidney disease), stage III follows with [facility] nephrology Hyperlipidemia Hypertension Surgical History History of esophagogastroduodenoscopy (EGD) most recent a few months ago for a bleed, this is a follow up procedure. History of tooth extraction History of tonsillectomy and adenoidectomy pt not sure about adenoids. History of lumbar surgery 1999 S/P AAA repair 01/13/2009 - Dr Suazo ([facility]) Hx of colonoscopy Hx of hernia repair lysis of adhesions, incisional hernia repair laparoscopically 01/28/2010 at [facility] - Dr Desouza Family History Other AAA (abdominal aortic aneurysm) Hypertension No family history of adverse response to anesthesia Social History Smoking Status: Never smoker Tobacco Type: Cigarettes Age Started Using Tobacco: 18; Cigarettes Per Day: Former cigarette. Quit 1998; Second Hand Exposure: No; Do You Dip or Chew Tobacco: No; Hx Alcohol Use: Yes Alcohol type: beer Alcohol type Comment: 3 beers a day Hx Substance Use: No Preferred Language: Pashto Communication Ability: Effective Communication Ability Comment: pt communication effective Port Surveyor Required: No Beliefs That Will Affect Care: None marital status: Current Living Situation: Spouse Current Living Situation Comment: and daughter current occupational status: employed Feels Safe at Home: Yes Safety Concerns: Feels Safe At This Time Assistive Devices: CPAP, Hearing Aid - Bilateral and Oxygen - at Night Allergies Allergies Allergy/AdvReac Type Severity Reaction Status Date / Time RUBENS Inhibitors AdvReac Unknown DROPS Verified 05/05/23 13:26 BLOOD PRESSURE lisinopril AdvReac Unknown DROPS Verified 05/05/23 13:26 BLOOD PRESSURE Home Meds Home Medications Medication Instructions Recorded Confirmed albuterol sulfate 90 mcg/actuation 2 puff inhalation Q4H PRN Wheezing 01/30/23 09/14/23 aerosol inhaler allopurinol 300 mg tablet 150 mg PO DAILY 01/30/23 09/14/23 atorvastatin 80 mg tablet 80 mg PO QAM 01/30/23 09/14/23 azelastine 137 mcg (0.1 %) nasal 1 spray intranasal AMHS Nasal 01/30/23 09/14/23 spray aerosol Congestion cholecalciferol (vitamin D3) 50 50 mcg PO DAILY 01/30/23 09/14/23 mcg (2,000 unit) tablet (Vitamin D3) docusate sodium 100 mg capsule 100 mg PO BID PRN Constipation 01/30/23 09/14/23 ezetimibe 10 mg tablet 10 mg PO QAM 01/30/23 09/14/23 furosemide 20 mg tablet 20 mg PO BID 01/30/23 09/14/23 ipratropium 0.5 mg-albuterol 3 mg 3 ml inhalation Q6H PRN Shortness 01/30/23 09/14/23 (2.5 mg base)/3 mL nebulization Of Breath Or Wheezing soln metoprolol tartrate 25 mg tablet 25 mg PO BID 01/30/23 09/14/23 potassium chloride 10 mEq 10 meq PO 3XWK 01/30/23 09/14/23 tablet,extended release(part/cryst) (Klor-Con M) fluticasone fur. 100 mcg-umeclid 1 inh inhalation QAM 02/15/23 09/14/23 62.5 mcg-vilant 25 mcg inhalat.powder (Trelegy Ellipta) ascorbic acid (vitamin C) 250 mg 125 mg PO QDL 04/21/23 09/14/23 tablet fluticasone propionate 50 2 spray intranasal DAILY 04/21/23 09/14/23 mcg/actuation nasal spray,suspension apixaban 2.5 mg tablet (Eliquis) 2.5 mg PO BID 09/02/23 09/14/23 Previous Rx's Medication Instructions Recorded pantoprazole 40 mg tablet,delayed 40 mg PO AMHS #60 tabs 04/25/23 release L.acidop,casei,lactis,rham-B.lact,allie 1 cap PO DAILY #14 caps 09/05/23 625 mg (10 billion cell) capsule (Advanced Probiotic) Results & Data (ED) Vital Signs Vital Signs - 24 hr 09/13/23 22:01 09/13/23 22:31 09/13/23 22:52 Temperature 36.8 C Temperature Source Temporal Artery Scan Pulse Rate 74 73 Pulse Rate [Apical] 71 Pulse Strength [Apical] Normal Respiratory Rate 20 18 Respiratory Effort / Characteristics SOB on Exertion Respiratory Depth Respiratory Pattern Regular Blood Pressure 134/69 Blood Pressure [Right Arm] 141/81 H Blood Pressure Mean 90 Blood Pressure Mean [Right Arm] 101 Pulse Oximetry 93 98 Oxygen Delivery Method Nasal Cannula Nasal Cannula Oxygen Flow Rate 3 3 Sepsis Recent Fever Within 48 Hours No Sepsis New/Unexplained Change in Mental Status No Sepsis Action Taken by Nursing No Action Required 09/14/23 00:00 09/14/23 00:39 09/14/23 00:39 Temperature Temperature Source Pulse Rate Pulse Rate [Apical] 70 70 Pulse Strength [Apical] Respiratory Rate 18 18 Respiratory Effort / Characteristics Non-Labored Non-Labored Non-Labored Respiratory Depth Normal Normal Normal Respiratory Pattern Regular Regular Regular Blood Pressure Blood Pressure [Right Arm] 149/83 H 149/83 H Blood Pressure Mean Blood Pressure Mean [Right Arm] 105 105 Pulse Oximetry 98 100 Oxygen Delivery Method Nasal Cannula Nasal Cannula Nasal Cannula Oxygen Flow Rate 3 3 3 Sepsis Recent Fever Within 48 Hours Sepsis New/Unexplained Change in Mental Status Sepsis Action Taken by Half-Way Medications Current Medication List: was personally reviewed by me Laboratory Data Attestation: I reviewed the patient's lab results. 09/13/23 22:20 09/13/23 22:20 Lab Results 09/13/23 09/13/23 Range/Units 22:20 22:24 WBC 9.97 (4.8-10.8) K/ul RBC 2.96 L (4.70-6.10) M/uL Hgb 10.0 L (14.0-18.0) g/dl Hct 31.2 L (42.0-52.0) % MCV 105.4 H (80.0-100.0) fL MCH 33.8 (25.0-34.0) pg MCHC 32.1 (32.0-36.0) g/dL RDW Std Deviation 58.8 H (36.4-46.3) fL RDW Coeff of Chaka 15.1 H (11.5-14.5) % Plt Count (130-400) K/uL MPV Not Reportable Immature Gran % (Auto) 0.8 % Neut % (Auto) 70.2 % Lymph % (Auto) 11.9 % [place] % (Auto) 9.4 % Eos % (Auto) 7.0 % Baso % (Auto) 0.7 % Neut # (Auto) 6.99 H (1.40-6.50) K/uL Lymph # (Auto) 1.19 L (1.20-3.40) K/uL [place] # (Auto) 0.94 H (0.11-0.59) K/uL Eos # (Auto) 0.70 H (0.00-0.50) K/uL Baso # (Auto) 0.07 (0.00-0.20) K/uL Immature Gran # (Auto) 0.08 (0.01-0.20) K/uL Plt Count ,Citrate 146 (130-400) K/uL PT 11.2 (9.0-12.0) Seconds INR 1.0 (0.9-1.1) APTT 28 (21-31) Seconds PTT Ratio 1.0 Sodium 137 (136-145) mmol/L Potassium 4.0 (3.5-5.1) mmol/L Chloride 103 (98-107) mmol/L Carbon Dioxide 27 (21-32) mmol/L Anion Gap 7 (3-11) BUN 46 H (6-23) mg/dl Creatinine 2.32 H (0.6-1.4) mg/dl Est Cr Clr Drug Dosing 29.1 ml/min Est GFR ( Amer) 30.7 ml/min Est GFR (Non-Af Amer) 26.5 ml/min BUN/Creatinine Ratio 19.8 (10-20) Glucose 126 H (70-99(Fasting)) mg/dl Calcium 8.4 L (8.6-10.3) mg/dl Total Bilirubin 0.3 (0.2-1.0) mg/dl AST 21 (13-39) U/L ALT 20 (7-52) U/L Alkaline Phosphatase 90 (34-104) U/L Total Protein 6.8 (6.0-8.3) gm/dl Albumin 3.6 (3.4-5.0) gm/dl Globulin 3.2 (2.5-4.0) gm/dl Albumin/Globulin Ratio 1.1 (0.9-2) Blood Type A Positive Antibody Screen NEGATIVE Administered Medications Discontinued Medications Pantoprazole Sodium 40 mg/ (Syringe) 10 mls @ 5 mls/min IV NOW ONE Stop: 09/13/23 23:28 Last Admin: 09/13/23 23:46 Dose: 5 mls/min Documented By: CECIL Famotidine (Pepcid 20mg Iv Push) 20 mg in 5 mls @ 2.5 mls/min IV NOW STA Stop: 09/13/23 23:28 Last Admin: 09/13/23 23:46 Dose: 2.5 mls/min Documented By: CECIL Discharge Plan Visit Data Chief Complaint: GI Bleed Stated Complaint: BLOODY STOOL ED Provider: Aaron Knight Discharge Problem: Acute upper gastrointestinal bleeding, Anemia Patient Disposition: Being Evaluated by Hospitalist Forms Stand Alone Forms: [facility] Prescriptions Prescriptions: No Action Rachel Henryta 100-62.5-25 mcg blister with device 1 inh inhalation QAM fluticasone propionate 50 mcg/actuation spray,suspension 2 spray INTRANASAL DAILY ascorbic acid (vitamin C) 250 mg Tablet 125 mg PO QDL pantoprazole 40 mg tablet,delayed release (DR/EC) 40 mg PO AMHS Qty: 60 0RF atorvastatin 80 mg tablet 80 mg PO QAM Patient Comments: around 11 am or so. ipratropium-albuterol 0.5 mg-3 mg(2.5 mg base)/3 mL solution for nebulization 3 ml INHALATION Q6H PRN (Reason: Shortness Of Breath Or Wheezing) allopurinol 300 mg tablet 150 mg PO DAILY Patient Comments: around 11 am or so. furosemide 20 mg tablet 20 mg PO BID azelastine 137 mcg (0.1 %) aerosol,spray 1 spray INTRANASAL AMHS albuterol sulfate 90 mcg/actuation HFA aerosol inhaler 2 puff INHALATION Q4H PRN (Reason: Wheezing) ezetimibe 10 mg tablet 10 mg PO QAM potassium chloride [Klor-Con M10] 10 mEq tablet,ER particles/crystals 10 meq PO 3XWK Patient Comments: tue, tue and tue morning hours. Rx Instructions: on tue, tue and tuesday metoprolol tartrate 25 mg tablet 25 mg PO BID docusate sodium 100 mg Capsule 100 mg PO BID PRN (Reason: Constipation) cholecalciferol (vitamin D3) [Vitamin D3] 50 mcg (2,000 unit) Tablet 50 mcg PO DAILY Patient Comments: around 11 am . Eliquis 2.5 mg tablet 2.5 mg PO BID Advanced Probiotic 625 mg (10 billion cell) Capsule 1 cap PO DAILY Qty: 14 0RF Referrals Referrals: Jairo Kingston MD [Primary Care Provider] - Discharge Problem: Anemia Qualifiers: Anemia type: unspecified type Qualified Code(s): D64.9 - Anemia, unspecified
[2023-09-13 23:54] LABS: Basophils # (auto) 0.07 K/uL (0.00-0.20); Basophils % (auto) 0.7 %; Immature Granulocytes # (auto) 0.08 K/uL (0.01-0.20); Immature Granulocytes % (auto) 0.8 %; Lymphocytes # (auto) 1.19 K/uL (1.20-3.40); Lymphocytes % (auto) 11.9 %; Monocytes # (auto) 0.94 K/uL (0.11-0.59); Monocytes % (auto) 9.4 %; Neutrophils # (auto) 6.99 K/uL (1.40-6.50); Neutrophils % (auto) 70.2 %
--- NOTE | 2023-09-14 01:46 | History & Physical Report ---
Date of Service September 14, 2023 Assessment & Plan (1) GI bleed: Plan: 72-year-old male with past medical history significant for hyperlipidemia, hyperparathyroidism, idiopathic chronic gout, COPD on home oxygen 3 L, obstructive sleep apnea on CPAP, hypertension, left renal artery stenosis, abdominal aortic aneurysm, severe aortic stenosis, chronic diastolic CHF, shaggy aorta syndrome, chronic kidney stage IV, iron deficiency anemia due to chronic blood loss, Waldenstrm's macroglobulinemia, history of AAA repair, history of CVA, history of SVT, history of biliary stent insertion, multiple admission for GI bleed , EGD February 2023 showed 2 nonbleeding angioectasias in the stomach and was recently in the hospital for COPD exacerbation and acute complicated bronchitis presents today because of black stools. Denies abdominal pain. No nausea vomiting. Normal micturition. Denies chest pain or shortness of breath. Has some cough. Bringing some phlegm. No headache. No runny nose or sore throat. Hard of hearing. Hemodynamics are okay. Resting comfortably. GI bleed melena EGD in February 2023 showed 2 nonbleeding angiectasia's in the stomach hemoglobin 10 today was 13.6 few days back but baseline hemoglobin mostly around 10 blood consent obtained n.p.o. gentle fluids Protonix drip H&H every 6 hours telemetry GI consult in the a.m. 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 currently on Eliquis (dose reduced for gi bleed) to be held for GI bleed seems antiplatelets were stopped because of the GI bleeds in the past and as per cardiology notes if recurrent TIA/ CVA can consider adding back s/p AAA surgery descending thoracic aortic aneurysm follow-up with vascular surgery history of PSVT on metoprolol CKD stage IV presented with creatinine of 2.32 which is around baseline hypertension on metoprolol we will monitor hyperlipidemia restart statin and Zetia after procedure gout restart allopurinol after procedure DVT prophylaxis holding Eliquis SCDs disposition telemetry full code History of Present Illness Chief Complaint: GI bleed Primary Care Provider: Jairo Kingston MD 72-year-old male with past medical history significant for hyperlipidemia, hyperparathyroidism, idiopathic chronic gout, COPD on home oxygen 3 L, obstructive sleep apnea on CPAP, hypertension, left renal artery stenosis, abdominal aortic aneurysm, severe aortic stenosis, chronic diastolic CHF, shaggy aorta syndrome, chronic kidney stage IV, iron deficiency anemia due to chronic blood loss, Waldenstrm's macroglobulinemia, history of AAA repair, history of CVA, history of SVT, history of biliary stent insertion, multiple admission for GI bleed , EGD February 2023 showed 2 nonbleeding angioectasias in the stomach and was recently in the hospital for COPD exacerbation and acute complicated b ronchitis presents today because of black stools. Denies abdominal pain. No nausea vomiting. Normal micturition. Denies chest pain or shortness of breath. Has some cough. Bringing some phlegm. No headache. No runny nose or sore throat. Hard of hearing. Hemodynamics are okay. Resting comfortably. Past med history. As mentioned above Past surgical history. Abdominal aortic aneurysm repair, colonoscopy with biopsy, EGD, EGD with cyst drainage, EGD with endoscopic ultrasound, ERCP, incisional hernia repair and lysis of adhesions laparoscopically. Lumbar disc excision, tonsillectomy, tear duct system surgery. Social history. . Quit smoking in 2008. Smoked 1 pack a day for 35 years. Alcohol 3 standard drinks per week. No drug use. Family history. Father had AAA. Mother had dialysis. Brother hypertension. Heart disease. Sister has heart disease. Allergies Allergy/AdvReac Type Severity Reaction Status Date / Time RUBENS Inhibitors AdvReac Unknown DROPS Verified 05/05/23 13:26 BLOOD PRESSURE lisinopril AdvReac Unknown DROPS Verified 05/05/23 13:26 BLOOD PRESSURE Home Medications Medication Instructions Recorded Confirmed Type albuterol sulfate 90 mcg/actuation 2 puff inhalation Q4H PRN Wheezing 01/30/23 09/14/23 History aerosol inhaler allopurinol 300 mg tablet 150 mg PO DAILY 01/30/23 09/14/23 History atorvastatin 80 mg tablet 80 mg PO QAM 01/30/23 09/14/23 History azelastine 137 mcg (0.1 %) nasal 1 spray intranasal AMHS Nasal 01/30/23 09/14/23 History spray aerosol Congestion cholecalciferol (vitamin D3) 50 50 mcg PO DAILY 01/30/23 09/14/23 History mcg (2,000 unit) tablet (Vitamin D3) docusate sodium 100 mg capsule 100 mg PO BID PRN Constipation 01/30/23 09/14/23 History ezetimibe 10 mg tablet 10 mg PO QAM 01/30/23 09/14/23 History furosemide 20 mg tablet 20 mg PO BID 01/30/23 09/14/23 History ipratropium 0.5 mg-albuterol 3 mg 3 ml inhalation Q6H PRN Shortness 01/30/23 09/14/23 History (2.5 mg base)/3 mL nebulization Of Breath Or Wheezing soln metoprolol tartrate 25 mg tablet 25 mg PO BID 01/30/23 09/14/23 History potassium chloride 10 mEq 10 meq PO 3XWK 01/30/23 09/14/23 History tablet,extended release(part/cryst) (Klor-Con M) fluticasone fur. 100 mcg-umeclid 1 inh inhalation QAM 02/15/23 09/14/23 History 62.5 mcg-vilant 25 mcg inhalat.powder (Trelegy Ellipta) ascorbic acid (vitamin C) 250 mg 125 mg PO QDL 04/21/23 09/14/23 History tablet fluticasone propionate 50 2 spray intranasal DAILY 04/21/23 09/14/23 History mcg/actuation nasal spray,suspension pantoprazole 40 mg tablet,delayed 40 mg PO AMHS #60 tabs 04/25/23 09/14/23 Rx release apixaban 2.5 mg tablet (Eliquis) 2.5 mg PO BID 09/02/23 09/14/23 History L.acidop,casei,lactis,rham-B.lact,allie 1 cap PO DAILY #14 caps 09/05/23 09/14/23 Rx 625 mg (10 billion cell) capsule (Advanced Probiotic) Past Med/Surg History Problem List Pulmonary edema (Acute) COPD (chronic obstructive pulmonary disease) exacerbation Dec 2022 - Hospitalized [facility] Dec 24-2022. Med change and effective since. Denies current issues. O2 2 L HS & PRN throughout day. Current use of long-term anticoagulation (Acute) SOB (shortness of breath) (Acute) Anemia (Acute) GI bleed (Acute) CVA (cerebral vascular accident) (Acute) Gout (Chronic) History of GI bleed Wide-complex tachycardia Sinus pause PFO (patent foramen ovale) History of tonsillectomy Labile blood pressure Acute respiratory failure with hypoxia Bronchitis GERD (gastroesophageal reflux disease) Acute on chronic kidney failure COPD exacerbation (Acute) Chronic respiratory failure with hypoxia, on home O2 therapy (Acute) Abnormal CXR Stage 3b chronic kidney disease (CKD) Anemia due to chronic kidney disease History of cholelithiasis (Acute) CKD (chronic kidney disease) (Acute) Chronic anemia (Acute) Acute kidney injury superimposed on chronic kidney disease Melena Acute GI bleeding (Acute) COPD with exacerbation (Acute) Acute upper GI bleed (Acute) Symptomatic anemia (Acute) Anemia requiring transfusions (Acute) Recurrent gastrointestinal hemorrhage Shaggy aorta syndrome SOB (shortness of breath) (Acute) Bronchitis (Acute) COPD exacerbation (Acute) Wheezing (Acute) Anemia (Acute) CRF (chronic renal failure) (Acute) Elevated troponin (Acute) Acute and chronic respiratory failure MGUS (monoclonal gammopathy of unknown significance) Goals of care, counseling/discussion Medical History Gastroparesis pt is not sure about this dx. History of colon polyps x1 a few yrs ago/follow up in 5 yrs. 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 Ascending thoracic aorta at the level of the right pulmonary artery 4.2 cm unchanged. 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 Descending thoracic aorta at the level of the left atrium again up to 4.[address] scan Dec 2022 - pt told everything was stable. 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 follows with Dr. Jefferson Gastric ulcer Hearing deficit BL NAILS Hx SBO History of GI bleed Stroke X 2 (LAST EVENT 05/2020) CONT. TO HAVE SLIGHT BALANCE ISSUES Sleep apnea CPAP Hx of gout PSVT (paroxysmal supraventricular tachycardia) Aortic stenosis Thoracic aortic atherosclerosis, densely calcified coronary arteries, severely calcified aortic valve, aneurysmal outpouching of the aortic arch. CKD (chronic kidney disease), stage III follows with [facility] nephrology Hyperlipidemia Hypertension Surgical History History of esophagogastroduodenoscopy (EGD) most recent a few months ago for a bleed, this is a follow up procedure. History of tooth extraction History of tonsillectomy and adenoidectomy pt not sure about adenoids. History of lumbar surgery 1999 S/P AAA repair 01/13/2009 - Dr Suazo ([facility] YEARLY AT [facility]) Hx of colonoscopy Hx of hernia repair lysis of adhesions, incisional hernia repair laparoscopically 01/28/2010 at [facility] - Dr Desouza Family History Other AAA (abdominal aortic aneurysm) Hypertension No family history of adverse response to anesthesia Social History Smoking Status: Never smoker Tobacco Type: Cigarettes Age Started Using Tobacco: 18; Cigarettes Per Day: Former cigarette. 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 ENT- oropharynx clear Neck- supple, no JVD. Lungs- clear to auscultation no wheezing or crackles Heart- regular rhythm; no murmur, no gallop. Abdomen- normal bowel sounds, soft, nontender, no distension. Extremities- trace pretibial edema present no erythema seen Neuro- alert, oriented ; PERRL,no facial palsy; no dysarthria; moves extremities. Skin- warm & dry Results & Data Results & Data Vital Signs (Past 12 Hours) Vital Signs Temp Pulse Pulse Resp BP BP Pulse Ox 09/14/23 00:39 09/14/23 00:39 70 18 149/83 H 100 09/14/23 00:00 70 18 149/83 H 98 09/13/23 22:52 71 18 141/81 H 98 09/13/23 22:31 73 09/13/23 22:01 36.8 C 74 20 134/69 93 O2 Del Method O2 Flow Rate 09/14/23 00:39 Nasal Cannula 3 09/14/23 00:39 Nasal Cannula 3 09/14/23 00:00 Nasal Cannula 3 09/13/23 22:52 Nasal Cannula 3 09/13/23 22:31 09/13/23 22:01 Nasal Cannula 3 Diagnostic Findings Laboratory Results WBC 9.97 K/ul (4.8-10.8) 09/13/23 22:20 RBC 2.96 M/uL (4.70-6.10) L 09/13/23 22:20 Hgb 10.0 g/dl (14.0-18.0) L 09/13/23 22:20 Hct 31.2 % (42.0-52.0) L 09/13/23 22:20 MCV 105.4 fL (80.0-100.0) H 09/13/23 22:20 MCH 33.8 pg (25.0-34.0) 09/13/23 22:20 MCHC 32.1 g/dL (32.0-36.0) 09/13/23 22:20 RDW Std Deviation 58.8 fL (36.4-46.3) H 09/13/23 22:20 RDW Coeff of Chaka 15.1 % (11.5-14.5) H 09/13/23 22:20 Plt Count K/uL (130-400) 09/13/23 22:20 MPV Not Reportable 09/13/23 22:20 Immature Gran % (Auto) 0.8 % 09/13/23 22:20 Neut % (Auto) 70.2 % 09/13/23 22:20 Lymph % (Auto) 11.9 % 09/13/23 22:20 Wise % (Auto) 9.4 % 09/13/23 22:20 Eos % (Auto) 7.0 % 09/13/23 22:20 Baso % (Auto) 0.7 % 09/13/23 22:20 Neut # (Auto) 6.99 K/uL (1.40-6.50) H 09/13/23 22:20 Lymph # (Auto) 1.19 K/uL (1.20-3.40) L 09/13/23 22:20 Wise # (Auto) 0.94 K/uL (0.11-0.59) H 09/13/23 22:20 Eos # (Auto) 0.70 K/uL (0.00-0.50) H 09/13/23 22:20 Baso # (Auto) 0.07 K/uL (0.00-0.20) 09/13/23 22:20 Immature Gran # (Auto) 0.08 K/uL (0.01-0.20) 09/13/23 22:20 Plt Count ,Citrate 146 K/uL (130-400) 09/13/23 22:20 PT 11.2 Seconds (9.0-12.0) 09/13/23 22:20 INR 1.0 (0.9-1.1) 09/13/23 22:20 APTT 28 Seconds (21-31) 09/13/23 22:20 PTT Ratio 1.0 09/13/23 22:20 Sodium 137 mmol/L (136-145) 09/13/23 22:20 Potassium 4.0 mmol/L (3.5-5.1) 09/13/23 22:20 Chloride 103 mmol/L (98-107) 09/13/23 22:20 Carbon Dioxide 27 mmol/L (21-32) 09/13/23 22:20 Anion Gap 7 (3-11) 09/13/23 22:20 BUN 46 mg/dl (6-23) H 09/13/23 22:20 Creatinine 2.32 mg/dl (0.6-1.4) H 09/13/23 22:20 Est Cr Clr Drug Dosing 29.1 ml/min 09/13/23 22:20 Est GFR ( Amer) 30.7 ml/min 09/13/23 22:20 Est GFR (Non-Af Amer) 26.5 ml/min 09/13/23 22:20 BUN/Creatinine Ratio 19.8 (10-20) 09/13/23 22:20 Glucose 126 mg/dl (70-99(Fasting)) H 09/13/23 22:20 Calcium 8.4 mg/dl (8.6-10.3) L 09/13/23 22:20 Total Bilirubin 0.3 mg/dl (0.2-1.0) 09/13/23 22:20 AST 21 U/L (13-39) 09/13/23 22:20 ALT 20 U/L (7-52) 09/13/23 22:20 Alkaline Phosphatase 90 U/L (34-104) 09/13/23 22:20 Total Protein 6.8 gm/dl (6.0-8.3) 09/13/23 22:20 Albumin 3.6 gm/dl (3.4-5.0) 09/13/23 22:20 Globulin 3.2 gm/dl (2.5-4.0) 09/13/23 22:20 Albumin/Globulin Ratio 1.1 (0.9-2) 09/13/23 22:20 Blood Type A Positive 09/13/23 22:24 Antibody Screen NEGATIVE 09/13/23 22:24 ECG Additional Comments: ECG. Normal sinus rhythm rate 74. No significant change was found. Code Status & VTE Plan VTE Prophylaxis Plan VTE Prophylaxis will be ordered: Yes (1) GI bleed GI bleed type/associated pathology: unspecified gastrointestinal hemorrhage type Qualified Code(s): K92.2 - Gastrointestinal hemorrhage, unspecified
[2023-09-14] MEDS ORDERED: NITROGLYCERIN SL 0.4 MG/TAB TAB SL PRN (02:24)
[2023-09-14] MEDS ORDERED: ALBUTEROL HFA 8 GM INHALER INH PRN (02:24)
[2023-09-14] MEDS: SODIUM CHLORIDE 0.9% 1,000 ML IV SCH (02:40)
[2023-09-14] MEDS: PANTOprazole 40 MG in DEXTROSE 5% MINI-B 100 ML IV SCH (02:41)
[2023-09-14 06:39] LABS: Calcium 8.2 mg/dl (8.6-10.3); Magnesium 1.9 mg/dl (1.7-2.4); Potassium 3.7 mmol/L (3.5-5.1)
[2023-09-14 06:45] LABS: BUN Creatinine Ratio 19.1 (10-20); Creatinine Clr Calc Pharmacy 31.4 ml/min; Est GFR (African American) 33.7 ml/min; Est GFR (Non-African American) 29.1 ml/min
[2023-09-14 07:01] LABS: Basophils # (auto) 0.06 K/uL (0.00-0.20); Basophils % (auto) 0.6 %; Eosinophils # (auto) 0.69 K/uL (0.00-0.50); Eosinophils % (auto) 7.2 %; Hematocrit (blood only) 30.9 % (42.0-52.0); Immature Granulocytes # (auto) 0.06 K/uL (0.01-0.20); Immature Granulocytes % (auto) 0.6 %; Lymphocytes # (auto) 0.99 K/uL (1.20-3.40); Lymphocytes % (auto) 10.3 %; Mean Corpuscular Hemoglobin 33.9 pg (25.0-34.0); Mean Corpuscular Hgb Conc 32.4 g/dL (32.0-36.0); Mean Corpuscular Volume 104.7 fL (80.0-100.0); Mean Platelet Volume 11.3 fL (9.4-12.4); Monocytes % (auto) 9.4 %; Neutrophils # (auto) 6.88 K/uL (1.40-6.50); Neutrophils % (auto) 71.9 %; Platelet Count 150 K/uL (130-400); Platelet Estimate Normal (Normal); RDW Coefficient of Variation 15.1 % (11.5-14.5); RDW Standard Deviation 58.8 fL (36.4-46.3); Red Blood Count 2.95 M/uL (4.70-6.10); White Blood Count 9.58 K/ul (4.8-10.8)
[2023-09-14] MEDS: UMECLIDINIUM/VILANTEROL 62.5/25MCG 7 PUFFS/INHALER INH SCH (07:48)
[2023-09-14] MEDS: FLUTICASONE FUROATE 100MCG 14 PUFFS/INHALER INH SCH (07:48)
[2023-09-14] MEDS: METOPROLOL TARTRATE 25 MG TAB PO SCH (07:49)
--- NOTE | 2023-09-14 08:19 | Electrocardiogram Report ---
Test Reason : Blood Pressure : / mmHG Vent. Rate : 074 BPM Atrial Rate : 074 BPM P-R Int : 178 ms QRS Dur : 096 ms QT Int : 416 ms P-R-T Axes : 010 007 038 degrees QTc Int : 461 ms Normal sinus rhythm Minimal voltage criteria for LVH, may be normal variant ( R in aVL ) Borderline ECG When compared with ECG of 02-SEP-2023 18:37, No significant change was found Confirmed by George Shah ([id number]) on 09/14/2023 8:18:37 AM Referred By: REFERRED SELF Confirmed By:George Shah
[2023-09-14] MEDS ORDERED: NON-FORMULARY MEDICATION (Fluticasone-Umeclidin-Vilanter [Trelegy Ellipta] 100-62.5-25 mcg INH SCH (09:00)
[2023-09-14 10:37] LABS: Hematocrit (blood only) 28.7 % (42.0-52.0); Hemoglobin 9.3 g/dl (14.0-18.0)
--- NOTE | 2023-09-14 10:58 | Gastrointestinal Consultation ---
Date of Consultation September 14, 2023 Assessment & Plan (1) Anemia: (2) Melena: Plan -Continue IV Protonix gtt -Keep NPO for EGD today if cleared by anesthesia -Continue to monitor H/H Supervising Physician Co-Signing Physician Notes Agree with CORINNA Reyes as above Interviewed and examined patient and agree with above Abd: Soft, NT, ND, +BS Continue current therapy and supportive care Proceed with EGD. History of Present Illness Reason for Consultation: Melena, anemia Attending Physician: Mohinder Zepeda MD History of Present Illness Patient is a 73 yo male with PMH of COPD/chronic respiratory failure on 3L O2, CVA, Aortic aneurysm >5 cm, CKD3, CHF, MGUS, & history of angioectasias in the stomach. He notes that yesterday he developed melena. This has been ongoing several times daily since then and he had an episode of significant melena prior to my arrival to his room. H/H is currently 9.3/28.7, however 10 days ago his Hgb was 13.6. He was hospitalized in April with pneumonia and was noted to be anemic at that time. [facility] because he was acutely ill with pneumonia. A plan was made to have an EGD as an outpatient in 6-8 weeks, though he notes that did not happen because his anemia improved. His last EGD was 02/2023 and indicated 2 gastric angioectasias. He takes Protonix 40 mg BID at home. Patient takes Eliquis at home. Allergies Allergy/AdvReac Type Severity Reaction Status Date / Time RUBENS Inhibitors AdvReac Unknown DROPS Verified 05/05/23 13:26 BLOOD PRESSURE lisinopril AdvReac Unknown DROPS Verified 05/05/23 13:26 BLOOD PRESSURE Home Medications Medication Instructions Recorded Confirmed Type albuterol sulfate 90 mcg/actuation 2 puff inhalation Q4H PRN Wheezing 01/30/23 09/14/23 History aerosol inhaler allopurinol 300 mg tablet 150 mg PO DAILY 01/30/23 09/14/23 History atorvastatin 80 mg tablet 80 mg PO QAM 01/30/23 09/14/23 History azelastine 137 mcg (0.1 %) nasal 1 spray intranasal AMHS Nasal 01/30/23 09/14/23 History spray aerosol Congestion cholecalciferol (vitamin D3) 50 50 mcg PO DAILY 01/30/23 09/14/23 History mcg (2,000 unit) tablet (Vitamin D3) docusate sodium 100 mg capsule 100 mg PO BID PRN Constipation 01/30/23 09/14/23 History ezetimibe 10 mg tablet 10 mg PO QAM 01/30/23 09/14/23 History furosemide 20 mg tablet 20 mg PO BID 01/30/23 09/14/23 History ipratropium 0.5 mg-albuterol 3 mg 3 ml inhalation Q6H PRN Shortness 01/30/23 09/14/23 History (2.5 mg base)/3 mL nebulization Of Breath Or Wheezing soln metoprolol tartrate 25 mg tablet 25 mg PO BID 01/30/23 09/14/23 History potassium chloride 10 mEq 10 meq PO 3XWK 01/30/23 09/14/23 History tablet,extended release(part/cryst) (Klor-Con M) fluticasone fur. 100 mcg-umeclid 1 inh inhalation QAM 02/15/23 09/14/23 History 62.5 mcg-vilant 25 mcg inhalat.powder (Trelegy Ellipta) ascorbic acid (vitamin C) 250 mg 125 mg PO QDL 04/21/23 09/14/23 History tablet fluticasone propionate 50 2 spray intranasal DAILY 04/21/23 09/14/23 History mcg/actuation nasal spray,suspension pantoprazole 40 mg tablet,delayed 40 mg PO AMHS #60 tabs 04/25/23 09/14/23 Rx release apixaban 2.5 mg tablet (Eliquis) 2.5 mg PO BID 09/02/23 09/14/23 History L.acidop,casei,lactis,rham-B.lact,allie 1 cap PO DAILY #14 caps 09/05/23 09/14/23 Rx 625 mg (10 billion cell) capsule (Advanced Probiotic) Patient History Medical History (Updated 09/14/23 @ 11:52 by Fatemeh Javed DO) MGUS (monoclonal gammopathy of unknown significance) CRF (chronic renal failure) History of cholelithiasis Chronic respiratory failure with hypoxia, on home O2 therapy GERD (gastroesophageal reflux disease) COPD (chronic obstructive pulmonary disease) exacerbation Dec 2022 - Hospitalized [facility] Dec 24-2022. Med change and effective since. Denies current issues. O2 2 L HS & PRN throughout day. PFO (patent foramen ovale) Wide-complex tachycardia CVA (cerebral vascular accident) Gastroparesis pt is not sure about this dx. History of colon polyps x1 a few yrs ago/follow up in 5 yrs. 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 Ascending thoracic aorta at the level of the right pulmonary artery 4.2 cm unchanged. 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 Descending thoracic aorta at the level of the left atrium again up to 4.[address] scan Dec 2022 - pt told everything was stable. 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 follows with Dr. Jefferson Gastric ulcer Hearing deficit BL NAILS Hx SBO History of GI bleed Stroke X 2 (LAST EVENT 05/2020) CONT. TO HAVE SLIGHT BALANCE ISSUES Sleep apnea CPAP Hx of gout PSVT (paroxysmal supraventricular tachycardia) Aortic stenosis Thoracic aortic atherosclerosis, densely calcified coronary arteries, severel y calcified aortic valve, aneurysmal outpouching of the aortic arch. CKD (chronic kidney disease), stage III follows with [facility] nephrology Hyperlipidemia Hypertension Surgical History (Updated 09/14/23 @ 11:52 by Fatemeh Javed DO) History of tonsillectomy History of esophagogastroduodenoscopy (EGD) most recent a few months ago for a bleed, this is a follow up procedure. History of tooth extraction History of tonsillectomy and adenoidectomy pt not sure about adenoids. History of lumbar surgery 1999 S/P AAA repair 01/13/2009 - Dr Suazo ([facility] YEARLY AT [facility]) Hx of colonoscopy Hx of hernia repair lysis of adhesions, incisional hernia repair laparoscopically 01/28/2010 at [facility] - Dr Desouza Family History Other AAA (abdominal aortic aneurysm) Hypertension No family history of adverse response to anesthesia Social History Smoking Status: Never smoker Tobacco Type: Cigarettes Age Started Using Tobacco: 18; Cigarettes Per Day: Former cigarette. 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 Required: No Beliefs That Will Affect Care: None marital status: Current Living Situation: Spouse Current Living Situation Comment: and daughter current occupational status: employed Feels Safe at Home: Yes Safety Concerns: Feels Safe At This Time Assistive Devices: CPAP, Hearing Aid - Bilateral and Oxygen - at Night Review of Systems Constitutional: no fever and no chills Respiratory: no cough and no dyspnea Cardiovascular: no chest pain Gastrointestinal: + melena; no abdominal pain Psychiatric: no problem reported Hematologic / Lymphatic: no unexplained weight loss Physical Exam Constitutional: well developed Respiratory: normal respiratory effort, lungs clear to auscultation Cardiovascular: Rate/Rhythm: regular rate Gastrointestinal (Abdomen): normal bowel sounds, soft, nontender, no hepatosplenomegaly Psychiatric: Orientation: alert and oriented x 3 Results & Data Vital Signs (Past 12 Hours) Vital Signs Pulse Pulse Resp BP Pulse Ox Pulse Ox O2 Del Method 09/14/23 10:00 60 18 146/76 H 98 Nasal Cannula 09/14/23 08:01 69 09/14/23 07:58 Nasal Cannula 09/14/23 07:47 66 20 133/95 97 Nasal Cannula 09/14/23 06:00 68 18 164/90 H 97 Nasal Cannula 09/14/23 04:06 69 18 179/99 H 97 Nasal Cannula 09/14/23 02:50 68 18 177/90 H 98 Nasal Cannula 09/14/23 02:50 99 09/14/23 02:19 67 09/14/23 02:00 67 18 170/90 H 99 Nasal Cannula 09/14/23 00:39 Nasal Cannula 09/14/23 00:39 70 18 149/83 H 100 Nasal Cannula 09/14/23 00:00 70 18 149/83 H 98 Nasal Cannula O2 Del Method O2 Flow Rate O2 Flow Rate 09/14/23 10:00 3 09/14/23 08:01 09/14/23 07:58 3 09/14/23 07:47 3 09/14/23 06:00 3 09/14/23 04:06 3 09/14/23 02:50 3 09/14/23 02:50 Nasal Cannula 3 09/14/23 02:19 09/14/23 02:00 3 09/14/23 00:39 3 09/14/23 00:39 3 09/14/23 00:00 3 PG Care Time/CCT Total # of Minutes Spent Total Time Spent with Patient: Total time spent is greater than 50% in coordination of care (as documented) at patient's floor/unit and/or counseling patient: Coding Level of Care Code 46938 INT INP/OBS CARE 3/75MIN Diagnoses Anemia D64.9 Anemia type: unspecified type Melena K92.1 (1) Anemia Anemia type: unspecified type Qualified Code(s): D64.9 - Anemia, unspecified
--- NOTE | 2023-09-14 11:55 | Anesthesiology Consultation ---
Date of Service September 14, 2023 Assessment & Plan Chart Review Chart Review: Acceptable Risk for Surgery Consults Requested none ASA ASA4E Proposed Anesthesia Anesthesia Type: MAC Risk / Benefits Reviewed With: PT / POA / Parent / Guardian, Accepts Plan and Informed Consent Obtained Additional Comments: pt accepts risk of mi/cva/cardiac arrest/ periop all questions answered History Surgery Operation Date: 09/14/23 16:30 Proposed Procedures p Esophagogastroduodenoscopy Dr Álvarez - Landon Roper Case, DO Height/Weight Height: 5 ft 6 in Weight: 91 kg Allergies Allergy/AdvReac Type Severity Reaction Status Date / Time RUBENS Inhibitors AdvReac Unknown DROPS Verified 05/05/23 13:26 BLOOD PRESSURE lisinopril AdvReac Unknown DROPS Verified 05/05/23 13:26 BLOOD PRESSURE Medications Home Medications Medication Instructions Recorded Confirmed Last Taken albuterol sulfate 90 mcg/actuation 2 puff inhalation Q4H PRN Wheezing 01/30/23 09/14/23 Unknown aerosol inhaler allopurinol 300 mg tablet 150 mg PO DAILY 01/30/23 09/14/23 02/22/23 atorvastatin 80 mg tablet 80 mg PO QAM 01/30/23 09/14/23 02/22/23 azelastine 137 mcg (0.1 %) nasal 1 spray intranasal AMHS Nasal 01/30/23 09/14/23 Unknown spray aerosol Congestion cholecalciferol (vitamin D3) 50 50 mcg PO DAILY 01/30/23 09/14/23 02/22/23 mcg (2,000 unit) tablet (Vitamin D3) docusate sodium 100 mg capsule 100 mg PO BID PRN Constipation 01/30/23 09/14/23 02/22/23 ezetimibe 10 mg tablet 10 mg PO QAM 01/30/23 09/14/23 02/22/23 furosemide 20 mg tablet 20 mg PO BID 01/30/23 09/14/23 02/22/23 ipratropium 0.5 mg-albuterol 3 mg 3 ml inhalation Q6H PRN Shortness 01/30/23 09/14/23 02/22/23 (2.5 mg base)/3 mL nebulization Of Breath Or Wheezing soln metoprolol tartrate 25 mg tablet 25 mg PO BID 01/30/23 09/14/23 02/22/23 potassium chloride 10 mEq 10 meq PO 3XWK 01/30/23 09/14/23 02/22/23 tablet,extended release(part/cryst) (Klor-Con M) fluticasone fur. 100 mcg-umeclid 1 inh inhalation QAM 02/15/23 09/14/23 Unknown 62.5 mcg-vilant 25 mcg inhalat.powder (Trelegy Ellipta) ascorbic acid (vitamin C) 250 mg 125 mg PO QDL 04/21/23 09/14/23 Unknown tablet fluticasone propionate 50 2 spray intranasal DAILY 04/21/23 09/14/23 Unknown mcg/actuation nasal spray,suspension pantoprazole 40 mg tablet,delayed 40 mg PO AMHS #60 tabs 04/25/23 09/14/23 Unknown release apixaban 2.5 mg tablet (Eliquis) 2.5 mg PO BID 09/02/23 09/14/23 09/02/23 10:00 L.acidop,casei,lactis,rham-B.lact,allie 1 cap PO DAILY #14 caps 09/05/23 09/14/23 Unknown 625 mg (10 billion cell) capsule (Advanced Probiotic) Active Medications Generic Name Dose Route Start Last Admin Trade Name Freq PRN Reason Stop Dose Admin Fluticasone Furoate 1 puffs 09/14/23 09:00 09/14/23 07:48 Fluticasone Furoate 100mcg 14 Puffs/Inhaler INH 10/14/23 08:59 1 puffs DAILY MOLINA Administration Pantoprazole Sodium 40 mg/ 100 mls @ 20 mls/hr 09/14/23 02:30 09/14/23 07:50 Dextrose IV 10/14/23 02:29 8 mg/hr Q5H MOLINA 20 mls/hr Administration 8 MG/HR Sodium Chloride 1,000 mls @ 75 mls/hr 09/14/23 02:24 09/14/23 02:40 Nss IV 10/14/23 02:23 75 mls/hr .[id number] MOLINA Administration Metoprolol Tartrate 25 mg 09/14/23 09:00 09/14/23 07:49 Metoprolol Tartrate 25 Mg Tab PO 10/14/23 08:59 25 mg BID MOLINA Administration Umeclidinium/Vilanterol 1 puffs 09/14/23 09:00 09/14/23 07:48 Umeclidinium/Vilanterol 62.5/25mcg 7 Puffs/Inhaler INH 10/14/23 08:59 1 puffs DAILY MOLINA Administration NPO Date Last Intake of Fluids: 09/13/23 Time Last Intake of Fluids: 23:59 Date Last Intake of Solids: 09/13/23 Time Last Intake of Solids: 23:59 Past Medical History Medical History (Updated 09/14/23 @ 11:52 by Fatemeh Javed DO) MGUS (monoclonal gammopathy of unknown significance) CRF (chronic renal failure) History of cholelithiasis Chronic respiratory failure with hypoxia, on home O2 therapy GERD (gastroesophageal reflux disease) COPD (chronic obstructive pulmonary disease) exacerbation Dec 2022 - Hospitalized [facility] Dec 24-2022. Med change and effective since. Denies current issues. O2 2 L HS & PRN throughout day. PFO (patent foramen ovale) Wide-complex tachycardia CVA (cerebral vascular accident) Gastroparesis pt is not sure about this dx. History of colon polyps x1 a few yrs ago/follow up in 5 yrs. 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 Ascending thoracic aorta at the level of the right pulmonary artery 4.2 cm unchanged. 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 Descending thoracic aorta at the level of the left atrium again up to 4.[address] scan Dec 2022 - pt told everything was stable. 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 follows with Dr. Jefferson Gastric ulcer Hearing deficit BL NAILS Hx SBO History of GI bleed Stroke X 2 (LAST EVENT 05/2020) CONT. TO HAVE SLIGHT BALANCE ISSUES Sleep apnea CPAP Hx of gout PSVT (paroxysmal supraventricular tachycardia) Aortic stenosis Thoracic aortic atherosclerosis, densely calcified coronary arteries, severely calcified aortic valve, aneurysmal outpouching of the aortic arch. CKD (chronic kidney disease), stage III follows with [facility] nephrology Hyperlipidemia Hypertension Exercise / Class Metabolic Activity III < 4 Walking/Shop/Light housework Past Family History Family History Other AAA (abdominal aortic aneurysm) Hypertension No family history of adverse response to anesthesia Past Surgical History Surgical History (Updated 09/14/23 @ 11:52 by Fatemeh Javed DO) History of tonsillectomy History of esophagogastroduodenoscopy (EGD) most recent a few months ago for a bleed, this is a follow up procedure. History of tooth extraction History of tonsillectomy and adenoidectomy pt not sure about adenoids. History of lumbar surgery 1999 S/P AAA repair 01/13/2009 - Dr Suazo ([facility]) Hx of colonoscopy Hx of hernia repair lysis of adhesions, incisional hernia repair laparoscopically 01/28/2010 at [facility] - Dr Desouza Past Anesthesia History No Hx of Anesthesia Complications and No Family Hx of Anesthesia Complications History of PONV No Hx of PONV and No Hx of Motion Sickness Social History Smoking Status: Never smoker tobacco type: cigarettes Smoking cigarettes per day: Former cigarette. Quit 1998 Do You Dip or Chew Tobacco: No Hx Alcohol Use: Yes Alcohol type: beer alcohol intake frequency: holidays/special occasions only Hx Substance Use: No substance use type: does not use Physical Exam Vital Signs Last Vital Signs Temp 36.2 C L 09/14/23 12:34 Pulse 60 09/14/23 12:34 Resp 20 09/14/23 12:34 BP 172/79 H 09/14/23 12:34 Pulse Ox 96 09/14/23 12:34 O2 Del Method Nasal Cannula 09/14/23 12:34 O2 Flow Rate 3 09/14/23 12:34 Constitutional + obese ENMT Mouth: + dentition abnormality (5 upper teeth remain ); no TMJ abnormality Thyromental Distance: > or= 3.5 Finger Breadths Mallampati Class: II Neck normal visual inspection and trachea midline; neck extension not limited Respiratory normal respiratory effort Auscultation: + diminished lung sounds and + wheezes preop albuterol mdi 4puffs with improvement in air flow Cardiovascular Rate/Rhythm: regular rate and regular rhythm Heart Sounds: + murmur (5/6 param 2nd ics) Musculoskeletal Spine: normal cervical ROM Extremities: full ROM of extremities Neurologic moves all extremities Psychiatric Orientation: alert and oriented x 3 Testing Laboratory Results 09/14/23 10:19 09/14/23 05:38 PT 11.2 Seconds (9.0-12.0) 09/13/23 22:20 INR 1.0 (0.9-1.1) 09/13/23 22:20 APTT 28 Seconds (21-31) 09/13/23 22:20 Blood Type A Positive 09/13/23 22:24 Antibody Screen NEGATIVE 09/13/23 22:24 Electrocardiogram Date: 09/14/23 Findings: + NSR @ (74) and + LVH Echocardiogram Date: 01/31/23 EF: 60-65 LV Function: normal RWMA: + none Other Findings: + LVH (mod concentric) Valvular Disease: + (severe)
--- NOTE | 2023-09-14 14:25 | GI REPORT ---
Patient Name: Mikhail Fung Procedure Date: 09/14/2023 1:50 PM Date of : 1950 Admit Type: Inpatient Age: 73 Gender: Male Attending MD: Landon Álvarez DO, Procedure: Upper GI endoscopy Providers: Landon Álvarez DO Referring MD: Mohinder Zepeda MD Indications: Melena Medicines: Monitored Anesthesia Care Complications: No immediate complications. Estimated Blood Loss: Estimated blood loss: none. Procedure: Pre-Anesthesia Assessment: - Prior to the procedure, a History and Physical was performed, and patient medications and allergies were reviewed. The patient's tolerance of previous anesthesia was also reviewed. The risks and benefits of the procedure and the sedation options and risks were discussed with the patient. All questions were answered, and informed consent was obtained. Prior Anticoagulants: The patient has taken Eliquis (apixaban), last dose was 1 day prior to procedure. ASA Grade Assessment: IV - A patient with severe systemic disease that is a constant threat to life. After reviewing the risks and benefits, the patient was deemed in satisfactory condition to undergo the procedure. After obtaining informed consent, the endoscope was passed under direct vision. Throughout the procedure, the patient's blood pressure, pulse, and oxygen saturations were monitored continuously. The Endoscope was introduced through the mouth, and advanced to the second part of duodenum. The upper GI endoscopy was accomplished without difficulty. The patient tolerated the procedure well. Findings: The esophagus was normal. The entire examined stomach was normal and multiple endoclips were noted from prior treatment of AVM's. One non-bleeding superficial duodenal ulcer with no stigmata of bleeding was found in the duodenal bulb adjacent to the site of the Cholecystoduodenostomy stent. The lesion was 4 mm in largest dimension. To prevent bleeding one hemostatic clip was successfully placed (MR conditional). Clip heater furnace: [employer]. There was no bleeding at the end of the procedure. Impression: - Normal esophagus. - Normal stomach. - Non-bleeding duodenal ulcer with no stigmata of bleeding. Clip (MR conditional) was placed. Clip heater furnace: [employer]. - No specimens collected. Recommendation: - Return patient to [facility] for [facility] care. - Clear liquid diet. - Continue present medications. Landon Álvarez DO 09/14/2023 2:25:16 PM This report has been signed electronically. Note Initiated On: 09/14/2023 1:50 PM Number of Addenda: 0 I attest to the content of the Intraoperative Record and orders documented therein, exceptions below {[id number]}
--- OUTSIDE RECORDS SUMMARY | 2023-09-14 14:29 | External Medical Summary | Summary of Care ---
Author Name Unknown Organization [facility] Address [address] [place] [address] Phone [phone] Care Team Providers Care Pharmacy Informatics Specialist Name Role Phone Jairo Kingston MD Primary Care Provider [phone] Reason for Visit * Reason Comments [facility]: Maintenance Encounter Details Date Type Department Care Team (Late st Contact Info) Description 09/13/2023 10:00 AM EDT Home Visit [facility], [facility] [address] [place] [address] Jenifer Linder RN [address] [place] [address] Allergies Active Allergy Reactions Criticality Noted Date Comments Pavan Inhibitors Other (Please comment) 0 Hyperkalemia documented as of this encounter (statuses as of 09/13/2023) Medications Medication Sig Dispensed Refills Start Date End Date Status oxygen GAS Use 3 L/min(Oxygen) as directed at bedtime. Use 2-3 l/min continuously to keep pulse ox above 90% Active CVS D3 50 MCG (1999) Oral Capsule (Cholecalciferol)Ind ications:Vitamin D deficiency TAKE 1 CAPSULE BY MOUTH EVERY DAY 90 Cap 1 0 Active CPAP every night at bedtime. Active Ascorbic Acid 250 MG Oral TabletIndications:Ir [...] 0.1 % Nasal Solution (Astelin) Administer 1 Spencer into nostril in the morning and 1 Spencer before bedtime. 30 mL 1 3 Active Furosemide 20 MG Oral Tablet (Lasix) TAKE 1 TABLET BY MOUTH twice DAILY 90 Tablet 3 3 Active Ezetimibe 10 MG Oral Tablet [...] EVERY DAY 180 Each 1 4 Active Metoprolol Tartrate 25 MG Oral Tablet (Lopressor) Take 1 Tablet by mouth in the morning and 1 Tablet before bedtime. 180 Tablet 3 4 Active Potassium Chloride ER 10 MEQ Oral Capsule Extended Release Take 1 Capsule by mouth in the morning On Tuesday, Tuesday and Tuesday only 45 Capsule 3 4 Active Atorvastatin Calcium 80 MG Oral Tablet (Lipitor) Take 1 Tablet by mouth daily. Active guaiFENesin ER 600 MG Oral Tablet Extended Release 12 Hour (Humibid LA) Take 1 Tablet by mouth in the morning and 1 Tablet before bedtime. Active Probiotic & Acidophilus Ex St Oral Capsule Take 1 Capsule by mouth in the morning and 1 Capsule at noon and 1 Capsule in the evening. Take with meals. Active predniSONE 20 MG Oral Tablet (Deltasone) TAKE 1 TABLET BY MOUTH EVERY DAY FOR 2 DAYS 4 09/13/19 24 Discontinu ed(Medicat ion List Clean Up) Doxycycline Hyclate 100 MG Oral Capsule TAKE 1 CAPSULE BY MOUTH TWICE A DAY FOR 4 DAYS 4 09/13/19 24 Discontinu ed(Medicat ion List Clean Up) documented as of this encounter (statuses as of 09/13/2023) Active Problems Problem Noted Date Diagnosed Date [...] disease, stage IV Last Assessment & Plan: Brina lopressor History of supraventricular tachycardia 11/12/19 Idiopathic chronic gout of foot without tophus 0 11/11/2022 Last Assessment & Plan: Allopurinol customer advocate No new attacks GINNY on CPAP 11/11/2022 [...] as of this encounter (statuses as of 09/13/2023) Resolved Problems Problem Noted Date Diagnosed Date [...] as of this encounter (statuses as of 09/13/2023) Immunizations Name Administration Dates Next Due COVID-19 [...] 974 - 2009 Cigars Smokeless Tobacco: Never Alcohol Use [...] Sign Reading Time Taken Comments Blood Pressure 98/60 09/13/2023 10:21 AM EDT Pulse 75 09/13/2023 10:21 AM EDT Temperature 36.6 C (97.8 F) 09/13/2023 10:21 AM E DT Respiratory Rate 18 09/13/2023 10:21 AM EDT Oxygen Saturation 93% 09/13/2023 10:21 AM EDT Inhaled Oxygen Concentration - - Weight - - Height - - Body Mass Index - - documented in this encounter Progress Notes * Jenifer Linder RN - 09/13/2023 9:45 AM EDT [facility] On Air Director Visit Date: 09/13/2023 Time: 9:46 AM Name: Mikhail Fung : 1950 Current Concerns: Pt seen for ADRIANA #2 Was admitted to [facility] 09/02 - 09/04 for COPD exacerbation and bronchitis Discharged home on Prednisone, Doxycycline, Mucinex and probiotics when on abx He is still taking Mucinex but has completed the rest During hospitalization, a new lung nodule was found, and is going to have a repeat CAT scan for f/u- scheduled for January He reports he is feeling better He thinks he did have a prednisone rescue kit on hand but forgot about it and thinks he threw it away Will message provider to get rescue kit in the home to have on hand for exacerbations BP a little lower than normal today He does report he hasn't been drinking much water Only had a cup of coffee this am States he doesn't drink tap water and hasn't been buying bottled water so haven't been drinking much Education done on drinking more water for hydration BP 98/60 sitting and 92/50 standing Does have issues with dizziness with position change Agreed to drink more water Physical Exam: BP 98/60 | Pulse 75 | Temp 36.6 C (97.8 F) | Resp 18 | SpO2 93% Pain 0 Physical Exam Constitutional: General: He is not in acute distress. Cardiovascular: Rate and Rhythm: Normal rate and regular rhythm. Pulses: Normal pulses. Heart sounds: Normal heart sounds. Pulmonary: Effort: Pulmonary effort is normal. Abdominal: General: Bowel sounds are normal. Palpations: Abdomen is soft. Musculoskeletal: Right lower leg: Edema (trace) present. Left lower leg: Edema (trace) present. Skin: General: Skin is warm and dry. Neurological: Mental Status: He is alert and oriented to person, place, and time. Problems/Symptoms: Review of Systems Constitutional: Negative. HENT: Negative. Eyes: Negative. Respiratory: Positive for cough (chronic, at baseline) and shortness of breath (CAMARENA - at baseline). Cardiovascular: Positive for leg swelling. Gastrointestinal: Negative. Genitourinary: Negative. Skin: Negative. Neurological: Positive for dizziness and light-headedness. Hematological: Negative. Medication Reconciliation: (See medication list) Does patient take medications as ordered: Yes Patient Well Being: PHQ2/9: No questionnaires available. No change in living situation [facility] Completed this Visit: Yes. [facility]: Reason Completed: Status post ED visit/hospital admission [facility] ([facility]) Fall Risk Assessment Tool Age 65+: Yes (09/13/23999) Diagnosis (3 or more co-existing): Yes (09/13/23999) Prior history of falls within 3 months: No (09/13/23999) Incontinence: No (09/13/23999) Visual impairment: No (09/13/23999) Impaired functional mobility: Yes (09/13/23999) Environmental hazards: No (09/13/23 1000) Poly Pharmacy (4 or more prescriptions - any type): Yes (09/13/23999) Pain affecting level of function: No (09/13/23 1000) Cognitive impairment: No (09/13/23999) Score - a score of 4 or more is considered at risk for fallin (09/13/23999) [facility] Interventions: Fall education provided, reviewed/provided Fall brochure Advanced Care Planning: POLST. Reinforcement/Education: COPD: Pt instructed to: -Call with increased SOB, wheezing, chest tightness, increased cough, increased sputum with change in color or consistency and fever. -Wash hands often -Drink plenty of fluids -Use inhalers as directed, do not stop or skip doses -Avoid stress -Rest when tired or SOB -Avoid triggers -Clean inhalers once a week Educated on home safety: Create a fall [...] exercises that will be right for you. Reinforced safety education and fall prevention. and Reinforced medication regimen. Timing., Dosing., and Purspose. Treatment/Plan: Continue meds as prescribed/reviewed Oxygen at 3 l/min via nc Duoneb q 4 hrs prn Albuterol inhaler prn Keep all appts as scheduled and attend Elevate LE as much as possible Compression socks, on in am and off in pm - does not often wear TE sent to [facility] provider to get rescue kit ordered for prn use Pt requests [place] [facility] [place] to scheduling Home Interventions Provided: Home Intervention: Other; jamesal Consulted PCP/Specialist Reinforced current Plan of Care, including self-management and medication regimen Patient's 'Red Flags': Increased SOB - using neb more often Increased weakness/fatigue Feeling more dizzy Patient Needs to Remember: Call [facility] at with any new or worsening [...] visits & schedule home visit with care sales team leader(s)as indicated. Provider is in agreement with Plan of Care: Yes Scheduled to follow up with patient in 2-3 weeks. Jenifer Linder RN 09/13/2023 9:46 AM documented in this encounter Plan of Treatment Upcoming Encounters Date Type Department Care Team (Late st Contact Info) Description 09/23/2023 2:00 PM EDT Hem/Onc Treatment Hematology/Oncology Treatment, [place] [address] [place] [id number] Hannah, Chair 5 Hem Onc [facility] [address] [place] [address] 10/06/2023 4:00 PM EDT Home Visit [facility] [place], [facility] [address] [facility] [place] [address] Jenifer Linder RN [address] [facility] [place] [address] 10/10/2023 9:00 AM EDT Office Visit [facility] [address] [place] [phone] Jairo Kingston MD [address] [place] [address] 11/30/2023 8:30 AM EDT Procedure Only Endoscopy, [facility] [address] [facility] [place] [address] Lacie England MD [address] [place] [address] 12/13/2023 3:00 PM EDT Office Visit Nephrology, Yuliet Young [address] [place], [place] [address] Reggie Azevedo MD [address] [place] [address] 01/19/2024 4:45 PM EDT Imaging Radiology [address] [facility] [place] [address] 03/28/2024 3:20 PM EST Office Visit [facility] [place] [phone] Shanika Fitzgerald DO [address] [place] [address] Scheduled Procedures Name Priority Associated Diagnoses Date/Ti me ESOPHAGOGASTRODUODENOSCOPY ( EGD), FLEXIBLE, TRANSORAL, DIAGNOSTIC Recall Abdominal pain COLONOSCOPY FLEXIBLE PROXIMAL DIAGNOSTIC Recall History of colon polyps Health Maintenance Due Date Last Done Comments AAA Monitoring 10/03/2021 10/03/2020, 01/17, 10/28/2014, Additional [...] on patient's age to complete this topic Zoster Vaccines Discontinued documented as of this encounter Medical Devices Implanted Type Area [employer] Pro[employer] Device Identifier Shelf Expiration Date Model / Serial / Lot Graft Hemasheild 20mm [id number] - [id number] Implanted:Qty: 1 on 01/13/2009 at OR [facility] N/A: Abdomen MICROVASIVE [id number] / / [id number] Clip Resolution 360 Endo 235cm - [id number] Implanted:Qty: 1 on 12/10/2022 by Lacie England MD at OR [facility] [employer] : ENDOSCOPY [id number] 07/02/2025 [id number] / / [id number] Clip Resolution 360 Endo 235cm - [id number] Implanted:Qty: 1 on 12/10/2022 by Lacie England MD at OR [facility] [employer] : ENDOSCOPY [id number] 07/02/2025 [id number] / / [id number] Stent Axios [id number] - [id number] Implanted:Qty: 1 on 12/10/2022 by Lacie England MD at OR 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 Question Answer Comments Discussion of Advance Directives occurred with: Patient * Full Code Date Activated Date Inactivated Comments 01/14/2009 11:19 AM 01/11/2012 1:33 PM This order reflects the patients wishes and were consensually agreed upon. * Full Code Date Activated Date Inactivated Comments 01/13/2009 6:17 PM 01/14/2009 11:19 AM This order reflects the patients wishes and were consensually agreed upon. Care Teams Pharmacy Informatics Specialist Relationship Specialty Start Date End Date Jairo Kingston MD [address] [place] [address] PCP - General 12/21/05 documented as of this encounter"
--- OUTSIDE RECORDS SUMMARY | 2023-09-14 14:30 | External Medical Summary | Summary of Care ---
Author Name Unknown Organization [facility] Address [address] [place] [address] Phone [phone] Care Team Providers Care Public Health Advisor Name Role Phone Jairo Kingston MD Primary Care Provider [phone]- [phone] Encounter Details Date Type Department Care Team (Latest Contact Info) Description 09/08/2023 Medication Management [facility] [address] [place] [address] Dawson Talavera, [facility] [address] [place] [address] Referred for management of medication therapy* Allergies Active Allergy Reactions Criticality Noted Date Comments Pavan Inhibitors Other (Please comment) 0 Hyperkalemia documented as of this encounter (statuses as of 09/08/2023) Medications Medication Sig Dispensed Refills Start Date [...] 0.1 % Nasal Solution (Astelin) Administer 1 Husser into nostril in the morning and 1 Husser before bedtime. 30 mL 1 3 Active [...] 1 Tablet before bedtime. 180 Tablet 3 05/08/202 4 Active Potassium Chloride ER 10 MEQ Oral Capsule Extended Release Take 1 Capsule by mouth in the morning On Tuesday, Tuesday and Tuesday only 45 Capsule 3 4 Active Atorvastatin Calcium 80 MG Oral Tablet (Lipitor) Take 1 Tablet by mouth daily. Active Ferrous Sulfate 325 (65 Fe) MG Oral Tablet (Feosol)Indications: Iron deficiency anemia, unspecified iron deficiency anemia type Take 1 Tablet by mouth daily at noon. 90 Tablet 3 3 09/08/19 24 Discontinu ed(Medicat ion List Clean Up) Octreotide Acetate 10 MG Intramuscular Kit (SandoSTATIN LAR Depot) Inject 10 mg into a large muscle every month for 6 doses. 6 Kit 3 09/08/19 24 Discontinu ed(Medicat ion List Clean Up) Metoprolol Tartrate 25 MG Oral Tablet (Lopressor) Take 1 Tablet by mouth in the morning and 1 Tablet before bedtime. 60 Tablet 4 09/08/19 24 Discontinu ed(Medicat ion List Clean Up) Potassium Chloride Marla ER 10 MEQ Oral Tablet Extended Release Take 1 Tablet by mouth once a day on Tuesday, Tuesday, and Tuesday only. 12 Tablet 4 09/08/19 24 Discontinu ed(Medicat ion List Clean Up) Potassium Chloride Marla ER 10 MEQ Oral Tablet Extended ReleaseIndications:H TN, goal below 140/90 Take 1 Tablet by mouth once a day on Tuesday, Tuesday, and Tuesday only. 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 Objective: Review of patient's allergies indicates: Allergen Reactions Pavan Inhibitors Other (Please comment) Hyperkalemia Current Outpatient Medications - WARNING: List may be incomplete due to filtering Medication Sig Dispense Refill Atorvastatin Calcium 80 MG Oral Tablet (Lipitor) Take 1 Tablet by mouth daily. Metoprolol Tartrate 25 MG Oral Tablet (Lopressor) Take 1 Tablet by mouth in the morning and 1 Tablet before bedtime. 180 Tablet 3 Potassium Chloride ER 10 MEQ Oral Capsule Extended Release Take 1 Capsule by mouth in the morning On Tuesday, Tuesday and Tuesday only 45 Capsule 3 Trelegy Ellipta 100-62.5-25 MCG/ACT Aerosol Powder Breath Activated (Djvkdpuiddk-Fkqucxdxpqxe-Tejmxpvglw) INHALE ONE PUFF BY MOUTH EVERY DAY 180 Each 1 Fluticasone Propionate 50 MCG/ACT Nasal Suspension (Flonase) INSTILL 2 SPRAYS INTO EACH NOSTRIL EVERY DAY 48 g 3 Ipratropium-Albuterol 0.5-2.5 (3) MG/3ML Inhalation Solution (Duoneb) Inhale 3 mL by mouth every 6 hours as needed (sob). 360 mL 5 Apixaban 2.5 MG Oral Tablet (Eliquis) Take 1 Tablet by mouth in the morning and 1 Tablet before bedtime. 180 Tablet 1 Allopurinol 300 MG Oral Tablet (Zyloprim) TAKE ONE-HALF TABLET BY MOUTH EVERY DAY 45 Tablet 2 Docusate Sodium 100 MG Oral Capsule (Colace) Take 1 Capsule by mouth 2 times a day as needed for Constipation. 180 Capsule 3 Pantoprazole Sodium 40 MG Oral Tablet Delayed Release (Protonix) Take 1 Tablet by mouth in the morning and 1 Tablet before bedtime. 180 Tablet 3 Ezetimibe 10 MG Oral Tablet (Zetia) TAKE ONE TABLET BY MOUTH EVERY MORNING 90 Tablet 3 Furosemide 20 MG Oral Tablet (Lasix) TAKE 1 TABLET BY MOUTH twice DAILY 90 Tablet 3 Azelastine HCl 0.1 % Nasal Solution (Astelin) Administer 1 Husser into nostril in the morning and 1 Husser before bedtime. 30 mL 1 Albuterol Sulfate HFA 108 (90 Base) MCG/ACT Inhalation Aerosol Solution Inhale 2 Puffs by mouth every 4 hours as needed for Wheezing. 54 g 6 Ascorbic Acid 250 MG Oral Tablet Take 0.5 Tablets by mouth daily at noon. 90 Tablet 3 CVS D3 50 MCG (2000 UT) Oral Capsule (Cholecalciferol) TAKE 1 CAPSULE BY MOUTH EVERY DAY 90 Cap 1 CPAP every night at bedtime. oxygen GAS Use 3 L/min(Oxygen) as directed at bedtime. Use 2-3 l/min continuously to keep pulse ox above 90% Immunization History Administered Date(s) Administered COVID-19 mRNA, LNP-s, No Preserve, 2-Dose Series (Moderna) 05/22/2020, 06/19/2020, 02/19/2021 DT - Diptheria/Tetanus (PEDS) 06/11/2002 Pneumococcal Conjugate Vacc, 13 Valent (Prevnar) 06/12/2015 Pneumococcal Polysaccharide PPV23 (Pneumovax) 06/10/2014 Seasonal Influenza, PF, 6 M & above, IM , (FluLaval or Fluzone) 02/27/2018, 02/06/2019, 12/29/2019 Seasonal Influenza, Quadrivalent Hd (Fluzone Hd) 01/15/2021, 03/04/2022, 01/10/2023 TD, Preservative Free 03/04/2022 TDAP (age 10 and older)(Boostrix) 12/14/2011 Vitamin B12 Injection 01/14/2009 TMR Interventions Incomplete Encounter MTPs No medication therapy recommendations to display Complete Encounter MTPs Referred for management of medication therapy Current Medication: Trelegy Ellipta 100-62.5-25 MCG/ACT Aerosol Powder Breath Activated (Xgiuhkctvgr-Vvrchjiclwmp-Cpodliugey) Rationale: Patient Education - Needs Medication Assessment - Adherence Recommendation: Provide Education Status: Patient Agreed Note: Stable on Trelegy. Recently had bronchitis so JERO use was/is temporarily higher than normal.Otherwise HFA is usually only a few times per week at most. Does use duonebs ATC most days per provider. Trelegy adherence and technique confirmed. Rinsing mouth out after use. Assessment & Plan Indication, effectiveness, safety and convenience of his medications were reviewed today. The patient's medical conditions were assessed, evaluated, and deemed meeting goals of drug therapy, with thefollowing exceptions. Additional Notes: Daughter helps with medications. Using GMO. Labs UTD. Also followed by [facility]. Had bronchitis recently. Stable on Trelegy and duonebs. Only periodic need for JERO HFA. Checks BP in home at least daily. Not interested in the Shingrix series, but is interested in the RSV vaccination, info sent. In donuthole already due to Eliquid and Trelegy. Requesting info be sent to Pharmacy Reimbursement for revie w of PAP/PACE. Sent. Summary Time Spent: 16-30 min Supervising pharmacist who provided the service: Dawson Talavera PharmPriscilla Takeaway Information Who was the recipient of the CMR service: beneficiary Language Template for the Patient Takeaway: Israeli I attest that I have reviewed and updated the patient's conditions, allergies, and medications to the best of my ability. Patient provided medication list gathered by: Jaspreet Butcher RPh 09/08/2023, 10:13 AM documented in this encounter Miscellaneous Notes * MTM Personal Medication List - Dawson Talavera RPh - 09/08/2023 10:10 AM EDT Medication How I take it Why I use it Prescriber Albuterol Sulfate HFA 108 (90 Base) MCG/ACT Inhalation Aerosol Solution Inhale 2 Puffs by mouth every 4 hours as needed COPD Cullen John PA-C Allopurinol 300 MG Oral Tablet (Zyloprim) TAKE ONE-HALF TABLET BY MOUTH EVERY DAY Gout Reggie Azevedo MD Apixaban 2.5 MG Oral Tablet (Eliquis) Take 1 Tablet by mouth in the morning and 1 Tablet before bedtime. Blood Clot Prevention Jairo Kingston MD Ascorbic Acid 250 MG Oral Tablet Take 0.5 Tablets by mouth daily at noon. General Health Jairo Kingston MD Atorvastatin Calcium 80 MG Oral Tablet (Lipitor) Take 1 Tablet by mouth daily. Cholesterol Jairo Kingston MD Azelastine HCl 0.1 % Nasal Solution (Astelin) Administer 1 Husser into nostril in the morning and 1 Husser before bedtime. Allergies Cullen John PA-C CVS D3 50 MCG (1999 UT) Oral Capsule (Cholecalciferol) TAKE 1 CAPSULE BY MOUTH EVERY DAY Low Vitamin D Reggie Azevedo MD Docusate Sodium 100 MG Oral Capsule (Colace) Take 1 Capsule by mouth 2 times a day as needed Constipation YARA Tvaeras Ezetimibe 10 MG Oral Tablet (Zetia) TAKE ONE TABLET BY MOUTH EVERY MORNING Cholesterol Ghanshyam Osorio PA-C Fluticasone Propionate 50 MCG/ACT Nasal Suspension (Flonase) INSTILL 2 SPRAYS INTO EACH NOSTRIL EVERY DAY Allergies Jairo Kingston MD Furosemide 20 MG Oral Tablet (Lasix) TAKE 1 TABLET BY MOUTH twice DAILY Fluid Accumulation Jairo Kingston MD Ipratropium-Albuterol 0.5-2.5 (3) MG/3ML Inhalation Solution (Duoneb) Inhale 3 mL by mouth via nebulizer every 6 hours as needed COPD Jairo Kingston MD Metoprolol Tartrate 25 MG Oral Tablet (Lopressor) Take 1 Tablet by mouth in the morning and 1 Tablet before bedtime. Heart; Blood Pressure Jairo Kingston MD Pantoprazole Sodium 40 MG Oral Tablet Delayed Release (Protonix) Take 1 Tablet by mouth in the morning and 1 Tablet before bedtime. Acid Reflux YARA Taveras Potassium Chloride ER 10 MEQ Oral Capsule Extended Release Take 1 Capsule by mouth in the morning on Tuesday, Tuesday and Tuesday only Low Potassium Jairo Kingston MD Trelegy Ellipta 100-62.5-25 MCG/ACT Aerosol Powder Breath Activated (Zocubdewiiu-Zzejzppnfqgb-Lzhwhanblc) INHALE ONE PUFF BY MOUTH EVERY DAY COPD Jairo Kingston MD * MTM To-Do-List - Dawson Talavera RPh - 09/08/2023 10:08 AM EDT Images from the original note were not included. What we talked about: What I should do: The importance of taking your medication as prescribed Your medicine works best when taken as prescribed. It can be hard to remember to take daily medications. Consider making it a part of your daily routine. Pair taking your medication with something you do every day, like brushing your teeth or eating a meal. Consider setting daily alarms to help remind yourself when it is time to take your medicine. Using a pill box can also help you organize your medicines. Pill boxes allow you to fill each day slot with your daily medicine and help you track when your next dose is due. What we talked about: What I should do: Trelegy - Swish and Spit Your inhaler Trelegy could put you at an increase risk for throat irritation or even throat fungal infections (called thrush). An easy way to keep your throat healthy is swishing and spitting with water after each use. What we talked about: What I should do: Blood Pressure Monitoring It is also important to monitor your blood pressure regularly. Make sure to record your readings in a log and take them with you to your appointments. Providing these readings to your healthcare providers can help them better control your blood pressure. What we talked about: What I should do: RSV Vaccination RSV is a respiratory virus that is becoming more and more common, like the yearly flu or cold. RSV especially affects those 65 years and older and infants. CDC is recommending the 1 time dose of RSV for those 60 and older to prevent serious illness. Check with your local pharmacy asthese vaccinations are only covered for administration at a pharmacy. documented in this encounter Plan of Treatment Upcoming Encounters Date Type Department Care Team (Late st Contact Info) Description 09/09/2023 2:00 PM EDT Office Visit [facility] [address] [facility], [place] [address] Jairo Kingston MD [address] [facility] [address] 09/10/2023 11:30 AM EDT Scheduled Telephone [facility], [facility] [address] [facility] [place] [address] [facility], Nurse [facility] [address] [facility] [place] [address] 09/13/2023 10:00 AM EDT Home Visit [facility], [facility] [address] [facility] [place] [address] Jenifer Linder RN [address] [facility] [place] [address] 09/23/2023 2:00 PM EDT Hem/Onc Treatment Hematology/Oncology Treatment, [address] [place] [phone] Hannah, Chair 8 Hem Onc Scene [address] [facility] [place] [address] 10/10/2023 9:00 AM EDT Office [facility] [address] [facility] [address] Jairo Kingston MD [address] [facility] [id number] 11/30/2023 8:30 AM EDT Procedure Only Endoscopy, [place] [address] [facility] [place] [address] Lacie England MD [address] [facility] [place] [address] 12/13/2023 3:00 PM EDT Office Visit Nephrology, Yuliet Young [address] [place] [address] Reggie Azevedo MD [address] [place] [address] 01/19/2024 4:45 PM EDT Imaging Radiology [facility] [address] [facility] [place] [address] 03/28/2024 3:20 PM EST Office Visit [facility] [address] [facility] [place] [phone] Shanika Fitzgerald, [address] [place] [address] Scheduled Procedures Name Priority Associated Diagnoses Date/Ti [...] this encounter Medical Devices Implanted Type Area Chaser Tar Device Identifier Shelf Expiration Date Model / Serial / Lot Graft Hemasheild 20mm [id number] - [id number] Implanted:Qty: 1 on 01/13/2009 at OR [facility] [place] [place] N/A: Abdomen MICROVASIVE [id number] / / [id number] Clip Resolution 360 Endo 235cm - [id number] Implanted:Qty: 1 on 12/10/2022 by Lacie England MD at OR [facility] [employer] : ENDOSCOPY [id number] 07/02/2025 [id number] / / [id number] Clip Resolution 360 Endo 235cm - [id number] Implanted:Qty: 1 on 12/10/2022 by Lacie England MD at OR [facility] [employer] : ENDOSCOPY [id number] 07/02/2025 [id number] / / [id number] Stent Axios [id number] - [id number] Implanted:Qty: 1 on 12/10/2022 by Lacie England MD at OR [facility] [employer] : ENDOSCOPY [id number] 04/06/2023 [id number] / / [id number] documented as of this encounter Visit Diagnoses Diagnosis Referred for management of medication therapy- Primary Encounter for long-term (current) use of other medications documented in this encounter Advance Directives Documents on File Type Date Recorded Patient Tobacco Weigher Expl anation Power of Brakes Inspector 07/30/2022 POWER OF A TTORNEY * Full [...] and were consensually agreed upon. Care Teams Public Health Advisor Relationship Specialty Start Date End Date Jairo Kingston MD [address] [place] [address] PCP - General 12/21/05 documented as of this encounter
--- OUTSIDE RECORDS SUMMARY | 2023-09-14 14:30 | External Medical Summary | Summary of Care ---
Author Name Unknown Organization [facility] Address [address] [facility] [address] Phone [phone] Care Team Providers Care [place] [employer] Name Role Phone Jairo Kingston MD Primary Care Provider +1- [phone] Encounter Details Date Type Department Care Team (Late st Contact Info) Description 09/06/2023 Population Health External Data Unspecified Department Allergies Active Allergy Reactions Criticality Noted Date Comments Pavan Inhibitors Other (Please comment) 0 Hyperkalemia documented as of this encounter (statuses as of 09/07/2023) Medications Medication Sig Dispensed Refills Start Date End Date Status oxygen GAS Use 3 L/min(Oxygen) as directed at bedtime. Use 2-3 l/min continuously to keep pulse ox above 90% Active CVS D3 50 MCG (1999) Oral Capsule (Cholecalciferol)Ind ications:Vitamin D deficiency TAKE 1 CAPSULE BY MOUTH EVERY DAY 90 Cap 1 02/12/2020 Active CPAP every night at bedtime. Active [...] 1 [place] before bedtime. 30 mL 1 01/11/2023 Active Furosemide 20 MG Oral Tablet (Lasix) TAKE 1 TABLET BY MOUTH twice DAILY 90 Tablet 3 01/18/2023 Active Octreotide Acetate 10 MG Intramuscular Kit (SandoSTATIN LAR Depot) Inject 10 mg into a large muscle every month for 6 doses. 6 Kit 01/24/2023 Active Additional Information Patient not taking.Reported [...] and 1 Tablet before bedtime. 60 Tablet 08/24/2023 Active Potassium Chloride Marla ER 10 MEQ Oral Tablet Extended Release Take 1 Tablet by mouth once a day on Tuesday, Tuesday, and Tuesday only. 12 Tablet 08/24/2023 Active Metoprolol Tartrate 25 MG Oral [...] as of this encounter (statuses as of 09/07/2023) Active Problems Problem Noted Date Diagnosed Date [...] 0 11/11/2022 Last Assessment & Plan: Allopurinol fdc No new attacks GINNY on CPAP 11/11/2022 [...] as of this encounter (statuses as of 09/07/2023) Resolved Problems Problem Noted Date Diagnosed Date [...] as of this encounter (statuses as of 09/07/2023) Immunizations Name Administration Dates Next Due COVID-19 [...] Description 09/09/2023 2:00 PM EDT [facility] [place] [address] [facility] [phone] Jairo Kingston MD [address] [facility] [address] 09/10/2023 11:30 AM EDT Scheduled Telephone [facility], [facility] [address] [facility] [place] [address] [facility], Nurse [facility] [address] [facility] [address] 09/13/2023 10:00 AM EDT Home Visit [facility], [facility] [address] [facility] [place] [address] Jenifer Linder RN [address] [place] [address] 09/23/2023 2:00 PM EDT Hem/Onc Treatment Hematology/Oncology Treatment, [place] [address] [facility] [place] [place] [phone] Hannah, Chair 8 Hem Onc Scenery [address] [facility] [address] 10/10/2023 9:00 AM EDT Office Visit [facility] [place] [address] [facility] [phone] Jairo Kingston MD [address] [facility] [address] 11/30/2023 8:30 AM EDT Procedure Only Endoscopy, [place] [address] [place] [address] Lacie England MD [address] [place] [address] 12/13/2023 3:00 PM EDT Office Visit Nephrology, Yuliet Young [address] [place] [address] Reggie Azevedo MD [address] [place] [address] 01/19/2024 4:45 PM EDT Imaging Radiology [address] [facility] [place] [address] 03/28/2024 3:20 PM EST Office Visit [facility] [address] [facility] [place] [phone] Shanika Fitzgerald DO [address] [facility] [place] [address] Scheduled Procedures Name Priority Associated Diagnoses Date/Ti [...] this encounter Medical Devices Implanted Type Area Plant Technician/Control Room Operator Device Identifier Shelf Expiration Date Model / Serial / Lot Graft Hemasheild 20mm [id number] - [id number] Implanted:Qty: 1 on 01/13/2009 at OR [facility] [place] N/A: Abdomen MICROVASIVE [id number] / / [id number] Clip Resolution 360 Endo 235cm - [id number] Implanted:Qty: 1 on 12/10/2022 by Lacie England MD at OR [facility] [employer] : ENDOSCOPY [id number] 07/02/2025 [id number] / / [id number] Clip Resolution 360 Endo 235cm - [id number] Implanted:Qty: 1 on 12/10/2022 by Lacie England MD at OR [facility] [employer] : ENDOSCOPY [id number] 07/02/2025 [id number] / / [id number] Stent Axios [id number] - [id number] Implanted:Qty: 1 on 12/10/2022 by Lacie England MD at OR [facility] [employer] : ENDOSCOPY [id number] 04/06/2023 [id number] / / [id number] documented as of this encounter Advance Directives Documents on File Type Date Recorded Patient Sports Editor Expl anation Power of Marketing Professor 07/30/2022 POWER OF A TTORNEY * Full [...] and were consensually agreed upon. Care Teams [place] Relationship Specialty Start Date End Date Jairo Kingston MD [address] [place] [address] PCP - General 12/21/05 documented as of this encounter
--- OUTSIDE RECORDS SUMMARY | 2023-09-14 14:30 | External Medical Summary | Summary of Care ---
Author Name Unknown Organization [facility] Address [address] [place] [address] Phone [phone] Care Team Providers Care Senior Financial Name Role Phone Jairo Kingston MD Primary Care Provider [phone]- [phone] Reason for Visit * Reason Onset Date Comments [facility]: Maintenance 09/10/2023 Encounter Details Date Type Department Care Team (Late st Contact Info) Description 09/10/2023 11:30 AM EDT Scheduled Telephone [facility], [facility] [address] [facility] [place] [address] [facility] 132 [facility] [place] [address] Allergies Active Allergy Reactions Criticality Noted Date Comments Pavan Inhibitors Other (Please comment) 0 Hyperkalemia documented as of this encounter (statuses as of 09/10/2023) Medications Medication Sig Dispensed Refills Start Date [...] 0.1 % Nasal Solution (Astelin) Administer 1 [place] into nostril in the morning and 1 [place] before bedtime. 30 mL 1 01/11/2023 Active Furosemide 20 MG Oral Tablet (Lasix) TAKE 1 TABLET BY MOUTH twice DAILY 90 Tablet 3 01/18/2023 Active Ezetimibe 10 MG Oral Tablet (Zetia)Indications:D yslipidemia, goal LDL below 70 TAKE ONE TABLET BY MOUTH EVERY MORNING 90 Tablet 3 02/04/2023 Active Docusate Sodium 100 MG Oral Capsule [...] Tuesday only 45 Capsule 3 08/24/2023 Active Atorvastatin Calcium 80 MG Oral Tablet (Lipitor) Take 1 Tablet by mouth daily. Active predniSONE 20 MG Oral Tablet (Deltasone) TAKE 1 TABLET BY MOUTH EVERY DAY FOR 2 DAYS 09/05/2023 Active Doxycycline Hyclate 100 MG Oral Capsule TAKE 1 CAPSULE BY MOUTH TWICE A DAY FOR 4 DAYS 09/05/2023 Active guaiFENesin ER 600 MG Oral Tablet Extended Release 12 Hour (Humibid LA) Take 1 Tablet by mouth in the morning and 1 Tablet before bedtime. Active Probiotic & Acidophilus Ex St Oral Capsule Take 1 Capsule by mouth in the morning and 1 Capsule at noon and 1 Capsule in the evening. Take with meals. Active documented as of this encounter (statuses as of 09/10/2023) Active Problems Problem Noted Date Diagnosed Date [...] 0 11/11/2022 Last Assessment & Plan: Allopurinol usp No new attacks GINNY on CPAP 11/11/2022 [...] as of this encounter (statuses as of 09/10/2023) Resolved Problems Problem Noted Date Diagnosed Date [...] as of this encounter (statuses as of 09/10/2023) Immunizations Name Administration Dates Next Due COVID-19 [...] encounter Miscellaneous Notes * Telephone Encounter - Fei, Leilani Dobbins RN - 09/10/2023 1:39 PM EDT [facility] Telephonic Nurse Follow-Up Call [facility] Subprogram: Short-Term Management (less than 3 months) Follow Up Call Type: Weekend Call 1345:PC to S[facility] Do[place] # Spoke to daughter Salina. Patient identified by full name and date of Acute issue requiring follow-up call: Other: ADRIANA call Admission Lilliam ANAND 09/02-09/05/23 - COPD exacerbation,complicated bronchitis Objective: 09/09/2023 2:12 PM 08/26/2023 2:19 PM 08/09/2023 10:03 AM 08/09/2023 10:00 AM 07/29/2023 2:56 PM VITALS ACROSS ENCOUNTERS BP 120/64 138/79 130/68 140/72 142/86 Pulse 73 85 67 68 Weight 94.1 kg 90.3 kg BMI 33.49 BMI 33.48 kg/m2 32.12 kg/m2 Remote Patient Monitoring: NONE Oxygen Needs: NO CHANGE from baseline supplemental oxygen needs 2 LPM DME Needs: NO DME needs identified Medications: New medication(s) added: Prednisone 20 mg x 2 more days, doxy BID x 4 more days, Mucinex BID x 4 days, nebs 3 x/day PCP f/u in 1 week Subjective: Condition Status: ADRIANA call Current Concerns: Daughter currently not with patient No acute concerns that she is aware of Antibiotics and prednisone completed, had PCP appointment yesterday Next [facility] visit - 09/13/23 - they are aware. Disposition: RN visit scheduled already for 09/13/23 Pt to call [facility] at for any new onset symptoms, illness, questions, or concerns prior to next scheduled follow up with [facility] [employer]. Future Visits Scheduled: Future Appointments-next 60 days Date/Time Provider Specialty Dept Phone 09/13/2023 10:00 AM Jenifer Linder RN [facility] [phone] 09/23/2023 2:00 PM Hannah, Chair 5 Hem Onc Scenery Hematology Oncology [phone] 10/10/2023 9:00 AM (Arrive by 8:45 AM) Jairo Kingston MD Family Medicine [phone] 11/30/2023 8:30 AM Lacie England MD Endoscopy [phone] 12/13/2023 3:00 PM (Arrive by 2:45 PM) Reggie Azevedo MD Nephrology [phone] 01/19/2024 4:45 PM CT1 [facility] Radiology [phone] 03/28/2024 3:20 PM (Arrive by 3:05 PM) Shanika Fitzgerald DO Sleep Disorders [phone] [facility] Television Specialist/ [facility] Toll Free Number: documented in this encounter Plan of Treatment Upcoming Encounters Date Type Department Care Team (Late st Contact Info) Description 09/13/2023 10:00 AM EDT Home Visit [facility], [facility] [address] [facility] [place] [address] Jenifer Linder RN 132 [facility] [place] [address] 09/23/2023 2:00 PM EDT Hem/Onc Treatment Hematology/Oncology Treatment, [place] [address] [place] [phone] Hannah, Chair 5 Hem Onc Scenery [address] [place] [address] 10/10/2023 9:00 AM EDT [address] [address] Jairo Kingston MD [address] [place], [place] [address] [address] 11/30/2023 8:30 AM EDT Procedure Only Endoscopy, [place] [facility] [address] [place] [address] Lacie England MD [address] [place] [address] 12/13/2023 3:00 PM EDT Office Visit Nephrology, [facility] [address] [place], [place] [address] Reggie Azevedo MD [address] [place], [place] [address] 01/19/2024 4:45 PM EDT Imaging Radiology [address] 132 [facility] [place] [address] 03/28/2024 3:20 PM EST Office Visit Sleep Disorders [facility] 132 [facility] [place] [phone] Shanika Fitzgerald DO [address] [place] [address] Scheduled Procedures Name Priority Associated Diagnoses Date/Ti [...] this encounter Medical Devices Implanted Type Area Graphic User Interface Designer Device Identifier Shelf Expiration Date Model / Serial / Lot Graft Hemasheild 20mm [id number] - [id number] Implanted:Qty: 1 on 01/13/2009 at OR [facility] N/A: Abdomen MICROVASIVE [id number] / / [id number] Clip Resolution 360 Endo 235cm - [id number] Implanted:Qty: 1 on 12/10/2022 by Lacie England MD at OR [facility] [employer] : ENDOSCOPY [id number] 07/02/2025 [id number] / / [id number] Clip Resolution 360 Endo 235cm - [id number] Implanted:Qty: 1 on 12/10/2022 by Lacie England MD at OR [facility] [employer] : ENDOSCOPY [id number] 07/02/2025 [id number] / / [id number] Stent Axios [id number] - [id number] Implanted:Qty: 1 on 12/10/2022 by Lacie England MD at OR [facility] [employer] : ENDOSCOPY [id number] 04/06/2023 [id number] / / [id number] documented as of this encounter Advance Directives Documents on File Type Date Recorded Patient Correspondence Renew Clerk Expl anation Power of Customer Quality Engineer 07/30/2022 POWER OF A TTORNEY * Full [...] and were consensually agreed upon. Care Teams Senior Financial Relationship Specialty Start Date End Date Jairo Kingston MD [address] [place] [address] PCP - General 12/21/05 documented as of this encounter
--- NOTE | 2023-09-14 14:40 | Anesthesiology Progress Note ---
Date of Service September 14, 2023 Anesthesia Post Procedure Vital Signs Vital Signs: Temp Pulse Pulse Resp BP BP Pulse Ox 09/14/23 14:20 70 20 103/63 100 09/14/23 12:34 36.2 C L 60 20 172/79 H 96 09/14/23 12:07 61 18 156/82 H 96 09/14/23 10:00 60 18 146/76 H 98 09/14/23 08:01 69 09/14/23 07:58 09/14/23 07:47 66 20 133/95 97 09/14/23 06:00 68 18 164/90 H 97 09/14/23 04:06 69 18 179/99 H 97 09/14/23 02:50 68 18 177/90 H 98 09/14/23 02:50 09/14/23 02:19 67 09/14/23 02:00 67 18 170/90 H 99 09/14/23 00:39 09/14/23 00:39 70 18 149/83 H 100 09/14/23 00:00 70 18 149/83 H 98 09/13/23 22:52 71 18 141/81 H 98 09/13/23 22:31 73 09/13/23 22:01 36.8 C 74 20 134/69 93 Pulse Ox O2 Del Method O2 Del Method O2 Flow Rate O2 Flow Rate 09/14/23 14:20 Oxymask 5 09/14/23 12:34 Nasal Cannula 3 09/14/23 12:07 Nasal Cannula 3 09/14/23 10:00 Nasal Cannula 3 09/14/23 08:01 09/14/23 07:58 Nasal Cannula 3 09/14/23 07:47 Nasal Cannula 3 09/14/23 06:00 Nasal Cannula 3 09/14/23 04:06 Nasal Cannula 3 09/14/23 02:50 Nasal Cannula 3 09/14/23 02:50 99 Nasal Cannula 3 09/14/23 02:19 09/14/23 02:00 Nasal Cannula 3 09/14/23 00:39 Nasal Cannula 3 09/14/23 00:39 Nasal Cannula 3 09/14/23 00:00 Nasal Cannula 3 09/13/23 22:52 Nasal Cannula 3 09/13/23 22:31 09/13/23 22:01 Nasal Cannula 3 Transfer of Care Handoff Completed per policy Notes Mental Status: alert / awake / arousable Patient Amnestic to Procedure: Yes Nausea / Vomiting: adequately controlled Pain: adequately controlled Airway Patency, RR, SpO2: stable & adequate BP & HR: stable & adequate Hydration State: stable & adequate Anesthetic Complications: no major complications apparent and Pt Satisfied with anesthetic care Notes: wheezing towards the end of case, rx duoneb in endo pacu. ok to d/c to floor.
[2023-09-14] MEDS: ALBUT/IPRATROP 3MG/0.5MG NEB 3 ML VIAL NEB STA (14:44)
--- OUTSIDE RECORDS SUMMARY | 2023-09-14 15:13 | External Medical Summary | Summary of Care ---
Author Name Unknown Organization [facility] Address [address] [place] [address] Phone [phone] Care Team Providers Care Sticker Hand Name Role Phone Jairo Kingston MD Primary Care Provider +1- [phone] Reason for Visit * Reason Onset Date Comments Appointment 09/13/2023 Encounter Details Date Type Department Care Team (Late st Contact Info) Description 09/13/2023 Telephone [facility], [place] [address] [place] [address] Services, Scheduling [address] [place] [address] Appointment (//) Allergies Active Allergy Reactions Criticality Noted Date [...] % Nasal Solution (Astelin) Administer 1 [place] into nostril in the morning and 1 [place] before bedtime. 30 mL 1 01/11/2023 Active [...] 0 11/11/2022 Last Assessment & Plan: Allopurinol care home No new attacks GINNY on CPAP 11/11/2022 [...] encounter Miscellaneous Notes * Telephone Encounter - Any Allen OSA - 09/13/2023 3:39 PM EDT Request from RNCM to schedule a fu with [facility] as pt wants to get back to them and poss Dr George. I got appt on 09/18 and called and daughter was taking care of mother but said it would need to be late rin the month dt the family arranging a ride to and from around their work schedules. Asked me to cb tomorrow with appt at same phone # soI called and got appt moved to 10/02@1pm instead and will cb tomorrow with this info for her documented in this encounter Plan of Treatment Upcoming Encounters Date Type Department Care Team (Late st Contact Info) Description 09/23/2023 2:00 PM EDT Hem/Onc Treatment Hematology/Oncology Treatment, [place] [address] [place] [address] Hannah, Chair 5 Hem Onc Scenery [address] [facility] [address] 10/03/2023 1:00 PM EDT [facility] 132 [facility] [place] [address] Devin Hodge MD [address] [place] [facility] [place] [address] 10/06/2023 4:00 PM EDT Home Visit [facility], [facility] 132 [facility] [place] [address] Jenifer Linder, RN 132 [facility] [place] [address] 10/10/2023 9:00 AM EDT Office Visit [facility] [address] [place] [phone] Jairo Kingston MD [address] [place] [address] 11/30/2023 8:30 AM EDT Procedure Only Endoscopy, [place] [facility] [address] [facility] [place] [address] Lacie England MD [address] [place] [address] 12/13/2023 3:00 PM EDT Office Visit Nephrology, [facility] [address] [place] [address] Reggie Azevedo MD [address] [place] [address] 01/19/2024 4:45 PM EDT Imaging Radiology [address] [facility] [place] [address] 03/28/2024 3:20 PM EST Office Visit Sleep Disorders [facility]tr [facility] 132 [facility] [place] [phone] Shanika Fitzgerald DO [facility] [place] [address] Scheduled Procedures Name Priority Associated Diagnoses Date/Ti [...] this encounter Medical Devices Implanted Type Area Crime Specialist Device Identifier Shelf Expiration Date Model / Serial / Lot Graft Hemasheild 20mm [id number] - [id number] Implanted:Qty: 1 on 01/13/2009 at OR [facility] N/A: Abdomen MICROVASIVE [id number] / / [id number] Clip Resolution 360 Endo 235cm - [id number] Implanted:Qty: 1 on 12/10/2022 by Lacie England MD at OR [facility] [employer] : ENDOSCOPY [id number] 07/02/2025 [id number] / / [id number] Clip Resolution 360 Endo 235cm - [id number] Implanted:Qty: 1 on 12/10/2022 by Lacie England MD at OR [facility] [employer] : ENDOSCOPY [id number] 07/02/2025 [id number] / / [id number] Stent Axios [id number] - [id number] Implanted:Qty: 1 on 12/10/2022 by Lacie England MD at OR [facility] [employer] : ENDOSCOPY [id number] 04/06/2023 [id number] / / [id number] documented as of this encounter Advance Directives Documents on File Type Date Recorded Patient Vamp Strap Ironer Expl anation Power of Tea And Spice Supervisor 07/30/2022 POWER OF A TTORNEY * Full [...] and were consensually agreed upon. Care Teams Sticker Hand Relationship Specialty Start Date End Date Jairo Kingston MD [address] [place] [address] PCP - General 12/21/05 documented as of this encounter
[2023-09-14] MEDS: KETAMINE HCL 10MG/ML SYR ONE (15:22)
[2023-09-14] MEDS: PHENYLEPHRINE 100MCG/ML 10ML SYR IV ONE (15:22)
[2023-09-14] MEDS: LIDOCAINE 2% 2 ML VIAL/AMP(20MG/ML) INFIL ONE ×2 (15:22→15:24)
[2023-09-14] MEDS: PROPOFOL IV EMULSION 10 MG/ML 20 ML VIAL IV ONE ×2 (15:22→15:23)
[2023-09-14] MEDS: BENZOCAINE/TETRACAIN/BUTAM 50 APPLN/5 GM CAN EXT ONE (15:23)
[2023-09-14] MEDS ORDERED: SODIUM CHLORIDE 0.9% 250 ML IV PRN (16:57)
--- NOTE | 2023-09-14 17:07 | Communication Note ---
Date of Service: September 14, 2023 Patient seen and examined at bedside after EGD. He was admitted early this morning- Please see H and P note for details. Seen by GI and had EGD done which shows- Findings: The esophagus was normal. The entire examined stomach was normal and multiple endoclips were noted from prior treatment of AVM's. One non-bleeding superficial duodenal ulcer with no stigmata of bleeding was found in the duodenal bulb adjacent to the site of the Cholecystoduodenostomy stent. The lesion was 4 mm in largest dimension. To prevent bleeding one hemostatic clip was successfully placed (MR conditional). Clip adult basic studies teacher: Coaxis. There was no bleeding at the end of the procedure. Impression: - Normal esophagus. - Normal stomach. - Non-bleeding duodenal ulcer with no stigmata of bleeding. Clip (MR conditional) was placed. Clip adult basic studies teacher: Coaxis. - No specimens collected. He feels fine. Had a BM here but no black, tarry or blood but brown. He is hung ry and asking for food. On 3 L NC post anesthesia. AAO, chest clear, murmur +. Latest Hb 9.3. Will trend H and H, will type and cross and have 2 U of blood ready in case he needs it but I anticipate he will note need it. He agrees to transfusion if needed.
[2023-09-14 17:25] LABS: Hematocrit (blood only) 30.4 % (42.0-52.0); Hemoglobin 9.7 g/dl (14.0-18.0)
[2023-09-14] MEDS ORDERED: Nursing to Pharmacy Communication SCH (18:45)
[2023-09-14 20:14] LABS: Hematocrit (blood only) 28.3 % (42.0-52.0); Hemoglobin 9.1 g/dl (14.0-18.0)
[2023-09-14] MEDS: ALBUT/IPRATROP 3MG/0.5MG NEB 3 ML VIAL INH PRN (20:26)
[2023-09-15 06:25] LABS: BUN Creatinine Ratio 13.2 (10-20); Calcium 7.8 mg/dl (8.6-10.3); Est GFR (African American) 41.2 ml/min; Est GFR (Non-African American) 35.5 ml/min; Potassium 3.7 mmol/L (3.5-5.1)
[2023-09-15 07:23] LABS: Hematocrit (blood only) 28.7 % (42.0-52.0); Hemoglobin 9.2 g/dl (14.0-18.0); Mean Corpuscular Hemoglobin 33.2 pg (25.0-34.0); Mean Corpuscular Hgb Conc 32.1 g/dL (32.0-36.0); Mean Corpuscular Volume 103.6 fL (80.0-100.0); RDW Coefficient of Variation 14.7 % (11.5-14.5); RDW Standard Deviation 56.6 fL (36.4-46.3); Red Blood Count 2.77 M/uL (4.70-6.10); White Blood Count 8.83 K/ul (4.8-10.8)
--- NOTE | 2023-09-15 10:30 | Gastroenterology Progress Note ---
Date of Service September 15, 2023 Assessment & Plan (1) Duodenal ulcer: Plan: -Continue PPI; at discharge would advise he continue Protonix 40 mg BID indefinitely. -Continue to monitor H/H and monitor for further GI bleeding. Admission and Anticipated Discharge Date Admission Date: September 14, 2023 Supervising Physician Co-Signing Physician Notes Agree with CORINNA Reyes as above Patient was discharged prior to my evaluation. Subjective Patient is a 73 yo male with melena. H/H 9.2/28.7 today. No further melena. He underwent an EGD on 09/14/23 that indicated a duodenal ulcer at the site of a cholecystoduodenostomy stent. This was clipped. Patient is on a PPI. Review of Systems Gastrointestinal: no abdominal pain and no melena Physical Exam Constitutional: well developed Respiratory: normal respiratory effort Gastrointestinal (Abdomen): normal bowel sounds, soft, nontender, no hepatosplenomegaly Psychiatric: Orientation: alert and oriented x 3 Results & Data Results & Data Vital Signs (Past 12 Hours) Vital Signs Temp Pulse Resp BP Pulse Ox Pulse Ox O2 Del Method 09/15/23 07:18 36.6 C 61 20 153/69 H 94 Nasal Cannula 09/15/23 03:57 36.7 C 61 18 135/78 95 Room Air 09/15/23 02:24 96 09/14/23 22:34 36.6 C 60 18 134/69 96 Room Air O2 Del Method O2 Flow Rate O2 Flow Rate 09/15/23 07:18 2 09/15/23 03:57 09/15/23 02:24 Nasal Cannula 3 09/14/23 22:34 PG Care Time/CCT Total # of Minutes Spent Total Time Spent with Patient: Total time spent is greater than 50% in coordination of care (as documented) at patient's floor/unit and/or counseling patient: Coding Level of Care Code 92308 SUB INP/OBS CARE 3/50MIN Diagnoses Duodenal ulcer K26.9
[2023-09-15 12:13] LABS: Hematocrit (blood only) 30.9 % (42.0-52.0); Hemoglobin 9.7 g/dl (14.0-18.0)
--- NOTE | 2023-09-15 12:45 | Discharge Summary ---
Date of Service September 15, 2023 Admission HPI Per Admitting Provider 72-year-old male with past medical history significant for hyperlipidemia, hyperparathyroidism, idiopathic chronic gout, COPD on home oxygen 3 L, obstructive sleep apnea on CPAP, hypertension, left renal artery stenosis, abdominal aortic aneurysm, severe aortic stenosis, chronic diastolic CHF, shaggy aorta syndrome, chronic kidney stage IV, iron deficiency anemia due to chronic blood loss, [place]strm's macroglobulinemia, history of AAA repair, history of CVA, history of SVT, history of biliary stent insertion, multiple admission for GI bleed , EGD February 2023 showed 2 nonbleeding angioectasias in the stomach and was recently in the hospital for COPD exacerbation and acute complicated bronchitis presents today because of black stools. Denies abdominal pain. No nausea vomiting. Normal micturition. Denies chest pain or shortness of breath. Has some cough. Bringing some phlegm. No headache. No runny nose or sore throat. Hard of hearing. Hemodynamics are okay. Resting comfortably. Past med history. As mentioned above Past surgical history. Abdominal aortic aneurysm repair, colonoscopy with biopsy, EGD, EGD with cyst drainage, EGD with endoscopic ultrasound, ERCP, incisional hernia repair and lysis of adhesions laparoscopically. Lumbar disc excision, tonsillectomy, tear duct system surgery. Social history. . Quit smoking in 2008. Smoked 1 pack a day for 35 years. Alcohol 3 standard drinks per week. No drug use. Family history. Father had AAA. Mother had dialysis. Brother hypertension. Heart disease. Sister has heart disease. Admission Exam Per Admitting Provider General- Not in distress Head- atraumatic Eyes- PERRL. ENT- oropharynx clear Neck- supple, no JVD. Lungs- clear to auscultation no wheezing or crackles Heart- regular rhythm; no murmur, no gallop. Abdomen- normal bowel sounds, soft, nontender, no distension. Extremities- trace pretibial edema present no erythema seen Neuro- alert, oriented ; PERRL,no facial palsy; no dysarthria; moves extremities. Skin- warm & dry Principal Diagnosis UGI bleed Discharge Exam General: Sitting comfortably in bed eating lunch, not in distress, on room air HEENT: EOMI, [place], MMM Chest: Clear breath sounds bilaterally, no wheezes or crackles CVS: Regular rate and rhythm, normal heart sounds, no murmur Abdomen: Soft, non tender, not distended, normal bowel sounds Neuro: Awake, alert, oriented, conversing well, non focal Extremities: No cyanosis, clubbing or edema Discharge Data Allergies Allergy/AdvReac Type Severity Reaction Status Date / Time RUBENS Inhibitors AdvReac Unknown DROPS Verified 05/05/23 13:26 BLOOD PRESSURE lisinopril AdvReac Unknown DROPS Verified 05/05/23 13:26 BLOOD PRESSURE Consultations 09/13/23 23:55 ED Decision to Admit Stat 09/14/23 08:00 Consult Gastroenterology Routine Procedures Performed Operation Date: 09/14/23 16:30 Actual Procedures p EGD Hemostasis - Landon Roper Case, DO Laboratory Results WBC 8.83 K/ul (4.8-10.8) 09/15/23 05:31 RBC 2.77 M/uL (4.70-6.10) L 09/15/23 05:31 Hgb 9.7 g/dl (14.0-18.0) L 09/15/23 11:45 Hct 30.9 % (42.0-52.0) L 09/15/23 11:45 MCV 103.6 fL (80.0-100.0) H 09/15/23 05:31 MCH 33.2 pg (25.0-34.0) 09/15/23 05:31 MCHC 32.1 g/dL (32.0-36.0) 09/15/23 05:31 RDW Std Deviation 56.6 fL (36.4-46.3) H 09/15/23 05:31 RDW Coeff of Chaka 14.7 % (11.5-14.5) H 09/15/23 05:31 Plt Count K/uL (130-400) 09/15/23 05:31 MPV fL (9.4-12.4) 09/15/23 05:31 Immature Gran % (Auto) 0.6 % 09/14/23 05:38 Neut % (Auto) 71.9 % 09/14/23 05:38 Lymph % (Auto) 10.3 % 09/14/23 05:38 [place] % (Auto) 9.4 % 09/14/23 05:38 Eos % (Auto) 7.2 % 09/14/23 05:38 Baso % (Auto) 0.6 % 09/14/23 05:38 Neut # (Auto) 6.88 K/uL (1.40-6.50) H 09/14/23 05:38 Lymph # (Auto) 0.99 K/uL (1.20-3.40) L 09/14/23 05:38 [place] # (Auto) 0.90 K/uL (0.11-0.59) H 09/14/23 05:38 Eos # (Auto) 0.69 K/uL (0.00-0.50) H 09/14/23 05:38 Baso # (Auto) 0.06 K/uL (0.00-0.20) 09/14/23 05:38 Immature Gran # (Auto) 0.06 K/uL (0.01-0.20) 09/14/23 05:38 Platelet Estimate Normal (Normal) 09/14/23 05:38 Plt Count ,Citrate 154 K/uL (130-400) 09/15/23 11:45 PT 11.2 Seconds (9.0-12.0) 09/13/23 22:20 INR 1.0 (0.9-1.1) 09/13/23 22:20 APTT 28 Seconds (21-31) 09/13/23 22:20 PTT Ratio 1.0 09/13/23 22:20 Sodium 138 mmol/L (136-145) 09/15/23 05:31 Potassium 3.7 mmol/L (3.5-5.1) 09/15/23 05:31 Chloride 108 mmol/L (98-107) H 09/15/23 05:31 Carbon Dioxide 23 mmol/L (21-32) 09/15/23 05:31 Anion Gap 7 (3-11) 09/15/23 05:31 BUN 24 mg/dl (6-23) H 09/15/23 05:31 Creatinine 1.82 mg/dl (0.6-1.4) H D 09/15/23 05:31 Est Cr Clr Drug Dosing 37.0 ml/min 09/15/23 05:31 Est GFR ( Amer) 41.2 ml/min 09/15/23 05:31 Est GFR (Non-Af Amer) 35.5 ml/min 09/15/23 05:31 BUN/Creatinine Ratio 13.2 (10-20) 09/15/23 05:31 Glucose 100 mg/dl (70-99(Fasting)) H 09/15/23 05:31 Calcium 7.8 mg/dl (8.6-10.3) L 09/15/23 05:31 Magnesium 1.9 mg/dl (1.7-2.4) 09/14/23 05:38 Total Bilirubin 0.3 mg/dl (0.2-1.0) 09/13/23 22:20 AST 21 U/L (13-39) 09/13/23 22:20 ALT 20 U/L (7-52) 09/13/23 22:20 Alkaline Phosphatase 90 U/L (34-104) 09/13/23 22:20 Total Protein 6.8 gm/dl (6.0-8.3) 09/13/23 22:20 Albumin 3.6 gm/dl (3.4-5.0) 09/13/23 22:20 Globulin 3.2 gm/dl (2.5-4.0) 09/13/23 22:20 Albumin/Globulin Ratio 1.1 (0.9-2) 09/13/23 22:20 POC Stool Occult Blood Cancelled 09/13/23 23:47 Blood Type A Positive 09/13/23 22:24 Antibody Screen NEGATIVE 09/13/23 22:24 Hospital Course (1) Duodenal ulcer: (2) Gout: (3) GI bleed: (4) Current use of superintendent terminal anticoagulation: Plan Patient presented with melena/UGI bleed and was seen by GI. He was on IV PPI drip. His home eliquis was held. He underwent EGD yesterday which showed findings as below: EGD findings: The esophagus was normal. The entire examined stomach was normal and multiple endoclips were noted from prior treatment of AVM's. One non-bleeding superficial duodenal ulcer with no stigmata of bleeding was found in the duodenal bulb adjacent to the site of the Cholecystoduodenostomy stent. The lesion was 4 mm in largest dimension. To prevent bleeding one hemostatic clip was successfully placed (MR conditional). 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 There was no bleeding at the end of the procedure. Impression: - Normal esophagus. - Normal stomach. - Non-bleeding duodenal ulcer with no stigmata of bleeding. Clip (MR tayla) was placed. 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 - No specimens collected. He remained stable afterwards. Hemodynamically stable throughout. Hemoglobin trend 10->10->9.3->9.7->9.1->9.2->9.7. No more bleeding noted here. He did not require any blood transfusion. Spoke with GI and okay to resume eliquis and okay to discharge home. He is comfortable and stable for discharge home. He has been ambulating independently without issues. He denies any needs at discharge. He will continue protonix 40 mg bid. Total Time Total Time Spent Total Time Spent (In Minutes): 32 Discharge Plan Discharge Items Patient Disposition: Home - Self-Care Reason For Visit: MELENA Discharge Diagnosis: UGI bleed with melena Condition on Discharge: Fair Activity: Resume your previous activity Non-emergency contact: Primary Care Provider Call non-emergency contact if: you have any medication questions and your sym ptoms worsen Follow-up/Referrals: Jairo Kingston MD [Primary Care Provider] - (Date & Time 09/19/2023 11:00 AM Provider Jairo Kingston MD Department [facility]) Diet: Regular Addtl Attending Provider Instructions: Continue protonix twice daily indefinitely Follow up with your family doctor and GI doctor Avoid over the counter pain medications like aleve, motrin etc. Okay with tylenol Pending Studies at Discharge: No Stand-Alone Forms: My [facility] Parchment [employer], Smoking Cessation Medications and DC Order Prescriptions: Continued Trelegy Ellipta 100-62.5-25 mcg blister with device 1 inh inhalation QAM fluticasone propionate 50 mcg/actuation spray,suspension 2 spray INTRANASAL DAILY ascorbic acid (vitamin C) 250 mg Tablet 125 mg PO QDL atorvastatin 80 mg tablet 80 mg PO QAM Patient Comments: around 11 am or so. ipratropium-albuterol 0.5 mg-3 mg(2.5 mg base)/3 mL solution for nebulization 3 ml INHALATION Q6H PRN (Reason: Shortness Of Breath Or Wheezing) allopurinol 300 mg tablet 150 mg PO DAILY Patient Comments: around 11 am or so. furosemide 20 mg tablet 20 mg PO BID azelastine 137 mcg (0.1 %) aerosol,spray 1 spray INTRANASAL AMHS albuterol sulfate 90 mcg/actuation HFA aerosol inhaler 2 puff INHALATION Q4H PRN (Reason: Wheezing) ezetimibe 10 mg tablet 10 mg PO QAM potassium chloride [Klor-Con M10] 10 mEq tablet,ER particles/crystals 10 meq PO 3XWK Patient Comments: mon, tue and tue morning hours. Rx Instructions: on tue, tue and tuesday metoprolol tartrate 25 mg tablet 25 mg PO BID docusate sodium 100 mg Capsule 100 mg PO BID PRN (Reason: Constipation) cholecalciferol (vitamin D3) [Vitamin D3] 50 mcg (2,000 unit) Tablet 50 mcg PO DAILY Patient Comments: around 11 am . pantoprazole 40 mg tablet,delayed release (DR/EC) 40 mg PO AMHS Qty: 60 0RF Eliquis 2.5 mg tablet 2.5 mg PO BID Advanced Probiotic 625 mg (10 billion cell) Capsule 1 cap PO DAILY Qty: 14 0RF Discharge Orders: Discharge Order (Routine); Ordered 09/15/23 Ordered By: Mohinder Zepeda Admission Data Admit Date/Time: 09/14/23 01:39 Attending Provider: Mohinder Zepeda Admit Provider: Corby Wright Primary Care Provider: Jairo Kingston Other Providers: Corby Wright; Dorinda Hanson; Landon Álvarez; Elo Delacruz; Nyla Vinson; Kassy Cabrera; Bárbara Leonardo; Reena Mckenzie; Jason,Efrem; Toi Yee; Redd Sen; Jayna Montana; Radha Rees; Sherri English; Anuradha Joe; Judy Nelson; Teresita Sosa; Lacie England; Nikhil Swift; Rich Marmolejo; Mine Hernandez; Alo Bailey Jr
== END 2023-09-15 14:18 | disposition home or self-care (01) | DRG 378 ==
LOC: ED 21:46 → EDINP 09-14 01:39 → SUATTDRO 09-14 01:39 → 4W 09-14 02:24

== ENCOUNTER 2024-04-26 08:33 | Inpatient (IN) ==
--- NOTE | 2024-04-26 08:44 | Emergency Department Note ---
Impression & Plan Acute upper gastrointestinal bleeding, Anemia, Elevated troponin I level ED Provider Note NAME: ZULMA MERA AGE: 73 SEX: M : 1950 ARRIVES VIA: Ambulance INFORMANT: Patient, EMS ED PROVIDER(S): Aaron Knight DO CHIEF COMPLAINT: GI bleeding HPI: The patient is a 73-year-old male who presented to the emergency department for an evaluation of abdominal pain and black stool. The patient has a history of anemia in the past. He also has a history of COPD and upper GI bleeding. The patient states he did have some right upper quadrant tenderness briefly but he states he has no pain at this time. He denies having any hematemesis. The patient states the symptoms began only over the last 48 hours. The patient called 911 and arrived to the emergency department via ambulance. He did receive Zofran prior to arrival. He stated that he no longer has nausea. ROS: See above HPI for pertinent positives & negatives. A total of 10 systems reviewed and were otherwise negative. PAST MEDICAL HISTORY: See Below PAST SURGICAL HISTORY: See Below FAMILY HISTORY: See Below SOCIAL HISTORY: See Below HOME MEDICATIONS: See Below ALLERGIES: See Below VITALS: See Below PHYSICAL EXAMINATION: GENERAL: Patient is awake alert in no acute distress patient is resting comfortably and showing no signs of anxiety EYES: The conjunctivae are clear. The pupils are round and reactive. EARS, NOSE, MOUTH AND THROAT: The nose is without any evidence of any deformity. NECK: The neck is nontender and supple. RESPIRATORY: Normal respiratory effort is noted there is no evidence of wheezing rhonchi or rales CARDIOVASCULAR: Regular rate and rhythm noted there no murmurs rubs or gallops normal S1 normal S2. GASTROINTESTINAL: The abdomen is soft. Abdomen is nontender. Rectal exam revealed dark stool that was heme positive. MUSCULOSKELETAL/EXTREMITIES: There is no evidence of gross deformity full range of motion is noted in the hips and shoulders. SKIN: There is no obvious evidence of any rash. There are no petechiae, pallor or cyanosis noted. NEUROLOGIC: Patient is awake alert and oriented x3 MEDICAL DECISION MAKING: The patient is a 73-year-old male who presented to the emergency department for an evaluation of GI bleeding. The patient has a history of anticoagulation use. He also has a history of gastric ulcer and gastritis. The patient presented to the emergency department after noticing dark stool. The patient was treated with Protonix and Pepcid in the emergency department. He was reevaluated multiple times. Vital signs are reassuring. I discussed the patient's laboratory and radiographic studies with him. I discussed his condition with the on-call [facility] hospitalist. They have agreed to evaluate the patient in the emergency department for further management and disposition. Triage Nursing notes reviewed. Prior medical records reviewed Vital Signs: reviewed and remarkable for no significant abnormalities Differential diagnosis: Diverticulosis, AVM, coagulopathy, colitis, inflammatory bowel disease, malignancy, Linnette-Menendez tear, esophagitis, peptic ulcer disease, variceal bleed, gastritis, epistaxis, fissure, hemorrhoids, as well as other pathologies. ER treatment provided: See below Diagnostics interpreted by me: ECG: EKG was obtained in the emergency department. My interpretation is atrial fibrillation at 100 bpm. There was no PVCs noted. This was compared to a tracing from September 05, 2023. Normal sinus rhythm has been replaced by atrial fibrillation compared to the previous tracing. Cardiac Monitoring: An order was placed for continuous cardiac monitoring. The monitor shows a rate of 73 bpm with atrial fibrillation. Laboratory studies: As stated above and show below. Imaging studies: See below. Radiographic imaging was reviewed by myself Consultation(s): I discussed this case with the Jaimie who is on-call for the [facility]ist group. Past Med/Surg History Problem List (Updated 04/26/24 @ 10:56 by Aaron Knight DO) Elevated troponin I level (Acute) Anemia (Acute) Acute upper gastrointestinal bleeding (Acute) Duodenal ulcer Pulmonary edema (Acute) Current use of correction anticoagulation (Acute) SOB (shortness of breath) (Acute) Anemia (Acute) GI bleed (Acute) Gout (Chronic) History of GI bleed Sinus pause Labile blood pressure Acute respiratory failure with hypoxia Bronchitis Acute on chronic kidney failure COPD exacerbation (Acute) Abnormal CXR Stage 3b chronic kidney disease (CKD) Anemia due to chronic kidney disease CKD (chronic kidney disease) (Acute) Chronic anemia (Acute) Acute kidney injury superimposed on chronic kidney disease Melena Acute GI bleeding (Acute) COPD with exacerbation (Acute) Acute upper GI bleed (Acute) Symptomatic anemia (Acute) Anemia requiring transfusions (Acute) Recurrent gastrointestinal hemorrhage Shaggy aorta syndrome SOB (shortness of breath) (Acute) Bronchitis (Acute) COPD exacerbation (Acute) Wheezing (Acute) Anemia (Acute) Elevated troponin (Acute) Acute and chronic respiratory failure Goals of care, counseling/discussion Medical History MGUS (monoclonal gammopathy of unknown significance) CRF (chronic renal failure) History of cholelithiasis Chronic respiratory failure with hypoxia, on home O2 therapy GERD (gastroesophageal reflux disease) COPD (chronic obstructive pulmonary disease) exacerbation Dec 2022 - Hospitalized [facility] Dec 24-2022. Med change and effective since. Denies current issues. O2 2 L HS & PRN throughout day. PFO (patent foramen ovale) Wide-complex tachycardia CVA (cerebral vascular accident) Gastroparesis pt is not sure about this dx. History of colon polyps x1 a few yrs ago/follow up in 5 yrs. 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 Ascending thoracic aorta at the level of the right pulmonary artery 4.2 cm unchanged. 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 Descending thoracic aorta at the level of the left atrium again up to 4.[address] scan Dec 2022 - pt told everything was stable. 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 follows with Dr. Jefferson Gastric ulcer Hearing deficit BL NAILS Hx SBO History of GI bleed Stroke X 2 (LAST EVENT 05/2020) CONT. TO HAVE SLIGHT BALANCE ISSUES Sleep apnea CPAP Hx of gout PSVT (paroxysmal supraventricular tachycardia) Aortic stenosis Thoracic aortic atherosclerosis, densely calcified coronary arteries, severely calcified aortic valve, aneurysmal outpouching of the aortic arch. CKD (chronic kidney disease), stage III follows with [facility] [place] nephrology Hyperlipidemia Hypertension Surgical History History of tonsillectomy History of esophagogastroduodenoscopy (EGD) most recent a few months ago for a bleed, this is a follow up procedure. History of tooth extraction History of tonsillectomy and adenoidectomy pt not sure about adenoids. History of lumbar surgery 1999 S/P AAA repair 01/13/2009 - Dr Suazo ([facility]) Hx of colonoscopy Hx of hernia repair lysis of adhesions, incisional hernia repair laparoscopically 01/28/2010 at [facility] - Dr Desouza Family History Other AAA (abdominal aortic aneurysm) Hypertension No family history of adverse response to anesthesia Social History Smoking Status: Former smoker Tobacco Type: Cigarettes Age Started Using Tobacco: ; Cigarettes Per Day: Former cigarette. Quit 1998; Second Hand Exposure: No; Do You Dip or Chew Tobacco: No; Hx Alcohol Use: Yes Alcohol type: beer Alcohol type Comment: 3 beers a day Hx Substance Use: No Preferred Language: [place]guill[place] Communication Ability: Effective Communication Ability Comment: pt communication effective Change Room Attendant Required: No Beliefs That Will Affect Care: None marital status: Current Living Situation: Spouse Current Living Situation Comment: and daughter current occupational status: employed Feels Safe at Home: Yes Assistive Devices: CPAP and Oxygen - at Night Allergies Allergies Allergy/AdvReac Type Severity Reaction Status Date / Time RUBENS Inhibitors AdvReac Unknown DROPS Verified 05/05/23 13:26 BLOOD PRESSURE lisinopril AdvReac Unknown DROPS Verified 05/05/23 13:26 BLOOD PRESSURE Home Meds Home Medications Medication Instructions Recorded Confirmed albuterol sulfate 90 mcg/actuation 2 puff inhalation Q4H PRN Wheezing 01/30/23 09/14/23 aerosol inhaler allopurinol 300 mg tablet 150 mg PO DAILY 01/30/23 09/14/23 atorvastatin 80 mg tablet 80 mg PO QAM 01/30/23 09/14/23 azelastine 137 mcg (0.1 %) nasal 1 spray intranasal AMHS Nasal 01/30/23 09/14/23 spray Congestion cholecalciferol (vitamin D3) 50 50 mcg PO DAILY 01/30/23 09/14/23 mcg (2,000 unit) tablet (Vitamin D3) docusate sodium 100 mg capsule 100 mg PO BID PRN Constipation 01/30/23 09/14/23 ezetimibe 10 mg tablet 10 mg PO QAM 01/30/23 09/14/23 furosemide 20 mg tablet 20 mg PO BID 01/30/23 09/14/23 ipratropium 0.5 mg-albuterol 3 mg 3 ml inhalation Q6H PRN Shortness 01/30/23 09/14/23 (2.5 mg base)/3 mL nebulization Of Breath Or Wheezing soln metoprolol tartrate 25 mg tablet 25 mg PO BID 01/30/23 09/14/23 potassium chloride 10 mEq 10 meq PO 3XWK 01/30/23 09/14/23 tablet,extended release(part/cryst) (Klor-Con M) fluticasone fur. 100 mcg-umeclid 1 inh inhalation QAM 02/15/23 09/14/23 62.5 mcg-vilant 25 mcg inhalat.powder (Trelegy Ellipta) ascorbic acid (vitamin C) 250 mg 125 mg PO QDL 04/21/23 09/14/23 tablet fluticasone propionate 50 2 spray intranasal DAILY 04/21/23 09/14/23 mcg/actuation nasal spray,suspension apixaban 2.5 mg tablet (Eliquis) 2.5 mg PO BID 09/02/23 09/14/23 Previous Rx's Medication Instructions Recorded L.acidop,casei,lactis,rham-B.lact,allie 1 cap PO DAILY #14 caps 09/05/23 625 mg (10 billion cell) capsule (Advanced Probiotic) pantoprazole 40 mg tablet,delayed 40 mg PO AMHS #60 tabs 09/15/23 release Results & Data (ED) Vital Signs Vital Signs - 24 hr 04/26/24 08:40 04/26/24 09:10 04/26/24 09:30 Temperature 36.7 C Temperature Source Oral Pulse Rate 103 H 80 Pulse Rate [Apical] 95 H Respiratory Rate 20 22 Respiratory Effort / Characteristics Non-Labored Spontaneous Non-Labored Spontaneous Respiratory Depth Normal Normal Blood Pressure 126/107 H Blood Pressure [Right Arm] 101/76 Blood Pressure Mean 113 Blood Pressure Mean [Right Arm] 84 Blood Pressure Position Sitting Blood Pressure Position [Right Arm] Sitting Pulse Oximetry 98 95 Oxygen Delivery Method Nasal Cannula Room Air Oxygen Flow Rate 2 Sepsis Recent Fever Within 48 Hours No Sepsis New/Unexplained Change in Mental Status No Sepsis Action Taken by Nursing No Action Required 01/09/25 10:31 Temperature Temperature Source Pulse Rate Pulse Rate [Apical] 73 Respiratory Rate 20 Respiratory Effort / Characteristics Non-Labored Spontaneous Respiratory Depth Normal Blood Pressure Blood Pressure [Right Arm] 143/82 H Blood Pressure Mean Blood Pressure Mean [Right Arm] 102 Blood Pressure Position Blood Pressure Position [Right Arm] Lying Pulse Oximetry 97 Oxygen Delivery Method Room Air Oxygen Flow Rate Sepsis Recent Fever Within 48 Hours Sepsis New/Unexplained Change in Mental Status Sepsis Action Taken by Half-Way Medications Current Medication List: was personally reviewed by me Laboratory Data Attestation: I reviewed the patient's lab results. 04/26/24 08:43 04/26/24 08:50 Lab Results 04/26/24 04/26/24 04/26/24 Range/Units 08:43 08:48 08:50 WBC 10.54 (4.8-10.8) K/ul RBC 3.65 L (4.70-6.10) M/uL Hgb 11.9 L (14.0-18.0) g/dl Hct 36.3 L (42.0-52.0) % MCV 99.5 (80.0-100.0) fL MCH 32.6 (25.0-34.0) pg MCHC 32.8 (32.0-36.0) g/dL RDW Std Deviation 57.4 H (36.4-46.3) fL RDW Coeff of Chaka 15.8 H (11.5-14.5) % Plt Count (130-400) K/uL MPV (9.4-12.4) fL Immature Gran % (Auto) 0.9 % Neut % (Auto) 75.2 % Lymph % (Auto) 10.9 % Karnes % (Auto) 9.0 % Eos % (Auto) 3.4 % Baso % (Auto) 0.6 % Neut # (Auto) 7.92 H (1.40-6.50) K/uL Lymph # (Auto) 1.15 L (1.20-3.40) K/uL Karnes # (Auto) 0.95 H (0.11-0.59) K/uL Eos # (Auto) 0.36 (0.00-0.50) K/uL Baso # (Auto) 0.06 (0.00-0.20) K/uL Immature Gran # (Auto) 0.10 (0.01-0.20) K/uL Plt Count ,Citrate (130-400) K/uL Polychromasia 1+ PT 11.1 (9.0-12.0) Seconds INR 1.0 (0.9-1.1) APTT 23 (21-31) Seconds PTT Ratio 0.9 Sodium Cancelled 142 Potassium Cancelled 3.5 Chloride Cancelled 110 H Carbon Dioxide Cancelled 24 Anion Gap Cancelled 8 BUN Cancelled 51 H Creatinine Cancelled 1.69 H Est Cr Clr Drug Dosing Cancelled 40.6 eGFR Cancelled 41.82 BUN/Creatinine Ratio Cancelled 30.2 H Glucose Cancelled 100 H Calcium Cancelled 7.9 L Total Bilirubin Cancelled 0.5 AST Cancelled 18 ALT Cancelled 21 Alkaline Phosphatase Cancelled 68 Troponin I High Sens Cancelled 43.5 H Total Protein Cancelled 6.0 Albumin Cancelled 3.5 Globulin Cancelled 2.5 Albumin/Globulin Ratio Cancelled 1.4 Lipase Cancelled 36 Blood Type A Positive Antibody Screen NEGATIVE 04/26/24 Range/Units 08:51 WBC (4.8-10.8) K/ul RBC (4.70-6.10) M/uL Hgb (14.0-18.0) g/dl Hct (42.0-52.0) % MCV (80.0-100.0) fL MCH (25.0-34.0) pg MCHC (32.0-36.0) g/dL RDW Std Deviation (36.4-46.3) fL RDW Coeff of Chaka (11.5-14.5) % Plt Count (130-400) K/uL MPV (9.4-12.4) fL Immature Gran % (Auto) % Neut % (Auto) % Lymph % (Auto) % Karnes % (Auto) % Eos % (Auto) % Baso % (Auto) % Neut # (Auto) (1.40-6.50) K/uL Lymph # (Auto) (1.20-3.40) K/uL Karnes # (Auto) (0.11-0.59) K/uL Eos # (Auto) (0.00-0.50) K/uL Baso # (Auto) (0.00-0.20) K/uL Immature Gran # (Auto) (0.01-0.20) K/uL Plt Count ,Citrate 154 (130-400) K/uL Polychromasia PT (9.0-12.0) Seconds INR (0.9-1.1) APTT (21-31) Seconds PTT Ratio Sodium Potassium Chloride Carbon Dioxide Anion Gap BUN Creatinine Est Cr Clr Drug Dosing eGFR BUN/Creatinine Ratio Glucose Calcium Total Bilirubin AST ALT Alkaline Phosphatase Troponin I High Sens Total Protein Albumin Globulin Albumin/Globulin Ratio Lipase Blood Type Antibody Screen Administered Medications Discontinued Medications Pantoprazole Sodium (Protonix) 40 mg in 10 mls @ 5 mls/min IV NOW ONE Stop: 04/26/24 08:42 Last Admin: 04/26/24 08:54 Dose: 5 mls/min Documented By: ANGIE Famotidine (Pepcid 20mg Iv Push) 20 mg in 5 mls @ 2.5 mls/min IV NOW STA Stop: 04/26/24 08:42 Last Admin: 04/26/24 08:54 Dose: 2.5 mls/min Documented By: ANGIE Imaging Data Attestation: I personally reviewed and interpreted this imaging study as follows: My Impression: 1 view chest x-ray was obtained in the emergency department. My interpretation is no free air or definite infiltrate, final report below. Radiologist's Impression: Chest X-Ray 04/26/24 08:42 XR chest 1V portable CLINICAL HISTORY: GIB COMPARISON STUDY: 09/02/2023 FINDINGS: Stable aortic ectasia. Stable cardiomegaly without pulmonary vascular congestion. Stable left-sided pleural calcification. No consolidation, pleural effusion, or pneumothorax seen. IMPRESSION: No acute findings. ACT 112: Negative or not required by law. Electronically signed by: Jacinto Borges M.D. 04/26/2024 9:15 AM KUB X-Ray 04/26/24 08:42 KUB HISTORY: Acute GI bleed GIB COMPARISON: KUB 12/28/2022 FINDINGS: Herniorrhaphy coils are noted. Endoscopy clips project over the left upper quadrant abdomen. Lumbar spinal fusion hardware. A double-J stent projects over the abdominal right upper quadrant. Nonobstructive bowel gas pattern. Vascular calcifications are noted. Renal shadows are obscured by bowel gas. No renal calculi. No ureteral calculi. No pneumoperitoneum or pneumatosis. No fracture. IMPRESSION: Nonobstructive bowel gas pattern. ACT 112: Negative or not required by law. The above report was generated using voice recognition software. It may contain grammatical, syntax or spelling errors. Electronically signed by: Dawson Degroot M.D. 04/26/2024 9:20 AM Discharge Plan Visit Data Chief Complaint: Rectal Bleed Stated Complaint: AB TENDERNESS, POSSIBLE GI BLEED ED Provider: Aaron Knight Discharge Problem: Acute upper gastrointestinal bleeding, Anemia, Elevated troponin I level Patient Disposition: Being Evaluated by Hospitalist Forms Stand Alone Forms: [facility] Prescriptions Prescriptions: No Action Trelegy Ellipta 100-62.5-25 mcg blister with device 1 inh inhalation QAM fluticasone propionate 50 mcg/actuation spray,suspension 2 spray INTRANASAL DAILY ascorbic acid (vitamin C) 250 mg Tablet 125 mg PO QDL atorvastatin 80 mg tablet 80 mg PO QAM Patient Comments: around 11 am or so. ipratropium-albuterol 0.5 mg-3 mg(2.5 mg base)/3 mL solution for nebulization 3 ml INHALATION Q6H PRN (Reason: Shortness Of Breath Or Wheezing) allopurinol 300 mg tablet 150 mg PO DAILY Patient Comments: around 11 am or so. furosemide 20 mg tablet 20 mg PO BID azelastine 137 mcg (0.1 %) aerosol,spray 1 spray INTRANASAL AMHS albuterol sulfate 90 mcg/actuation HFA aerosol inhaler 2 puff INHALATION Q4H PRN (Reason: Wheezing) ezetimibe 10 mg tablet 10 mg PO QAM potassium chloride [Klor-Con M10] 10 mEq tablet,ER particles/crystals 10 meq PO 3XWK Patient Comments: mon, wed and tue morning hours. Rx Instructions: on mon, tue and tuesday metoprolol tartrate 25 mg tablet 25 mg PO BID docusate sodium 100 mg Capsule 100 mg PO BID PRN (Reason: Constipation) cholecalciferol (vitamin D3) [Vitamin D3] 50 mcg (2,000 unit) Tablet 50 mcg PO DAILY Patient Comments: around 11 am . pantoprazole 40 mg tablet,delayed release (DR/EC) 40 mg PO AMHS Qty: 60 0RF Eliquis 2.5 mg tablet 2.5 mg PO BID Advanced Probiotic 625 mg (10 billion cell) Capsule 1 cap PO DAILY Qty: 14 0RF Referrals Referrals: Oesterling,Jairo R., MD [Primary Care Provider] - Discharge Problem: Anemia Qualifiers: Anemia type: unspecified type Qualified Code(s): D64.9 - Anemia, unspecified
[2024-04-26] MEDS: FAMOTIDINE 20MG IV PUSH 20 MG/5 ML SYR IV STA (08:54)
[2024-04-26] MEDS: PANTOprazole 40 MG/10 ML SYR IV ONE (08:54)
--- NOTE | 2024-04-26 09:17 | XRay Report ---
XR chest 1V portable CLINICAL HISTORY: GIB COMPARISON STUDY: 09/02/2023 FINDINGS: Stable aortic ectasia. Stable cardiomegaly without pulmonary vascular congestion. Stable le ft-sided pleural calcification. No consolidation, pleural effusion, or pneumothorax seen. IMPRESSION: No acute findings. ACT 112: Negative or not required by law. Electronically signed by: Jacinto Borges M.D. 04/26/2024 9:15 AM
--- NOTE | 2024-04-26 09:21 | XRay Report ---
KUB HISTORY: Acute GI bleed GIB COMPARISON: KUB 12/28/2022 FINDINGS: Herniorrhaphy coils are noted. Endoscopy clips project over the left upper quadrant abdomen . Lumbar spinal fusion hardware. A double-J stent projects over the abdominal right upper quadrant. N onobstructive bowel gas pattern. Vascular calcifications are noted. Renal shadows are obscured by bow el gas. No renal calculi. No ureteral calculi. No pneumoperitoneum or pneumatosis. No fracture. IMPRESSION: Nonobstructive bowel gas pattern. ACT 112: Negative or not required by law. The above report was generated using voice recognition software. It may contain grammatical, syntax o r spelling errors. Electronically signed by: Dawson Degroot M.D. 04/26/2024 9:20 AM
[2024-04-26 09:37] LABS: Albumin Globulin Ratio 1.4 (0.9-2); Albumin Level 3.5 gm/dl (3.4-5.0); BUN Creatinine Ratio 30.2 (10-20); Bilirubin,Total 0.5 mg/dl (0.2-1.0); Calcium 7.9 mg/dl (8.6-10.3); Creatinine Clr Calc Pharmacy 40.6 ml/min; Globulin 2.5 gm/dl (2.5-4.0); Potassium 3.5 mmol/L (3.5-5.1)
[2024-04-26 09:38] LABS: Hematocrit (blood only) 36.3 % (42.0-52.0); Hemoglobin 11.9 g/dl (14.0-18.0); Mean Corpuscular Hemoglobin 32.6 pg (25.0-34.0); Mean Corpuscular Hgb Conc 32.8 g/dL (32.0-36.0); Mean Corpuscular Volume 99.5 fL (80.0-100.0); RDW Coefficient of Variation 15.8 % (11.5-14.5); RDW Standard Deviation 57.4 fL (36.4-46.3); Red Blood Count 3.65 M/uL (4.70-6.10); White Blood Count 10.54 K/ul (4.8-10.8)
[2024-04-26 09:40] LABS: Basophils # (auto) 0.06 K/uL (0.00-0.20); Basophils % (auto) 0.6 %; Eosinophils # (auto) 0.36 K/uL (0.00-0.50); Eosinophils % (auto) 3.4 %; Immature Granulocytes % (auto) 0.9 %; Lymphocytes # (auto) 1.15 K/uL (1.20-3.40); Lymphocytes % (auto) 10.9 %; Monocytes # (auto) 0.95 K/uL (0.11-0.59); Neutrophils # (auto) 7.92 K/uL (1.40-6.50); Neutrophils % (auto) 75.2 %; Polychromasia 1+
[2024-04-26 09:43] LABS: Troponin I High Sensitivity 43.5 pg/ml (0-20)
[2024-04-26 09:44] LABS: Partial Thromboplastin Ratio 0.9; Partial Thromboplastin Time 23 Seconds (21-31); Prothrombin Time 11.1 Seconds (9.0-12.0)
[2024-04-26] MEDS ORDERED: MAGNESIUM HYDROXIDE SUSP 30 ML UDC PO PRN (10:25)
[2024-04-26] MEDS ORDERED: ACETAMINOPHEN 325 MG TAB PO PRN (10:25)
[2024-04-26] MEDS ORDERED: ALUMINUM/MAGNESIUM SUSP 30 ML UDC PO PRN (10:25)
[2024-04-26] MEDS ORDERED: POLYETHYLENE (MIRALAX) 17 GM PACK PO PRN (10:25)
[2024-04-26] MEDS ORDERED: ONDANSETRON INJ 2 MG/ML 2 ML VIAL IV PRN (10:25)
--- NOTE | 2024-04-26 10:35 | History & Physical Report ---
Date of Service April 26, 2024 Assessment & Plan (1) GI bleed: (2) Acute respiratory failure with hypoxia: (3) Stage 3b chronic kidney disease (CKD): (4) Chronic anemia: (5) Shaggy aorta syndrome: Plan Mr. 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 He notes that yesterday he developed melena when he was going to the bathroom and wiping with bath tissue. This has been ongoing several times daily since then and he had an episode of significant melena prior to my arrival to his room. H/H is currently 11.9/36.3. Patient has a recent admission at [facility] in October 2023 for a conservatively treated SBO and recent axious stent placed in CBD. No leukocytosis, creatinine 1.69; baseline 1.8-2.5; otherwise labs unremarkable. No transaminitis and lipase normal. Patient will be admitted for further evaluation and management for an possible upper GIB. Will trend H/H Q6, obtain blood consent/type and cross, will hold Eiliquis, and keep NPO until GI consultation. Given his recent hospitalization at [facility] for a conservatively treated SBo; and recent GB issues with stent; will order CTAP without contrast and monitor. No transaminitis and lipase normal GIB: Recent admit at [facility] in October 2023 for SBO and EGD clip removed under Dr. England Hgb 11.9; will check H/H Q4 Protonix IV BID for now Type and Cross obtained; blood consent obtained NPO for now Most recent colonosopy 2018 benign adenomatous polyp and diverticulosis; recommended 5 years repeat at that time GI Consult placed Acute respiratory failure: GINNY, on CPAP at night with O2 Follows with Pulm OPT Current BD Rx: Trelegy + DuoNeb 3-4 /day +/- rescue Albuterol Home O2 3LNC Frequent use of rescue Pack therapy status No hypoxia at this time and appears comfortable Last Pulm appt 04/03; most recent FEV1 actual post % 8 Will order CPAP QHS while here AF: Chronic Takes Metoprolol and Eliquis. Hold Eliquis for now pending GI consult H/O SBO: Was admitted at [facility] in October 2023; was also found to have 'gallbladder problems' s/p axious stent placed in 2023 He was transferred to [facility] 10/20-10/26 and was seen by general surgery at [facility]. He was treated conservatively with an NGT and bowel rest. No surgery. Given this history and presentation with initial abdominal pain and H/O AAA a CTAP was obtained today with no signs of obstruction/ abnormalities. 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 Kingston Code Status: DNR/DNI VTE Prophylaxis: Teds and SCDs for now Seen in collaboration with Dr. Page; please see his addendum for any additional information. I spent a total of 82 minutes coordinating, documenting, and providing care for this patient excluding time spent in the performance of separately billed services. All of the aforementioned completed while collaborating with the assigned attending physician for a full treatment plan. Please see their addendum for further details. History of Present Illness Chief Complaint: black stools Primary Care Provider: Jairo Kingston MD Mr. 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 He notes that yesterday he developed melena when he was going to the bathroom and wiping with bath tissue. This has been ongoing several times daily since then and he had an episode of significant melena prior to my arrival to his room. H/H is currently 11.9/36.3. Patient has a recent admission at [facility] in October 2023 for a conservatively treated SBO and recent axious stent placed in CBD. He underwent an EGD 09/08 here for which one bleeding ulcer was identified and clipped by Dr. Álvarez. Prior to that, he had an EGD 03/10 where two nonbleeding ulcers were identified with angiectasia of the stomach. His most recent colonoscopy was in 2018 which revealed adenomatous polyps and diverticulosis; it was recommended at that time for a repeat scope in 5 years. No leukocytosis, creatinine 1.69; baseline 1.8-2.5; otherwise labs unremarkable. No transaminitis and lipase normal. CTAP today revealed: Stable common bile duct stent with expected biliary gas. Liver, spleen, pancreas, and adrenal glands otherwise have an unremarkable non- IV contrasted appearance. Kidneys show no hydronephrosis or calculi. There are scattered atherosclerotic calcifications. Stable abdominal aortic aneurysm measuring 3.8 cm diameter. There is a stable small bilateral iliac artery aneurysms.. Stable ventral hernia repair. Pelvis: Prostate is enlarged. Urinary bladder is mildly distended. There is sigmoid diverticulosis. No acute diverticulitis. There is mild retained stool. Normal appendix. No bowel inflammation or obstruction. No free fluid, free air, or abscess. No enlarged adenopathy. No acute concerns. KUB and CXR negative for acute changes. EKG shows pt in rate controlled Atrial Fibrillation; on Eliquis. Patient will be admitted for further evaluation and management for an possible upper GIB. Will trend H/H Q6, obtain blood consent/type and cross, will hold Eiliquis, and keep NPO until GI consultation. Given his recent hospitalization at [facility] for a conservatively treated SBo; and recent GB issues with stent; will order CTAP without contrast and monitor. No transaminitis and lipase normal Allergies Allergy/AdvReac Type Severity Reaction Status Date / Time RUBENS Inhibitors AdvReac Unknown DROPS Verified 05/05/23 13:26 BLOOD PRESSURE lisinopril AdvReac Unknown DROPS Verified 05/05/23 13:26 BLOOD PRESSURE Home Medications Medication Instructions Recorded Confirmed Type albuterol sulfate 90 mcg/actuation 2 puff inhalation Q4H PRN Wheezing 01/30/23 04/26/24 History aerosol inhaler allopurinol 300 mg tablet 150 mg PO DAILY 01/30/23 04/26/24 History atorvastatin 80 mg tablet 80 mg PO QAM 01/30/23 04/26/24 History azelastine 137 mcg (0.1 %) nasal 1 spray intranasal AMHS Nasal 01/30/23 04/26/24 History spray Congestion cholecalciferol (vitamin D3) 50 50 mcg PO DAILY 01/30/23 04/26/24 History mcg (2,000 unit) tablet (Vitamin D3) docusate sodium 100 mg capsule 100 mg PO BID PRN Constipation 01/30/23 04/26/24 History ezetimibe 10 mg tablet 10 mg PO QAM 01/30/23 04/26/24 History furosemide 20 mg tablet 20 mg PO BID 01/30/23 04/26/24 History ipratropium 0.5 mg-albuterol 3 mg 3 ml inhalation Q6H PRN Shortness 01/30/23 04/26/24 History (2.5 mg base)/3 mL nebulization Of Breath Or Wheezing soln metoprolol tartrate 25 mg tablet 25 mg PO BID 01/30/23 04/26/24 History potassium chloride 10 mEq 10 meq PO 3XWK 01/30/23 04/26/24 History tablet,extended release(part/cryst) (Klor-Con M) fluticasone fur. 100 mcg-umeclid 1 inh inhalation QAM 02/15/23 04/26/24 History 62.5 mcg-vilant 25 mcg inhalat.powder (Trelegy Ellipta) ascorbic acid (vitamin C) 250 mg 125 mg PO QDL 04/21/23 04/26/24 History tablet fluticasone propionate 50 2 spray intranasal DAILY 04/21/23 04/26/24 History mcg/actuation nasal spray,suspension apixaban 2.5 mg tablet (Eliquis) 2.5 mg PO BID 09/02/23 04/26/24 History L.acidop,casei,lactis,rham-B.lact,allie 1 cap PO DAILY #14 caps 09/05/23 04/26/24 Rx 625 mg (10 billion cell) capsule (Advanced Probiotic) pantoprazole 40 mg tablet,delayed 40 mg PO AMHS #60 tabs 09/15/23 04/26/24 Rx release Past Med/Surg History Problem List Elevated troponin I level (Acute) Anemia (Acute) Acute upper gastrointestinal bleeding (Acute) Duodenal ulcer Pulmonary edema (Acute) 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 (Acute) SOB (shortness of breath) (Acute) Anemia (Acute) GI bleed (Acute) Gout (Chronic) History of GI bleed Sinus pause Labile blood pressure Acute respiratory failure with hypoxia Bronchitis Acute on chronic kidney failure COPD exacerbation (Acute) Abnormal CXR Stage 3b chronic kidney disease (CKD) Anemia due to chronic kidney disease CKD (chronic kidney disease) (Acute) Chronic anemia (Acute) Acute kidney injury superimposed on chronic kidney disease Melena Acute GI bleeding (Acute) COPD with exacerbation (Acute) Acute upper GI bleed (Acute) Symptomatic anemia (Acute) Anemia requiring transfusions (Acute) Recurrent gastrointestinal hemorrhage Shaggy aorta syndrome SOB (shortness of breath) (Acute) Bronchitis (Acute) COPD exacerbation (Acute) Wheezing (Acute) Anemia (Acute) Elevated troponin (Acute) Acute and chronic respiratory failure Goals of care, counseling/discussion Medical History MGUS (monoclonal gammopathy of unknown significance) CRF (chronic renal failure) History of cholelithiasis Chronic respiratory failure with hypoxia, on home O2 therapy GERD (gastroesophageal reflux disease) COPD (chronic obstructive pulmonary disease) exacerbation Dec 2022 - Hospitalized [facility] Dec 24-2022. Med change and effective since. Denies current issues. O2 2 L HS & PRN throughout day. PFO (patent foramen ovale) Wide-complex tachycardia CVA (cerebral vascular accident) Gastroparesis pt is not sure about this dx. History of colon polyps x1 a few yrs ago/follow up in 5 yrs. 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 Ascending thoracic aorta at the level of the right pulmonary artery 4.2 cm unchanged. 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 Descending thoracic aorta at the level of the left atrium again up to 4.[address] scan Dec 2022 - pt told everything was stable. 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 follows with Dr. Jefferson Gastric ulcer Hearing deficit BL NAILS Hx SBO History of GI bleed Stroke X 2 (LAST EVENT 05/2020) CONT. TO HAVE SLIGHT BALANCE ISSUES Sleep apnea CPAP Hx of gout PSVT (paroxysmal supraventricular tachycardia) Aortic stenosis Thoracic aortic atherosclerosis, densely calcified coronary arteries, severely calcified aortic valve, aneurysmal outpouching of the aortic arch. CKD (chronic kidney disease), stage III follows with [facility] nephrology Hyperlipidemia Hypertension Surgical History History of tonsillectomy History of esophagogastroduodenoscopy (EGD) most recent a few months ago for a bleed, this is a follow up procedure. History of tooth extraction History of tonsillectomy and adenoidectomy pt not sure about adenoids. History of lumbar surgery 1999 S/P AAA repair 01/13/2009 - Dr Suazo ([facility] AT [facility]) Hx of colonoscopy Hx of hernia repair lysis of adhesions, incisional hernia repair laparoscopically 01/28/2010 at [facility] - Dr Desouza Family History Other AAA (abdominal aortic aneurysm) Hypertension No family history of adverse response to anesthesia Social History Smoking Status: Former smoker Tobacco Type: Cigarettes Age Started Using Tobacco: 18; Cigarettes Per Day: Former cigarette. Quit 1998; Second Hand Exposure: No; Do You Dip or Chew Tobacco: No; Hx Alcohol Use: Yes Alcohol type: beer Alcohol type Comment: 3 beers a day Hx Substance Use: No Preferred Language: Thai Communication Ability: Effective Communication Ability Comment: pt communication effective Home Care Manager Required: No Beliefs That Will Affect Care: None marital status: Current Living Situation: Spouse Current Living Situation Comment: and daughter current occupational status: employed Feels Safe at Home: Yes Assistive Devices: CPAP and Oxygen - at Night Review of Systems Review of Systems: Neuro: (-) Falls, trauma, slurred speech HEENT: (-) NAILS, dizziness, dysphagia, visual or auditory changes CV: (-) CP, palpitations, swelling Resp: (-) SOB GI: (-) appetite changes, N/V/D, bowel changes : (-) urinary changes Skin: (-) rashes Psych: (-) anxiety, depression Physical Exam Physical Exam: Neuro: AAOx4, PERRLA, no aphagia, memory changes, CNII-XII grossly intact HEENT: head normocephalic, moist mucus membranes CV: S1/S2, (-) M/G/R, (-) edema, cap refill < 3 seconds Resp: Lungs CTA in all read. On RA GI: Abdomen S/NT/ND, Ax4 bowel sounds, (-) CVA tenderness Musculoskeletal: 5/5 B/L UE strength, 5/5 B/L LE strength. No gait disturbance Skin: (-) rashes , (-) erythema. Psych: euthymic mood Results & Data Results & Data Vital Signs (Past 12 Hours) Vital Signs Temp Pulse Pulse Resp BP BP Pulse Ox 04/26/24 09:30 95 H 22 101/76 95 04/26/24 09:10 80 04/26/24 08:40 36.7 C 103 H 20 126/107 H 98 O2 Del Method O2 Flow Rate 04/26/24 09:30 Room Air 04/26/24 09:10 04/26/24 08:40 Nasal Cannula 2 Laboratory Results Short CBC 04/26/24 Range/Units 08:43 WBC 10.54 (4.8-10.8) K/ul Hgb 11.9 L (14.0-18.0) g/dl Hct 36.3 L (42.0-52.0) % Plt Count (130-400) K/uL BMP 04/26/24 04/26/24 08:43 08:50 Sodium Cancelled 142 Potassium Cancelled 3.5 Chloride Cancelled 110 H Carbon Dioxide Cancelled 24 BUN Cancelled 51 H Creatinine Cancelled 1.69 H Glucose Cancelled 100 H Calcium Cancelled 7.9 L Liver Function 04/26/24 04/26/24 Range/Units 08:43 08:50 Total Bilirubin Cancelled 0.5 AST Cancelled 18 ALT Cancelled 21 Alkaline Phosphatase Cancelled 68 Albumin Cancelled 3.5 Diagnostic Findings Chest X-Ray 04/26/24 08:42 XR chest 1V portable CLINICAL HISTORY: GIB COMPARISON STUDY: 09/02/2023 FINDINGS: Stable aortic ectasia. Stable cardiomegaly without pulmonary vascular congestion. Stable left-sided pleural calcification. No consolidation, pleural effusion, or pneumothorax seen. IMPRESSION: No acute findings. ACT 112: Negative or not required by law. Electronically signed by: Jacinto Borges M.D. 04/26/2024 9:15 AM KUB X-Ray 04/26/24 08:42 KUB HISTORY: Acute GI bleed GIB COMPARISON: KUB 12/28/2022 FINDINGS: Herniorrhaphy coils are noted. Endoscopy clips project over the left upper quadrant abdomen. Lumbar spinal fusion hardware. A double-J stent projects over the abdominal right upper quadrant. Nonobstructive bowel gas pattern. Vascular calcifications are noted. Renal shadows are obscured by bowel gas. No renal calculi. No ureteral calculi. No pneumoperitoneum or pneumatosis. No fracture. IMPRESSION: Nonobstructive bowel gas pattern. ACT 112: Negative or not required by law. The above report was generated using voice recognition software. It may contain grammatical, syntax or spelling errors. Electronically signed by: Dawson Degroot M.D. 04/26/2024 9:20 AM Code Status & VTE Plan Code Status DNR.DNI in the event of cardiac or respiratory arrest VTE Prophylaxis Plan VTE Prophylaxis will be ordered: Yes (1) GI bleed GI bleed type/associated pathology: unspecified gastrointestinal hemorrhage type Qualified Code(s): K92.2 - Gastrointestinal hemorrhage, unspecified
--- OUTSIDE RECORDS SUMMARY | 2024-04-26 10:48 | External Medical Summary | Summary of Care ---
Author Name Unknown Organization [facility] Address [address] [place] [address] Phone [phone] Care Team Providers Care Dispatcher Tow Truck Name Role Phone Jairo Kingston MD Primary Care Provider [phone]- [phone] Reason for Visit * Reason Onset Date Comments Test Results 04/25/2024 BNP Encounter Details Date Type Department Care Team (Late st Contact Info) Description 04/25/2024 Telephone Pulmonary Medicine, [facility] [address] [facility] [place] [address] Devin Hodge MD [address] [facility] [place] [id number] Test Results (BNP) Allergies Active Allergy Reactions Criticality Noted Date Comments Pavan Inhibitors Other (Please comment) 0 Hyperkalemia documented as of this encounter (statuses as of 04/25/2024) Medications oxygen GAS Use 3 L/min(Oxygen) as directed at bedtime. Use 2-3 l/min continuously to keep pulse ox above 90% Active [facility] D3 50 MCG (1999) Oral Capsule (Cholecalciferol)In dications:Vitamin D deficiency TAKE 1 CAPSULE BY MOUTH EVERY DAY 90 Cap 1 02/12/20 20 Active CPAP every night at bedtime. Active Ascorbic Acid 250 MG Oral TabletIndications:I erin deficiency anemia, unspecified iron deficiency anemia type Take 0.5 Tablets by mouth daily at noon. 90 Tablet 3 3 7:19 PM EDT 12/15/19 23 Active Azelastine HCl 0.1 % Nasal Solution (Astelin) Administer 1 [place] into nostril in the morning and 1 [place] before bedtime. 30 mL 1 01/12/20 23 Active Pantoprazole Sodium 40 MG Oral Tablet Delayed Release (Protonix) Take 1 Tablet by mouth in the morning and 1 Tablet before bedtime. 180 Tablet 3 04/20/19 24 Active Allopurinol 300 MG Oral Tablet (Zyloprim)Indicatio ns:Gout TAKE ONE-HALF TABLET BY MOUTH EVERY DAY 45 Tablet 2 4 1:40 PM EDT 06/01/19 24 025 Active Ipratropium-Albuter ol 0.5-2.5 (3) MG/3ML Inhalation Solution (Duoneb) Inhale 3 mL by mouth every 6 hours as needed (sob). 360 mL 5 4 7:05 AM EDT 07/27/19 24 Active Trelegy Ellipta 100-62.5-25 MCG/ACT Aerosol Powder Breath Activated (Fluticasone-Umecli dinium-Vilanterol) INHALE ONE PUFF BY MOUTH EVERY DAY 180 Each 1 4 11:16 AM EST 08/02/19 24 Active Potassium Chloride ER 10 MEQ Oral Capsule Extended Release Take 1 Capsule by mouth in the morning On Tuesday, Tuesday and Tuesday only 45 Capsule 3 4 10:25 AM EDT 08/24/19 24 Active Atorvastatin Calcium 80 MG Oral Tablet (Lipitor) Take 1 Tablet by mouth daily. Active guaiFENesin ER 600 MG Oral Tablet Extended Release 12 Hour (Humibid LA) Take 1 Tablet by mouth 2 times a day as needed for Congestion. Active Furosemide 20 MG Oral Tablet (Lasix) TAKE 1 TABLET BY MOUTH twice DAILY 180 Tablet 1 4 11:16 AM EST 12/08/19 24 Active Metoprolol Tartrate 25 MG Oral Tablet (Lopressor) Take 1 Tablet by mouth in the morning and 1 Tablet before bedtime. 180 Tablet 3 12/22/19 Active Fluticasone Propionate 50 MCG/ACT Nasal Suspension (Flonase) Administer 2 Sprays into nostril daily as needed for Allergies. 48 g 3 01/30/20 Active Apixaban 2.5 MG Oral Tablet (Eliquis)Indication s:Recurrent cerebrovascular accidents (CVAs) (HCC) Take 1 Tablet by mouth in the morning and 1 Tablet before bedtime. 60 Tablet 11 4 11:16 AM EST 01/30/20 Active Docusate Sodium 100 MG Oral Capsule (Colace) Take 1 Capsule by mouth in the morning and 1 Capsule before bedtime. 180 Capsule 3 03/12/20 Active Albuterol Sulfate HFA 108 (90 Base) MCG/ACT Inhalation Aerosol Solution Inhale by mouth. 54 g 6 03/12/20 Active Hospital, Clinic, or Other Facility Administered Medication Ordered Dose Route Frequency Start Date End Date Status Albuterol Sulfate (Proventil) (2.5 MG/3ML) 0.083% inhalation solution 2.5 mgIndications:COPD, group D, by GOLD 2017 classification ([facility]) 2.5 mg NEBULIZER PRN 10/03/2023 10/02/2024 Acti ve documented as of this encounter (statuses as of 04/25/2024) Active Problems Problem Noted Date Diagnosed Date Aneurysm of subclavian artery 01/26/2024 Aneurysm of ascending aorta without rupture 01/16 Assessment & Plan (03/14/2024 3:34 PM EST): Not a surgical candidate No further surveillance needed 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 01/26/20 Assessment & Plan (03/14/2024 3:32 PM EST): 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 pture 01/26/2024 Malnutrition of moderate degree 10/22/2023 Chronic hypoxic respiratory failure, on home oxy gen therapy 10/21/2023 Assessment & Plan (03/14/2024 3:32 PM EST): Continue o2 at hs and as needed Assessment & Plan (01/10/2024 5:20 PM EDT): "RED FLAG" COPD symptoms: Increased dyspnea on exertion Cough Wheezing Medication Regimen Class D - Inhaled Ssqwzestvatjaz-[id number] Combination Inhaler (Trellegy) Remote Patient Monitoring Vendor: No Connected RPM Device(s): Traditional Scale Traditional Pulse Ox Traditional BP Cuff Self-Management plan Prednisone 40mg daily for 5 days Rx Oral Antibiotic Rx (see medication list) High frequency nebulizer treatments every 4-6 hours around the clock Exacerbation plan Solumedrol 40mg IM/IV Chest Xray Additional Comments: Breathing at baseline Rescue kit on hand if needed O2 at hs and as needed History of central retinal artery occlusion 07/2023 Chronic kidney disease, stage 4 (severe) 024 Chronic respiratory failure, unsp w hypoxia or h ypercapnia 05/16/2023 Chronic diastolic congestive heart failure 05/16 Supraventricular tachycardia 05/16/2023 Hypertensive chronic kidney disease with stage 1 through stage 4 chronic kidney disease, or unspecified chronic kidney disease 05/16/2023 COPD, group D, by GOLD 2017 classification 04/25 Overview: Per COPD GOLD Classification Assessment & Plan (03/14/2024 3:32 PM EST): Orders: Doxycycline Hyclate 100 MG Oral Tablet; Take 1 Tablet by mouth in the morning and 1 Tablet before bedtime. For 7 days. As needed Rescue kit use when directed to take for COPD exacerbation. predniSONE 20 MG Oral Tablet (Deltasone); Take 2 Tablets by mouth in the morning. For 5 days. USE NEEDED FOR EXACERBATION. COPD RESCUE KIT. 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 plavix 75 mg daily Assessment & Plan (08/26/2022 5:13 PM EDT): At baseline -continue atorvastatin, Zetia, Plavix, Eliquis, amlodipine, metoprolol Severe aortic stenosis 08/12/2022 Assessment & Plan (08/26/2022 5:09 PM EDT): Following with Cardiology. Due for a catheterization. If okay, likely for valve replacement. Iron deficiency anemia due to chronic blood loss 05/03/2022 Assessment & Plan (01/10/2024 5:16 PM EDT): Continue f/u with hematology Hemoglobin Results: Lab Results Component Value Date/Time HGB 11.1 (L) 12/30/2023 01:53 PM HGB 10.7 (L) 12/02/2023 01:54 PM HGB 9.6 (L) 11/04/2023 02:04 PM HGB 6.4 (LL) 12/08/2022 12:43 PM HGB 11.1 (A) 06/10/2020 12:00 AM HGB 12.1 (L) 02/08/2020 09:48 AM HGB 13.4 (L) 05/24/2019 09:33 AM HGB 14.8 09/28/2018 10:41 AM Assessment & Plan (11/11/2022 9:21 PM EDT): Images from the original note were not [...] 15 - 55 % 18 Resulting Agency Assessment & Plan (08/26/2022 5:12 PM EDT): Following with Heme-Onc Getting iron infusions Last hemoglobin 9.9 Hyperparathyroidism 03/04/2022 Assessment & Plan (11/11/2022 9:20 PM EDT): Latest Reference Range & Units 03/18/22 13:04 04/21/22 08:49 06/03/22 10:58 07/23/22 10:33 10/11/22 08:33 Calcium 8.4 - 10.2 mg/dL 9.0 9.4 9.2 8.9 9.0 Abdominal aortic aneurysm without rupture 2020 Assessment & Plan (11/11/2022 9:13 PM EDT): Follows with vascular, due for another repair Assessment & Plan (08/26/2022 5:07 PM EDT): Following with vascular surgery. Due to have another repair. Thoracic aorta atherosclerosis 06/30/2020 Stenosis of left renal artery 10/30/2018 Hx of nonmelanoma skin cancer 09/06/2018 Overview (01/20/2021): squamous cell carcinoma (L superior nasal sidewall 2018), basal cell carcinoma (L shoulder/upper back 2018, R shoulder 12/2019, L lateral proximal pretibial region 02/05) History of shingles 12/14/2016 History of AAA (abdominal aortic aneurysm) repai r 12/14/2016 Dyslipidemia, goal LDL below 100 03/27/2009 Overview (03/27/2009): Per Lipid Taxonomy. Assessment & Plan (08/26/2022 5:12 PM EDT): Continue atorvastatin S/P Lumbar disc excision, fusion w/ Implants HTN, goal below 140/90 Assessment & Plan (08/26/2022 5:08 PM EDT): BP at goal. -continue amlodipine, metoprolol documented as of this encounter (statuses as of 04/25/2024) Resolved Problems Problem Noted Date Diagnosed Date Resolved Date SBO (small bowel obstruction) 10/21/2023 03/08/2024 MAGDALENO (acute kidney injury) 10/21/2023 COPD, group C, by GOLD 2017 classification 12/27/2022 04/28/2023 Overview: Per COPD GOLD Classification GI bleed 12/08/2022 03/08/2024 Anemia due to stage 3b chronic kidney disease 10/26/1911/11/2022 Overview: Per CKD protocol COPD with acute exacerbation 08/26/2022 02/09/2023 Assessment & Plan (11/11/2022 9:19 PM EDT): May or may not have COPD Unable to complete PFT's so far Has return with pulmonary next month is on LAMA LABA wheezing appreciated on lung exam No ICS currently No emphysematous changes noted on recent CT CHEST PYH: 40, quit in 1998 Assessment & Plan (08/26/2022 5:11 PM EDT): Current Status : "Stable" for patient / At or near baseline Degree of Condition Awareness: Demonstrates very good awareness of condition, disease course, and prognosis "RED FLAG" COPD symptoms: o Increased dyspnea on exertion ("I can't walk to the kitchen or up the stairs without coughing and wheezing", "My chest feels tight any time I move") Medication Regimen o Other: duonebs q 6h Self-Management plan o Prednisone tapering dose Rx o High frequency nebulizer treatments every 4-6 hours around the clock o Begin wearing supplemental oxygen continuously until symptoms return to baseline Exacerbation plan o Solumedrol 60mg IM/IV Just getting over exacerbation Chronic kidney disease, stage 4 (severe) 08/12/2022 11/11/2022 Recurrent cerebrovascular accidents (CVAs) 08/12/2022 08/24/2022 Chronic kidney disease, stage 3b 09/30/2020 11/11/2022 Overview: Per CKD protocol Benign hypertension with sta ge 3b chronic kidney disease 08/26/2020 11/11/2022 Assessment & Plan (08/26/2022 5:07 PM EDT): Last creatinine 2.0. GFR 34. Baseline. Thrombocytopathy 06/30/2020 08/20/2021 Gastroesophageal reflux dise ase without esophagitis 11/30/2018 08/20/2021 Aneurysm of left common iliac artery 10/30/2018 10/07/2023 Aneurysm of left common iliac artery 10/30/2018 [...] 12/25/2009 12/14/2016 ADVANCE DIRECTIVE INFORMATION 07/17/2009 06/15/2017 Overview (07/17/2009): No, Advance Directive brochure given to patient. Acute posthemorrhagic anemia 01/14/2009 06/14/2011 Abdominal aortic aneurysm 12/27/2008 Benign neoplasm of colon 12/05/2008 Overview (12/11/2008): adenomatous polyp--repeat 3 years Benign neoplasm of colon 08/03/2007 Overview (08/08/2007): adenomatous; cecal ulcer; repeat colonoscopy in 1 month CONTUSION OF KNEE, LEFT 03/15/200605/20 Edema 03/15/2006 06/14/2011 Family history of other card iovascular diseases 07/28/2004 06/14/2011 Overview (07/10/2015): ICD-10 update of inactive term ARTERIAL INSUFFICIENCY/ISCHE XIOMARA, LEFT LITTLE FINGER 12/29/2001 07/28/2004 Tobacco use disorder 12/29/2001 010 GOUT NOS 07/18/2001 12/11/2015 Hemorrhoids, external without complications 01/16/2001 01/05/2017 PLANTAR FIBROMATOSIS 01/16/2001 005 Varicose vein of leg 017 HYPERLIPIDEMIA NEC-NOS 03/27 Overview (03/27/2009): Per Lipid Taxonomy. documented as of this encounter (statuses as of 04/25/2024) Immunizations Name Administration Dates Next Due COVID-19 mRNA, LNP-s, No Pre serve, 2-Dose Series (Moderna) 02/19/2021,06/19/2020,05/22/2020 Pneumococcal Conjugate Vacc, 13 Valent (Prevnar) 06/12/2015 Pneumococcal Polysaccharide PPV23 (Pneumovax) 06/10/2014 Seasonal Influenza, High Dos e, Trivalent, PF, IM (Fluzone HD) 02/27/2024 Seasonal Influenza, PF, 6 M & above, IM , (FluLaval or Fluzone) 12/29/2019,02/06/2019,02/27/2018 Seasonal Influenza, Quadriva lent Hd (Fluzone Hd) 01/10/2023,03/04/2022,01/15/2021 TD, Preservative Free 03/04/2022 TDAP (age 10 and older)(Boostrix) 12/14/2011 documented as of this encounter Social History Tobacco Use Types Packs/Day Years Used Date Smoking Tobacco: Former Cigarettes 1 35 1 974 - 2009 Cigars Passive Smoke Exposure: Never Smokeless Tobacco: Never Alcohol Use Standard Drinks/Week Comments Yes 3 (1 standard drink = 0.6 oz pur e alcohol) AUDIT-C Answer Date Recorded Q1: How often do you have a drink containing alc ohol? 2-4 times a month 10/21/2023 Q2: How many drinks containi ng alcohol do you have on a typical day when you are drinking? 3 or 4 10/21/2023 Q3: How often do you have si x or more drinks on one occasion? Never 10/21/2023 PHQ-2 Answer Date Recorded PHQ Adult Total Score 0 10/10/2023 Hunger Vital Sign Answer Date Recorded Within the past 12 months, y ou worried that your food would run out before you got the money to buy more. Never true 12/12/19 24 Within the past 12 months, t he food you bought just didn't last and you didn't have money to get more. Never true 12/12/2023 Childcare Answer Date Recorded Do you feel overwhelmed with taking care of a child, family member or friend? Yes 12/12/2023 Does your family need help f inding childcare? (Household - for ages 0-17 years) Not on file 12/12/2023 Clothing Answer Date Recorded Have you been unable to get clothing when it was really needed? No 12/12/2023 Is your family able to get c lothes or diapers when needed? (Household - for ages 0-17 years) Not on file 12/12/2023 Personal Safety Answer Date Recorded Do you feel unsafe or have concerns for your saf ety? No 12/12/2023 Do you have concerns for you r family's safety? (Household - for ages 0-17 years) Not on file 12/12/2023 Utilities Answer Date Recorded Do you have trouble paying y our heating, water, or electric bill? No 12/12/2023 Is your family able to pay t he heat, water, or electric bill? (Household - for ages 0-17 years) Not on file 12/12/2023 Does your family have access to good internet? (Household - for ages 0-17 years) Not on file 12/12/2023 Employment Status Answer Date Recorded Are you unemployed or without regular income? No 12/12/2023 Does the household have a re lar source of income? (Household - for ages 0-17 years) Not on file 12/12/2023 Social Connections Answer Date Recorded How often do you feel lonely or isolated from th ose around you? Never 12/12/2023 Financial Resource Strain Answer Date R ecorded Do you have any trouble payi ng for your medications, or do you think you might in the future? Yes 12/12/2023 Does your family have troubl e paying for medicine? (Household - for ages 0-17 years) Not on file 12/12/2023 Transportation Needs Answer Date Record ed Do you have trouble getting a ride to medical visits or work? (Adult - for ages 18 years and over) Not on file 12/12/2023 Does your family have a hard time getting a ride to doctors visits? (Household - for ages 0-17 years) Not on file 12/12/2023 Has lack of transportation k ept you from medical appointments, meetings, work, or from getting things needed for daily living? Check all that apply. No 12/12/2023 Do you (or your family) have trouble finding or paying for a ride (transportation)? (Household - for ages 0-17 years) Not on file 12/12/2023 Housing Stability Answer Date Recorded Do you currently live in a s helter or have no steady place to sleep at night? No 12/12/2023 Do you think you are at risk of becoming homeless? (Adult - for ages 18 years and over) Not on file 12/12/2023 Does your family worry about paying for your home or becoming homeless? (Household - for ages 0-17 years) Not on file 0 12/12/2023 Are you homeless or worried that you might be in the future? No 12/12/2023 Are you (or your family) tunde eless or worried that you might be in the future? (Household - for ages 0-17 years) Not on file Food Insecurity Answer Date Recorded Do you need food for this week? Yes 12/12/2023 Are you able to get enough f ood for your family? (Household - for ages 0-17 years) Not on file 12/12/2023 Does your family need food t his week? (Household - for ages 0-17 years) Not on file 12/12/2023 Do you always have enough fo od for your family? 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 Answer Date of Assessment Author Yes 10/21/2023 6:05 PM EDT Aaron House RN * Are you blind or do you have serious difficulty seeing, even when wearing glasses? Answer Date of Assessment Author Yes 10/21/2023 6:05 PM EDT Aaron House RN * Do you have serious difficulty walking or climbing stairs? (5 years old or older) Answer Date of Assessment Author Yes 10/21/2023 6:05 PM FERT Aaron House RN * Do you have difficulty dressing or bathing? (5 years old or older) Answer Date of Assessment Author No 10/21/2023 6:05 PM EDT Aaron House RN * Because of a physical, mental, or emotional condition, do you have difficulty doing errands alone such as visiting a doctors office or shopping? (15 years old or older) Answer Date of Assessment Author Yes 10/21/2023 6:05 PM EDT Aaron House RN documented as of this encounter Mental Status * Because of a physical, mental, or emotional condition, do you have serious difficulty concentrating, remembering, or making decisions? (5 years old or older) Answer Entry Date Author No 10/21/2023 6:05 PM EDT Aaron House RN documented in this encounter Miscellaneous Notes * Telephone Encounter - Miriam Pradhan LPN - 04/25/2024 1:31 PM EST ----- Message from Devin Hodge MD sent at 04/25/2024 12:50 PM EST ----- Elevated BNP at 1082 units noted on 04/12/2024 (was 854 units last year). TATI cc'd to PCP Chart note documented in this encounter Plan of Treatment Upcoming Encounters Date Type Department Care Team (Late st Contact Info) Description 05/04/2024 2:30 PM EST Home Visit [facility] at [address] [place] [address] Jenifer Linder RN [address] [facility] [place] [address] 05/18/2024 2:00 PM EST Hem/Onc Treatment Hematology/On[facility] Treatment, [place] [address] [facility] [phone] Hannah, Chair 5 Hem [address] [facility] [address] 05/28/2024 11:00 AM EST Home Visit [facility] [address] [facility] [place] [address] Heath Zhang PA-C [address] [place] [address] 06/14/2024 3:20 PM EST Office Visit Pulmonary Medicine, [facility] [address] [place] [address] Devin [facility] [address] [facility] [address] 06/27/2024 3:00 PM EDT Office Visit Hematology/Oncology [facility] [place] [phone] Michael Snyder MD [address] [facility] [place] [address] 07/30/2024 11:40 AM EDT Office Visit [facility] [address] [place] [phone] Shanika Fitzgerald DO [address] [facility] [place] [address] 07/30/2024 4:00 PM EDT Office Visit [facility]ph[facility], [facility] [address] [facility] [place] [address] Reggie Azevedo MD [address] [facility] [place] [address] 11/06/2024 5:40 PM EDT [facility] [address] [facility] [place] [phone] Jairo Kingston MD [address] [facility] [place] [address] Scheduled Procedures Name Priority Associated Diagnoses Date/Ti me COLONOSCOPY FLEXIBLE PROXIMAL DIAGNOSTIC Recall History of colon polyps Health Maintenance Due Date Last Done Comments Adult Wellness Visit 2014 Albumin/Creatinine Ratio 10/08/2022 10/08/2021 COVID-19 Vaccine ( season) 2023 02/19/2021, 06/19/2020, 05/22/2020 GFR 09/21/2024 03/23/2024, 12/17, 10/26/2023, Additional history exists Depression Screening 10/09/2024 10/10/2023 O2 ASSESSMENT COMPLETED IN PAST YEAR FOR COPD 10/25/2024 10/26/2023 Nephrology Referral 12/12/2024 12/13/2023 PTH 12/29/2024 12/30/2023, 110 10/2022, 12/31/2021, Additional history exists Phosphate 12/29/2024 12/30/2023, 07/0 09/2023, 02/22/2023, Additional history exists AAA Monitoring 01/18/2025 01/19/2024, 07/0 08/2023, 10/19/2023, Additional history exists Hgb 04/20/2025 04/20/2024, 12/0 09/2023, 02/24/2024, Additional history exists Colonoscopy 01/02/2026 01/02/2021, 07/17, 08/02/2017, Additional history exists DTap/Tdap Vaccines (4 - Td or Tdap) 03/04/2032 03/04/2022, 12/14/2011, 06/11/2002 Pneumococcal Vaccine: 50+ Years Completed 06/12/2015, 06/10/2014 RETIRED - COLONOSCOPY-EVERY 5 YRS AGES 18-100 Discontinued 01/02/2021, 08/02/2017, 08/02/2017, Additional history exists Alpha-1 Antitrypsin Completed 01/07/2023 Influenza Vaccine (FLU shot) Completed 02/27/2024, 01/10/2023, 03/04/2022, Additional history exists HPV (Gardasil) Vaccine Aged Out No lo nger eligible based on patient's age to complete this topic Hepatitis B Vaccine Aged Out No longe r eligible based on patient's age to complete this topic MENINGOCOCCAL (MENACTRA/MENVEO) Aged Out No longer eligible based on patient's age to complete this topic Zoster Vaccines Discontinued documented as of this encounter Medical Devices Implanted Type Area Climatology Professor Device Identifier Shelf Expiration Date Model / Serial / Lot Graft Hemasheild 20mm [id number] - [id number] Implanted:Qty: 1 on 01/13/2009 [place] [facility] [place]: Abdomen MICROVASIVE [id number] / / [id number] Clip Resolution 360 Endo 235cm - [id number] Implanted:Qty: 1 on 12/10/2022 by Lacie England MD at OR [facility] [employer] : ENDOSCOPY [id number] 07/02/2025 [id number] / / [id number] Clip Resolution 360 Endo 235cm - [id number] Implanted:Qty: 1 on 12/10/2022 by Lacie England MD at OR [facility] [employer] : ENDOSCOPY [id number] 07/02/2025 [id number] / / [id number] Stent Biliary Adult L30mm Dia1 - [id number] Implanted:Qty: 1 on 10/26/2023 by Lacie England MD at OR [facility] COOK : JOHANNA COURTNEY [id number] 06/27/2026 [id number] / / [id number] documented as of this encounter Advance Directives Documents on File Type Date Recorded Patient Real Estate Specialist Expl anation Power of Software Performance Engineer 07/30/2022 POWER OF A TTORNEY * Full Code (Latest Code Status on File) Date Activated Date Inactivated Comments 10/21/2023 5:00 PM 10/27/2023 2:36 PM This order re flects the patients wishes and were consensually agreed upon. Question Answer Comments Discussion of Advance Directives occurred with: Patient * Full Code Date Activated Date Inactivated Comments 12/08/2022 3:37 [...] and were consensually agreed upon. Care Teams Dispatcher Tow Truck Relationship Specialty Start Date End Date Jairo Kingston MD PCP - General 12/21/05 documented as of this encounter
--- OUTSIDE RECORDS SUMMARY | 2024-04-26 10:49 | External Medical Summary ---
Author Name Unknown Address Unknown Organization K01:LABORATORY [facility] [place] - [address] [place] [address] Laboratory Report Ordering Provider Test Date Status FELICITA CALHOUNI 04/12/2024 12:46:17 Final Exclude Heart Failure: <300 pg/mL
Diagnose Heart Failure:
Age <50 yr: >450 pg/mL
50-75 yr: >900 pg/mL
>75 yr: >1800 pg/mL
GFR is 30-59 mL/min: >1200 pg/mL or Age- adjusted values
GFR <30 mL/min: do not use, not reliable

Prognostic threshold: 1000 pg/mL Observation Date Value Abnormality Reference (Units ) Status BNP, Pro-hormone 04/12/2024 12:46:17 1082 Above high no rmal <300 (pg/mL) Final Performing Location LABORATORY [facility] [place] - [address] [place] [address]
--- OUTSIDE RECORDS SUMMARY | 2024-04-26 10:49 | External Medical Summary ---
Author Name Unknown Address Unknown Organization [id number]:LABORATORY [facility] [place] - [address] [place] [address] Laboratory Report Ordering Provider Test Date Status ELIZA CALHOUN 04/12/2024 12:46:17 Final Observation Date Value Abnormality Reference (Units ) Status IgE 04/12/2024 12:46:17 16.8 <=214.0 (k U/L) Final Performing Location LABORATORY [facility] - [address] [facility] [address]
--- OUTSIDE RECORDS SUMMARY | 2024-04-26 10:49 | External Medical Summary | Summary of Care ---
Author Name Unknown Organization [facility] Address [address] [place] [address] Phone [phone] Care Team Providers Care Pearl Hand Name Role Phone Jairo Kingston MD Primary Care Provider [phone] Reason for Visit * Reason Comments IV Therapy Venofer Encounter Details Date Type Department Care Team (Latest Contact Info) Description 04/20/2024 2:00 PM EST Hem/Onc Treatment Hematology/Oncology Treatment, [address] [phone] Hannah, Chair 3 Hem Onc [address] [address] Iron deficiency anemia due to chronic blood loss* Allergies Active Allergy Reactions Criticality Noted Date Comments Pavan Inhibitors Other (Please comment) 0 Hyperkalemia documented as of this encounter (statuses as of 04/20/2024) Medications oxygen GAS Use 3 L/min(Oxygen) as [...] 0.1 % Nasal Solution (Astelin) Administer 1 [place] into nostril in the morning and 1 [place] before bedtime. 30 mL 1 01/12/20 23 [...] 1 Tablet before bedtime. 180 Tablet 3 09/05/20 24 Active Fluticasone Propionate 50 MCG/ACT Nasal Suspension (Flonase) Administer 2 Sprays into nostril daily as needed for Allergies. 48 g 3 01/30/20 Active Apixaban 2.5 MG Oral Tablet (Eliquis)Indication s:Recurrent cerebrovascular accidents (CVAs) ([facility]) Take 1 Tablet by mouth in the morning and 1 Tablet before bedtime. 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 (Household - for ages [...] Sign Reading Time Taken Comments Blood Pressure 159/82 04/20/2024 2:21 PM EST Pulse 84 04/20/2024 2:21 PM EST Temperature 36.4 C (97.5 F) 04/20/2024 2:21 PM ES T Respiratory Rate 16 04/20/2024 2:21 PM EST Oxygen Saturation 88% 04/20/2024 2:21 PM EST Inhaled Oxygen Concentration - - Weight - - Height - - Body Mass Index - - documented in this encounter Functional Status * Are you [...] Entry Date Author No 10/21/2023 6:05 PM Aaron Nevarez RN documented in this encounter Nursing Notes * Lisa Vides LPN - 04/20/2024 2:27 PM EST Patient arrived Chair 11 for IV therapy. Vital signs are stable. IV access successful at the right forearm; positive blood return; IV line flushed with ease; 10mL blood discarded; Labs drawn from IV site; 10mL NSS flushed through line after lab draw. IV fluids connected and infusing. Call riggins within reach. Patient instructed on use of heat and massage functions where applicable. Patient shown how to operate the heat function of the chair and to alert nursing staff if the chair feels too warm. Patient instructed on the risk of potential watson while using the heat function. 1355 Patient completed IV therapy. IV access discontinued; site cleaned and bandaged. Patient instructed to remove Coban wrap after 30 minutes due to being on blood thinners. Patient discharged in stable condition and will return in 1 month. documented in this encounter Plan of Treatment Upcoming Encounters Date Type Department Care Team (Late st Contact Info) Description 04/24/2024 6:00 PM EST Office Visit [facility] [place] [facility] [address] [facility] [address] [phone] Jairo Kingston MD [address] [place] [address] 05/04/2024 2:30 PM EST Home Visit [facility], [facility] [address] [facility] [place] [address] Jenifer Linder RN [address] [facility] [place] [address] 05/18/2024 2:00 PM EST Hem/Onc Treatment Hematology/Oncology Treatment, [place] [address] [place] [phone] Hannah, Chair 5 Hem Onc [address] [place] [address] 05/28/2024 11:00 AM EST Home Visit [facility], [facility] [address] [place] [address] Heath Zhang PA-C [address] [facility] [place] [address] 06/14/2024 3:20 PM EST Office Visit Pulmonary Medicine, [facility] [address] [facility] [place] [address] Devin Hodge MD [address] [place] [address] 06/27/2024 3:00 PM EDT Office Visit Hematology/Oncology [address] [place] [phone] Michael Snyder MD 200 [facility] [place] [address] 07/30/2024 11:40 AM EDT Office Visit [facility] Yasmeen Solorzano [place] [address] [place] [phone] Shanika Fitzgerald DO [address] [place] [address] 07/30/2024 4:00 PM EDT Office Visit Nephrology[facility]uliet [address] [place] [address] Reggie Azevedo MD [address] [place] [address] Pending Results Name Type Priority Associated Diagnoses Date /Time FERRITIN Lab STAT Iron deficiency anemia due to chronic blood loss 04/20/2024 1:58 PM EST IRON SCREEN, INCLUDING TIBC Lab STAT Iron deficiency anemia due to chronic blood loss 04/20/2024 1:58 PM EST Scheduled Procedures Name Priority Associated [...] Nephrology Referral 12/12/2024 12/13/2023 PTH 12/29/2024 12/30/2023, 10/2022, 12/31/2021, Additional history exists Phosphate 12/29/2024 12/30/2023, 0 09/2023, 02/22/2023, Additional history exists AAA Monitoring 01/18/2025 01/19/2024, 070 08/2023, 10/19/2023, Additional history exists Hgb 04/20/2025 [...] this encounter Medical Devices Implanted Type Area Supervisor Alteration Workroom Device Identifier Shelf Expiration Date Model / Serial / Lot Graft Hemasheild 20mm [id number] - [id number] Implanted:Qty: 1 on 01/13/2009 at OR [facility] [place] N/A: Abdomen MICROVASIVE [id number] / / [id number] Clip Resolution 360 Endo 235cm - [id number] Implanted:Qty: 1 on 12/10/2022 by Lacie England MD at OR [facility] [employer] : ENDOSCOPY [id number] 07/02/2025 [id number] / / [id number] Clip Resolution 360 Endo 235cm - [id number] Implanted:Qty: 1 on 12/10/2022 by Lacie England MD at OR [facility] [employer] : ENDOSCOPY [id number] 07/02/2025 [id number] / / [id number] Stent Biliary Adult L30mm Dia1 - [id number] Implanted:Qty: 1 on 10/26/2023 by Lacie England MD at OR [facility] ROZ : JOHANNA COURTNEY [id number] 06/27/2026 [id number] / / [id number] documented as of this encounter Procedures Procedure Name Priority Date/Time Associated Diagnosis Comments DIFFERENTIAL, AUTOMATED STAT 04/20/2024 1:58 PM EST Iron deficiency anemia due to chronic blood loss CBC STAT 04/20/2024 1:58 PM EST Iron deficiency anemia due to chronic blood loss CBC STAT 04/20/2024 1:58 PM EST Iron deficiency anemia due to chronic blood loss DIFFERENTIAL, TECHNOLOGIST REVIEW Routine 04/20/2024 1:58 PM EST Iron deficiency anemia due to chronic blood loss documented in this encounter Results * (ABNORMAL) DIFFERENTIAL, TECHNOLOGIST REVIEW (04/20/2024 1:58 PM EST) Pathologist [facility] [place] nRBCs 04/20/2024 2:49 PM EST [facility]- Giant PLTs Present(A) None Seen 04/20/2024 2:49 PM EST [facility]-02 Blood Venous blood specimen / Unknown Venipuncture / Unknown 04/20/2024 1:58 PM EST 04/20/2024 2:20 PM EST us Sheri [facility] LAB BLOOD ORDERABLES Fi nal Result [facility]- [address] [place] [address] * (ABNORMAL) DIFFERENTIAL, AUTOMATED (04/20/2024 1:58 PM EST) Pathologist [facility] [place] WBC 8.38 4.00 - 10.80 K/uL 04/20/2024 2:49 PM EST [facility] 56-02 Neutrophils % 91.6(H) 40.0 - 75.0 % 04/20/2024 2:49 PM EST [facility] 56- Lymphocytes % 5.5(L) 18.0 - 42.0 % 04/20/2024 2:49 PM EST [facility]- Monocytes % 2.1 1.0 - 11.0 % 04/20/2024 2:49 PM EST [facility]- Eosinophils % 0.6 0.0 - 6.0 % 04/20/2024 2:49 PM EST [facility]- Basophils % 0.2 0.0 - 2.0 % 04/20/2024 2:49 PM EST [facility] 56- Absolute Neutrophils 7.67 1.80 - 7.70 K/uL 04/20/2024 2:49 PM EST [facility]- Absolute Lymphocytes 0.46(L) 1.00 - 4.80 K/ul 04/20/2024 2:49 PM EST [facility] 56- Absolute Monocytes 0.18 0.00 - 1.10 K/uL 04/20/2024 2:49 PM EST [facility] 56 Absolute Eosinophils 0.05 0.00 - 0.70 K/uL 04/20/2024 2:49 PM EST [facility] 56 Absolute Basophils 0.02 0.00 - 0.20 K/uL 04/20/2024 2:49 PM [facility] 56 Blood Venous blood specimen / Unknown Venipuncture / Unknown 04/20/2024 1:58 PM EST 04/20/2024 2:20 PM EST us Sheri [facility] LAB BLOOD ORDERABLES Fi nal Result [facility] [address] [place] [address] * (ABNORMAL) CBC (04/20/2024 1:58 PM EST) [facility] WBC 8.38 4.00 - 10.80 K/uL 04/20/2024 2:49 PM EST [facility] 56 RBC 4.00 4.50 - 5.25 M/uL 04/20/2024 2:49 PM EST [facility] 56 HGB 13.1(L) 14.0 - 16.8 g/dL 04/20/2024 2:49 PM [facility] 56 HCT 40.8 40.0 - 48.4 % 04/20/2024 2:49 PM EST [facility] 56 MCV 102.0 82.0 - 99.5 fL 04/20/2024 2:49 PM EST [facility] 56 MCH 32.8 27.0 - 34.0 pg 04/20/2024 2:49 PM EST [facility] 56 MCHC 32.1 32.0 - 36.0 g/dL 04/20/2024 2:49 PM EST [facility] 56 RDW 15.9 11.5 - 15.5 % 04/20/2024 2:49 PM EST [facility] 56 PLT 194 140 - 400 K/uL 04/20/2024 2:[address] MPV 10.2 6.6 - 11.1 fL 04/20/2024 2:49 PM EST [facility] 56 Blood Venous blood specimen / Unknown Venipuncture / Unknown 04/20/2024 1:58 PM EST 04/20/2024 2:20 PM EST us Sheri [facility] LAB BLOOD ORDERABLES nal Result [address] [place], [place] [phone] documented in this encounter Visit Diagnoses Diagnosis Advanced care planning/counseling discussion- Primary Other specified counseling Chronic hypoxemic respiratory failure (HCC) Chronic respiratory failure Chronic obstructive pulmonary disease, unspecified COPD type (HCC) Waldenstrom macroglobulinemia Macroglobulinemia Abdominal aortic aneurysm (AAA) without rupture, unspecified part (HCC) Benign hypertension with stage 3b chronic kidney disease (HCC) HTN, goal below 140/90 Unspecified essential hypertension Severe aortic stenosis Aortic valve disorders Iron deficiency anemia due to chronic blood loss Iron 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 (chronic) Dyslipidemia, goal LDL below 100 Other and unspecified hyperlipidemia History of CVA (cerebrovascular accident) without residual deficits Transient ischemic attack (TIA), and cerebral infarction without residual deficits 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 Benign hypertensive kidney disease, stage IV (HCC) Benign hypertensive kidney disease with chronic kidney disease stage I through stage IV, or unspecified History of CVA (cerebrovascular accident) without residual deficits Transient ischemic attack (TIA), and cerebral infarction without residual deficits Waldenstrom macroglobulinemia Macroglobulinemia Hyperparathyroidism (HCC) Hyperparathyroidism, unspecified Severe aortic stenosis Aortic valve disorders Stenosis of left renal artery (HCC) Thoracic aorta atherosclerosis (HCC) Atherosclerosis of aorta Idiopathic chronic gout of foot without tophus, unspecified laterality Abdominal aortic aneurysm (AAA) without rupture, unspecified part (HCC) Iron deficiency anemia due to chronic blood loss Iron 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 (chronic) GINNY on CPAP Obstructive sleep apnea (adult) (pediatric) Chronic hypoxic respiratory failure, on home oxygen therapy (HCC)- Primary Benign hypertensive kidney disease, stage IV (HCC) Benign hypertensive kidney disease with chronic kidney disease stage I through stage IV, or unspecified Iron deficiency anemia due to chronic blood loss Iron 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 (chronic) GINNY on CPAP Obstructive sleep apnea (adult) (pediatric) Advanced care planning/counseling discussion Other specified counseling Chronic hypoxic respiratory failure, on home oxygen therapy (HCC)- Primary COPD, group D, by GOLD 2017 classification (HCC) Shaggy aorta syndrome (HCC) Atherosclerosis of aorta 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) Advanced care planning/counseling discussion Other specified counseling Iron deficiency anemia due to chronic blood loss- Primary Iron 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 (chronic) documented in this encounter Administered Medications Active Administered Medications - up to 3 most recent administrations Medication Order MAR Action Action Date Dose Rate Site diphenhydrAMINE (Benadryl) inj 50 mg 50 mg, IV Push, ONCE PRN Other, Hypersensitivity Reaction, Starting on Tue04/20/24 at 1357, Until 04/21/24 at 1356, For 24 hoursIndications:Iron deficiency anemia due to chronic blood loss EPINEPHrine 1 MG/ML inj 0.3 mg 0.3 mg, Intramuscular, ONCE PRN Other, Hypersensitivity Reaction or Anaphylaxis, Starting on Tue04/20/24 at 1357, Until 04/21/24 at 1356, For 24 hoursIndications:Iron deficiency anemia due to chronic blood loss hEParin 100 UNIT/ML Lock Flush inj 500 Units 500 Units (5 mL), IV Lock, PRN Other, IV Flush, Starting on Tue04/20/24 at 1357, Until 04/21/24 at 1356, For 24 hours, Do not flush if lock, PICC, or central line not in place; IV infusing or unable to flush.Indications:Iron deficiency anemia due to chronic blood loss Hydrocortisone Sod Suc (PF) (Solu-Cortef) inj 100 mg 100 mg, IV Push, ONCE PRN Other, Hypersensitivity Reaction, Starting on Tue04/20/24 at 1357, Until 04/21/24 at 1356, For 24 hoursIndications:Iron deficiency anemia due to chronic blood loss NSS infusion 500 mL, Intravenous, at 50 mL/hr, CONTINUOUS, Starting on Tue04/20/24 at 1500, Until 04/21/24 at 0059Indications:Iron deficiency anemia due to chronic blood loss Start Infusion 04/20/2024 2:13 PM EST 500 mL 50 mL/hr oxygen GAS Inhalation, OXYGEN, First dose on Tue04/20/24 at 1600, Until Discontinued, Device/Managed by: Low [...] less than 85% and when escalating delivery device.Indications:Iron deficiency anemia due to chronic blood loss sodium chloride 0.9 % flush central line 10 mL 10 mL, IV Push, PRN Other, IV Flush, Starting on Tue04/20/24 at 1357, Until 04/21/24 at 1356, For 24 hours, Do not flush if lock, PICC, or central line not in place; IV infusing or unable to flush.Indications:Iron deficiency anemia due to chronic blood loss Inactive Administered Medications - up to 3 most recent administrations Medication Order MAR Action Action Date Dose Rate Site Iron Sucrose (Venofer) 300 mg in NSS 250 mL ivpb 300 mg, IV Piggyback, ONCE, 1 dose, On Tue04/20/24 at 1530, Administer over 90 MinutesIndications:Iron deficiency anemia due to chronic blood loss Start Infusion 04/20/2024 2:14 PM EST 300 mg 180 mL/hr documented in this encounter Advance Directives Documents on File Type Date Recorded Patient School Psychologist Assistant Expl anation Power of Charge Rn 07/30/2022 POWER OF A TTORNEY * Full [...] and were consensually agreed upon. Care Teams Pearl Hand Relationship Specialty Start Date End Date Jairo Kingston MD PCP - General 12/21/05 documented as of this encounter
--- OUTSIDE RECORDS SUMMARY | 2024-04-26 10:49 | External Medical Summary | Summary of Care ---
Author Name Unknown Organization [facility] Address [address] [place] [address] Phone [phone] Care Team Providers Care Cd Mixer Name Role Phone Jairo Kingston MD Primary Care Provider [phone] Reason for Visit * Reason Comments Pulmonary Function Test PFT with broncho dilator Oxygen Assessment Walk with titration Encounter Details Date Type Department Care Team (Latest Contact Info) Description 04/03/2024 10:30 AM EST PulmDiagnostic Pulmonary Function Lab, [facility] [address] [facility] [place] [address] [place], [address] [facility] [place] [address] COPD, group D, by GOLD 2017 classification ([facility])* Allergies Active Allergy Reactions Criticality Noted Date Comments Pavan Inhibitors Other (Please comment) 0 Hyperkalemia documented as of this encounter (statuses as of 04/03/2024) Medications oxygen GAS Use 3 L/min(Oxygen) as directed at bedtime. Use 2-3 l/min continuously to keep pulse ox above 90% Active CVS D3 50 MCG (1999 UT) Oral Capsule (Cholecalciferol)In dications:Vitamin D deficiency TAKE [...] 0.1 % Nasal Solution (Astelin) Administer 1 Hana into nostril in the morning and 1 Hana before bedtime. 30 mL 1 01/12/20 23 [...] Tablet before bedtime. 180 Tablet 3 12/22/19 24 Active Fluticasone Propionate 50 MCG/ACT Nasal Suspension (Flonase) Administer 2 Sprays into nostril daily as needed for Allergies. 48 g 3 01/30/20 24 Active Apixaban 2.5 MG Oral Tablet (Eliquis)Indication s:Recurrent cerebrovascular accidents (CVAs) (HCC) Take 1 Tablet by mouth in the morning and 1 Tablet before bedtime. 60 Tablet 11 4 11:16 AM EST 01/30/20 Active Docusate Sodium 100 MG Oral Capsule (Colace) Take 1 Capsule by mouth in the morning and 1 Capsule before bedtime. 180 Capsule 3 03/12/20 24 Active Albuterol Sulfate HFA 108 (90 Base) MCG/ACT Inhalation Aerosol Solution Inhale by mouth. 54 g 6 03/12/20 24 Active predniSONE 20 MG Oral Tablet (Deltasone)Indicati ons:COPD, group D, by GOLD 2017 classification ([facility]) Take 2 Tablets by mouth in the morning. For 5 days. USE NEEDED FOR EXACERBATION. COPD RESCUE KIT. 10 Tablet 04/03/20 Active Doxycycline Hyclate 100 MG Oral TabletIndications:C OPD, group D, by GOLD 2017 classification ([facility]) Take 1 Tablet by mouth in the morning and 1 Tablet before bedtime. For 7 days. As needed Rescue kit use when directed to take for COPD exacerbation. 14 Tablet 04/03/20 Active Hospital, Clinic, or Other Facility Administered Medication Ordered Dose Route Frequency Start Date End Date Status Albuterol Sulfate (Proventil) (2.5 MG/3ML) 0.083% inhalation solution 2.5 mgIndications:COPD, group D, by GOLD 2017 classification ([facility]) 2.5 mg NEBULIZER PRN 10/03/2023 10/02/2024 Acti ve documented as of this encounter (statuses as of 04/03/2024) Active Problems Problem Noted Date Diagnosed Date [...] Wheezing Medication Regimen Class D - Inhaled [id number] Combination Inhaler (Trellegy) Remote Patient Monitoring Vendor: [...] & Plan (11/11/2022 9:15 PM EDT): Allopurinol intermediate frame tender No new attacks GINNY on CPAP 11/11/2022 [...] as of this encounter (statuses as of 04/03/2024) Resolved Problems Problem Noted Date Diagnosed Date [...] as of this encounter (statuses as of 04/03/2024) Immunizations Name Administration Dates Next Due COVID-19 [...] of Assessment Author No 10/21/2023 6:05 PM Aaron Nevarez RN * Because of a physical, mental, or emotional condition, do you have difficulty doing errands alone such as visiting a doctors office or shopping? (15 years old or older) Answer Date of Assessment Author Yes 10/21/2023 6:05 PM Aaron Nevarez RN documented as of this encounter Mental Status * Because of a physical, mental, or emotional condition, do you have serious difficulty concentrating, remembering, or making decisions? (5 years old or older) Answer Entry Date Author No 10/21/2023 6:05 PM Aaron Nevarez RN documented in this encounter Nursing Notes * Dianelys Colunga, LABORATORY ADMINISTRATIVE DIRECTOR - 04/03/2024 11:26 AM EST Mikhail Fung was identified by name, Date of : (1950), and . Vitals were obtained for testing. Pt has a 1 ppd for 35years smoking history and quit 16 years ago. Pt wears CPAP with 3 liters bled in at night. Pt wears 2-3 liters of oxygen continuously. 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 Spirometry, DLCO, RAW, and TGV performed. A slow volume nebulizer treatment of 0.5ml of albuterol in 3 ml of NSS was given. The proper method of use, as well as anticipated side effects, of this svn are discussed and demonstrated to the patient. Patient demonstrates adequate delivery. Administrations This Visit Albuterol Sulfate (Proventil) (2.5 MG/3ML) 0.083% inhalation solution 2.5 mg Admin Date 04/03/2024 Action Given Dose 2.5 mg Route Nebulizer Documented By Dianelys Colunga RRT Walk with titration SPO2 was 88% on room air. Patient placed on 2 liters. Exercise oximetry performed on 2 liters x 1 minute. Pt ambulated walking with wheelchair 180 feet/ 55 meters. No rest periods were required. Lowest SPO2 on 2 liters was 87%. Pt placed on 3 liters. Exercise oximetry performed on 3 liters x 2 minutes. Pt ambulated 315 feet/ 96 meters. No rest periods were required. Lowest SPO2 on 3 liters was 88%. Pt placed on 4 liters. Exercise oximetry performed on 4 liters x 3 minutes. Pt ambulated 360 feet/ 110 meters. No rest periods were required. LowestSPO2 on 4 liters was 90%. documented in this encounter Plan of Treatment Upcoming Encounters Date Type Department Care Team (Late st Contact Info) Description 04/03/2024 1:40 PM EST Office Visit Pulmonary Medicine, [facility] [address] [facility] [place] [address] [facility] [address] [facility] [address] 04/20/2024 2:00 PM EST Hem/Onc Treatment Hematology/Oncology Treatment, [place] [address] [place] [phone] Hannah, Chair 9 Hem Onc Scenery [address] [place] [address] 04/24/2024 6:00 PM EST Office [facility] [address] [facility] [phone] Jairo Kingston MD [address] [facility] [place] [address] 05/04/2024 2:30 PM EST Home Visit [facility], [facility] [address] [place] [address] Jenifer Linder RN [address] [place] [address] 05/28/2024 11:00 AM EST Home Visit [facility], [facility] [address] [place] [address] Heath Zhang PA-C [address] [place] [address] 06/27/2024 3:00 PM EDT Office Visit Hematology/Oncology [facility] [address] [facility] [place] [id number] Michael Snyder MD [address] [facility] [place] [address] 07/30/2024 11:40 AM EDT Office Visit Sleep Disorders [facility] [address] [place] [phone] Shanika Fitzgerald DO [address] [place] [address] 07/30/2024 4:00 PM EDT Office Visit Nephrology, [facility] [address] [facility] [place], [place] [address] Reggie Azevedo MD [address] [facility] [place], [place] [address] Pending Results Name Type Priority Associated Diagnoses Date /Time DIFFUSION CAPACITY (DLCO) Procedures Routine COPD, group D, by GOLD 2017 classification ([facility]) 04/03/2024 10:53 AM EST LUNG VOLUMES (PLETHYSMOGRAPHY) Procedures Routine COPD, group D, by GOLD 2017 classification ([facility]) 04/03/2024 10:53 AM EST SPIROMETRY B/A BRONCHODILATOR Procedures Routine COPD, group D, by GOLD 2017 classification ([facility]) 04/03/2024 10:53 AM EST Scheduled Procedures Name Priority Associated Diagnoses Date/Ti me COLONOSCOPY FLEXIBLE PROXIMAL DIAGNOSTIC Recall History of colon polyps Health Maintenance Due Date Last Done Comments Adult Wellness Visit 2014 *COPD SEVERITY VERIFIED BY PFT 08/28/2022 Albumin/Creatinine Ratio 10/08/2022 10/08/2021 COVID-19 Vaccine ( season) 2023 02/19/2021, 06/19/2020, 05/22/2020 GFR 09/21/2024 03/23/2024, 12/17, 10/26/2023, Additional history exists Depression Screening 10/09/2024 10/10/2023 O2 ASSESSMENT COMPLETED IN PAST YEAR FOR COPD 10/25/2024 10/26/2023 Nephrology Referral 12/12/2024 12/13/2023 PTH 12/29/2024 12/30/2023, 11/0 10/2022, 12/31/2021, Additional history exists Phosphate 12/29/2024 12/30/2023, 07/0 09/2023, 02/22/2023, Additional history exists AAA Monitoring 01/18/2025 01/19/2024, 07/0 08/2023, 10/19/2023, Additional history exists Hgb 03/23/2025 03/23/2024, 11/0 11/2023, 01/27/2024, Additional history exists Colonoscopy 01/02/2026 01/02/2021, 07/17, [...] this encounter Medical Devices Implanted Type Area Cd Mixer Device Identifier Shelf Expiration Date Model / Serial / Lot Graft Hemasheild 20mm [id number] - [id number] Implanted:Qty: 1 on 01/13/2009 at OR [facility] N/A: Abdomen MICROVASIVE [id number] / / [id number] Clip Resolution 360 Endo 235cm - [id number] Implanted:Qty: 1 on 12/10/2022 by Lacie England MD at OR [facility] [employer] : ENDOSCOPY [id number] 07/02/2025 [id number] / / [id number] Clip Resolution 360 Endo 235cm - [id number] Implanted:Qty: 1 on 12/10/2022 by Lacie England MD at OR [facility] [employer] : ENDOSCOPY [id number] 07/02/2025 [id number] / / [id number] Stent Biliary Adult L30mm Dia1 - [id number] Implanted:Qty: 1 on 10/26/2023 by Lacie England MD at OR [facility] COOK : JOHANNA COURTNEY [id number] 06/27/2026 [id number] / / [id number] documented as of this encounter Procedures Procedure Name Priority Date/Time Associated Diagnosis Comments DIFFUSION CAPACITY (DLCO) Routine 04/03/2024 10:53 AM EST COPD, group D, by GOLD 2017 classification ([facility]) LUNG VOLUMES (PLETHYSMOGRAPHY) Routine 04/03/2024 10:53 AM EST COPD, group D, by GOLD 2017 classification ([facility]) SPIROMETRY B/A BRONCHODILATOR Routine 04/03/2024 10:53 AM EST COPD, group D, by GOLD 2017 classification ([facility]) documented in this encounter Visit Diagnoses Diagnosis [...] Advanced care planning/counseling discussion Other specified counseling COPD, group D, by GOLD 2017 classification (HCC)- Primary documented in this encounter Administered Medications Active Administered Medications - up to 3 most recent administrations Medication Order MAR Action Action Date Dose Rate Site Albuterol Sulfate (Proventil) (2.5 MG/3ML) 0.083% inhalation solution 2.5 mg 2.5 mg, Nebulizer, PRN Other, ONCE FOR PFT, Starting on Tue10/03/23 at 1325, Until Tue10/02/24 at 1324, For 365 daysIndications:COPD, group D, by GOLD 2017 classification (HCC) Given 04/03/2024 10:33 AM EST 2.5 mg documented in this encounter Advance Directives Documents on File Type Date Recorded 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 Care Teams Cd Mixer Relationship Specialty Start Date End Date Jairo Kingston MD [address] [facility] [place] [place] [address] PCP - General 12/21/05 documented as of this encounter
--- OUTSIDE RECORDS SUMMARY | 2024-04-26 10:49 | External Medical Summary | Summary of Care ---
Author Name Unknown Organization [facility] Address [address] [place] [address] Phone [phone] Care Team Providers Care Button Sawyer Name Role Phone Jairo Kingston MD Primary Care Provider [phone] Reason for Visit * Reason Comments Follow Up Encounter Details Date Type Department Care Team (Latest Contact Info) Description 04/03/2024 1:40 PM EST Office Visit Pulmonary Medicine, [facility] [address] [place] [id number] Devin Hodge MD [address] [facility] [place] [id number] Moderate persistent asthma without complication*; COPD, group D, by GOLD 2017 classification ([facility]) Allergies Active Allergy Reactions Criticality Noted Date Comments Pavan Inhibitors Other (Please comment) 0 Hyperkalemia documented as of this encounter (statuses as of 04/03/2024) Medications oxygen GAS Use 3 L/min(Oxygen) as directed at bedtime. Use 2-3 l/min continuously to keep pulse ox above 90% Active CVS D3 50 MCG (1999 UT) Oral Capsule (Cholecalciferol)I ndications:Vitamin D deficiency TAKE 1 CAPSULE BY MOUTH EVERY DAY 90 Cap 1 020 Active CPAP every night at bedtime. Active Ascorbic Acid 250 MG Oral TabletIndications: Iron deficiency anemia, unspecified iron deficiency anemia type Take 0.5 Tablets by mouth daily at noon. 90 Tablet 3 12/29/19 23 7:19 PM EDT 023 Active Azelastine HCl 0.1 % Nasal Solution (Astelin) Administer 1 [place] into nostril in the morning and 1 [place] before bedtime. 30 mL 1 023 Active Pantoprazole Sodium 40 MG Oral Tablet Delayed Release (Protonix) Take 1 Tablet by mouth in the morning and 1 Tablet before bedtime. 180 Tablet 3 024 Active Allopurinol 300 MG Oral Tablet (Zyloprim)Indicati ons:Gout TAKE ONE-HALF TABLET BY MOUTH EVERY DAY 45 Tablet 2 11/26/19 24 1:40 PM EDT 024 2024 Active Ipratropium-Albute rol 0.5-2.5 (3) MG/3ML Inhalation Solution (Duoneb) Inhale 3 mL by mouth every 6 hours as needed (sob). 360 mL 5 01/20/20 24 7:05 AM EDT 024 Active Trelegy Ellipta 100-62.5-25 MCG/ACT Aerosol Powder Breath Activated (Fluticasone-Umecl idinium-Vilanterol ) INHALE ONE PUFF BY MOUTH EVERY DAY 180 Each 1 03/14/20 24 11:16 AM EST 024 Active Potassium Chloride ER 10 MEQ Oral Capsule Extended Release Take 1 Capsule by mouth in the morning On Tuesday, Tuesday and Tuesday only 45 Capsule 3 02/04/20 24 10:25 AM EDT 024 Active Atorvastatin Calcium 80 MG Oral Tablet (Lipitor) Take 1 Tablet by mouth daily. Active guaiFENesin ER 600 MG Oral Tablet Extended Release 12 Hour (Humibid LA) Take 1 Tablet by mouth 2 times a day as needed for Congestion. Active Furosemide 20 MG Oral Tablet (Lasix) TAKE 1 TABLET BY MOUTH twice DAILY 180 Tablet 1 03/14/20 24 11:16 AM EST 024 Active Metoprolol Tartrate 25 MG Oral Tablet (Lopressor) Take 1 Tablet by mouth in the morning and 1 Tablet before bedtime. 180 Tablet 3 Active Fluticasone Propionate 50 MCG/ACT Nasal Suspension (Flonase) Administer 2 Sprays into nostril daily as needed for Allergies. 48 g 3 Active Apixaban 2.5 MG Oral Tablet (Eliquis)Indicatio ns:Recurrent cerebrovascular accidents (CVAs) ([facility]) Take 1 Tablet by mouth in the morning and 1 Tablet before bedtime. 60 Tablet 11 03/14/20 24 11:16 AM EST Active Docusate Sodium 100 MG Oral Capsule (Colace) Take 1 Capsule by mouth in the morning and 1 Capsule before bedtime. 180 Capsule 3 Active Albuterol Sulfate HFA 108 (90 Base) MCG/ACT Inhalation Aerosol Solution Inhale by mouth. 54 g 6 Active Doxycycline Hyclate 100 MG Oral TabletIndications: COPD, group D, by GOLD 2017 classification ([facility]) Take 1 Tablet by mouth in the morning and 1 Tablet before bedtime. Do all this for 10 days. As needed Rescue kit use when directed to take for COPD exacerbation. 20 Tablet 4 024 2023 Active predniSONE 20 MG Oral Tablet (Deltasone)Indicat ions:COPD, group D, by GOLD 2017 classification ([facility]) Take 2 Tablets by mouth in the morning for 5 days. For 5 days. USE NEEDED FOR EXACERBATION. COPD RESCUE KIT. 10 Tablet 4 024 2023 Active predniSONE 20 MG Oral Tablet (Deltasone)Indicat ions:COPD, group D, by GOLD 2017 classification ([facility]) Take 2 Tablets by mouth in the morning. For 5 days. USE NEEDED FOR EXACERBATION. COPD RESCUE KIT. 10 Tablet 024 2023 Discontinued Doxycycline Hyclate 100 MG Oral TabletIndications: COPD, group D, by GOLD 2017 classification ([facility]) Take 1 Tablet by mouth in the morning and 1 Tablet before bedtime. For 7 days. As needed Rescue kit use when directed to take for COPD exacerbation. 14 Tablet 024 2023 Discontinued Hospital, Clinic, or Other Facility Administered Medication Ordered Dose Route Frequency Start Date End Date Status Albuterol Sulfate (Proventil) (2.5 MG/3ML) 0.083% inhalation solution 2.5 mgIndications:COPD, group D, by GOLD 2017 classification (HCC) 2.5 mg NEBULIZER PRN 10/03/2023 10/02/2024 Acti [...] Wheezing Medication Regimen Class D - Inhaled Dssaoqczqfmpqa-WOPU-DSHK Combination Inhaler (Trellegy) Remote Patient Monitoring Vendor: [...] & Plan (11/11/2022 9:15 PM EDT): Allopurinol snf No new attacks GINNY on CPAP 11/11/2022 [...] Passive Smoke Exposure: Never Smokeless Tobacco: Never Tobacco Cessation:Counseling Given: Not [...] money to buy more. Never true 12/12/19 Within the past 12 months, t he [...] Sign Reading Time Taken Comments Blood Pressure 130/80 04/03/2024 11:11 AM EST Pulse 67 04/03/2024 11:11 AM EST Temperature - - Respiratory Rate 18 04/03/2024 11:1 1 AM EST Oxygen Saturation 88% 04/03/2024 11: 11 AM EST At rest on room air. Placed on 2 liters for SPO2 of 91% Inhaled Oxygen Concentration - - Weight 93 kg (205 lb) 04/03/2024 11:11 AM EST Height 164.1 cm (5' 4.6") 04/03/2024 11 :11 AM EST Body Mass Index 34.54 04/03/2024 11:11 AM EST documented in this encounter Functional Status * Are you deaf or do you have serious difficulty hearing? Answer Date of Assessment Author Yes 10/21/2023 6:05 PM Aaron Nevarez RN * Are you blind or do you have serious difficulty seeing, even when wearing glasses? Answer Date of Assessment Author Yes 10/21/2023 6:05 PM Aaron Nevarez RN * Do you have serious difficulty walking or climbing stairs? (5 years old or older) Answer Date of Assessment Author Yes 10/21/2023 6:05 PM Aaron Nevarez RN * Do you have difficulty dressing [...] Aaron House RN documented in this encounter Progress Notes * Devin Hodge MD - 04/03/2024 1:42 PM EST Images from the original note were not included. 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 Quit 15 yrs COPD Chronic Hypoxia 3 LPM activity OSAS on CPAP + 3 L QHS Allergic Asthma, Moderate Persistent Asthma Hx of CVA x 3 - Maintenance Eliquis Therapy status Iron deficiency Anemia, on iron infusion therapy Q Month Hx of recurrent GI Bleed/PUD, stable Hx of AAA s/p repair MARY scarring - chronic Current BD Rx: Trelegy + DuoNeb 3-4 /day +/- rescue Albuterol Home Oxygen at 2 LPM Resting/4 LPM Ativity and 3 LPM QHS Frequent use of rescue Pack therapy status Physical examination is significant for class 3 throat, no JVD, adequate air entry in all lung read, scattered coarse wheezing, no dullness, regular cardiac rhythm, trace lower extremity edema, nonlateralizing Neuro examination. 3 L nasal cannula oxygen in place status noted. Plan: Allergen Screening profile, Elevate Eosinophil count at 11%, Eval for Biologic therapy on f/u C/w current regimen C/w Current Home Oxygen therapy Rescue Pack (Doxy + Prednisone ) refills provided F/u 2 months Follow Up: Return in about 2 months (around 06/04/2024) for Clinic Visit. 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 | For: Clinic Visit | Check-out note: e of rescue Pack therapy status Physical examination is significant for class 3 throat, no JVD, adequate air entry in all lung read, scattered coarse wheezing, no dullness, regular cardiac rhythm, trace lower extremity edema, nonlateralizing Neuro examination. 3 L nasal cannula oxygen in place status noted. Plan: Allergen Screening profile, Elevate Eosinophil count at 11%, Eval for Biologic therapy on f/u C/w current regimen C/w Current Home Oxygen therapy Rescue Pack (Doxy + Prednisone Follow Up: Return in about 2 months (around 06/04/2024) for Clinic Visit. | For: Clinic Visit | Check-out note: ) refills provided F/u 2 months I spent a total of 40-54 minutes (exact time 40 mins) on the date of service in preparation, delivery, and documentation of the care provided to Mikhail Fung excluding any time spent in the performance of separately billed services or time spent by another provider/QHP. Devin Hodge MD Data review: Following reports, and data as outlined below was personally reviewed and interpreted by myself. +ve 6 MWT 04/03/2024: 2 LPM @ rest; 4 LPM with Activity PFT 04/03/2024: GOLD stage II COPD Component Latest Ref Rng 02/24/2024 03/23/2024 Eosinophils % 0.0 - 6.0 % 10.0 (H) 11.3 (H) Legend: (H) High XR CHEST 2 VIEWS - 04/21/2023 HISTORY cough, reports sick for one week, rule out pneumonia TECHNIQUE Chest two views. COMPARISON 12/08/2022. FINDINGS Left mid chest pleural block. Dilatation unfolding of the thoracic aorta not significant changed. Enlarged pulmonary arteries not significant changed. Heart size is within normal limits. Patchy rightlower chest opacification. No pleural effusion. The cardiomediastinal silhouette is within normal limits for size. Surgical clips are present in the upper abdomen. IMPRESSION Patchy right lower chest opacification which could potentially represent pneumonia in appropriate clinical setting. Follow-up till resolution is recommended. CT Chest Without Contrast; Diagnostic Exam date and time: 01/27/2023 Age: 72 years old Clinical indication: Other specified postprocedural states; Additional info: S/P open repair of a 5.7cm juxtarenal aaa FINDINGS: Trachea: Clear central airway. Lungs: Clear Pleural spaces: Left upper lobe lung scarring /round atelectasis contiguous with anterior left pleural calcification and volume loss, unchanged. Coarse pleural calcification anterior left hemithorax, unchanged. Heart: Aortic valvular replacement, unchanged Coronary arteries: Coronary artery calcification, unchanged Lymph nodes: No significant adenopathy. Vasculature: Unchanged ectasia of the brachiocephalic artery. Left subclavian artery aneurysmal dilation measuring up to 2.7 cm, unchanged. Atherosclerotic markedly tortuous thoracic aorta with using similar measuring technique at this time unchanged ascending aortic ectasia measuring up to 4 cm transversely. Unchanged aortic arch saccular aneurysm transverse dimension 5.1 cm using similar measurement technique. Fusiform descending atherosclerotic aneurysm having maximum transverse dimension up to 4.2 cm using similar measurement technique at this time. Main pulmonary artery dilation, unchanged may be due to pressure or volume overload. Bones/joints: Degenerative changes axial spine. Soft tissues: Bilateral gynecomastia, unchanged. IMPRESSION IMPRESSION: 1. Possible pulmonary arterial hypertension, unchanged. 2. Unchanged atherosclerotic thoracic aortic and branch vessel ectasia/aneurysms as noted. Additional findings noted. Subjective CC: Chief Complaint Patient presents with Follow Up HPI: Nursing Notes: Dianelys Colunga, BEEF TAGGER 04/03/24 1125 Signed Interm History/Respiratory Symptoms Cough: Productive whitish/grayish Hemoptysis: No Sinus Symptoms: Sinus drainage and congestion Hospitalizations: October 2023 ED Trips: October 2023 then admitted Triggers: No Nocturnal: CPAP with 3 liters bled in CPAP/BiPAP/O2: CPAP with 3 liters bled in. Pt wears 203 liters continuously. DME Supplier: [facility] Flu Vaccine: 02/27/24 Pneumovax: 05/21/14 Prevnar: 06/12/15 COVID 19: 02/19/21 Mmrc Cat Question 04/03/2024 11:20 AM EST - Filed by Patient When do you become breathless? (3) I stop for breath after walking about 100 yards or after a few minutes on level ground How frequently do you cough? (3) Do you have phlegm in your chest? (3) Is your chest tight? (3) How breathless do you become when walking up a hill or steps? (5) - When I walk up a hill or one flight of stairs I am very breathless How limited are you doing activities at home? (5) - I am very limited doing activities at home How confident are you leaving home with your lung condition? (0) - I am confident leaving my home despite my condition How soundly do you sleep? (1) How much energy do you have? (3) Total MMRC Score (range: 0 - 4) 3 Total CAT Score (range: 0 - 40) 23 Copd Rescue Question 04/03/2024 11:21 AM EST - Filed by Patient Have you used an antibiotic (e.g., azithromycin, doxycycline, augmentin) in the last 12 months because of your breathing or lung problem? Yes, two or more times Have you added or increased the dose of a steroid (e.g., prednisone, solumedrol) in the last 12 months because of your breathing or lung problem? Yes, two or more times Did you go to the ED, or were you hospitalized in the last 12 months because of your breathing or lung problem? Yes Myc Visit Accident Related Question Question 04/03/2024 11:21 AM EST - Filed by Patient Is this visit related to an accident? (i.e work, motor vehicle) No Objective Filed Vitals: 04/03/24 1111 BP: 130/80 Pulse: 67 Resp: 18 SpO2: 88% Weight: 93 kg (205 lb) Height: 1.641 m (5' 4.6") Exam: Const: No signs of acute distress present. Head/Face: Normal on inspection. Eyes: Conjunctivae clear. Pupils equal round and reactive to light. ENMT: Oropharynx: No erythema, exudate or masses. Posterior pharynx is normal. Neck: Supple and symmetric. Resp: Respiratory examination as outlined above CV: Rate is regular. Rhythm is regular. No heart murmur appreciated. Extremities: No edema of the lower limbs bilaterally. Skin: Skin is warm and dry. Neuro: Coordination normal. No involuntary movement. Psych: Patient's attitude is cooperative. Mood is normal. Affect is normal. Tests reviewed with the patient: CT CHEST WO CONTRAST Result Date: 01/24/2024 IMPRESSION 1. Postoperative changes of an abdominal aortic aneurysm repair, with stable ectasia of the suprarenal aorta and distal infrarenal aorta. 2. Stable fusiform aneurysms of the ascending aorta, aortic arch, and descending aorta. 3. Stable size of multiple saccular aneurysms of the descending thoracic aorta, distal infrarenal aorta, and left common iliac artery. 4. 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 5. Cluster of multiple small nodules in the posteroinferior right upper lobe with surrounding ground-glass opacification, concerning for acute bronchiolitis. This may besecondary to aspiration or pneumonia. 6. 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 CT ABD/PELVIS WO IV/ORAL CONTRAST Result Date: 01/24/2024 IMPRESSION 1. Postoperative changes of an abdominal aortic aneurysm repair, with stable ectasia of the suprarenal aorta and distal infrarenal aorta. 2. Stable fusiform aneurysms of the ascending aorta, aortic arch, and descending aorta. 3. Stable size of multiple saccular aneurysms of the descending thoracic aorta, distal infrarenal aorta, and left common iliac artery. 4. 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 5. Cluster of multiple small nodules in the posteroinferior right upper lobe with surrounding ground-glass opacification, concerning for acute bronchiolitis. This may besecondary to aspiration or pneumonia. 6. 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 XR ABDOMEN 1 VIEW Result Date: 10/25/2023 IMPRESSION: Contrast appears in distal small bowel and throughout the colon. There are persistent gas-filled mildly distended loops of small bowel. THIS DOCUMENT HAS BEEN ELECTRONICALLY SIGNED BY RADHA THOMPSON MD XR ABDOMEN 1 VIEW Result Date: 10/21/2023 IMPRESSION: NG tube in the stomach. THIS DOCUMENT HAS BEEN ELECTRONICALLY SIGNED BY EMMAUNEL KELLY MD CT ABD/PELVIS WO IV/ORAL CONTRAST Result Date: 10/21/2023 IMPRESSION: Findings consistent with small bowel obstruction with transition zone in the right upper quadrant along the anterior abdominal wall possibly related to adhesions from prior ventral herniarepair. No obstructing mass or hernia seen. Aneurysmal dilation of the aorta. Additional findings as described. THIS DOCUMENT HAS BEEN ELECTRONICALLY SIGNED BY EMMANUEL KELLY MD CT ABD/PELVIS WO IV/ORAL CONTRAST Result Date: 10/19/2023 IMPRESSION: Fluid-filled small bowel loops in the right abdomen, which may reflect ileus versus low-grade obstruction. Consider continued x-ray follow-up to complete resolution. Multiple chronic vascular findings as above. THIS DOCUMENT HAS BEEN ELECTRONICALLY SIGNED BY CARI CHUNG MD Available Radiologic data was reviewed by me in PACS. The images were shown to the patient and findings were discussed with the patient. HOME MEDICATIONS: Doxycycline Hyclate 100 MG Oral Tablet predniSONE 20 MG Oral Tablet (Deltasone) Albuterol Sulfate HFA 108 (90 Base) MCG/ACT Inhalation Aerosol Solution Docusate Sodium 100 MG Oral Capsule (Colace) Apixaban 2.5 MG Oral Tablet (Eliquis) Fluticasone Propionate 50 MCG/ACT Nasal Suspension (Flonase) Metoprolol Tartrate 25 MG Oral Tablet (Lopressor) Furosemide 20 MG Oral Tablet (Lasix) guaiFENesin ER 600 MG Oral Tablet Extended Release 12 Hour (Humibid LA) Atorvastatin Calcium 80 MG Oral Tablet (Lipitor) Potassium Chloride ER 10 MEQ Oral Capsule Extended Release Trelegy Ellipta 100-62.5-25 MCG/ACT Aerosol Powder Breath Activated (Svcbnmofbfq-Pxaxkvajfgrt-Vzdxllzosu) Ipratropium-Albuterol 0.5-2.5 (3) MG/3ML Inhalation Solution (Duoneb) Allopurinol 300 MG Oral Tablet (Zyloprim) Pantoprazole Sodium 40 MG Oral Tablet Delayed Release (Protonix) Azelastine HCl 0.1 % Nasal Solution (Astelin) Ascorbic Acid 250 MG Oral Tablet CPAP CVS D3 50 MCG (1999) Oral Capsule (Cholecalciferol) oxygen GAS Albuterol Sulfate (Proventil) (2.5 MG/3ML) 0.083% inhalation solution 2.5 mg ROS: No reported history of Hemoptysis, Hematemesis, Melena No reported history of Dysuria, Hematuria, Flank Pain No reported history of chronic headache, seizures No reported history of Fall or trauma . No reported history of recent change in weight or appetite. Past Medical History: Diagnosis Date Abdominal aortic aneurysm (HCC) MAGDALENO (acute kidney injury) ([facility]) 10/21/2023 Backache work related Benign hypertension with stage 3b chronic kidney disease (HCC) 08/26/2020 Benign neoplasm of colon 12/05/2008 adenomatous polyp--repeat 3 years Benign neoplasm of colon 01/11/2012 adenomatous polyp rpt c-scope in 3 years Chronic kidney disease, stage 4 (severe) (HCC) 08/12/2022 Dyslipidemia, goal to be determined GI bleed 12/08/2022 Gout 07/18/2001 HTN, goal below 140/90 Recurrent cerebrovascular accidents (CVAs) ([facility]) 08/12/2022 SBO (small bowel obstruction) ([facility]) 10/21/2023 Varicose vein of leg Past Surgical History: [...] performed by Jayna Montana MD at ENDOSCOPY [facility] COLONOSCOPY, DIAGNOSTIC (RECTUM) 08/02/2017 adenomatous polyps, diverticulosis, repeat 3 yrs/COLONOSCOPY FLEXIBLE PROXIMAL DIAGNOSTIC performedby Lacie England MD at ENDOSCOPY [facility] COLONOSCOPY, DIAGNOSTIC (RECTUM) 01/02/2021 benign adenomatous polyp, diverticulosis, repeat 5 yrs / [facility] COLONOSCOPY, GI REFERRAL OP 08/2004 polyps, repeat 08/23 EGD, FLEXIBLE, DIAGNOSTIC 02/20/2018 normal / [facility] EGD, FLEXIBLE, DIAGNOSTIC 11/04/2021 gastritis, gastric ulcer, repeat 3 mo / [facility] EGD, FLEXIBLE, DIAGNOSTIC 03/03/2022 normal egd, EGD, FLEXIBLE, DIAGNOSTIC N/A 12/28/2022 clotted blood gastric fundus, cleared/single actively bleeding angioectasia stomach, treated with APC, padlock clip/cholecystoduodenal axios stent duodenum/EGD/[place] EGD, FLEXIBLE, DIAGNOSTIC N/A 02/23/2023 retained endoclips stomach/2 non-bleeding angioectasias stomach, treated with APC and clips/cholecystoduodenostomy Axios stent intact/repeat 6 months/EGD/[place] EGD, FLEXIBLE, DIAGNOSTIC N/A 10/26/2023 Cholecystoduodenostomy AXIOS metal stent, removed/removed and exchanged with double pigtail plasticstent/ESOPHAGOGASTRODUODENOSCOPY (EGD), FLEXIBLE, TRANSORAL, DIAGNOSTIC performed by Lacie England MD at OR [facility] EGD, FLEXIBLE, W/CYST DRAINAGE N/A 12/10/2022 single non-bleeding angioectasia stomach/ESOPHAGOGASTRODUODENOSCOPY (EGD), FLEXIBLE, TRANSORAL, WITH DRAINAGE PSEUDOCYST performed by Lacie England MD at OR [facility] EGD, FLEXIBLE,W/ENDOSCOPIC US 11/04/2022 CBD dilation, CBD stones, angioectasias in the stomach / [facility] EGD, W/ENDOSCOPIC US N/A 12/10/2022 cholecystoduodenostomy performed using Axios stent/repeat 1 year/ESOPHAGOGASTRODUODENOSCOPY (EGD), FLEXIBLE, TRANSORAL, ENDOSCOPIC ULTRASOUND performed by Lacie England MD at OR [facility] ERCP 11/04/2022 choledocholithiasis, stent placed, repeat 3 mo / [facility] ERCP 11/26/2022 clots found in biliary tree, stent placed / [facility] ERCP, DIAGNOSTIC, SPECIMEN COLLECTION N/A 12/10/2022 one stent removed from CBD/ENDOSCOPIC RETROGRADE CHOLANGIOPANCREATOGRAPHY (ERCP) DIAGNOSTIC performed by Lacie England MD at OR [facility] MISCELLANEOUS ORDER ([facility] ONLY) 01/28/2010 Lysis of extensive adhesions, incisional hernia repair laparoscopically 01/28/10 [facility], Dr. 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 Employer: [id number] Employer: [id number] Tobacco Use Smoking status: Former Current packs/day: 0.00 Average packs/day: 1 pack/day for 35.0 years (35.0 ttl pk-yrs) Types: Cigars, Cigarettes Start date: 1973 Quit date: 2008 Years since quittin.9 Passive exposure: Never Smokeless tobacco: Never Vaping Use Vaping status: Never Used Substance and Sexual Activity Alcohol use: Yes Alcohol/week: 3.0 standard drinks of alcohol Types: 3 12 oz of beer per week Drug use: No Sexual activity: Yes Partners: Female Social History Narrative 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 (Adult - for ages 18 years and over): Yes Food Insecurity: Food Insecurity Present (12/12/2023) Food Insecurity Do you need food for this week? (Adult - for ages 18 years and over): Yes Transportation Needs: No Transportation Needs (12/12/2023) Transportation Needs Has lack of transportation kept you from medical appointments, meetings, work, or from getting things needed for daily living? Check all that apply. (Adult - for ages 18 years and over): No Social Connections: Socially Integrated (12/12/2023) Social Connections How often do you feel lonely or isolated from those around you? (Adult - for ages 18 years and over): Never Housing Stability: Low Risk (12/12/2023) Housing Stability Do you currently live in a [place] or have no steady place to sleep at night? (Adult - for ages 18 years and over): No Are you homeless or worried that you might be in the future? (Adult - for ages 18 years and over): No Family History Problem Relation Name Age of Onset Renal Hx Mother dialysis Other (AAA [Other]) Father Heart disease Sister Pacemaker Hypertension Brother Heart disease Brother PTCA Review of patient's allergies indicates: Allergen Reactions Pavan Inhibitors Other (Please comment) Hyperkalemia documented in this encounter Nursing Notes * Dianelys Colunga, BEEF TAGGER - 04/03/2024 11:21 AM EST Interm History/Respiratory Symptoms Cough: Productive whitish/grayish Hemoptysis: No Sinus Symptoms: Sinus drainage and congestion Hospitalizations: October 2023 ED Trips: October 2023 then admitted Triggers: No Nocturnal: CPAP with 3 liters bled in CPAP/BiPAP/O2: CPAP with 3 liters bled in. Pt wears 203 liters continuously. DME Supplier: [facility] Flu Vaccine: 02/27/24 Pneumovax: 05/21/14 Prevnar: 06/12/15 COVID 19: 02/19/21 Mmrc Cat Question 04/03/2024 11:20 AM EST - Filed by Patient When do you become breathless? (3) I stop for breath after walking about 100 yards or after a few minutes on level ground How frequently do you cough? (3) Do you have phlegm in your chest? (3) Is your chest tight? (3) How breathless do you become when walking up a hill or steps? (5) - When I walk up a hill or one flight of stairs I am very breathless How limited are you doing activities at home? (5) - I am very limited doing activities at home How confident are you leaving home with your lung condition? (0) - I am confident leaving my home despite my condition How soundly do you sleep? (1) How much energy do you have? (3) Total MMRC Score (range: 0 - 4) 3 Total CAT Score (range: 0 - 40) 23 Copd Rescue Question 04/03/2024 11:21 AM EST - Filed by Patient Have you used an antibiotic (e.g., azithromycin, doxycycline, augmentin) in the last 12 months because of your breathing or lung problem? Yes, two or more times Have you added or increased the dose of a steroid (e.g., prednisone, solumedrol) in the last 12 months because of your breathing or lung problem? Yes, two or more times Did you go to the ED, or were you hospitalized in the last 12 months because of your breathing or lung problem? Yes Myc Visit Accident Related Question Question 04/03/2024 11:21 AM EST - Filed by Patient Is this visit related to an accident? (i.e work, motor vehicle) No documented in this encounter Plan of Treatment Upcoming Encounters Date Type Department Care Team (Late st Contact Info) Description 04/20/2024 2:00 PM EST Hem/Onc Treatment Hematology/Oncology Treatment, [place] [address] [place] [phone] Hannah, Chair 9 Hem Onc Scenery [address] [place] [address] 04/24/2024 6:00 PM EST Office Visit [facility] [address] [facility] [place] [phone] Jairo Kingston MD 226 [facility] [place] [address] 05/04/2024 2:30 PM EST Home Visit [place] [facility] [address] [address] Jenifer Linder RN [address] [place] [address] 05/28/2024 11:00 AM EST Home Visit [facility] [address] [address] Heath Zhang PA-C [address] [place] [address] 06/14/2024 3:20 PM EST Office Visit Pulmonary Medicine, [facility] 132 [place] [address] Devin Hodge MD [address] [place] [address] 06/27/2024 3:00 PM EDT Office Visit Hematology/Oncology [facility] [address] [facility] [place] [phone] Michael Snyder MD 200 [facility] [place], [place] [address] 07/30/2024 11:40 AM EDT Office Visit Sleep Disorders [facility] [address] [facility] [place] [phone] Shanika Fitzgerald DO 132 [place] [address] 07/30/2024 4:00 PM EDT Office Visit Nephrology, [facility] 200 [facility] [place] [address] Reggie Azevedo MD 200 [facility] [place], [place] [address] Scheduled Orders Name Type Priority Associated Diagnoses Orde r Schedule [facility] IGE PROFILE Lab Routine COPD, group D, by GOLD 2017 classification ([facility]) Moderate persistent asthma without complication Expected: 04/03/2024 (Approximate), Expires: 04/03/2025 IGE Lab Routine COPD, group D, by GOLD 2017 classification ([facility]) Moderate persistent asthma without complication Expected: 04/03/2024 (Approximate), Expires: 04/03/2025 BNP, NT-PRO Lab Routine COPD, group D, by GOLD 2017 classification ([facility]) Moderate persistent asthma without complication Ordered: 04/03/2024 Scheduled Procedures Name Priority Associated Diagnoses Date/Ti me COLONOSCOPY FLEXIBLE PROXIMAL DIAGNOSTIC Recall History of colon polyps Health Maintenance Due Date Last Done Comments Adult Wellness Visit 2014 *COPD SEVERITY VERIFIED BY PFT 08/28/2022 Albumin/Creatinine Ratio 10/08/2022 10/08/2021 COVID-19 Vaccine ( - season) 2023 02/19/2021, 06/19/2020, 05/22/2020 GFR 09/21/2024 [...] this encounter Medical Devices Implanted Type Area Orthopaedic Technologist Device Identifier Shelf Expiration Date Model / Serial / Lot Graft Hemasheild 20mm [id number] - [id number] Implanted:Qty: 1 on 01/13/2009 at OR [facility] N/A: Abdomen MICROVASIVE [id number] / / [id number] Clip Resolution 360 Endo 235cm - [id number] Implanted:Qty: 1 on 12/10/2022 by Lacie England MD at OR [facility] [place] [employer] : ENDOSCOPY [id number] 07/02/2025 [id number] / / [id number] Clip Resolution 360 Endo 235cm - [id number] Implanted:Qty: 1 on 12/10/2022 by Lacie England MD at OR [facility] [employer] : ENDOSCOPY [id number] 07/02/2025 [id number] / / [id number] Stent Biliary Adult L30mm Dia1 - [id number] Implanted:Qty: 1 on 10/26/2023 by Lacie England MD at OR [facility] COOK : JOHANNA COURTNEY [id number] 06/27/2026 [id number] / / [id number] documented as of this encounter Visit Diagnoses Diagnosis Advanced care [...] COPD, group D, by GOLD 2017 classification ([facility]) Shaggy aorta syndrome (HCC) Atherosclerosis of aorta 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 Care Teams Button Sawyer Relationship Specialty Start Date End Date Jairo Kingston MD [address] [facility] [place] [address] PCP - General 12/21/05 documented as of this encounter
--- OUTSIDE RECORDS SUMMARY | 2024-04-26 10:49 | External Medical Summary | Summary of Care ---
Author Name Unknown Organization [facility] Address [address] [place] [address] Phone [phone] Care Team Providers Care Dietetics Teacher Name Role Phone Jairo Kingston MD Primary Care Provider [phone]- [phone] Encounter Details Date Type Department Care Team (Late st Contact Info) Description 04/05/2024 Orders Only PATIENT PORTAL DO NOT DELETE THIS DEPT USED BY [place] [id number] Allergies Active Allergy Reactions Criticality Noted Date Comments Pavan Inhibitors Other (Please comment) 0 Hyperkalemia documented as of this encounter (statuses as of 04/05/2024) Medications oxygen GAS Use 3 L/min(Oxygen) as [...] 0.1 % Nasal Solution (Astelin) Administer 1 [place] into nostril in the morning and 1 [place] before bedtime. 30 mL 1 01/12/20 23 [...] Oral Tablet (Eliquis)Indication s:Recurrent cerebrovascular accidents (CVAs) ([facility]) Take 1 Tablet by mouth [...] by mouth. 54 g 6 03/12/20 Active Doxycycline Hyclate 100 MG Oral TabletIndications:C OPD, group D, by GOLD 2017 classification ([facility]) Take 1 Tablet by mouth in the morning and 1 Tablet before bedtime. Do all this for 10 days. As needed Rescue kit use when directed to take for COPD exacerbation. 20 Tablet 4 4 8:28 AM EST 04/03/20 24 024 Active predniSONE 20 MG Oral Tablet (Deltasone)Indicati ons:COPD, group D, by GOLD 2017 classification ([facility]) Take 2 Tablets by mouth in the morning for 5 days. For 5 days. USE NEEDED FOR EXACERBATION. COPD RESCUE KIT. 10 Tablet 4 4 8:28 AM EST 04/03/20 24 024 Active Hospital, Clinic, or Other Facility Administered Medication Ordered Dose Route Frequency Start Date End Date Status Albuterol Sulfate (Proventil) (2.5 MG/3ML) 0.083% inhalation solution 2.5 mgIndications:COPD, group D, by GOLD 2017 classification ([facility]) 2.5 mg NEBULIZER PRN 10/03/2023 10/02/2024 Acti ve documented as of this encounter (statuses as of 04/05/2024) Active Problems Problem Noted Date Diagnosed Date [...] Wheezing Medication Regimen Class D - Inhaled Eewvljlzbamhhw-VEGL-RUDK Combination Inhaler (Trellegy) Remote Patient Monitoring Vendor: [...] & Plan (11/11/2022 9:15 PM EDT): Allopurinol usp No new attacks GINNY on [...] as of this encounter (statuses as of 04/05/2024) Resolved Problems Problem Noted Date Diagnosed Date [...] as of this encounter (statuses as of 04/05/2024) Immunizations Name Administration Dates Next Due COVID-19 [...] Author Yes 10/21/2023 6:05 PM EDT Aaron Huose RN * Are you blind or do [...] Aaron Nevarez RN documented in this encounter Plan of Treatment Upcoming Encounters Date Type Department Care Team (Late st Contact Info) Description 04/20/2024 2:00 PM EST Hem/Onc Treatment Hematology/Oncology Treatment, [place] [address] [place] [phone] Hannah, Chair 9 Hem Onc Scene 200 [place] [address] 04/24/2024 6:00 PM EST [facility] [address] [facility] [place] [phone] Jairo [place] MD [address] [place] [address] 05/04/2024 2:30 PM EST Home Visit [place] [facility] [address] [address] Jenifer Linder RN [address] [place] [address] 05/28/2024 11:00 AM EST [facility] [place] [address] Heath Zhang PA-C [address] [place] [address] 06/14/2024 3:20 PM EST Office Visit Pulmonary Medicine, [facility] 132 [facility] [place] [address] Devin Hodge MD [address] [facility] [address] 06/27/2024 3:00 PM EDT Office Visit Hematology/Oncology [facility] [address] [place] [phone] [place] MD 200 [facility] [place] [address] 07/30/2024 11:40 AM EDT Office Visit [facility] Disorders [facility] 132 [facility] [place] [phone] Shanika Fitzgerald DO 132 [facility] [place] [address] 07/30/2024 4:00 PM EDT Office Visit Nephrology, [facility] [address], [place] [address] Reggie Azevedo MD [address] [place] [address] Scheduled Procedures Name Priority Associated Diagnoses Date/Ti [...] this encounter Medical Devices Implanted Type Area Manager Transmission Device Identifier Shelf Expiration Date Model / Serial / Lot Graft Hemasheild 20mm [id number] - [id number] Implanted:Qty: 1 on 01/13/2009 at OR [facility] [place] N/A: Abdomen MICROVASIVE [id number] / / [id number] Clip Resolution 360 Endo 235cm - [id number] Implanted:Qty: 1 on 12/10/2022 by Lacie England MD at OR [facility] [employer] : ENDOSCOPY [id number] 07/02/2025 [id number] / / [id number] Clip Resolution 360 Endo 235cm - [id number] Implanted:Qty: 1 on 12/10/2022 by Lacie England MD at OR [facility] [employer] : ENDOSCOPY [id number] 07/02/2025 [id number] / / [id number] Stent Biliary Adult L30mm Dia1 - [id number] Implanted:Qty: 1 on 10/26/2023 by Lacie England MD at OR [facility] COOK : JOHANNA COURTNEY [id number] 06/27/2026 [id number] / / [id number] documented as of this encounter Advance Directives Documents on File Type Date Recorded Patient Incoming Inspector Expl anation Power of Assistant Head Cashier 07/30/2022 POWER OF A TTORNEY * [...] and were consensually agreed upon. Care Teams Dietetics Teacher Relationship Specialty Start Date End Date Jairo Kingston MD PCP - General 12/21/05 documented as of this encounter
--- OUTSIDE RECORDS SUMMARY | 2024-04-26 10:49 | External Medical Summary | Summary of Care ---
Author Name Unknown Organization [facility] Address [address] [place] [address] Phone [phone] Care Team Providers Care Message And Delivery Service Pricer Name Role Phone Jairo Kingston MD Primary Care Provider +1- [phone] Encounter Details Date Type Department Care Team (Late st Contact Info) Description 04/23/2024 Orders Only Pulmonary Function Lab, [facility] [address] [facility] [place] [address] Devin Hodge MD [address] [facility] [place] [phone] Chronic respiratory failure with hypoxia (HCC)* Allergies Active Allergy Reactions Criticality Noted Date Comments Pavan Inhibitors Other (Please comment) 0 Hyperkalemia documented as of this encounter (statuses as of 04/23/2024) Medications oxygen GAS Use 3 L/min(Oxygen) as [...] 0.1 % Nasal Solution (Astelin) Administer 1 [place] into nostril in the morning and 1 [place] before bedtime. 30 mL 1 01/12/20 23 [...] mgIndications:COPD, group D, by GOLD 2017 classification ([facility]) 2.5 mg NEBULIZER PRN 10/03/2023 10/02/2024 Acti ve documented as of this encounter (statuses as of 04/23/2024) Active Problems Problem Noted Date Diagnosed Date [...] Wheezing Medication Regimen Class D - Inhaled Mcwwzoyutrhtsw-BZIA-XNBA Combination Inhaler (Trellegy) Remote Patient Monitoring Vendor: [...] & Plan (11/11/2022 9:15 PM EDT): Allopurinol mcfp No new attacks GINNY on [...] as of this encounter (statuses as of 04/23/2024) Resolved Problems Problem Noted Date Diagnosed Date [...] as of this encounter (statuses as of 04/23/2024) Immunizations Name Administration Dates Next Due COVID-19 [...] 1 35 1 974 - 2008 Cigars Passive Smoke Exposure: Never Smokeless Tobacco: [...] Description 04/24/2024 6:00 PM EST [facility] [place] [phone] Jairo [place] MD [address] [facility] [place] [address] 05/04/2024 2:30 PM EST [facility] Visit [facility] [address] [address] [address] Jenifer Linder RN [address] [place] [address] 05/18/2024 2:00 PM EST Hem/Onc Treatment Hematology/Oncology Treatment, [place] [address] [facility] [place] [address] Hannah, Chair 5 Hem Onc Scenery [address] [facility] [place] [address] 05/28/2024 11:00 AM EST [facility] [place] [address] [address] Heath Zhang PA-C [address] [place] [address] 06/14/2024 3:20 PM EST Office Visit Pulmonary Medicine, [facility] 132 [facility] [place] [address] Devin Hodge MD [address] [place] [address] 06/27/2024 3:00 PM EDT Office Visit Hematology/Oncology [facility] [address] [place] [phone] Michael Snyder MD 200 [facility] [place] [address] 07/30/2024 11:40 AM EDT Office Visit Sleep Disorders Ctr [facility] 132 [facility] [place] [phone] Shanika Fitzgerald DO 132 [facility] [place] [address] 07/30/2024 4:00 PM EDT Office Visit Nephrology, [facility] [address] [place] [address] Reggie Azevedo MD 200 [facility] [place] [address] Scheduled Procedures Name Priority Associated Diagnoses Date/Ti [...] this encounter Medical Devices Implanted Type Area Workers' Compensation Claims Supervisor Device Identifier Shelf Expiration Date Model / Serial / Lot Graft Hemasheild 20mm [id number] - [id number] Implanted:Qty: 1 on 01/13/2009 [place] [facility] [place]A: Abdomen MICROVASIVE [id number] / / [id number] Clip Resolution 360 Endo 235cm - [id number] Implanted:Qty: 1 on 12/10/2022 by Lacie England MD at OR [facility] [employer] : ENDOSCOPY [id number] 07/02/2025 [id number] / / [id number] Clip Resolution 360 Endo 235cm - [id number] Implanted:Qty: 1 on 12/10/2022 by Lacie England MD at OR [facility] [employer] : ENDOSCOPY [id number] 07/02/2025 [id number] / / [id number] Stent Biliary Adult L30mm Dia1 - [id number] Implanted:Qty: 1 on 10/26/2023 by Lacie England MD at OR [facility] ROZ : JOHANNA COURTNEY [id number] 06/27/2026 [id number] / / [id number] documented as of this encounter Visit Diagnoses [...] care planning/counseling discussion Other specified counseling Chronic respiratory failure with hypoxia (HCC)- Primary Chronic respiratory failure documented in this encounter Advance Directives Documents on File Type Date Recorded Patient Snow Technician Expl anation Power of Life Teacher 07/30/2022 POWER OF A TTORNEY * Full [...] and were consensually agreed upon. Care Teams Message And Delivery Service Pricer Relationship Specialty Start Date End Date Jairo Kingston MD PCP - General 12/21/05 documented as of this encounter
--- OUTSIDE RECORDS SUMMARY | 2024-04-26 10:49 | External Medical Summary ---
Author Name Unknown Address Unknown Organization [id number]:[facility] [place] [address] Laboratory Report Ordering Provider Test Date Status LOLLY ALEGRIA 04/20/2024 13:58:02 Final Observation Date Value Abnormality Reference (Units ) Status Nucleated erythrocytes/100 leukocytes [Ratio] in Blood by Automated count 04/20/2024 13:58:02 Final Giant platelets [Presence] in Blood by Light microscopy 04/20/2024 13:58:02 Present Abnormal None Seen Final Performing Location [facility] [place] [address]
--- OUTSIDE RECORDS SUMMARY | 2024-04-26 10:49 | External Medical Summary ---
Author Name Unknown Address Unknown Organization [id number][facility] [place] [address] [place] [address] Laboratory Report Ordering Provider Test Date Status LOLLY ALEGRIA 04/20/2024 13:58:02 Final Observation Date Value Abnormality Reference (Units ) Status Ferritin 04/20/2024 13:58:02 195 30-400 (ng /mL) Final Performing Location [facility] - [address] [place] [address]
--- OUTSIDE RECORDS SUMMARY | 2024-04-26 10:49 | External Medical Summary ---
Author Name Unknown Address Unknown Organization [id number]:[facility] - [address] [place] [address] Laboratory Report Ordering Provider Test Date Status LOLLY ALEGRIA 04/20/2024 13:58:02 Final Observation Date Value Abnormality Reference (Units ) Status Iron 04/20/2024 13:58:02 53 45-176 (ug /dL) Final Iron-binding capacity 04/20/2024 13:58:02 299 250-425 (ug/dL) Final Transferrin Sat % 04/20/2024 13:58:02 18 15 -55 (%) Final Performing Location [facility] - [address] [place] [address]
--- OUTSIDE RECORDS SUMMARY | 2024-04-26 10:49 | External Medical Summary | Summary of Care ---
Author Name Unknown Organization [facility] Address [address] [place] [address] Phone [phone] Care Team Providers Care Microbiology Manager Name Role Phone Jairo Kingston MD Primary Care Provider [phone]- [phone] Reason for Visit * Reason Comments Outpatient Testing Encounter Details Date Type Department Care Team (Late st Contact Info) Description 04/12/2024 12:30 PM EST Laboratory Laboratory [facility] [address] [place] [address] [facility] [address] [place] [address] COPD, group D, by GOLD 2017 classification (HCC); Moderate persistent asthma without complication Allergies Active Allergy Reactions Criticality Noted Date Comments Pavan Inhibitors Other (Please comment) 0 Hyperkalemia documented as of this encounter (statuses as of 04/12/2024) Medications oxygen GAS Use 3 L/min(Oxygen) as [...] 0.1 % Nasal Solution (Astelin) Administer 1 [place] into nostril in the morning and 1 [place] before bedtime. 30 mL 1 01/12/20 23 [...] Oral Tablet (Eliquis)Indication s:Recurrent cerebrovascular accidents (CVAs) ([facility]) Take 1 Tablet by mouth in the morning and 1 Tablet before bedtime. 60 Tablet 11 4 11:16 AM EST 01/30/20 24 Active Docusate Sodium 100 MG Oral Capsule (Colace) Take 1 Capsule by mouth in the morning and 1 Capsule before bedtime. 180 Capsule 3 03/12/20 24 Active Albuterol Sulfate HFA 108 (90 Base) MCG/ACT Inhalation Aerosol Solution Inhale by mouth. 54 g 6 03/12/20 24 Active Doxycycline Hyclate 100 MG Oral TabletIndications:C OPD, group D, by GOLD 2017 classification ([facility]) Take 1 Tablet by mouth in the morning and 1 Tablet before bedtime. Do all this for 10 days. As needed Rescue kit use when directed to take for COPD exacerbation. 20 Tablet 4 4 8:28 AM EST 04/03/20 24 024 Active predniSONE 20 MG Oral Tablet (Deltasone)Indicati ons:COPD, group D, by GOLD 2017 classification ([facility]) Take 2 Tablets by mouth in the morning for 5 days. USE NEEDED FOR EXACERBATION. COPD RESCUE KIT. 10 Tablet 4 4 1:11 PM EST 04/03/20 24 024 Active Hospital, Clinic, or Other Facility Administered Medication Ordered Dose Route Frequency Start Date End Date Status Albuterol Sulfate (Proventil) (2.5 MG/3ML) 0.083% inhalation solution 2.5 mgIndications:COPD, group D, by GOLD 2017 classification ([facility]) 2.5 mg NEBULIZER PRN 10/03/2023 10/02/2024 Acti ve documented as of this encounter (statuses as of 04/12/2024) Active Problems Problem Noted Date Diagnosed Date [...] Wheezing Medication Regimen Class D - Inhaled Xyjpthxrrvqrrm-RLWS-[id number] Combination Inhaler (Trellegy) Remote Patient Monitoring Vendor: [...] & Plan (11/11/2022 9:15 PM EDT): Allopurinol group home No new attacks GINNY on CPAP [...] as of this encounter (statuses as of 04/12/2024) Resolved Problems Problem Noted Date Diagnosed Date [...] as of this encounter (statuses as of 04/12/2024) Immunizations Name Administration Dates Next Due COVID-19 [...] 2:00 PM EST Hem/Onc Treatment Hematology[facility], [place] [address] [facility] [phone] Hannah Chair 9 Hem Onc [facility] [address] 04/24/2024 6:00 PM EST [facility] [address] [phone] Jairo Kingston MD [address] [address] 05/04/2024 2:30 PM EST Home Visit [facility] [address] [facility] [place] [address] Jenifer Linder RN [address] [place] [address] 05/28/2024 11:00 AM EST Home Visit [facility] [address] [facility] [place] [address] Heath Zhang PA-C [address] [place] [address] 06/14/2024 3:20 PM EST Office Visit Pulmonary Medicine, [facility] [address] [facility] [place] [address] Devin Hodge MD [facility] [place] [address] 06/27/2024 3:00 PM EDT Office Visit Hematology/Oncology [facility] [address] [facility] [place] [phone] Michael Snyder MD [address] [facility] [place] [address] 07/30/2024 11:40 AM EDT Office Visit [facility] [address] [facility] [place] [place] [phone] Shanika Fitzgerald DO [address] [facility] [place] [address] 07/30/2024 4:00 PM EDT Office Visit Nephrology, [facility] [address] [facility] [place] [address] Reggie Azevedo MD [address] [facility] [place] [address] Pending Results Name Type Priority Associated Diagnoses Date /Time [facility] IGE PROFILE Lab Routine COPD, group D, by GOLD 2017 classification ([facility]) Moderate persistent asthma without complication 04/12/2024 12:46 PM EST IGE Lab Routine COPD, group D, by GOLD 2017 classification ([facility]) Moderate persistent asthma without complication 04/12/2024 12:46 PM EST Scheduled Procedures Name Priority Associated [...] this encounter Medical Devices Implanted Type Area Intelligence Operations Specialist Device Identifier Shelf Expiration Date Model / Serial / Lot Graft Hemasheild 20mm [id number] - [id number] Implanted:Qty: 1 on 01/13/2009 [place] [facility] [place] Abdomen MICROVASIVE [id number] / / [id number] Clip Resolution 360 Endo 235cm - [id number] Implanted:Qty: 1 on 12/10/2022 by Lacie England MD at OR [facility] [employer] : ENDOSCOPY [id number] 07/02/2025 [id number] / / [id number] Clip Resolution 360 Endo 235cm - [id number] Implanted:Qty: 1 on 12/10/2022 by Lacie England MD at OR [facility] [employer] : ENDOSCOPY [id number] 07/02/2025 [id number] / / [id number] Stent Biliary Adult L30mm Dia1 - [id number] Implanted:Qty: 1 on 10/26/2023 by Lacie England MD at OR [facility] COOK : JOHANNA COURTNEY [id number] 06/27/2026 [id number] / / [id number] documented as of this encounter Visit Diagnoses [...] COPD, group D, by GOLD 2017 classification ([facility]) Shaggy aorta syndrome (HCC) Atherosclerosis of aorta 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 Care Teams Microbiology Manager Relationship Specialty Start Date End Date Jairo Kingston MD PCP - General 12/21/05 documented as of this encounter
--- OUTSIDE RECORDS SUMMARY | 2024-04-26 10:49 | External Medical Summary ---
Author Name Unknown Address Unknown Organization K09:[facility] [place] [address] Laboratory Report Ordering Provider Test Date Status LOLLY ALEGRIA 04/20/2024 13:58:02 Final Observation Date Value Abnormality Reference (Units ) Status WBC, Total 04/20/2024 13:58:02 8.38 4.00-10.8 0 (K/uL) Final RBC 04/20/2024 13:58:02 4.00 4.50-5.25 (M/uL) Final Hemoglobin 04/20/2024 13:58:02 13.1 Below low normal 14 .0-16.8 (g/dL) Final HCT 04/20/2024 13:58:02 40.8 40.0-48.4 (%) Final MCV 04/20/2024 13:58:02 102.0 82.0-99.5 (fL) Final MCH 04/20/2024 13:58:02 32.8 27.0-34.0 (pg) Final MCHC 04/20/2024 13:58:02 32.1 32.0-36.0 (g/dL) Final RDW 04/20/2024 13:58:02 15.9 11.5-15.5 (%) Final Platelets 04/20/2024 13:58:02 194 140-400 (K /uL) Final MPV 04/20/2024 13:58:02 10.2 6.6-11.1 ( fL) Final Performing Location [facility] [place] [address]
--- OUTSIDE RECORDS SUMMARY | 2024-04-26 10:49 | External Medical Summary ---
Author Name Unknown Address Unknown Organization K09[facility] [place] [address] Laboratory Report Ordering Provider Test Date Status LOLLY ALEGRIA 04/20/2024 13:58:02 Final Observation Date Value Abnormality Reference (Units ) Status SYNC LEUKOCYTES IN BLOOD BY AUTOMATED COUNT 04/20/2024 13:58:02 8.38 4.00-10.80 (K/uL) Final Segs 04/20/2024 13:58:02 91.6 Above high normal 40.0-75.0 (%) Final Lymphs % 04/20/2024 13:58:02 5.5 Below low normal 18.0-42.0 (%) Final Monos 04/20/2024 13:58:02 2.1 1.0-11.0 (%) Final Eosinophils 04/20/2024 13:58:02 0.6 0.0-6.0 (%) Final Basos 04/20/2024 13:58:02 0.2 0.0-2.0 (%) Final Absolute Segs 04/20/2024 13:58:02 7.67 1.80-7.70 (K/uL) Final Lymphs, absolute 04/20/2024 13:58:02 0.46 Below low normal 1.00-4.80 (K/ul) Final Monos, Abs 04/20/2024 13:58:02 0.18 0.00-1.10 (K/uL) Final Eos, Abs 04/20/2024 13:58:02 0.05 0.00-0.70 (K/uL) Final Basos, Abs 04/20/2024 13:58:02 0.02 0.00-0.20 (K/uL) Final Performing Location [facility] [place] [address]
--- OUTSIDE RECORDS SUMMARY | 2024-04-26 10:49 | External Medical Summary ---
Author Name Unknown Address Unknown Organization K01[facility] [place] [facility] [address] [facility] [place] [address] Laboratory Report Ordering Provider Test Date Status ELIZA CALHOUN 04/12/2024 12:46:17 Final Observation Date Value Abnormality Reference (Units ) Status Dust Mite IgE, pteronyssinus 04/12/2024 12:46:17 <0.10 <0.10 (kUa/L) Final Dust Mite IgE, farinae 04/12/2024 12:46:17 <0.10 <0.10 (kUa/L) Final Cat Epithelium IgE 04/12/2024 12:46:17 <0.10 <0.10 (kUa/L) Final Dog Dander IgE 04/12/2024 12:46:17 <0.10 <0.10 (kUa/L) Final Bermuda grass IgE 04/12/2024 12:46:17 <0.10 <0.10 (kUa/L) Final Hal IgE 04/12/2024 12:46:17 <0.10 <0.10 (kUa/L) Final Penicillium notatum IgE 04/12/2024 12:46:17 <0.10 <0.10 (kUa/L) Final Cladosporium IgE 04/12/2024 12:46:17 <0.10 <0.10 (kUa/L) Final Aspergillus IgE 04/12/2024 12:46:17 <0.10 <0.10 (kUa/L) Final Alternaria IgE 04/12/2024 12:46:17 <0.10 <0.10 (kUa/L) Final Setomelanomma rostrata IgE Ab [Units/volume] in Serum 04/12/2024 12:46:17 <0.10 <0.10 (kUa/L) Final Pullularia IgE 04/12/2024 12:46:17 <0.10 <0.10 (kUa/L) Final Acremonium sp IgE Ab [Units/volume] in Serum 04/12/2024 12:46:17 <0.10 <0.10 (kUa/L) Final Maple IgE Ab [Units/volume] in Serum 04/12/2024 12:46:17 <0.10 <0.10 (kUa/L) Final Silver Birch IgE Ab [Units/volume] in Serum 04/12/2024 12:46:17 <0.10 <0.10 (kUa/L) Final [place] IgE 04/12/2024 12:46:17 <0.10 <0.10 (kUa/L) Final Elm IgE 04/12/2024 12:46:17 <0.10 <0.10 (kUa/L) Final [place] tree IgE 04/12/2024 12:46:17 <0.10 <0.10 (kUa/L) Final Ayden IgE 04/12/2024 12:46:17 <0.10 <0.10 (kUa/L) Final White Maxi IgE 04/12/2024 12:46:17 <0.10 <0.10 (kUa/L) Final Pecan or [place] Tree IgE 04/12/2024 12:46:17 <0.10 <0.10 (kUa/L) Final Common ragweed tatitlek (nAmb a) 1 IgE Ab [Units/volume] in Serum 04/12/2024 12:46:17 <0.10 <0.10 (kUa/L) Final Mugwort IgE 04/12/2024 12:46:17 <0.10 <0.10 (kUa/L) Final Plaintain (Libyan) IgE 04/12/2024 12:46:17 <0.10 <0.10 (kUa/L) Final Vieyra's Quarters IgE 04/12/2024 12:46:17 <0.10 <0.10 (kUa/L) Final Cocklebur IgE Ab [Units/volume] in Serum 04/12/2024 12:46:17 <0.10 <0.10 (kUa/L) Final Pigweed common IgE 04/12/2024 12:46:17 <0.10 <0.10 (kUa/L) Final Sheep sorrel IgE 04/12/2024 12:46:17 <0.10 <0.10 (kUa/L) Final
<0.10 kUa/L - Class 0 Allergen: Absence of Allergen Specific IgE
0.10-0.34 kUa/L - Class 0/1 Allergen: Low Level of Allergen Specific IgE
0.35-0.69 kUa/L - Class 1 Allergen: Low Level of Allergen Specific IgE
0.70-3.49 kUa/L - Class 2 Allergen: Moderate Level of Allergen Specific IgE
3.50-17.49 kUa/L - Class 3 Allergen: High Level of Allergen Specific IgE
17.5-49.99 kUa/L - Class 4 Allergen: Very High Level of Allergen Specific IgE
50.0-99.99 kUa/L - Class 5 Allergen: Very High Level of Allergen Specific IgE
>=100.0 kUa/L - Class 6 Allergen: Very High Level of Allergen Specific IgE Performing Location [facility] [place] [facility] [address] [facility] [address]
--- OUTSIDE RECORDS SUMMARY | 2024-04-26 10:50 | External Medical Summary | Summary of Care ---
Author Name Unknown Organization [facility] Address [address] [place] [address] Phone [phone] Care Team Providers Care Trade Clerk Name Role Phone Jairo Kingston MD Primary Care Provider [phone] Reason for Visit * Reason Comments IV Therapy Venofer Encounter Details Date Type Department Care Team (Latest Contact Info) Description 03/23/2024 2:00 PM EST Hem/Onc Treatment Hematology/Oncology Treatment, [address] [address] Hannah, Chair 7 Hem Onc [address] [address] Iron deficiency anemia due to chronic blood loss*; Anemia associated with chronic renal failure Allergies Active Allergy Reactions Criticality Noted Date Comments Pavan Inhibitors Other (Please comment) 0 Hyperkalemia documented as of this encounter (statuses as of 03/23/2024) Medications oxygen GAS Use 3 L/min(Oxygen) as [...] 0.1 % Nasal Solution (Astelin) Administer 1 [place] into nostril in the morning and 1 [place] before bedtime. 30 mL 1 01/12/20 23 [...] morning and 1 Tablet before bedtime. Active Furosemide 20 MG Oral Tablet (Lasix) TAKE 1 TABLET BY MOUTH twice DAILY 180 Tablet 1 4 11:16 AM EST 12/08/19 24 Active Metoprolol Tartrate 25 MG Oral Tablet (Lopressor) Take 1 Tablet by mouth in the morning and 1 Tablet before bedtime. 180 Tablet 3 12/22/19 24 Active Klor-Con M10 10 MEQ Oral Tablet Extended Release TAKE 1 TABLET BY MOUTH ONCE A DAY ON TUESDAY, TUESDAY, AND TUESDAY ONLY. 11/17/19 24 Active Fluticasone Propionate 50 MCG/ACT Nasal Suspension (Flonase) Administer 2 Sprays into nostril daily as needed for Allergies. 48 g 3 01/30/20 24 Active Apixaban 2.5 MG Oral Tablet (Eliquis)Indication s:Recurrent cerebrovascular accidents (CVAs) ([facility]) Take 1 Tablet by mouth in the morning and 1 Tablet before bedtime. 60 Tablet 11 4 11:16 AM EST 01/30/20 Active Docusate Sodium 100 MG Oral Capsule (Colace) Take 1 Capsule by mouth in the morning and 1 Capsule before bedtime. 180 Capsule 3 03/12/20 24 Active Doxycycline Hyclate 100 MG Oral TabletIndications:C OPD, group D, by GOLD 2017 classification ([facility]) Take 1 Tablet by mouth in the morning and 1 Tablet before bedtime. For 7 days. As needed Rescue kit use when directed to take for COPD exacerbation. 14 Tablet 03/12/20 24 Active predniSONE 20 MG Oral Tablet (Deltasone)Indicati ons:COPD, group D, by GOLD 2017 classification ([facility]) Take 2 Tablets by mouth in the morning. For 5 days. USE NEEDED FOR EXACERBATION. COPD RESCUE KIT. 10 Tablet 03/12/20 24 Active Albuterol Sulfate HFA 108 (90 Base) MCG/ACT Inhalation Aerosol Solution Inhale by mouth. 54 g 6 03/12/20 24 Active Hospital, Clinic, or Other Facility Administered Medication Ordered Dose Route Frequency Start Date End Date Status Albuterol Sulfate (Proventil) (2.5 MG/3ML) 0.083% inhalation solution 2.5 mgIndications:COPD, group D, by GOLD 2017 classification ([facility]) 2.5 mg NEBULIZER PRN 10/03/2023 10/02/2024 Acti ve documented as of this encounter (statuses as of 03/23/2024) Active Problems Problem Noted Date Diagnosed Date [...] Wheezing Medication Regimen Class D - Inhaled Gcnekjxdqubynu-KAQB-MIWT Combination Inhaler (Trellegy) Remote Patient Monitoring Vendor: [...] & Plan (11/11/2022 9:15 PM EDT): 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 (Household - for ages [...] Sign Reading Time Taken Comments Blood Pressure 170/84 03/23/2024 2:22 PM EST Pulse 71 03/23/2024 2:22 PM EST Temperature 36.5 C (97.7 F) 03/23/2024 2:22 PM ES T Respiratory Rate 16 03/23/2024 2:22 PM EST Oxygen Saturation 91% 03/23/2024 2:22 PM EST Inhaled Oxygen Concentration - - [...] of Assessment Author Yes 10/21/2023 6:05 PM EDAaron Degroot RN * Do you have difficulty dressing [...] Nursing Notes * Lisa Vides LPN - 03/23/2024 2:34 PM EST Patient arrived chair 9 for IV therapy Venofer. Vital signs are stable. IV access successful at theright antecubital vein; positive blood return; 2 vials lab drawn; IV line flushed with ease; IV fluids connected and infusing. Call riggins within reach. Patient instructed on use of heat and massage functions where applicable. Patient shown how to operate the heat function of the chair and to alert nursing staff if the chair feels too warm. Patient instructed on the risk of potential watson while using the heat function. 1605 Patient completed IV therapy Venofer. IV access discontinued; site cleaned and bandaged. Patient instructed to remove the Coban wrap as soon as he is home. Patient discharged in stable conditionand will return in 1 month. documented in this encounter Plan of Treatment Upcoming Encounters Date Type Department Care Team (Late st Contact Info) Description 03/28/2024 3:20 PM EST Office Visit [facility] [place] [facility] [address] [facility] [place] [phone] Shanika Fitzgerald DO [address] [place] [address] 04/02/2024 12:30 PM EST Home Visit [facility] [address] [place] [address] Jenifer Linder, RN [address] [place] [address] 04/03/2024 10:30 AM EST PulmDiagnostic Pulmonary Function Lab, [facility] [address] [place] [address] [place], [place]ft [address] [facility] [place] [address] 04/03/2024 1:40 PM EST Office Visit Pulmonary Medicine, [facility] [address] [place] [address] Devin Hodge MD [address] [place] [address] 04/20/2024 2:00 PM EST Hem/Onc Treatment Hematology/Oncology Treatment, [place] [address] [place], [place] [address] [place], Chair 9 Hem Onc [facility] [address] [facility] [place] [address] 04/24/2024 6:00 PM EST Office [facility] [address] [facility] [phone] Jairo Kingston MD [address] [facility] [place] [address] 05/28/2024 11:00 AM EST Home Visit ising at [facility] [address] [facility] [place] [address] Heath Zhang PA-C [address] [facility] [place] [address] 06/27/2024 3:00 PM EDT Office Visit Hematology/Oncology [facility] [place] [address] [facility] [place] [phone] Michael Snyder MD [address] [facility] [place] [address] 07/30/2024 4:00 PM EDT Office Visit Nephrology, [facility] [address] [place] [address] Reggie Azevedo MD [address] [facility] [place] [address] Pending Results Name Type Priority Associated Diagnoses Date /Time FERRITIN Lab STAT Iron deficiency anemia due to chronic blood loss 03/23/2024 1:52 PM EST IRON SCREEN, INCLUDING TIBC Lab STAT Iron deficiency anemia due to chronic blood loss 03/23/2024 1:52 PM EST Scheduled Procedures Name Priority Associated [...] this encounter Medical Devices Implanted Type Area Sterilization Tech Device Identifier Shelf Expiration Date Model / Serial / Lot Graft Hemasheild 20mm [id number] - [id number] Implanted:Qty: 1 on 01/13/2009 at OR [facility] N/A: Abdomen MICROVASIVE [id number] / / [id number] Clip Resolution 360 Endo 235cm - [id number] Implanted:Qty: 1 on 12/10/2022 by Lacie England MD at OR [facility] [employer] : ENDOSCOPY [id number] 07/02/2025 [id number] / / [id number] Clip Resolution 360 Endo 235cm - [id number] Implanted:Qty: 1 on 12/10/2022 by Lacie England MD at OR [facility] [employer] : ENDOSCOPY [id number] 07/02/2025 [id number] / / [id number] Stent Biliary Adult L30mm Dia1 - [id number] Implanted:Qty: 1 on 10/26/2023 by Lacie England MD at OR [facility] COOK : JOHANNA ROZ [id number] 06/27/2026 [id number] / / [id number] documented as of this encounter Procedures Procedure Name Priority Date/Time Associated Diagnosis Comments DIFFERENTIAL, AUTOMATED STAT 03/23/2024 1:52 PM EST Iron deficiency anemia due to chronic blood loss COMPREHENSIVE METABOLIC PANEL STAT 03/23/2024 1:52 PM EST Iron deficiency anemia due to chronic blood loss Anemia associated with chronic renal failure CBC STAT 03/23/2024 1:52 PM EST Iron deficiency anemia due to chronic blood loss CBC STAT 03/23/2024 1:52 PM EST Iron deficiency anemia due to chronic blood loss documented in this encounter Results * (ABNORMAL) COMPREHENSIVE METABOLIC PANEL (03/23/2024 1:52 PM EST) BUN 46(H) 6 - 20 mg/dL 03/23/2024 3:31 PM [facility] CREATININE 2.1(H) 0.6 - 1.2 mg/dL 03/23/2024 3:31 PM [place] [address] EGFR 33(L) >=60 mL/min 03/23/2024 3:31 PM [facility] 56[facility] Comment:eGFR is calculated b ased on the CKD-EPI 2020 equation. SODIUM 139 135 - 146 mmol/L 03/23/2024 3:31 PM [place] [address] POTASSIUM 4.4 3.5 - 5.1 mmol/L 03/23/2024 3:31 PM [place] [address] CHLORIDE 104 98 - 107 mmol/L 03/23/2024 3:31 PM [place] [address] CO2 23 22 - 32 mmol/L 03/23/2024 3:31 PM [place] [address] ANION GAP 12 7 - 15 mmol/L 03/23/2024 3:31 PM [place] [address] GLUCOSE 92 70 - 120 mg/dL 03/23/2024 3:31 PM [place] [address] Albumin 4.1 3.8 - 5.0 g/dL 03/23/2024 3:[address] AST 17 10 - 50 U/L 03/23/2024 3:31 PM [place] [address] Alkaline Phosphatase 96 35 - 130 U/L 03/23/2024 3:31 PM [place] [address] Bilirubin, Total 0.3 <=1.2 mg/dL 03/23/2024 3:31 PM [place] [address] CALCIUM 9.5 8.4 - 10.2 mg/dL 03/23/2024 3:31 PM [place] [address] Protein 7.5 6.0 - 8.3 g/dL 03/23/2024 3:[address] ALT 12 10 - 50 U/L 03/23/2024 3:31 PM [facility] Blood Venous blood specimen / Unknown Venipuncture / Unknown 03/23/2024 1:52 PM EST 03/23/2024 2:30 PM EST Sheri [facility] BLOOD ORDERABLES Fi nal Result [facility] [address] [place] [address] * (ABNORMAL) DIFFERENTIAL, AUTOMATED (03/23/2024 1:52 PM EST) WBC 7.69 4.00 - 10.80 K/uL 03/23/2024 2:33 PM EST [facility] 56-02 Neutrophils % 62.1 40.0 - 75.0 % 03/23/2024 2:33 PM EST [facility] 56-02 Lymphocytes % 15.2(L) 18.0 - 42.0 % 03/23/2024 2:33 PM EST [facility] 56-02 Monocytes % 10.9 1.0 - 11.0 % 03/23/2024 2:33 PM EST [facility] 56- Eosinophils % 11.3(H) 0.0 - 6.0 % 03/23/2024 2:33 PM EST [facility] 56-02 Basophils % 0.5 0.0 - 2.0 % 03/23/2024 2:33 PM EST [facility] 56-02 Absolute Neutrophils 4.77 1.80 - 7.70 K/uL 03/23/2024 2:33 PM EST [facility] 56-02 Absolute Lymphocytes 1.17 1.00 - 4.80 K/ul 03/23/2024 2:33 PM EST [facility] 56-02 Absolute Monocytes 0.84 0.00 - 1.10 K/uL 03/23/2024 2:33 PM EST [facility] 56-02 Absolute Eosinophils 0.87(H) 0.00 - 0.70 K/uL 03/23/2024 2:33 PM EST [facility] 56-02 Absolute Basophils 0.04 0.00 - 0.20 K/uL 03/23/2024 2:33 PM EST [facility] 56-02 Blood Venous blood specimen / Unknown Venipuncture / Unknown 03/23/2024 1:52 PM EST 03/23/2024 2:30 PM EST Sheri [facility] LAB BLOOD ORDERABLES Fi nal Result [facility] [address] [facility], [place] [id number] * (ABNORMAL) CBC (03/23/2024 1:52 PM EST) WBC 7.69 4.00 - 10.80 K/uL 03/23/2024 2:33 PM EST [facility] 56 RBC 3.88 4.50 - 5.25 M/uL 03/23/2024 2:33 PM EST [facility] 56 HGB 12.6(L) 14.0 - 16.8 g/dL 03/23/2024 2:33 PM EST [facility] 56 HCT 40.1 40.0 - 48.4 % 03/23/2024 2:33 PM EST [facility] 56 MCV 103.4 82.0 - 99.5 fL 03/23/2024 2:33 PM EST [facility] 56 MCH 32.5 27.0 - 34.0 pg 03/23/2024 2:33 PM EST [facility] 56 MCHC 31.4 32.0 - 36.0 g/dL 03/23/2024 2:33 PM EST [facility] 56 RDW 16.5 11.5 - 15.5 % 03/23/2024 2:33 PM EST [facility] 56 PLT 212 140 - 400 K/uL 03/23/2024 2:33 PM EST [facility] 56 MPV 9.6 6.6 - 11.1 fL 03/23/2024 2:33 PM EST [facility] 5602 Blood Venous blood specimen / Unknown Venipuncture / Unknown 03/23/2024 1:52 PM EST 03/23/2024 2:30 PM EST Sheri Moorekevin [facility] BLOOD ORDERABLES Fi nal Result [facility] 56 [address] [facility] [place] [id number] documented in this encounter Visit Diagnoses Diagnosis [...] 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 (chronic) Anemia associated with chronic renal failure Anemia in chronic kidney disease documented in this encounter Administered Medications Active Administered Medications - up to 3 most recent administrations Medication Order MAR Action Action Date Dose Rate Site diphenhydrAMINE (Benadryl) inj 50 mg 50 mg, IV Push, ONCE PRN Other, Hypersensitivity Reaction, Starting on Tue03/23/24 at 1351, Until 03/24/24 at 1350, For 24 hoursIndications:Iron deficiency anemia due to chronic blood loss EPINEPHrine 1 MG/ML inj 0.3 mg 0.3 mg, Intramuscular, ONCE PRN Other, Hypersensitivity Reaction or Anaphylaxis, Starting on Tue03/23/24 at 1351, Until 03/24/24 at 1350, For 24 hoursIndications:Iron deficiency anemia due to chronic blood loss hEParin 100 UNIT/ML Lock Flush inj 500 Units 500 Units (5 mL), IV Lock, PRN Other, IV Flush, Starting on Tue03/23/24 at 1351, Until 03/24/24 at 1350, For 24 hours, Do not flush if lock, PICC, or central line not in place; IV infusing or unable to flush.Indications:Iron deficiency anemia due to chronic blood loss Hydrocortisone Sod Suc (PF) (Solu-Cortef) inj 100 mg 100 mg, IV Push, ONCE PRN Other, Hypersensitivity Reaction, Starting on Tue03/23/24 at 1351, Until 03/24/24 at 1350, For 24 hoursIndications:Iron deficiency anemia due to chronic blood loss NSS infusion 500 mL, Intravenous, at 50 mL/hr, CONTINUOUS, Starting on Tue03/23/24 at 1500, Until 03/24/24 at 0059Indications:Iron deficiency anemia due to chronic blood loss Start Infusion 03/23/2024 2:27 PM EST 500 mL 50 mL/hr oxygen GAS Inhalation, OXYGEN, First dose on Tue03/23/24 at 1600, Until Discontinued, Device/Managed by: Low [...] Push, PRN Other, IV Flush, Starting on Tue03/23/24 at 1351, Until 03/24/24 at 1350, For 24 hours, Do not flush if [...] mg, IV Piggyback, ONCE, 1 dose, On Tue03/23/24 at 1530, Administer over 90 MinutesIndications:Iron deficiency anemia due to chronic blood loss Start Infusion 03/23/2024 2:29 PM EST 300 mg 180 mL/hr documented in this encounter Advance Directives Documents on File Type Date Recorded Patient Child Psychiatrist Expl anation Power of Adjudication Specialist 07/30/2022 POWER OF A TTORNEY * Full [...] and were consensually agreed upon. Care Teams Trade Clerk Relationship Specialty Start Date End Date Jairo Kingston MD [address] [facility] [place] [address] PCP - General 12/21/05 documented as of this encounter
--- OUTSIDE RECORDS SUMMARY | 2024-04-26 10:50 | External Medical Summary | Summary of Care ---
Author Name Unknown Organization [facility] Address [address] [place] [address] Phone [phone] Care Team Providers Care Field Research Associate Name Role Phone Jairo Kingston MD Primary Care Provider [phone]- [phone] Encounter Details Date Type Department Care Team (Late st Contact Info) Description 04/02/2024 12:30 PM EST [facility] Visit [facility] [facility], [facility] [place] [address] Jenifer Linder, RN [address] [place] [address] Allergies Active Allergy Reactions Criticality Noted Date Comments Pavan Inhibitors Other (Please comment) 0 Hyperkalemia documented as of this encounter (statuses as of 04/02/2024) Medications oxygen GAS Use 3 L/min(Oxygen) as directed at bedtime. Use 2-3 l/min continuously to keep pulse ox above 90% Active CVS D3 50 MCG (1999) Oral Capsule (Cholecalciferol)I ndications:Vitamin D deficiency TAKE [...] 0.1 % Nasal Solution (Astelin) Administer 1 [place] into nostril in the morning and 1 [place] before bedtime. 30 mL 1 01/12/20 23 Active Ezetimibe 10 MG Oral Tablet (Zetia)Indications :Dyslipidemia, goal LDL below 70 TAKE ONE TABLET BY MOUTH EVERY MORNING 90 Tablet 3 4 2:37 PM EDT 02/05/20 23 024 Active Pantoprazole Sodium 40 MG Oral Tablet Delayed Release (Protonix) Take 1 Tablet by mouth in the morning and 1 Tablet before bedtime. 180 Tablet 3 04/20/19 24 Active Allopurinol 300 MG Oral Tablet (Zyloprim)Indicati ons:Gout TAKE ONE-HALF TABLET BY MOUTH EVERY DAY 45 Tablet 2 4 1:40 PM EDT 06/01/19 24 025 Active Ipratropium-Albute rol 0.5-2.5 (3) MG/3ML Inhalation [...] 24 Active Apixaban 2.5 MG Oral Tablet (Eliquis)Indicatio ns:Recurrent cerebrovascular accidents (CVAs) ([facility]) Take 1 Tablet by mouth in the morning and 1 Tablet before bedtime. 60 Tablet 11 4 11:16 AM EST 01/30/20 24 Active Docusate Sodium 100 MG Oral Capsule (Colace) Take 1 Capsule by mouth in the morning and 1 Capsule before bedtime. 180 Capsule 3 03/12/20 24 Active Doxycycline Hyclate 100 MG Oral TabletIndications: COPD, group D, by GOLD 2017 classification ([facility]) Take 1 Tablet by mouth in the morning and 1 Tablet before bedtime. For 7 days. As needed Rescue kit use when directed to take for COPD exacerbation. 14 Tablet 03/12/20 24 Active predniSONE 20 MG Oral Tablet (Deltasone)Indicat ions:COPD, group D, by GOLD 2017 classification ([facility]) Take 2 Tablets by mouth in the morning. For 5 days. USE NEEDED FOR EXACERBATION. COPD RESCUE KIT. 10 Tablet 03/12/20 24 Active Albuterol Sulfate HFA 108 (90 Base) MCG/ACT Inhalation Aerosol Solution Inhale by mouth. 54 g 6 03/12/20 24 Active Klor-Con M10 10 MEQ Oral Tablet Extended Release TAKE 1 TABLET BY MOUTH ONCE A DAY ON TUESDAY, TUESDAY, AND TUESDAY ONLY. 11/17/19 24 024 Discontin ued(Medic ation List Clean Up) Hospital, Clinic, or Other Facility Administered Medication Ordered Dose Route Frequency Start Date End Date Status Albuterol Sulfate (Proventil) (2.5 MG/3ML) 0.083% inhalation solution 2.5 mgIndications:COPD, group D, by GOLD 2017 classification ([facility]) 2.5 mg NEBULIZER PRN 10/03/2023 10/02/2024 Acti ve documented as of this encounter (statuses as of 04/02/2024) Active Problems Problem Noted Date Diagnosed Date [...] Wheezing Medication Regimen Class D - Inhaled Miikhwqheufkva-LIJZ-PYJB Combination Inhaler (Cameronllegy) Remote Patient Monitoring Vendor: No Connected RPM [...] Assessment & Plan (11/11/2022 9:14 PM EDT): Norisaiahc, lopressor History of supraventricular tachycardia 11/12/19 Idiopathic chronic gout of foot without tophus 0 11/11/2022 Assessment & Plan (11/11/2022 9:15 PM EDT): Allopurinol intermediate No new attacks GINNY on [...] as of this encounter (statuses as of 04/02/2024) Resolved Problems Problem Noted Date Diagnosed Date [...] as of this encounter (statuses as of 04/02/2024) Immunizations Name Administration Dates Next Due COVID-19 [...] Sign Reading Time Taken Comments Blood Pressure 128/80 04/02/2024 12:33 PM EST Pulse 67 04/02/2024 12:33 PM EST Temperature 36.8 C (98.2 F) 04/02/2024 12:[address] Respiratory Rate 18 04/02/2024 12:33 PM EST Oxygen Saturation 94% 04/02/2024 12:33 PM EST Inhaled Oxygen Concentration - - [...] of Assessment Author No 10/21/2023 6:05 PM FERT Aaron House RN * Because of a [...] Aaron Nevarez RN documented in this encounter Progress Notes * Jenifer Linder RN - 04/02/2024 12:10 PM EST Current Concerns: Pt reports he is feeling pretty good today Did have to use rescue kit last Tuesday Refill needed - TE sent to provider Pt has been using rescue kit more frequently He reports it works well but notices he has needed it more often He is going for PFT tomorrow and f/u with pulmonology Denies concerns at this time Wears Life alert and has a home caregiver for Ann He reports this has been working out well Physical Exam: Physical Exam Constitutional: General: He is not in acute distress. Cardiovascular: Rate and Rhythm: Normal rate and regular rhythm. Pulses: Normal pulses. Heart sounds: Normal heart sounds. Pulmonary: Effort: Pulmonary effort is normal. Abdominal: Palpations: Abdomen is soft. Musculoskeletal: Right lower leg: Edema (trace) present. Left lower leg: Edema (trace) present. Skin: General: Skin is warm and dry. Neurological: Mental Status: He is alert. Review of Systems: Review of Systems Constitutional: Negative. HENT: Negative. Respiratory: Positive for shortness of breath (CAMARENA - at baseline). Negative for cough (chronic, worse in am, at baseline). Cardiovascular: Positive for leg swelling. Gastrointestinal: Negative. Genitourinary: Negative. Musculoskeletal: Negative. Skin: Negative. Neurological: Negative. Psychiatric/Behavioral: Negative. Care Plan Goal Progress: Patient will have improved cardiac output. (Progressing) Start: 01/18/24 Expected End: 05/18/24 GS - Patient/caregiver will verbalize an understanding of diagnosis, treatment and self management of chronic obstructive pulmonary disease (COPD) (Progressing) Start: 01/18/24 Expected End: 06/14/24 GS - Patient/caregiver will verbalize strategies to prevent COPD exacerbation. (Progressing) Start: 01/18/24 Expected End: 06/14/24 Orders Placed: No orders of the defined types were placed in this encounter. Medications Given: Care Gaps: Care Gaps Care gaps closed this contact: Education;Medications;Plan of Care (POC) (04/02/24 8576) Type of education: Clinical/disease (04/02/24 9533) Type of medication care gap: Medication adherence (04/02/24 8508) Type of plan of care (POC) care gap: Adjustment of plan of care (POC) and/or Integrated Care Plan (ICP);Education and review of exacerbation plan (04/02/24 2786) documented in this encounter Plan of Treatment Upcoming Encounters Date Type Department Care Team (Late st Contact Info) Description 04/03/2024 10:30 AM EST PulmDiagnostic Pulmonary Function Lab, [facility] [address] [facility] [place] [address] [address] [facility] [place] [address] 04/03/2024 1:40 PM EST Office Visit Pulmonary Medicine, [facility] [address] [facility] [place] [address] Devin Hodge [facility] [address] [facility] [address] 04/20/2024 2:00 PM EST Hem/Onc Treatment Hematology/Oncology Treatment, [place] [address] [place] [phone] Hannah, Chair 9 Hem Onc Scenery 200 [place] [address] 04/24/2024 6:00 PM EST Office Visit [facility] [address] [place] [phone] Jairo Kingston MD [address] [place] [address] 05/04/2024 2:30 PM EST Home Visit [place] [facility] [place], [facility] [address] [place] [address] Jenifer Linder RN [address] [facility] [place] [address] 05/28/2024 11:00 AM EST Home Visit [place] [facility] [place], [facility] [address] [facility] [place] [address] Heath Zhang PA-C [address] [place] [address] 06/27/2024 3:00 PM EDT Office Visit Hematology/Oncology [facility] [place] [address] [facility] [place] [phone] Michael Snyder MD [address] [facility] [place] [address] 07/30/2024 11:40 AM EDT Office Visit [facility] [address] [facility] [place] [phone] Shanika Fitzgerald DO [address] [place] [address] 07/30/2024 4:00 PM EDT Office Visit Nephrology, [facility] [place] [address] Reggie Azevedo MD [address] [facility] [place] [address] Scheduled Procedures Name Priority Associated Diagnoses Date/Ti [...] 10/19/2023, Additional history exists Hgb 03/23/2025 03/23/2024, 110 11/2023, 01/27/2024, Additional history exists Colonoscopy 01/02/2026 [...] this encounter Medical Devices Implanted Type Area Band Log Mill And Carriage Operator Device Identifier Shelf Expiration Date Model / Serial / Lot Graft Hemasheild 20mm [id number] - [id number] Implanted:Qty: 1 on 01/13/2009 at OR [facility] N/A: Abdomen MICROVASIVE [id number] / / [id number] Clip Resolution 360 Endo 235cm - [id number] Implanted:Qty: 1 on 12/10/2022 by Lacie England MD at OR [facility] : ENDOSCOPY [id number] 07/02/2025 [id number] / / [id number] Clip Resolution 360 Endo 235cm - [id number] Implanted:Qty: 1 on 12/10/2022 by Lacie England MD at OR [facility] : ENDOSCOPY [id number] 07/02/2025 [id number] / / [id number] Stent Biliary Adult L30mm Dia1 - [id number] Implanted:Qty: 1 on 10/26/2023 by Lacie England MD at OR [facility] COOK : JOHANNA COURTNEY [id number] 06/27/2026 [id number] / / [id number] documented as of this encounter Advance Directives Documents on File Type Date Recorded Patient Food Service Substitute Expl anation Power of Auto Parts Professional 07/30/2022 POWER OF A TTORNEY * Full [...] and were consensually agreed upon. Care Teams Field Research Associate Relationship Specialty Start Date End Date Jairo Kingston MD [address] [place] [address] PCP - General 12/21/05 documented as of this encounter
--- OUTSIDE RECORDS SUMMARY | 2024-04-26 10:50 | External Medical Summary ---
Author Name Unknown Address Unknown Organization K01:[facility] - [address] [place] [address] Laboratory Report Ordering Provider Test Date Status LOLLY ALEGRIA 03/23/2024 13:52:40 Final Observation Date Value Abnormality Reference (Units ) Status Iron 03/23/2024 13:52:40 50 45-176 (ug /dL) Final Iron-binding capacity 03/23/2024 13:52:40 272 250-425 (ug/dL) Final Transferrin Sat % 03/23/2024 13:52:40 18 15 -55 (%) Final Performing Location [facility] - [address] [place] [address]
--- OUTSIDE RECORDS SUMMARY | 2024-04-26 10:50 | External Medical Summary | Summary of Care ---
Author Name Unknown Organization [facility] Address [address] [place] [address] Phone [phone] Care Team Providers Care Grade Tamper Name Role Phone Jairo Kingston MD Primary Care Provider [phone]- [phone] Reason for Visit * Reason Onset Date Comments Medication Refill 04/02/2024 Encounter Details Date Type Department Care Team (Late st Contact Info) Description 04/02/2024 Refill [facility], [place] [address] [place] [address] Jenifer Linder, RN [address] [place] [address] COPD, group D, by GOLD 2017 classification ([facility]) Allergies Active Allergy Reactions Criticality Noted Date [...] 0.1 % Nasal Solution (Astelin) Administer 1 [place] into nostril in the morning and 1 [place] before bedtime. 30 mL 1 01/12/20 23 [...] Oral Tablet (Eliquis)Indicatio ns:Recurrent cerebrovascular accidents (CVAs) ([facility]) Take 1 Tablet by mouth in the [...] ions:COPD, group D, by GOLD 2017 classification ([facility]) Take 2 Tablets by mouth in the morning. For 5 days. USE NEEDED FOR EXACERBATION. COPD RESCUE KIT. 10 Tablet 04/03/20 24 Active Doxycycline Hyclate 100 MG Oral TabletIndications: COPD, group D, by GOLD 2017 classification ([facility]) Take 1 Tablet by mouth in the morning and 1 Tablet before bedtime. For 7 days. As needed Rescue kit use when directed to take for COPD exacerbation. 14 Tablet 04/03/20 24 Active Doxycycline Hyclate 100 MG Oral TabletIndications: COPD, group D, by GOLD 2017 classification ([facility]) Take 1 Tablet by mouth in the morning and 1 Tablet before bedtime. For 7 days. As needed Rescue kit use when directed to take for COPD exacerbation. 14 Tablet 03/12/20 24 024 Discontin ued(Refil l) predniSONE 20 MG Oral Tablet (Deltasone)Indicat ions:COPD, group D, by GOLD 2017 classification ([facility]) Take 2 Tablets by mouth in the morning. For 5 days. USE NEEDED FOR EXACERBATION. COPD RESCUE KIT. 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 For 5 days. USE NEEDED FOR EXACERBATION. COPD RESCUE KIT. Authorizing Provider: LACIE RODRIGUEZ Doxycycline Hyclate 100 MG Oral Tablet 14 Tab*0 Sig: Take 1 Tablet by mouth in the morning and 1 Tablet before bedtime. For 7 days. As needed Rescue kit use when directed to take for COPD exacerbation. Authorizing Provider: LACIE RODRIGUEZ * Telephone Encounter - Jenifer Linder RN - 04/02/2024 12:12 PM EST Pt in need of refill of COPD rescue kit Used his last week Please send to [facility] Thank you! documented in this encounter Plan of Treatment Upcoming Encounters Date Type Department Care Team (Late st Contact Info) Description 04/03/2024 10:30 AM EST PulmDiagnostic Pulmonary Function Lab, [facility] [address] [facility] [place] [address] [place], [address] [address] [facility] [place] [address] 04/03/2024 1:40 PM EST Office Visit Pulmonary Medicine, [facility] [address] [place] [address] Devin Hodge MD [address] [place] [address] 04/20/2024 2:00 PM EST Hem/Onc Treatment Hematology/Oncology Treatment, [place] [address] [facility] [phone] Hannah, Chair 9 Hem On[address] [address] 04/24/2024 6:00 PM EST Office Visit [facility], [facility] [address] [facility] [place] [place] [phone] Jairo Kingston MD [address] [place] [address] 05/04/2024 2:30 PM EST [facility], [facility] [address] [facility] [place] [address] Jenifer Linder RN [address] [facility] [place] [address] 05/28/2024 11:00 AM EST [facility] Visit [facility], [facility] [address] [facility] [place] [address] Lacie Rodriguez PA-C [address] [place] [address] 06/27/2024 3:00 PM EDT Office Visit Hematology/Oncology [facility] [address] [place] [phone] Michael Snyder MD 200 [facility] [place] [address] 07/30/2024 11:40 AM EDT Office Visit [facility] Disorders Ctr [facility] [address] [facility] [place] [phone] Shanika Fitzgerald DO [address] [facility] [place] [address] 07/30/2024 4:00 PM EDT Office Visit Nephrology, [facility] [address] [place] [address] Reggie Azevedo MD [address] [facility] [place] [address] Scheduled Procedures Name Priority Associated Diagnoses Date/Ti [...] this encounter Medical Devices Implanted Type Area Battery Assembler Plastic Device Identifier Shelf Expiration Date Model / Serial / Lot Graft Hemasheild 20mm [id number] - [id number] Implanted:Qty: 1 on 01/13/2009 [place] [facility] [place]A: Abdomen MICROVASIVE [id number] / / [id number] Clip Resolution 360 Endo 235cm - [id number] Implanted:Qty: 1 on 12/10/2022 by Lacie England MD at OR [facility] [employer] : ENDOSCOPY [id number] 07/02/2025 [id number] / / [id number] Clip Resolution 360 Endo 235cm - [id number] Implanted:Qty: 1 on 12/10/2022 by Lacie England MD at OR [facility] : ENDOSCOPY [id number] 07/02/2025 [id number] / / [id number] Stent Biliary Adult L30mm Dia1 - [id number] Implanted:Qty: 1 on 10/26/2023 by Lacie England MD at OR [facility] COOK : JOHANNA ROZ [id number] 06/27/2026 [id number] / / [id number] documented as of this encounter Visit Diagnoses [...] COPD, group D, by GOLD 2017 classification ([facility]) Shaggy aorta syndrome (HCC) Atherosclerosis of aorta 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 Care Teams Grade Tamper Relationship Specialty Start Date End Date Jairo Kingston MD [address] [facility] [place] [address] PCP - General 12/21/05 documented as of this encounter
--- OUTSIDE RECORDS SUMMARY | 2024-04-26 10:50 | External Medical Summary | Summary of Care ---
Author Name Unknown Organization [facility] Address [address] [address] Phone [phone] Care Team Providers Care Equipment Maintenance Supervisor Name Role Phone Jairo Kingston MD Primary Care Provider [phone] Encounter Details Date Type Department Care Team (Late st Contact Info) Description 03/12/2024 11:00 AM EST Home Visit [facility], [facility] [address] [place] [address] Heath Zhang PA-C [address] [place] [address] Chronic hypoxic respiratory failure, on home oxygen therapy (HCC)*; COPD, group D, by GOLD 2017 classification (HCC); Shaggy aorta syndrome (HCC); 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 30 mL 1 01/12/20 23 [...] Oral Tablet (Eliquis)Indicatio ns:Recurrent cerebrovascular accidents (CVAs) ([facility]) Take 1 Tablet by mouth [...] COPD, group D, by GOLD 2017 classification ([facility]) Take 1 Tablet by mouth in the morning and 1 Tablet before bedtime. For 7 days. As needed Rescue kit use when directed to take for COPD exacerbation. 14 Tablet 03/12/20 24 Active predniSONE 20 MG Oral Tablet (Deltasone)Indicat ions:COPD, group D, by GOLD 2017 classification ([facility]) Take 2 Tablets by mouth in the morning. For 5 days. USE NEEDED FOR EXACERBATION. COPD RESCUE KIT. 10 Tablet 03/12/20 24 Active Docusate Sodium 100 MG Oral Capsule (Colace) Take 1 Capsule by mouth 2 times a day as needed for Constipation. 180 Capsule 3 04/20/19 24 024 Discontin ued(Refil l) Doxycycline Hyclate 100 MG Oral TabletIndications: COPD, group D, by GOLD 2017 classification ([facility]) Take 1 Tablet by mouth in the morning and 1 Tablet before bedtime. For 7 days. As needed Rescue kit use when directed to take for COPD exacerbation. 14 Tablet 02/27/20 24 024 Discontin ued(Refil l) predniSONE 20 MG Oral Tablet (Deltasone)Indicat ions:COPD, group D, by GOLD 2017 classification ([facility]) Take 2 Tablets by mouth in the morning. For 5 days. USE NEEDED FOR EXACERBATION. COPD RESCUE KIT. 10 Tablet 02/27/20 024 Discontin ued(Refil l) Hospital, Clinic, or Other Facility Administered Medication Ordered Dose Route Frequency Start Date End Date Status Albuterol Sulfate (Proventil) (2.5 MG/3ML) 0.083% inhalation solution 2.5 mgIndications:COPD, group D, by GOLD 2017 classification ([facility]) 2.5 mg NEBULIZER PRN 10/03/2023 10/02/2024 Acti ve documented as of this encounter (statuses as of 03/14/2024) Active Problems Problem Noted Date Diagnosed Date [...] Wheezing Medication Regimen Class D - Inhaled Gyleilfniszpvt-SXMY-ZLYM Combination Inhaler (Trellegy) Remote Patient Monitoring Vendor: [...] needed History of central retinal artery occlusion 04/0 07/2023 Chronic kidney disease, stage 4 (severe) [...] Norvasc, lopressor History of supraventricular tachycardia 11/12/19 23 Idiopathic chronic gout of foot without tophus 0 11/11/2022 Assessment & Plan (11/11/2022 9:15 PM EDT): Allopurinol mcc No new attacks GINNY on CPAP 11/11/2022 [...] as of this encounter (statuses as of 03/14/2024) Resolved Problems Problem Noted Date Diagnosed Date [...] as of this encounter (statuses as of 03/14/2024) Immunizations Name Administration Dates Next Due COVID-19 [...] Sign Reading Time Taken Comments Blood Pressure 150/86 03/12/2024 12:34 PM EST Pulse 72 03/12/2024 12:34 PM EST Temperature - - Respiratory Rate - - Oxygen Saturation 95% 03/12/2024 12:34 PM EST Inhaled Oxygen Concentration - - [...] documented in this encounter Progress Notes * Heath Zhang PA-C - 03/12/2024 12:10 PM EST Images from the original note were not included. [facility] Provider Visit Assessment and Plan Assessment & Plan COPD, group D, by GOLD 2017 classification ([facility]) Orders: Doxycycline Hyclate 100 MG Oral Tablet; Take 1 Tablet by mouth in the morning and 1 Tablet before bedtime. For 7 days. As needed Rescue kit use when directed to take for COPD exacerbation. predniSONE 20 MG Oral Tablet (Deltasone); Take 2 Tablets by mouth in the morning. For 5 days. USE NEEDED FOR EXACERBATION. COPD RESCUE KIT. 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 Enjoys spending time with the [facility] COPD rescue kit refilled today Plans to go to [facility] a few days next week Reviewed recent vascular appt Has multiple aneursyms, including thoracic aorta, aortic arch, L subclavian artery, descending thoracic Has CKD4, would refuse dialysis if renal disease worsens Not a surgical candidate for aneurysm repair Reviewed goals of care in light of new information Patient elects for DNR, would still be ok with intubation if short term POLST updated Scheduled appointments in the next 60 days: Future Appointments-next 60 days Date/Time Provider Specialty Dept Phone 03/23/2024 2:00 PM Hannah, Chair [address] Hem Onc Scenery Hematology Oncology [phone] 03/28/2024 3:20 PM (Arrive by 3:05 PM) Shanika Fitzgerald, Sleep Disorders [phone] 04/02/2024 12:30 PM Jenifer Linder RN [facility] [phone] 04/03/2024 10:30 AM Shay Pft Pulmonary Function [phone] 04/03/2024 1:40 PM (Arrive by 1:25 PM) Devin Hodge MD Pulmonary [phone] 04/20/2024 2:00 PM Hannah, Chair 9 Hem Onc Scenery Hematology Oncology [phone] 04/24/2024 6:00 PM (Arrive by 5:45 PM) Jairo Kingston MD Family Medicine [phone] 06/27/2024 3:00 PM (Arrive by 2:45 PM) Michael Snyder MD Hematology Oncology [phone] 07/30/2024 4:00 PM (Arrive by 3:45 PM) Reggie Azevedo MD Nephrology [phone] A total of 35 minutes was spent face to face (via video-based telemedicine if designated as a telemedicine visit) Subjective Subjective Is this a Telemedicine Visit? No, this is an Home Visit. Reason For [facility] Visit: Follow-Up Current Concerns: Mikhail Fung is a 73 year old male seen today for a [facility] provider visit. PMH includes COPD., HTN, diastolic CHF, CKD stage 4, dyslipidemia, GINNY on CPAP, severe aortic stenosis, anemia, h/o GI bleed, h/o CVA. 01/30-02/02/23 - [facility] - COPD exac 04/22-04/25/23- [facility] - UGI bleed, pneumonia 07/21/23 - [facility] - dizziness 09/02-09/05/23 - [facility] - COPD exac 09/13-09/15/23 - [facility] -UGI bleed Today's concerns are : Overall reports feeling well today Had home visit with RNCM 2 weeks ago and started copd rescue kit at that time Reports breathing is now back to baseline Denies cough, fever/chills Chronic CAMARENA Continues to use o2 and cpap at hs Additional Current Outpatient Medications Medication Sig Dispense Refill Docusate Sodium 100 MG Oral Capsule (Colace) Take 1 Capsule by mouth in the morning and 1 Capsule before bedtime. 180 Capsule 3 Doxycycline Hyclate 100 MG Oral Tablet Take 1 Tablet by mouth in the morning and 1 Tablet before bedtime. For 7 days. As needed Rescue kit use when directed to take for COPD exacerbation. 14 Tablet 0 predniSONE 20 MG Oral Tablet (Deltasone) Take 2 Tablets by mouth in the morning. For 5 days. USE ASNEEDED FOR EXACERBATION. COPD RESCUE KIT. 10 Tablet 0 oxygen GAS Use 3 L/min(Oxygen) as directed at bedtime. Use 2-3 l/min continuously to keep pulse ox above 90% CVS D3 50 MCG (1999 UT) Oral Capsule (Cholecalciferol) TAKE 1 CAPSULE BY MOUTH EVERY DAY 90 Cap 1 CPAP every night at bedtime. Ascorbic Acid 250 MG Oral Tablet Take 0.5 Tablets by mouth daily at noon. 90 Tablet 3 Azelastine HCl 0.1 % Nasal Solution (Astelin) Administer 1 Duke into nostril in the morning and 1 Duke before bedtime. 30 mL 1 Pantoprazole Sodium 40 MG Oral Tablet Delayed Release (Protonix) Take 1 Tablet by mouth in the morning and 1 Tablet before bedtime. 180 Tablet 3 Allopurinol 300 MG Oral Tablet (Zyloprim) TAKE ONE-HALF TABLET BY MOUTH EVERY DAY 45 Tablet 2 Ipratropium-Albuterol 0.5-2.5 (3) MG/3ML Inhalation Solution (Duoneb) Inhale 3 mL by mouth every 6 hours as needed (sob). 360 mL 5 Trelegy Ellipta 100-62.5-25 MCG/ACT Aerosol Powder Breath Activated (Hdpfadpqtby-Gevihzdrutfg-Zhksnukbtd) INHALE ONE PUFF BY MOUTH EVERY DAY 180 Each 1 Potassium Chloride ER 10 MEQ Oral Capsule Extended Release Take 1 Capsule by mouth in the morning On Tuesday, Tuesday and Tuesday only 45 Capsule 3 Atorvastatin Calcium 80 MG Oral Tablet (Lipitor) Take 1 Tablet by mouth daily. guaiFENesin ER 600 MG Oral Tablet Extended Release 12 Hour (Humibid LA) Take 1 Tablet by mouth in the morning and 1 Tablet before bedtime. Furosemide 20 MG Oral Tablet (Lasix) TAKE 1 TABLET BY MOUTH twice DAILY 180 Tablet 1 Metoprolol Tartrate 25 MG Oral Tablet (Lopressor) Take 1 Tablet by mouth in the morning and 1 Tablet before bedtime. 180 Tablet 3 Klor-Con M10 10 MEQ Oral Tablet Extended Release TAKE 1 TABLET BY MOUTH ONCE A DAY ON TUESDAY, TUESDAY, AND TUESDAY ONLY. Fluticasone Propionate 50 MCG/ACT Nasal Suspension (Flonase) Administer 2 Sprays into nostril dailyas needed for Allergies. 48 g 3 Apixaban 2.5 MG Oral Tablet (Eliquis) Take 1 Tablet by mouth in the morning and 1 Tablet before bedtime. 60 Tablet 11 Albuterol Sulfate HFA 108 (90 Base) MCG/ACT Inhalation Aerosol Solution Inhale by mouth. 54 g 6 Current Facility-Administered Medications Medication Dose Route Frequency Provider Last Rate Last Admin Albuterol Sulfate (Proventil) (2.5 MG/3ML) 0.083% inhalation solution 2.5 mg 2.5 mg Nebulizer PRN I have reviewed the following results: CBC Lab Results Component Value Date/Time LEFT VENTRICULAR EJECTION FRACTION 55 01/27/2023 03:33 PM Objective Objective Vitals: 03/12/24 1234 Pulse: 72 SpO2: 95% BP: 150/86 Last Weights: Wt Readings from Last 3 Encounters: 12/13/23 93.4 kg (206 lb) 11/08/23 89.2 kg (196 lb 9.6 oz) 10/27/23 78 kg (172 lb) Last BPs: BP Readings from Last 4 Encounters: 03/12/24 150/86 02/27/24 150/74 02/24/24 157/83 01/27/24 129/71 General: alert and no distress Neuro: alert & oriented x 3 with fluent speech Heart: regular rate & rhythm, +murmur Lungs: decreased breath sounds, faint expiratory wheezes bilaterally Abdomen: abdomen soft, non-tender, and normal bowel sounds Ext: trace edema bilat LE documented in this encounter Miscellaneous Notes * Assessment & Plan Note - Heath Zhang PA-C - 03/14/2024 3:34 PM EST Associated Problem(s): 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 For 7 days. As needed Rescue kit use when directed to take for COPD exacerbation. predniSONE 20 MG Oral Tablet (Deltasone); Take 2 Tablets by mouth in the morning. For 5 days. USE NEEDED FOR EXACERBATION. COPD RESCUE KIT. 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 Patient-centered Communication 03/12/2024 The patient/surrogate voluntarily agreed to participate in advance care planning discussion. They were advised that this is a separate service which may incur out of pocket cost in the form of copayment and/or deductibles. Location: Home Individual(s) present for conversation: Patient and Spouse Decisions Synopsis SmartLink Most Recent Value Past ~10 years 03/14/2024 15:29 Decisions CPR decision: Declines CPR 03/14/2024 Declines CPR Intubation/Mechanical Ventilation decision: Patient chooses Intubation/mechanical ventilation < 3 days only 03/14/2024 Patient chooses Intubation/mechanical ventilation < 3 days only Non-invasive ventilation or BIPAP decision: Patient chooses non-invasive ventilation. Select interventions below 03/14/2024 Patient chooses non-invasive ventilation. Select interventions below Non-Invasive Ventilation Interventions: Oxygen only;CPAP;BIPAP;NIV 03/14/2024 Oxygen only;CPAP;BIPAP;NIV Antibiotic therapy decision: Patient chooses Antibiotic therapy 03/14/2024 Patient chooses Antibiotic therapy Artificial nutrition decision: Undecided about Artificial nutrition 12/13/2022 IV hydration decision: Patient chooses IV hydration 12/13/2022 Chemotherapy decision: Undecided about Chemotherapy 12/13/2022 Radiation therapy decision: Undecided about Radiation therapy 12/13/2022 Surgical procedure(s) decision: Declines Surgical procedure 03/14/2024 Declines Surgical procedure Blood transfusion decision: Patient chooses Blood transfusion 12/13/2022 Lab draw decision: Patient chooses Lab draws 12/13/2022 Transport decision: Patient chooses Transport 12/13/2022 Dialysis decision: Declines Dialysis 03/14/2024 Declines Dialysis Additional Comments Synopsis SmartLink Most Recent Value Past ~10 years 03/14/2024 15:29 Additional Comments Additional Comments: POLST updated to reflect DNR. OOH DNR completed 03/14/2024 POLST updated to reflect DNR. OOH DNR completed Discerning What Matters Most to the Patient: Synopsis SmartLink Most Recent Value Past ~10 years 03/14/2024 15:31 Discerning What Matters Most to the Patient In their own words, patient's UNDERSTANDING of their illness is: "i know my breathing isnt good, i need to use oxygen" "i get regular iron infusions to help bring my blood levels up" 01/10/2024 Their current SYMPTOMS include: Tiredness;Shortnes of breath;Reduced overall well being 01/10/2024 They say their illness has CHANGED THEIR LIFE by: Less enjoyment (quality of life) More difficult to get around at this time in the loss of his right peripheral vision does crease with challenges 07/07/2020 The patient thinks COMPLICATIONS in the future may be: More hospitalizations;;Prefers information regarding prognosis 07/07/2020 Was PROGNOSIS discussed? Yes 07/07/2020 Prognosis was discussed today as likely to live: Many years 07/07/2020 The patient's HOPES are: Maintain current functional abilities 07/07/2020 The patient defines LIVING WELL as: would like to remain at home and care for as long as he isphysically able to 03/14/2024 would like to remain at home and care for as long as he is physically able to The patient's FEARS/WORRIES about illness are: Going to a residential aware that going to an ZA may be inevitable 03/14/2024 Going to a residential aware that going to an ZA may be inevitable Source: Content from [employer] Aligning Care With What Matters Most: Synopsis SmartLink Most Recent Value Past ~10 years 03/14/2024 15:29 Aligning Care With What Matters Most In their own words, the patient's understanding of their prognosis: "I have multiple aneurysms. Im living on borrowed time" 03/14/2024 "I have multiple aneurysms. Im living on borrowed time" Interventions/Choices: CPR;Intubation/mechanical ventilation;Non-invasive ventilation or BIPAP;Antibiotic therapy;Dialysis;Surgical procedure 03/14/2024 CPR;Intubation/mechanical ventilation;Non-invasive ventilation or BIPAP;Antibiotic therapy;Dialysis;Surgical procedure Source: Content from [employer] 15 minutes spent in direct [id number] discussion today, Heath Zhang PA-C documented in this encounter Plan of Treatment Upcoming Encounters Date Type Department Care Team (Late st Contact Info) Description 03/23/2024 2:00 PM EST Hem/Onc Treatment Hematology/Oncology Treatment, [place] [address] [facility], [place] [phone] Hannah, Chair 7 Hem Onc Scenery [address] [place] [address] 03/28/2024 3:20 PM EST Office Visit Sleep Disorders Ctr [facility] [address] [facility] [place] [phone] Shanika Fitzgerald, [address] [place] [address] 04/02/2024 12:30 PM EST Home Visit [facility], [facility] [address] [facility] [place] [address] Jenifer Linder RN [address] [facility] [place] [address] 04/03/2024 10:30 AM EST PulmDiagnostic Pulmonary Function Lab, [facility] [address] [facility] [place] [address] [place], P[place] [address] [facility] [place] [address] 04/03/2024 1:40 PM EST Office Visit Pulmonary Medicine, [facility] [address] [facility] [place] [address] Devin Hodge MD [address] [place] [address] 04/20/2024 2:00 PM EST Hem/Onc Treatment Hematology/Oncology Treatment, [place] [address] [facility] [place] [phone] Hannah, Chair 9 Hem Onc Scenery [address] [place] [address] 04/24/2024 6:00 PM EST Office [facility] [address] [facility] [address] [place] [phone] Jairo Kingston MD [address] [place] [address] 05/28/2024 11:00 AM EST [facility] Visit [facility] [address] [place] [address] Heath Zhang PA-C [address] [place] [address] 06/27/2024 3:00 PM EDT Office Visit Hematology/Oncology [facility] [place] [address] [facility] [place] [phone] Michael Snyder MD [address] [facility] [place] [address] 07/30/2024 4:00 PM EDT Office Visit Nephrology, [facility] [address] [facility] [place] [address] Reggie Azevedo MD [address] [facility] [place] [address] Scheduled Procedures Name Priority Associated Diagnoses Date/Ti me COLONOSCOPY FLEXIBLE PROXIMAL DIAGNOSTIC Recall History of colon polyps Health Maintenance Due Date Last Done Comments Adult Wellness Visit 2014 *COPD SEVERITY VERIFIED BY PFT 08/28/2022 Albumin/Creatinine Ratio 10/08/2022 10/08/2021 COVID-19 Vaccine ( season) 2023 02/19/2021, 06/19/2020, 05/22/2020 GFR 06/28/2024 12/30/2023, 10/16, 10/25/2023, Additional history exists Depression Screening 10/09/2024 10/10/2023 O2 ASSESSMENT COMPLETED IN PAST YEAR FOR COPD 10/25/2024 10/26/2023 Nephrology Referral 12/12/2024 12/13/2023 PTH 12/29/2024 12/30/2023, 1110/2022, 12/31/2021, Additional history exists Phosphate 12/29/2024 12/30/2023, 07/0 09/2023, 02/22/2023, Additional history exists AAA Monitoring 01/18/2025 01/19/2024, 070 08/2023, 10/19/2023, Additional history exists Hgb 02/23/2025 02/24/2024, 01/16, 01/13/2024, Additional history exists Colonoscopy 01/02/2026 01/02/2021, 07/17, [...] this encounter Medical Devices Implanted Type Area Capsule Inspector Device Identifier Shelf Expiration Date Model / Serial / Lot Graft Hemasheild 20mm [id number] - [id number] Implanted:Qty: 1 on 01/13/2009 at OR [facility] N/A: Abdomen MICROVASIVE [id number] / / [id number] Clip Resolution 360 Endo 235cm - [id number] Implanted:Qty: 1 on 12/10/2022 by Lacie England MD at OR [facility] [employer] : ENDOSCOPY [id number] 07/02/2025 [id number] / / [id number] Clip Resolution 360 Endo 235cm - [id number] Implanted:Qty: 1 on 12/10/2022 by Lacie England MD at OR [facility] : ENDOSCOPY [id number] 07/02/2025 [id number] / / [id number] Stent Biliary Adult L30mm Dia1 - [id number] Implanted:Qty: 1 on 10/26/2023 by Lacie England MD at OR [facility] : JOHANNA COURTNEY [id number] 06/27/2026 [id number] / / [id number] documented as of this encounter Visit Diagnoses [...] Advanced care planning/counseling discussion Other specified counseling documented in this encounter Advance Directives Documents on File Type Date Recorded Patient Produce Department Supervisor Expl anation Power of Practice Director 07/30/2022 POWER OF A TTORNEY * Full [...] and were consensually agreed upon. Care Teams Equipment Maintenance Supervisor Relationship Specialty Start Date End Date Jairo Kingston MD [address] [place] [address] PCP - General 12/21/05 documented as of this encounter
--- OUTSIDE RECORDS SUMMARY | 2024-04-26 10:50 | External Medical Summary ---
Author Name Unknown Address Unknown Organization K09[facility] [place] [address] Laboratory Report Ordering Provider Test Date Status LOLLY ALEGRIA 03/23/2024 13:52:40 Final Observation Date Value Abnormality Reference (Units ) Status WBC, Total 03/23/2024 13:52:40 7.69 4.00-10.8 0 (K/uL) Final RBC 03/23/2024 13:52:40 3.88 4.50-5.25 (M/uL) Final Hemoglobin 03/23/2024 13:52:40 12.6 Below low normal 14 .0-16.8 (g/dL) Final HCT 03/23/2024 13:52:40 40.1 40.0-48.4 (%) Final MCV 03/23/2024 13:52:40 103.4 82.0-99.5 (fL) Final MCH 03/23/2024 13:52:40 32.5 27.0-34.0 (pg) Final MCHC 03/23/2024 13:52:40 31.4 32.0-36.0 (g/dL) Final RDW 03/23/2024 13:52:40 16.5 11.5-15.5 (%) Final Platelets 03/23/2024 13:52:40 212 140-400 (K /uL) Final MPV 03/23/2024 13:52:40 9.6 6.6-11.1 ( fL) Final Performing Location [facility] [place] [address]
--- OUTSIDE RECORDS SUMMARY | 2024-04-26 10:50 | External Medical Summary ---
Author Name Unknown Address Unknown Organization [id number][facility] [place] [address] Laboratory Report Ordering Provider Test Date Status LOLLY ALEGRIA 03/23/2024 13:52:40 Final Observation Date Value Abnormality Reference (Units ) Status SYNC LEUKOCYTES IN BLOOD BY AUTOMATED COUNT 03/23/2024 13:52:40 7.69 4.00-10.80 (K/uL) Final Segs 03/23/2024 13:52:40 62.1 40.0-75.0 (%) Final Lymphs % 03/23/2024 13:52:40 15.2 Below low normal 18.0-42.0 (%) Final Monos 03/23/2024 13:52:40 10.9 1.0-11.0 (%) Final Eosinophils 03/23/2024 13:52:40 11.3 Above high normal 0.0-6.0 (%) Final Basos 03/23/2024 13:52:40 0.5 0.0-2.0 (%) Final Absolute Segs 03/23/2024 13:52:40 4.77 1.80-7.70 (K/uL) Final Lymphs, absolute 03/23/2024 13:52:40 1.17 1.00-4.80 (K/ul) Final Monos, Abs 03/23/2024 13:52:40 0.84 0.00-1.10 (K/uL) Final Eos, Abs 03/23/2024 13:52:40 0.87 Above high normal 0.00-0.70 (K/uL) Final Basos, Abs 03/23/2024 13:52:40 0.04 0.00-0.20 (K/uL) Final Performing Location [facility] [address]
--- OUTSIDE RECORDS SUMMARY | 2024-04-26 10:50 | External Medical Summary ---
Author Name Unknown Address Unknown Organization K09:[facility] [place] [address] Laboratory Report Ordering Provider Test Date Status LOLLY ALEGRIA 03/23/2024 13:52:40 Final Observation Date Value Abnormality Reference (Units ) Status BUN 03/23/2024 13:52:40 46 Above high normal 6-20 (mg/dL) Final Creatinine 03/23/2024 13:52:40 2.1 Above high normal 0.6-1.2 (mg/dL) Final Glomerular filtration rate/1.73 sq M.predicted [Volume Rate/Area] in Serum, Plasma or Blood by Creatinine-based formula (CKD-EPI) 03/23/2024 13:52:40 33 Below low normal >=60 (mL/min) Final eGFR is calculated based on the CKD-EPI 2020 equation. Sodium 03/23/2024 13:52:40 139 135-146 (m mol/L) Final Potassium 03/23/2024 13:52:40 4.4 3.5-5.1 (m mol/L) Final Cl 03/23/2024 13:52:40 104 98-107 (mm ol/L) Final CO2 03/23/2024 13:52:40 23 22-32 (mmo l/L) Final Anion gap 03/23/2024 13:52:40 12 7-15 (mmol /L) Final Glucose 03/23/2024 13:52:40 92 70-120 (mg /dL) Final Albumin 03/23/2024 13:52:40 4.1 3.8-5.0 (g /dL) Final AST (Aspartate aminotransferase) 03/23/2024 13:52:40 17 10-50 (U/L) Final Alk Phos 03/23/2024 13:52:40 96 35-130 (U/ L) Final Bilirubin, Total 03/23/2024 13:52:40 0.3 <=1 .2 (mg/dL) Final Calcium 03/23/2024 13:52:40 9.5 8.4-10.2 ( mg/dL) Final Protein 03/23/2024 13:52:40 7.5 6.0-8.3 (g /dL) Final ALT (Alanine aminotransferase) 03/23/2024 13:52:40 12 10-50 (U/L) Final Performing Location [facility] [address] [place] [address]
--- OUTSIDE RECORDS SUMMARY | 2024-04-26 10:50 | External Medical Summary | Summary of Care ---
Author Name Unknown Organization [facility] Address [address] [place] [address] Phone [phone] Care Team Providers Care Student Records Specialist Name Role Phone Jairo Kingston MD Primary Care Provider [phone]- [phone] Reason for Visit * Reason Comments Infusion Venofer Encounter Details Date Type Department Care Team (Latest Contact Info) Description 02/24/2024 2:00 PM EST Hem/Onc Treatment Hematology/Oncology Treatment, [place] [address] [place] [address] Hannah, Chair 3 Hem Onc [address] [address] Iron deficiency anemia due to chronic blood loss* Allergies Active Allergy Reactions Criticality Noted Date Comments Pavan Inhibitors Other (Please comment) 0 Hyperkalemia documented as of this encounter (statuses as of 03/27/2024) Medications oxygen GAS Use 3 L/min(Oxygen) as [...] 0.1 % Nasal Solution (Astelin) Administer 1 Lander into nostril in the morning and 1 Lander before bedtime. 30 mL 1 01/12/20 23 [...] Oral Tablet (Eliquis)Indicatio ns:Recurrent cerebrovascular accidents (CVAs) ([facility]) Take 1 Tablet by mouth in the morning and 1 Tablet before bedtime. 60 Tablet 11 4 11:16 AM EST 01/30/20 24 Active Docusate Sodium 100 MG Oral Capsule (Colace) Take 1 Capsule by mouth 2 times a day as needed for Constipation. 180 Capsule 3 04/20/19 24 024 Discontin ued(Refil l) Albuterol Sulfate HFA 108 (90 Base) MCG/ACT Inhalation Aerosol SolutionIndication s:COPD, group D, by GOLD 2017 classification ([facility]) Inhale 2 Puffs by mouth every 4 hours as needed for Wheezing. 54 g 6 4 11:38 AM EST 11/23/19 24 024 Discontin ued(Medic ation List Clean Up) predniSONE 20 MG Oral Tablet (Deltasone)Indicat ions:COPD, group D, by GOLD 2017 classification ([facility]) Take 2 Tablets by mouth in the morning. USE NEEDED FOR EXACERBATION. COPD RESCUE KIT. 10 Tablet 4 4:35 PM EDT 12/09/19 24 024 Discontin ued(Refil l) Doxycycline Hyclate 100 MG Oral TabletIndications: COPD, group D, by GOLD 2017 classification ([facility]) Take 1 Tablet by mouth in the morning and 1 Tablet before bedtime. For as needed Rescue kit use when directed to take for COPD exacerbation. 14 Tablet 01/25/20 24 024 Discontin ued(Refil l) Hospital, Clinic, or Other Facility Administered Medication Ordered Dose Route Frequency Start Date End Date Status Albuterol Sulfate (Proventil) (2.5 MG/3ML) 0.083% inhalation solution 2.5 mgIndications:COPD, group D, by GOLD 2017 classification ([facility]) 2.5 mg NEBULIZER PRN 10/03/2023 10/02/2024 Acti ve documented as of this encounter (statuses as of 03/27/2024) Active Problems Problem Noted Date Diagnosed Date [...] Wheezing Medication Regimen Class D - Inhaled [id number] Combination Inhaler (Henry) Remote Patient Monitoring Vendor: No Connected RPM [...] Assessment & Plan (11/11/2022 9:14 PM EDT): cristina Gonsalves History of supraventricular tachycardia 11/12/19 Idiopathic chronic gout of foot without tophus 0 11/11/2022 Assessment & Plan (11/11/2022 9:15 PM EDT): Allopurinol intermission coordinator No new attacks GINNY on CPAP [...] as of this encounter (statuses as of 03/27/2024) Resolved Problems Problem Noted Date Diagnosed Date [...] as of this encounter (statuses as of 03/27/2024) Immunizations Name Administration Dates Next Due COVID-19 [...] Sign Reading Time Taken Comments Blood Pressure 157/83 02/24/2024 2:31 PM EST Pulse 71 02/24/2024 2:31 PM EST Temperature 36.6 C (97.9 F) 02/24/2024 2:31 PM ES T Respiratory Rate 18 02/24/2024 2:31 PM EST Oxygen Saturation 90% 02/24/2024 2:31 PM EST Inhaled Oxygen Concentration - - [...] Nursing Notes * Nyla Barajas LPN - 02/24/2024 2:32 PM EST 1355: Pt arrived for Venofer infusion and lab draw. PIV in LFA. Pt tolerated well. VSS. Labs drawn with IV start. Patient instructed on use of heat and massage functions where applicable. Patient shown how to operate the heat function of the chair and to alert nursing staff if the chair feels too warm. Patient instructed on the risk of potential watson while using the heat function. Pt has no complaints at this time. 1535: Pt tolerated Venofer infusion well. PIV removed intact. Pt to return in 4 weeks. Discharged in stable condition. documented in this encounter Plan of Treatment Upcoming Encounters Date Type Department Care Team (Late st Contact Info) Description 03/28/2024 3:20 PM EST Office Visit [facility] Disorders Ctr [facility] [address] [place] [phone] Shanika Fitzgerald DO [address] [place] [address] 04/02/2024 12:30 PM EST Home Visit [facility] [address] [place] [address] Jenifer Linder, RN [address] [place] [address] 04/03/2024 10:30 AM EST PulmDiagnostic Pulmonary Function Lab, [facility] [address] [place] [address] Shay, Pft [address] [place] [address] 04/03/2024 1:40 PM EST Office Visit Pulmonary Medicine, [facility] [address] [address] Devin Hodge MD [address] [place] [address] 04/20/2024 2:00 PM EST Hem/Onc Treatment Hematology/Oncology Treatment, [place] [address] [facility] [address] [place], [place] [phone] Hannah, Chair 9 Hem Onc [facility] [address] [facility] [place] [address] 04/24/2024 6:00 PM EST [facility] [phone] Jairo Kingston MD [address] [facility] [place] [address] 05/28/2024 11:00 AM EST Home Visit [facility] [address] [facility] [place] [address] Heath Zhang PA-C [address] [facility] [place] [address] 06/27/2024 3:00 PM EDT Office Visit Hematology/Oncology [facility] [place] [address] [facility] [place] [phone] Michael Snyder MD [address] [facility] [place] [address] 07/30/2024 4:00 PM EDT Office Visit Nephrology, [facility] [address] [facility] [place], [place] [address] Reggie Azevedo MD [address] [facility] [place], [place] [address] Scheduled Orders Name Type Priority Associated Diagnoses Orde r Schedule CBC WITH WBC DIFFERENTIAL Lab STAT Iron deficiency anemia due to chronic blood loss Every Month for 12 Occurrences starting 02/24/2024 until 02/23/2025, 2 completed FERRITIN Lab STAT Iron deficiency anemia due to chronic blood loss Every Month for 12 Occurrences starting 02/24/2024 until 02/23/2025, 2 completed IRON SCREEN, INCLUDING TIBC Lab STAT Iron deficiency anemia due to chronic blood loss Every Month for 12 Occurrences starting 02/24/2024 until 02/23/2025, 2 completed Scheduled Procedures Name Priority Associated Diagnoses Date/Ti [...] this encounter Medical Devices Implanted Type Area Safety Aide Device Identifier Shelf Expiration Date Model / Serial / Lot Graft Hemasheild 20mm [id number] - [id number] Implanted:Qty: 1 on 01/13/2009 at [place] [facility] N/A: Abdomen MICROVASIVE [id number] / / [id number] Clip Resolution 360 Endo 235cm - [id number] Implanted:Qty: 1 on 12/10/2022 by Lacie England MD at OR [facility] [employer] : ENDOSCOPY [id number] 07/02/2025 [id number] / / [id number] Clip Resolution 360 Endo 235cm - [id number] Implanted:Qty: 1 on 12/10/2022 by Lacie England MD at OR [facility] [employer] : ENDOSCOPY [id number] 07/02/2025 [id number] / / [id number] Stent Biliary Adult L30mm Dia1 - [id number] Implanted:Qty: 1 on 10/26/2023 by Lacie England MD at OR [facility] COOK : JOHANNA COURTNEY [id number] 06/27/2026 [id number] / / [id number] documented as of this encounter Procedures Procedure Name Priority Date/Time Associated Diagnosis Comments DIFFERENTIAL, AUTOMATED STAT 02/24/2024 1:50 PM EST Iron deficiency anemia due to chronic blood loss IRON SCREEN, INCLUDING TIBC STAT 02/24/2024 1:50 PM EST Iron deficiency anemia due to chronic blood loss CBC STAT 02/24/2024 1:50 PM EST Iron deficiency anemia due to chronic blood loss CBC STAT 02/24/2024 1:50 PM EST Iron deficiency anemia due to chronic blood loss FERRITIN STAT 02/24/2024 1:50 PM EST Iron deficiency anemia due to chronic blood loss documented in this encounter Results * IRON SCREEN, INCLUDING TIBC (03/23/2024 1:52 PM EST) Pathologist [facility] Iron 50 45 - 176 ug/dL 03/24/2024 12:11 AM EST [facility] Iron Binding Capacity 272 250 - 425 ug/dL 03/24/2024 12:11 AM EST [facility] Transferrin Saturation Percent 18 15 - 55 % 03/24/2024 12:11 AM EST [facility] Blood Venous blood specimen / Unknown Venipuncture / Unknown 03/23/2024 1:52 PM EST 03/23/2024 2:30 PM EST Sheri [facility] LAB BLOOD ORDERABLES Fi nal Result [facility] [address] [place] [address] * FERRITIN (03/23/2024 1:52 PM EST) Pathologist [facility] Ferritin 187 30 - 400 ng/mL 03/24/2024 12:58 AM EST [facility] Blood Venous blood specimen / Unknown Venipuncture / Unknown 03/23/2024 1:52 PM EST 03/23/2024 2:30 PM EST Sheri [facility] LAB BLOOD ORDERABLES Fi nal Result [facility] [address] [place] [address] * (ABNORMAL) DIFFERENTIAL, AUTOMATED (02/24/2024 1:50 PM EST) Pathologist [facility] WBC 6.37 4.00 - 10.80 K/uL 02/24/2024 2:00 PM EST [facility] 56-02 Neutrophils % 57.3 40.0 - 75.0 % 02/24/2024 2:00 PM EST [facility] 56- Lymphocytes % 17.3(L) 18.0 - 42.0 % 02/24/2024 2:00 PM EST [facility] 56- Monocytes % 14.1(H) 1.0 - 11.0 % 02/24/2024 2:00 PM EST [facility] 56- Eosinophils % 10.0(H) 0.0 - 6.0 % 02/24/2024 2:00 PM EST [facility] 56- Basophils % 1.3 0.0 - 2.0 % 02/24/2024 2:00 PM [facility] 56- Absolute Neutrophils 3.65 1.80 - 7.70 K/uL 02/24/2024 2:00 PM EST [facility] 56- Absolute Lymphocytes 1.10 1.00 - 4.80 K/ul 02/24/2024 2:00 PM [facility] 56- Absolute Monocytes 0.90 0.00 - 1.10 K/uL 02/24/2024 2:00 PM [facility] 56- Absolute Eosinophils 0.64 0.00 - 0.70 K/uL 02/24/2024 2:00 PM [facility] 56-02 Absolute Basophils 0.08 0.00 - 0.20 K/uL 02/24/2024 2:00 PM [facility] 56-02 Blood Venous blood specimen / Unknown Venipuncture / Unknown 02/24/2024 1:50 PM EST 02/24/2024 1:57 PM EST us Sheri [facility] LAB BLOOD ORDERABLES Fi nal Result [facility] [address]- [address] [place] [address] * (ABNORMAL) CBC (02/24/2024 1:50 PM EST) Pathologist [facility] WBC 6.37 4.00 - 10.80 K/uL 02/24/2024 2:00 PM EST [facility] 56-02 RBC 3.87 4.50 - 5.25 M/uL 02/24/2024 2:00 PM EST [facility] 56 HGB 12.3(L) 14.0 - 16.8 g/dL 02/24/2024 2:00 PM [facility] 56 HCT 39.6(L) 40.0 - 48.4 % 02/24/2024 2:00 PM [facility] 56 MCV 102.3 82.0 - 99.5 fL 02/24/2024 2:00 PM [facility] 56 MCH 31.8 27.0 - 34.0 pg 02/24/2024 2:00 PM [facility] 56 MCHC 31.1 32.0 - 36.0 g/dL 02/24/2024 2:00 PM [facility] 56 RDW 17.1 11.5 - 15.5 % 02/24/2024 2:00 PM [facility] 56 PLT 217 140 - 400 K/uL 02/24/2024 2:00 PM [facility] 56 MPV 9.5 6.6 - 11.1 fL 02/24/2024 2:00 PM [facility] 56 Blood Venous blood specimen / Unknown Venipuncture / Unknown 02/24/2024 1:50 PM EST 02/24/2024 1:57 PM EST us Sheri [facility] LAB BLOOD ORDERABLES Fi nal Result [facility] [address] [place] [address] * IRON SCREEN, INCLUDING TIBC (02/24/2024 1:50 PM EST) Pathologist [facility] Iron 62 45 - 176 ug/dL 02/24/2024 10:32 PM EST [facility] Iron Binding Capacity 284 250 - 425 ug/dL 02/24/2024 10:32 PM EST [facility] Transferrin Saturation Percent 22 15 - 55 % 02/24/2024 10:32 PM EST [facility] Blood Venous blood specimen / Unknown Venipuncture / Unknown 02/24/2024 1:50 PM EST 02/24/2024 1:57 PM EST us Sheri Moorekevin [facility] LAB BLOOD ORDERABLES Fi nal Result [facility] [address] [place] [address] * FERRITIN (02/24/2024 1:50 PM EST) Ferritin 151 30 - 400 ng/mL 02/24/2024 11:45 PM EST [facility] Blood Venous blood specimen / Unknown Venipuncture / Unknown 02/24/2024 1:50 PM EST 02/24/2024 1:57 PM EST Sheri Moorekevin [facility] LAB BLOOD ORDERABLES Fi nal Result Performing Organization Address City/[facility]/ZIP Co de Phone Number LABORATORY [facility] [address] [place] [address] documented in this encounter Visit Diagnoses Diagnosis [...] 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 (chronic) Chronic hypoxic respiratory failure, on home oxygen therapy (HCC)- Primary COPD, group D, by GOLD 2017 classification (HCC) Shaggy aorta syndrome (HCC) Atherosclerosis of aorta 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) Advanced care planning/counseling discussion Other specified counseling documented in this encounter Administered Medications Inactive Administered Medications - up to 3 most recent administrations Medication Order MAR Action Action Date Dose Rate Site Iron Sucrose (Venofer) 300 mg in NSS 250 mL ivpb 300 mg, IV Piggyback, ONCE, 1 dose, On Tue02/24/24 at 1515, Administer over 90 MinutesIndications:Iron deficiency anemia due to chronic blood loss Start Infusion 02/24/2024 2:01 PM EST 300 mg 180 mL/hr NSS infusion 500 mL, Intravenous, at 50 mL/hr, CONTINUOUS, Starting on Tue02/24/24 at 1445, Until Tue02/24/24 at 1950Indications:Iron deficiency anemia due to chronic blood loss Start Infusion 02/24/2024 1:59 PM EST 500 mL 50 mL/hr documented in this encounter Advance Directives Documents on File Type Date Recorded Patient Gear Keeper Expl anation Power of Bounty Trapper 07/30/2022 POWER OF A TTORNEY * Full [...] and were consensually agreed upon. Care Teams Student Records Specialist Relationship Specialty Start Date End Date Jairo Kingston MD [address] [place] [address] PCP - General 12/21/05 documented as of this encounter
--- OUTSIDE RECORDS SUMMARY | 2024-04-26 10:50 | External Medical Summary ---
Author Name Unknown Address Unknown Organization K01:[facility] [place] [address] [place] [address] Laboratory Report Ordering Provider Test Date Status AIRAMLOLLY 03/23/2024 13:52:40 Final Observation Date Value Abnormality Reference (Units ) Status Ferritin 03/23/2024 13:52:40 187 30-400 (ng /mL) Final Performing Location [facility] - [address] [place] [address]
--- OUTSIDE RECORDS SUMMARY | 2024-04-26 10:51 | External Medical Summary | Summary of Care ---
Author Name Unknown Organization [facility] Address [address] [place] [place] [address] Phone [phone] Care Team Providers Care Mica Miner Blasting Name Role Phone Jairo Kingston MD Primary Care Provider [phone]- [phone] Reason for Visit * Reason Onset Date Comments Medication Administration 02/27/2024 Flu an d/or Pneumo Inj Encounter Details Date Type Department Care Team (Late st Contact Info) Description 02/27/2024 12:30 PM EST [facility] [address] [facility] [place] [address] Jenifer Linder, RN 132 [facility] [place] [address] Need for prophylactic vaccination and inoculation against influenza* Allergies Active Allergy Reactions Criticality Noted Date Comments Pavan Inhibitors Other (Please comment) 0 Hyperkalemia documented as of this encounter (statuses as of 02/27/2024) Medications oxygen GAS Use 3 L/min(Oxygen) as [...] 0.1 % Nasal Solution (Astelin) Administer 1 [place] into nostril in the morning and 1 [place] before bedtime. 30 mL 1 01/12/20 23 Active Docusate Sodium 100 MG Oral Capsule (Colace) Take 1 Capsule by mouth 2 times a day as needed for Constipation. 180 Capsule 3 04/20/19 24 Active Additional Information Patient taking differently:100 mg OralBID (.AM/PM), Reported on 10/28/2023 Pantoprazole Sodium 40 MG Oral Tablet Delayed [...] MOUTH EVERY DAY 180 Each 1 4 4:10 PM EDT 08/02/19 24 Active Potassium Chloride ER 10 [...] morning and 1 Tablet before bedtime. Active Albuterol Sulfate HFA 108 (90 Base) MCG/ACT Inhalation Aerosol SolutionIndications :COPD, group D, by GOLD 2017 classification ([facility]) Inhale 2 Puffs by mouth every 4 hours as needed for Wheezing. 54 g 6 4 8:36 AM EDT 11/23/19 24 Active Furosemide 20 MG Oral Tablet (Lasix) TAKE 1 TABLET BY MOUTH twice DAILY 180 Tablet 1 4 1:55 PM EDT 12/08/19 24 Active Metoprolol Tartrate 25 MG [...] Oral Tablet (Eliquis)Indication s:Recurrent cerebrovascular accidents (CVAs) ([facility]) Take 1 Tablet by mouth in the morning and 1 Tablet before bedtime. 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 01/26/2024 Malnutrition of moderate degree 10/22/2023 SBO (small bowel obstruction) 10/21/2023 MAGDALENO (acute kidney injury) 10/21/2023 Chronic hypoxic respiratory failure, on home oxy gen therapy 10/21/2023 Assessment & Plan (01/10/2024 5:20 PM EDT): "RED FLAG" COPD symptoms: Increased dyspnea on exertion Cough Wheezing Medication Regimen Class D - Inhaled Uzplseinjogkza-NOJV-MESU Combination Inhaler (Trellegy) Remote Patient Monitoring Vendor: [...] & Plan (11/11/2022 9:15 PM EDT): Allopurinol institute scientist No new attacks GINNY on CPAP 11/11/2022 [...] as of this encounter (statuses as of 02/27/2024) Resolved Problems Problem Noted Date Diagnosed Date [...] as of this encounter (statuses as of 02/27/2024) Immunizations Name Administration Dates Next Due COVID-19 [...] Sign Reading Time Taken Comments Blood Pressure 150/74 02/27/2024 12:15 PM EST Pulse 74 02/27/2024 12:15 PM EST Temperature 36.5 C (97.7 F) 02/27/2024 12:[address] Respiratory Rate 18 02/27/2024 12:15 PM EST Oxygen Saturation 92% 02/27/2024 12:15 PM EST Inhaled Oxygen Concentration - - Weight - - Height - - Body Mass Index - - documented in this encounter Functional Status * Are you deaf or do you have serious difficulty hearing? Answer Date of Assessment Author Yes 10/21/2023 6:05 PM FERT Aaron House RN * Are you blind [...] Date Author No 10/21/2023 6:05 PM EDT Aarno House RN documented in this encounter Progress Notes * Jenifer Linder RN - 02/27/2024 12:19 PM EST Current Concerns: Pt reports he has been having increased SOB and more frequent cough with thick white to yellow mucus - started last week Reports he has been using rescue inhaler and nebulizer and it seemed to help at first but feels it is not getting better Has wheezing throughout lung read Denies sore throat, headaches Does report feeling dizzy at times Has used rescue kit in the past and does not have any in the home TE and TT sent to provider for refill to [facility] in [place] Pt reports he and family are looking into him and moving into [facility] in [facility] He states they are not sure yet but it is an option because he wants to stay with but d/t 's dementia it is getting harder to care for her at home Flu vaccine administered in left deltoid Pt tolerated well Physical Exam: Physical Exam Constitutional: General: He is not in acute distress. Cardiovascular: Rate and Rhythm: Normal rate and regular rhythm. Pulses: Normal pulses. Heart sounds: Normal heart sounds. Pulmonary: Effort: Pulmonary effort is normal. Breath sounds: Wheezing present. Abdominal: General: Bowel sounds are normal. Palpations: Abdomen is soft. Musculoskeletal: Right lower leg: Edema (trace) present. Left lower leg: Edema (+1) present. Skin: General: Skin is warm and dry. Coloration: Skin is pale. Neurological: Mental Status: He is alert and oriented to person, place, and time. Review of Systems: Review of Systems Constitutional: Negative. HENT: Negative. Eyes: Negative. Respiratory: Positive for cough (white to yellow thick mucus), shortness of breath and wheezing. Cardiovascular: Positive for leg swelling. Gastrointestinal: Negative. Genitourinary: Negative. Skin: Negative. Neurological: Positive for dizziness. Psychiatric/Behavioral: Negative. Care Plan Goal Progress: GS - Patient/caregiver will verbalize an understanding of diagnosis, treatment and self management of chronic obstructive pulmonary disease (COPD) (Progressing) Start: 01/18/24 Expected End: 06/14/24 GS - Patient/caregiver will verbalize strategies to prevent COPD exacerbation. (Progressing) Start: 01/18/24 Expected End: 06/14/24 Orders Placed: Plan Fluzone High Dose (HD) - Influenza Vac., Trivalent, PF, 0.5mL 65 Years and Up, IM [32667.01] Medications Given: Care Gaps: Care Gaps Care gaps closed this contact:: Education;Home based procedures;Medications;Plan of Care (POC);Rescue kit started (02/27/241709) Type of education: Clinical/disease (02/27/241709) Procedure performed: Immunization (02/27/241709) Type of medication care gap: Medication adherence;Medication optimization (02/27/241709) Type of plan of care (POC) care gap: Adjustment of plan of care (POC) and/or Integrated Care Plan (ICP);Education and review of exacerbation plan (02/27/241709) PRE - ADMINISTRATION DOCUMENTATION Are you experiencing any cold symptoms or fever? No Have you had Guillain-Bro[place] Syndrome (an illness that causes paralysis) within the last 6 weeks? No Have you had the flu shot in the past? YES Have you ever had a reaction to the flu shot? No Jenifer Linder RN, 02/27/2024 1:17 PM Immunization Administration Documentation Time Out Procedure Performed: Yes Patient Identified (Ask Name/Date of ): Yes Does the patient have a fever greater than 101 degrees today? No Patient allergic to latex? No VFC Stock: No Immunization(s) verified: Yes, Immunization Name: Flu, VIS Sheet(s) given: Yes Verified Side and Site: Yes Verified Shot(s) with Parent(s)/Patient: Yes documented in this encounter Plan of Treatment Upcoming Encounters Date Type Department Care Team (Late st Contact Info) Description 03/12/2024 11:00 AM EST Home Visit [facility], [facility] [address] [address] Heath Zhang PA-C [address] [place] [address] 03/23/2024 2:00 PM EST Hem/Onc Treatment Hematology/Oncology Treatment, [place] [address] [place] [phone] Hannah, Chair 4 Hem Onc Scenery [address] [place], [place] [address] 03/28/2024 3:20 PM EST Office Visit [facility] [address] [facility] [place] [phone] Shanika Fitzgerald DO [address] [place] [address] 04/02/2024 12:30 PM EST Home Visit [facility], [facility] [address] [address] Jenifer Linder, RN [address] [place] [address] 04/03/2024 10:30 AM EST PulmDiagnostic Pulmonary Function Lab, [facility] [place] [address] [address], [address] [facility] [place] [address] 04/03/2024 1:40 PM EST Office Visit Pulmonary Medicine, [facility] [address] [facility] [place] [address] Devin Hodge MD [address] [address] 04/20/2024 2:00 PM EST Hem/Onc Treatment Hematology/Oncology Treatment, [place] [address] [place] [phone] Hannah, Chair 9 Hem Onc [facility] [address] [facility] [place] [address] 04/24/2024 6:00 PM EST Office Visit [facility] [address] [facility] [place] [address] Jairo Kingston MD [address] [place] [address] 06/27/2024 3:00 PM EDT Office Visit Hematology/Oncology [facility] [place] [address] [facility] [place] [phone] Michael Snyder MD [address] [facility] [place] [address] 07/30/2024 4:00 PM EDT Office Visit Nephrology, [facility] [address] [facility] [place] [address] Reggie Azevedo MD [address] [facility] [place] [address] Scheduled Procedures Name Priority Associated Diagnoses Date/Ti [...] 07/0 08/2023, 10/19/2023, Additional history exists Hgb 02/23/2025 [...] this encounter Medical Devices Implanted Type Area Licsw Device Identifier Shelf Expiration Date Model / Serial / Lot Graft Hemasheild 20mm [id number] - [id number] Implanted:Qty: 1 on 01/13/2009 at OR [facility] N/A: Abdomen MICROVASIVE [id number] / / [id number] Clip Resolution 360 Endo 235cm - [id number] Implanted:Qty: 1 on 12/10/2022 by Lacie England MD at OR [facility] [employer] : ENDOSCOPY [id number] 07/02/2025 [id number] / / [id number] Clip Resolution 360 Endo 235cm - [id number] Implanted:Qty: 1 on 12/10/2022 by Lacie England MD at OR [facility] [employer] : ENDOSCOPY [id number] 07/02/2025 [id number] / / [id number] Stent Biliary Adult L30mm Dia1 - [id number] Implanted:Qty: 1 on 10/26/2023 by Lacie England MD at OR [facility] COOK : JOHANNA COURTNEY [id number] 06/27/2026 [id number] / / [id number] documented as of this encounter Visit Diagnoses [...] Advanced care planning/counseling discussion Other specified counseling Need for prophylactic vaccination and inoculation against influenza- Primary documented in this encounter Advance Directives Documents on File Type Date Recorded Patient Certified Physical Therapist Assistant Expl anation Power of Bar Porter 07/30/2022 POWER OF A TTORNEY * Full [...] and were consensually agreed upon. Care Teams Mica Miner Blasting Relationship Specialty Start Date End Date Jairo Kingston MD [address] [place] [address] PCP - General 12/21/05 documented as of this encounter
--- OUTSIDE RECORDS SUMMARY | 2024-04-26 10:51 | External Medical Summary | Summary of Care ---
Author Name Unknown Organization [facility] Address [address] [place] [place] [address] Phone [phone] Care Team Providers Care Manager Disaster Recovery Name Role Phone Jairo Kingston MD Primary Care Provider [phone]- [phone] Encounter Details Date Type Department Care Team (Late st Contact Info) Description 02/23/2024 Population Health External Data Unspecified Department Allergies Active Allergy Reactions Criticality Noted Date Comments Pavan Inhibitors Other (Please comment) 0 Hyperkalemia documented as of this encounter (statuses as of 03/01/2024) Medications oxygen GAS Use 3 L/min(Oxygen) as [...] 0.1 % Nasal Solution (Astelin) Administer 1 [place] into nostril in the morning and 1 [place] before bedtime. 30 mL 1 01/12/20 23 [...] :COPD, group D, by GOLD 2017 classification ([facility]) Inhale 2 Puffs by mouth every 4 hours as needed for Wheezing. 54 g 6 4 11:38 AM EST 11/23/19 24 Active Furosemide 20 MG Oral Tablet (Lasix) TAKE 1 TABLET BY MOUTH twice DAILY 180 Tablet 1 4 1:55 PM EDT 12/08/19 Active Metoprolol Tartrate 25 MG Oral Tablet (Lopressor) Take 1 Tablet by mouth in the morning and 1 Tablet before bedtime. 180 Tablet 3 12/22/19 Active Klor-Con M10 10 MEQ Oral Tablet Extended Release TAKE 1 TABLET BY MOUTH ONCE A DAY ON TUESDAY, TUESDAY, AND TUESDAY ONLY. 11/17/19 Active Fluticasone Propionate 50 MCG/ACT Nasal Suspension (Flonase) Administer 2 Sprays into nostril daily as needed for Allergies. 48 g 3 01/30/20 24 Active Apixaban 2.5 MG Oral Tablet (Eliquis)Indication s:Recurrent cerebrovascular accidents (CVAs) (HCC) Take 1 Tablet by mouth in the morning and 1 Tablet before bedtime. 60 Tablet 11 4 3:27 PM EDT 01/30/20 Active Hospital, Clinic, or Other Facility Administered Medication Ordered Dose Route Frequency Start Date End Date Status Albuterol Sulfate (Proventil) (2.5 MG/3ML) 0.083% inhalation solution 2.5 mgIndications:COPD, group D, by GOLD 2017 classification ([facility]) 2.5 mg NEBULIZER PRN 10/03/2023 10/02/2024 Acti ve documented as of this encounter (statuses as of 03/01/2024) Active Problems Problem Noted Date Diagnosed Date [...] Wheezing Medication Regimen Class D - Inhaled Gtordzcdcmpyjn-FYBM-MQDL Combination Inhaler (Trellegy) Remote Patient Monitoring Vendor: [...] Assessment & Plan (11/11/2022 9:14 PM EDT): Brina, lopressor History of supraventricular tachycardia 11/12/19 Idiopathic chronic gout of foot without tophus 0 11/11/2022 Assessment & Plan (11/11/2022 9:15 PM EDT): Allopurinol assisted No new attacks GINNY on CPAP 11/11/2022 [...] as of this encounter (statuses as of 03/01/2024) Resolved Problems Problem Noted Date Diagnosed Date [...] as of this encounter (statuses as of 03/01/2024) Immunizations Name Administration Dates Next Due COVID-19 [...] 10/21/2023 6:05 PM FERT Aaron House RN documented as of this [...] Description 03/12/2024 11:00 AM EST [facility] [address] [place] [address] Heath Zhang PA-C [address] [place] [address] 03/23/2024 2:00 PM EST Hem/Onc Treatment Hematology/Oncology Treatment, [place] 200 [facility], [place] [phone] Hannah, Chair 4 Hem Onc Scen[address] [place], [place] [address] 03/28/2024 3:20 PM EST Office Visit Sleep Disorders Ctr [facility] [address] [facility] [place] [phone] Shanika Fitzgerald, [address] [place] [address] 04/02/2024 12:30 PM EST [facility] Visit [facility], [facility] 132 [facility] [place] [address] Jenifer Linder RN 132 [facility] [place] [address] 04/03/2024 10:30 AM EST PulmDiagnostic Pulmonary Function Lab, [facility] [address] [facility] [place] [address] [address], Pft [address] [facility] [place] [address] 04/03/2024 1:40 PM EST Office Visit Pulmonary Medicine, [facility] [address] [facility] [place] [address] Devin Hodge MD [address] [address] 04/20/2024 2:00 PM EST Hem/Onc Treatment Hematology/Oncology Treatment, [place] 200 [facility] [place] [phone] Hannah, Chair 9 Hem Onc Scen[address] [place], [place] [address] 04/24/2024 6:00 PM EST Office Visit [facility] [address] [place] [address] Jairo Kingston MD [address] [place] [address] 06/27/2024 3:00 PM EDT Office Visit Hematology/Oncology [facility] 200 [facility] [place] [phone] Michael Snyder MD 200 [facility] [place] [address] 07/30/2024 4:00 PM EDT Office Visit Nephrology, [facility] 200 [facility] [place] [address] Reggie Azevedo MD 200 [facility] [place] [address] Scheduled Procedures Name Priority Associated Diagnoses Date/Ti me COLONOSCOPY FLEXIBLE PROXIMAL DIAGNOSTIC Recall History of colon polyps Health Maintenance Due Date Last Done Comments Adult Wellness Visit 2014 *COPD SEVERITY VERIFIED BY PFT 08/28/2022 Albumin/Creatinine Ratio 10/08/2022 10/08/2021 COVID-19 Vaccine ( season) 2023 02/19/2021, 06/19/2020, 05/22/2020 GFR 06/28/2024 12/30/2023, 07, 10/25/2023, Additional history exists Depression Screening 10/09/2024 [...] this encounter Medical Devices Implanted Type Area Secretary Receptionist Device Identifier Shelf Expiration Date Model / Serial / Lot Graft Hemasheild 20mm [id number] - [id number] Implanted:Qty: 1 on 01/13/2009 at [place] [facility] N/A: Abdomen MICROVASIVE [id number] / / [id number] Clip Resolution 360 Endo 235cm - [id number] Implanted:Qty: 1 on 12/10/2022 by Lacie England MD at OR [facility] [employer] : ENDOSCOPY [id number] 07/02/2025 [id number] / / [id number] Clip Resolution 360 Endo 235cm - [id number] Implanted:Qty: 1 on 12/10/2022 by Lacie England MD at OR [facility] [employer] : ENDOSCOPY [id number] 07/02/2025 [id number] / / [id number] Stent Biliary Adult L30mm Dia1 - [id number] Implanted:Qty: 1 on 10/26/2023 by Lacie England MD at OR [facility] ROZ : JOHANNA COURTNEY [id number] 06/27/2026 [id number] / / [id number] documented as of this encounter Advance Directives Documents on File Type Date Recorded Patient Blowing Weasand Expl anation Power of President [employer] 07/30/2022 POWER OF A TTORNEY * Full [...] and were consensually agreed upon. Care Teams Manager Disaster Recovery Relationship Specialty Start Date End Date Jairo Kingston MD [address] [place] [address] PCP - General 12/21/05 documented as of this encounter
--- OUTSIDE RECORDS SUMMARY | 2024-04-26 10:51 | External Medical Summary | Summary of Care ---
Author Name Unknown Organization [facility] Address [address] [place] [address] Phone [phone] Care Team Providers Care Spanish Teacher Name Role Phone Jairo Kingston MD Primary Care Provider [phone] Reason for Visit * Reason Comments Infusion Venofer Encounter Details Date Type Department Care Team (Latest Contact Info) Description 01/27/2024 2:00 PM EDT Hem/Onc Treatment Hematology/Oncology Treatment, [address] [address] Hannah, Chair [address] On[address] [address] Iron deficiency anemia due to chronic blood loss*; CKD (chronic kidney disease) stage 4, GFR 15-29 ml/min ([facility]) Allergies Active Allergy Reactions Criticality Noted Date Comments Pavan Inhibitors Other (Please comment) 0 Hyperkalemia documented as of this encounter (statuses as of 02/29/2024) Medications oxygen GAS Use 3 L/min(Oxygen) as [...] 0.1 % Nasal Solution (Astelin) Administer 1 [place] into nostril in the morning and 1 [place] before bedtime. 30 mL 1 023 Active Docusate Sodium 100 MG Oral Capsule (Colace) Take 1 Capsule by mouth 2 times a day as needed for Constipation. 180 Capsule 3 024 Active Additional Information Patient taking differently:100 mg [...] BY MOUTH EVERY DAY 180 Each 1 02/14/20 24 4:10 PM EDT 024 Active Potassium Chloride ER 10 MEQ [...] s:COPD, group D, by GOLD 2017 classification ([facility]) Inhale 2 Puffs by mouth every 4 hours as needed for Wheezing. 54 g 6 02/28/20 24 11:38 AM EST Active Furosemide 20 MG Oral Tablet (Lasix) TAKE 1 TABLET BY MOUTH twice DAILY 180 Tablet 1 12/08/19 24 1:55 PM EDT Active Metoprolol Tartrate 25 MG Oral Tablet (Lopressor) Take 1 Tablet by mouth in the morning and 1 Tablet before bedtime. 180 Tablet 3 Active Klor-Con M10 10 MEQ Oral Tablet Extended Release TAKE 1 TABLET BY MOUTH ONCE A DAY ON TUESDAY, TUESDAY, AND TUESDAY ONLY. Active Ezetimibe 10 MG Oral Tablet (Zetia)Indications :Dyslipidemia, goal LDL below 70 TAKE ONE TABLET BY MOUTH EVERY MORNING 90 Tablet 3 10/31/19 24 2:37 PM EDT 023 2023 Fluticasone Propionate 50 MCG/ACT Nasal Suspension (Flonase) INSTILL 2 SPRAYS INTO EACH NOSTRIL EVERY DAY 48 g 3 01/26/20 24 7:49 AM EDT 024 2023 Discontinued predniSONE 20 MG Oral Tablet (Deltasone)Indicat ions:COPD, group D, by GOLD 2017 classification ([facility]) Take 2 Tablets by mouth in the morning. USE NEEDED FOR EXACERBATION. COPD RESCUE KIT. 10 Tablet 12/09/19 24 4:35 PM EDT 024 2023 Discontinued(R efill) Apixaban 2.5 MG Oral Tablet (Eliquis)Indicatio ns:Recurrent cerebrovascular accidents (CVAs) ([facility]) Take 1 Tablet by mouth in the morning and 1 Tablet before bedtime. 120 Tablet 1 024 2023 Discontinued(R efill) Doxycycline Hyclate 100 MG Oral TabletIndications: COPD, group D, by GOLD 2017 classification ([facility]) Take 1 Tablet by mouth in the morning and 1 Tablet before bedtime. For as needed Rescue kit use when directed to take for COPD exacerbation. 14 Tablet 024 2023 Discontinued(R carla) Hospital, Clinic, or Other Facility Administered Medication Ordered Dose Route Frequency Start Date End Date Status Albuterol Sulfate (Proventil) (2.5 MG/3ML) 0.083% inhalation solution 2.5 mgIndications:COPD, group D, by GOLD 2017 classification ([facility]) 2.5 mg NEBULIZER PRN 10/03/2023 10/02/2024 Acti ve documented as of this encounter (statuses as of 02/29/2024) Active Problems Problem Noted Date Diagnosed Date [...] Wheezing Medication Regimen Class D - Inhaled Lcasnxpkgjxmkb-RBOA-SCGY Combination Inhaler (Trellegy) Remote Patient Monitoring Vendor: [...] 07/2023 Chronic kidney disease, stage 4 (severe) Chronic respiratory failure, unsp w hypoxia or [...] & Plan (11/11/2022 9:15 PM EDT): 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 (Household - for ages [...] Sign Reading Time Taken Comments Blood Pressure 129/71 01/27/2024 2:48 PM EDT Pulse 81 01/27/2024 2:48 PM EDT Temperature - - Respiratory Rate 20 01/27/2024 2:48 PM EDT Oxygen Saturation 93% 01/27/2024 2:48 PM EDT Inhaled Oxygen Concentration - - [...] Aaron House RN documented in this encounter Nursing Notes * Nyla Barajas LPN - 01/27/2024 2:48 PM EDT 1355: Pt arrived for Venofer infusion. PIV in [...] Pt has no complaints at this time. 1540: Pt tolerated Venofer infusion well. PIV removed intact. Pt to return in 4 weeks. Discharged in stable condition. documented in this encounter Plan of Treatment Upcoming Encounters Date Type Department Care Team (Late st Contact Info) Description 03/12/2024 11:00 AM EST Home Visit [facility], [facility] [address] [place] [place] [address] Heath Zhang PA-C [address] [place] [place] [address] 03/23/2024 2:00 PM EST Hem/Onc Treatment Hematology/Oncology Treatment, [place] [address] [place] [phone] Hannah, Chair 4 Hem Onc [facility] [address] [place] [address] 03/28/2024 3:20 PM EST Office Visit Sleep Disorders Ctr [facility] [address] [place] [phone] Shanika Fitzgerald DO [address] [place] [place] [address] 04/02/2024 12:30 PM EST Home Visit [facility], [facility] [address] [address] Jenifer Linder, RN [address] [place] [address] 04/03/2024 10:30 AM EST PulmDiagnostic Pulmonary Function Lab, [facility] [address] [facility] [place] [address] [place] [place] [address] 04/03/2024 1:40 PM EST Office Visit Pulmonary Medicine, [facility] [address] [facility] [place] [address] Devin Hodge MD [address] [place] [address] 04/20/2024 2:00 PM EST Hem/Onc Treatment Hematology/Oncology Treatment, [place] [address] [place] [address] [place], Chair 9 Hem Onc [facility] [address] [facility] [place] [address] 04/24/2024 6:00 PM EST Office Visit [facility] [address] [place] [address] Jairo Kingston MD [address] [place] [address] 06/27/2024 3:00 PM EDT Office Visit Hematology/Oncology [facility] [place] [address] [facility] [place] [phone] iMchael Snyder MD [address] [facility] [place] [address] 07/30/2024 4:00 PM EDT Office Visit Nephrology, [facility] [address] [facility] [place] [address] Reggie Azevedo MD [address] [facility] [place] [address] Scheduled Procedures Name Priority Associated Diagnoses Date/Ti [...] this encounter Medical Devices Implanted Type Area Blanket Winder Operator Device Identifier Shelf Expiration Date Model / Serial / Lot Graft Hemasheild 20mm [id number] - [id number] Implanted:Qty: 1 on 01/13/2009 at OR [facility] N/A: Abdomen MICROVASIVE [id number] / / [id number] Clip Resolution 360 Endo 235cm - [id number] Implanted:Qty: 1 on 12/10/2022 by Lacie England MD at OR [facility] [employer] : ENDOSCOPY [id number] 07/02/2025 [id number] / / [id number] Clip Resolution 360 Endo 235cm - [id number] Implanted:Qty: 1 on 12/10/2022 by Lacie England MD at OR [facility] [employer] : ENDOSCOPY [id number] 07/02/2025 [id number] / / [id number] Stent Biliary Adult L30mm Dia1 - [id number] Implanted:Qty: 1 on 10/26/2023 by Lacie England MD at OR [facility] COOK : JOHANNA COURTNEY [id number] 06/27/2026 [id number] / / [id number] documented as of this encounter Procedures Procedure Name Priority Date/Time Associated Diagnosis Comments DIFFERENTIAL, AUTOMATED Routine 01/27/2024 1:46 PM EDT CKD (chronic kidney disease) stage 4, GFR 15-29 ml/min (HCC) CBC Routine 01/27/2024 1:46 PM EDT CKD (chronic kidney disease) stage 4, GFR 15-29 ml/min (HCC) CBC Routine 01/27/2024 1:46 PM EDT CKD (chronic kidney disease) stage 4, GFR 15-29 ml/min (HCC) documented in this encounter Results * (ABNORMAL) DIFFERENTIAL, AUTOMATED (01/27/2024 1:46 PM EDT) WBC 17.25(H) 4.00 - 10.80 K/uL 01/27/2024 2:09 PM EDT [facility] 56-02 Neutrophils % 96.2(H) 40.0 - 75.0 % 01/27/2024 2:09 PM EDT [facility] 56-02 Lymphocytes % 2.5(L) 18.0 - 42.0 % 01/27/2024 2:09 PM EDT [facility] 56-02 Monocytes % 1.2 1.0 - 11.0 % 01/27/2024 2:09 PM EDT [facility] 56-02 Eosinophils % 0.0 0.0 - 6.0 % 01/27/2024 2:09 PM EDT [facility] 56 Basophils % 0.1 0.0 - 2.0 % 01/27/2024 2:09 PM EDT [facility] 56 Absolute Neutrophils 16.60(H) 1.80 - 7.70 K/uL 01/27/2024 2:09 PM EDT [facility] 56 Absolute Lymphocytes 0.43(L) 1.00 - 4.80 K/ul 01/27/2024 2:09 PM EDT [facility] 56 Absolute Monocytes 0.20 0.00 - 1.10 K/uL 01/27/2024 2:09 PM EDT [facility] 56 Absolute Eosinophils 0.00 0.00 - 0.70 K/uL 01/27/2024 2:09 PM EDT [facility] Absolute Basophils 0.02 0.00 - 0.20 K/uL 01/27/2024 2:09 PM EDT [facility] Blood Venous blood specimen / Unknown Venipuncture / Unknown 01/27/2024 1:46 PM EDT 01/27/2024 2:02 PM EDT us Reggie Azevedo MD LAB BLOOD ORDERABLES Final Res ult [facility] [address] [place] [address] * (ABNORMAL) CBC (01/27/2024 1:46 PM EDT) WBC 17.25(H) 4.00 - 10.80 K/uL 01/27/2024 2:09 PM EDT [facility] 56 RBC 3.62 4.50 - 5.25 M/uL 01/27/2024 2:09 PM EDT [facility] 56 HGB 11.5(L) 14.0 - 16.8 g/dL 01/27/2024 2:09 PM EDT [facility] 56 HCT 36.6(L) 40.0 - 48.4 % 01/27/2024 2:09 PM EDT [facility] 56 MCV 101.1 82.0 - 99.5 fL 01/27/2024 2:09 PM EDT [facility] 56 MCH 31.8 27.0 - 34.0 pg 01/27/2024 2:09 PM EDT [place] [address] MCHC 31.4 32.0 - 36.0 g/dL 01/27/2024 2:09 PM EDT [facility] 56 RDW 17.4 11.5 - 15.5 % 01/27/2024 2:09 PM EDT [facility] 56 PLT 224 140 - 400 K/uL 01/27/2024 2:09 PM EDT [place] [address] MPV 10.7 6.6 - 11.1 fL 01/27/2024 2:09 PM EDT [facility] 56 Blood Venous blood specimen / Unknown Venipuncture / Unknown 01/27/2024 1:46 PM EDT 01/27/2024 2:02 PM EDT us Reggie Azevedo MD LAB BLOOD ORDERABLES Final Res ult [facility] [address] [place] [address] documented in this encounter Visit Diagnoses Diagnosis [...] 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 (chronic) CKD (chronic kidney disease) stage 4, GFR 15-29 ml/min (HCC) Chronic kidney disease, Stage IV (severe) documented in this encounter Administered Medications Inactive Administered Medications - up to 3 most recent administrations Medication Order MAR Action Action Date Dose Rate Site Iron Sucrose (Venofer) 300 mg in NSS 250 mL ivpb 300 mg, IV Piggyback, ONCE, 1 dose, On Tue01/27/24 at 1530, Administer over 90 MinutesIndications:Iron deficiency anemia due to chronic blood loss Start Infusion 01/27/2024 1:57 PM EDT 300 mg 180 mL/hr NSS infusion 500 mL, Intravenous, at 50 mL/hr, CONTINUOUS, Starting on Tue01/27/24 at 1500, Until Tue01/27/24 at 1952Indications:Iron deficiency anemia due to chronic blood loss Start Infusion 01/27/2024 1:57 PM EDT 500 mL 50 mL/hr documented in this encounter Advance Directives Documents on File Type Date Recorded Patient Utility Gelatin Maker Expl anation Power of Database Manager 07/30/2022 POWER OF A TTORNEY * Full [...] and were consensually agreed upon. Care Teams Spanish Teacher Relationship Specialty Start Date End Date Jairo Kingston MD [address] [facility] [address] PCP - General 12/21/05 documented as of this encounter
--- OUTSIDE RECORDS SUMMARY | 2024-04-26 10:52 | External Medical Summary ---
Author Name Unknown Address Unknown Organization [id number]:[facility] [place] [place] [address] Laboratory Report Ordering Provider Test Date Status LOLLY ALEGRIA 02/24/2024 13:50:08 Final Observation Date Value Abnormality Reference (Units ) Status WBC, Total 02/24/2024 13:50:08 6.37 4.00-10.8 0 (K/uL) Final RBC 02/24/2024 13:50:08 3.87 4.50-5.25 (M/uL) Final Hemoglobin 02/24/2024 13:50:08 12.3 Below low normal 14 .0-16.8 (g/dL) Final HCT 02/24/2024 13:50:08 39.6 Below low normal 40. 0-48.4 (%) Final MCV 02/24/2024 13:50:08 102.3 82.0-99.5 (fL) Final MCH 02/24/2024 13:50:08 31.8 27.0-34.0 (pg) Final MCHC 02/24/2024 13:50:08 31.1 32.0-36.0 (g/dL) Final RDW 02/24/2024 13:50:08 17.1 11.5-15.5 (%) Final Platelets 02/24/2024 13:50:08 217 140-400 (K /uL) Final MPV 02/24/2024 13:50:08 9.5 6.6-11.1 ( fL) Final Performing Location [facility] [place] [place] [address]
--- OUTSIDE RECORDS SUMMARY | 2024-04-26 10:52 | External Medical Summary ---
Author Name Unknown Address Unknown Organization [id number]:[facility] [place] [address] Laboratory Report Ordering Provider Test Date Status LOLLY ALEGRIA 02/24/2024 13:50:08 Final Observation Date Value Abnormality Reference (Units ) Status SYNC LEUKOCYTES IN BLOOD BY AUTOMATED COUNT 02/24/2024 13:50:08 6.37 4.00-10.80 (K/uL) Final Segs 02/24/2024 13:50:08 57.3 40.0-75.0 (%) Final Lymphs % 02/24/2024 13:50:08 17.3 Below low normal 18.0-42.0 (%) Final Monos 02/24/2024 13:50:08 14.1 Above high normal 1.0-11.0 (%) Final Eosinophils 02/24/2024 13:50:08 10.0 Above high normal 0.0-6.0 (%) Final Basos 02/24/2024 13:50:08 1.3 0.0-2.0 (%) Final Absolute Segs 02/24/2024 13:50:08 3.65 1.80-7.70 (K/uL) Final Lymphs, absolute 02/24/2024 13:50:08 1.10 1.00-4.80 (K/ul) Final Monos, Abs 02/24/2024 13:50:08 0.90 0.00-1.10 (K/uL) Final Eos, Abs 02/24/2024 13:50:08 0.64 0.00-0.70 (K/uL) Final Basos, Abs 02/24/2024 13:50:08 0.08 0.00-0.20 (K/uL) Final Performing Location [facility] [place] [address]
--- OUTSIDE RECORDS SUMMARY | 2024-04-26 10:52 | External Medical Summary | Summary of Care ---
Author Name Unknown Organization [facility] Address [address] [place] [address] Phone [phone] Care Team Providers Care Continuous Improvement Black Belt Name Role Phone Jairo Kingston MD Primary Care Provider [phone] Reason for Visit * Reason Comments Infusion Venofer Encounter Details Date Type Department Care Team (Latest Contact Info) Description 12/30/2023 2:00 PM EDT Hem/Onc Treatment Hematology/Oncolog y Treatment, [address] [address] Hannah, Chair 5 Hem Onc [address] [address] Iron deficiency anemia due to chronic blood loss*; CKD (chronic kidney disease) stage 4, GFR 15-29 ml/min (HCC); Monoclonal paraproteinemia Allergies Active Allergy Reactions Criticality Noted Date Comments Pavan Inhibitors Other (Please comment) 0 Hyperkalemia documented as of this encounter (statuses as of 01/30/2024) Medications Medication Sig Dispensed Refills Start Date [...] at noon. 90 Tablet 3 3 Active Azelastine HCl 0.1 % Nasal Solution (Astelin) Administer 1 [place] into nostril in the morning and 1 [place] before bedtime. 30 mL 1 3 Active Ezetimibe 10 MG Oral Tablet (Zetia)Indications:D yslipidemia, goal LDL below 70 TAKE ONE TABLET BY MOUTH EVERY MORNING 90 Tablet 3 3 02/04/20 24 Active Docusate Sodium 100 MG Oral Capsule (Colace) Take 1 Capsule by mouth 2 times a day as needed for Constipation. 180 Capsule 3 4 Active Additional Information Patient taking differently:100 mg OralBID (.AM/PM), Reported on 10/28/2023 Pantoprazole Sodium 40 MG Oral Tablet Delayed Release (Protonix) Take 1 Tablet by mouth in the morning and 1 Tablet before bedtime. 180 Tablet 3 4 Active Allopurinol 300 MG Oral Tablet (Zyloprim)Indication s:Gout TAKE ONE-HALF TABLET BY MOUTH EVERY DAY 45 Tablet 2 4 05/31/19 25 Active Ipratropium-Albutero l 0.5-2.5 (3) MG/3ML Inhalation [...] 180 Each 1 4 Active Potassium Chloride ER 10 MEQ [...] HFA 108 (90 Base) MCG/ACT Inhalation Aerosol SolutionIndications: COPD, group D, by GOLD 2017 classification ([facility]) Inhale 2 Puffs by mouth every 4 hours as needed for Wheezing. 54 g 6 4 Active Furosemide 20 MG Oral Tablet (Lasix) TAKE 1 TABLET BY MOUTH twice DAILY 180 Tablet 1 4 Active predniSONE 20 MG Oral Tablet (Deltasone)Indicatio ns:COPD, group D, by GOLD 2017 classification ([facility]) Take 2 Tablets by mouth in the morning. USE NEEDED FOR EXACERBATION. COPD RESCUE KIT. 10 Tablet 4 Active Metoprolol Tartrate 25 MG Oral Tablet (Lopressor) Take 1 Tablet by mouth in the morning and 1 Tablet before bedtime. 180 Tablet 3 4 Active Apixaban 2.5 MG Oral Tablet (Eliquis)Indications :Recurrent cerebrovascular accidents (CVAs) ([facility]) Take 1 Tablet by mouth in the morning and 1 Tablet before bedtime. 180 Tablet 1 4 01/04/20 24 Discontinu ed(Refill) Doxycycline Hyclate 100 MG Oral TabletIndications:CO PD, group D, by GOLD 2017 classification ([facility]) Take 1 Tablet by mouth in the morning and 1 Tablet before bedtime. For as needed Rescue kit use when directed to take for COPD exacerbation. 14 Tablet 4 01/25/20 24 Discontinu ed(Refill) Hospital, Clinic, or Other Facility Administered Medication Ordered Dose Route Frequency Start Date End Date Status Albuterol Sulfate (Proventil) (2.5 MG/3ML) 0.083% inhalation solution 2.5 mgIndications:COPD, group D, by GOLD 2017 classification ([facility]) 2.5 mg NEBULIZER PRN 10/03/2023 10/02/2024 Acti ve documented as of this encounter (statuses as of 01/30/2024) Active Problems Problem Noted Date Diagnosed Date Malnutrition of moderate degree 10/22/2023 SBO (small bowel obstruction) 10/21/2023 MAGDALENO (acute kidney injury) 10/21/2023 Chronic hypoxic respiratory failure, on home oxy gen therapy 10/21/2023 Last Assessment & Plan: "RED FLAG" COPD symptoms: Increased dyspnea on exertion Cough Wheezing Medication Regimen Class D - Inhaled [id number] Combination Inhaler (Trellegy) Remote Patient Monitoring Vendor: [...] on CPAP 11/11/2022 Last Assessment & Plan: Continue CPAP with o2 Anemia associated with chronic renal failure Overview: [...] blood loss 05/03/2022 Last Assessment & Plan: Continue f/u with hematology Hemoglobin Results: Lab Results Component Value Date/Time HGB 11.1 (L) 12/30/2023 01:53 PM HGB 10.7 (L) 12/02/2023 01:54 PM HGB 9.6 (L) 11/04/2023 02:04 PM HGB 6.4 (LL) 12/08/2022 12:43 PM HGB 11.1 (A) 06/10/2020 12:00 AM HGB 12.1 (L) 02/08/2020 09:48 AM HGB 13.4 (L) 05/24/2019 09:33 AM HGB 14.8 09/28/2018 10:41 AM Hyperparathyroidism 03/04/2022 Last Assessment & Plan: Latest [...] 12/14/2016 Dyslipidemia, goal LDL below 100 03/27/2009 Overview: Per Lipid Taxonomy. Last Assessment & Plan: Continue atorvastatin S/P Lumbar disc excision, fusion w/ Implants HTN, goal below 140/90 Last Assessment & Plan: BP at goal. -continue amlodipine, metoprolol documented as of this encounter (statuses as of 01/30/2024) Resolved Problems Problem Noted Date Diagnosed Date [...] as of this encounter (statuses as of 01/30/2024) Immunizations Name Administration Dates Next Due COVID-19 [...] 08/20/2021 Hunger Vital Sign Answer Date Recorded Within [...] No 12/12/2023 Does the household have a [facility] source of income? (Household - for ages [...] Sign Reading Time Taken Comments Blood Pressure 160/83 12/30/2023 2:57 PM EDT Pulse 71 12/30/2023 2:57 PM EDT Temperature 36.5 C (97.7 F) 12/30/2023 2:57 PM ED T Respiratory Rate 18 12/30/2023 2:57 PM EDT Oxygen Saturation 92% 12/30/2023 2:57 PM EDT Inhaled Oxygen Concentration - - Weight - - Height - - Body Mass Index - - documented in this encounter Functional Status Functional Status Response Date of Assess ment Are you deaf or do you have serious difficulty hearing? 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 (5 years old or older) Yes 10/21/2023 Do you have difficulty dress ing or bathing? (5 years old or older) No 10/21/2023 Because of a physical, menta l, or emotional condition, do you have difficulty doing errands alone such as visiting a doctor s office or shopping? (15 years old or older) Yes 10/21/2023 Cognitive Status Response Date of Assessm ent Because of a physical, menta l, or emotional condition, do you have serious difficulty concentrating, remembering, or making decisions? (5 years old or older) No 10/21/2023 documented as of this encounter Nursing Notes * Nyla Barajas LPN - 12/30/2023 2:58 PM EDT 1405: Pt arrived for Venofer infusion. PIV in RFA. Pt tolerated well. VSS. Labs drawn with IV start. Patient instructed on use of heat and massage functions where applicable. Patient shown how to operate the heat function of the chair and to alert nursing staff if the chair feels too warm. Patient instructed on the risk of potential watson while using the heat function. No complaints at this time. 1555: Pt tolerated Venofer infusion well. PIV removed intact. Pts HGB 11.1. To return in 4 weeks. Discharged in stable condition. documented in this encounter Miscellaneous Notes * Result Encounter Note - Es Rodríguez MD - 01/03/2024 4:39 PM EDT Kidney labs stable; continue same. Covering for Dr Azevedo. documented in this encounter Plan of Treatment Upcoming Encounters Date Type Department Care Team (Late st Contact Info) Description 02/23/2024 3:00 PM EST [facility] Visit [facility], [facility] [address] [place] [address] Heath Zhang PA-C [address] [place] [address] 02/24/2024 2:00 PM EST Hem/Onc Treatment Hematology/Oncology Treatment, [place] [address] [facility], [place] [address] Hannah, Chair 3 Hem Onc [place] [address] [place] [address] 02/27/2024 12:30 PM EST Home Visit [facility], [facility] [address] [place] [address] Jenifer Linder RN [address] [place] [address] 03/28/2024 3:20 PM EST Office Visit [facility] [place] [phone] Shanika Fitzgerald, [address] [place] [address] 04/03/2024 10:30 AM EST PulmDiagnostic Pulmonary Function Lab, [facility] [address] [facility] [place] [address] [place], [address] [facility] [place] [address] 04/03/2024 11:00 AM EST PulmDiagnostic Pulmonary Function Lab, [facility] [address] [place] [address] [place], [address] [facility] [place] [address] 04/03/2024 1:40 PM EST Office Visit Pulmonary Medicine, [facility] [address] [place] [address] Devin Hodge MD [address] [place] [address] 04/24/2024 6:00 PM EST Office Visit Family [facility] [address] [place] [phone] Jairo Kingston MD [address] [place] [address] 06/27/2024 2:45 PM EDT Office Visit Hematology/Oncology [facility] [place] [address] [facility] [place] [phone] Michael Snyder MD [address] [facility] [place] [address] 07/30/2024 4:00 PM EDT Office Visit Nephrology, [facility] [address] [facility] [place] [address] Reggie Azevedo MD [address] [facility] [place] [address] Scheduled Procedures Name Priority Associated Diagnoses Date/Ti me COLONOSCOPY FLEXIBLE PROXIMAL DIAGNOSTIC Recall History of colon polyps Health Maintenance Due Date Last Done Comments Adult Wellness Visit 2014 *COPD SEVERITY VERIFIED BY PFT 08/28/2022 Albumin/Creatinine Ratio 10/08/2022 10/08/2021 COVID-19 Vaccine ( season) 2023 02/19/2021, 06/19/2020, 05/22/2020 Influenza Vaccine (FLU shot) (#1) 2023 01/10/2023, 03/04/2022, 01/15/2021, Additional history exists GFR 06/28/2024 12/30/2023, 10/16, 10/25/2023, Additional history exists Depression Screening 10/09/2024 10/10/2023 O2 ASSESSMENT COMPLETED IN PAST YEAR FOR COPD 10/25/2024 10/26/2023 Nephrology Referral 12/12/2024 12/13/2023 PTH 12/29/2024 12/30/2023, 110 10/2022, 12/31/2021, Additional history exists Phosphate 12/29/2024 12/30/2023, 07/0 09/2023, 02/22/2023, Additional history exists AAA Monitoring 01/18/2025 01/19/2024, 07/0 08/2023, 10/19/2023, Additional history exists Hgb 01/26/2025 01/27/2024, 12/18, 12/30/2023, Additional history exists Colonoscopy 01/02/2026 01/02/2021, 07/17, 08/02/2017, Additional history exists DTap/Tdap Vaccines (4 - Td or Tdap) 03/04/2032 03/04/2022, 12/14/2011, 06/11/2002 Pneumococcal Vaccine: 65+ Years Completed 06/12/2015, 06/10/2014 RETIRED - COLONOSCOPY-EVERY 5 YRS AGES 18-100 Discontinued 01/02/2021, 08/02/2017, 08/02/2017, Additional history exists Alpha-1 Antitrypsin Completed 01/07/2023 HPV (Gardasil) Vaccine Aged Out No lo nger eligible based on patient's age to complete this topic Hepatitis B Vaccine Aged Out No longe r eligible based on patient's age to complete this topic MENINGOCOCCAL (MENACTRA/MENVEO) Aged Out No longer eligible based on patient's age to complete this topic Zoster Vaccines Discontinued documented as of this encounter Medical Devices Implanted Type Area Rolling Chair Pusher Device Identifier Shelf Expiration Date Model / Serial / Lot Graft Hemasheild 20mm [id number] - [id number] Implanted:Qty: 1 on 01/13/2009 at OR [facility] N/A: Abdomen MICROVASIVE [id number] / / [id number] Clip Resolution 360 Endo 235cm - [id number] Implanted:Qty: 1 on 12/10/2022 by Lacie England MD at OR [facility] [employer] : ENDOSCOPY [id number] 07/02/2025 [id number] / / [id number] Clip Resolution 360 Endo 235cm - [id number] Implanted:Qty: 1 on 12/10/2022 by Lacie England MD at OR [facility] [employer] : ENDOSCOPY [id number] 07/02/2025 [id number] / / [id number] Stent Biliary Adult L30mm Dia1 - [id number] Implanted:Qty: 1 on 10/26/2023 by Lacie England MD at OR [facility] : JOHANNA COURTNEY [id number] 06/27/2026 [id number] / / [id number] documented as of this encounter Procedures Procedure Name Priority Date/Time Associated Diagnosis Comments PROTEIN/ CREATININE RATIO, URINE Routine 12/30/2023 3:54 PM EDT CKD (chronic kidney disease) stage 4, GFR 15-29 ml/min (HCC) URINALYSIS WITH MICROSCOPIC EXAM Routine 12/30/2023 3:54 PM EDT CKD (chronic kidney disease) stage 4, GFR 15-29 ml/min (HCC) 25-HYDROXY VITAMIN D Routine 12/30/2023 2:38 PM EDT CKD (chronic kidney disease) stage 4, GFR 15-29 ml/min (HCC) SERUM PROTEIN ELECTROPHORESIS REFLEX PROFILE Routine 12/30/2023 2:38 PM EDT Monoclonal paraproteinemia IMMUNOGLOBULIN QUANTITATIVE Routine 12/30/2023 2:38 PM EDT Monoclonal paraproteinemia SERUM FREE LIGHT CHAINS Routine 12/30/2023 2:38 PM EDT Monoclonal paraproteinemia IRON SCREEN, INCLUDING TIBC STAT 12/30/2023 2:38 PM EDT Iron deficiency anemia due to chronic blood loss PTH Routine 12/30/2023 2:38 PM EDT CKD (chronic kidney disease) stage 4, GFR 15-29 ml/min (HCC) MAGNESIUM Routine 12/30/2023 2:38 PM EDT CKD (chronic kidney disease) stage 4, GFR 15-29 ml/min (HCC) FERRITIN STAT 12/30/2023 2:38 PM EDT Iron deficiency anemia due to chronic blood loss DIFFERENTIAL, AUTOMATED STAT 12/30/2023 1:53 PM EDT Iron deficiency anemia due to chronic blood loss RENAL FUNCTION PANEL Routine 12/30/2023 1:53 PM EDT CKD (chronic kidney disease) stage 4, GFR 15-29 ml/min (HCC) CBC STAT 12/30/2023 1:53 PM EDT Iron deficiency anemia due to chronic blood loss CBC STAT 12/30/2023 1:53 PM EDT Iron deficiency anemia due to chronic blood loss documented in this encounter Results * (ABNORMAL) URINALYSIS WITH MICROSCOPIC EXAM (12/30/2023 3:54 PM EDT) Color, Urine Colorless Colorless, Light Yellow, Yellow, Dark Yellow 12/30/2023 10:25 PM EDT LABORATORY C Clarity, Urine Clear Clear 12/30/2023 10:25 PM EDT LABORATORY [facility] Glucose, Urine Negative Negative mg/dL 12/30/2023 10:25 PM EDT LABORATORY [facility] Bilirubin, Urine Negative Negative 12/30/2023 10:25 PM EDT LABORATORY C Ketone, Urine Negative Negative mg/dL 12/30/2023 10:25 PM EDT LABORATORY [facility] Specific [place], Urine 1.012 1.003 - 1.030 12/30/2023 10:25 PM EDT LABORATORY [facility] Blood, Urine Negative Negative 12/30/2023 10:25 PM EDT LABORATORY [facility] pH, Urine 6.0 5.0 - 7.5 Units 12/30/2023 10:25 PM EDT LABORATORY [facility] Protein, Urine Trace(A) Negative mg/dL 12/30/2023 10:25 PM EDT LABORATORY [facility] Urobilinogen, Urine Normal Normal mg/dL 12/30/2023 10:25 PM EDT LABORATORY [facility] Nitrite, Urine Negative Negative 12/30/2023 10:25 PM EDT LABORATORY [facility] Esterase, Urine Negative Negative 12/30/2023 10:25 PM EDT LABORATORY [facility] RBC, Urine 0-2 0 - 2 /HPF 12/30/2023 10:25 PM EDT LABORATORY [facility] WBC, Urine 0-2 0 - 2 /HPF 12/30/2023 10:25 PM EDT LABORATORY [facility] Bacteria, Urine 0-25 0 - 25 /HPF 12/30/2023 10:25 PM EDT LABORATORY [facility] Urine Urine specimen obtained by clean catch procedure / Unknown Non-blood Collection / Unknown 12/30/2023 3:54 PM EDT 12/30/2023 4:11 PM EDT Reggie Azevedo MD LAB URINE ORDERABLES Performing Organization Address City/[facility] Co de Phone Number LABORATORY [facility] [address] [place] [address] * (ABNORMAL) PROTEIN/ CREATININE RATIO, URINE (12/30/2023 3:54 PM EDT) Protein/ Creatinine Ratio, Urine 806(H) <150 mg/g 12/30/2023 11:45 PM EDT LABORATORY C Protein, Random Urine 29 mg/dL 12/30/2023 11:45 PM EDT LABORATORY [facility] Creatinine, Random Urine 36 mg/dL 12/30/2023 11:45 PM EDT LABORATORY [facility] Urine Urine specimen obtained by clean catch procedure / Unknown Non-blood Collection / Unknown 12/30/2023 3:54 PM EDT 12/30/2023 4:11 PM EDT Narrative LABORATORY [facility] - 12/30/2023 11:45 PM EDT Normal: <150 mg/g creatinine High: 150-500 mg/g creatinine Very High: >500 mg/g creatinine Nephrotic: >3000 mg/g creatinine Reggie Azevedo MD LAB URINE ORDERABLES Performing Organization Address [facility]/ZIP Co de Phone Number LABORATORY [facility] [address] [place] [address] * (ABNORMAL) IMMUNOGLOBULIN QUANTITATIVE (12/30/2023 2:38 PM EDT) IgG 979 700 - 1,600 mg/dL 12/31/2023 1:05 AM EDT LABORATORY [facility] IgA 264 70 - 400 mg/dL 12/31/2023 1:05 AM EDT LABORATORY [facility] IgM 247(H) 40 - 230 mg/dL 12/31/2023 1:05 AM EDT LABORATORY GM Blood Venous blood specimen / Unknown Venipuncture / Unknown 12/30/2023 2:38 PM EDT 12/30/2023 2:42 PM EDT Michael Snyder MD LAB BLOOD ORDERABLES LABORATORY [facility] [address] [place] [address] * (ABNORMAL) SERUM PROTEIN ELECTROPHORESIS REFLEX PROFILE (12/30/2023 2:38 PM EDT) Pathologist [facility] Normal/Abnormal Abnormal(A) Normal 01/02/20 4:24 PM EDT LABORATORY [facility] Protein 6.4 6.0 - 8.3 g/dL 01/02/2024 4:24 PM EDT LABORATORY [facility] Albumin 3.25(L) 3.30 - 4.40 g/dL 01/02/2024 4:24 PM EDT LABORATORY [facility] Alpha-1 Globulin 0.18 0.10 - 0.30 g/dL 01/02/2024 4:24 PM EDT LABORATORY [facility] Alpha-2 Globulin 1.03(H) 0.60 - 1.00 g/dL 01/02/2024 4:24 PM EDT LABORATORY [facility] Beta-Globulin 0.89 0.80 - 1.30 g/dL 01/02/2024 4:24 PM EDT LABORATORY [facility] Gamma-Globulin 1.05 0.70 - 1.70 g/dL 01/02/2024 4:24 PM EDT LABORATORY [facility] Electrophoresis Interpretation Abnormal. A paraprotein is present that has been previously identified as a monoclonal IgM lambda. Paraprotein concentration is detectable, but less than 0.5 g/dL, unable to be accurately quantified by this method. 01/02/2024 4:24 PM EDT LABORATORY [facility] Blood Venous blood specimen / Unknown Venipuncture / Unknown 12/30/2023 2:38 PM EDT 12/30/2023 2:42 PM EDT Michael Snyder MD LAB BLOOD ORDERABLES Performing Organization Address City/[facility]/ZIP Co de Phone Number LABORATORY [facility] [address] [place] [address] * (ABNORMAL) SERUM FREE LIGHT CHAINS (12/30/2023 2:38 PM EDT) [place] Free Light Chains, Serum 55.16(H) 3.30 - 19.40 mg/L 12/31/2023 3:20 PM EDT LABORATORY [facility] Lambda Free Light Chains, Serum 64.67(H) 5.71 - 26.30 mg/L 12/31/2023 3:20 PM EDT LABORATORY [facility] [place] Lambda Free Light Chains Ratio 0.85 0.26 - 1.65 12/31/2023 3:20 PM EDT LABORATORY [facility] Blood Venous blood specimen / Unknown Venipuncture / Unknown 12/30/2023 2:38 PM EDT 12/30/2023 2:42 PM EDT Michael Snyder MD LAB BLOOD ORDERABLES Performing Organization Address [facility] de Phone Number LABORATORY [facility] [address] [place] [address] * MAGNESIUM (12/30/2023 2:38 PM EDT) Pathologist [facility] Magnesium 1.9 1.5 - 2.6 mg/dL 12/31/2023 1:05 AM EDT LABORATORY [facility] Blood Venous blood specimen / Unknown Venipuncture / Unknown 12/30/2023 2:38 PM EDT 12/30/2023 2:42 PM EDT Reggie Azevedo MD LAB BLOOD ORDERABLES Performing Organization Address City/[facility]/ZIP Co de Phone Number LABORATORY [facility] [address] [place] [address] * 25-HYDROXY VITAMIN D (12/30/2023 2:38 PM EDT) 25-Hydroxy Vitamin D 35 >19 ng/mL 12/31/2023 1:39 AM EDT LABORATORY [facility] Blood Venous blood specimen / Unknown Venipuncture / Unknown 12/30/2023 2:38 PM EDT 12/30/2023 2:42 PM EDT Narrative LABORATORY [facility] - 12/31/2023 1:39 AM EDT Deficient: <20 ng/mL Insufficient: 20-29 ng/mL Recommended/Optimum:30-50 ng/mL Vitamin D intoxication is rare. If suspicious of Vitamin D toxicity, evaluation of serum Calcium and PTH is recommended. Reggie Azevedo MD LAB BLOOD ORDERABLES Performing Organization Address City/[facility]/ZIP Co de Phone Number LABORATORY [facility] [address] [place] [address] * (ABNORMAL) PTH (12/30/2023 2:38 PM EDT) PTH 88(H) 15 - 65 pg/mL 12/31/2023 1:39 AM EDT LABORATORY [facility] Blood Venous blood specimen / Unknown Venipuncture / Unknown 12/30/2023 2:38 PM EDT 12/30/2023 2:42 PM EDT Reggie Azevedo MD LAB BLOOD ORDERABLES LABORATORY [facility] [address] [place] [address] * (ABNORMAL) IRON SCREEN, INCLUDING TIBC (12/30/2023 2:38 PM EDT) Iron 42(L) 45 - 176 ug/dL 12/30/2023 10:23 PM EDT LABORATORY [facility] Iron Binding Capacity 317 250 - 425 ug/dL 12/30/2023 10:23 PM EDT LABORATORY [facility] Transferrin Saturation Percent 13(L) 15 - 55 % 12/30/2023 10:23 PM EDT LABORATORY [facility] Blood Venous blood specimen / Unknown Venipuncture / Unknown 12/30/2023 2:38 PM EDT 12/30/2023 2:42 PM EDT Sheri Hanson YARA LAB BLOOD ORDER [place] LABORATORY [facility] [address] [place] [address] * FERRITIN (12/30/2023 2:38 PM EDT) Pathologist [facility] Ferritin 92 30 - 400 ng/mL 12/31/2023 1:08 AM EDT LABORATORY [facility] Blood Venous blood specimen / Unknown Venipuncture / Unknown 12/30/2023 2:38 PM EDT 12/30/2023 2:42 PM EDT Sheri Heredia Valentin [facility] LAB BLOOD ORDER [place] Performing Organization Address [facility] Co de Phone Number LABORATORY [facility] [address] [place] [address] * (ABNORMAL) DIFFERENTIAL, AUTOMATED (12/30/2023 1:53 PM EDT) Pathologist [facility] WBC 9.15 4.00 - 10.80 K/uL 12/30/2023 2:33 PM EDT [facility] 56-02 Neutrophils % 75.4(H) 40.0 - 75.0 % 12/30/2023 2:33 PM EDT LABORATORY [place] 56-02 Lymphocytes % 12.1(L) 18.0 - 42.0 % 12/30/2023 2:33 PM EDT LABORATORY [place] 56-02 Monocytes % 11.5(H) 1.0 - 11.0 % 12/30/2023 2:33 PM EDT LABORATORY [place] 56-02 Eosinophils % 0.7 0.0 - 6.0 % 12/30/2023 2:33 PM EDT LABORATORY [place] 56-02 Basophils % 0.3 0.0 - 2.0 % 12/30/2023 2:33 PM EDT LABORATORY [place] 56-02 Absolute Neutrophils 6.90 1.80 - 7.70 K/uL 12/30/2023 2:33 PM EDT [facility] 56 Absolute Lymphocytes 1.11 1.00 - 4.80 K/ul 12/30/2023 2:33 PM EDT [facility] 56 Absolute Monocytes 1.05 0.00 - 1.10 K/uL 12/30/2023 2:33 PM EDT [facility] 56 Absolute Eosinophils 0.06 0.00 - 0.70 K/uL 12/30/2023 2:33 PM EDT [facility] 56 Absolute Basophils 0.03 0.00 - 0.20 K/uL 12/30/2023 2:33 PM EDT [facility] 56 Blood Venous blood specimen / Unknown Venipuncture / Unknown 12/30/2023 1:53 PM EDT 12/30/2023 2:22 PM EDT Sheri [facility] LAB BLOOD ORDER [place] [address] [place] [address] * (ABNORMAL) CBC (12/30/2023 1:53 PM EDT) WBC 9.15 4.00 - 10.80 K/uL 12/30/2023 2:33 PM EDT [facility] 56 RBC 3.53 4.50 - 5.25 M/uL 12/30/2023 2:33 PM EDT [facility] 56 HGB 11.1(L) 14.0 - 16.8 g/dL 12/30/2023 2:33 PM EDT [facility] 56 HCT 35.2(L) 40.0 - 48.4 % 12/30/2023 2:33 PM EDT [facility] 56 MCV 99.7 82.0 - 99.5 fL 12/30/2023 2:33 PM EDT [facility] 56 MCH 31.4 27.0 - 34.0 pg 12/30/2023 2:33 PM EDT [facility] 56 MCHC 31.5 32.0 - 36.0 g/dL 12/30/2023 2:33 PM EDT [facility] 56 RDW 17.0 11.5 - 15.5 % 12/30/2023 2:33 PM EDT [facility] 56 PLT 139(L) 140 - 400 K/uL 12/30/2023 2:33 PM EDT [address] MPV 10.9 6.6 - 11.1 fL 12/30/2023 2:33 PM EDT [facility] 56 Blood Venous blood specimen / Unknown Venipuncture / Unknown 12/30/2023 1:53 PM EDT 12/30/2023 2:22 PM EDT Sheri [facility] LAB BLOOD ORDER [place] [address] [place] [id number] * (ABNORMAL) RENAL FUNCTION PANEL (12/30/2023 1:53 PM EDT) BUN 60(H) 6 - 20 mg/dL 12/30/2023 2:43 PM EDT [address] CREATININE 2.0(H) 0.6 - 1.2 mg/dL 12/30/2023 2:43 PM EDT [address] EGFR 34(L) >=60 mL/min 12/30/2023 2:43 PM EDT [facility] 56 Comment:eGFR is calculated b ased on the CKD-EPI 2020 equation. SODIUM 139 135 - 146 mmol/L 12/30/2023 2:43 PM EDT [place] [address] POTASSIUM 4.0 3.5 - 5.1 mmol/L 12/30/2023 2:43 PM EDT [facility] 56 CHLORIDE 104 98 - 107 mmol/L 12/30/2023 2:43 PM EDT [facility] 56 CO2 21(L) 22 - 32 mmol/L 12/30/2023 2:43 PM EDT [place] [address] ANION GAP 14 7 - 15 mmol/L 12/30/2023 2:43 PM EDT [facility] 56 GLUCOSE 105 70 - 120 mg/dL 12/30/2023 2:43 PM EDT [facility] 56-02 CALCIUM 9.5 8.4 - 10.2 mg/dL 12/30/2023 2:43 PM EDT [facility] 56-02 Albumin 3.8 3.8 - 5.0 g/dL 12/30/2023 2:43 PM EDT [facility] 56-02 Phosphorus 3.2 2.5 - 4.8 mg/dL 12/30/2023 2:43 PM EDT [facility] 56-02 Blood Venous blood specimen / Unknown Venipuncture / Unknown 12/30/2023 1:53 PM EDT 12/30/2023 2:22 PM EDT Reggie Azevedo MD LAB BLOOD ORDERABLES [facility] [address] [place] [address] documented in this encounter Visit Diagnoses Diagnosis Iron deficiency anemia due to chronic blood loss- Primary Iron 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 (chronic) CKD (chronic kidney disease) stage 4, GFR 15-29 ml/min (HCC) Chronic kidney disease, Stage IV (severe) Monoclonal paraproteinemia documented in this encounter Administered Medications Inactive Administered Medications - up to 3 most recent administrations Medication Order MAR Action Action Date Dose Rate Site Iron Sucrose (Venofer) 300 mg in NSS 250 mL ivpb 300 mg, IV Piggyback, ONCE, 1 dose, On Tue12/30/23 at 1530, Administer over 90 Minutes Start Infusion 12/30/2023 2:07 PM EDT 300 mg 180 mL/hr NSS infusion 500 mL, Intravenous, at 50 mL/hr, CONTINUOUS, Starting on Tue12/30/23 at 1500, Until Tue12/30/23 at 2002 Start Infusion 12/30/2023 2:07 PM EDT 500 mL 50 mL/hr documented in this encounter Advance Directives Documents on File Type Date Recorded Patient Tire Retreader Expl anation Power of Polygraph Technician 07/30/2022 POWER OF A TTORNEY * Full [...] and were consensually agreed upon. Care Teams Continuous Improvement Black Belt Relationship Specialty Start Date End Date Jairo Kingston MD [address] [facility] [place] [address] PCP - General 12/21/05 documented as of this encounter
--- OUTSIDE RECORDS SUMMARY | 2024-04-26 10:52 | External Medical Summary | Summary of Care ---
Author Name Unknown Organization [facility] Address [address] [place] [address] Phone [phone] Care Team Providers Care Cable Braider Name Role Phone Jairo Kingston MD Primary Care Provider [phone]- [phone] Reason for Visit * Reason Onset Date Comments STAIR Lung Nodule 02/08/2024 Encounter Details Date Type Department Care Team (Late st Contact Info) Description 02/08/2024 Telephone [facility] LUNG NODULE [address] [place] [address] Program, Stair [address] [place] [address] [facility] Lung Nodule Allergies Active Allergy Reactions Criticality Noted Date Comments Pavan Inhibitors Other (Please comment) 0 Hyperkalemia documented as of this encounter (statuses as of 02/08/2024) Medications Medication Sig Dispensed Refills Start Date [...] at noon. 90 Tablet 3 12/14/2022 Active Azelastine HCl 0.1 % Nasal Solution (Astelin) Administer 1 [place] into nostril in the morning and 1 [place] before bedtime. 30 mL 1 01/11/2023 Active Docusate Sodium 100 MG Oral Capsule (Colace) Take 1 Capsule by mouth 2 times a day as needed for Constipation. 180 Capsule 3 04/20/2023 Active Additional Information Patient taking differently:100 mg OralBID (.AM/PM), Reported on 10/28/2023 Pantoprazole Sodium 40 MG Oral Tablet Delayed Release (Protonix) Take 1 Tablet by mouth in the morning and 1 Tablet before bedtime. 180 Tablet 3 04/20/2023 Active Allopurinol 300 MG Oral Tablet (Zyloprim)Indication s:Gout TAKE ONE-HALF TABLET BY MOUTH EVERY DAY 45 Tablet 2 06/01/2023 Active Ipratropium-Albutero l 0.5-2.5 (3) MG/3ML Inhalation Solution (Duoneb) Inhale 3 mL by mouth every 6 hours as needed (sob). 360 mL 5 07/27/2023 Active Trelegy Ellipta 100-62.5-25 MCG/ACT Aerosol Powder Breath Activated (Fluticasone-Umeclid inium-Vilanterol) INHALE ONE PUFF BY MOUTH EVERY DAY 180 Each 1 08/02/2023 Active Potassium Chloride ER 10 MEQ Oral [...] COPD, group D, by GOLD 2017 classification ([facility]) Inhale 2 Puffs by mouth every 4 hours as needed for Wheezing. 54 g 6 11/23/2023 Active Furosemide 20 MG Oral Tablet (Lasix) TAKE 1 TABLET BY MOUTH twice DAILY 180 Tablet 1 12/08/2023 Active predniSONE 20 MG Oral Tablet (Deltasone)Indicatio ns:COPD, group D, by GOLD 2017 classification ([facility]) Take 2 Tablets by mouth in the morning. USE NEEDED FOR EXACERBATION. COPD RESCUE KIT. 10 Tablet 12/09/2023 Active Metoprolol Tartrate 25 MG Oral Tablet (Lopressor) Take 1 Tablet by mouth in the morning and 1 Tablet before bedtime. 180 Tablet 3 12/22/2023 Active Doxycycline Hyclate 100 MG Oral TabletIndications:CO PD, group D, by GOLD 2017 classification ([facility]) Take 1 Tablet by mouth in the morning and 1 Tablet before bedtime. For as needed Rescue kit use when directed to take for COPD exacerbation. 14 Tablet 01/25/2024 Active Klor-Con M10 10 MEQ Oral Tablet Extended Release TAKE 1 TABLET BY MOUTH ONCE A DAY ON TUESDAY, TUESDAY, AND TUESDAY ONLY. 11/17/2023 Active Fluticasone Propionate 50 MCG/ACT Nasal Suspension (Flonase) Administer 2 Sprays into nostril daily as needed for Allergies. 48 g 3 01/30/2024 Active Apixaban 2.5 MG Oral Tablet (Eliquis)Indications :Recurrent cerebrovascular accidents (CVAs) ([facility]) Take 1 Tablet by mouth in the morning and 1 Tablet before bedtime. 60 Tablet 11 01/30/2024 Active Hospital, Clinic, or Other Facility Administered Medication Ordered Dose Route Frequency Start Date End Date Status Albuterol Sulfate (Proventil) (2.5 MG/3ML) 0.083% inhalation solution 2.5 mgIndications:COPD, group D, by GOLD 2017 classification ([facility]) 2.5 mg NEBULIZER PRN 10/03/2023 10/02/2024 Acti ve documented as of this encounter (statuses as of 02/08/2024) Active Problems Problem Noted Date Diagnosed Date [...] Wheezing Medication Regimen Class D - Inhaled Knirvuycyrhjun-AOAO-KCRG Combination Inhaler (Trellegy) Remote Patient Monitoring Vendor: [...] as of this encounter (statuses as of 02/08/2024) Resolved Problems Problem Noted Date Diagnosed Date [...] as of this encounter (statuses as of 02/08/2024) Immunizations Name Administration Dates Next Due COVID-19 [...] documented as of this encounter Functional Status Functional Status Response [...] No 10/21/2023 documented as of this encounter Miscellaneous Notes * Telephone Encounter - Danna Hammond LPN - 02/08/2024 11:03 AM EDT CL Finding Patient managed in STAIR Program for Pulmonary Nodule - banner added documented in this encounter Plan of Treatment Upcoming Encounters Date Type Department Care Team (Late st Contact Info) Description 02/24/2024 2:00 PM EST Hem/Onc Treatment Hematology/Oncology Treatment, [place] [address] [place] [phone] Hannah, Chair 3 Hem Onc Scenery [address] [place] [address] 02/27/2024 12:30 PM EST [facility] Visit [facility], [facility] [address] [place] [address] Jenifer Linder RN [address] [place] [address] 03/12/2024 11:00 AM EST [facility] Visit [facility] [place], [facility] [address] [place] [address] Heath Zhang PA-C [address] [place] [address] 03/28/2024 3:20 PM EST Office Visit Sleep Disorders Ctr [facility] [address] [place] [phone] Shanika Fitzgerald DO [address] [place] [address] 04/03/2024 10:30 AM EST PulmDiagnostic Pulmonary Function Lab, [facility] [address] [place] [address] West, Pft [address] [facility] [place] [address] 04/03/2024 1:40 PM EST Office Visit Pulmonary Medicine, [facility] [address] [facility] [place] [address] Devin Hodge [facility] [address] [facility] [address] 04/24/2024 6:00 PM EST Office Visit [facility] [address] [place] [phone] Jairo Kingston MD [address] [place] [address] 06/27/2024 2:45 PM EDT Office Visit Hematology/Oncology [facility] [address] [facility] [place] [phone] Michael Snyder MD [address] [facility] [place] [address] 07/30/2024 4:00 PM EDT Office Visit Nephrology, [facility] [address] [facility] [place] [address] Reggie Azevedo MD [address] [place] [place] [address] Scheduled Procedures Name Priority Associated Diagnoses Date/Ti [...] this encounter Medical Devices Implanted Type Area Flooring Grader Device Identifier Shelf Expiration Date Model / Serial / Lot Graft Hemasheild 20mm [id number] - [id number] Implanted:Qty: 1 on 01/13/2009 at [place] [facility] [place]: Abdomen MICROVASIVE [id number] / / [id number] Clip Resolution 360 Endo 235cm - [id number] Implanted:Qty: 1 on 12/10/2022 by Lacie England MD at OR [facility] [employer] : ENDOSCOPY [id number] 07/02/2025 [id number] / / [id number] Clip Resolution 360 Endo 235cm - [id number] Implanted:Qty: 1 on 12/10/2022 by Lacie England MD at OR [facility] [employer] : ENDOSCOPY [id number] 07/02/2025 [id number] / / [id number] Stent Biliary Adult L30mm Dia1 - [id number] Implanted:Qty: 1 on 10/26/2023 by Lacie England MD at OR [facility] COOK : JOHANNA COURTNEY [id number] 06/27/2026 [id number] / / [id number] documented as of this encounter Advance Directives Documents on File Type Date Recorded Patient Overlock Waistline Joiner Expl anation Power of Preparation Operator 07/30/2022 POWER OF A TTORNEY * Full [...] and were consensually agreed upon. Care Teams Cable Braider Relationship Specialty Start Date End Date Jairo Kingston MD [address] [place] [address] PCP - General 12/21/05 documented as of this encounter
--- OUTSIDE RECORDS SUMMARY | 2024-04-26 10:52 | External Medical Summary | Summary of Care ---
Author Name Unknown Organization [facility] Address [address] [place] [address] Phone [phone] Care Team Providers Care Curing Supervisor Name Role Phone Jairo Kingston MD Primary Care Provider [phone]- [phone] Reason for Visit * Reason Onset Date Comments [facility]: Maintenance 02/27/2024 Encounter Details Date Type Department Care Team (Late st Contact Info) Description 02/27/2024 Telephone [facility], [facility] [address] [place] [address] Jenifer Linder, RN [address] [place] [address] [facility]: Maintenance Allergies Active Allergy [...] 0.1 % Nasal Solution (Astelin) Administer 1 [place] into nostril in the morning and 1 [place] before bedtime. 30 mL 1 01/12/20 23 [...] s:COPD, group D, by GOLD 2017 classification ([facility]) Inhale 2 Puffs by mouth every [...] Oral Tablet (Eliquis)Indicatio ns:Recurrent cerebrovascular accidents (CVAs) ([facility]) Take 1 Tablet by mouth in the morning and 1 Tablet before bedtime. 60 Tablet 11 4 3:27 PM EDT 01/30/20 24 Active Doxycycline Hyclate 100 MG Oral TabletIndications: COPD, group D, by GOLD 2017 classification ([facility]) Take 1 Tablet by mouth in the morning and 1 Tablet before bedtime. For 7 days. As needed Rescue kit use when directed to take for COPD exacerbation. 14 Tablet 02/27/20 24 Active predniSONE 20 MG Oral Tablet (Deltasone)Indicat ions:COPD, group D, by GOLD 2017 classification ([facility]) Take 2 Tablets by mouth in the morning. For 5 days. USE NEEDED FOR EXACERBATION. COPD RESCUE KIT. 10 Tablet 02/27/20 24 Active predniSONE 20 MG Oral Tablet (Deltasone)Indicat ions:COPD, group D, by GOLD 2017 classification ([facility]) Take 2 Tablets by mouth in the morning. USE NEEDED FOR EXACERBATION. COPD RESCUE KIT. 10 Tablet 4 4:35 PM EDT 12/09/19 24 024 Discontin ued(Refil l) Doxycycline Hyclate 100 MG Oral TabletIndications: COPD, group D, by GOLD 2017 classification ([facility]) Take 1 Tablet by mouth in [...] mgIndications:COPD, group D, by GOLD 2017 classification ([facility]) 2.5 mg NEBULIZER PRN 10/03/2023 10/02/2024 [...] Wheezing Medication Regimen Class D - Inhaled Rbzbdbrqtmiyuh-GDEK-QKRN Combination Inhaler (Trellegy) Remote Patient Monitoring Vendor: [...] & Plan (11/11/2022 9:15 PM EDT): Allopurinol rn long term care No new attacks GINNY on CPAP [...] Entry Date Author No 10/21/2023 6:05 PM EDAaron Degroot RN documented in this encounter Miscellaneous Notes * Telephone Encounter - Jenifer Linder RN - 02/27/2024 12:27 PM EST Pt in need of refill for COPD rescue kit - prednisone and Doxycycline. He is having increased SOB, cough with thick white to yellow mucus, wheezing Noted wheezes throughout lung read. Pharmacy is [facility] Thank you! documented in this encounter Plan of Treatment Upcoming Encounters Date Type Department Care Team (Late st Contact Info) Description 03/12/2024 11:00 AM EST Home Visit [place] [facility], [facility] [address] [place] [address] Heath Zhang PA-C [address] [place] [address] 03/23/2024 2:00 PM EST Hem/Onc Treatment Hematology/Oncology Treatment, [place] [address] [facility] [phone] Hannah, Chair 4 Hem Onc Scenery [address] [facility] [place] [address] 03/28/2024 3:20 PM EST Office Visit Sleep Disorders Ctr [facility] [address] [facility] [place] [phone] Shanika Fitzgerald DO [address] [facility] [place] [address] 04/02/2024 12:30 PM EST Home Visit [facility] at Home, [facility] [address] [facility] [place] [address] Jenifer Linder RN [address] [facility] [place] [address] 04/03/2024 10:30 AM EST PulmDiagnostic Pulmonary Function Lab, [facility] [address] [facility] [place] [address] West, [address] [facility] [place] [address] 04/03/2024 1:40 PM EST Office Visit Pulmonary Medicine, [facility] [address] [facility] [place] [address] Devin Hodge MD [address] [place] [place] [address] 04/20/2024 2:00 PM EST Hem/Onc Treatment Hematology/Oncology Treatment, [place] [address] [facility] [place] [phone] Hannah, Chair 9 Hem Onc Scenery [address] [facility] [place] [address] 04/24/2024 6:00 PM EST Office Visit [facility] [address] [facility] [place] [address] Jairo Kingston MD [address] [facility] [address] 06/27/2024 3:00 PM EDT Office Visit Hematology/Oncology [facility] Hannah [place] [address] [facility] [place] [phone] Michael Snyder MD [address] [facility] [place] [address] 07/30/2024 4:00 PM EDT Office Visit Nephrology, [facility] [address] [facility] [place] [address] Reggie Azevedo MD [address] [facility] [place] [address] Scheduled Procedures Name Priority Associated Diagnoses Date/Ti [...] 12/31/2021, Additional history exists Phosphate 12/29/2024 12/30/2023, 09/2023, 02/22/2023, Additional history exists AAA Monitoring [...] this encounter Medical Devices Implanted Type Area Hydro Station Operator Device Identifier Shelf Expiration Date Model / Serial / Lot Graft Hemasheild 20mm [id number] - [id number] Implanted:Qty: 1 on 01/13/2009 at OR [facility] N/A: Abdomen MICROVASIVE [id number] / / [id number] Clip Resolution 360 Endo 235cm - [id number] Implanted:Qty: 1 on 12/10/2022 by Lacie England MD at OR [facility] [employer] : ENDOSCOPY [id number] 07/02/2025 [id number] / / [id number] Clip Resolution 360 Endo 235cm - [id number] Implanted:Qty: 1 on 12/10/2022 by Lacie England MD at OR [facility] [employer] : ENDOSCOPY [id number] 07/02/2025 [id number] / / [id number] Stent Biliary Adult L30mm Dia1 - [id number] Implanted:Qty: 1 on 10/26/2023 by Lacie England MD at OR [facility] ROZ : JOHANNA COURTNEY [id number] 06/27/2026 [id number] / / [id number] documented as of this encounter Visit Diagnoses [...] COPD, group D, by GOLD 2017 classification ([facility]) documented in this encounter Advance Directives Documents on File Type Date Recorded Patient Livestock Slaughterer Expl anation Power of Journeyman Level Acoustic Analyst 07/30/2022 POWER OF A TTORNEY * Full [...] and were consensually agreed upon. Care Teams Curing Supervisor Relationship Specialty Start Date End Date Jairo Kingston MD [address] [facility] [address] PCP - General 12/21/05 documented as of this encounter
--- OUTSIDE RECORDS SUMMARY | 2024-04-26 10:52 | External Medical Summary ---
Author Name Unknown Address Unknown Organization K01:[facility] [place] [address] [place] [address] Laboratory Report Ordering Provider Test Date Status LOLLY ALEGRIA 02/24/2024 13:50:08 Final Observation Date Value Abnormality Reference (Units ) Status Iron 02/24/2024 13:50:08 62 45-176 (ug /dL) Final Iron-binding capacity 02/24/2024 13:50:08 284 250-425 (ug/dL) Final Transferrin Sat % 02/24/2024 13:50:08 22 15 -55 (%) Final Performing Location [facility] [place] [address] [place] [address]
--- OUTSIDE RECORDS SUMMARY | 2024-04-26 10:52 | External Medical Summary | Summary of Care ---
Author Name Unknown Organization [facility] Address [address] [place] [address] Phone [phone] Care Team Providers Care Program Project Analyst Name Role Phone Jairo Kingston MD Primary Care Provider [phone]- [phone] Reason for Visit * Reason Comments Infusion Venofer Encounter Details Date Type Department Care Team (Latest Contact Info) Description 02/24/2024 2:00 PM EST Hem/Onc Treatment Hematology/Oncology Treatment, [address] [address] Hannah, Chair 3 Hem Onc [address] [address] Iron deficiency anemia due to chronic blood loss* Allergies Active Allergy Reactions Criticality Noted Date Comments Pavan Inhibitors Other (Please comment) 0 Hyperkalemia documented as of this encounter (statuses as of 02/24/2024) Medications oxygen GAS Use 3 L/min(Oxygen) as [...] 0.1 % Nasal Solution (Astelin) Administer 1 [place] into nostril in the morning and 1 [place] before bedtime. 30 mL 1 01/12/20 23 [...] :COPD, group D, by GOLD 2017 classification ([facility]) Inhale 2 Puffs by mouth every 4 hours as needed for Wheezing. 54 g 6 4 8:36 AM EDT 11/23/19 24 Active Furosemide 20 MG Oral Tablet (Lasix) TAKE 1 TABLET BY MOUTH twice DAILY 180 Tablet 1 4 1:55 PM EDT 12/08/19 24 Active predniSONE 20 MG Oral Tablet (Deltasone)Indicati ons:COPD, group D, by GOLD 2017 classification ([facility]) Take 2 Tablets by mouth in the morning. USE NEEDED FOR EXACERBATION. COPD RESCUE KIT. 10 Tablet 4 4:35 PM EDT 12/09/19 24 Active Metoprolol Tartrate 25 MG Oral Tablet (Lopressor) Take 1 Tablet by mouth in the morning and 1 Tablet before bedtime. 180 Tablet 3 12/22/19 24 Active Doxycycline Hyclate 100 MG Oral TabletIndications:C OPD, group D, by GOLD 2017 classification ([facility]) Take 1 Tablet by mouth in the morning and 1 Tablet before bedtime. For as needed Rescue kit use when directed to take for COPD exacerbation. 14 Tablet 01/25/20 24 Active Klor-Con M10 10 MEQ Oral Tablet Extended Release TAKE 1 TABLET BY MOUTH ONCE A DAY ON TUESDAY, TUESDAY, AND TUESDAY ONLY. 11/17/19 24 Active Fluticasone Propionate 50 MCG/ACT Nasal Suspension (Flonase) Administer 2 Sprays into nostril daily as needed for Allergies. 48 g 3 01/30/20 24 Active Apixaban 2.5 MG Oral Tablet (Eliquis)Indication s:Recurrent cerebrovascular accidents (CVAs) ([facility]) Take 1 Tablet by mouth in the morning and 1 Tablet before bedtime. 60 Tablet 11 4 3:27 PM EDT 01/30/20 24 Active Hospital, Clinic, or Other Facility Administered Medication Ordered Dose Route Frequency Start Date End Date Status Albuterol Sulfate (Proventil) (2.5 MG/3ML) 0.083% inhalation solution 2.5 mgIndications:COPD, group D, by GOLD 2017 classification ([facility]) 2.5 mg NEBULIZER PRN 10/03/2023 10/02/2024 Acti ve documented as of this encounter (statuses as of 02/24/2024) Active Problems Problem Noted Date Diagnosed Date [...] Wheezing Medication Regimen Class D - Inhaled Pfikctzsgqknlm-[id number] Combination Inhaler (Trellegy) Remote Patient Monitoring Vendor: [...] & Plan (11/11/2022 9:15 PM EDT): Allopurinol custodial No new attacks GINNY on [...] as of this encounter (statuses as of 02/24/2024) Resolved Problems Problem Noted Date Diagnosed Date [...] as of this encounter (statuses as of 02/24/2024) Immunizations Name Administration Dates Next Due COVID-19 [...] No 12/12/2023 Does the household have a [facility] source of income? (Household - for ages [...] Assessment Author Yes 10/21/2023 6:05 PM EDT Aaorn House, RN * Are you blind or do you have serious difficulty seeing, even when wearing glasses? Answer Date of Assessment Author Yes 10/21/2023 6:05 PM EDAaron Degroot RN * Do you have serious difficulty [...] Description 02/27/2024 12:30 PM EST Home Visit [facility] [address] [address] Jenifer Linder RN [address] [address] 03/12/2024 11:00 AM EST [facility] Visit [facility], [facility] 132 [facility] [place] [place] [address] Heath Zhang PA-C [address] [place] [address] 03/23/2024 2:00 PM EST Hem/Onc Treatment Hematology/Oncology Treatment, [place] [address] [place] [phone] Hannah, Chair 4 Hem Onc [facility] 200 [facility] [place] [address] 03/28/2024 3:20 PM EST Office Visit [facility] Disorders Ctr [facility] 132 [facility] [place] [place] [phone] Shanika Fitzgerald DO 132 [facility] [place] [place] [address] 04/03/2024 10:30 AM EST PulmDiagnostic Pulmonary Function Lab, [facility] 132 [facility] [place] [address] [address], [address] 132 [facility] [address] 04/03/2024 1:40 PM EST Office Visit Pulmonary Medicine, [facility] 132 [facility] [place] [address] Devin Hodge MD [address] [address] 04/20/2024 2:00 PM EST Hem/Onc Treatment Hematology/Oncology Treatment, [place] 200 [place] [phone] Hannah, Chair 9 Hem Onc [place] 200 [facility] [place] [address] 04/24/2024 6:00 PM EST Office Visit [facility] [address] Jairo Kingston MD [address] [place] [address] 06/27/2024 3:00 PM EDT Office Visit Hematology/Oncology [facility] 200 [facility] [place] [phone] Michael Snyder MD 200 [facility] [place] [address] 07/30/2024 4:00 PM EDT Office Visit Nephrology, [facility] 200 [facility] [place] [address] Reggie Azevedo MD 200 [facility] [place] [address] Pending Results Name Type Priority Associated Diagnoses Date /Time FERRITIN Lab STAT Iron deficiency anemia due to chronic blood loss 02/24/2024 1:50 PM EST IRON SCREEN, INCLUDING TIBC Lab STAT Iron deficiency anemia due to chronic blood loss 02/24/2024 1:50 PM EST Scheduled Orders Name Type Priority Associated Diagnoses Orde r Schedule CBC WITH WBC DIFFERENTIAL Lab STAT Iron deficiency anemia due to chronic blood loss Every Month for 12 Occurrences starting 02/24/2024 until 02/23/2025, 1 completed FERRITIN Lab STAT Iron deficiency anemia due to chronic blood loss Every Month for 12 Occurrences starting 02/24/2024 until 02/23/2025 IRON SCREEN, INCLUDING TIBC Lab STAT Iron deficiency anemia due to chronic blood loss Every Month for 12 Occurrences starting 02/24/2024 until 02/23/2025 Scheduled Procedures Name Priority Associated Diagnoses Date/Ti [...] this encounter Medical Devices Implanted Type Area Laboratory Sampler Device Identifier Shelf Expiration Date Model / Serial / Lot Graft Hemasheild 20mm [id number] - [id number] Implanted:Qty: 1 on 01/13/2009 at [place] [facility] [place]: Abdomen MICROVASIVE [id number] / / [id number] Clip Resolution 360 Endo 235cm - [id number] Implanted:Qty: 1 on 12/10/2022 by Lacie England MD at OR [facility] [employer] : ENDOSCOPY [id number] 07/02/2025 [id number] / / [id number] Clip Resolution 360 Endo 235cm - [id number] Implanted:Qty: 1 on 12/10/2022 by Lacie England MD at OR [facility] [employer] : ENDOSCOPY [id number] 07/02/2025 [id number] / / [id number] Stent Biliary Adult L30mm Dia1 - [id number] Implanted:Qty: 1 on 10/26/2023 by Lacie England MD at OR [facility] COOK : JOHANNA COURTNEY [id number] 06/27/2026 [id number] / / [id number] documented as of this encounter Procedures Procedure [...] this encounter Results * (ABNORMAL) DIFFERENTIAL, AUTOMATED (02/24/2024 1:50 PM EST) WBC 6.37 4.00 - 10.80 K/uL 02/24/2024 2:00 PM EST [facility] [place] 56-02 Neutrophils % 57.3 40.0 - 75.0 % 02/24/2024 2:00 PM EST [facility] [place] 56-02 Lymphocytes % 17.3(L) 18.0 - 42.0 % 02/24/2024 2:00 PM [facility] 56-02 Monocytes % 14.1(H) 1.0 - 11.0 % 02/24/2024 2:00 PM [facility] 56- Eosinophils % 10.0(H) 0.0 - 6.0 % 02/24/2024 2:00 PM [facility] 56 Basophils % 1.3 0.0 - 2.0 % 02/24/2024 2:00 PM [facility] 56- Absolute Neutrophils 3.65 1.80 - 7.70 K/uL 02/24/2024 2:00 PM EST [facility] 56- Absolute Lymphocytes 1.10 1.00 - 4.80 K/ul 02/24/2024 2:00 PM [facility] 56- Absolute Monocytes 0.90 0.00 - 1.10 K/uL 02/24/2024 2:00 PM [facility] 56- Absolute Eosinophils 0.64 0.00 - 0.70 K/uL 02/24/2024 2:00 PM [facility] 56 Absolute Basophils 0.08 0.00 - 0.20 K/uL 02/24/2024 2:00 PM [facility] 56 Blood Venous blood specimen / Unknown Venipuncture / Unknown 02/24/2024 1:50 PM EST 02/24/2024 1:57 PM EST us Sheri [facility] LAB BLOOD ORDERABLES Fi nal Result [facility] 56 [address] [place] [address] * (ABNORMAL) CBC (02/24/2024 1:50 PM EST) WBC 6.37 4.00 - 10.80 K/uL 02/24/2024 2:00 PM [facility] 56- RBC 3.87 4.50 - 5.25 M/uL 02/24/2024 2:00 PM [facility] 56 HGB 12.3(L) 14.0 - 16.8 g/dL 02/24/2024 2:00 PM [facility] 56 HCT 39.6(L) 40.0 - 48.4 % 02/24/2024 2:00 PM [facility] 56 MCV 102.3 82.0 - 99.5 fL 02/24/2024 2:00 PM EST [address] MCH 31.8 27.0 - 34.0 pg 02/24/2024 2:[address] MCHC 31.1 32.0 - 36.0 g/dL 02/24/2024 2:00 PM EST [facility] 56 RDW 17.1 11.5 - 15.5 % 02/24/2024 2:[address] PLT 217 140 - 400 K/uL 02/24/2024 2:[address] MPV 9.5 6.6 - 11.1 fL 02/24/2024 2:00 PM [facility] 56 Blood Venous blood specimen / Unknown Venipuncture / Unknown 02/24/2024 1:50 PM EST 02/24/2024 1:57 PM EST us Sheri [facility] LAB BLOOD ORDERABLES Fi nal Result [facility] [address] [place] [address] documented in this encounter Visit [...] ONCE PRN Other, Hypersensitivity Reaction, Starting on Tue02/24/24 at 1341, Until 02/25/24 at 1340, For 24 hoursIndications:Iron deficiency anemia due to chronic blood loss EPINEPHrine 1 MG/ML inj 0.3 mg 0.3 mg, Intramuscular, ONCE PRN Other, Hypersensitivity Reaction or Anaphylaxis, Starting on Tue02/24/24 at 1341, Until 02/25/24 at 1340, For 24 hoursIndications:Iron deficiency anemia due to chronic blood loss hEParin 100 UNIT/ML Lock Flush inj 500 Units 500 Units (5 mL), IV Lock, PRN Other, IV Flush, Starting on Tue02/24/24 at 1341, Until 02/25/24 at 1340, For 24 hours, Do not flush if lock, PICC, or central line not in place; IV infusing or unable to flush.Indications:Iron deficiency anemia due to chronic blood loss Hydrocortisone Sod Suc (PF) (Solu-Cortef) inj 100 mg 100 mg, IV Push, ONCE PRN Other, Hypersensitivity Reaction, Starting on Tue02/24/24 at 1341, Until 02/25/24 at 1340, For 24 hoursIndications:Iron deficiency anemia due to chronic blood loss NSS infusion 500 mL, Intravenous, at 50 mL/hr, CONTINUOUS, Starting on Tue02/24/24 at 1445, Until 02/25/24 at 0044Indications:Iron deficiency anemia due to chronic blood loss Start Infusion 02/24/2024 1:59 PM EST 500 mL 50 mL/hr oxygen GAS Inhalation, OXYGEN, First dose on Tue02/24/24 at 1600, Until Discontinued, Device/Managed by: Low [...] Push, PRN Other, IV Flush, Starting on Tue02/24/24 at 1341, Until 02/25/24 at 1340, For 24 hours, Do not flush if [...] 2:01 PM EST 300 mg 180 mL/hr documented in this encounter Advance Directives Documents on File Type Date Recorded Patient Heat Sealing Machine Operator Expl anation Power of Billboard Erector 07/30/2022 POWER OF A TTORNEY * Full [...] and were consensually agreed upon. Care Teams Program Project Analyst Relationship Specialty Start Date End Date Jairo Kingston MD [address] [place] [address] PCP - General 12/21/05 documented as of this encounter
--- OUTSIDE RECORDS SUMMARY | 2024-04-26 10:52 | External Medical Summary | Summary of Care ---
Author Name Unknown Organization [facility] Address [address] [place] [address] Phone [phone] Care Team Providers Care Cnc Machinist 2Nd Shift Name Role Phone Jairo Kingston MD Primary Care Provider +1- [phone] Reason for Visit * Reason Comments Infusion Venofer Encounter Details Date Type Department Care Team (Latest Contact Info) Description 01/27/2024 2:00 PM EDT Hem/Onc Treatment Hematology/Oncology Treatment, [address] [phone] Hannah, Chair 2 Hem On[address] [address] Iron deficiency anemia due to chronic blood loss*; CKD (chronic kidney disease) stage 4, GFR 15-29 ml/min ([facility]) Allergies Active Allergy Reactions Criticality Noted Date Comments Pavan Inhibitors Other (Please comment) 0 Hyperkalemia documented as of this encounter (statuses as of 01/27/2024) Medications Medication Sig Dispensed Refills Start Date [...] 0.1 % Nasal Solution (Astelin) Administer 1 [place] into nostril in the morning and 1 [place] before bedtime. 30 mL 1 01/11/2023 Active Ezetimibe 10 MG Oral Tablet (Zetia)Indications:D [...] DAY 45 Tablet 2 06/01/2023 5 Active Ipratropium-Albutero l 0.5-2.5 (3) MG/3ML Inhalation [...] COPD, group D, by GOLD 2017 classification ([facility]) Inhale 2 Puffs by mouth every 4 hours as needed for Wheezing. 54 g 6 11/23/2023 Active Furosemide 20 MG Oral Tablet (Lasix) TAKE 1 TABLET BY MOUTH twice DAILY 180 Tablet 1 12/08/2023 Active predniSONE 20 MG Oral Tablet (Deltasone)Indicatio ns:COPD, group D, by GOLD 2017 classification ([facility]) Take 2 Tablets by mouth in the morning. USE NEEDED FOR EXACERBATION. COPD RESCUE KIT. 10 Tablet 12/09/2023 Active Metoprolol Tartrate 25 MG Oral Tablet (Lopressor) Take 1 Tablet by mouth in the morning and 1 Tablet before bedtime. 180 Tablet 3 12/22/2023 Active Apixaban 2.5 MG Oral Tablet (Eliquis)Indications :Recurrent cerebrovascular accidents (CVAs) ([facility]) Take 1 Tablet by mouth in the morning and 1 Tablet before bedtime. 120 Tablet 1 01/04/2024 Active Doxycycline Hyclate 100 MG Oral TabletIndications:CO PD, group D, by GOLD 2017 classification ([facility]) Take 1 Tablet by mouth in the morning and 1 Tablet before bedtime. For as needed Rescue kit use when directed to take for COPD exacerbation. 14 Tablet 01/25/2024 Active Klor-Con M10 10 MEQ Oral Tablet Extended Release TAKE 1 TABLET BY MOUTH ONCE A DAY ON TUESDAY, TUESDAY, AND TUESDAY ONLY. 11/17/2023 Active Hospital, Clinic, or Other Facility Administered Medication Ordered Dose Route Frequency Start Date End Date Status Albuterol Sulfate (Proventil) (2.5 MG/3ML) 0.083% inhalation solution 2.5 mgIndications:COPD, group D, by GOLD 2017 classification ([facility]) 2.5 mg NEBULIZER PRN 10/03/2023 10/02/2024 Acti ve documented as of this encounter (statuses as of 01/27/2024) Active Problems Problem Noted Date Diagnosed Date [...] Wheezing Medication Regimen Class D - Inhaled Qlfoxpvniqheds-AIAV-XVFG Combination Inhaler (Trellegy) Remote Patient Monitoring Vendor: [...] stage IV Last Assessment & Plan: Norfrancisco javier, lopressor History of supraventricular tachycardia 11/12/19 Idiopathic chronic gout of foot without tophus 0 11/11/2022 Last Assessment & Plan: Allopurinol meat boner No new attacks GINNY on CPAP 11/11/2022 [...] as of this encounter (statuses as of 01/27/2024) Resolved Problems Problem Noted Date Diagnosed Date [...] as of this encounter (statuses as of 01/27/2024) Immunizations Name Administration Dates Next Due COVID-19 [...] Description 02/23/2024 3:00 PM EST Home Visit [facility] [address] [address] Heath Zhang PA-C [address] [place] [place] [address] 02/24/2024 2:00 PM EST Hem/Onc Treatment Hematology/Oncology Treatment, [place] [address] [place] [phone] Park, Chair 3 Hem Onc [address] [address] [place] [address] 02/27/2024 12:30 PM EST [facility] Visit [facility], [facility] [place] [address] Jenifer Linder RN [address] [place] [address] 03/28/2024 3:20 PM EST Office Visit [facility] Disorders Ctr [facility] 132 [facility] [place] [phone] Shanika Fitzgerald DO 132 [facility] [place] [address] 04/03/2024 10:30 AM EST PulmDiagnostic Pulmonary Function Lab, [facility] 132 [facility] [place] [address] [address], [address] 132 [facility] [place] [address] 04/03/2024 11:00 AM EST PulmDiagnostic Pulmonary Function Lab, [facility] 132 [facility] [place] [address] [place], [address] 132 [facility] [place] [address] 04/03/2024 1:40 PM EST Office Visit Pulmonary Medicine, [facility] 132 [facility] [place] [address] Devin Hodge MD [address] [place] [address] 04/24/2024 6:00 PM EST Office Visit [facility] [address] [place] [facility] [place] [address] Jairo Kingston MD [address] [place] [address] 06/27/2024 2:45 PM EDT Office Visit Hematology/Oncology [facility] [place] 200 [facility] [place] [phone] Michael Snyder MD 200 [facility] [place] [address] 07/30/2024 4:00 PM EDT Office Visit Nephrology, [facility] 200 [facility] [place] [address] Reggie Azevedo MD 200 [facility] [place] [address] Scheduled Procedures Name Priority Associated Diagnoses Date/Ti [...] this encounter Medical Devices Implanted Type Area Painter Bottom Device Identifier Shelf Expiration Date Model / Serial / Lot Graft Hemasheild 20mm [id number] - [id number] Implanted:Qty: 1 on 01/13/[address] [facility] [place] Abdomen MICROVASIVE [id number] / / [id number] Clip Resolution 360 Endo 235cm - [id number] Implanted:Qty: 1 on 12/10/2022 by Lacie England MD at OR [facility] [employer] : ENDOSCOPY [id number] 07/02/2025 [id number] / / [id number] Clip Resolution 360 Endo 235cm - [id number] Implanted:Qty: 1 on 12/10/2022 by Lacie England MD at OR [facility] [employer] : ENDOSCOPY [id number] 07/02/2025 [id number] / / [id number] Stent Biliary Adult L30mm Dia1 - [id number] Implanted:Qty: 1 on 10/26/2023 by Lacie England MD at OR [facility] ROZ : JOHANNA COURTNEY [id number] 06/27/2026 [id number] / / [id number] documented as of this encounter Procedures Procedure [...] 10.80 K/uL 01/27/2024 2:09 PM EDT [facility] [place] 56-02 Neutrophils % 96.2(H) 40.0 - 75.0 % 01/27/2024 2:09 PM EDT [facility] [place] 56-02 Lymphocytes % 2.5(L) 18.0 - 42.0 % 01/27/2024 2:09 PM EDT [facility] [place] 56-02 Monocytes % 1.2 1.0 - 11.0 % 01/27/2024 2:09 PM EDT [facility] [place] 56-02 Eosinophils % 0.0 0.0 - 6.0 % 01/27/2024 2:09 PM EDT [facility] [place] 56-02 Basophils % 0.1 0.0 - 2.0 % 01/27/2024 2:09 PM EDT [facility] 56-02 Absolute Neutrophils 16.60(H) 1.80 - 7.70 K/uL 01/27/2024 2:09 PM EDT [facility] 56-02 Absolute Lymphocytes 0.43(L) 1.00 - 4.80 K/ul 01/27/2024 2:09 PM EDT [facility] 56 Absolute Monocytes 0.20 0.00 - 1.10 K/uL 01/27/2024 2:09 PM EDT [facility] 56 Absolute Eosinophils 0.00 0.00 - 0.70 K/uL 01/27/2024 2:09 PM EDT [facility] 56 Absolute Basophils 0.02 0.00 - 0.20 K/uL 01/27/2024 2:09 PM EDT [facility] 56 Blood Venous blood specimen / Unknown Venipuncture / Unknown 01/27/2024 1:46 PM EDT 01/27/2024 2:02 PM EDT Reggie Azevedo MD LAB BLOOD ORDERABLES [facility] [address] [place] [address] * (ABNORMAL) CBC (01/27/2024 1:46 PM EDT) WBC 17.25(H) 4.00 - 10.80 K/uL 01/27/2024 2:09 PM EDT [facility] 56 RBC 3.62 4.50 - 5.25 M/uL 01/27/2024 2:09 PM EDT [facility] 56 HGB 11.5(L) 14.0 - 16.8 g/dL 01/27/2024 2:09 PM EDT [facility] 56 HCT 36.6(L) 40.0 - 48.4 % 01/27/2024 2:09 PM EDT [facility] 56 MCV 101.1 82.0 - 99.5 fL 01/27/2024 2:09 PM EDT [facility] 56 MCH 31.8 27.0 - 34.0 pg 01/27/2024 2:09 PM EDT [facility] 56 MCHC 31.4 32.0 - 36.0 g/dL 01/27/2024 2:09 PM EDT [facility] 56 RDW 17.4 11.5 - 15.5 % 01/27/2024 2:09 PM EDT [facility] 56 PLT 224 140 - 400 K/uL 01/27/2024 2:09 PM EDT [facility] 56 MPV 10.7 6.6 - 11.1 fL 01/27/2024 2:09 PM EDT [facility] 56 Blood Venous blood specimen / Unknown Venipuncture / Unknown 01/27/2024 1:46 PM EDT 01/27/2024 2:02 PM EDT Reggie Azevedo MD LAB BLOOD ORDERABLES [facility] [address] [place] [address] documented in this encounter Visit Diagnoses Diagnosis Iron deficiency anemia due to chronic blood loss- Primary Iron 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 (chronic) CKD (chronic kidney disease) stage 4, GFR 15-29 ml/min (HCC) Chronic kidney disease, Stage IV (severe) documented in this encounter Administered Medications Active Administered Medications - up to 3 most recent administrations Medication Order MAR Action Action Date Dose Rate Site diphenhydrAMINE (Benadryl) inj 50 mg 50 mg, IV Push, ONCE PRN Other, Hypersensitivity Reaction, Starting on Tue01/27/24 at 1345, Until 01/28/24 at 1344, For 24 hours EPINEPHrine 1 MG/ML inj 0.3 mg 0.3 mg, Intramuscular, ONCE PRN Other, Hypersensitivity Reaction or Anaphylaxis, Starting on Tue01/27/24 at 1345, Until 01/28/24 at 1344, For 24 hours hEParin 100 UNIT/ML Lock Flush inj 500 Units 500 Units (5 mL), IV Lock, PRN Other, IV Flush, Starting on Tue01/27/24 at 1345, Until 01/28/24 at 1344, For 24 hours, Do not flush if lock, PICC, or central line not in place; IV infusing or unable to flush. Hydrocortisone Sod Suc (PF) (Solu-Cortef) inj 100 mg 100 mg, IV Push, ONCE PRN Other, Hypersensitivity Reaction, Starting on Tue01/27/24 at 1345, Until 01/28/24 at 1344, For 24 hours NSS infusion 500 mL, Intravenous, at 50 mL/hr, CONTINUOUS, Starting on Tue01/27/24 at 1500, Until 01/28/24 at 0059 Start Infusion 01/27/2024 1:57 PM EDT 500 mL 50 mL/hr oxygen GAS Inhalation, OXYGEN, First dose on Tue01/27/24 at 1600, Until Discontinued, Device/Managed by: Low [...] Push, PRN Other, IV Flush, Starting on Tue01/27/24 at 1345, Until 01/28/24 at 1344, For 24 hours, Do not flush if [...] On Tue01/27/24 at 1530, Administer over 90 Minutes Start Infusion 01/27/2024 1:57 PM EDT 300 mg 180 mL/hr documented in this encounter Advance Directives Documents on File Type Date Recorded Patient Manager Critical Care Unit Expl anation Power of Aoc Operations Intelligence Chief 07/30/2022 POWER OF A TTORNEY * Full [...] and were consensually agreed upon. Care Teams Cnc Machinist 2Nd Shift Relationship Specialty Start Date End Date Jairo Kingston MD [address] [place] [address] PCP - General 12/21/05 documented as of this encounter
--- OUTSIDE RECORDS SUMMARY | 2024-04-26 10:52 | External Medical Summary | Summary of Care ---
Author Name Unknown Organization [facility] Address [address] [place] [address] Phone [phone] Care Team Providers Care Contract Attorney Name Role Phone Jairo Kingston MD Primary Care Provider [phone]- [phone] Encounter Details Date Type Department Care Team (Late st Contact Info) Description 01/31/2024 Population Health External Data Unspecified Department Allergies Active Allergy Reactions Criticality Noted Date Comments Pavan Inhibitors Other (Please comment) 0 Hyperkalemia documented as of this encounter (statuses as of 02/01/2024) Medications Medication Sig Dispensed Refills Start Date [...] 0.1 % Nasal Solution (Astelin) Administer 1 [place] into nostril in the morning and 1 [place] before bedtime. 30 mL 1 01/11/2023 Active [...] (Eliquis)Indications :Recurrent cerebrovascular accidents (CVAs) ([facility]) Take [...] as of this encounter (statuses as of 02/01/2024) Active Problems Problem Noted Date Diagnosed Date [...] Wheezing Medication Regimen Class D - Inhaled Imspujudrknzug-XJAS-XMSP Combination Inhaler (Trellegy) Remote Patient Monitoring Vendor: [...] 0 11/11/2022 Last Assessment & Plan: Allopurinol fpc No new attacks GINNY on CPAP 11/11/2022 [...] as of this encounter (statuses as of 02/01/2024) Resolved Problems Problem Noted Date Diagnosed Date [...] as of this encounter (statuses as of 02/01/2024) Immunizations Name Administration Dates Next Due COVID-19 [...] No 10/21/2023 documented as of this encounter Plan of Treatment Upcoming Encounters Date Type Department Care Team (Late st Contact Info) Description 02/24/2024 2:00 PM EST Hem/Onc Treatment Hematology/Oncology Treatment, [place] [address] [place] [address] Park, Chair 3 Hem Onc [place] [address] [place] [address] 02/27/2024 12:30 PM EST [facility], [facility] [address] [place] [address] Jenifer Linder RN [address] [place] [address] 03/12/2024 11:00 AM EST Home Visit [facility], [facility] [address] [place] [address] Heath Zhang PA-C [address] [place] [address] 03/28/2024 3:20 PM EST Office Visit Sleep Disorders Ctr [facility] [address] [place] [address] Shanika Fitzgerald DO [address] [place] [address] 04/03/2024 10:30 AM EST PulmDiagnostic Pulmonary Function Lab, [facility] [address] [place] [address] [address], [address] [place] [address] 04/03/2024 11:00 AM EST PulmDiagnostic Pulmonary Function Lab, [facility] [address] [place] [address] [address], [address] [facility] [place] [address] 04/03/2024 1:40 PM EST Office Visit Pulmonary Medicine, [facility] [address] [facility] [place] [address] Devin Hodge MD [address] [place] [facility] [place] [address] 04/24/2024 6:00 PM EST Office Visit Family [facility] [address] [place] [address] Jairo Kingston MD [address] [place] [address] 06/27/2024 2:45 PM EDT Office Visit Hematology/Oncology [facility] [address] [facility] [place] [phone] Michael Snyder MD [address] [facility] [place] [address] 07/30/2024 4:00 PM EDT Office Visit Nephrology, [facility] [address] [facility] [place] [address] Reggie Azevedo MD [address] [facility] [place] [address] Scheduled Procedures Name Priority Associated Diagnoses Date/Ti [...] this encounter Medical Devices Implanted Type Area Stack Attendant Device Identifier Shelf Expiration Date Model / Serial / Lot Graft Hemasheild 20mm [id number] - [id number] Implanted:Qty: 1 on 01/13/2009 at OR [facility] [place] N/A: Abdomen MICROVASIVE [id number] / / [id number] Clip Resolution 360 Endo 235cm - [id number] Implanted:Qty: 1 on 12/10/2022 by Lacie England MD at OR [facility] [employer] : ENDOSCOPY [id number] 07/02/2025 [id number] / / [id number] Clip Resolution 360 Endo 235cm - [id number] Implanted:Qty: 1 on 12/10/2022 by Lacie England MD at OR [facility] [employer] : ENDOSCOPY [id number] 07/02/2025 [id number] / / [id number] Stent Biliary Adult L30mm Dia1 - [id number] Implanted:Qty: 1 on 10/26/2023 by Lacie England MD at OR [facility] COOK : JOHANNA COURTNEY [id number] 06/27/2026 [id number] / / [id number] documented as of this encounter Advance Directives Documents on File Type Date Recorded Patient Fishing Vessel Mate Expl anation Power of Bottom Sprayer 07/30/2022 POWER OF A TTORNEY * Full [...] were consensually agreed upon. Care Teams Contract Attorney Relationship Specialty Start Date End Date Jairo Kingston MD [address] [place] [address] PCP - General 12/21/05 documented as of this encounter
--- OUTSIDE RECORDS SUMMARY | 2024-04-26 10:52 | External Medical Summary ---
Author Name Unknown Address Unknown Organization K01:LAB[facility]AT[facility] [place] - [address] [place] [address] Laboratory Report Ordering Provider Test Date Status AIRAMLOLLY 02/24/2024 13:50:08 Final Observation Date Value Abnormality Reference (Units ) Status Ferritin 02/24/2024 13:50:08 151 30-400 (ng /mL) Final Performing Location LABORATORY [facility] - [address] [place] [address]
--- OUTSIDE RECORDS SUMMARY | 2024-04-26 10:53 | External Medical Summary | Summary of Care ---
Author Name Unknown Organization [facility] Address [address] [place] [address] Phone [phone] Care Team Providers Care Towboat Pilot Name Role Phone Lalo Carias MD Primary Care Provider [phone]- [phone] Reason for Visit * Reason Onset Date Comments Test Results 01/24/2024 Encounter Details Date Type Department Care Team (Late st Contact Info) Description 01/24/2024 Telephone Vascular Surgery, [facility] [address] [place] [address] Kathie Ybarra PA-C [address] [place] [address] Test Results Allergies Active Allergy Reactions Criticality Noted Date Comments Pavan Inhibitors Other (Please comment) 0 Hyperkalemia documented as of this encounter (statuses as of 01/26/2024) Medications Medication Sig Dispensed Refills Start Date [...] 0.1 % Nasal Solution (Astelin) Administer 1 [place] into nostril in the morning and 1 Coin before bedtime. 30 mL 1 3 Active [...] COPD, group D, by GOLD 2017 classification ([facility]) Inhale 2 Puffs by mouth every 4 hours as needed for Wheezing. 54 g 6 4 Active Furosemide 20 MG Oral Tablet (Lasix) TAKE 1 TABLET BY MOUTH twice DAILY 180 Tablet 1 4 Active predniSONE 20 MG Oral Tablet (Deltasone)Indicatio ns:COPD, group D, by GOLD 2017 classification ([facility]) Take 2 Tablets by mouth in the morning. USE NEEDED FOR EXACERBATION. COPD RESCUE KIT. 10 Tablet 4 Active Metoprolol Tartrate 25 MG Oral Tablet (Lopressor) Take 1 Tablet by mouth in the morning and 1 Tablet before bedtime. 180 Tablet 3 4 Active Apixaban 2.5 MG Oral Tablet (Eliquis)Indications :Recurrent cerebrovascular accidents (CVAs) ([facility]) Take 1 Tablet by mouth in the morning and 1 Tablet before bedtime. 120 Tablet 1 4 Active Doxycycline Hyclate 100 MG Oral TabletIndications:CO PD, group D, by GOLD 2017 classification ([facility]) Take 1 Tablet by mouth in the morning and 1 Tablet before bedtime. For as needed Rescue kit use when directed to take for COPD exacerbation. 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 * Telephone Encounter - Lalo Carias MD - 01/26/2024 9:08 AM EDT Yes - it is fine to take both the prednisone and doxycycline. Can also offer scheduling office visit. * Telephone Encounter - Brianna Najera LPN - 01/25/2024 4:52 PM EDT Called patient, spoke with Mitzi, she states that patient has started his taking prednisone and it is okay for patient take it with the Doxycycline. * Addendum Note - Lalo Carias MD - 01/25/2024 1:13 PM EDTAddended by: LALO CARIAS on: 01/25/2024 01:13 PM Modules accepted: Orders * Telephone Encounter - Lalo Carias MD - 01/25/2024 1:12 PM EDT Please see below. Please notify patient/family that a course of doxycycline was sent to pharmacy that pt can take for current symptoms. Can also offer OV for eval. * Telephone Encounter - Kathie Ybarra PA-C - 01/24/2024 9:56 AM EDT 01/19/24 CT C/A/P final radiology report notes the following findings: IMPRESSION 1. Postoperative changes of an abdominal [...] opacification, concerning for acute bronchiolitis. This may be secondary to aspiration or pneumonia. 6. 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 I called and spoke to Salina (daughter). Made her aware that vascular findings look relatively stable. They would like to keep appt on 01/25 () to talk to Dr. Suazo since they haven't seen himfor a while. I also informed her of pulmonary findings. She said that Mikhail has COPD and is struggling with coughing, congestion, shortness of breath more frequently. Has to use inhalers more frequently. He is coughing up clear phlegm. Made her aware that I will pass info along to PCP to determineif abx are needed or not. She verbalized understanding and was appreciative of the phone call. Dr. Carias: Please note lung findings above. Looks like patient may have acute bronchiolitis based on CT results. He has COPD and has been using his inhalers more frequently. Can you look into this, please? Thank you documented in this encounter Plan of Treatment Upcoming Encounters Date Type Department Care Team (Late st Contact Info) Description 01/27/2024 2:00 PM EDT Hem/Onc Treatment Hematology/Oncology Treatment, [address], [place] [phone] [place], Chair 2 Hem Onc [address] [place] [address] 02/23/2024 3:00 PM EST [facility] Visit [facility] [place], [facility] [address] [place] [address] Heath Zhang PA-C [address] [place] [address] 02/24/2024 2:00 PM EST Hem/Onc Treatment Hematology/Oncology Treatment, [address], [place] [phone] [place], Chair [address] [facility] [address] [place] [address] [place] [address] 02/27/2024 12:30 PM EST Home Visit [facility], [facility] [address] [place] [address] Jenifer Linder, RN [address] [place] [address] 03/28/2024 3:20 PM EST Office Visit Sleep Disorders Ctr [facility] [address] [place] [phone] Shanika Fitzgerald, [address] [place] [address] 04/03/2024 10:30 AM EST PulmDiagnostic Pulmonary Function Lab, [facility] [address] [facility] [place] [address] [address], [address] [place] [address] 04/03/2024 11:00 AM EST PulmDiagnostic Pulmonary Function Lab, [facility] [address] [facility] [place] [address] West, [address] [place] [address] 04/03/2024 1:40 PM EST Office Visit Pulmonary Medicine, [facility] [address] [facility] [place] [address] Devin Hodge MD [address] [facility] [address] 04/24/2024 6:00 PM EST Office Visit [facility] [address] [place] [phone] Lalo Carias MD [address] [place] [address] 06/27/2024 2:45 PM EDT Office Visit Hematology/Oncology [facility] [address] [place], [place] [phone] Michael Snyder MD [address] [place] [address] 07/30/2024 4:00 PM EDT Office Visit Nephrology, [facility] [address] [facility] [place], [place] [address] Reggie Azevedo MD [address] [facility] [place] [address] Scheduled Procedures Name Priority Associated Diagnoses Date/Ti [...] 12/31/2021, Additional history exists Phosphate 12/29/2024 12/30/2023, 070 09/2023, 02/22/2023, Additional history exists Hgb 01/12/2025 01/13/2024, 12/17, 12/02/2023, Additional history exists AAA Monitoring 01/18/2025 01/19/2024, 07/0 08/2023, 10/19/2023, Additional history exists Colonoscopy 01/02/2026 01/02/2021, 07/17, [...] this encounter Medical Devices Implanted Type Area Film Sound Engineer Device Identifier Shelf Expiration Date Model / Serial / Lot Graft Hemasheild 20mm [id number] - [id number] Implanted:Qty: 1 on 01/13/2009 at [place] [facility] [place]A: Abdomen MICROVASIVE [id number] / / [id number] Clip Resolution 360 Endo 235cm - [id number] Implanted:Qty: 1 on 12/10/2022 by Lacie England MD at OR [facility] [employer] : ENDOSCOPY [id number] 07/02/2025 [id number] / / [id number] Clip Resolution 360 Endo 235cm - [id number] Implanted:Qty: 1 on 12/10/2022 by Lacie England MD at OR [facility] [employer] : ENDOSCOPY [id number] 07/02/2025 [id number] / / [id number] Stent Biliary Adult L30mm Dia1 - [id number] Implanted:Qty: 1 on 10/26/2023 by Lacie England MD at OR [facility] COOK : JOHANNA COURTNEY [id number] 06/27/2026 [id number] / / [id number] documented as of this encounter Visit Diagnoses Diagnosis COPD, group D, by GOLD 2017 classification (HCC) documented in this encounter Advance Directives Documents on File Type Date Recorded Patient C Software Engineer Expl anation Power of Shuttlecock Assembler 07/30/2022 POWER OF A TTORNEY * Full [...] and were consensually agreed upon. Care Teams Towboat Pilot Relationship Specialty Start Date End Date Lalo Carias MD [address] [place] [address] PCP - General 12/21/05 documented as of this encounter
--- OUTSIDE RECORDS SUMMARY | 2024-04-26 10:53 | External Medical Summary | Summary of Care ---
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 30 mL 1 01/11/2023 Active [...] D, by GOLD 2017 classification ([facility]) Inhale 2 Puffs by mouth every 4 hours as needed for Wheezing. 54 g 6 11/23/2023 Active Furosemide 20 MG Oral Tablet (Lasix) TAKE 1 TABLET BY MOUTH twice DAILY 180 Tablet 1 12/08/2023 Active predniSONE 20 MG Oral Tablet (Deltasone)Indicatio ns:COPD, group D, by GOLD 2017 classification ([facility]) Take 2 Tablets by mouth in the morning. USE NEEDED FOR EXACERBATION. COPD RESCUE KIT. 10 Tablet 12/09/2023 Active Metoprolol Tartrate 25 MG Oral Tablet (Lopressor) Take 1 Tablet by mouth in the morning and 1 Tablet before bedtime. 180 Tablet 3 12/22/2023 Active Apixaban 2.5 MG Oral Tablet (Eliquis)Indications :Recurrent cerebrovascular accidents (CVAs) ([facility]) Take 1 Tablet by mouth in the morning and 1 Tablet before bedtime. 120 Tablet 1 01/04/2024 Active Doxycycline Hyclate 100 MG Oral TabletIndications:CO PD, group D, by GOLD 2017 classification ([facility]) Take 1 Tablet by mouth [...] D, by GOLD 2017 classification ([facility]) 2.5 mg NEBULIZER PRN 10/03/2023 [...] Wheezing Medication Regimen Class D - Inhaled [id number]-[id number] Combination Inhaler (Trellegy) Remote Patient Monitoring Vendor: [...] 0 11/11/2022 Last Assessment & Plan: Allopurinol detention No new attacks GINNY on CPAP 11/11/2022 [...] in 1 month CONTUSION OF KNEE, LEFT 03/15/2006 02/2 10/2011 Edema 03/15/2006 06/14/2011 Family history of other [...] Never Smokeless Tobacco: Never Tobacco Cessation:Counseling Given: No Alcohol Use Standard Drinks/Week Comments Yes 3 [...] Sign Reading Time Taken Comments Blood Pressure 126/72 01/26/2024 9:44 AM EDT Pulse 70 01/26/2024 9:44 AM EDT Temperature - - Respiratory Rate - - Oxygen Saturation - - Inhaled Oxygen Concentration - - Weight - [...] No 10/21/2023 documented as of this encounter Progress Notes * Bryan Pacheco CRNP - 01/26/2024 9:50 AM EDT Images from the original note were not included. Date of Service: 01/26/2024 9:49 AM Mikhail Fung is a 73 year old male. Patient being seen in consultation at the request of Jairo Kingston MD Chief Complaint: Surveillance of s/p open AAA repair in 2008 as well as arch and descending thoracic aneurysms. Accompanied by and daughter. HPI: JUXTARENAL AORTIC ANEURYSM: MRI of lumbar spine in late 11/24 @ [facility] with incidental finding of AAA. Aortic duplex of 12/19/08 @ [facility] demonstrated a 5 cm AAA. S/P open repair of a 5.7cm juxtarenal AAA with a tube graft on 01/13/[address] Suazo. He then also underwent repair of an asymptomatic ventral hernia by Dr. Desouza 01/28/10 at [facility]. THORACIC ANEURYSM: Denies any s/s r/t this. STROKE HX: In September 2018 he had some vague visual blurring of a day or 2 duration (both eyes) without any otherneurologic symptoms and was found on extensive inpatient workup to have had a left occipital infarction, essentially unremarkable angiographic studies, an echocardiogram that showed aortic stenosis, and he was discharged on aspirin and Plavix with intent to stop the aspirin after 21 days, continue the Plavix, and to obtain a Zio patch, a Cardiology consult, and an ophthalmological evaluation. 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 Aspirin was discontinued [wasn't aware he was still on]. Eliquis was added to Plavix. Poor balance. Uses supplemental oxygen. Current Outpatient Medications Medication Sig Dispense Refill [...] 0.1 % Nasal Solution (Astelin) Administer 1 Grayson into nostril in the morning and 1 Grayson before bedtime. 30 mL 1 Ezetimibe 10 MG Oral Tablet (Zetia) TAKE ONE TABLET BY MOUTH EVERY MORNING 90 Tablet 3 Docusate Sodium 100 MG Oral Capsule (Colace) Take 1 Capsule by mouth 2 times a day as needed for Constipation. (Patient taking differently: Take 1 Capsule by mouth in the morning and 1 Capsule beforebedtime.) 180 Capsule 3 Pantoprazole Sodium 40 MG [...] hours as needed (sob). 360 mL 5 Fluticasone Propionate 50 MCG/ACT Nasal Suspension (Flonase) INSTILL 2 SPRAYS INTO EACH NOSTRIL EVERY DAY 48 g 3 Trelegy Ellipta 100-62.5-25 MCG/ACT Aerosol Powder Breath Activated (Klshpquwesx-Bslfpuivkpmd-Erlzydmaeu) INHALE ONE PUFF BY MOUTH EVERY DAY [...] as needed for Wheezing. 54 g 6 Furosemide 20 MG Oral Tablet (Lasix) TAKE 1 TABLET BY MOUTH twice DAILY 180 Tablet 1 predniSONE 20 MG Oral Tablet (Deltasone) Take 2 Tablets by mouth in the morning. USE NEEDED FOR EXACERBATION. COPD RESCUE KIT. 10 Tablet 0 Metoprolol Tartrate 25 MG Oral Tablet (Lopressor) Take 1 Tablet by mouth in the morning and 1 Tablet before bedtime. 180 Tablet 3 Apixaban 2.5 MG Oral Tablet (Eliquis) Take 1 Tablet by mouth in the morning and 1 Tablet before bedtime. 120 Tablet 1 Doxycycline Hyclate 100 MG Oral Tablet Take 1 Tablet by mouth in the morning and 1 Tablet before bedtime. For as needed Rescue kit use when directed to take for COPD exacerbation. 14 Tablet 0 Klor-Con M10 10 MEQ Oral Tablet Extended Release TAKE 1 TABLET BY MOUTH ONCE A DAY ON TUESDAY, TUESDAY, AND TUESDAY ONLY. Current Facility-Administered Medications Medication Dose Route Frequency Provider Last Rate Last Admin Albuterol Sulfate (Proventil) (2.5 MG/3ML) 0.083% inhalation solution 2.5 mg 2.5 mg Nebulizer PRN Review of patient's allergies indicates: Allergen Reactions Pavan Inhibitors Other (Please comment) Hyperkalemia Patient Active Problem List Diagnosis HTN, goal below 140/90 S/P Lumbar disc excision, fusion w/ Implants Dyslipidemia, goal LDL below 100 History of shingles History of AAA (abdominal aortic aneurysm) repair Hx of nonmelanoma skin cancer Stenosis of left renal artery (HCC) Abdominal aortic aneurysm without rupture (HCC) Thoracic aorta atherosclerosis (HCC) Hyperparathyroidism (HCC) Iron deficiency anemia due to chronic blood loss Severe aortic stenosis History of CVA (cerebrovascular accident) without residual deficits Waldenstrom macroglobulinemia Anemia associated with chronic renal failure Acute on chronic blood loss anemia Monoclonal paraproteinemia Benign hypertensive kidney disease, stage IV (HCC) History of supraventricular tachycardia Idiopathic chronic gout of foot without tophus GINNY on CPAP History of biliary stent insertion GI bleed Hypertensive heart and chronic kidney disease with diastolic congestive heart failure (HCC) Shaggy aorta syndrome (HCC) Physical deconditioning COPD, group D, by GOLD 2017 classification (HCC) Chronic kidney disease, stage 4 (severe) (HCC) Chronic respiratory failure, unsp w hypoxia or hypercapnia (HCC) Chronic diastolic congestive heart failure (HCC) Chronic obstructive pulmonary disease (HCC) Supraventricular tachycardia (HCC) Hypertensive chronic kidney disease with stage 1 through stage 4 chronic kidney disease, or unspecified chronic kidney disease Supraventricular tachycardia (HCC) History of central retinal artery occlusion SBO (small bowel obstruction) (HCC) MAGDALENO (acute kidney injury) (HCC) Chronic hypoxic respiratory failure, on home oxygen therapy (HCC) Malnutrition of moderate degree (HCC) Past Medical History: Diagnosis Date Abdominal aortic [...] performed by Jayna Montana MD at ENDOSCOPY [facility] COLONOSCOPY, DIAGNOSTIC (RECTUM) 08/02/2017 adenomatous polyps, diverticulosis, repeat 3 yrs/COLONOSCOPY FLEXIBLE PROXIMAL DIAGNOSTIC performedby Lacie England MD at ENDOSCOPY [facility] COLONOSCOPY, DIAGNOSTIC (RECTUM) 01/02/2021 benign adenomatous polyp, diverticulosis, repeat 5 yrs / [facility] COLONOSCOPY, GI REFERRAL OP 08/2004 polyps, repeat 08/23 EGD, FLEXIBLE, DIAGNOSTIC 02/20/2018 normal / [facility] EGD, FLEXIBLE, DIAGNOSTIC 11/04/2021 gastritis, gastric ulcer, repeat 3 mo / [facility] EGD, FLEXIBLE, DIAGNOSTIC 03/03/2022 normal egd, EGD, FLEXIBLE, DIAGNOSTIC N/A 12/28/2022 clotted blood gastric fundus, cleared/single actively bleeding angioectasia stomach, treated with APC, padlock clip/cholecystoduodenal axios stent duodenum/EGD/[place] EGD, FLEXIBLE, DIAGNOSTIC N/A 02/23/2023 retained endoclips stomach/2 non-bleeding angioectasias stomach, treated with APC and clips/cholecystoduodenostomy Axios stent intact/repeat 6 months/EGD/[place] EGD, FLEXIBLE, DIAGNOSTIC N/A 10/26/2023 ESOPHAGOGASTRODUODENOSCOPY (EGD), FLEXIBLE, TRANSORAL, DIAGNOSTIC performed by Lacie England MD at OR [facility] EGD, FLEXIBLE, W/CYST DRAINAGE N/A 12/10/2022 single non-bleeding angioectasia stomach/ESOPHAGOGASTRODUODENOSCOPY (EGD), FLEXIBLE, TRANSORAL, WITH DRAINAGE PSEUDOCYST performed by Lacie England MD at OR [facility] EGD, FLEXIBLE,W/ENDOSCOPIC US 11/04/2022 CBD dilation, CBD stones, angioectasias in the stomach / [facility] EGD, W/ENDOSCOPIC US N/A 12/10/2022 cholecystoduodenostomy performed using Axios stent/repeat 1 year/ESOPHAGOGASTRODUODENOSCOPY (EGD), FLEXIBLE, TRANSORAL, ENDOSCOPIC ULTRASOUND performed by Lacie England MD at OR [facility] ERCP 11/04/2022 choledocholithiasis, stent placed, repeat 3 mo / [facility] ERCP 11/26/2022 clots found in biliary tree, stent placed / [facility] ERCP, DIAGNOSTIC, SPECIMEN COLLECTION N/A 12/10/2022 one stent removed from CBD/ENDOSCOPIC RETROGRADE CHOLANGIOPANCREATOGRAPHY (ERCP) DIAGNOSTIC performed by Lacie England MD at OR [facility] MISCELLANEOUS ORDER ([facility] ONLY) 01/28/2010 Lysis of extensive adhesions, incisional hernia repair laparoscopically 01/28/10 [facility], Dr. 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 Employer: [employer] Employer: [id number] Tobacco Use Smoking status: Former Current packs/day: 0.00 Average packs/day: 1 pack/day for 35.0 years (35.0 ttl pk-yrs) Types: Cigars, Cigarettes Start date: 1973 Quit date: 2008 Years since quittin.7 Passive exposure: Never Smokeless tobacco: Never Vaping Use Vaping status: Never Used Substance and Sexual Activity Alcohol use: Yes Alcohol/week: 3.0 standard drinks of alcohol Types: 3 12 oz of beer per week Drug use: No Sexual activity: Yes Partners: Female Other Topics Concern Not on file Social History Narrative 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 (Adult - for ages 18 years and over): Yes Does your family have trouble paying for medicine? (Household - for ages 0-17 years): Not on file Food Insecurity: Food Insecurity Present (12/12/2023) Food Insecurity Do you need food for this week? (Adult - for ages 18 years and over): Yes Are you able to get enough food for your family? (Household - for ages 0-17 years): Not on file Does your family need food this week? (Household - for ages 0-17 years): Not on file Do you always have enough food for your family? (Household - for ages 0-17 years): Not on file Transportation Needs: No Transportation Needs (12/12/2023) Transportation Needs Do you have trouble getting a ride to medical visits or work? (Adult - for ages 18 years and over):Not on file Does your family have a hard time getting a ride to doctors visits? (Household - for ages 0-17 years): Not on file Has lack of transportation kept you from medical appointments, meetings, work, or from getting things needed for daily living? Check all that apply. (Adult - for ages 18 years and over): No Do you (or your family) have trouble finding or paying for a ride (transportation)? (Household - for ages 0-17 years): Not on file Social Connections: Socially Integrated (12/12/2023) Social Connections How often do you feel lonely or isolated from those around you? (Adult - for ages 18 years and over): Never Housing Stability: Low Risk (12/12/2023) Housing Stability Do you currently live in a residential or have no steady place to sleep at night? (Adult - for ages 18 years and over): No Do you think you are at risk of becoming homeless? (Adult - for ages 18 years and over): Not on file Does your family worry about paying for your home or becoming homeless? (Household - for ages 0-17 years): Not on file Are you homeless or worried that you might be in the future? (Adult - for ages 18 years and over): No Are you (or your family) homeless or worried that you might be in the future? (Household - for ages0-17 years): Not on file Vaping/E-Cigarette Use Vaping/E-Cigarette Use Never User Vaping/E-Cigarette Substances Vaping/E-Cigarette Devices REVIEW OF SYSTEMS: Constitutional: denies fever/chills Eyes: denies amaurosis fugax Ears, Nose, Throat: denies difficulty swallowing Cardiovascular: Denies chest pain Respiratory: Reports shortness of breath, reports CAMARENA, uses supplemental oxygen Gastrointestinal: Denies bright red blood per rectum. Hx recent recurrent GI bleeds Genitourinary: Denies hematuria. Neurological: Denies CVA/TIA Skin: denies ulcers All other systems negative except for those noted above and in the history of present illness (HPI). GENERAL MULTI-SYSTEM PHYSICAL EXAM: BP 126/72 (BP Site: Left Arm, BP Position: Sitting, BP Cuff Size: Regular) | Pulse 70 GENERAL MULTI-SYSTEM PHYSICAL EXAM: GENERAL: No acute distress RESPIRATORY: Respiratory effort normal. Wearing nasal cannula oxygen PSYCHIATRIC: orientation to time, place and person normal. PULSE SCALE: Carotid Right:----Bruit: No Left:----Bruit: No Radial Right: 3 Left: 3 Femoral Right: 3 Left: 3 Popliteal Right:3 Left: 3 Dorsalis Pedis Right: 2 Left: 2 Posterial Tibial Right: 2 Left: 2 PULSE SCALE: 4=Aneurysmal; 3=Normal; 2=Diminished; 1=Barely Palpable; 0=Absent DIAGNOSTIC STUDIES: : CT C/A/P withOUT: 4.5 cm ascending. 6 cm arch. 2.8 cm L subclavian. 6 cm descending saccular aneurysm. 2.6 cm saccular LCIA 01/27/23: CT C/A/P withOUT: 4.5 cm ascending. 5.8 cm arch. 6 cm descending saccular aneurysm. 2.6 cm saccular LCIA The above diagnostic images were directly visualized and independently interpreted by me on 01/26/2024 with results as above 06/25/22: CT Chest wo contrast: 4.2 cm ascending thoracic aorta, 5.4 cm aortic arch, 4.4 cm descending thoracic aorta, 2.5 cm L SCA, ectatic brachiocephalic artery Date: 11/28/2020; Location of Study: [facility]; Modality: CT; descending thoracic aorta 4.4 cm, proximal to previous open AAA repair 4.2 cm. R MARIANA 1.7 cm. L MARIANA 1.6 Date: 02/08/2019; Location of Study: [facility]; Modality: CT; Ascending aorta measures 4.3 cm, aortic arch measures 4.6 cm, descending aorta measures 4.3 cm, 3.8cm at the renals. Shaggy aorta. 10/13/18 Echo: The examination is adequate to evaluate the referral indication. The LV wall thickness is mildly increased (concentric). The left ventricular wall motion is normal. The aortic valve has three leaflets. The aortic valve is severely calcified. There is no significant aortic regurgitation. 12/08/16: CT: AAA repair intact, 4.0 cm ascending, 4.1 cm descending aorta, and 4.0 cm at renals. Severe atheromatous debris noted throughout the aorta. 12/08/16: art duplex: no evidence of fem/pop aneurysms. 10/28/14 CT: AAA repair intact, ascending aorta measures 4 cm, shaggy descending aorta with severe atheromatous debris, mid- descending aorta 4 cm, calcifications at origin of left renal artery, aortameasures 3.7 cm at level of renals, iliac calcifications 01/22/14: BLE art duplex: RCFA 1.5 cm, R pop 0.7 cm, LCFA 1.1 cm, L pop 0.8 cm 01/15/10 BLE art duplex: RCF .93cm, Rpop .82cm, LCF .91cm, Lpop .78cm 12/26/08 CT (Endograft Protocol): 5.4 x 5.6 cm AAA. Neck is extremely tortuous. LABS: Creatinine Results: Lab Results Component Value Date/Time CREATININE - [facility] 2.0 (H) 12/30/2023 01:53 PM CREATININE - [facility] 2.1 (H) 10/26/2023 05:45 AM CREATININE - [facility] 2.1 (H) 10/25/2023 04:43 AM CREATININE - [facility] 1.61 (A) 06/10/2020 12:00 AM CREATININE - [facility] 2.2 (H) 02/08/2020 09:48 AM CREATININE - [facility] 2.0 (H) 05/24/2019 09:33 AM CREATININE - [facility] 2.0 (H) 04/30/2019 10:18 AM CREATININE POCT - [facility] 2.0 (H) 02/08/2019 01:16 PM CREATININE POCT - [facility] 1.5 (H) 12/08/2016 10:30 AM CREATININE POCT - [facility] 1.0 10/28/2014 08:46 AM CREATININE, RANDOM URINE - [facility] 36 12/30/2023 03:54 PM CREATININE, RANDOM URINE - [facility] 135 02/22/2023 02:44 PM CREATININE, RANDOM URINE - [facility] 385 12/31/2021 09:14 AM CREATININE, RANDOM URINE - [facility] 107 05/24/2019 09:33 AM CREATININE, RANDOM URINE - [facility] 280 02/06/2019 10:11 AM CREATININE, RANDOM URINE - [facility] 28 12/21/2017 07:36 AM Lab Results Component Value Date/Time LDL (CALCULATED) 147. (H) 01/17/1996 08:30 AM LDL CHOLESTEROL (CALCULATED) - [facility] 58 03/18/2022 01:04 PM LDL CHOLESTEROL (CALCULATED) - [facility] 78 02/06/2019 10:11 AM LDL CHOLESTEROL (DIRECT MEASURE) - [facility] 77 04/30/2019 10:18 AM Hemoglobin Results: Lab Results Component Value Date/Time HGB 11.8 (L) 01/13/2024 01:56 PM HGB 11.1 (L) 12/30/2023 01:53 PM HGB 10.7 (L) 12/02/2023 01:54 PM HGB 6.4 (LL) 12/08/2022 12:43 PM HGB 11.1 (A) 06/10/2020 12:00 AM HGB 12.1 (L) 02/08/2020 09:48 AM HGB 13.4 (L) 05/24/2019 09:33 AM HGB 14.8 09/28/2018 10:41 AM The above clinical lab tests were reviewed by me on 01/26/2024. CARDIAC: IMPRESSIONS: S/P open repair of a 5.7 cm juxtarenal AAA on 01/13/[address] Suazo 4.5 cm ascending thoracic aortic aneurysm 6 cm aortic arch aneurysm 2.8 cm L subclavian artery aneurysm 6 cm descending thoracic aneurysm, saccular 2.6 cm saccular LCIA Severe . S/P repair of asymptomatic ventral hernia 01/28/[address] Desouza. 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 Aspirin discontinued. Eliquis added to clopidogrel (Plavix later stopped). S/P CVA September 2018 with left parietal/occipital lobe infarct. Imaging with a prior right frontal lobe infarct, left occipital lobe infarct, old lacunar infarct, extensive atherosclerosis without evidence of severe stenosis in the cervical arteries, chronic microvascular ischemic changes, cerebral vascular calcifications Reformed smoker HTN. Recurrent GI bleeds s/p surgery COPD. Supplemental oxygen. CKD. He reports he would refuse dialysis. Dyslipidemia, on statin PLAN: Had an open juxtarenal AAA repair in 2008 He has large arch, L subclavian, and descending thoracic aneurysms. He has a shaggy aorta. He has severe . He has CKD4 (reports he would REFUSE dialysis) He is on supplemental oxygen. He is not a surgical candidate. I see no value to surveillance, as I do not think that there will ever be a "safe" surgery to offerhim. He and his family do understand this aneurysm could take his life. Do NOT advise surveillance. Should aneurysms rupture, he should have palliative care only. On 2.5 mg Eliquis BID (for hx of strokes), per Hematology Continue 80 mg Lipitor daily for hyperlipidemia along with 10 mg Zetia. I discussed family screening for aortic aneurysms. F/u prn. The patient was seen and examined with Mikhail Suazo MD. YARA Olea I have reviewed the advanced practitioner's documentation on the date of service referenced in note, and I agree with, and take responsibility for the plan of care. Here today with and daughter for f/u of aneurysmal disease S/P open juxtarenal AAA repair 2009 Now with 6 cm thoracic arch aneurysm Past 4-5 years have been rough, 2 strokes, difficulty walking now, has severe with SOB on exertion, CKD Not a surgical candidate at this point and he understands this and daughter understand as well So we are not going to follow his aortic aneurysmal disease any longer Can f/u PRN Mikhail Suazo MD Section of Vascular [place] [address] [phone] documented in this encounter Nursing Notes * Melony Ruiz MED ASSIST - 01/26/2024 9:45 AM EDT Patient was instructed to not get up on the exam table/exam chair until directed and assisted by their provider; patient is to remain seated in the chair/ wheelchair/ exam table/ exam chair for fall prevention and safety reasons. Patient is aware to have assistance to step down off exam table/exam chair with personnel. Patient voiced full comprehension of instructions. ALEJANDRO Villafana documented in this encounter Plan of Treatment Upcoming Encounters Date Type Department Care Team (Late st Contact Info) Description 01/27/2024 2:00 PM EDT Hem/Onc Treatment Hematology/Oncology Treatment, [place] [address] [place] [phone] Hannah, Chair 2 Hem Onc Scenery [address] [place] [address] 02/23/2024 3:00 PM EST Home Visit nick [place] [address] [place] [address] Heath Zhang PA-C [address] [place] [address] 02/24/2024 2:00 PM EST Hem/Onc Treatment Hematology/Oncology Treatment, [place] [address] [place], [place] [phone] Hannah, Chair 3 Hem Onc Scenery [address] [place] [address] 02/27/2024 12:30 PM EST Home Visit [facility], [facility] [address] [facility] [place] [address] Jenifer Linder RN [address] [place] [address] 03/28/2024 3:20 PM EST Office Visit [facility] [address] [facility] [place] [phone] Shanika Fitzgerald, [address] [facility] [place] [address] 04/03/2024 10:30 AM EST PulmDiagnostic Pulmonary Function Lab, [facility] [address] [facility] [place] [address] [place], [address] [facility] [place] [address] 04/03/2024 11:00 AM EST PulmDiagnostic Pulmonary Function Lab, [facility] [address] [facility] [place] [address] [address], [address] [facility] [place] [address] 04/03/2024 1:40 PM EST Office Visit Pulmonary Medicine, [facility] [address] [place] [address] Devin Hodge MD [address] [place] [address] 04/24/2024 6:00 PM EST Office Visit [facility] [address] [place] [phone] Jairo Kingston MD [address] [place] [address] 06/27/2024 2:45 PM EDT Office Visit Hematology/Oncology [facility] [address] [place] [phone] Michael Snyder MD [address] [place] [address] 07/30/2024 4:00 PM EDT Office Visit Nephrology, [facility] [address] [facility] [place], [place] [address] Reggie Azevedo MD [address] [place] [address] Scheduled Procedures Name Priority Associated Diagnoses Date/Ti [...] 12/30/2023, 07/0 09/2023, 02/22/2023, Additional history exists Hgb 01/12/2025 01/13/2024, 12/17, 12/02/2023, Additional history exists AAA Monitoring 01/18/2025 01/19/2024, 070 08/2023, 10/19/2023, Additional history exists Colonoscopy 01/02/2026 [...] this encounter Medical Devices Implanted Type Area Director Case Management Device Identifier Shelf Expiration Date Model / Serial / Lot Graft Hemasheild 20mm [id number] - [id number] Implanted:Qty: 1 on 01/13/2009 at OR [facility] N/A: Abdomen MICROVASIVE [id number] / / [id number] Clip Resolution 360 Endo 235cm - [id number] Implanted:Qty: 1 on 12/10/2022 by Lacie England MD at OR [facility] [employer] : ENDOSCOPY [id number] 07/02/2025 [id number] / / [id number] Clip Resolution 360 Endo 235cm - [id number] Implanted:Qty: 1 on 12/10/2022 by Lacie England MD at OR [facility] [employer] : ENDOSCOPY [id number] 07/02/2025 [id number] / / [id number] Stent Biliary Adult L30mm Dia1 - [id number] Implanted:Qty: 1 on 10/26/2023 by Lacie England MD at OR [facility] COOK : JOHANNA COURTNEY [id number] 06/27/2026 [id number] / / [id number] documented as of this encounter Visit Diagnoses Diagnosis 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 Care Teams Director Of Physician Practices Relationship Specialty Start Date End Date Jairo Kingston MD [address] [place] [address] PCP - General 9/5/06 documented as of this encounter
--- OUTSIDE RECORDS SUMMARY | 2024-04-26 10:53 | External Medical Summary | Summary of Care ---
Author Name Unknown Organization [facility] Address [address] [place] [address] Phone [phone] Care Team Providers Care Pneumatic Systems Operator Name Role Phone Lalo Carias MD Primary Care Provider +1- [phone] Reason for Visit * Reason Onset Date Comments Test Results 01/24/2024 Encounter Details Date Type Department Care Team (Late st Contact Info) Description 01/24/2024 Telephone Vascular Surgery, [facility] [address] [place] [address] Kathie Ybarra PA-C [address] [place] [address] Test Results Allergies Active Allergy [...] 0.1 % Nasal Solution (Astelin) Administer 1 [place] into nostril in the morning and 1 [place] before bedtime. 30 mL 1 3 Active [...] COPD, group D, by GOLD 2017 classification ([facility]) Inhale 2 Puffs by mouth every 4 hours as needed for Wheezing. 54 g 6 4 Active Furosemide 20 MG Oral Tablet (Lasix) TAKE 1 TABLET BY MOUTH twice DAILY 180 Tablet 1 4 Active predniSONE 20 MG Oral Tablet (Deltasone)Indicatio ns:COPD, group D, by GOLD 2017 classification ([facility]) Take 2 Tablets by mouth in the morning. USE NEEDED FOR EXACERBATION. COPD RESCUE KIT. 10 Tablet 4 Active Metoprolol Tartrate 25 MG Oral Tablet (Lopressor) Take 1 Tablet by mouth in the morning and 1 Tablet before bedtime. 180 Tablet 3 4 Active Apixaban 2.5 MG Oral Tablet (Eliquis)Indications :Recurrent cerebrovascular accidents (CVAs) ([facility]) Take 1 Tablet by mouth in the morning and 1 Tablet before bedtime. 120 Tablet 1 4 Active Doxycycline Hyclate 100 MG Oral TabletIndications:CO PD, group D, by GOLD 2017 classification ([facility]) Take 1 Tablet by mouth in the morning and 1 Tablet before bedtime. For as needed Rescue kit use when directed to take for COPD exacerbation. 14 Tablet 4 Active Doxycycline Hyclate 100 MG Oral TabletIndications:CO PD, group D, by GOLD 2017 classification ([facility]) Take 1 Tablet by mouth [...] mgIndications:COPD, group D, by GOLD 2017 classification ([facility]) 2.5 mg NEBULIZER PRN 10/03/2023 [...] Wheezing Medication Regimen Class D - Inhaled Ydpifpygmqqpmg-JODW-YFYC Combination Inhaler (Trellegy) Remote Patient Monitoring Vendor: [...] IV Last Assessment & Plan: Norfrancisco javier lopieter History of supraventricular tachycardia 11/12/19 Idiopathic chronic gout of foot without tophus 0 11/11/2022 Last Assessment & Plan: Allopurinol remote computer terminal operator No new attacks GINNY on CPAP [...] 9:50 AM EDT Office Visit Vascular Surgery, [address] [place] [address] Mikhail Suazo MD [address] [facility], [place] [address] 01/27/2024 2:00 PM EDT Hem/Onc Treatment Hematology/Oncology Treatment, [place] [address] [place] [phone] Park, Chair 2 Hem Onc Scenery 200 [facility] [place] [address] 02/23/2024 3:00 PM EST [facility] 132 [facility] [place] [address] Heath Zhang PA-C 132 [facility] [place] [address] 02/24/2024 2:00 PM EST Hem/Onc Treatment Hematology/Oncology Treatment, [place] [address] [place] [phone] Hannah, Chair 3 Hem Onc [facility] [address] [place] [address] [place] [address] 02/27/2024 12:30 PM EST Home Visit [facility], [facility] [address] [place] [address] Jenifer Linder RN [address] [place] [address] 03/28/2024 3:20 PM EST Office Visit Sleep Disorders Ctr [facility] [address] [place] [phone] Shanika Fitzgerald DO [address] [place] [address] 04/03/2024 10:30 AM EST PulmDiagnostic Pulmonary Function Lab, Health system [address] [place] [address] West, Pft 132 [facility] [place] [address] 04/03/2024 11:00 AM EST PulmDiagnostic Pulmonary Function Lab, Health system [address] [facility] [place] [address] West, Pft [address] [facility] [place] [address] 04/03/2024 1:40 PM EST Office Visit Pulmonary Medicine, Health system [address] [facility] [place] [address] Devin Hodge MD [address] [place] [address] 04/24/2024 6:00 PM EST Office Visit Located Within [facility] [address] [place] [phone] Lalo Carias MD [address] [place] [address] 06/27/2024 2:45 PM EDT Office Visit Hematology/Oncology [facility] [place] [address] [facility] [place] [phone] Michael Snyder MD 200 [facility] [place] [address] 07/30/2024 4:00 PM EDT Office Visit Nephrology, [facility] [address] [place] [address] Reggie Azevedo MD 200 [facility] [place] [address] Scheduled Procedures Name Priority Associated Diagnoses Date/Ti me COLONOSCOPY FLEXIBLE PROXIMAL DIAGNOSTIC Recall History of colon polyps Health Maintenance Due Date Last Done Comments Adult Wellness Visit 2014 *COPD SEVERITY VERIFIED BY PFT 08/28/2022 Albumin/Creatinine Ratio 10/08/2022 10/08/2021 COVID-19 Vaccine ( season) 2023 02/19/2021, 06/19/2020, 05/22/2020 Influenza Vaccine (FLU shot) (#1) 2023 01/10/2023, 03/04/2022, 01/15/2021, Additional history exists GFR 06/28/2024 12/30/2023, 1 , 10/25/2023, Additional history exists Depression Screening 10/09/2024 [...] this encounter Medical Devices Implanted Type Area Licensed Nuclear Control Room Operator Device Identifier Shelf Expiration Date Model / Serial / Lot Graft Hemasheild 20mm [id number] - [id number] Implanted:Qty: 1 on 01/13/2009 at OR [facility] N/A: Abdomen MICROVASIVE [id number] / / [id number] Clip Resolution 360 Endo 235cm - [id number] Implanted:Qty: 1 on 12/10/2022 by Lacie England MD at OR [facility] [employer] : ENDOSCOPY [id number] 07/02/2025 [id number] / / [id number] Clip Resolution 360 Endo 235cm - [id number] Implanted:Qty: 1 on 12/10/2022 by Lacie England MD at OR [facility] [employer] : ENDOSCOPY [id number] 07/02/2025 [id number] / / [id number] Stent Biliary Adult L30mm Dia1 - [id number] Implanted:Qty: 1 on 10/26/2023 by Lacie England MD at OR [facility] COOK : JOHANNA COURTNYE [id number] 06/27/2026 [id number] / / [id number] documented as of this encounter Visit Diagnoses Diagnosis COPD, group D, by GOLD 2017 classification (HCC) documented in this encounter Advance Directives Documents on File Type Date Recorded Patient Pharmacy Intern Expl anation Power of Rehab Department Manager 07/30/2022 POWER OF A TTORNEY * [...] and were consensually agreed upon. Care Teams Pneumatic Systems Operator Relationship Specialty Start Date End Date Lalo Carias MD [address] [place] [address] PCP - General 12/21/05 documented as of this encounter
--- OUTSIDE RECORDS SUMMARY | 2024-04-26 10:53 | External Medical Summary | Summary of Care ---
Author Name Unknown Organization [facility] Address [address] [place] [address] Phone [phone] Care Team Providers Care Atg Architect Name Role Phone Lalo Carias MD Primary Care Provider +1- [phone] Reason for Visit * Reason Onset Date Comments Test Results 01/24/2024 Encounter Details Date Type Department Care Team (Late st Contact Info) Description 01/24/2024 Telephone Vascular Surgery, [facility] [address] [place] [address] Kathie Ybarra PA-C [address] [place] [address] Test Results Allergies Active Allergy Reactions Criticality Noted Date Comments Pavan Inhibitors Other (Please comment) 0 Hyperkalemia documented as of this encounter (statuses as of 01/25/2024) Medications Medication Sig Dispensed Refills Start Date [...] 0.1 % Nasal Solution (Astelin) Administer 1 [place] into nostril in the morning and 1 [place] before bedtime. 30 mL 1 3 Active [...] group D, by GOLD 2017 classification ([facility]) Inhale 2 Puffs by mouth every 4 hours as needed for Wheezing. 54 g 6 4 Active Furosemide 20 MG Oral Tablet (Lasix) TAKE 1 TABLET BY MOUTH twice DAILY 180 Tablet 1 4 Active predniSONE 20 MG Oral Tablet (Deltasone)Indicatio ns:COPD, group D, by GOLD 2017 classification ([facility]) Take 2 Tablets by mouth in the morning. USE NEEDED FOR EXACERBATION. COPD RESCUE KIT. 10 Tablet 4 Active Metoprolol Tartrate 25 MG Oral Tablet (Lopressor) Take 1 Tablet by mouth in the morning and 1 Tablet before bedtime. 180 Tablet 3 4 Active Apixaban 2.5 MG Oral Tablet (Eliquis)Indications :Recurrent cerebrovascular accidents (CVAs) ([facility]) Take 1 Tablet by mouth in the morning and 1 Tablet before bedtime. 120 Tablet 1 4 Active Doxycycline Hyclate 100 MG Oral TabletIndications:CO PD, group D, by GOLD 2017 classification ([facility]) Take 1 Tablet by mouth in the morning and 1 Tablet before bedtime. For as needed Rescue kit use when directed to take for COPD exacerbation. 14 Tablet 4 Active Doxycycline Hyclate 100 MG Oral TabletIndications:CO PD, group D, by GOLD 2017 classification ([facility]) Take 1 Tablet by mouth in [...] group D, by GOLD 2017 classification ([facility]) 2.5 mg NEBULIZER PRN 10/03/2023 10/02/2024 Acti ve documented as of this encounter (statuses as of 01/25/2024) Active Problems Problem Noted Date Diagnosed Date Malnutrition of moderate degree 10/22/2023 SBO (small bowel obstruction) 10/21/2023 MAGDALENO (acute kidney injury) 10/21/2023 Chronic hypoxic respiratory failure, on home oxy gen therapy 10/21/2023 Last Assessment & Plan: "RED FLAG" COPD symptoms: Increased dyspnea on exertion Cough Wheezing Medication Regimen Class D - Inhaled Wtvkpoyoildbtk-IUVE-EUIG Combination Inhaler (Trellegy) Remote Patient Monitoring Vendor: [...] 0 11/11/2022 Last Assessment & Plan: Allopurinol [facility] No new attacks GINNY on CPAP 11/11/2022 [...] as of this encounter (statuses as of 01/25/2024) Resolved Problems Problem Noted Date Diagnosed Date [...] as of this encounter (statuses as of 01/25/2024) Immunizations Name Administration Dates Next Due COVID-19 [...] encounter Miscellaneous Notes * Telephone Encounter - Brianna Najera LPN [...] 9:50 AM EDT Office Visit Vascular Surgery, [address] [place] [address] Mikhail Suazo MD [address] [facility] [place] [address] 01/27/2024 2:00 PM EDT Hem/Onc Treatment Hematology/Oncology Treatment, [place] [address] [place] [phone] Hannah, Chair 2 Hem Onc Scenery [address] [place] [address] 02/23/2024 3:00 PM EST [facility], [facility] [address] [place] [address] Heath Zhang PA-C [address] [place] [address] 02/24/2024 2:00 PM EST Hem/Onc Treatment Hematology/Oncology Treatment, [place] [address] [place], [place] [phone] Hannah, Chair 3 Hem Onc Scenery [address] [place] [address] 02/27/2024 12:30 PM EST Home Visit [facility], [facility] [address] [place] [address] Jenifer Linder RN [address] [place] [address] 03/28/2024 3:20 PM EST Office Visit Sleep Disorders Ctr [facility] [address] [place] [phone] Shanika Fitzgerald DO [address] [place] [address] 04/03/2024 10:30 AM EST PulmDiagnostic Pulmonary Function Lab, [facility] [address] [place] [address] Lars Dayt [address] [place] [address] 04/03/2024 11:00 AM EST PulmDiagnostic Pulmonary Function Lab, [facility] [address] [place] [address] West, Pft [address] [facility] [place] [address] 04/03/2024 1:40 PM EST Office Visit Pulmonary Medicine, [facility] 132 [facility] [place] [address] Devin Hodge MD [address] [facility] [address] 04/24/2024 6:00 PM EST Office Visit Located Within [facility] [address] [place] [phone] Lalo Carias MD [address] [place] [address] 06/27/2024 2:45 PM EDT Office Visit Hematology/Oncology [facility] 200 [facility] [place] [phone] Michael Snyder MD 200 [place] [address] 07/30/2024 4:00 PM EDT Office Visit Nephrology, [facility] 200 [facility] [place] [address] Reggie Azevedo MD 200 [place] [address] Scheduled Procedures Name Priority Associated Diagnoses Date/Ti [...] this encounter Medical Devices Implanted Type Area Senior Patient Account Representative Device Identifier Shelf Expiration Date Model / Serial / Lot Graft Hemasheild 20mm [id number] - [id number] Implanted:Qty: 1 on 01/13/2009 at [place] [facility] [place]/A: Abdomen MICROVASIVE [id number] / / [id number] Clip Resolution 360 Endo 235cm - [id number] Implanted:Qty: 1 on 12/10/2022 by Lacie England MD at OR [facility] [employer] : ENDOSCOPY [id number] 07/02/2025 [id number] / / [id number] Clip Resolution 360 Endo 235cm - [id number] Implanted:Qty: 1 on 12/10/2022 by Lacie England MD at OR [facility] [employer] : ENDOSCOPY [id number] 07/02/2025 [id number] / / [id number] Stent Biliary Adult L30mm Dia1 - [id number] Implanted:Qty: 1 on 10/26/2023 by Lacie England MD at OR [facility] COOK : JOHANNA COURTNEY [id number] 06/27/2026 [id number] / / [id number] documented as of this encounter Visit Diagnoses Diagnosis COPD, group D, by GOLD 2017 classification (HCC) documented in this encounter Advance Directives Documents on File Type Date Recorded Patient Rn Physician Office Expl anation Power of Audio Technician 07/30/2022 POWER OF A TTORNEY * [...] and were consensually agreed upon. Care Teams Atg Architect Relationship Specialty Start Date End Date Lalo Carias MD [address] [facility] [address] PCP - General 12/21/05 documented as of this encounter
--- OUTSIDE RECORDS SUMMARY | 2024-04-26 10:53 | External Medical Summary ---
Author Name Unknown Address Unknown Organization K09[facility] [place] [address] Laboratory Report Ordering Provider Test Date Status POOJA CAMERON 01/27/2024 13:46:18 Final Observation Date Value Abnormality Reference (Units ) Status SYNC LEUKOCYTES IN BLOOD BY AUTOMATED COUNT 01/27/2024 13:46:18 17.25 Above high normal 4.00-10.80 (K/uL) Final Segs 01/27/2024 13:46:18 96.2 Above high normal 40.0-75.0 (%) Final Lymphs % 01/27/2024 13:46:18 2.5 Below low normal 18.0-42.0 (%) Final Monos 01/27/2024 13:46:18 1.2 1.0-11.0 (%) Final Eosinophils 01/27/2024 13:46:18 0.0 0.0-6.0 (%) Final Basos 01/27/2024 13:46:18 0.1 0.0-2.0 (%) Final Absolute Segs 01/27/2024 13:46:18 16.60 Above high normal 1.80-7.70 (K/uL) Final Lymphs, absolute 01/27/2024 13:46:18 0.43 Below low normal 1.00-4.80 (K/ul) Final Monos, Abs 01/27/2024 13:46:18 0.20 0.00-1.10 (K/uL) Final Eos, Abs 01/27/2024 13:46:18 0.00 0.00-0.70 (K/uL) Final Basos, Abs 01/27/2024 13:46:18 0.02 0.00-0.20 (K/uL) Final Performing Location [facility] [place] [address]
--- OUTSIDE RECORDS SUMMARY | 2024-04-26 10:53 | External Medical Summary ---
Author Name Unknown Address Unknown Organization K09[facility] [place] [address] Laboratory Report Ordering Provider Test Date Status POOJA CAMERON 01/27/2024 13:46:18 Final Observation Date Value Abnormality Reference (Units ) Status WBC, Total 01/27/2024 13:46:18 17.25 Above high normal 4 .00-10.80 (K/uL) Final RBC 01/27/2024 13:46:18 3.62 4.50-5.25 (M/uL) Final Hemoglobin 01/27/2024 13:46:18 11.5 Below low normal 14 .0-16.8 (g/dL) Final HCT 01/27/2024 13:46:18 36.6 Below low normal 40. 0-48.4 (%) Final MCV 01/27/2024 13:46:18 101.1 82.0-99.5 (fL) Final MCH 01/27/2024 13:46:18 31.8 27.0-34.0 (pg) Final MCHC 01/27/2024 13:46:18 31.4 32.0-36.0 (g/dL) Final RDW 01/27/2024 13:46:18 17.4 11.5-15.5 (%) Final Platelets 01/27/2024 13:46:18 224 140-400 (K /uL) Final MPV 01/27/2024 13:46:18 10.7 6.6-11.1 ( fL) Final Performing Location [facility] [place] [address]
--- OUTSIDE RECORDS SUMMARY | 2024-04-26 10:53 | External Medical Summary | Summary of Care ---
Author Name Unknown Organization [facility] Address [address] [place] [address] Phone [phone] Care Team Providers Care Sales Commissions Analyst Name Role Phone Lalo Carias MD Primary Care Provider +1- [phone] Reason for Visit * Reason Onset Date Comments Test Results 01/24/2024 Encounter Details Date Type Department Care Team (Late st Contact Info) Description 01/24/2024 Telephone Vascular Surgery, [facility] [address] [place] [address] Kathie Ybarra PA-C [address] [place] [address] Test Results Allergies Active Allergy [...] 0.1 % Nasal Solution (Astelin) Administer 1 [place] into nostril in the morning and 1 [place] before bedtime. 30 mL 1 3 Active [...] group D, by GOLD 2017 classification ([facility]) Inhale 2 Puffs by mouth every 4 hours as needed for Wheezing. 54 g 6 4 Active Furosemide 20 MG Oral Tablet (Lasix) TAKE 1 TABLET BY MOUTH twice DAILY 180 Tablet 1 4 Active predniSONE 20 MG Oral Tablet (Deltasone)Indicatio ns:COPD, group D, by GOLD 2017 classification ([facility]) Take 2 Tablets by mouth in the morning. USE NEEDED FOR EXACERBATION. COPD RESCUE KIT. 10 Tablet 4 Active Metoprolol Tartrate 25 MG Oral Tablet (Lopressor) Take 1 Tablet by mouth in the morning and 1 Tablet before bedtime. 180 Tablet 3 4 Active Apixaban 2.5 MG Oral Tablet (Eliquis)Indications :Recurrent cerebrovascular accidents (CVAs) ([facility]) Take 1 Tablet by mouth in the morning and 1 Tablet before bedtime. 120 Tablet 1 4 Active Doxycycline Hyclate 100 MG Oral TabletIndications:CO PD, group D, by GOLD 2017 classification ([facility]) Take 1 Tablet by mouth in the morning and 1 Tablet before bedtime. For as needed Rescue kit use when directed to take for COPD exacerbation. 14 Tablet 4 Active Doxycycline Hyclate 100 MG Oral TabletIndications:CO PD, group D, by GOLD 2017 classification ([facility]) Take 1 Tablet by mouth in the [...] group D, by GOLD 2017 classification ([facility]) 2.5 mg NEBULIZER PRN 10/03/2023 10/02/2024 Acti [...] Wheezing Medication Regimen Class D - Inhaled Rltgozpakygeqp-UVSW-RVRE Combination Inhaler (Trellegy) Remote Patient Monitoring Vendor: [...] encounter Miscellaneous Notes * Addendum Note - Lalo Carias MD [...] 9:50 AM EDT Office Visit Vascular Surgery, [address] [place] [address] Mikhail Suazo MD [address] [facility] [place] [address] 01/27/2024 2:00 PM EDT Hem/Onc Treatment Hematology/Oncology Treatment, [place] [address] [place] [address] Hannah, Chair 2 Hem Onc Scenery [address] [place] [address] 02/23/2024 3:00 PM EST Home Visit [facility], [facility] [address] [facility] [place] [address] Heath Zhang PA-C [address] [place] [address] 02/24/2024 2:00 PM EST Hem/Onc Treatment Hematology/Oncology Treatment, [place] [address] [place], [place] [address] Park, Chair 3 Hem Onc Scenery [address] [place] [address] 02/27/2024 12:30 PM EST [facility] Visit [facility], [facility] [address] [place] [address] Jenifre Linder RN [address] [place] [address] 03/28/2024 3:20 PM EST Office Visit Sleep Disorders Ctr [facility] [address] [place] [address] Shanika Fitzgerald, [address] [place] [address] 04/03/2024 10:30 AM EST PulmDiagnostic Pulmonary Function Lab, [facility] [address] [facility] [place] [address] West, Pft [address] [facility] [place] [address] 04/03/2024 11:00 AM EST PulmDiagnostic Pulmonary Function Lab, [facility] [address] [facility] [place] [address] West, Pft [facility] [place] [address] 04/03/2024 1:40 PM EST Office Visit Pulmonary Medicine, [facility] [address] [place] [address] Devin Hodge MD [address] [place] [address] 04/24/2024 6:00 PM EST Office Visit [facility] [address] [place] [facility] [place] [phone] Lalo Carias MD [address] [place] [address] 06/27/2024 2:45 PM EDT Office Visit Hematology/Oncology [facility] [address] [place] [address] Michael Snyder MD [address] [place] [address] 07/30/2024 4:00 PM EDT Office Visit Nephrology, [facility] [address] [facility] [place] [address] Reggie Azevedo MD [address] [place] [address] Scheduled Procedures Name Priority Associated Diagnoses Date/Ti [...] this encounter Medical Devices Implanted Type Area Wool Grader Device Identifier Shelf Expiration Date Model / Serial / Lot Graft Hemasheild 20mm [id number] - [id number] Implanted:Qty: 1 on 01/13/2009 [place] [facility] [place] Abdomen MICROVASIVE [id number] / / [id number] Clip Resolution 360 Endo 235cm - [id number] Implanted:Qty: 1 on 12/10/2022 by Lacie England MD at OR [facility] [employer] : ENDOSCOPY [id number] 07/02/2025 [id number] / / [id number] Clip Resolution 360 Endo 235cm - [id number] Implanted:Qty: 1 on 12/10/2022 by Lacie England MD at OR [facility] [employer] : ENDOSCOPY [id number] 07/02/2025 [id number] / / [id number] Stent Biliary Adult L30mm Dia1 - [id number] Implanted:Qty: 1 on 10/26/2023 by Lacie England MD at OR [facility] COOK : JOHANNA COURTNEY [id number] 06/27/2026 [id number] / / [id number] documented as of this encounter Visit Diagnoses Diagnosis COPD, group D, by GOLD 2017 classification (HCC) documented in this encounter Advance Directives Documents on File Type Date Recorded Patient Central Sterile Tech Expl anation Power of Survey And Mapping Technician 07/30/2022 POWER OF A TTORNEY * [...] and were consensually agreed upon. Care Teams Sales Commissions Analyst Relationship Specialty Start Date End Date Lalo Carias MD [address] [place] [address] PCP - General 12/21/05 documented as of this encounter
--- OUTSIDE RECORDS SUMMARY | 2024-04-26 10:53 | External Medical Summary | Summary of Care ---
Author Name Unknown Organization [facility] Address [address] [place] [address] Phone [phone] Care Team Providers Care Seismograph Recorder Name Role Phone Lalo Carias MD Primary Care Provider +1- [phone] Reason for Visit * Reason Onset Date Comments Test Results 01/24/2024 Encounter Details Date Type Department Care Team (Late st Contact Info) Description 01/24/2024 Telephone Vascular Surgery, [facility] [address] [place] [address] Kathie Ybarra PA-C [address] [place] [address] Test Results Allergies Active Allergy [...] 0.1 % Nasal Solution (Astelin) Administer 1 [place] into nostril in the morning and 1 [place] before bedtime. 30 mL 1 3 Active [...] COPD, group D, by GOLD 2017 classification ([facility]) Inhale 2 Puffs by mouth every 4 hours as needed for Wheezing. 54 g 6 4 Active Furosemide 20 MG Oral Tablet (Lasix) TAKE 1 TABLET BY MOUTH twice DAILY 180 Tablet 1 4 Active predniSONE 20 MG Oral Tablet (Deltasone)Indicatio ns:COPD, group D, by GOLD 2017 classification ([facility]) Take 2 Tablets by mouth in the morning. USE NEEDED FOR EXACERBATION. COPD RESCUE KIT. 10 Tablet 4 Active Metoprolol Tartrate 25 MG Oral Tablet (Lopressor) Take 1 Tablet by mouth in the morning and 1 Tablet before bedtime. 180 Tablet 3 4 Active Apixaban 2.5 MG Oral Tablet (Eliquis)Indications :Recurrent cerebrovascular accidents (CVAs) ([facility]) Take 1 Tablet by mouth in the morning and 1 Tablet before bedtime. 120 Tablet 1 4 Active Doxycycline Hyclate 100 MG Oral TabletIndications:CO PD, group D, by GOLD 2017 classification ([facility]) Take 1 Tablet by mouth in the morning and 1 Tablet before bedtime. For as needed Rescue kit use when directed to take for COPD exacerbation. 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 * Addendum Note - Lalo aCrias MD - 01/25/2024 1:13 PM EDTAddended by: LALO CAIRAS on: 01/25/2024 01:13 PM Modules accepted: Orders [...] PM EDT Hem/Onc Treatment Hematology/Oncology Treatment, [address], [place] [phone] Hannah, Chair 2 Hem On[address] [place] [address] 02/23/2024 3:00 PM EST Home Visit [facility] [place], [facility] [address] [place] [address] Heath Zhang PA-C [address] [place] [address] 02/24/2024 2:00 PM EST Hem/Onc Treatment Hematology/Oncology Treatment, [address], [place] [phone] Hannah, Chair 3 Hem Onc [facility] [address] [place] [address] [place] [address] 02/27/2024 12:30 PM EST Home Visit [facility], [facility] [address] [place] [address] Jenifer Linder, RN [address] [place] [address] 03/28/2024 3:20 PM EST Office Visit Sleep Disorders Ctr [facility] [address] [place] [phone] Shanika Fitzgerald, [address] [place] [address] 04/03/2024 10:30 AM EST PulmDiagnostic Pulmonary Function Lab, [facility] [address] [facility] [place] [address] West, Pft [address] [facility] [place] [address] 04/03/2024 11:00 AM EST PulmDiagnostic Pulmonary Function Lab, [facility] [address] [facility] [place] [address] West, Pft [address] [facility] [place] [address] 04/03/2024 1:40 PM EST Office Visit Pulmonary Medicine, [facility] [address] [facility] [place] [address] Devin Hodge MD [address] [facility] [address] 04/24/2024 6:00 PM EST Office Visit [facility] [address] [place] [phone] Lalo Carias MD [address] [place] [address] 06/27/2024 2:45 PM EDT Office Visit Hematology/Oncology [facility] [address] [place], [place] [phone] Michael Snyder MD [address] [place] [address] 07/30/2024 4:00 PM EDT Office Visit Nephrology, [facility] [address] [facility] [place], [place] [address] Reggie Azevedo MD [address] [facility] [place] [address] Scheduled Procedures Name Priority Associated Diagnoses Date/Ti [...] this encounter Medical Devices Implanted Type Area Web Marketing Intern Device Identifier Shelf Expiration Date Model / Serial / Lot Graft Hemasheild 20mm [id number] - [id number] Implanted:Qty: 1 on 01/13/2009 at [place] [facility] [place]: Abdomen MICROVASIVE [id number] / / [id number] Clip Resolution 360 Endo 235cm - [id number] Implanted:Qty: 1 on 12/10/2022 by Lacie England MD at OR [facility] [employer] : ENDOSCOPY [id number] 07/02/2025 [id number] / / [id number] Clip Resolution 360 Endo 235cm - [id number] Implanted:Qty: 1 on 12/10/2022 by Lacie England MD at OR [facility] [employer] : ENDOSCOPY [id number] 07/02/2025 [id number] / / [id number] Stent Biliary Adult L30mm Dia1 - [id number] Implanted:Qty: 1 on 10/26/2023 by Lacie England MD at OR [facility] COOK : JOHANNA COURTNEY [id number] 06/27/2026 [id number] / / [id number] documented as of this encounter Visit Diagnoses Diagnosis COPD, group D, by GOLD 2017 classification (HCC) documented in this encounter Advance Directives Documents on File Type Date Recorded Patient Primary Mill Roller Expl anation Power of Zoo Director 07/30/2022 POWER OF A TTORNEY * [...] and were consensually agreed upon. Care Teams Seismograph Recorder Relationship Specialty Start Date End Date Lalo Carias MD [address] [place] [facility] [place] [address] PCP - General 12/21/05 documented as of this encounter
--- OUTSIDE RECORDS SUMMARY | 2024-04-26 10:54 | External Medical Summary ---
Author Name Unknown Address Unknown Organization K01:LABORATORY [facility] - [address] [place] [address] Laboratory Report Ordering Provider Test Date Status AIRAMLOLLY 01/13/2024 13:56:32 Final Observation Date Value Abnormality Reference (Units ) Status Ferritin 01/13/2024 13:56:32 279 30-400 (ng /mL) Final Performing Location LABORATORY [facility] - [address] [place] [address]
--- OUTSIDE RECORDS SUMMARY | 2024-04-26 10:54 | External Medical Summary | Summary of Care ---
Author Name Unknown Organization [facility] Address [address] [place] [address] Phone [phone] Care Team Providers Care Manager Hydraulic Name Role Phone Jairo Kingston MD Primary Care Provider [phone]- [phone] Encounter Details Date Type Department Care Team (Latest Contact Info) Description 09/02/2023 7:55 PM EDT - 09/02/2023 11:59 PM EDT Hospital Encounter Radiology Film File [address] [place] [address] Discharge Disposition: Home - Self Care Allergies Active Allergy Reactions Criticality Noted Date Comments Pavan Inhibitors Other (Please comment) 0 Hyperkalemia documented as of this encounter (statuses as of 01/21/2024) Medications Medication Sig Dispensed Refills Start Date [...] bedtime. Active Ascorbic Acid 250 MG Oral TabletIndications :Iron deficiency anemia, unspecified iron deficiency anemia type Take 0.5 Tablets by mouth daily at noon. 90 Tablet 3 12/14/2022 Active Azelastine HCl 0.1 % Nasal Solution (Astelin) Administer 1 [place] into nostril in the morning and 1 [place] before bedtime. 30 mL 1 01/11/2023 Active Ezetimibe 10 MG Oral Tablet (Zetia)Indication s:Dyslipidemia, goal LDL below 70 TAKE ONE TABLET BY MOUTH EVERY MORNING 90 Tablet 3 02/04/2023 02/04/2024 Active Docusate Sodium 100 MG Oral Capsule [...] 04/20/2023 Active Allopurinol 300 MG Oral Tablet (Zyloprim)Indicat ions:Gout TAKE ONE-HALF TABLET BY MOUTH EVERY DAY 45 Tablet 2 06/01/2023 05/31/2024 Active Ipratropium-Albut helen 0.5-2.5 (3) MG/3ML Inhalation Solution (Duoneb) Inhale 3 mL by mouth every 6 hours as needed (sob). 360 mL 5 07/27/2023 Active Fluticasone Propionate 50 MCG/ACT Nasal Suspension (Flonase) INSTILL 2 SPRAYS INTO EACH NOSTRIL EVERY DAY 48 g 3 07/29/2023 07/28/2024 Active Trelegy Ellipta 100-62.5-25 MCG/ACT Aerosol Powder Breath Activated (Fluticasone-Umec lidinium-Vilanter ol) INHALE ONE PUFF BY MOUTH EVERY DAY 180 Each 1 08/02/2023 Active Potassium Chloride ER 10 MEQ Oral Capsule Extended Release Take 1 Capsule by mouth in the morning On Tuesday, Tuesday and Tuesday only 45 Capsule 3 08/24/2023 Active documented as of this encounter (statuses as of 01/21/2024) Active Problems Problem Noted Date Diagnosed Date Malnutrition of moderate degree 10/22/2023 SBO (small bowel obstruction) 10/21/2023 MAGDALENO (acute kidney injury) 10/21/2023 Chronic hypoxic respiratory failure, on home oxy gen therapy 10/21/2023 Last Assessment & Plan: "RED FLAG" COPD symptoms: Increased dyspnea on exertion Cough Wheezing Medication Regimen Class D - Inhaled Lofinmyelaekch-ZFKA-SOVF Combination Inhaler (Trellegy) Remote Patient Monitoring Vendor: [...] 0 11/11/2022 Last Assessment & Plan: Allopurinol prison No new attacks GINNY on CPAP 11/11/2022 [...] as of this encounter (statuses as of 01/21/2024) Resolved Problems Problem Noted Date Diagnosed Date [...] as of this encounter (statuses as of 01/21/2024) Immunizations Name Administration Dates Next Due COVID-19 [...] 9:50 AM EDT Office Visit Vascular Surgery, [address] [place] [address] Mikhail Suazo MD [address] [facility] [place] [address] 01/27/2024 2:00 PM EDT Hem/Onc Treatment Hematology/Oncology Treatment, [place] [address] [place] [phone] Hannah, Chair 2 Hem Onc Scenery [address] [place] [address] 02/23/2024 3:00 PM EST [facility] Visit [facility], [facility] [address] [place] [address] Heath Zhang PA-C [address] [place] [address] 02/24/2024 2:00 PM EST Hem/Onc Treatment Hematology/Oncology Treatment, [place] [address] [place], [place] [address] Hannah, Chair 3 Hem Onc Scenery [address] [place], [place] [address] 02/27/2024 12:30 PM EST [facility] Visit [facility], [facility] [place] [address] Jenifer Linder RN [address] [place] [address] 03/28/2024 3:20 PM EST Office Visit Sleep Disorders Ctr [facility] [address] [facility] [place] [phone] Shanika Fitzgerald, [address] [place] [address] 04/03/2024 10:30 AM EST PulmDiagnostic Pulmonary Function Lab, [facility] [address] [facility] [place] [address] West, Pft [address] [facility] [place] [address] 04/03/2024 11:00 AM EST PulmDiagnostic Pulmonary Function Lab, [facility] [address] [place] [address] West, Pft [address] [facility] [place] [address] 04/03/2024 1:40 PM EST Office Visit Pulmonary Medicine, [facility] [address] [place] [address] Devin Hodge MD [address] [place] [address] 04/24/2024 6:00 PM EST Office Visit [facility] [address] [facility], [place] [phone] Jairo [place] MD [address] [place], [place] [address] 06/27/2024 2:45 PM EDT Office Visit Hematology/Oncology [facility] 200 [facility] [place] [phone] Michael Snyder MD [address] [facility] [place] [address] 07/30/2024 4:00 PM EDT Office Visit Nephrology, [facility] [address] [facility] [place] [address] Reggie Azevedo MD [address] [facility] [place] [address] Scheduled Procedures Name Priority Associated Diagnoses Date/Ti [...] Additional history exists Depression Screening 10/09/2024 10/10/2023 AAA Monitoring 10/20/2024 10/21/2023, 07/0 06/2023, 01/27/2023, Additional history exists O2 ASSESSMENT COMPLETED IN PAST YEAR FOR COPD 10/25/2024 10/26/2023 Nephrology Referral 12/12/2024 12/13/2023 PTH 12/29/2024 12/30/2023, 110 10/2022, 12/31/2021, Additional history exists Phosphate 12/29/2024 12/30/2023, 07/0 09/2023, 02/22/2023, Additional history exists Hgb 01/12/2025 01/13/2024, 12/17, 12/02/2023, Additional history exists Colonoscopy 01/02/2026 01/02/2021, 07/17, [...] this encounter Medical Devices Implanted Type Area Finished Goods Planner Device Identifier Shelf Expiration Date Model / Serial / Lot Graft Hemasheild 20mm [id number] - [id number] Implanted:Qty: 1 on 01/13/2009 at [place] [facility] [place] N/A: Abdomen MICROVASIVE [id number] / / [id number] Clip Resolution 360 Endo 235cm - [id number] Implanted:Qty: 1 on 12/10/2022 by Lacie England MD at OR [facility] [employer] : ENDOSCOPY [id number] 07/02/2025 [id number] / / [id number] Clip Resolution 360 Endo 235cm - [id number] Implanted:Qty: 1 on 12/10/2022 by Lacie England MD at OR [facility] [employer] : ENDOSCOPY [id number] 07/02/2025 [id number] / / [id number] Stent Biliary Adult L30mm Dia1 - [id number] Implanted:Qty: 1 on 10/26/2023 by Lacie England MD at OR [facility] COOK : JOHANNA COOK [id number] 06/27/2026 [id number] / / [id number] Explanted Type Area Finished Goods Planner Device Identifier Shelf Expiration Date Model / Serial / Lot Stent Axios [id number] - [id number] Implanted:Qty: 1 on 12/10/2022 by Lacie England MD at OR [facility] Explanted:Qty: 1 on 10/26/2023 at OR [facility] [employer] : ENDOSCOPY [id number] 04/06/2023 [id number] / / [id number] documented as of this encounter Procedures Procedure Name Priority Date/Time Associated Diagnosis Comments RADIOLOGY EXAM - GENERAL RAD (IMAGES ONLY,NO REPORT) Routine 09/02/2023 7:55 PM EDT documented in this encounter Results * RADIOLOGY EXAM - GENERAL RAD (IMAGES ONLY,NO REPORT) (09/02/2023 7:55 PM EDT) 09/02/2023 7:55 PM EDT Narrative Scheduling, Silent - 01/20/2024 12:46 PM EDT This is an imaging study not interpreted or resulted by a [facility] contracted radiologist. Michael Snyder MD RADIOLOGY (RAD GENER AL) documented in this encounter Advance Directives Documents on File Type Date Recorded Patient Apple Solutions Consultant Expl anation Power of Administrative Analyst 07/30/2022 POWER OF A TTORNEY * [...] were consensually agreed upon. Care Teams Manager Hydraulic Relationship Specialty Start Date End Date Jairo Kingston MD [address] [place] [address] PCP - General 12/21/05 documented as of this encounter
--- OUTSIDE RECORDS SUMMARY | 2024-04-26 10:54 | External Medical Summary | Summary of Care ---
Author Name Unknown Organization [facility] Address [address] [place] [address] Phone [phone] Care Team Providers Care Program Management Professional Name Role Phone Jairo Kingston MD Primary Care Provider +1- [phone] Encounter Details Date Type Department Care Team (Late st Contact Info) Description 09/02/2023 Orders Only Hematology/Oncology [facility] Hannah [place] [address] [facility] [place] [phone] Michael Snyder MD 200 [place] [address] Allergies Active Allergy Reactions Criticality Noted Date Comments Pavan Inhibitors Other (Please comment) 0 Hyperkalemia documented as of this encounter (statuses as of 01/20/2024) Medications Medication Sig Dispensed Refills Start Date [...] 0.1 % Nasal Solution (Astelin) Administer 1 Hubertus into nostril in the morning and 1 Hubertus before bedtime. 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 (Household - for ages [...] 9:50 AM EDT Office Visit Vascular Surgery, [address] [place] [address] Mikhail Suazo MD [address] [facility] [place] [address] 01/27/2024 2:00 PM EDT Hem/Onc Treatment Hematology/Oncology Treatment, [place] [address] [place] [address] Hannah, Chair 2 Hem Onc Scenery [address] [place] [address] 02/23/2024 3:00 PM EST [facility] [address] [place] [address] Heath Zhang PA-C [address] [place] [address] 02/24/2024 2:00 PM EST Hem/Onc Treatment Hematology/Oncology Treatment, [place] [address] [place] [address] Park, Chair 3 Hem Onc Scenery [address] [place] [address] 02/27/2024 12:30 PM EST [facility], [facility] [address] [place] [address] Jenifer Linder RN [address] [place] [address] 03/28/2024 3:20 PM EST Office Visit Sleep Disorders Ctr [facility] [address] [place] [phone] Shanika Fitzgerald, DO [address] [place] [address] 04/03/2024 10:30 AM EST PulmDiagnostic Pulmonary Function Lab, [facility] [place] [address] [place], P[address] [facility] [place] [address] 04/03/2024 11:00 AM EST PulmDiagnostic Pulmonary Function Lab, [facility] [address] [place] [address] West, [address] [place] [address] 04/03/2024 1:40 PM EST Office Visit Pulmonary Medicine, [facility] [address] [place] [address] Devin Hodge MD [address] [facility] [place] [address] 04/24/2024 6:00 PM EST Office Visit [facility] [address] [place] [address] Jairo Kingston MD [address] [place] [address] 06/27/2024 2:45 PM EDT Office Visit Hematology/Oncology [facility] 200 [place] [place] [address] Michael Snyder MD 200 [place] [place] [address] 07/30/2024 4:00 PM EDT Office Visit Nephrology, [facility] 200 [facility] [place] [address] Reggie Azevedo MD 200 [place] [address] Scheduled Procedures Name Priority Associated Diagnoses Date/Ti [...] this encounter Medical Devices Implanted Type Area Time Stamp Assembler Device Identifier Shelf Expiration Date Model / Serial / Lot Graft Hemasheild 20mm [id number] - [id number] [place]planted:Q[place] 1 on 01[place]13/2009 [place] [facility] [place] Abdomen MICROVASIVE [id number] / / [id number] Clip Resolution 360 Endo 235cm - [id number] Implanted:Qty: 1 on 12/10/2022 by Lacie England MD at OR [facility] [employer] : ENDOSCOPY [id number] 07/02/2025 [id number] / / [id number] Clip Resolution 360 Endo 235cm - [id number] Implanted:Qty: 1 on 12/10/2022 by Lacie England MD at OR [facility] [employer] : ENDOSCOPY [id number] 07/02/2025 [id number] / / [id number] Stent Biliary Adult L30mm Dia1 - [id number] Implanted:Qty: 1 on 10/26/2023 by Lacie England MD at OR [facility] COOK : JOHANNA COOK [id number] 06/27/2026 [id number] / / [id number] Explanted Type Area Time Stamp Assembler Device Identifier Shelf Expiration Date Model / Serial / Lot Stent Axios [id number] - [id number] Implanted:Qty: 1 on 12/10/2022 by Lacie England MD at OR [facility] Explanted:Qty: 1 on 10/26/2023 at OR [facility] [employer] : ENDOSCOPY [id number] 04/06/2023 [id number] / / [id number] documented as of this encounter Procedures Procedure [...] interpreted or resulted by a [facility] or [email or web address] contracted radiologist. Michael Snyder MD RADIOLOGY (RAD GENER AL) documented in this encounter Advance Directives Documents on File Type Date Recorded Patient Box Inspector Expl anation Power of Television News Anchor 07/30/2022 POWER OF A TTORNEY * Full [...] were consensually agreed upon. Care Teams Program Management Professional Relationship Specialty Start Date End Date Jairo Kingston MD [address] [place] [address] PCP - General 12/21/05 documented as of this encounter
--- OUTSIDE RECORDS SUMMARY | 2024-04-26 10:54 | External Medical Summary | Summary of Care ---
Author Name Unknown Organization [facility] Address [address] [place] [address] Phone [phone] Care Team Providers Care Molding Plasterer Name Role Phone Jairo Kingston MD Primary Care Provider +1- [phone] Reason for Visit * Reason Onset Date Comments Test Results 01/24/2024 Encounter Details Date Type Department Care Team (Late st Contact Info) Description 01/24/2024 Telephone Vascular Surgery, [facility] [address] [place] [address] Kathie Ybarra PA-C [address] [place] [address] Test Results Allergies Active Allergy Reactions Criticality Noted Date Comments Pavan Inhibitors Other (Please comment) 0 Hyperkalemia documented as of this encounter (statuses as of 01/24/2024) Medications Medication Sig Dispensed Refills Start Date [...] 0.1 % Nasal Solution (Astelin) Administer 1 [place] into nostril in the morning and 1 [place] before bedtime. 30 mL 1 01/11/2023 Active [...] by GOLD 2017 classification ([facility]) Inhale 2 Puffs by mouth every 4 hours as needed for Wheezing. 54 g 6 11/23/2023 Active Furosemide 20 MG Oral Tablet (Lasix) TAKE 1 TABLET BY MOUTH twice DAILY 180 Tablet 1 12/08/2023 Active Doxycycline Hyclate 100 MG Oral TabletIndications:CO PD, group D, by GOLD 2017 classification ([facility]) Take 1 Tablet by mouth in the morning and 1 Tablet before bedtime. For as needed Rescue kit use when directed to take for COPD exacerbation. 14 Tablet 12/09/2023 Active Additional Information Patient not taking.Reported on 12/13/2023 predniSONE 20 MG Oral Tablet (Deltasone)Indicatio ns:COPD, group D, by GOLD 2017 classification ([facility]) Take 2 Tablets by mouth in the morning. USE NEEDED FOR EXACERBATION. COPD RESCUE KIT. 10 Tablet 12/09/2023 Active Metoprolol Tartrate 25 MG Oral Tablet (Lopressor) Take 1 Tablet by mouth in the morning and 1 Tablet before bedtime. 180 Tablet 3 12/22/2023 Active Apixaban 2.5 MG Oral Tablet (Eliquis)Indications :Recurrent cerebrovascular accidents (CVAs) ([facility]) Take 1 Tablet by mouth in the morning and 1 Tablet before bedtime. 120 Tablet 1 01/04/2024 Active Hospital, Clinic, or Other Facility Administered Medication Ordered Dose Route Frequency Start Date End Date Status Albuterol Sulfate (Proventil) (2.5 MG/3ML) 0.083% inhalation solution 2.5 mgIndications:COPD, group D, by GOLD 2017 classification ([facility]) 2.5 mg NEBULIZER PRN 10/03/2023 10/02/2024 Acti ve documented as of this encounter (statuses as of 01/24/2024) Active Problems Problem Noted Date Diagnosed Date Malnutrition of moderate degree 10/22/2023 SBO (small bowel obstruction) 10/21/2023 MAGDALENO (acute kidney injury) 10/21/2023 Chronic hypoxic respiratory failure, on home oxy gen therapy 10/21/2023 Last Assessment & Plan: "RED FLAG" COPD symptoms: Increased dyspnea on exertion Cough Wheezing Medication Regimen Class D - Inhaled Yuemywbkscbtgd-CRQE-AISR Combination Inhaler (Trellegy) Remote Patient Monitoring Vendor: [...] 0 11/11/2022 Last Assessment & Plan: 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 Dr. Kingston: Please note lung findings above. Looks like patient may have acute bronchiolitis based on CT results. He has COPD and has been using his inhalers more frequently. Can you look into this, please? Thank you documented in this encounter Plan of Treatment Upcoming Encounters Date Type Department Care Team (Late st Contact Info) Description 01/26/2024 9:50 AM EDT Office Visit Vascular Surgery, [place] [address] [facility] [place] [address] Mikhail Suazo MD [address] [place] [address] 01/27/2024 2:00 PM EDT Hem/Onc Treatment Hematology/Oncology Treatment, [address] [place] [phone] Hannah, Chair 2 Hem Onc [facility] [address] [place] [address] [place] [address] 02/23/2024 3:00 PM EST [facility] [place], [facility] [address] [place] [address] Heath Zahng PA-C [address] [place] [address] 02/24/2024 2:00 PM EST Hem/Onc Treatment Hematology/Oncology Treatment, [place] 200 [place] [address] Hannah, Chair 3 Hem Onc [facility] [address] [place] [address] [place] [address] 02/27/2024 12:30 PM EST [facility], [facility] [address] [place] [address] Jenifer Lnider, RN [address] [place] [address] 03/28/2024 3:20 PM EST Office Visit Sleep Disorders Ctr [facility] [address] [place] [phone] Shanika Fitzgerald DO [address] [place] [address] 04/03/2024 10:30 AM EST PulmDiagnostic Pulmonary Function Lab, [facility] 132 [facility] [place] [address] West, Pft [address] [facility] [place] [place] [address] 04/03/2024 11:00 AM EST PulmDiagnostic Pulmonary Function Lab, [facility] [address] [place] [address] West, Pft [address] [facility] [place] [address] 04/03/2024 1:40 PM EST Office Visit Pulmonary Medicine, [facility] [address] [place] [address] Devin Hodge MD [address] [place] [address] 04/24/2024 6:00 PM EST Office Visit [facility] [address] [place] [address] Jairo Kingston MD [address] [place] [address] 06/27/2024 2:45 PM EDT Office Visit Hematology/Oncology [facility] [place] [address] [place] [address] Michael Snyder MD [address] [place] [address] 07/30/2024 4:00 PM EDT Office Visit Nephrology, [facility] [address] [place] [address] Reggie Azevedo MD [address] [place] [address] Scheduled Procedures Name Priority Associated Diagnoses Date/Ti [...] this encounter Medical Devices Implanted Type Area Office Machine Installer Device Identifier Shelf Expiration Date Model / Serial / Lot Graft Hemasheild 20mm [id number] - [id number] Implanted:Qty: 1 on 01/13/2009 [place] [facility] [place] Abdomen MICROVASIVE [id number] / / [id number] Clip Resolution 360 Endo 235cm - [id number] Implanted:Qty: 1 on 12/10/2022 by Lacie England MD at OR [facility] [employer] : ENDOSCOPY [id number] 07/02/2025 [id number] / / [id number] Clip Resolution 360 Endo 235cm - [id number] Implanted:Qty: 1 on 12/10/2022 by Lacie England MD at OR [facility] [employer] : ENDOSCOPY [id number] 07/02/2025 [id number] / / [id number] Stent Biliary Adult L30mm Dia1 - [id number] Implanted:Qty: 1 on 10/26/2023 by Lacie England MD at OR [facility] COOK : JOHANNA COURTNEY [id number] 06/27/2026 [id number] / / [id number] documented as of this encounter Advance Directives Documents on File Type Date Recorded Patient Steamer Gum Candy Expl anation Power of Radioactivity Technician 07/30/2022 POWER OF A TTORNEY * [...] and were consensually agreed upon. Care Teams Molding Plasterer Relationship Specialty Start Date End Date Jairo Kingston MD [address] [place] [facility] [address] PCP - General 12/21/05 documented as of this encounter
--- OUTSIDE RECORDS SUMMARY | 2024-04-26 10:54 | External Medical Summary | Summary of Care ---
Author Name Unknown Organization [facility] Address [address] [place] [place] [address] Phone [phone] Care Team Providers Care Extractor Plant Operator Name Role Phone Jairo Kingston MD Primary Care Provider +1- [phone] Encounter Details Date Type Department Care Team (Late st Contact Info) Description 01/13/2024 Orders Only [facility] [place] [facility] [address] [place] [address] Heath Zhang PA-C [address] [place] [address] Dark stools* Allergies Active Allergy Reactions Criticality Noted Date Comments Pavan Inhibitors Other (Please comment) 0 Hyperkalemia documented as of this encounter (statuses as of 01/13/2024) Medications Medication Sig Dispensed Refills Start Date [...] 0.1 % Nasal Solution (Astelin) Administer 1 [place] into nostril in the morning and 1 [place] before bedtime. 30 mL 1 01/11/2023 Active [...] COPD, group D, by GOLD 2017 classification ([facility]) Inhale 2 Puffs by mouth every 4 hours as needed for Wheezing. 54 g 6 11/23/2023 Active Furosemide 20 MG Oral Tablet (Lasix) TAKE 1 TABLET BY MOUTH twice DAILY 180 Tablet 1 12/08/2023 Active Doxycycline Hyclate 100 MG Oral TabletIndications:CO PD, group D, by GOLD 2017 classification ([facility]) Take 1 Tablet by mouth in the morning and 1 Tablet before bedtime. For as needed Rescue kit use when directed to take for COPD exacerbation. 14 Tablet 12/09/2023 Active Additional Information Patient not taking.Reported on 12/13/2023 predniSONE 20 MG Oral Tablet (Deltasone)Indicatio ns:COPD, group D, by GOLD 2017 classification ([facility]) Take 2 Tablets by mouth in the morning. USE NEEDED FOR EXACERBATION. COPD RESCUE KIT. 10 Tablet 12/09/2023 Active Metoprolol Tartrate 25 MG Oral Tablet (Lopressor) Take 1 Tablet by mouth in the morning and 1 Tablet before bedtime. 180 Tablet 3 12/22/2023 Active Apixaban 2.5 MG Oral Tablet (Eliquis)Indications :Recurrent cerebrovascular accidents (CVAs) ([facility]) Take 1 Tablet by mouth in the morning and 1 Tablet before bedtime. 120 Tablet 1 01/04/2024 Active Hospital, Clinic, or Other Facility Administered Medication Ordered Dose Route Frequency Start Date End Date Status Albuterol Sulfate (Proventil) (2.5 MG/3ML) 0.083% inhalation solution 2.5 mgIndications:COPD, group D, by GOLD 2017 classification ([facility]) 2.5 mg NEBULIZER PRN 10/03/2023 10/02/2024 Acti ve documented as of this encounter (statuses as of 01/13/2024) Active Problems Problem Noted Date Diagnosed Date Malnutrition of moderate degree 10/22/2023 SBO (small bowel obstruction) 10/21/2023 MAGDALENO (acute kidney injury) 10/21/2023 Chronic hypoxic respiratory failure, on home oxy gen therapy 10/21/2023 Last Assessment & Plan: "RED FLAG" COPD symptoms: Increased dyspnea on exertion Cough Wheezing Medication Regimen Class D - Inhaled Gznrmzikczbeus-HNHJ-HQPR Combination Inhaler (Trellegy) Remote Patient Monitoring Vendor: [...] 0 11/11/2022 Last Assessment & Plan: 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 No new attacks GINNY on CPAP 11/11/2022 [...] as of this encounter (statuses as of 01/13/2024) Resolved Problems Problem Noted Date Diagnosed Date [...] as of this encounter (statuses as of 01/13/2024) Immunizations Name Administration Dates Next Due COVID-19 [...] Care Team (Late st Contact Info) Description 01/18/2024 10:00 AM EDT [facility], [facility] [address] [place] [address] Jenifer Linder, RN [address] [place] [address] 01/19/2024 4:45 PM EDT Imaging Radiology [facility] [address] [place] [address] 01/26/2024 9:50 AM EDT Office Visit Vascular Surgery, [address] [place] [address] Mikhail Suazo MD [address] [place] [address] 01/27/2024 2:00 PM EDT Hem/Onc Treatment Hematology/Oncology Treatment, [address] [phone] Hannah, Chair 2 Hem Onc Scenery [address] [place] [address] [place] [address] 02/23/2024 3:00 PM EST [facility] Visit [facility], [facility] [address] [place] [address] Heath Zhang PA-C [address] [place] [address] 02/24/2024 2:00 PM EST Hem/Onc Treatment Hematology/Oncology Treatment, [place] [address] [facility] [phone] Hannah, Chair 3 Hem Onc Scenery 200 [facility] [place] [address] 03/28/2024 3:20 PM EST Office Visit [facility] Disorders Ctr [facility] 132 [facility] [place], [place] [address] Shanika Fitzgerald, 132 [facility] [place], [place] [address] 04/03/2024 10:30 AM EST PulmDiagnostic Pulmonary Function Lab, [facility] 132 [facility] [place] [address] West, Pft 132 [facility] [place] [address] 04/03/2024 11:00 AM EST PulmDiagnostic Pulmonary Function Lab, [facility] 132 [facility] [place] [address] West, Pft [address] [facility] [place] [address] 04/03/2024 1:40 PM EST Office Visit Pulmonary Medicine, [facility] 132 [facility] [place] [address] Devin Hodge MD [address] [facility] [place] [address] 04/24/2024 6:00 PM EST Office Visit [facility] [address] [place] [phone] Jairo [place] MD [address] [place] [address] 06/27/2024 2:45 PM EDT Office Visit Hematology/[facility] [place], [place] [address] Michael Snyder MD 200 [place] [address] 07/30/2024 4:00 PM EDT Office Visit Nephrology, [place] [address] [place] [address] Reggie Azevedo MD [address] [facility] [place] [address] Scheduled Orders Name Type Priority Associated Diagnoses Orde r Schedule CBC Lab Routine Dark stools Expected: 01/13/2024 (Approximate), Expi res: 01/12/2025 Scheduled Procedures Name Priority Associated Diagnoses Date/Ti [...] Screening 10/09/2024 10/10/2023 AAA Monitoring 10/20/2024 10/21/2023, 070 06/2023, 01/27/2023, Additional history exists O2 ASSESSMENT COMPLETED IN PAST YEAR FOR COPD 10/25/2024 10/26/2023 Nephrology Referral 12/12/2024 12/13/2023 Hgb 12/29/2024 12/30/2023, 11/16, 11/04/2023, Additional history exists PTH 12/29/2024 12/30/2023, 110 10/2022, 12/31/2021, Additional history exists Phosphate 12/29/2024 12/30/2023, 070 09/2023, 02/22/2023, Additional history exists Colonoscopy 01/02/2026 01/02/2021, 07/17, [...] this encounter Medical Devices Implanted Type Area Baggage Inspector Device Identifier Shelf Expiration Date Model / Serial / Lot Graft Hemasheild 20mm [id number] - [id number] Implanted:Qty: 1 on 01/13/2009 at OR [facility] [place]/A: Abdomen MICROVASIVE [id number] / / [id number] Clip Resolution 360 Endo 235cm - [id number] Implanted:Qty: 1 on 12/10/2022 by Lacie England MD at OR [facility] [employer] : ENDOSCOPY [id number] 07/02/2025 [id number] / / [id number] Clip Resolution 360 Endo 235cm - [id number] Implanted:Qty: 1 on 12/10/2022 by Lacie England MD at OR [facility] : ENDOSCOPY [id number] 07/02/2025 [id number] / / [id number] Stent Biliary Adult L30mm Dia1 - [id number] Implanted:Qty: 1 on 10/26/2023 by Lacie England MD at OR [facility] [place] : JOHANNA COURTNEY [id number] 06/27/2026 [id number] / / [id number] documented as of this encounter Visit Diagnoses Diagnosis Dark stools- Primary Nonspecific abnormal finding in stool contents documented in this encounter Advance Directives Documents on File Type Date Recorded Patient Vacuum Form Operator Expl anation Power of Occupational Nurse 07/30/2022 POWER OF A TTORNEY * Full [...] and were consensually agreed upon. Care Teams Extractor Plant Operator Relationship Specialty Start Date End Date Jairo Kingston MD [address] [place] [address] PCP - General 12/21/05 documented as of this encounter
--- OUTSIDE RECORDS SUMMARY | 2024-04-26 10:54 | External Medical Summary | Summary of Care ---
Author Name Unknown Organization [facility] Address [address] [place] [address] Phone [phone] Care Team Providers Care Body Shop Manager Name Role Phone Jairo Kingston MD Primary Care Provider +1- [phone] Reason for Visit * Reason Comments Outpatient Testing Encounter Details Date Type Department Care Team (Late st Contact Info) Description 01/13/2024 1:50 PM EDT Laboratory Laboratory [facility] [place] [address] [place] [address] [facility] 200 [facility] [place] [address] Iron deficiency anemia due to chronic blood loss Allergies Active Allergy Reactions Criticality Noted Date [...] 0.1 % Nasal Solution (Astelin) Administer 1 Megargel into nostril in the morning and 1 Megargel before bedtime. 30 mL 1 01/11/2023 Active [...] by GOLD 2017 classification ([facility]) Inhale 2 Puffs by mouth every 4 hours as needed for Wheezing. 54 g 6 11/23/2023 Active Furosemide 20 MG Oral Tablet (Lasix) TAKE 1 TABLET BY MOUTH twice DAILY 180 Tablet 1 12/08/2023 Active Doxycycline Hyclate 100 MG Oral TabletIndications:CO PD, group D, by GOLD 2017 classification ([facility]) Take 1 Tablet by mouth in the morning and 1 Tablet before bedtime. For as needed Rescue kit use when directed to take for COPD exacerbation. 14 Tablet 12/09/2023 Active Additional Information Patient not taking.Reported on 12/13/2023 predniSONE 20 MG Oral Tablet (Deltasone)Indicatio ns:COPD, group D, by GOLD 2017 classification ([facility]) Take 2 Tablets by mouth in the morning. USE NEEDED FOR EXACERBATION. COPD RESCUE KIT. 10 Tablet 12/09/2023 Active Metoprolol Tartrate 25 MG Oral Tablet (Lopressor) Take 1 Tablet by mouth in the morning and 1 Tablet before bedtime. 180 Tablet 3 12/22/2023 Active Apixaban 2.5 MG Oral Tablet (Eliquis)Indications :Recurrent cerebrovascular accidents (CVAs) ([facility]) Take [...] Wheezing Medication Regimen Class D - Inhaled Bhxdkuldfwvhac-QNEX-QLHU Combination Inhaler (Trellegy) Remote Patient Monitoring Vendor: [...] AM EDT [facility], [facility] [address] [place] [address] Jenifer Linder, RN [address] [place] [address] 01/19/2024 4:45 PM EDT Imaging Radiology [address], [place] [address] [place] [address] 01/26/2024 9:50 AM EDT Office Visit Vascular Surgery, [address] [place] [address] Mikhail Suazo MD [address] [place] [address] 01/27/2024 2:00 PM EDT Hem/Onc Treatment Hematology/Oncology Treatment, [address] [phone] Hannah, Chair 2 Hem Onc [address] [place] [address] [place] [address] 02/23/2024 3:00 PM EST [facility], [facility] [address] [place] [address] Heath Zhang PA-C [address] [place] [address] 02/24/2024 2:00 PM EST Hem/Onc Treatment Hematology[facility]Oncology Treatment, [place] [facility] [phone] Hannah, Chair 3 Hem Onc Scenery 200 [facility] [place] [address] 03/28/2024 3:20 PM EST Office Visit Sleep Disorders Ctr [facility] 132 [facility] [place], [place] [address] Shanika Fitzgerald DO [address] [place], [place] [address] 04/03/2024 10:30 AM EST PulmDiagnostic Pulmonary Function Lab, [facility] 132 [facility] [place] [address] [address], [address] 132 [facility] [place] [address] 04/03/2024 11:00 AM EST PulmDiagnostic Pulmonary Function Lab, [facility] 132 [facility] [place] [address] [address], [address] 132 [facility] [place] [address] 04/03/2024 1:40 PM EST Office Visit Pulmonary Medicine, [facility] 132 [facility] [place] [address] Devin Hodge MD [address] [facility] [place] [address] 04/24/2024 6:00 PM EST Office Visit [facility] [address] [place] [phone] Jairo Kingston MD [address] [place] [address] 06/27/2024 2:45 PM EDT Office Visit Hematology/Oncology Yuliet Young [place] [address] [place] [phone] Michael Snyder MD [address] [place] [address] 07/30/2024 4:00 PM EDT Office Visit Nephrology, Yuliet Young [address] [place], [place] [address] Reggie Azevedo MD [address] [place] [address] Pending Results Name Type Priority Associated Diagnoses Date /Time CBC WITH WBC DIFFERENTIAL Lab STAT Iron deficiency anemia due to chronic blood loss 01/13/2024 1:56 PM EDT FERRITIN Lab STAT Iron deficiency anemia due to chronic blood loss 01/13/2024 1:56 PM EDT IRON SCREEN, INCLUDING TIBC Lab STAT Iron deficiency anemia due to chronic blood loss 01/13/2024 1:56 PM EDT CBC Lab STAT Iron deficiency anemia due to chronic blood loss 01/13/2024 1:56 PM EDT DIFFERENTIAL, AUTOMATED Lab STAT Iron deficiency anemia due to chronic blood loss 01/13/2024 1:56 PM EDT Scheduled Procedures Name Priority Associated [...] 11/04/2023, Additional history exists PTH 12/29/2024 12/30/2023, 10/2022, 12/31/2021, Additional history exists Phosphate 12/29/2024 12/30/2023, 09/2023, 02/22/2023, Additional history exists Colonoscopy 01/02/2026 [...] this encounter Medical Devices Implanted Type Area Supply Requirements Officer Device Identifier Shelf Expiration Date Model / Serial / Lot Graft Hemasheild 20mm [id number] - [id number] Implanted:Qty: 1 on 01/13/2009 at OR [facility] N/A: Abdomen MICROVASIVE [id number] / / [id number] Clip Resolution 360 Endo 235cm - [id number] Implanted:Qty: 1 on 12/10/2022 by Lacie England MD at OR [facility] [employer] : ENDOSCOPY [id number] 07/02/2025 [id number] / / [id number] Clip Resolution 360 Endo 235cm - [id number] Implanted:Qty: 1 on 12/10/2022 by Lacie England MD at OR [facility] [employer] : ENDOSCOPY [id number] 07/02/2025 [id number] / / [id number] Stent Biliary Adult L30mm Dia1 - [id number] Implanted:Qty: 1 on 10/26/2023 by Lacie England MD at OR [facility] [place] : JOHANNA COURTNEY [id number] 06/27/2026 [id number] / / [id number] documented as of this encounter Visit Diagnoses Diagnosis Iron deficiency anemia due to chronic blood loss Iron 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 (chronic) documented in this encounter Advance Directives Documents on File Type Date Recorded Patient Bath Solution Maker Expl anation Power of Cashier Office 07/30/2022 POWER OF A TTORNEY * Full [...] and were consensually agreed upon. Care Teams Body Shop Manager Relationship Specialty Start Date End Date Jairo Kingston MD [address] [place] [address] PCP - General 12/21/05 documented as of this encounter
--- OUTSIDE RECORDS SUMMARY | 2024-04-26 10:54 | External Medical Summary | Summary of Care ---
Author Name Unknown Organization [facility] Address [address] [place] [address] Phone [phone] Care Team Providers Care Resident Program Specialist Name Role Phone Jairo Kingston MD Primary Care Provider +1- [phone] Encounter Details Date Type Department Care Team (Late st Contact Info) Description 01/25/2024 Telephone [facility] [address] [place] [address] Jiaro Kingston MD [address] [place] [address] Allergies Active Allergy Reactions Criticality [...] 0.1 % Nasal Solution (Astelin) Administer 1 Blanchard into nostril in the morning and 1 Blanchard before bedtime. 30 mL 1 01/11/2023 Active [...] COPD, group D, by GOLD 2017 classification ([facility]) Inhale 2 Puffs by mouth every 4 hours as needed for Wheezing. 54 g 6 11/23/2023 Active Furosemide 20 MG Oral Tablet (Lasix) TAKE 1 TABLET BY MOUTH twice DAILY 180 Tablet 1 12/08/2023 Active Doxycycline Hyclate 100 MG Oral TabletIndications:CO PD, group D, by GOLD 2017 classification ([facility]) Take 1 Tablet by mouth in the morning and 1 Tablet before bedtime. For as needed Rescue kit use when directed to take for COPD exacerbation. 14 Tablet 12/09/2023 Active Additional Information Patient not taking.Reported on 12/13/2023 predniSONE 20 MG Oral Tablet (Deltasone)Indicatio ns:COPD, group D, by GOLD 2017 classification ([facility]) Take 2 Tablets by mouth in the morning. USE NEEDED FOR EXACERBATION. COPD RESCUE KIT. 10 Tablet 12/09/2023 Active Metoprolol Tartrate 25 MG Oral Tablet (Lopressor) Take 1 Tablet by mouth in the morning and 1 Tablet before bedtime. 180 Tablet 3 12/22/2023 Active Apixaban 2.5 MG Oral Tablet (Eliquis)Indications :Recurrent cerebrovascular accidents (CVAs) ([facility]) Take 1 Tablet by mouth in the morning and 1 Tablet before bedtime. 120 Tablet 1 01/04/2024 Active Hospital, Clinic, or Other Facility Administered Medication Ordered Dose Route Frequency Start Date End Date Status Albuterol Sulfate (Proventil) (2.5 MG/3ML) 0.083% inhalation solution 2.5 mgIndications:COPD, group D, by GOLD 2017 classification ([facility]) 2.5 mg NEBULIZER PRN 10/03/2023 10/02/2024 [...] Wheezing Medication Regimen Class D - Inhaled Igmuhirnaggpyq-VGMO-IKET Combination Inhaler (Trellegy) Remote Patient Monitoring Vendor: [...] 9:50 AM EDT Office Visit Vascular Surgery, [address] [place] [address] Mikhail Suazo MD [address] [facility] [place] [address] 01/27/2024 2:00 PM EDT Hem/Onc Treatment Hematology/Oncology Treatment, [place] 200 [place] [phone] Hannah, Chair 2 Hem Onc Scenery 200 [facility] [place] [address] 02/23/2024 3:00 PM EST [facility] [place], [facility] [address] [place] [address] Heath Zhang PA-C [address] [place] [address] 02/24/2024 2:00 PM EST Hem/Onc Treatment Hematology/Oncology Treatment, [place] 200 [facility], [place] [phone] Hannah, Chair 3 Hem Onc Scenery 200 [facility] [place] [address] 02/27/2024 12:30 PM EST [facility], [facility] [address] [place] [address] Jenifer Linder, RN [address] [place] [address] 03/28/2024 3:20 PM EST Office Visit Sleep Disorders Ctr [facility] [address] [place] [phone] Shanika Fitzgerald DO [address] [place] [address] 04/03/2024 10:30 AM EST PulmDiagnostic Pulmonary Function Lab, [facility] 132 [place] [address] [address], [address] 132 [facility] [place] [address] 04/03/2024 11:00 AM EST PulmDiagnostic Pulmonary Function Lab, [facility] 132 [place] [address] [address], [address] 132 [facility] [place] [address] 04/03/2024 1:40 PM EST Office Visit Pulmonary Medicine, [facility] 132 [facility] [place] [address] Devin Hodge MD [address] [facility] [address] 04/24/2024 6:00 PM EST Office Visit [facility] [address] [place] [phone] Jairo Kingston MD [address] [place] [address] 06/27/2024 2:45 PM EDT Office Visit Hematology/Oncology [facility] [address] [place], [place] [phone] Michael Snyder MD [address] [place] [address] 07/30/2024 4:00 PM EDT Office Visit Nephrology, [facility] [address] [place], [place] [address] Reggie Azevedo MD 200 [facility] [place], [place] [phone] Scheduled Procedures Name Priority Associated Diagnoses Date/Ti [...] this encounter Medical Devices Implanted Type Area Rental Manager Device Identifier Shelf Expiration Date Model / Serial / Lot Graft Hemasheild 20mm [id number] - [id number] Implanted:Qty: 1 on 01/13/2009 at OR [facility] N/A: Abdomen MICROVASIVE [id number] / / [id number] Clip Resolution 360 Endo 235cm - [id number] Implanted:Qty: 1 on 12/10/2022 by Lacie England MD at OR [facility] : ENDOSCOPY [id number] 07/02/2025 [id number] / / [id number] Clip Resolution 360 Endo 235cm - [id number] Implanted:Qty: 1 on 12/10/2022 by Lacie England MD at OR [facility] [employer] : ENDOSCOPY [id number] 07/02/2025 [id number] / / [id number] Stent Biliary Adult L30mm Dia1 - [id number] Implanted:Qty: 1 on 10/26/2023 by Lacie England MD at OR [facility] COOK : JOHANNA COURTNEY [id number] 06/27/2026 [id number] / / [id number] documented as of this encounter Advance Directives Documents on File Type Date Recorded Patient Executive Steward Expl anation Power of Price Clerk 07/30/2022 POWER OF A TTORNEY * [...] and were consensually agreed upon. Care Teams Resident Program Specialist Relationship Specialty Start Date End Date Jairo Kingston MD [address] [place] [address] PCP - General 12/21/05 documented as of this encounter
--- OUTSIDE RECORDS SUMMARY | 2024-04-26 10:54 | External Medical Summary | Summary of Care ---
Author Name Unknown Organization [facility] Address [address] [place] [address] Phone [phone] Care Team Providers Care Boiler Attendant Name Role Phone Jairo Kingston MD Primary Care Provider +1- [phone] Encounter Details Date Type Department Care Team (Late st Contact Info) Description 01/18/2024 10:00 AM EDT [facility], [facility] [address] [place] [address] Jenifer Linder, RN [address] [place] [address] Allergies Active Allergy Reactions Criticality Noted Date Comments Pavan Inhibitors Other (Please comment) 0 Hyperkalemia documented as of this encounter (statuses as of 01/18/2024) Medications Medication Sig Dispensed Refills Start Date [...] 0.1 % Nasal Solution (Astelin) Administer 1 [place] into nostril in the morning and 1 [place] before bedtime. 30 mL 1 01/11/2023 Active [...] COPD, group D, by GOLD 2017 classification ([facility]) Inhale 2 Puffs by mouth every 4 hours as needed for Wheezing. 54 g 6 11/23/2023 Active Furosemide 20 MG Oral Tablet (Lasix) TAKE 1 TABLET BY MOUTH twice DAILY 180 Tablet 1 12/08/2023 Active Doxycycline Hyclate 100 MG Oral TabletIndications:CO PD, group D, by GOLD 2017 classification ([facility]) Take 1 Tablet by mouth in the morning and 1 Tablet before bedtime. For as needed Rescue kit use when directed to take for COPD exacerbation. 14 Tablet 12/09/2023 Active Additional Information Patient not taking.Reported on 12/13/2023 predniSONE 20 MG Oral Tablet (Deltasone)Indicatio ns:COPD, group D, by GOLD 2017 classification ([facility]) Take 2 Tablets by mouth in the morning. USE NEEDED FOR EXACERBATION. COPD RESCUE KIT. 10 Tablet 12/09/2023 Active Metoprolol Tartrate 25 MG Oral Tablet (Lopressor) Take 1 Tablet by mouth in the morning and 1 Tablet before bedtime. 180 Tablet 3 12/22/2023 Active Apixaban 2.5 MG Oral Tablet (Eliquis)Indications :Recurrent cerebrovascular accidents (CVAs) ([facility]) Take 1 Tablet by mouth in the morning and 1 Tablet before bedtime. 120 Tablet 1 01/04/2024 Active Hospital, Clinic, or Other Facility Administered Medication Ordered Dose Route Frequency Start Date End Date Status Albuterol Sulfate (Proventil) (2.5 MG/3ML) 0.083% inhalation solution 2.5 mgIndications:COPD, group D, by GOLD 2017 classification ([facility]) 2.5 mg NEBULIZER PRN 10/03/2023 10/02/2024 Acti ve documented as of this encounter (statuses as of 01/18/2024) Active Problems Problem Noted Date Diagnosed Date Malnutrition of moderate degree 10/22/2023 SBO (small bowel obstruction) 10/21/2023 MAGDALENO (acute kidney injury) 10/21/2023 Chronic hypoxic respiratory failure, on home oxy gen therapy 10/21/2023 Last Assessment & Plan: "RED FLAG" COPD symptoms: Increased dyspnea on exertion Cough Wheezing Medication Regimen Class D - Inhaled Hjglcnylipkgzy-JURB-NBIY Combination Inhaler (Trellegy) Remote Patient Monitoring Vendor: [...] as of this encounter (statuses as of 01/18/2024) Resolved Problems Problem Noted Date Diagnosed Date [...] as of this encounter (statuses as of 01/18/2024) Immunizations Name Administration Dates Next Due COVID-19 [...] Sign Reading Time Taken Comments Blood Pressure 124/72 01/18/2024 12:48 PM EDT Pulse 72 01/18/2024 12:48 PM EDT Temperature 36.2 C (97.1 F) 01/18/2024 12:48 PM E DT Respiratory Rate 18 01/18/2024 12:48 PM EDT Oxygen Saturation 97% 01/18/2024 12:48 PM EDT Inhaled Oxygen Concentration - - [...] as of this encounter Progress Notes * Jenifer Linder RN - 01/18/2024 12:15 PM EDT Current Concerns: Last week had a black stool, then followed by another that had black streaks in it Labs were checks and hgb stable He reports he was feeling as normal Today reports stool is back to being brown Bottles out med review done In need of refills of Trelegy, Duoneb and Eliquis Pt is in [employer] ( [facility] ) - is going to fill out reimbursement papers for Eliquis to send in Trelegy is also in [employer] so going to send 1 month supply [phone] [facility] Physical Exam: Physical Exam Constitutional: General: He is not in acute distress. Cardiovascular: Rate and Rhythm: Normal rate and regular rhythm. Pulses: Normal pulses. Heart sounds: Normal heart sounds. Pulmonary: Breath sounds: Wheezing (left lobes, RML) present. Abdominal: Palpations: Abdomen is soft. Musculoskeletal: Right lower leg: Edema (trace) present. Left lower leg: Edema (trace) present. Skin: General: Skin is warm and dry. Neurological: Mental Status: He is alert and oriented to person, place, and time. Review of Systems: Review of Systems HENT: Negative. Eyes: Negative. Respiratory: Positive for cough (chronic, mucus clear to yellow in am) and shortness of breath (CAMARENA- at baseline). Cardiovascular: Positive for leg swelling. Gastrointestinal: Negative. Genitourinary: Negative. Musculoskeletal: Negative. Skin: Negative. Psychiatric/Behavioral: Negative. Care Plan Goal Progress: Orders Placed: No orders of the defined types were placed in this encounter. Medications Given: Care Gaps: Care Gaps Care gaps closed this contact:: Education;Medications;Plan of Care (POC) (01/18/24 1237) Type of medication care gap: Medication adherence (01/18/24 1237) Type of plan of care (POC) care gap: Creation of plan of care (POC) and/or Integrated Care Plan (ICP);Education and review of exacerbation plan (01/18/24 1237) documented in this encounter Plan of Treatment Upcoming Encounters Date Type Department Care Team (Late st Contact Info) Description 01/19/2024 4:45 PM EDT Imaging Radiology [address] [place] [address] 01/26/2024 9:50 AM EDT Office Visit Vascular Surgery, [address] [address] Mikhail Suazo MD [facility] [place] [address] 01/27/2024 2:00 PM EDT Hem/Onc Treatment Hematology/Oncology Treatment, [address] [phone] Hannah, Chair 2 Hem On[address] [place] [address] 02/23/2024 3:00 PM EST Home Visit [facility] at [facility] [address] [place] [address] Heath Zhang PA-C [address] [place] [address] 02/24/2024 2:00 PM EST Hem/Onc Treatment Hematology/Oncology Treatment, [place] [facility] [phone] Hannah, Chair 3 Hem Onc [facility] [address] [place] [address] [place] [address] 03/28/2024 3:20 PM EST Office Visit [facility] Disorders Ctr [facility] 132 [facility] [place], [place] [address] Shanika Fitzgerald, [address] [place], [place] [address] 04/03/2024 10:30 AM EST PulmDiagnostic Pulmonary Function Lab, [facility] 132 [facility] [place], [place] [address] West, [address] 132 [facility] [place] [address] 04/03/2024 11:00 AM EST PulmDiagnostic Pulmonary Function Lab, [facility] 132 [facility] [place] [address] West, [address]ft 132 [facility] [place] [address] 04/03/2024 1:40 PM EST Office Visit Pulmonary Medicine, [facility] 132 [facility] [place] [address] Devin Hodge MD [address] [facility] [address] 04/24/2024 6:00 PM EST Office Visit [facility] [address] [place] [phone] Jairo Kingston MD [address] [place] [address] 06/27/2024 2:45 PM EDT Office Visit Hematology/Oncology [facility] [address] [place], [place] [address] Michael Snyder MD [address] [place], [place] [address] 07/30/2024 4:00 PM EDT Office Visit NephrologyYuliet [address] [place] [address] Reggie Azevedo MD [address] [place] [address] Scheduled Procedures Name Priority Associated Diagnoses Date/Ti [...] this encounter Medical Devices Implanted Type Area Ladies' Locker Room Attendant Device Identifier Shelf Expiration Date Model / Serial / Lot Graft Hemasheild 20mm [id number] - [id number] Implanted:Qty: 1 on 01/13/2009 at OR [facility] N/A: Abdomen MICROVASIVE [id number] / / [id number] Clip Resolution 360 Endo 235cm - [id number] Implanted:Qty: 1 on 12/10/2022 by Lacie England MD at OR [facility] : ENDOSCOPY [id number] 07/02/2025 [id number] / / [id number] Clip Resolution 360 Endo 235cm - [id number] Implanted:Qty: 1 on 12/10/2022 by Lacie England MD at OR [facility] : ENDOSCOPY [id number] 07/02/2025 [id number] / / [id number] Stent Biliary Adult L30mm Dia1 - [id number] Implanted:Qty: 1 on 10/26/2023 by Lacie England MD at OR [facility] COOK : JOHANNA COURTNEY [id number] 06/27/2026 [id number] / / [id number] documented as of this encounter Advance Directives Documents on File Type Date Recorded Patient Cold Storage Supervisor Expl anation Power of Nurse Clinician 07/30/2022 POWER OF A TTORNEY * Full [...] and were consensually agreed upon. Care Teams Boiler Attendant Relationship Specialty Start Date End Date Jairo Kingston MD [address] [facility] [place] [address] PCP - General 12/21/05 documented as of this encounter
--- OUTSIDE RECORDS SUMMARY | 2024-04-26 10:55 | External Medical Summary | Summary of Care ---
Author Name Unknown Organization [facility] Address [address] [place] [place] [address] Phone [phone] Care Team Providers Care Wound Care Coordinator Name Role Phone Jairo Kingston MD Primary Care Provider [phone]- [phone] Encounter Details Date Type Department Care Team (Late st Contact Info) Description 01/05/2024 Population Health External Data Unspecified Department Allergies Active Allergy Reactions Criticality Noted Date Comments Pavan Inhibitors Other (Please comment) 0 Hyperkalemia documented as of this encounter (statuses as of 01/09/2024) Medications Medication Sig Dispensed Refills Start Date [...] 0.1 % Nasal Solution (Astelin) Administer 1 [place] into nostril in the morning and 1 [place] before bedtime. 30 mL 1 01/11/2023 Active [...] as of this encounter (statuses as of 01/09/2024) Active Problems Problem Noted Date Diagnosed Date Malnutrition of moderate degree 10/22/2023 SBO (small bowel obstruction) 10/21/2023 MAGDALENO (acute kidney injury) 10/21/2023 Chronic hypoxic respiratory failure, on home oxy gen therapy 10/21/2023 History of central retinal artery occlusion 07/2023 [...] as of this encounter (statuses as of 01/09/2024) Resolved Problems Problem Noted Date Diagnosed Date [...] as of this encounter (statuses as of 01/09/2024) Immunizations Name Administration Dates Next Due COVID-19 [...] Care Team (Late st Contact Info) Description 01/09/2024 1:00 PM EDT Home Visit [place] [facility] [address] [address] Heath Zhang PA-C [address] [address] 01/18/2024 10:00 AM EDT Home Visit [facility] [address] [address] Jenifer Linder RN [address] [address] 01/19/2024 4:45 PM EDT Imaging Radiology [address] [place] [address] 01/26/2024 9:50 AM EDT Office Visit Vascular Surgery, [address] [address] Mikhail Suazo MD [address] [facility] [place] [address] 01/27/2024 2:00 PM EDT Hem/Onc Treatment Hematology/Oncology Treatment, [place] 200 [facility] [place] [phone] Hannah, Chair 2 Hem Onc Scenery [address] [place] [address] 02/24/2024 2:00 PM EST Hem/Onc Treatment Hematology/Oncology Treatment, [place] 200 [facility], [place] [phone] Hannah, Chair 3 Hem Onc Scenery 200 [facility] [place] [address] 03/28/2024 3:20 PM EST Office Visit Sleep Disorders Ctr [facility] 132 [facility] [place] [phone] Shanika Fitzgerald, DO 132 [facility] [place] [address] 04/03/2024 10:30 AM EST PulmDiagnostic Pulmonary Function Lab, [facility] 132 [facility] [place] [address] [place], [address] 132 [facility] [place] [address] 04/03/2024 11:00 AM EST PulmDiagnostic Pulmonary Function Lab, [facility] 132 [facility] [place] [address] [place], [address] 132 [facility] [place] [address] 04/03/2024 1:40 PM EST Office Visit Pulmonary Medicine, [facility] [address] [place] [address] Devin Hodge MD [address] [place] [address] 04/24/2024 6:00 PM EST Office Visit [facility] [address] [place] [phone] Jairo Kingston MD [address] [place], [place] [phone] 06/27/2024 2:45 PM EDT Office Visit Hematology/Oncology [facility] [address] [place] [address] Michael Snyder MD 200 [place] [address] 07/30/2024 4:00 PM EDT Office Visit Nephrology, [facility] [address] [place] [address] Reggie Azevedo MD 200 [place] [address] Scheduled Procedures Name Priority Associated Diagnoses Date/Ti [...] Screening 10/09/2024 10/10/2023 AAA Monitoring 10/20/2024 10/21/2023, 0 06/2023, 01/27/2023, Additional history exists O2 ASSESSMENT COMPLETED IN PAST YEAR FOR COPD 10/25/2024 10/26/2023 Nephrology Referral 12/12/2024 12/13/2023 Hgb 12/29/2024 12/30/2023, 11/16, 11/04/2023, Additional history exists PTH 12/29/2024 12/30/2023, 0 10/2022, 12/31/2021, Additional history exists Phosphate 12/29/2024 [...] this encounter Medical Devices Implanted Type Area Professor Criminal Justice Device Identifier Shelf Expiration Date Model / Serial / Lot Graft Hemasheild 20mm [id number] - [id number] Implanted:Qty: 1 on 01/13/2009 at OR [facility] N/A: Abdomen MICROVASIVE [id number] / / [id number] Clip Resolution 360 Endo 235cm - [id number] Implanted:Qty: 1 on 12/10/2022 by Lacie England MD at OR [facility] : ENDOSCOPY [id number] 07/02/2025 [id number] / / [id number] Clip Resolution 360 Endo 235cm - [id number] Implanted:Qty: 1 on 12/10/2022 by Lacie England MD at OR [facility] [employer] : ENDOSCOPY [id number] 07/02/2025 [id number] / / [id number] Stent Biliary Adult L30mm Dia1 - [id number] Implanted:Qty: 1 on 10/26/2023 by Lacie England MD at OR [facility] COOK : JOHANNA COURTNEY [id number] 06/27/2026 [id number] / / [id number] documented as of this encounter Advance Directives Documents on File Type Date Recorded Patient Electrical Instrument Repairer Expl anation Power of Steward/Stewardess Dining Room 07/30/2022 POWER OF A TTORNEY * Full [...] and were consensually agreed upon. Care Teams Wound Care Coordinator Relationship Specialty Start Date End Date Jairo Kingston MD [address] [facility] [place] [address] PCP - General 12/21/05 documented as of this encounter
--- OUTSIDE RECORDS SUMMARY | 2024-04-26 10:55 | External Medical Summary | Summary of Care ---
Author Name Unknown Organization [facility] Address [address] [address] Phone [phone] Care Team Providers Care Fireboat Operator Name Role Phone Jairo Kingston MD Primary Care Provider [phone]- [phone] Reason for Visit * Reason Onset Date Comments [facility]: Maintenance 12/09/2023 Encounter Details Date Type Department Care Team (Late st Contact Info) Description 12/09/2023 Telephone [facility] [address] [place] [address] Jenifer Linder, RN [address] [place] [address] [facility]: Maintenance Allergies Active Allergy Reactions Criticality Noted Date Comments Pavan Inhibitors Other (Please comment) 0 Hyperkalemia documented as of this encounter (statuses as of 01/11/2024) Medications Medication Sig Dispensed Refills Start Date [...] 0.1 % Nasal Solution (Astelin) Administer 1 [place] into nostril in the morning and 1 [place] before bedtime. 30 mL 1 3 Active [...] twice DAILY 180 Tablet 1 4 Active Metoprolol Tartrate 25 MG Oral Tablet (Lopressor) Take 1 Tablet by mouth in the morning and 1 Tablet before bedtime. 180 Tablet 3 4 12/22/19 24 Discontinu ed(Refill) Apixaban 2.5 MG Oral Tablet (Eliquis)Indications :Recurrent cerebrovascular accidents (CVAs) ([facility]) Take 1 Tablet by mouth in the morning and 1 Tablet before bedtime. 180 Tablet 1 4 01/04/20 24 Discontinu ed(Refill) Hospital, Clinic, or Other Facility Administered Medication Ordered Dose Route Frequency Start Date End Date Status Albuterol Sulfate (Proventil) (2.5 MG/3ML) 0.083% inhalation solution 2.5 mgIndications:COPD, group D, by GOLD 2017 classification ([facility]) 2.5 mg NEBULIZER PRN 10/03/2023 10/02/2024 Acti ve documented as of this encounter (statuses as of 01/11/2024) Active Problems Problem Noted Date Diagnosed Date Malnutrition of moderate degree 10/22/2023 SBO (small bowel obstruction) 10/21/2023 MAGDALENO (acute kidney injury) 10/21/2023 Chronic hypoxic respiratory failure, on home oxy gen therapy 10/21/2023 Last Assessment & Plan: "RED FLAG" COPD symptoms: Increased dyspnea on exertion Cough Wheezing Medication Regimen Class D - Inhaled [id number] Combination Inhaler (Trellegy) Remote Patient Monitoring Vendor: [...] as of this encounter (statuses as of 01/11/2024) Resolved Problems Problem Noted Date Diagnosed Date [...] as of this encounter (statuses as of 01/11/2024) Immunizations Name Administration Dates Next Due COVID-19 [...] Telephone Encounter - Jenifer Linder RN - 12/14/2023 11:33 AM EDT Are you able to reach out to pt's daughter Mitzi regarding this information and what he needs to apply for the program? Thank you! * Telephone Encounter - Jenifer Linder RN - 12/09/2023 12:17 PM EDT Pt is is the "donut hole" and was notified that he has to pay over $400 for his eliquis and will also have to pay more out of pocket for his Trilogy inhaler in January. He is over the financial limit to be eligible for PACE/PACENET. Is there another way to help in paying for the costs of medications when in the donut hole? Thank you! documented in this encounter Plan of Treatment Upcoming Encounters Date Type Department Care Team (Late st Contact Info) Description 01/18/2024 10:00 AM EDT [address] Visit [place] [address] [address] Jenifer Linder RN 132 [facility] [address] 01/19/2024 4:45 PM EDT Imaging Radiology [address] [place] [facility] [address] 01/26/2024 9:50 AM EDT Office Visit Vascular Surgery, [address] [place] [address] Mikhail Suazo MD [address] [place] [address] 01/27/2024 2:00 PM EDT Hem/Onc Treatment Hematology/Oncology Treatment, [place] [address] [place] [phone] Hannah, Chair 2 Hem Onc Scenery [facility] [address] 02/23/2024 3:00 PM EST [facility] Visit [facility] [place] [address] [facility] [address] [place] [address] Heath Zhang PA-C [address] [place] [address] 02/24/2024 2:00 PM EST Hem/Onc Treatment Hematology/Oncology Treatment, [place] [address] [place], [place] [phone] Hannah, Chair 3 Hem Onc Scenery [address] [place] [address] 03/28/2024 3:20 PM EST Office Visit Sleep Disorders Ctr [facility] 132 [facility] [place] [phone] Shanika Fitzgerald, 132 [facility] [place] [address] 04/03/2024 10:30 AM EST PulmDiagnostic Pulmonary Function Lab, [facility] 132 [facility] [place] [address] [place], [address] 132 [facility] [place] [address] 04/03/2024 11:00 AM EST PulmDiagnostic Pulmonary Function Lab, [facility] 132 [facility] [place] [address] [place], [address] 132 [facility] [place] [address] 04/03/2024 1:40 PM EST Office Visit Pulmonary Medicine, [facility] 132 [facility] [place] [address] Devin Hodge MD [address] [address] 04/24/2024 6:00 PM EST Office Visit [facility] [address] [place] [phone] Jairo Kingston MD [address], [place] [phone] 06/27/2024 2:45 PM EDT Office Visit Hematology/Oncology [facility] 200 [facility] [place] [phone] Michael Snyder MD 200 [facility] [place] [address] 07/30/2024 4:00 PM EDT Office Visit Nephrology, [facility] 200 [facility] [place] [address] Reggie Azevedo MD 200 [facility] [place] [address] Scheduled Procedures Name Priority Associated Diagnoses Date/Ti [...] this encounter Medical Devices Implanted Type Area Chemist Physical Device Identifier Shelf Expiration Date Model / Serial / Lot Graft Hemasheild 20mm [id number] - [id number] Implanted:Qty: 1 on 01/13/2009 at OR [facility] N/A: Abdomen MICROVASIVE [id number] / / [id number] Clip Resolution 360 Endo 235cm - [id number] Implanted:Qty: 1 on 12/10/2022 by Lacie England MD at OR [facility] [employer] : ENDOSCOPY [id number] 07/02/2025 [id number] / / [id number] Clip Resolution 360 Endo 235cm - [id number] Implanted:Qty: 1 on 12/10/2022 by Lacie England MD at OR [facility] [employer] : ENDOSCOPY [id number] 07/02/2025 [id number] / / [id number] Stent Biliary Adult L30mm Dia1 - [id number] Implanted:Qty: 1 on 10/26/2023 by Lacie England MD at OR [facility] ROZ : JOHANNA COURTNEY [id number] 06/27/2026 [id number] / / [id number] documented as of this encounter Advance Directives Documents on File Type Date Recorded Patient Straddle Truck Operator Expl anation Power of Search Specialist 07/30/2022 POWER OF A TTORNEY * [...] and were consensually agreed upon. Care Teams Fireboat Operator Relationship Specialty Start Date End Date Jairo Kingston MD [address] [place] [address] PCP - General 12/21/05 documented as of this encounter
--- OUTSIDE RECORDS SUMMARY | 2024-04-26 10:55 | External Medical Summary ---
Author Name Unknown Address Unknown Organization K09:[facility] [place] [address] Laboratory Report Ordering Provider Test Date Status LOLLY ALEGRIA 01/13/2024 13:56:32 Final Observation Date Value Abnormality Reference (Units ) Status SYNC LEUKOCYTES IN BLOOD BY AUTOMATED COUNT 01/13/2024 13:56:32 9.37 4.00-10.80 (K/uL) Final Segs 01/13/2024 13:56:32 71.6 40.0-75.0 (%) Final Lymphs % 01/13/2024 13:56:32 12.0 Below low normal 18.0-42.0 (%) Final Monos 01/13/2024 13:56:32 10.6 1.0-11.0 (%) Final Eosinophils 01/13/2024 13:56:32 5.1 0.0-6.0 (%) Final Basos 01/13/2024 13:56:32 0.7 0.0-2.0 (%) Final Absolute Segs 01/13/2024 13:56:32 6.71 1.80-7.70 (K/uL) Final Lymphs, absolute 01/13/2024 13:56:32 1.12 1.00-4.80 (K/ul) Final Monos, Abs 01/13/2024 13:56:32 0.99 0.00-1.10 (K/uL) Final Eos, Abs 01/13/2024 13:56:32 0.48 0.00-0.70 (K/uL) Final Basos, Abs 01/13/2024 13:56:32 0.07 0.00-0.20 (K/uL) Final Performing Location [facility] [place] [address]
--- OUTSIDE RECORDS SUMMARY | 2024-04-26 10:55 | External Medical Summary | Summary of Care ---
Author Name Unknown Organization [facility] Address [address] [place] [address] Phone [phone] Care Team Providers Care Gasoline Engine Inspector Name Role Phone Jairo Kingston MD Primary Care Provider [phone]- [phone] Encounter Details Date Type Department Care Team (Late st Contact Info) Description 01/09/2024 1:00 PM EDT [facility] Visit [facility] [address] [place] [address] Heath Zhang PA-C [address] [place] [address] Chronic hypoxic respiratory failure, on home oxygen therapy (HCC)*; Benign hypertensive kidney disease, stage IV (HCC); Iron deficiency anemia due to chronic blood loss; GINNY on CPAP; Advanced care planning/counseling discussion Allergies Active Allergy Reactions Criticality Noted Date Comments Pavan Inhibitors Other (Please comment) 0 Hyperkalemia documented as of this encounter (statuses as of 01/10/2024) Medications Medication Sig Dispensed Refills Start Date [...] 0.1 % Nasal Solution (Astelin) Administer 1 Saint George into nostril in the morning and 1 Saint George before bedtime. 30 mL 1 01/11/2023 Active [...] 2017 classification (FORMERLY [facility]) Inhale 2 Puffs by mouth every 4 hours as needed for Wheezing. 54 g 6 11/23/2023 Active Furosemide 20 MG Oral Tablet (Lasix) TAKE 1 TABLET BY MOUTH twice DAILY 180 Tablet 1 12/08/2023 Active Doxycycline Hyclate 100 MG Oral TabletIndications:CO PD, group D, by GOLD 2017 classification (FORMERLY [facility]) Take 1 Tablet by mouth in the morning and 1 Tablet before bedtime. For as needed Rescue kit use when directed to take for COPD exacerbation. 14 Tablet 12/09/2023 Active Additional Information Patient not taking.Reported on 12/13/2023 predniSONE 20 MG Oral Tablet (Deltasone)Indicatio ns:COPD, group D, by GOLD 2017 classification (FORMERLY [facility]) Take 2 Tablets by mouth in the morning. USE NEEDED FOR EXACERBATION. COPD RESCUE KIT. 10 Tablet 12/09/2023 Active Metoprolol Tartrate 25 MG Oral Tablet (Lopressor) Take 1 Tablet by mouth in the morning and 1 Tablet before bedtime. 180 Tablet 3 12/22/2023 Active Apixaban 2.5 MG Oral Tablet (Eliquis)Indications :Recurrent cerebrovascular accidents (CVAs) (FORMERLY [facility]) Take 1 Tablet by mouth in the morning and 1 Tablet before bedtime. 120 Tablet 1 01/04/2024 Active Hospital, Clinic, or Other Facility Administered Medication Ordered Dose Route Frequency Start Date End Date Status Albuterol Sulfate (Proventil) (2.5 MG/3ML) 0.083% inhalation solution 2.5 mgIndications:COPD, group D, by GOLD 2017 classification (FORM[facility]LY [facility]) 2.5 mg NEBULIZER PRN 10/03/2023 10/02/2024 Acti ve documented as of this encounter (statuses as of 01/10/2024) Active Problems Problem Noted Date Diagnosed Date Malnutrition of moderate degree 10/22/2023 SBO (small bowel obstruction) 10/21/2023 MAGDALENO (acute kidney injury) 10/21/2023 Chronic hypoxic respiratory failure, on home oxy gen therapy 10/21/2023 Last Assessment & Plan: "RED FLAG" COPD symptoms: Increased dyspnea on exertion Cough Wheezing Medication Regimen Class D - Inhaled Liyidzjwahaamc-EGQY-KORC Combination Inhaler (Trellegy) Remote Patient Monitoring Vendor: [...] 0 11/11/2022 Last Assessment & Plan: 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 (Household - for [...] as of this encounter Progress Notes * Heath Zhang PA-C - 01/09/2024 1:04 PM EDT Images from the original note were not included. [facility] Problem Oriented Charting Provider Visit Date: 01/09/2024 Time: 1:13 PM Assessment and Plan #1 Chronic hypoxic respiratory failure, on home oxygen therapy (HCC) (Primary) Assessment & Plan: "RED FLAG" COPD symptoms: Increased dyspnea on exertion Cough Wheezing Medication Regimen Class D - Inhaled Fbvelxijnvlpvm-JDVG-RFLA Combination Inhaler (Trellegy) Remote Patient Monitoring Vendor: [...] needed O2 at hs and as needed #2 Benign hypertensive kidney disease, stage IV ([facility]) #3 Iron deficiency anemia due to chronic blood loss Assessment & Plan: Continue f/u with hematology Hemoglobin Results: Lab Results Component Value Date/Time HGB 11.1 (L) 12/30/2023 01:53 PM HGB 10.7 (L) 12/02/2023 01:54 PM HGB 9.6 (L) 11/04/2023 02:04 PM HGB 6.4 (LL) 12/08/2022 12:43 PM HGB 11.1 (A) 06/10/2020 12:00 AM HGB 12.1 (L) 02/08/2020 09:48 AM HGB 13.4 (L) 05/24/2019 09:33 AM HGB 14.8 09/28/2018 10:41 AM #4 GINNY on CPAP Assessment & Plan: Continue CPAP with o2 #5 Advanced care planning/counseling discussion Additional Medical Decision Making: Patient lives with spouse Spouse has dementia and patient is primary caregiver, becoming increasingly difficult for patient to manage Independent with ADLs Kids assisting with meals and laundry Working on getting home delivered meals Continues to follow with PCP, oncology, pulmonary, nephrology Scheduled appointments in the next 60 days: Future Appointments-next 60 days Date/Time Provider Specialty Dept Phone 01/18/2024 10:00 AM Jenifer Linder RN [facility] [phone] 01/19/2024 4:45 PM [address]1 [facility] Radiology [phone] 01/26/2024 9:50 AM Mikhail Suazo MD Vascular Surgery [phone] 01/27/2024 2:00 PM Park, Chair 2 Hem Onc Scenery Hematology Oncology [phone] 02/24/2024 2:00 PM Hannah, Chair 3 Hem Onc Scenery Hematology Oncology [phone] 03/28/2024 3:20 PM (Arrive by 3:05 PM) Shanika Fitzgerald DO Sleep Disorders [phone] 04/03/2024 10:30 AM Shay Pft Pulmonary Function [phone] 04/03/2024 11:00 AM West Pft Pulmonary Function [phone] 04/03/2024 1:40 PM (Arrive by 1:25 PM) Devin Hodge MD Pulmonary [phone] 04/24/2024 6:00 PM (Arrive by 5:45 PM) Jairo Kingston MD Family Medicine [phone] 06/27/2024 2:45 PM (Arrive by 2:30 PM) Michael Snyder MD Hematology Oncology [phone] 07/30/2024 4:00 PM (Arrive by 3:45 PM) Reggie Azevedo MD Nephrology [phone] A total of 35 minutes was spent face to face (via video-based telemedicine if designated as a telemedicine visit) Subjective Subjective Is this a Telemedicine Visit? No, this is an Home Visit. Reason For [facility] Visit: Follow-Up Current Concerns: Mikhail Fung is a 73 year old male seen today for a [facility] provider visit. PMH includes COPD., HTN, diastolic CHF, CKD stage 4, dyslipidemia, GINNY on CPAP, severe aortic stenosis, anemia, h/o GI bleed, h/o CVA. 01/30-02/02/23 - [facility] - COPD exac 04/22-04/25/23- [facility] - UGI bleed, pneumonia 07/21/23 - [facility] ER - dizziness 09/02-09/05/23 - [facility] - COPD exac 09/13-09/15/23 - [facility] -UGI bleed Today's concerns are : Denies concerns Breathing at baseline today Chronic CAMARENA Denies SOB at rest Denies chest pain, fever/chills Intermittent cough Last used rescue kit last month Using o2 and cpap at hs Occasionally using o2 during the day if feeling SOB Duonebs 4-5 x day Additional I have reviewed the following results: Current Outpatient Medications Medication Sig Dispense Refill Albuterol Sulfate HFA 108 (90 Base) MCG/ACT Inhalation Aerosol Solution Inhale 2 Puffs by mouth every 4 hours as needed for Wheezing. 54 g 6 Allopurinol 300 MG Oral Tablet (Zyloprim) TAKE ONE-HALF TABLET BY MOUTH EVERY DAY 45 Tablet 2 Apixaban 2.5 MG Oral Tablet (Eliquis) Take 1 Tablet by mouth in the morning and 1 Tablet before bedtime. 120 Tablet 1 Ascorbic Acid 250 MG Oral Tablet Take 0.5 Tablets by mouth daily at noon. 90 Tablet 3 Atorvastatin Calcium 80 MG Oral Tablet (Lipitor) Take 1 Tablet by mouth daily. Azelastine HCl 0.1 % Nasal Solution (Astelin) Administer 1 Saint George into nostril in the morning and 1 [place] George before bedtime. 30 mL 1 CPAP every night at bedtime. CVS D3 50 MCG (1999 UT) Oral Capsule (Cholecalciferol) TAKE 1 CAPSULE BY MOUTH EVERY DAY 90 Cap 1 Docusate Sodium 100 MG Oral Capsule (Colace) Take 1 Capsule by mouth 2 times a day as needed for Constipation. (Patient taking differently: Take 1 Capsule by mouth in the morning and 1 Capsule beforebedtime.) 180 Capsule 3 Doxycycline Hyclate 100 MG Oral Tablet Take 1 Tablet by mouth in the morning and 1 Tablet before bedtime. For as needed Rescue kit use when directed to take for COPD exacerbation. (Patient not taking: Reported on 12/13/2023) 14 Tablet 0 Ezetimibe 10 MG Oral Tablet (Zetia) TAKE ONE TABLET BY MOUTH EVERY MORNING 90 Tablet 3 Fluticasone Propionate 50 MCG/ACT Nasal Suspension (Flonase) INSTILL 2 SPRAYS INTO EACH NOSTRIL EVERY DAY 48 g 3 Furosemide 20 MG Oral Tablet (Lasix) TAKE 1 TABLET BY MOUTH twice DAILY 180 Tablet 1 guaiFENesin ER 600 MG Oral Tablet Extended Release 12 Hour (Humibid LA) Take 1 Tablet by mouth in the morning and 1 Tablet before bedtime. Ipratropium-Albuterol 0.5-2.5 (3) MG/3ML Inhalation Solution (Duoneb) Inhale 3 mL by mouth every 6 hours as needed (sob). 360 mL 5 Metoprolol Tartrate 25 MG Oral Tablet (Lopressor) Take 1 Tablet by mouth in the morning and 1 Tablet before bedtime. 180 Tablet 3 oxygen GAS Use 3 L/min(Oxygen) as directed at bedtime. Use 2-3 l/min continuously to keep pulse ox above 90% Pantoprazole Sodium 40 MG Oral Tablet Delayed Release (Protonix) Take 1 Tablet by mouth in the morning and 1 Tablet before bedtime. 180 Tablet 3 Potassium Chloride ER 10 MEQ Oral Capsule Extended Release Take 1 Capsule by mouth in the morning On Tuesday, Tuesday and Tuesday only 45 Capsule 3 predniSONE 20 MG Oral Tablet (Deltasone) Take 2 Tablets by mouth in the morning. USE NEEDED FOR EXACERBATION. COPD RESCUE KIT. 10 Tablet 0 Trelegy Ellipta 100-62.5-25 MCG/ACT Aerosol Powder Breath Activated (Sspuioezyjd-Bbnwvxvswygu-Rzaykyrdks) INHALE ONE PUFF BY MOUTH EVERY DAY 180 Each 1 Current Facility-Administered Medications Medication Dose Route Frequency Provider Last Rate Last Admin Albuterol Sulfate (Proventil) (2.5 MG/3ML) 0.083% inhalation solution 2.5 mg 2.5 mg Nebulizer PRN Objective Objective There were no vitals filed for this visit. Last Weights: Wt Readings from Last 3 Encounters: 12/13/23 93.4 kg (206 lb) 11/08/23 89.2 kg (196 lb 9.6 oz) 10/27/23 78 kg (172 lb) Last BPs: BP Readings from Last 4 Encounters: 12/30/23 160/83 12/13/23 146/76 12/09/23 136/74 12/02/23 121/74 General: alert and no distress Neuro: alert & oriented x 3 with fluent speech Heart: regular rate & rhythm and no murmur Lungs: decreased breath sounds, expiratory wheezes bilaterally Abdomen: abdomen soft, non-tender, normal bowel sounds, and no masses or organomegaly Ext: trace edema bilat LE Heath Zhang PA-C 1:13 PM documented in this encounter Miscellaneous Notes * ACP (Advance Care Planning) - Heath Zhang PA-C - 01/10/2024 5:25 PM EDT Images from the original note were not included. Patient-centered Communication 01/09/2024 The patient/surrogate voluntarily agreed to participate in advance care planning discussion. They were advised that this is a separate service which may incur out of pocket cost in the form of copayment and/or deductibles. Location: Home Individual(s) present for conversation: Patient Decisions Synopsis Yvolver Most Recent Value Past ~10 years 01/10/2024 17:22 Decisions CPR decision: Patient chooses CPR 01/10/2024 Patient chooses CPR Intubation/Mechanical Ventilation decision: Patient chooses Intubation/mechanical ventilation 01/10/2024 Patient chooses Intubation/mechanical ventilation Non-invasive ventilation or BIPAP decision: Patient chooses non-invasive ventilation. Select interventions below 02/14/2023 Non-Invasive Ventilation Interventions: BIPAP;CPAP;Oxygen only;NIV 02/14/2023 Antibiotic therapy decision: Patient chooses Antibiotic therapy 02/14/2023 Artificial nutrition decision: Undecided about Artificial nutrition 12/13/2022 IV hydration decision: Patient chooses IV hydration 12/13/2022 Chemotherapy decision: Undecided about Chemotherapy 12/13/2022 Radiation therapy decision: Undecided about Radiation therapy 12/13/2022 Surgical procedure(s) decision: Patient chooses Surgical procedure 12/13/2022 Blood transfusion decision: Patient chooses Blood transfusion 12/13/2022 Lab draw decision: Patient chooses Lab draws 12/13/2022 Transport decision: Patient chooses Transport 12/13/2022 Dialysis decision: Undecided about Dialysis 12/13/2022 Additional Comments Synopsis SmartHorsealot Most Recent Value Past ~10 years 12/13/2022 16:09 Additional Comments Additional Comments: Many interventions depends on circumstances, pt is undecided, depends on prognosis at time intervention needed - for now wants CPR and most treatments if can be short term and life prolonged 12/13/2022 Many interventions depends on circumstances, pt is undecided, depends on prognosis at time intervention needed - for now wants CPR and most treatments if can be short term and life prolonged Discerning What Matters Most to the Patient: Synminnie SmartLink Most Recent Value Past ~10 years 01/10/2024 17:22 Discerning What Matters Most to the Patient In their own words, patient's UNDERSTANDING of their illness is: "i know my breathing isnt good, i need to use oxygen" "i get regular iron infusions to help bring my blood levels up" 01/10/2024 "i know my breathing isnt good, i need to use oxygen" "i get regular iron infusions to help bring my blood levels up" Their current SYMPTOMS include: Tiredness;Shortnes of breath;Reduced overall well being 01/10/2024 Tiredness;Shortnes of breath;Reduced overall well being They say their illness has CHANGED THEIR [...] HOPES are: Maintain current functional abilities 07/07/2020 Source: Content from [employer] Aligning Care With What Matters Most: Synopsis SmartHorse[employer]ot Most Recent Value Past ~10 years 01/10/2024 17:22 Aligning Care With What Matters Most Interventions/Choices: CPR;Intubation/mechanical ventilation 01/10/2024 CPR;Intubation/mechanical ventilation Source: Content from [employer] 10 minutes spent in direct vvel-ax-stdt discussion today, Heath Zhang PA-C * Assessment & Plan Note - Heath Zhang PA-C - 01/10/2024 5:19 PM EDT Associated Problem(s): Chronic hypoxic respiratory failure, on home oxygen therapy (HCC) "RED FLAG" COPD symptoms: Increased dyspnea on exertion Cough Wheezing Medication Regimen Class D - Inhaled Kprszyjmnmjwxb-TQDO-CEGU Combination Inhaler (Trellegy) Remote Patient Monitoring Vendor: [...] needed O2 at hs and as needed * Assessment & Plan Note - Heath Zhang PA-C - 01/10/2024 5:16 PM EDT Associated Problem(s): Iron deficiency anemia due to chronic blood loss Continue f/u with hematology Hemoglobin Results: Lab Results Component Value Date/Time HGB 11.1 (L) 12/30/2023 01:53 PM HGB 10.7 (L) 12/02/2023 01:54 PM HGB 9.6 (L) 11/04/2023 02:04 PM HGB 6.4 (LL) 12/08/2022 12:43 PM HGB 11.1 (A) 06/10/2020 12:00 AM HGB 12.1 (L) 02/08/2020 09:48 AM HGB 13.4 (L) 05/24/2019 09:33 AM HGB 14.8 09/28/2018 10:41 AM * Assessment & Plan Note - Heath Zhang PA-C - 01/10/2024 5:15 PM EDT Associated Problem(s): GINNY on CPAP Continue CPAP with o2 documented in this encounter Plan of Treatment Upcoming Encounters Date Type Department Care Team (Late st Contact Info) Description 01/18/2024 10:00 AM EDT Home Visit [facility], [facility] [address] [address] Jenifer Linder, RN [address] [place] [address] 01/19/2024 4:45 PM EDT Imaging Radiology [address] [place] [address] 01/26/2024 9:50 AM EDT Office Visit Vascular Surgery, [address] [place] [address] Mikhail Suazo MD [address] [place] [address] 01/27/2024 2:00 PM EDT Hem/Onc Treatment Hematology/[address] [id number] Hannah, Chair 2 Hem Onc Scenery [address] [place] [address] [place] [address] 02/23/2024 3:00 PM EST Home Visit [facility], [facility] [address] [address] Heath Zhang PA-C [address] [place] [address] 02/24/2024 2:00 PM EST Hem/Onc Treatment Hematology/[address]cology [address], [address] [phone] Hannah, Chair 3 Hem Onc Scenery [address] [facility] [place] [address] 03/28/2024 3:20 PM EST Office Visit Sleep Disorders Ctr [facility] [address] [facility] [place], [place] [address] Shanika Fitzgerald, DO 132 [facility] [place], [place] [address] 04/03/2024 10:30 AM EST PulmDiagnostic Pulmonary Function Lab, [facility] [address] [facility] [place], [place] [address] West, Pft 132 [facility] [place] [address] 04/03/2024 11:00 AM EST PulmDiagnostic Pulmonary Function Lab, [facility] [address] [facility] [place], [place] [address] West, Pft [facility] [address] 04/03/2024 1:40 PM EST Office Visit Pulmonary Medicine, [facility] [address] [facility] [address] [place] [address] Devin Hodge MD [address] [place] [address] 04/24/2024 6:00 PM EST Office Visit [facility] [address] [place] [phone] Jairo Kingston MD [address] [place] [address] 06/27/2024 2:45 PM EDT Office Visit Hematology/Oncology [facility] [address] [place] [phone] Michael Snyder MD [address] [place] [address] 07/30/2024 4:00 PM EDT Office Visit Nephrology, [facility] [address] [place] [address] Reggie Azevedo MD [address] [place] [address] Scheduled Procedures Name Priority Associated Diagnoses Date/Ti [...] 11/04/2023, Additional history exists PTH 12/29/2024 12/30/2023, 11/0 10/2022, 12/31/2021, Additional history exists Phosphate 12/29/2024 12/30/2023, 07/0 09/2023, 02/22/2023, Additional history exists Colonoscopy 01/02/2026 [...] this encounter Medical Devices Implanted Type Area Driller'S Offsider Device Identifier Shelf Expiration Date Model / Serial / Lot Graft Hemasheild 20mm [id number] - [id number] Implanted:Qty: 1 on 01/13/2009 at OR [facility] N/A: Abdomen MICROVASIVE [id number] / / [id number] Clip Resolution 360 Endo 235cm - [id number] Implanted:Qty: 1 on 12/10/2022 by Lacie England MD at OR [facility] [employer] : ENDOSCOPY [id number] 07/02/2025 [id number] / / [id number] Clip Resolution 360 Endo 235cm - [id number] Implanted:Qty: 1 on 12/10/2022 by Lacie England MD at OR [facility] [employer] : ENDOSCOPY [id number] 07/02/2025 [id number] / / [id number] Stent Biliary Adult L30mm Dia1 - [id number] Implanted:Qty: 1 on 10/26/2023 by Lacie England MD at OR [facility] COOK : JOHANNA COURTNEY [id number] 06/27/2026 [id number] / / [id number] documented as of this encounter Visit Diagnoses Diagnosis Chronic hypoxic respiratory failure, on home oxygen [...] Documents on File Type Date Recorded Patient Healthcare Prof Expl anation Power of Packing Machine Tender 07/30/2022 POWER OF A TTORNEY * Full [...] and were consensually agreed upon. Care Teams Gasoline Engine Inspector Relationship Specialty Start Date End Date Jairo Kingston MD [address] [place] [address] PCP - General 12/21/05 documented as of this encounter
--- OUTSIDE RECORDS SUMMARY | 2024-04-26 10:55 | External Medical Summary | Summary of Care ---
Author Name Unknown Organization [facility] Address [address] [place] [address] Phone [phone] Care Team Providers Care Lumber Tallier Name Role Phone Jairo Kingston MD Primary Care Provider [phone] Encounter Details Date Type Department Care Team (Late st Contact Info) Description 01/11/2024 Telephone [facility] [address] [place] [address] Jairo Kingston MD [address] [place] [address] Allergies Active Allergy Reactions Criticality Noted Date Comments Pavan Inhibitors Other (Please comment) 0 Hyperkalemia documented as of this encounter (statuses as of 01/12/2024) Medications Medication Sig Dispensed Refills Start Date [...] 0.1 % Nasal Solution (Astelin) Administer 1 [place] into nostril in the morning and 1 [place] before bedtime. 30 mL 1 01/11/2023 Active [...] D, by GOLD 2017 classification ([facility]) Inhale 2 Puffs by mouth every 4 hours as needed for Wheezing. 54 g 6 11/23/2023 Active Furosemide 20 MG Oral Tablet (Lasix) TAKE 1 TABLET BY MOUTH twice DAILY 180 Tablet 1 12/08/2023 Active Doxycycline Hyclate 100 MG Oral TabletIndications:CO PD, group D, by GOLD 2017 classification ([facility]) Take 1 Tablet by mouth in the morning and 1 Tablet before bedtime. For as needed Rescue kit use when directed to take for COPD exacerbation. 14 Tablet 12/09/2023 Active Additional Information Patient not taking.Reported on 12/13/2023 predniSONE 20 MG Oral Tablet (Deltasone)Indicatio ns:COPD, group D, by GOLD 2017 classification ([facility]) Take 2 Tablets by mouth in the morning. USE NEEDED FOR EXACERBATION. COPD RESCUE KIT. 10 Tablet 12/09/2023 Active Metoprolol Tartrate 25 MG Oral Tablet (Lopressor) Take 1 Tablet by mouth in the morning and 1 Tablet before bedtime. 180 Tablet 3 12/22/2023 Active Apixaban 2.5 MG Oral Tablet (Eliquis)Indications :Recurrent cerebrovascular accidents (CVAs) ([facility]) Take 1 Tablet by mouth in the morning and 1 Tablet before bedtime. 120 Tablet 1 01/04/2024 Active Hospital, Clinic, or Other Facility Administered Medication Ordered Dose Route Frequency Start Date End Date Status Albuterol Sulfate (Proventil) (2.5 MG/3ML) 0.083% inhalation solution 2.5 mgIndications:COPD, group D, by GOLD 2017 classification ([facility]) 2.5 mg NEBULIZER PRN 10/03/2023 10/02/2024 Acti ve documented as of this encounter (statuses as of 01/12/2024) Active Problems Problem Noted Date Diagnosed Date Malnutrition of moderate degree 10/22/2023 SBO (small bowel obstruction) 10/21/2023 MAGDALENO (acute kidney injury) 10/21/2023 Chronic hypoxic respiratory failure, on home oxy gen therapy 10/21/2023 Last Assessment & Plan: "RED FLAG" COPD symptoms: Increased dyspnea on exertion Cough Wheezing Medication Regimen Class D - Inhaled Rpkypzpocbxgmv-FEEP-RZMM Combination Inhaler (Trellegy) Remote Patient Monitoring Vendor: [...] 0 11/11/2022 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 GINNY on CPAP 11/11/2022 [...] as of this encounter (statuses as of 01/12/2024) Resolved Problems Problem Noted Date Diagnosed Date [...] as of this encounter (statuses as of 01/12/2024) Immunizations Name Administration Dates Next Due COVID-19 [...] AM EDT Home Visit [facility], [facility] [address] [place] [address] Jenifer Linder RN [address] [place] [address] 01/19/2024 4:45 PM EDT Imaging Radiology [address] [place] [address] 01/26/2024 9:50 AM EDT Office Visit Vascular Surgery, [address] [address] Mikhail Suazo MD [address] [place] [address] 01/27/2024 2:00 PM EDT Hem/Onc Treatment Hematology/Oncology Treatment, [place] [address] [place] [phone] Hannah, Chair 2 Hem Onc Scenery [address] [facility] [place] [address] 02/23/2024 3:00 PM EST Home Visit [facility], [facility] [address] [place] [address] Heath Zhang PA-C [address] [place] [address] 02/24/2024 2:00 PM EST Hem/Onc Treatment [facility] [place] [address] [facility] [phone] Hannah, Chair 3 Hem Onc Scenery [address] [place] [address] 03/28/2024 3:20 PM EST Office Visit [facility] [address] [facility] [place] [address] Shanika Fitzgerald, [address] [facility] [place] [address] 04/03/2024 10:30 AM EST PulmDiagnostic Pulmonary Function Lab, [facility] [address] [facility] [place] [address] [place], [address] [place] [address] 04/03/2024 11:00 AM EST PulmDiagnostic Pulmonary Function Lab, [facility] [address] [facility] [place] [address] [place] [address] [facility] [address] 04/03/2024 1:40 PM EST Office Visit Pulmonary Medicine, [facility] [address] [facility] [place], [place] [address] Devin Hodge MD [address] [place] [facility] [place] [address] 04/24/2024 6:00 PM EST Office Visit [facility] [address] [place] [phone] Jairo Kingston MD [address] [place] [address] 06/27/2024 2:45 PM EDT Office Visit Hematology/Oncology [facility] [address] [facility] [place] [phone] Michael Snyder MD [address] [facility] [place], [place] [address] 07/30/2024 4:00 PM EDT Office Visit Nephrology, Yuliet Young [address] [place] [address] Reggie Azevedo MD [address] [place] [address] Scheduled Procedures Name Priority Associated Diagnoses Date/Ti [...] this encounter Medical Devices Implanted Type Area Steamer Tender Device Identifier Shelf Expiration Date Model / Serial / Lot Graft Hemasheild 20mm [id number] - [id number] Implanted:Qty: 1 on 01/13/[address] [facility] [place] N/A: Abdomen MICROVASIVE [id number] / / [id number] Clip Resolution 360 Endo 235cm - [id number] Implanted:Qty: 1 on 12/10/2022 by Lacie England MD at OR [facility] [employer] : ENDOSCOPY [id number] 07/02/2025 [id number] / / [id number] Clip Resolution 360 Endo 235cm - [id number] Implanted:Qty: 1 on 12/10/2022 by Lacie England MD at OR [facility] [employer] : ENDOSCOPY [id number] 07/02/2025 [id number] / / [id number] Stent Biliary Adult L30mm Dia1 - [id number] Implanted:Qty: 1 on 10/26/2023 by Lacie England MD at OR [facility] COOK : JOHANNA COURTNEY [id number] 06/27/2026 [id number] / / [id number] documented as of this encounter Advance Directives Documents on File Type Date Recorded Patient Setter Automatic Spinning Lathe Expl anation Power of Customer Service Teller 07/30/2022 POWER OF A TTORNEY * Full [...] and were consensually agreed upon. Care Teams Lumber Tallier Relationship Specialty Start Date End Date Jairo Kingston MD [address] [place] [address] PCP - General 12/21/05 documented as of this encounter
--- OUTSIDE RECORDS SUMMARY | 2024-04-26 10:55 | External Medical Summary ---
Author Name Unknown Address Unknown Organization K09[facility] [place] [address] Laboratory Report Ordering Provider Test Date Status LOLLY ALEGRIA 01/13/2024 13:56:32 Final Observation Date Value Abnormality Reference (Units ) Status WBC, Total 01/13/2024 13:56:32 9.37 4.00-10.8 0 (K/uL) Final RBC 01/13/2024 13:56:32 3.68 4.50-5.25 (M/uL) Final Hemoglobin 01/13/2024 13:56:32 11.8 Below low normal 14 .0-16.8 (g/dL) Final HCT 01/13/2024 13:56:32 37.5 Below low normal 40. 0-48.4 (%) Final MCV 01/13/2024 13:56:32 101.9 82.0-99.5 (fL) Final MCH 01/13/2024 13:56:32 32.1 27.0-34.0 (pg) Final MCHC 01/13/2024 13:56:32 31.5 32.0-36.0 (g/dL) Final RDW 01/13/2024 13:56:32 17.0 11.5-15.5 (%) Final Platelets 01/13/2024 13:56:32 172 140-400 (K /uL) Final MPV 01/13/2024 13:56:32 11.3 6.6-11.1 ( fL) Final Performing Location [facility] [place] [address]
--- OUTSIDE RECORDS SUMMARY | 2024-04-26 10:55 | External Medical Summary | Summary of Care ---
Author Name Unknown Organization [facility] Address [address] [facility] [address] Phone [phone] Care Team Providers Care Visitor Services Coordinator Name Role Phone Jairo Kingston MD Primary Care Provider [phone]- [phone] Reason for Visit * Reason Comments Infusion Venofer Encounter Details Date Type Department Care Team (Latest Contact Info) Description 12/30/2023 2:00 PM EDT Hem/Onc Treatment Hematology/Oncolog y Treatment, [address] [address] Hannah, Chair 5 Hem Onc [address] [address] Iron deficiency anemia due to chronic blood loss*; CKD (chronic kidney disease) stage 4, GFR 15-29 ml/min (HCC); Monoclonal paraproteinemia Allergies Active Allergy Reactions Criticality Noted Date Comments Pavan Inhibitors Other (Please comment) 0 Hyperkalemia documented as of this encounter (statuses as of 01/06/2024) Medications Medication Sig Dispensed Refills Start Date [...] 0.1 % Nasal Solution (Astelin) Administer 1 Pemberton into nostril in the morning and 1 Pemberton before bedtime. 30 mL 1 3 Active [...] D, by GOLD 2017 classification ([facility]) Inhale 2 Puffs by mouth every 4 hours as needed for Wheezing. 54 g 6 4 Active Furosemide 20 MG Oral Tablet (Lasix) TAKE 1 TABLET BY MOUTH twice DAILY 180 Tablet 1 4 Active Doxycycline Hyclate 100 MG Oral TabletIndications:CO PD, group D, by GOLD 2017 classification ([facility]) Take 1 Tablet by mouth in the morning and 1 Tablet before bedtime. For as needed Rescue kit use when directed to take for COPD exacerbation. 14 Tablet 4 Active Additional Information Patient not taking.Reported on 12/13/2023 predniSONE 20 MG Oral Tablet (Deltasone)Indicatio ns:COPD, group D, by GOLD 2017 classification ([facility]) Take 2 Tablets by mouth in the morning. USE NEEDED FOR EXACERBATION. COPD RESCUE KIT. 10 Tablet 4 Active Metoprolol Tartrate 25 MG Oral Tablet (Lopressor) Take 1 Tablet by mouth in the morning and 1 Tablet before bedtime. 180 Tablet 3 4 Active Apixaban 2.5 MG Oral Tablet (Eliquis)Indications :Recurrent cerebrovascular accidents (CVAs) ([facility]) Take 1 Tablet by mouth in the morning and 1 Tablet before bedtime. 180 Tablet 1 4 01/04/20 24 Discontinu ed(Refill) Hospital, Clinic, or Other Facility Administered Medication Ordered Dose Route Frequency Start Date End Date Status Albuterol Sulfate (Proventil) (2.5 MG/3ML) 0.083% inhalation solution 2.5 mgIndications:COPD, group D, by GOLD 2017 classification ([facility]) 2.5 mg NEBULIZER PRN 10/03/2023 10/02/2024 Acti ve documented as of this encounter (statuses as of 01/06/2024) Active Problems Problem Noted Date Diagnosed Date [...] as of this encounter (statuses as of 01/06/2024) Resolved Problems Problem Noted Date Diagnosed Date [...] as of this encounter (statuses as of 01/06/2024) Immunizations Name Administration Dates Next Due COVID-19 [...] No 12/12/2023 Does the household have a [facility] source of income? (Household - for ages [...] 1:00 PM EDT Home Visit [facility] [address] [address] Heath Zhang PA-C [address] [address] 01/18/2024 10:00 AM EDT Home Visit [facility] [address] [address] Jenifer Linder RN [address] [address] 01/19/2024 4:45 PM EDT Imaging Radiology [facility] 1st [facility] 132 [facility] [place] [address] 01/26/2024 9:50 AM EDT Office Visit Vascular Surgery, [address] [place] [address] Mikhail Suazo MD [address] [place] [address] 01/27/2024 2:00 PM EDT Hem/Onc Treatment Hematology/Oncology Treatment, [place] [facility] [phone] Hannah, Chair 2 Hem Onc Scenery 200 [facility] [place] [address] 02/24/2024 2:00 PM EST Hem/Onc Treatment Hematology/Oncology Treatment, [place] 200 [facility] [phone] Hannah, Chair 3 Hem Onc Scenery 200 [facility] [place] [address] 03/28/2024 3:20 PM EST Office Visit [facility] Disorders Ctr [facility] 132 [facility] [place] [phone] Shanika Fitzgerald, DO 132 [facility] [place] [address] 04/03/2024 10:30 AM EST PulmDiagnostic Pulmonary Function Lab, [facility] 132 [facility] [place] [address] West, Pft [facility] [place] [address] 04/03/2024 11:00 AM EST PulmDiagnostic Pulmonary Function Lab, [facility] 132 [facility] [place] [address] West, Pft 132 [facility] [place] [address] 04/03/2024 1:40 PM EST Office Visit Pulmonary Medicine, [facility] 132 [facility] [place] [address] Devin Hodge MD [address] [facility] [place] [place] [address] 04/24/2024 6:00 PM EST Office Visit [facility] [address] [place] [address] Jairo Kingston MD [address] [place] [address] 06/27/2024 2:45 PM EDT Office Visit Hematology/Oncology [facility] 200 [facility] [place] [address] Michael Snyder MD 200 [facility] [place] [address] 07/30/2024 4:00 PM EDT Office Visit Nephrology, [facility] 200 [facility] [place] [address] Reggie Azevedo MD 200 [facility] [place] [address] Scheduled Procedures Name Priority Associated Diagnoses Date/Ti [...] 12/30/2023, 0 09/2023, 02/22/2023, Additional history exists Colonoscopy 01/02/2026 [...] this encounter Medical Devices Implanted Type Area Verification Rep Device Identifier Shelf Expiration Date Model / Serial / Lot Graft Hemasheild 20mm [id number] - [id number] Implanted:Qty: 1 on 01/13/2009 at [place] [facility] [place]/A: Abdomen MICROVASIVE [id number] / / [id number] Clip Resolution 360 Endo 235cm - [id number] Implanted:Qty: 1 on 12/10/2022 by Lacie England MD at OR [facility] [employer] : ENDOSCOPY [id number] 07/02/2025 [id number] / / [id number] Clip Resolution 360 Endo 235cm - [id number] Implanted:Qty: 1 on 12/10/2022 by Lacie England MD at OR [facility] [employer] : ENDOSCOPY [id number] 07/02/2025 [id number] / / [id number] Stent Biliary Adult L30mm Dia1 - [id number] Implanted:Qty: 1 on 10/26/2023 by Lacie England MD at OR [facility] COOK : JOHANNA COURTNEY [id number] 06/27/2026 [id number] / / [id number] documented as of this encounter Procedures Procedure [...] Dark Yellow 12/30/2023 10:25 PM EDT LABORATORY [facility] Clarity, Urine Clear Clear 12/30/2023 10:25 PM EDT LABORATORY C Glucose, Urine Negative Negative mg/dL 12/30/2023 10:25 PM EDT LABORATORY [facility] Bilirubin, Urine Negative Negative 12/30/2023 10:25 PM EDT LABORATORY [facility] Ketone, Urine Negative Negative mg/dL 12/30/2023 10:25 PM EDT LABORATORY [facility] Specific Lengby, Urine 1.012 1.003 - 1.030 12/30/2023 10:25 PM EDT LABORATORY C Blood, Urine Negative Negative 12/30/2023 10:25 PM EDT LABORATORY C pH, Urine 6.0 5.0 - 7.5 Units 12/30/2023 10:25 PM EDT LABORATORY [facility] Protein, Urine Trace(A) Negative mg/dL 12/30/2023 10:25 PM EDT LABORATORY [facility] Urobilinogen, Urine Normal Normal mg/dL 12/30/2023 10:25 [...] EDT Reggie Azevedo MD LAB URINE ORDERABLES LABORATORY [facility] [address] [place] [address] * (ABNORMAL) PROTEIN/ CREATININE RATIO, URINE (12/30/2023 3:54 PM EDT) Protein/ Creatinine Ratio, Urine 806(H) <150 mg/g 12/30/2023 11:45 PM EDT LABORATORY C Protein, Random Urine 29 mg/dL 12/30/2023 11:45 PM EDT LABORATORY [facility] Creatinine, Random Urine 36 mg/dL 12/30/2023 11:45 PM EDT LABORATORY [facility] Urine Urine specimen obtained by clean catch procedure / Unknown Non-blood Collection / Unknown 12/30/2023 3:54 PM EDT 12/30/2023 4:11 PM EDT Narrative LABORATORY [facility] - 12/30/2023 11:45 PM EDT Normal: <150 mg/g creatinine High: 150-500 mg/g creatinine Very High: >500 mg/g creatinine Nephrotic: >3000 mg/g creatinine Reggie Azevedo MD LAB URINE ORDERABLES Performing Organization Address [facility] Co de Phone Number LABORATORY GM [address] [place] [address] * (ABNORMAL) IMMUNOGLOBULIN QUANTITATIVE (12/30/2023 2:38 PM EDT) Pathologist [facility] IgG 979 700 - 1,600 mg/dL 12/31/2023 1:05 AM EDT LABORATORY [facility] IgA 264 70 - 400 mg/dL 12/31/2023 1:05 AM EDT LABORATORY [facility] IgM 247(H) 40 - 230 mg/dL 12/31/2023 1:05 AM EDT LABORATORY [facility] Blood Venous blood specimen / Unknown Venipuncture / Unknown 12/30/2023 2:38 PM EDT 12/30/2023 2:42 PM EDT Michael Snyder MD LAB BLOOD ORDERABLES Performing Organization Address [facility] de Phone Number LABORATORY [facility] [address] [place] [address] * (ABNORMAL) SERUM PROTEIN ELECTROPHORESIS REFLEX PROFILE (12/30/2023 2:38 PM EDT) [facility] Normal/Abnormal Abnormal(A) Normal 01/02/20 4:24 PM EDT [...] MD LAB BLOOD ORDERABLES Performing Organization Address [facility] de Phone Number LABORATORY [facility] [address] [place] [address] * (ABNORMAL) SERUM FREE LIGHT CHAINS (12/30/2023 2:38 PM EDT) [place] Free Light Chains, Serum 55.16(H) 3.30 - 19.40 mg/L 12/31/2023 3:20 PM EDT LABORATORY [facility] Lambda Free Light Chains, Serum 64.67(H) 5.71 - 26.30 mg/L 12/31/2023 3:20 PM EDT LABORATORY [facility] [place] Lambda Free Light Chains Ratio 0.85 0.26 - 1.65 12/31/2023 3:20 PM EDT LABORATORY [facility] Blood Venous blood specimen / Unknown Venipuncture / Unknown 12/30/2023 2:38 PM EDT 12/30/2023 2:42 PM EDT Michael Snyder MD LAB BLOOD ORDERABLES Performing Organization Address [facility] de Phone Number LABORATORY [address] [address] * MAGNESIUM (12/30/2023 2:38 PM EDT) Magnesium 1.9 1.5 - 2.6 mg/dL 12/31/2023 1:05 AM EDT LABORATORY [facility] Blood Venous blood specimen / Unknown Venipuncture / Unknown 12/30/2023 2:38 PM EDT 12/30/2023 2:42 PM EDT Reggie Azevedo MD LAB BLOOD ORDERABLES Performing Organization Address [facility]/ZIP Co de Phone Number LABORATORY [facility] [address] [place] [address] * 25-HYDROXY VITAMIN D (12/30/2023 2:38 PM EDT) 25-Hydroxy Vitamin D 35 >19 ng/mL 12/31/2023 1:39 AM EDT LABORATORY [facility] Blood Venous blood specimen / Unknown Venipuncture / Unknown 12/30/2023 2:38 PM EDT 12/30/2023 2:42 PM EDT Narrative LABORATORY [facility] - 12/31/2023 1:39 AM EDT Deficient: <20 ng/mL Insufficient: 20-29 ng/mL Recommended/Optimum:30-50 ng/mL Vitamin D intoxication is rare. If suspicious of Vitamin D toxicity, evaluation of serum Calcium and PTH is recommended. Reggie Azevedo MD LAB BLOOD ORDERABLES Performing Organization Address [facility] Co de Phone Number LABORATORY [facility] [address] [place] [address] * (ABNORMAL) PTH (12/30/2023 2:38 PM EDT) PTH 88(H) 15 - 65 pg/mL 12/31/2023 1:39 AM EDT LABORATORY [facility] Blood Venous blood specimen / Unknown Venipuncture / Unknown 12/30/2023 2:38 PM EDT 12/30/2023 2:42 PM EDT Reggie Azevedo MD LAB BLOOD ORDERABLES Performing Organization Address [facility] Co de Phone Number LABORATORY [facility] [address] [place] [address] * (ABNORMAL) IRON SCREEN, INCLUDING TIBC (12/30/2023 2:38 PM EDT) Iron 42(L) 45 - 176 ug/dL 12/30/2023 10:23 PM EDT LABORATORY [facility] Iron Binding Capacity 317 250 - 425 ug/dL 12/30/2023 10:23 PM EDT LABORATORY [facility] Transferrin Saturation Percent 13(L) 15 - 55 % 12/30/2023 10:23 PM EDT LABORATORY GM Blood Venous blood specimen / Unknown Venipuncture / Unknown 12/30/2023 2:38 PM EDT 12/30/2023 2:42 PM EDT Sheri Hanson YARA LAB BLOOD ORDER [place] LABORATORY [facility] [address] [place] [address] * FERRITIN (12/30/2023 2:38 PM EDT) Pathologist [facility] Ferritin 92 30 - 400 ng/mL 12/31/2023 1:08 AM EDT LABORATORY [facility] Blood Venous blood specimen / Unknown Venipuncture / Unknown 12/30/2023 2:38 PM EDT 12/30/2023 2:42 PM EDT Sheri Heredia Valentin [facility] LAB BLOOD ORDER [facility] LABORATORY [facility] [address] [place] [address] * (ABNORMAL) DIFFERENTIAL, AUTOMATED (12/30/2023 1:53 PM EDT) WBC 9.15 4.00 - 10.80 K/uL 12/30/2023 2:33 PM EDT LABORATORY [facility] 56-02 Neutrophils % 75.4(H) 40.0 - 75.0 % 12/30/2023 2:33 PM EDT LABORATORY [facility] 56-02 Lymphocytes % 12.1(L) 18.0 - 42.0 % 12/30/2023 2:33 PM EDT LABORATORY [place] 56-02 Monocytes % 11.5(H) 1.0 - 11.0 % 12/30/2023 2:33 PM EDT LABORATORY [place] 56-02 Eosinophils % 0.7 0.0 - 6.0 % 12/30/2023 2:33 PM EDT LABORATORY [place] 56-02 Basophils % 0.3 0.0 - 2.0 % 12/30/2023 2:33 PM EDT [facility] 56 Absolute Neutrophils 6.90 1.80 - 7.70 K/uL 12/30/2023 2:33 PM EDT [facility] 56 Absolute Lymphocytes 1.11 1.00 - 4.80 K/ul 12/30/2023 2:33 PM EDT [facility] 56 Absolute Monocytes 1.05 0.00 - 1.10 K/uL 12/30/2023 2:33 PM EDT [facility] 56 Absolute Eosinophils 0.06 0.00 - 0.70 K/uL 12/30/2023 2:33 PM EDT [facility] 56- Absolute Basophils 0.03 0.00 - 0.20 K/uL 12/30/2023 2:33 PM EDT [facility] 56 Blood Venous blood specimen / Unknown Venipuncture / Unknown 12/30/2023 1:53 PM EDT 12/30/2023 2:22 PM EDT Sheri LIV[facility] LAB BLOOD ORDER [facility] [address] [place] [address] * (ABNORMAL) CBC (12/30/2023 1:53 PM EDT) WBC 9.15 4.00 - 10.80 K/uL 12/30/2023 2:33 PM EDT [facility] 56 RBC 3.53 4.50 - 5.25 M/uL 12/30/2023 2:33 PM EDT [facility] 56 HGB 11.1(L) 14.0 - 16.8 g/dL 12/30/2023 2:33 PM EDT [facility] 56 HCT 35.2(L) 40.0 - 48.4 % 12/30/2023 2:33 PM EDT [facility] 56 MCV 99.7 82.0 - 99.5 fL 12/30/2023 2:33 PM EDT [facility] 56 MCH 31.4 27.0 - 34.0 pg 12/30/2023 2:[address]T [address] MCHC 31.5 32.0 - 36.0 g/dL 12/30/2023 2:33 PM EDT [address] RDW 17.0 11.5 - 15.5 % 12/30/2023 2:33 PM EDT [facility] 56 PLT 139(L) 140 - 400 K/uL 12/30/2023 2:33 PM EDT [address] MPV 10.9 6.6 - 11.1 fL 12/30/2023 2:33 PM EDT [facility] 56 Blood Venous blood specimen / Unknown Venipuncture / Unknown 12/30/2023 1:53 PM EDT 12/30/2023 2:22 PM EDT Sheri [facility] LAB BLOOD ORDER [facility] [address] [place] [address] * (ABNORMAL) RENAL FUNCTION PANEL (12/30/2023 1:53 PM EDT) BUN 60(H) 6 - 20 mg/dL 12/30/2023 2:43 PM EDT [address] CREATININE 2.0(H) 0.6 - 1.2 mg/dL 12/30/2023 2:43 PM EDT [address] EGFR 34(L) >=60 mL/min 12/30/2023 2:43 PM EDT [facility] 56 Comment:eGFR is calculated b ased on the CKD-EPI 2020 equation. SODIUM 139 135 - 146 mmol/L 12/30/2023 2:43 PM EDT [facility] 56 POTASSIUM 4.0 3.5 - 5.1 mmol/L 12/30/2023 2:43 PM EDT [facility] 56 CHLORIDE 104 98 - 107 mmol/L 12/30/2023 2:43 PM EDT [facility] 56 CO2 21(L) 22 - 32 mmol/L 12/30/2023 2:43 PM EDT [facility] 56 ANION GAP 14 7 - 15 mmol/L 12/30/2023 2:43 PM EDT [facility] 56- GLUCOSE 105 70 - 120 mg/dL 12/30/2023 2:43 PM EDT [facility] 56 CALCIUM 9.5 8.4 - 10.2 mg/dL 12/30/2023 2:43 PM EDT [facility] 56 Albumin 3.8 3.8 - 5.0 g/dL 12/30/2023 2:43 PM EDT [facility] 56 Phosphorus 3.2 2.5 - 4.8 mg/dL 12/30/2023 2:43 PM EDT [facility] 56 Blood Venous blood specimen / Unknown Venipuncture / Unknown 12/30/2023 1:53 PM EDT 12/30/2023 2:22 PM EDT Reggie Azevedo MD LAB BLOOD ORDERABLES [facility] [address] [place] [address] documented in this encounter Visit Diagnoses Diagnosis [...] Documents on File Type Date Recorded Patient Capacitor Pack Press Operator Expl anation Power of Conference Specialist 07/30/2022 POWER OF A TTORNEY * [...] and were consensually agreed upon. Care Teams Visitor Services Coordinator Relationship Specialty Start Date End Date Jairo Kingston MD [address] [place] [facility] [place] [address] PCP - General 12/21/05 documented as of this encounter
--- OUTSIDE RECORDS SUMMARY | 2024-04-26 10:55 | External Medical Summary | Summary of Care ---
Author Name Unknown Organization [facility] Address [address] [address] Phone [phone] Care Team Providers Care Mine Engineer Name Role Phone Jairo Kingston MD Primary Care Provider [phone]- [phone] Reason for Visit * Reason Onset Date Comments [facility]: Maintenance 01/04/2024 Encounter Details Date Type Department Care Team (Late st Contact Info) Description 01/04/2024 Telephone [facility], [facility] [address] [place] [address] Jenifer Linder, RN [address] [place] [address] [facility]: Maintenance Allergies Active Allergy Reactions Criticality Noted Date Comments Pavan Inhibitors Other (Please comment) 0 Hyperkalemia documented as of this encounter (statuses as of 01/04/2024) Medications Medication Sig Dispensed Refills Start Date [...] 0.1 % Nasal Solution (Astelin) Administer 1 Goodman into nostril in the morning and 1 Goodman before bedtime. 30 mL 1 3 Active [...] D, by GOLD 2017 classification ([facility]) Inhale 2 Puffs by mouth every 4 hours as needed for Wheezing. 54 g 6 4 Active Furosemide 20 MG Oral Tablet (Lasix) TAKE 1 TABLET BY MOUTH twice DAILY 180 Tablet 1 4 Active Doxycycline Hyclate 100 MG Oral TabletIndications:CO PD, group D, by GOLD 2017 classification ([facility]) Take 1 Tablet by mouth in the morning and 1 Tablet before bedtime. For as needed Rescue kit use when directed to take for COPD exacerbation. 14 Tablet 4 Active Additional Information Patient not taking.Reported on 12/13/2023 predniSONE 20 MG Oral Tablet (Deltasone)Indicatio ns:COPD, group D, by GOLD 2017 classification ([facility]) Take 2 Tablets by mouth in the [...] before bedtime. 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 I was hoping to hear back from pharmacy reimbursement to see if there is any financial help for this cost but have not heard anything. Pt does not want to pay for the 90 days at a time. Can you please send a script for a 60 day supply to [facility] Mail order? Pharmacy Reimbursement team - if you can help in any way, would be appreciated! Thank you! documented in this encounter Plan of Treatment Upcoming Encounters Date Type Department Care Team (Late st Contact Info) Description 01/09/2024 1:00 PM EDT Home Visit [facility] [place], [facility] [address] [address] Heath Zhang PA-C [address] [address] 01/18/2024 10:00 AM EDT [facility] Visit [facility] [address] [address] Jenifer Linder RN [address] [address] 01/19/2024 4:45 PM EDT Imaging Radiology [address] [address] 01/26/2024 9:50 AM EDT Office Visit Vascular Surgery, [address] [place] [address] Mikhail Suazo MD [address] [place] [address] 01/27/2024 2:00 PM EDT Hem/Onc Treatment Hematology/Oncology Treatment, [place] 200 [place] [phone] Hannah, Chair 2 Hem Onc Scenery 200 [place] [place] [address] 02/24/2024 2:00 PM EST Hem/Onc Treatment Hematology/Oncology Treatment, [place] [address] [facility], [place] [phone] Hannah, Chair 3 Hem Onc [facility] [address] [facility] [place], [place] [address] 03/28/2024 3:20 PM EST Office Visit Sleep Disorders Ctr [facility] 132 [facility] [place] [phone] Shanika Fitzgerald, 132 [facility] [place] [address] 04/03/2024 10:30 AM EST PulmDiagnostic Pulmonary Function Lab, [facility] 132 [facility] [place] [address] [address], [address] [place] [address] 04/03/2024 11:00 AM EST PulmDiagnostic Pulmonary Function Lab, [facility] 132 [facility] [place] [address] [address], [address] [place] [address] 04/03/2024 1:40 PM EST Office Visit Pulmonary Medicine, [facility] [address] [facility] [place] [address] Devin Hodge MD [address] [address] 04/24/2024 6:00 PM EST Office Visit [facility] [address] [place] [address] Jairo Kingston MD [address] [place] [address] 06/27/2024 2:45 PM EDT Office Visit Hematology/Oncology [facility] [address] [place] [place] [address] Michael Snyder MD [address] [place] [place] [address] 07/30/2024 4:00 PM EDT Office Visit Nephrology, [facility] [address] [place] [place] [address] Reggie Azevedo MD 200 [facility] [place] [address] Scheduled Procedures Name Priority Associated Diagnoses Date/Ti [...] this encounter Medical Devices Implanted Type Area Compugraph Operator Device Identifier Shelf Expiration Date Model / Serial / Lot Graft Hemasheild 20mm [id number] - [id number] Implanted:Qty: 1 on 01/13/2009 at OR [facility] N/A: Abdomen MICROVASIVE [id number] / / [id number] Clip Resolution 360 Endo 235cm - [id number] Implanted:Qty: 1 on 12/10/2022 by Lacie England MD at OR [facility] [employer] : ENDOSCOPY [id number] 07/02/2025 [id number] / / [id number] Clip Resolution 360 Endo 235cm - [id number] Implanted:Qty: 1 on 12/10/2022 by Lacie England MD at OR [facility] [employer] : ENDOSCOPY [id number] 07/02/2025 [id number] / / [id number] Stent Biliary Adult L30mm Dia1 - [id number] Implanted:Qty: 1 on 10/26/2023 by Lacie England MD at OR [facility] COOK : JOHANNA COURTNEY [id number] 06/27/2026 [id number] / / [id number] documented as of this encounter Visit Diagnoses Diagnosis Recurrent cerebrovascular accidents (CVAs) (HCC) documented in this encounter Advance Directives Documents on File Type Date Recorded Patient Chiller Operator Expl anation Power of Superintendent Marine 07/30/2022 POWER OF A TTORNEY * Full [...] and were consensually agreed upon. Care Teams Mine Engineer Relationship Specialty Start Date End Date Jairo Kingston MD [address] [place] [address] PCP - General 12/21/05 documented as of this encounter
--- OUTSIDE RECORDS SUMMARY | 2024-04-26 10:55 | External Medical Summary ---
Author Name Unknown Address Unknown Organization [id number]:LABORATORY [facility] [place] - [address] [place] [address] Laboratory Report Ordering Provider Test Date Status LOLLY ALEGRIA 01/13/2024 13:56:32 Final Observation Date Value Abnormality Reference (Units ) Status Iron 01/13/2024 13:56:32 65 45-176 (ug /dL) Final Iron-binding capacity 01/13/2024 13:56:32 298 250-425 (ug/dL) Final Transferrin Sat % 01/13/2024 13:56:32 22 15 -55 (%) Final Performing Location LABORATORY [facility] [place] - [address] [address]
--- OUTSIDE RECORDS SUMMARY | 2024-04-26 10:56 | External Medical Summary ---
Author Name Unknown Address Unknown Organization [id number]:LABORATORY [facility] [place] - [address] [place] [address] Laboratory Report Ordering Provider Test Date Status POOJA CAMERON 12/30/2023 14:38:14 Final Deficient: <20 ng/mL
Ins ufficient: 20-29 ng/mL
Recommended/Optimum:30-50 ng/mL

Vitamin D intoxication is rare. If suspicious of Vitamin D toxicity, evaluation of serum Calcium and PTH is recommended. Observation Date Value Abnormality Reference (Units ) Status 25-OH Vitamin D total 12/30/2023 14:38:14 35 >19 (ng/mL) Final Performing Location LABORATORY C - [address] [place] [address]
--- OUTSIDE RECORDS SUMMARY | 2024-04-26 10:56 | External Medical Summary ---
Author Name Unknown Address Unknown Organization [id number]:[facility]ORY [facility] [place] [address] [place] [address] Laboratory Report Ordering Provider Test Date Status POOJA CAMERON 12/30/2023 15:54:55 Final Normal: <150 mg/ g creatinine
High: 150-500 mg/g creatinine
Very High: >500 mg/g creatinine
Nephrotic: >3000 mg/g creatinine Observation Date Value Abnormality Reference (Units ) Status Protein/Creatinine [Ratio] in Urine 12/30/2023 15:54:55 806 Above high normal <150 (mg/g ) Final Protein, Urine 12/30/2023 15:54:55 29 (mg/dL) Final Creatinine, Urine 12/30/2023 15:54:55 36 (mg/dL) Final Performing Location [facility] [place] [address] [place] [address]
--- OUTSIDE RECORDS SUMMARY | 2024-04-26 10:56 | External Medical Summary ---
Author Name Unknown Address Unknown Organization [id number]:LABORATORY [facility] [place] - [address] [place] [address] Laboratory Report Ordering Provider Test Date Status MANFRED RODRIGUEZ 12/30/2023 14:38:14 Final Observation Date Value Abnormality Reference (Units ) Status IgG 12/30/2023 14:38:14 907 923-6961 ( mg/dL) Final IgA 12/30/2023 14:38:14 264 70-400 (mg /dL) Final IgM 12/30/2023 14:38:14 247 Above high normal 40 -230 (mg/dL) Final Performing Location LABORATORY C - [address] [place] [address]
--- OUTSIDE RECORDS SUMMARY | 2024-04-26 10:56 | External Medical Summary ---
Author Name Unknown Address Unknown Organization K09:LAB[place]ORY [place] [address] Laboratory Report Ordering Provider Test Date Status POOJA CAMERON 12/30/2023 13:53:06 Final Observation Date Value Abnormality Reference (Units ) Status BUN 12/30/2023 13:53:06 60 Above high normal 6-20 (mg/dL) Final Creatinine 12/30/2023 13:53:06 2.0 Above high normal 0.6-1.2 (mg/dL) Final Glomerular filtration rate/1.73 sq M.predicted [Volume Rate/Area] in Serum, Plasma or Blood by Creatinine-based formula (CKD-EPI) 12/30/2023 13:53:06 34 Below low normal >=60 (mL/min) Final eGFR is calculated based on the CKD-EPI 2020 equation. Sodium 12/30/2023 13:53:06 139 135-146 (m mol/L) Final Potassium 12/30/2023 13:53:06 4.0 3.5-5.1 (m mol/L) Final Cl 12/30/2023 13:53:06 104 98-107 (mm ol/L) Final CO2 12/30/2023 13:53:06 21 Below low normal 22- 32 (mmol/L) Final Anion gap 12/30/2023 13:53:06 14 7-15 (mmol /L) Final Glucose 12/30/2023 13:53:06 105 70-120 (mg /dL) Final Calcium 12/30/2023 13:53:06 9.5 8.4-10.2 ( mg/dL) Final Albumin 12/30/2023 13:53:06 3.8 3.8-5.0 (g /dL) Final Phosphate 12/30/2023 13:53:06 3.2 2.5-4.8 (m g/dL) Final Performing Location LABORATORY [place] [address]
--- OUTSIDE RECORDS SUMMARY | 2024-04-26 10:56 | External Medical Summary ---
Author Name Unknown Address Unknown Organization [id number]:[place] [facility] [place] [address] [place] [address] Laboratory Report Ordering Provider Test Date Status LOLLY ALEGRIA 12/30/2023 14:38:47 Final Observation Date Value Abnormality Reference (Units ) Status Iron 12/30/2023 14:38:47 42 Below low normal 45-176 (ug/dL) Final Iron-binding capacity 12/30/2023 14:38:47 317 250-425 (ug/dL) Final Transferrin Sat % 12/30/2023 14:38:47 13 Below low normal 15-55 (%) Final Performing Location LABORATORY C - [address] [address]
--- OUTSIDE RECORDS SUMMARY | 2024-04-26 10:56 | External Medical Summary ---
Author Name Unknown Address Unknown Organization K01:LABORATORY [facility] [place] - [address] [place] [address] Laboratory Report Ordering Provider Test Date Status RAKESHANTOINEROHITH 12/30/2023 14:38:14 Final Observation Date Value Abnormality Reference (Units ) Status Parathyrin.intact [Mass/volume] in Serum or Plasma 12/30/2023 14:38:14 88 Above high normal 15-65 (pg/mL) Final Performing Location LABORATORY [facility] [place] - [address] [place] [address]
--- OUTSIDE RECORDS SUMMARY | 2024-04-26 10:56 | External Medical Summary ---
Author Name Unknown Address Unknown Organization K09:LABORATORY [facility] [address] [place] [address] Laboratory Report Ordering Provider Test Date Status LOLLY ALEGRIA 12/30/2023 13:53:06 Final Observation Date Value Abnormality Reference (Units ) Status WBC, Total 12/30/2023 13:53:06 9.15 4.00-10.8 0 (K/uL) Final RBC 12/30/2023 13:53:06 3.53 4.50-5.25 (M/uL) Final Hemoglobin 12/30/2023 13:53:06 11.1 Below low normal 14 .0-16.8 (g/dL) Final HCT 12/30/2023 13:53:06 35.2 Below low normal 40. 0-48.4 (%) Final MCV 12/30/2023 13:53:06 99.7 82.0-99.5 (fL) Final MCH 12/30/2023 13:53:06 31.4 27.0-34.0 (pg) Final MCHC 12/30/2023 13:53:06 31.5 32.0-36.0 (g/dL) Final RDW 12/30/2023 13:53:06 17.0 11.5-15.5 (%) Final Platelets 12/30/2023 13:53:06 139 Below low normal 140 -400 (K/uL) Final MPV 12/30/2023 13:53:06 10.9 6.6-11.1 ( fL) Final Performing Location LABORATORY [facility] [address] [place] [address]
--- OUTSIDE RECORDS SUMMARY | 2024-04-26 10:56 | External Medical Summary ---
Author Name Unknown Address Unknown Organization K01:LABORATORY [facility] [place] - [address] [place] [address] Laboratory Report Ordering Provider Test Date Status LOLLY ALEGRIA 12/30/2023 14:38:47 Final Observation Date Value Abnormality Reference (Units ) Status Ferritin 12/30/2023 14:38:47 92 30-400 (ng /mL) Final Performing Location LABORATORY [facility] - [address] [place] [address]
--- OUTSIDE RECORDS SUMMARY | 2024-04-26 10:56 | External Medical Summary | Summary of Care ---
Author Name Unknown Organization [facility] Address [address] [facility] [facility] [address] Phone [phone] Care Team Providers Care Tape Duplicator Name Role Phone Jairo Kingston MD Primary Care Provider [phone] Reason for Visit * Reason Comments Infusion Venofer Encounter Details Date Type Department Care Team (Latest Contact Info) Description 12/30/2023 2:00 PM EDT Hem/Onc Treatment Hematology/Oncolog y Treatment, [address] [phone] Hannah, Chair 5 Hem On[address] [address] Iron deficiency anemia due to chronic blood loss*; CKD (chronic kidney disease) stage 4, GFR 15-29 ml/min (HCC); Monoclonal paraproteinemia Allergies Active Allergy Reactions Criticality Noted Date Comments Pavan Inhibitors Other (Please comment) 0 Hyperkalemia documented as of this encounter (statuses as of 12/30/2023) Medications Medication Sig Dispensed Refills Start Date [...] 0.1 % Nasal Solution (Astelin) Administer 1 Trade into nostril in the morning and 1 Trade before bedtime. 30 mL 1 01/11/2023 Active [...] morning and 1 Tablet before bedtime. Active Apixaban 2.5 MG Oral Tablet (Eliquis)Indications :Recurrent cerebrovascular accidents (CVAs) ([facility]) Take 1 Tablet by mouth in the morning and 1 Tablet before bedtime. 180 Tablet 1 11/23/2023 Active Albuterol Sulfate HFA 108 (90 Base) MCG/ACT Inhalation Aerosol SolutionIndications: COPD, group D, by GOLD 2017 classification ([facility]) Inhale 2 Puffs by mouth every 4 hours as needed for Wheezing. 54 g 6 11/23/2023 Active Furosemide 20 MG Oral Tablet (Lasix) TAKE 1 TABLET BY MOUTH twice DAILY 180 Tablet 1 12/08/2023 Active Doxycycline Hyclate 100 MG Oral TabletIndications:CO PD, group D, by GOLD 2017 classification ([facility]) Take 1 Tablet by mouth in the morning and 1 Tablet before bedtime. For as needed Rescue kit use when directed to take for COPD exacerbation. 14 Tablet 12/09/2023 Active Additional Information Patient not taking.Reported on 12/13/2023 predniSONE 20 MG Oral Tablet (Deltasone)Indicatio ns:COPD, group D, by GOLD 2017 classification ([facility]) Take 2 Tablets by mouth in the morning. USE NEEDED FOR EXACERBATION. COPD RESCUE KIT. 10 Tablet 12/09/2023 Active Metoprolol Tartrate 25 MG Oral Tablet (Lopressor) Take 1 Tablet by mouth in the morning and 1 Tablet before bedtime. 180 Tablet 3 12/22/2023 Active Hospital, Clinic, or Other Facility Administered Medication Ordered Dose Route Frequency Start Date End Date Status Albuterol Sulfate (Proventil) (2.5 MG/3ML) 0.083% inhalation solution 2.5 mgIndications:COPD, group D, by GOLD 2017 classification ([facility]) 2.5 mg NEBULIZER PRN 10/03/2023 10/02/2024 Acti ve documented as of this encounter (statuses as of 12/30/2023) Active Problems Problem Noted Date Diagnosed Date [...] 0 11/11/2022 Last Assessment & Plan: Allopurinol joint terminal attack controller No new attacks GINNY on CPAP 11/11/2022 [...] as of this encounter (statuses as of 12/30/2023) Resolved Problems Problem Noted Date Diagnosed Date [...] as of this encounter (statuses as of 12/30/2023) Immunizations Name Administration Dates Next Due COVID-19 [...] 1:00 PM EDT Home Visit [place] [facility] [address] [address] Heath Zhang PA-C [address] [address] 01/18/2024 10:00 AM EDT Home Visit [place] at [facility] [address] [address] Jenifer Linder RN [address] [place] [address] 01/19/2024 4:45 PM EDT Imaging Radiology [address] [place] [address] 01/26/2024 9:50 AM EDT Office Visit Vascular Surgery, [address] [place] [address] Mikhail Suazo MD [address] [facility] [place] [address] 01/27/2024 2:00 PM EDT Hem/Onc Treatment Hematology/Oncology Treatment, [place] [address] [place] [phone] Park, Chair 2 Hem Onc Scenery [address] [facility] [place], [place] [address] 02/24/2024 2:00 PM EST Hem/Onc Treatment Hematology/Oncology Treatment, [place] [address] [facility], [place] [phone] Hannah, Chair 3 Hem Onc [facility] 200 [facility] [place], [place] [address] 03/28/2024 3:20 PM EST Office Visit Sleep Disorders [facility] 132 [facility] [place] [phone] Shanika Fitzgerald DO 132 [facility] [place] [address] 04/03/2024 10:30 AM EST PulmDiagnostic Pulmonary Function Lab, [facility] 132 [facility] [place] [address] [place], [address] [place] [address] 04/03/2024 11:00 AM EST PulmDiagnostic Pulmonary Function Lab, [facility] 132 [facility] [place] [address] West, Pft 132 [facility] [place] [address] 04/03/2024 1:40 PM EST Office Visit Pulmonary Medicine, [facility] 132 [facility] [place] [address] Devin Hodge MD [address] [place] [address] 04/24/2024 6:00 PM EST Office Visit [facility] [address] [place] [phone] Jairo Kingston MD [address] [place] [address] 06/27/2024 2:45 PM EDT Office Visit Hematology/Oncology [facility] [address] [facility] [place] [phone] Michael Snyder MD 200 [place] [address] 07/30/2024 4:00 PM EDT Office Visit Nephrology, [facility] [address] [facility] [place] [address] Reggie Azevedo MD 200 [place] [address] Pending Results Name Type Priority Associated Diagnoses Date /Time FERRITIN Lab STAT Iron deficiency anemia due to chronic blood loss 12/30/2023 2:38 PM EDT IRON SCREEN, INCLUDING TIBC Lab STAT Iron deficiency anemia due to chronic blood loss 12/30/2023 2:38 PM EDT PTH Lab Routine CKD (chronic kidney disease) stage 4, GFR 15-29 ml/min ([facility]) 12/30/2023 2:38 PM EDT 25-HYDROXY VITAMIN D Lab Routine CKD (chronic kidney disease) stage 4, GFR 15-29 ml/min ([facility]) 12/30/2023 2:38 PM EDT MAGNESIUM Lab Routine CKD (chronic kidney disease) stage 4, GFR 15-29 ml/min ([facility]) 12/30/2023 2:38 PM EDT SERUM FREE LIGHT CHAINS Lab Routine Monoclonal paraproteinemia 12/30/2023 2:38 PM EDT SERUM PROTEIN ELECTROPHORESIS REFLEX PROFILE Lab Routine Monoclonal paraproteinemia 12/30/2023 2:38 PM EDT IMMUNOGLOBULIN QUANTITATIVE Lab Routine Monoclonal paraproteinemia 12/30/2023 2:38 PM EDT PROTEIN/ CREATININE RATIO, URINE Lab Routine CKD (chronic kidney disease) stage 4, GFR 15-29 ml/min (HCC) 12/30/2023 3:54 PM EDT URINALYSIS WITH MICROSCOPIC EXAM Lab Routine CKD (chronic kidney disease) stage 4, GFR 15-29 ml/min (HCC) 12/30/2023 3:54 PM EDT Scheduled Procedures Name Priority Associated Diagnoses Date/Ti me COLONOSCOPY FLEXIBLE PROXIMAL DIAGNOSTIC Recall History of colon polyps Health Maintenance Due Date Last Done Comments Adult Wellness Visit 2014 *COPD SEVERITY VERIFIED BY PFT 08/28/2022 Albumin/Creatinine Ratio 10/08/2022 10/08/2021 COVID-19 Vaccine ( season) 2023 02/19/2021, 06/19/2020, 05/22/2020 Influenza Vaccine (FLU shot) (#1) 2023 01/10/2023, 03/04/2022, 01/15/2021, Additional history exists PTH 02/23/2024 02/22/2023, 12/17, 06/03/2021, Additional history exists GFR 06/28/2024 12/30/2023, 10/16, 10/25/2023, Additional history exists Depression Screening 10/09/2024 10/10/2023 AAA Monitoring 10/20/2024 10/21/2023, 07/0 06/2023, 01/27/2023, Additional history exists O2 ASSESSMENT COMPLETED IN PAST YEAR FOR COPD 10/25/2024 10/26/2023 Nephrology Referral 12/12/2024 12/13/2023 Hgb 12/29/2024 12/30/2023, 11/16, 11/04/2023, Additional history exists Phosphate 12/29/2024 12/30/2023, 07/0 [...] this encounter Medical Devices Implanted Type Area Deposit Clerk Device Identifier Shelf Expiration Date Model / Serial / Lot Graft Hemasheild 20mm [id number] - [id number] Implanted:Qty: 1 on 01/13/2009 at [place] [facility] [place] N/A: Abdomen MICROVASIVE [id number] / / [id number] Clip Resolution 360 Endo 235cm - [id number] Implanted:Qty: 1 on 12/10/2022 by Lacie England MD at OR [facility] [employer] : ENDOSCOPY [id number] 07/02/2025 [id number] / / [id number] Clip Resolution 360 Endo 235cm - [id number] Implanted:Qty: 1 on 12/10/2022 by Lacie England MD at OR [facility] [employer] : ENDOSCOPY [id number] 07/02/2025 [id number] / / [id number] Stent Biliary Adult L30mm Dia1 - [id number] Implanted:Qty: 1 on 10/26/2023 by Lacie England MD at OR [facility] COOK : JOHANNA COURTNEY [id number] 06/27/2026 [id number] / / [id number] documented as of this encounter Procedures Procedure Name Priority Date/Time Associated Diagnosis Comments DIFFERENTIAL, AUTOMATED STAT 12/30/2023 1:53 PM EDT Iron deficiency anemia due to chronic blood loss RENAL FUNCTION PANEL Routine 12/30/2023 1:53 PM EDT CKD (chronic kidney disease) stage 4, GFR 15-29 ml/min ([facility]) CBC STAT 12/30/2023 1:53 PM EDT Iron deficiency anemia due to chronic blood loss CBC STAT 12/30/2023 1:53 PM EDT Iron deficiency anemia due to chronic blood loss documented in this encounter Results * (ABNORMAL) DIFFERENTIAL, AUTOMATED (12/30/2023 1:53 PM EDT) Pathologist [facility] WBC 9.15 4.00 - 10.80 K/uL 12/30/2023 2:33 PM EDT LAB[facility]ATORY [place] 56-02 Neutrophils % 75.4(H) 40.0 - 75.0 % 12/30/2023 2:33 PM EDT LAB[facility]ATORY [place] 56-02 Lymphocytes % 12.1(L) 18.0 - 42.0 % 12/30/2023 2:33 PM EDT [facility] 56-02 Monocytes % 11.5(H) 1.0 - 11.0 % 12/30/2023 2:33 PM EDT LABORATORY [place] 56-02 Eosinophils % 0.7 0.0 - 6.0 % 12/30/2023 2:33 PM EDT [facility] 56-02 Basophils % 0.3 0.0 - 2.0 % 12/30/2023 2:33 PM EDT [facility] 56-02 Absolute Neutrophils 6.90 1.80 - 7.70 K/uL 12/30/2023 2:33 PM EDT [facility] 56-02 Absolute Lymphocytes 1.11 1.00 - 4.80 K/ul 12/30/2023 2:33 PM EDT [facility] 56-02 Absolute Monocytes 1.05 0.00 - 1.10 K/uL 12/30/2023 2:33 PM EDT [facility] 56-02 Absolute Eosinophils 0.06 0.00 - 0.70 K/uL 12/30/2023 2:33 PM EDT [facility] 56-02 Absolute Basophils 0.03 0.00 - 0.20 K/uL 12/30/2023 2:33 PM EDT [facility] 56-02 Blood Venous blood specimen / Unknown Venipuncture / Unknown 12/30/2023 1:53 PM EDT 12/30/2023 2:22 PM EDT Sheri LIVINGSTON LAB BLOOD ORDER [place] [facility] [address] [place], [place] [id number] * (ABNORMAL) CBC (12/30/2023 1:53 PM EDT) WBC 9.15 4.00 - 10.80 K/uL 12/30/2023 2:[address]T [address] RBC 3.53 4.50 - 5.25 M/uL 12/30/2023 2:33 PM EDT [address] HGB 11.1(L) 14.0 - 16.8 g/dL 12/30/2023 2:33 PM EDT [facility] 56 HCT 35.2(L) 40.0 - 48.4 % 12/30/2023 2:33 PM EDT [address] MCV 99.7 82.0 - 99.5 fL 12/30/2023 2:33 PM EDT [address] MCH 31.4 27.0 - 34.0 pg 12/30/2023 2:33 PM EDT [facility] 56 MCHC 31.5 32.0 - 36.0 g/dL 12/30/2023 2:33 PM EDT [facility] 56 RDW 17.0 11.5 - 15.5 % 12/30/2023 2:33 PM EDT [facility] 56 PLT 139(L) 140 - 400 K/uL 12/30/2023 2:33 PM EDT [facility] 56 MPV 10.9 6.6 - 11.1 fL 12/30/2023 2:33 PM EDT [facility] 56 Blood Venous blood specimen / Unknown Venipuncture / Unknown 12/30/2023 1:53 PM EDT 12/30/2023 2:22 PM EDT Sheri LIVINGSTON LAB BLOOD ORDER [place] [facility] [address] [place], [place] [id number] * (ABNORMAL) RENAL FUNCTION PANEL (12/30/2023 1:53 PM EDT) BUN 60(H) 6 - 20 mg/dL 12/30/2023 2:43 PM EDT [place] [address] Creatinine 2.0(H) 0.6 - 1.2 mg/dL 12/30/2023 2:43 PM EDT [address] Estimated Glomerular Filtration Rate 34(L) >=60 mL/min 12/30/2023 2:43 PM EDT [address] Comment:eGFR is calculated b ased on the CKD-EPI 2020 equation. Sodium 139 135 - 146 mmol/L 12/30/2023 2:43 PM EDT [address] Potassium 4.0 3.5 - 5.1 mmol/L 12/30/2023 2:43 PM EDT [address] Chloride 104 98 - 107 mmol/L 12/30/2023 2:43 PM EDT [address] CO2 21(L) 22 - 32 mmol/L 12/30/2023 2:43 PM EDT [address] Anion Gap 14 7 - 15 mmol/L 12/30/2023 2:43 PM EDT [address] Glucose 105 70 - 120 mg/dL 12/30/2023 2:43 PM EDT [address] Calcium 9.5 8.4 - 10.2 mg/dL 12/30/2023 2:43 PM EDT [address] Albumin 3.8 3.8 - 5.0 g/dL 12/30/2023 2:43 PM EDT [address] Phosphorus 3.2 2.5 - 4.8 mg/dL 12/30/2023 2:43 PM EDT [facility] 56 Blood Venous blood specimen / Unknown Venipuncture / Unknown 12/30/2023 1:53 PM EDT 12/30/2023 2:22 PM EDT Reggie Azevedo MD LAB BLOOD ORDERABLES [facility] 56-[address] [place] [address] documented in this encounter Visit Diagnoses Diagnosis Iron deficiency anemia due to chronic blood loss- Primary Iron 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 (chronic) CKD (chronic kidney disease) stage 4, GFR 15-29 ml/min (HCC) Chronic kidney disease, Stage IV (severe) Monoclonal paraproteinemia documented in this encounter Administered Medications Active Administered Medications - up to 3 most recent administrations Medication Order MAR Action Action Date Dose Rate Site diphenhydrAMINE (Benadryl) inj 50 mg 50 mg, IV Push, ONCE PRN Other, Hypersensitivity Reaction, Starting on Tue12/30/23 at 1351, Until 12/31/23 at 1350, For 24 hours EPINEPHrine 1 MG/ML inj 0.3 mg 0.3 mg, Intramuscular, ONCE PRN Other, Hypersensitivity Reaction or Anaphylaxis, Starting on Tue12/30/23 at 1351, Until 12/31/23 at 1350, For 24 hours hEParin 100 UNIT/ML Lock Flush inj 500 Units 500 Units (5 mL), IV Lock, PRN Other, IV Flush, Starting on Tue12/30/23 at 1351, Until 12/31/23 at 1350, For 24 hours, Do not flush if lock, PICC, or central line not in place; IV infusing or unable to flush. Hydrocortisone Sod Suc (PF) (Solu-Cortef) inj 100 mg 100 mg, IV Push, ONCE PRN Other, Hypersensitivity Reaction, Starting on Tue12/30/23 at 1351, Until 12/31/23 at 1350, For 24 hours NSS infusion 500 mL, Intravenous, at 50 mL/hr, CONTINUOUS, Starting on Tue12/30/23 at 1500, Until 12/31/23 at 0059 Start Infusion 12/30/2023 2:07 PM EDT 500 mL 50 mL/hr oxygen GAS Inhalation, OXYGEN, First dose on Tue12/30/23 at 1600, Until Discontinued, Device/Managed by: Low [...] Push, PRN Other, IV Flush, Starting on Tue12/30/23 at 1351, Until 12/31/23 at 1350, For 24 hours, Do not [...] 2:07 PM EDT 300 mg 180 mL/hr documented in this encounter Advance Directives Documents on File Type Date Recorded Patient Customs Agent Expl anation Power of Full Time Babysitter 07/30/2022 POWER OF A TTORNEY * Full [...] and were consensually agreed upon. Care Teams Tape Duplicator Relationship Specialty Start Date End Date Jairo Kingston MD [address] [place] [address] PCP - General 12/21/05 documented as of this encounter
--- OUTSIDE RECORDS SUMMARY | 2024-04-26 10:56 | External Medical Summary ---
Author Name Unknown Address Unknown Organization K01:[facility] [place] [facility] [address] [facility] [address] Laboratory Report Ordering Provider Test Date Status MANFRED RODRIGUEZ 12/30/2023 14:38:14 Final Observation Date Value Abnormality Reference (Units ) Status Combs light chains, Free, Serum 12/30/2023 14:38:14 55.16 Above high normal 3.30-19.40 (mg/L) Final Lambda light chains, free, Serum 12/30/2023 14:38:14 64.67 Above high normal 5.71-26.30 (mg/L) Final KAPPA LAMBDA FLC RATIO 12/30/2023 14:38:14 0.85 0.26-1.65 Final Performing Location [facility] [place] [facility] [address] [facility] [address]
--- OUTSIDE RECORDS SUMMARY | 2024-04-26 10:56 | External Medical Summary ---
Author Name Unknown Address Unknown Organization K01:LAB[facility]ATORY [facility] - [address] [facility] [address] [place] [address] Laboratory Report Ordering Provider Test Date Status POOJA CAMERON 12/30/2023 14:38:14 Final Observation Date Value Abnormality Reference (Units ) Status Magnesium 12/30/2023 14:38:14 1.9 1.5-2.6 (m g/dL) Final Performing Location LAB[facility]AT[facility] - [address] [place] [address]
--- OUTSIDE RECORDS SUMMARY | 2024-04-26 10:56 | External Medical Summary | Summary of Care ---
Author Name Unknown Organization [facility] Address [address] [place] [place] [address] Phone [phone] Care Team Providers Care Preschool Assistant Director Name Role Phone Jairo Kingston MD Primary Care Provider [phone] Reason for Visit * Reason Comments IV Therapy Venofer Encounter Details Date Type Department Care Team (Latest Contact Info) Description 12/02/2023 2:00 PM EDT Hem/Onc Treatment Hematology/Oncology Treatment, [address] [address] Hannah, Chair 9 Hem Onc [address] [address] Iron deficiency anemia due to chronic blood loss*; Chronic kidney disease, stage 4 (severe) (HCC) Allergies Active Allergy Reactions Criticality Noted Date Comments Pavan Inhibitors Other (Please comment) 0 Hyperkalemia documented as of this encounter (statuses as of 12/24/2023) Medications Medication Sig Dispensed Refills Start Date [...] 0.1 % Nasal Solution (Astelin) Administer 1 [place] into nostril in the morning and 1 [place] before bedtime. 30 mL 1 3 Active [...] (Eliquis)Indications :Recurrent cerebrovascular accidents (CVAs) ([facility]) Take 1 Tablet by mouth in the morning and 1 Tablet before bedtime. 180 Tablet 1 4 Active Albuterol Sulfate HFA 108 (90 Base) MCG/ACT Inhalation Aerosol SolutionIndications: COPD, group D, by GOLD 2017 classification ([facility]) Inhale 2 Puffs by mouth every 4 hours as needed for Wheezing. 54 g 6 4 Active Furosemide 20 MG Oral Tablet (Lasix) TAKE 1 TABLET BY MOUTH twice DAILY 90 Tablet 3 3 12/08/19 24 Discontinu ed(Refill) Metoprolol Tartrate 25 MG Oral Tablet (Lopressor) Take 1 Tablet by mouth in the morning and 1 Tablet before bedtime. 180 Tablet 3 4 12/22/19 24 Discontinu ed(Refill) Doxycycline Hyclate 100 MG Oral Tablet Take 1 Tablet by mouth in the morning and 1 Tablet before bedtime. For as needed Rescue kit use when directed to take for COPD exacerbation. 14 Tablet 4 12/09/19 24 Discontinu ed(Refill) Hospital, Clinic, or Other Facility Administered Medication Ordered Dose Route Frequency Start Date End Date Status Albuterol Sulfate (Proventil) (2.5 MG/3ML) 0.083% inhalation solution 2.5 mgIndications:COPD, group D, by GOLD 2017 classification ([facility]) 2.5 mg NEBULIZER PRN 10/03/2023 10/02/2024 Acti ve documented as of this encounter (statuses as of 12/24/2023) Active Problems Problem Noted Date Diagnosed Date [...] 0 11/11/2022 Last Assessment & Plan: Allopurinol alf No new attacks GINNY on CPAP 11/11/2022 [...] as of this encounter (statuses as of 12/24/2023) Resolved Problems Problem Noted Date Diagnosed Date [...] as of this encounter (statuses as of 12/24/2023) Immunizations Name Administration Dates Next Due COVID-19 [...] the money to buy more. Never true 10/10/19 24 Within the past 12 months, t he food you bought just didn't last and you didn't have money to get more. Never true 10/10/2023 Childcare Answer Date Recorded Do you feel overwhelmed with taking care of a child, family member or friend? No 10/10/2023 Does your family need help f inding childcare? (Household - for ages 0-17 years) Not on file 10/10/2023 Clothing Answer Date Recorded Have you been unable to get clothing when it was really needed? No 10/10/2023 Is your family able to get c lothes or diapers when needed? (Household - for ages 0-17 years) Not on file 10/10/2023 Personal Safety Answer Date Recorded Do you feel unsafe or have concerns for your saf ety? No 10/10/2023 Do you have concerns for you r family's safety? (Household - for ages 0-17 years) Not on file 10/10/2023 Utilities Answer Date Recorded Do you have trouble paying y our heating, water, or electric bill? No 10/10/2023 Is your family able to pay t he heat, water, or electric bill? (Household - for ages 0-17 years) Not on file 10/10/2023 Does your family have access to good internet? (Household - for ages 0-17 years) Not on file 10/10/2023 Employment Status Answer Date Recorded Are you unemployed or without regular income? No 10/10/2023 Does the household have a re gular source of income? (Household - for ages 0-17 years) Not on file 10/10/2023 Social Connections Answer Date Recorded How often do you feel lonely or isolated from th ose around you? Never 10/10/2023 Financial Resource Strain Answer Date R ecorded Do you have any trouble payi ng for your medications, or do you think you might in the future? No 10/10/2023 Does your family have troubl e paying for medicine? (Household - for ages 0-17 years) Not on file 10/10/2023 Transportation Needs Answer Date Record ed Do you have trouble getting a ride to medical visits or work? (Adult - for ages 18 years and over) Not on file 10/10/2023 Does your family have a hard time getting a ride to doctors visits? (Household - for ages 0-17 years) Not on file 10/10/2023 Has lack of transportation k ept you from medical appointments, meetings, work, or from getting things needed for daily living? Check all that apply. No 10/10/2023 Do you (or your family) have trouble finding or paying for a ride (transportation)? (Household - for ages 0-17 years) Not on file 10/10/2023 Housing Stability Answer Date Recorded Do you currently live in a s helter or have no steady place to sleep at night? No 10/10/2023 Do you think you are at risk of becoming homeless? (Adult - for ages 18 years and over) Not on file 10/10/2023 Does your family worry about paying for your home or becoming homeless? (Household - for ages 0-17 years) Not on file 0 10/10/2023 Are you homeless or worried that you might be in the future? No 10/10/2023 Are you (or your family) tunde eless or worried that you might be in the future? (Household - for ages 0-17 years) Not on file Food Insecurity Answer Date Recorded Do you need food for this week? No 10/10/2023 Are you able to get enough f ood for your family? (Household - for ages 0-17 years) Not on file 10/10/2023 Does your family need food t his week? (Household - for ages 0-17 years) Not on file 10/10/2023 Do you always have enough fo od for your family? (Household - for ages 0-17 years) Not on file 10/10/2023 Sex and Gender Information Value Date Recorded Sex Assigned at Male 08/02/2018 7:29 AM EDT Gender Identity Male 08/02/2018 7:29 AM EDT Sexual Orientation Straight 08/02/2018 7: 29 AM EDT Job Start Date Occupation Industry Not on file Not on file Not on file documented as of this encounter Last Filed Vital Signs Vital Sign Reading Time Taken Comments Blood Pressure 121/74 12/02/2023 2:16 PM EDT Pulse 79 12/02/2023 2:16 PM EDT Temperature - - Respiratory Rate 16 12/02/2023 2:16 PM EDT Oxygen Saturation 88% 12/02/2023 2:16 PM EDT Inhaled Oxygen Concentration - - [...] as of this encounter Nursing Notes * Lisa Vides LPN - 12/02/2023 2:17 PM EDT Patient arrived Chair 12 for IV therapy Venofer. Vital signs are stable. Pulse ox is 88% patient ezequiel own home oxygen. IV access successful at the left forearm region; IV line flushed with ease; positive blood return; labs drawn after 10ml wasted; IV fluids connected and infusing. Call riggins withinreach. Patient instructed on use of heat and massage functions where applicable. Patient shown how to operate the heat function of the chair and to alert nursing staff if the chair feels too warm. Patient instructed on the risk of potential watson while using the heat function. 15:00 IV line accidentally pulled from site by patient. IV fluids stopped; patient cleaned and bandaged. 15:05pm IV access successful at the right forearm vein. IV line flushed with ease; positive blood return; IV fluids reconnected and infusing. 16:00 - Patient completed IV therapy Venofer. IV access discontinued; site cleaned and bandaged. Patient will return on 12/29. Patient discharged in stable condition. documented in this encounter Plan of Treatment Upcoming Encounters Date Type Department Care Team (Late st Contact Info) Description 12/30/2023 2:00 PM EDT Hem/Onc Treatment Hematology/Oncology Treatment, [place] [address] [place] [address] Hannah, Chair 5 Hem Onc Scenery [address] [place] [address] 01/09/2024 1:00 PM EDT Home Visit [place] [facility] [address] [address] Heath Zhang PA-C [address] [address] 01/18/2024 10:00 AM EDT Home Visit [place], [facility] [address] [address] Jenifer Linder RN [address] [address] 01/19/2024 4:45 PM EDT Imaging Radiology [address] [facility] [place], [place] [address] 01/26/2024 9:50 AM EDT Office Visit Vascular Surgery, [address] [address] Mikhail Suazo MD [address] [facility] [place], [place] [address] 03/28/2024 3:20 PM EST Office Visit Sleep Disorders Ctr [facility] [address] [place] [phone] Shanika Fitzgerald, [address] [facility] [place], [place] [address] 04/03/2024 10:30 AM EST PulmDiagnostic Pulmonary Function Lab, [facility] [address] [facility] [place] [address] [address], [address] [facility] [place] [address] 04/03/2024 11:00 AM EST PulmDiagnostic Pulmonary Function Lab, [facility] 132 [facility] [place] [address] [place], [address] [facility] [place] [address] 04/03/2024 1:40 PM EST Office Visit Pulmonary Medicine, [facility] [address] [facility] [place] [address] Devin Hodge MD [address] [place] [address] 04/24/2024 6:00 PM EST Office Visit [address], [place] [phone] Jairo Kingston MD [address] [place] [address] 06/27/2024 2:45 PM EDT Office Visit Hematology/Oncology [facility] [place] [address] [facility] [place] [phone] Michael Snyder MD [address] [facility] [place] [address] 07/30/2024 4:00 PM EDT Office Visit Nephrology, [facility] [address] [facility] [place], [place] [address] Reggie Azevedo MD [address] [facility] [place] [address] Scheduled Procedures Name Priority Associated Diagnoses Date/Ti [...] 02/22/2023, 12/17, 06/03/2021, Additional history exists GFR 04/27/2024 10/26/2023, 07/0 12/2023, 10/24/2023, Additional history exists Depression Screening 10/09/2024 10/10/2023 AAA Monitoring 10/20/2024 10/21/2023, 070 06/2023, 01/27/2023, Additional history exists Phosphate 10/21/2024 10/22/2023, 110 10/2022, 12/09/2022, Additional history exists O2 ASSESSMENT COMPLETED IN PAST YEAR FOR COPD 10/25/2024 10/26/2023 Hgb 12/01/2024 12/02/2023, 10/16, 10/26/2023, Additional history exists Nephrology Referral 12/12/2024 12/13/2023 Colonoscopy 01/02/2026 01/02/2021, 07/17, 08/02/2017, Additional history [...] this encounter Medical Devices Implanted Type Area Power Washer Device Identifier Shelf Expiration Date Model / Serial / Lot Graft Hemasheild 20mm [id number] - [id number] Implanted:Qty: 1 on 01/13/2009 at [place] [facility] [place]A: Abdomen MICROVASIVE [id number] / / [id number] Clip Resolution 360 Endo 235cm - [id number] Implanted:Qty: 1 on 12/10/2022 by Lacie England MD at OR [facility] [employer] : ENDOSCOPY [id number] 07/02/2025 [id number] / / [id number] Clip Resolution 360 Endo 235cm - [id number] Implanted:Qty: 1 on 12/10/2022 by Lacie England MD at OR [facility] [employer] : ENDOSCOPY [id number] 07/02/2025 [id number] / / [id number] Stent Biliary Adult L30mm Dia1 - [id number] Implanted:Qty: 1 on 10/26/2023 by Lacie England MD at OR [facility] : JOHANNA COURTNEY [id number] 06/27/2026 [id number] / / [id number] documented as of this encounter Procedures Procedure Name Priority Date/Time Associated Diagnosis Comments DIFFERENTIAL, AUTOMATED STAT 12/02/2023 1:54 PM EDT Iron deficiency anemia due to chronic blood loss IRON SCREEN, INCLUDING TIBC STAT 12/02/2023 1:54 PM EDT Iron deficiency anemia due to chronic blood loss CBC STAT 12/02/2023 1:54 PM EDT Iron deficiency anemia due to chronic blood loss CBC STAT 12/02/2023 1:54 PM EDT Iron deficiency anemia due to chronic blood loss FERRITIN STAT 12/02/2023 1:54 PM EDT Iron deficiency anemia due to chronic blood loss documented in this encounter Results * (ABNORMAL) DIFFERENTIAL, AUTOMATED (12/02/2023 1:54 PM EDT) WBC 7.17 4.00 - 10.80 K/uL 12/02/2023 2:18 PM EDT [facility] 56-02 Neutrophils % 62.8 40.0 - 75.0 % 12/02/2023 2:18 PM EDT [facility] 56-02 Lymphocytes % 14.9(L) 18.0 - 42.0 % 12/02/2023 2:18 PM EDT [facility] 56-02 Monocytes % 14.1(H) 1.0 - 11.0 % 12/02/2023 2:18 PM EDT [facility] 56-02 Eosinophils % 7.8(H) 0.0 - 6.0 % 12/02/2023 2:18 PM EDT [facility] 56-02 Basophils % 0.4 0.0 - 2.0 % 12/02/2023 2:18 PM EDT [facility] 56-02 Absolute Neutrophils 4.50 1.80 - 7.70 K/uL 12/02/2023 2:18 PM EDT [facility] 56-02 Absolute Lymphocytes 1.07 1.00 - 4.80 K/ul 12/02/2023 2:18 PM EDT [facility] 56 Absolute Monocytes 1.01 0.00 - 1.10 K/uL 12/02/2023 2:18 PM EDT [facility] 56 Absolute Eosinophils 0.56 0.00 - 0.70 K/uL 12/02/2023 2:18 PM EDT [facility] 56 Absolute Basophils 0.03 0.00 - 0.20 K/uL 12/02/2023 2:18 PM EDT [facility] 56 Blood Venous blood specimen / Unknown Venipuncture / Unknown 12/02/2023 1:54 PM EDT 12/02/2023 2:15 PM EDT [facility] [address] [place] [address] * (ABNORMAL) CBC (12/02/2023 1:54 PM EDT) WBC 7.17 4.00 - 10.80 K/uL 12/02/2023 2:18 PM EDT [address] RBC 3.29 4.50 - 5.25 M/uL 12/02/2023 2:18 PM EDT [address] HGB 10.7(L) 14.0 - 16.8 g/dL 12/02/2023 2:18 PM EDT [facility] 56 HCT 33.6(L) 40.0 - 48.4 % 12/02/2023 2:18 PM EDT [facility] 56 MCV 102.1 82.0 - 99.5 fL 12/02/2023 2:18 PM EDT [facility] 56 MCH 32.5 27.0 - 34.0 pg 12/02/2023 2:18 PM EDT [facility] 56 MCHC 31.8 32.0 - 36.0 g/dL 12/02/2023 2:18 PM EDT [facility] 56 RDW 16.8 11.5 - 15.5 % 12/02/2023 2:18 PM EDT [facility] 56-02 PLT 198 140 - 400 K/uL 12/02/2023 2:18 PM EDT [facility] 56-02 MPV 10.3 6.6 - 11.1 fL 12/02/2023 2:18 PM EDT [facility] 56-02 Blood Venous blood specimen / Unknown Venipuncture / Unknown 12/02/2023 1:54 PM EDT 12/02/2023 2:15 PM EDT [facility] 56-[address] [place] [address] * (ABNORMAL) IRON SCREEN, INCLUDING TIBC (12/02/2023 1:54 PM EDT) Iron 28(L) 45 - 176 ug/dL 12/02/2023 11:55 PM EDT [facility] Iron Binding Capacity 309 250 - 425 ug/dL 12/02/2023 11:55 PM EDT [facility] Transferrin Saturation Percent 9(L) 15 - 55 % 12/02/2023 11:55 PM EDT [facility] Blood Venous blood specimen / Unknown Venipuncture / Unknown 12/02/2023 1:54 PM EDT 12/02/2023 2:15 PM EDT [facility] B[facility]OD [facility] [address] [place] [address] * FERRITIN (12/02/2023 1:54 PM EDT) Ferritin 110 30 - 400 ng/mL 12/03/2023 1:38 AM EDT [facility] Blood Venous blood specimen / Unknown Venipuncture / Unknown 12/02/2023 1:54 PM EDT 12/02/2023 2:15 PM EDT [facility] [address] [place] [address] documented in this encounter Visit Diagnoses Diagnosis Iron deficiency anemia due to chronic blood loss- Primary Iron 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 (chronic) Chronic kidney disease, stage 4 (severe) (HCC) documented in this encounter Administered Medications Inactive Administered Medications - up to 3 most recent administrations Medication Order MAR Action Action Date Dose Rate Site Iron Sucrose (Venofer) 300 mg in NSS 250 mL ivpb 300 mg, IV Piggyback, ONCE, 1 dose, On Tue12/02/23 at 1530, Administer over 90 Minutes Start Infusion 12/02/2023 2:09 PM EDT 300 mg 180 mL/hr NSS infusion 500 mL, Intravenous, at 50 mL/hr, CONTINUOUS, Starting on Tue12/02/23 at 1500, Until Tue12/02/23 at 2002 Start Infusion 12/02/2023 2:07 PM EDT 500 mL 50 mL/hr documented in this encounter Advance Directives Documents on File Type Date Recorded Patient Director Search Marketing Strategies Expl anation Power of Financial Sales Professional 07/30/2022 POWER OF A TTORNEY * [...] and were consensually agreed upon. Care Teams Preschool Assistant Director Relationship Specialty Start Date End Date Jairo Kingston MD [address] [place] [address] PCP - General 12/21/05 documented as of this encounter
--- OUTSIDE RECORDS SUMMARY | 2024-04-26 10:56 | External Medical Summary ---
Author Name Unknown Address Unknown Organization [id number]:[facility]ATORY [facility] - [address] [place] [address] Laboratory Report Ordering Provider Test Date Status POOJA CAMERON 12/30/2023 15:54:55 Final Observation Date Value Abnormality Reference (Units ) Status Color of Urine by Auto 12/30/2023 15:54:55 Colorless Colorless, Light Yellow, Yellow, Dark Yellow Final Clarity, Urine 12/30/2023 15:54:55 Clear Clear Final Glucose [Mass/volume] in Urine by Automated test strip 12/30/2023 15:54:55 Negative Negative (mg/dL) Final Bilirubin.total [Presence] in Urine by Automated test strip 12/30/2023 15:54:55 Negative Negative Final Ketones [Mass/volume] in Urine by Automated test strip 12/30/2023 15:54:55 Negative Negative (mg/dL) Final Specific gravity, Urine 12/30/2023 15:54:55 1.012 1.003-1.030 Final Hemoglobin [Presence] in Urine by Automated test strip 12/30/2023 15:54:55 Negative Negative Final pH, Urine 12/30/2023 15:54:55 6.0 5.0-7.5 (Units) Final Protein [Mass/volume] in Urine by Automated test strip 12/30/2023 15:54:55 Trace Abnormal Negative (mg/dL) Final Urobilinogen [Mass/volume] in Urine by Automated test strip 12/30/2023 15:54:55 Normal Normal (mg/dL) Final Nitrite [Presence] in Urine by Automated test strip 12/30/2023 15:54:55 Negative Negative Final Leukocyte esterase [Presence] in Urine by Automated test strip 12/30/2023 15:54:55 Negative Negative Final RBC, Urine 12/30/2023 15:54:55 0-2 0-2 (/HPF) Final WBC, Urine 12/30/2023 15:54:55 0-2 0-2 (/HPF) Final Bacteria [#/area] in Urine sediment by Microscopy high power field 12/30/2023 15:54:55 0-25 0-25 (/HPF) Final Performing Location LABORATORY [facility] - [facility] [address] [facility] [address]
--- OUTSIDE RECORDS SUMMARY | 2024-04-26 10:56 | External Medical Summary ---
Author Name Unknown Address Unknown Organization [id number]:[facility] [place] [address] Laboratory Report Ordering Provider Test Date Status LOLLY ALEGRIA 12/30/2023 13:53:06 Final Observation Date Value Abnormality Reference (Units ) Status SYNC LEUKOCYTES IN BLOOD BY AUTOMATED COUNT 12/30/2023 13:53:06 9.15 4.00-10.80 (K/uL) Final Segs 12/30/2023 13:53:06 75.4 Above high normal 40.0-75.0 (%) Final Lymphs % 12/30/2023 13:53:06 12.1 Below low normal 18.0-42.0 (%) Final Monos 12/30/2023 13:53:06 11.5 Above high normal 1.0-11.0 (%) Final Eosinophils 12/30/2023 13:53:06 0.7 0.0-6.0 (%) Final Basos 12/30/2023 13:53:06 0.3 0.0-2.0 (%) Final Absolute Segs 12/30/2023 13:53:06 6.90 1.80-7.70 (K/uL) Final Lymphs, absolute 12/30/2023 13:53:06 1.11 1.00-4.80 (K/ul) Final Monos, Abs 12/30/2023 13:53:06 1.05 0.00-1.10 (K/uL) Final Eos, Abs 12/30/2023 13:53:06 0.06 0.00-0.70 (K/uL) Final Basos, Abs 12/30/2023 13:53:06 0.03 0.00-0.20 (K/uL) Final Performing Location [facility] [place] [address]
--- OUTSIDE RECORDS SUMMARY | 2024-04-26 10:56 | External Medical Summary ---
Author Name Unknown Address Unknown Organization [id number]:[facility] [address] [facility] [address] Laboratory Report Ordering Provider Test Date Status MANFRED RODRIGUEZ 12/30/2023 14:38:14 Final Observation Date Value Abnormality Reference (Units) Status PARAPROTEIN NORMAL/ABNORMAL 14:38:14 Abnormal Abnormal Normal Final Protein 14:38:14 6.4 6.0-8.3 (g/dL) Final Albumin/Protein.total [Pure mass fraction] in Serum or Plasma by Electrophoresis 14:38:14 3.25 Below low normal 3.30-4.40 (g/dL) Final Alpha 1 globulin/Protein.tota l [Pure mass fraction] in Serum or Plasma by Electrophoresis 14:38:14 0.18 0.10-0.30 (g/dL) Final Alpha 2 globulin/Protein.tota l [Pure mass fraction] in Serum or Plasma by Electrophoresis 14:38:14 1.03 Above high normal 0.60-1.00 (g/dL) Final Beta globulin/Protein.tota l [Pure mass fraction] in Serum or Plasma by Electrophoresis 14:38:14 0.89 0.80-1.30 (g/dL) Final Gamma globulin/Protein.tota l [Pure mass fraction] in Serum or Plasma by Electrophoresis 14:38:14 1.05 0.70-1.70 (g/dL) Final Protein Fractions [Interpretation] in Serum or Plasma by Electrophoresis Narrative 14:38:14 Abnormal. A paraprotein is present that has been previously identified as a monoclonal IgM lambda. Paraprotein concentration is detectable, but less than 0.5 g/dL, unable to be accurately quantified by this method. Final Performing Location [facility] [place] [facility] [address] [facility] [address]
--- OUTSIDE RECORDS SUMMARY | 2024-04-26 10:56 | External Medical Summary | Summary of Care ---
Author Name Unknown Organization [facility] Address [address] [place] [address] Phone [phone] Care Team Providers Care Coal Handling Supervisor Name Role Phone Jairo Kingston MD Primary Care Provider +1- [phone] Reason for Visit * Reason Onset Date Comments [facility]: Maintenance 12/26/2023 Encounter Details Date Type Department Care Team (Late st Contact Info) Description 12/26/2023 Telephone [facility], [facility] [address] [facility] [place] [address] Ayde Gutierrez, CHRISSY [address] [facility] [place] [address] [facility]: Maintenance Allergies Active Allergy Reactions Criticality Noted Date Comments Pavan Inhibitors Other (Please comment) 0 Hyperkalemia documented as of this encounter (statuses as of 12/26/2023) Medications Medication Sig Dispensed Refills Start Date [...] 0.1 % Nasal Solution (Astelin) Administer 1 Ponce into nostril in the morning and 1 Ponce before bedtime. 30 mL 1 01/11/2023 Active [...] as of this encounter (statuses as of 12/26/2023) Active Problems Problem Noted Date Diagnosed Date [...] as of this encounter (statuses as of 12/26/2023) Resolved Problems Problem Noted Date Diagnosed Date [...] as of this encounter (statuses as of 12/26/2023) Immunizations Name Administration Dates Next Due COVID-19 [...] Telephone Encounter - Jairo Kingston MD - 12/26/2023 5:27 PM EDT Noted - thanks * Telephone Encounter - Ayde Gutierrez RN - 12/26/2023 1:11 PM EDT Phone call from patient, upset that he has not heard anything back about his Eliquis Last pill he had he took yesterday. Advised him Dr Kingston sent in new script on 11/22. Patient reports it was no longer covered, he is " in the donut hole". Aware I will call [facility] pharmacy, get back to him Called mail order pharmacy, spoke with Eveline. Yes, he is in donut hole, so will be closer to end of year before insurance starts paying for it again, or he might have copays Can do 90 day supply now for $411.92, , or 30 day supply for $137.31 Advised I will call her back once I speak with patient's daughter, SANKET Called daughterSalina, she was under the impression the RN who was last at the house was going to work on this, did not hear back She was OK with moving forward with the 30 day supply, as long as Mail order pharm can overnight it. If not, it needs to go to [facility] pharmacy, Tiffany Called Mail order pharmacy back, spoke with Julia. Made her aware daughter Pam, agreed to paythe $137.31 for 30 day supply, needs it over-night to patient. She checked, they are able to do that, it will be sent out today via [employer] Daughter will be calling patient to let him know what is going on Will see what happens with insurance over next 30 days Ayde Gutierrez, RN, BSN tandem operatorMaterials Development Engineer [phone] option #1 documented in this encounter Plan of Treatment Upcoming Encounters Date Type Department Care Team (Late st Contact Info) Description 12/30/2023 2:00 PM EDT Hem/Onc Treatment Hematology/Oncology Treatment, [place] [address] [place] [address] Hannah, Chair 5 Hem Onc [facility] [address] [facility] [place] [address] 01/09/2024 1:00 PM EDT [place] [facility] [place], [address] [place] [address] Heath Zhang PA-C [address] [place] [address] 01/18/2024 10:00 AM EDT Home Visit [facility], [facility] [address] [place] [address] Jenifer Linder RN [address] [place] [address] 01/19/2024 4:45 PM EDT Imaging Radiology [facility] 1st Floor, [place] [address] [place] [address] 01/26/2024 9:50 AM EDT Office Visit Vascular Surgery, [address] [place] [address] Mikhail Suazo MD [address] [place] [address] [place] [address] 03/28/2024 3:20 PM EST Office Visit Sleep Disorders Ctr [facility] [address] [place] [phone] Shanika Fitzgerald DO [address] [place] [address] 04/03/2024 10:30 AM EST PulmDiagnostic Pulmonary Function Lab, [facility] [address] [place] [address] [place], [address] [facility] [place] [address] 04/03/2024 11:00 AM EST PulmDiagnostic Pulmonary Function Lab, [facility] [address] [place] [address] West, [address] [address] [place] [address] 04/03/2024 1:40 PM EST Office Visit Pulmonary Medicine, [facility] [address] [place] [address] Devin Hodge MD [address] [place] [address] 04/24/2024 6:00 PM EST Office Visit Family [facility] [address] [place] [address] Jairo Kingston MD [address], [place] [address] 06/27/2024 2:45 PM EDT Office Visit Hematology/Oncology [facility] [address] [facility] [place] [address] Michael Snyder MD [address] [facility] [place] [address] 07/30/2024 4:00 PM EDT Office Visit Nephrology, [facility] [address] [facility] [place] [address] Reggie Azevedo MD [address] [facility] [place] [address] Scheduled Procedures Name Priority Associated Diagnoses Date/Ti [...] 06/03/2021, Additional history exists GFR 04/27/2024 10/26/2023, 0 12/2023, 10/24/2023, Additional history exists Depression Screening 10/09/2024 10/10/2023 AAA Monitoring 10/20/2024 10/21/2023, 07/0 06/2023, 01/27/2023, Additional history exists Phosphate 10/21/2024 10/22/2023, 11/0 10/2022, 12/09/2022, Additional history exists O2 ASSESSMENT [...] this encounter Medical Devices Implanted Type Area Logistics/Shipper Device Identifier Shelf Expiration Date Model / Serial / Lot Graft Hemasheild 20mm [id number] - [id number] Implanted:Qty: 1 on 01/13/2009 [place] [facility]: Abdomen MICROVASIVE [id number] / / [id number] Clip Resolution 360 Endo 235cm - [id number] Implanted:Qty: 1 on 12/10/2022 by Lacie England MD at OR [facility] [employer] : ENDOSCOPY [id number] 07/02/2025 [id number] / / [id number] Clip Resolution 360 Endo 235cm - [id number] Implanted:Qty: 1 on 12/10/2022 by Lacie England MD at OR [facility] [employer] : ENDOSCOPY [id number] 07/02/2025 [id number] / / [id number] Stent Biliary Adult L30mm Dia1 - [id number] Implanted:Qty: 1 on 10/26/2023 by Lacie England MD at OR [facility] COOK : JOHANNA COURTNEY [id number] 06/27/2026 [id number] / / [id number] documented as of this encounter Advance Directives Documents on File Type Date Recorded Patient Cardiac Sonographer Expl anation Power of Server Developer 07/30/2022 POWER OF A TTORNEY * Full [...] and were consensually agreed upon. Care Teams Coal Handling Supervisor Relationship Specialty Start Date End Date Jairo Kingston MD [address] [place] [address] PCP - General 12/21/05 documented as of this encounter
--- OUTSIDE RECORDS SUMMARY | 2024-04-26 10:56 | External Medical Summary | Summary of Care ---
Author Name Unknown Organization [facility] Address [address] [place] [address] Phone [phone] Care Team Providers Care Utility Bill Complaints Investigator Name Role Phone Jairo Kingston MD Primary Care Provider +1- [phone] Reason for Visit * Reason Onset Date Comments [facility]: Maintenance 12/26/2023 Encounter Details Date Type Department Care Team (Late st Contact Info) Description 12/26/2023 Telephone [facility], [facility] [address] [facility] [place] [address] Ayde Gutierrez, CHRISSY [address] [facility] [place] [address] [facility]: Maintenance Allergies Active Allergy [...] 0.1 % Nasal Solution (Astelin) Administer 1 [place] into nostril in the morning and 1 Arc[place] before bedtime. 30 mL 1 01/11/2023 Active [...] Oral Tablet (Eliquis)Indications :Recurrent cerebrovascular accidents (CVAs) ([facility]) Take 1 Tablet by mouth in the morning and 1 Tablet before bedtime. 180 Tablet 1 11/23/2023 Active Albuterol Sulfate HFA 108 (90 Base) MCG/ACT Inhalation Aerosol SolutionIndications: COPD, group D, by GOLD 2017 classification ([facility]) Inhale 2 Puffs by mouth every 4 hours as needed for Wheezing. 54 g 6 11/23/2023 Active Furosemide 20 MG Oral Tablet (Lasix) TAKE 1 TABLET BY MOUTH twice DAILY 180 Tablet 1 12/08/2023 Active Doxycycline Hyclate 100 MG Oral TabletIndications:CO PD, group D, by GOLD 2017 classification ([facility]) Take 1 Tablet by mouth in the morning and 1 Tablet before bedtime. For as needed Rescue kit use when directed to take for COPD exacerbation. 14 Tablet 12/09/2023 Active Additional Information Patient not taking.Reported on 12/13/2023 predniSONE 20 MG Oral Tablet (Deltasone)Indicatio ns:COPD, group D, by GOLD 2017 classification ([facility]) Take 2 Tablets by mouth [...] mgIndications:COPD, group D, by GOLD 2017 classification ([facility]) 2.5 mg NEBULIZER PRN 10/03/2023 [...] encounter Miscellaneous Notes * Telephone Encounter - Ayde Gutierrez, CHRISSY - 12/26/2023 1:11 PM EDT Phone call from patient, upset that he has not heard anything back about his Eliquis Last pill he had he took yesterday. Advised him Dr Kingston sent in new script on 11/22. Patient reports it was no longer covered, he is " in the donut hole". Aware I will call [facility] mail order pharmacy, get back to him [...] I speak with patient's daughter, SANKET Called daughter, Salina, she was under the impression the RN who was last at the house was going to work on this, did not hear back She was OK with moving forward with the 30 day supply, as long as Mail order pharm can overnight it. If not, it needs to go to [facility] pharmacy, Tiffany Called Mail order pharmacy back, [...] next 30 days Ayde Gutierrez, RN, BSN liquor commissionerDegree Clerk [phone] option #1 documented in this encounter Plan of Treatment Upcoming Encounters Date Type Department Care Team (Late st Contact Info) Description 12/30/2023 2:00 PM EDT Hem/Onc Treatment Hematology/Oncology Treatment, [address] [place] [phone] Hannah, Chair 5 Hem [address] [address] 01/09/2024 1:00 PM EDT [place] Visit [place] [facility] [place], [facility] [address] [place] [address] Heath Zhang PA-C [address] [place] [address] 01/18/2024 10:00 AM EDT [facility] [place], [facility] [address] [place] [address] Jenifer Linder RN [address] [place] [address] 01/19/2024 4:45 PM EDT Imaging Radiology [address] [place] [address] 01/26/2024 9:50 AM EDT Office Visit Vascular Surgery, [place] [address] [facility] [place] [address] Mikhail Suazo MD [address] [facility], [place] [address] 03/28/2024 3:20 PM EST Office Visit Sleep Disorders Ctr [facility] 132 [facility] [place] [phone] Shanika Fitzgerald DO [address] [place] [address] 04/03/2024 10:30 AM EST PulmDiagnostic Pulmonary Function Lab, [facility] [address] [facility] [place] [address] West, [place]ft [address] [facility] [place] [address] 04/03/2024 11:00 AM EST PulmDiagnostic Pulmonary Function Lab, [facility] [address] [facility] [place] [address] West, [place] [address] [facility] [place] [address] 04/03/2024 1:40 PM EST Office Visit Pulmonary Medicine, [facility] [address] [facility] [place] [address] Devin Hodge MD [address] [place] [address] 04/24/2024 6:00 PM EST Office Visit Family [facility] [address] [facility], [place] [phone] Jairo Kingston MD [address] [place] [address] 06/27/2024 2:45 PM EDT Office Visit Hematology/Oncology [facility] [address] [facility] [place] [phone] Michael Snyder MD [address] [facility] [place] [address] 07/30/2024 4:00 PM EDT Office Visit Nephrology, [facility] [address] [facility] [place] [address] Reggie Azevedo MD [address] [facility] [place] [address] Scheduled Procedures Name Priority Associated Diagnoses Date/Ti [...] 06/03/2021, Additional history exists GFR 04/27/2024 10/26/2023, 070 12/2023, 10/24/2023, Additional history exists Depression Screening 10/09/2024 10/10/2023 AAA Monitoring 10/20/2024 10/21/2023, 06/2023, 01/27/2023, Additional history exists Phosphate 10/21/2024 10/22/2023, 10/2022, 12/09/2022, Additional history exists O2 ASSESSMENT [...] this encounter Medical Devices Implanted Type Area Data Analysis Manager Device Identifier Shelf Expiration Date Model / Serial / Lot Graft Hemasheild 20mm [id number] - [id number] Implanted:Qty: 1 on 01/13/2009 at OR [facility] [place] N/A: Abdomen MICROVASIVE [id number] / / [id number] Clip Resolution 360 Endo 235cm - [id number] Implanted:Qty: 1 on 12/10/2022 by Lacie England MD at OR [facility] [employer] : ENDOSCOPY [id number] 07/02/2025 [id number] / / [id number] Clip Resolution 360 Endo 235cm - [id number] Implanted:Qty: 1 on 12/10/2022 by Lacie England MD at OR [facility] [employer] : ENDOSCOPY [id number] 07/02/2025 [id number] / / [id number] Stent Biliary Adult L30mm Dia1 - [id number] Implanted:Qty: 1 on 10/26/2023 by Lacie England MD at OR [facility] ROZ : JOHANNA COURTNEY [id number] 06/27/2026 [id number] / / [id number] documented as of this encounter Advance Directives Documents on File Type Date Recorded Patient Electron Beam Welding Machine Operator Expl anation Power of Health Educator 07/30/2022 POWER OF A TTORNEY * Full [...] and were consensually agreed upon. Care Teams Utility Bill Complaints Investigator Relationship Specialty Start Date End Date Jairo Kingston MD [address] [facility] [address] PCP - General 12/21/05 documented as of this encounter
--- OUTSIDE RECORDS SUMMARY | 2024-04-26 10:56 | External Medical Summary | Summary of Care ---
Author Name Unknown Organization [facility] Address [address] [place] [address] Phone [phone] Care Team Providers Care Rodding Anode Worker Name Role Phone Jairo Kingston MD Primary Care Provider +1- [phone] Reason for Visit * Reason Onset Date Comments [facility]: Maintenance 12/26/2023 Encounter Details Date Type Department Care Team (Late st Contact Info) Description 12/26/2023 Telephone [facility], [facility] [address] [facility] [place] [address] Ayde Gutierrez, CHRISSY [address] [facility] [place] [address] [facility]: Maintenance Allergies Active Allergy Reactions Criticality Noted Date Comments Pavan Inhibitors Other (Please comment) 0 Hyperkalemia documented as of this encounter (statuses as of 12/29/2023) Medications Medication Sig Dispensed Refills Start Date [...] 0.1 % Nasal Solution (Astelin) Administer 1 [place] into nostril in the morning and 1 [place] before bedtime. 30 mL 1 01/11/2023 Active [...] Tablet (Eliquis)Indications :Recurrent cerebrovascular accidents (CVAs) ([facility]) Take 1 Tablet by mouth in the morning and 1 Tablet before bedtime. 180 Tablet 1 11/23/2023 Active Albuterol Sulfate HFA 108 (90 Base) MCG/ACT Inhalation Aerosol SolutionIndications: COPD, group D, by GOLD 2017 classification ([facility]) Inhale 2 Puffs by mouth every 4 hours as needed for Wheezing. 54 g 6 11/23/2023 Active Furosemide 20 MG Oral Tablet (Lasix) TAKE 1 TABLET BY MOUTH twice DAILY 180 Tablet 1 12/08/2023 Active Doxycycline Hyclate 100 MG Oral TabletIndications:CO PD, group D, by GOLD 2017 classification ([facility]) Take 1 Tablet by mouth in the morning and 1 Tablet before bedtime. For as needed Rescue kit use when directed to take for COPD exacerbation. 14 Tablet 12/09/2023 Active Additional Information Patient not taking.Reported on 12/13/2023 predniSONE 20 MG Oral Tablet (Deltasone)Indicatio ns:COPD, group D, by GOLD 2017 classification ([facility]) Take 2 Tablets by mouth in the [...] group D, by GOLD 2017 classification ([facility]) 2.5 mg NEBULIZER PRN 10/03/2023 10/02/2024 Acti ve documented as of this encounter (statuses as of 12/29/2023) Active Problems Problem Noted Date Diagnosed Date [...] as of this encounter (statuses as of 12/29/2023) Resolved Problems Problem Noted Date Diagnosed Date [...] as of this encounter (statuses as of 12/29/2023) Immunizations Name Administration Dates Next Due COVID-19 [...] If not, it needs to go to [facility] pharmacy, Tiffany Called Mail order pharmacy [...] next 30 days Ayde Gutierrez, RN, BSN hot tar roofer helperErgonomics Consultant [phone] option #1 documented in this encounter Plan of Treatment Upcoming Encounters Date Type Department Care Team (Late st Contact Info) Description 12/30/2023 2:00 PM EDT Hem/Onc Treatment Hematology/Oncology Treatment, [place] [address] [place] [address] Hannah, Chair 5 Hem Onc [facility] 200 [facility] [place] [address] 01/09/2024 1:00 PM EDT [place], [address] [place] [address] Heath Zhang PA-C [address] [place] [address] 01/18/2024 10:00 AM EDT Home Visit [facility], [facility] [address] [place] [address] Jenifer Linder RN [address] [place] [address] 01/19/2024 4:45 PM EDT Imaging Radiology [facility] 1st Floor, [place] [address] [place] [address] 01/26/2024 9:50 AM EDT Office Visit Vascular Surgery, [address] [place] [address] Mikhail Suazo MD [address] [place] [address] [place] [address] 03/28/2024 3:20 PM EST Office Visit Sleep Disorders Ctr [facility] [address] [place] [phone] Shanika Fitzgerald DO [address] [place] [address] 04/03/2024 10:30 AM EST PulmDiagnostic Pulmonary Function Lab, [facility] [address] [place] [address] [place], [address] [place] [address] 04/03/2024 11:00 AM EST PulmDiagnostic Pulmonary Function Lab, [facility] [address] [place] [address] West, [address]ft [address] [place] [address] 04/03/2024 1:40 PM EST Office Visit Pulmonary Medicine, [facility] [address] [place] [address] Devin Hodge MD [address] [place] [address] 04/24/2024 6:00 PM EST Office Visit Family [facility] [address] [place] [phone] Jairo Kingston MD [address] [place], [place] [phone] 06/27/2024 2:45 PM EDT Office Visit Hematology/Oncology [facility] [address] [facility] [address] Michael Snyder MD [address] [facility] [address] 07/30/2024 4:00 PM EDT Office Visit Nephrology, [facility] [address] [facility] [place] [address] Reggie Azevedo MD [address] [place] [address] Scheduled Procedures Name Priority Associated Diagnoses Date/Ti [...] encounter Medical Devices Implanted Type Area Senior Java Programmer Analyst Device Identifier Shelf Expiration Date Model / Serial / Lot Graft Hemasheild 20mm [id number] - [id number] Implanted:Qty: 1 on 01/13/2009 at OR [facility] [place] N/A: Abdomen MICROVASIVE [id number] / / [id number] Clip Resolution 360 Endo 235cm - [id number] Implanted:Qty: 1 on 12/10/2022 by Lacie England MD at OR [facility] [employer] : ENDOSCOPY [id number] 07/02/2025 [id number] / / [id number] Clip Resolution 360 Endo 235cm - [id number] Implanted:Qty: 1 on 12/10/2022 by Lacie England MD at OR [facility] [employer] : ENDOSCOPY [id number] 07/02/2025 [id number] / / [id number] Stent Biliary Adult L30mm Dia1 - [id number] Implanted:Qty: 1 on 10/26/2023 by Lacie England MD at OR [facility] COOK : JOHANNA COURTNEY [id number] 06/27/2026 [id number] / / [id number] documented as of this encounter Advance Directives Documents on File Type Date Recorded Patient Dairy Clerk Expl anation Power of Crop Farmers 07/30/2022 POWER OF A TTORNEY * Full [...] and were consensually agreed upon. Care Teams Rodding Anode Worker Relationship Specialty Start Date End Date Jairo Kingston MD [address] [place] [address] PCP - General 12/21/05 documented as of this encounter
--- OUTSIDE RECORDS SUMMARY | 2024-04-26 10:57 | External Medical Summary | Summary of Care ---
Author Name Unknown Organization [facility] Address [address] [place] [address] Phone [phone] Care Team Providers Care Felt Hat Flanging Operator Name Role Phone Jairo Kingston MD Primary Care Provider [phone] Reason for Visit * Reason Comments Follow Up Encounter Details Date Type Department Care Team (Latest Contact Info) Description 12/14/2023 9:15 AM EDT Telemedicine Hematology/Oncology [facility] [address] [facility] [place] [id number] Michael Snyder MD [address] [place] [address] Iron deficiency anemia due to chronic blood loss*; Chronic kidney disease, stage 4 (severe) (HCC); Monoclonal paraproteinemia Allergies Active Allergy Reactions Criticality Noted Date Comments Pavan Inhibitors Other (Please comment) 0 Hyperkalemia documented as of this encounter (statuses as of 12/14/2023) Medications Medication Sig Dispensed Refills Start Date [...] 0.1 % Nasal Solution (Astelin) Administer 1 [place] into nostril in the morning and 1 [place] before bedtime. 30 mL 1 01/11/2023 Active [...] (Eliquis)Indications :Recurrent cerebrovascular accidents (CVAs) ([facility]) Take 1 Tablet by mouth in the morning and 1 Tablet before bedtime. 180 Tablet 1 11/23/2023 Active Albuterol Sulfate HFA 108 (90 Base) MCG/ACT Inhalation Aerosol SolutionIndications: COPD, group D, by GOLD 2017 classification ([facility]) Inhale 2 Puffs by mouth every 4 hours as needed for Wheezing. 54 g 6 11/23/2023 Active Furosemide 20 MG Oral Tablet (Lasix) TAKE 1 TABLET BY MOUTH twice DAILY 180 Tablet 1 12/08/2023 Active Doxycycline Hyclate 100 MG Oral TabletIndications:CO PD, group D, by GOLD 2017 classification ([facility]) Take 1 Tablet by mouth in the morning and 1 Tablet before bedtime. For as needed Rescue kit use when directed to take for COPD exacerbation. 14 Tablet 12/09/2023 Active Additional Information Patient not taking.Reported on 12/13/2023 predniSONE 20 MG Oral Tablet (Deltasone)Indicatio ns:COPD, group D, by GOLD 2017 classification ([facility]) Take 2 Tablets by mouth in the morning. USE NEEDED FOR EXACERBATION. COPD RESCUE KIT. 10 Tablet 12/09/2023 Active Hospital, Clinic, or Other Facility Administered Medication Ordered Dose Route Frequency Start Date End Date Status Albuterol Sulfate (Proventil) (2.5 MG/3ML) 0.083% inhalation solution 2.5 mgIndications:COPD, group D, by GOLD 2017 classification ([facility]) 2.5 mg NEBULIZER PRN 10/03/2023 10/02/2024 Acti ve documented as of this encounter (statuses as of 12/14/2023) Active Problems Problem Noted Date Diagnosed Date [...] as of this encounter (statuses as of 12/14/2023) Resolved Problems Problem Noted Date Diagnosed Date [...] as of this encounter (statuses as of 12/14/2023) Immunizations Name Administration Dates Next Due COVID-19 [...] as of this encounter Progress Notes * Michael Snyder MD - 12/14/2023 9:15 AM EDT After connecting to the patient via telephone, the patient was identified by name and date of . Patient was then informed that this was a telephone call only visit. The patient agreed to participate. Visit Disposition: Routine follow-up Total call duration was 13 minutes. [facility]ology[facility] [address] [place] [address] Name: Mikhail Fung Date: 01/11/2023 CHIEF COMPLAINT: Mikhail Fung is a 72 year old male here today for f/u visit today. Patient of Dr. Michael Snyder. From Patient chart confirmed with patient. 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 Iron deficiency anemia d/t GI blood loss TREATMENT HISTORY: IV Venofer weekly x 4 last completed 09/10/22 IV Monoferric 1,000 mg 10/22/22 Aranesp 100mcg SQ once every 3 weeks if hgb is less than 11 - last received 11/19/22 CURRENT TREATMENT: - Currently receiving IV iron in the form Venofer every other week since 12/2022. In 06/2023, change to every 4 weekly DIAGNOSTIC WORKUP: He is referred to hematology for evaluation of the paraprotein noted in the recent blood workup done in early September 2020. He follows with Nephrology for abnormal kidney function says, reviewed those records, for the last few years. The creatinine level has been in the range of 1.5-2 mg/dL. Blood workup done on 09/16/2020: - WBC= 8900, H&H= 11/35, Platelet= 283,000 - MCV 96 - BUN/Creat: 30/2.0, calcium 9.4 - Ferritin --> 38 - M spike --> 0.61 g/dL (IgM-> lambda). - Serum iron 50, TIBC 342, saturation 15% - Vitamin B12 --> 487 folic acid --> 9.5 - Urine for Protein/Creatinine ratio --> 1079. Component PROTEIN/CREAT RATIO Protein/ Creatinine Ratio, Urine Latest Ref Rng & Units <150 mg/g <150 mg/g 12/21/2017 3,964 (H) 02/06/2019 607 (H) 05/24/2019 1,056 (H) 09/16/2020 1,079 (H) Recently he had CV stroke, he was admitted at [facility] in May 2020: He hadsome right leg numbness. Further workup as follows: -MRI Brain: Acute right cerebellar infarct -Head CTA:No significant change from the preceding study. Persistent atheromatous changes as described above without evidence of hemodynamically significant stenosis. 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 Extensive atheromatous changes with a 50% stenosis of the proximal right internal carotid artery. 50% diameter stenosis of the proximal right vertebral artery. Equivocal right vocal cord polyp. Stable 7 mm soft tissue nodule superior lateral to the left vocal cord. -ECHO: Patent lancaster ovale. Moderate concentric LVH. EF 55 to 60%. Moderate to severe valvular aortic stenosis. - Started on Eliquis given concern for PSVT/Afib OTHER IMPORTANT HISTORY: - hyperlipidemia, gout, hypertension, chronic kidney disease stage IIIb, stenosis of left renal artery, aneurysm of left common iliac artery, GERD, status post lumbar disc extension, history of shingles, history of abdominal aortic aneurysm, history of occipital stroke, noresidual weakness. 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 Gout. COPD, emphysematous changes, on CPAP. Discontinue smoking habit about 3 to 4 years back. Drinks alcohol in the form beer. -spine surgery about 20 years back. 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 Interval History: HOSPITAL COURSE 12/08/22 - 12/11/22 (focused): 72 yo M admitted for acute on chronic anemia likely from GI source . He received 3 units of PRBC's on this admission. Hold eliquis/plavix. Hold antihypertension/diuretics to avoid hypotension. He wasgiven IV Protonix. He underwent EGD/EUS/small bowel enteroscopy/ERCP/Axios stent placement yesterday . 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 Clips placed. Scheduled for video capsule endoscopy as outpatient. H/H has been stable around 8 since the third blood transfusion. He hadone black bowel movement on . Denies nausea, vomiting, abdominal pain. He tolerates clear liquid diet. He was suggested to PO PPI, soft diet, hold anticoagulation until black stools resolve and 5 days of Cipro+flagyl , f/u CBC/BMP in 3 days upon discharge. He had 35 years history of smoking ( 1 PPD) , quit 2008, had chronic cough with brown /bourgeois mucus. Continue on supplemental oxygen bronchodilators. Short course prednisone 20 mg daily for 5 days. Severity of COPD need to determine. PMH of COPD on 2 L NC, GINNY on CPAP, severe , embolic CVA, chronic anticoagulation with Eliquis/Plavix, AAA s/p repair, MGUS, CKD stage 3b to 4, acute cholecystitis/choledocholithiasis s/p EUS/ERCP 11/04 at [facility] ( had AVM's Rx with APC , CBD stone removed, CBD stent/PD stents, trans papillary gallbladder stenting ) followed by post sphincterotomy bleed required repeat EUS/ERCP with stents revmoved and replaced on 11/26. Operations & Procedures: EUS/ERCP/EGD/Axio stent placement Patient subsequently admitted at [facility] 12/28/22- 01/01/23 for upper GI bleed secondary to active bleeding angiectasia. Presented with increased shortness of breath, dark stools, increased fatigue. Hemoglobin found to be 5.9. He received 4 units packed red blood cells. He did have hematemesis in the emergency department and was taken for upper endoscopy. Found to have a single actively bleeding angioectasia in the stomach which was treated he was started on IV proton pump inhibitor drip. His Plavix was stopped indefinitely. His Eliquis was hold but he was advised to consider restarting at 2.5 milligrams twice per day if follow-up hemoglobin stable. Gastroenterology plans a repeat endoscopy in 2 months. Also recommending monthly IM octreotide injections. HISTORY OF PRESENT ILLNESS: I spoke with him on the phone, currently he is receiving intravenous iron the form Venofer every monthly since 06/2023, before that he was receiving every other week. Overall he is doing well, ambulating slowly by himself, he says that he is not driving, had some CVstroke and some blurring of vision, he uses CPAP on a regular basis at nighttime, sometimes he usesoxygen during the daytime, no pain at any site, no bleeding from any sites, no nausea no vomiting, no infections. He lives with his . Past Medical History: Diagnosis Date Abdominal aortic aneurysm (HCC) Backache work related Benign hypertension with stage 3b chronic kidney disease (HCC) 08/26/2020 Benign neoplasm of colon 12/05/08 adenomatous polyp--repeat 3 years Benign neoplasm of colon 01/11/12 adenomatous polyp rpt c-scope in 3 years Chronic kidney disease, stage 4 (severe) ([facility]) 08/12/2022 Dyslipidemia, goal to be determined Gout 07/18/2001 HTN, goal below 140/90 Recurrent cerebrovascular accidents (CVAs) ([facility]) 08/12/2022 Varicose vein of leg Past Surgical [...] performed by Jayna Montana MD at ENDOSCOPY [facility] COLONOSCOPY, DIAGNOSTIC (RECTUM) 08/02/2017 adenomatous polyps, diverticulosis, repeat 3 yrs/COLONOSCOPY FLEXIBLE PROXIMAL DIAGNOSTIC performedby Lacie England MD at ENDOSCOPY [facility] COLONOSCOPY, DIAGNOSTIC (RECTUM) 01/02/2021 benign adenomatous polyp, diverticulosis, repeat 5 yrs / [facility] COLONOSCOPY, GI REFERRAL OP 08/2004 polyps, repeat 08/23 EGD, FLEXIBLE, DIAGNOSTIC 02/20/2018 normal / [facility] EGD, FLEXIBLE, DIAGNOSTIC 11/04/2021 gastritis, gastric ulcer, repeat 3 mo / [facility] EGD, FLEXIBLE, DIAGNOSTIC 03/03/2022 normal egd, EGD, FLEXIBLE, DIAGNOSTIC N/A 12/28/2022 clotted blood gastric fundus, cleared/single actively bleeding angioectasia stomach, treated with APC, padlock clip/cholecystoduodenal axios stent duodenum/EGD/[place] EGD, FLEXIBLE, DIAGNOSTIC N/A 02/23/2023 retained endoclips stomach/2 non-bleeding angioectasias stomach, treated with APC and clips/cholecystoduodenostomy Axios stent intact/repeat 6 months/EGD/[place] EGD, FLEXIBLE, DIAGNOSTIC N/A 10/26/2023 ESOPHAGOGASTRODUODENOSCOPY (EGD), FLEXIBLE, TRANSORAL, DIAGNOSTIC performed by Lacie England MD at [facility] EGD, FLEXIBLE, W/CYST DRAINAGE N/A 12/10/2022 single non-bleeding angioectasia stomach/ESOPHAGOGASTRODUODENOSCOPY (EGD), FLEXIBLE, TRANSORAL, WITH DRAINAGE PSEUDOCYST performed by Lacie England MD at [facility] EGD, FLEXIBLE,W/ENDOSCOPIC US 11/04/2022 CBD dilation, CBD stones, angioectasias in the stomach / [facility] EGD, W/ENDOSCOPIC US N/A 12/10/2022 cholecystoduodenostomy performed using Axios stent/repeat 1 year/ESOPHAGOGASTRODUODENOSCOPY (EGD), FLEXIBLE, TRANSORAL, ENDOSCOPIC ULTRASOUND performed by Lacie England MD at [facility] ERCP 11/04/2022 choledocholithiasis, stent placed, repeat 3 mo / [facility] ERCP 11/26/2022 clots found in biliary tree, stent placed / [facility] ERCP, DIAGNOSTIC, SPECIMEN COLLECTION N/A 12/10/2022 one stent removed from CBD/ENDOSCOPIC RETROGRADE CHOLANGIOPANCREATOGRAPHY (ERCP) DIAGNOSTIC performed by Lacie England MD at [facility] MISCELLANEOUS ORDER ([facility] ONLY) 01/28/2010 Lysis of extensive adhesions, incisional hernia repair laparoscopically 01/28/10 [facility], Dr. 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 Employer: [id number] Employer: [id number] Tobacco Use Smoking status: Former Current packs/day: 0.00 Average packs/day: 1 pack/day for 35.0 years (35.0 ttl pk-yrs) Types: Cigars, Cigarettes Start date: 1973 Quit date: 2008 Years since quittin.6 Passive exposure: Never Smokeless tobacco: Never Vaping Use Vaping status: Never Used Substance and Sexual Activity Alcohol use: Yes Alcohol/week: 3.0 standard drinks of alcohol Types: 3 12 oz of beer per week Drug use: No Sexual activity: Yes Partners: Female Other Topics Concern Not on file Social History Narrative 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 30 mL 1 Ezetimibe 10 [...] Ellipta 100-62.5-25 MCG/ACT Aerosol Powder Breath Activated (Nyitwmyyaos-Eyhcsythtwsr-Vklfmbpjzf) INHALE ONE PUFF BY MOUTH EVERY DAY 180 Each 1 Metoprolol Tartrate 25 MG Oral Tablet [...] the morning and 1 Tablet before bedtime. Apixaban 2.5 MG Oral Tablet (Eliquis) Take 1 Tablet by mouth in the morning and 1 Tablet before bedtime. 180 Tablet 1 Albuterol Sulfate HFA 108 (90 Base) MCG/ACT Inhalation Aerosol Solution Inhale 2 Puffs by mouth every 4 hours as needed for Wheezing. 54 g 6 Furosemide 20 MG Oral Tablet (Lasix) TAKE 1 TABLET BY MOUTH twice DAILY 180 Tablet 1 Doxycycline Hyclate 100 MG Oral Tablet Take 1 Tablet by mouth in the morning and 1 Tablet before bedtime. For as needed Rescue kit use when directed to take for COPD exacerbation. (Patient not taking: Reported on 12/13/2023) 14 Tablet 0 predniSONE 20 MG Oral Tablet (Deltasone) Take 2 Tablets by mouth in the morning. USE NEEDED FOR EXACERBATION. COPD RESCUE KIT. 10 Tablet 0 Current Facility-Administered Medications Medication Dose Route Frequency Provider Last Rate Last Admin Albuterol Sulfate (Proventil) (2.5 MG/3ML) 0.083% inhalation solution 2.5 mg 2.5 mg Nebulizer PRN REVIEW OF SYSTEMS: See HPI - otherwise negative OBJECTIVE: There were no vitals taken for this visit. PHYSICAL EXAM: No examination done as this was a telephonic visit. LABS: Blood workup done on 05/20/2023: -WBC 8700, H&H of 11/36.4, Platelet count of 915579 -BUN/Creat: 32/2.6, Calcium 9.3, normal LFT other than alkaline phosphatase of 159. -Ferritin level --> 346, Serum iron: 41, TIBC 225, iron saturation 18%. ( 05/09/2023). Blood workup done on 12/02/2023: -WBC 7100, H&H of 10.7/30.6, platelet count of 198,000. - Ferritin level -->110 - Serum iron:28, TIBC 309, iron saturation 9%. 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 Patient hospitalized in both November and December for acute on chronic anemia d/t GI bleed requiring transfusion support. Found to have a single actively bleeding angio ectasia in the stomach which was treated. Plavix discontinued. Eliquis restarted at decreased dose of 2.5 mg BID. He was receiving intravenous iron the form of Venofer every other week since 12/2022, change to every 4 weekly in June of 2023.. Overall he is doing well, will monitor his blood count and iron storage every 4 weekly when he receives IV iron in the form Venofer. I reviewed his blood workup done recently, overall mild anemia, also has renal insufficiency also contributing to the anemia, adequate iron storage. Will continue IV iron with Venofer every 4 weekly for additional 6 months and then will reassess Regarding monoclonal paraprotein, will continue to observe. Planning for another myeloma blood workup on 12/30/2023 ( ordered). Planning to see him back in the clinic in about [address] Michael Snyder Hem/Onc (This note was completed using the dictation program Fluency Direct. As such, there may be misspellings, word substitutions, or other variations that should not change the essence of the clinical content of this encounter note. If there is need for further clarification, please direct questions to the provider listed above.) documented in this encounter Plan of Treatment Upcoming Encounters Date Type Department Care Team (Late st Contact Info) Description 12/30/2023 2:00 PM EDT Hem/Onc Treatment Hematology/Oncology Treatment, [place] [address] [place] [phone] Hannah, Chair 1 Hem Onc [address] [facility] [address] 01/09/2024 1:00 PM EDT Home Visit [facility] [place], [facility] [address] [place] [address] Heath Zhang PA-C [address] [facility] [place] [address] 01/18/2024 10:00 AM EDT Home Visit [facility] [place], [facility] [address] [place] [address] Jenifer Linder RN [address] [place] [address] 01/19/2024 4:45 PM EDT Imaging Radiology [address] [place] [address] 01/26/2024 9:50 AM EDT Office Visit Vascular Surgery, [address] [place] [address] Mikhail Suazo MD [address] [place] [address] 03/28/2024 3:20 PM EST Office Visit Sleep Disorders Ctr [facility] [address] [facility] [place] [phone] Shanika Kuhn, [address] [facility] [place] [address] 04/03/2024 10:30 AM EST PulmDiagnostic Pulmonary Function Lab, [facility] [address] [facility] [place] [address] West, [address] [place] [address] 04/03/2024 11:00 AM EST PulmDiagnostic Pulmonary Function Lab, [facility] [address] [facility] [place] [address] West, [address] [facility] [place], [place] [address] 04/03/2024 1:40 PM EST Office Visit Pulmonary Medicine, [facility] [address] [facility] [place] [address] Devin Hodge MD [address] [place] [facility] [place] [address] 04/24/2024 6:00 PM EST Office Visit [facility] [address] [place] [id number] Jairo Kingston MD [address] [place] [address] 07/30/2024 4:00 PM EDT Office Visit Nephrology, [facility] [address] [place], [place] [address] Reggie Azevedo MD [address] [place], [place] [address] Scheduled Orders Name Type Priority Associated Diagnoses Orde r Schedule SERUM FREE LIGHT CHAINS Lab Routine Monoclonal paraproteinemia Expected: 12/30/2023, Expires: 12/13/2024 SERUM PROTEIN ELECTROPHORESIS REFLEX PROFILE Lab Routine Monoclonal paraproteinemia Expected: 12/30/2023, Expires: 12/13/2024 IMMUNOGLOBULIN QUANTITATIVE Lab Routine Monoclonal paraproteinemia Expected: 12/30/2023, Expires: 12/13/2024 Scheduled Procedures Name Priority Associated Diagnoses Date/Ti me COLONOSCOPY FLEXIBLE PROXIMAL DIAGNOSTIC Recall History of colon polyps Health Maintenance Due Date Last Done Comments Adult Wellness Visit 2014 *COPD SEVERITY VERIFIED BY PFT 08/28/2022 Albumin/Creatinine Ratio 10/08/2022 10/08/2021 COVID-19 Vaccine ( season) 2022 02/19/2021, 06/19/2020, 05/22/2020 Influenza Vaccine (FLU shot) [...] this encounter Medical Devices Implanted Type Area Hand Endband Cutter Device Identifier Shelf Expiration Date Model / Serial / Lot Graft Hemasheild 20mm [id number] - [id number] Implanted:Qty: 1 on 01/13/2009 at [place] [facility] N/A: Abdomen MICROVASIVE [id number] / / [id number] Clip Resolution 360 Endo 235cm - [id number] Implanted:Qty: 1 on 12/10/2022 by Lacie England MD at [facility] [employer] : ENDOSCOPY [id number] 07/02/2025 [id number] / / [id number] Clip Resolution 360 Endo 235cm - [id number] Implanted:Qty: 1 on 12/10/2022 by Lacie England MD at [facility] [employer] : ENDOSCOPY [id number] 07/02/2025 [id number] / / [id number] Stent Biliary Adult L30mm Dia1 - [id number] Implanted:Qty: 1 on 10/26/2023 by Lacie England MD at OR [facility] COOK : JOHANNA COURTNEY [id number] 06/27/2026 [id number] / / [id number] documented as of this encounter Visit Diagnoses Diagnosis Iron deficiency anemia due to chronic blood loss- Primary Iron 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 (chronic) Chronic kidney disease, stage 4 (severe) (HCC) Monoclonal paraproteinemia documented in this encounter Advance Directives Documents on File Type Date Recorded 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 Care Teams Felt Hat Flanging Operator Relationship Specialty Start Date End Date Jairo Kingston MD [address] [place] [address] PCP - General 12/21/05 documented as of this encounter
--- OUTSIDE RECORDS SUMMARY | 2024-04-26 10:57 | External Medical Summary | Summary of Care ---
Author Name Unknown Organization [facility] Address [address] [place] [address] Phone [phone] Care Team Providers Care Patient Companion Name Role Phone Jairo Kingston MD Primary Care Provider [phone]- [phone] Reason for Visit * Reason Onset Date Comments Appointment 12/14/2023 Encounter Details Date Type Department Care Team (Late st Contact Info) Description 12/14/2023 Telephone [facility] [address] [place] [address] Jairo Kingston MD [address] [place] [address] Appointment Allergies Active Allergy Reactions Criticality Noted Date [...] 0.1 % Nasal Solution (Astelin) Administer 1 Cabot into nostril in the morning and 1 Cabot before bedtime. 30 mL 1 01/11/2023 Active [...] (Eliquis)Indications :Recurrent cerebrovascular accidents (CVAs) ([facility] classification ([facility]) Take 1 Tablet by mouth in the morning and 1 Tablet before bedtime. For as needed Rescue kit use when directed to take for COPD exacerbation. 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 He can not do this on his own. documented in this encounter Plan of Treatment Upcoming Encounters Date Type Department Care Team (Late st Contact Info) Description 12/30/2023 2:00 PM EDT Hem/Onc Treatment Hematology/Oncology Treatment, [place] [address] [place] [phone] Hannah, Chair 1 Hem Onc Scenery [address] [place] [address] 01/09/2024 1:00 PM EDT Home Visit [facility] [place], [facility] [address] [place] [address] Heath Zhang PA-C [address] [place] [address] 01/18/2024 10:00 AM EDT Home Visit [facility] [place], [facility] [address] [place] [address] Jenifer Linder RN [address] [place] [address] 01/19/2024 4:45 PM EDT Imaging Radiology [address] [place] [address] 01/26/2024 9:50 AM EDT Office Visit Vascular Surgery, [address] [address] Mikhail Suazo MD [address] [place] [address] 03/28/2024 3:20 PM EST Office Visit Sleep Disorders [facility] [address] [place] [phone] Shanika Fitzgerald DO [address] [facility] [place] [address] 04/03/2024 10:30 AM EST PulmDiagnostic Pulmonary Function Lab, [facility] [address] [facility] [place] [address] [address], [address] [facility] [place] [address] 04/03/2024 11:00 AM EST PulmDiagnostic Pulmonary Function Lab, [facility] [address] [facility] [place] [address] West, [address] [facility] [place] [address] 04/03/2024 1:40 PM EST Office Visit Pulmonary Medicine, [facility] [address] [facility] [place] [address] Devin Hodge MD [address] [facility] [place] [address] 04/24/2024 6:00 PM EST Office Visit [facility] [address] [place] [phone] Jairo Kingston MD [address] [place] [address] 07/30/2024 4:00 PM EDT Office Visit Nephrology, Yuliet Young [address] [place] [address] Reggie Azevedo MD [address] [place], [place] [address] Scheduled Procedures Name Priority Associated Diagnoses Date/Ti me COLONOSCOPY FLEXIBLE PROXIMAL DIAGNOSTIC Recall History of colon polyps Health Maintenance Due Date Last Done Comments Adult Wellness Visit 2014 *COPD SEVERITY VERIFIED BY PFT 08/28/2022 Albumin/Creatinine Ratio 10/08/2022 10/08/2021 COVID-19 Vaccine ( - 2022- season) 2022 02/19/2021, 06/19/2020, 05/22/2020 Influenza Vaccine [...] this encounter Medical Devices Implanted Type Area Health Program Manager Device Identifier Shelf Expiration Date Model / Serial / Lot Graft Hemasheild 20mm [id number] - [id number] Implanted:Qty: 1 on 01/13/2009 at OR [facility] N/A: Abdomen MI[employer] [id number] / / [id number] Clip Resolution 360 Endo 235cm - [id number] Implanted:Qty: 1 on 12/10/2022 by Lacie England MD at OR [facility] [employer] : ENDOSCOPY [id number] 07/02/2025 [id number] / / [id number] Clip Resolution 360 Endo 235cm - [id number] Implanted:Qty: 1 on 12/10/2022 by Lacie England MD at OR [facility] [employer] : ENDOSCOPY [id number] 07/02/2025 [id number] / / [id number] Stent Biliary Adult L30mm Dia1 - [id number] Implanted:Qty: 1 on 10/26/2023 by Lacie England MD at OR [facility] COOK : JOHANNA COURTNEY [id number] 06/27/2026 [id number] / / [id number] documented as of this encounter Advance Directives Documents on File Type Date Recorded 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 Care Teams Patient Companion Relationship Specialty Start Date End Date Jairo Kingston MD [address] [facility] [place] [phone] PCP - General 12/21/05 documented as of this encounter
--- OUTSIDE RECORDS SUMMARY | 2024-04-26 10:57 | External Medical Summary | Summary of Care ---
Author Name Unknown Organization [facility] Address [address] [place] [address] Phone [phone] Care Team Providers Care Car Cleaner Name Role Phone Jairo Kingston MD Primary Care Provider [phone] Reason for Visit * Reason Comments Chronic Kidney Disease (CKD) Encounter Details Date Type Department Care Team (Late st Contact Info) Description 12/13/2023 3:00 PM EDT Office Visit Nephrology, Yuliet Young [address] [place] [address] Reggie Azevedo MD [address] [facility] [place] [address] CKD (chronic kidney disease) stage 4, GFR 15-29 ml/min ([facility])*; HTN, goal below 140/80 Allergies Active Allergy Reactions Criticality Noted Date Comments Pavan Inhibitors Other (Please comment) 0 Hyperkalemia documented as of this encounter (statuses as of 12/13/2023) Medications Medication Sig Dispensed Refills Start Date [...] 0.1 % Nasal Solution (Astelin) Administer 1 Myrtle into nostril in the morning and 1 Myrtle before bedtime. 30 mL 1 01/11/2023 Active [...] (Eliquis)Indications :Recurrent cerebrovascular accidents (CVAs) ([facility]) Take 1 Tablet by mouth in the morning and 1 Tablet before bedtime. 180 Tablet 1 11/23/2023 Active Albuterol Sulfate HFA 108 (90 Base) MCG/ACT Inhalation Aerosol SolutionIndications: COPD, group D, by GOLD 2017 classification ([facility]) Inhale 2 Puffs by mouth every 4 hours as needed for Wheezing. 54 g 6 11/23/2023 Active Furosemide 20 MG Oral Tablet (Lasix) TAKE 1 TABLET BY MOUTH twice DAILY 180 Tablet 1 12/08/2023 Active Doxycycline Hyclate 100 MG Oral TabletIndications:CO PD, group D, by GOLD 2017 classification ([facility]) Take 1 Tablet by mouth in the morning and 1 Tablet before bedtime. For as needed Rescue kit use when directed to take for COPD exacerbation. 14 Tablet 12/09/2023 Active Additional Information Patient not taking.Reported on 12/13/2023 predniSONE 20 MG Oral Tablet (Deltasone)Indicatio ns:COPD, group D, by GOLD 2017 classification ([facility]) Take 2 Tablets by mouth in the morning. USE NEEDED FOR EXACERBATION. COPD RESCUE KIT. 10 Tablet 12/09/2023 Active Hospital, Clinic, or Other Facility Administered Medication Ordered Dose Route Frequency Start Date End Date Status Albuterol Sulfate (Proventil) (2.5 MG/3ML) 0.083% inhalation solution 2.5 mgIndications:COPD, group D, by GOLD 2017 classification ([facility]) 2.5 mg NEBULIZER PRN 10/03/2023 10/02/2024 Acti ve documented as of this encounter (statuses as of 12/13/2023) Active Problems Problem Noted Date Diagnosed Date Malnutrition of moderate degree 10/22/2023 SBO (small bowel obstruction) 10/21/2023 MAGDALENO (acute kidney injury) 10/21/2023 Chronic hypoxic respiratory failure, on home oxy gen therapy 10/21/2023 History of central retinal artery occlusion 04/0 [...] disease, stage IV Last Assessment & Plan: Norisaiahc lopieter History of supraventricular tachycardia 11/12/19 Idiopathic [...] as of this encounter (statuses as of 12/13/2023) Resolved Problems Problem Noted Date Diagnosed Date [...] ICD-10 update of inactive term ARTERIAL INSUFFICIENCY/ISCHE KAILEY, LEFT LITTLE FINGER 12/29/2001 07/28/2004 Tobacco use disorder 12/29/2001 010 GOUT NOS 07/18/2001 12/11/2015 Hemorrhoids, external without complications 01/16/2001 01/05/2017 PLANTAR FIBROMATOSIS 01/16/2001 005 Varicose vein of leg 017 HYPERLIPIDEMIA NEC-NOS 03/27 Overview: Per Lipid Taxonomy. documented as of this encounter (statuses as of 12/13/2023) Immunizations Name Administration Dates Next Due COVID-19 [...] Sign Reading Time Taken Comments Blood Pressure 146/76 12/13/2023 2:58 PM EDT Pulse 70 12/13/2023 2:58 PM EDT Temperature 36.8 C (98.3 F) 12/13/2023 2:52 PM ED T Respiratory Rate 20 12/13/2023 2:52 PM EDT Oxygen Saturation 94% 12/13/2023 2:52 PM EDT Inhaled Oxygen Concentration - - Weight 93.4 kg (206 lb) 12/13/2023 2:52 PM EDT Height - - Body Mass Index 33.25 11/08/2023 11:00 AM EDT documented in this encounter Functional Status Functional [...] as of this encounter Progress Notes * Reggie Azevedo MD - 12/13/2023 3:07 PM EDT Chief Complaint Patient presents with Chronic Kidney Disease (CKD) HPI: 73 year-old male who is here for evaluation chronic kidney disease stage 3 He has history of hypertension and takes medication and is controlled now. He has history of stroke in 2008 as well as AAA surgical repair in 2008, mild aortic stenosis, Hyperlipidemia, obstructive sleep apnea on night oxygen and hyperuricemia. But he does not have diabetes or history of childhood kidney disease. His mother had ESRD from unclear cause and was on dialysis in her early 80s. On extensive review of the EMR it appears there was somewhat abrupt decline after the AAA surgery where there was extensive clamping of the renal artery intraoperatively and this was told to the patient by the surgeon at the time. he had acute stroke in May 2020 in the posterior circulation Since last visit -----his health declined a lot in 2022 with multiple hospital admission. However for 2023 he has been significantly better with only 1 hospital admission in October 2023 for bowel obstruction. He did have acute kidney injury with a peak creatinine of 3.5. But by discharge on October 25 creatinine was down to 2.1 GFR 32 which is pretty much baseline for him. He is still on samedose of Lasix at 20 twice daily and with that edema has gone down quite a bit but he still has some. Aortic stenosis is getting worse and as of now there is no definitive plan for surgery. He has required multiple blood transfusion in the last 6 months and is currently followed by Hematology for ane kailey. He is now on oxygen 24 hours. He does have significantly worse exercise capacity than before. However at this very moment he feels is in the best shape he has been for the last 12 months. Has edema but lot less than before NSAID No Renal Stone No Herbal Medication No Urinary Complaints Yes, Nocturia. Current Outpatient Medications Medication Sig Dispense Refill [...] 0.1 % Nasal Solution (Astelin) Administer 1 Myrtle into nostril in the morning and 1 Myrtle before bedtime. 30 mL 1 Ezetimibe 10 [...] Ellipta 100-62.5-25 MCG/ACT Aerosol Powder Breath Activated (Qrqwzteccmt-Apybihfexmwf-Dfvezzavga) INHALE ONE PUFF BY MOUTH EVERY DAY [...] EXACERBATION. COPD RESCUE KIT. 10 Tablet 0 Doxycycline Hyclate 100 MG Oral Tablet Take 1 Tablet by mouth in the morning and 1 Tablet before bedtime. For as needed Rescue kit use when directed to take for COPD exacerbation. (Patient not taking: Reported on 12/13/2023) 14 Tablet 0 Current Facility-Administered Medications Medication Dose Route Frequency Provider Last Rate Last Admin Albuterol Sulfate (Proventil) (2.5 MG/3ML) 0.083% inhalation solution 2.5 mg 2.5 mg Nebulizer PRN Past Medical History: Diagnosis Date Abdominal aortic [...] 140/90 Recurrent cerebrovascular accidents (CVAs) ([facility]) 08/12/2022 Varicose vein of leg Past [...] performed by Jayna Montana MD at ENDOSCOPY [facility]: adenomatous polyp rpt c-scope in 3 years COLONOSCOPY, DIAGNOSTIC (RECTUM) 07/31/2014 Diverticulosis, adenomatous polyps, 3 yr repeat/COLONOSCOPY FLEXIBLE PROXIMAL DIAGNOSTIC performed by Jayna Montana MD at ENDOSCOPY [facility] COLONOSCOPY, DIAGNOSTIC (RECTUM) 08/02/2017 adenomatous polyps, diverticulosis, repeat 3 yrs/COLONOSCOPY FLEXIBLE PROXIMAL DIAGNOSTIC performedby Lacie England MD at ENDOSCOPY [facility] COLONOSCOPY, DIAGNOSTIC (RECTUM) 01/02/2021 benign adenomatous polyp, diverticulosis, repeat 5 yrs / [facility] COLONOSCOPY, GI REFERRAL OP 08/2004 polyps, repeat 08/23 EGD, FLEXIBLE, DIAGNOSTIC 02/20/2018 normal / [facility] EGD, FLEXIBLE, DIAGNOSTIC 11/04/2021 gastritis, gastric ulcer, repeat 3 mo / [facility] EGD, FLEXIBLE, DIAGNOSTIC 03/03/2022 normal egd, EGD, [...] performed by Lacie England MD at OR [facility] EGD, FLEXIBLE, W/CYST DRAINAGE N/A 12/10/2022 single non-bleeding angioectasia stomach/ESOPHAGOGASTRODUODENOSCOPY (EGD), FLEXIBLE, TRANSORAL, WITH DRAINAGE PSEUDOCYST performed by Lacie England MD at OR [facility] EGD, FLEXIBLE,W/ENDOSCOPIC US 11/04/2022 CBD dilation, CBD stones, angioectasias in the stomach / [facility] EGD, W/ENDOSCOPIC US N/A 12/10/2022 cholecystoduodenostomy performed using Axios stent/repeat 1 year/ESOPHAGOGASTRODUODENOSCOPY (EGD), FLEXIBLE, TRANSORAL, ENDOSCOPIC ULTRASOUND performed by Lacie England MD at OR [facility] ERCP 11/04/2022 choledocholithiasis, stent placed, repeat 3 mo / [facility] ERCP 11/26/2022 clots found in biliary tree, stent placed / [facility] ERCP, DIAGNOSTIC, SPECIMEN COLLECTION N/A 12/10/2022 one stent removed from CBD/ENDOSCOPIC RETROGRADE CHOLANGIOPANCREATOGRAPHY (ERCP) DIAGNOSTIC performed by Lacie England MD at OR [facility] MISCELLANEOUS ORDER ([facility] ONLY) 01/28/2010 Lysis of extensive adhesions, incisional hernia repair laparoscopically 01/28/10 [facility], Dr. 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 Employer: [employer] Employer: [id number] Social Needs Financial resource strain: Not on file Food insecurity: Worry: Never true Inability: Never true Transportation needs: Medical: Not on file Non-medical: Not on file Tobacco Use Smoking status: Former Smoker Packs/day: 0.00 Years: 47.00 Pack years: 0.00 Types: Cigars Last attempt to quit: 09/17/2018 Years since quittin.6 Smokeless tobacco: Never Used Substance and Sexual Activity Alcohol use: Yes Comment: 3 beer day, 12 on sat Drug use: No Sexual activity: Yes Partners: Female Lifestyle Physical activity: Days per week: Not on file Minutes per session: Not on file Stress: Not on file Relationships Social connections: Talks on phone: Not on file Gets together: Not on file Attends religion service: Not on file Active member of club or organization: Not on file Attends meetings of clubs or organizations: Not on file Relationship status: Not on file Intimate partner violence: Fear of current or ex partner: Not on file Emotionally abused: Not on file Physically abused: Not on file Forced sexual activity: Not on file Other Topics Concern Not on file Social History Narrative 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, live in [place], , 3 kids, works at [facility] [facility] (tommy) Ambulation: No assisted device Review of Systems: Twelve systems reviewed and negative OBJECTIVE: PHYSICAL EXAM: BP 146/76 (BP Site: Left Arm, BP Position: Sitting, BP Cuff Size: Large) | Pulse 70 | Temp 36.8 C(98.3 F) | Resp 20 | Wt 93.4 kg (206 lb) | SpO2 94% | BMI 33.25 kg/m | BSA 2.09 m General: alert, healthy and no distress Head: No masses, lesions, tenderness or abnormalities Neck: supple, no JVD Heart: regular rate & rhythm, no murmurs and no gallops Lungs: normal respiratory rate and rhythm, lungs clear to auscultation Abdomen: abdomen soft and non-tender Back: no costovertebral angle tenderness Extremities: no edema Neuro Exam: alert & oriented x 3 with fluent speech, no focal motor/sensory deficits Skin: skin color, texture, turgor are normal, no rashes or significant lesions BP Readings from Last 4 Encounters: 12/13/23 146/76 12/09/23 136/74 12/02/23 121/74 11/23/23 130/70 Wt Readings from Last 4 Encounters: 12/13/23 93.4 kg (206 lb) 11/08/23 89.2 kg (196 lb 9.6 oz) 10/27/23 78 kg (172 lb) 10/19/23 93.4 kg (206 lb) Estimated body mass index is 33.25 kg/m as calculated from the following: Height as of 11/08/23: 1.676 m (5' 6"). Weight as of this encounter: 93.4 kg (206 lb). NEPH-FLOW Latest Ref Rng & Units 02/27/2018 03/03/2018 03/27/2018 Bun 6 - 20 mg/dL 18 19 Cr 0.6 - 1.2 mg/dL 1.9 (H) 1.9 (H) eGFR >60 mL/min eGFR >60 35.2 (L) 35.6 (L) K 3.5 - 5.1 mmol/L 4.9 4.9 Hb 14.0 - 16.8 g/dL 8.5 (L) NEPH-FLOW Latest Ref Rng & Units 03/28/2018 05/02/2018 07/14/2018 Bun 6 - 20 mg/dL 14 Cr 0.6 - 1.2 mg/dL 1.4 (H) eGFR >60 mL/min eGFR >60 49.6 (L) K 3.5 - 5.1 mmol/L 4.9 Hb 14.0 - 16.8 g/dL 9.7 (L) 10.2 (L) 14.1 NEPH-FLOW Latest Ref Rng & Units 09/28/2018 02/06/2019 04/30/2019 Bun 6 - 20 mg/dL 31 (H) 19 31 (H) Cr 0.6 - 1.2 mg/dL 1.7 (H) 1.9 (H) 2.0 (H) eGFR >60 mL/min eGFR >60 41.1 (L) 35.9 (L) 32.3 (L) K 3.5 - 5.1 mmol/L 5.3 (H) 4.6 4.7 Hb 14.0 - 16.8 g/dL 14.8 NEPH-FLOW Latest Ref Rng & Units 04/30/2019 05/24/2019 02/08/2020 Bun 6 - 20 mg/dL 31 (H) 22 (H) 27 (H) Cr 0.6 - 1.2 mg/dL 2.0 (H) 2.0 (H) 2.2 (H) eGFR >60 mL/min eGFR >60 32.3 (L) 33.2 (L) 29.9 (L) K 3.5 - 5.1 mmol/L 4.7 4.7 4.7 Hb 14.0 - 16.8 g/dL 13.4 (L) 12.1 (L) NEPH-FLOW Latest Ref Rng & Units 06/16/2020 06/19/2020 09/16/2020 Bun 6 - 20 mg/dL BUN 6 - 20 mg/dL 21 (H) 24 (H) Cr 0.6 - 1.2 mg/dL CREATININE 0.6 - 1.2 mg/dL 1.7 (H) 1.7 (H) eGFR >60 mL/min eGFR >60 EGFR >=60.0 mL/min 39.4 (L) 38.6 (L) K 3.5 - 5.1 mmol/L POTASSIUM 3.5 - 5.1 mmol/L 4.2 4.2 Hb 14.0 - 16.8 g/dL HGB 14.0 - 16.8 g/dL 11.6 (L) 11.8 (L) 11.1 (L) NEPH-FLOW Latest Ref Rng & Units 12/16/2020 02/26/2021 06/03/2021 Bun 6 - 20 mg/dL 30 (H) Cr 0.6 - 1.2 mg/dL 2.0 (H) eGFR >=60 mL/min 32 (L) eGFR >60 K 3.5 - 5.1 mmol/L 4.3 Hb 14.0 - 16.8 g/dL 10.6 (L) 11.9 (L) 12.2 (L) Pro/Cr ratio <150 mg/g NEPH-FLOW Latest Ref Rng & Units 06/03/2021 10/08/2021 11/10/2021 Bun 6 - 20 mg/dL 24 (H) 29 (H) 20 Cr 0.6 - 1.2 mg/dL 1.9 (H) 2.4 (H) 2.1 (H) eGFR >=60 mL/min 37 (L) 28 (L) 32 (L) eGFR >60 K 3.5 - 5.1 mmol/L 4.6 4.4 4.4 Hb 14.0 - 16.8 g/dL 12.2 (L) 13.0 (L) 11.4 (L) Pro/Cr ratio <150 mg/g 1,429 (H) ASSESSMENT: CKD (chronic kidney disease) stage 4, GFR 15-29 ml/min ([facility]) (Primary) Steadily progressive CKD stage 3 and now more CKD stage 4. Cause is most likely related with hypertension and renal atherosclerosis. There was also significant abrupt decline in kidney function afterthe aortic aneurysm surgery in 2008 where he did have extensive intraoperative clamping of the renal artery. This is a fairly common side effect of the AAA surgery. He was actually told about this by the surgeon during that time. His mother had ESRD and was on dialysis around age 78 which also increases the odds of him developing a ESRD in the next 10 years. Explain the meaning of GFR. He does not take NSAIDs Advised to eat a low-salt diet. Did explain to the patient that his current medication list is appropriate for his level of GFR. Normal exam and normal symptom Labs done October 2022 which was on inpatient lab was reviewed and creatinine of 2.1 and a GFR of 32. He is now more consistently in stage IV CKD but more than that his overall health has declined a lotwith worse along capacity as well as overall exercise capacity. But fortunately his health has not declined any further than the last visit from February 2023. He seems pretty upbeat with his current health status and feels is doing much better than 2022 Will do labs as below next time he gets blood work for Hematology. This should be within the next few weeks - CBC WITH WBC DIFFERENTIAL; Future; Expected date: 12/13/2023 - PTH; Future; Expected date: 12/13/2023 - PROTEIN/ CREATININE RATIO, URINE; Future; Expected date: 12/13/2023 - RENAL FUNCTION PANEL; Future; Expected date: 12/13/2023 - URINALYSIS WITH MICROSCOPIC EXAM; Future; Expected date: 12/13/2023 - 25-HYDROXY VITAMIN D; Future; Expected date: 12/13/2023 - MAGNESIUM; Future; Expected date: 12/13/2023 HTN, goal below 140/80 Blood pressure is not perfectly normal but it is acceptable and at goal. He does monitors blood pressure at home and was 130 systolic earlier today Will continue current medication Follow Up: Return in about 6 months (around 06/14/2024) for Clinic Visit. | For: Clinic Visit | Check-out note: Labs in 1-2 weeks with hematology appt Reggie Azevedo MD documented in this encounter Nursing Notes * Hanna Varma RN - 12/13/2023 2:54 PM EDT Follow up visit today. States his bp was 130 at home. States the heat is bothering him today. Denies any swelling. Admitted to [facility] in October for shortness of breath. documented in this encounter Plan of Treatment Upcoming Encounters Date Type Department Care Team (Late st Contact Info) Description 12/14/2023 9:15 AM EDT Telemedicine Hematology/Oncology [facility] [place] [address] [place] [phone] Michael Snyder MD 200 [facility] [place] [address] 12/30/2023 2:00 PM EDT Hem/Onc Treatment Hematology/Oncology Treatment, [place] [address] [place] [phone] Hannah, Chair 1 Hem Onc Sc[facility] [address] [place] [address] 01/09/2024 1:00 PM EDT Home Visit [facility], [facility] [address] [facility] [place] [address] Heath Zhang PA-C [address] [place] [address] 01/18/2024 10:00 AM EDT Home Visit [facility], [facility] [address] [place] [address] Jenifer Linder RN [address] [facility] [place] [address] 01/19/2024 4:45 PM EDT Imaging Radiology [facility] [address] [facility] [address] [place] [address] 01/26/2024 9:50 AM EDT Office Visit Vascular Surgery, [address] [place] [address] Mikhail Suazo MD [address] [place] [address] 03/28/2024 3:20 PM EST Office Visit [facility] [address] [facility] [place] [phone] Shainka Fitzgerald DO [address] [place] [address] 04/03/2024 10:30 AM EST PulmDiagnostic Pulmonary Function Lab, [facility] [address] [facility] [place], [place] [address] [place], [address] [address] [facility] [place], [place] [address] 04/03/2024 11:00 AM EST PulmDiagnostic Pulmonary Function Lab, [facility] [address] [facility] [place] [address] [place], [place] [address] [facility] [place] [address] 04/03/2024 1:40 PM EST Office Visit Pulmonary Medicine, [facility] [address] [facility] [place], [place] [address] Devin Hodge MD [address] [facility] [place] [address] 04/24/2024 6:00 PM EST Office Visit [facility] [address] [place] [phone] Jairo Kingston MD [address], [place] [phone] 07/30/2024 4:00 PM EDT Office Visit Nephrology, [facility] [address] [place], [place] [address] Reggie Azevedo MD 200 [facility] [place], [place] [address] Scheduled Orders Name Type Priority Associated Diagnoses Orde r Schedule CBC WITH WBC DIFFERENTIAL Lab Routine CKD (chronic kidney disease) stage 4, GFR 15-29 ml/min ([facility]) Expected: 12/13/2023 (Approximate), Expires: 06/10/2024 PTH Lab Routine CKD (chronic kidney disease) stage 4, GFR 15-29 ml/min (HCC) Expected: 12/13/2023 (Approximate), Expires: 06/10/2024 PROTEIN/ CREATININE RATIO, URINE Lab Routine CKD (chronic kidney disease) stage 4, GFR 15-29 ml/min (HCC) Expected: 12/13/2023 (Approximate), Expires: 06/10/2024 RENAL FUNCTION PANEL Lab Routine CKD (chronic kidney disease) stage 4, GFR 15-29 ml/min (HCC) Expected: 12/13/2023 (Approximate), Expires: 06/10/2024 URINALYSIS WITH MICROSCOPIC EXAM Lab Routine CKD (chronic kidney disease) stage 4, GFR 15-29 ml/min (HCC) Expected: 12/13/2023 (Approximate), Expires: 06/10/2024 25-HYDROXY VITAMIN D Lab Routine CKD (chronic kidney disease) stage 4, GFR 15-29 ml/min (HCC) Expected: 12/13/2023 (Approximate), Expires: 06/10/2024 MAGNESIUM Lab Routine CKD (chronic kidney disease) stage 4, GFR 15-29 ml/min (HCC) Expected: 12/13/2023 (Approximate), Expires: 06/10/2024 Scheduled Procedures Name Priority Associated Diagnoses Date/Ti [...] this encounter Medical Devices Implanted Type Area Foil Operator Device Identifier Shelf Expiration Date Model / Serial / Lot Graft Hemasheild 20mm [id number] - [id number] Implanted:Qty: 1 on 01/13/2009 [place] [facility] [place] Abdomen MICROVASIVE [id number] / / [id number] Clip Resolution 360 Endo 235cm - [id number] Implanted:Qty: 1 on 12/10/2022 by Lacie England MD at OR [facility] [employer] : ENDOSCOPY [id number] 07/02/2025 [id number] / / [id number] Clip Resolution 360 Endo 235cm - [id number] Implanted:Qty: 1 on 12/10/2022 by Lacie England MD at OR [facility] [employer] : ENDOSCOPY [id number] 07/02/2025 [id number] / / [id number] Stent Biliary Adult L30mm Dia1 - [id number] Implanted:Qty: 1 on 10/26/2023 by Lacie England MD at OR [facility] COOK : JOHANNA COURTNEY [id number] 06/27/2026 [id number] / / [id number] documented as of this encounter Visit Diagnoses Diagnosis CKD (chronic kidney disease) stage 4, GFR 15-29 ml/min (HCC)- Primary Chronic kidney disease, Stage IV (severe) HTN, goal below 140/80 Unspecified essential hypertension documented in this encounter Advance Directives Documents on File Type Date Recorded Patient Tile Layer Helper Expl anation Power of V Belt Builder 07/30/2022 POWER OF A TTORNEY * Full [...] and were consensually agreed upon. Care Teams Car Cleaner Relationship Specialty Start Date End Date Jairo Kingston MD [address] [place] [address] PCP - General 12/21/05 documented as of this encounter
--- OUTSIDE RECORDS SUMMARY | 2024-04-26 10:57 | External Medical Summary | Summary of Care ---
Author Name Unknown Organization [facility] Address [address] [place] [address] Phone [phone] Care Team Providers Care Retail Mortgage Banker Name Role Phone Jairo Kingston MD Primary Care Provider +1- [phone] Reason for Visit * Reason Onset Date Comments Appointment 12/14/2023 Encounter Details Date Type Department Care Team (Late st Contact Info) Description 12/14/2023 Telephone [facility] [address] [place] [address] Jairo Kingston MD [address] [place] [address] Appointment Allergies Active Allergy Reactions [...] 0.1 % Nasal Solution (Astelin) Administer 1 [place] into nostril in the morning and 1 [place] before bedtime. 30 mL 1 01/11/2023 Active [...] disease, stage IV Last Assessment & Plan: Norvasc lopressor History of supraventricular tachycardia 11/12/19 Idiopathic chronic gout of foot without tophus 0 11/11/2022 Last Assessment & Plan: Allopurinol long-term No new attacks GINNY on CPAP 11/11/2022 [...] Encounter - Mine Borja OSA - 12/14/2023 3:44 PM EDT Was rescheduled for Tuesday and granddaughter is aware * Telephone Encounter - Mine Borja OSA [...] Care Team (Late st Contact Info) Description 12/16/2023 10:15 AM EDT Telemedicine Hematology/On[place] [address] [place] [phone] Michael Snyder MD [address] [place] [address] [place] [address] 12/30/2023 2:00 PM EDT Hem/Onc Treatment Hematology/Oncology [address], [address] [address] Hannah, Chair 1 Hem Onc [address] [address] 01/09/2024 1:00 PM EDT [facility] Visit [facility] [address] [place] [address] Heath Zhang PA-C [address] [place] [address] 01/18/2024 10:00 AM EDT Home Visit [facility] [address] [address] Jenifer Linder RN [address] [place] [address] 01/19/2024 4:45 PM EDT Imaging Radiology [facility] 132 [facility] [place] [address] 01/26/2024 9:50 AM EDT Office Visit Vascular Surgery, [place] [address] [place] [address] Mikhail Suazo MD [address] [facility] [address] 03/28/2024 3:20 PM EST Office Visit Sleep Disorders Ctr [facility] 132 [facility] [place] [address] Shanika Fitzgerald, 132 [facility] [place] [address] 04/03/2024 10:30 AM EST PulmDiagnostic Pulmonary Function Lab, [facility] 132 [facility] [place] [address] West, Pft 132 [facility] [place] [address] 04/03/2024 11:00 AM EST PulmDiagnostic Pulmonary Function Lab, [facility] 132 [facility] [place] [address] West, Pft 132 [facility] [place] [address] 04/03/2024 1:40 PM EST Office Visit Pulmonary Medicine, [facility] [address] [facility] [place] [address] Devin Hodge MD [address] [place] [address] 04/24/2024 6:00 PM EST Office Visit [address] [place] [address] Jairo Kingston MD [address] [place] [address] 07/30/2024 4:00 PM EDT Office Visit NephrologyYuliet [address] [place] [address] Reggie Azevedo MD 200 [facility] [place] [address] Scheduled Procedures Name Priority Associated Diagnoses Date/Ti [...] this encounter Medical Devices Implanted Type Area Security Administrator Device Identifier Shelf Expiration Date Model / Serial / Lot Graft Hemasheild 20mm [id number] - [id number] Implanted:Qty: 1 on 01/13/2009 at OR [facility] N/A: Abdomen MICROVASIVE [id number] / / [id number] Clip Resolution 360 Endo 235cm - [id number] Implanted:Qty: 1 on 12/10/2022 by Lacie England MD at OR [facility] [employer] : ENDOSCOPY [id number] 07/02/2025 [id number] / / [id number] Clip Resolution 360 Endo 235cm - [id number] Implanted:Qty: 1 on 12/10/2022 by Lacie England MD at OR [facility] [employer] : ENDOSCOPY [id number] 07/02/2025 [id number] / / [id number] Stent Biliary Adult L30mm Dia1 - [id number] Implanted:Qty: 1 on 10/26/2023 by Lacie England MD at OR [facility] : JOHANNA COURTNEY [id number] 06/27/2026 [id number] / / [id number] documented as of this encounter Advance Directives Documents on File Type Date Recorded Patient Supervisor Filtration Expl anation Power of Rice Drier 07/30/2022 POWER OF A TTORNEY * Full [...] and were consensually agreed upon. Care Teams Retail Mortgage Banker Relationship Specialty Start Date End Date Jairo Kingston MD [address] [place] [address] PCP - General 12/21/05 documented as of this encounter
--- OUTSIDE RECORDS SUMMARY | 2024-04-26 10:57 | External Medical Summary | Summary of Care ---
Author Name Unknown Organization [facility] Address [address] [place] [address] Phone [phone] Care Team Providers Care Operator Helper Name Role Phone Lalo Carias MD Primary Care Provider +1- [phone] Encounter Details Date Type Department Care Team (Late st Contact Info) Description 12/22/2023 Refill [facility] [address] [place] [address] Lalo Carias MD [address] [place] [address] Allergies Active Allergy Reactions Criticality Noted Date Comments Pavan Inhibitors Other (Please comment) 0 Hyperkalemia documented as of this encounter (statuses as of 12/22/2023) Medications Medication Sig Dispensed Refills Start Date [...] 0.1 % Nasal Solution (Astelin) Administer 1 [place] into nostril in the morning and 1 [place] before bedtime. 30 mL 1 3 Active [...] before bedtime. 180 Tablet 3 4 Active Metoprolol Tartrate 25 MG Oral Tablet (Lopressor) Take 1 Tablet by mouth in the morning and 1 Tablet before bedtime. 180 Tablet 3 4 12/22/19 24 Discontinu ed(Refill) Hospital, Clinic, or Other Facility Administered Medication Ordered Dose Route Frequency Start Date End Date Status Albuterol Sulfate (Proventil) (2.5 MG/3ML) 0.083% inhalation solution 2.5 mgIndications:COPD, group D, by GOLD 2017 classification ([facility]) 2.5 mg NEBULIZER PRN 10/03/2023 10/02/2024 Acti ve documented as of this encounter (statuses as of 12/22/2023) Active Problems Problem Noted Date Diagnosed Date [...] Assessment & Plan: Allopurinol long term care pharmacist No new attacks GINNY on CPAP 11/11/2022 [...] as of this encounter (statuses as of 12/22/2023) Resolved Problems Problem Noted Date Diagnosed Date [...] as of this encounter (statuses as of 12/22/2023) Immunizations Name Administration Dates Next Due COVID-19 [...] Telephone Encounter - Lalo Carias MD - 12/22/2023 4:50 PM EDTSigned Prescriptions: Disp Refills Metoprolol Tartrate 25 MG Oral Tablet (Lop*180 Ta*3 Sig: Take 1 Tablet by mouth in the morning and 1 Tablet before bedtime.Authorizing Provider: LALO CARIAS- * Telephone Encounter - Katerina Nixon LPN - 12/22/2023 2:43 PM EDT Patient is requesting a 90 day supply of Metoprolol. Order is pended, please sign if agreeable. documented in this encounter Plan of Treatment Upcoming Encounters Date Type Department Care Team (Late st Contact Info) Description 12/30/2023 2:00 PM EDT Hem/Onc Treatment Hematology/Oncology Treatment, [place] 200 [place] [address] Hannah, Chair 4 Hem Onc Scenery 200 [facility] [address] 01/09/2024 1:00 PM EDT [facility] Visit [place] [facility] [place], [facility] [address] [place] [address] Heath Zhang PA-C [address] [place] [address] 01/18/2024 10:00 AM EDT Home Visit [facility] [facility] [address] [place] [address] [address] Jenifer Linder, RN [address] [address] 01/19/2024 4:45 PM EDT Imaging Radiology [address] [place] [address] 01/26/2024 9:50 AM EDT Office Visit Vascular Surgery, [address] [place] [address] Mikhail Suazo MD 100 [address] [facility] [place] [address] 03/28/2024 3:20 PM EST Office Visit Sleep Disorders Ctr [facility] 132 [facility] [place] [phone] Shanika Fitzgerald, DO 132 [facility] [place], [place] [address] 04/03/2024 10:30 AM EST PulmDiagnostic Pulmonary Function Lab, [facility] 132 [facility] [place] [address] West, Pft 132 [facility] [place] [address] 04/03/2024 11:00 AM EST PulmDiagnostic Pulmonary Function Lab, [facility] 132 [facility] [address] West, Pft 132 [facility] [address] 04/03/2024 1:40 PM EST Office Visit Pulmonary Medicine, [facility] 132 [facility] [place] [address] Devin Hodge MD [address] [facility] [address] 04/24/2024 6:00 PM EST Office Visit [facility] [address] [facility], [place] [address] Lalo Carias MD [address] [place] [facility] [place] [address] 06/27/2024 2:45 PM EDT Office Visit Hematology/Oncology [facility] [place] 200 [facility] [place] [address] Michael Snyder MD 200 [facility] [place] [address] 07/30/2024 4:00 PM EDT Office Visit Nephrology, [facility] 200 [facility] [place] [address] Reggie Azevedo MD 200 [facility] [place] [address] Scheduled Procedures Name Priority Associated Diagnoses Date/Ti [...] this encounter Medical Devices Implanted Type Area Measurement And Verification Engineer Device Identifier Shelf Expiration Date Model / Serial / Lot Graft Hemasheild 20mm [id number] - [id number] Implanted:Qty: 1 on 01/13/2009 at OR [facility] N/A: Abdomen MICROVASIVE [id number] / / [id number] Clip Resolution 360 Endo 235cm - [id number] Implanted:Qty: 1 on 12/10/2022 by Lacie England MD at OR [facility] : ENDOSCOPY [id number] 07/02/2025 [id number] / / [id number] Clip Resolution 360 Endo 235cm - [id number] Implanted:Qty: 1 on 12/10/2022 by Lacie England MD at OR [facility] [employer] : ENDOSCOPY [id number] 07/02/2025 [id number] / / [id number] Stent Biliary Adult L30mm Dia1 - [id number] Implanted:Qty: 1 on 10/26/2023 by Lacie England MD at OR [facility] : JOHANNA COURTNEY [id number] 06/27/2026 [id number] / / [id number] documented as of this encounter Advance Directives Documents on File Type Date Recorded Patient Back Feeder Plywood Layup Line Expl anation Power of Retail Greeter 07/30/2022 POWER OF A TTORNEY * Full [...] and were consensually agreed upon. Care Teams Operator Helper Relationship Specialty Start Date End Date Lalo Carias MD [address] [place] [address] PCP - General 12/21/05 documented as of this encounter
--- OUTSIDE RECORDS SUMMARY | 2024-04-26 10:58 | External Medical Summary | Summary of Care ---
Author Name Unknown Organization [facility] Address [address] [place] [address] Phone [phone] Care Team Providers Care City Alderman Name Role Phone Jairo Kingston MD Primary Care Provider +1- [phone] Reason for Visit * Reason Comments [facility]: Maintenance Encounter Details Date Type Department Care Team (Late st Contact Info) Description 12/09/2023 4:00 PM EDT [facility] [address] [place] [address] Jenifer Linder RN [address] [place] [address] COPD, group D, by GOLD 2017 classification ([facility])* Allergies Active Allergy Reactions Criticality Noted Date Comments Pavan Inhibitors Other (Please comment) 0 Hyperkalemia documented as of this encounter (statuses as of 12/09/2023) Medications Medication Sig Dispensed Refills Start Date [...] 0.1 % Nasal Solution (Astelin) Administer 1 [place] into nostril in the morning and 1 [place] before bedtime. 30 mL 1 01/11/2023 Active [...] twice DAILY 180 Tablet 1 12/08/2023 Active Hospital, Clinic, or Other Facility Administered Medication Ordered Dose Route Frequency Start Date End Date Status Albuterol Sulfate (Proventil) (2.5 MG/3ML) 0.083% inhalation solution 2.5 mgIndications:COPD, group D, by GOLD 2017 classification ([facility]) 2.5 mg NEBULIZER PRN 10/03/2023 10/02/2024 Acti ve documented as of this encounter (statuses as of 12/09/2023) Active Problems Problem Noted Date Diagnosed Date [...] 11/11/2022 Last Assessment & Plan: Allopurinol intermediate frame tender No new attacks [...] as of this encounter (statuses as of 12/09/2023) Resolved Problems Problem Noted Date Diagnosed Date [...] as of this encounter (statuses as of 12/09/2023) Immunizations Name Administration Dates Next Due COVID-19 [...] money to buy more. Never true 10/10/19 Within the past 12 months, t he [...] Sign Reading Time Taken Comments Blood Pressure 136/74 12/09/2023 12:34 PM EDT Pulse 65 12/09/2023 12:34 PM EDT Temperature - - Respiratory Rate 18 12/09/2023 12:34 PM EDT Oxygen Saturation 94% 12/09/2023 12:34 PM EDT Inhaled Oxygen Concentration - - [...] Progress Notes * Jenifer Linder RN - 12/09/2023 8:36 AM EDT [facility] Visit Date: 12/09/2023 Time: 8:36 AM Name: Mikhail Fung : 1950 Current Concerns: Pt seen for return RNCM visit Started COPD rescue kit this week, on third day Spoke with dtr on phone and she reports exacerbation started after pt and went outside and who has dementia had locked the door and they were unable to get back on for some time- pt did nothave his oxygen on him at the time and also became worked up trying to get back into house. Dtr came right away but by that time he was able to rip open screen and get door unlocked. He did his nebulizer tx and applied oxygen but ever since has had increase in SOB and coughing episodes. Spoke about other issues with dtr on the phone They are interested in getting help in the home for pt and Pt has been trying to take care of with dementia but it has been progressing and pt's health has been declining Family wants to keep their parents at home as long as possible but cannot be there all the time Pt wants to continue to be with his as long as possible Will refer for SW to assist in cg services Discussed getting door alarms for 's wandering Pt interested in getting Life alert Referral placed for [facility] and visit scheduled for Tuesday to help with this and see if other resourcesneeded Dtr also reports pt is in the "donut hole" and sagrario is going to cost over $400- wondering if there is any help with this Reached out to [facility] and she reports that it may be beneficial to get pt signed up for PACENET, however, pt and make too much to be eligible TE sent to pharmacy reimbursement pool to see if there is any other assistance available Pt reports he feels much better with use of the rescue kit He still has a cough that is worse in the morning but feels it has improved He is not wearing the oxygen much, only when he feels he needs it but has not needed it the last couple days TE sent to Norbert Zhang PA-C to get COPD rescue kit refilled for future use Physical Exam: BP 136/74 | Pulse 65 | Resp 18 | SpO2 94% Pain 0 Physical Exam Constitutional: General: He is not in acute distress. Cardiovascular: Rate and Rhythm: Normal rate and regular rhythm. Pulses: Normal pulses. Heart sounds: Normal heart sounds. Pulmonary: Effort: Pulmonary effort is normal. Breath sounds: No wheezing or rales. Comments: Breath sounds slightly diminished thoughout Abdominal: Palpations: Abdomen is soft. Musculoskeletal: Right lower leg: Edema (trace) present. Left lower leg: Edema (trace) present. Skin: General: Skin is warm and dry. Neurological: Mental Status: He is alert. Problems/Symptoms: Review of Systems Constitutional: Negative. HENT: Negative. Respiratory: Positive for cough (at baseline, worse in am) and shortness of breath (CAMARENA - at baseline). Cardiovascular: Positive for leg swelling. Gastrointestinal: Negative. Genitourinary: Negative. Musculoskeletal: Positive for arthralgias. Neurological: Negative. Hematological: Negative. Psychiatric/Behavioral: Negative. Medication Reconciliation: (See medication list) Does patient take medications as ordered: Yes Patient Well Being: PHQ2/9: No questionnaires available. No change in living situation Denies falls [facility]-10 Completed this Visit: No. Routine visit and No falls since last visit Advanced Care Planning: POLST. Reinforcement/Education: COPD: Pt [...] in pm - does not often wear Rescue kit in the home for prn use CHW to assist w/ Life alert and other resources as needed SW referral to help with getting cg in the home Home Interventions Provided: Home Intervention: Other; eval Consulted PCP/Specialist Reinforced current Plan of Care, including self-management and medication regimen Patient's 'Red Flags': Increased SOB - using neb more often Increased weakness/fatigue 3. No bm in 2 days Patient Needs to Remember: Call [facility] at with any new or worsening health concerns or problems, red flag symptoms. Referrals Needed: MANJIT and Field Advisor Follow Up: Is there cellular connectivity/connectivity in the home? Yes Does the patient have internet in the home? Yes Patient encouraged to call the intake phone number for all urgent but not emergent issues. Is the patient new to [facility] within the last 30 days? No, Assess appropriateness for upcoming telehealth visits. Cancel telehealth visits & schedule home visit with care engineering team supervisor(s)as indicated. Provider is in agreement with Plan of Care: Yes Scheduled to follow up with patient in 3 days with CHW, next month with provider . Jenifer Linder RN 12/09/2023 8:36 AM documented in this encounter Plan of Treatment Upcoming Encounters Date Type Department Care Team (Late st Contact Info) Description 12/12/2023 2:30 PM EDT Home Visit Care Coordination and Integration [address] [place] [address] [facility] Plasterer Helper [address] [place] [address] 12/13/2023 3:00 PM EDT Office Visit Nephrology, [address] [place], [place] [address] Reggie Azevedo MD [address] [place], [place] [address] 12/14/2023 9:15 AM EDT Office Visit Hematology/Oncology [facility] [address] [place] [address] Michael Snyder MD [address] [place] [address] 12/30/2023 2:00 PM EDT Hem/Onc Treatment Hematology/Oncology Treatment, [place] 200 [facility] [address] Hannah, Chair 1 Hem Onc [facility] 200 [facility] [place] [address] 01/09/2024 1:00 PM EDT [facility] [address] [place] [address] Heath Zhang PA-C [address] [place] [address] 01/18/2024 10:00 AM EDT [facility], [facility] [address] [place] [address] Jenifer Linder RN [address] [place] [address] 01/19/2024 4:45 PM EDT Imaging Radiology [address] [place] [address] 01/26/2024 9:50 AM EDT Office Visit Vascular Surgery, [address] [place] [address] Mikhail Suazo MD [address] [place] [address] 03/28/2024 3:20 PM EST Office Visit [facility] Disorders Ctr [facility] [place] [address] Shanika Fitzgerald DO [address] [place] [address] 04/03/2024 10:30 AM EST PulmDiagnostic Pulmonary Function Lab, [facility] 132 [facility] [place] [address] West, P[address] [facility] [place] [address] 04/03/2024 11:00 AM EST PulmDiagnostic Pulmonary Function Lab, [facility] 132 [facility] [place] [address] West, [address] [facility] [place] [address] 04/03/2024 1:40 PM EST Office Visit Pulmonary Medicine, [facility] 132 [facility] [place] [address] Devin Hodge MD [address] [place] [address] 04/24/2024 6:00 PM EST Office Visit [facility] [address] [place] [address] Jairo Kingston MD [address] [place] [address] Scheduled Procedures Name Priority Associated Diagnoses Date/Ti me COLONOSCOPY FLEXIBLE PROXIMAL DIAGNOSTIC Recall History of colon polyps Health Maintenance Due Date Last Done Comments Adult Wellness Visit 2014 *COPD SEVERITY VERIFIED BY PFT 08/28/2022 Albumin/Creatinine Ratio 10/08/2022 10/08/2021 COVID-19 Vaccine ( season) 2022 02/19/2021, 06/19/2020, 05/22/2020 Influenza Vaccine (FLU shot) (#1) 2023 01/10/2023, 03/04/2022, 01/15/2021, Additional history exists Nephrology Referral 02/23/2024 02/22/2023 PTH 02/23/2024 02/22/2023, 12/17, 06/03/2021, Additional history exists GFR 04/27/2024 10/26/2023, 0 12/2023, 10/24/2023, Additional history exists Depression Screening 10/09/2024 10/10/2023 AAA Monitoring 10/20/2024 10/21/2023, 0 06/2023, 01/27/2023, Additional history exists Phosphate 10/21/2024 10/22/2023, 10/2022, 12/09/2022, Additional history exists O2 ASSESSMENT COMPLETED IN PAST YEAR FOR COPD 10/25/2024 10/26/2023 Hgb 12/01/2024 12/02/2023, 10/16, 10/26/2023, Additional history exists Colonoscopy 01/02/2026 01/02/2021, 07/17, [...] this encounter Medical Devices Implanted Type Area Entry Level Receptionist Device Identifier Shelf Expiration Date Model / Serial / Lot Graft Hemasheild 20mm [id number] - [id number] Implanted:Qty: 1 on 01/13/2009 at OR [facility] N/A: Abdomen MICROVASIVE [id number] / / [id number] Clip Resolution 360 Endo 235cm - [id number] Implanted:Qty: 1 on 12/10/2022 by Lacie England MD at OR [facility] [employer] : ENDOSCOPY [id number] 07/02/2025 [id number] / / [id number] Clip Resolution 360 Endo 235cm - [id number] Implanted:Qty: 1 on 12/10/2022 by Lacie England MD at OR [facility] [employer] : ENDOSCOPY [id number] 07/02/2025 [id number] / / [id number] Stent Biliary Adult L30mm Dia1 - [id number] Implanted:Qty: 1 on 10/26/2023 by Lacie England MD at OR [facility] COOK : JOHANNA COURTNEY [id number] 06/27/2026 [id number] / / [id number] documented as of this encounter Visit Diagnoses Diagnosis COPD, group D, by GOLD 2017 classification (HCC)- Primary documented in this encounter Advance Directives Documents on File Type Date Recorded Patient Rehabilitation Caseworker Expl anation Power of Staple Processing Machine Operator 07/30/2022 POWER OF A TTORNEY [...] and were consensually agreed upon. Care Teams City Alderman Relationship Specialty Start Date End Date Jairo Kingston MD [address] [facility] [address] PCP - General 12/21/05 documented as of this encounter
--- OUTSIDE RECORDS SUMMARY | 2024-04-26 10:58 | External Medical Summary | Summary of Care ---
Author Name Unknown Organization [facility] Address [address] [place] [address] Phone [phone] Care Team Providers Care Firebrick Layer Name Role Phone Jairo Kingston MD Primary Care Provider +1- [phone] Reason for Visit * Reason Onset Date Comments Appointment 12/09/2023 Encounter Details Date Type Department Care Team (Late st Contact Info) Description 12/09/2023 Telephone Hematology/Oncology [facility] [address] [place] [address] Services, Scheduling [address] [place] [address] Appointment Allergies Active Allergy Reactions Criticality Noted [...] 0.1 % Nasal Solution (Astelin) Administer 1 Beaumont into nostril in the morning and 1 Beaumont before bedtime. 30 mL 1 01/11/2023 Active [...] (Eliquis)Indications :Recurrent cerebrovascular accidents (CVAs) ([facility]) Take 1 Tablet by mouth in the morning and 1 Tablet before bedtime. 180 Tablet 1 11/23/2023 Active Albuterol Sulfate HFA 108 (90 Base) MCG/ACT Inhalation Aerosol SolutionIndications: COPD, group D, by GOLD 2017 classification ([facility]) Inhale 2 Puffs by mouth every 4 hours as needed for Wheezing. 54 g 6 11/23/2023 Active Furosemide 20 MG Oral Tablet (Lasix) TAKE 1 TABLET BY MOUTH twice DAILY 180 Tablet 1 12/08/2023 Active Doxycycline Hyclate 100 MG Oral TabletIndications:CO PD, group D, by GOLD 2017 classification ([facility]) Take 1 Tablet by mouth in the morning and 1 Tablet before bedtime. For as needed Rescue kit use when directed to take for COPD exacerbation. 14 Tablet 12/09/2023 Active predniSONE 20 MG Oral Tablet (Deltasone)Indicatio ns:COPD, group D, by GOLD 2017 classification ([facility]) Take 2 Tablets by mouth in the morning. USE NEEDED FOR EXACERBATION. COPD RESCUE KIT. 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 * Telephone Encounter - Amparo Seth OSA - 12/09/2023 3:50 PM EDT Pt granddaughter Tati calling asking if pt appointment on 12/13 can be changed to video call as they do not have transportation due to both pt and having dementia. documented in this encounter Plan of Treatment Upcoming Encounters Date Type Department Care Team (Late st Contact Info) Description 12/13/2023 3:00 PM EDT Office Visit Nephrology, [facility] [address] [facility] [place] [address] Reggie Azevedo MD [address] [facility] [place] [address] 12/14/2023 9:15 AM EDT Telemedicine Hematology/Oncology [facility] [address] [facility] [place] [phone] Michael Snyder MD 200 [facility] [place] [address] 12/30/2023 2:00 PM EDT Hem/Onc Treatment Hematology/Oncology Treatment, [place] 200 [facility], [place] [phone] Hannah, Chair 1 Hem Onc [address] [place], [place] [address] 01/09/2024 1:00 PM EDT Home Visit [facility] [address] [place] [address] Heath Zhang PA-C 132 [place] [address] 01/18/2024 10:00 AM EDT Home Visit [facility] [address] [place] [address] Jenifer Linder, RN [address] [place] [address] 01/19/2024 4:45 PM EDT Imaging Radiology [address] 132 [facility] [place] [address] 01/26/2024 9:50 AM EDT Office Visit Vascular Surgery, [address] [place] [address] Mikhail Suazo MD [address] [facility] [place] [address] 03/28/2024 3:20 PM EST Office Visit Sleep Disorders Ctr [facility] 132 [facility] [place] [phone] Shanika Fitzgerald DO 132 [facility] [place] [address] 04/03/2024 10:30 AM EST PulmDiagnostic Pulmonary Function Lab, [facility] 132 [facility] [place] [address] [address], Pft 132 [facility] [place] [address] 04/03/2024 11:00 AM EST PulmDiagnostic Pulmonary Function Lab, [facility] 132 [facility] [place] [address] [address], [address]ft 132 [facility] [place] [address] 04/03/2024 1:40 PM EST Office Visit Pulmonary Medicine, [facility] 132 [facility] [place] [address] Devin Hodge MD [address] [place] [address] 04/24/2024 6:00 PM EST Office Visit [address], [place] [phone] Jairo Kingston MD [address] [place] [address] Scheduled Procedures Name Priority Associated Diagnoses Date/Ti [...] 01/27/2023, Additional history exists Phosphate 10/21/2024 10/22/2023, 1110/2022, 12/09/2022, Additional history exists O2 ASSESSMENT COMPLETED [...] this encounter Medical Devices Implanted Type Area Operations Executive Device Identifier Shelf Expiration Date Model / Serial / Lot Graft Hemasheild 20mm [id number] - [id number] Implanted:Qty: 1 on 01/13/2009 [place] [facility] [place]: Abdomen MICROVASIVE [id number] / / [id number] Clip Resolution 360 Endo 235cm - [id number] Implanted:Qty: 1 on 12/10/2022 by Lacie England MD at OR [facility] [employer] : ENDOSCOPY [id number] 07/02/2025 [id number] / / [id number] Clip Resolution 360 Endo 235cm - [id number] Implanted:Qty: 1 on 12/10/2022 by Lacie England MD at OR [facility] [employer] : ENDOSCOPY [id number] 07/02/2025 [id number] / / [id number] Stent Biliary Adult L30mm Dia1 - [id number] Implanted:Qty: 1 on 10/26/2023 by Lacie England MD at OR [facility] COOK : JOHANNA COURTNEY [id number] 06/27/2026 [id number] / / [id number] documented as of this encounter Advance Directives Documents on File Type Date Recorded Patient Software Applications Designer Expl anation Power of Stadium Attendant 07/30/2022 POWER OF A TTORNEY * Full [...] and were consensually agreed upon. Care Teams Firebrick Layer Relationship Specialty Start Date End Date Jairo Kingston MD [address] [place] [address] PCP - General 12/21/05 documented as of this encounter
--- OUTSIDE RECORDS SUMMARY | 2024-04-26 10:58 | External Medical Summary | Summary of Care ---
Author Name Unknown Organization [facility] Address [address] [place] [address] Phone [phone] Care Team Providers Care User Interface Artist Name Role Phone Jairo Kingston MD Primary Care Provider +1- [phone] Reason for Visit * Reason Comments [facility]: Maintenance Encounter Details Date Type Department Care Team (Late st Contact Info) Description 11/23/2023 10:00 AM EDT [facility] [address] [place] [address] Jenifer Linder RN [address] [place] [address] Allergies Active Allergy Reactions Criticality Noted Date [...] 0.1 % Nasal Solution (Astelin) Administer 1 Falun into nostril in the morning and 1 Falun before bedtime. 30 mL 1 01/11/2023 Active [...] morning and 1 Tablet before bedtime. Active Hospital, Clinic, or Other Facility Administered [...] 10/10/2023 Does the household have a re lar [...] Sign Reading Time Taken Comments Blood Pressure 130/70 11/23/2023 10:50 AM EDT Pulse 70 11/23/2023 10:50 AM EDT Temperature 36.6 C (97.8 F) 11/23/2023 10:50 AM E DT Respiratory Rate 18 11/23/2023 10:50 AM EDT Oxygen Saturation 96% 11/23/2023 10:50 AM EDT Inhaled Oxygen Concentration - - [...] Progress Notes * Jenifer Linder RN - 11/23/2023 10:38 AM EDT [facility] Visit Date: 11/23/2023 Time: 10:38 AM Name: Mikhail Fung : 1950 Current Concerns: Pt seen for return RNCM visit He reports he is feeling pretty good today He did use his rescue kit for increased SOB a few weeks ago Reports bowels have been moving regularly If he feels constipated, uses Miralax with relief Reports stool color has been brown color - no blood or black stools noted Denies abdominal pain Denies any other issues at this time Reports SOB and cough has been at baseline Using oxygen prn Reports cough continues to be worse in am but is using nebulizer and cough improves throughout the day Physical Exam: BP 130/70 | Pulse 70 | Temp 36.6 C (97.8 F) | Resp 18 | SpO2 96% Pain 0 Physical Exam Constitutional: General: He is not in acute distress. Cardiovascular: Rate and Rhythm: Normal rate and regular rhythm. Pulses: Normal pulses. Heart sounds: Normal heart sounds. Pulmonary: Effort: Pulmonary effort is normal. Comments: Lungs sounds diminished at bases Abdominal: General: Bowel sounds are normal. Palpations: Abdomen is soft. Musculoskeletal: Left lower leg: Edema (trace) present. Skin: General: Skin is warm and dry. Neurological: Mental Status: He is alert and oriented to person, place, and time. Problems/Symptoms: Review of Systems Constitutional: Negative. HENT: Negative. Respiratory: Positive for cough (chronic, at baseline) and shortness of breath ([facility] - at baseline). Gastrointestinal: Negative. Genitourinary: Negative. Musculoskeletal: Positive for arthralgias. Skin: Negative. Psychiatric/Behavioral: Negative. Medication Reconciliation: (See medication list) Does patient take medications as ordered: Yes Patient Well Being: PHQ2/9: No questionnaires available. No change in living situation Denies falls [facility]-10 Completed this Visit: No. Routine visit and [...] kit in the home for prn use Home Interventions Provided: Home Intervention: Other; eval Reinforced current Plan of Care, including self-management and medication regimen Patient's 'Red Flags': Increased SOB - using neb more often Increased weakness/fatigue Feeling more dizzy Patient Needs to Remember: Call [facility] at with any new or worsening health [...] visits & schedule home visit with care steamer tender(s)as indicated. Provider is in agreement with Plan of Care: Yes Scheduled to follow up with patient in 3 weeks. Jenifer Linder RN 11/23/2023 10:38 AM documented in this encounter Plan of Treatment Upcoming Encounters Date Type Department Care Team (Latest Contact Info) Description 12/09/2023 4:00 PM EDT [facility] [address] [place] [address] Jenifer Linder RN 132 [place] [address] COPD, group D, by GOLD 2017 classification ([facility])* 12/12/2023 2:30 PM EDT Home Visit [facility] [address] Summer Nixon, Community Health Automatic Buffer [address] [facility], [place] [address] 12/13/2023 3:00 PM EDT Office Visit Nephrology, [facility] [address] [place], [place] [address] Reggie Azevedo MD 200 [place] [address] 12/14/2023 9:15 AM EDT Office Visit Hematology/Oncology [facility] [address] [place] [phone] Michael Snyder MD 200 [facility] [place] [address] 12/30/2023 2:00 PM EDT Hem/Onc Treatment Hematology/Oncology Treatment, [place] [address] [place], [place] [phone] Hannah, Chair [address] [facility] 200 [place] [address] 01/09/2024 1:00 PM EDT [facility] Visit [facility] [place], [facility] [address] [place] [address] Heath Zhang PA-C 132 [place] [address] 01/18/2024 10:00 AM EDT [facility] Visit [facility] 132 [place] [address] Jenifer Linder, RN [address] [place] [address] 01/19/2024 4:45 PM EDT Imaging Radiology [address] [place] [address] 01/26/2024 9:50 AM EDT Office Visit Vascular Surgery, [address] [place] [address] Mikhail Suazo MD [address] [place] [address] 03/28/2024 3:20 PM EST Office Visit Sleep Disorders Ctr [facility] 132 [facility] [place] [phone] Shanika Fitzgerald, DO 132 [facility] [place] [address] 04/03/2024 10:30 AM EST PulmDiagnostic Pulmonary Function Lab, [facility] [address] [facility] [place] [address] [place], [place] [facility] [address] 04/03/2024 11:00 AM EST PulmDiagnostic Pulmonary Function Lab, [facility] 132 [facility] [address] [place], [address] 132 [facility] [address] 04/03/2024 1:40 PM EST Office Visit Pulmonary Medicine, [facility] 132 [place] [address] Devin Hodge MD [address] [facility] [address] 04/24/2024 6:00 PM EST Office Visit [facility] [address] [place] [phone] Jairo Kingston MD [address] [place] [address] Scheduled Procedures Name Priority Associated Diagnoses Date/Ti [...] this encounter Medical Devices Implanted Type Area System Safety Engineer Device Identifier Shelf Expiration Date Model / Serial / Lot Graft Hemasheild 20mm [id number] - [id number] Implanted:Qty: 1 on 01/13/2009 at OR [facility] N/A: Abdomen MICROVASIVE [id number] / / [id number] Clip Resolution 360 Endo 235cm - [id number] Implanted:Qty: 1 on 12/10/2022 by Lacie England MD at OR [facility] : ENDOSCOPY [id number] 07/02/2025 [id number] / / [id number] Clip Resolution 360 Endo 235cm - [id number] Implanted:Qty: 1 on 12/10/2022 by Lacie England MD at OR [facility] : ENDOSCOPY [id number] 07/02/2025 [id number] / / [id number] Stent Biliary Adult L30mm Dia1 - [id number] Implanted:Qty: 1 on 10/26/2023 by Lacie England MD at OR [facility] COOK : JOHANNA COURTNEY [id number] 06/27/2026 [id number] / / [id number] documented as of this encounter Advance Directives Documents on File Type Date Recorded Patient Reading Instructor Expl anation Power of Quality Assurance 07/30/2022 POWER OF A TTORNEY * Full [...] and were consensually agreed upon. Care Teams User Interface Artist Relationship Specialty Start Date End Date Jairo Kingston MD [address] [place] [address] PCP - General 12/21/05 documented as of this encounter"
--- OUTSIDE RECORDS SUMMARY | 2024-04-26 10:58 | External Medical Summary | Summary of Care ---
Author Name Unknown Organization [facility] Address [address] [place] [address] Phone [phone] Care Team Providers Care Substance Abuse Specialist Name Role Phone Jairo Kingston MD Primary Care Provider +1- [phone] Encounter Details Date Type Department Care Team (Late st Contact Info) Description 12/12/2023 2:30 PM EDT Home Visit Care Coordination and Integration [address] [place], [place] [phone] Summer Nixon Community Health Food Stand Manager [address] [place], [place] [phone] Allergies Active Allergy Reactions Criticality Noted Date Comments Pavan Inhibitors Other (Please comment) 0 Hyperkalemia documented as of this encounter (statuses as of 12/12/2023) Medications Medication Sig Dispensed Refills Start Date [...] 0.1 % Nasal Solution (Astelin) Administer 1 Rudolph into nostril in the morning and 1 Rudolph before bedtime. 30 mL 1 01/11/2023 Active [...] Tablet (Eliquis)Indications :Recurrent cerebrovascular accidents (CVAs) ([facility]) Take 1 Tablet by mouth in the morning and 1 Tablet before bedtime. 180 Tablet 1 11/23/2023 Active Albuterol Sulfate HFA 108 (90 Base) MCG/ACT Inhalation Aerosol SolutionIndications: COPD, group D, by GOLD 2017 classification ([facility]) Inhale 2 Puffs by mouth every 4 hours as needed for Wheezing. 54 g 6 11/23/2023 Active Furosemide 20 MG Oral Tablet (Lasix) TAKE 1 TABLET BY MOUTH twice DAILY 180 Tablet 1 12/08/2023 Active Doxycycline Hyclate 100 MG Oral TabletIndications:CO PD, group D, by GOLD 2017 classification ([facility]) Take 1 Tablet by mouth in the morning and 1 Tablet before bedtime. For as needed Rescue kit use when directed to take for COPD exacerbation. 14 Tablet 12/09/2023 Active predniSONE 20 MG Oral Tablet (Deltasone)Indicatio ns:COPD, group D, by GOLD 2017 classification ([facility]) Take 2 Tablets by mouth in the morning. USE NEEDED FOR EXACERBATION. COPD RESCUE KIT. 10 Tablet 12/09/2023 Active Hospital, Clinic, or Other Facility Administered Medication Ordered Dose Route Frequency Start Date End Date Status Albuterol Sulfate (Proventil) (2.5 MG/3ML) 0.083% inhalation solution 2.5 mgIndications:COPD, group D, by GOLD 2017 classification ([facility]) 2.5 mg NEBULIZER PRN 10/03/2023 10/02/2024 Acti ve documented as of this encounter (statuses as of 12/12/2023) Active Problems Problem Noted Date Diagnosed Date [...] as of this encounter (statuses as of 12/12/2023) Resolved Problems Problem Noted Date Diagnosed Date Resolved Date COPD, group C, by GOLD 2017 classification 12/27/2022 04/28/2023 Overview: Per COPD GOLD Classification Anemia due to stage 3b chronic kidney disease 07/02/04 2311/11/2022 Overview: Per CKD protocol COPD with acute [...] as of this encounter (statuses as of 12/12/2023) Immunizations Name Administration Dates Next Due COVID-19 [...] as of this encounter Progress Notes * Summer Nixon, Community Health Food Stand Manager - 12/12/2023 4:31 PM EDT Telemedicine visit: No Community Health Food Stand Manager (MANJIT) documentation:CHW met with pt, his spouse Michell and their daughterSalina Estevez was on the phone during the visit. CHW was sent to assist pt with resources for a medical alert device. CHW contacted the pt's insurance provider to determine if a medical alert device would be covered through them, however, their particular proga did not cover this service CHW provided pt with a handbook from [facility] with phone numbers, web sites and information for the alert systems. 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 He was asking about getting assistance to provide care for her. CHW contact the office of aging, provided the intake information and they will call the daughter, Salina, to schedule an appointment to determine eligibility for services. Pt also stated he was interested in home delivered meals and signing up for the [facility] Transportation services. CHW spoke to pt about PACE/PACENET program to help with prescription medication payments. Pt's daughter's email was provided to the program to get pt and his spouse signed up. CHW educated pt and his daughter about the homeowner/rent rebate that is provided by [place] to eligible residents to provide rebate from homeowner property taxes. CHW left the application with the pt for his daughter to complete. CHW provided family with the phone number to contact the CHW, made sure they had the number to contact the CM and encouraged them to reach out as needed. documented in this encounter Plan of Treatment Upcoming Encounters Date Type Department Care Team (Late st Contact Info) Description 12/13/2023 3:00 PM EDT Office Visit Nephrology, [address] [place] [address] Reggie Azevedo MD [address] [place] [address] [place] [address] 12/14/2023 9:15 AM EDT Office Visit Hematology/Oncology [facility] [address] [place] [address] Michael Snyder MD [address] [place] [address] [place] [address] 12/30/2023 2:00 PM EDT Hem/Onc Treatment Hematology/Oncology Treatment, [place] [facility] [phone] aHnnah, Chair 1 Hem Onc [place] [address] [address] [place] [address] 01/09/2024 1:00 PM EDT [facility] [place] [address] Heath Zhang PA-C [address] [place] [address] 01/18/2024 10:00 AM EDT [facility] Visit [facility] [place], [facility] [address] [place] [address] Jenifer Linder, RN [address] [place] [address] 01/19/2024 4:45 PM EDT Imaging Radiology [facility] 1st [facility] 132 [facility] [address] [place] [address] 01/26/2024 9:50 AM EDT Office Visit Vascular Surgery, [address] [place] [address] Mikhail Suazo MD [address] [place] [address] 03/28/2024 3:20 PM EST Office Visit Sleep Disorders Ctr [facility] 132 [facility] [place] [phone] Shanika Fitzgerald DO 132 [facility] [place] [address] 04/03/2024 10:30 AM EST PulmDiagnostic Pulmonary Function Lab, [facility] 132 [facility] [place] [address] [address], Pft 132 [facility] [place] [address] 04/03/2024 11:00 AM EST PulmDiagnostic Pulmonary Function Lab, [facility] 132 [facility] [place] [address] [address], Pft 132 [facility] [place] [address] 04/03/2024 1:40 PM EST Office Visit Pulmonary Medicine, [facility] [address] [place] [address] Devin Hodge MD [address] [place] [address] 04/24/2024 6:00 PM EST Office Visit [facility] [address] [facility] [address] Jairo Kingston MD [address] [facility] [address] Scheduled Procedures Name Priority Associated Diagnoses Date/Ti [...] this encounter Medical Devices Implanted Type Area Seeing Eye Dog Trainer Device Identifier Shelf Expiration Date Model / Serial / Lot Graft Hemasheild 20mm [id number] - [id number] Implanted:Qty: 1 on 01/13/2009 at OR [facility] N/A: Abdomen MICROVASIVE [id number] / / [id number] Clip Resolution 360 Endo 235cm - [id number] Implanted:Qty: 1 on 12/10/2022 by Lacie England MD at OR [facility] [employer] : ENDOSCOPY [id number] 07/02/2025 [id number] / / [id number] Clip Resolution 360 Endo 235cm - [id number] Implanted:Qty: 1 on 12/10/2022 by Lacie England MD at OR [facility] : ENDOSCOPY [id number] 07/02/2025 [id number] / / [id number] Stent Biliary Adult L30mm Dia1 - [id number] Implanted:Qty: 1 on 10/26/2023 by Lacie England MD at OR [facility] COOK : JOHANNA COURTNEY [id number] 06/27/2026 [id number] / / [id number] documented as of this encounter Advance Directives Documents on File Type Date Recorded Patient Head Waiter/Waitress Expl anation Power of Chief Operator Lock Tender 07/30/2022 POWER OF A TTORNEY * [...] and were consensually agreed upon. Care Teams Substance Abuse Specialist Relationship Specialty Start Date End Date Jairo Kingston MD [address] [facility] [place] [address] PCP - General 12/21/05 documented as of this encounter
--- OUTSIDE RECORDS SUMMARY | 2024-04-26 10:58 | External Medical Summary | Summary of Care ---
Author Name Unknown Organization [facility] Address [address] [place] [address] Phone [phone] Care Team Providers Care Consulting Sales Manager Name Role Phone Jairo Kingston MD Primary Care Provider +1- [phone] Reason for Visit * Reason Onset Date Comments Appointment 12/09/2023 Encounter Details Date Type Department Care Team (Late st Contact Info) Description 12/09/2023 Telephone Hematology/Oncology [facility] [address] [place] [facility] [place] [address] Services, Scheduling [address] [place] [address] Appointment Allergies Active Allergy Reactions Criticality Noted [...] 0.1 % Nasal Solution (Astelin) Administer 1 [place] into nostril in the morning and 1 [place] before bedtime. 30 mL 1 01/11/2023 Active [...] Oral Tablet (Eliquis)Indications :Recurrent cerebrovascular accidents (CVAs) ([facility]) Take 1 Tablet by mouth in the morning and 1 Tablet before bedtime. 180 Tablet 1 11/23/2023 Active Albuterol Sulfate HFA 108 (90 Base) MCG/ACT Inhalation Aerosol SolutionIndications: COPD, group D, by GOLD 2017 classification ([facility]) Inhale 2 Puffs by mouth every 4 hours as needed for Wheezing. 54 g 6 11/23/2023 Active Furosemide 20 MG Oral Tablet (Lasix) TAKE 1 TABLET BY MOUTH twice DAILY 180 Tablet 1 12/08/2023 Active Doxycycline Hyclate 100 MG Oral TabletIndications:CO PD, group D, by GOLD 2017 classification ([facility]) Take 1 Tablet by mouth in the morning and 1 Tablet before bedtime. For as needed Rescue kit use when directed to take for COPD exacerbation. 14 Tablet 12/09/2023 Active predniSONE 20 MG Oral Tablet (Deltasone)Indicatio ns:COPD, group D, by GOLD 2017 classification ([facility]) Take 2 Tablets by mouth in the morning. USE NEEDED FOR EXACERBATION. COPD RESCUE KIT. 10 Tablet 12/09/2023 Active Hospital, Clinic, or Other Facility Administered Medication Ordered Dose Route Frequency Start Date End Date Status Albuterol Sulfate (Proventil) (2.5 MG/3ML) 0.083% inhalation solution 2.5 mgIndications:COPD, group D, by GOLD 2017 classification ([facility]) 2.5 mg NEBULIZER PRN 10/03/2023 10/02/2024 [...] 3:00 PM EDT Office Visit Nephrology, [facility] [address] [place] [address] Reggie Azevedo MD [address] [place], [place] [address] 12/14/2023 9:15 AM EDT Office Visit Hematology/Oncology [facility] [place] [address] [place] [phone] Michael Snyder MD [address] [place] [address] 12/30/2023 2:00 PM EDT Hem/Onc Treatment Hematology/Oncology Treatment, [place] [address] [facility] [address] [place], [place] [phone] Hannah, Chair 1 Hem Onc [facility] [address] [facility] [place], [place] [address] 01/09/2024 1:00 PM EDT [facility] Visit [facility] [place], [facility] [place] [address] [place] [address] Heath Zhang PA-C [address] [facility] [place] [address] 01/18/2024 10:00 AM EDT [facility] Visit [facility] [place], [facility] [place] [address] [place] [address] Jenifer Linder RN [address] [place] [address] 01/19/2024 4:45 PM EDT Imaging Radiology [address] [place] [address] 01/26/2024 9:50 AM EDT Office Visit Vascular Surgery, [address] [place] [phone] Mikhail Suazo MD [address] [place] [address] 03/28/2024 3:20 PM EST Office Visit Sleep Disorders Ctr [facility] 132 [facility] [place] [phone] Shanika Fitzgerald, DO 132 [facility] [place] [address] 04/03/2024 10:30 AM EST PulmDiagnostic Pulmonary Function Lab, [facility] 132 [facility] [place] [address] West, Pft 132 [facility] [place] [address] 04/03/2024 11:00 AM EST PulmDiagnostic Pulmonary Function Lab, [facility] 132 [facility] [place] [address] West, P[address] [facility] [place] [address] 04/03/2024 1:40 PM EST Office Visit Pulmonary Medicine, [address] [place] [address] Devin Hodge MD [address] [facility] [address] 04/24/2024 6:00 PM EST Office Visit [facility] [address] [place] [phone] Jairo Kingston MD [address] [place], [place] [phone] Scheduled Procedures Name Priority Associated Diagnoses Date/Ti me COLONOSCOPY FLEXIBLE PROXIMAL DIAGNOSTIC Recall History of colon polyps Health Maintenance Due Date Last Done Comments Adult Wellness Visit 2014 *COPD SEVERITY VERIFIED BY PFT 08/28/2022 Albumin/Creatinine Ratio 10/08/2022 10/08/2021 COVID-19 Vaccine ( - season) 2022 02/19/2021, 06/19/2020, 05/22/2020 Influenza Vaccine [...] this encounter Medical Devices Implanted Type Area Sweet Goods Machine Operator Device Identifier Shelf Expiration Date Model / Serial / Lot Graft Hemasheild 20mm [id number] - [id number] Implanted:Qty: 1 on 01/13/2009 [place] [facility] [place] Abdomen MICROVASIVE [id number] / / [id number] Clip Resolution 360 Endo 235cm - [id number] Implanted:Qty: 1 on 12/10/2022 by Lacie England MD at OR [facility] [employer] : ENDOSCOPY [id number] 07/02/2025 [id number] / / [id number] Clip Resolution 360 Endo 235cm - [id number] Implanted:Qty: 1 on 12/10/2022 by Lacie England MD at OR [facility] [employer] : ENDOSCOPY [id number] 07/02/2025 [id number] / / [id number] Stent Biliary Adult L30mm Dia1 - [id number] Implanted:Qty: 1 on 10/26/2023 by Lacie England MD at OR [facility] COOK : JOHANNA COURTNEY [id number] 06/27/2026 [id number] / / [id number] documented as of this encounter Advance Directives Documents on File Type Date Recorded Patient Irish Moss Operator Expl anation Power of Rice Farmer 07/30/2022 POWER OF A TTORNEY * Full [...] and were consensually agreed upon. Care Teams Consulting Sales Manager Relationship Specialty Start Date End Date Jairo Kingston MD [address] [facility] [place] [address] PCP - General 12/21/05 documented as of this encounter
--- OUTSIDE RECORDS SUMMARY | 2024-04-26 10:58 | External Medical Summary | Summary of Care ---
Author Name Unknown Organization [facility] Address [address] [place] [address] Phone [phone] Care Team Providers Care Investigation Manager Name Role Phone Jairo Kingston MD Primary Care Provider +1- [phone] Reason for Visit * Reason Onset Date Comments Medication Refill 12/09/2023 Encounter Details Date Type Department Care Team (Late st Contact Info) Description 12/09/2023 Refill [facility], [facility] [address] [place] [address] Jenifer Linder, RN [address] [place] [address] COPD, group D, by GOLD 2017 classification ([facility])* Allergies Active Allergy Reactions Criticality [...] 0.1 % Nasal Solution (Astelin) Administer 1 [place] into nostril in the morning and 1 [place] before bedtime. 30 mL 1 3 Active [...] for COPD exacerbation. 14 Tablet 4 Active predniSONE 20 MG Oral Tablet (Deltasone)Indicatio ns:COPD, group D, by GOLD 2017 classification ([facility]) Take 2 Tablets by mouth in the morning. USE NEEDED FOR EXACERBATION. COPD RESCUE KIT. 10 Tablet 4 Active predniSONE 20 MG Oral Tablet (Deltasone) Take 2 Tablets by mouth in the morning for 5 days. USE NEEDED FOR EXACERBATION. COPD RESCUE KIT. 10 Tablet 4 12/09/19 24 Discontinu ed(Refill) Doxycycline Hyclate 100 MG [...] Telephone Encounter - Lacie Rodriguez PA-C - 12/09/2023 12:44 PM EDTSigned Prescriptions: Disp Refills Doxycycline Hyclate 100 MG Oral Tablet 14 Tab*0 Sig: Take 1 Tablet by mouth in the morning and 1 Tablet before bedtime. For as needed Rescue kit use when directed to take for COPD exacerbation. Authorizing Provider: LACIE RODRIGUEZ predniSONE 20 MG Oral Tablet (Deltasone) 10 Tab*0 Sig: Take 2 Tablets by mouth in the m orning. USE NEEDED FOR EXACERBATION. COPD RESCUE KIT. Authorizing Provider: LACIE RODRIGUEZ * Telephone Encounter - Jenifer Linder RN - 12/09/2023 12:28 PM EDT Pt used COPD rescue kit and is need of a refill Please send refill to [facility]. Thank you! documented in this encounter Plan of Treatment Upcoming Encounters Date Type Department Care Team (Latest Contact Info) Description 12/09/2023 4:00 PM EDT Home Visit [place] [facility] [address] [place] [address] Jenifer Linder RN [address] [place] [address] COPD, group D, by GOLD 2017 classification ([facility])* 12/12/2023 2:30 PM EDT Home Visit Care Coordination [facility] Integration [address] [place] [address] Summer Nixon, [facility] Fisher [address] [place] [address] 12/13/2023 3:00 PM EDT Office Visit Nephrology, [facility] 200 [place] [address] Reggie Azevedo MD [address] [place], [place] [address] 12/14/2023 9:15 AM EDT Office Visit [facility] [address] [place] [phone] Michael Snyder MD [address] [place] [address] 12/30/2023 2:00 PM EDT Hem/Onc Treatment Hematology/Oncology Treatment, [place] [address] [place], [place] [phone] Hannah, Chair 1 Hem Onc [facility] [address] [facility] [place] [address] 01/09/2024 1:00 PM EDT [facility], [facility] [address] [place] [address] Lacie Rodriguez PA-C [address] [place] [address] 01/18/2024 10:00 AM EDT [facility] Visit [facility] [place], [facility] [address] [place] [address] Jenifer Linder RN [address] [place] [address] 01/19/2024 4:45 PM EDT Imaging Radiology [address] [place] [address] 01/26/2024 9:50 AM EDT Office Visit Vascular Surgery, [address] [place] [address] Mikhail Suazo MD [address] [place] [address] 03/28/2024 3:20 PM EST Office Visit Sleep Disorders Ctr [facility] [address] [facility] [place] [phone] Shanika Fitzgerald DO [address] [place] [address] 04/03/2024 10:30 AM EST PulmDiagnostic Pulmonary Function Lab, [facility] 132 [facility] [place] [address] West, Pft [address] [facility] [place] [address] 04/03/2024 11:00 AM EST PulmDiagnostic Pulmonary Function Lab, [facility] 132 [facility] [place] [address] West, Pft [address] [facility] [place] [address] 04/03/2024 1:40 PM EST Office Visit Pulmonary Medicine, [facility] 132 [facility] [place] [address] Devin Hodge MD [address] [place] [address] 04/24/2024 6:00 PM EST Office Visit [facility] [address] [facility] [phone] Jairo Kingston MD [address] [place] [facility] [place] [address] Scheduled Procedures Name Priority Associated Diagnoses Date/Ti [...] this encounter Medical Devices Implanted Type Area Vacuum Technician Device Identifier Shelf Expiration Date Model / Serial / Lot Graft Hemasheild 20mm [id number] - [id number] Implanted:Qty: 1 on 01/13/2009 at [place] [facility] [place]/A: Abdomen MICROVASIVE [id number] / / [id number] Clip Resolution 360 Endo 235cm - [id number] Implanted:Qty: 1 on 12/10/2022 by Lacie England MD at OR [facility] [employer] : ENDOSCOPY [id number] 07/02/2025 [id number] / / [id number] Clip Resolution 360 Endo 235cm - [id number] Implanted:Qty: 1 on 12/10/2022 by Lacie England MD at OR [facility] [employer] : ENDOSCOPY [id number] 07/02/2025 [id number] / / [id number] Stent Biliary Adult L30mm Dia1 - [id number] Implanted:Qty: 1 on 10/26/2023 by Laice England MD at OR [facility] COOK : JOHANNA COURTNEY [id number] 06/27/2026 [id number] / / [id number] documented as of this encounter Visit Diagnoses Diagnosis COPD, group D, by GOLD 2017 classification (HCC)- Primary COPD, group D, by GOLD 2017 classification (HCC)- Primary documented in this encounter Advance Directives Documents on File Type Date Recorded Patient Agent Broker Expl anation Power of Certification Technician 07/30/2022 POWER OF A TTORNEY * [...] and were consensually agreed upon. Care Teams Investigation Manager Relationship Specialty Start Date End Date Jairo Kingston MD [address] [facility] [place] [address] PCP - General 12/21/05 documented as of this encounter
--- OUTSIDE RECORDS SUMMARY | 2024-04-26 10:58 | External Medical Summary | Summary of Care ---
Author Name Unknown Organization [facility] Address [address] [place] [address] Phone [phone] Care Team Providers Care Junior Php Developer Name Role Phone Lalo Carias MD Primary Care Provider +1- [phone] Reason for Visit * Reason Comments Medication Refill Encounter Details Date Type Department Care Team (Late st Contact Info) Description 12/08/[address] [facility] [address] [place] [address] Lalo Carias MD [address] [place] [address] Allergies Active Allergy Reactions Criticality Noted Date Comments Pavan Inhibitors Other (Please comment) 0 Hyperkalemia documented as of this encounter (statuses as of 12/08/2023) Medications Medication Sig Dispensed Refills Start Date [...] 0.1 % Nasal Solution (Astelin) Administer 1 [place] into nostril in the morning and 1 [place] before bedtime. 30 mL 1 3 Active [...] Oral Tablet (Eliquis)Indications :Recurrent cerebrovascular accidents (CVAs) ([facility]) Take 1 Tablet by mouth in the morning and 1 Tablet before bedtime. 180 Tablet 1 4 Active Albuterol Sulfate HFA 108 (90 Base) MCG/ACT Inhalation Aerosol SolutionIndications: COPD, group D, by GOLD 2017 classification ([facility]) Inhale 2 Puffs by mouth every 4 hours as needed for Wheezing. 54 g 6 4 Active Doxycycline Hyclate 100 MG Oral Tablet Take 1 Tablet by mouth in the morning and 1 Tablet before bedtime. For as needed Rescue kit use when directed to take for COPD exacerbation. 14 Tablet 4 Active Furosemide 20 MG Oral Tablet (Lasix) TAKE 1 TABLET BY MOUTH twice DAILY 180 Tablet 1 4 Active Furosemide 20 MG Oral Tablet (Lasix) TAKE 1 TABLET BY MOUTH twice DAILY 90 Tablet 3 3 12/08/19 24 Discontinu ed(Refill) Hospital, Clinic, or Other Facility Administered Medication Ordered Dose Route Frequency Start Date End Date Status Albuterol Sulfate (Proventil) (2.5 MG/3ML) 0.083% inhalation solution 2.5 mgIndications:COPD, group D, by GOLD 2017 classification ([facility]) 2.5 mg NEBULIZER PRN 10/03/2023 10/02/2024 Acti ve documented as of this encounter (statuses as of 12/08/2023) Active Problems Problem Noted Date Diagnosed Date [...] as of this encounter (statuses as of 12/08/2023) Resolved Problems Problem Noted Date Diagnosed Date [...] as of this encounter (statuses as of 12/08/2023) Immunizations Name Administration Dates Next Due COVID-19 [...] 10/10/2023 Transportation Needs Answer Date Record ed READ ONLY Do you have troubl e getting a ride to medical visits or work? Never True 10/10/2023 Does your family have a hard [...] place to sleep at night? No 10/10/2023 READ ONLY Do you think you a re at risk of becoming homeless? No 10/10/2023 Does your family worry about paying [...] encounter Miscellaneous Notes * Telephone Encounter - Joaquin Garcia [facility] - 12/08/2023 10:15 AM EDTSigned Prescriptions: Disp Refills Furosemide 20 MG Oral Tablet (Lasix) 180 Ta*1 Sig: TAKE 1 TABLET BY MOUTH twice DAILY Authorizing Provider: LALO CARIAS Ordering User: JOAQUIN WHEELER * Telephone Encounter - Joaquin Garcia [facility] - 12/08/2023 10:13 AM EDT Pending Prescriptions: Disp Refills Furosemide 20 MG Oral Tablet (Lasix) 90 Tab*3 Sig: TAKE 1 TABLET BY MOUTH twice DAILY Last Visit: 11/08/2023 (in office), 02/09/2023 (telemedicine) Next Visit: 04/24/2024 If no future appointments scheduled, and last appointment is greater than a year ago, please schedule patient for a follow-up appointment Last date the medication was ordered: 01/18/23 Pharmacy: [facility] Is this request for a controlled substance? No Urine Drug Screen:No results found. However, due to the size of the patient record, not all encounters were searched. Please check Results Review for a complete set of results. Patient Phone Numbers Labs: Lab Results Component Value Date/Time CREAT 2.1 (H) 10/26/2023 05:45 AM CREAT 1.61 (A) 06/10/2020 12:00 AM CREAT 2.2 (H) 02/08/2020 09:48 AM POTASSIUM 3.5 10/26/2023 05:45 AM POTASSIUM 3.2 (A) 06/10/2020 12:00 AM POTASSIUM 4.7 02/08/2020 09:48 AM POTASSIUM 4.5 01/17/1996 08:30 AM TSH 2.93 09/16/2020 11:29 AM TSH 2.41 02/08/2020 09:48 AM LDLCALC 58 03/18/2022 01:04 PM LDLCALC 78 02/06/2019 10:11 AM LDLCALC 147. (H) 01/17/1996 08:30 AM LDLDIRECT 77 04/30/2019 10:18 AM ALT 11 10/24/2023 05:19 AM ALT 17 02/08/2020 09:48 AM documented in this encounter Plan of Treatment Upcoming Encounters Date Type Department Care Team (Late st Contact Info) Description 12/09/2023 4:00 PM EDT Home Visit [facility] [address] [place] [address] Jenifer Linder RN [address] [place] [address] 12/13/2023 3:00 PM EDT Office Visit Nephrology, [facility] [address] [place], [place] [address] Reggie Azevedo MD [address] [place] [address] 12/14/2023 9:15 AM EDT Office Visit Hematology/Oncology [facility] [place] [address] [place] [phone] Michael Snyder MD [address] [place], [place] [address] 12/30/2023 2:00 PM EDT Hem/Onc Treatment Hematology/Oncology Treatment, [place] [address] [place], [place] [phone] Hannah, Chair 1 Hem Onc [facility] 200 [facility] [place], [place] [address] 01/09/2024 1:00 PM EDT [facility], [facility] [address] [place] [address] Heath Zhang PA-C [address] [place] [address] 01/18/2024 10:00 AM EDT [facility] Visit [facility] [place], [facility] [address] [place] [address] Jenifer Linder, RN [address] [place] [address] 01/19/2024 4:45 PM EDT Imaging Radiology [address], [place] [address] [place] [address] 01/26/2024 9:50 AM EDT Office Visit Vascular Surgery, [address] [place] [address] Mikhail Suazo MD [address] [facility] [place], [place] [address] 03/28/2024 3:20 PM EST Office Visit [facility] Disorders Ctr [facility] 132 [facility] [place] [phone] Shanika Fitzgerald, DO 132 [facility] [place] [address] 04/03/2024 10:30 AM EST PulmDiagnostic Pulmonary Function Lab, [facility] 132 [facility] [place] [address] West, Pft 132 [facility] [place] [address] 04/03/2024 11:00 AM EST PulmDiagnostic Pulmonary Function Lab, [facility] 132 [facility] [place] [address] West, [address]ft [address] [facility] [place] [address] 04/03/2024 1:40 PM EST Office Visit Pulmonary Medicine, [facility] 132 [facility] [place] [address] Devin Hodge MD [address] [place] [address] 04/24/2024 6:00 PM EST Office [facility] [address] [facility] [phone] Lalo Carias MD [address] [facility] [place] [id number] Scheduled Procedures Name Priority Associated Diagnoses Date/Ti [...] this encounter Medical Devices Implanted Type Area Retail Key Holder Device Identifier Shelf Expiration Date Model / Serial / Lot Graft Hemasheild 20mm [id number] - [id number] Implanted:Qty: 1 on 01/13/2009 at [place] [facility] [place] N/A: Abdomen MICROVASIVE [id number] / / [id number] Clip Resolution 360 Endo 235cm - [id number] Implanted:Qty: 1 on 12/10/2022 by Lacie England MD at OR [facility] [employer] : ENDOSCOPY [id number] 07/02/2025 [id number] / / [id number] Clip Resolution 360 Endo 235cm - [id number] Implanted:Qty: 1 on 12/10/2022 by Lacie England MD at OR [facility] [employer] : ENDOSCOPY [id number] 07/02/2025 [id number] / / [id number] Stent Biliary Adult L30mm Dia1 - [id number] Implanted:Qty: 1 on 10/26/2023 by Lacie England MD at OR [facility] COOK : JOHANNA COURTNEY [id number] 06/27/2026 [id number] / / [id number] documented as of this encounter Advance Directives Documents on File Type Date Recorded Patient Breast Worker Expl anation Power of Fish Packer 07/30/2022 POWER OF A TTORNEY * Full [...] and were consensually agreed upon. Care Teams Junior Php Developer Relationship Specialty Start Date End Date Lalo Carais MD [address] [facility] [place] [address] PCP - General 12/21/05 documented as of this encounter
--- OUTSIDE RECORDS SUMMARY | 2024-04-26 10:59 | External Medical Summary ---
Author Name Unknown Address Unknown Organization K01:[facility] [place] - [address] [place] [address] Laboratory Report Ordering Provider Test Date Status LOLLY ALEGRIA 12/02/2023 13:54:06 Final Observation Date Value Abnormality Reference (Units ) Status Ferritin 12/02/2023 13:54:06 110 30-400 (ng /mL) Final Performing Location [facility] - [address] [place] [address]
--- OUTSIDE RECORDS SUMMARY | 2024-04-26 10:59 | External Medical Summary | Summary of Care ---
Author Name Unknown Organization [facility] Address [address] [place] [address] Phone [phone] Care Team Providers Care Telex Operator Name Role Phone Jairo Kingston MD Primary Care Provider +1- [phone] Reason for Visit * Reason Onset Date Comments Hospital Follow-Up Patient is he re today due to hospital follow up from blockage in his intestines Patient states no concerns Patient states he feels good since then Hospital Follow-Up 11/24/2023 Encounter Details Date Type Department Care Team (Late st Contact Info) Description 11/08/2023 11:00 AM EDT [facility] [address] [place] [address] Jairo Kingston MD [address] [place] [address] SBO (small bowel obstruction) ([facility])*; Chronic hypoxic respiratory failure, on home oxygen therapy (HCC); Chronic obstructive pulmonary disease with acute lower respiratory infection (HCC); Hospital discharge follow-up Allergies Active Allergy Reactions Criticality Noted Date Comments Pavan Inhibitors Other (Please comment) 0 Hyperkalemia documented as of this encounter (statuses as of 11/24/2023) Medications Medication Sig Dispensed Refills Start Date [...] 0.1 % Nasal Solution (Astelin) Administer 1 Apison into nostril in the morning and 1 Apison before bedtime. 30 mL 1 3 Active [...] morning and 1 Tablet before bedtime. Active Doxycycline Hyclate 100 MG Oral Tablet Take 1 Tablet by mouth in the morning and 1 Tablet before bedtime. For as needed Rescue kit use when directed to take for COPD exacerbation. Active Albuterol Sulfate HFA 108 (90 Base) MCG/ACT Inhalation Aerosol Solution Inhale 2 Puffs by mouth every 4 hours as needed for Wheezing. 54 g 6 3 11/23/19 24 Discontinu ed(Refill) Apixaban 2.5 MG Oral Tablet (Eliquis)Indications :Recurrent cerebrovascular accidents (CVAs) ([facility]) Take 1 Tablet by mouth in the morning and 1 Tablet before bedtime. 180 Tablet 1 4 11/23/19 24 Discontinu ed(Refill) Hospital, Clinic, or Other Facility Administered Medication Ordered Dose Route Frequency Start Date End Date Status Albuterol Sulfate (Proventil) (2.5 MG/3ML) 0.083% inhalation solution 2.5 mgIndications:COPD, group D, by GOLD 2017 classification ([facility]) 2.5 mg NEBULIZER PRN 10/03/2023 10/02/2024 Acti ve documented as of this encounter (statuses as of 11/24/2023) Active Problems Problem Noted Date Diagnosed Date [...] stage IV Last Assessment & Plan: Brina lopieter History of supraventricular tachycardia 11/12/19 Idiopathic chronic gout of foot without tophus 0 11/11/2022 Last Assessment & Plan: Allopurinol residential No new attacks GINNY on CPAP 11/11/2022 [...] as of this encounter (statuses as of 11/24/2023) Resolved Problems Problem Noted Date Diagnosed Date [...] as of this encounter (statuses as of 11/24/2023) Immunizations Name Administration Dates Next Due COVID-19 [...] Sign Reading Time Taken Comments Blood Pressure 122/62 11/08/2023 11:00 AM EDT Pulse 85 11/08/2023 11:00 AM EDT Temperature 36.8 C (98.2 F) 11/08/2023 11:00 AM E DT Respiratory Rate 16 11/08/2023 11:00 AM EDT Oxygen Saturation 96% 11/08/2023 11:00 AM EDT Inhaled Oxygen Concentration - - Weight 89.2 kg (196 lb 9.6 oz) 11/08/2023 11:00 AM EDT Height 167.6 cm (5' 6") 11/08/2023 11:00 AM EDT Body Mass Index 31.73 11/08/2023 11:00 AM EDT documented in this [...] as of this encounter Progress Notes * Jairo Kingston MD - 11/08/2023 11:21 AM EDT Subjective: Mikhail Fung is a 73 year old male here today for Chief Complaint Patient presents with Hospital Follow-Up Patient is here today due to hospital follow up from blockage in his intestines Patient states no concerns Patient states he feels good since then Hospital Follow-Up Patient presents for hospital follow-up. He was admitted initially to [facility] but then transferred to [facility] for an admission 10/21/23 - 10/27/23. Admitted with small-bowel obstruction. Was seen by General Surgery. Transfer was in case he needed surgery given his other medical comorbidities. He improved with bowel rest and an NG tube. Did not require surgery. Is feeling better and diet essentially back to normal. Since d/c, no evidence for GI bleeding. Pt does have chronic shortness of breath but states that he has had some increased shortness of breath over the last month - even while in hospital. Cough is productive of thick mucus. No fever. Past Medical History: Diagnosis Date Abdominal aortic [...] goal below 140/90 Recurrent cerebrovascular accidents (CVAs) ([facility]) 08/12/2022 Varicose vein of leg Past Surgical [...] performed by Jayna Montana MD at ENDOSCOPY [facility] COLONOSCOPY, DIAGNOSTIC (RECTUM) 08/02/2017 adenomatous polyps, diverticulosis, repeat 3 yrs/COLONOSCOPY FLEXIBLE PROXIMAL DIAGNOSTIC performedby Lacie England MD at ENDOSCOPY [facility] COLONOSCOPY, DIAGNOSTIC (RECTUM) 01/02/2021 benign [...] performed by Lacie England MD at OR [facility] EGD, FLEXIBLE, W/CYST DRAINAGE N/A 12/10/2022 single non-bleeding angioectasia stomach/ESOPHAGOGASTRODUODENOSCOPY (EGD), FLEXIBLE, TRANSORAL, WITH DRAINAGE PSEUDOCYST performed by Lacie England MD at OR [facility] EGD, FLEXIBLE,W/ENDOSCOPIC US 11/04/2022 CBD dilation, CBD stones, angioectasias in the stomach / [facility] EGD, W/ENDOSCOPIC US N/A 12/10/2022 cholecystoduodenostomy performed using Axios stent/repeat 1 year/ESOPHAGOGASTRODUODENOSCOPY (EGD), FLEXIBLE, TRANSORAL, ENDOSCOPIC ULTRASOUND performed by Lacie England MD at OR [facility] ERCP 11/04/2022 choledocholithiasis, stent placed, repeat 3 mo / [facility] ERCP 11/26/2022 clots found in biliary tree, stent placed / [facility] ERCP, DIAGNOSTIC, SPECIMEN COLLECTION N/A 12/10/2022 one stent removed from CBD/ENDOSCOPIC RETROGRADE CHOLANGIOPANCREATOGRAPHY (ERCP) DIAGNOSTIC performed by Lacie England MD at OR [facility] MISCELLANEOUS ORDER ([facility] ONLY) 01/28/2010 Lysis of extensive adhesions, incisional hernia repair laparoscopically 01/28/10 [facility], Dr. Desouza REMOVE LUMBAR SPINE LAMINA, 3+ SEGS 01/2000 Lumbar Disk Excision lL/4 and L 5 fusion with rods REMOVE TONSILS & ADENOIDS, UNDER 12 Tonsillectomy/Adenoids,<12 Y/O TEAR DUCT SYSTEM SURGERY [facility] arlyn Review of patient's allergies indicates: Allergen [...] 0.1 % Nasal Solution (Astelin) Administer 1 Apison into nostril in the morning and 1 Apison before bedtime. 30 mL 1 Furosemide 20 [...] Ellipta 100-62.5-25 MCG/ACT Aerosol Powder Breath Activated (Hxayohspiki-Frnubmuvoslp-Tndvgcrzdl) INHALE ONE PUFF BY MOUTH EVERY DAY [...] the morning and 1 Tablet before bedtime. Doxycycline Hyclate 100 MG Oral Tablet Take 1 Tablet by mouth in the morning and 1 Tablet before bedtime. For as needed Rescue kit use when directed to take for COPD exacerbation. Apixaban 2.5 MG Oral Tablet (Eliquis) Take 1 Tablet by mouth in the morning and 1 Tablet before bedtime. 180 Tablet 1 Albuterol Sulfate HFA 108 (90 Base) MCG/ACT Inhalation Aerosol Solution Inhale 2 Puffs by mouth every 4 hours as needed for Wheezing. 54 g 6 Current Facility-Administered Medications Medication Dose Route Frequency Provider Last Rate Last Admin Albuterol Sulfate (Proventil) (2.5 MG/3ML) 0.083% inhalation solution 2.5 mg 2.5 mg Nebulizer PRN Objective: BP 122/62 | Pulse 85 | Temp 36.8 C (98.2 F) (Tympanic) | Resp 16 | Ht 1.676 m (5' 6") | Wt 89.2 kg (196 lb 9.6 oz) | SpO2 96% | BMI 31.73 kg/m | BSA 2.04 m GEN: NAD HEENT: PERRLA, EOMI, conjunctiva not injected or icteric. EACs clear of obstruction, inflammation, drainage. TM's normal without erythema or lesion. No fluid or infection seen in middle ear space. Nares clear of obstruction, lesion, drainage. OP without tonsillar enlargement or exudate, MMM, no lesion. CHEST: scattered rhonchi. CV: RRR ABD: Soft, NT/ND, No HSM, NABS EXT: No c,c,e Assessment and Plan: SBO (small bowel obstruction) (HCC) (Primary) -resolved. Pt aware of symptoms to watch for Chronic hypoxic respiratory failure, on home oxygen therapy (HCC) Chronic obstructive pulmonary disease with acute lower respiratory infection (HCC) Discussed use of "rescue kit" with abx and steroid. Call for new or worsening symptoms. Hospital discharge follow-up - DISCH MED RECON CUR MED LIS 40 min with pt and chart review. Jairo Kingston MD documented in this encounter Nursing Notes * aGbriel Kelly MED ASSIST - 11/08/2023 11:03 AM EDT The patient has been properly identified by confirmation of name and date of . Chief Complaint Patient presents with Hospital Follow-Up Patient is here today due to hospital follow up from blockage in his intestines Patient states no concerns Patient states he feels good since then documented in this encounter Plan of Treatment Upcoming Encounters Date Type Department Care Team (Late st Contact Info) Description 12/02/2023 2:00 PM EDT Hem/Onc Treatment Hematology/Oncology Treatment, [place] [address] [facility] [place] [phone] Hannah, Chair 9 Hem Onc [address] [place] [address] 12/13/2023 3:00 PM EDT Office Visit Nephrology, [facility] Hannah [facility] [place] [address] Reggie Azevedo MD [address] [place] [address] [place] [address] 12/14/2023 9:15 AM EDT Office Visit Hematology/Oncology [facility] Hannah [address] [place] [phone] Michael Snyder MD [address] [place] [address] 01/09/2024 1:00 PM EDT [facility], [facility] 132 [facility] [place] [address] Heath Zhang PA-C 132 [facility] [place] [address] 01/18/2024 10:00 AM EDT Home Visit [facility], [facility] 132 [facility] [place] [address] Jenifer Linder RN [facility] [place] [address] 01/19/2024 4:45 PM EDT Imaging Radiology [facility]st [facility] 132 [facility] [place] [address] 01/26/2024 9:50 AM EDT Office Visit Vascular Surgery, [address] [address] Mikhail Suazo MD [address] [place] [address] 03/28/2024 3:20 PM EST Office Visit [facility] Disorders Ctr [facility] 132 [facility] [place] [phone] Shanika Fitzgerald DO 132 [facility] [place] [address] 04/03/2024 10:30 AM EST PulmDiagnostic Pulmonary Function Lab, [facility] 132 [facility] [place] [address] [place], [address] 132 [facility] [place] [address] 04/03/2024 11:00 AM EST PulmDiagnostic Pulmonary Function Lab, [facility] 132 [facility] [place] [address] [place], [place] 132 [facility] [place] [address] 04/03/2024 1:40 PM EST Office Visit Pulmonary Medicine, [facility] 132 [facility] [place] [address] Devin Hodge MD [address] [facility] [place] [address] 04/24/2024 6:00 PM EST [facility] [address] [place] [phone] Jairo Kingston MD [address] [place] [address] Scheduled Procedures Name Priority Associated Diagnoses Date/Ti [...] PAST YEAR FOR COPD 10/25/2024 10/26/2023 Hgb 11/03/2024 11/04/2023, 10/16, 10/25/2023, Additional history exists Colonoscopy 01/02/2026 01/02/2021, 07/17, [...] this encounter Medical Devices Implanted Type Area Repairer Evaporator Device Identifier Shelf Expiration Date Model / Serial / Lot Graft Hemasheild 20mm [id number] - [id number] Implanted:Qty: 1 on 01/13/2009 at OR [facility] N/A: Abdomen MICROVASIVE [id number] / / [id number] Clip Resolution 360 Endo 235cm - [id number] Implanted:Qty: 1 on 12/10/2022 by Lacie England MD at OR [facility] [employer] : ENDOSCOPY [id number] 07/02/2025 [id number] / / [id number] Clip Resolution 360 Endo 235cm - [id number] Implanted:Qty: 1 on 12/10/2022 by Lacie England MD at OR [facility] [employer] : ENDOSCOPY [id number] 07/02/2025 [id number] / / [id number] Stent Biliary Adult L30mm Dia1 - [id number] Implanted:Qty: 1 on 10/26/2023 by Lacie England MD at OR [facility] COOK : JOHANNA COURTNEY [id number] 06/27/2026 [id number] / / [id number] documented as of this encounter Visit Diagnoses Diagnosis SBO (small bowel obstruction) (HCC)- Primary Unspecified intestinal obstruction Chronic hypoxic respiratory failure, on home oxygen therapy (HCC) Chronic obstructive pulmonary disease with acute lower respiratory infection (HCC) Obstructive chronic bronchitis with exacerbation Hospital discharge follow-up Other follow-up examination documented in this encounter Advance Directives Documents on File Type Date Recorded Patient Heat Treat Worker Expl anation Power of Change Agent 07/30/2022 POWER OF A TTORNEY * Full [...] and were consensually agreed upon. Care Teams Telex Operator Relationship Specialty Start Date End Date Jairo Kingston MD [address] [place] [address] PCP - General 12/21/05 documented as of this encounter
--- OUTSIDE RECORDS SUMMARY | 2024-04-26 10:59 | External Medical Summary | Summary of Care ---
Author Name Unknown Organization [facility] Address [address] [place] [address] Phone [phone] Care Team Providers Care Health Inspector Food Name Role Phone Jairo Kingston MD Primary Care Provider +1- [phone] Reason for Visit * Reason Comments Infusion Venofer Encounter Details Date Type Department Care Team (Latest Contact Info) Description 11/04/2023 2:00 PM EDT Hem/Onc Treatment Hematology/Oncology Treatment, [address] [phone] Hannah, Chair 10 Hem Onc [address] [address] Iron deficiency anemia due to chronic blood loss* Allergies Active Allergy Reactions Criticality Noted Date Comments Pavan Inhibitors Other (Please comment) 0 Hyperkalemia documented as of this encounter (statuses as of 11/23/2023) Medications Medication Sig Dispensed Refills Start Date [...] 0.1 % Nasal Solution (Astelin) Administer 1 [place] into nostril in the morning and 1 [place] before bedtime. 30 mL 1 3 Active [...] as of this encounter (statuses as of 11/23/2023) Active Problems Problem Noted Date Diagnosed Date [...] as of this encounter (statuses as of 11/23/2023) Resolved Problems Problem Noted Date Diagnosed Date [...] as of this encounter (statuses as of 11/23/2023) Immunizations Name Administration Dates Next Due COVID-19 [...] Sign Reading Time Taken Comments Blood Pressure 143/81 11/04/2023 3:45 PM EDT Pulse 71 11/04/2023 3:45 PM EDT Temperature 37.1 C (98.7 F) 11/04/2023 3:45 PM ED T Respiratory Rate 18 11/04/2023 3:45 PM EDT Oxygen Saturation 92% 11/04/2023 3:45 PM EDT Inhaled Oxygen Concentration - - [...] as of this encounter Nursing Notes * Stephanie Jack, RN - 11/04/2023 4:47 PM EDT Pt completed treatment without issues. IV removed. Pt discharged in stable condition. * Nyla Barajas LPN - 11/04/2023 3:46 PM EDT 1425: Pt arrived for Venofer infusion. PIV in LFA. Pt tolerated well. VSS. No complaints at this time. documented in this encounter Plan of Treatment Upcoming Encounters Date Type Department Care Team (Late st Contact Info) Description 12/02/2023 2:00 PM EDT Hem/Onc Treatment Hematology/Oncology Treatment, [place] [facility] [phone] Hannah, Chair 9 Hem Onc [address] [place] [address] 12/13/2023 3:00 PM EDT Office Visit Nephrology, [facility] [address] [facility] [place] [address] Reggie Azevedo MD 200 [facility] [place] [address] 12/14/2023 9:15 AM EDT Office Visit Hematology/Oncology [facility] [place] [address] [facility] [place] [phone] Michael Snyder MD [address] [facility] [place] [address] 01/09/2024 1:00 PM EDT Home Visit [facility] [place], [facility] [address] [place] [address] Heath Zhang PA-C [address] [place] [address] 01/18/2024 10:00 AM EDT [facility] Visit [facility], [facility] 132 [place] [address] Jenifer Linder, RN 132 [place] [address] 01/19/2024 4:45 PM EDT Imaging Radiology [address] [facility] [place] [address] 01/26/2024 9:50 AM EDT Office Visit Vascular Surgery, [address] [place] [address] Mikhail Suazo MD [address] [facility] [place], [place] [address] 03/28/2024 3:20 PM EST Office Visit Sleep Disorders Ctr [facility] 132 [facility] [place] [phone] Shanika Fitzgerald, 132 [facility] [place] [address] 04/03/2024 10:30 AM EST PulmDiagnostic Pulmonary Function Lab, [facility] 132 [facility] [place] [address] [place] 132 [facility] [place] [address] 04/03/2024 11:00 AM EST PulmDiagnostic Pulmonary Function Lab, [facility] 132 [facility] [place] [address] [place], [place] 132 [facility] [place] [address] 04/03/2024 1:40 PM EST Office Visit Pulmonary Medicine, [facility] 132 [facility] [place] [address] Devin Hodge MD [address] [place] [address] 04/24/2024 6:00 PM EST Office Visit [facility] [address] [facility], [place] [phone] Jairo Kingston MD [address] [place] [place] [address] Scheduled Procedures Name Priority Associated Diagnoses Date/Ti [...] this encounter Medical Devices Implanted Type Area Pill Coater Device Identifier Shelf Expiration Date Model / Serial / Lot Graft Hemasheild 20mm [id number] - [id number] Implanted:Qty: 1 on 01/13/2009 at OR [facility] N/A: Abdomen MICROVASIVE [id number] / / [id number] Clip Resolution 360 Endo 235cm - [id number] Implanted:Qty: 1 on 12/10/2022 by Lacie England MD at OR [facility] [employer] : ENDOSCOPY [id number] 07/02/2025 [id number] / / [id number] Clip Resolution 360 Endo 235cm - [id number] Implanted:Qty: 1 on 12/10/2022 by Lacie England MD at OR [facility] [employer] : ENDOSCOPY [id number] 07/02/2025 [id number] / / [id number] Stent Biliary Adult L30mm Dia1 - [id number] Implanted:Qty: 1 on 10/26/2023 by Lacie England MD at OR [facility] COOK : JOHANNA COURTNEY [id number] 06/27/2026 [id number] / / [id number] documented as of this encounter Procedures Procedure Name Priority Date/Time Associated Diagnosis Comments DIFFERENTIAL, AUTOMATED STAT 11/04/2023 2:04 PM EDT Iron deficiency anemia due to chronic blood loss IRON SCREEN, INCLUDING TIBC STAT 11/04/2023 2:04 PM EDT Iron deficiency anemia due to chronic blood loss CBC STAT 11/04/2023 2:04 PM EDT Iron deficiency anemia due to chronic blood loss CBC STAT 11/04/2023 2:04 PM EDT Iron deficiency anemia due to chronic blood loss DIFFERENTIAL, TECHNOLOGIST REVIEW Routine 11/04/2023 2:04 PM EDT Iron deficiency anemia due to chronic blood loss FERRITIN STAT 11/04/2023 2:04 PM EDT Iron deficiency anemia due to chronic blood loss documented in this encounter Results * DIFFERENTIAL, TECHNOLOGIST REVIEW (11/04/2023 2:04 PM EDT) nRBCs 11/04/2023 2:46 PM EDT [facility] 56-02 Blood Venous blood specimen / Unknown Venipuncture / Unknown 11/04/2023 2:04 PM EDT 11/04/2023 2:40 PM EDT Sheir [facility] BLOOD [facility] [address]- [address] [place] [phone] * (ABNORMAL) DIFFERENTIAL, AUTOMATED (11/04/2023 2:04 PM EDT) Pathologist [facility] WBC 9.43 4.00 - 10.80 K/uL 11/04/2023 2:46 PM EDT [facility] 56-02 Neutrophils % 66.5 40.0 - 75.0 % 11/04/2023 2:46 PM EDT [facility] 56-02 Lymphocytes % 14.3(L) 18.0 - 42.0 % 11/04/2023 2:46 PM EDT [facility] 56-02 Monocytes % 12.1(H) 1.0 - 11.0 % 11/04/2023 2:46 PM EDT [facility] 56-02 Eosinophils % 6.5(H) 0.0 - 6.0 % 11/04/2023 2:46 PM EDT [facility] 56-02 Basophils % 0.6 0.0 - 2.0 % 11/04/2023 2:46 PM EDT [facility] 56-02 Absolute Neutrophils 6.27 1.80 - 7.70 K/uL 11/04/2023 2:46 PM EDT [facility] 56-02 Absolute Lymphocytes 1.35 1.00 - 4.80 K/ul 11/04/2023 2:46 PM EDT [facility] Absolute Monocytes 1.14(H) 0.00 - 1.10 K/uL 11/04/2023 2:46 PM EDT [facility] Absolute Eosinophils 0.61 0.00 - 0.70 K/uL 11/04/2023 2:46 PM EDT [facility] Absolute Basophils 0.06 0.00 - 0.20 K/uL 11/04/2023 2:46 PM EDT [facility] Blood Venous blood specimen / Unknown Venipuncture / Unknown 11/04/2023 2:04 PM EDT 11/04/2023 2:40 PM EDT Sheri [facility] [address] [place] [address] * (ABNORMAL) CBC (11/04/2023 2:04 PM EDT) WBC 9.43 4.00 - 10.80 K/uL 11/04/2023 2:46 PM EDT [facility] RBC 2.97 4.50 - 5.25 M/uL 11/04/2023 2:46 PM EDT [facility] HGB 9.6(L) 14.0 - 16.8 g/dL 11/04/2023 2:46 PM EDT [facility] HCT 31.6(L) 40.0 - 48.4 % 11/04/2023 2:46 PM EDT [facility] MCV 106.4 82.0 - 99.5 fL 11/04/2023 2:46 PM EDT [facility] MCH 32.3 27.0 - 34.0 pg 11/04/2023 2:46 PM EDT [facility] MCHC 30.4 32.0 - 36.0 g/dL 11/04/2023 2:46 PM EDT [facility] RDW 15.3 11.5 - 15.5 % 11/04/2023 2:46 PM EDT [facility]-02 PLT 308 140 - 400 K/uL 11/04/2023 2:46 PM EDT [facility] 56-02 MPV 10.5 6.6 - 11.1 fL 11/04/2023 2:46 PM EDT [facility] 56-02 Blood Venous blood specimen / Unknown Venipuncture / Unknown 11/04/2023 2:04 PM EDT 11/04/2023 2:40 PM EDT Sheri [facility] BLOOD [facility] [place] 56-02 [address] [place] [address] * (ABNORMAL) IRON SCREEN, INCLUDING TIBC (11/04/2023 2:04 PM EDT) Iron 29(L) 45 - 176 ug/dL 11/04/2023 10:57 PM EDT [facility] Iron Binding Capacity 283 250 - 425 ug/dL 11/04/2023 10:57 PM EDT [facility] Transferrin Saturation Percent 10(L) 15 - 55 % 11/04/2023 10:57 PM EDT LABOR[facility]ORY [facility] Blood Venous blood specimen / Unknown Venipuncture / Unknown 11/04/2023 2:04 PM EDT 11/04/2023 2:40 PM EDT Sheri [facility] BLOOD [facility] [address] [place] [address] * FERRITIN (11/04/2023 2:04 PM EDT) Ferritin 190 30 - 400 ng/mL 11/05/2023 4:27 AM EDT [facility] Blood Venous blood specimen / Unknown Venipuncture / Unknown 11/04/2023 2:04 PM EDT 11/04/2023 2:40 PM EDT Sheri [facility] BLOOD ORDER [facility] [address] [place] [address] documented in this encounter Visit [...] mg, IV Piggyback, ONCE, 1 dose, On Tue11/04/23 at 1545, Administer over 90 Minutes Start Infusion 11/04/2023 2:31 PM EDT 300 mg 180 mL/hr NSS infusion 500 mL, Intravenous, at 50 mL/hr, CONTINUOUS, Starting on Tue11/04/23 at 1515, Until Tue11/04/23 at 2048 Start Infusion 11/04/2023 2:30 PM EDT 500 mL 50 mL/hr documented in this encounter Advance Directives Documents on File Type Date Recorded Patient Clerk Cashier Expl anation Power of Shipping Order Clerk 07/30/2022 POWER OF A TTORNEY * [...] and were consensually agreed upon. Care Teams Health Inspector Food Relationship Specialty Start Date End Date Jairo Kingston MD [address] [place] [address] PCP - General 12/21/05 documented as of this encounter
--- OUTSIDE RECORDS SUMMARY | 2024-04-26 10:59 | External Medical Summary | Summary of Care ---
Author Name Unknown Organization [facility] Address [address] [place] [address] Phone [phone] Care Team Providers Care Nuclear Security Officer Name Role Phone Lalo Carias MD Primary Care Provider +1- [phone] Reason for Visit * Reason Comments Medication Refill Encounter Details Date Type Department Care Team (Late st Contact Info) Description 12/08/2023 Refill [facility] [address] [place] [address] Lalo Carias MD [address] [place] [address] Allergies Active Allergy Reactions Criticality [...] 0.1 % Nasal Solution (Astelin) Administer 1 [place] into nostril in the morning and 1 [place] before bedtime. 30 mL 1 3 Active [...] Notes * Telephone Encounter - Joaquin Garcia [facility] - 12/08/2023 10:15 AM EDTSigned Prescriptions: Disp Refills Furosemide 20 MG Oral Tablet (Lasix) 180 Ta*1 Sig: TAKE 1 TABLET BY MOUTH twice DAILY Authorizing Provider: LALO CARIAS Ordering User: JOAQUIN WHEELER * Telephone Encounter - Joaquin Garcia [facility] - 12/08/2023 10:13 AM EDT Pending Prescriptions: [...] Description 12/09/2023 4:00 PM EDT [facility] Visit [facility] [address] [address] Jenifer Linder RN [address] [place] [address] 12/13/2023 3:00 PM EDT Office Visit Nephrology, [facility] [address] [place], [place] [address] Reggie Azevedo MD [address] [place] [address] 12/14/2023 9:15 AM EDT Office Visit Hematology/Oncology [facility] [place] [address] [place] [phone] Michael Snyder MD [address] [place], [place] [address] 12/30/2023 2:00 PM EDT Hem/Onc Treatment Hematology/Oncology Treatment, [place] [address] [place], [place] [phone] Hannah, Chair 1 Hem Onc [facility] 200 [facility] [place], [place] [address] 01/09/2024 1:00 PM EDT [facility] [address] [address] Heath Zhang PA-C [address] [address] 01/18/2024 10:00 AM EDT [facility] [place], [facility] [address] [address] Jenifer Linder, RN [address] [place] [address] 01/19/2024 4:45 PM EDT Imaging Radiology [address], [place] [address] [place] [place] [address] 01/26/2024 9:50 AM EDT Office Visit Vascular Surgery, [address] [place] [address] Mikhail Suazo MD [address] [facility] [place], [place] [address] 03/28/2024 3:20 PM EST Office Visit Sleep Disorders Ctr [facility] 132 [facility] [place] [phone] Shanika Fitzgerald, DO 132 [facility] [place] [address] 04/03/2024 10:30 AM EST PulmDiagnostic Pulmonary Function Lab, [facility] 132 [facility] [place] [address] [address], [address] 132 [facility] [place] [address] 04/03/2024 11:00 AM EST PulmDiagnostic Pulmonary Function Lab, [facility] 132 [facility] [place] [address] [address], [address] [facility] [address] 04/03/2024 1:40 PM EST Office Visit Pulmonary Medicine, [facility] 132 [facility] [place] [address] Devin Hodge MD [address] [place] [address] 04/24/2024 6:00 PM EST Office Visit [facility] [address] [facility] [phone] Lalo Carias MD [address] [facility] [place] [address] Scheduled Procedures Name Priority Associated Diagnoses Date/Ti [...] this encounter Medical Devices Implanted Type Area Menswear Salesperson Device Identifier Shelf Expiration Date Model / Serial / Lot Graft Hemasheild 20mm [id number] - [id number] Implanted:Qty: 1 on 01/13/2009 at [place] [facility] [place]A: Abdomen MICROVASIVE [id number] / / [id number] Clip Resolution 360 Endo 235cm - [id number] Implanted:Qty: 1 on 12/10/2022 by Lacie England MD at OR [facility] [employer] : ENDOSCOPY [id number] 07/02/2025 [id number] / / [id number] Clip Resolution 360 Endo 235cm - [id number] Implanted:Qty: 1 on 12/10/2022 by Lacie England MD at OR [facility] [employer] : ENDOSCOPY [id number] 07/02/2025 [id number] / / [id number] Stent Biliary Adult L30mm Dia1 - [id number] Implanted:Qty: 1 on 10/26/2023 by Lacie England MD at OR [facility] COOK : JOHANNA COURTNEY [id number] 06/27/2026 [id number] / / [id number] documented as of this encounter Advance Directives Documents on File Type Date Recorded Patient Vertical Lathe Operator Expl anation Power of Peanut Farmer 07/30/2022 POWER OF A TTORNEY * [...] were consensually agreed upon. Care Teams Nuclear Security Officer Relationship Specialty Start Date End Date Lalo Carias MD [address] [facility] [place] [address] PCP - General 12/21/05 documented as of this encounter
--- OUTSIDE RECORDS SUMMARY | 2024-04-26 10:59 | External Medical Summary | Summary of Care ---
Author Name Unknown Organization [facility] Address [address] [place] [address] Phone [phone] Care Team Providers Care Construction Inspector Name Role Phone Jairo Kingston MD Primary Care Provider +1- [phone] Reason for Visit * Reason Comments IV Therapy Venofer Encounter Details Date Type Department Care Team (Latest Contact Info) Description 12/02/2023 2:00 PM EDT Hem/Onc Treatment Hematology/Oncology Treatment, [address] [address] Hannah, Chair 9 Hem On[address] [address] Iron deficiency anemia due to chronic blood loss*; Chronic kidney disease, stage 4 (severe) (HCC) Allergies Active Allergy Reactions Criticality Noted Date Comments Pavan Inhibitors Other (Please comment) 0 Hyperkalemia documented as of this encounter (statuses as of 12/02/2023) Medications Medication Sig Dispensed Refills Start Date [...] 0.1 % Nasal Solution (Astelin) Administer 1 [place] into nostril in the morning and 1 [place] before bedtime. 30 mL 1 01/11/2023 Active [...] for Wheezing. 54 g 6 11/23/2023 Active Doxycycline Hyclate 100 MG Oral Tablet Take 1 Tablet by mouth in the morning and 1 Tablet before bedtime. For as needed Rescue kit use when directed to take for COPD exacerbation. 14 Tablet 11/25/2023 Active Hospital, Clinic, or Other Facility Administered Medication Ordered Dose Route Frequency Start Date End Date Status Albuterol Sulfate (Proventil) (2.5 MG/3ML) 0.083% inhalation solution 2.5 mgIndications:COPD, group D, by GOLD 2017 classification ([facility]) 2.5 mg NEBULIZER PRN 10/03/2023 10/02/2024 Acti ve documented as of this encounter (statuses as of 12/02/2023) Active Problems Problem Noted Date Diagnosed Date [...] as of this encounter (statuses as of 12/02/2023) Resolved Problems Problem Noted Date Diagnosed Date [...] as of this encounter (statuses as of 12/02/2023) Immunizations Name Administration Dates Next Due COVID-19 [...] 12/13/2023 3:00 PM EDT Office Visit Nephrology, [address] [place] [address] Reggie Azevedo MD [address] [place] [address] [place] [address] 12/14/2023 9:15 AM EDT Office Visit Hematology/Oncology [facility] 200 [facility] [phone] Michael Snyder MD [address] [place] [address] [place] [address] 12/30/2023 2:00 PM EDT Hem/Onc Treatment Hematology[facility]Oncology Treatment, [place] [facility] [phone] Hannah, Chair 1 Hem Onc [address] [place] [address] 01/09/2024 1:00 PM EDT [facility], [facility] 132 [facility] [place] [address] Heath Zhang PA-C [address] [place] [address] 01/18/2024 10:00 AM EDT [facility] 132 [place] [address] Jenifer Linder RN [address] [place] [address] 01/19/2024 4:45 PM EDT Imaging Radiology [facility]st [facility] [address] [place] [address] 01/26/2024 9:50 AM EDT Office Visit Vascular Surgery, [place] [address] [facility] [place] [address] Mikhail Suazo MD [address] [place] [facility] [place] [address] 03/28/2024 3:20 PM EST Office Visit [facility] Disorders Ctr [facility] 132 [facility] [place] [phone] Shanika Fitzgerald DO [address] [place] [address] 04/03/2024 10:30 AM EST PulmDiagnostic Pulmonary Function Lab, [facility] 132 [facility] [place] [address] [address], [address] 132 [place] [address] 04/03/2024 11:00 AM EST PulmDiagnostic Pulmonary Function Lab, [facility] 132 [facility] [place] [address] [address], [address] 132 [facility] [place] [address] 04/03/2024 1:40 PM EST Office Visit Pulmonary Medicine, [facility] 132 [facility] [place] [address] Devin Hodge MD [address] [place] [address] 04/24/2024 6:00 PM EST Office Visit [facility] [address] [facility] [place] [address] Jairo Kingston MD [address] [place] [address] Pending Results Name Type Priority Associated Diagnoses Date /Time FERRITIN Lab STAT Iron deficiency anemia due to chronic blood loss 12/02/2023 1:54 PM EDT IRON SCREEN, INCLUDING TIBC Lab STAT Iron deficiency anemia due to chronic blood loss 12/02/2023 1:54 PM EDT Scheduled Procedures Name Priority Associated [...] this encounter Medical Devices Implanted Type Area Ticket Agent Device Identifier Shelf Expiration Date Model / Serial / Lot Graft Hemasheild 20mm [id number] - [id number] Implanted:Qty[place] 1 on 01/13/2009 [place] [facility] [place]: Abdomen MICROVASIVE [id number] / / [id number] Clip Resolution 360 Endo 235cm - [id number] Implanted:Qty: 1 on 12/10/2022 by Lacie England MD at OR [facility] [employer] : ENDOSCOPY [id number] 07/02/2025 [id number] / / [id number] Clip Resolution 360 Endo 235cm - [id number] Implanted:Qty: 1 on 12/10/2022 by Lacie England MD at OR [facility] [employer] : ENDOSCOPY [id number] 07/02/2025 [id number] / / [id number] Stent Biliary Adult L30mm Dia1 - [id number] Implanted:Qty: 1 on 10/26/2023 by Lacie England MD at OR [facility] ROZ : JOHANNA COURTNEY [id number] 06/27/2026 [id number] / / [id number] documented as of this encounter Procedures Procedure [...] - 10.80 K/uL 12/02/2023 2:18 PM EDT [facility] 56-02 Neutrophils % 62.8 40.0 - 75.0 % 12/02/2023 2:18 PM EDT [facility] 56-02 Lymphocytes % 14.9(L) 18.0 - 42.0 % 12/02/2023 2:18 PM EDT [facility] 56-02 Monocytes % 14.1(H) 1.0 - 11.0 % 12/02/2023 2:18 PM EDT [facility] 56-02 Eosinophils % 7.8(H) 0.0 - 6.0 % 12/02/2023 2:18 PM EDT [facility] 56-02 Basophils % 0.4 0.0 - 2.0 % 12/02/2023 2:18 PM EDT [facility] 56-02 Absolute Neutrophils 4.50 1.80 - 7.70 K/uL 12/02/2023 2:18 PM EDT [facility] 56-02 Absolute Lymphocytes 1.07 1.00 - 4.80 K/ul 12/02/2023 2:18 PM EDT [facility] 56-02 Absolute Monocytes 1.01 0.00 - 1.10 K/uL 12/02/2023 2:18 PM EDT [facility] 56-02 Absolute Eosinophils 0.56 0.00 - 0.70 K/uL 12/02/2023 2:18 PM EDT [facility] 56-02 Absolute Basophils 0.03 0.00 - 0.20 K/uL 12/02/2023 2:18 PM EDT [place] [address] Blood Venous blood specimen / Unknown Venipuncture / Unknown 12/02/2023 1:54 PM EDT 12/02/2023 2:15 PM EDT Sheri Heredia Valentin [facility] [place] [address] [address] [place] [address] * (ABNORMAL) CBC (12/02/2023 1:54 PM EDT) WBC 7.17 4.00 - 10.80 K/uL 12/02/2023 2:18 PM EDT [place] [address] RBC 3.29 4.50 - 5.25 M/uL 12/02/2023 2:18 PM EDT [place] [address] HGB 10.7(L) 14.0 - 16.8 g/dL 12/02/2023 2:18 PM EDT [place] [address] HCT 33.6(L) 40.0 - 48.4 % 12/02/2023 2:18 PM EDT [place] [address] MCV 102.1 82.0 - 99.5 fL 12/02/2023 2:18 PM EDT [place] [address] MCH 32.5 27.0 - 34.0 pg 12/02/2023 2:18 PM EDT [place] [address] MCHC 31.8 32.0 - 36.0 g/dL 12/02/2023 2:18 PM EDT [place] [address] RDW 16.8 11.5 - 15.5 % 12/02/2023 2:18 PM EDT [address] PLT 198 140 - 400 K/uL 12/02/2023 2:18 PM EDT [place] [address] MPV 10.3 6.6 - 11.1 fL 12/02/2023 2:18 PM EDT [place] [address] Blood Venous blood specimen / Unknown Venipuncture / Unknown 12/02/2023 1:54 PM EDT 12/02/2023 2:15 PM EDT Sheri Giovanna [facility] [place] [facility] 56-46 [address] [place] [address] documented in this encounter Visit Diagnoses Diagnosis Iron deficiency anemia due to chronic blood loss- Primary Iron 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 (chronic) Chronic kidney disease, stage 4 (severe) (HCC) documented in this encounter Administered Medications Active Administered Medications - up to 3 most recent administrations Medication Order MAR Action Action Date Dose Rate Site diphenhydrAMINE (Benadryl) inj 50 mg 50 mg, IV Push, ONCE PRN Other, Hypersensitivity Reaction, Starting on Tue12/02/23 at 1353, Until 12/03/23 at 1352, For 24 hours EPINEPHrine 1 MG/ML inj 0.3 mg 0.3 mg, Intramuscular, ONCE PRN Other, Hypersensitivity Reaction or Anaphylaxis, Starting on Tue12/02/23 at 1353, Until 12/03/23 at 1352, For 24 hours hEParin 100 UNIT/ML Lock Flush inj 500 Units 500 Units (5 mL), IV Lock, PRN Other, IV Flush, Starting on Tue12/02/23 at 1353, Until 12/03/23 at 1352, For 24 hours, Do not flush if lock, PICC, or central line not in place; IV infusing or unable to flush. Hydrocortisone Sod Suc (PF) (Solu-Cortef) inj 100 mg 100 mg, IV Push, ONCE PRN Other, Hypersensitivity Reaction, Starting on Tue12/02/23 at 1353, Until 12/03/23 at 1352, For 24 hours NSS infusion 500 mL, Intravenous, at 50 mL/hr, CONTINUOUS, Starting on Tue12/02/23 at 1500, Until 12/03/23 at 0059 Start Infusion 12/02/2023 2:07 PM EDT 500 mL 50 mL/hr oxygen GAS Inhalation, OXYGEN, First dose on Tue12/02/23 at 1600, Until Discontinued, Device/Managed by: Low [...] Push, PRN Other, IV Flush, Starting on Tue12/02/23 at 1353, Until 12/03/23 at 1352, For 24 hours, Do not flush if [...] 2:09 PM EDT 300 mg 180 mL/hr documented in this encounter Advance Directives Documents on File Type Date Recorded Patient Crane Ladle Person Expl anation Power of Food Order Delivery Runner 07/30/2022 POWER OF A TTORNEY * Full [...] and were consensually agreed upon. Care Teams Construction Inspector Relationship Specialty Start Date End Date Jairo Kingston MD [address] [place] [place] [address] PCP - General 12/21/05 documented as of this encounter
--- OUTSIDE RECORDS SUMMARY | 2024-04-26 10:59 | External Medical Summary | Summary of Care ---
Author Name Unknown Organization [facility] Address [address] [place] [address] Phone [phone] Care Team Providers Care Wrapper Off Name Role Phone Jairo Kingston MD Primary Care Provider +1- [phone] Encounter Details Date Type Department Care Team (Late st Contact Info) Description 12/05/2023 Orders Only Outcomes Research Department [address] [place], [place] [id number] Ofelia Morris CHRA [facility] Research Other*[id number] Allergies Active Allergy Reactions Criticality Noted Date Comments Pavan Inhibitors Other (Please comment) 0 Hyperkalemia documented as of this encounter (statuses as of 12/05/2023) Medications Medication Sig Dispensed Refills Start Date [...] 0.1 % Nasal Solution (Astelin) Administer 1 [place] into nostril in the morning and 1 [place] before bedtime. 30 mL 1 01/11/2023 Active [...] (Eliquis)Indications :Recurrent cerebrovascular accidents (CVAs) ([facility]) Take 1 Tablet by mouth in the morning and 1 Tablet before bedtime. 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 GINNY [...] as of this encounter (statuses as of 12/05/2023) Resolved Problems Problem Noted Date Diagnosed Date [...] as of this encounter (statuses as of 12/05/2023) Immunizations Name Administration Dates Next Due COVID-19 [...] 12/13/2023 3:00 PM EDT Office Visit Nephrology, [facility] [address] [place] [address] Reggie Azevedo MD [address] [place] [place] [address] 12/14/2023 9:15 AM EDT Office Visit Hematology/Oncology [facility] [place] [address] [place] [address] [place] [phone] Michael Snyder MD [address] [place] [place] [address] 12/30/2023 2:00 PM EDT Hem/Onc Treatment Hematology/Oncology Treatment, [place] 200 [facility] [place] [phone] Hannah, Chair 1 Hem Onc [place] [address] [place] [address] [place] [address] 01/09/2024 1:00 PM EDT Home Visit [facility] [place] [address] Heath Zhang PA-C [address] [place] [address] 01/18/2024 10:00 AM EDT [facility], [facility] [address] [place], [place] [address] Jenifer Linder RN [address] [place] [address] 01/19/2024 4:45 PM EDT Imaging Radiology [facility] 1st Floor, [place] [address] [place] [address] 01/26/2024 9:50 AM EDT Office Visit Vascular Surgery, [address] [place] [address] Mikhail Suazo MD [address] [place] [address] 03/28/2024 3:20 PM EST Office Visit [facility] Disorders Ctr [facility] 132 [facility] [place] [phone] Shanika Fitzgerald DO [address] [place] [address] 04/03/2024 10:30 AM EST PulmDiagnostic Pulmonary Function Lab, [facility] [place] [address] [address], [address] [facility] [place] [address] 04/03/2024 11:00 AM EST PulmDiagnostic Pulmonary Function Lab, [facility] [address] [place] [address] [address], [address] 132 [facility] [place] [address] 04/03/2024 1:40 PM EST Office Visit Pulmonary Medicine, [facility] [address] [place] [address] Devin Hodge MD [address] [place] [address] 04/24/2024 6:00 PM EST Office Visit [facility] [address] [facility] [address] Jairo Kingston MD [address] [place] [address] Scheduled Orders Name Type Priority Associated Diagnoses Orde r Schedule MYCODE SUBSEQUENT ADULT Lab Routine My[facility] Research Other*[id number] Every 6 Months for 2 Occurrences starting 12/05/2023 until 12/24/2024 Scheduled Procedures Name Priority Associated Diagnoses Date/Ti [...] encounter Medical Devices Implanted Type Area Safety Specialist Device Identifier Shelf Expiration Date Model / Serial / Lot Graft Hemasheild 20mm [id number] - [id number] Implanted:Qty: 1 on 01/13/2009 at [place] [facility] [place] N/A: Abdomen MICROVASIVE [id number] / / [id number] Clip Resolution 360 Endo 235cm - [id number] Implanted:Qty: 1 on 12/10/2022 by Lacie England MD at OR [facility] [employer] : ENDOSCOPY [id number] 07/02/2025 [id number] / / [id number] Clip Resolution 360 Endo 235cm - [id number] Implanted:Qty: 1 on 12/10/2022 by Lacie England MD at OR [facility] [employer] : ENDOSCOPY [id number] 07/02/2025 [id number] / / [id number] Stent Biliary Adult L30mm Dia1 - [id number] Implanted:Qty: 1 on 10/26/2023 by Lacie England MD at OR [facility] : JOHANNA COURTNEY [id number] 06/27/2026 [id number] / / [id number] documented as of this encounter Visit Diagnoses Diagnosis [facility] Other*[id number] documented in this encounter Advance Directives Documents on File Type Date Recorded Patient Basic Sciences Dean Expl anation Power of Learning Disabilities Teacher 07/30/2022 POWER OF A TTORNEY * [...] and were consensually agreed upon. Care Teams Wrapper Off Relationship Specialty Start Date End Date Jairo Kingston MD [address] [place] [address] PCP - General 12/21/05 documented as of this encounter
--- OUTSIDE RECORDS SUMMARY | 2024-04-26 10:59 | External Medical Summary ---
Author Name Unknown Address Unknown Organization K09[facility] [address] Laboratory Report Ordering Provider Test Date Status LOLLY ALEGRIA 12/02/2023 13:54:06 Final Observation Date Value Abnormality Reference (Units ) Status SYNC LEUKOCYTES IN BLOOD BY AUTOMATED COUNT 12/02/2023 13:54:06 7.17 4.00-10.80 (K/uL) Final Segs 12/02/2023 13:54:06 62.8 40.0-75.0 (%) Final Lymphs % 12/02/2023 13:54:06 14.9 Below low normal 18.0-42.0 (%) Final Monos 12/02/2023 13:54:06 14.1 Above high normal 1.0-11.0 (%) Final Eosinophils 12/02/2023 13:54:06 7.8 Above high normal 0.0-6.0 (%) Final Basos 12/02/2023 13:54:06 0.4 0.0-2.0 (%) Final Absolute Segs 12/02/2023 13:54:06 4.50 1.80-7.70 (K/uL) Final Lymphs, absolute 12/02/2023 13:54:06 1.07 1.00-4.80 (K/ul) Final Monos, Abs 12/02/2023 13:54:06 1.01 0.00-1.10 (K/uL) Final Eos, Abs 12/02/2023 13:54:06 0.56 0.00-0.70 (K/uL) Final Basos, Abs 12/02/2023 13:54:06 0.03 0.00-0.20 (K/uL) Final Performing Location [facility] [place] [address]
--- OUTSIDE RECORDS SUMMARY | 2024-04-26 10:59 | External Medical Summary | Summary of Care ---
Author Name Unknown Organization [facility] Address [address] [place] [address] Phone [phone] Care Team Providers Care Geological Scout Name Role Phone Jairo Kingston MD Primary Care Provider +1- [phone] Reason for Visit * Reason Onset Date Comments Appointment 12/08/2023 Encounter Details Date Type Department Care Team (Late st Contact Info) Description 12/08/2023 Telephone [facility], [facility] [address] [facility] [place] [address] [facility] Kira Casey, DO [address] [place] [phone] Appointment Allergies Active Allergy Reactions Criticality Noted [...] 0.1 % Nasal Solution (Astelin) Administer 1 [place] into nostril in the morning and 1 [place] before bedtime. 30 mL 1 3 Active [...] Oral Tablet (Eliquis)Indications :Recurrent cerebrovascular accidents (CVAs) ([facility]) Take 1 Tablet by mouth in the morning and 1 Tablet before bedtime. 180 Tablet 1 4 Active Albuterol Sulfate HFA 108 (90 Base) MCG/ACT Inhalation Aerosol SolutionIndications: COPD, group D, by GOLD 2017 classification ([facility]) Inhale 2 Puffs by mouth [...] encounter Miscellaneous Notes * Telephone Encounter - Claudine Orantes OSA - 12/08/2023 10:11 AM EDT Rcvd call from pts daughter she advised she wants to make sure her dads COPD is on the right track.. Schedule appt on 12/08 at 4:00pm is a good date and time. documented in this encounter Plan of Treatment Upcoming Encounters Date Type Department Care Team (Late st Contact Info) Description 12/09/2023 4:00 PM EDT Home Visit [facility] [address] [place] [address] Jenifer Linder RN [address] [place] [address] 12/13/2023 3:00 PM EDT Office Visit [facility], [facility] [address] [place] [address] Reggie Azevedo MD [address] [place], [place] [address] 12/14/2023 9:15 AM EDT Office Visit Hematology/Oncology [facility] [address] [place] [address] Michael Snyder MD [address] [place], [place] [address] 12/30/2023 2:00 PM EDT Hem/Onc Treatment Hematology/Oncology Treatment, [place] [address] [place], [place] [phone] Hannah, Chair 1 Hem Onc [facility] [address] [facility] [place] [address] 01/09/2024 1:00 PM EDT [facility], [facility] [address] [place] [address] Heath Zhang PA-C [address] [place] [address] 01/18/2024 10:00 AM EDT [facility] Visit [facility] [place], [facility] [address] [place] [address] Jenifer Linder RN [address] [place] [address] 01/19/2024 4:45 PM EDT Imaging Radiology [address] [place] [address] 01/26/2024 9:50 AM EDT Office Visit Vascular Surgery, [address] [place] [address] Mikhail Suazo MD [address] [place] [address] 03/28/2024 3:20 PM EST Office Visit Sleep Disorders Ctr [facility] 132 [facility] [place] [phone] Shanika Fitzgerald, [address] [place] [address] 04/03/2024 10:30 AM EST PulmDiagnostic Pulmonary Function Lab, [facility] 132 [facility] [place] [address] West, Pft 132 [facility] [place] [address] 04/03/2024 11:00 AM EST PulmDiagnostic Pulmonary Function Lab, [facility] 132 [facility] [place] [address] [place], Pft 132 [facility] [place] [address] 04/03/2024 1:40 PM EST Office Visit Pulmonary Medicine, [facility] 132 [facility] [place] [address] Devin Hodge MD [address] [place] [address] 04/24/2024 6:00 PM EST [facility] [address] [facility] [phone] Jairo Kingston MD [address] [place] [facility] [place] [address] Scheduled Procedures Name Priority Associated Diagnoses Date/Ti [...] encounter Medical Devices Implanted Type Area Home Worker Device Identifier Shelf Expiration Date Model / Serial / Lot Graft Hemasheild 20mm [id number] - [id number] Implanted:Qty: 1 on 01/13/2009 at OR [place] N/A: Abdomen MICROVASIVE [id number] / / [id number] Clip Resolution 360 Endo 235cm - [id number] Implanted:Qty: 1 on 12/10/2022 by Lacie England MD at OR [facility] [employer] : ENDOSCOPY [id number] 07/02/2025 [id number] / / [id number] Clip Resolution 360 Endo 235cm - [id number] Implanted:Qty: 1 on 12/10/2022 by Lacie England MD at OR [facility] [employer] : ENDOSCOPY [id number] 07/02/2025 [id number] / / [id number] Stent Biliary Adult L30mm Dia1 - [id number] Implanted:Qty: 1 on 10/26/2023 by Lacie England MD at OR [facility] COOK : JOHANNA COURTNEY [id number] 06/27/2026 [id number] / / [id number] documented as of this encounter Advance Directives Documents on File Type Date Recorded Patient Tool Supervisor Expl anation Power of Sprinkler Helper 07/30/2022 POWER OF A TTORNEY * Full [...] and were consensually agreed upon. Care Teams Geological Scout Relationship Specialty Start Date End Date Jairo Kingston MD [address] [place] [address] PCP - General 12/21/05 documented as of this encounter
--- OUTSIDE RECORDS SUMMARY | 2024-04-26 10:59 | External Medical Summary ---
Author Name Unknown Address Unknown Organization [id number]:LABORATORY [facility] - [address] [place] [address] Laboratory Report Ordering Provider Test Date Status LOLLY ALEGRIA 12/02/2023 13:54:06 Final Observation Date Value Abnormality Reference (Units ) Status Iron 12/02/2023 13:54:06 28 Below low normal 45-176 (ug/dL) Final Iron-binding capacity 12/02/2023 13:54:06 309 250-425 (ug/dL) Final Transferrin Sat % 12/02/2023 13:54:06 9 Below low normal 15-55 (%) Final Performing Location LABORATORY C - [address] [place] [address]
--- OUTSIDE RECORDS SUMMARY | 2024-04-26 10:59 | External Medical Summary ---
Author Name Unknown Address Unknown Organization K09:[facility] [place] [address] Laboratory Report Ordering Provider Test Date Status LOLLY ALEGRIA 12/02/2023 13:54:06 Final Observation Date Value Abnormality Reference (Units ) Status WBC, Total 12/02/2023 13:54:06 7.17 4.00-10.8 0 (K/uL) Final RBC 12/02/2023 13:54:06 3.29 4.50-5.25 (M/uL) Final Hemoglobin 12/02/2023 13:54:06 10.7 Below low normal 14 .0-16.8 (g/dL) Final HCT 12/02/2023 13:54:06 33.6 Below low normal 40. 0-48.4 (%) Final MCV 12/02/2023 13:54:06 102.1 82.0-99.5 (fL) Final MCH 12/02/2023 13:54:06 32.5 27.0-34.0 (pg) Final MCHC 12/02/2023 13:54:06 31.8 32.0-36.0 (g/dL) Final RDW 12/02/2023 13:54:06 16.8 11.5-15.5 (%) Final Platelets 12/02/2023 13:54:06 198 140-400 (K /uL) Final MPV 12/02/2023 13:54:06 10.3 6.6-11.1 ( fL) Final Performing Location [facility] [place] [address]
--- OUTSIDE RECORDS SUMMARY | 2024-04-26 10:59 | External Medical Summary | Summary of Care ---
Author Name Unknown Organization [facility] Address [address] [place] [address] Phone [phone] Care Team Providers Care Federal Mediator Name Role Phone Jairo Kingston MD Primary Care Provider +1- [phone] Reason for Visit * Reason Onset Date Comments [facility]: Maintenance 11/23/2023 Encounter Details Date Type Department Care Team (Late st Contact Info) Description 11/23/2023 Telephone [facility], [facility] [address] [place] [address] Jenifer Linder RN [address] [place] [address] [facility]: Maintenance Allergies Active Allergy Reactions Criticality Noted Date Comments Pavan Inhibitors Other (Please comment) 0 Hyperkalemia documented as of this encounter (statuses as of 11/25/2023) Medications Medication Sig Dispensed Refills Start Date [...] bedtime. Active Ascorbic Acid 250 MG Oral TabletIndication s:Iron deficiency anemia, unspecified iron deficiency anemia type Take 0.5 Tablets by mouth daily at noon. 90 Tablet 3 12/14/2022 Active Azelastine HCl 0.1 % Nasal Solution (Astelin) Administer 1 [place] into nostril in the morning and 1 [place] before bedtime. 30 mL 1 01/11/2023 Active Furosemide 20 MG Oral Tablet (Lasix) TAKE 1 TABLET BY MOUTH twice DAILY 90 Tablet 3 01/18/2023 Active Ezetimibe 10 MG Oral Tablet (Zetia)Indicatio ns:Dyslipidemia, goal LDL below 70 TAKE ONE TABLET [...] 04/20/2023 Active Allopurinol 300 MG Oral Tablet (Zyloprim)Indica tions:Gout TAKE ONE-HALF TABLET BY MOUTH EVERY DAY 45 Tablet 2 06/01/2023 5 Active Ipratropium-Albu terol 0.5-2.5 (3) MG/3ML Inhalation Solution (Duoneb) Inhale 3 mL by mouth every 6 hours as needed (sob). 360 mL 5 07/27/2023 Active Fluticasone Propionate 50 MCG/ACT Nasal Suspension (Flonase) INSTILL 2 SPRAYS INTO EACH NOSTRIL EVERY DAY 48 g 3 07/29/2023 5 Active Trelegy Ellipta 100-62.5-25 MCG/ACT Aerosol Powder Breath Activated (Fluticasone-Ume clidinium-Vilant helen) INHALE ONE PUFF BY MOUTH EVERY DAY [...] morning and 1 Tablet before bedtime. Active predniSONE 20 MG Oral Tablet (Deltasone) Take 2 Tablets by mouth in the morning for 5 days. USE NEEDED FOR EXACERBATION. COPD RESCUE KIT. 10 Tablet 11/25/2023 Active Doxycycline Hyclate 100 MG Oral Tablet Take 1 Tablet by mouth in the morning and 1 Tablet before bedtime. For as needed Rescue kit use when directed to take for COPD exacerbation. 14 Tablet 11/25/2023 Active Doxycycline Hyclate 100 MG Oral Tablet Take 1 Tablet by mouth in the morning and 1 Tablet before bedtime. For as needed Rescue kit use when directed to take for COPD exacerbation. Discontinue d(Refill) Hospital, Clinic, or Other Facility Administered Medication Ordered Dose Route Frequency Start Date End Date Status Albuterol Sulfate (Proventil) (2.5 MG/3ML) 0.083% inhalation solution 2.5 mgIndications:COPD, group D, by GOLD 2017 classification (HCC) 2.5 mg NEBULIZER PRN 10/03/2023 10/02/2024 Acti ve documented as of this encounter (statuses as of 11/25/2023) Active Problems Problem Noted Date Diagnosed Date [...] as of this encounter (statuses as of 11/25/2023) Resolved Problems Problem Noted Date Diagnosed Date [...] as of this encounter (statuses as of 11/25/2023) Immunizations Name Administration Dates Next Due COVID-19 [...] encounter Miscellaneous Notes * Telephone Encounter - Heath Zhang PA-C - 11/24/2023 10:34 AM EDT Rescue kit reordered to mail order pharmacy. * Telephone Encounter - Jenifer Linder RN - 11/23/2023 10:42 AM EDT Cruzito Joe used his rescue kit of Prednisone and doxy several weeks ago. Can you please reorder so that he has in the home? He would like it to go to [email or web address]. Thank you! documented in this encounter Plan of Treatment Upcoming Encounters Date Type Department Care Team (Late st Contact Info) Description 12/02/2023 2:00 PM EDT Hem/Onc Treatment Hematology/Oncology Treatment, [place] [address] [place] [phone] Park, Chair 9 Hem Onc Scene 200 [place] [address] 12/13/2023 3:00 PM EDT Office Visit Nephrology, [facility] [address] [place] [address] Reggie Azevedo MD [address] [place] [address] 12/14/2023 9:15 AM EDT Office Visit Hematology/Oncology [facility] Hannah [place] [address] [place] [phone] Michael Snyder MD [address] [place] [address] 01/09/2024 1:00 PM EDT [facility] Visit [facility] [place], [facility] 132 [facility] [place] [address] Heath Zhang PA-C 132 [facility] [place] [address] 01/18/2024 10:00 AM EDT Home Visit [facility] [place], [facility] 132 [facility] [place] [address] Jenifer Linder, RN 132 [facility] [place] [address] 01/19/2024 4:45 PM EDT Imaging Radiology [address] 132 [facility] [place] [address] 01/26/2024 9:50 AM EDT Office Visit Vascular Surgery, [address] [place] [address] Mikhail Suazo MD [address] [place] [address] 03/28/2024 3:20 PM EST Office Visit Sleep Disorders Ctr [facility] 132 [place] [address] Shanika Fitzgerald, 132 [facility] [place], [place] [address] 04/03/2024 10:30 AM EST PulmDiagnostic Pulmonary Function Lab, [address] [place] [address] West, Pft 132 [facility] [address] 04/03/2024 11:00 AM EST PulmDiagnostic Pulmonary Function Lab, [facility] 132 [facility] [place] [address] West, Pft 132 [facility] [address] 04/03/2024 1:40 PM EST Office Visit Pulmonary Medicine, [address] [place] [address] Devin Hodge MD [address] [place] [address] 04/24/2024 6:00 PM EST Office Visit [facility] [address] [place] [address] Jairo Kingston MD [address] [place] [address] Scheduled Procedures Name Priority Associated Diagnoses Date/Ti [...] this encounter Medical Devices Implanted Type Area International Operations Manager Device Identifier Shelf Expiration Date Model / Serial / Lot Graft Hemlandonld 20mm [id number] - [id number] Implanted:Qty: 1 on 01/13/2009 at [place] [facility] N/A: Abdomen MICROVASIVE [id number] / / [id number] Clip Resolution 360 Endo 235cm - [id number] Implanted:Qty: 1 on 12/10/2022 by Lacie England MD at OR [facility] [employer] : ENDOSCOPY [id number] 07/02/2025 [id number] / / [id number] Clip Resolution 360 Endo 235cm - [id number] Implanted:Qty: 1 on 12/10/2022 by Lacie England MD at OR [facility] [employer] : ENDOSCOPY [id number] 07/02/2025 [id number] / / [id number] Stent Biliary Adult L30mm Dia1 - [id number] Implanted:Qty: 1 on 10/26/2023 by Lacie England MD at OR [facility] COOK : JOHANNA COURTNEY [id number] 06/27/2026 [id number] / / [id number] documented as of this encounter Advance Directives Documents on File Type Date Recorded 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 Care Teams Federal Mediator Relationship Specialty Start Date End Date Jairo Kingston MD [address] [facility] [place] [address] PCP - General 12/21/05 documented as of this encounter
--- OUTSIDE RECORDS SUMMARY | 2024-04-26 11:00 | External Medical Summary | Summary of Care ---
Author Name Unknown Organization [facility] Address [address] [place] [address] Phone [phone] Care Team Providers Care Mothercraft Nurse Name Role Phone Jairo Kingston MD Primary Care Provider +1- [phone] Reason for Visit * Reason Comments Infusion Venofer Encounter Details Date Type Department Care Team (Latest Contact Info) Description 11/04/2023 2:00 PM EDT Hem/Onc Treatment Hematology/Oncology Treatment, [address] [phone] Hannah, Chair 10 Hem Onc [address] [address] Iron deficiency anemia due to chronic blood [...] 0.1 % Nasal Solution (Astelin) Administer 1 [place] into nostril in the morning and 1 [place] before bedtime. 30 mL 1 3 Active [...] 2:00 PM EDT Hem/Onc Treatment Hematology/Oncology Treatment, [place] [facility] [phone] Hannah, Chair 9 Hem Onc [address] [place] [address] 12/13/2023 3:00 PM EDT Office Visit Nephrology, [facility] 200 [facility] [place] [address] Reggie Azevedo MD 200 [facility] [place] [address] 12/14/2023 9:15 AM EDT Office Visit Hematology/Oncology [facility] [place] 200 [facility] [place] [phone] Michael Snydre MD 200 [facility] [address] 01/09/2024 1:00 PM EDT [facility] Visit [facility] [place], [facility] [address] [place] [address] Heath Zhang PA-C [address] [place] [address] 01/18/2024 10:00 AM EDT [facility] Visit [facility], [facility] [address] [address] Jenifer Linder, RN [address] [place] [address] 01/19/2024 4:45 PM EDT Imaging Radiology [address] 132 [facility] [place] [address] 01/26/2024 9:50 AM EDT Office Visit Vascular Surgery, [address] [place] [address] Mikhail Suazo MD [address] [facility] [place], [place] [address] 03/28/2024 3:20 PM EST Office Visit Sleep Disorders Ctr [facility] 132 [facility] [place] [phone] Shanika Fitzgerald, 132 [facility] [place] [address] 04/03/2024 10:30 AM EST PulmDiagnostic Pulmonary Function Lab, [facility] 132 [facility] [place] [address] West, Pft 132 [facility] [place] [address] 04/03/2024 11:00 AM EST PulmDiagnostic Pulmonary Function Lab, [facility] 132 [facility] [place] [address] West, [address]ft 132 [facility] [place] [address] 04/03/2024 1:40 PM EST Office Visit Pulmonary Medicine, [facility] 132 [facility] [place] [address] Devin Hodge MD [address] [place] [address] 04/24/2024 6:00 PM EST Office Visit [facility] [address] [facility], [place] [phone] Jairo Kingston MD [address] [facility] [place] [address] Scheduled Procedures Name Priority Associated Diagnoses Date/Ti [...] this encounter Medical Devices Implanted Type Area Tool Dispatcher Device Identifier Shelf Expiration Date Model / Serial / Lot Graft Hemasheild 20mm [id number] - [id number] Implanted:Qty: 1 on 01/13/2009 at OR [facility] N/A: Abdomen MICROVASIVE [id number] / / [id number] Clip Resolution 360 Endo 235cm - [id number] Implanted:Qty: 1 on 12/10/2022 by Lacie England MD at OR [facility] [employer] : ENDOSCOPY [id number] 07/02/2025 [id number] / / [id number] Clip Resolution 360 Endo 235cm - [id number] Implanted:Qty: 1 on 12/10/2022 by Lacie England MD at OR [facility] [employer] : ENDOSCOPY [id number] 07/02/2025 [id number] / / [id number] Stent Biliary Adult L30mm Dia1 - [id number] Implanted:Qty: 1 on 10/26/2023 by Lacie England MD at OR [facility] COOK : JOHANNA COURTNEY [id number] 06/27/2026 [id number] / / [id number] documented as of this encounter Procedures Procedure [...] PM EDT) nRBCs 11/04/2023 2:46 PM EDT [facility] 56-02 Blood Venous blood specimen / Unknown Venipuncture / Unknown 11/04/2023 2:04 PM EDT 11/04/2023 2:40 PM EDT [facility] BLOOD ORDER [facility] [address]- [address] [place] [phone] * (ABNORMAL) DIFFERENTIAL, AUTOMATED (11/04/2023 2:04 PM EDT) Pathologist [facility] WBC 9.43 4.00 - 10.80 K/uL 11/04/2023 2:46 PM EDT [facility] 56-02 Neutrophils % 66.5 40.0 - 75.0 % 11/04/2023 2:46 PM EDT [facility] 56-02 Lymphocytes % 14.3(L) 18.0 - 42.0 % 11/04/2023 2:46 PM EDT [facility] 56-02 Monocytes % 12.1(H) 1.0 - 11.0 % 11/04/2023 2:46 PM EDT [facility] 56-02 Eosinophils % 6.5(H) 0.0 - 6.0 % 11/04/2023 2:46 PM EDT [facility] 56-02 Basophils % 0.6 0.0 - 2.0 % 11/04/2023 2:46 PM EDT [facility] 56-02 Absolute Neutrophils 6.27 1.80 - 7.70 K/uL 11/04/2023 2:46 PM EDT [facility] 56-02 Absolute Lymphocytes 1.35 1.00 - 4.80 K/ul 11/04/2023 2:46 PM EDT [facility] Absolute Monocytes 1.14(H) 0.00 - 1.10 K/uL 11/04/2023 2:46 PM EDT [facility] Absolute Eosinophils 0.61 0.00 - 0.70 K/uL 11/04/2023 2:46 PM EDT [facility] Absolute Basophils 0.06 0.00 - 0.20 K/uL 11/04/2023 2:46 PM EDT [facility] Blood Venous blood specimen / Unknown Venipuncture / Unknown 11/04/2023 2:04 PM EDT 11/04/2023 2:40 PM EDT Sheri [facility] LAB BLOOD ORDER [facility] [address] [place] [address] * (ABNORMAL) CBC (11/04/2023 2:04 PM EDT) WBC 9.43 4.00 - 10.80 K/uL 11/04/2023 2:46 PM EDT [facility] RBC 2.97 4.50 - 5.25 M/uL 11/04/2023 2:46 PM EDT [facility] HGB 9.6(L) 14.0 - 16.8 g/dL 11/04/2023 2:46 PM EDT [facility] HCT 31.6(L) 40.0 - 48.4 % 11/04/2023 2:46 PM EDT [facility] MCV 106.4 82.0 - 99.5 fL 11/04/2023 2:46 PM EDT [facility] MCH 32.3 27.0 - 34.0 pg 11/04/2023 2:46 PM EDT [facility] MCHC 30.4 32.0 - 36.0 g/dL 11/04/2023 2:46 PM EDT [facility] RDW 15.3 11.5 - 15.5 % 11/04/2023 2:46 PM EDT [facility] [place] 56-02 PLT 308 140 - 400 K/uL 11/04/2023 2:46 PM EDT [facility] [place] 56-02 MPV 10.5 6.6 - 11.1 fL 11/04/2023 2:46 PM EDT [facility] [place] 56-02 Blood Venous blood specimen / Unknown Venipuncture / Unknown 11/04/2023 2:04 PM EDT 11/04/2023 2:40 PM EDT Sheri [facility] LAB BLOOD ORDER [facility] [place] 56-02 [address] [place] [address] * (ABNORMAL) IRON SCREEN, INCLUDING TIBC (11/04/2023 2:04 PM EDT) Iron 29(L) 45 - 176 ug/dL 11/04/2023 10:57 PM EDT [facility] Iron Binding Capacity 283 250 - 425 ug/dL 11/04/2023 10:57 PM EDT [facility] Transferrin Saturation Percent 10(L) 15 - 55 % 11/04/2023 10:57 PM EDT [facility] Blood Venous blood specimen / Unknown Venipuncture / Unknown 11/04/2023 2:04 PM EDT 11/04/2023 2:40 PM EDT Sheri [facility] LAB BLOOD ORDER [facility] [address] [place] [address] * FERRITIN (11/04/2023 2:04 PM EDT) Ferritin 190 30 - 400 ng/mL 11/05/2023 4:27 AM EDT [facility] Blood Venous blood specimen / Unknown Venipuncture / Unknown 11/04/2023 2:04 PM EDT 11/04/2023 2:40 PM EDT Sheri [facility]on [facility] LAB BLOOD ORDER [facility] [address] [place] [address] documented in this encounter Visit [...] Documents on File Type Date Recorded Patient Case Management Manager Expl anation Power of Supervisor Cell Efficiency 07/30/2022 POWER OF A TTORNEY * Full [...] and were consensually agreed upon. Care Teams Mothercraft Nurse Relationship Specialty Start Date End Date Jairo Kingston MD [address] [place] [address] PCP - General 12/21/05 documented as of this encounter
--- OUTSIDE RECORDS SUMMARY | 2024-04-26 11:00 | External Medical Summary | Summary of Care ---
Author Name Unknown Organization [facility] Address [address] [address] Phone [phone] Care Team Providers Care Dope Worker Name Role Phone Jairo Kingston MD Primary Care Provider +1- [phone] Reason for Visit * Reason Onset Date Comments [facility]: Maintenance 11/23/2023 Encounter Details Date Type Department Care Team (Late st Contact Info) Description 11/23/2023 Telephone [facility], [facility] [address] [place] [address] Jenifer Linder RN [address] [place] [address] [facility]: Maintenance Allergies Active Allergy [...] 0.1 % Nasal Solution (Astelin) Administer 1 Kerby into nostril in the morning and 1 Kerby before bedtime. 30 mL 1 01/11/2023 Active [...] directed to take for COPD exacerbation. Active Apixaban 2.5 MG Oral Tablet (Eliquis)Indications :Recurrent cerebrovascular accidents (CVAs) ([facility]) Take 1 Tablet by mouth in the morning and 1 Tablet before bedtime. 180 Tablet 1 11/23/2023 Active Albuterol Sulfate HFA 108 (90 Base) MCG/ACT Inhalation Aerosol SolutionIndications: COPD, group D, by GOLD 2017 classification ([facility]) Inhale 2 Puffs by mouth every 4 hours as needed for Wheezing. 54 g 6 11/23/2023 Active Hospital, Clinic, or Other Facility Administered Medication Ordered Dose Route Frequency Start Date End Date Status Albuterol Sulfate (Proventil) (2.5 MG/3ML) 0.083% inhalation solution 2.5 mgIndications:COPD, group D, by GOLD 2017 classification ([facility]) 2.5 mg NEBULIZER PRN 10/03/2023 [...] COPD, group D, by GOLD 2017 classification 01/08 /2024 Overview: Per COPD GOLD Classification Physical deconditioning [...] 0 11/11/2022 Last Assessment & Plan: Allopurinol manager long term care No new attacks GINNY [...] Miscellaneous Notes * Telephone Encounter - Kassy Lott OSA - 11/23/2023 4:27 PM EDT [place] is agreeable to return on 01/09/24 at 1pm with GINNY Kevin PA-C * Telephone Encounter - Jenifer Linder RN - 11/23/2023 10:58 AM EDT Pt in need of a return provider visit with Heath Zhang PA-C. Needs to be in person per pt request d/t [place] JOLLA. Please schedule in 4-5 weeks. Thank you documented in this encounter Plan of Treatment Upcoming Encounters Date Type Department Care Team (Late st Contact Info) Description 12/02/2023 2:00 PM EDT Hem/Onc Treatment Hematology/Oncology Treatment, [place] [address] [place] [address] Hannah, Chair 9 Hem Onc [facility] 200 [facility] [place], [place] [address] 12/13/2023 3:00 PM EDT Office Visit Nephrology, [facility] [address] [place], [place] [address] Reggie Azevedo MD [address] [place], [place] [address] 12/14/2023 9:15 AM EDT Office Visit Hematology/Oncology [facility] [place] [address] [facility] [place], [place] [phone] Michael Snyder MD [address] [place], [place] [address] 01/09/2024 1:00 PM EDT [facility] Visit [facility], [facility] [address] [place] [address] Heath Zhang PA-C [address] [place] [address] 01/18/2024 10:00 AM EDT [facility] Visit [facility] [place], [facility] [address] [place] [address] Jenifer Linder, RN 132 [facility] [place] [address] 01/19/2024 4:45 PM EDT Imaging Radiology [address] [place] [address] 01/26/2024 9:50 AM EDT Office Visit Vascular Surgery, [address] [place] [address] Mikhail Suazo MD [address] [place] [address] 03/28/2024 3:20 PM EST Office Visit Sleep Disorders Ctr [facility] 132 [facility] [place] [phone] Shanika Fitzgerald DO [address] [place] [address] 04/03/2024 10:30 AM EST PulmDiagnostic Pulmonary Function Lab, [facility] 132 [facility] [place] [address] [place], Pft 132 [facility] [place] [address] 04/03/2024 11:00 AM EST PulmDiagnostic Pulmonary Function Lab, [facility] 132 [facility] [place] [address] [address], [address]ft 132 [facility] [place] [address] 04/03/2024 1:40 PM EST Office Visit Pulmonary Medicine, [facility] [address] [facility] [place] [address] Devin Hodge MD [address] [place] [address] 04/24/2024 6:00 PM EST Office Visit [facility] [address] [facility] [phone] Jairo Kingston MD [address] [place] [facility] [address] Scheduled Procedures Name Priority Associated Diagnoses Date/Ti [...] this encounter Medical Devices Implanted Type Area Pressure Tester Operator Device Identifier Shelf Expiration Date Model / Serial / Lot Graft Hemasheild 20mm [id number] - [id number] Implanted:Qty: 1 on 01/13/[address] [facility] [place] Abdomen MICROVASIVE [id number] / / [id number] Clip Resolution 360 Endo 235cm - [id number] Implanted:Qty: 1 on 12/10/2022 by Lacie England MD at OR [facility] : ENDOSCOPY [id number] 07/02/2025 [id number] / / [id number] Clip Resolution 360 Endo 235cm - [id number] Implanted:Qty: 1 on 12/10/2022 by Lacie England MD at OR [facility] [employer] : ENDOSCOPY [id number] 07/02/2025 [id number] / / [id number] Stent Biliary Adult L30mm Dia1 - [id number] Implanted:Qty: 1 on 10/26/2023 by Lacie England MD at OR [facility] COOK : JOHANNA COURTNEY [id number] 06/27/2026 [id number] / / [id number] documented as of this encounter Advance Directives Documents on File Type Date Recorded Patient Sieve Maker Expl anation Power of Children'S Service Supervisor 07/30/2022 POWER OF A TTORNEY * [...] and were consensually agreed upon. Care Teams Dope Worker Relationship Specialty Start Date End Date Jairo Kingston MD [address] [place] [address] PCP - General 12/21/05 documented as of this encounter
--- OUTSIDE RECORDS SUMMARY | 2024-04-26 11:01 | External Medical Summary | Summary of Care ---
Author Name Unknown Organization [facility] Address [address] [place] [address] Phone [phone] Care Team Providers Care Scraper Tender Name Role Phone Jairo Kingston MD Primary Care Provider +1- [phone] Reason for Visit * Reason Onset Date Comments Order Request 11/07/2023 Encounter Details Date Type Department Care Team (Late st Contact Info) Description 11/07/2023 Telephone Vascular Surg [facility] [address] [place], [place] [phone] Mikhail Suazo MD [address] [place], [place] [phone] Order Request Allergies Active Allergy Reactions Criticality Noted Date Comments Pavan Inhibitors Other (Please comment) 0 Hyperkalemia documented as of this encounter (statuses as of 11/14/2023) Medications Medication Sig Dispensed Refills Start Date [...] 0.1 % Nasal Solution (Astelin) Administer 1 Cooter into nostril in the morning and 1 Cooter before bedtime. 30 mL 1 01/11/2023 Active [...] Metoprolol Tartrate 25 MG Oral Tablet (Lopressor) take one tablet by mouth in the morning and one tablet before bedtime 180 Tablet 3 08/24/2023 Active Potassium Chloride [...] directed to take for COPD exacerbation. Active Hospital, Clinic, or Other Facility Administered Medication Ordered Dose Route Frequency Start Date End Date Status Albuterol Sulfate (Proventil) (2.5 MG/3ML) 0.083% inhalation solution 2.5 mgIndications:COPD, group D, by GOLD 2017 classification ([facility]) 2.5 mg NEBULIZER PRN 10/03/2023 10/02/2024 Acti ve documented as of this encounter (statuses as of 11/14/2023) Active Problems Problem Noted Date Diagnosed Date [...] stage IV Last Assessment & Plan: Norisaiahc lopressor History of supraventricular tachycardia 11/12/19 Idiopathic [...] as of this encounter (statuses as of 11/14/2023) Resolved Problems Problem Noted Date Diagnosed Date [...] as of this encounter (statuses as of 11/14/2023) Immunizations Name Administration Dates Next Due COVID-19 [...] encounter Miscellaneous Notes * Telephone Encounter - Lorelei Najera OSA - 11/14/2023 8:29 AM EDT Scheduled [facility] * Telephone Encounter - Danna Ross OSA - 11/08/2023 1:26 PM EDT Called patient to schedule appointment with Dr. Suazo at [facility]. Left message for patient to return call * Telephone Encounter - Ayanna Zuniga LPN - 11/07/2023 1:[address] Scan is scheduled on 01/19/24 no need for new orders. Pt office appt for 02/08/24 has been cancelled. Please reach out to patient and schedule office visit. Ayanna Zuniga LPN 11/07/2023 1:42 PM * Telephone Encounter - Lorelei Najera OSA - 11/07/2023 1:27 PM EDT RTC in 1 year (January 2024) with non-contrast CT C/A/P with Dr. Suazo or sooner prn. This was thepatient's preference. Patients order was discontinued. Please place new order so patient can be scheduled rrh documented in this encounter Plan of Treatment Upcoming Encounters Date Type Department Care Team (Late st Contact Info) Description 11/18/2023 2:00 PM EDT Hem/Onc Treatment Hematology/[address]cology [address], [address] [phone] Hannah, Chair 8 Hem Onc [address] [place] [address] 12/02/2023 2:00 PM EDT Hem/Onc Treatment Hematology/Oncology Treatment, [place] [address] [facility] [place] [phone] Hannah, Chair 9 Hem Onc [address] [place] [address] 12/06/2023 8:30 AM EDT Home Visit [facility] 132 [facility] [place] [address] Jenifer Linder, RN [facility] [place] [address] 12/13/2023 3:00 PM EDT Office Visit Nephrology, [facility] Hannah [facility] [place] [address] [address] Reggie Azevedo MD 200 [facility] [place] [address] 12/14/2023 9:15 AM EDT Office Visit Hematology/Oncology [facility] [place] [address] [place] [address] Michael Snyder MD [address] [place] [address] 01/19/2024 4:45 PM EDT Imaging Radiology [facility] 1st [facility], [place] [facility] [place] [address] 01/26/2024 9:50 AM EDT Office Visit Vascular Surgery, [place] 400 [facility] [place] [address] Mikhail Suazo MD [address] [place] [facility] [place] [address] 03/28/2024 3:20 PM EST Office Visit Sleep Disorders Ctr [facility] 132 [facility] [place] [phone] Shanika Fitzgerald DO 132 [facility] [place] [address] 04/03/2024 10:30 AM EST PulmDiagnostic Pulmonary Function Lab, [facility] 132 [facility] [place] [address] [address], [address] 132 [facility] [place] [address] 04/03/2024 11:00 AM EST PulmDiagnostic Pulmonary Function Lab, [facility] 132 [facility] [place] [address] [address], [address] 132 [facility] [place] [address] 04/03/2024 1:40 PM EST Office Visit Pulmonary Medicine, [facility] 132 [facility] [place] [address] Devin Hodge MD [address] [place] [address] 04/24/2024 6:00 PM EST Office Visit [facility] [address] [facility] [place] [address] Jairo Kingston MD [address] [facility] [place] [phone] Scheduled Procedures Name Priority Associated Diagnoses Date/Ti me COLONOSCOPY FLEXIBLE PROXIMAL DIAGNOSTIC Recall History of colon polyps Health Maintenance Due Date Last Done Comments *COPD SEVERITY VERIFIED BY PFT 08/28/2022 Albumin/Creatinine Ratio 10/08/2022 10/08/2021 COVID-19 Vaccine ( season) 2022 02/19/2021, 06/19/2020, 05/22/2020 *CXR OR CT FOR COPD EVER 10/30/2023 Influenza Vaccine (FLU shot) (#1) 2023 01/10/2023, [...] this encounter Medical Devices Implanted Type Area Research Administrator Device Identifier Shelf Expiration Date Model / Serial / Lot Graft Hemasheild 20mm [id number] - [id number] Implanted:Qty: 1 on 01/13/2009 at OR [facility] [place] N/A: Abdomen MICROVASIVE [id number] / / [id number] Clip Resolution 360 Endo 235cm - [id number] Implanted:Qty: 1 on 12/10/2022 by Lacie England MD at OR [facility] : ENDOSCOPY [id number] 07/02/2025 [id number] / / [id number] Clip Resolution 360 Endo 235cm - [id number] Implanted:Qty: 1 on 12/10/2022 by Lacie England MD at OR [facility] : ENDOSCOPY [id number] 07/02/2025 [id number] / / [id number] Stent Biliary Adult L30mm Dia1 - [id number] Implanted:Qty: 1 on 10/26/2023 by Lacie England MD at OR [facility] [place] : JOHANNA COURTNEY [id number] 06/27/2026 [id number] / / [id number] documented as of this encounter Advance Directives Documents on File Type Date Recorded Patient Crown Wheel Assembler Expl anation Power of Deputy Chief Executive 07/30/2022 POWER OF A TTORNEY * Full [...] and were consensually agreed upon. Care Teams Scraper Tender Relationship Specialty Start Date End Date Jairo Kingston MD [address] [place] [address] PCP - General 12/21/05 documented as of this encounter
--- OUTSIDE RECORDS SUMMARY | 2024-04-26 11:01 | External Medical Summary | Summary of Care ---
Author Name Unknown Organization [facility] Address [address] [facility] [place] [place] [address] Phone [phone] Care Team Providers Care Parts Room Assistant Name Role Phone Jairo Kingston MD Primary Care Provider +1- [phone] Reason for Visit * Reason Onset Date Comments Appointment 11/15/2023 Encounter Details Date Type Department Care Team (Late st Contact Info) Description 11/15/2023 Telephone Hematology/Oncology Treatment, [place] [address] [place] [address] Sheri Hanson CRNP [address] [place] [address] Appointment Allergies Active Allergy Reactions Criticality Noted Date Comments Pavan Inhibitors Other (Please comment) 0 Hyperkalemia documented as of this encounter (statuses as of 11/16/2023) Medications Medication Sig Dispensed Refills Start Date [...] 0.1 % Nasal Solution (Astelin) Administer 1 Edroy into nostril in the morning and 1 Edroy before bedtime. 30 mL 1 01/11/2023 Active [...] as of this encounter (statuses as of 11/16/2023) Active Problems Problem Noted Date Diagnosed Date [...] as of this encounter (statuses as of 11/16/2023) Resolved Problems Problem Noted Date Diagnosed Date [...] as of this encounter (statuses as of 11/16/2023) Immunizations Name Administration Dates Next Due COVID-19 [...] Telephone Encounter - Mine Borja OSA - 11/16/2023 8:43 AM EDT Canceled and called and left detailed message regarding * Telephone Encounter - Jackie Herrera RN - 11/15/2023 5:03 PM EDT Patient was just here for Venofer 11/03 and he is supposed to be Venofer Q4 weekly now, not Q2 weekly. Scheduling: Please reach out to patient to ensure he knows he does not need to come for Venofer infusion on 11/17 since this Is too early. He will not be due for his next Venofer infusion until 12/01, which is already scheduled. Please confirm this with patient and remove patient from the schedule on 11/17. Thanks! documented in this encounter Plan of Treatment Upcoming Encounters Date Type Department Care Team (Late st Contact Info) Description 12/02/2023 2:00 PM EDT Hem/Onc Treatment Hematology/Oncology Treatment, [place] [address] [place] [address] Park, Chair 9 Hem Onc [facility] [address] [place] [address] 12/06/2023 8:30 AM EDT Home Visit [place] [facility], [facility] 132 [facility] [place] [address] Jenifer Linder RN 132 [facility] [place] [place] [address] 12/13/2023 3:00 PM EDT Office Visit Nephrology, [facility] [address] [place] [address] Reggie Azevedo MD [address] [place] [address] 12/14/2023 9:15 AM EDT Office Visit Hematology/Oncology [facility] [place] [address] [place] [phone] Michael Snyder MD [address] [place] [address] 01/19/2024 4:45 PM EDT Imaging Radiology [address], [place] [facility] [place] [address] 01/26/2024 9:50 AM EDT Office Visit Vascular Surgery, [address] [place] [address] Mikhail Suazo MD [address] [place] [address] 03/28/2024 3:20 PM EST Office Visit Sleep Disorders Ctr [facility] 132 [facility] [place] [phone] Shanika Fitzgerald DO 132 [facility] [place] [address] 04/03/2024 10:30 AM EST PulmDiagnostic Pulmonary Function Lab, [facility] 132 [facility] [place], [place] [address] West, [address]ft [address] [place] [address] [place] [address] 04/03/2024 11:00 AM EST PulmDiagnostic Pulmonary Function Lab, [facility] 132 [facility] [place] [address] [place], [address] [address] [place] [address] [place] [address] 04/03/2024 1:40 PM EST Office Visit Pulmonary Medicine, [address] [place] [address] Devin Hodge MD [address] [facility] [address] 04/24/2024 6:00 PM EST Office Visit [facility] [address] [place] [address] Jairo Kingston MD [address] [place] [address] Scheduled Procedures Name Priority Associated Diagnoses Date/Ti [...] Pneumococcal Vaccine: 65+ Years Completed 06/12/2015, 06/10/2014 Hepatitis C Screening Completed 05/24/2019, 017 RETIRED - COLONOSCOPY-EVERY 5 YRS AGES 18-100 [...] this encounter Medical Devices Implanted Type Area Pump Servicer Helper Device Identifier Shelf Expiration Date Model / Serial / Lot Graft Hemasheild 20mm [id number] - [id number] Implanted:Qty: 1 on 01/13/2009 [place] [facility] [place]A: Abdomen MICROVASIVE [id number] / / [id number] Clip Resolution 360 Endo 235cm - [id number] Implanted:Qty: 1 on 12/10/2022 by Lacie England MD at OR [facility] [employer] : ENDOSCOPY [id number] 07/02/2025 [id number] / / [id number] Clip Resolution 360 Endo 235cm - [id number] Implanted:Qty: 1 on 12/10/2022 by Lacie England MD at OR [facility] [employer] : ENDOSCOPY [id number] 07/02/2025 [id number] / / [id number] Stent Biliary Adult L30mm Dia1 - [id number] Implanted:Qty: 1 on 10/26/2023 by Lacie England MD at OR [facility] COOK : JOHANNA COURTNEY [id number] 06/27/2026 [id number] / / [id number] documented as of this encounter Advance Directives Documents on File Type Date Recorded Patient Ship Engines Operating Engineer Expl anation Power of Strip Cutter 07/30/2022 POWER OF A TTORNEY * Full [...] and were consensually agreed upon. Care Teams Parts Room Assistant Relationship Specialty Start Date End Date Jairo Kingston MD [address] [place] [address] PCP - General 12/21/05 documented as of this encounter
--- OUTSIDE RECORDS SUMMARY | 2024-04-26 11:01 | External Medical Summary | Summary of Care ---
Author Name Unknown Organization [facility] Address [address] [place] [address] Phone [phone] Care Team Providers Care Warp Dyeing Tender Name Role Phone Lalo Carias MD Primary Care Provider +1- [phone] Reason for Visit * Reason Onset Date Comments Medication Refill 11/23/2023 Encounter Details Date Type Department Care Team (Late st Contact Info) Description 11/23/2023 Refill [facility], [facility] [address] [place] [address] Jenifer Linder, RN [address] [place] [address] COPD, group D, by GOLD 2017 classification ([facility])*; Recurrent cerebrovascular accidents (CVAs) ([facility]) Allergies Active Allergy Reactions Criticality Noted [...] 0.1 % Nasal Solution (Astelin) Administer 1 [place] into nostril in the morning and 1 [place] before bedtime. 30 mL 1 3 Active [...] for Wheezing. 54 g 6 4 Active Albuterol Sulfate HFA 108 (90 [...] ICD-10 update of inactive term ARTERIAL INSUFFICIENCY/ISCHE XIOMRAA, LEFT LITTLE FINGER 12/29/2001 07/28/2004 Tobacco use [...] Telephone Encounter - Lalo Carias MD - 11/23/2023 10:52 AM EDTSigned Prescriptions: Disp Refills Apixaban 2.5 MG Oral Tablet (Eliquis) 180 Ta*1 Sig: Take 1 Tablet by mouth in the morning and 1 Tablet before bedtime.Authorizing Provider: LALO CARIAS Albuterol Sulfate HFA 108 (90 Base) MCG/AC*54 g 6 Sig: Inhale 2 Puffs by mouth every 4 hours as needed for Wheezing.Authorizing Provider: LALO CARIAS * Telephone Encounter - Jenifer Linder RN - 11/23/2023 10:47 AM EDT Pt in need of refills for Eliquis and Albuterol Hfa Orders pended for your review and signature. Pharmacy is [facility]. Thank you! documented in this encounter Plan of Treatment Upcoming Encounters Date Type Department Care Team (Late st Contact Info) Description 12/02/2023 2:00 PM EDT Hem/Onc Treatment Hematology/Oncology Treatment, [place] [address] [facility], [place] [phone] Hannha, Chair 9 Hem Onc [address] [place] [address] 12/13/2023 3:00 PM EDT Office Visit Nephrology, [address] [place] [address] Reggie Azevedo MD [address] [place] [address] [place] [address] 12/14/2023 9:15 AM EDT Office Visit Hematology/Oncology [facility] [place] [address] [facility] [place] [address] Michael Snyder MD [address] [facility] [place] [address] 01/18/2024 10:00 AM EDT [facility] Visit [facility] [address] [facility] [place] [address] Jenifer Linder, RN [address] [place] [address] 01/19/2024 4:45 PM EDT Imaging Radiology [address] 132 [facility] [place] [address] 01/26/2024 9:50 AM EDT Office Visit Vascular Surgery, [address] [place] [address] Mikhail Suazo MD [address] [facility], [place] [address] 03/28/2024 3:20 PM EST Office Visit Sleep Disorders Ctr [facility] 132 [facility] [place] [phone] Shanika Fitzgerald DO [address] [facility] [place] [address] 04/03/2024 10:30 AM EST PulmDiagnostic Pulmonary Function Lab, [facility] [address] [facility] [place] [address] [place], [place] 132 [facility] [place] [address] 04/03/2024 11:00 AM EST PulmDiagnostic Pulmonary Function Lab, [facility] 132 [facility] [place] [address] [place], [place] 132 [facility] [place] [address] 04/03/2024 1:40 PM EST Office Visit Pulmonary Medicine, [facility] 132 [facility] [place] [address] Devin Hodge MD [address] [place] [address] 04/24/2024 6:00 PM EST Office [facility] [address] [facility] [place] [address] Lalo Carias MD [address] [place] [address] Scheduled Procedures Name Priority Associated Diagnoses Date/Ti [...] this encounter Medical Devices Implanted Type Area Ventilating Equipment Installer Device Identifier Shelf Expiration Date Model / Serial / Lot Graft Hemasheild 20mm [id number] - [id number] Implanted:Qty: 1 on 01/13/2009 at OR [facility] N/A: Abdomen MICROVASIVE [id number] / / [id number] Clip Resolution 360 Endo 235cm - [id number] Implanted:Qty: 1 on 12/10/2022 by Lacie England MD at OR [facility] [employer] : ENDOSCOPY [id number] 07/02/2025 [id number] / / [id number] Clip Resolution 360 Endo 235cm - [id number] Implanted:Qty: 1 on 12/10/2022 by Lacie England MD at OR [facility] [employer] : ENDOSCOPY [id number] 07/02/2025 [id number] / / [id number] Stent Biliary Adult L30mm Dia1 - [id number] Implanted:Qty: 1 on 10/26/2023 by Lacie England MD at OR [facility] COOK : JOHANNA COURTNEY [id number] 06/27/2026 [id number] / / [id number] documented as of this encounter Visit Diagnoses Diagnosis COPD, group D, by GOLD 2017 classification (HCC)- Primary Recurrent cerebrovascular accidents (CVAs) (HCC) documented in this encounter Advance Directives Documents on File Type Date Recorded Patient Unit Manager Expl anation Power of Channel Turner 07/30/2022 POWER OF A TTORNEY * Full [...] and were consensually agreed upon. Care Teams Warp Dyeing Tender Relationship Specialty Start Date End Date Lalo Carias MD [address] [place] [address] PCP - General 12/21/05 documented as of this encounter
--- OUTSIDE RECORDS SUMMARY | 2024-04-26 11:01 | External Medical Summary | Summary of Care ---
Author Name Unknown Organization [facility] Address [address] [place] [address] Phone [phone] Care Team Providers Care Medical Records Administrator Name Role Phone Jairo Kingston MD Primary Care Provider +1- [phone] Reason for Visit * Reason Comments [facility]: Maintenance Encounter Details Date Type Department Care Team (Late st Contact Info) Description 10/28/2023 4:00 PM EDT [facility] Visit [facility], [facility] [address] [place] [address] Jenifer Linder RN [address] [place] [address] Allergies Active Allergy Reactions Criticality Noted Date Comments Pavan Inhibitors Other (Please comment) 0 Hyperkalemia documented as of this encounter (statuses as of 11/22/2023) Medications Medication Sig Dispensed Refills Start Date [...] 0.1 % Nasal Solution (Astelin) Administer 1 [place] into nostril in the morning and 1 [place] before bedtime. 30 mL 1 01/11/2023 Active [...] group D, by GOLD 2017 classification ([facility]) 2.5 mg NEBULIZER PRN 10/03/2023 10/02/2024 Acti ve documented as of this encounter (statuses as of 11/22/2023) Active Problems Problem Noted Date Diagnosed Date [...] as of this encounter (statuses as of 11/22/2023) Resolved Problems Problem Noted Date Diagnosed Date [...] as of this encounter (statuses as of 11/22/2023) Immunizations Name Administration Dates Next Due COVID-19 [...] Sign Reading Time Taken Comments Blood Pressure 138/78 10/28/2023 4:19 PM EDT Pulse 74 10/28/2023 4:19 PM EDT Temperature 36.9 C (98.4 F) 10/28/2023 4 :19 PM EDT Respiratory Rate 18 10/28/2023 4:19 PM EDT Oxygen Saturation 93% 10/28/2023 4:1 9 PM EDT o2 on at 3 l/m via nc Inhaled Oxygen Concentration - - Weight - [...] Progress Notes * Jenifer Linder RN - 10/28/2023 3:57 PM EDT [facility] Off Visit Date: 10/28/2023 Time: 3:57 PM Name: Mikhail Fung : 1950 Current Concerns: Pt seen for ADRIANA #1 Admitted to [facility] 10/20 - 10/27/23 for SBO Had EGD for axios removal and replacement with double pigtail plastic stent while inpatient Pt reports he is feeling better today He did have a feeling of head feeling full and "stuffy" yesterday and this morning but felt better after eating lunch No bowel movement yet but report passing gas and states "feels like I am going to go soon" Denies abdominal pain or nausea He reports he missed his scheduled iron infusion d/t being hospitalized TE sent to heme/onc scheduling to see if this can be rescheduled Dtr present for visit also and denies any concerns at this time Meds reviewed and no concerns at this time Physical Exam: BP 138/78 | Pulse 74 | Temp 36.9 C (98.4 F) | Resp 18 | SpO2 93% Comment: o2 on at 3 l/m via nc Pain 0 Physical Exam Constitutional: General: He is not in acute distress. Cardiovascular: Rate and Rhythm: Normal rate and regular rhythm. Pulses: Normal pulses. Heart sounds: Normal heart sounds. Pulmonary: Effort: Pulmonary effort is normal. Breath sounds: Normal breath sounds. Abdominal: General: Bowel sounds are normal. Palpations: Abdomen is soft. Skin: General: Skin is warm and dry. Neurological: Mental Status: He is alert and oriented to person, place, and time. Problems/Symptoms: Review of Systems Constitutional: Negative. HENT: Negative. Eyes: Negative. Respiratory: Positive for cough (chronic, mucus clear) and shortness of breath ([facility] - at baseline). Cardiovascular: Negative. Gastrointestinal: Negative. Genitourinary: Negative. Musculoskeletal: Positive for arthralgias. Skin: Negative. Neurological: Negative. Psychiatric/Behavioral: Negative. Medication Reconciliation: (See medication list) Does patient take medications as ordered: Yes Patient Well Being: PHQ2/9: No questionnaires available. No change in living situation Denies falls [facility]-10 Completed this Visit: Yes. [facility]: Reason Completed: Status post ED visit/hospital admission [facility]-10 Interventions: Fall education provided, reviewed/provided Fall brochure Advanced Care Planning: Healthcare POA. and POLST. Reinforcement/Education: COPD: Pt instructed to: -Call [...] more dizzy Patient Needs to Remember: Call [facility] at with any new or worsening health concerns or problems, red flag symptoms. Referrals Needed: Other none Follow Up: Is there cellular connectivity/connectivity in the home? Yes Does the patient have internet in the home? Yes Patient encouraged to call the intake phone number for all urgent but not emergent issues. Is the patient new to [employer] [facility] within the last 30 days? No, Assess appropriateness for upcoming telehealth visits. Cancel telehealth visits & schedule home visit with care care team coordinator scheduler(s)as indicated. Provider is in agreement with Plan of Care: Yes Scheduled to follow up with patient in 2 weeks. Jenifer Linder RN 10/28/2023 3:57 PM documented in this encounter Plan of Treatment Upcoming Encounters Date Type Department Care Team (Late st Contact Info) Description 11/23/2023 10:00 AM EDT [facility] [place] [address] Jenifer Linder RN 132 [facility] [place] [address] 12/02/2023 2:00 PM EDT Hem/Onc Treatment Hematology/Oncology Treatment, [place] [address] [place] [phone] Hannah, Chair 9 Hem Onc [address] [place] [address] 12/13/2023 3:00 PM EDT Office Visit Nephrology, [address] [place] [address] Reggie Azevdeo MD [address] [facility] [place] [address] 12/14/2023 9:15 AM EDT Office Visit Hematology/Oncology [facility] [place] [address] [facility] [place] [phone] Michael Snyder MD [address] [facility] [place] [address] 01/19/2024 4:45 PM EDT Imaging Radiology [address], [place] [address] [place] [address] 01/26/2024 9:50 AM EDT Office Visit Vascular Surgery, [address] [place] [address] Mikhail Suazo MD [address] [facility] [place] [address] 03/28/2024 3:20 PM EST Office Visit Sleep Disorders Ctr [facility] 132 [facility] [place] [phone] Shanika Fitzgerald, 132 [facility] [place] [address] 04/03/2024 10:30 AM EST PulmDiagnostic Pulmonary Function Lab, [facility] 132 [facility] [place] [address] [place], [place] [address] [facility] [address] 04/03/2024 11:00 AM EST PulmDiagnostic Pulmonary Function Lab, [facility] [address] [facility] [place] [address] [place], [place] 132 [facility] [address] 04/03/2024 1:40 PM EST Office Visit Pulmonary Medicine, [address] [place] [address] Devin Hodge MD [address] [facility] [address] 04/24/2024 6:00 PM EST Office Visit [facility] [address] [facility] [phone] Jairo Kingston MD [address] [place] [address] Scheduled Procedures Name Priority Associated Diagnoses Date/Ti [...] this encounter Medical Devices Implanted Type Area Mobile Designer Device Identifier Shelf Expiration Date Model / Serial / Lot Graft Hemasheild 20mm [id number] - [id number] Implanted:Qty: 1 on 01/13/2009 at OR [facility] N/A: Abdomen MICROVASIVE [id number] / / [id number] Clip Resolution 360 Endo 235cm - [id number] Implanted:Qty: 1 on 12/10/2022 by Lacie England MD at OR [facility] [employer] : ENDOSCOPY [id number] 07/02/2025 [id number] / / [id number] Clip Resolution 360 Endo 235cm - [id number] Implanted:Qty: 1 on 12/10/2022 by Lacie England MD at OR [facility] [employer] : ENDOSCOPY [id number] 07/02/2025 [id number] / / [id number] Stent Biliary Adult L30mm Dia1 - [id number] Implanted:Qty: 1 on 10/26/2023 by Lacie England MD at OR [facility] COOK : JOHANNA COURTNEY [id number] 06/27/2026 [id number] / / [id number] documented as of this encounter Advance Directives Documents on File Type Date Recorded Patient Concrete Crusher Loader Operator Expl anation Power of Radiological Defense Officer 07/30/2022 POWER OF A TTORNEY * Full [...] and were consensually agreed upon. Care Teams Medical Records Administrator Relationship Specialty Start Date End Date Jairo Kingston MD [address] [facility] [place] [address] PCP - General 12/21/05 documented as of this encounter
--- OUTSIDE RECORDS SUMMARY | 2024-04-26 11:02 | External Medical Summary | Summary of Care ---
Author Name Unknown Organization [facility] Address [address] [place] [address] Phone [phone] Care Team Providers Care Hand Spring Former Name Role Phone Jairo Kingston MD Primary Care Provider +1- [phone] Encounter Details Date Type Department Care Team (Late st Contact Info) Description 11/08/2023 Population Health External Data Unspecified Department Allergies Active Allergy Reactions Criticality Noted Date Comments Pavan Inhibitors Other (Please comment) 0 Hyperkalemia documented as of this encounter (statuses as of 11/11/2023) Medications Medication Sig Dispensed Refills Start Date [...] 0.1 % Nasal Solution (Astelin) Administer 1 [place] into nostril in the morning and 1 [place] before bedtime. 30 mL 1 01/11/2023 Active [...] as of this encounter (statuses as of 11/11/2023) Active Problems Problem Noted Date Diagnosed Date [...] as of this encounter (statuses as of 11/11/2023) Resolved Problems Problem Noted Date Diagnosed Date [...] as of this encounter (statuses as of 11/11/2023) Immunizations Name Administration Dates Next Due COVID-19 [...] 2:00 PM EDT Hem/Onc Treatment Hematology/Oncology Treatment, [place] [address] [facility] [phone] Hannah, Chair 8 Hem Onc [place] [address] [place] [address] 12/02/2023 2:00 PM EDT Hem/Onc Treatment Hematology/Oncology Treatment, [place] 200 [facility] [place] [phone] Hannah, Chair 9 Hem Onc [place] [address] [place] [address] 12/06/2023 8:30 AM EDT [facility] Visit [facility] 132 [facility] [place] [address] Jenifer Linder RN 132 [facility] [place] [address] 12/13/2023 3:00 PM EDT Office Visit Nephrology, [place] [address] Reggie Azevedo MD [address] [place] [address] [address] 12/14/2023 9:15 AM EDT Office Visit Hematology/[place] [address] Michael Snyder MD [address] [place] [address] 01/19/2024 4:45 PM EDT Imaging Radiology [facility] 132 [facility] [place], [place] [address] 01/26/2024 9:50 AM EDT Office Visit Vascular Surgery, [place] [address] [place] [address] Mikhail Suazo MD [address] [place] [place] [address] 03/28/2024 3:20 PM EST Office Visit Sleep Disorders Ctr [facility] 132 [facility] [place] [phone] Shanika Fitzgerald DO 132 [facility] [place], [place] [address] 04/03/2024 10:30 AM EST PulmDiagnostic Pulmonary Function Lab, [facility] 132 [facility] [place] [address] [place], [place] 132 [place] [place] [address] 04/03/2024 11:00 AM EST PulmDiagnostic Pulmonary Function Lab, [facility] [address] [facility] [place] [address] [place], [place] [address] [place] [place] [address] 04/03/2024 1:40 PM EST Office Visit Pulmonary Medicine, [facility] [address] [facility] [place] [address] Devin Hodge MD [address] [place] [address] 04/24/2024 6:00 PM EST Office Visit [facility] [address] [place] [address] Jairo Kingston MD [address] [place] [address] Scheduled Procedures Name Priority Associated Diagnoses [...] this encounter Medical Devices Implanted Type Area Bias Machine Operator Device Identifier Shelf Expiration Date Model / Serial / Lot Graft Hemasheild 20mm [id number] - [id number] Implanted:Qty: 1 on 01/13/2009 at [place] [facility] N/A: Abdomen MICROVASIVE [id number] / / [id number] Clip Resolution 360 Endo 235cm - [id number] Implanted:Qty: 1 on 12/10/2022 by Lacie England MD at OR [facility] [employer] : ENDOSCOPY [id number] 07/02/2025 [id number] / / [id number] Clip Resolution 360 Endo 235cm - [id number] Implanted:Qty: 1 on 12/10/2022 by Lacie England MD at OR [facility] [employer] : ENDOSCOPY [id number] 07/02/2025 [id number] / / [id number] Stent Biliary Adult L30mm Dia1 - [id number] Implanted:Qty: 1 on 10/26/2023 by Lacie England MD at OR [facility] ROZ : JOHANNA COURTNEY [id number] 06/27/2026 [id number] / / [id number] documented as of this encounter Advance Directives Documents on File Type Date Recorded Patient Mine Engineering Superintendent Expl anation Power of Universal Grinder Tool 07/30/2022 POWER OF A TTORNEY * Full [...] and were consensually agreed upon. Care Teams Hand Spring Former Relationship Specialty Start Date End Date Jairo Kingston MD [address] [place] [address] PCP - General 12/21/05 documented as of this encounter
--- OUTSIDE RECORDS SUMMARY | 2024-04-26 11:02 | External Medical Summary | Summary of Care ---
Author Name Unknown Organization [facility] Address [address] [place] [address] Phone [phone] Care Team Providers Care Clutch Assembler Name Role Phone Jairo Kingston MD Primary Care Provider +1- [phone] Reason for Visit * Reason Comments eRx-Medication Refill Encounter Details Date Type Department Care Team (Late st Contact Info) Description 11/09/2023 Refill [facility] [address] [place] [address] Jairo Kingston MD [address] [place] [address] Allergies Active Allergy Reactions Criticality Noted Date Comments Pavan Inhibitors Other (Please comment) 0 Hyperkalemia documented as of this encounter (statuses as of 11/09/2023) Medications Medication Sig Dispensed Refills Start Date [...] 0.1 % Nasal Solution (Astelin) Administer 1 [place] into nostril in the morning and 1 [place] before bedtime. 30 mL 1 01/11/2023 Active [...] as of this encounter (statuses as of 11/09/2023) Active Problems Problem Noted Date Diagnosed Date [...] as of this encounter (statuses as of 11/09/2023) Resolved Problems Problem Noted Date Diagnosed Date [...] as of this encounter (statuses as of 11/09/2023) Immunizations Name Administration Dates Next Due COVID-19 [...] Notes * Telephone Encounter - Joaquin Garcia [facility] - 11/09/2023 8:44 AM EDTRefused Prescriptions: Disp Refills Klor-Con M10 10 MEQ Oral Tablet Extended R*12 Tab*0 Sig: TAKE 1TABLET BY MOUTH ONCE A DAY ON TUESDAY, TUESDAY, AND TUESDAY ONLY.Refused By: JOAQUIN WHEELER [facility] for Refusal: Other (comment below)Reason for Refusal Comment: filled at [facility] 08/26/23 with refills--- documented in this encounter Plan of Treatment Upcoming Encounters Date Type Department Care Team (Late st Contact Info) Description 11/18/2023 2:00 PM EDT Hem/Onc Treatment Hematology/Oncology Treatment, [place] [facility] [address] Hannah, Chair 8 Hem [address]c [address] [address] 12/02/2023 2:00 PM EDT Hem/Onc Treatment Hematology/Oncology Treatment, [place] [address] [place] [phone] Park, Chair 9 Hem Onc Scene [address] [place] [address] 12/06/2023 8:30 AM EDT [facility] 132 [facility] [place] [address] Jenifer Linder, CHRISSY 132 [facility] [place] [address] 12/13/2023 3:00 PM EDT Office Visit Nephrology, [facility] [address] [place] [address] Reggie Azevedo MD [address] [place] [address] 12/14/2023 9:15 AM EDT Office Visit Hematology/Oncology [facility] [place] [address] [place] [phone] Michael Snyder MD [address] [place] [address] 01/19/2024 4:45 PM EDT Imaging Radiology [facility] 1st Floor, [place] 132 [facility] [place] [address] 03/28/2024 3:20 PM EST Office Visit Sleep Disorders Ctr [facility] 132 [facility] [place] [phone] Shanika Fitzgerald DO 132 [facility] [place] [address] 04/03/2024 10:30 AM EST PulmDiagnostic Pulmonary Function Lab, [facility] 132 [facility] [place] [address] West, Pft 132 [facility] [place] [address] 04/03/2024 11:00 AM EST PulmDiagnostic Pulmonary Function Lab, [facility] 132 [facility] [place] [address] West, Pft 132 [facility] [place] [address] 04/03/2024 1:40 PM EST Office Visit Pulmonary Medicine, [facility] 132 [facility] [place] [address] Devin Hodge MD [address] [place] [address] 04/24/2024 6:00 PM EST Office Visit [facility] [address] [place] [phone] Jairo Kingston MD [address] [place], [place] [phone] Scheduled Procedures Name Priority Associated Diagnoses Date/Ti [...] this encounter Medical Devices Implanted Type Area Sales Development Manager Device Identifier Shelf Expiration Date Model / Serial / Lot Graft Hemasheild 20mm [id number] - [id number] Implanted:Qty: 1 on 01/13/2009 at OR [facility] N/A: Abdomen MICROVASIVE [id number] / / [id number] Clip Resolution 360 Endo 235cm - [id number] Implanted:Qty: 1 on 12/10/2022 by Lacie England MD at OR [facility] : ENDOSCOPY [id number] 07/02/2025 [id number] / / [id number] Clip Resolution 360 Endo 235cm - [id number] Implanted:Qty: 1 on 12/10/2022 by Lacie England MD at OR [facility] : ENDOSCOPY [id number] 07/02/2025 [id number] / / [id number] Stent Biliary Adult L30mm Dia1 - [id number] Implanted:Qty: 1 on 10/26/2023 by Lacie England MD at OR [facility] C[facility] : JOHANNA COURTNEY [id number] 06/27/2026 [id number] / / [id number] documented as of this encounter Advance Directives Documents on File Type Date Recorded Patient Field Operations Farm Manager Expl anation Power of Family Literacy Coordinator 07/30/2022 POWER OF A TTORNEY * Full [...] and were consensually agreed upon. Care Teams Clutch Assembler Relationship Specialty Start Date End Date Jairo Kingston MD [address] [facility] [place] [phone] PCP - General 12/21/05 documented as of this encounter
--- OUTSIDE RECORDS SUMMARY | 2024-04-26 11:02 | External Medical Summary | Summary of Care ---
Author Name Unknown Organization [facility] Address [address] [place] [address] Phone [phone] Care Team Providers Care Residential Sales Name Role Phone Jairo Kingston MD Primary Care Provider +1- [phone] Reason for Visit * Reason Comments Infusion Venofer Encounter Details Date Type Department Care Team (Latest Contact Info) Description 11/04/2023 2:00 PM EDT Hem/Onc Treatment Hematology/Oncology Treatment, [address] [address] Park, Chair 10 Hem On[address] [address] Iron deficiency anemia due to chronic blood [...] 0.1 % Nasal Solution (Astelin) Administer 1 [place] into nostril in the morning and 1 [place] before bedtime. 30 mL 1 01/11/2023 Active [...] this encounter Nursing Notes * Stephanie Jack, CHRISSY - 11/04/2023 4:47 PM EDT Pt completed [...] Team (Late st Contact Info) Description 11/15/2023 10:00 AM EDT Home Visit [facility], [facility] 132 [facility] [place] [address] Jenifer Linder, RN 132 [facility] [place] [address] 11/18/2023 2:00 PM EDT Hem/Onc Treatment Hematology/Oncology Treatment, [place] [facility] [phone] Hannah, Chair 8 Hem Onc [facility] 200 [facility] [place] [address] 12/02/2023 2:00 PM EDT Hem/Onc Treatment Hematology/Oncology Treatment, [place] 200 [facility] [place]ane [place] [phone] Hannah, Chair 9 Hem Onc [address] [place] [address] 12/13/2023 3:00 PM EDT Office Visit Nephrology, [facility] 200 [facility] [place] [address] Reggie Azevedo MD 200 [facility] [place] [address] 12/14/2023 9:15 AM EDT Office Visit Hematology/Oncology [facility] [place] 200 [facility] [place] [phone] Michael Snyder MD 200 [facility] [place] [address] 01/19/2024 4:45 PM EDT Imaging Radiology [address], [place] 132 [facility] [place] [address] 03/28/2024 3:20 PM EST Office Visit Sleep Disorders Ctr Yasmeen Solorzano, [place] 132 [facility] [place] [phone] Shanika Fitzgerald, 132 [facility] [place] [address] 04/03/2024 10:30 AM EST PulmDiagnostic Pulmonary Function Lab, [facility] 132 [facility] [place] [address] West, Pft 132 [facility] [place] [address] 04/03/2024 11:00 AM EST PulmDiagnostic Pulmonary Function Lab, [facility] 132 [facility] [place] [address] West, Pft 132 [facility] [place] [address] 04/03/2024 1:40 PM EST Office Visit Pulmonary Medicine, [facility] 132 [facility] [place] [address] Devin Hodge MD [address] [place] [address] 04/24/2024 6:00 PM EST Office Visit [facility] [address] [place] [phone] Jairo Kingston MD [address] [place] [address] Scheduled Procedures Name Priority Associated Diagnoses Date/Ti [...] this encounter Medical Devices Implanted Type Area Ncqa Specialist Device Identifier Shelf Expiration Date Model / Serial / Lot Graft Hemasheild 20mm [id number] - [id number] Implanted:Qty: 1 on 01/13/2009 [place] [facility] [place]: Abdomen MICROVASIVE [id number] / / [id number] Clip Resolution 360 Endo 235cm - [id number] Implanted:Qty: 1 on 12/10/2022 by Lacie England MD at OR [facility] : ENDOSCOPY [id number] 07/02/2025 [id number] / / [id number] Clip Resolution 360 Endo 235cm - [id number] Implanted:Qty: 1 on 12/10/2022 by Lacie England MD at OR [facility] : ENDOSCOPY [id number] 07/02/2025 [id number] / / [id number] Stent Biliary Adult L30mm Dia1 - [id number] Implanted:Qty: 1 on 10/26/2023 by Lacie England MD at OR [facility] COOK : JOHANNA COURTNEY [id number] 06/27/2026 [id number] / / [id number] documented as of this encounter Procedures Procedure [...] DIFFERENTIAL, TECHNOLOGIST REVIEW (11/04/2023 2:04 PM EDT) [facility] nRBCs 11/04/2023 2:46 PM EDT [facility] 56 Blood Venous blood specimen / Unknown Venipuncture / Unknown 11/04/2023 2:04 PM EDT 11/04/2023 2:40 PM EDT Sheri Heredia Valentin [facility] [address] [place], [place] [phone] * (ABNORMAL) DIFFERENTIAL, AUTOMATED (11/04/2023 2:04 PM EDT) [facility] WBC 9.43 4.00 - 10.80 K/uL 11/04/2023 2:46 PM EDT [facility] 56- Neutrophils % 66.5 40.0 - 75.0 % 11/04/2023 2:46 PM EDT [facility] 56- Lymphocytes % 14.3(L) 18.0 - 42.0 % 11/04/2023 2:46 PM EDT [facility] 56 Monocytes % 12.1(H) 1.0 - 11.0 % 11/04/2023 2:46 PM EDT [facility] 56 Eosinophils % 6.5(H) 0.0 - 6.0 % 11/04/2023 2:46 PM EDT [facility] 56- Basophils % 0.6 0.0 - 2.0 % 11/04/2023 2:46 PM EDT [facility] 56- Absolute Neutrophils 6.27 1.80 - 7.70 K/uL 11/04/2023 2:46 PM EDT [facility] 56-02 Absolute Lymphocytes 1.35 1.00 - 4.80 K/ul 11/04/2023 2:46 PM EDT [facility] 56- Absolute Monocytes 1.14(H) 0.00 - 1.10 K/uL 11/04/2023 2:46 PM EDT [facility] 56 Absolute Eosinophils 0.61 0.00 - 0.70 K/uL 11/04/2023 2:46 PM EDT [facility] 5602 Absolute Basophils 0.06 0.00 - 0.20 K/uL 11/04/2023 2:46 PM EDT [facility] 56 Blood Venous blood specimen / Unknown Venipuncture / Unknown 11/04/2023 2:04 PM EDT 11/04/2023 2:40 PM EDT Sheri Heredia Valentin [facility] [address] [place] [address] * (ABNORMAL) CBC (11/04/2023 2:04 PM EDT) WBC 9.43 4.00 - 10.80 K/uL 11/04/2023 2:[address] RBC 2.97 4.50 - 5.25 M/uL 11/04/2023 2:46 [address] EDT [address] HGB 9.6(L) 14.0 - 16.8 g/dL 11/04/2023 2:[address]T [address] HCT 31.6(L) 40.0 - 48.4 % 11/04/2023 2:46 PM EDT [facility] 56 MCV 106.4 82.0 - 99.5 fL 11/04/2023 2:46 [address] EDT [address] MCH 32.3 27.0 - 34.0 pg 11/04/2023 2:46 PM EDT [facility] 56 MCHC 30.4 32.0 - 36.0 g/dL 11/04/2023 2:46 PM EDT [facility] 56 RDW 15.3 11.5 - 15.5 % 11/04/2023 2:46 PM EDT [facility] 56 PLT 308 140 - 400 K/uL 11/04/2023 2:46 PM EDT [facility] 56 MPV 10.5 6.6 - 11.1 fL 11/04/2023 2:46 PM EDT [facility] 56 Blood Venous blood specimen / Unknown Venipuncture / Unknown 11/04/2023 2:04 PM EDT 11/04/2023 2:40 PM EDT Sheri [facility] Performing Organization Address City/[facility]/ZIP Co de Phone Number [facility] [place] 56[address] [place] [address] * (ABNORMAL) IRON SCREEN, INCLUDING TIBC (11/04/2023 2:04 PM EDT) Iron 29(L) 45 - 176 ug/dL 11/04/2023 10:57 PM EDT [facility] Iron Binding Capacity 283 250 - 425 ug/dL 11/04/2023 10:57 PM EDT [facility] Transferrin Saturation Percent 10(L) 15 - 55 % 11/04/2023 10:57 PM EDT [facility] Blood Venous blood specimen / Unknown Venipuncture / Unknown 11/04/2023 2:04 PM EDT 11/04/2023 2:40 PM EDT Sheri [facility] Performing Organization Address [facility] Co de Phone Number [facility] [address] [place] [address] * FERRITIN (11/04/2023 2:04 PM EDT) Ferritin 190 30 - 400 ng/mL 11/05/2023 4:27 AM EDT [facility] Blood Venous blood specimen / Unknown Venipuncture / Unknown 11/04/2023 2:04 PM EDT 11/04/2023 2:40 PM EDT Sheri [facility] Performing Organization Address City/[facility]/ZIP Co de Phone Number [facility] [address] [place] [address] documented in this encounter Visit Diagnoses Diagnosis [...] Documents on File Type Date Recorded Patient Steward/[employer]ward[employer] Dining Car Expl anation Power of General Cleaner 07/30/2022 POWER OF A TTORNEY * Full [...] and were consensually agreed upon. Care Teams Residential Sales Relationship Specialty Start Date End Date Jairo Kingston MD [address] [place] [address] PCP - General 12/21/05 documented as of this encounter
--- OUTSIDE RECORDS SUMMARY | 2024-04-26 11:02 | External Medical Summary | Summary of Care ---
Author Name Unknown Organization [facility] Address [address] [place] [address] Phone [phone] Care Team Providers Care Rubber Heel And Sole Press Tender Name Role Phone Jairo Kingston MD Primary Care Provider +1- [phone] Reason for Visit * Reason Onset Date Comments Appointment 11/09/2023 Encounter Details Date Type Department Care Team (Late st Contact Info) Description 11/09/2023 Telephone [facility] [place] [address] [place] [address] Services, Scheduling [address] [place] [address] Appointment Allergies Active Allergy Reactions Criticality Noted [...] 0.1 % Nasal Solution (Astelin) Administer 1 [place] into nostril in the morning and 1 [place] before bedtime. 30 mL 1 01/11/2023 Active [...] encounter Miscellaneous Notes * Telephone Encounter - Yelena Doyle OSA - 11/09/2023 8:48 AM EDT Request to move appt on 11/14, lmom and set appt for 11/23 documented in this encounter Plan of Treatment Upcoming Encounters Date Type Department Care Team (Late st Contact Info) Description 11/18/2023 2:00 PM EDT Hem/Onc Treatment Hematology/Oncology Treatment, [place] [facility] [phone] Hannah, Chair 8 Hem Onc [address] [place] [address] [place] [address] 12/02/2023 2:00 PM EDT Hem/Onc Treatment Hematology/Oncology Treatment, [place] 200 [facility] [place] [phone] Hannah, Chair 9 Hem Onc [address] [place] [address] [place] [address] 12/06/2023 8:30 AM EDT Home Visit [facility] [place], [address] [place] [phone] Jenifer Linder RN [address] [place] [address] 12/13/2023 3:00 PM EDT Office Visit Nephrology, [facility] [address] [place], [place] [address] Reggie Azevedo MD [address] [place] [address] 12/14/2023 9:15 AM EDT Office Visit Hematology/Oncology [facility] [address] [place], [place] [phone] Michael Snyder MD [address] [place] [address] 01/19/2024 4:45 PM EDT Imaging Radiology [facility]st [facility], [place] 132 [facility] [place] [address] 03/28/2024 3:20 PM EST Office Visit Sleep Disorders Ctr [facility] 132 [facility] [place] [phone] Shanika Fitzgerald, DO [address] [place] [address] 04/03/2024 10:30 AM EST PulmDiagnostic Pulmonary Function Lab, [facility] 132 [facility] [place] [address] West, Pft [facility] [place] [address] 04/03/2024 11:00 AM EST PulmDiagnostic Pulmonary Function Lab, [facility] 132 [facility] [place] [address] West, Pft 132 [facility] [place] [address] 04/03/2024 1:40 PM EST Office Visit Pulmonary Medicine, [facility] [address] [place] [address] Devin Hodge MD [address] [place] [address] 04/24/2024 6:00 PM EST Office Visit [facility] [address] [facility] [address] Jairo Kingston MD [address] [facility] [phone] Scheduled Procedures Name Priority Associated Diagnoses Date/Ti [...] this encounter Medical Devices Implanted Type Area Yacht Hand Device Identifier Shelf Expiration Date Model / Serial / Lot Graft Hemasheild 20mm [id number] - [id number] Implanted:Qty: 1 on 01/13/2009 at [place] [facility] N/A: Abdomen MICROVASIVE [id number] / / [id number] Clip Resolution 360 Endo 235cm - [id number] Implanted:Qty: 1 on 12/10/2022 by Lacie England MD at OR [facility] : ENDOSCOPY [id number] 07/02/2025 [id number] / / [id number] Clip Resolution 360 Endo 235cm - [id number] Implanted:Qty: 1 on 12/10/2022 by Lacie England MD at OR [facility] : ENDOSCOPY [id number] 07/02/2025 [id number] / / [id number] Stent Biliary Adult L30mm Dia1 - [id number] Implanted:Qty: 1 on 10/26/2023 by Lacie England MD at OR [facility] : JOHANNA COURTNEY [id number] 06/27/2026 [id number] / / [id number] documented as of this encounter Advance Directives Documents on File Type Date Recorded Patient Labor Delivery Rn Expl anation Power of Literacy Specialist 07/30/2022 POWER OF A TTORNEY * [...] and were consensually agreed upon. Care Teams Rubber Heel And Sole Press Tender Relationship Specialty Start Date End Date Jairo Kingston MD [address] [place] [facility] [place] [address] PCP - General 12/21/05 documented as of this encounter
--- OUTSIDE RECORDS SUMMARY | 2024-04-26 11:02 | External Medical Summary | Summary of Care ---
Author Name Unknown Organization [facility] Address [address] [place] [address] Phone [phone] Care Team Providers Care Cafe Team Member Name Role Phone Jairo Kingston MD Primary Care Provider +1- [phone] Reason for Visit * Reason Onset Date Comments Order Request 11/07/2023 Encounter Details Date Type Department Care Team (Late st Contact Info) Description 11/07/2023 Telephone Vascular Surg [facility] [address] [place], [place] [phone] Mikhail Suazo MD [address] [place], [place] [phone] Order Request Allergies Active Allergy Reactions Criticality [...] 0.1 % Nasal Solution (Astelin) Administer 1 [place] into nostril in the morning and 1 [place] before bedtime. 30 mL 1 01/11/2023 Active [...] 11/11/2022 Last Assessment & Plan: Allopurinol manager terminal No new attacks GINNY on CPAP [...] Miscellaneous Notes * Telephone Encounter - Danna Ross OSA - 11/08/2023 1:26 PM EDT Called patient to schedule appointment with Dr. Suazo at [facility]. Left message for patient to return call [...] new order so patient can be scheduled [facility] documented in this encounter Plan of Treatment Upcoming Encounters Date Type Department Care Team (Late st Contact Info) Description 11/18/2023 2:00 PM EDT Hem/Onc Treatment Hematology/Oncology Treatment, [address] [phone] Hannah, Chair 8 Hem Onc [address] [place] [address] 12/02/2023 2:00 PM EDT Hem/Onc Treatment Hematology/Oncology Treatment, [address] [phone] Hannah, Chair 9 Hem Onc [address] [place] [address] 12/06/2023 8:30 AM EDT Home Visit [facility] 132 [place] [address] Jenifer Linder, RN 132 [facility] [address] 12/13/2023 3:00 PM EDT Office Visit Nephrology, [place] [address] [place] [place] [address] Reggie Azevedo MD 200 [facility] [place] [address] 12/14/2023 9:15 AM EDT Office Visit Hematology/Oncology [facility] [place] [address] [place] [address] Michael Snyder MD 200 [facility] [place] [address] 01/19/2024 4:45 PM EDT Imaging Radiology [facility] 132 [facility] [place] [address] 03/28/2024 3:20 PM EST Office Visit [facility] Disorders Ctr [facility] 132 [facility] [place] [address] Shanika Fitzgerald, DO 132 [facility] [place] [address] 04/03/2024 10:30 AM EST PulmDiagnostic Pulmonary Function Lab, [address] [place] [address] West, Pft [address] [place] [address] [place] [address] 04/03/2024 11:00 AM EST PulmDiagnostic Pulmonary Function Lab, [facility] 132 [facility] [place] [address] West, Pft [address] [place] [address] [place] [address] 04/03/2024 1:40 PM EST Office Visit Pulmonary Medicine, [facility] 132 [facility] [place]NE [place] [address] Devin Hodge MD [address] [facility] [address] 04/24/2024 6:00 PM EST Office Visit [facility] [address] [facility] [phone] Jairo Kingston MD [address] [facility] [address] Scheduled Procedures Name Priority Associated Diagnoses Date/Ti me COLONOSCOPY FLEXIBLE PROXIMAL DIAGNOSTIC Recall History of colon polyps Health Maintenance Due Date Last Done Comments *COPD SEVERITY VERIFIED BY PFT 08/28/2022 Albumin/Creatinine Ratio 10/08/2022 10/08/2021 COVID-19 Vaccine ( - season) 2022 02/19/2021, 06/19/2020, 05/22/2020 *CXR OR [...] this encounter Medical Devices Implanted Type Area Quality Control Tech Device Identifier Shelf Expiration Date Model / Serial / Lot Graft Hemasheild 20mm [id number] - [id number] Implanted:Qty: 1 on 01/13/2009 at [place] [facility] N/A: Abdomen MICROVASIVE [id number] / / [id number] Clip Resolution 360 Endo 235cm - [id number] Implanted:Qty: 1 on 12/10/2022 by Lacie England MD at OR [facility] : ENDOSCOPY [id number] 07/02/2025 [id number] / / [id number] Clip Resolution 360 Endo 235cm - [id number] Implanted:Qty: 1 on 12/10/2022 by Lacie England MD at OR [facility] : ENDOSCOPY [id number] 07/02/2025 [id number] / / [id number] Stent Biliary Adult L30mm Dia1 - [id number] Implanted:Qty: 1 on 10/26/2023 by Lacie England MD at OR [facility] COOK : JOHANNA COURTNEY [id number] 06/27/2026 [id number] / / [id number] documented as of this encounter Advance Directives Documents on File Type Date Recorded Patient Scrap Kettle Tender Expl anation Power of Special Procedures Technologist 07/30/2022 POWER OF A TTORNEY * Full [...] and were consensually agreed upon. Care Teams Cafe Team Member Relationship Specialty Start Date End Date Jairo Kingston MD [address] [facility] [place] [address] PCP - General 12/21/05 documented as of this encounter
--- OUTSIDE RECORDS SUMMARY | 2024-04-26 11:03 | External Medical Summary | Summary of Care ---
Author Name Unknown Organization [facility] Address [address] [place] [address] Phone [phone] Care Team Providers Care Carpenter Helper Hardwood Flooring Name Role Phone Jairo Kingston MD Primary Care Provider +1- [phone] Reason for Visit * Reason Onset Date Comments Order Request 11/07/2023 Encounter Details Date Type Department Care Team (Late st Contact Info) Description 11/07/2023 Telephone Vascular Surg [facility] [address], [place] [phone] Mikhail Suazo MD [address] [place], [place] [phone] Order Request Allergies Active Allergy Reactions Criticality Noted Date Comments Pavan Inhibitors Other (Please comment) 0 Hyperkalemia documented as of this encounter (statuses as of 11/07/2023) Medications Medication Sig Dispensed Refills Start Date [...] 0.1 % Nasal Solution (Astelin) Administer 1 [place] into nostril in the morning and 1 [place] before bedtime. 30 mL 1 01/11/2023 Active [...] as of this encounter (statuses as of 11/07/2023) Active Problems Problem Noted Date Diagnosed Date [...] as of this encounter (statuses as of 11/07/2023) Resolved Problems Problem Noted Date Diagnosed Date [...] as of this encounter (statuses as of 11/07/2023) Immunizations Name Administration Dates Next Due COVID-19 [...] encounter Miscellaneous Notes * Telephone Encounter - Ayanna Zuniga LPN [...] new order so patient can be scheduled [facility] documented in this encounter Plan of Treatment Upcoming Encounters Date Type Department Care Team (Late st Contact Info) Description 11/08/2023 11:00 AM EDT Office Visit [facility] [address] [place] [facility] [place] [address] Jairo Kingston MD [address] [place] [address] 11/15/2023 10:00 AM EDT [facility], [facility] 132 [facility] [place] [address] Jenifer Linder RN 132 [facility] [place] [address] 11/18/2023 2:00 PM EDT Hem/Onc Treatment Hematology/Oncology Treatment, [place] 200 [facility] [place] [phone] Hannah, Chair 8 Hem Onc Scenery [address] [place] [address] 12/02/2023 2:00 PM EDT Hem/Onc Treatment Hematology/Oncology Treatment, [place] 200 [facility], [place] [phone] Hannah, Chair 9 [facility] [place] [address] 12/13/2023 3:00 PM EDT Office Visit Nephrology, [facility] [address] [place], [place] [address] Reggie Azevedo MD [address] [place], [place] [address] 12/14/2023 9:15 AM EDT Office Visit Hematology/Oncology Yuliet Young [place] [address] [place] [phone] Michael Synder MD [address] [place] [address] 01/19/2024 4:45 PM EDT Imaging Radiology [facility] 1st [facility], [address] [place] [address] 03/28/2024 3:20 PM EST Office Visit Sleep Disorders Ctr [address] [place] [phone] Shanika Fitzgerald, DO 132 [facility] [place] [address] 04/03/2024 10:30 AM EST PulmDiagnostic Pulmonary Function Lab, [address] [place] [address] West, Pft 132 [facility] [place] [address] 04/03/2024 11:00 AM EST PulmDiagnostic Pulmonary Function Lab, [address] [place] [address] West, Pft 132 [facility] [place] [address] 04/03/2024 1:40 PM EST Office Visit Pulmonary Medicine, [address] [place] [address] Devin Hodge MD [address] [place] [address] 04/24/2024 6:00 PM EST [facility] [address] [facility] [phone] Jairo Kingston MD [address] [place], [place] [phone] Scheduled Procedures Name Priority Associated Diagnoses Date/Ti me COLONOSCOPY FLEXIBLE PROXIMAL DIAGNOSTIC Recall History of colon polyps Health Maintenance Due Date Last Done Comments *COPD SEVERITY VERIFIED BY PFT 08/28/2022 Albumin/Creatinine Ratio 10/08/2022 10/08/2021 COVID-19 Vaccine (4 - season) 2022 02/19/2021, 06/19/2020, 05/22/2020 *CXR [...] encounter Medical Devices Implanted Type Area Manager Chinese Device Identifier Shelf Expiration Date Model / Serial / Lot Graft Hemasheild 20mm [id number] - [id number] Implanted:Qty: 1 on 01/13/2009 at [place] [facility] [place]/A: Abdomen MICROVASIVE [id number] / / [id number] Clip Resolution 360 Endo 235cm - [id number] Implanted:Qty: 1 on 12/10/2022 by Lacie England MD at OR [facility] [employer] : ENDOSCOPY [id number] 07/02/2025 [id number] / / [id number] Clip Resolution 360 Endo 235cm - [id number] Implanted:Qty: 1 on 12/10/2022 by Lacie England MD at OR [facility] [employer] : ENDOSCOPY [id number] 07/02/2025 [id number] / / [id number] Stent Biliary Adult L30mm Dia1 - [id number] Implanted:Qty: 1 on 10/26/2023 by Lacie England MD at OR [facility] COOK : JOHANNA COURTNEY [id number] 06/27/2026 [id number] / / [id number] documented as of this encounter Advance Directives Documents on File Type Date Recorded Patient Pole Classifier Expl anation Power of Minister Helper 07/30/2022 POWER OF A TTORNEY * [...] and were consensually agreed upon. Care Teams Carpenter Helper Hardwood Flooring Relationship Specialty Start Date End Date Jairo Kingston MD [address] [facility] [place] [address] PCP - General 12/21/05 documented as of this encounter
--- OUTSIDE RECORDS SUMMARY | 2024-04-26 11:03 | External Medical Summary ---
Author Name Unknown Address Unknown Organization K09:[facility] [place] [address] Laboratory Report Ordering Provider Test Date Status LOLLY ALEGRIA 11/04/2023 14:04:35 Final Observation Date Value Abnormality Reference (Units ) Status SYNC LEUKOCYTES IN BLOOD BY AUTOMATED COUNT 11/04/2023 14:04:35 9.43 4.00-10.80 (K/uL) Final Segs 11/04/2023 14:04:35 66.5 40.0-75.0 (%) Final Lymphs % 11/04/2023 14:04:35 14.3 Below low normal 18.0-42.0 (%) Final Monos 11/04/2023 14:04:35 12.1 Above high normal 1.0-11.0 (%) Final Eosinophils 11/04/2023 14:04:35 6.5 Above high normal 0.0-6.0 (%) Final Basos 11/04/2023 14:04:35 0.6 0.0-2.0 (%) Final Absolute Segs 11/04/2023 14:04:35 6.27 1.80-7.70 (K/uL) Final Lymphs, absolute 11/04/2023 14:04:35 1.35 1.00-4.80 (K/ul) Final Monos, Abs 11/04/2023 14:04:35 1.14 Above high normal 0.00-1.10 (K/uL) Final Eos, Abs 11/04/2023 14:04:35 0.61 0.00-0.70 (K/uL) Final Basos, Abs 11/04/2023 14:04:35 0.06 0.00-0.20 (K/uL) Final Performing Location [facility] [address] [place] [address]
--- OUTSIDE RECORDS SUMMARY | 2024-04-26 11:03 | External Medical Summary | Summary of Care ---
Author Name Unknown Organization [facility] Address [address] [place] [address] Phone [phone] Care Team Providers Care Senior Energy Market Coordinator Name Role Phone Jairo Kingston MD Primary Care Provider +1- [phone] Reason for Visit * Reason Onset Date Comments Pre Op Discussion 10/19/2023 Encounter Details Date Type Department Care Team (Late st Contact Info) Description 10/19/2023 Telephone ENDO GE, Endoscopy [address] [address] Lacie England MD [address] [place] [address] Pre Op Discussion Allergies Active Allergy Reactions Criticality Noted Date [...] 0.1 % Nasal Solution (Astelin) Administer 1 [place] into nostril in the morning and 1 [place] before bedtime. 30 mL 1 3 Active Furosemide 20 MG Oral Tablet (Lasix) TAKE 1 TABLET BY MOUTH twice DAILY 90 Tablet 3 3 Active Ezetimibe 10 MG Oral Tablet (Zetia)Indications: Dyslipidemia, goal LDL below 70 TAKE ONE TABLET BY MOUTH EVERY MORNING 90 Tablet 3 3 024 Active Docusate Sodium 100 MG Oral Capsule [...] 4 Active Allopurinol 300 MG Oral Tablet (Zyloprim)Indicatio ns:Gout TAKE ONE-HALF TABLET BY MOUTH EVERY DAY 45 Tablet 2 4 025 Active Apixaban 2.5 MG Oral Tablet (Eliquis)Indication s:Recurrent cerebrovascular accidents (CVAs) (HCC) Take 1 Tablet by mouth in the morning and 1 Tablet before bedtime. 180 Tablet 1 4 Active Ipratropium-Albuter ol 0.5-2.5 (3) MG/3ML Inhalation Solution (Duoneb) Inhale 3 mL by mouth every 6 hours as needed (sob). 360 mL 5 4 Active Fluticasone Propionate 50 MCG/ACT Nasal Suspension (Flonase) INSTILL 2 SPRAYS INTO EACH NOSTRIL EVERY DAY 48 g 3 4 025 Active Trelegy Ellipta 100-62.5-25 MCG/ACT Aerosol Powder [...] directed to take for COPD exacerbation. Active Atorvastatin Calcium 80 MG Oral Tablet (Lipitor) TAKE ONE TABLET BY MOUTH EVERY DAY 90 Tablet 3 3 024 Discontinued Probiotic & Acidophilus Ex St Oral Capsule Take 1 Capsule by mouth in the morning and 1 Capsule at noon and 1 Capsule in the evening. Take with meals. 024 Discontinued predniSONE 20 MG Oral Tablet (Deltasone) Take 2 Tablets by mouth in the morning for 5 days. Rescue Kit. Use as instructed. 10 Tablet 4 024 Discontinued Doxycycline Hyclate 100 MG Oral Capsule Take 1 Capsule by mouth in the morning and 1 Capsule before bedtime. Do all this for 7 days. Rescue kit. Use as instructed. 14 Capsule 4 Discontinued Hospital, Clinic, or Other Facility Administered Medication Ordered Dose Route Frequency Start Date End Date Status Albuterol Sulfate (Proventil) (2.5 MG/3ML) 0.083% inhalation solution 2.5 mgIndications:COPD, group D, by GOLD 2017 classification ([facility]) 2.5 mg NEBULIZER PRN 10/03/2023 5 Active Albuterol Sulfate (Proventil) (5 MG/ML) 0.5% *conc* inhalation solution 2.5 mgIndications:COPD, group D, by GOLD 2017 classification ([facility]) 2.5 mg NEBULIZER PRN 10/03/2023 Discontinued documented as of this encounter (statuses as [...] 11/11/2022 Last Assessment & Plan: Allopurinol manager intermediate No new attacks GINNY on CPAP [...] Telephone Encounter - Jairo Kingston MD - 10/19/2023 1:07 PM EDT Yes - would hold eliquis 3 days prior to procedure and resume the day after assuming that there is no evidence for bleeding complications. * Telephone Encounter - Ava Figueroa RN - 10/19/2023 9:15 AM EDT Mikhail is scheduled for an EGD 10/26/23. May he hold his Eliquis 2-3 days prior to his procedure. Your input is appreciated. Thank you for your assistance. documented in this encounter Plan of Treatment Upcoming Encounters Date Type Department Care Team (Late st Contact Info) Description 11/08/2023 11:00 AM EDT Office Visit [address] [phone] Jairo Kingston MD [address] [place] [address] 11/15/2023 10:00 AM EDT [facility], [facility] 132 [facility] [place] [address] Jenifer Linder RN 132 [facility] [address] 11/18/2023 2:00 PM EDT Hem/Onc Treatment Hematology/Oncology Treatment, [place] 200 [facility], [place] [phone] Hannah, Chair 8 Hem Onc Scenery 200 [facility] [place] [address] 12/02/2023 2:00 PM EDT Hem/Onc Treatment Hematology/Oncology Treatment, [place] 200 [facility], [place] [phone] Hannah, Chair 9 Hem Onc Scene 200 [facility] [place], [place] [address] 12/13/2023 3:00 PM EDT Office Visit Nephrology, [facility] 200 [facility] [place], [place] [address] Reggie Azevedo MD [address] [place], [place] [address] 12/14/2023 9:15 AM EDT Office Visit Hematology/Oncology [facility] Hannah [place] [address] [place], [place] [phone] Michael Snyder MD [address] [place], [place] [address] 01/19/2024 4:45 PM EDT Imaging Radiology [facility] 1st [facility], [place] 132 [facility] [place] [address] 03/28/2024 3:20 PM EST Office Visit Sleep Disorders Ctr [facility] 132 [facility] [place] [phone] Shanika Fitzgerald, 132 [facility] [place] [address] 04/03/2024 10:30 AM EST PulmDiagnostic Pulmonary Function Lab, [facility] 132 [facility] [place] [address] West, Pft 132 [facility] [place] [address] 04/03/2024 11:00 AM EST PulmDiagnostic Pulmonary Function Lab, [facility] 132 [facility] [place] [address] West, Pft 132 [facility] [place] [address] 04/03/2024 1:40 PM EST Office Visit Pulmonary Medicine, [facility] 132 [facility] [place] [address] Devin Hodge MD [address] [place] [address] 04/24/2024 6:00 PM EST Office Visit [facility] [address] [place] [phone] Jairo Kingston MD [address] [place], [place] [phone] Scheduled Procedures Name Priority Associated Diagnoses Date/Ti [...] this encounter Medical Devices Implanted Type Area Bundle Packer Device Identifier Shelf Expiration Date Model / Serial / Lot Graft Hemasheild 20mm [id number] - [id number] Implanted:Q[place] 1 [place] 01[place]13/2009 [place] [facility] [place] Abdomen MICROVASIVE [id number] / / [id number] Clip Resolution 360 Endo 235cm - [id number] Implanted:Qty: 1 on 12/10/2022 by Lacie England MD at OR [facility] [employer] : ENDOSCOPY [id number] 07/02/2025 [id number] / / [id number] Clip Resolution 360 Endo 235cm - [id number] Implanted:Qty: 1 on 12/10/2022 by Lacie England MD at OR [facility] [employer] : ENDOSCOPY [id number] 07/02/2025 [id number] / / [id number] Stent Biliary Adult L30mm Dia1 - [id number] Implanted:Qty: 1 on 10/26/2023 by Lacie England MD at OR [facility] COOK : JOHANNA COURTNEY [id number] 06/27/2026 [id number] / / [id number] Explanted Type Area Bundle Packer Device Identifier Shelf Expiration Date Model / Serial / Lot Stent Axios [id number] - [id number] Implanted:Qty: 1 on 12/10/2022 by Lacie England MD at OR [facility] Explanted:Qty: 1 on 10/26/2023 at OR [facility] [employer] : ENDOSCOPY [id number] 04/06/2023 [id number] / / [id number] documented as of this encounter Advance Directives Documents on File Type Date Recorded Patient Structural Steel Ironworker Expl anation Power of Filer Metal Patterns 07/30/2022 POWER OF A TTORNEY * Full [...] were consensually agreed upon. Care Teams Senior Energy Market Coordinator Relationship Specialty Start Date End Date Jairo Kingston MD [address] [place] [address] PCP - General 12/21/05 documented as of this encounter
--- OUTSIDE RECORDS SUMMARY | 2024-04-26 11:03 | External Medical Summary ---
Author Name Unknown Address Unknown Organization K01:[facility] [place] [address] [place] [address] Laboratory Report Ordering Provider Test Date Status LOLLY ALEGRIA 11/04/2023 14:04:35 Final Observation Date Value Abnormality Reference (Units ) Status Ferritin 11/04/2023 14:04:35 190 30-400 (ng /mL) Final Performing Location [facility] - [address] [place] [address]
--- OUTSIDE RECORDS SUMMARY | 2024-04-26 11:03 | External Medical Summary ---
Author Name Unknown Address Unknown Organization K01:[facility] [place] - [address] [place] [address] Laboratory Report Ordering Provider Test Date Status LOLLY ALEGRIA 11/04/2023 14:04:35 Final Observation Date Value Abnormality Reference (Units ) Status Iron 11/04/2023 14:04:35 29 Below low normal 45-176 (ug/dL) Final Iron-binding capacity 11/04/2023 14:04:35 283 250-425 (ug/dL) Final Transferrin Sat % 11/04/2023 14:04:35 10 Below low normal 15-55 (%) Final Performing Location [facility] - [address] [place] [address]
--- OUTSIDE RECORDS SUMMARY | 2024-04-26 11:03 | External Medical Summary | Summary of Care ---
Author Name Unknown Organization [facility] Address [address] [place] [address] Phone [phone] Care Team Providers Care Central Aisle Cashier Name Role Phone Jairo Kingston MD Primary Care Provider +1- [phone] Reason for Visit * Reason Onset Date Comments [facility]: Maintenance 11/03/2023 Encounter Details Date Type Department Care Team (Late st Contact Info) Description 11/03/2023 9:30 AM EDT Scheduled Telephone [facility], [facility] [address] [place] [address] Coordinator, [facility] [address] [place] [address] Allergies Active Allergy Reactions Criticality Noted Date Comments Pavan Inhibitors Other (Please comment) 0 Hyperkalemia documented as of this encounter (statuses as of 11/03/2023) Medications Medication Sig Dispensed Refills Start Date [...] 0.1 % Nasal Solution (Astelin) Administer 1 [place] into nostril in the morning and 1 [place] before bedtime. 30 mL 1 01/11/2023 Active [...] as of this encounter (statuses as of 11/03/2023) Active Problems Problem Noted Date Diagnosed Date [...] 0 11/11/2022 Last Assessment & Plan: Allopurinol retirement No new attacks GINNY on CPAP 11/11/2022 [...] as of this encounter (statuses as of 11/03/2023) Resolved Problems Problem Noted Date Diagnosed Date [...] as of this encounter (statuses as of 11/03/2023) Immunizations Name Administration Dates Next Due COVID-19 [...] encounter Miscellaneous Notes * Telephone Encounter - Fatemeh Harding RN - 11/03/2023 12:06 PM EDT [facility] Telephonic Nurse Follow-Up Call [facility] Subprogram: Short-Term Management (less than 3 months) Follow Up Call Type: 24 hour follow up Acute issue requiring follow-up call: Other: check to see if pt had bm, if no-may need home visit for enema? Objective: 10/28/2023 4:19 PM 10/27/2023 8:28 AM 10/27/2023 8:04 AM 10/27/2023 7:28 AM 10/27/2023 3:41 AM VITALS ACROSS ENCOUNTERS BP 138/78 109/90 124/63 Pulse 74 67 66 67 Weight 78 kg BMI 27.76 kg/m2 Remote Patient Monitoring: NONE Oxygen Needs: NO CHANGE from baseline supplemental oxygen needs DME Needs: NO DME needs identified Medications: No medication or dose adjustments made during acute episode Subjective: Condition Status: Symptoms resolved and back to baseline Current Concerns: Spoke with daughter, Mitzi who reports that patient reports that his bowels were moving and he is feeling much better today. Has had 3 Bms so far today. Denies abdominal pain, n/v, no back pain. Feels "great today". Reinforced provider recommendations for constipation: At least 64 oz clear fluids/day Continue miralax bid mixed per package instructions Add senna 8.6 mg bid High fiber foods such as prunes, fruits, vegetables Reinforced to call back if pt starts having issues with bowels again, no bm >3 days, n/v, abdominal pain. Daughter verbalizes understanding and able to repeat back instruction correctly. Disposition: Issue resolved. All appropriate follow up scheduled. Future Visits Scheduled: Future Appointments-next 60 days Date/Time Provider Specialty Dept Phone 11/04/2023 11:45 AM CoordinatorHarinder [facility] [phone] 11/04/2023 2:00 PM Hannah, Chair 10 Hem Onc Scenery Hematology Oncology [phone] 11/08/2023 11:00 AM (Arrive by 10:45 AM) Jairo Kingston MD Family Medicine [phone] 11/15/2023 10:00 AM Jenifer Linder RN [facility] [phone] 11/18/2023 2:00 PM Hannah, Chair 8 Hem Onc Scenery Hematology Oncology [phone] 12/13/2023 3:00 PM (Arrive by 2:45 PM) Reggie Azevedo MD Nephrology [phone] 12/14/2023 9:15 AM (Arrive by 9:00 AM) Michael Snyder MD Hematology Oncology [phone] 01/19/2024 4:45 PM [address]1 [facility] Radiology [phone] 03/28/2024 3:20 PM (Arrive by 3:05 PM) Shanika Fitzgerald DO Sleep Disorders [phone] 04/03/2024 10:30 AM Shay Pft Pulmonary Function [phone] 04/03/2024 11:00 AM Shay Pft Pulmonary Function [phone] 04/03/2024 1:40 PM (Arrive by 1:25 PM) Devin Hodge MD Pulmonary [phone] 04/24/2024 6:00 PM (Arrive by 5:45 PM) Jairo Kingston MD Family Medicine [phone] Fatemeh Harding, RN documented in this encounter Plan of Treatment Upcoming Encounters Date Type Department Care Team (Late st Contact Info) Description 11/04/2023 2:00 PM EDT Hem/Onc Treatment Hematology/Oncology [address] [place] [phone] Hannah, Chair 10 Hem [address]c [address] [address] 11/08/2023 11:00 AM EDT Office Visit [facility] [address] [place] [phone] Jairo Kingston MD [address] [place] [address] 11/15/2023 10:00 AM EDT Home Visit [facility] 132 [facility] [place] [address] Jenifer Linder, RN 132 [place] [address] 11/18/2023 2:00 PM EDT Hem/Onc Treatment Hematology/Oncology Treatment[address], [place] [phone] Hannah, Chair 8 Hem Onc [address] [place] [address] 12/13/2023 3:00 PM EDT Office Visit Nephrology, [place] [address] [address] [place] [address] Reggie Azevedo MD [address] [place] [address] [place] [address] 12/14/2023 9:15 AM EDT Office Visit Hematology/Oncology [facility], [address] [place] [address] Michael Snyder MD [address] [place] [address] 01/19/2024 4:45 PM EDT Imaging Radiology [facility]st [facility] 132 [facility] [place], [place] [address] 03/28/2024 3:20 PM EST Office Visit Sleep Disorders Ctr [facility] 132 [facility] [place] [phone] Shanika Fitzgerald, 132 [facility] [place], [place] [address] 04/03/2024 10:30 AM EST PulmDiagnostic Pulmonary Function Lab, [facility] 132 [facility] [place] [address] West, Pft [address] [place], [place] [address], [place] [address] 04/03/2024 11:00 AM EST PulmDiagnostic Pulmonary Function Lab, [facility] 132 [facility] [place] [address] West, Pft [address] [place], [place] [address] [place] [address] 04/03/2024 1:40 PM EST Office Visit Pulmonary Medicine, [facility] 132 [facility] [place] [address] Devin Hodge MD [address] [place] [address] 04/24/2024 6:00 PM EST Office Visit Family [facility] [place] [address] [facility], [place] [address] Jairo Kingston MD [address] [place] [address] Scheduled Procedures Name Priority Associated Diagnoses Date/Ti [...] 10/22/2023, 11/0 10/2022, 12/09/2022, Additional history exists Hgb 10/25/2024 10/26/2023, 07/0 12/2023, 10/24/2023, Additional history exists O2 ASSESSMENT COMPLETED IN PAST YEAR FOR COPD 10/25/2024 10/26/2023 Colonoscopy 01/02/2026 01/02/2021, 07/17, 08/02/2017, Additional history [...] this encounter Medical Devices Implanted Type Area Market Master Device Identifier Shelf Expiration Date Model / Serial / Lot Graft Hemasheild 20mm [id number] - [id number] Implanted:Qty: 1 [place] 01/13/2009 [place] [facility] [place] Abdomen MICROVASIVE [id number] / / [id number] Clip Resolution 360 Endo 235cm - [id number] Implanted:Qty: 1 on 12/10/2022 by Lacie England MD at OR [facility] [employer] : ENDOSCOPY [id number] 07/02/2025 [id number] / / [id number] Clip Resolution 360 Endo 235cm - [id number] Implanted:Qty: 1 on 12/10/2022 by Lacie England MD at OR [facility] [employer] : ENDOSCOPY [id number] 07/02/2025 [id number] / / [id number] Stent Biliary Adult L30mm Dia1 - [id number] Implanted:Qty: 1 on 10/26/2023 by Lacie England MD at OR [facility] COOK : JOHANNA COURTNEY [id number] 06/27/2026 [id number] / / [id number] documented as of this encounter Advance Directives Documents on File Type Date Recorded Patient Maker Up Folding Expl anation Power of Banking Pin Adjuster 07/30/2022 POWER OF A TTORNEY * Full [...] and were consensually agreed upon. Care Teams Central Aisle Cashier Relationship Specialty Start Date End Date Jairo Kingston MD [address] [place] [facility] [place] [address] PCP - General 12/21/05 documented as of this encounter
--- OUTSIDE RECORDS SUMMARY | 2024-04-26 11:03 | External Medical Summary | Summary of Care ---
Author Name Unknown Organization [facility] Address [address] [place] [address] Phone [phone] Care Team Providers Care Software Packager Name Role Phone Jairo Kingston MD Primary Care Provider +1- [phone] Reason for Visit * Reason Onset Date Comments Order Request 11/07/2023 Encounter Details Date Type Department Care Team (Late st Contact Info) Description 11/07/2023 Telephone Vascular Surg [facility] [address], [place] [phone] Mikhail Suazo MD [address] [place], [place] [phone] Order Request Allergies Active Allergy Reactions Criticality Noted Date Comments Pavan Inhibitors Other (Please comment) 0 Hyperkalemia documented as of this encounter (statuses as of 11/08/2023) Medications Medication Sig Dispensed Refills Start Date [...] 0.1 % Nasal Solution (Astelin) Administer 1 [place] into nostril in the morning and 1 [place] before bedtime. 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 Suazo at [facility]. Left message for patient to return [...] new order so patient can be scheduled [facility] documented in this encounter Plan of Treatment Upcoming Encounters Date Type Department Care Team (Late st Contact Info) Description 11/15/2023 10:00 AM EDT Home Visit [facility], [facility] 132 [facility] [place] [address] Jenifer Linder RN [address] [place] [address] 11/18/2023 2:00 PM EDT Hem/Onc Treatment Hematology/Oncology Treatment, [place] 200 [facility] [place] [phone] Hannah, Chair 8 Hem Onc [address] [place] [address] 12/02/2023 2:00 PM EDT Hem/Onc Treatment Hematology/Oncology Treatment, [place] 200 [facility] [phone] Hannah, Chair 9 Hem Onc [address] [place] [address] 12/13/2023 3:00 PM EDT Office Visit Nephrology, [address] [place] [address] Reggie Azevedo MD 200 [facility] [place] [address] 12/14/2023 9:15 AM EDT Office Visit Hematology/Oncology [facility] [address] [place] [address] [phone] Michael Snyder MD 200 [facility] [place] [address] 01/19/2024 4:45 PM EDT Imaging Radiology [facility] 132 [facility] [place] [address] 03/28/2024 3:20 PM EST Office Visit Sleep Disorders Ctr [facility] 132 [facility] [place] [address] Shanika Fitzgerald, DO [address] [facility] [place] [address] 04/03/2024 10:30 AM EST PulmDiagnostic Pulmonary Function Lab, [address] [place] [address] West, Pft [address] [place] [address] [place] [address] 04/03/2024 11:00 AM EST PulmDiagnostic Pulmonary Function Lab, [facility] 132 [facility] [place] [address] West, Pft [address] [place] [address] [place] [address] 04/03/2024 1:40 PM EST Office Visit Pulmonary Medicine, [facility] 132 [facility] JAYNE [place] [address] Devin Hodge MD [address] [facility] [address] 04/24/2024 6:00 PM EST Office Visit [facility] [address] [facility] [phone] Jairo Kingston MD [address] [facility] [address] Scheduled Procedures Name Priority Associated Diagnoses Date/Ti [...] this encounter Medical Devices Implanted Type Area Pmo Consultant Device Identifier Shelf Expiration Date Model / Serial / Lot Graft Hemasheild 20mm [id number] - [id number] Implanted:Qty: 1 on 01/13/2009 at OR [facility] N/A: Abdomen MICROVASIVE [id number] / / [id number] Clip Resolution 360 Endo 235cm - [id number] Implanted:Qty: 1 on 12/10/2022 by Lacie England MD at OR [facility] [employer] : ENDOSCOPY [id number] 07/02/2025 [id number] / / [id number] Clip Resolution 360 Endo 235cm - [id number] Implanted:Qty: 1 on 12/10/2022 by Lacie England MD at OR [facility] [employer] : ENDOSCOPY [id number] 07/02/2025 [id number] / / [id number] Stent Biliary Adult L30mm Dia1 - [id number] Implanted:Qty: 1 on 10/26/2023 by Lacie England MD at OR [facility] COOK : JOHANNA COURTNEY [id number] 06/27/2026 [id number] / / [id number] documented as of this encounter Advance Directives Documents on File Type Date Recorded Patient Director Weights And Measures Expl anation Power of Civil Cad Tech 07/30/2022 POWER OF A TTORNEY * Full [...] and were consensually agreed upon. Care Teams Software Packager Relationship Specialty Start Date End Date Jairo Kingston MD [address] [facility] [place] [address] PCP - General 12/21/05 documented as of this encounter
--- OUTSIDE RECORDS SUMMARY | 2024-04-26 11:03 | External Medical Summary | Summary of Care ---
Author Name Unknown Organization [facility] Address [address] [place] [address] Phone [phone] Care Team Providers Care Remediation Consultant Name Role Phone Jairo Kingston MD Primary Care Provider +1- [phone] Reason for Visit * Reason Comments Infusion Venofer Encounter Details Date Type Department Care Team (Latest Contact Info) Description 11/04/2023 2:00 PM EDT Hem/Onc Treatment Hematology/Oncology Treatment, [address] [address] Park, Chair 10 Hem On[address] [address] Iron deficiency anemia due to chronic blood loss* Allergies Active Allergy Reactions Criticality Noted Date Comments Pavan Inhibitors Other (Please comment) 0 Hyperkalemia documented as of this encounter (statuses as of 11/04/2023) Medications Medication Sig Dispensed Refills Start Date [...] 0.1 % Nasal Solution (Astelin) Administer 1 [place] into nostril in the morning and 1 [place] before bedtime. 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 [address] [place] [facility] [place] [phone] Jairo Kingston MD [address] [place] [address] 11/15/2023 10:00 AM EDT Home Visit [facility] at [facility] 132 [facility] [place] [address] Jenifer Linder RN [facility] [place] [address] 11/18/2023 2:00 PM EDT Hem/Onc Treatment Hematology/Oncology Treatment, [place] 200 [facility] [phone] Hannah, Chair 8 Hem Onc [place] [address] [place] [address] 12/02/2023 2:00 PM EDT Hem/Onc Treatment Hematology/Oncology Treatment, [place] 200 [facility] [place] [phone] Hannah, Chair 9 Hem Onc [address] [place] [address] 12/13/2023 3:00 PM EDT Office Visit Nephrology, [facility] [address] [place] [address] Reggie Azevedo MD 200 [facility] [place] [address] 12/14/2023 9:15 AM EDT Office Visit Hematology/Oncology [facility] [place] [address] [place] [address] [phone] Michael Snyder MD [address] [place] [address] 01/19/2024 4:45 PM EDT Imaging Radiology [facility]st [facility] [address] [facility] [place] [address] 03/28/2024 3:20 PM EST Office Visit Sleep Disorders Ctr [address] [place] [phone] Shanika Fitzgerald, DO 132 [facility] [place], [place] [address] 04/03/2024 10:30 AM EST PulmDiagnostic Pulmonary Function Lab, [address] [place] [address] West, Pft [address] [place] [address] [place] [address] 04/03/2024 11:00 AM EST PulmDiagnostic Pulmonary Function Lab, [address] [place] [address] West, Pft [address] [place], [place] [address] [address] 04/03/2024 1:40 PM EST Office Visit Pulmonary Medicine, [address] [place] [address] Devin Hodge MD [address] [place] [address] 04/24/2024 6:00 PM EST Office Visit [facility] [address] [facility] [phone] Jairo Kingston MD [address] [facility] [address] Pending Results Name Type Priority Associated Diagnoses Date /Time FERRITIN Lab STAT Iron deficiency anemia due to chronic blood loss 11/04/2023 2:04 PM EDT IRON SCREEN, INCLUDING TIBC Lab STAT Iron deficiency anemia due to chronic blood loss 11/04/2023 2:04 PM EDT Scheduled Procedures Name Priority Associated [...] this encounter Medical Devices Implanted Type Area Face Burler Device Identifier Shelf Expiration Date Model / Serial / Lot Graft Hemasheild 20mm [id number] - [id number] Implanted:Qty: 1 on 01/13/2009 at OR [facility] N/A: Abdomen MICROVASIVE [id number] / / [id number] Clip Resolution 360 Endo 235cm - [id number] Implanted:Qty: 1 on 12/10/2022 by Lacie England MD at OR [facility] [employer] : ENDOSCOPY [id number] 07/02/2025 [id number] / / [id number] Clip Resolution 360 Endo 235cm - [id number] Implanted:Qty: 1 on 12/10/2022 by Lacie England MD at OR [facility] [employer] [employer] : ENDOSCOPY [id number] 07/02/2025 [id number] / / [id number] Stent Biliary Adult L30mm Dia1 - [id number] Implanted:Qty: 1 on 10/26/2023 by Lacie England MD at OR [facility] COOK : JOHANNA COURTNEY [id number] 06/27/2026 [id number] / / [id number] documented as of this encounter Procedures Procedure [...] DIFFERENTIAL, TECHNOLOGIST REVIEW (11/04/2023 2:04 PM EDT) Pathologist [facility] nRBCs 11/04/2023 2:46 PM EDT [facility] 56-02 Blood Venous blood specimen / Unknown Venipuncture / Unknown 11/04/2023 2:04 PM EDT 11/04/2023 2:40 PM EDT [facility] BLOOD ORDER [facility] [address] [place] [address] * (ABNORMAL) DIFFERENTIAL, AUTOMATED (11/04/2023 2:04 PM EDT) [facility] WBC 9.43 4.00 - 10.80 K/uL 11/04/2023 2:46 PM EDT [facility] 56-02 Neutrophils % 66.5 40.0 - 75.0 % 11/04/2023 2:46 PM EDT [facility] 56-02 Lymphocytes % 14.3(L) 18.0 - 42.0 % 11/04/2023 2:46 PM EDT [facility] 56-02 Monocytes % 12.1(H) 1.0 - 11.0 % 11/04/2023 2:46 PM EDT [facility] 56-02 Eosinophils % 6.5(H) 0.0 - 6.0 % 11/04/2023 2:46 PM EDT [facility] 56-02 Basophils % 0.6 0.0 - 2.0 % 11/04/2023 2:46 PM EDT [facility] 56-02 Absolute Neutrophils 6.27 1.80 - 7.70 K/uL 11/04/2023 2:46 PM EDT [facility] 56-02 Absolute Lymphocytes 1.35 1.00 - 4.80 K/ul 11/04/2023 2:46 PM EDT [facility] 56-02 Absolute Monocytes 1.14(H) 0.00 - 1.10 K/uL 11/04/2023 2:46 PM EDT [facility] 56 Absolute Eosinophils 0.61 0.00 - 0.70 K/uL 11/04/2023 2:46 PM EDT [facility] 56 Absolute Basophils 0.06 0.00 - 0.20 K/uL 11/04/2023 2:46 PM EDT [facility] 56 Blood Venous blood specimen / Unknown Venipuncture / Unknown 11/04/2023 2:04 PM EDT 11/04/2023 2:40 PM EDT [facility] BLOOD ORDER [facility] [address] [place] [address] * (ABNORMAL) CBC (11/04/2023 2:04 PM EDT) WBC 9.43 4.00 - 10.80 K/uL 11/04/2023 2:46 PM EDT [facility] RBC 2.97 4.50 - 5.25 M/uL 11/04/2023 2:46 PM EDT [facility] 56 HGB 9.6(L) 14.0 - 16.8 g/dL 11/04/2023 2:46 PM EDT [facility] HCT 31.6(L) 40.0 - 48.4 % 11/04/2023 2:46 PM EDT [facility] MCV 106.4 82.0 - 99.5 fL 11/04/2023 2:46 PM EDT [facility] 56 MCH 32.3 27.0 - 34.0 pg 11/04/2023 2:46 PM EDT [facility] 56 MCHC 30.4 32.0 - 36.0 g/dL 11/04/2023 2:46 PM EDT [facility] 56 RDW 15.3 11.5 - 15.5 % 11/04/2023 2:46 PM EDT [facility] 56 PLT 308 140 - 400 K/uL 11/04/2023 2:46 PM EDT [facility] 56 MPV 10.5 6.6 - 11.1 fL 11/04/2023 2:46 PM EDT [facility] 56- Blood Venous blood specimen / Unknown Venipuncture / Unknown 11/04/2023 2:04 PM EDT 11/04/2023 2:40 PM EDT [facility] BLOOD ORDER [facility] 56 [address] [place] [address] documented in this encounter Visit Diagnoses Diagnosis [...] ONCE PRN Other, Hypersensitivity Reaction, Starting on Tue11/04/23 at 1405, Until 11/05/23 at 1404, For 24 hours EPINEPHrine 1 MG/ML inj 0.3 mg 0.3 mg, Intramuscular, ONCE PRN Other, Hypersensitivity Reaction or Anaphylaxis, Starting on Tue11/04/23 at 1405, Until 11/05/23 at 1404, For 24 hours hEParin 100 UNIT/ML Lock Flush inj 500 Units 500 Units (5 mL), IV Lock, PRN Other, IV Flush, Starting on Tue11/04/23 at 1405, Until 11/05/23 at 1404, For 24 hours, Do not flush if lock, PICC, or central line not in place; IV infusing or unable to flush. Hydrocortisone Sod Suc (PF) (Solu-Cortef) inj 100 mg 100 mg, IV Push, ONCE PRN Other, Hypersensitivity Reaction, Starting on Tue11/04/23 at 1405, Until 11/05/23 at 1404, For 24 hours NSS infusion 500 mL, Intravenous, at 50 mL/hr, CONTINUOUS, Starting on Tue11/04/23 at 1515, Until 11/05/23 at 0114 Start Infusion 11/04/2023 2:30 PM EDT 500 mL 50 mL/hr oxygen GAS Inhalation, OXYGEN, First dose on Tue11/04/23 at 1600, Until Discontinued, Device/Managed by: Low [...] Push, PRN Other, IV Flush, Starting on Tue11/04/23 at 1405, Until 11/05/23 at 1404, For 24 hours, Do not flush if [...] 2:31 PM EDT 300 mg 180 mL/hr documented in this encounter Advance Directives Documents on File Type Date Recorded Patient Design/Animation Instructor Expl anation Power of Transport Pilot 07/30/2022 POWER OF A TTORNEY * Full [...] and were consensually agreed upon. Care Teams Remediation Consultant Relationship Specialty Start Date End Date Jairo Kingston MD [address] [facility] [place] [address] PCP - General 12/21/05 documented as of this encounter
--- OUTSIDE RECORDS SUMMARY | 2024-04-26 11:03 | External Medical Summary ---
Author Name Unknown Address Unknown Organization K09[facility] [place] [address] Laboratory Report Ordering Provider Test Date Status LOLLY ALEGRIA 11/04/2023 14:04:35 Final Observation Date Value Abnormality Reference (Units ) Status WBC, Total 11/04/2023 14:04:35 9.43 4.00-10.8 0 (K/uL) Final RBC 11/04/2023 14:04:35 2.97 4.50-5.25 (M/uL) Final Hemoglobin 11/04/2023 14:04:35 9.6 Below low normal 14 .0-16.8 (g/dL) Final HCT 11/04/2023 14:04:35 31.6 Below low normal 40. 0-48.4 (%) Final MCV 11/04/2023 14:04:35 106.4 82.0-99.5 (fL) Final MCH 11/04/2023 14:04:35 32.3 27.0-34.0 (pg) Final MCHC 11/04/2023 14:04:35 30.4 32.0-36.0 (g/dL) Final RDW 11/04/2023 14:04:35 15.3 11.5-15.5 (%) Final Platelets 11/04/2023 14:04:35 308 140-400 (K /uL) Final MPV 11/04/2023 14:04:35 10.5 6.6-11.1 ( fL) Final Performing Location [facility] [place] [address]
--- OUTSIDE RECORDS SUMMARY | 2024-04-26 11:03 | External Medical Summary ---
Author Name Unknown Address Unknown Organization K09:[facility] [place] [address] Laboratory Report Ordering Provider Test Date Status AIRAMLOLLY 11/04/2023 14:04:35 Final Observation Date Value Abnormality Reference (Units ) Status Nucleated erythrocytes/100 leukocytes [Ratio] in Blood by Automated count 11/04/2023 14:04:35 Final Performing Location [facility] [place] [place] [address]
--- OUTSIDE RECORDS SUMMARY | 2024-04-26 11:03 | External Medical Summary | Summary of Care ---
Author Name Unknown Organization [facility] Address [address] [place] [address] Phone [phone] Care Team Providers Care Toxicologist Name Role Phone Jairo Kingston MD Primary Care Provider +1- [phone] Reason for Visit * Reason Onset Date Comments Appointment 11/08/2023 Encounter Created in Error 11/08/2023 Encounter Details Date Type Department Care Team (Late st Contact Info) Description 11/08/2023 Telephone Vascular Surg [facility] [address] [place] [address] Mikhail Suazo MD [address] [place], [place] [phone] Appointment; Encounter Created in Error Allergies Active Allergy Reactions Criticality Noted Date [...] 2017 classification ([facility]) 2.5 mg NEBULIZER PRN 10/03/2023 10/02/2024 [...] Description 11/15/2023 10:00 AM EDT [facility] [address] [place] [address] Jenifer Linder RN 132 [place] [address] 11/18/2023 2:00 PM EDT Hem/Onc Treatment Hematology/[address]cology [address] [phone] Hannah, Chair 8 Hem Onc [address] [place] [address] 12/02/2023 2:00 PM EDT Hem/Onc Treatment Hematology/Oncology Treatment, [address] [phone] Hannah, Chair 9 Hem Onc [address] [place] [address] 12/13/2023 3:00 PM EDT Office Visit Nephrology, [facility] 200 [facility] [place], [place] [address] Reggie Azevedo MD 200 [facility] [place] [address] 12/14/2023 9:15 AM EDT Office Visit Hematology/Oncology [facility] 200 [facility] [place] [phone] Michael Snyder MD 200 [facility] [place] [address] 01/19/2024 4:45 PM EDT Imaging [facility] 132 [facility] [place] [address] 03/28/2024 3:20 PM EST Office Visit Sleep Disorders Ctr [facility] 132 [facility] [place] [phone] Shanika Fitzgerald, DO 132 [facility] [place] [address] 04/03/2024 10:30 AM EST PulmDiagnostic Pulmonary Function Lab, [facility] 132 [facility] [place] [address] West, Pft 132 [facility] [place] [address] 04/03/2024 11:00 AM EST PulmDiagnostic Pulmonary Function Lab, [facility] 132 [facility] [place] [address] West, Pft 132 [facility] [place] [address] 04/03/2024 1:40 PM EST Office Visit Pulmonary Medicine, [facility] 132 [facility] [place] [address] Devin Hodge MD [address] [place] [address] 04/24/2024 6:00 PM EST Office Visit [facility] [address] [facility] [address] Jairo Kingston MD [address] [place] [facility] [place] [address] Scheduled Procedures Name Priority Associated Diagnoses [...] this encounter Medical Devices Implanted Type Area Hydraulic Rock Drill Operator Device Identifier Shelf Expiration Date Model / Serial / Lot Graft Hemasheild 20mm 950455m - [id number] Implanted:Qty: 1 on 01/13/2009 [place] [facility] [place]A: Abdomen MICROVASIVE [id number] / / [id number] Clip Resolution 360 Endo 235cm - [id number] Implanted:Qty: 1 on 12/10/2022 by Lacie England MD at OR [facility] [employer] : ENDOSCOPY [id number] 07/02/2025 [id number] / / [id number] Clip Resolution 360 Endo 235cm - [id number] Implanted:Qty: 1 on 12/10/2022 by Lacie England MD at OR [facility] [employer] : ENDOSCOPY [id number] 07/02/2025 [id number] / / [id number] Stent Biliary Adult L30mm Dia1 - [id number] Implanted:Qty: 1 on 10/26/2023 by Lacie England MD at OR [facility] [place] : JOHANNA COURTNEY [id number] 06/27/2026 [id number] / / [id number] documented as of this encounter Advance Directives Documents on File Type Date Recorded Patient Analog Design Engineer Expl anation Power of Box Truck Owner Operator 07/30/2022 POWER OF A TTORNEY * [...] and were consensually agreed upon. Care Teams Toxicologist Relationship Specialty Start Date End Date Jairo Kingston MD [address] [place] [address] PCP - General 12/21/05 documented as of this encounter
--- OUTSIDE RECORDS SUMMARY | 2024-04-26 11:04 | External Medical Summary | Summary of Care ---
Author Name Unknown Organization [facility] Address [address] [address] Phone [phone] Care Team Providers Care Certified Optician Name Role Phone Jairo Kingston MD Primary Care Provider +1- [phone] Reason for Visit * Reason Onset Date Comments [facility]: Maintenance 10/28/2023 Encounter Details Date Type Department Care Team (Late st Contact Info) Description 10/28/2023 Telephone [facility], [facility] [address] [place] [address] Jenifer Linder RN [address] [place] [address] [facility]: Maintenance Allergies Active Allergy Reactions Criticality Noted Date Comments Pavan Inhibitors Other (Please comment) 0 Hyperkalemia documented as of this encounter (statuses as of 11/01/2023) Medications Medication Sig Dispensed Refills Start Date [...] 0.1 % Nasal Solution (Astelin) Administer 1 [place] into nostril in the morning and 1 [place] before bedtime. 30 mL 1 01/11/2023 Active [...] mgIndications:COPD, group D, by GOLD 2017 classification ([facility]) 2.5 mg NEBULIZER PRN 10/03/2023 10/02/2024 Acti ve documented as of this encounter (statuses as of 11/01/2023) Active Problems Problem Noted Date Diagnosed Date [...] as of this encounter (statuses as of 11/01/2023) Resolved Problems Problem Noted Date Diagnosed Date [...] as of this encounter (statuses as of 11/01/2023) Immunizations Name Administration Dates Next Due COVID-19 [...] encounter Miscellaneous Notes * Telephone Encounter - Dequan Rojas RN - 10/31/2023 1:36 PM EDT Message sent to pharmacy to ensure there will be venofer available. Addendum: venofer available for this patient. * Addendum Note - Dequan Rojas RN - 10/31/2023 1:34 PM EDTAddended by: DEQUNA ROJAS on: 10/31/2023 01:34 PM Modules accepted: Orders * Telephone Encounter - Mine Borja OSA - 10/31/2023 8:53 AM EDT Pt is rescheduled for Tuesday Please advise if anything needs changed for this apt * Telephone Encounter - Jenifer Linder RN - 10/28/2023 4:03 PM EDT Patient missed his last Iron infusion d/t hospitalization. He would like to get this rescheduled IRVIN. Could you please reach out to his one of his daughters to get this set up? Either Kerrie or Mitzi please. Thank you! documented in this encounter Plan of Treatment Upcoming Encounters Date Type Department Care Team (Late st Contact Info) Description 11/02/2023 2:00 PM EDT Hem/Onc Treatment Hematology/Oncology [address], [address] [phone] Hannah, Chair 11 Hem On[address] [place] [address] 11/08/2023 11:00 AM EDT Office Visit [facility] [address] [place] [phone] Jairo Kingston MD [address] [place] [address] 11/15/2023 10:00 AM EDT Home Visit [facility] 132 [facility] [place] [address] Jenifer Linder RN 132 [facility] [place] [address] 11/18/2023 2:00 PM EDT Hem/Onc Treatment Hematology/Oncology Treatment, [place] 200 [facility] [place] [phone] Hannah, Chair 6 Hem Onc [address] [place] [address] 12/13/2023 3:00 PM EDT Office Visit Nephrology, [facility] Hannah [address] [place] [address] [place] [address] Reggie Azevedo MD [address] [place] [address] 12/14/2023 9:15 AM EDT Office Visit Hematology/Oncology [facility] [address] [place] [phone] Michael Snyder MD [address] [place], [place] [address] 01/19/2024 4:45 PM EDT Imaging Radiology [facility] 132 [facility] [place] [address] 03/28/2024 3:20 PM EST Office Visit Sleep Disorders [facility]tr [facility] 132 [facility] [place] [phone] Shanika Fitzgerald, 132 [facility] [place] [address] 04/03/2024 10:30 AM EST PulmDiagnostic Pulmonary Function Lab, [facility] 132 [facility] [place] [address] [address], Pft 132 [facility] [place] [address] 04/03/2024 11:00 AM EST PulmDiagnostic Pulmonary Function Lab, [facility] 132 [facility] [place] [address] [address], [address]ft 132 [facility] [place] [address] 04/03/2024 1:40 PM EST Office Visit Pulmonary Medicine, [facility] 132 [facility] [place] [address] Devin Hodge MD [address] [place] [address] 04/24/2024 6:00 PM EST Office Visit [facility] [address] [place] [address] Jairo Kingston MD [address] [place] [address] Scheduled Procedures Name Priority Associated Diagnoses [...] encounter Medical Devices Implanted Type Area Manager Applied Device Identifier Shelf Expiration Date Model / Serial / Lot Graft Hemasheild 20mm [id number] - [id number] Implanted:Qty: 1 on 01/13/2009 at OR [facility] N/A: Abdomen MICROVASIVE [id number] / / [id number] Clip Resolution 360 Endo 235cm - [id number] Implanted:Qty: 1 on 12/10/2022 by Lacie England MD at OR [facility] [employer] : ENDOSCOPY [id number] 07/02/2025 [id number] / / [id number] Clip Resolution 360 Endo 235cm - [id number] Implanted:Qty: 1 on 12/10/2022 by Lacie England MD at OR [facility] [employer] : ENDOSCOPY [id number] 07/02/2025 [id number] / / [id number] Stent Biliary Adult L30mm Dia1 - [id number] Implanted:Qty: 1 on 10/26/2023 by Lacie England MD at OR [facility] ROZ : JOHANNA COURTNEY [id number] 06/27/2026 [id number] / / [id number] documented as of this encounter Advance Directives Documents on File Type Date Recorded Patient Contracting Analyst Expl anation Power of Toppiece Chopper 07/30/2022 POWER OF A TTORNEY * Full [...] and were consensually agreed upon. Care Teams Certified Optician Relationship Specialty Start Date End Date Jairo Kingston MD [address] [place] [address] PCP - General 12/21/05 documented as of this encounter
--- OUTSIDE RECORDS SUMMARY | 2024-04-26 11:04 | External Medical Summary | Summary of Care ---
Author Name Unknown Organization [facility] Address [address] [address] Phone [phone] Care Team Providers Care Health Promoter Name Role Phone Jairo Kingston MD Primary Care Provider +1- [phone] Reason for Visit * Reason Onset Date Comments [facility]: Acute 11/02/2023 Encounter Details Date Type Department Care Team (Late st Contact Info) Description 11/02/2023 Telephone [facility], [facility] 132 [facility] [place] [address] [facility], Nurse [facility] 132 [facility] [place] [address] [facility]: Acute Allergies Active Allergy Reactions Criticality Noted Date Comments Pavan Inhibitors Other (Please comment) 0 Hyperkalemia documented as of this encounter (statuses as of 11/02/2023) Medications Medication Sig Dispensed Refills Start Date [...] 0.1 % Nasal Solution (Astelin) Administer 1 [place] into nostril in the morning and 1 [place] before bedtime. 30 mL 1 01/11/2023 Active [...] group D, by GOLD 2017 classification ([facility]) 2.5 mg NEBULIZER PRN 10/03/2023 10/02/2024 Acti ve documented as of this encounter (statuses as of 11/02/2023) Active Problems Problem Noted Date Diagnosed Date [...] as of this encounter (statuses as of 11/02/2023) Resolved Problems Problem Noted Date Diagnosed Date [...] as of this encounter (statuses as of 11/02/2023) Immunizations Name Administration Dates Next Due COVID-19 [...] Miscellaneous Notes * Telephone Encounter - Bianca Andino RN - 11/02/2023 12:29 PM EDT Called and spoke with daughter informed her of recommendations for her father: He needs to drink at least 64 oz clear fluids/ day Continue Miralax BID mixed per package instructions Add Senna 8.6 mg BID Repeat Dulcolax suppository this afternoon if no BM by then Daughter stated her father did not have a BM yet but did go to the bathroom and "passed a lot of gas ". Daughter aware a phone call is scheduled for tomorrow morning, if no BM by then he may need a enemawith a [facility] . Daughter aware to call [facility] back if his symptoms worsen, bam abdominal pain, nausea, vomiting or fever. Bianca Andino senior solutions consultantRelocation Commissioner [facility] * Telephone Encounter - Ramos Peterson MD - 11/02/2023 12:05 PM EDT Constipation Recent SBO Recommend: At least 64 oz clear fluids/day Continue miralax bid mixed per package instructions Add senna 8.6 mg bid Repeat ducolax suppository this afternoon if no BM Phone call escalating to home visit tomorrow if no BM by then. He may need enema at that point Call back if worsening sx bam abd pain, n/v, fever Ramos Peterson MD, [facility], [facility], FAAFP Remote Medical Command ([facility]) [facility] Available on SafetyTat * Telephone Encounter - Bianca Andino RN - 11/02/2023 11:21 AM EDT [facility] vessel liner Acute Call Date: 11/02/2023 Time: 11:21 AM Name: Mikhail Fung : 1950 Caller: Kerrie Relationship to : daughter HPI: Mikhail Fung is a 73 year old male whose daughter/ Kerrie is calling [facility] report her father was admitted to the hospital on 10/20 for abdominal pain/vomiting and was diagnosed with a bowel obstruction. He was discharged on 10/26 and bowel movements were normal for a few days. Daughter is calling today because her father has not had any bowel movements for 3 days. Her father was not instructed to take any laxatives on discharge but he did take 2 doses of Miralaxyesterday and used a Dulcolax suppository this morning. Patient denies any abdominal pain, no nausea or vomiting, no fevers, just feels "bloated". Patient states "he is passing a little gas ". He was eating and drinking well, not eating much today because of the bloating. Nursing Assessment: Patient's chief complaint for this call: Other, describe :Bloated, no BM's for 3 days, recent bowel obstruction Pain Denies pain Baseline Assessment Able to performing ADLs at baseline (walking, daily tasks, etc.): Yes Chief Complaint is related to a chronic condition: No Patient prescribed oxygen? Yes, 2-3L/min Patient has been ordered DME equipment (assistive devices, respiratory equipment, etc.): Yes Describe DME devices: oxygen and nebulizer Patient is using DME device as directed: Yes Medication Reconciliation: (See medication list) Received flu shot this season: Yes Taking medication as ordered: Yes Medications ordered/taking to treat reason for call: Yes, PRN medication(s) miralax and dulcolax suppository Heart failure symptoms: No COPD exacerbation symptoms: No Reinforcement Education: Stay hydrated Continue medications Treatment/Plan: (need to report) Level of call: Acute Appointment scheduled for same day: TBD Await [facility] recommendations Preferred pharmacy [facility] [place] Follow up phone calls Bianca Andino RN Relocation Commissioner [facility] documented in this encounter Plan of Treatment Upcoming Encounters Date Type Department Care Team (Late st Contact Info) Description 11/03/2023 9:30 AM EDT Scheduled Telephone [facility], [address] [place] [address] Coordinator, [address] [place] [address] 11/04/2023 11:45 AM EDT Scheduled Telephone [facility], [address] [place] [address] Coordinator, [address] [place] [address] 11/04/2023 2:00 PM EDT Hem/Onc Treatment Hematology/Oncology Treatment, [address] [place] [phone] Hannah, Chair 10 Hem Onc [facility] 200 [place] [address] 11/08/2023 11:00 AM EDT Office Visit [facility] [address] [facility] [phone] Jairo Kingston MD [address] [facility] [address] 11/15/2023 10:00 AM EDT Home Visit [facility], [facility] 132 [facility] [place] [address] Jenifer Linder, RN 132 [facility] [place] [address] 11/18/2023 2:00 PM EDT Hem/Onc Treatment Hematology/Oncology Treatment, [place] [address] [place], [place] [phone] Hannah, Chair 6 Hem Onc [address] [place] [address] 12/13/2023 3:00 PM EDT Office Visit Nephrology, [facility] 200 [facility] [place] [address] Reggie Azevedo MD 200 [facility] [place] [address] 12/14/2023 9:15 AM EDT Office Visit Hematology/Oncology [facility] 200 [facility] [place] [address] Michael Snyder MD 200 [facility] [place] [address] 01/19/2024 4:45 PM EDT Imaging Radiology [facility] 1st [facility], [place] 132 [facility] [place] [address] 03/28/2024 3:20 PM EST Office Visit [facility] Disorders Ctr [facility] 132 [facility] [place] [phone] Shanika Fitzgerald DO 132 [facility] [place] [address] 04/03/2024 10:30 AM EST PulmDiagnostic Pulmonary Function Lab, [facility] 132 [facility] [address] [place] [address] West, Pft 132 [facility] [place] [address] 04/03/2024 11:00 AM EST PulmDiagnostic Pulmonary Function Lab, [facility] 132 [facility] [address] [address] West, Pft 132 [facility] [place] [address] 04/03/2024 1:40 PM EST Office Visit Pulmonary Medicine, [facility] 132 [facility] [place] [address] Devin Hodge MD [address] [place] [address] 04/24/2024 6:00 PM EST Office Visit [facility] [address] [place] [phone] Jairo Kingston MD [address] [place], [place] [phone] Scheduled Procedures Name Priority Associated Diagnoses Date/Ti [...] this encounter Medical Devices Implanted Type Area Jingle Writer Device Identifier Shelf Expiration Date Model / Serial / Lot Graft Hemasheild 20mm [id number] - [id number] Implanted:Qty: 1 on 01/13/2009 at OR [facility] N/A: Abdomen MICROVASIVE [id number] / / [id number] Clip Resolution 360 Endo 235cm - [id number] Implanted:Qty: 1 on 12/10/2022 by Lacie England MD at OR [facility] [employer] : ENDOSCOPY [id number] 07/02/2025 [id number] / / [id number] Clip Resolution 360 Endo 235cm - [id number] Implanted:Qty: 1 on 12/10/2022 by Lacie England MD at OR [facility] [employer] : ENDOSCOPY [id number] 07/02/2025 [id number] / / [id number] Stent Biliary Adult L30mm Dia1 - [id number] Implanted:Qty: 1 on 10/26/2023 by Lacie England MD at OR [facility] C[facility] : JOHANNA COURTNEY [id number] 06/27/2026 [id number] / / [id number] documented as of this encounter Advance Directives Documents on File Type Date Recorded Patient Aerotriangulation Specialist Expl anation Power of Converter Operator 07/30/2022 POWER OF A TTORNEY * [...] were consensually agreed upon. Care Teams Health Promoter Relationship Specialty Start Date End Date Jairo Kingston MD [address] [facility] [place] [address] PCP - General 12/21/05 documented as of this encounter
--- OUTSIDE RECORDS SUMMARY | 2024-04-26 11:04 | External Medical Summary | Summary of Care ---
Author Name Unknown Organization [facility] Address [address] [place] [address] Phone [phone] Care Team Providers Care Diving Board Assembler Name Role Phone Jairo Kingston MD Primary Care Provider +1- [phone] Reason for Visit * Reason Onset Date Comments [facility]: Acute 11/02/2023 Encounter Details Date Type Department Care Team (Late st Contact Info) Description 11/02/2023 Telephone [facility], [facility] 132 [facility] [place] [address] [facility], Nurse [facility] 132 [facility] [place] [address] [facility]: Acute Allergies Active Allergy [...] 0.1 % Nasal Solution (Astelin) Administer 1 [place] into nostril in the morning and 1 [place] before bedtime. 30 mL 1 01/11/2023 Active [...] mgIndications:COPD, group D, by GOLD 2017 classification ([facility]) 2.5 mg NEBULIZER PRN 10/03/2023 [...] then he may need a enemawith a [facility] HV . Follow up phone call scheduled for tomorrow morning, possible HV for enema. Daughter aware to call [facility] back if his symptoms worsen, bam abdominal pain, nausea, vomiting or fever. Bianca Andino wool buyerTube Handler [facility] * Telephone Encounter - Ramos Peterson MD [...] abd pain, n/v, fever Ramos Peterson MD, [facility], [facility], FAAFP Remote Medical Command ([facility]) [facility] Available on [employer] * Telephone Encounter - Bianca Andino RN - 11/02/2023 11:21 AM EDT [facility] pitch filler Acute Call Date: 11/02/2023 Time: 11:21 AM Name: Mikhail Fung : 1950 Caller: Kerrie Relationship to : daughter HPI: Mikhail Fung is a 73 year old male whose daughter/ Kerrie is calling [facility] report her father was [...] Appointment scheduled for same day: TBD Await [facility] recommendations [facility] [place] Follow up phone calls Bianca Andino RN Tube Handler [facility] documented in this encounter Plan of Treatment Upcoming Encounters Date Type Department Care Team (Late st Contact Info) Description 11/03/2023 9:30 AM EDT Scheduled Telephone [facility], [address] [place] [address] Coordinator, [place] [address] [facility] [place] [address] 11/04/2023 11:45 AM EDT Scheduled Telephone [facility] [place], [place] [address] [address] [place] [address] Coordinator, [address] [place] [address] 11/04/2023 2:00 PM EDT Hem/Onc Treatment Hematology/Oncology Treatment, [place] [address] [facility] [place] [phone] Hannah, Chair 10 Hem Onc Scene 200 [place] [address] 11/08/2023 11:00 AM EDT [address] [phone] Jairo Kingston MD [address] [place] [address] 11/15/2023 10:00 AM EDT Home Visit [facility], [facility] 132 [facility] [place] [address] Jenifer Linder, RN 132 [facility] [place] [address] 11/18/2023 2:00 PM EDT Hem/Onc Treatment Hematology/Oncology Treatment, [place] [address] [place], [place] [phone] Hannah, Chair 6 Hem Onc [address] [place] [address] 12/13/2023 3:00 PM EDT Office Visit Nephrology, [facility] 200 [facility] [place] [address] Reggie Azevedo MD 200 [facility] [place], [place] [address] 12/14/2023 9:15 AM EDT Office Visit Hematology/Oncology [facility] [address] [place] [phone] Michael Snyder MD 200 [facility] [place], [place] [address] 01/19/2024 4:45 PM EDT Imaging Radiology [facility] 1st [facility] 132 [facility] [place] [address] 03/28/2024 3:20 PM EST Office Visit Sleep Disorders Ctr [facility] 132 [facility] [place] [phone] Shanika Fitzgerald, 132 [facility] [place] [address] 04/03/2024 10:30 AM EST PulmDiagnostic Pulmonary Function Lab, [facility] 132 [facility] [place] [address] [address], Pft 132 [facility] [place] [address] 04/03/2024 11:00 AM EST PulmDiagnostic Pulmonary Function Lab, [facility] 132 [facility] [place] [address] [address], Pft 132 [facility] [place] [address] 04/03/2024 1:40 PM EST Office Visit Pulmonary Medicine, [facility] 132 [facility] [place] [address] Devin Hodge MD [address] [place] [facility] [place] [address] 04/24/2024 6:00 PM EST Office Visit [facility] [address] [place] [address] Jairo Kingston MD [address] [place] [address] Scheduled Procedures Name Priority Associated Diagnoses Date/Ti [...] 10/22/2023, 110 10/2022, 12/09/2022, Additional history exists Hgb 10/25/2024 [...] this encounter Medical Devices Implanted Type Area Statistical Methods Teacher Device Identifier Shelf Expiration Date Model / Serial / Lot Graft Hemasheild 20mm [id number] - [id number] Implanted:Qty: 1 on 01/13/2009 [place] [facility] [place] [place]/A: Abdomen MICROVASIVE [id number] / / [id number] Clip Resolution 360 Endo 235cm - [id number] Implanted:Qty: 1 on 12/10/2022 by Lacie England MD at OR [facility] [employer] : ENDOSCOPY [id number] 07/02/2025 [id number] / / [id number] Clip Resolution 360 Endo 235cm - [id number] Implanted:Qty: 1 on 12/10/2022 by Lacie England MD at OR [facility] [employer] : ENDOSCOPY [id number] 07/02/2025 [id number] / / [id number] Stent Biliary Adult L30mm Dia1 - [id number] Implanted:Qty: 1 on 10/26/2023 by Lacie England MD at OR [facility] COOK : JOHANNA COURTNEY [id number] 06/27/2026 [id number] / / [id number] documented as of this encounter Advance Directives Documents on File Type Date Recorded Patient Last Remodeler Repairer Expl anation Power of Entry Level Account Manager 07/30/2022 POWER OF A TTORNEY * [...] and were consensually agreed upon. Care Teams Diving Board Assembler Relationship Specialty Start Date End Date Jairo Kingston MD [address] [facility] [place] [facility] [place] [address] PCP - General 12/21/05 documented as of this encounter
--- OUTSIDE RECORDS SUMMARY | 2024-04-26 11:04 | External Medical Summary | Summary of Care ---
Author Name Unknown Organization [facility] Address [address] [place] [address] Phone [phone] Care Team Providers Care Radiation Oncologist Name Role Phone Jairo Kingston MD Primary Care Provider +1- [phone] Reason for Visit * Reason Onset Date Comments [facility]: Acute 11/02/2023 Encounter Details Date Type Department Care Team (Late st Contact Info) Description 11/02/2023 Telephone [facility], [facility] [address] [facility] [place] [address] [facility], Nurse [facility] [address] [facility] [place] [address] [facility]: Acute Allergies Active Allergy [...] 0.1 % Nasal Solution (Astelin) Administer 1 [place] into nostril in the morning and 1 [place] before bedtime. 30 mL 1 01/11/2023 Active [...] mgIndications:COPD, group D, by GOLD 2017 classification ([facility]) 2.5 mg NEBULIZER PRN 10/03/2023 10/02/2024 [...] encounter Miscellaneous Notes * Telephone Encounter - Ramos Peterson MD [...] pain, n/v, fever Ramos Peterson MD, [facility], [place], FAAFP [employer] ([facility]) [facility] on [employer] * Telephone Encounter - Bianca Andino RN - 11/02/2023 11:21 AM EDT [facility] travel occupational therapist Acute Call Date: 11/02/2023 Time: 11:21 AM Name: Mikhail Fung : 1950 Caller: Kerrie Relationship to : daughter HPI: Mikhail Fung is a 73 year old male whose daughter/ Kerrie is calling [employer] [facility] Int[employer] report her father was [...] Appointment scheduled for same day: TBD Await [facility] recommendations [facility] [place] Follow up phone calls Bianca Andino RN Automotive Machinist Apprentice [facility] documented in this encounter Plan of Treatment Upcoming Encounters Date Type Department Care Team (Late st Contact Info) Description 11/04/2023 2:00 PM EDT Hem/Onc Treatment Hematology/Oncology Treatment, [place] [address] [facility], [place] [phone] Hannah, Chair 10 Hem Onc Scenery [address] [place] [address] 11/08/2023 11:00 AM EDT Office [facility] [address] [facility], [place] [phone] Jairo Kingston MD [address] [place] [facility] [place] [address] 11/15/2023 10:00 AM EDT Home Visit [facility] [address] [place] [address] Jenifer Linder RN [address] [place] [address] 11/18/2023 2:00 PM EDT Hem/Onc Treatment Hematology/Oncology Treatment, [place] [address] [facility], [place] [phone] Hannah, Chair 6 Hem Onc Scene 200 [facility] [place] [address] 12/13/2023 3:00 PM EDT Office Visit Nephrology, [facility] [address] [place] [address] Reggie Azevedo MD [address] [place] [address] 12/14/2023 9:15 AM EDT Office Visit Hematology/Oncology [facility] Hannah [place] [address] [place] [phone] Michael Snyder MD [address] [place] [address] 01/19/2024 4:45 PM EDT Imaging Radiology [address], [place] [address] [facility] [place] [address] 03/28/2024 3:20 PM EST Office Visit Sleep Disorders Ctr [facility] [address] [facility] [place] [phone] Shanika Fitzgerald, DO 132 [facility] [place] [address] 04/03/2024 10:30 AM EST PulmDiagnostic Pulmonary Function Lab, [address] [place] [address] West, Pft [address] [facility] [place] [address] 04/03/2024 11:00 AM EST PulmDiagnostic Pulmonary Function Lab, [facility] [address] [facility] [place] [address] West, Pft [address] [facility] [place] [address] 04/03/2024 1:40 PM EST Office Visit Pulmonary Medicine, [address] [place] [address] Devin Hodge MD [address] [place] [address] 04/24/2024 6:00 PM EST Office Visit Family [facility] [address] [facility] [phone] Jairo Kingston MD [address] [place] [address] Scheduled Procedures Name Priority Associated Diagnoses Date/Ti [...] this encounter Medical Devices Implanted Type Area Commercial Title Examiner Device Identifier Shelf Expiration Date Model / Serial / Lot Graft Hemasheild 20mm [id number] - [id number] Implanted:Qty: 1 on 01/13/2009 [place] [facility] [facility] [place]A: Abdomen MICROVASIVE [id number] / / [id number] Clip Resolution 360 Endo 235cm - [id number] Implanted:Qty: 1 on 12/10/2022 by Lacie England MD at OR [facility] : ENDOSCOPY [id number] 07/02/2025 [id number] / / [id number] Clip Resolution 360 Endo 235cm - [id number] Implanted:Qty: 1 on 12/10/2022 by Lacie England MD at OR [facility] : ENDOSCOPY [id number] 07/02/2025 [id number] / / [id number] Stent Biliary Adult L30mm Dia1 - [id number] Implanted:Qty: 1 on 10/26/2023 by Lacie England MD at OR [facility] COOK : JOHANNA COURTNEY [id number] 06/27/2026 [id number] / / [id number] documented as of this encounter Advance Directives Documents on File Type Date Recorded Patient Maintenance Construction Helper Expl anation Power of Pipe Changer 07/30/2022 POWER OF A TTORNEY * Full [...] and were consensually agreed upon. Care Teams Radiation Oncologist Relationship Specialty Start Date End Date Jairo Kingston MD [address] [facility] [place] [phone] PCP - General 12/21/05 documented as of this encounter
--- OUTSIDE RECORDS SUMMARY | 2024-04-26 11:04 | External Medical Summary | Summary of Care ---
Author Name Unknown Organization [facility] Address [address] [place] [place] [address] Phone [phone] Care Team Providers Care Housing Officer Name Role Phone Jairo Kingston MD Primary Care Provider +1- [phone] Reason for Visit * Reason Onset Date Comments [facility]: Maintenance 10/28/2023 Encounter Details Date Type Department Care Team (Late st Contact Info) Description 10/28/2023 Telephone [facility], [facility] [address] [place] [address] Jenifer Lnider RN [address] [place] [address] [facility]: Maintenance Allergies Active Allergy [...] 0.1 % Nasal Solution (Astelin) Administer 1 [place] into nostril in the morning and 1 [place] before bedtime. 30 mL 1 01/11/2023 Active [...] group D, by GOLD 2017 classification ([facility]) 2.5 mg NEBULIZER PRN 10/03/2023 10/02/2024 [...] 0 11/11/2022 Last Assessment & Plan: Allopurinol snf No new attacks GINNY on [...] Encounter - Jenifer Linder RN - 10/28/2023 4:07 PM EDT Cruzito Chris is scheduled to see a PA in [place] on 11/02. His PCP office is in [place] and he does not want to go to [place] for a hospital d/c appt. Can you please help with canceling this and getting him an appt with [facility]? Thank you! documented in this encounter Plan of Treatment Upcoming Encounters Date Type Department Care Team (Late st Contact Info) Description 11/04/2023 11:45 AM EDT Scheduled Telephone [facility], [facility] [address] [place] [address] Coordinator, [facility] [address] [place] [address] 11/04/2023 2:00 PM EDT Hem/Onc Treatment Hematology/Oncology Treatment, [place] 200 [facility], [place] [phone] Hannah, Chair 10 Hem Onc Scenery [address] [place] [address] 11/08/2023 11:00 AM EDT Office Visit [facility] [address] [place] [facility] [place] [address] Jairo Kingston MD [address] [place] [facility] [address] 11/15/2023 10:00 AM EDT Home Visit [facility] [address] [facility] [place] [address] Jenifer Linder RN [address] [facility] [place] [address] 11/18/2023 2:00 PM EDT Hem/Onc Treatment Hematology/Oncology Treatment, [place] [address] [facility], [place] [phone] Park, Chair 8 Hem Onc [facility] [address] [place] [address] 12/13/2023 3:00 PM EDT Office Visit Nephrology, [facility] [address] [place], [place] [address] Reggie Azevedo MD [address] [place] [address] 12/14/2023 9:15 AM EDT Office Visit Hematology/Oncology [facility] [place] [address] [place] [phone] Michael Snyder MD [address] [place], [place] [address] 01/19/2024 4:45 PM EDT Imaging Radiology [address], [place] [address] [facility] [place] [address] 03/28/2024 3:20 PM EST Office Visit Sleep Disorders Ctr [facility] 132 [facility] [place] [phone] Shanika Fitzgerald, DO 132 [facility] [place] [address] 04/03/2024 10:30 AM EST PulmDiagnostic Pulmonary Function Lab, [facility] 132 [facility] [place] [address] West, Pft 132 [facility] [place] [address] 04/03/2024 11:00 AM EST PulmDiagnostic Pulmonary Function Lab, [facility] [address] [facility] [place] [address] West, Pft 132 [facility] [place] [address] 04/03/2024 1:40 PM EST Office Visit Pulmonary Medicine, [facility] [address] [facility] [place] [address] Devin Hodge MD [address] [place] [address] 04/24/2024 6:00 PM EST Office Visit [facility] [address] [place] [facility] [place] [address] Jairo Kingston MD [address] [place] [address] Scheduled Procedures Name Priority Associated Diagnoses Date/Ti [...] 10/21/2024 10/22/2023, 1110/2022, 12/09/2022, Additional history exists Hgb 10/25/2024 10/26/2023, [...] this encounter Medical Devices Implanted Type Area Histology Manager Device Identifier Shelf Expiration Date Model / Serial / Lot Graft Hemasheild 20mm [id number] - [id number] Implanted:Qty: 1 on 01/13/2009 at OR [facility] N/A: Abdomen MICROVASIVE [id number] / / [id number] Clip Resolution 360 Endo 235cm - [id number] Implanted:Qty: 1 on 12/10/2022 by Lacie England MD at OR [facility] : ENDOSCOPY [id number] 07/02/2025 [id number] / / [id number] Clip Resolution 360 Endo 235cm - [id number] Implanted:Qty: 1 on 12/10/2022 by Lacie England MD at OR [facility] : ENDOSCOPY [id number] 07/02/2025 [id number] / / [id number] Stent Biliary Adult L30mm Dia1 - [id number] Implanted:Qty: 1 on 10/26/2023 by Lacie England MD at OR [facility] COOK : JOHANNA COURTNEY [id number] 06/27/2026 [id number] / / [id number] documented as of this encounter Advance Directives Documents on File Type Date Recorded Patient Field Operations Technician Expl anation Power of Corrugator Helper 07/30/2022 POWER OF A TTORNEY * [...] and were consensually agreed upon. Care Teams Housing Officer Relationship Specialty Start Date End Date Jairo Kingston MD [address] [facility] [place] [phone] PCP - General 12/21/05 documented as of this encounter
--- OUTSIDE RECORDS SUMMARY | 2024-04-26 11:04 | External Medical Summary | Summary of Care ---
Author Name Unknown Organization [facility] Address [address] [place] [address] Phone [phone] Care Team Providers Care Ceramics Artist Name Role Phone Jairo Kingston MD Primary Care Provider +1- [phone] Reason for Visit * Reason Onset Date Comments Advice 11/02/2023 Encounter Details Date Type Department Care Team (Late st Contact Info) Description 11/02/2023 Telephone Access Center, [address] *DO NOT REMOVE THIS DEPARTMENT* [place] [phone] Services, Scheduling [address] [place] [address] Advice Allergies Active Allergy Reactions Criticality Noted [...] 0.1 % Nasal Solution (Astelin) Administer 1 [place] into nostril in the morning and 1 [place] before bedtime. 30 mL 1 01/11/2023 Active [...] mgIndications:COPD, group D, by GOLD 2017 classification ([facility]) 2.5 mg NEBULIZER PRN 10/03/2023 [...] 0 11/11/2022 Last Assessment & Plan: Allopurinol assisted No new attacks GINNY on [...] Telephone Encounter - Mine Borja OSA - 11/02/2023 9:48 AM EDT Rescheduled again for Tuesday They are aware * Telephone Encounter - Leeanna Armstrong OSA - 11/02/2023 9:23 AM EDT Patient daughter is calling to cancel patient treatment for today and reschedule. documented in this encounter Plan of Treatment Upcoming Encounters Date Type Department Care Team (Late st Contact Info) Description 11/04/2023 2:00 PM EDT Hem/Onc Treatment Hematology/Oncology Treatment, [place] [address] [place] [address] Hannah, Chair 10 Hem Onc Scenery [address] [place] [address] 11/08/2023 11:00 AM EDT Office Visit [address] [place] [address] Jairo Kingston MD [address] [place] [address] 11/15/2023 10:00 AM EDT [facility] Visit [facility], [facility] 132 [facility] [place] [address] Jenifer Linder, RN 132 [facility] [place] [address] 11/18/2023 2:00 PM EDT Hem/Onc Treatment Hematology/Oncology Treatment, [place] [address] [place], [place] [phone] Hannah, Chair 6 Hem On[address] [place] [address] 12/13/2023 3:00 PM EDT Office Visit Nephrology, [facility] 200 [facility] [place] [address] Reggie Azevedo MD 200 [facility] [place], [place] [address] 12/14/2023 9:15 AM EDT Office Visit Hematology/Oncology [facility] [address] [place] [phone] Michael Snyder MD 200 [facility] [place], [place] [address] 01/19/2024 4:45 PM EDT Imaging Radiology [facility] 1st [facility] 132 [facility] [place] [address] 03/28/2024 3:20 PM EST Office Visit Sleep Disorders Ctr [facility] 132 [facility] [place] [phone] Shanika Fitzgerald, 132 [facility] [place] [address] 04/03/2024 10:30 AM EST PulmDiagnostic Pulmonary Function Lab, [facility] 132 [facility] [place] [address] West, Pft 132 [facility] [place] [address] 04/03/2024 11:00 AM EST PulmDiagnostic Pulmonary Function Lab, [facility] 132 [facility] [place] [address] West, Pft 132 [facility] [place] [address] 04/03/2024 1:40 PM EST Office Visit Pulmonary Medicine, [facility] 132 [facility] [place] [address] Devin Hodge MD [address] [place] [address] 04/24/2024 6:00 PM EST Office Visit [facility] [address] [place] [address] Jairo Kingston MD [address] [place] [address] Scheduled Procedures Name Priority Associated Diagnoses Date/Ti [...] this encounter Medical Devices Implanted Type Area Ampoule Washing Machine Operator Device Identifier Shelf Expiration Date Model / Serial / Lot Graft Hemasheild 20mm [id number] - [id number] Implanted:Qty: 1 on 01/13/2009 at [place] [facility] [place] N/A: Abdomen MICROVASIVE [id number] / / [id number] Clip Resolution 360 Endo 235cm - [id number] Implanted:Qty: 1 on 12/10/2022 by Lacie England MD at OR [facility] : ENDOSCOPY [id number] 07/02/2025 [id number] / / [id number] Clip Resolution 360 Endo 235cm - [id number] Implanted:Qty: 1 on 12/10/2022 by Lacie England MD at OR [facility] : ENDOSCOPY [id number] 07/02/2025 [id number] / / [id number] Stent Biliary Adult L30mm Dia1 - [id number] Implanted:Qty: 1 on 10/26/2023 by Lacie England MD at OR [facility] COOK : JOHANNA COURTNEY [id number] 06/27/2026 [id number] / / [id number] documented as of this encounter Advance Directives Documents on File Type Date Recorded Patient Special Education Curriculum Specialist Expl anation Power of Travograph Operator 07/30/2022 POWER OF A TTORNEY * [...] and were consensually agreed upon. Care Teams Ceramics Artist Relationship Specialty Start Date End Date Jairo Kingston MD [address] [facility] [place] [address] PCP - General 12/21/05 documented as of this encounter
--- OUTSIDE RECORDS SUMMARY | 2024-04-26 11:04 | External Medical Summary | Summary of Care ---
Author Name Unknown Organization [facility] Address [address] [place] [address] Phone [phone] Care Team Providers Care Veneer Slicing Machine Operator Name Role Phone Jairo Kingston MD Primary Care Provider +1- [phone] Reason for Visit * Reason Onset Date Comments [facility]: Acute 11/02/2023 Encounter Details Date Type Department Care Team (Late st Contact Info) Description 11/02/2023 Telephone [facility], [facility] 132 [facility] [place] [address] [facility], Nurse [facility] [address] [facility] [place] [address] [facility]: Acute Allergies Active Allergy [...] 0.1 % Nasal Solution (Astelin) Administer 1 [place] into nostril in the morning and 1 [place] before bedtime. 30 mL 1 01/11/2023 Active [...] Andino RN - 11/02/2023 11:21 AM EDT [facility] [employer] [facility] paint roller cover machine setter Acute Call Date: 11/02/2023 Time: 11:21 AM Name: Mikhail Fung : 1950 Caller: Kerrie Relationship to : daughter HPI: Mikhail Fung is a 73 year old male whose daughter/ Kerrie is calling [employer] [facility] Int[employer] report her father was [...] Appointment scheduled for same day: TBD Await [facility] recommendations [facility] [place] Follow up phone calls Bianca Andino RN Acute Care Surgeon [facility] documented in this encounter Plan of Treatment Upcoming Encounters Date Type Department Care Team (Late st Contact Info) Description 11/04/2023 2:00 PM EDT Hem/Onc Treatment Hematology/Oncology Treatment, [address] [phone] Hannah, Chair 10 Hem On[address] [place] [address] 11/08/2023 11:00 AM EDT Office [facility] [address] [facility] [phone] Jairo Kingston MD [address] [facility] [place] [address] 11/15/2023 10:00 AM EDT Home Visit [facility] [address] [place] [address] Jenifer Linder RN 132 [facility] [place] [address] 11/18/2023 2:00 PM EDT Hem/Onc Treatment Hematology/Oncology Treatment, [place] [address] [place], [place] [phone] Park, Chair 6 Hem Onc [facility] 200 [facility] [place] [address] 12/13/2023 3:00 PM EDT Office Visit Nephrology, [facility] 200 [facility] [place], [place] [address] Reggie Azevedo MD 200 [facility] [place] [address] 12/14/2023 9:15 AM EDT Office Visit Hematology/Oncology [facility] [place] [address] [place] [phone] Michael Snyder MD 200 [facility] [place] [address] 01/19/2024 4:45 PM EDT Imaging Radiology [facility] 1st [facility] [place] 132 [facility] [place] [address] 03/28/2024 3:20 PM EST Office Visit [facility] Disorders Ctr [facility] 132 [facility] [place] [phone] Shanika Fitzgerald, DO 132 [facility] [place] [address] 04/03/2024 10:30 AM EST PulmDiagnostic Pulmonary Function Lab, [facility] 132 [facility] [place] [address] West, Pft 132 [facility] [place] [address] 04/03/2024 11:00 AM EST PulmDiagnostic Pulmonary Function Lab, [facility] 132 [facility] [place] [address] West, Pft 132 [facility] [place], [place] [address] 04/03/2024 1:40 PM EST Office Visit Pulmonary Medicine, [facility] 132 [facility] [place] [address] Devin Hodge MD [address] [place] [address] 04/24/2024 6:00 PM EST Office Visit [facility] [address] [place] [address] Jairo Kingston MD [address] [place] [address] Scheduled Procedures Name Priority Associated Diagnoses Date/Ti [...] 12/09/2022, Additional history exists Hgb 10/25/2024 10/26/2023, 0 12/2023, 10/24/2023, Additional history exists O2 ASSESSMENT [...] this encounter Medical Devices Implanted Type Area Pearl Hand Device Identifier Shelf Expiration Date Model / Serial / Lot Graft Hemasheild 20mm [id number] - [id number] Implanted:Qty: 1 on 01/13/2009 [place] [facility] [place]: Abdomen MICROVASIVE [id number] / / [id number] Clip Resolution 360 Endo 235cm - [id number] Implanted:Qty: 1 on 12/10/2022 by Lacie England MD at OR [facility] [employer] : ENDOSCOPY [id number] 07/02/2025 [id number] / / [id number] Clip Resolution 360 Endo 235cm - [id number] Implanted:Qty: 1 on 12/10/2022 by Lacie England MD at OR [facility] [employer] : ENDOSCOPY [id number] 07/02/2025 [id number] / / [id number] Stent Biliary Adult L30mm Dia1 - [id number] Implanted:Qty: 1 on 10/26/2023 by Lacie England MD at OR [facility] ROZ : JOHANNA COURTNEY [id number] 06/27/2026 [id number] / / [id number] documented as of this encounter Advance Directives Documents on File Type Date Recorded Patient Baked And Graphite Inspector Expl anation Power of Treatment Plant Mechanic 07/30/2022 POWER OF A TTORNEY * Full [...] and were consensually agreed upon. Care Teams Veneer Slicing Machine Operator Relationship Specialty Start Date End Date Jairo Kingtson MD [address] [place] [address] PCP - General 12/21/05 documented as of this encounter
--- OUTSIDE RECORDS SUMMARY | 2024-04-26 11:05 | External Medical Summary | Summary of Care ---
Author Name Unknown Organization [facility] Address [address] [address] Phone [phone] Care Team Providers Care Dressmaker Garment Fitter Name Role Phone Jairo Kingston MD Primary Care Provider +1- [phone] Reason for Visit * Reason Onset Date Comments [facility]: Maintenance 10/28/2023 Encounter Details Date Type Department Care Team (Late st Contact Info) Description 10/28/2023 Telephone [facility], [facility] [address] [place] [address] Jenifer Linder RN [address] [place] [address] [facility]: Maintenance Allergies Active Allergy Reactions Criticality Noted Date Comments Pavan Inhibitors Other (Please comment) 0 Hyperkalemia documented as of this encounter (statuses as of 10/31/2023) Medications Medication Sig Dispensed Refills Start Date [...] 0.1 % Nasal Solution (Astelin) Administer 1 [place] into nostril in the morning and 1 [place] before bedtime. 30 mL 1 01/11/2023 Active [...] group D, by GOLD 2017 classification ([facility]) 2.5 mg NEBULIZER PRN 10/03/2023 10/02/2024 Acti ve documented as of this encounter (statuses as of 10/31/2023) Active Problems Problem Noted Date Diagnosed Date [...] as of this encounter (statuses as of 10/31/2023) Resolved Problems Problem Noted Date Diagnosed Date [...] as of this encounter (statuses as of 10/31/2023) Immunizations Name Administration Dates Next Due COVID-19 [...] encounter Miscellaneous Notes * Addendum Note - Dequan Rojas RN - 10/31/2023 1:34 PM EDTAddended by: DEQUAN ROJAS on: 10/31/2023 01:34 PM Modules accepted: [...] 2:00 PM EDT Hem/Onc Treatment Hematology/Oncology Treatment, [employer] 200 [facility], [place] [phone] Park, Chair 11 Hem Onc [facility] 200 [facility] [place] [address] 11/08/2023 11:00 AM EDT Office Visit [facility] [address] [place] [address] Jairo Kingston MD [address] [place], [place] [address] 11/15/2023 10:00 AM EDT Home Visit [facility] 132 [facility] [place] [address] Jenifer Linder RN [facility] [address] 11/18/2023 2:00 PM EDT Hem/Onc Treatment Hematology/Oncology Treatment, [employer] 200 [facility], [place] [address] Hannah, Chair 6 Hem Onc [address] [place] [address] 12/13/2023 3:00 PM EDT Office Visit Nephrology, [place] [address] Yul[address] [employer], [place] [address] Reggie Azevedo MD [address] [place], [place] [address]pad[address] [place] [address] 12/14/2023 9:15 AM EDT Office Visit Hematology/Oncology [facility] Hannah [employer] 200 [facility] [place] [address] Michael Snyder MD 200 [place] [address] 01/19/2024 4:45 PM EDT Imaging Radiology [facility] 1st [facility], [employer] 132 [facility] [place] [address] 03/28/2024 3:20 PM EST Office Visit Sleep Disorders Ctr [facility] 132 [facility] [place] [phone] Shanika Fitzgerald, DO 132 [facility] [place], [place] [address] 04/03/2024 10:30 AM EST PulmDiagnostic Pulmonary Function Lab, Health system 132 [facility] [address] West, Pft 132 [facility] [address] 04/03/2024 11:00 AM EST PulmDiagnostic Pulmonary Function Lab, Health [facility] 132 [facility] [place] [address] West, Pft 132 [facility] [address] 04/03/2024 1:40 PM EST Office Visit Pulmonary Medicine, Health system 132 [facility] [place] [address] Devin Hodge MD [address] [place] [address] 04/24/2024 6:00 PM EST Office Visit Family [facility] [address] [facility], [place] [phone] Jairo Kingston MD [address] [place] [address] Scheduled Procedures Name Priority Associated Diagnoses Date/Ti [...] this encounter Medical Devices Implanted Type Area Snack Steward Device Identifier Shelf Expiration Date Model / Serial / Lot Graft Hemasheild 20mm [id number] - [id number] Implanted:Qty: 1 on 01/13/2009 at OR [facility] N/A: Abdomen MICROVASIVE [id number] / / [id number] Clip Resolution 360 Endo 235cm - [id number] Implanted:Qty: 1 on 12/10/2022 by Lacie England MD at OR [facility] [employer] : ENDOSCOPY [id number] 07/02/2025 [id number] / / [id number] Clip Resolution 360 Endo 235cm - [id number] Implanted:Qty: 1 on 12/10/2022 by Lacie England MD at OR [facility] [employer] : ENDOSCOPY [id number] 07/02/2025 [id number] / / [id number] Stent Biliary Adult L30mm Dia1 - [id number] Implanted:Qty: 1 on 10/26/2023 by Lacie England MD at OR [facility] COOK : JOHANNA COURTNEY [id number] 06/27/2026 [id number] / / [id number] documented as of this encounter Advance Directives Documents on File Type Date Recorded Patient Interior Block Wirer Expl anation Power of Store Person 07/30/2022 POWER OF A TTORNEY * Full [...] and were consensually agreed upon. Care Teams Dressmaker Garment Fitter Relationship Specialty Start Date End Date Jairo Kingston MD [address] [place] [address] PCP - General 12/21/05 documented as of this encounter
--- OUTSIDE RECORDS SUMMARY | 2024-04-26 11:05 | External Medical Summary | Summary of Care ---
Author Name Unknown Organization [facility] Address [address] [place] [address] Phone [phone] Care Team Providers Care Tube Bending Machine Operator Name Role Phone Jairo Kingston MD Primary Care Provider +1- [phone] Reason for Visit * Reason Onset Date Comments Appointment 10/31/2023 Encounter Details Date Type Department Care Team (Late st Contact Info) Description 10/31/2023 Telephone [facility], [place] [address] [place] [address] Services, Scheduling [address] [place] [address] Appointment (//) Allergies Active Allergy Reactions Criticality [...] 0.1 % Nasal Solution (Astelin) Administer 1 [place] into nostril in the morning and 1 [place] before bedtime. 30 mL 1 01/11/2023 Active [...] Telephone Encounter - Any Allen OSA - 10/31/2023 11:54 AM EDT Request in basket to cx and rs PCP visit in [place] office rather than [place] office and it was then moved to 11/07@11. Called and pt's daughter agreeable documented in this encounter Plan of Treatment Upcoming Encounters Date Type Department Care Team (Late st Contact Info) Description 11/02/2023 2:00 PM EDT Hem/Onc Treatment Hematology/Oncology Treatment, [address] [address] Hannah, Chair 11 Hem Onc [address] [address] 11/08/2023 11:00 AM EDT [facility] [address] [place] [facility] [place] [address] Jairo Kingston MD [address] [place] [address] 11/15/2023 10:00 AM EDT [facility] Visit [facility], [facility] [address] [place] [address] Jenifer Linder RN [address] [place] [address] 11/18/2023 2:00 PM EDT Hem/Onc Treatment Hematology/Oncology Treatment, [place] [address] [place] [address] Hannah, Chair 6 Hem Onc [facility] 200 [facility] [place] [address] 12/13/2023 3:00 PM EDT Office Visit Nephrology, [facility] 200 [facility] [place] [address] Reggie Azevedo MD 200 [facility] [place] [address] 12/14/2023 9:15 AM EDT Office Visit Hematology/Oncology [facility] [address] [place] [phone] Michael Snyder MD 200 [facility] [place] [address] 01/19/2024 4:45 PM EDT Imaging Radiology [facility] 1st [facility] [address] [place] [address] 03/28/2024 3:20 PM EST Office Visit Sleep Disorders Ctr [facility] [address] [place] [address] Shanika Fitzgerald, 132 [place] [address] 04/03/2024 10:30 AM EST PulmDiagnostic Pulmonary Function Lab, [facility] [address] [place] [address] West, Pft [address] [place] [address] 04/03/2024 11:00 AM EST PulmDiagnostic Pulmonary Function Lab, [facility] 132 [facility] [place] [address] West, Pft 132 [facility] [place] [address] 04/03/2024 1:40 PM EST Office Visit Pulmonary Medicine, [facility] 132 [facility] [place] [address] Devin Hodge MD [address] [facility] [address] 04/24/2024 6:00 PM EST [facility] [address] [place] [address] Jairo Kingston MD [address] [place] [address] Scheduled Procedures Name Priority Associated Diagnoses Date/Ti [...] 12/09/2022, Additional history exists Hgb 10/25/2024 10/26/2023, 12/2023, 10/24/2023, Additional history exists O2 ASSESSMENT [...] this encounter Medical Devices Implanted Type Area Surveillance Agent Device Identifier Shelf Expiration Date Model / Serial / Lot Graft Hemasheild 20mm [id number] - [id number] Implanted:Qty: 1 on 01/13/2009 at [place] [facility] [place]A: Abdomen MICROVASIVE [id number] / / [id number] Clip Resolution 360 Endo 235cm - [id number] Implanted:Qty: 1 on 12/10/2022 by Lacie England MD at OR [facility] [employer] : ENDOSCOPY [id number] 07/02/2025 [id number] / / [id number] Clip Resolution 360 Endo 235cm - [id number] Implanted:Qty: 1 on 12/10/2022 by Lacie England MD at OR [facility] [employer] : ENDOSCOPY [id number] 07/02/2025 [id number] / / [id number] Stent Biliary Adult L30mm Dia1 - [id number] Implanted:Qty: 1 on 10/26/2023 by Lacie England MD at OR [facility] COOK : JOHANNA COURTNEY [id number] 06/27/2026 [id number] / / [id number] documented as of this encounter Advance Directives Documents on File Type Date Recorded Patient Assistant Toddler Teacher Expl anation Power of Television News Anchor [...] and were consensually agreed upon. Care Teams Tube Bending Machine Operator Relationship Specialty Start Date End Date Jairo Kingston MD [address] [facility] [place] [address] PCP - General 12/21/05 documented as of this encounter
--- OUTSIDE RECORDS SUMMARY | 2024-04-26 11:05 | External Medical Summary | Summary of Care ---
Author Name Unknown Organization [facility] Address [address] [address] Phone [phone] Care Team Providers Care Medical Coding Manager Name Role Phone Jairo Kingston MD Primary Care Provider +1- [phone] Reason for Visit * Reason Onset Date Comments [facility]: Maintenance 10/28/2023 Encounter Details Date Type Department Care Team (Late st Contact Info) Description 10/28/2023 Telephone [facility], [facility] [address] [employer] [address] [place] [address] Jenifer Linder RN [address] [place] [address] [facility]: Maintenance Allergies Active Allergy [...] 0.1 % Nasal Solution (Astelin) Administer 1 [place] into nostril in the morning and 1 [place] before bedtime. 30 mL 1 01/11/2023 Active [...] D, by GOLD 2017 classification ([facility]) 2.5 mg NEBULIZER PRN 10/03/2023 10/02/2024 Acti [...] to ensure there will be venofer available. * Addendum Note - Dequan Rojas RN [...] 2:00 PM EDT Hem/Onc Treatment Hematology/Oncology Treatment, [place] [facility] 200 [facility] [place] [address] Hannah, Chair 11 Hem Onc [place] [address] [place] [address] [place] [address] 11/08/2023 11:00 AM EDT Office Visit [facility] [address] [place] [address] Jairo Kingston MD [address] [place] [address] 11/15/2023 10:00 AM EDT Home Visit [facility] 132 [facility] [place] [address] Jenifer Linder RN 132 [place] [address] 11/18/2023 2:00 PM EDT Hem/Onc Treatment Hematology/Oncology Treatment, [place] [facility] 200 [facility] [place] [phone] Hannah, Chair 6 Hem Onc [place] [address] [place] [address] [place] [address] 12/13/2023 3:00 PM EDT Office Visit Nephrology, [place] Hannah [facility] [place] [address] Reggie Azevedo MD [address] [place] [address] 12/14/2023 9:15 AM EDT Office Visit Hematology/Oncology [facility] 200 [facility] [place], [place] [phone] Michael Snyder MD 200 [facility] [place] [address] 01/19/2024 4:45 PM EDT Imaging Radiology [facility]st [facility] 132 [facility] [place] [address] 03/28/2024 3:20 PM EST Office Visit [facility] Disorders Ctr [facility] 132 [facility] [place] [phone] Shanika Fitzgerald, [facility] [place] [address] 04/03/2024 10:30 AM EST PulmDiagnostic Pulmonary Function Lab, [facility] 132 [facility] [place] [address] West, Pft 132 [facility] [place] [address] 04/03/2024 11:00 AM EST PulmDiagnostic Pulmonary Function Lab, [facility] 132 [facility] [place] [address] West, Pft 132 [facility] [place] [address] 04/03/2024 1:40 PM EST Office Visit Pulmonary Medicine, [facility] 132 [facility] [place] [address] Devin Hodge MD [address] [place] [address] 04/24/2024 6:00 PM EST Office Visit [facility] [address] [facility] [place] [address] Jairo Kingston MD [address] [facility] [place] [address] Scheduled Procedures Name Priority Associated Diagnoses [...] this encounter Medical Devices Implanted Type Area Sand Hauler Device Identifier Shelf Expiration Date Model / Serial / Lot Graft Hemasheild 20mm [id number] - [id number] Implanted:Qty: 1 on 01/13/2009 at OR [facility] N/A: Abdomen MICROVASIVE [id number] / / [id number] Clip Resolution 360 Endo 235cm - [id number] Implanted:Qty: 1 on 12/10/2022 by Lacie England MD at OR [facility] [employer] : ENDOSCOPY [id number] 07/02/2025 [id number] / / [id number] Clip Resolution 360 Endo 235cm - [id number] Implanted:Qty: 1 on 12/10/2022 by Lacie England MD at OR [facility] [employer] : ENDOSCOPY [id number] 07/02/2025 [id number] / / [id number] Stent Biliary Adult L30mm Dia1 - [id number] Implanted:Qty: 1 on 10/26/2023 by Lacie England MD at OR [facility] COOK : JOHANNA COURTNEY [id number] 06/27/2026 [id number] / / [id number] documented as of this encounter Advance Directives Documents on File Type Date Recorded Patient Dye House Worker Expl anation Power of Public Health Staff Nurse 07/30/2022 POWER OF A TTORNEY * [...] were consensually agreed upon. Care Teams Medical Coding Manager Relationship Specialty Start Date End Date Jairo Kingston MD [address] [place] [address] PCP - General 12/21/05 documented as of this encounter
--- OUTSIDE RECORDS SUMMARY | 2024-04-26 11:06 | External Medical Summary | Summary of Care ---
Author Name Unknown Organization [facility] Address [address] [address] Phone [phone] Care Team Providers Care Theatre Instructor Name Role Phone Jairo Kingston MD Primary Care Provider +1- [phone] Reason for Visit * Reason Onset Date Comments [facility]: Maintenance 10/28/2023 Encounter Details Date Type Department Care Team (Late st Contact Info) Description 10/28/2023 Telephone [facility], [facility] [address] [employer] [address] [place] [address] Jenifer Linder RN [address] [place] [address] [facility]: Maintenance Allergies Active Allergy [...] 0.1 % Nasal Solution (Astelin) Administer 1 [place] into nostril in the morning and 1 [place] before bedtime. 30 mL 1 01/11/2023 Active [...] D, by GOLD 2017 classification ([facility]) 2.5 mg NEBULIZER PRN 10/03/2023 [...] 0 11/11/2022 Last Assessment & Plan: Allopurinol fci No new attacks GINNY on CPAP 11/11/2022 [...] 2:00 PM EDT Hem/Onc Treatment Hematology/Oncology Treatment, [place] [address] [place] [address] Park, Chair 11 Hem Onc [address] [place] [address] 11/03/2023 3:00 PM EDT Office Visit [facility] [place] [address] [place] [phone] Paula Redman PA-C [address] [place], [place] [address] 11/15/2023 10:00 AM EDT Home Visit [place] [facility], [facility] 132 [facility] [place] [address] Jenifer Linder RN 132 [facility] [place] [address] 11/18/2023 2:00 PM EDT Hem/Onc Treatment Hematology/Oncology Treatment, [place] [address] [place] [phone] Hannah, Chair 6 Hem Onc [address] [place] [address] 12/13/2023 3:00 PM EDT Office Visit Nephrology, [facility] [address] [place] [address] Reggie Azevedo MD [address] [place] [address] 12/14/2023 9:15 AM EDT Office Visit Hematology/Oncology [facility] [place] [address] [place] [phone] Michael Snyder MD [address] [place] [address] 01/19/2024 4:45 PM EDT Imaging Radiology [address] 132 [facility] [place] [address] 03/28/2024 3:20 PM EST Office Visit [facility] Disorders Ctr [facility] 132 [facility] [place] [phone] Shanika Fitzgreald, 132 [facility] [place] [address] 04/03/2024 10:30 AM EST PulmDiagnostic Pulmonary Function Lab, [facility] 132 [facility] [place] [address] West, Pft [address] [place] [address] [place] [address] 04/03/2024 11:00 AM EST PulmDiagnostic Pulmonary Function Lab, [facility] 132 [facility] [place] [address] West, Pft 132 [facility] [place] [address] 04/03/2024 1:40 PM EST Office Visit Pulmonary Medicine, [facility] 132 [facility] [place] [address] Devin Hodge MD [address] [place] [address] 04/24/2024 6:00 PM EST Office Visit [facility] [address] [place] [address] Jairo Kingston MD [address] [place] [address] Scheduled Procedures Name Priority Associated Diagnoses Date/Ti [...] this encounter Medical Devices Implanted Type Area Relaster Device Identifier Shelf Expiration Date Model / Serial / Lot Graft Hemasheild 20mm [id number] - [id number] Implanted:Qty: 1 on 01/13/2009 [place] [facility] [place]: Abdomen MICROVASIVE [id number] / / [id number] Clip Resolution 360 Endo 235cm - [id number] Implanted:Qty: 1 on 12/10/2022 by Lacie England MD at OR [facility] : ENDOSCOPY [id number] 07/02/2025 [id number] / / [id number] Clip Resolution 360 Endo 235cm - [id number] Implanted:Qty: 1 on 12/10/2022 by Lacie England MD at OR [facility] [employer] : ENDOSCOPY [id number] 07/02/2025 [id number] / / [id number] Stent Biliary Adult L30mm Dia1 - [id number] Implanted:Qty: 1 on 10/26/2023 by Lacie England MD at OR [facility] COOK : JOHANNA ROZ [id number] 06/27/2026 [id number] / / [id number] documented as of this encounter Advance Directives Documents on File Type Date Recorded Patient Public Health Aides Teacher Expl anation Power of Boring Mill Set Up Operator 07/30/2022 POWER OF A TTORNEY * [...] and were consensually agreed upon. Care Teams Theatre Instructor Relationship Specialty Start Date End Date Jairo Kingston MD [address] [place] [address] PCP - General 12/21/05 documented as of this encounter
[2024-04-26 11:23] LABS: Hematocrit (blood only) 35.4 % (42.0-52.0); Hemoglobin 11.5 g/dl (14.0-18.0)
[2024-04-26] MEDS: allopurinoL 300 MG TAB PO STA (11:23)
--- NOTE | 2024-04-26 12:05 | CT Scan Report ---
ABDOMEN AND PELVIS CT WITHOUT CONTRAST CT DOSE: 1210.1 mGy.cm HISTORY: GIB TECHNIQUE: Multiaxial CT images of the abdomen and pelvis were performed without contrast. A dose lo wering technique was utilized adhering to the principles of ALARA. COMPARISON STUDY: 11/25/2022 FINDINGS: ABDOMEN: Stable common bile duct stent with expected biliary gas. Liver, spleen, pancreas, and adrena l glands otherwise have an unremarkable non-IV contrasted appearance. Kidneys show no hydronephrosis or calculi. There are scattered atherosclerotic calcifications. Stable abdominal aortic aneurysm azeem uring 3.8 cm diameter. There is a stable small bilateral iliac artery aneurysms.. Stable ventral liborio ia repair. Pelvis: Prostate is enlarged. Urinary bladder is mildly distended. There is sigmoid diverticulosis. N o acute diverticulitis. There is mild retained stool. Normal appendix. No bowel inflammation or obstr uction. No free fluid, free air, or abscess. No enlarged adenopathy. Osseous structures: Stable scoliosis and degenerative disc disease of the lumbar spine. IMPRESSION: No acute findings. ACT 112: Negative or not required by law. The above report was generated using voice recognition software. It may contain grammatical, syntax o r spelling errors. Electronically signed by: Jacinto Borges M.D. 04/26/2024 12:03 PM
--- NOTE | 2024-04-26 13:22 | Gastrointestinal Consultation ---
Date of Consultation April 26, 2024 Assessment & Plan (1) Duodenal ulcer: (2) Anemia: Plan Patient presented to the ED with complaints of abdominal pain and dark stools over the past 2 days. rectal exam in ED shown heme positive stools. hgb stable at 11.5. Doesn't appear to be actively bleeding currently. Had elevated troponin, would continue to monitor. - start protonix 40mg IV bid. - continue to monitor hgb/hct and transfuse as needed. - will discuss case further with Dr. Marshall, further recommendations to follow. Supervising Physician Co-Signing Physician Notes I saw and examined this patient with our nurse practitioner and agree with her assessment and plan. Clinical presentation consistent with recurrent upper GI bleed. In light of his recent history of a duodenal ulcer need to reassess for persistent or recurrent ulcer disease. Hemodynamically stable. Will proceed with endoscopy in a.m. Please continue to hold his Eliquis until after the procedure. Continue IV PPI. History of Present Illness Reason for Consultation: UGIB Requesting Physician: Chantel LIVINGSTON Attending Physician: Jessica Page MD History of Present Illness Patient is a 73 year old male with a past medical history of COPD/chronic respiratory failure on 3L O2, CVA, Aortic aneurysm s/p repair, CKD3, CHF, MGUS, & history of Duodenal ulcer who presented to the ED today 04/26 with complaints of abdominal pain and black stools over the past 2 days. He tells me that he has been moving his bowels once daily, but over the past two days they were dark. no bowel movement yet today per patient. In ED, he had a rectal exam showing heme positive stools. He had a duodenal ulcer on his last EGD here in 08/2023 that was clipped. He tells me he was admitted in October at [facility] [address] for a SBO and had an EGD done to remove this clip. I do not have these records. he denies any nsaid use. He uses eliquis as outpatient "for my heart". he reports that abdominal pain has improved since he has been at the ED. He has had unremarkable KUB and CT earlier this morning. He denies nausea, vomiting, heartburn, dysphagia. 04/26 hgb 11.5 (previously 11.9) Allergies Allergy/AdvReac Type Severity Reaction Status Date / Time RUBENS Inhibitors AdvReac Unknown DROPS Verified 05/05/23 13:26 BLOOD PRESSURE lisinopril AdvReac Unknown DROPS Verified 05/05/23 13:26 BLOOD PRESSURE Home Medications Medication Instructions Recorded Confirmed Type albuterol sulfate 90 mcg/actuation 2 puff inhalation Q4H PRN Wheezing 01/30/23 04/26/24 History aerosol inhaler allopurinol 300 mg tablet 150 mg PO DAILY 01/30/23 04/26/24 History atorvastatin 80 mg tablet 80 mg PO QAM 01/30/23 04/26/24 History azelastine 137 mcg (0.1 %) nasal 1 spray intranasal AMHS Nasal 01/30/23 04/26/24 History spray Congestion cholecalciferol (vitamin D3) 50 50 mcg PO DAILY 01/30/23 04/26/24 History mcg (2,000 unit) tablet (Vitamin D3) docusate sodium 100 mg capsule 100 mg PO BID PRN Constipation 01/30/23 04/26/24 History ezetimibe 10 mg tablet 10 mg PO QAM 01/30/23 04/26/24 History furosemide 20 mg tablet 20 mg PO BID 01/30/23 04/26/24 History ipratropium 0.5 mg-albuterol 3 mg 3 ml inhalation Q6H PRN Shortness 01/30/23 04/26/24 History (2.5 mg base)/3 mL nebulization Of Breath Or Wheezing soln metoprolol tartrate 25 mg tablet 25 mg PO BID 01/30/23 04/26/24 History potassium chloride 10 mEq 10 meq PO 3XWK 01/30/23 04/26/24 History tablet,extended release(part/cryst) (Klor-Con M) fluticasone fur. 100 mcg-umeclid 1 inh inhalation QAM 02/15/23 04/26/24 History 62.5 mcg-vilant 25 mcg inhalat.powder (Trelegy Ellipta) ascorbic acid (vitamin C) 250 mg 125 mg PO QDL 04/21/23 04/26/24 History tablet fluticasone propionate 50 2 spray intranasal DAILY 04/21/23 04/26/24 History mcg/actuation nasal spray,suspension apixaban 2.5 mg tablet (Eliquis) 2.5 mg PO BID 09/02/23 04/26/24 History L.acidop,casei,lactis,rham-B.lact,allie 1 cap PO DAILY #14 caps 09/05/23 04/26/24 Rx 625 mg (10 billion cell) capsule (Advanced Probiotic) pantoprazole 40 mg tablet,delayed 40 mg PO AMHS #60 tabs 09/15/23 04/26/24 Rx release Patient History Medical History MGUS (monoclonal gammopathy of unknown significance) CRF (chronic renal failure) History of cholelithiasis Chronic respiratory failure with hypoxia, on home O2 therapy GERD (gastroesophageal reflux disease) COPD (chronic obstructive pulmonary disease) exacerbation Dec 2022 - Hospitalized [facility] Dec 24-2022. Med change and effective since. Denies current issues. O2 2 L HS & PRN throughout day. PFO (patent foramen ovale) Wide-complex tachycardia CVA (cerebral vascular accident) Gastroparesis pt is not sure about this dx. History of colon polyps x1 a few yrs ago/follow up in 5 yrs. 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 Ascending thoracic aorta at the level of the right pulmonary artery 4.2 cm unchanged. 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 Descending thoracic aorta at the level of the left atrium again up to 4.[address] scan Dec 2022 - pt told everything was stable. 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 follows with Dr. Jefferson Gastric ulcer Hearing deficit BL NAILS Hx SBO History of GI bleed Stroke X 2 (LAST EVENT 05/2020) CONT. TO HAVE SLIGHT BALANCE ISSUES Sleep apnea CPAP Hx of gout PSVT (paroxysmal supraventricular tachycardia) Aortic stenosis Thoracic aortic atherosclerosis, densely calcified coronary arteries, sev erely calcified aortic valve, aneurysmal outpouching of the aortic arch. CKD (chronic kidney disease), stage III follows with [facility] nephrology Hyperlipidemia Hypertension Surgical History History of tonsillectomy History of esophagogastroduodenoscopy (EGD) most recent a few months ago for a bleed, this is a follow up procedure. History of tooth extraction History of tonsillectomy and adenoidectomy pt not sure about adenoids. History of lumbar surgery 1999 S/P AAA repair 01/13/2009 - Dr Suazo ([facility] AT [facility]) Hx of colonoscopy Hx of hernia repair lysis of adhesions, incisional hernia repair laparoscopically 01/28/2010 at [facility] - Dr Desouza Family History Other AAA (abdominal aortic aneurysm) Hypertension No family history of adverse response to anesthesia Social History Smoking Status: Former smoker Tobacco Type: Cigarettes Age Started Using Tobacco: 18; Cigarettes Per Day: Former cigarette. Quit 1998; Second Hand Exposure: No; Do You Dip or Chew Tobacco: No; Hx Alcohol Use: Yes Alcohol type: hard liquor Alcohol type Comment: 3 beers a day Hx Substance Use: No Preferred Language: Stateless Communication Ability: Effective Communication Ability Comment: pt communication effective International Recruiter Required: No Beliefs That Will Affect Care: None marital status: Current Living Situation: Spouse Current Living Situation Comment: and daughter current occupational status: employed Feels Safe at Home: Yes Assistive Devices: CPAP and Oxygen - at Night Review of Systems Review of Systems: All systems reviewed & are unremarkable except as noted in HPI & below Physical Exam Constitutional: WD/WN, vitals as above ENMT: hard of hearing Respiratory: normal respiratory effort, lungs clear to auscultation Cardiovascular: Rate/Rhythm: regular rate and regular rhythm Gastrointestinal (Abdomen): normal bowel sounds, soft, nontender, no hepatosplenomegaly Psychiatric: Orientation: alert and oriented x 3 Affect: euthymic affect Results & Data Vital Signs (Past 12 Hours) Vital Signs Temp Pulse Pulse Resp BP BP Pulse Ox 04/26/24 13:07 68 04/26/24 12:30 79 20 145/85 H 98 04/26/24 10:31 73 20 143/82 H 97 04/26/24 09:30 95 H 22 101/76 95 04/26/24 09:10 80 04/26/24 08:40 98.1 F 103 H 20 126/107 H 98 O2 Del Method O2 Flow Rate 04/26/24 13:07 04/26/24 12:30 Nasal Cannula 2 04/26/24 10:31 Nasal Cannula 2 04/26/24 09:30 Room Air 04/26/24 09:10 04/26/24 08:40 Nasal Cannula 2 Coding Level of Care Code 37451 INT INP/OBS CARE 55MIN Diagnoses Duodenal ulcer K26.9 Anemia D64.9 Anemia type: unspecified type (2) Anemia Anemia type: unspecified type Qualified Code(s): D64.9 - Anemia, unspecified
[2024-04-26 15:08] LABS: Hematocrit (blood only) 34.1 % (42.0-52.0)
[2024-04-26] MEDS: FUROSEMIDE 20 MG TAB PO SCH (17:21)
[2024-04-26] MEDS ORDERED: ENALAPRILAT 0.625 MG in SYRINGE 9.5 ML IV PRN (17:56)
[2024-04-26 19:11] LABS: Hematocrit (blood only) 36.8 % (42.0-52.0); Hemoglobin 11.8 g/dl (14.0-18.0)
[2024-04-26] MEDS: ENALAPRILAT 0.625 MG in DEXTROSE 5% 25 ML IV PRN (21:02)
[2024-04-26] MEDS: METOPROLOL TARTRATE 25 MG TAB PO SCH (21:03)
[2024-04-26 21:48] LABS: Appearance Urine Clear (Clear); Bacteria Urine Automated None Seen (None Seen); Bilirubin Urine Negative (Negative); Blood Urine Negative (Negative); Cast Urine Automated 0-2 /lpf (0-2); Color Urine Yellow; Epithelial Cell Urine Auto 0-2 /hpf (0-2); Glucose Urine UA Negative (Negative); Ketones Urine Negative (Negative); Leukocyte Esterase Urine Negative (Negative); Nitrite Urine Negative (Negative); Protein Urine 1+ (Negative); RBC Urine Automated 0-2 /hpf (0-2); Specific Gravity Urine 1.009 (1.000-1.030); Urobilinogen Urine Negative (Negative); WBC Urine Automated 0-5 /hpf (0-5)
[2024-04-26] MEDS: PANTOprazole 40 MG/10 ML SYR IV SCH (21:54)
[2024-04-26] MEDS: ALBUT/IPRATROP 3MG/0.5MG NEB 3 ML VIAL INH PRN (23:40)
[2024-04-27 06:21] LABS: BUN Creatinine Ratio 23.2 (10-20); Calcium 8.4 mg/dl (8.6-10.3); Creatinine Clr Calc Pharmacy 35.3 ml/min; Magnesium 1.9 mg/dl (1.7-2.4); Potassium 3.8 mmol/L (3.5-5.1)
[2024-04-27 06:25] LABS: Hematocrit (blood only) 33.2 % (42.0-52.0); Hemoglobin 10.8 g/dl (14.0-18.0); Mean Corpuscular Hemoglobin 32.7 pg (25.0-34.0); Mean Corpuscular Hgb Conc 32.5 g/dL (32.0-36.0); Mean Corpuscular Volume 100.6 fL (80.0-100.0); RDW Coefficient of Variation 15.7 % (11.5-14.5); RDW Standard Deviation 58.3 fL (36.4-46.3); White Blood Count 8.46 K/ul (4.8-10.8)
[2024-04-27 06:38] LABS: Platelet Estimate Normal (Normal)
--- NOTE | 2024-04-27 08:23 | Anesthesiology Consultation ---
Date of Service April 27, 2024 Assessment & Plan Chart Review Chart Review: Acceptable Risk for Surgery and Patient NOT seen in Pre Admission Testing History Surgery Operation Date: 04/27/24 17:10 Proposed Procedures p Esophagogastroduodenoscopy Dr. Rolando Marshall MD Height/Weight Height: 5 ft 6 in Weight: 89.8 kg Allergies Allergy/AdvReac Type Severity Reaction Status Date / Time RUBENS Inhibitors AdvReac Unknown DROPS Verified 05/05/23 13:26 BLOOD PRESSURE lisinopril AdvReac Unknown DROPS Verified 05/05/23 13:26 BLOOD PRESSURE Medications Home Medications Medication Instructions Recorded Confirmed Last Taken albuterol sulfate 90 mcg/actuation 2 puff inhalation Q4H PRN Wheezing 01/30/23 04/26/24 Unknown aerosol inhaler allopurinol 300 mg tablet 150 mg PO DAILY 01/30/23 04/26/24 02/22/23 atorvastatin 80 mg tablet 80 mg PO QAM 01/30/23 04/26/24 02/22/23 azelastine 137 mcg (0.1 %) nasal 1 spray intranasal AMHS Nasal 01/30/23 04/26/24 Unknown spray Congestion cholecalciferol (vitamin D3) 50 50 mcg PO DAILY 01/30/23 04/26/24 02/22/23 mcg (2,000 unit) tablet (Vitamin D3) docusate sodium 100 mg capsule 100 mg PO BID PRN Constipation 01/30/23 04/26/24 02/22/23 ezetimibe 10 mg tablet 10 mg PO QAM 01/30/23 04/26/24 02/22/23 furosemide 20 mg tablet 20 mg PO BID 01/30/23 04/26/24 02/22/23 ipratropium 0.5 mg-albuterol 3 mg 3 ml inhalation Q6H PRN Shortness 01/30/23 04/26/24 02/22/23 (2.5 mg base)/3 mL nebulization Of Breath Or Wheezing soln metoprolol tartrate 25 mg tablet 25 mg PO BID 01/30/23 04/26/24 02/22/23 potassium chloride 10 mEq 10 meq PO 3XWK 01/30/23 04/26/24 02/22/23 tablet,extended release(part/cryst) (Klor-Con M) fluticasone fur. 100 mcg-umeclid 1 inh inhalation QAM 02/15/23 04/26/24 Unknown 62.5 mcg-vilant 25 mcg inhalat.powder (Trelegy Ellipta) ascorbic acid (vitamin C) 250 mg 125 mg PO QDL 04/21/23 04/26/24 Unknown tablet fluticasone propionate 50 2 spray intranasal DAILY 04/21/23 04/26/24 Unknown mcg/actuation nasal spray,suspension apixaban 2.5 mg tablet (Eliquis) 2.5 mg PO BID 09/02/23 04/26/24 09/02/23 10:00 L.acidop,casei,lactis,rham-B.lact,allie 1 cap PO DAILY #14 caps 09/05/23 04/26/24 Unknown 625 mg (10 billion cell) capsule (Advanced Probiotic) pantoprazole 40 mg tablet,delayed 40 mg PO AMHS #60 tabs 09/15/23 04/26/24 Unknown release Active Medications Generic Name Dose Route Start Last Admin Trade Name Freq PRN Reason Stop Dose Admin Albuterol 3 ml 04/26/24 10:56 04/26/24 23:40 Albut/Ipratrop 3mg/0.5mg Neb 3 Ml Vial INH 05/26/24 10:55 3 ml Q6H PRN Administration Shortness Of Breath Or Wheezing Protocol Furosemide 20 mg 04/26/24 17:00 04/26/24 17:21 Furosemide 20 Mg Tab PO 05/26/24 16:59 20 mg [id number] MOLINA Administration Pantoprazole Sodium 40 mg in 10 mls @ 5 mls/min 04/26/24 21:00 04/26/24 21:54 Protonix IV 05/26/24 20:59 5 mls/min BID MOLINA Administration Enalaprilat 0.625 mg/ Dextrose 25.5 mls @ 100 mls/hr 04/26/24 18:12 04/26/24 21:27 IV 05/26/24 18:11 Infused Q6H PRN Infusion SBP > 160 Metoprolol Tartrate 25 mg 04/26/24 21:00 04/26/24 21:03 Metoprolol Tartrate 25 Mg Tab PO 05/26/24 20:59 25 mg BID MOLINA Administration Past Medical History Medical History MGUS (monoclonal gammopathy of unknown significance) CRF (chronic renal failure) History of cholelithiasis Chronic respiratory failure with hypoxia, on home O2 therapy GERD (gastroesophageal reflux disease) COPD (chronic obstructive pulmonary disease) exacerbation Dec 2022 - Hospitalized [facility] Dec 24-2022. Med change and effective since. Denies current issues. O2 2 L HS & PRN throughout day. PFO (patent foramen ovale) Wide-complex tachycardia CVA (cerebral vascular accident) Gastroparesis pt is not sure about this dx. History of colon polyps x1 a few yrs ago/follow up in 5 yrs. 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 Ascending thoracic aorta at the level of the right pulmonary artery 4.2 cm unchanged. 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 Descending thoracic aorta at the level of the left atrium again up to 4.[address] scan Dec 2022 - pt told everything was stable. 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 follows with Dr. Jefferson Gastric ulcer Hearing deficit BL NAILS Hx SBO History of GI bleed Stroke X 2 (LAST EVENT 05/2020) CONT. TO HAVE SLIGHT BALANCE ISSUES Sleep apnea CPAP Hx of gout PSVT (paroxysmal supraventricular tachycardia) Aortic stenosis Thoracic aortic atherosclerosis, densely calcified coronary arteries, severely calcified aortic valve, aneurysmal outpouching of the aortic arch. CKD (chronic kidney disease), stage III follows with [facility] nephrology Hyperlipidemia Hypertension Past Family History Family History Other AAA (abdominal aortic aneurysm) Hypertension No family history of adverse response to anesthesia Past Surgical History Surgical History History of tonsillectomy History of esophagogastroduodenoscopy (EGD) most recent a few months ago for a bleed, this is a follow up procedure. History of tooth extraction History of tonsillectomy and adenoidectomy pt not sure about adenoids. History of lumbar surgery 1999 S/P AAA repair 01/13/2009 - Dr Suazo ([facility]LY AT [facility]) Hx of colonoscopy Hx of hernia repair lysis of adhesions, incisional hernia repair laparoscopically 01/28/2010 at [facility] - Dr Desouza Social History Smoking Status: Former smoker tobacco type: cigarettes Smoking cigarettes per day: Former cigarette. Quit 1998 Do You Dip or Chew Tobacco: No Smoking End Date: 2008 Hx Alcohol Use: Yes Alcohol type: hard liquor alcohol intake frequency: holidays/special occasions only Alcohol Intake Frequency Comment: whiskey 2 a day Hx Substance Use: No substance use type: does not use Physical Exam Vital Signs Last Vital Signs Temp 36.4 C L 04/27/24 07:10 Pulse 66 04/27/24 07:19 Resp 18 04/27/24 07:10 BP 147/77 H 04/27/24 07:10 Pulse Ox 97 04/27/24 07:10 O2 Del Method Nasal Cannula 04/27/24 07:10 O2 Flow Rate 3 04/27/24 07:10 FiO2 32 04/26/24 23:40 Testing Laboratory Results 04/27/24 05:37 04/27/24 05:37 PT 11.1 Seconds (9.0-12.0) 04/26/24 08:43 INR 1.0 (0.9-1.1) 04/26/24 08:43 APTT 23 Seconds (21-31) 04/26/24 08:43 Urine Color Yellow 04/26/24 21:33 Urine Appearance Clear (Clear) 04/26/24 21:33 Urine pH 5.0 (4.5-7.5) 04/26/24 21:33 Ur Specific [place] 1.009 (1.000-1.030) 04/26/24 21:33 Urine Protein 1+ (Negative) H 04/26/24 21:33 Urine Glucose (UA) Negative (Negative) 04/26/24 21:33 Urine Ketones Negative (Negative) 04/26/24 21:33 Urine Nitrite Negative (Negative) 04/26/24 21:33 Ur Leukocyte Esterase Negative (Negative) 04/26/24 21:33 Urine WBC (Auto) 0-5 /hpf (0-5) 04/26/24 21:33 Urine RBC (Auto) 0-2 /hpf (0-2) 04/26/24 21:33 U Hyaline Cast (Auto) 0-2 /lpf (0-2) 04/26/24 21:33 U Epithel Cells (Auto) 0-2 /hpf (0-2) 04/26/24 21:33 Urine Bacteria (Auto) None Seen (None Seen) 04/26/24 21:33 Blood Type A Positive 04/26/24 08:48 Antibody Screen NEGATIVE 04/26/24 08:48
[2024-04-27] MEDS: UMECLIDINIUM/VILANTEROL 62.5/25MCG 7 PUFFS/INHALER INH SCH (08:28)
[2024-04-27] MEDS: FLUTICASONE FUROATE 100MCG 14 PUFFS/INHALER INH SCH (08:28)
[2024-04-27] MEDS: CHOLECALCIFEROL 25 MCG (1000 UNITS) TAB PO SCH (08:28)
[2024-04-27] MEDS: allopurinoL 300 MG TAB PO SCH (08:29)
[2024-04-27] MEDS: ATORVASTATIN 40 MG TAB PO SCH (08:29)
[2024-04-27] MEDS: POTASSIUM CHLORIDE 10 MEQ TABCR PO SCH (08:30)
[2024-04-27] MEDS ORDERED: NON-FORMULARY MEDICATION (Fluticasone-Umeclidin-Vilanter [Trelegy Ellipta] 100-62.5-25 mcg INH SCH (09:00)
--- NOTE | 2024-04-27 09:09 | History & Physical Bridge Note ---
Date of Service April 27, 2024 History & Physical Bridge Note I have examined the patient, reviewed the History & Physical and in the interval since the performance of the History & Physical I have noted the following changes of clinical significance: no changes noted. no further abdominal pain and no further dark stools since admission. hgb fell from 11.8 to 10.8. he feels sob, but this is at baseline given COPD. no chest pain. - will plan on EGD today. Supervising Physician Co-Signing Physician Notes I saw and examined this patient with our nurse practitioner and agree with her assessment and plan
[2024-04-27] MEDS: FLUTICASONE PROPIONATE NA SPR 16 GM BTL SCH (09:37)
[2024-04-27 12:54] VITALS: RESP 16
--- NOTE | 2024-04-27 13:36 | GI REPORT ---
[facility] Patient: ZULMA MERA : 1950 Sex at : Male Age: 73 Years Procedure: Upper GI endoscopy Date: 04/27/2024 Attending Physician: Juice Marshall MD Referring MD: Jessica Page MD Indications: - Recent gastrointestinal bleeding Medications: - Monitored Anesthesia Care Complications: - No immediate complications. Procedure: - Prior to the procedure, a History and Physical was performed, and patient medications and allergies were reviewed. The patient's tolerance of previous anesthesia was also reviewed. The risks and benefits of the procedure and the sedation options and risks were discussed with the patient. All questions were answered, and informed consent was obtained. [Anticoagulant Agents] [Days Prior to Procedure]. [ASA Grade]. After reviewing the risks and benefits, the patient was deemed in satisfactory condition to undergo the procedure. - The egd scope was introduced through the mouth and advanced to the second part of the duodenum. - The upper GI endoscopy was accomplished without difficulty. - The patient tolerated the procedure well. Findings: - The examined esophagus was normal. - Diffuse moderate inflammation characterized by congestion (edema) and erythema was found in the gastric antrum and in the gastric body. Biopsies were taken with a cold forceps for HPylori. Multiple endoclips were present and intact in the gastric body from prior interventions. - A previously placed biliary stents were seen in the duodenal bulb and in the second portion of the duodenum. No ulcers or bleeding seen. Impression: - Normal esophagus. - Gastritis, characterized by congestion (edema) and erythema. Biopsied. - Gastric endoclips from prior interventions. - Biliary stent in the duodenum. Recommendation: - Resume previous diet. - Patient has a contact number available for emergencies. The signs and symptoms of potential delayed complications were discussed with the patient. Return to normal activities tomorrow. Written discharge instructions were provided to the patient. Procedure Code(s): - 22424, Esophagogastroduodenoscopy, flexible, transoral; with biopsy, single or multiple Diagnosis Code(s): - K92.2, Gastrointestinal hemorrhage, unspecified - K29.70, Gastritis, unspecified, without bleeding CPT(R) - 2023 copyright [employer]. All Rights Reserved. The CPT codes, CCI edits and ICD codes generated are intended as suggestions and were generated based on input data. These codes are preliminary and upon coder operator review may be revised to meet current compliance and payer requirements. The provider is responsible for the final determination of appropriate codes, and modifiers. Juice Marshall MD This document has been electronically signed. Note Initiated:04/27/2024 Note Completed:04/27/2024 1:36 PM [id number]
--- NOTE | 2024-04-27 13:40 | Anesthesiology Progress Note ---
Date of Service April 27, 2024 Anesthesia Post Procedure Vital Signs Vital Signs: Temp Pulse Pulse Pulse Resp BP BP 04/27/24 13:31 68 16 127/74 04/27/24 12:52 36.5 C 65 16 143/78 H 04/27/24 11:20 36.5 C 62 18 123/73 04/27/24 08:20 04/27/24 07:19 66 04/27/24 07:10 36.4 C L 66 18 147/77 H 04/27/24 04:25 36.5 C 67 20 132/78 04/27/24 01:19 04/27/24 00:14 36.6 C 63 20 157/78 H 04/27/24 00:10 63 04/26/24 23:40 68 18 04/26/24 23:40 04/26/24 21:50 67 124/74 04/26/24 21:31 122/70 04/26/24 19:54 36.4 C L 64 20 186/88 H 04/26/24 17:25 190/90 H 193/99 H 04/26/24 15:59 04/26/24 15:59 36.5 C 96 H 18 207/52 H 04/26/24 14:30 72 18 178/98 H Pulse Ox O2 Del Method O2 Flow Rate FiO2 04/27/24 13:31 95 Oxymask 6 04/27/24 12:52 97 Nasal Cannula 3 04/27/24 11:20 97 Room Air 04/27/24 08:20 Nasal Cannula 3 04/27/24 07:19 04/27/24 07:10 97 Nasal Cannula 3 04/27/24 04:25 94 Nasal Cannula 3 04/27/24 01:19 Nasal Cannula 04/27/24 00:14 95 Nasal Cannula 3 04/27/24 00:10 04/26/24 23:40 95 Nasal Cannula 3 04/26/24 23:40 32 04/26/24 21:50 04/26/24 21:31 04/26/24 19:54 97 Nasal Cannula 3 04/26/24 17:25 04/26/24 15:59 Nasal Cannula 04/26/24 15:59 96 Nasal Cannula 2 04/26/24 14:30 96 Nasal Cannula 2 Pain Intensity Right Upper Abdomen: Pain Intensity: 2 Transfer of Care Handoff Completed per policy Notes Mental Status: alert / awake / arousable and participated in evaluation Patient Amnestic to Procedure: Yes Nausea / Vomiting: adequately controlled Pain: adequately controlled Airway Patency, RR, SpO2: stable & adequate BP & HR: stable & adequate Hydration State: stable & adequate Anesthetic Complications: no major complications apparent and Pt Satisfied with anesthetic care
[2024-04-27 14:16] VITALS: BP 120/68; PULSE 61; TEMP 97.5; O2SAT 96
[2024-04-27] MEDS: PROPOFOL IV EMULSION 10 MG/ML 20 ML VIAL IV ONE (14:28)
[2024-04-27] MEDS: LIDOCAINE 2% 2 ML VIAL/AMP(20MG/ML) INFIL ONE (14:28)
[2024-04-27] MEDS: BENZOCAINE/TETRACAIN/BUTAM 50 APPLN/5 GM CAN EXT ONE (14:28)
[2024-04-27] MEDS: MIDAZOLAM HCL 1 MG/ML 2ML VIAL ONE (14:28)
--- NOTE | 2024-04-27 14:28 | Discharge Summary ---
Discharge Summary Date of Service April 27, 2024 Principal Dx & Hospital Course #1 = Principal Diagnosis (1) GI bleed: (2) Acute respiratory failure with hypoxia: (3) Stage 3b chronic kidney disease (CKD): (4) Chronic anemia: (5) Shaggy aorta syndrome: Notes For Next Care Provider Medication Changes From Visit Continue taking your prior medications Admission HPI Per Admitting Provider Mr. 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 He notes that yesterday he developed melena when he was going to the bathroom and wiping with bath tissue. This has been ongoing several times daily since then and he had an episode of significant melena prior to my arrival to his room. Hemoglobin and hematocrit on admission was stable, patient did not have any active melanotic stool or hematemesis while in the hospital, seen by gastroenterology and taken for EGD during which patient was found to have evidence of chronic inflammatory changes in gastric body and duodenum. Patient already takes PPI, no additional recommendation was given by gastroenterology, patient was attended and I made sure the patient understood the findings, he will be discharged home on prior medications with follow-up as outpatient. Updated Medication List Medication Instructions Recorded Confirmed Type albuterol sulfate 90 mcg/actuation 2 puff inhalation Q4H PRN Wheezing 01/30/23 04/26/24 History aerosol inhaler allopurinol 300 mg tablet 150 mg PO DAILY 01/30/23 04/26/24 History atorvastatin 80 mg tablet 80 mg PO QAM 01/30/23 04/26/24 History azelastine 137 mcg (0.1 %) nasal 1 spray intranasal AMHS Nasal 01/30/23 04/26/24 History spray Congestion cholecalciferol (vitamin D3) 50 50 mcg PO DAILY 01/30/23 04/26/24 History mcg (2,000 unit) tablet (Vitamin D3) docusate sodium 100 mg capsule 100 mg PO BID PRN Constipation 01/30/23 04/26/24 History ezetimibe 10 mg tablet 10 mg PO QAM 01/30/23 04/26/24 History furosemide 20 mg tablet 20 mg PO BID 01/30/23 04/26/24 History ipratropium 0.5 mg-albuterol 3 mg 3 ml inhalation Q6H PRN Shortness 01/30/23 04/26/24 History (2.5 mg base)/3 mL nebulization Of Breath Or Wheezing soln metoprolol tartrate 25 mg tablet 25 mg PO BID 01/30/23 04/26/24 History potassium chloride 10 mEq 10 meq PO 3XWK 01/30/23 04/26/24 History tablet,extended release(part/cryst) (Klor-Con M) fluticasone fur. 100 mcg-umeclid 1 inh inhalation QAM 02/15/23 04/26/24 History 62.5 mcg-vilant 25 mcg inhalat.powder (Trelegy Ellipta) ascorbic acid (vitamin C) 250 mg 125 mg PO QDL 04/21/23 04/26/24 History tablet fluticasone propionate 50 2 spray intranasal DAILY 04/21/23 04/26/24 History mcg/actuation nasal spray,suspension apixaban 2.5 mg tablet (Eliquis) 2.5 mg PO BID 09/02/23 04/26/24 History L.acidop,casei,lactis,rham-B.lact,allie 1 cap PO DAILY #14 caps 09/05/23 04/26/24 Rx 625 mg (10 billion cell) capsule (Advanced Probiotic) pantoprazole 40 mg tablet,delayed 40 mg PO AMHS #60 tabs 09/15/23 04/26/24 Rx release Hospital Stay Data Consultations 04/26/24 10:22 ED Decision to Admit Stat 04/26/24 10:51 Consult Gastroenterology Routine Procedures Performed Operation Date: 04/27/24 17:10 Actual Procedures p EGD Biopsy Cytology - Juice Marshall MD Diagnostic Imagining Performed 04/26/24 11:14 CT abd pelvis wo con Stat Pending Results Patient Have Any Pending Studies at Discharge: No Discharge Instructions Given to Patient (Per Discharging Provider) Follow-up with your business analytics director Total Time Total Time Spent Total Time Spent (In Minutes): More than 35 minutes
== END 2024-04-27 16:51 | disposition home or self-care (01) | DRG 377 ==
LOC: ED 08:33 → EDINP 10:25 → 2N 13:09

== ENCOUNTER 2024-10-23 22:11 | Inpatient (IN) ==
[2024-10-23 23:01] LABS: Alanine Aminotransferase 14.0 U/L (7-52); Albumin Globulin Ratio 1.2 (0.9-2); Alkaline Phosphatase 58.0 U/L (34-104); Anion Gap 9.0 (3-11); Bilirubin,Total 0.4 mg/dl (0.2-1.0); Blood Urea Nitrogen 82.0 mg/dl (6-23); Calcium 7.5 mg/dl (8.6-10.3); Carbon Dioxide 20.0 mmol/L (21-32); Chloride 108.0 mmol/L (98-107); Creatinine Clr Calc Pharmacy 29.1 ml/min; Globulin 2.3 gm/dl (2.5-4.0); Glucose 136.0 mg/dl (70-99(Fasting)); Lipase 57.0 U/L (11-82); Potassium 4.9 mmol/L (3.5-5.1); Sodium 137.0 mmol/L (136-145); Total Protein 5.1 gm/dl (6.0-8.3)
--- NOTE | 2024-10-23 23:02 | Emergency Department Note ---
History of Present Illness General Chief complaint: Abdominal Pain Stated complaint: ABDOMINAL PAIN, BACK PAIN, HYPOTENSION History of Present Illness Maximum Pain Intensity: 10 Thsi 74 yo male who has a PMH of COPD/chronic respiratory failure on 3L O2, CVA, Aortic aneurysm s/p repair, CKD3, CHF, MGUS, & history of angioectasias in the stomach presents ER for severe left lower abdominal pain that went to his back that is now resolved after receiving fentanyl from EMS. Patient denies chest pain, dyspnea, numbness, tingling, black or blood in the stool, fever, chills, injury to the area. No urinary issues. EMS states he was slightly hypotensive in the field but now is normotensive. No recent blood transfusions. Home Medications Medication Instructions Recorded Confirmed Type albuterol sulfate 90 mcg/actuation 2 puff inhalation Q4H PRN Wheezing 01/30/23 10/24/24 History aerosol inhaler allopurinol 300 mg tablet 150 mg PO DAILY 01/30/23 10/24/24 History atorvastatin 80 mg tablet 80 mg PO QAM 01/30/23 10/24/24 History azelastine 137 mcg (0.1 %) nasal 1 spray intranasal AMHS Nasal 01/30/23 10/24/24 History spray Congestion cholecalciferol (vitamin D3) 50 50 mcg PO DAILY 01/30/23 10/24/24 History mcg (2,000 unit) tablet (Vitamin D3) docusate sodium 100 mg capsule 100 mg PO BID 01/30/23 10/24/24 History furosemide 20 mg tablet 40 mg PO QAM 01/30/23 10/24/24 History ipratropium 0.5 mg-albuterol 3 mg 3 ml inhalation Q6H PRN Shortness 01/30/23 10/24/24 History (2.5 mg base)/3 mL nebulization Of Breath Or Wheezing soln metoprolol tartrate 25 mg tablet 25 mg PO BID 01/30/23 10/24/24 History potassium chloride 10 mEq 10 meq PO 3XWK 01/30/23 10/24/24 History tablet,extended release(part/cryst) (Klor-Con M) fluticasone fur. 100 mcg-umeclid 1 inh inhalation QAM 02/15/23 10/24/24 History 62.5 mcg-vilant 25 mcg inhalat.powder (Trelegy Ellipta) ascorbic acid (vitamin C) 250 mg 125 mg PO QDL 04/21/23 10/24/24 History tablet fluticasone propionate 50 2 spray intranasal DAILY PRN 04/21/23 10/24/24 History mcg/actuation nasal Allergy Symptoms spray,suspension apixaban 2.5 mg tablet (Eliquis) 2.5 mg PO BID 09/02/23 10/24/24 History pantoprazole 40 mg tablet,delayed 40 mg PO AMHS #60 tabs 09/15/23 10/24/24 Rx release doxycycline hyclate 100 mg capsule 100 mg PO BID PRN RESCUE KIT FOR 10/24/24 10/24/24 History COPD ferrous sulfate 325 mg (65 mg 325 mg PO QDL 10/24/24 10/24/24 History iron) tablet (Feosol) guaifenesin 600 mg tablet, 600 mg PO Q12H PRN Congestion 10/24/24 10/24/24 History extended release 12 hr prednisone 20 mg tablet 40 mg PO DAILY PRN RESCUE KIT FOR 10/24/24 10/24/24 History COPD Allergies Allergy/AdvReac Type Severity Reaction Status Date / Time RUBENS Inhibitors AdvReac Intermediate HYPERKALEMIA---DROPS Verified 10/24/24 00:28 BLOOD PRESSURE lisinopril AdvReac Intermediate HYPERKALEMIA--DROPS Verified 10/24/24 00:28 BLOOD PRESSURE Past Med/Surg History Problem List (Updated 10/24/24 @ 03:00 by Ofelia Linder PA-C) Anemia (Acute) Acute GI bleeding (Acute) Elevated troponin I level (Acute) Anemia (Acute) Acute upper gastrointestinal bleeding (Acute) Duodenal ulcer Pulmonary edema (Acute) 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 (Acute) SOB (shortness of breath) (Acute) Anemia (Acute) GI bleed (Acute) Gout (Chronic) History of GI bleed Sinus pause Labile blood pressure Acute respiratory failure with hypoxia Bronchitis Acute on chronic kidney failure COPD exacerbation (Acute) Abnormal CXR Stage 3b chronic kidney disease (CKD) Anemia due to chronic kidney disease CKD (chronic kidney disease) (Acute) Chronic anemia (Acute) Acute kidney injury superimposed on chronic kidney disease Melena Acute GI bleeding (Acute) COPD with exacerbation (Acute) Acute upper GI bleed (Acute) Symptomatic anemia (Acute) Anemia requiring transfusions (Acute) Recurrent gastrointestinal hemorrhage Shaggy aorta syndrome SOB (shortness of breath) (Acute) Bronchitis (Acute) COPD exacerbation (Acute) Wheezing (Acute) Anemia (Acute) Elevated troponin (Acute) Acute and chronic respiratory failure Goals of care, counseling/discussion Medical History MGUS (monoclonal gammopathy of unknown significance) CRF (chronic renal failure) History of cholelithiasis Chronic respiratory failure with hypoxia, on home O2 therapy GERD (gastroesophageal reflux disease) COPD (chronic obstructive pulmonary disease) exacerbation Dec 2022 - Hospitalized [facility] Dec 24-2022. Med change and effective since. Denies current issues. O2 2 L HS & PRN throughout day. PFO (patent foramen ovale) Wide-complex tachycardia CVA (cerebral vascular accident) Gastroparesis pt is not sure about this dx. History of colon polyps x1 a few yrs ago/follow up in 5 yrs. 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 Ascending thoracic aorta at the level of the right pulmonary artery 4.2 cm unchanged. 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 Descending thoracic aorta at the level of the left atrium again up to 4.[address] scan Dec 2022 - pt told everything was stable. 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 follows with Dr. Jefferson Gastric ulcer Hearing deficit BL NAILS Hx SBO History of GI bleed Stroke X 2 (LAST EVENT 05/2020) CONT. TO HAVE SLIGHT BALANCE ISSUES Sleep apnea CPAP Hx of gout PSVT (paroxysmal supraventricular tachycardia) Aortic stenosis Thoracic aortic atherosclerosis, densely calcified coronary arteries, severely calcified aortic valve, aneurysmal outpouching of the aortic arch. CKD (chronic kidney disease), stage III follows with [facility] nephrology Hyperlipidemia Hypertension Surgical History History of tonsillectomy History of esophagogastroduodenoscopy (EGD) most recent a few months ago for a bleed, this is a follow up procedure. History of tooth extraction History of tonsillectomy and adenoidectomy pt not sure about adenoids. History of lumbar surgery 1999 S/P AAA repair 01/13/2009 - Dr Suazo ([facility]) Hx of colonoscopy Hx of hernia repair lysis of adhesions, incisional hernia repair laparoscopically 01/28/2010 at [facility] - Dr Desouza Family History Other AAA (abdominal aortic aneurysm) Hypertension No family history of adverse response to anesthesia Social History Smoking Status: Unknown if ever smoked Tobacco Type: Cigarettes Age Started Using Tobacco: 18; Cigarettes Per Day: Former cigarette. Quit 1998; Second Hand Exposure: No; Do You Dip or Chew Tobacco: No; Hx Alcohol Use: Yes Alcohol type: hard liquor Alcohol type Comment: 3 beers a day Hx Substance Use: No Preferred Language: Irish Communication Ability: Effective Communication Ability Comment: pt communication effective B2B Account Executive Required: No Beliefs That Will Affect Care: None marital status: Current Living Situation: Spouse Current Living Situation Comment: and daughter current occupational status: employed Feels Safe at Home: Yes Assistive Devices: Oxygen - Continuous and Walker Review of Systems A total of 10 systems reviewed and were otherwise negative Physical Exam Vital Signs Vital Signs - 24 hr 10/23/24 22:03 10/23/24 22:03 10/23/24 22:20 Temperature 36.8 C 36.8 C Temperature Source Oral Oral Pulse Rate 86 88 Pulse Rate [Finger] 85 Pulse Rhythm [Finger] Respiratory Rate 20 16 Respiratory Effort / Characteristics Respiratory Depth Blood Pressure 116/73 Blood Pressure [Right Arm] 116/73 Blood Pressure Mean 87 Blood Pressure Mean [Right Arm] 87 Blood Pressure Position Pulse Oximetry 89 L 89 L Oxygen Delivery Method Room Air Room Air Oxygen Flow Rate Sepsis Recent Fever Within 48 Hours No Sepsis New/Unexplained Change in Mental Status No Sepsis Action Taken by Nursing No Action Required 10/23/24 22:23 10/24/24 00:03 10/24/24 00:58 Temperature Temperature Source Pulse Rate 85 Pulse Rate [Finger] 81 80 Pulse Rhythm [Finger] Regular Respiratory Rate 20 20 16 Respiratory Effort / Characteristics Labored Non-Labored Respiratory Depth Normal Blood Pressure Blood Pressure [Right Arm] 95/61 L 114/84 Blood Pressure Mean Blood Pressure Mean [Right Arm] 72 94 Blood Pressure Position Pulse Oximetry 94 94 98 Oxygen Delivery Method Nasal Cannula Nasal Cannula Nasal Cannula Oxygen Flow Rate 2 2 2 Sepsis Recent Fever Within 48 Hours Sepsis New/Unexplained Change in Mental Status Sepsis Action Taken by Nursing 10/24/24 01:43 10/24/24 02:00 10/24/24 02:12 Temperature 36.6 C 36.6 C Temperature Source Oral Oral Pulse Rate 85 82 82 Pulse Rate [Finger] Pulse Rhythm [Finger] Respiratory Rate 18 20 Respiratory Effort / Characteristics Respiratory Depth Blood Pressure 85/54 L 123/79 Blood Pressure [Right Arm] Blood Pressure Mean 64 93 Blood Pressure Mean [Right Arm] Blood Pressure Position Lying Lying Pulse Oximetry 95 96 Oxygen Delivery Method Oxygen Flow Rate 4 Sepsis Recent Fever Within 48 Hours Sepsis New/Unexplained Change in Mental Status Sepsis Action Taken by Nursing 10/24/24 02:15 Temperature 36.7 C Temperature Source Oral Pulse Rate 81 Pulse Rate [Finger] Pulse Rhythm [Finger] Respiratory Rate 24 Respiratory Effort / Characteristics Respiratory Depth Blood Pressure 124/73 Blood Pressure [Right Arm] Blood Pressure Mean 90 Blood Pressure Mean [Right Arm] Blood Pressure Position Pulse Oximetry 96 Oxygen Delivery Method Oxygen Flow Rate 4 Sepsis Recent Fever Within 48 Hours Sepsis New/Unexplained Change in Mental Status Sepsis Action Taken by Nursing VITALS: Vitals are noted on the nurse's note and reviewed by myself. Vital signs stable. GENERAL: Pleasant gentleman hard of hearing, in no acute distress, nondiaphoretic, well-developed well-nourished. SKIN: The skin was without rashes, erythema, or bruising. There is no tenting of the skin. Capillary reflex less than 2 seconds. HEAD: Normocephalic atraumatic. EARS: External auditory canals clear EYES: Pupils equal round and reactive to light and accommodation. Conjunctivae without injection, sclerae without icterus. Extraocular movements intact. NOSE: Patent, no discharge. MOUTH: Mucous membranes moist. Pharynx without erythema or exudate. Uvula midline. Airway patent. Tongue does not deviate. NECK: Supple without nuchal rigidity. No lymphadenopathy. No thyromegaly. Cervical spine is nontender. No JVD. HEART: Regular rate and rhythm LUNGS: Clear to auscultation bilaterally without wheezes, rales or rhonchi. No retractions or accessory muscle use. ABDOMEN: Positive bowel sounds x 4. Normal tympanic percussion. Soft, nontender, without masses or organomegaly. Ramirez sign negative. No guarding or rebound tenderness. No CVA tenderness Rectal exam: No fissures or tears, dark brown stool, guaiac positive. Nurse present as a industrial staff nurse MUSCULOSKELETAL: No muscle atrophy, erythema, noted. NEURO: Patient was alert and oriented to person place and time. Normal sensation to light and sharp touch. No focal neurological deficits. Course Administered Medications Pantoprazole Sodium 40 mg/ (Dextrose) 100 mls @ 20 mls/hr IV Q5H MOLINA Stop: 11/23/24 02:44 Last Admin: 10/24/24 02:45 Dose: 8 mg/hr, 20 mls/hr Documented By: ROBIN Discontinued Medications Albuterol (Albut/Ipratrop 3mg/0.5mg Neb 3 Ml Vial) 3 ml NEB NOW STA; Protocol Stop: 10/24/24 00:36 Last Admin: 10/24/24 00:44 Dose: 3 ml Documented By: YESENIA Fentanyl Citrate (Fentanyl Citrate Pf 100 Mcg/2 Ml Vial) 25 mcg IV NOW ONE Stop: 10/24/24 00:29 Last Admin: 10/24/24 01:15 Dose: 25 mcg Documented By: YESENIA Sodium Chloride (Nss) 500 mls @ 999 mls/hr IV .Q31M ONE Stop: 10/23/24 22:57 Last Infusion: 10/24/24 00:06 Dose: Infused Documented By: Admin: 10/23/24 23:14 Dose: 999 mls/hr Documented By: YESENIA Acetaminophen (Ofirmev) 1,000 mg in 100 mls @ 400 mls/hr IV NOW STA Stop: 10/24/24 00:28 Last Infusion: 10/24/24 01:04 Dose: Infused Documented By: Admin: 10/24/24 00:41 Dose: 400 mls/hr Documented By: YESENIA Sodium Chloride (Nss) 500 mls @ 999 mls/hr IV .Q31M ONE Stop: 10/24/24 00:44 Last Infusion: 10/24/24 02:26 Dose: Infused Documented By: Admin: 10/24/24 00:54 Dose: 999 mls/hr Documented By: YESENIA Pantoprazole Sodium 80 mg/ (Dextrose) 120 mls @ 480 mls/hr IV ONE STA Stop: 10/24/24 00:42 Last Infusion: 10/24/24 01:16 Dose: Infused Documented By: Admin: 10/24/24 00:54 Dose: 480 mls/hr Documented By: YESENIA Famotidine (Pepcid 20mg Iv Push) 20 mg in 5 mls @ 2.5 mls/min IV NOW STA Stop: 10/24/24 00:29 Last Admin: 10/24/24 00:40 Dose: 2.5 mls/min Documented By: YESENIA Prothrombin Complex Concent ( (Human) 2,000 units/ Syringe) 80 mls @ 10 mls/min IV NOW STA; Protocol Stop: 10/24/24 01:33 Last Admin: 10/24/24 01:41 Dose: 10 mls/min Documented By: ROBIN Tranexamic Acid (Tranexamic Acid / 0.7% Nacl) 1,000 mg in 100 mls @ 600 mls/hr IV NOW STA Stop: 10/24/24 01:35 Last Infusion: 10/24/24 02:26 Dose: Infused Documented By: Admin: 10/24/24 01:48 Dose: 600 mls/hr Documented By: GLENN Calcium Gluconate () 1,000 mg in 60 mls @ 240 mls/hr IV NOW STA Stop: 10/24/24 01:48 Last Infusion: 10/24/24 02:26 Dose: Infused Documented By: Admin: 10/24/24 01:48 Dose: 240 mls/hr Documented By: GLENN Sodium Chloride (Nss) 1,000 mls @ 999 mls/hr IV .Q1H1M ONE Stop: 10/24/24 02:42 Last Infusion: 10/24/24 02:51 Dose: Infused Documented By: Admin: 10/24/24 01:49 Dose: 999 mls/hr Documented By: GLENN Ioversol (Optiray 320 125ml) 125 ml IV ONCE ONE Stop: 10/24/24 02:11 Last Admin: 10/24/24 02:10 Dose: 118 ml Documented By: HILARY Miscellaneous (Stat Iv/Im) 1 each N/A NOW STA Stop: 10/24/24 01:27 Last Admin: 10/24/24 01:50 Dose: Not Given Documented By: GLENN Ondansetron HCl (Ondansetron Inj 2 Mg/Ml 2 Ml Vial) Confirm Administered Dose 4 mg .ROUTE .STK-MED ONE Stop: 10/24/24 01:52 Last Admin: 10/24/24 01:53 Dose: 4 mg Documented By: AN Critical Care Time Critical Care Time: Yes Total Critical Care Time: 75 I have personally spent 75 minutes of critical care time in the direct management of this patient. This includes bedside care, interpretation of diagnostic studies, and testing, discussion with consultants, patient, and family members, and other required patient management activities. This 75 minutes is in excess of all separately billable procedures. Medical Decision Making Medical Records Attestation: I reviewed the patient's medical records. Home Medications Current Medication List: was personally reviewed by me Laboratory Data Attestation: I reviewed the patient's lab results. 10/24/24 01:23 10/23/24 22:19 Lab Results 10/23/24 10/23/24 10/23/24 Range/Units 22:19 22:23 23:41 WBC 12.23 H (4.8-10.8) K/ul RBC 2.75 L (4.70-6.10) M/uL Hgb 9.0 L (14.0-18.0) g/dl POC Hgb 8.5 L (14.0-18.0) g/dl Hct 29.0 L (42.0-52.0) % POC Hct 25 L (42-52) % MCV 105.5 H (80.0-100.0) fL MCH 32.7 (25.0-34.0) pg MCHC 31.0 L (32.0-36.0) g/dL RDW Std Deviation 57.8 H (36.4-46.3) fL RDW Coeff of Chaka 15.2 H (11.5-14.5) % Plt Count (130-400) K/uL MPV Not Reportable Immature Gran % (Auto) 2.2 % Neut % (Auto) 74.3 % Lymph % (Auto) 8.7 % [place] % (Auto) 10.5 % Eos % (Auto) 3.8 % Baso % (Auto) 0.5 % Neut # (Auto) 9.08 H (1.40-6.50) K/uL Lymph # (Auto) 1.07 L (1.20-3.40) K/uL [place] # (Auto) 1.29 H (0.11-0.59) K/uL Eos # (Auto) 0.46 (0.00-0.50) K/uL Baso # (Auto) 0.06 (0.00-0.20) K/uL Immature Gran # (Auto) 0.27 H (0.01-0.20) K/uL Platelet Estimate Normal (Normal) Plt Count ,Citrate (130-400) K/uL POC Sodium 137 (135-144) mmol/L Sodium 137 (136-145) mmol/L POC Potassium 4.9 (3.3-5.0) mmol/L Potassium 4.9 (3.5-5.1) mmol/L POC Chloride 109 (101-112) mmol/L Chloride 108 H (98-107) mmol/L Carbon Dioxide 20 L (21-32) mmol/L POC Total CO2 21 L (24-31) mmol/L Anion Gap 9 (3-11) POC Anion Gap 13.0 L (16-25) mmol/L POC BUN 93 H (7-18) mg/dl BUN 82 H (6-23) mg/dl Creatinine 2.40 H (0.6-1.4) mg/dl POC Creatinine 2.5 H (0.6-1.3) mg/dl Est Cr Clr Drug Dosing 29.1 ml/min eGFR 27.28 BUN/Creatinine Ratio 34.2 H (10-20) Glucose 136 H (70-99(Fasting)) mg/dl POC Glucose (other) 131 H (70-99) mg/dl Calcium 7.5 L (8.6-10.3) mg/dl POC Ioniz Calcium Maria G 1.08 L (1.12-1.32) mmol/l Total Bilirubin 0.4 (0.2-1.0) mg/dl AST 14 (13-39) U/L ALT 14 (7-52) U/L Alkaline Phosphatase 58 (34-104) U/L Troponin I High Sens 40.7 H (0-20) pg/ml Total Protein 5.1 L (6.0-8.3) gm/dl Albumin 2.8 L (3.4-5.0) gm/dl Globulin 2.3 L (2.5-4.0) gm/dl Albumin/Globulin Ratio 1.2 (0.9-2) Lipase 57 (11-82) U/L Urine Color Yellow Urine Appearance Clear (Clear) Urine pH 5.0 (4.5-7.5) Ur Specific [place] 1.018 (1.000-1.030) Urine Protein 3+ H (Negative) Urine Glucose (UA) Negative (Negative) Urine Ketones Trace H (Negative) Urine Blood Negative (Negative) Urine Nitrite Negative (Negative) Urine Bilirubin Negative (Negative) Urine Urobilinogen Negative (Negative) Ur Leukocyte Esterase 2+ H (Negative) Urine WBC (Auto) 6-10 H (0-5) /hpf Urine RBC (Auto) 0-2 (0-2) /hpf U Hyaline Cast (Auto) 3-5 H (0-2) /lpf U Epithel Cells (Auto) 0-2 (0-2) /hpf Urine Bacteria (Auto) None Seen (None Seen) Urine Comment Blood Type Antibody Screen Crossmatch 10/24/24 10/24/24 Range/Units 00:06 01:23 WBC (4.8-10.8) K/ul RBC (4.70-6.10) M/uL Hgb 7.6 L (14.0-18.0) g/dl POC Hgb (14.0-18.0) g/dl Hct 24.4 L (42.0-52.0) % POC Hct (42-52) % MCV (80.0-100.0) fL MCH (25.0-34.0) pg MCHC (32.0-36.0) g/dL RDW Std Deviation (36.4-46.3) fL RDW Coeff of Chaka (11.5-14.5) % Plt Count (130-400) K/uL MPV Immature Gran % (Auto) % Neut % (Auto) % Lymph % (Auto) % [place] % (Auto) % Eos % (Auto) % Baso % (Auto) % Neut # (Auto) (1.40-6.50) K/uL Lymph # (Auto) (1.20-3.40) K/uL [place] # (Auto) (0.11-0.59) K/uL Eos # (Auto) (0.00-0.50) K/uL Baso # (Auto) (0.00-0.20) K/uL Immature Gran # (Auto) (0.01-0.20) K/uL Platelet Estimate (Normal) Plt Count ,Citrate 129 L (130-400) K/uL POC Sodium (135-144) mmol/L Sodium (136-145) mmol/L POC Potassium (3.3-5.0) mmol/L Potassium (3.5-5.1) mmol/L POC Chloride (101-112) mmol/L Chloride (98-107) mmol/L Carbon Dioxide (21-32) mmol/L POC Total CO2 (24-31) mmol/L Anion Gap (3-11) POC Anion Gap (16-25) mmol/L POC BUN (7-18) mg/dl BUN (6-23) mg/dl Creatinine (0.6-1.4) mg/dl POC Creatinine (0.6-1.3) mg/dl Est Cr Clr Drug Dosing ml/min eGFR BUN/Creatinine Ratio (10-20) Glucose (70-99(Fasting)) mg/dl POC Glucose (other) (70-99) mg/dl Calcium (8.6-10.3) mg/dl POC Ioniz Calcium Maria G (1.12-1.32) mmol/l Total Bilirubin (0.2-1.0) mg/dl AST (13-39) U/L ALT (7-52) U/L Alkaline Phosphatase (34-104) U/L Troponin I High Sens 56.6 H* D (0-20) pg/ml Total Protein (6.0-8.3) gm/dl Albumin (3.4-5.0) gm/dl Globulin (2.5-4.0) gm/dl Albumin/Globulin Ratio (0.9-2) Lipase (11-82) U/L Urine Color Urine Appearance (Clear) Urine pH (4.5-7.5) Ur Specific [place] (1.000-1.030) Urine Protein (Negative) Urine Glucose (UA) (Negative) Urine Ketones (Negative) Urine Blood (Negative) Urine Nitrite (Negative) Urine Bilirubin (Negative) Urine Urobilinogen (Negative) Ur Leukocyte Esterase (Negative) Urine WBC (Auto) (0-5) /hpf Urine RBC (Auto) (0-2) /hpf U Hyaline Cast (Auto) (0-2) /lpf U Epithel Cells (Auto) (0-2) /hpf Urine Bacteria (Auto) (None Seen) Urine Comment Blood Type A Positive Antibody Screen NEGATIVE Crossmatch See Detail Imaging Data Attestation: I personally reviewed and interpreted this imaging study as follows: Radiologist's Impression: Abdomen/Pelvis CT 10/23/24 22:24 Exam(s): CT ABDOMEN + PELVIS Without Contrast EXAM: CT Abdomen and Pelvis Without Intravenous Contrast CLINICAL HISTORY: Reason for exam: severe llq pain. TECHNIQUE: Axial computed tomography images of the abdomen and pelvis without intravenous contrast. CTDI is 28.04 mGy and DLP is 1297.8 mGy-cm. Automated exposure control was utilized for the study. A dose lowering technique was utilized adhering to the principles of ALARA. COMPARISON: None FINDINGS: Lung bases: Bibasilar atelectasis. ABDOMEN: Liver: Unremarkable. Gallbladder and bile ducts: Unremarkable. No calcified stones. No ductal dilation. Pancreas: Unremarkable. No ductal dilation. Spleen: Unremarkable. No splenomegaly. Adrenals: Unremarkable. No mass. Kidneys and ureters: Unremarkable. No hydronephrosis or obstructing ureteral stone. Stomach and bowel: Clips seen along the stomach. Hyperdense material within the stomach could represent ingested material versus blood products. Blood products within the gastric wall are not excluded. Evaluation is somewhat limited without IV contrast. No free intraperitoneal blood identified. Diverticulosis without evidence of diverticulitis. No obstruction. PELVIS: Appendix: Normal appendix. Bladder: Unremarkable. No stones. Reproductive: Borderline size of the prostate. ABDOMEN and PELVIS: Intraperitoneal space: Unremarkable. No free air. No significant fluid collection. Bones/joints: Right convex curvature of the spine. Degenerative changes of the spine. Postsurgical changes at L5-S1. Grade 1 anterolisthesis of L5 on S1. No acute fracture. No dislocation. Soft tissues: Mild bilateral gynecomastia. Bilateral fat containing inguinal hernias. Ventral hernia repair. Small fat containing umbilical and ventral hernias. Vasculature: Atherosclerotic changes of the vasculature. No abdominal aortic aneurysm. Lymph nodes: Unremarkable. No enlarged lymph nodes. IMPRESSION: Clips seen along the stomach. Hyperdense material within the stomach could represent ingested material versus blood products. Blood products within the gastric wall are not excluded. Evaluation is somewhat limited without IV contrast. No free intraperitoneal blood identified. Electronically signed by: London Nielsen M.D. 10/24/24 00:[address] 10/23/24 22:27 Exam(s): CT CHEST Without Contrast EXAM: CT Chest Without Intravenous Contrast CLINICAL HISTORY: Reason for exam: severe mid abd pain. hx AA. TECHNIQUE: Axial computed tomography images of the chest without intravenous contrast. Automated exposure control was utilized for the study. A dose lowering technique was utilized adhering to the principles of ALARA. COMPARISON: No relevant prior studies available. FINDINGS: Lungs: Linear atelectasis left upper lobe. No mass. Pleural space: Unremarkable. No significant effusion. No pneumothorax. Heart: Aortic valve calcification. Coronary artery calcifications. No cardiomegaly. No significant pericardial effusion. Bones/joints: Unremarkable. No acute fracture. Soft tissues: Unremarkable. Vasculature: 6.8 cm thoracic aortic aneurysm at the aortic arch. Lymph nodes: Unremarkable. No enlarged lymph nodes. Other findings: Dense calcification. IMPRESSION: No acute findings in the chest. 6.8 cm thoracic aortic aneurysm Electronically signed by: Lester Reinoso MD 10/24/24 00:06 AM Abdomen/Pelvis CTA 10/24/24 01:46 EXAM: CT angio abdomen pelvis w con CLINICAL HISTORY: GI bleed, ? active bleeding TECHNIQUE: Contrast enhanced thin slice CT angiography scan of the abdominal aorta was performed with intravenous contrast. Angiographic images were processed, 3D MIP images were acquired for interpretation. Contiguous axial images were obtained. Reformatted coronal and sagittal images were also reviewed. If IV contrast material had not been administered, the likelihood of detecting abnormalities relevant to the patients condition would have been substantially decreased. CT scan was performed according to ALARA (as low as reasonable achievable). COMPARISON: apr 10:38:01 REMOVABLE PROSTHODONTIST. FINDINGS: Diffuse atherosclerotic calcification is noted involving aorta. 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 Abdominal aorta is normal in course, calibre and opacification. Origin of coeliac artery, superior mesenteric artery , bilateral main renal and lumbar arteries shows diffuse atherosclerotic calcification with mild to moderate stenosis. No evidence of end organ ischemia seen. Bilateral common, external and internal iliac arteries shows diffuse atherosclerotic calcification without significant stenosis. About 11 x 9 mm sized hypodense lesion is noted involving segment IV of liver - appear simple cyst. Multiple small uncomplicated sigmoid colonic diverticulosis Solid abdominal organs including liver, spleen, pancreas and bilateral kidneys reveal no significant abnormality. Bowel loops are grossly unremarkable. No evidence of ascites. IMPRESSION: 1. Diffuse atherosclerotic calcification is noted involving aorta and its all major branches-stable. 2. 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 3. Small hepatic cyst.-stable. 4. Uncomplicated colonic diverticulosis.-stable. 5. No obvious extravasation of contrast/active bleed. Electronically signed by Aiden Licona 10-24-2024 03:09 AM MDM Narrative Prior records/ancillary studies reviewed. Triage Nursing notes reviewed. Additional history obtained from EMS. The patient's history was concerning for abdominal pain. Differential diagnosis: Etiologies such as appendicitis, diverticulitis, PUD, biliary pathology, UTI, pancreatitis, obstruction, mesenteric ischemia, aortic pathology, infections, inflammatory bowel disease, renal colic, as well as others were entertained. Physical examination findings: As above. ER treatment provided: An order was placed for continuous cardiac monitoring. The monitor shows a rate of 60-100 with a sinus rhythm per my Independent interpretation. Limited Point of Care FAST Ultrasound performed by me: Indication: Rule out abdominal aortic aneurysm rupture Findings: Limited cardiac ultrasonography via subxiphoid and parasternal long view showed cardiac wall motion activity, no pericardial fluid, no tamponade. Limited chest ultrasound revealed bilateral lung sliding. Limited abdominal ultrasound revealed no free fluid within Maki's pouch, splenorenal space, or the pouch of Del. Impression: Negative FAST exam. Protonix and Pepcid were ordered for possible GI bleed Calcium was given I was called to the room emergently by the nurse and patient was actively vomiting bright red blood. A second line was placed and Kcentra was ordered along with TXA and 2 units of packed RBCs. Patient was then transferred over to A1. On reassessment was stable after being resuscitated as above. Blood pressure improved. Diagnostics interpreted by me: ECG: Ordered for weakness EKG: Normal sinus, normal intervals, no acute ST-T wave changes. Impression normal sinus rhythm independently interpreted by myself The labs Independently Interpreted by myself revealed worsening anemia. Patient was consented to blood if warranted. Imaging studies: Imaging was reviewed and read by radiology Consultation: Consultation was placed with the pharmacist, Jason, I did review the Kcentra order request. Pharmacy sent this down immediately. A consultation was placed with the hospitalist. The case was discussed and diagnostics were reviewed. The patient was evaluated in the ER for further treatment. A consultation was placed with GI, Dr. Marshall and the case was discussed. He recommends fully resuscitating the patient and admitting to the unit. He states that he still unstable to call back and he will come in for possible EGD. The unit was consulted and the case was discussed. The highway landscape architect came down and did evaluate the patient. Exam and history seem consistent with acute upper GI bleeding. Patient came in for left lower abdominal pain. Bedside fast was negative for free fluid as patient has a history of aneurysms. CAT scans were reviewed and then l the patient had an episode of bright red vomiting that was copious in nature. Patient became hypotensive and tachycardic. My attending is made immediately aware of the acute change in my patient. He was fully resuscitated as above. GI and the highway landscape architect were consulted. Patient was given 2 units of blood with Kcentra for reversal of his Eliquis and TXA along with IV fluids. 3 lines were placed. He was reassessed multiple times. Patient is agreeable treatment plan of admission. Patient was admitted to the unit. Per the highway landscape architect request, CTA of the abdomen pelvis was ordered. This was reviewed and no active bleeding. By the evaluation outlined above emergent etiologies such as appendicitis, diverticulitis, biliary pathology, UTI, pancreatitis, obstruction, mesenteric ischemia, aortic pathology, infections, inflammatory bowel disease, renal colic, as well as others were deemed relatively unlikely. The pt informed about the findings as listed above. All questions were answered and pleased with the treatment. The chart was completed utilizing [employer] voice recognition software. Grammatical errors, random word insertions, pronoun errors, and incomplete sentences are an occassional consequence of this system due to software limitations, ambient noise, and hardware issues. Any formal questions or concerns about the content, text, or information contained within the body of this dictation should be directly addressed to the physician teacher assistant for clarification. Impression & Plan Acute GI bleeding, Anemia Discharge Plan Visit Data Chief Complaint: Abdominal Pain Stated Complaint: ABDOMINAL PAIN, BACK PAIN, HYPOTENSION ED Provider: Lester Fortune ED Midlevel Provider: Ofelia Linder Discharge Problem: Acute GI bleeding, Anemia Patient Disposition: Admitted As Inpatient Condition: Critical Discharge Instructions Interventions: ED Discharge Assessment Last Done: 10/24/24 03:01
[2024-10-23] MEDS: SODIUM CHLORIDE 0.9% 500 ML IV ONE (23:14)
[2024-10-23 23:36] LABS: Hematocrit (blood only) 29.0 % (42.0-52.0); Hemoglobin 9.0 g/dl (14.0-18.0); Mean Corpuscular Hemoglobin 32.7 pg (25.0-34.0); Mean Corpuscular Volume 105.5 fL (80.0-100.0); RDW Standard Deviation 57.8 fL (36.4-46.3); Red Blood Count 2.75 M/uL (4.70-6.10); White Blood Count 12.23 K/ul (4.8-10.8)
[2024-10-23 23:37] LABS: Immature Granulocytes # (auto) 0.27 K/uL (0.01-0.20); Immature Granulocytes % (auto) 2.2 %
--- NOTE | 2024-10-24 00:07 | CT Scan Report ---
Exam(s): CT CHEST Without Contrast EXAM: CT Chest Without Intravenous Contrast CLINICAL HISTORY: Reason for exam: severe mid abd pain. hx AA. TECHNIQUE: Axial computed tomography images of the chest without intravenous contrast. Automated exposure control was utilized for the study. A dose lowering technique was utilized adhering to the principles of ALARA. COMPARISON: No relevant prior studies available. FINDINGS: Lungs: Linear atelectasis left upper lobe. No mass. Pleural space: Unremarkable. No significant effusion. No pneumothorax. Heart: Aortic valve calcification. Coronary artery calcifications. No cardiomegaly. No significant pericardial effusion. Bones/joints: Unremarkable. No acute fracture. Soft tissues: Unremarkable. Vasculature: 6.8 cm thoracic aortic aneurysm at the aortic arch. Lymph nodes: Unremarkable. No enlarged lymph nodes. Other findings: Dense calcification. IMPRESSION: No acute findings in the chest. 6.8 cm thoracic aortic aneurysm Electronically signed by: Lester Reinoso MD 10/24/24 00:06 AM
[2024-10-24 00:12] LABS: Appearance Urine Clear (Clear); Bacteria Urine Automated None Seen (None Seen); Epithelial Cell Urine Auto 0-2 /hpf (0-2); Glucose Urine UA Negative (Negative); RBC Urine Automated 0-2 /hpf (0-2)
--- NOTE | 2024-10-24 00:30 | Emergency Department Note ---
ED Visit Note I was consulted by the Advanced Practice Provider. I personally made or approved the management plan for the patient. I performed a substantive portion of the visit. This includes the aspects of: MDM. .
--- NOTE | 2024-10-24 00:37 | CT Scan Report ---
Exam(s): CT ABDOMEN + PELVIS Without Contrast EXAM: CT Abdomen and Pelvis Without Intravenous Contrast CLINICAL HISTORY: Reason for exam: severe llq pain. TECHNIQUE: Axial computed tomography images of the abdomen and pelvis without intravenous contrast. CTDI is 28.04 mGy and DLP is 1297.8 mGy-cm. Automated exposure control was utilized for the study. A dose lowering technique was utilized adhering to the principles of ALARA. COMPARISON: None FINDINGS: Lung bases: Bibasilar atelectasis. ABDOMEN: Liver: Unremarkable. Gallbladder and bile ducts: Unremarkable. No calcified stones. No ductal dilation. Pancreas: Unremarkable. No ductal dilation. Spleen: Unremarkable. No splenomegaly. Adrenals: Unremarkable. No mass. Kidneys and ureters: Unremarkable. No hydronephrosis or obstructing ureteral stone. Stomach and bowel: Clips seen along the stomach. Hyperdense material within the stomach could represent ingested material versus blood products. Blood products within the gastric wall are not excluded. Evaluation is somewhat limited without IV contrast. No free intraperitoneal blood identified. Diverticulosis without evidence of diverticulitis. No obstruction. PELVIS: Appendix: Normal appendix. Bladder: Unremarkable. No stones. Reproductive: Borderline size of the prostate. ABDOMEN and PELVIS: Intraperitoneal space: Unremarkable. No free air. No significant fluid collection. Bones/joints: Right convex curvature of the spine. Degenerative changes of the spine. Postsurgical changes at L5-S1. Grade 1 anterolisthesis of L5 on S1. No acute fracture. No dislocation. Soft tissues: Mild bilateral gynecomastia. Bilateral fat containing inguinal hernias. Ventral hernia repair. Small fat containing umbilical and ventral hernias. Vasculature: Atherosclerotic changes of the vasculature. No abdominal aortic aneurysm. Lymph nodes: Unremarkable. No enlarged lymph nodes. IMPRESSION: Clips seen along the stomach. Hyperdense material within the stomach could represent ingested material versus blood products. Blood products within the gastric wall are not excluded. Evaluation is somewhat limited without IV contrast. No free intraperitoneal blood identified. Electronically signed by: London Nielsen M.D. 10/24/24 00:36 AM
[2024-10-24] MEDS: FAMOTIDINE 20MG IV PUSH 20 MG/5 ML SYR IV STA (00:40)
[2024-10-24] MEDS: ACETAMINOPHEN 1,000 MG/100 ML VIAL IV STA (00:41)
[2024-10-24] MEDS: ALBUT/IPRATROP 3MG/0.5MG NEB 3 ML VIAL NEB STA (00:44)
[2024-10-24] MEDS: SODIUM CHLORIDE 0.9% 500 ML IV ONE (00:54)
[2024-10-24] MEDS ORDERED: SODIUM CHLORIDE 0.9% 100 ML IV PRN (01:26)
[2024-10-24] MEDS: PROTHROMBIN COMP CONC- KCENTRA 2,000 UNITS in SYRINGE 0 ML IV STA (01:41)
[2024-10-24] MEDS: TRANEXAMIC ACID / 0.7% NACL 1,000 MG/100 ML BAG IV STA (01:48)
[2024-10-24] MEDS: CALCIUM GLUCONATE 1,000 MG/60 ML BAG IV STA ×2 (01:48→08:38)
[2024-10-24] MEDS: SODIUM CHLORIDE 0.9% 1,000 ML IV ONE (01:49)
[2024-10-24] MEDS: STAT IV/IM STA (01:50)
[2024-10-24] MEDS: ONDANSETRON INJ 2 MG/ML 2 ML VIAL ONE (01:53)
[2024-10-24 01:57] LABS: Hematocrit (blood only) 24.4 % (42.0-52.0); Hemoglobin 7.6 g/dl (14.0-18.0)
[2024-10-24] MEDS: OPTIRAY 320 125ml IV ONE (02:10)
[2024-10-24] MEDS: PANTOprazole 40 MG in DEXTROSE 5% MINI-B 100 ML IV SCH (02:45)
[2024-10-24] MEDS ORDERED: ALBUTEROL HFA 8 GM INHALER INH PRN (03:09)
--- NOTE | 2024-10-24 03:09 | CT Scan Report ---
EXAM: CT angio abdomen pelvis w con CLINICAL HISTORY: GI bleed, ? active bleeding TECHNIQUE: Contrast enhanced thin slice CT angiography scan of the abdominal aorta was performed with intravenous contrast. Angiographic images were processed, 3D MIP images were acquired for interpretation. Contiguous axial images were obtained. Reformatted coronal and sagittal images were also reviewed. If IV contrast material had not been administered, the likelihood of detecting abnormalities relevant to the patients condition would have been substantially decreased. CT scan was performed according to ALARA (as low as reasonable achievable). 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 FINDINGS: Diffuse atherosclerotic calcification is noted involving aorta. 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 Abdominal aorta is normal in course, calibre and opacification. Origin of coeliac artery, superior mesenteric artery , bilateral main renal and lumbar arteries shows diffuse atherosclerotic calcification with mild to moderate stenosis. No evidence of end organ ischemia seen. Bilateral common, external and internal iliac arteries shows diffuse atherosclerotic calcification without significant stenosis. About 11 x 9 mm sized hypodense lesion is noted involving segment IV of liver - appear simple cyst. Multiple small uncomplicated sigmoid colonic diverticulosis Solid abdominal organs including liver, spleen, pancreas and bilateral kidneys reveal no significant abnormality. Bowel loops are grossly unremarkable. No evidence of ascites. IMPRESSION: 1. Diffuse atherosclerotic calcification is noted involving aorta and its all major branches-stable. 2. 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 3. Small hepatic cyst.-stable. 4. Uncomplicated colonic diverticulosis.-stable. 5. No obvious extravasation of contrast/active bleed. Electronically signed by Aiden Licona 10-24-2024 03:09 AM
--- NOTE | 2024-10-24 03:14 | Critical Care Consultation ---
Date of Consultation October 24, 2024 Assessment & Plan (1) Acute GI bleeding: (2) Elevated troponin I level: (3) Acute kidney injury superimposed on chronic kidney disease: (4) Elevated troponin: Plan Reason Critically Ill: 74 YOM presents with abdominal pain had active hemate mesis in the ER with subsequent hypotension and decrease in HGB. To ICU for continued resuscitation and hemodynamic support/monitoring Neuro - No acute need CAM ICU: NEGATIVE - Attempt to maintain normal sleep wake cycle and frequent orientation to hopefully avoid ICU delirium Cardiac - Shock, Acute blood loss anemia, Afib on Eliquis. Hx: AAA with repair and new aneurysm that is deemed inoperable, HTN, HLD - Patient with acute blood loss anemia in likely setting of UGIB with hematemesis - [place] 14 - CTA following hematemesis without obvious extravasation - Transfuse 2-3 units of PRBC pending hemodynamics- currently receiving 2 - check fibrinogen - replete calcium - He has received TXA and PCC - Currently in NSR- in regards to his afib- hold Eliquis, hold metoprolol - restart metoprolol once hemodynamics proven stable - Protonix infusion - Octreotide infusion Respiratory - no acute needs, Hx: COPD home oxygen use - no an exacerbation - Continue JERO, LABA/LAMA, GI - See above - NPO - GI consultation appreciated- updated Dr. Marshall and currently will plan for EGD at 0600 unless status becomes unstable - If continues with hematemesis will place NGT - provide antiemetics as needed RENAL/LYTES - MAGDALENO on CKD III - Continue with crystalloid for 1-2 L following contrast - replete electrolytes - Swan to gravity ENDO - No acute needs - ICU hyperglycemic protocol - goal <180mg/DL HEME - acute blood loss anemia - See above - Transfuse for acute hemorrhage, HGB <8.0, or symptomatic - Send INR/PTT/Fibrinogen now ID - NO concern at this time for infectious etiology LINES/IV ACCESS - Continue use of these lines DVT PROPHYLAXIS - SCDS, hold chemoprophylaxis until hemostasis is ensured and hemodynamics are stable DISPO: ICU until hemodynamic and bleeding risk proven stable I have personally spent 50 minutes of critical care time in the direct management of this patient. This is a life/limb threatening event. This includes time spent evaluating patient, direct bedside care, chart review, placing orders, interpretation of diagnostic studies, discussion with consultants, patient, and family members, as well as other required patient management activities. This time is exclusive of all separately billable procedures, and teaching time and separate from and in addition to any other critical care service time. Thank you for allowing us to participate in the care of this patient. Please refer to my attending physician's documentation for any further recommendations. Supervising Physician Co-Signing Physician Notes Patient separately seen and examined with JSOE D. Agree with note as above. Continue nicardipine to decrease systolic blood pressures to goal of less than 160. Follow-up with GI regarding diet recommendations. Plan currently is to continue with conservative measures and if he were to decline significantly then transition to comfort measures. This is in line with the patient's wishes and patient's family. Otherwise replace electrolytes as needed. Continue ICS/LABA/LAMA inhaler for history of COPD and continue pantoprazole. 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 Patient comes to the ER today for complaints of lower abdominal pain and cramping that radiated to his lower back. He reports this was preceded by myalgias and fatigue. He reports having normal bowel movements today and no dark stools. He was transported in from home via EMS with noting hypotension in the field and was normotensive on arrival to the ER. Intial labs revealed HGB of 9.0 (baseline 9-11), Platelet count of 129, BN of 82 (nml 40s), ANNUAL GIVING DIRECTOR 2.4(nml 1.6-1.9). He had CT abd/pelvis completed without contrast initially noting previous clips, hyperdense material in stomach - ingested material vs. blood. He was given 80 mg IV protonix and famotidine and being prepared for admission. During this time the patient had a bout of hematemesis and noted decrease in his blood pressure to 80s/40s. Repeat HGB was noted at 7.6. GI was notified by EMD JOSE D. ICU was contacted following hematemesis and hypotension. Requested CTA of the abd/pelvis, as well as obtain large bore IV. Patient was evaluated shortly after in the ER in room A1. Blood has been started and blood pressure has increased to > 100 systolic. Patient is awake conversant, not tachycardic, warm with 2+ strong distal pulses. CTA obtained. He will come to the ICU for continued resuscitation and monitoring. GI Attending has asked to notify hi when patient arrives to the ICU. Allergies Allergy/AdvReac Type Severity Reaction Status Date / Time RUBENS Inhibitors AdvReac Intermediate HYPERKALEMIA---DROPS Verified 10/24/24 00:28 BLOOD PRESSURE lisinopril AdvReac Intermediate HYPERKALEMIA--DROPS Verified 10/24/24 00:28 BLOOD PRESSURE Home Medications Medication Instructions Recorded Confirmed Type albuterol sulfate 90 mcg/actuation 2 puff inhalation Q4H PRN Wheezing 01/30/23 10/24/24 History aerosol inhaler allopurinol 300 mg tablet 150 mg PO DAILY 01/30/23 10/24/24 History atorvastatin 80 mg tablet 80 mg PO QAM 01/30/23 10/24/24 History azelastine 137 mcg (0.1 %) nasal 1 spray intranasal AMHS Nasal 01/30/23 10/24/24 History spray Congestion cholecalciferol (vitamin D3) 50 50 mcg PO DAILY 01/30/23 10/24/24 History mcg (2,000 unit) tablet (Vitamin D3) docusate sodium 100 mg capsule 100 mg PO BID 01/30/23 10/24/24 History furosemide 20 mg tablet 40 mg PO QAM 01/30/23 10/24/24 History ipratropium 0.5 mg-albuterol 3 mg 3 ml inhalation Q6H PRN Shortness 01/30/23 10/24/24 History (2.5 mg base)/3 mL nebulization Of Breath Or Wheezing soln metoprolol tartrate 25 mg tablet 25 mg PO BID 01/30/23 10/24/24 History potassium chloride 10 mEq 10 meq PO 3XWK 01/30/23 10/24/24 History tablet,extended release(part/cryst) (Klor-Con M) fluticasone fur. 100 mcg-umeclid 1 inh inhalation QAM 02/15/23 10/24/24 History 62.5 mcg-vilant 25 mcg inhalat.powder (Trelegy Ellipta) ascorbic acid (vitamin C) 250 mg 125 mg PO QDL 04/21/23 10/24/24 History tablet fluticasone propionate 50 2 spray intranasal DAILY PRN 04/21/23 10/24/24 History mcg/actuation nasal Allergy Symptoms spray,suspension apixaban 2.5 mg tablet (Eliquis) 2.5 mg PO BID 09/02/23 10/24/24 History pantoprazole 40 mg tablet,delayed 40 mg PO AMHS #60 tabs 09/15/23 10/24/24 Rx release doxycycline hyclate 100 mg capsule 100 mg PO BID PRN RESCUE KIT FOR 10/24/24 10/24/24 History COPD ferrous sulfate 325 mg (65 mg 325 mg PO QDL 10/24/24 10/24/24 History iron) tablet (Feosol) guaifenesin 600 mg tablet, 600 mg PO Q12H PRN Congestion 10/24/24 10/24/24 History extended release 12 hr prednisone 20 mg tablet 40 mg PO DAILY PRN RESCUE KIT FOR 10/24/24 10/24/24 History COPD Patient History Medical History MGUS (monoclonal gammopathy of unknown significance) CRF (chronic renal failure) History of cholelithiasis Chronic respiratory failure with hypoxia, on home O2 therapy GERD (gastroesophageal reflux disease) COPD (chronic obstructive pulmonary disease) exacerbation Dec 2022 - Hospitalized [facility] Dec 24-2022. Med change and effective since. Denies current issues. O2 2 L HS & PRN throughout day. PFO (patent foramen ovale) Wide-complex tachycardia CVA (cerebral vascular accident) Gastroparesis pt is not sure about this dx. History of colon polyps x1 a few yrs ago/follow up in 5 yrs. 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 Ascending thoracic aorta at the level of the right pulmonary artery 4.2 cm unchanged. 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 Descending thoracic aorta at the level of the left atrium again up to 4.[address] scan Dec 2022 - pt told everything was stable. 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 follows with Dr. Jefferson Gastric ulcer Hearing deficit BL NAILS Hx SBO History of GI bleed Stroke X 2 (LAST EVENT 05/2020) CONT. TO HAVE SLIGHT BALANCE ISSUES Sleep apnea CPAP Hx of gout PSVT (paroxysmal supraventricular tachycardia) Aortic stenosis Thoracic aortic atherosclerosis, densely calcified coronary arteries, severely calcified aortic valve, aneurysmal outpouching of the aortic arch. CKD (chronic kidney disease), stage III follows with [facility] nephrology Hyperlipidemia Hypertension Surgical History History of tonsillectomy History of esophagogastroduodenoscopy (EGD) most recent a few months ago for a bleed, this is a follow up procedure. History of tooth extraction History of tonsillectomy and adenoidectomy pt not sure about adenoids. History of lumbar surgery 1999 S/P AAA repair 01/13/2009 - Dr Suazo ([place] [facility]AR[facility] AT [facility]) Hx of colonoscopy Hx of hernia repair lysis of adhesions, incisional hernia repair laparoscopically 01/28/2010 at [facility] - Dr Desouza Family History Other AAA (abdominal aortic aneurysm) Hypertension No family history of adverse response to anesthesia Social History Smoking Status: Unknown if ever smoked Tobacco Type: Cigarettes Age Started Using Tobacco: 18; Cigarettes Per Day: Former cigarette. Quit 1998; Second Hand Exposure: No; Do You Dip or Chew Tobacco: No; Hx Alcohol Use: Yes Alcohol type: hard liquor Alcohol type Comment: 3 beers a day Hx Substance Use: No Preferred Language: [place] Communication Ability: Effective Communication Ability Comment: pt communication effective Buffer Machine Required: No Beliefs That Will Affect Care: None marital status: Current Living Situation: Spouse Current Living Situation Comment: and daughter current occupational status: employed Other Information That Helps Us Care for You: No Feels Safe at Home: Yes Safety Concerns: Feels Safe At This Time Assistive Devices: Glasses Review of Systems Review of Systems: REVIEW OF SYSTEMS: Constitutional: No fever, sweats or chills Eyes: (+) hard of hearing No diplopia, no worsening or blurred vision ENT: normal hearing, no trouble swallowing Respiratory: (+) chronic dyspnea and oxygen use Cardiovascular: No chest pain, tightness or palpitations Abdomen: (+) pain, nausea, vomiting, loss of appetite, No diarrhea or constipation Musculoskeletal: No joint pain, calf pain, swelling Neurologic: No weakness, numbness/tingling, or balance problems Physical Exam Physical Exam: PHYSICAL EXAM: General: awake, alert, Head: Normocephalic, atraumatic ENT: PERRLA, EOMI, no pharyngeal exudate, mucous membranes dry, dried blood following emesis Neuro: AAO x 3, speech clear and appropriate, strength intact bilaterally 5/5, sensation intact and equal all extremities. Chest: equal rise and fall of the chest, no accessory muscle use, no heaves or thrills, Clear to auscultation, on room air, Cardiac: Regular rate and rhythm, telemetry reviewed- NSR no ectopy, skin warm dry, cap refill <3 seconds, peripheral pulses +2 no JVD, no edema GI: NABS x 4 quadrants, soft, tender to palpation lower quads, no rebound, guarding or tenderness : Spontaneously voiding Psych: Normal mood and affect Skin: no rash or erythema Results & Data Results & Data Vital Signs (Past 12 Hours) Vital Signs Temp Pulse Pulse Resp BP BP Pulse Ox 10/24/24 02:30 78 24 131/68 98 10/24/24 02:15 36.7 C 81 24 124/73 96 10/24/24 02:12 82 10/24/24 02:00 36.6 C 82 20 123/79 96 10/24/24 01:43 36.6 C 85 18 85/54 L 95 10/24/24 00:58 80 16 114/84 98 10/24/24 00:03 81 20 95/61 L 94 10/23/24 22:23 85 20 94 10/23/24 22:20 88 10/23/24 22:03 36.8 C 85 16 116/73 89 L 10/23/24 22:03 36.8 C 86 20 116/73 89 L O2 Del Method O2 Flow Rate 10/24/24 02:30 Nasal Cannula 4 10/24/24 02:15 4 10/24/24 02:12 10/24/24 02:00 10/24/24 01:43 4 10/24/24 00:58 Nasal Cannula 2 10/24/24 00:03 Nasal Cannula 2 10/23/24 22:23 Nasal Cannula 2 10/23/24 22:20 10/23/24 22:03 Room Air 10/23/24 22:03 Room Air Laboratory Results Abnormal lab results 10/23/24 10/23/24 10/23/24 Range/Units 22:19 22:23 23:41 WBC 12.23 H (4.8-10.8) K/ul RBC 2.75 L (4.70-6.10) M/uL Hgb 9.0 L (14.0-18.0) g/dl POC Hgb 8.5 L (14.0-18.0) g/dl Hct 29.0 L (42.0-52.0) % POC Hct 25 L (42-52) % MCV 105.5 H (80.0-100.0) fL MCHC 31.0 L (32.0-36.0) g/dL RDW Std Deviation 57.8 H (36.4-46.3) fL RDW Coeff of Chaka 15.2 H (11.5-14.5) % Neut # (Auto) 9.08 H (1.40-6.50) K/uL Lymph # (Auto) 1.07 L (1.20-3.40) K/uL [place] # (Auto) 1.29 H (0.11-0.59) K/uL Immature Gran # (Auto) 0.27 H (0.01-0.20) K/uL Plt Count ,Citrate (130-400) K/uL Chloride 108 H (98-107) mmol/L Carbon Dioxide 20 L (21-32) mmol/L POC Total CO2 21 L (24-31) mmol/L POC Anion Gap 13.0 L (16-25) mmol/L POC BUN 93 H (7-18) mg/dl BUN 82 H (6-23) mg/dl Creatinine 2.40 H (0.6-1.4) mg/dl POC Creatinine 2.5 H (0.6-1.3) mg/dl BUN/Creatinine Ratio 34.2 H (10-20) Glucose 136 H (70-99(Fasting)) mg/dl POC Glucose (other) 131 H (70-99) mg/dl Calcium 7.5 L (8.6-10.3) mg/dl POC Ioniz Calcium Maria G 1.08 L (1.12-1.32) mmol/l Troponin I High Sens 40.7 H (0-20) pg/ml Total Protein 5.1 L (6.0-8.3) gm/dl Albumin 2.8 L (3.4-5.0) gm/dl Globulin 2.3 L (2.5-4.0) gm/dl Urine Protein 3+ H (Negative) Urine Ketones Trace H (Negative) Ur Leukocyte Esterase 2+ H (Negative) Urine WBC (Auto) 6-10 H (0-5) /hpf U Hyaline Cast (Auto) 3-5 H (0-2) /lpf Crossmatch 10/24/24 10/24/24 Range/Units 00:06 01:23 WBC (4.8-10.8) K/ul RBC (4.70-6.10) M/uL Hgb 7.6 L (14.0-18.0) g/dl POC Hgb (14.0-18.0) g/dl Hct 24.4 L (42.0-52.0) % POC Hct (42-52) % MCV (80.0-100.0) fL MCHC (32.0-36.0) g/dL RDW Std Deviation (36.4-46.3) fL RDW Coeff of Chaka (11.5-14.5) % Neut # (Auto) (1.40-6.50) K/uL Lymph # (Auto) (1.20-3.40) K/uL [place] # (Auto) (0.11-0.59) K/uL Immature Gran # (Auto) (0.01-0.20) K/uL Plt Count ,Citrate 129 L (130-400) K/uL Chloride (98-107) mmol/L Carbon Dioxide (21-32) mmol/L POC Total CO2 (24-31) mmol/L POC Anion Gap (16-25) mmol/L POC BUN (7-18) mg/dl BUN (6-23) mg/dl Creatinine (0.6-1.4) mg/dl POC Creatinine (0.6-1.3) mg/dl BUN/Creatinine Ratio (10-20) Glucose (70-99(Fasting)) mg/dl POC Glucose (other) (70-99) mg/dl Calcium (8.6-10.3) mg/dl POC Ioniz Calcium Maria G (1.12-1.32) mmol/l Troponin I High Sens 56.6 H* D (0-20) pg/ml Total Protein (6.0-8.3) gm/dl Albumin (3.4-5.0) gm/dl Globulin (2.5-4.0) gm/dl Urine Protein (Negative) Urine Ketones (Negative) Ur Leukocyte Esterase (Negative) Urine WBC (Auto) (0-5) /hpf U Hyaline Cast (Auto) (0-2) /lpf Crossmatch See Detail Diagnostic Findings Abdomen/Pelvis CT 10/23/24 22:24 Exam(s): CT ABDOMEN + PELVIS Without Contrast EXAM: CT Abdomen and Pelvis Without Intravenous Contrast CLINICAL HISTORY: Reason for exam: severe llq pain. TECHNIQUE: Axial computed tomography images of the abdomen and pelvis without intravenous contrast. CTDI is 28.04 mGy and DLP is 1297.8 mGy-cm. Automated exposure control was utilized for the study. A dose lowering technique was utilized adhering to the principles of ALARA. COMPARISON: None FINDINGS: Lung bases: Bibasilar atelectasis. ABDOMEN: Liver: Unremarkable. Gallbladder and bile ducts: Unremarkable. No calcified stones. No ductal dilation. Pancreas: Unremarkable. No ductal dilation. Spleen: Unremarkable. No splenomegaly. Adrenals: Unremarkable. No mass. Kidneys and ureters: Unremarkable. No hydronephrosis or obstructing ureteral stone. Stomach and bowel: Clips seen along the stomach. Hyperdense material within the stomach could represent ingested material versus blood products. Blood products within the gastric wall are not excluded. Evaluation is somewhat limited without IV contrast. No free intraperitoneal blood identified. Diverticulosis without evidence of diverticulitis. No obstruction. PELVIS: Appendix: Normal appendix. Bladder: Unremarkable. No stones. Reproductive: Borderline size of the prostate. ABDOMEN and PELVIS: Intraperitoneal space: Unremarkable. No free air. No significant fluid collection. Bones/joints: Right convex curvature of the spine. Degenerative changes of the spine. Postsurgical changes at L5-S1. Grade 1 anterolisthesis of L5 on S1. No acute fracture. No dislocation. Soft tissues: Mild bilateral gynecomastia. Bilateral fat containing inguinal hernias. Ventral hernia repair. Small fat containing umbilical and ventral hernias. Vasculature: Atherosclerotic changes of the vasculature. No abdominal aortic aneurysm. Lymph nodes: Unremarkable. No enlarged lymph nodes. IMPRESSION: Clips seen along the stomach. Hyperdense material within the stomach could represent ingested material versus blood products. Blood products within the gastric wall are not excluded. Evaluation is somewhat limited without IV contrast. No free intraperitoneal blood identified. Electronically signed by: London Nielsen M.D. 10/24/24 00:[address] 10/23/24 22:27 Exam(s): CT CHEST Without Contrast EXAM: CT Chest Without Intravenous Contrast CLINICAL HISTORY: Reason for exam: severe mid abd pain. hx AA. TECHNIQUE: Axial computed tomography images of the chest without intravenous contrast. Automated exposure control was utilized for the study. A dose lowering technique was utilized adhering to the principles of ALARA. COMPARISON: No relevant prior studies available. FINDINGS: Lungs: Linear atelectasis left upper lobe. No mass. Pleural space: Unremarkable. No significant effusion. No pneumothorax. Heart: Aortic valve calcification. Coronary artery calcifications. No cardiomegaly. No significant pericardial effusion. Bones/joints: Unremarkable. No acute fracture. Soft tissues: Unremarkable. Vasculature: 6.8 cm thoracic aortic aneurysm at the aortic arch. Lymph nodes: Unremarkable. No enlarged lymph nodes. Other findings: Dense calcification. IMPRESSION: No acute findings in the chest. 6.8 cm thoracic aortic aneurysm Electronically signed by: Lester Reinoso MD 10/24/24 00:06 AM Medications Administered Home Medications albuterol sulfate 90 mcg/actuation aerosol inhaler 2 puff inhalation Q4H PRN Wheezing 01/30/23 [History Confirmed 10/24/24] allopurinol 300 mg tablet 150 mg PO DAILY 01/30/23 [History Confirmed 10/24/24] atorvastatin 80 mg tablet 80 mg PO QAM 01/30/23 [History Confirmed 10/24/24] azelastine 137 mcg (0.1 %) nasal spray 1 spray intranasal AMHS Nasal Congestion 01/30/23 [History Confirmed 10/24/24] cholecalciferol (vitamin D3) 50 mcg (2,000 unit) tablet (Vitamin D3) 50 mcg PO DAILY 01/30/23 [History Confirmed 10/24/24] docusate sodium 100 mg capsule 100 mg PO BID 01/30/23 [History Confirmed 10/24/24] furosemide 20 mg tablet 40 mg PO QAM 01/30/23 [History Confirmed 10/24/24] ipratropium 0.5 mg-albuterol 3 mg (2.5 mg base)/3 mL nebulization soln 3 ml inhalation Q6H PRN Shortness Of Breath Or Wheezing 01/30/23 [History Confirmed 10/24/24] metoprolol tartrate 25 mg tablet 25 mg PO BID 01/30/23 [History Confirmed 10/24/24] potassium chloride 10 mEq tablet,extended release(part/cryst) (Klor-Con M) 10 meq PO 3XWK 01/30/23 [History Confirmed 10/24/24] fluticasone fur. 100 mcg-umeclid 62.5 mcg-vilant 25 mcg inhalat.powder (Trelegy Ellipta) 1 inh inhalation QAM 02/15/23 [History Confirmed 10/24/24] ascorbic acid (vitamin C) 250 mg tablet 125 mg PO QDL 04/21/23 [History Confirmed 10/24/24] fluticasone propionate 50 mcg/actuation nasal spray,suspension 2 spray intranasal DAILY PRN Allergy Symptoms 04/21/23 [History Confirmed 10/24/24] apixaban 2.5 mg tablet (Eliquis) 2.5 mg PO BID 09/02/23 [History Confirmed 10/24/24] pantoprazole 40 mg tablet,delayed release 40 mg PO AMHS #60 tabs 09/15/23 [Rx Confirmed 10/24/24] doxycycline hyclate 100 mg capsule 100 mg PO BID PRN RESCUE KIT FOR COPD 10/24/24 [History Confirmed 10/24/24] ferrous sulfate 325 mg (65 mg iron) tablet (Feosol) 325 mg PO QDL 10/24/24 [History Confirmed 10/24/24] guaifenesin 600 mg tablet, extended release 12 hr 600 mg PO Q12H PRN Congestion 10/24/24 [History Confirmed 10/24/24] prednisone 20 mg tablet 40 mg PO DAILY PRN RESCUE KIT FOR COPD 10/24/24 [History Confirmed 10/24/24] Active Medications Sodium Chloride (Nss) 100 mls @ 15 mls/hr IV .Q6H40M PRN PRN Reason: For Transfusion Duration Stop: 10/24/24 09:27 Pantoprazole Sodium 40 mg/ (Dextrose) 100 mls @ 20 mls/hr IV Q5H MOLINA Stop: 11/23/24 02:44 Last Admin: 10/24/24 02:45 Dose: 8 mg/hr, 20 mls/hr ECG Additional Comments: Normal sinus rhythm Normal ECG When compared with ECG [id number] 08:41, Sinus rhythmhas replacedAtrial fibrillation Coding Level of Care Code 96472 CRITICAL CARE 1ST 30-74M Diagnoses Acute GI bleeding K92.2 Elevated troponin I level R79.89 Acute kidney injury superimposed on chronic kidney disease N17.9; N18.9 Elevated troponin R79.89
[2024-10-24] MEDS ORDERED: STAT IV/IM STA (03:35)
[2024-10-24] MEDS: SODIUM CHLORIDE 0.9% 1,000 ML IV SCH (04:04)
[2024-10-24] MEDS: CALCIUM GLUCONATE 1,000 MG/60 ML BAG IV SCH (04:13)
[2024-10-24] MEDS: OCTREOTIDE ACETATE 50 MCG in SYRINGE 9.5 ML IV ONE (04:14)
[2024-10-24] MEDS: OCTREOTIDE ACETATE 500 MCG in SODIUM CHLORIDE 0.9% 100 ML IV SCH (04:17)
[2024-10-24] MEDS: METOCLOPRAMIDE HCL INJ 5 MG/ML 2 ML VIAL IV ONE (04:18)
--- NOTE | 2024-10-24 04:23 | History & Physical Report ---
Date of Service October 24, 2024 Assessment & Plan (1) Acute GI bleeding: Plan: 74-year-old male with past medical history significant for chronic hypoxic respiratory failure on home oxygen, COPD, obstructive sleep apnea on CPAP, dyslipidemia, hyperparathyroidism, idiopathic chronic gout, aneurysm of subclavian artery, hypertension, stenosis of left renal artery, abdominal aortic aneurysm, thoracic aorta atherosclerosis, severe aortic stenosis, shaggy aorta syndrome, chronic diastolic CHF, history of supraventricular tachycardia, chronic atrial fibrillation, CKD stage IV, status post lumbar disc excision, iron deficiency anemia due to chronic blood loss, monoclonal paraproteinemia, history of shingles, history of CVA, history of biliary stent insertion, history of retinal artery occlusion who lives at home with his and sometimes uses walker to ambulate comes because of abdominal pain and back pain and in the ER he had large amount of hematemesis. Patient states since yesterday afternoon noticed abdominal pain and also back pain which prompted him to come to the ER. Currently abdominal pain is resolved after his vomiting. Denies any chest pain. No shortness of breath. Has chronic cough. Chronic shortness of breath from his COPD.Has runny nose. Denies any headache. No fevers. Micturating okay. Hemodynamics okay currently. Patient has history of GI bleeds in the past. He underwent EGD EGD/EUS small bowel enteroscopy and ERCP and Axios placement. 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 In December 2022 he was admitted [facility] for active upper GI bleeding angiectasia. At that time his hemoglobin was 5.9 received 4 units of PRBCs. 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 His Plavix was stopped. Currently is on Eliquis 2.5 mg twice daily. Octreotide injections were recommended. Acute GI bleeding Large amount of hematemesis in the ER and became hypotensive and tachycardic. Hemoglobin was 9.8 on presentation repeat was 7.6 As patient is on Eliquis, Kcentra was given along with TXA and IV fluids. 2 units of PRBCs were ordered. GI and critical care were not notified and appreciate inputs CTA abdomen pelvis was done and there is no active bleeding seen. Currently on Protonix drip and Sandostatin drip Hemodynamics nicolle currently Plan for EGD soon Close monitoring in the ICU Hypocalcemia Calcium 7.5 Received calcium gluconate Chronic respiratory home oxygen History of COPD Continue home inhalers Nebs as needed Obstructive sleep apnea On CPAP nightly MUGS or early stage Waldenstrm's Anemia Follows with heme-onc MAGDALENO on CKD stage IV Baseline creatinine 2-2.1 Presented with 2.4 To avoid nephrotoxic agents Follow repeat labs Elevated troponin Initial troponin 40 and repeat is 56 EKG nicolle Patient currently asymptomatic Mostly demand ischemia Will follow serial enzymes Abdominal aortic aneurysm s/p repair in December 2008 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 If patient experience recurrent TIA/CVA symptoms despite reduced dose Eliquis to consider resumption of antiplatelet therapy. History of asymptomatic ventricular tachycardia and supraventricular tachycardia On metoprolol to restart when able to History of CVAs multiple Currently Eliquis on hold for GI bleed Restart statin when able to Hyperlipidemia Restart statin when able to Hypertension Restart diuretics and metoprolol when able to In the past amlodipine resulted in fluid retention. Isosorbide resulted in significant headaches. Gout Holding allopurinol for now DVT prophylaxis SCDs Disposition ICU Level 1 full code Addendum: Patient s/p EGD: - Normal esophagus. - Clotted blood in the gastric fundus and in the gastric body. - Old blood in the first and second portion of the duodenum. 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 - No specimens collected. Because of concern for aorto-enetric fistula GI recommended emergency transfer to tertiary care.Critical acre called vascular surgery at [place] Dr.Anthony Rolle. Because of comorbid conditions conservative treatment recommended and advised for BP control and palliative care and was not accepted in Transfer. Dr.Anthony Rolle is going to discuss with who did initial repair in 2008 for any more recommendations and will call us back as per critical care. Admission and Anticipated Discharge Date Admission Date: October 24, 2024 History of Present Illness Chief Complaint: Acute GI bleed Primary Care Provider: Jairo Kingston MD 74-year-old male with past medical history significant for chronic hypoxic respiratory failure on home oxygen, COPD, obstructive sleep apnea on CPAP, dyslipidemia, hyperparathyroidism, idiopathic chronic gout, aneurysm of subclavian artery, hypertension, stenosis of left renal artery, abdominal aortic aneurysm, thoracic aorta atherosclerosis, severe aortic stenosis, shaggy aorta syndrome, chronic diastolic CHF, history of supraventricular tachycardia, chronic atrial fibrillation, CKD stage IV, status post lumbar disc excision, iron deficiency anemia due to chronic blood loss, monoclonal paraproteinemia, history of shingles, history of CVA, history of biliary stent insertion, history of retinal artery occlusion who lives at home with his and sometimes uses walker to ambulate comes because of abdominal pain and back pain and in the ER he had large amount of hematemesis. Patient states since yesterday afternoon noticed abdominal pain and also back pain which prompted him to come to the ER. Currently abdominal pain is resolved after his vomiting. Denies any chest pain. No shortness of breath. Has chronic cough. Chronic shortness of breath from his COPD.Has runny nose. Denies any headache. No fevers. Micturating okay. Hemodynamics okay currently. Patient has history of GI bleeds in the past. He underwent EGD EGD/EUS small bowel enteroscopy and ERCP and Axios placement. 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 In December 2022 he was admitted [facility] for active upper GI bleeding angiectasia. At that time his hemoglobin was 5.9 received 4 units of PRBCs. 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 His Plavix was stopped. Currently is on Eliquis 2.5 mg twice daily. Octreotide injections were recommended. Past medical history. As mentioned above Past surgical history. Open repair of abdominal aortic aneurysm in 2008. Colonoscopy with biopsy. EGD. EGD with endoscopic ultrasound. ERCP. Lumbar disc excision. Lysis of adhesions and incisional hernia repair laparoscopically. Tonsillectomy adenoidectomy. Social history. . Quit smoking 2008. Smoked 1 pack a day or 35 years. Alcohol 3 standard drinks of alcohol per week as per epic. No drug use. Family history. Father had AAA. Brother has heart disease. Brother has hypertension. Mother was on dialysis. Sister has pacemaker. Allergies Allergy/AdvReac Type Severity Reaction Status Date / Time RUBENS Inhibitors AdvReac Intermediate HYPERKALEMIA---DROPS Verified 10/24/24 00:28 BLOOD PRESSURE lisinopril AdvReac Intermediate HYPERKALEMIA--DROPS Verified 10/24/24 00:28 BLOOD PRESSURE Home Medications Medication Instructions Recorded Confirmed Type albuterol sulfate 90 mcg/actuation 2 puff inhalation Q4H PRN Wheezing 01/30/23 10/24/24 History aerosol inhaler allopurinol 300 mg tablet 150 mg PO DAILY 01/30/23 10/24/24 History atorvastatin 80 mg tablet 80 mg PO QAM 01/30/23 10/24/24 History azelastine 137 mcg (0.1 %) nasal 1 spray intranasal AMHS Nasal 01/30/23 10/24/24 History spray Congestion cholecalciferol (vitamin D3) 50 50 mcg PO DAILY 01/30/23 10/24/24 History mcg (2,000 unit) tablet (Vitamin D3) docusate sodium 100 mg capsule 100 mg PO BID 01/30/23 10/24/24 History furosemide 20 mg tablet 40 mg PO QAM 01/30/23 10/24/24 History ipratropium 0.5 mg-albuterol 3 mg 3 ml inhalation Q6H PRN Shortness 01/30/23 10/24/24 History (2.5 mg base)/3 mL nebulization Of Breath Or Wheezing soln metoprolol tartrate 25 mg tablet 25 mg PO BID 01/30/23 10/24/24 History potassium chloride 10 mEq 10 meq PO 3XWK 01/30/23 10/24/24 History tablet,extended release(part/cryst) (Klor-Con M) fluticasone fur. 100 mcg-umeclid 1 inh inhalation QAM 02/15/23 10/24/24 History 62.5 mcg-vilant 25 mcg inhalat.powder (Trelegy Ellipta) ascorbic acid (vitamin C) 250 mg 125 mg PO QDL 04/21/23 10/24/24 History tablet fluticasone propionate 50 2 spray intranasal DAILY PRN 04/21/23 10/24/24 History mcg/actuation nasal Allergy Symptoms spray,suspension apixaban 2.5 mg tablet (Eliquis) 2.5 mg PO BID 09/02/23 10/24/24 History pantoprazole 40 mg tablet,delayed 40 mg PO AMHS #60 tabs 09/15/23 10/24/24 Rx release doxycycline hyclate 100 mg capsule 100 mg PO BID PRN RESCUE KIT FOR 10/24/24 10/24/24 History COPD ferrous sulfate 325 mg (65 mg 325 mg PO QDL 10/24/24 10/24/24 History iron) tablet (Feosol) guaifenesin 600 mg tablet, 600 mg PO Q12H PRN Congestion 10/24/24 10/24/24 History extended release 12 hr prednisone 20 mg tablet 40 mg PO DAILY PRN RESCUE KIT FOR 10/24/24 10/24/24 History COPD Past Med/Surg History Problem List Anemia (Acute) Acute GI bleeding (Acute) Elevated troponin I level (Acute) Anemia (Acute) Acute upper gastrointestinal bleeding (Acute) Duodenal ulcer Pulmonary edema (Acute) Current use of half-way anticoagulation (Acute) SOB (shortness of breath) (Acute) Anemia (Acute) GI bleed (Acute) Gout (Chronic) History of GI bleed Sinus pause Labile blood pressure Acute respiratory failure with hypoxia Bronchitis Acute on chronic kidney failure COPD exacerbation (Acute) Abnormal CXR Stage 3b chronic kidney disease (CKD) Anemia due to chronic kidney disease CKD (chronic kidney disease) (Acute) Chronic anemia (Acute) Acute kidney injury superimposed on chronic kidney disease Melena Acute GI bleeding (Acute) COPD with exacerbation (Acute) Acute upper GI bleed (Acute) Symptomatic anemia (Acute) Anemia requiring transfusions (Acute) Recurrent gastrointestinal hemorrhage Shaggy aorta syndrome SOB (shortness of breath) (Acute) Bronchitis (Acute) COPD exacerbation (Acute) Wheezing (Acute) Anemia (Acute) Elevated troponin (Acute) Acute and chronic respiratory failure Goals of care, counseling/discussion Medical History MGUS (monoclonal gammopathy of unknown significance) CRF (chronic renal failure) History of cholelithiasis Chronic respiratory failure with hypoxia, on home O2 therapy GERD (gastroesophageal reflux disease) COPD (chronic obstructive pulmonary disease) exacerbation Dec 2022 - Hospitalized [facility] Dec 24-2022. Med change and ef fective since. Denies current issues. O2 2 L HS & PRN throughout day. PFO (patent foramen ovale) Wide-complex tachycardia CVA (cerebral vascular accident) Gastroparesis pt is not sure about this dx. History of colon polyps x1 a few yrs ago/follow up in 5 yrs. 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 Ascending thoracic aorta at the level of the right pulmonary artery 4.2 cm unchanged. 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 Descending thoracic aorta at the level of the left atrium again up to 4.[address] scan Dec 2022 - pt told everything was stable. 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 follows with Dr. Jefferson Gastric ulcer Hearing deficit BL NAILS Hx SBO History of GI bleed Stroke X 2 (LAST EVENT 05/2020) CONT. TO HAVE SLIGHT BALANCE ISSUES Sleep apnea CPAP Hx of gout PSVT (paroxysmal supraventricular tachycardia) Aortic stenosis Thoracic aortic atherosclerosis, densely calcified coronary arteries, severely calcified aortic valve, aneurysmal outpouching of the aortic arch. CKD (chronic kidney disease), stage III follows with [facility] nephrology Hyperlipidemia Hypertension Surgical History History of tonsillectomy History of esophagogastroduodenoscopy (EGD) most recent a few months ago for a bleed, this is a follow up procedure. History of tooth extraction History of tonsillectomy and adenoidectomy pt not sure about adenoids. History of lumbar surgery 1999 S/P AAA repair 01/13/2009 - Dr Suazo ([facility]) Hx of colonoscopy Hx of hernia repair lysis of adhesions, incisional hernia repair laparoscopically 01/28/[address] [facility] - Dr Desouza Family History Other AAA (abdominal aortic aneurysm) Hypertension No family history of adverse response to anesthesia Social History Smoking Status: Unknown if ever smoked Tobacco Type: Cigarettes Age Started Using Tobacco: 18; Cigarettes Per Day: Former cigarette. 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 ENT- oropharynx clear Neck- supple, no JVD. Lungs- clear to auscultation no wheezing or crackles Heart- regular rate and rhythm; no murmur, no gallop. Abdomen- normal bowel sounds, soft, nontender, no distension Extremities- no pretibial edema, no erythema seen Neuro- alert, oriented PERRL, no facial palsy; no dysarthria; moves extremities Results & Data Results & Data Vital Signs (Past 12 Hours) Vital Signs Temp Pulse Pulse Resp BP BP BP 10/24/24 03:38 36.6 C 85 20 118/80 10/24/24 03:30 36.6 C 87 18 118/80 10/24/24 03:14 36.5 C 88 22 143/89 H 10/24/24 03:00 79 22 124/78 10/24/24 02:45 36.5 C 78 24 137/77 10/24/24 02:30 78 24 131/68 10/24/24 02:15 36.7 C 81 24 124/73 10/24/24 02:12 82 10/24/24 02:00 36.6 C 82 20 123/79 10/24/24 01:43 36.6 C 85 18 85/54 L 10/24/24 00:58 80 16 114/84 10/24/24 00:03 81 20 95/61 L 10/23/24 22:23 85 20 10/23/24 22:20 88 10/23/24 22:03 36.8 C 85 16 116/73 10/23/24 22:03 36.8 C 86 20 116/73 Pulse Ox O2 Del Method O2 Flow Rate 10/24/24 03:38 97 4 10/24/24 03:30 97 Nasal Cannula 3 10/24/24 03:14 98 4 10/24/24 03:00 99 Nasal Cannula 4 10/24/24 02:45 100 4 10/24/24 02:30 98 Nasal Cannula 4 10/24/24 02:15 96 4 10/24/24 02:12 10/24/24 02:00 96 10/24/24 01:43 95 4 10/24/24 00:58 98 Nasal Cannula 2 10/24/24 00:03 94 Nasal Cannula 2 10/23/24 22:23 94 Nasal Cannula 2 10/23/24 22:20 10/23/24 22:03 89 L Room Air 10/23/24 22:03 89 L Room Air Diagnostic Findings Laboratory Results WBC 12.23 K/ul (4.8-10.8) H 10/23/24 22:19 RBC 2.75 M/uL (4.70-6.10) L 10/23/24 22:19 Hgb 7.6 g/dl (14.0-18.0) L 10/24/24 01:23 POC Hgb 8.5 g/dl (14.0-18.0) L 10/23/24 22:23 Hct 24.4 % (42.0-52.0) L 10/24/24 01:23 POC Hct 25 % (42-52) L 10/23/24 22:23 MCV 105.5 fL (80.0-100.0) H 10/23/24 22:19 MCH 32.7 pg (25.0-34.0) 10/23/24 22:19 MCHC 31.0 g/dL (32.0-36.0) L 10/23/24 22:19 RDW Std Deviation 57.8 fL (36.4-46.3) H 10/23/24 22:19 RDW Coeff of Chaka 15.2 % (11.5-14.5) H 10/23/24 22:19 Plt Count K/uL (130-400) 10/23/24 22:19 MPV Not Reportable 10/23/24 22:19 Immature Gran % (Auto) 2.2 % 10/23/24 22:19 Neut % (Auto) 74.3 % 10/23/24 22:19 Lymph % (Auto) 8.7 % 10/23/24 22:19 Blanco % (Auto) 10.5 % 10/23/24 22:19 Eos % (Auto) 3.8 % 10/23/24 22:19 Baso % (Auto) 0.5 % 10/23/24 22:19 Neut # (Auto) 9.08 K/uL (1.40-6.50) H 10/23/24 22:19 Lymph # (Auto) 1.07 K/uL (1.20-3.40) L 10/23/24 22:19 Blanco # (Auto) 1.29 K/uL (0.11-0.59) H 10/23/24 22:19 Eos # (Auto) 0.46 K/uL (0.00-0.50) 10/23/24 22:19 Baso # (Auto) 0.06 K/uL (0.00-0.20) 10/23/24 22:19 Immature Gran # (Auto) 0.27 K/uL (0.01-0.20) H 10/23/24 22:19 Platelet Estimate Normal (Normal) 10/23/24 22:19 Plt Count ,Citrate 129 K/uL (130-400) L 10/24/24 00:06 POC Sodium 137 mmol/L (135-144) 10/23/24 22:23 Sodium 137 mmol/L (136-145) 10/23/24 22:19 POC Potassium 4.9 mmol/L (3.3-5.0) 10/23/24 22:23 Potassium 4.9 mmol/L (3.5-5.1) 10/23/24 22:19 POC Chloride 109 mmol/L (101-112) 10/23/24 22:23 Chloride 108 mmol/L (98-107) H 10/23/24 22:19 Carbon Dioxide 20 mmol/L (21-32) L 10/23/24 22:19 POC Total CO2 21 mmol/L (24-31) L 10/23/24 22:23 Anion Gap 9 (3-11) 10/23/24 22:19 POC Anion Gap 13.0 mmol/L (16-25) L 10/23/24 22:23 POC BUN 93 mg/dl (7-18) H 10/23/24 22:23 BUN 82 mg/dl (6-23) H 10/23/24 22:19 Creatinine 2.40 mg/dl (0.6-1.4) H 10/23/24 22:19 POC Creatinine 2.5 mg/dl (0.6-1.3) H 10/23/24 22:23 Est Cr Clr Drug Dosing 29.1 ml/min 10/23/24 22:19 eGFR 27.28 10/23/24 22:19 BUN/Creatinine Ratio 34.2 (10-20) H 10/23/24 22:19 Glucose 136 mg/dl (70-99(Fasting)) H 10/23/24 22:19 POC Glucose (other) 131 mg/dl (70-99) H 10/23/24 22:23 Calcium 7.5 mg/dl (8.6-10.3) L 10/23/24 22:19 POC Ioniz Calcium Maria G 1.08 mmol/l (1.12-1.32) L 10/23/24 22:23 Total Bilirubin 0.4 mg/dl (0.2-1.0) 10/23/24 22:19 AST 14 U/L (13-39) 10/23/24 22:19 ALT 14 U/L (7-52) 10/23/24 22:19 Alkaline Phosphatase 58 U/L (34-104) 10/23/24 22:19 Troponin I High Sens 56.6 pg/ml (0-20) H* D 10/24/24 00:06 Total Protein 5.1 gm/dl (6.0-8.3) L 10/23/24 22:19 Albumin 2.8 gm/dl (3.4-5.0) L 10/23/24 22:19 Globulin 2.3 gm/dl (2.5-4.0) L 10/23/24 22:19 Albumin/Globulin Ratio 1.2 (0.9-2) 10/23/24 22:19 Lipase 57 U/L (11-82) 10/23/24 22:19 Urine Color Yellow 10/23/24 23:41 Urine Appearance Clear (Clear) 10/23/24 23:41 Urine pH 5.0 (4.5-7.5) 10/23/24 23:41 Ur Specific [place] 1.018 (1.000-1.030) 10/23/24 23:41 Urine Protein 3+ (Negative) H 10/23/24 23:41 Urine Glucose (UA) Negative (Negative) 10/23/24 23:41 Urine Ketones Trace (Negative) H 10/23/24 23:41 Urine Blood Negative (Negative) 10/23/24 23:41 Urine Nitrite Negative (Negative) 10/23/24 23:41 Urine Bilirubin Negative (Negative) 10/23/24 23:41 Urine Urobilinogen Negative (Negative) 10/23/24 23:41 Ur Leukocyte Esterase 2+ (Negative) H 10/23/24 23:41 Urine WBC (Auto) 6-10 /hpf (0-5) H 10/23/24 23:41 Urine RBC (Auto) 0-2 /hpf (0-2) 10/23/24 23:41 U Hyaline Cast (Auto) 3-5 /lpf (0-2) H 10/23/24 23:41 U Epithel Cells (Auto) 0-2 /hpf (0-2) 10/23/24 23:41 Urine Bacteria (Auto) None Seen (None Seen) 10/23/24 23:41 Urine Comment 10/23/24 23:41 Blood Type A Positive 10/24/24 00:06 Antibody Screen NEGATIVE 10/24/24 00:06 Crossmatch See Detail 10/24/24 00:06 Impressions Abdomen/Pelvis CT 10/23/24 22:24 Exam(s): CT ABDOMEN + PELVIS Without Contrast EXAM: CT Abdomen and Pelvis Without Intravenous Contrast CLINICAL HISTORY: Reason for exam: severe llq pain. TECHNIQUE: Axial computed tomography images of the abdomen and pelvis without intravenous contrast. CTDI is 28.04 mGy and DLP is 1297.8 mGy-cm. Automated exposure control was utilized for the study. A dose lowering technique was utilized adhering to the principles of ALARA. COMPARISON: None FINDINGS: Lung bases: Bibasilar atelectasis. ABDOMEN: Liver: Unremarkable. Gallbladder and bile ducts: Unremarkable. No calcified stones. No ductal dilation. Pancreas: Unremarkable. No ductal dilation. Spleen: Unremarkable. No splenomegaly. Adrenals: Unremarkable. No mass. Kidneys and ureters: Unremarkable. No hydronephrosis or obstructing ureteral stone. Stomach and bowel: Clips seen along the stomach. Hyperdense material within the stomach could represent ingested material versus blood products. Blood products within the gastric wall are not excluded. Evaluation is somewhat limited without IV contrast. No free intraperitoneal blood identified. Diverticulosis without evidence of diverticulitis. No obstruction. PELVIS: Appendix: Normal appendix. Bladder: Unremarkable. No stones. Reproductive: Borderline size of the prostate. ABDOMEN and PELVIS: Intraperitoneal space: Unremarkable. No free air. No significant fluid collection. Bones/joints: Right convex curvature of the spine. Degenerative changes of the spine. Postsurgical changes at L5-S1. Grade 1 anterolisthesis of L5 on S1. No acute fracture. No dislocation. Soft tissues: Mild bilateral gynecomastia. Bilateral fat containing inguinal hernias. Ventral hernia repair. Small fat containing umbilical and ventral hernias. Vasculature: Atherosclerotic changes of the vasculature. No abdominal aortic aneurysm. Lymph nodes: Unremarkable. No enlarged lymph nodes. IMPRESSION: Clips seen along the stomach. Hyperdense material within the stomach could represent ingested material versus blood products. Blood products within the gastric wall are not excluded. Evaluation is somewhat limited without IV contrast. No free intraperitoneal blood identified. Electronically signed by: London Nielsen M.D. 10/24/24 00:[address] 10/23/24 22:27 Exam(s): CT CHEST Without Contrast EXAM: CT Chest Without Intravenous Contrast CLINICAL HISTORY: Reason for exam: severe mid abd pain. hx AA. TECHNIQUE: Axial computed tomography images of the chest without intravenous contrast. Automated exposure control was utilized for the study. A dose lowering technique was utilized adhering to the principles of ALARA. COMPARISON: No relevant prior studies available. FINDINGS: Lungs: Linear atelectasis left upper lobe. No mass. Pleural space: Unremarkable. No significant effusion. No pneumothorax. Heart: Aortic valve calcification. Coronary artery calcifications. No cardiomegaly. No significant pericardial effusion. Bones/joints: Unremarkable. No acute fracture. Soft tissues: Unremarkable. Vasculature: 6.8 cm thoracic aortic aneurysm at the aortic arch. Lymph nodes: Unremarkable. No enlarged lymph nodes. Other findings: Dense calcification. IMPRESSION: No acute findings in the chest. 6.8 cm thoracic aortic aneurysm Electronically signed by: Lester Reinoso MD 10/24/24 00:06 AM Abdomen/Pelvis CTA 10/24/24 01:46 EXAM: CT angio abdomen pelvis w con CLINICAL HISTORY: GI bleed, ? active bleeding TECHNIQUE: Contrast enhanced thin slice CT angiography scan of the abdominal aorta was performed with intravenous contrast. Angiographic images were processed, 3D MIP images were acquired for interpretation. Contiguous axial images were obtained. Reformatted coronal and sagittal images were also reviewed. If IV contrast material had not been administered, the likelihood of detecting abnormalities relevant to the patients condition would have been substantially decreased. CT scan was performed according to ALARA (as low as reasonable achievable). 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 FINDINGS: Diffuse atherosclerotic calcification is noted involving aorta. 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 Abdominal aorta is normal in course, calibre and opacification. Origin of coeliac artery, superior mesenteric artery , bilateral main renal and lumbar arteries shows diffuse atherosclerotic calcification with mild to moderate stenosis. No evidence of end organ ischemia seen. Bilateral common, external and internal iliac arteries shows diffuse atherosclerotic calcification without significant stenosis. About 11 x 9 mm sized hypodense lesion is noted involving segment IV of liver - appear simple cyst. Multiple small uncomplicated sigmoid colonic diverticulosis Solid abdominal organs including liver, spleen, pancreas and bilateral kidneys reveal no significant abnormality. Bowel loops are grossly unremarkable. No evidence of ascites. IMPRESSION: 1. Diffuse atherosclerotic calcification is noted involving aorta and its all major branches-stable. 2. 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 3. Small hepatic cyst.-stable. 4. Uncomplicated colonic diverticulosis.-stable. 5. No obvious extravasation of contrast/active bleed. Electronically signed by Aiden Licona 10-24-2024 03:09 AM ECG Additional Comments: ECG normal sinus rhythm rate of 85. No acute ST changes seen. QTc 454. Code Status & VTE Plan VTE Prophylaxis Plan VTE Prophylaxis will be ordered: Yes
[2024-10-24 04:35] LABS: INR 1.1 (0.9-1.1); Partial Thromboplastin Time 27 Seconds (21-31); Prothrombin Time 11.7 Seconds (9.0-12.0)
[2024-10-24 04:37] LABS: Fibrinogen 274 mg/dl (184-400)
[2024-10-24 04:43] LABS: ANTI-Xa, LMWH(Low Molecular Wt 0.62 IU/ML (< 0.10)
--- NOTE | 2024-10-24 04:48 | Anesthesiology Consultation ---
Date of Service October 24, 2024 Assessment & Plan Chart Review Chart Review: Acceptable Risk for Surgery and Patient NOT seen in Pre Admission Testing Consults Requested none ASA ASA4E Proposed Anesthesia Anesthesia Type: General Risk / Benefits Reviewed With: PT / POA / Parent / Guardian, Accepts Plan and Informed Consent Obtained Additional Comments: Medically complex 74 y/o M with hx of severe , AAA s/p repair with reocurrence deemed inoperable, afib on eliquis, CVAx2, COPD on 3 L O2, GINNY, MGUS, gastroparesis presenting with hematemesis x2. Blood appeared dark. Patient denies chest pain and is sob. Previously intubated with mac 3 and 4 without issue. Discussed increased risk with anesthesia and patient understands and accepts risks. Plan GA. ASA4E History Height/Weight Height: 5 ft 7 in Weight: 97.1 kg Allergies Allergy/AdvReac Type Severity Reaction Status Date / Time RUBENS Inhibitors AdvReac Intermediate HYPERKALEMIA---DROPS Verified 10/24/24 00:28 BLOOD PRESSURE lisinopril AdvReac Intermediate HYPERKALEMIA--DROPS Verified 10/24/24 00:28 BLOOD PRESSURE Medications Home Medications Medication Instructions Recorded Confirmed Last Taken albuterol sulfate 90 mcg/actuation 2 puff inhalation Q4H PRN Wheezing 01/30/23 10/24/24 Unknown aerosol inhaler allopurinol 300 mg tablet 150 mg PO DAILY 01/30/23 10/24/24 10/23/24 atorvastatin 80 mg tablet 80 mg PO QAM 01/30/23 10/24/24 10/23/24 azelastine 137 mcg (0.1 %) nasal 1 spray intranasal AMHS Nasal 01/30/23 10/24/24 10/23/24 08:00 spray Congestion cholecalciferol (vitamin D3) 50 50 mcg PO DAILY 01/30/23 10/24/24 10/23/24 mcg (2,000 unit) tablet (Vitamin D3) docusate sodium 100 mg capsule 100 mg PO BID 01/30/23 10/24/24 10/23/24 08:00 furosemide 20 mg tablet 40 mg PO QAM 01/30/23 10/24/24 10/23/24 ipratropium 0.5 mg-albuterol 3 mg 3 ml inhalation Q6H PRN Shortness 01/30/23 10/24/24 02/22/23 (2.5 mg base)/3 mL nebulization Of Breath Or Wheezing soln metoprolol tartrate 25 mg tablet 25 mg PO BID 01/30/23 10/24/24 10/23/24 08:00 potassium chloride 10 mEq 10 meq PO 3XWK 01/30/23 10/24/24 10/22/24 tablet,extended release(part/cryst) (Klor-Con M) fluticasone fur. 100 mcg-umeclid 1 inh inhalation QAM 02/15/23 10/24/24 10/23/24 62.5 mcg-vilant 25 mcg inhalat.powder (Trelegy Ellipta) ascorbic acid (vitamin C) 250 mg 125 mg PO QDL 04/21/23 10/24/24 10/23/24 tablet fluticasone propionate 50 2 spray intranasal DAILY PRN 04/21/23 10/24/24 Unknown mcg/actuation nasal Allergy Symptoms spray,suspension apixaban 2.5 mg tablet (Eliquis) 2.5 mg PO BID 09/02/23 10/24/24 10/23/24 08:00 pantoprazole 40 mg tablet,delayed 40 mg PO AMHS #60 tabs 09/15/23 10/24/24 10/23/24 08:00 release doxycycline hyclate 100 mg capsule 100 mg PO BID PRN RESCUE KIT FOR 10/24/24 10/24/24 10/23/24 08:00 COPD ferrous sulfate 325 mg (65 mg 325 mg PO QDL 10/24/24 10/24/24 10/23/24 iron) tablet (Feosol) guaifenesin 600 mg tablet, 600 mg PO Q12H PRN Congestion 10/24/24 10/24/24 Unknown extended release 12 hr prednisone 20 mg tablet 40 mg PO DAILY PRN RESCUE KIT FOR 10/24/24 10/24/24 Unknown COPD Active Medications Generic Name Dose Route Start Last Admin Trade Name Freq PRN Reason Stop Dose Admin Pantoprazole Sodium 40 mg/ 100 mls @ 20 mls/hr 10/24/24 02:45 10/24/24 02:45 Dextrose IV 11/23/24 02:44 8 mg/hr Q5H MOLINA 20 mls/hr Administration 8 MG/HR Sodium Chloride 1,000 mls @ 100 mls/hr 10/24/24 03:09 10/24/24 04:04 Nss IV 10/27/24 03:08 100 mls/hr .Q10H MOLINA Administration Octreotide Acetate 500 mcg/ 100.5 mls @ 10.05 mls/hr 10/24/24 04:00 10/24/24 04:17 Sodium Chloride IV 11/23/24 03:59 50 mcg/hr .Q10H MOLINA 10.1 mls/hr Administration 50 MCG/HR NPO Date Last Intake of Fluids: 10/23/24 Time Last Intake of Fluids: 18:00 Date Last Intake of Solids: 10/23/24 Time Last Intake of Solids: 18:00 Past Medical History Medical History MGUS (monoclonal gammopathy of unknown significance) CRF (chronic renal failure) History of cholelithiasis Chronic respiratory failure with hypoxia, on home O2 therapy GERD (gastroesophageal reflux disease) COPD (chronic obstructive pulmonary disease) exacerbation Dec 2022 - Hospitalized [facility] Dec 242022. Med change and effective since. Denies current issues. O2 2 L HS & PRN throughout day. PFO (patent foramen ovale) Wide-complex tachycardia CVA (cerebral vascular accident) Gastroparesis pt is not sure about this dx. History of colon polyps x1 a few yrs ago/follow up in 5 yrs. 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 Ascending thoracic aorta at the level of the right pulmonary artery 4.2 cm unchanged. 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 Descending thoracic aorta at the level of the left atrium again up to 4.[address] scan Dec 2022 - pt told everything was stable. 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 follows with Dr. Jefferson Gastric ulcer Hearing deficit BL NAILS Hx SBO History of GI bleed Stroke X 2 (LAST EVENT 05/2020) CONT. TO HAVE SLIGHT BALANCE ISSUES Sleep apnea CPAP Hx of gout PSVT (paroxysmal supraventricular tachycardia) Aortic stenosis Thoracic aortic atherosclerosis, densely calcified coronary arteries, severely calcified aortic valve, aneurysmal outpouching of the aortic arch. CKD (chronic kidney disease), stage III follows with [facility] nephrology Hyperlipidemia Hypertension Past Family History Family History Other AAA (abdominal aortic aneurysm) Hypertension No family history of adverse response to anesthesia Past Surgical History Surgical History History of tonsillectomy History of esophagogastroduodenoscopy (EGD) most recent a few months ago for a bleed, this is a follow up procedure. History of tooth extraction History of tonsillectomy and adenoidectomy pt not sure about adenoids. History of lumbar surgery 1999 S/P AAA repair 01/13/2009 - Dr Suazo ([facility]) Hx of colonoscopy Hx of hernia repair lysis of adhesions, incisional hernia repair laparoscopically 01/28/2010 at [facility] - Dr Desouza Past Anesthesia History No Hx of Anesthesia Complications and No Family Hx of Anesthesia Complications Social History Smoking Status: Unknown if ever smoked tobacco type: cigarettes Smoking cigarettes per day: Former cigarette. Quit 1999 Do You Dip or Chew Tobacco: No Hx Alcohol Use: Yes Alcohol type: hard liquor alcohol intake frequency: 0-2 drinks per day Alcohol Intake Frequency Comment: 2 shots/day Hx Substance Use: No substance use type: does not use Physical Exam Vital Signs Last Vital Signs Temp 36.6 C 10/24/24 04:44 Pulse 80 10/24/24 04:44 Resp 20 10/24/24 04:44 BP 125/74 10/24/24 04:44 Pulse Ox 96 10/24/24 04:44 O2 Del Method Nasal Cannula 10/24/24 03:30 O2 Flow Rate 4 10/24/24 04:44 ENMT Mouth: no TMJ abnormality Thyromental Distance: > or= 3.5 Finger Breadths Mallampati Class: II Neck normal visual inspection and trachea midline; neck extension not limited Respiratory normal respiratory effort Auscultation: lungs clear to auscultation bilaterally Cardiovascular Rate/Rhythm: regular rate and regular rhythm Heart Sounds: no murmur Musculoskeletal Spine: normal cervical ROM Extremities: full ROM of extremities Neurologic moves all extremities Psychiatric Orientation: alert and oriented x 3 Testing Laboratory Results 10/24/24 01:23 PT 11.7 Seconds (9.0-12.0) 10/24/24 03:35 INR 1.1 (0.9-1.1) 10/24/24 03:35 APTT 27 Seconds (21-31) 10/24/24 03:35 Urine Color Yellow 10/23/24 23:41 Urine Appearance Clear (Clear) 10/23/24 23:41 Urine pH 5.0 (4.5-7.5) 10/23/24 23:41 Ur Specific [place] 1.018 (1.000-1.030) 10/23/24 23:41 Urine Protein 3+ (Negative) H 10/23/24 23:41 Urine Glucose (UA) Negative (Negative) 10/23/24 23:41 Urine Ketones Trace (Negative) H 10/23/24 23:41 Urine Nitrite Negative (Negative) 10/23/24 23:41 Ur Leukocyte Esterase 2+ (Negative) H 10/23/24 23:41 Urine WBC (Auto) 6-10 /hpf (0-5) H 10/23/24 23:41 Urine RBC (Auto) 0-2 /hpf (0-2) 10/23/24 23:41 U Hyaline Cast (Auto) 3-5 /lpf (0-2) H 10/23/24 23:41 U Epithel Cells (Auto) 0-2 /hpf (0-2) 10/23/24 23:41 Urine Bacteria (Auto) None Seen (None Seen) 10/23/24 23:41 Blood Type A Positive 10/24/24 00:06 Antibody Screen NEGATIVE 10/24/24 00:06 10/23/24 22:23 POC Glucose (other) 131 H Electrocardiogram Date: 10/23/24 Findings: + NSR @ Echocardiogram Date: 01/31/23 EF: 60-65% LV Function: normal Valvular Disease: + (severe)
[2024-10-24 04:49] LABS: Anion Gap 8.0 (3-11); Blood Urea Nitrogen 94.0 mg/dl (6-23); Calcium 7.1 mg/dl (8.6-10.3); Carbon Dioxide 20.0 mmol/L (21-32); Chloride 110.0 mmol/L (98-107); Creatinine Clr Calc Pharmacy 29.9 ml/min; Glucose 130.0 mg/dl (70-99(Fasting)); Magnesium 1.3 mg/dl (1.7-2.4); Potassium 4.9 mmol/L (3.5-5.1); Sodium 138.0 mmol/L (136-145)
[2024-10-24] MEDS ORDERED: DEXAMETHASONE SOD INJ 4 MG/ML VIAL ONE (05:02)
[2024-10-24] MEDS ORDERED: LIDOCAINE 2% 2 ML VIAL/AMP(20MG/ML) INFIL ONE (05:02)
[2024-10-24] MEDS ORDERED: ETOMIDATE 2 MG/ML 20 ML VIAL IV ONE (05:02)
[2024-10-24] MEDS ORDERED: ONDANSETRON INJ 2 MG/ML 2 ML VIAL ONE (05:02)
[2024-10-24] MEDS ORDERED: SUCCINYLCHOLINE CHLORIDE 20 MG/ML 10 ML VIAL IV ONE (05:02)
[2024-10-24] MEDS ORDERED: ROCURONIUM BROMIDE 10 MG/ML 5 ML VIAL IV ONE (05:07)
--- NOTE | 2024-10-24 05:27 | Gastrointestinal Consultation ---
Date of Consultation October 24, 2024 Assessment & Plan (1) Acute GI bleeding: Presents with upper GI bleed. Past history of duodenal ulcer which had no stigmata of endoscopy a year ago. Differential diagnosis includes recurrent peptic ulcer disease, Linnette Menendez tear, less likely varices. Has a history of aortic aneurysm repair. Need to also consider aortoenteric fistula however imaging does not suggest that on CTA abdominal CT. Will proceed with emergency endoscopy. History of Present Illness Reason for Consultation: Hematemesis upper GI bleed Attending Physician: Aspen Kumar MD History of Present Illness Patient presented to the emergency room today with some abdominal pain. In the emergency room had a large volume of bright red blood hematemesis and became hypotensive. He subsequently had 1 additional episode of hematemesis. He was resuscitated with IV fluids and blood products with hemodynamic stability achieved. No further hematemesis no melena. He has a history of a duodenal ulcer diagnosed in 2023 showed no stigmata was superficial. He had a repeat endoscopy this past April which just showed some gastritis. He takes Eliquis for atrial fibrillation. Has a history of aortic aneurysm with repair with recurrent aneurysm. CT scan imaging does not suggest the presence of an aortic enteric fistula. He has had some endoscopic intervention in his biliary tree and has an indwelling stent in his duodenum. He has a history of alcohol abuse but no history of cirrhosis. No history of esophageal varices. Has significant cardiopulmonary disease and other comorbidities listed below. Allergies Allergy/AdvReac Type Severity Reaction Status Date / Time RUBENS Inhibitors AdvReac Intermediate HYPERKALEMIA---DROPS Verified 10/24/24 00:28 BLOOD PRESSURE lisinopril AdvReac Intermediate HYPERKALEMIA--DROPS Verified 10/24/24 00:28 BLOOD PRESSURE Home Medications Medication Instructions Recorded Confirmed Type albuterol sulfate 90 mcg/actuation 2 puff inhalation Q4H PRN Wheezing 01/30/23 10/24/24 History aerosol inhaler allopurinol 300 mg tablet 150 mg PO DAILY 01/30/23 10/24/24 History atorvastatin 80 mg tablet 80 mg PO QAM 01/30/23 10/24/24 History azelastine 137 mcg (0.1 %) nasal 1 spray intranasal AMHS Nasal 01/30/23 10/24/24 History spray Congestion cholecalciferol (vitamin D3) 50 50 mcg PO DAILY 01/30/23 10/24/24 History mcg (2,000 unit) tablet (Vitamin D3) docusate sodium 100 mg capsule 100 mg PO BID 01/30/23 10/24/24 History furosemide 20 mg tablet 40 mg PO QAM 01/30/23 10/24/24 History ipratropium 0.5 mg-albuterol 3 mg 3 ml inhalation Q6H PRN Shortness 01/30/23 10/24/24 History (2.5 mg base)/3 mL nebulization Of Breath Or Wheezing soln metoprolol tartrate 25 mg tablet 25 mg PO BID 01/30/23 10/24/24 History potassium chloride 10 mEq 10 meq PO 3XWK 01/30/23 10/24/24 History tablet,extended release(part/cryst) (Klor-Con M) fluticasone fur. 100 mcg-umeclid 1 inh inhalation QAM 02/15/23 10/24/24 History 62.5 mcg-vilant 25 mcg inhalat.powder (Trelegy Ellipta) ascorbic acid (vitamin C) 250 mg 125 mg PO QDL 04/21/23 10/24/24 History tablet fluticasone propionate 50 2 spray intranasal DAILY PRN 04/21/23 10/24/24 History mcg/actuation nasal Allergy Symptoms spray,suspension apixaban 2.5 mg tablet (Eliquis) 2.5 mg PO BID 09/02/23 10/24/24 History pantoprazole 40 mg tablet,delayed 40 mg PO AMHS #60 tabs 09/15/23 10/24/24 Rx release doxycycline hyclate 100 mg capsule 100 mg PO BID PRN RESCUE KIT FOR 10/24/24 History COPD ferrous sulfate 325 mg (65 mg 325 mg PO QDL 10/24/24 10/24/24 History iron) tablet (Feosol) guaifenesin 600 mg tablet, 600 mg PO Q12H PRN Congestion 10/24/24 10/24/24 History extended release 12 hr prednisone 20 mg tablet 40 mg PO DAILY PRN RESCUE KIT FOR 10/24/24 10/24/24 History COPD Patient History Medical History MGUS (monoclonal gammopathy of unknown significance) CRF (chronic renal failure) History of cholelithiasis Chronic respiratory failure with hypoxia, on home O2 therapy GERD (gastroesophageal reflux disease) COPD (chronic obstructive pulmonary disease) exacerbation Dec 2022 - Hospitalized [facility] Dec 24-2022. Med change and effective since. Denies current issues. O2 2 L HS & PRN throughout day. PFO (patent foramen ovale) Wide-complex tachycardia CVA (cerebral vascular accident) Gastroparesis pt is not sure about this dx. History of colon polyps x1 a few yrs ago/follow up in 5 yrs. 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 Ascending thoracic aorta at the level of the right pulmonary artery 4.2 cm unchanged. 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 Descending thoracic aorta at the level of the left atrium again up to 4.[address] scan Dec 2022 - pt told everything was stable. 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 follows with Dr. Jefferson Gastric ulcer Hearing deficit BL NAILS Hx SBO History of GI bleed Stroke X 2 (LAST EVENT 05/2020) CONT. TO HAVE SLIGHT BALANCE ISSUES Sleep apnea CPAP Hx of gout PSVT (paroxysmal supraventricular tachycardia) Aortic stenosis Thoracic aortic atherosclerosis, densely calcified coronary arteries, severely calcified aortic valve, aneurysmal outpouching of the aortic arch. CKD (chronic kidney disease), stage III follows with [facility] nephrology Hyperlipidemia Hypertension Surgical History History of tonsillectomy History of esophagogastroduodenoscopy (EGD) most recent a few months ago for a bleed, this is a follow up procedure. History of tooth extraction History of tonsillectomy and adenoidectomy pt not sure about adenoids. History of lumbar surgery 1999 S/P AAA repair 01/13/2009 - Dr Suazo ([place] Hx of colonoscopy Hx of hernia repair lysis of adhesions, incisional hernia repair laparoscopically 01/28/2010 at [facility] - Dr Desouza Family History Other AAA (abdominal aortic aneurysm) Hypertension No family history of adverse response to anesthesia Social History Smoking Status: Unknown if ever smoked Tobacco Type: Cigarettes Age Started Using Tobacco: 18; Cigarettes Per Day: Former cigarette. Quit 1998; Second Hand Exposure: No; Do You Dip or Chew Tobacco: No; Hx Alcohol Use: Yes Alcohol type: hard liquor Alcohol type Comment: 3 beers a day Hx Substance Use: No Preferred Language: Syrian Communication Ability: Effective Communication Ability Comment: pt communication effective Brake Adjuster Required: No Beliefs That Will Affect Care: None marital status: Current Living Situation: Spouse Current Living Situation Comment: and daughter current occupational status: employed Other Information That Helps Us Care for You: No Feels Safe at Home: Yes Safety Concerns: Feels Safe At This Time Assistive Devices: Glasses Review of Systems Review of Systems: No fever No chills Mild SOB No CP Generalized abdominal pain see HPI for GI symptoms Physical Exam Physical Exam: Eyes; anicteric HENT No masses Chest clear to A Cor S1, S2 physiologic Abd: softer nontender no masses Ext no edema Results & Data Vital Signs (Past 12 Hours) Vital Signs Temp Pulse Pulse Resp BP BP BP 10/24/24 05:00 159/88 H 10/24/24 04:51 84 30 H 10/24/24 04:45 82 21 10/24/24 04:45 145/83 H 10/24/24 04:45 145/83 H 10/24/24 04:45 145/83 H 10/24/24 04:44 36.6 C 80 20 125/74 10/24/24 04:42 81 21 10/24/24 04:24 83 29 H 10/24/24 04:15 167/103 H 10/24/24 04:12 86 30 H 10/24/24 04:01 162/85 H 10/24/24 04:01 162/85 H 10/24/24 04:01 162/85 H 10/24/24 03:42 84 32 H 10/24/24 03:38 36.6 C 85 20 118/80 10/24/24 03:34 118/80 10/24/24 03:34 118/80 10/24/24 03:33 87 29 H 10/24/24 03:30 10/24/24 03:30 36.6 C 87 18 118/80 10/24/24 03:16 36.5 C 88 22 143/89 H 10/24/24 03:14 36.5 C 88 22 143/89 H 10/24/24 03:03 79 24 10/24/24 03:00 124/78 10/24/24 03:00 124/78 10/24/24 03:00 79 22 124/78 10/24/24 02:57 81 20 10/24/24 02:51 79 20 10/24/24 02:45 137/77 10/24/24 02:45 137/77 10/24/24 02:45 36.5 C 78 24 137/77 10/24/24 02:42 79 15 10/24/24 02:39 78 28 H 10/24/24 02:31 131/68 10/24/24 02:31 131/68 10/24/24 02:30 78 24 131/68 10/24/24 02:15 36.7 C 81 24 124/73 10/24/24 02:12 82 15 10/24/24 02:12 82 10/24/24 02:11 123/79 10/24/24 02:11 123/79 10/24/24 02:00 36.6 C 82 20 123/79 10/24/24 01:55 121/76 10/24/24 01:50 91/51 L 10/24/24 01:50 91/51 L 10/24/24 01:48 84 23 10/24/24 01:46 86/52 L 10/24/24 01:46 86/52 L 10/24/24 01:45 84 27 H 10/24/24 01:43 36.6 C 85 18 85/54 L 10/24/24 01:39 85 25 H 10/24/24 01:39 85/54 L 10/24/24 01:39 85/54 L 10/24/24 01:38 98/65 L 10/24/24 01:38 98/65 L 10/24/24 01:33 79 29 H 10/24/24 01:30 133/85 10/24/24 01:30 133/85 10/24/24 01:06 82 24 10/24/24 01:00 93/68 L 10/24/24 01:00 93/68 L 10/24/24 00:58 80 16 114/84 10/24/24 00:48 81 27 H 10/24/24 00:45 82 27 H 10/24/24 00:31 114/84 10/24/24 00:31 114/84 10/24/24 00:30 82 35 H 10/24/24 00:21 81 21 10/24/24 00:18 80 24 10/24/24 00:03 81 20 95/61 L 10/24/24 00:00 95/61 L 10/23/24 22:23 85 20 10/23/24 22:20 88 10/23/24 22:03 36.8 C 85 16 116/73 10/23/24 22:03 36.8 C 86 20 116/73 Pulse Ox O2 Del Method O2 Flow Rate 10/24/24 05:00 10/24/24 04:51 96 10/24/24 04:45 96 10/24/24 04:45 10/24/24 04:45 10/24/24 04:45 10/24/24 04:44 96 4 10/24/24 04:42 96 10/24/24 04:24 98 10/24/24 04:15 10/24/24 04:12 98 10/24/24 04:01 10/24/24 04:01 10/24/24 04:01 10/24/24 03:42 98 10/24/24 03:38 97 4 10/24/24 03:34 10/24/24 03:34 10/24/24 03:33 98 10/24/24 03:30 Nasal Cannula 4 10/24/24 03:30 97 Nasal Cannula 3 10/24/24 03:16 98 4 10/24/24 03:14 98 4 10/24/24 03:03 98 10/24/24 03:00 10/24/24 03:00 10/24/24 03:00 99 Nasal Cannula 4 10/24/24 02:57 97 10/24/24 02:51 100 10/24/24 02:45 10/24/24 02:45 10/24/24 02:45 100 4 10/24/24 02:42 99 10/24/24 02:39 100 10/24/24 02:31 10/24/24 02:31 10/24/24 02:30 98 Nasal Cannula 4 10/24/24 02:15 96 4 10/24/24 02:12 96 10/24/24 02:12 10/24/24 02:11 10/24/24 02:11 10/24/24 02:00 96 10/24/24 01:55 10/24/24 01:50 10/24/24 01:50 10/24/24 01:48 94 10/24/24 01:46 10/24/24 01:46 10/24/24 01:45 94 10/24/24 01:43 95 4 10/24/24 01:39 94 10/24/24 01:39 10/24/24 01:39 10/24/24 01:38 10/24/24 01:38 10/24/24 01:33 92 10/24/24 01:30 10/24/24 01:30 10/24/24 01:06 95 10/24/24 01:00 10/24/24 01:00 10/24/24 00:58 98 Nasal Cannula 2 10/24/24 00:48 94 10/24/24 00:45 94 10/24/24 00:31 10/24/24 00:31 10/24/24 00:30 10/24/24 00:21 93 10/24/24 00:18 94 10/24/24 00:03 94 Nasal Cannula 2 10/24/24 00:00 10/23/24 22:23 94 Nasal Cannula 2 10/23/24 22:20 10/23/24 22:03 89 L Room Air 10/23/24 22:03 89 L Room Air Laboratory Results Laboratory Results - last 48 hr 10/23/24 10/23/24 10/23/24 22:19 22:23 23:41 WBC 12.23 H RBC 2.75 L Hgb 9.0 L POC Hgb 8.5 L Hct 29.0 L POC Hct 25 L MCV 105.5 H MCH 32.7 MCHC 31.0 L RDW Std Deviation 57.8 H RDW Coeff of Chaka 15.2 H Plt Count MPV Not Reportable Immature Gran % (Auto) 2.2 Neut % (Auto) 74.3 Lymph % (Auto) 8.7 [place] % (Auto) 10.5 Eos % (Auto) 3.8 Baso % (Auto) 0.5 Neut # (Auto) 9.08 H Lymph # (Auto) 1.07 L [place] # (Auto) 1.29 H Eos # (Auto) 0.46 Baso # (Auto) 0.06 Immature Gran # (Auto) 0.27 H Platelet Estimate Normal Plt Count ,Citrate PT INR APTT PTT Ratio Fibrinogen Heparin Anti-Xa, LM Wt POC Sodium 137 Sodium 137 POC Potassium 4.9 Potassium 4.9 POC Chloride 109 Chloride 108 H Carbon Dioxide 20 L POC Total CO2 21 L Anion Gap 9 POC Anion Gap 13.0 L POC BUN 93 H BUN 82 H Creatinine 2.40 H POC Creatinine 2.5 H Est Cr Clr Drug Dosing 29.1 eGFR 27.28 BUN/Creatinine Ratio 34.2 H Glucose 136 H POC Glucose (other) 131 H Calcium 7.5 L POC Ioniz Calcium Maria G 1.08 L Phosphorus Magnesium Total Bilirubin 0.4 AST 14 ALT 14 Alkaline Phosphatase 58 Troponin I High Sens 40.7 H Total Protein 5.1 L Albumin 2.8 L Globulin 2.3 L Albumin/Globulin Ratio 1.2 Lipase 57 Urine Color Yellow Urine Appearance Clear Urine pH 5.0 Ur Specific [place] 1.018 Urine Protein 3+ H Urine Glucose (UA) Negative Urine Ketones Trace H Urine Blood Negative Urine Nitrite Negative Urine Bilirubin Negative Urine Urobilinogen Negative Ur Leukocyte Esterase 2+ H Urine WBC (Auto) 6-10 H Urine RBC (Auto) 0-2 U Hyaline Cast (Auto) 3-5 H U Epithel Cells (Auto) 0-2 Urine Bacteria (Auto) None Seen Urine Comment Blood Type Antibody Screen Crossmatch 10/24/24 10/24/24 10/24/24 00:06 01:23 03:35 WBC RBC Hgb 7.6 L POC Hgb Hct 24.4 L POC Hct MCV MCH MCHC RDW Std Deviation RDW Coeff of [place] Plt Count MPV Immature Gran % (Auto) Neut % (Auto) Lymph % (Auto) [place] % (Auto) Eos % (Auto) Baso % (Auto) Neut # (Auto) Lymph # (Auto) [place] # (Auto) Eos # (Auto) Baso # (Auto) Immature Gran # (Auto) Platelet Estimate Plt Count ,Citrate 129 L PT 11.7 INR 1.1 APTT 27 PTT Ratio 1.0 Fibrinogen 274 Heparin Anti-Xa, LM Wt 0.62 POC Sodium Sodium 138 POC Potassium Potassium 4.9 POC Chloride Chloride 110 H Carbon Dioxide 20 L POC Total CO2 Anion Gap 8 POC Anion Gap POC BUN BUN 94 H Creatinine 2.33 H POC Creatinine Est Cr Clr Drug Dosing 29.9 eGFR 28.27 BUN/Creatinine Ratio 40.3 H Glucose 130 H POC Glucose (other) Calcium 7.1 L POC Ioniz Calcium Maria G Phosphorus 3.7 Magnesium 1.3 L Total Bilirubin AST ALT Alkaline Phosphatase Troponin I High Sens 56.6 H* D Total Protein Albumin Globulin Albumin/Globulin Ratio Lipase Urine Color Urine Appearance Urine pH Ur Specific [place] Urine Protein Urine Glucose (UA) Urine Ketones Urine Blood Urine Nitrite Urine Bilirubin Urine Urobilinogen Ur Leukocyte Esterase Urine WBC (Auto) Urine RBC (Auto) U Hyaline Cast (Auto) U Epithel Cells (Auto) Urine Bacteria (Auto) Urine Comment Blood Type A Positive Antibody Screen NEGATIVE Crossmatch See Detail Diagnostic Findings Abdomen/Pelvis CT 10/23/24 22:24 Exam(s): CT ABDOMEN + PELVIS Without Contrast EXAM: CT Abdomen and Pelvis Without Intravenous Contrast CLINICAL HISTORY: Reason for exam: severe llq pain. TECHNIQUE: Axial computed tomography images of the abdomen and pelvis without intravenous contrast. CTDI is 28.04 mGy and DLP is 1297.8 mGy-cm. Automated exposure control was utilized for the study. A dose lowering technique was utilized adhering to the principles of ALARA. COMPARISON: None FINDINGS: Lung bases: Bibasilar atelectasis. ABDOMEN: Liver: Unremarkable. Gallbladder and bile ducts: Unremarkable. No calcified stones. No ductal dilation. Pancreas: Unremarkable. No ductal dilation. Spleen: Unremarkable. No splenomegaly. Adrenals: Unremarkable. No mass. Kidneys and ureters: Unremarkable. No hydronephrosis or obstructing ureteral stone. Stomach and bowel: Clips seen along the stomach. Hyperdense material within the stomach could represent ingested material versus blood products. Blood products within the gastric wall are not excluded. Evaluation is somewhat limited without IV contrast. No free intraperitoneal blood identified. Diverticulosis without evidence of diverticulitis. No obstruction. PELVIS: Appendix: Normal appendix. Bladder: Unremarkable. No stones. Reproductive: Borderline size of the prostate. ABDOMEN and PELVIS: Intraperitoneal space: Unremarkable. No free air. No significant fluid collection. Bones/joints: Right convex curvature of the spine. Degenerative changes of the spine. Postsurgical changes at L5-S1. Grade 1 anterolisthesis of L5 on S1. No acute fracture. No dislocation. Soft tissues: Mild bilateral gynecomastia. Bilateral fat containing inguinal hernias. Ventral hernia repair. Small fat containing umbilical and ventral hernias. Vasculature: Atherosclerotic changes of the vasculature. No abdominal aortic aneurysm. Lymph nodes: Unremarkable. No enlarged lymph nodes. IMPRESSION: Clips seen along the stomach. Hyperdense material within the stomach could represent ingested material versus blood products. Blood products within the gastric wall are not excluded. Evaluation is somewhat limited without IV contrast. No free intraperitoneal blood identified. Electronically signed by: London Nielsen M.D. 10/24/24 00:[address] 10/23/24 22:27 Exam(s): CT CHEST Without Contrast EXAM: CT Chest Without Intravenous Contrast CLINICAL HISTORY: Reason for exam: severe mid abd pain. hx AA. TECHNIQUE: Axial computed tomography images of the chest without intravenous contrast. Automated exposure control was utilized for the study. A dose lowering technique was utilized adhering to the principles of ALARA. COMPARISON: No relevant prior studies available. FINDINGS: Lungs: Linear atelectasis left upper lobe. No mass. Pleural space: Unremarkable. No significant effusion. No pneumothorax. Heart: Aortic valve calcification. Coronary artery calcifications. No cardiomegaly. No significant pericardial effusion. Bones/joints: Unremarkable. No acute fracture. Soft tissues: Unremarkable. Vasculature: 6.8 cm thoracic aortic aneurysm at the aortic arch. Lymph nodes: Unremarkable. No enlarged lymph nodes. Other findings: Dense calcification. IMPRESSION: No acute findings in the chest. 6.8 cm thoracic aortic aneurysm Electronically signed by: Lester Reinoso MD 10/24/24 00:06 AM Abdomen/Pelvis CTA 10/24/24 01:46 EXAM: CT angio abdomen pelvis w con CLINICAL HISTORY: GI bleed, ? active bleeding TECHNIQUE: Contrast enhanced thin slice CT angiography scan of the abdominal aorta was performed with intravenous contrast. Angiographic images were processed, 3D MIP images were acquired for interpretation. Contiguous axial images were obtained. Reformatted coronal and sagittal images were also reviewed. If IV contrast material had not been administered, the likelihood of detecting abnormalities relevant to the patients condition would have been substantially decreased. CT scan was performed according to ALARA (as low as reasonable achievable). COMPARISON: apr 10:38:01 FERRYBOAT CAPTAIN. FINDINGS: Diffuse atherosclerotic calcification is noted involving aorta. 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 Abdominal aorta is normal in course, calibre and opacification. Origin of coeliac artery, superior mesenteric artery , bilateral main renal and lumbar arteries shows diffuse atherosclerotic calcification with mild to moderate stenosis. No evidence of end organ ischemia seen. Bilateral common, external and internal iliac arteries shows diffuse atherosclerotic calcification without significant stenosis. About 11 x 9 mm sized hypodense lesion is noted involving segment IV of liver - appear simple cyst. Multiple small uncomplicated sigmoid colonic diverticulosis Solid abdominal organs including liver, spleen, pancreas and bilateral kidneys reveal no significant abnormality. Bowel loops are grossly unremarkable. No evidence of ascites. IMPRESSION: 1. Diffuse atherosclerotic calcification is noted involving aorta and its all major branches-stable. 2. 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 3. Small hepatic cyst.-stable. 4. Uncomplicated colonic diverticulosis.-stable. 5. No obvious extravasation of contrast/active bleed. Electronically signed by Aiden Licona 10-24-2024 03:09 AM PG Care Time/CCT Total # of Minutes Spent Total Time Spent with Patient: Total time spent is greater than 50% in coordination of care (as documented) at patient's floor/unit and/or counseling patient: Coding Level of Care Code 48775 INT INP/OBS CARE 3/75MIN Diagnoses Acute GI bleeding K92.2
[2024-10-24] MEDS ORDERED: STAT IV Infusion **Titration per Protocol STA (06:30)
--- NOTE | 2024-10-24 06:30 | GI REPORT ---
[facility] Patient: SAMARIA MAYA : 1950 Sex at : Male Age: 74 Years Procedure: Upper GI endoscopy Date: 10/24/2024 Attending Physician: Juice Marshall MD Referring MD: Aspen Kumar MD Indications: - Hematemesis Medications: - General Anesthesia Complications: - No immediate complications. Estimated Blood Loss: - Estimated blood loss was minimal. Procedure: - Prior to the procedure, a History and Physical was performed, and patient medications and allergies were reviewed. The patient's tolerance of previous anesthesia was also reviewed. The risks and benefits of the procedure and the sedation options and risks were discussed with the patient. All questions were answered, and informed consent was obtained. [Anticoagulant Agents] [Days Prior to Procedure]. [ASA Grade]. After reviewing the risks and benefits, the patient was deemed in satisfactory condition to undergo the procedure. - The egd scope was introduced through the mouth and advanced to the jejunum. - The upper GI endoscopy was accomplished without difficulty. Endoscope switched to pediatric colonoscopy to examine distal duodenum and proximal jejunum. - The patient tolerated the procedure well. Findings: - The examined esophagus was normal. - Dark and Clotted blood was found in the gastric fundus and in the gastric body. Patient re-position to get good views of fundus. No bleeding site identified. - Dark and Clotted blood was found in the first portion of the duodenum and in the second portion of the duodenum. No active bleeding site. - Large adherent clot blood was found in the Third/fourth portion of the duodenum concerning for an Aorto-enteric fistula.. Impression: - Normal esophagus. - Clotted blood in the gastric fundus and in the gastric body. - Old blood in the first and second portion of the duodenum. 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 - No specimens collected. Recommendation: - Resume previous diet. Keep NPO. Maintain low normal blood pressure. Emergency transfer to tertiary care facility. - Patient has a contact number available for emergencies. The signs and symptoms of potential delayed complications were discussed with the patient. Return to normal activities tomorrow. Written discharge instructions were provided to the patient. Procedure Code(s): - 34878, Esophagogastroduodenoscopy, flexible, transoral; diagnostic, including collection of specimen(s) by brushing or washing, when performed (separate procedure) Diagnosis Code(s): - K92.0, Hematemesis - K92.2, Gastrointestinal hemorrhage, unspecified CPT(R) - 2022 copyright [employer]. All Rights Reserved. The CPT codes, CCI edits and ICD codes generated are intended as suggestions and were generated based on input data. These codes are preliminary and upon residential direct support professional review may be revised to meet current compliance and payer requirements. The provider is responsible for the final determination of appropriate codes, and modifiers. Juice Marshall MD This document has been electronically signed. Note Initiated:10/24/2024 Note Completed:10/24/2024 6:29 AM \\[email or web address]\Central\InterfaceData\Data\Provation\Results\LIVE\[id number]
--- NOTE | 2024-10-24 06:41 | Communication Note ---
Date of Service: October 24, 2024 Post procedure- Dr. Marshall updated myself as well as daughter. 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 Currently awaiting call back from transfer center [facility] for discussion with CICU and Vascular Sugery requested. - Patient significantly hypertensive at this time- will initiate Cardene infusi on with goal of SBP 90-140, if difficult to control with that will add on esmolol as well - avoid long acting medications at this time incase he re-bleeds/hemorrhages. - My [place] has been updated on current situation [place] [facility] [place] [facility] [place]- Dr George Rolle. Case reviewed with current concerns for aortoenteric fistula. Patient was last seen there in 2008 and deemed not a candidate for surgical repair. At this time it is felt that the patient would not survive a surgery or if a procedure could be done to intervene. Recommends treatment of blood pressure and palliative care. He will discuss the case with his partner- Dr. Suazo, who performed the initial aneurysm repair, and will call us back with any other input or recommendations. - Daughters at the bedside and discussed this with Mikhail as well. They understand that this is has a high mortality- with his pulmonary disease, unlikely to come off the ventilator, aortic valve disease, and aortic aneurysm disease that likely unable to survive a surgery, and this magnitude of surgery will likely end with renal failure, for which the patient has declined dialysis in previous discussions. They are going to discuss as a family and decide on options. - At this time we can conservatively treat his blood pressure, n/v, and blood transfusions for minor episodes - If he were to have a major episode and not stop bleeding then transition to palliative care /[facility]APELER - See further discussions of plan of care in progress note. Ernst LIVINGSTON (ACNP-)
[2024-10-24] MEDS: GLUCAGON FOR INJ 1 MG VIAL ONE (07:09)
[2024-10-24] MEDS: UMECLIDINIUM/VILANTEROL 62.5/25MCG 7 PUFFS/INHALER INH SCH (07:13)
[2024-10-24] MEDS: FLUTICASONE FUROATE 100MCG 14 PUFFS/INHALER INH SCH (07:13)
[2024-10-24 07:19] LABS: Hematocrit (blood only) 31.7 % (42.0-52.0); Hemoglobin 10.3 g/dl (14.0-18.0); Mean Corpuscular Hemoglobin 33.4 pg (25.0-34.0); Mean Corpuscular Volume 102.9 fL (80.0-100.0); Platelet Count 133 K/uL (130-400); RDW Standard Deviation 57.0 fL (36.4-46.3); Red Blood Count 3.08 M/uL (4.70-6.10); White Blood Count 13.27 K/ul (4.8-10.8)
[2024-10-24 07:20] LABS: Immature Granulocytes # (auto) 0.37 K/uL (0.01-0.20); Immature Granulocytes % (auto) 2.8 %; Polychromasia 1+
[2024-10-24] MEDS: ALBUT/IPRATROP 3MG/0.5MG NEB 3 ML VIAL INH PRN (08:14)
[2024-10-24] MEDS: MAGNESIUM SULFATE / D5W 1 GM/100 ML BAG IV SCH (08:38)
[2024-10-24] MEDS ORDERED: NON-FORMULARY MEDICATION (Fluticasone-Umeclidin-Vilanter [Trelegy Ellipta] 100-62.5-25 mcg INH SCH (09:00)
[2024-10-24 10:39] LABS: Hematocrit (blood only) 30.7 % (42.0-52.0); Hemoglobin 10.3 g/dl (14.0-18.0); Mean Corpuscular Hemoglobin 33.3 pg (25.0-34.0); Mean Corpuscular Volume 99.4 fL (80.0-100.0); RDW Standard Deviation 57.2 fL (36.4-46.3); Red Blood Count 3.09 M/uL (4.70-6.10); White Blood Count 14.35 K/ul (4.8-10.8)
[2024-10-24 10:41] LABS: Immature Granulocytes # (auto) 0.26 K/uL (0.01-0.20); Immature Granulocytes % (auto) 1.8 %; Polychromasia 1+
[2024-10-24] MEDS ORDERED: DEXTROSE 50% 50 ML SYRINGE IV PRN ×2 (11:06→21:15)
[2024-10-24] MEDS: INSULIN ASPART PER UNIT CHARGE SC SCH (11:43)
--- NOTE | 2024-10-24 11:45 | Hospitalist Progress Note ---
Date of Service October 24, 2024 Assessment & Plan (1) Acute GI bleeding: Plan: 74-year-old male with past medical history significant for chronic hypoxic respiratory failure on home oxygen, COPD, obstructive sleep apnea on CPAP, dyslipidemia, GI bleeds in the past (December 2022), hyperparathyroidism, idiopathic chronic gout, aneurysm of subclavian artery, hypertension, stenosis of left renal artery, abdominal aortic aneurysm, thoracic aorta atherosclerosis, severe aortic stenosis, shaggy aorta syndrome, chronic diastolic CHF, history of supraventricular tachycardia, chronic atrial fibrillation, CKD stage IV, status post lumbar disc excision, iron deficiency anemia due to chronic blood loss, monoclonal paraproteinemia, history of shingles, history of CVA, history of biliary stent insertion, history of retinal artery occlusion who lives at home with his and sometimes uses walker to ambulate comes because of abdominal pain and back pain admitted through the ER with a large amount of hematemesis. He was running high BPs and started on a Nicardipine gtt. Acute GI bleeding Continue care in ICU CM help appreciated Large amount of hematemesis in the ER and became hypotensive and tachycardic. Hemoglobin was 9.8 on presentation repeat was 7.6. This AM 10.3 Eliquis on hold, S/P Kcentra was given along with TXA and IV fluids. S/P 2 units of PRBCs . GI consulted and EGD completed S/P CTA abdomen & pelvis Continue Protonix drip and Sandostatin drip VSS currently NPO Hypocalcemia Calcium 7.5 Received calcium gluconate Monitor Chronic hypoxic respiratory failure on home oxygen History of COPD Continue home inhalers Nebs as needed Continue 3 liters. 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 If patient experience recurrent TIA/CVA symptoms despite reduced dose Eliquis to consider resumption of antiplatelet therapy. History of asymptomatic ventricular tachycardia and supraventricular tachycardia On metoprolol to restart when able to History of CVAs multiple Currently Eliquis on hold for GI bleed Restart statin when able to Hyperlipidemia Restart statin when able to Hypertension Restart diuretics and metoprolol when able to Currently on Nicardipine gtt. Wean as able In the past amlodipine resulted in fluid retention. Isosorbide resulted in significant headaches. Gout Allopurinol on hold for now DVT prophylaxis SCDs Disposition ICU Level 1 full code A total of 57 minutes spent in the care coordination for this patient. Admission and Anticipated Discharge Date Admission Date: October 24, 2024 Subjective Mr. Fung was seen in the ICU with nursing and his daughter. He remains on a Nicardipine and Protonix gtt. No further hematemesis or lower GI bleeding(he had none). S/P two units of PRBCs. EGD showed - Clotted blood in the gastric fundus and in the gastric body, old blood in the first and second portion of the duodenum, adherent clot in third/fourth portion of duodenum concerning for an aorto-enteric fistula. No specimens were collected. Initial concern was for the possible fistula, [facility] [place] and recommend to continue tx here. Mikhail feels much better this AM Review of Systems Review of Systems: Constitutional- no fever; no chills Eyes- no acute visual changes ENT- no complaints Pulmonary- no cough, no wheezing, he has chronic shortness of breath and is on 3 liters of O2 at home Cardiac- no chest pain, no palpitations, no orthopnea, mild dependent edema GI- no further nausea or coffee ground vomiting, no diarrhea, no melena, no hematochezia - no hematuria Neuro- no headaches, no focal neurologic symptoms Psych- no anxiety, no depression Physical Exam Physical Exam: General- adult elderly male seen at bedside in the ICU Head- atraumatic Eyes- PERRL, EOMI, anicteric ENT- oropharynx clear Neck- supple, no JVD, no adenopathy, no thyromegaly; Lungs- clear to auscultation and percussion Heart- regular rhythm; no murmur, no gallop, no rub appreciated Abdomen- normal bowel sounds, soft, nontender, no masses or hepatosplenomegaly Extremities- trace pretibial edema, no calf tenderness; peripheral pulses intact Neuro- alert, oriented x 3; PERRL, EOMI; no facial palsy; no dysarthria; motor 5/5 bilaterally; Skin- warm & dry Results & Data Results & Data Vital Signs (Past 12 Hours) Vital Signs Temp Pulse Pulse Resp BP BP BP 10/24/24 11:03 36.5 C 10/24/24 11:00 117/73 10/24/24 10:57 80 24 10/24/24 10:45 132/74 10/24/24 10:45 79 19 10/24/24 10:30 80 18 10/24/24 10:30 110/68 10/24/24 10:15 120/70 10/24/24 10:12 79 17 10/24/24 10:00 127/73 10/24/24 09:57 79 20 10/24/24 09:45 132/80 10/24/24 09:39 82 26 H 10/24/24 09:36 80 26 H 10/24/24 09:15 145/78 H 10/24/24 09:09 81 17 10/24/24 09:03 80 22 10/24/24 09:01 116/71 10/24/24 08:51 83 20 10/24/24 08:45 127/72 10/24/24 08:45 82 21 10/24/24 08:42 81 16 10/24/24 08:30 110/69 10/24/24 08:27 81 17 10/24/24 08:16 79 21 10/24/24 08:15 110/72 10/24/24 08:09 81 25 H 10/24/24 08:00 103/59 L 10/24/24 08:00 10/24/24 08:00 36.5 C 10/24/24 07:48 82 24 10/24/24 07:45 120/71 10/24/24 07:45 83 24 10/24/24 07:33 85 18 10/24/24 07:31 126/78 10/24/24 07:15 87 24 10/24/24 07:15 181/87 H 10/24/24 07:00 85 28 H 10/24/24 07:00 148/92 H 10/24/24 06:41 36.6 C 88 20 209/114 H 10/24/24 06:31 36.6 C 90 20 10/24/24 05:00 159/88 H 10/24/24 04:51 84 30 H 10/24/24 04:45 82 21 10/24/24 04:45 145/83 H 10/24/24 04:45 145/83 H 10/24/24 04:45 145/83 H 10/24/24 04:44 36.6 C 80 20 125/74 10/24/24 04:42 81 21 10/24/24 04:24 83 29 H 10/24/24 04:15 167/103 H 10/24/24 04:12 86 30 H 10/24/24 04:01 162/85 H 10/24/24 04:01 162/85 H 10/24/24 04:01 162/85 H 10/24/24 03:42 84 32 H 10/24/24 03:38 36.6 C 85 20 118/80 10/24/24 03:34 118/80 10/24/24 03:34 118/80 10/24/24 03:33 87 29 H 10/24/24 03:30 10/24/24 03:30 36.6 C 87 18 118/80 10/24/24 03:16 36.5 C 88 22 143/89 H 10/24/24 03:14 36.5 C 88 22 143/89 H 10/24/24 03:03 79 24 10/24/24 03:00 124/78 10/24/24 03:00 124/78 10/24/24 03:00 79 22 124/78 10/24/24 02:57 81 20 10/24/24 02:51 79 20 10/24/24 02:45 137/77 10/24/24 02:45 137/77 10/24/24 02:45 36.5 C 78 24 137/77 10/24/24 02:42 79 15 10/24/24 02:39 78 28 H 10/24/24 02:31 131/68 10/24/24 02:31 131/68 10/24/24 02:30 78 24 131/68 10/24/24 02:15 36.7 C 81 24 124/73 10/24/24 02:12 82 15 10/24/24 02:12 82 10/24/24 02:11 123/79 10/24/24 02:11 123/79 10/24/24 02:00 36.6 C 82 20 123/79 10/24/24 01:55 121/76 10/24/24 01:50 91/51 L 10/24/24 01:50 91/51 L 10/24/24 01:48 84 23 10/24/24 01:46 86/52 L 10/24/24 01:46 86/52 L 10/24/24 01:45 84 27 H 10/24/24 01:43 36.6 C 85 18 85/54 L 10/24/24 01:39 85 25 H 10/24/24 01:39 85/54 L 10/24/24 01:39 85/54 L 10/24/24 01:38 98/65 L 10/24/24 01:38 98/65 L 10/24/24 01:33 79 29 H 10/24/24 01:30 133/85 10/24/24 01:30 133/85 10/24/24 01:06 82 24 10/24/24 01:00 93/68 L 10/24/24 01:00 93/68 L 10/24/24 00:58 80 16 114/84 10/24/24 00:48 81 27 H 10/24/24 00:45 82 27 H 10/24/24 00:31 114/84 10/24/24 00:31 114/84 10/24/24 00:30 82 35 H 10/24/24 00:21 81 21 10/24/24 00:18 80 24 10/24/24 00:03 81 20 95/61 L 10/24/24 00:00 95/61 L Pulse Ox O2 Del Method O2 Flow Rate 10/24/24 11:03 10/24/24 11:00 10/24/24 10:57 10/24/24 10:45 10/24/24 10:45 95 10/24/24 10:30 92 10/24/24 10:30 10/24/24 10:15 10/24/24 10:12 95 10/24/24 10:00 10/24/24 09:57 95 10/24/24 09:45 10/24/24 09:39 95 10/24/24 09:36 96 10/24/24 09:15 10/24/24 09:09 95 10/24/24 09:03 97 10/24/24 09:01 10/24/24 08:51 94 10/24/24 08:45 10/24/24 08:45 94 10/24/24 08:42 95 Nasal Cannula 3 10/24/24 08:30 10/24/24 08:27 94 10/24/24 08:16 94 Nasal Cannula 4 10/24/24 08:15 10/24/24 08:09 95 10/24/24 08:00 10/24/24 08:00 Nasal Cannula 3 10/24/24 08:00 10/24/24 07:48 96 Nasal Cannula 4 10/24/24 07:45 10/24/24 07:45 95 10/24/24 07:33 96 10/24/24 07:31 10/24/24 07:15 99 10/24/24 07:15 10/24/24 07:00 99 Oxymask 6 10/24/24 07:00 10/24/24 06:41 99 Oxymask 6 10/24/24 06:31 99 Oxymask 6 10/24/24 05:00 10/24/24 04:51 96 10/24/24 04:45 96 10/24/24 04:45 10/24/24 04:45 10/24/24 04:45 10/24/24 04:44 96 4 10/24/24 04:42 96 10/24/24 04:24 98 10/24/24 04:15 10/24/24 04:12 98 10/24/24 04:01 10/24/24 04:01 10/24/24 04:01 10/24/24 03:42 98 10/24/24 03:38 97 4 10/24/24 03:34 10/24/24 03:34 10/24/24 03:33 98 10/24/24 03:30 Nasal Cannula 4 10/24/24 03:30 97 Nasal Cannula 3 10/24/24 03:16 98 4 10/24/24 03:14 98 4 10/24/24 03:03 98 10/24/24 03:00 10/24/24 03:00 10/24/24 03:00 99 Nasal Cannula 4 10/24/24 02:57 97 10/24/24 02:51 100 10/24/24 02:45 10/24/24 02:45 10/24/24 02:45 100 4 10/24/24 02:42 99 10/24/24 02:39 100 10/24/24 02:31 10/24/24 02:31 10/24/24 02:30 98 Nasal Cannula 4 10/24/24 02:15 96 4 10/24/24 02:12 96 10/24/24 02:12 10/24/24 02:11 10/24/24 02:11 10/24/24 02:00 96 10/24/24 01:55 10/24/24 01:50 10/24/24 01:50 10/24/24 01:48 94 10/24/24 01:46 10/24/24 01:46 10/24/24 01:45 94 10/24/24 01:43 95 4 10/24/24 01:39 94 10/24/24 01:39 10/24/24 01:39 10/24/24 01:38 10/24/24 01:38 10/24/24 01:33 92 10/24/24 01:30 10/24/24 01:30 10/24/24 01:06 95 10/24/24 01:00 10/24/24 01:00 10/24/24 00:58 98 Nasal Cannula 2 10/24/24 00:48 94 10/24/24 00:45 94 10/24/24 00:31 10/24/24 00:31 10/24/24 00:30 10/24/24 00:21 93 10/24/24 00:18 94 10/24/24 00:03 94 Nasal Cannula 2 10/24/24 00:00 Diagnostic Findings Laboratory Results WBC 14.35 K/ul (4.8-10.8) H 10/24/24 09:51 RBC 3.09 M/uL (4.70-6.10) L 10/24/24 09:51 Hgb 10.3 g/dl (14.0-18.0) L 10/24/24 09:51 POC Hgb 8.5 g/dl (14.0-18.0) L 10/23/24 22:23 Hct 30.7 % (42.0-52.0) L 10/24/24 09:51 POC Hct 25 % (42-52) L 10/23/24 22:23 MCV 99.4 fL (80.0-100.0) 10/24/24 09:51 MCH 33.3 pg (25.0-34.0) 10/24/24 09:51 MCHC 33.6 g/dL (32.0-36.0) 10/24/24 09:51 RDW Std Deviation 57.2 fL (36.4-46.3) H 10/24/24 09:51 RDW Coeff of Chaka 15.9 % (11.5-14.5) H 10/24/24 09:51 Plt Count K/uL (130-400) 10/24/24 09:51 MPV fL (9.4-12.4) 10/24/24 09:51 Immature Gran % (Auto) 1.8 % 10/24/24 09:51 Neut % (Auto) 91.8 % 10/24/24 09:51 Lymph % (Auto) 2.7 % 10/24/24 09:51 Terry % (Auto) 3.3 % 10/24/24 09:51 Eos % (Auto) 0.1 % 10/24/24 09:51 Baso % (Auto) 0.3 % 10/24/24 09:51 Neut # (Auto) 13.17 K/uL (1.40-6.50) H 10/24/24 09:51 Lymph # (Auto) 0.39 K/uL (1.20-3.40) L 10/24/24 09:51 Terry # (Auto) 0.48 K/uL (0.11-0.59) 10/24/24 09:51 Eos # (Auto) 0.01 K/uL (0.00-0.50) 10/24/24 09:51 Baso # (Auto) 0.04 K/uL (0.00-0.20) 10/24/24 09:51 Immature Gran # (Auto) 0.26 K/uL (0.01-0.20) H 10/24/24 09:51 Platelet Estimate Normal (Normal) 10/23/24 22:19 Plt Count ,Citrate Cancelled 10/24/24 06:38 Polychromasia 1+ 10/24/24 09:51 Echinocytes 1+ 10/24/24 09:51 PT 11.7 Seconds (9.0-12.0) 10/24/24 03:35 INR 1.1 (0.9-1.1) 10/24/24 03:35 APTT 27 Seconds (21-31) 10/24/24 03:35 PTT Ratio 1.0 10/24/24 03:35 Fibrinogen 274 mg/dl (184-400) 10/24/24 03:35 Heparin Anti-Xa, LM Wt 0.62 IU/ML (< 0.10) 10/24/24 03:35 POC Sodium 137 mmol/L (135-144) 10/23/24 22:23 Sodium 138 mmol/L (136-145) 10/24/24 03:35 POC Potassium 4.9 mmol/L (3.3-5.0) 10/23/24 22:23 Potassium 4.9 mmol/L (3.5-5.1) 10/24/24 03:35 POC Chloride 109 mmol/L (101-112) 10/23/24 22:23 Chloride 110 mmol/L (98-107) H 10/24/24 03:35 Carbon Dioxide 20 mmol/L (21-32) L 10/24/24 03:35 POC Total CO2 21 mmol/L (24-31) L 10/23/24 22:23 Anion Gap 8 (3-11) 10/24/24 03:35 POC Anion Gap 13.0 mmol/L (16-25) L 10/23/24 22:23 POC BUN 93 mg/dl (7-18) H 10/23/24 22:23 BUN 94 mg/dl (6-23) H 10/24/24 03:35 Creatinine 2.33 mg/dl (0.6-1.4) H 10/24/24 03:35 POC Creatinine 2.5 mg/dl (0.6-1.3) H 10/23/24 22:23 Est Cr Clr Drug Dosing 29.9 ml/min 10/24/24 03:35 eGFR 28.27 10/24/24 03:35 BUN/Creatinine Ratio 40.3 (10-20) H 10/24/24 03:35 Glucose 130 mg/dl (70-99(Fasting)) H 10/24/24 03:35 POC Glucose 208 mg/dl (70-99) H 10/24/24 10:57 POC Glucose (other) 131 mg/dl (70-99) H 10/23/24 22:23 Calcium 7.1 mg/dl (8.6-10.3) L 10/24/24 03:35 POC Ioniz Calcium Maria G 1.08 mmol/l (1.12-1.32) L 10/23/24 22:23 Phosphorus 3.7 mg/dl (2.5-4.9) 10/24/24 03:35 Magnesium 1.3 mg/dl (1.7-2.4) L 10/24/24 03:35 Total Bilirubin 0.4 mg/dl (0.2-1.0) 10/23/24 22:19 AST 14 U/L (13-39) 10/23/24 22:19 ALT 14 U/L (7-52) 10/23/24 22:19 Alkaline Phosphatase 58 U/L (34-104) 10/23/24 22:19 Troponin I High Sens 56.6 pg/ml (0-20) H* D 10/24/24 00:06 Total Protein 5.1 gm/dl (6.0-8.3) L 10/23/24 22:19 Albumin 2.8 gm/dl (3.4-5.0) L 10/23/24 22:19 Globulin 2.3 gm/dl (2.5-4.0) L 10/23/24 22:19 Albumin/Globulin Ratio 1.2 (0.9-2) 10/23/24 22:19 Lipase 57 U/L (11-82) 10/23/24 22:19 Urine Color Yellow 10/23/24 23:41 Urine Appearance Clear (Clear) 10/23/24 23:41 Urine pH 5.0 (4.5-7.5) 10/23/24 23:41 Ur Specific Anita 1.018 (1.000-1.030) 10/23/24 23:41 Urine Protein 3+ (Negative) H 10/23/24 23:41 Urine Glucose (UA) Negative (Negative) 10/23/24 23:41 Urine Ketones Trace (Negative) H 10/23/24 23:41 Urine Blood Negative (Negative) 10/23/24 23:41 Urine Nitrite Negative (Negative) 10/23/24 23:41 Urine Bilirubin Negative (Negative) 10/23/24 23:41 Urine Urobilinogen Negative (Negative) 10/23/24 23:41 Ur Leukocyte Esterase 2+ (Negative) H 10/23/24 23:41 Urine WBC (Auto) 6-10 /hpf (0-5) H 10/23/24 23:41 Urine RBC (Auto) 0-2 /hpf (0-2) 10/23/24 23:41 U Hyaline Cast (Auto) 3-5 /lpf (0-2) H 10/23/24 23:41 U Epithel Cells (Auto) 0-2 /hpf (0-2) 10/23/24 23:41 Urine Bacteria (Auto) None Seen (None Seen) 10/23/24 23:41 Urine Comment 10/23/24 23:41 Nasal Screen MRSA (PCR) Negative (Negative) 10/24/24 03:40 Blood Type A Positive 10/24/24 00:06 Antibody Screen NEGATIVE 10/24/24 00:06 Crossmatch See Detail 10/24/24 00:06 Impressions Abdomen/Pelvis CT 10/23/24 22:24 Exam(s): CT ABDOMEN + PELVIS Without Contrast EXAM: CT Abdomen and Pelvis Without Intravenous Contrast CLINICAL HISTORY: Reason for exam: severe llq pain. TECHNIQUE: Axial computed tomography images of the abdomen and pelvis without intravenous contrast. CTDI is 28.04 mGy and DLP is 1297.8 mGy-cm. Automated exposure control was utilized for the study. A dose lowering technique was utilized adhering to the principles of ALARA. COMPARISON: None FINDINGS: Lung bases: Bibasilar atelectasis. ABDOMEN: Liver: Unremarkable. Gallbladder and bile ducts: Unremarkable. No calcified stones. No ductal dilation. Pancreas: Unremarkable. No ductal dilation. Spleen: Unremarkable. No splenomegaly. Adrenals: Unremarkable. No mass. Kidneys and ureters: Unremarkable. No hydronephrosis or obstructing ureteral stone. Stomach and bowel: Clips seen along the stomach. Hyperdense material within the stomach could represent ingested material versus blood products. Blood products within the gastric wall are not excluded. Evaluation is somewhat limited without IV contrast. No free intraperitoneal blood identified. Diverticulosis without evidence of diverticulitis. No obstruction. PELVIS: Appendix: Normal appendix. Bladder: Unremarkable. No stones. Reproductive: Borderline size of the prostate. ABDOMEN and PELVIS: Intraperitoneal space: Unremarkable. No free air. No significant fluid collection. Bones/joints: Right convex curvature of the spine. Degenerative changes of the spine. Postsurgical changes at L5-S1. Grade 1 anterolisthesis of L5 on S1. No acute fracture. No dislocation. Soft tissues: Mild bilateral gynecomastia. Bilateral fat containing inguinal hernias. Ventral hernia repair. Small fat containing umbilical and ventral hernias. Vasculature: Atherosclerotic changes of the vasculature. No abdominal aortic aneurysm. Lymph nodes: Unremarkable. No enlarged lymph nodes. IMPRESSION: Clips seen along the stomach. Hyperdense material within the stomach could represent ingested material versus blood products. Blood products within the gastric wall are not excluded. Evaluation is somewhat limited without IV contrast. No free intraperitoneal blood identified. Electronically signed by: London Nielsen M.D. 10/24/24 00:[address] 10/23/24 22:27 Exam(s): CT CHEST Without Contrast EXAM: CT Chest Without Intravenous Contrast CLINICAL HISTORY: Reason for exam: severe mid abd pain. hx AA. TECHNIQUE: Axial computed tomography images of the chest without intravenous contrast. Automated exposure control was utilized for the study. A dose lowering technique was utilized adhering to the principles of ALARA. COMPARISON: No relevant prior studies available. FINDINGS: Lungs: Linear atelectasis left upper lobe. No mass. Pleural space: Unremarkable. No significant effusion. No pneumothorax. Heart: Aortic valve calcification. Coronary artery calcifications. No cardiomegaly. No significant pericardial effusion. Bones/joints: Unremarkable. No acute fracture. Soft tissues: Unremarkable. Vasculature: 6.8 cm thoracic aortic aneurysm at the aortic arch. Lymph nodes: Unremarkable. No enlarged lymph nodes. Other findings: Dense calcification. IMPRESSION: No acute findings in the chest. 6.8 cm thoracic aortic aneurysm Electronically signed by: Lester Reinoso MD 10/24/24 00:06 AM Abdomen/Pelvis CTA 10/24/24 01:46 EXAM: CT angio abdomen pelvis w con CLINICAL HISTORY: GI bleed, ? active bleeding TECHNIQUE: Contrast enhanced thin slice CT angiography scan of the abdominal aorta was performed with intravenous contrast. Angiographic images were processed, 3D MIP images were acquired for interpretation. Contiguous axial images were obtained. Reformatted coronal and sagittal images were also reviewed. If IV contrast material had not been administered, the likelihood of detecting abnormalities relevant to the patients condition would have been substantially decreased. CT scan was performed according to ALARA (as low as reasonable achievable). COMPARISON: apr 10:38:01 ENDOSCOPY RN. FINDINGS: Diffuse atherosclerotic calcification is noted involving aorta. 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 Abdominal aorta is normal in course, calibre and opacification. Origin of coeliac artery, superior mesenteric artery , bilateral main renal and lumbar arteries shows diffuse atherosclerotic calcification with mild to moderate stenosis. No evidence of end organ ischemia seen. Bilateral common, external and internal iliac arteries shows diffuse atherosclerotic calcification without significant stenosis. About 11 x 9 mm sized hypodense lesion is noted involving segment IV of liver - appear simple cyst. Multiple small uncomplicated sigmoid colonic diverticulosis Solid abdominal organs including liver, spleen, pancreas and bilateral kidneys reveal no significant abnormality. Bowel loops are grossly unremarkable. No evidence of ascites. IMPRESSION: 1. Diffuse atherosclerotic calcification is noted involving aorta and its all major branches-stable. 2. 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 3. Small hepatic cyst.-stable. 4. Uncomplicated colonic diverticulosis.-stable. 5. No obvious extravasation of contrast/active bleed. Electronically signed by Aiden Licona 10-24-2024 03:09 AM
--- NOTE | 2024-10-24 17:39 | Electrocardiogram Report ---
Test Reason : Blood Pressure : */* mmHG Vent. Rate : 85 BPM Atrial Rate : 85 BPM P-R Int : 134 ms QRS Dur : 84 ms QT Int : 382 ms P-R-T Axes : -13 20 28 degrees QTcB Int : 454 ms Normal sinus rhythm Normal ECG When compared with ECG of 26-Apr-2024 08:41, Sinus rhythm has replaced Atrial fibrillation Confirmed by Robby Mccoy ([id number]) on 10/24/2024 5:39:14 PM Referred By: REFERRED SELF Confirmed By: Robby Mccoy
[2024-10-24 18:33] LABS: Anion Gap 7.0 (3-11); Blood Urea Nitrogen 98.0 mg/dl (6-23); Calcium 7.8 mg/dl (8.6-10.3); Carbon Dioxide 19.0 mmol/L (21-32); Chloride 112.0 mmol/L (98-107); Creatinine Clr Calc Pharmacy 29.2 ml/min; Glucose 141.0 mg/dl (70-99(Fasting)); Potassium 4.9 mmol/L (3.5-5.1); Sodium 138.0 mmol/L (136-145)
[2024-10-24 18:38] LABS: Hematocrit (blood only) 26.8 % (42.0-52.0); Hemoglobin 9.1 g/dl (14.0-18.0); Mean Corpuscular Hemoglobin 33.6 pg (25.0-34.0); Mean Corpuscular Volume 98.9 fL (80.0-100.0); Platelet Count 120 K/uL (130-400); RDW Standard Deviation 57.3 fL (36.4-46.3); Red Blood Count 2.71 M/uL (4.70-6.10); White Blood Count 12.38 K/ul (4.8-10.8)
[2024-10-24] MEDS ORDERED: GLUCAGON FOR INJ 1 MG VIAL SQ PRN (21:15)
[2024-10-24] MEDS ORDERED: GLUCOSE 10 TAB/TUBE PO PRN (21:15)
[2024-10-24] MEDS ORDERED: CARBOHYDRATES FOR HYPOGLYCEMIA PO PRN (21:15)
[2024-10-24] MEDS ORDERED: GLUCOSE 40% GEL 15 GM TUBE PO PRN (21:15)
--- NOTE | 2024-10-24 21:42 | Anesthesiology Progress Note ---
Date of Service October 24, 2024 Anesthesia Post Procedure Vital Signs Vital Signs: Temp Pulse Pulse Resp BP BP BP 10/24/24 20:00 10/24/24 18:00 79 22 10/24/24 18:00 112/62 10/24/24 17:45 78 23 10/24/24 17:12 78 22 10/24/24 16:30 115/62 10/24/24 16:30 115/62 10/24/24 16:30 24 10/24/24 16:12 78 24 10/24/24 16:00 119/66 10/24/24 16:00 36.9 C 10/24/24 16:00 78 10/24/24 15:57 82 20 10/24/24 15:36 77 15 10/24/24 15:30 112/57 L 10/24/24 15:21 76 17 10/24/24 15:03 77 19 10/24/24 15:00 115/64 10/24/24 14:51 78 18 10/24/24 14:30 77 20 10/24/24 14:30 114/60 10/24/24 14:03 77 24 10/24/24 14:00 107/79 10/24/24 13:57 79 19 10/24/24 13:33 78 20 10/24/24 13:31 110/67 10/24/24 13:27 85 21 10/24/24 13:15 78 21 10/24/24 13:15 104/59 L 10/24/24 13:03 80 21 10/24/24 13:00 118/64 10/24/24 12:57 79 19 10/24/24 12:42 76 18 10/24/24 12:30 95/63 L 10/24/24 12:27 77 17 10/24/24 12:12 78 18 10/24/24 12:00 121/64 10/24/24 11:45 78 20 10/24/24 11:45 122/72 10/24/24 11:36 80 19 10/24/24 11:15 79 19 10/24/24 11:15 122/69 10/24/24 11:12 79 17 10/24/24 11:03 36.5 C 10/24/24 11:00 117/73 10/24/24 10:57 80 24 10/24/24 10:45 132/74 10/24/24 10:45 79 19 10/24/24 10:30 80 18 10/24/24 10:30 110/68 10/24/24 10:15 120/70 10/24/24 10:12 79 17 10/24/24 10:00 127/73 10/24/24 09:57 79 20 10/24/24 09:45 132/80 10/24/24 09:39 82 26 H 10/24/24 09:36 80 26 H 10/24/24 09:15 145/78 H 10/24/24 09:09 81 17 10/24/24 09:03 80 22 10/24/24 09:01 116/71 10/24/24 08:51 83 20 10/24/24 08:45 127/72 10/24/24 08:45 82 21 10/24/24 08:42 81 16 10/24/24 08:30 110/69 10/24/24 08:27 81 17 10/24/24 08:16 79 21 10/24/24 08:15 110/72 10/24/24 08:09 81 25 H 10/24/24 08:00 103/59 L 10/24/24 08:00 10/24/24 08:00 36.5 C 10/24/24 07:48 82 24 10/24/24 07:45 120/71 10/24/24 07:45 83 24 10/24/24 07:33 85 18 10/24/24 07:31 126/78 10/24/24 07:15 87 24 10/24/24 07:15 181/87 H 10/24/24 07:00 85 28 H 10/24/24 07:00 148/92 H 10/24/24 06:41 36.6 C 88 20 209/114 H 10/24/24 06:31 36.6 C 90 20 10/24/24 05:00 159/88 H 10/24/24 04:51 84 30 H 10/24/24 04:45 82 21 10/24/24 04:45 145/83 H 10/24/24 04:45 145/83 H 10/24/24 04:45 145/83 H 10/24/24 04:44 36.6 C 80 20 125/74 10/24/24 04:42 81 21 10/24/24 04:24 83 29 H 10/24/24 04:15 167/103 H 10/24/24 04:12 86 30 H 10/24/24 04:01 162/85 H 10/24/24 04:01 162/85 H 10/24/24 04:01 162/85 H 10/24/24 03:42 84 32 H 10/24/24 03:38 36.6 C 85 20 118/80 10/24/24 03:34 118/80 10/24/24 03:34 118/80 10/24/24 03:33 87 29 H 10/24/24 03:30 10/24/24 03:30 36.6 C 87 18 118/80 10/24/24 03:16 36.5 C 88 22 143/89 H 10/24/24 03:14 36.5 C 88 22 143/89 H 10/24/24 03:03 79 24 10/24/24 03:00 124/78 10/24/24 03:00 124/78 10/24/24 03:00 79 22 124/78 10/24/24 02:57 81 20 10/24/24 02:51 79 20 10/24/24 02:45 137/77 10/24/24 02:45 137/77 10/24/24 02:45 36.5 C 78 24 137/77 10/24/24 02:42 79 15 10/24/24 02:39 78 28 H 10/24/24 02:31 131/68 10/24/24 02:31 131/68 10/24/24 02:30 78 24 131/68 10/24/24 02:15 36.7 C 81 24 124/73 10/24/24 02:12 82 15 10/24/24 02:12 82 10/24/24 02:11 123/79 10/24/24 02:11 123/79 10/24/24 02:00 36.6 C 82 20 123/79 10/24/24 01:55 121/76 10/24/24 01:50 91/51 L 10/24/24 01:50 91/51 L 10/24/24 01:48 84 23 10/24/24 01:46 86/52 L 10/24/24 01:46 86/52 L 10/24/24 01:45 84 27 H 10/24/24 01:43 36.6 C 85 18 85/54 L 10/24/24 01:39 85 25 H 10/24/24 01:39 85/54 L 10/24/24 01:39 85/54 L 10/24/24 01:38 98/65 L 10/24/24 01:38 98/65 L 10/24/24 01:33 79 29 H 10/24/24 01:30 133/85 10/24/24 01:30 133/85 10/24/24 01:06 82 24 10/24/24 01:00 93/68 L 10/24/24 01:00 93/68 L 10/24/24 00:58 80 16 114/84 10/24/24 00:48 81 27 H 10/24/24 00:45 82 27 H 10/24/24 00:31 114/84 10/24/24 00:31 114/84 10/24/24 00:30 82 35 H 10/24/24 00:21 81 21 10/24/24 00:18 80 24 10/24/24 00:03 81 20 95/61 L 10/24/24 00:00 95/61 L 10/23/24 22:23 85 20 10/23/24 22:20 88 10/23/24 22:03 36.8 C 85 16 116/73 10/23/24 22:03 36.8 C 86 20 116/73 Pulse Ox O2 Del Method O2 Flow Rate 10/24/24 20:00 Nasal Cannula 3 10/24/24 18:00 96 10/24/24 18:00 10/24/24 17:45 97 10/24/24 17:12 95 10/24/24 16:30 10/24/24 16:30 10/24/24 16:30 95 10/24/24 16:12 95 Nasal Cannula 3 10/24/24 16:00 10/24/24 16:00 10/24/24 16:00 10/24/24 15:57 97 10/24/24 15:36 96 10/24/24 15:30 10/24/24 15:21 96 10/24/24 15:03 96 10/24/24 15:00 10/24/24 14:51 96 10/24/24 14:30 98 10/24/24 14:30 10/24/24 14:03 96 10/24/24 14:00 10/24/24 13:57 96 10/24/24 13:33 97 10/24/24 13:31 10/24/24 13:27 96 10/24/24 13:15 96 10/24/24 13:15 10/24/24 13:03 96 10/24/24 13:00 10/24/24 12:57 97 10/24/24 12:42 96 10/24/24 12:30 10/24/24 12:27 96 10/24/24 12:12 96 10/24/24 12:00 10/24/24 11:45 96 10/24/24 11:45 10/24/24 11:36 95 10/24/24 11:15 96 10/24/24 11:15 10/24/24 11:12 95 10/24/24 11:03 10/24/24 11:00 10/24/24 10:57 95 10/24/24 10:45 10/24/24 10:45 95 10/24/24 10:30 92 10/24/24 10:30 10/24/24 10:15 10/24/24 10:12 95 10/24/24 10:00 10/24/24 09:57 95 10/24/24 09:45 10/24/24 09:39 95 10/24/24 09:36 96 10/24/24 09:15 10/24/24 09:09 95 10/24/24 09:03 97 10/24/24 09:01 10/24/24 08:51 94 10/24/24 08:45 10/24/24 08:45 94 10/24/24 08:42 95 Nasal Cannula 3 10/24/24 08:30 10/24/24 08:27 94 10/24/24 08:16 94 Nasal Cannula 4 10/24/24 08:15 10/24/24 08:09 95 10/24/24 08:00 10/24/24 08:00 Nasal Cannula 3 10/24/24 08:00 10/24/24 07:48 96 Nasal Cannula 4 10/24/24 07:45 10/24/24 07:45 95 10/24/24 07:33 96 10/24/24 07:31 10/24/24 07:15 99 10/24/24 07:15 10/24/24 07:00 99 Oxymask 6 10/24/24 07:00 10/24/24 06:41 99 Oxymask 6 10/24/24 06:31 99 Oxymask 6 10/24/24 05:00 10/24/24 04:51 96 10/24/24 04:45 96 10/24/24 04:45 10/24/24 04:45 10/24/24 04:45 10/24/24 04:44 96 4 10/24/24 04:42 96 10/24/24 04:24 98 10/24/24 04:15 10/24/24 04:12 98 10/24/24 04:01 10/24/24 04:01 10/24/24 04:01 10/24/24 03:42 98 10/24/24 03:38 97 4 10/24/24 03:34 10/24/24 03:34 10/24/24 03:33 98 10/24/24 03:30 Nasal Cannula 4 10/24/24 03:30 97 Nasal Cannula 3 10/24/24 03:16 98 4 10/24/24 03:14 98 4 10/24/24 03:03 98 10/24/24 03:00 10/24/24 03:00 10/24/24 03:00 99 Nasal Cannula 4 10/24/24 02:57 97 10/24/24 02:51 100 10/24/24 02:45 10/24/24 02:45 10/24/24 02:45 100 4 10/24/24 02:42 99 10/24/24 02:39 100 10/24/24 02:31 10/24/24 02:31 10/24/24 02:30 98 Nasal Cannula 4 10/24/24 02:15 96 4 10/24/24 02:12 96 10/24/24 02:12 10/24/24 02:11 10/24/24 02:11 10/24/24 02:00 96 10/24/24 01:55 10/24/24 01:50 10/24/24 01:50 10/24/24 01:48 94 10/24/24 01:46 10/24/24 01:46 10/24/24 01:45 94 10/24/24 01:43 95 4 10/24/24 01:39 94 10/24/24 01:39 10/24/24 01:39 10/24/24 01:38 10/24/24 01:38 10/24/24 01:33 92 10/24/24 01:30 10/24/24 01:30 10/24/24 01:06 95 10/24/24 01:00 10/24/24 01:00 10/24/24 00:58 98 Nasal Cannula 2 10/24/24 00:48 94 10/24/24 00:45 94 10/24/24 00:31 10/24/24 00:31 10/24/24 00:30 10/24/24 00:21 93 10/24/24 00:18 94 10/24/24 00:03 94 Nasal Cannula 2 10/24/24 00:00 10/23/24 22:23 94 Nasal Cannula 2 10/23/24 22:20 10/23/24 22:03 89 L Room Air 10/23/24 22:03 89 L Room Air Transfer of Care Handoff Completed per policy Notes Mental Status: alert / awake / arousable Patient Amnestic to Procedure: Yes Nausea / Vomiting: adequately controlled Pain: adequately controlled Airway Patency, RR, SpO2: stable & adequate BP & HR: stable & adequate Hydration State: stable & adequate Anesthetic Complications: no major complications apparent and Pt Satisfied with anesthetic care Notes: Note entry delayed. Patient extubated at end of procedure and neurologically intact. 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 Discussed with ICU and will begin anti-hypertensive treatment in ICU.
[2024-10-25] MEDS ORDERED: GLUCOSE 10 TAB/TUBE PO PRN (01:30)
[2024-10-25] MEDS ORDERED: GLUCAGON FOR INJ 1 MG VIAL SQ PRN (01:30)
[2024-10-25] MEDS ORDERED: GLUCOSE 40% GEL 15 GM TUBE PO PRN (01:30)
[2024-10-25] MEDS ORDERED: CARBOHYDRATES FOR HYPOGLYCEMIA PO PRN (01:30)
[2024-10-25] MEDS ORDERED: DEXTROSE 50% 50 ML SYRINGE IV PRN (01:30)
[2024-10-25] MEDS: METOPROLOL TARTRATE 25 MG TAB PO SCH (01:39)
[2024-10-25] MEDS: LACTATED RINGER'S 1,000 ML IV ONE (01:40)
[2024-10-25 07:27] LABS: Anion Gap 5.0 (3-11); Blood Urea Nitrogen 101.0 mg/dl (6-23); Calcium 7.8 mg/dl (8.6-10.3); Carbon Dioxide 23.0 mmol/L (21-32); Chloride 111.0 mmol/L (98-107); Creatinine Clr Calc Pharmacy 29.1 ml/min; Glucose 120.0 mg/dl (70-99(Fasting)); Magnesium 2.1 mg/dl (1.7-2.4); Potassium 4.8 mmol/L (3.5-5.1); Sodium 139.0 mmol/L (136-145)
--- NOTE | 2024-10-25 07:40 | Gastroenterology Progress Note ---
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 At significant risk for repeat bleeding at any time. Local [facility] centers cannot offer any therapeutic intervention. Would consider reaching out to the [facility] to see if they can offer any less invasive options for him. Patient is agreeable to investigate. Admission and Anticipated Discharge Date Admission Date: October 24, 2024 Subjective Resting comfortably no further bleeding no abdominal pain no chest pain mild shortness of breath Physical Exam Physical Exam: No acute distress Respiratory rate regular Cardiac rhythm regular Abdomen soft nontender Results & Data Results & Data Vital Signs (Past 12 Hours) Vital Signs Temp Pulse Pulse Resp BP Pulse Ox O2 Del Method 10/25/24 06:00 64 10/25/24 03:28 36.4 C L 66 22 170/80 H 99 Nasal Cannula 10/25/24 00:00 74 10/24/24 21:50 77 10/24/24 20:00 Nasal Cannula O2 Flow Rate 10/25/24 06:00 10/25/24 03:28 3 10/25/24 00:00 10/24/24 21:50 10/24/24 20:00 3 Laboratory Results Laboratory Results - last 48 hr 10/23/24 10/23/24 10/23/24 22:19 22:23 23:41 WBC 12.23 H RBC 2.75 L Hgb 9.0 L POC Hgb 8.5 L Hct 29.0 L POC Hct 25 L MCV 105.5 H MCH 32.7 MCHC 31.0 L RDW Std Deviation 57.8 H RDW Coeff of Chaka 15.2 H Plt Count MPV Not Reportable Immature Gran % (Auto) 2.2 Neut % (Auto) 74.3 Lymph % (Auto) 8.7 [place] % (Auto) 10.5 Eos % (Auto) 3.8 Baso % (Auto) 0.5 Neut # (Auto) 9.08 H Lymph # (Auto) 1.07 L [place] # (Auto) 1.29 H Eos # (Auto) 0.46 Baso # (Auto) 0.06 Immature Gran # (Auto) 0.27 H Platelet Estimate Normal Plt Count ,Citrate Polychromasia Echinocytes PT INR APTT PTT Ratio Fibrinogen Heparin Anti-Xa, LM Wt POC Sodium 137 Sodium 137 POC Potassium 4.9 Potassium 4.9 POC Chloride 109 Chloride 108 H Carbon Dioxide 20 L POC Total CO2 21 L Anion Gap 9 POC Anion Gap 13.0 L POC BUN 93 H BUN 82 H Creatinine 2.40 H POC Creatinine 2.5 H Est Cr Clr Drug Dosing 29.1 eGFR 27.28 BUN/Creatinine Ratio 34.2 H Glucose 136 H POC Glucose POC Glucose (other) 131 H Calcium 7.5 L POC Ioniz Calcium Maria G 1.08 L Phosphorus Magnesium Total Bilirubin 0.4 AST 14 ALT 14 Alkaline Phosphatase 58 Troponin I High Sens 40.7 H Total Protein 5.1 L Albumin 2.8 L Globulin 2.3 L Albumin/Globulin Ratio 1.2 Lipase 57 Urine Color Yellow Urine Appearance Clear Urine pH 5.0 Ur Specific [place] 1.018 Urine Protein 3+ H Urine Glucose (UA) Negative Urine Ketones Trace H Urine Blood Negative Urine Nitrite Negative Urine Bilirubin Negative Urine Urobilinogen Negative Ur Leukocyte Esterase 2+ H Urine WBC (Auto) 6-10 H Urine RBC (Auto) 0-2 U Hyaline Cast (Auto) 3-5 H U Epithel Cells (Auto) 0-2 Urine Bacteria (Auto) None Seen Urine Comment Nasal Screen MRSA (PCR) Blood Type Antibody Screen Crossmatch 10/24/24 10/24/24 10/24/24 00:06 01:23 03:35 WBC RBC Hgb 7.6 L POC Hgb Hct 24.4 L POC Hct MCV MCH MCHC RDW Std Deviation RDW Coeff of [place]aka Plt Count MPV Immature Gran % (Auto) Neut % (Auto) Lymph % (Auto) [place] % (Auto) Eos % (Auto) Baso % (Auto) Neut # (Auto) Lymph # (Auto) [place] # (Auto) Eos # (Auto) Baso # (Auto) Immature Gran # (Auto) Platelet Estimate Plt Count ,Citrate 129 L Polychromasia Echinocytes PT 11.7 INR 1.1 APTT 27 PTT Ratio 1.0 Fibrinogen 274 Heparin Anti-Xa, LM Wt 0.62 POC Sodium Sodium 138 POC Potassium Potassium 4.9 POC Chloride Chloride 110 H Carbon Dioxide 20 L POC Total CO2 Anion Gap 8 POC Anion Gap POC BUN BUN 94 H Creatinine 2.33 H POC Creatinine Est Cr Clr Drug Dosing 29.9 eGFR 28.27 BUN/Creatinine Ratio 40.3 H Glucose 130 H POC Glucose POC Glucose (other) Calcium 7.1 L POC Ioniz Calcium Maria G Phosphorus 3.7 Magnesium 1.3 L Total Bilirubin AST ALT Alkaline Phosphatase Troponin I High Sens 56.6 H* D Total Protein Albumin Globulin Albumin/Globulin Ratio Lipase Urine Color Urine Appearance Urine pH Ur Specific [place] Urine Protein Urine Glucose (UA) Urine Ketones Urine Blood Urine Nitrite Urine Bilirubin Urine Urobilinogen Ur Leukocyte Esterase Urine WBC (Auto) Urine RBC (Auto) U Hyaline Cast (Auto) U Epithel Cells (Auto) Urine Bacteria (Auto) Urine Comment Nasal Screen MRSA (PCR) Blood Type A Positive Antibody Screen NEGATIVE Crossmatch See Detail 10/24/24 10/24/24 10/24/24 03:40 06:38 09:51 WBC 13.27 H 14.35 H RBC 3.08 L 3.09 L Hgb 10.3 L 10.3 L POC Hgb Hct 31.7 L 30.7 L POC Hct MCV 102.9 H 99.4 MCH 33.4 33.3 MCHC 32.5 33.6 RDW Std Deviation 57.0 H 57.2 H RDW Coeff of Chaka 15.2 H 15.9 H Plt Count 133 MPV 10.1 Immature Gran % (Auto) 2.8 1.8 Neut % (Auto) 79.6 91.8 Lymph % (Auto) 8.1 2.7 [place] % (Auto) 8.7 3.3 Eos % (Auto) 0.4 0.1 Baso % (Auto) 0.4 0.3 Neut # (Auto) 10.58 H 13.17 H Lymph # (Auto) 1.07 L 0.39 L [place] # (Auto) 1.15 H 0.48 Eos # (Auto) 0.05 0.01 Baso # (Auto) 0.05 0.04 Immature Gran # (Auto) 0.37 H 0.26 H Platelet Estimate Plt Count ,Citrate Cancelled Polychromasia 1+ 1+ Echinocytes 1+ 1+ PT INR APTT PTT Ratio Fibrinogen Heparin Anti-Xa, LM Wt POC Sodium Sodium POC Potassium Potassium POC Chloride Chloride Carbon Dioxide POC Total CO2 Anion Gap POC Anion Gap POC BUN BUN Creatinine POC Creatinine Est Cr Clr Drug Dosing eGFR BUN/Creatinine Ratio Glucose POC Glucose POC Glucose (other) Calcium POC Ioniz Calcium Maria G Phosphorus Magnesium Total Bilirubin AST ALT Alkaline Phosphatase Troponin I High Sens Total Protein Albumin Globulin Albumin/Globulin Ratio Lipase Urine Color Urine Appearance Urine pH Ur Specific [place] Urine Protein Urine Glucose (UA) Urine Ketones Urine Blood Urine Nitrite Urine Bilirubin Urine Urobilinogen Ur Leukocyte Esterase Urine WBC (Auto) Urine RBC (Auto) U Hyaline Cast (Auto) U Epithel Cells (Auto) Urine Bacteria (Auto) Urine Comment Nasal Screen MRSA (PCR) Negative Blood Type Antibody Screen Crossmatch 10/24/24 10/24/24 10/24/24 10:57 16:11 17:31 WBC 12.38 H RBC 2.71 L Hgb 9.1 L POC Hgb Hct 26.8 L POC Hct MCV 98.9 MCH 33.6 MCHC 34.0 RDW Std Deviation 57.3 H RDW Coeff of [place]aka 15.7 H Plt Count 120 L MPV 10.8 Immature Gran % (Auto) Neut % (Auto) Lymph % (Auto) [place] % (Auto) Eos % (Auto) Baso % (Auto) Neut # (Auto) Lymph # (Auto) [place] # (Auto) Eos # (Auto) Baso # (Auto) Immature Gran # (Auto) Platelet Estimate Plt Count ,Citrate Polychromasia Echinocytes PT INR APTT PTT Ratio Fibrinogen Heparin Anti-Xa, LM Wt POC Sodium Sodium 138 POC Potassium Potassium 4.9 POC Chloride Chloride 112 H Carbon Dioxide 19 L POC Total CO2 Anion Gap 7 POC Anion Gap POC BUN BUN 98 H Creatinine 2.39 H POC Creatinine Est Cr Clr Drug Dosing 29.2 eGFR 27.42 BUN/Creatinine Ratio 41.0 H Glucose 141 H POC Glucose 208 H 154 H POC Glucose (other) Calcium 7.8 L POC Ioniz Calcium Maria G Phosphorus Magnesium Total Bilirubin AST ALT Alkaline Phosphatase Troponin I High Sens Total Protein Albumin Globulin Albumin/Globulin Ratio Lipase Urine Color Urine Appearance Urine pH Ur Specific [place] Urine Protein Urine Glucose (UA) Urine Ketones Urine Blood Urine Nitrite Urine Bilirubin Urine Urobilinogen Ur Leukocyte Esterase Urine WBC (Auto) Urine RBC (Auto) U Hyaline Cast (Auto) U Epithel Cells (Auto) Urine Bacteria (Auto) Urine Comment Nasal Screen MRSA (PCR) Blood Type Antibody Screen Crossmatch 10/24/24 10/25/24 10/25/24 23:53 06:10 06:54 WBC RBC Hgb POC Hgb Hct POC Hct MCV MCH MCHC RDW Std Deviation RDW Coeff of [place]aka Plt Count MPV Immature Gran % (Auto) Neut % (Auto) Lymph % (Auto) [place] % (Auto) Eos % (Auto) Baso % (Auto) Neut # (Auto) Lymph # (Auto) [place] # (Auto) Eos # (Auto) Baso # (Auto) Immature Gran # (Auto) Platelet Estimate Plt Count ,Citrate Polychromasia Echinocytes PT INR APTT PTT Ratio Fibrinogen Heparin Anti-Xa, LM Wt POC Sodium Sodium 139 POC Potassium Potassium 4.8 POC Chloride Chloride 111 H Carbon Dioxide 23 POC Total CO2 Anion Gap 5 POC Anion Gap POC BUN BUN 101 H Creatinine 2.40 H POC Creatinine Est Cr Clr Drug Dosing 29.1 eGFR 27.28 BUN/Creatinine Ratio 42.1 H Glucose 120 H POC Glucose 149 H 141 H POC Glucose (other) Calcium 7.8 L POC Ioniz Calcium Maria G Phosphorus Magnesium 2.1 Total Bilirubin AST ALT Alkaline Phosphatase Troponin I High Sens Total Protein Albumin Globulin Albumin/Globulin Ratio Lipase Urine Color Urine Appearance Urine pH Ur Specific [place] Urine Protein Urine Glucose (UA) Urine Ketones Urine Blood Urine Nitrite Urine Bilirubin Urine Urobilinogen Ur Leukocyte Esterase Urine WBC (Auto) Urine RBC (Auto) U Hyaline Cast (Auto) U Epithel Cells (Auto) Urine Bacteria (Auto) Urine Comment Nasal Screen MRSA (PCR) Blood Type Antibody Screen Crossmatch PG Care Time/CCT Total # of Minutes Spent Total Time Spent with Patient: Total time spent is greater than 50% in coordination of care (as documented) at patient's floor/unit and/or counseling patient: Coding Level of Care Code 13343 SUB INP/OBS CARE 2/35MIN Diagnoses Acute GI bleeding K92.2
--- NOTE | 2024-10-25 12:03 | Palliative Care Consultation ---
Date of Consultation October 25, 2024 Assessment & Plan (1) Palliative care by specialist: Met with pt at bedside, his daughter Nathen was present, Introduced Palliative Medicine and explained our role in advanced care planning, symptom management and navigation through the progression of life limiting disease. Patient and/or daughter were receptive to palliative services for goals of care discussions. Reviewed we are different from hospice, a home health nurse visiting service. (2) Advanced directives, counseling/discussion: Patient currently exhibits decisional capacity based on the ability to convey understanding of personal PMHx, current medical condition, treatment options nor the risks / benefits/ potential outcomes of accepting/declining those options, and ability to make decisions based on such knowledge. Hospital does have written documentation of patient wishes concerning his chosen proxy for medical decisions. AD paperwork on file which was properly executed by patient on 07/30/2022 designates patient's Michell Fung as primary HCPOA and his three daughters Salina Estevez, Adwoa Sutton and Yelena cortez ("and") as secondary HCPOA for all medical decisions in the event he lacks decisional capacity. Pt verbalized that he trusts his each of daughters to serve independently as proxy in the event he lacks decisional capacity. He shared that his has dementia and does not have decisional capacity herself. He requests that she not be listed as first contact on chart. We discussed the importance of updating AD and blank copy was provided for them to review and discuss as family. Pt does NOT require a proxy for medical decisions. Given his 's dementia, I urged the importance of completing new AD document and sharing copy with hospital. Nathen reports that the fmily will all be visiting over weekend and they intend to complete it using adult grand children as witness to pt's signature. (3) Goals of care, counseling/discussion: Lengthy conversation held with pt and his daughter, total of 40 minutes spent on ACP discussion. Pt shared that he would want to get a second opinion on surgical/diagnostic options if he had a reasonable chance of returning quickly to his current level of health or better. He shared that "some doctor" had told him this morning that he should perhaps see if "surgeons in [place] or [place]" could operate since [facility] [place] team is not offering surgery. He said that if there are more skilled surgeons that can do more he would want a second opinion. We discussed his age, comorbidities and obesity as risk factors with any surgery. Pt shared that the ICU team had informed him that he might be ventilator dependent or not even survive surgery. He shared that his family is aware that he would not want operational risk analyst ventilator but he is aware that he is at high risk for snf ventilator dependence with any procedure requiring intubation. He shared that he would like answers, but that he "has been dealing with this for so long" that he is okay with continuing with the current course but not okay with any procedure that would might make him require intubation beyond the immediate perioperative period. Pt shared that he and his children have discussed this at length and he has decided that he would not want surgery at all. He shared that he has been "getting along fine just getting fixed up with transfusions or scopes" and would "want to go home and just live out his time like I had been". He shared that he does still want the option of returning to the ED for emergent care and does still wish to continue life prolonging therapies, but reinforced his DNR/DNI status and said that he wants to be released to home when medically cleared without intention to pursue any further major surgeries or high risk procedures. Plan DNR/DNI, continue all life prolonging therapies. Pt does not wish to pursue further surgical intervention. History of Present Illness Reason for Consultation: goals of care Requesting Physician: Patricio Olivares DO Attending Physician: Patricio Olivares DO History of Present Illness 74-year-old male with past medical history significant for chronic hypoxic respiratory failure on home oxygen, COPD, obstructive sleep apnea on CPAP, dyslipidemia, hyperparathyroidism, idiopathic chronic gout, aneurysm of subclavian artery, hypertension, stenosis of left renal artery, abdominal aortic aneurysm, thoracic aorta atherosclerosis, severe aortic stenosis, shaggy aorta syndrome, chronic diastolic CHF, history of supraventricular tachycardia, chronic atrial fibrillation, CKD stage IV, status post lumbar disc excision, iron deficiency anemia due to chronic blood loss, monoclonal paraproteinemia, history of shingles, history of CVA, history of biliary stent insertion, history of retinal artery occlusion who lives at home with his and sometimes uses walker to ambulate presentd to ED 10/24/24 for abdominal pain and back pain and in the ER he had large amount of hematemesis. Allergies Allergy/AdvReac Type Severity Reaction Status Date / Time RUBENS Inhibitors AdvReac Intermediate HYPERKALEMIA---DROPS Verified 10/24/24 00:28 BLOOD PRESSURE lisinopril AdvReac Intermediate HYPERKALEMIA--DROPS Verified 10/24/24 00:28 BLOOD PRESSURE Home Medications Medication Instructions Recorded Confirmed Type albuterol sulfate 90 mcg/actuation 2 puff inhalation Q4H PRN Wheezing 01/30/23 10/24/24 History aerosol inhaler allopurinol 300 mg tablet 150 mg PO DAILY 01/30/23 10/24/24 History atorvastatin 80 mg tablet 80 mg PO QAM 01/30/23 10/24/24 History azelastine 137 mcg (0.1 %) nasal 1 spray intranasal AMHS Nasal 01/30/23 10/24/24 History spray Congestion cholecalciferol (vitamin D3) 50 50 mcg PO DAILY 01/30/23 10/24/24 History mcg (2,000 unit) tablet (Vitamin D3) docusate sodium 100 mg capsule 100 mg PO BID 01/30/23 10/24/24 History furosemide 20 mg tablet 40 mg PO QAM 01/30/23 10/24/24 History ipratropium 0.5 mg-albuterol 3 mg 3 ml inhalation Q6H PRN Shortness 01/30/23 10/24/24 History (2.5 mg base)/3 mL nebulization Of Breath Or Wheezing soln metoprolol tartrate 25 mg tablet 25 mg PO BID 01/30/23 10/24/24 History potassium chloride 10 mEq 10 meq PO 3XWK 01/30/23 10/24/24 History tablet,extended release(part/cryst) (Klor-Con M) fluticasone fur. 100 mcg-umeclid 1 inh inhalation QAM 02/15/23 10/24/24 History 62.5 mcg-vilant 25 mcg inhalat.powder (Trelegy Ellipta) ascorbic acid (vitamin C) 250 mg 125 mg PO QDL 04/21/23 10/24/24 History tablet fluticasone propionate 50 2 spray intranasal DAILY PRN 04/21/23 10/24/24 History mcg/actuation nasal Allergy Symptoms spray,suspension apixaban 2.5 mg tablet (Eliquis) 2.5 mg PO BID 09/02/23 10/24/24 History pantoprazole 40 mg tablet,delayed 40 mg PO AMHS #60 tabs 09/15/23 10/24/24 Rx release doxycycline hyclate 100 mg capsule 100 mg PO BID PRN RESCUE KIT FOR 10/24/24 10/24/24 History COPD ferrous sulfate 325 mg (65 mg 325 mg PO QDL 10/24/24 10/24/24 History iron) tablet (Feosol) guaifenesin 600 mg tablet, 600 mg PO Q12H PRN Congestion 10/24/24 10/24/24 History extended release 12 hr prednisone 20 mg tablet 40 mg PO DAILY PRN RESCUE KIT FOR 10/24/24 10/24/24 History COPD Patient History Medical History MGUS (monoclonal gammopathy of unknown significance) CRF (chronic renal failure) History of cholelithiasis Chronic respiratory failure with hypoxia, on home O2 therapy GERD (gastroesophageal reflux disease) COPD (chronic obstructive pulmonary disease) exacerbation Dec 2022 - Hospitalized [facility] Dec 24-2022. Med change and effective since. Denies current issues. O2 2 L HS & PRN throughout day. PFO (patent foramen ovale) Wide-complex tachycardia CVA (cerebral vascular accident) Gastroparesis pt is not sure about this dx. History of colon polyps x1 a few yrs ago/follow up in 5 yrs. 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 Ascending thoracic aorta at the level of the right pulmonary artery 4.2 cm unchanged. 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 Descending thoracic aorta at the level of the left atrium again up to 4.[address] scan Dec 2022 - pt told everything was stable. 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 follows with Dr. Jefferson Gastric ulcer Hearing deficit BL NAILS Hx SBO History of GI bleed Stroke X 2 (LAST EVENT 05/2020) CONT. TO HAVE SLIGHT BALANCE ISSUES Sleep apnea CPAP Hx of gout PSVT (paroxysmal supraventricular tachycardia) Aortic stenosis Thoracic aortic atherosclerosis, densely calcified coronary arteries, severely calcified aortic valve, aneurysmal outpouching of the aortic arch. CKD (chronic kidney disease), stage III follows with [facility] nephrology Hyperlipidemia Hypertension Surgical History History of tonsillectomy History of esophagogastroduodenoscopy (EGD) most recent a few months ago for a bleed, this is a follow up procedure. History of tooth extraction History of tonsillectomy and adenoidectomy pt not sure about adenoids. History of lumbar surgery 1999 S/P AAA repair 01/13/2009 - Dr Suazo ([facility]) Hx of colonoscopy Hx of hernia repair lysis of adhesions, incisional hernia repair laparoscopically 01/28/2010 at [facility] - Dr Desouza Family History Other AAA (abdominal aortic aneurysm) Hypertension No family history of adverse response to anesthesia Social History Smoking Status: Unknown if ever smoked Tobacco Type: Cigarettes Age Started Using Tobacco: 18; Cigarettes Per Day: Former cigarette. 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: No Beliefs That Will Affect Care: None marital status: Current Living Situation: Spouse Current Living Situation Comment: and daughter current occupational status: employed Other Information That Helps Us Care for You: No Feels Safe at Home: Yes Safety Concerns: Feels Safe At This Time Assistive Devices: Oxygen - Continuous and Walker Review of Systems Ear, Nose, Mouth, Throat: + hearing loss Gastrointestinal: hungry, denies other complaint Physical Exam Constitutional: WD/WN, vitals as above + morbidly obese Eyes: PERRL, conjunctivae normal, anicteric sclerae ENMT: external ear and nose normal, oropharynx normal Respiratory: normal respiratory effort, lungs clear to auscultation baseline 2L NC Cardiovascular: Rate/Rhythm: regular rate and regular rhythm Gastrointestinal (Abdomen): Inspection/Auscultation: normal bowel sounds; abdomen not distended and no visible pulsation Percussion/Palpation: abdomen soft; abdomen nontender and no guarding Musculoskeletal: no cyanosis or clubbing, extremities motor strength 5/5 Extremities: strength 5/5 throughout Neurologic: PERRL, EOMI, accommodation nl, no face palsy, no dysarthria Psychiatric: Orientation: alert, oriented x 3 and cooperative Results & Data Vital Signs (Past 12 Hours) Vital Signs Temp Pulse Pulse Pulse Resp BP Pulse Ox 10/25/24 11:35 36.4 C L 62 22 148/69 H 97 10/25/24 09:20 10/25/24 07:46 36.6 C 64 22 147/79 H 98 10/25/24 06:00 64 10/25/24 03:28 36.4 C L 66 22 170/80 H 99 O2 Del Method O2 Flow Rate 10/25/24 11:35 Nasal Cannula 5 10/25/24 09:20 Nasal Cannula 3 10/25/24 07:46 Nasal Cannula 5 10/25/24 06:00 10/25/24 03:28 Nasal Cannula 3 Laboratory Results Abnormal lab results 10/24/24 10/24/24 10/24/24 Range/Units 00:06 16:11 17:31 WBC 12.38 H (4.8-10.8) K/ul RBC 2.71 L (4.70-6.10) M/uL Hgb 9.1 L (14.0-18.0) g/dl Hct 26.8 L (42.0-52.0) % RDW Std Deviation 57.3 H (36.4-46.3) fL RDW Coeff of Chaka 15.7 H (11.5-14.5) % Plt Count 120 L (130-400) K/uL Chloride 112 H (98-107) mmol/L Carbon Dioxide 19 L (21-32) mmol/L BUN 98 H (6-23) mg/dl Creatinine 2.39 H (0.6-1.4) mg/dl BUN/Creatinine Ratio 41.0 H (10-20) Glucose 141 H (70-99(Fasting)) mg/dl POC Glucose 154 H (70-99) mg/dl Calcium 7.8 L (8.6-10.3) mg/dl Crossmatch See Detail 10/24/24 10/25/24 10/25/24 Range/Units 23:53 06:10 06:54 WBC (4.8-10.8) K/ul RBC (4.70-6.10) M/uL Hgb (14.0-18.0) g/dl Hct (42.0-52.0) % RDW Std Deviation (36.4-46.3) fL RDW Coeff of Chaka (11.5-14.5) % Plt Count (130-400) K/uL Chloride 111 H (98-107) mmol/L Carbon Dioxide (21-32) mmol/L BUN 101 H (6-23) mg/dl Creatinine 2.40 H (0.6-1.4) mg/dl BUN/Creatinine Ratio 42.1 H (10-20) Glucose 120 H (70-99(Fasting)) mg/dl POC Glucose 149 H 141 H (70-99) mg/dl Calcium 7.8 L (8.6-10.3) mg/dl Crossmatch 10/25/24 Range/Units 11:50 WBC (4.8-10.8) K/ul RBC (4.70-6.10) M/uL Hgb (14.0-18.0) g/dl Hct (42.0-52.0) % RDW Std Deviation (36.4-46.3) fL RDW Coeff of Chaka (11.5-14.5) % Plt Count (130-400) K/uL Chloride (98-107) mmol/L Carbon Dioxide (21-32) mmol/L BUN (6-23) mg/dl Creatinine (0.6-1.4) mg/dl BUN/Creatinine Ratio (10-20) Glucose (70-99(Fasting)) mg/dl POC Glucose 133 H (70-99) mg/dl Calcium (8.6-10.3) mg/dl Crossmatch Diagnostic Findings Abdomen/Pelvis CT 10/23/24 22:24 Exam(s): CT ABDOMEN + PELVIS Without Contrast EXAM: CT Abdomen and Pelvis Without Intravenous Contrast CLINICAL HISTORY: Reason for exam: severe llq pain. TECHNIQUE: Axial computed tomography images of the abdomen and pelvis without intravenous contrast. CTDI is 28.04 mGy and DLP is 1297.8 mGy-cm. Automated exposure control was utilized for the study. A dose lowering technique was utilized adhering to the principles of ALARA. COMPARISON: None FINDINGS: Lung bases: Bibasilar atelectasis. ABDOMEN: Liver: Unremarkable. Gallbladder and bile ducts: Unremarkable. No calcified stones. No ductal dilation. Pancreas: Unremarkable. No ductal dilation. Spleen: Unremarkable. No splenomegaly. Adrenals: Unremarkable. No mass. Kidneys and ureters: Unremarkable. No hydronephrosis or obstructing ureteral stone. Stomach and bowel: Clips seen along the stomach. Hyperdense material within the stomach could represent ingested material versus blood products. Blood products within the gastric wall are not excluded. Evaluation is somewhat limited without IV contrast. No free intraperitoneal blood identified. Diverticulosis without evidence of diverticulitis. No obstruction. PELVIS: Appendix: Normal appendix. Bladder: Unremarkable. No stones. Reproductive: Borderline size of the prostate. ABDOMEN and PELVIS: Intraperitoneal space: Unremarkable. No free air. No significant fluid collection. Bones/joints: Right convex curvature of the spine. Degenerative changes of the spine. Postsurgical changes at L5-S1. Grade 1 anterolisthesis of L5 on S1. No acute fracture. No dislocation. Soft tissues: Mild bilateral gynecomastia. Bilateral fat containing inguinal hernias. Ventral hernia repair. Small fat containing umbilical and ventral hernias. Vasculature: Atherosclerotic changes of the vasculature. No abdominal aortic aneurysm. Lymph nodes: Unremarkable. No enlarged lymph nodes. IMPRESSION: Clips seen along the stomach. Hyperdense material within the stomach could represent ingested material versus blood products. Blood products within the gastric wall are not excluded. Evaluation is somewhat limited without IV contrast. No free intraperitoneal blood identified. Electronically signed by: London Nielsen M.D. 10/24/24 00:[address] 10/23/24 22:27 Exam(s): CT CHEST Without Contrast EXAM: CT Chest Without Intravenous Contrast CLINICAL HISTORY: Reason for exam: severe mid abd pain. hx AA. TECHNIQUE: Axial computed tomography images of the chest without intravenous contrast. Automated exposure control was utilized for the study. A dose lowering technique was utilized adhering to the principles of ALARA. COMPARISON: No relevant prior studies available. FINDINGS: Lungs: Linear atelectasis left upper lobe. No mass. Pleural space: Unremarkable. No significant effusion. No pneumothorax. Heart: Aortic valve calcification. Coronary artery calcifications. No cardiomegaly. No significant pericardial effusion. Bones/joints: Unremarkable. No acute fracture. Soft tissues: Unremarkable. Vasculature: 6.8 cm thoracic aortic aneurysm at the aortic arch. Lymph nodes: Unremarkable. No enlarged lymph nodes. Other findings: Dense calcification. IMPRESSION: No acute findings in the chest. 6.8 cm thoracic aortic aneurysm Electronically signed by: Lester Reinoso MD 10/24/24 00:06 AM Abdomen/Pelvis CTA 10/24/24 01:46 EXAM: CT angio abdomen pelvis w con CLINICAL HISTORY: GI bleed, ? active bleeding TECHNIQUE: Contrast enhanced thin slice CT angiography scan of the abdominal aorta was performed with intravenous contrast. Angiographic images were processed, 3D MIP images were acquired for interpretation. Contiguous axial images were obtained. Reformatted coronal and sagittal images were also reviewed. If IV contrast material had not been administered, the likelihood of detecting abnormalities relevant to the patients condition would have been substantially decreased. CT scan was performed according to ALARA (as low as reasonable achievable). COMPARISON: apr 10:38:01 [employer]. FINDINGS: Diffuse atherosclerotic calcification is noted involving aorta. 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 Abdominal aorta is normal in course, calibre and opacification. Origin of coeliac artery, superior mesenteric artery , bilateral main renal and lumbar arteries shows diffuse atherosclerotic calcification with mild to moderate stenosis. No evidence of end organ ischemia seen. Bilateral common, external and internal iliac arteries shows diffuse atherosclerotic calcification without significant stenosis. About 11 x 9 mm sized hypodense lesion is noted involving segment IV of liver - appear simple cyst. Multiple small uncomplicated sigmoid colonic diverticulosis Solid abdominal organs including liver, spleen, pancreas and bilateral kidneys reveal no significant abnormality. Bowel loops are grossly unremarkable. No evidence of ascites. IMPRESSION: 1. Diffuse atherosclerotic calcification is noted involving aorta and its all major branches-stable. 2. 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 3. Small hepatic cyst.-stable. 4. Uncomplicated colonic diverticulosis.-stable. 5. No obvious extravasation of contrast/active bleed. Electronically signed by Aiden Licona 10-24-2024 03:09 AM Medications Administered Current Inpatient Medications Albuterol (Albuterol Hfa 8 Gm Inhaler) 2 puffs INH Q4H PRN PRN Reason: Wheezing Stop: 11/23/24 03:08 Albuterol (Albut/Ipratrop 3mg/0.5mg Neb 3 Ml Vial) 3 ml INH Q6H PRN; Protocol PRN Reason: Shortness Of Breath Or Wheezing Stop: 11/23/24 03:08 Last Admin: 10/24/24 08:14 Dose: 3 ml Dextrose (Dextrose 50% 50 Ml Syringe) 25 - 50 ml IV UD PRN; Protocol PRN Reason: Hypoglycemia Protocol Stop: 11/24/24 01:29 Fluticasone Furoate (Fluticasone Furoate 100mcg 14 Puffs/Inhaler) 1 puffs INH DAILY MOLINA Stop: 11/23/24 08:59 Last Admin: 10/25/24 09:20 Dose: 1 puffs Glucagon (Glucagon For Inj 1 Mg Vial) 1 mg SQ UD PRN; Protocol PRN Reason: Hypoglycemia Protocol Stop: 11/24/24 01:29 Glucose (Glucose 40% Gel 15 Gm Tube) 15 - 30 gm PO UD PRN; Protocol PRN Reason: Hypoglycemia Protocol Stop: 11/24/24 01:29 Glucose (Glucose 10 Tab/Tube) 4 - 8 tab PO UD PRN; Protocol PRN Reason: Hypoglycemia Protocol Stop: 11/24/24 01:29 Pantoprazole Sodium 40 mg/ (Dextrose) 100 mls @ 20 mls/hr IV Q5H [facility] Stop: 11/23/24 02:44 Last Admin: 10/25/24 09:20 Dose: 8 mg/hr, 20 mls/hr Lactated Ringer's (Lr) 1,000 mls @ 50 mls/hr IV .Q20H ONE Stop: 10/25/24 21:16 Last Admin: 10/25/24 01:40 Dose: 50 mls/hr Insulin Aspart (Insulin Aspart Per Unit Charge) 0 units SC Q6 MOLINA Stop: 11/23/24 11:59 Last Admin: 10/25/24 13:13 Dose: Not Given Metoprolol Tartrate (Metoprolol Tartrate 25 Mg Tab) 12.5 mg PO BID MOLINA Stop: 11/24/24 01:14 Last Admin: 10/25/24 09:21 Dose: 12.5 mg Miscellaneous (Carbohydrates For Hypoglycemia ) 15 - 30 gm PO UD PRN PRN Reason: Hypoglycemia Treatment Stop: 11/24/24 01:29 Umeclidinium/Vilanterol (Umeclidinium/Vilanterol 62.5/25mcg 7 Puffs/Inhaler) 1 puffs INH DAILY MOLINA Stop: 11/23/24 08:59 Last Admin: 10/25/24 09:21 Dose: 1 puffs PG Care Time/CCT Total # of Minutes Spent Total Time Spent with Patient: Total time spent is greater than 50% in coordination of care (as documented) at patient's floor/unit and/or counseling patient: Advanced Care Planning 52084 Advanced Care Planning 30 [place] [address] IN/OBS CONSULT LVL 4,60M Patient Type New History Expanded Problem Focused Exam Expanded Problem Focused Medical Decision Making Moderate Complexity Diagnoses Palliative care by specialist Z51.5 Advanced directives, counseling/discussion Z71.89 Goals of care, counseling/discussion Z71.89 Additional Codes Advanced Care Planning - 35955 Advanced Care Planning 30 Min: 97050 Advanced Care Planning 30 Min ([id number])
--- NOTE | 2024-10-25 15:23 | Hospitalist Progress Note ---
Date of Service October 25, 2024 Assessment & Plan (1) Acute GI bleeding: Plan: 74-year-old male with past medical history significant for chronic hypoxic respiratory failure on home oxygen, COPD, obstructive sleep apnea on CPAP, dyslipidemia, GI bleeds in the past (December 2022), hyperparathyroidism, idiopathic chronic gout, aneurysm of subclavian artery, hypertension, stenosis of left renal artery, abdominal aortic aneurysm, thoracic aorta atherosclerosis, severe aortic stenosis, shaggy aorta syndrome, chronic diastolic CHF, history of supraventricular tachycardia, chronic atrial fibrillation, CKD stage IV, status post lumbar disc excision, iron deficiency anemia due to chronic blood loss, monoclonal paraproteinemia, history of shingles, history of CVA, history of biliary stent insertion, history of retinal artery occlusion who lives at home with his and sometimes uses walker to ambulate comes because of abdominal pain and back pain admitted through the ER with a large amount of hematemesis. He was running high BPs and started on a Nicardipine gtt. Acute GI bleeding Continue care in the telemetry unit Large amount of hematemesis in the ER and became hypotensive and tachycardic. Hemoglobin stable. 9.1 this am. No evidence of further bleeding Eliquis on hold, S/P Kcentra was given along with TXA and IV fluids. Patient has had recurrent GI bleeds. We discussed continuation of anticoagulants and the risks and benefits. The patient and his family agree they would like to stop Eliquis and not restart S/P 2 units of PRBCs . GI consulted and EGD completed S/P CTA abdomen & pelvis Continue Protonix drip for 24 more hours VSS currently stable Trial of clear liquids and advance as tolerated Chronic hypoxic respiratory failure on home oxygen History of COPD Continue home inhalers Nebs as needed Continue 3 liters. 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 If patient experience recurrent TIA/CVA symptoms despite reduced dose Eliquis to consider resumption of antiplatelet therapy. History of asymptomatic ventricular tachycardia and supraventricular tachycardia Restart metoprolol History of CVAs multiple Currently Eliquis on hold for GI bleed. See discussion above. Will discontinue Restart statin Hyperlipidemia Restart statin Hypertension Restart diuretics and metoprolol Off Nicardipine gtt. In the past amlodipine resulted in fluid retention. Isosorbide resulted in significant headaches. Gout Restart Allopurinol DVT prophylaxis SCDs Disposition Continue care on telemetry Had a long discussion with the patient, family, GI and palliative medicine. 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 At this time the patient does not want to consider going to a tertiary care center for another opinion or starting any aggressive treatment. He just wants to go home. He would like the option to return if he has further bleeding for EGD if feasible. He understands the ramifications. Patient will update his advance directive and power of ip attorney. He is a DNR/DNI. A total of 60 minutes spent in the care coordination for this patient. Admission and Anticipated Discharge Date Admission Date: October 24, 2024 Subjective Chart, vital signs and data reviewed. Patient seen earlier this a.m. and seen in the afternoon as well. Several family members have been in and out. Patient states he feels much better. Said he had a bowel movement yesterday evening and there was no evidence of blood or melena. He has had no further nausea or vomiting. No further hematemesis. He denies chest pain. He has chronic shortness of breath and is on chronic O2 therapy. He denies fever or chills. He remains on n.p.o. status. He remains on IV pantoprazole. His hemoglobins remain stable at present. His Eliquis is on hold Physical Exam Physical Exam: General- adult elderly male seen at bedside, nasal cannula is in place, chronic ill appearance Eyes- PERRL, EOMI, anicteric ENT- oropharynx clear Neck- supple, no JVD, no adenopathy, no thyromegaly; carotids +2/2, no bruits appreciated Lungs- clear to auscultation and percussion Heart- regular rhythm; no murmur, no gallop, no rub appreciated Abdomen- normal bowel sounds, soft, nontender, no masses or hepatosplenomegaly Extremities- no pretibial edema, no calf tenderness; peripheral pulses intact Neuro- alert, oriented x 3; PERRL, EOMI; no focal deficits Skin- warm & dry Results & Data Results & Data Vital Signs (Past 12 Hours) Vital Signs Temp Pulse Pulse Pulse Resp BP Pulse Ox 10/25/24 11:35 36.4 C L 62 22 148/69 H 97 10/25/24 09:20 10/25/24 07:46 36.6 C 64 22 147/79 H 98 10/25/24 06:00 64 10/25/24 03:28 36.4 C L 66 22 170/80 H 99 O2 Del Method O2 Flow Rate 10/25/24 11:35 Nasal Cannula 5 10/25/24 09:20 Nasal Cannula 3 10/25/24 07:46 Nasal Cannula 5 10/25/24 06:00 10/25/24 03:28 Nasal Cannula 3 Diagnostic Findings Laboratory Results WBC 12.38 K/ul (4.8-10.8) H 10/24/24 17:31 RBC 2.71 M/uL (4.70-6.10) L 10/24/24 17:31 Hgb 9.1 g/dl (14.0-18.0) L 10/24/24 17:31 POC Hgb 8.5 g/dl (14.0-18.0) L 10/23/24 22:23 Hct 26.8 % (42.0-52.0) L 10/24/24 17: POC Hct 25 % (42-52) L 10/23/24 22:23 MCV 98.9 fL (80.0-100.0) 10/24/24 17: MCH 33.6 pg (25.0-34.0) 10/24/24 17: MCHC 34.0 g/dL (32.0-36.0) 10/24/24 17:31 RDW Std Deviation 57.3 fL (36.4-46.3) H 10/24/24 17:31 RDW Coeff of [place]aka 15.7 % (11.5-14.5) H 10/24/24 17:31 Plt Count 120 K/uL (130-400) L 10/24/24 17:31 MPV 10.8 fL (9.4-12.4) 10/24/24 17:31 Immature Gran % (Auto) 1.8 % 10/24/24 09:51 Neut % (Auto) 91.8 % 10/24/24 09:51 Lymph % (Auto) 2.7 % 10/24/24 09:51 [place] % (Auto) 3.3 % 10/24/24 09:51 Eos % (Auto) 0.1 % 10/24/24 09:51 Baso % (Auto) 0.3 % 10/24/24 09:51 Neut # (Auto) 13.17 K/uL (1.40-6.50) H 10/24/24 09:51 Lymph # (Auto) 0.39 K/uL (1.20-3.40) L 10/24/24 09:51 [place] # (Auto) 0.48 K/uL (0.11-0.59) 10/24/24 09:51 Eos # (Auto) 0.01 K/uL (0.00-0.50) 10/24/24 09:51 Baso # (Auto) 0.04 K/uL (0.00-0.20) 10/24/24 09:51 Immature Gran # (Auto) 0.26 K/uL (0.01-0.20) H 10/24/24 09:51 Platelet Estimate Normal (Normal) 10/23/24 22:19 Plt Count ,Citrate Cancelled 10/24/24 06:38 Polychromasia 1+ 10/24/24 09:51 Echinocytes 1+ 10/24/24 09:51 PT 11.7 Seconds (9.0-12.0) 10/24/24 03:35 INR 1.1 (0.9-1.1) 10/24/24 03:35 APTT 27 Seconds (21-31) 10/24/24 03:35 PTT Ratio 1.0 10/24/24 03:35 Fibrinogen 274 mg/dl (184-400) 10/24/24 03:35 Heparin Anti-Xa, LM Wt 0.62 IU/ML (< 0.10) 10/24/24 03:35 POC Sodium 137 mmol/L (135-144) 10/23/24 22:23 Sodium 139 mmol/L (136-145) 10/25/24 06:54 POC Potassium 4.9 mmol/L (3.3-5.0) 10/23/24 22:23 Potassium 4.8 mmol/L (3.5-5.1) 10/25/24 06:54 POC Chloride 109 mmol/L (101-112) 10/23/24 22:23 Chloride 111 mmol/L (98-107) H 10/25/24 06:54 Carbon Dioxide 23 mmol/L (21-32) 10/25/24 06:54 POC Total CO2 21 mmol/L (24-31) L 10/23/24 22:23 Anion Gap 5 (3-11) 10/25/24 06:54 POC Anion Gap 13.0 mmol/L (16-25) L 10/23/24 22:23 POC BUN 93 mg/dl (7-18) H 10/23/24 22:23 BUN 101 mg/dl (6-23) H 10/25/24 06:54 Creatinine 2.40 mg/dl (0.6-1.4) H 10/25/24 06:54 POC Creatinine 2.5 mg/dl (0.6-1.3) H 10/23/24 22:23 Est Cr Clr Drug Dosing 29.1 ml/min 10/25/24 06:54 eGFR 27.28 10/25/24 06:54 BUN/Creatinine Ratio 42.1 (10-20) H 10/25/24 06:54 Glucose 120 mg/dl (70-99(Fasting)) H 10/25/24 06:54 POC Glucose 133 mg/dl (70-99) H 10/25/24 11:50 POC Glucose (other) 131 mg/dl (70-99) H 10/23/24 22:23 Calcium 7.8 mg/dl (8.6-10.3) L 10/25/24 06:54 POC Ioniz Calcium Maria G 1.08 mmol/l (1.12-1.32) L 10/23/24 22:23 Phosphorus 3.7 mg/dl (2.5-4.9) 10/24/24 03:35 Magnesium 2.1 mg/dl (1.7-2.4) 10/25/24 06:54 Total Bilirubin 0.4 mg/dl (0.2-1.0) 10/23/24 22:19 AST 14 U/L (13-39) 10/23/24 22:19 ALT 14 U/L (7-52) 10/23/24 22:19 Alkaline Phosphatase 58 U/L (34-104) 10/23/24 22:19 Troponin I High Sens 56.6 pg/ml (0-20) H* D 10/24/24 00:06 Total Protein 5.1 gm/dl (6.0-8.3) L 10/23/24 22:19 Albumin 2.8 gm/dl (3.4-5.0) L 10/23/24 22:19 Globulin 2.3 gm/dl (2.5-4.0) L 10/23/24 22:19 Albumin/Globulin Ratio 1.2 (0.9-2) 10/23/24 22:19 Lipase 57 U/L (11-82) 10/23/24 22:19 Urine Color Yellow 10/23/24 23:41 Urine Appearance Clear (Clear) 10/23/24 23:41 Urine pH 5.0 (4.5-7.5) 10/23/24 23:41 Ur Specific [place] 1.018 (1.000-1.030) 10/23/24 23:41 Urine Protein 3+ (Negative) H 10/23/24 23:41 Urine Glucose (UA) Negative (Negative) 10/23/24 23:41 Urine Ketones Trace (Negative) H 10/23/24 23:41 Urine Blood Negative (Negative) 10/23/24 23:41 Urine Nitrite Negative (Negative) 10/23/24 23:41 Urine Bilirubin Negative (Negative) 10/23/24 23:41 Urine Urobilinogen Negative (Negative) 10/23/24 23:41 Ur Leukocyte Esterase 2+ (Negative) H 10/23/24 23:41 Urine WBC (Auto) 6-10 /hpf (0-5) H 10/23/24 23:41 Urine RBC (Auto) 0-2 /hpf (0-2) 10/23/24 23:41 U Hyaline Cast (Auto) 3-5 /lpf (0-2) H 10/23/24 23:41 U Epithel Cells (Auto) 0-2 /hpf (0-2) 10/23/24 23:41 Urine Bacteria (Auto) None Seen (None Seen) 10/23/24 23:41 Urine Comment 10/23/24 23:41 Nasal Screen MRSA (PCR) Negative (Negative) 10/24/24 03:40 Blood Type A Positive 10/24/24 00:06 Antibody Screen NEGATIVE 10/24/24 00:06 Crossmatch See Detail 10/24/24 00:06 Impressions Abdomen/Pelvis CT 10/23/24 22:24 Exam(s): CT ABDOMEN + PELVIS Without Contrast EXAM: CT Abdomen and Pelvis Without Intravenous Contrast CLINICAL HISTORY: Reason for exam: severe llq pain. TECHNIQUE: Axial computed tomography images of the abdomen and pelvis without intravenous contrast. CTDI is 28.04 mGy and DLP is 1297.8 mGy-cm. Automated exposure control was utilized for the study. A dose lowering technique was utilized adhering to the principles of ALARA. COMPARISON: None FINDINGS: Lung bases: Bibasilar atelectasis. ABDOMEN: Liver: Unremarkable. Gallbladder and bile ducts: Unremarkable. No calcified stones. No ductal dilation. Pancreas: Unremarkable. No ductal dilation. Spleen: Unremarkable. No splenomegaly. Adrenals: Unremarkable. No mass. Kidneys and ureters: Unremarkable. No hydronephrosis or obstructing ureteral stone. Stomach and bowel: Clips seen along the stomach. Hyperdense material within the stomach could represent ingested material versus blood products. Blood products within the gastric wall are not excluded. Evaluation is somewhat limited without IV contrast. No free intraperitoneal blood identified. Diverticulosis without evidence of diverticulitis. No obstruction. PELVIS: Appendix: Normal appendix. Bladder: Unremarkable. No stones. Reproductive: Borderline size of the prostate. ABDOMEN and PELVIS: Intraperitoneal space: Unremarkable. No free air. No significant fluid collection. Bones/joints: Right convex curvature of the spine. Degenerative changes of the spine. Postsurgical changes at L5-S1. Grade 1 anterolisthesis of L5 on S1. No acute fracture. No dislocation. Soft tissues: Mild bilateral gynecomastia. Bilateral fat containing inguinal hernias. Ventral hernia repair. Small fat containing umbilical and ventral hernias. Vasculature: Atherosclerotic changes of the vasculature. No abdominal aortic aneurysm. Lymph nodes: Unremarkable. No enlarged lymph nodes. IMPRESSION: Clips seen along the stomach. Hyperdense material within the stomach could represent ingested material versus blood products. Blood products within the gastric wall are not excluded. Evaluation is somewhat limited without IV contrast. No free intraperitoneal blood identified. Electronically signed by: London Nielsen M.D. 10/24/24 00:[address] 10/23/24 22:27 Exam(s): CT CHEST Without Contrast EXAM: CT Chest Without Intravenous Contrast CLINICAL HISTORY: Reason for exam: severe mid abd pain. hx AA. TECHNIQUE: Axial computed tomography images of the chest without intravenous contrast. Automated exposure control was utilized for the study. A dose lowering technique was utilized adhering to the principles of ALARA. COMPARISON: No relevant prior studies available. FINDINGS: Lungs: Linear atelectasis left upper lobe. No mass. Pleural space: Unremarkable. No significant effusion. No pneumothorax. Heart: Aortic valve calcification. Coronary artery calcifications. No cardiomegaly. No significant pericardial effusion. Bones/joints: Unremarkable. No acute fracture. Soft tissues: Unremarkable. Vasculature: 6.8 cm thoracic aortic aneurysm at the aortic arch. Lymph nodes: Unremarkable. No enlarged lymph nodes. Other findings: Dense calcification. IMPRESSION: No acute findings in the chest. 6.8 cm thoracic aortic aneurysm Electronically signed by: Lester Reinoso MD 10/24/24 00:06 AM Abdomen/Pelvis CTA 10/24/24 01:46 EXAM: CT angio abdomen pelvis w con CLINICAL HISTORY: GI bleed, ? active bleeding TECHNIQUE: Contrast enhanced thin slice CT angiography scan of the abdominal aorta was performed with intravenous contrast. Angiographic images were processed, 3D MIP images were acquired for interpretation. Contiguous axial images were obtained. Reformatted coronal and sagittal images were also reviewed. If IV contrast material had not been administered, the likelihood of detecting abnormalities relevant to the patients condition would have been substantially decreased. CT scan was performed according to ALARA (as low as reasonable achievable). COMPARISON: apr 10:38:01 PIPE LINE REPA[employer]. FINDINGS: Diffuse atherosclerotic calcification is noted involving aorta. 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 Abdominal aorta is normal in course, calibre and opacification. Origin of coeliac artery, superior mesenteric artery , bilateral main renal and lumbar arteries shows diffuse atherosclerotic calcification with mild to moderate stenosis. No evidence of end organ ischemia seen. Bilateral common, external and internal iliac arteries shows diffuse atherosclerotic calcification without significant stenosis. About 11 x 9 mm sized hypodense lesion is noted involving segment IV of liver - appear simple cyst. Multiple small uncomplicated sigmoid colonic diverticulosis Solid abdominal organs including liver, spleen, pancreas and bilateral kidneys reveal no significant abnormality. Bowel loops are grossly unremarkable. No evidence of ascites. IMPRESSION: 1. Diffuse atherosclerotic calcification is noted involving aorta and its all major branches-stable. 2. 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 3. Small hepatic cyst.-stable. 4. Uncomplicated colonic diverticulosis.-stable. 5. No obvious extravasation of contrast/active bleed. Electronically signed by Aiden Licona 10-24-2024 03:09 AM
[2024-10-25] MEDS ORDERED: ACETAMINOPHEN 325 MG TAB PO PRN (15:36)
[2024-10-25] MEDS ORDERED: Nursing to Pharmacy Communication SCH (16:30)
[2024-10-25] MEDS: INSULIN ASPART PER UNIT CHARGE SC SCH (17:14)
[2024-10-26 07:11] LABS: Anion Gap 4.0 (3-11); Blood Urea Nitrogen 80.0 mg/dl (6-23); Calcium 7.9 mg/dl (8.6-10.3); Carbon Dioxide 25.0 mmol/L (21-32); Chloride 111.0 mmol/L (98-107); Creatinine Clr Calc Pharmacy 30.1 ml/min; Glucose 99.0 mg/dl (70-99(Fasting)); Magnesium 2.1 mg/dl (1.7-2.4); Potassium 3.9 mmol/L (3.5-5.1); Sodium 140.0 mmol/L (136-145)
[2024-10-26 07:50] LABS: Hematocrit (blood only) 26.4 % (42.0-52.0); Hemoglobin 8.5 g/dl (14.0-18.0); Mean Corpuscular Hemoglobin 32.8 pg (25.0-34.0); Mean Corpuscular Volume 101.9 fL (80.0-100.0); RDW Standard Deviation 57.0 fL (36.4-46.3); Red Blood Count 2.59 M/uL (4.70-6.10); White Blood Count 9.57 K/ul (4.8-10.8)
[2024-10-26] MEDS: FUROSEMIDE 40 MG TAB PO SCH (08:41)
[2024-10-26] MEDS: FERROUS SULFATE 325 MG TAB PO SCH (08:41)
[2024-10-26] MEDS: ATORVASTATIN 40 MG TAB PO SCH (08:42)
[2024-10-26] MEDS ORDERED: TRELEGY ELLIPTA INH SCH (09:00)
--- NOTE | 2024-10-26 17:06 | Hospitalist Progress Note ---
Date of Service October 26, 2024 Assessment & Plan (1) Acute GI bleeding: Plan: Mr. Fung is a 74-year-old male with past medical history significant for chronic hypoxic respiratory failure on home oxygen, COPD, obstructive sleep apnea on CPAP, dyslipidemia, GI bleeds in the past (December 2022), hyperparathyroidism, idiopathic chronic gout, aneurysm of subclavian artery, hypertension, stenosis of left renal artery, abdominal aortic aneurysm, thoracic aorta atherosclerosis, severe aortic stenosis, shaggy aorta syndrome, chronic diastolic CHF, history of supraventricular tachycardia, chronic atrial fibrillation, CKD stage IV, status post lumbar disc excision, iron deficiency anemia due to chronic blood loss, monoclonal paraproteinemia, history of shingles, history of CVA, history of biliary stent insertion, history of retinal artery occlusion who lives at home with his and sometimes uses walker to ambulate comes because of abdominal pain and back pain admitted for acute anemia iso 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 Patient also with hypertensive emergency requiring nicardipine drip. Patient improving subjectively, however, hgb notably downtrending slowly. Discussion of timing when to go home and whether home hospice perhaps best option if continued bleeding noted as patient wishes to be home. #Acute GI bleeding #Aortoenteric fistula #Acute on chronic anemia Continue care in the telemetry unit Large amount of hematemesis in the ER and became hypotensive and tachycardic. Eliquis on hold, S/P Kcentra was given along with TXA and IV fluids. Patient has had recurrent GI bleeds. d/c DOAC S/P 2 units of PRBCs . Transition to PO PPI BID VSS currently stable Advance diet #Chronic hypoxic respiratory failure on home oxygen History of COPD Continue home inhalers Nebs as needed Continue 3 liters. 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 If patient experience recurrent TIA/CVA symptoms despite reduced dose Eliquis to consider resumption of antiplatelet therapy. #History of asymptomatic ventricular tachycardia and supraventricular tachycardia continue metoprolol History of CVAs multiple HLD Currently Eliquis on hold for GI bleed. See discussion above. Will discontinue continue statin Hypertension continue diuretics and metoprolol Off Nicardipine gtt. Gout continue Allopurinol DVT prophylaxis SCDs Disposition Continue care on telemetry Per prior hospitalist, "Had a long discussion with the patient, family, GI and palliative medicine. 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 At this time the patient does not want to consider going to a tertiary care center for another opinion or starting any aggressive treatment. He just wants to go home. He would like the option to return if he has further bleeding for EGD if feasible. He understands the ramifications. Patient will update his advance directive and power of corporate driver. He is a DNR/DNI." Today, discussed dispo will be contingent on stabilization of hgb. If hgb remains stable, will plan for discharge home with close follow up. If still down trending, will discuss case with family again to determine if home hospice is more applicable. A total of 65 minutes spent in the care coordination for this patient. Admission and Anticipated Discharge Date Admission Date: October 24, 2024 Subjective NAEO reports overall subjective improvement, notes bowel movements still dark but now more firm than before denies any chest pain, palpitations, vision changes, or any other acute concerns denies any abdominal pain or associated nausea/vomiting Physical Exam Constitutional: WD/WN, vitals as above Respiratory: normal respiratory effort, lungs clear to auscultation Cardiovascular: RRR, no murmur, no edema Gastrointestinal (Abdomen): normal bowel sounds, soft, nontender, no hepatosplenomegaly Results & Data Results & Data Vital Signs (Past 12 Hours) Vital Signs Temp Pulse Pulse Resp BP BP Pulse Ox 10/26/24 16:28 10/26/24 15:52 62 10/26/24 14:48 36.5 C 93 H 14 139/77 90 10/26/24 11:07 36.6 C 65 16 156/85 H 97 10/26/24 09:11 10/26/24 07:56 36.5 C 62 16 145/72 H 100 O2 Del Method O2 Flow Rate 10/26/24 16:28 Nasal Cannula 3 10/26/24 15:52 10/26/24 14:48 Nasal Cannula 3 10/26/24 11:07 Nasal Cannula 3 10/26/24 09:11 Nasal Cannula 3 10/26/24 07:56 Nasal Cannula 3 Laboratory Results Short CBC 10/26/24 Range/Units 05:59 WBC 9.57 (4.8-10.8) K/ul Hgb 8.5 L (14.0-18.0) g/dl Hct 26.4 L (42.0-52.0) % Plt Count (130-400) K/uL BMP 10/26/24 05:59 Sodium 140 Potassium 3.9 Chloride 111 H Carbon Dioxide 25 BUN 80 H D Creatinine 2.30 H Glucose 99 Calcium 7.9 L Medications Administered Home Medications Medication Instructions Recorded Confirmed Last Taken albuterol sulfate 90 mcg/actuation 2 puff inhalation Q4H PRN Wheezing 01/30/23 10/24/24 Unknown aerosol inhaler allopurinol 300 mg tablet 150 mg PO DAILY 01/30/23 10/24/24 10/23/24 atorvastatin 80 mg tablet 80 mg PO QAM 01/30/23 10/24/24 10/23/24 azelastine 137 mcg (0.1 %) nasal 1 spray intranasal AMHS Nasal 01/30/23 10/24/24 10/23/24 08:00 spray Congestion cholecalciferol (vitamin D3) 50 50 mcg PO DAILY 01/30/23 10/24/24 10/23/24 mcg (2,000 unit) tablet (Vitamin D3) docusate sodium 100 mg capsule 100 mg PO BID 01/30/23 10/24/24 10/23/24 08:00 furosemide 20 mg tablet 40 mg PO QAM 01/30/23 10/24/24 10/23/24 ipratropium 0.5 mg-albuterol 3 mg 3 ml inhalation Q6H PRN Shortness 01/30/23 10/24/24 02/22/23 (2.5 mg base)/3 mL nebulization Of Breath Or Wheezing soln metoprolol tartrate 25 mg tablet 25 mg PO BID 01/30/23 10/24/24 10/23/24 08:00 potassium chloride 10 mEq 10 meq PO 3XWK 01/30/23 10/24/24 10/22/24 tablet,extended release(part/cryst) (Klor-Con M) fluticasone fur. 100 mcg-umeclid 1 inh inhalation QAM 02/15/23 10/24/24 10/23/24 62.5 mcg-vilant 25 mcg inhalat.powder (Trelegy Ellipta) ascorbic acid (vitamin C) 250 mg 125 mg PO QDL 04/21/23 10/24/24 10/23/24 tablet fluticasone propionate 50 2 spray intranasal DAILY PRN 04/21/23 10/24/24 Unknown mcg/actuation nasal Allergy Symptoms spray,suspension apixaban 2.5 mg tablet (Eliquis) 2.5 mg PO BID 09/02/23 10/24/24 10/23/24 08:00 pantoprazole 40 mg tablet,delayed 40 mg PO AMHS #60 tabs 09/15/23 10/24/24 10/23/24 08:00 release doxycycline hyclate 100 mg capsule 100 mg PO BID PRN RESCUE KIT FOR 10/24/24 10/24/24 10/23/24 08:00 COPD ferrous sulfate 325 mg (65 mg 325 mg PO QDL 10/24/24 10/24/24 10/23/24 iron) tablet (Feosol) guaifenesin 600 mg tablet, 600 mg PO Q12H PRN Congestion 10/24/24 10/24/24 Unknown extended release 12 hr prednisone 20 mg tablet 40 mg PO DAILY PRN RESCUE KIT FOR 10/24/24 10/24/24 Unknown COPD Active Medications Generic Name Dose Route Start Last Admin Trade Name Freq PRN Reason Stop Dose Admin Albuterol 3 ml 10/24/24 03:09 10/25/24 20:21 Albut/Ipratrop 3mg/0.5mg Neb 3 Ml Vial INH 11/23/24 03:08 3 ml Q6H PRN Administration Shortness Of Breath Or Wheezing Protocol Allopurinol 150 mg 10/26/24 09:00 10/26/24 08:41 Allopurinol 300 Mg Tab PO 11/25/24 08:59 150 mg DAILY MOLINA Administration Atorvastatin Calcium 80 mg 10/26/24 09:00 10/26/24 08:42 Atorvastatin 40 Mg Tab PO 11/25/24 08:59 80 mg QAM MOLINA Administration Ferrous Sulfate 325 mg 10/26/24 09:00 10/26/24 08:41 Ferrous Sulfate 325 Mg Tab PO 11/25/24 08:59 325 mg QAM MOLINA Administration Fluticasone Furoate 1 puffs 10/24/24 09:00 10/26/24 08:39 Fluticasone Furoate 100mcg 14 Puffs/Inhaler INH 11/23/24 08:59 1 puffs DAILY MOLINA Administration Furosemide 40 mg 10/26/24 09:00 10/26/24 08:41 Furosemide 40 Mg Tab PO 11/25/24 08:59 40 mg QAM MOLINA Administration Metoprolol Tartrate 12.5 mg 10/25/24 01:15 10/26/24 08:40 Metoprolol Tartrate 25 Mg Tab PO 11/24/24 01:14 12.5 mg BID MOLINA Administration Pantoprazole Sodium 40 mg 10/26/24 09:15 10/26/24 11:13 Pantoprazole 40 Mg Tab PO 11/25/24 09:14 40 mg BID MOLINA Administration Umeclidinium/Vilanterol 1 puffs 10/24/24 09:00 10/26/24 08:39 Umeclidinium/Vilanterol 62.5/25mcg 7 Puffs/Inhaler INH 11/23/24 08:59 1 puffs DAILY MOLINA Administration
[2024-10-26 17:57] LABS: Hematocrit (blood only) 28.0 % (42.0-52.0); Hemoglobin 9.1 g/dl (14.0-18.0)
[2024-10-27 07:31] LABS: Anion Gap 7.0 (3-11); Blood Urea Nitrogen 64.0 mg/dl (6-23); Calcium 7.8 mg/dl (8.6-10.3); Carbon Dioxide 25.0 mmol/L (21-32); Chloride 110.0 mmol/L (98-107); Creatinine Clr Calc Pharmacy 28.3 ml/min; Glucose 103.0 mg/dl (70-99(Fasting)); Magnesium 2.0 mg/dl (1.7-2.4); Potassium 3.6 mmol/L (3.5-5.1); Sodium 142.0 mmol/L (136-145)
[2024-10-27 07:59] LABS: Hematocrit (blood only) 25.9 % (42.0-52.0); Hemoglobin 8.7 g/dl (14.0-18.0); Mean Corpuscular Hemoglobin 34.0 pg (25.0-34.0); Mean Corpuscular Volume 101.2 fL (80.0-100.0); Platelet Count 100 K/uL (130-400); RDW Standard Deviation 55.1 fL (36.4-46.3); Red Blood Count 2.56 M/uL (4.70-6.10); White Blood Count 8.45 K/ul (4.8-10.8)
[2024-10-27 08:39] VITALS: RESP 18
[2024-10-27 09:40] VITALS: PULSE 68
--- NOTE | 2024-10-27 10:01 | Discharge Summary ---
Discharge Summary Date of Service October 27, 2024 Principal Dx & Hospital Course #1 = Principal Diagnosis (1) Acute GI bleeding: Mr. Fung is a 74-year-old male with past medical history significant for chronic hypoxic respiratory failure on home oxygen, COPD, obstructive sleep apnea on CPAP, dyslipidemia, GI bleeds in the past (December 2022), hyperparathyroidism, idiopathic chronic gout, aneurysm of subclavian artery, hypertension, stenosis of left renal artery, abdominal aortic aneurysm, thoracic aorta atherosclerosis, severe aortic stenosis, shaggy aorta syndrome, chronic diastolic CHF, history of supraventricular tachycardia, chronic atrial fib rillation, CKD stage IV, status post lumbar disc excision, iron deficiency anemia due to chronic blood loss, monoclonal paraproteinemia, history of shingles, history of CVA, history of biliary stent insertion, history of retinal artery occlusion who lives at home with his and sometimes uses walker to ambulate comes because of abdominal pain and back pain admitted for acute anemia iso 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 Patient also with hypertensive emergency requiring nicardipine drip. Patient improving subjectively and hemoglobin stablized around 8.5-91 over the course of 48 hours Patient wished to go home. He states he is aware that he will likely bleed again, but would like to continue to pursue "transfusions and scopes" if it "buys" him time to be home and active longer. Decision was made to discontinue eliquis for PAD at this time and risk of stroke was discussed. It was determined the risk of bleeding outweighed any benefit at this time. On day of discharge, patient was passing firm, darkly colored stool, ambulating at baseline, and denying any abdominal pain or discomfort. Yelena, daughter, was updated over phone. Family is seeking to pursue an assisted living situation for patient. #Acute GI bleeding #Aortoenteric fistula #Acute on chronic anemia Continue care in the telemetry unit Large amount of hematemesis in the ER and became hypotensive and tachycardic. Eliquis on hold, S/P Kcentra was given along with TXA and IV fluids. Patient has had recurrent GI bleeds. d/c DOAC S/P 2 units of PRBCs . continue PO PPI BID VSS currently stable tolerating advanced diet Discontinued eliquis #Chronic hypoxic respiratory failure on home oxygen History of COPD Continue home inhalers Nebs as needed Continue 3 liters. 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 If patient experience recurrent TIA/CVA symptoms despite reduced dose Eliquis to consider resumption of antiplatelet therapy. #History of asymptomatic ventricular tachycardia and supraventricular tachycardia continue metoprolol History of CVAs multiple HLD Currently Eliquis on hold for GI bleed. See discussion above. Will discontinue continue statin Hypertension continue diuretics and metoprolol Off Nicardipine gtt. Gout continue Allopurinol Notes For Next Care Provider Consider follow up with Nephrology, Heme/Onc Discussed hospice, patient may be open for consideration of establishing with palliative services/hospice as OP Medication Changes From Visit Discontinue eliquis Admission HPI Per Admitting Provider 74-year-old male with past medical history significant for chronic hypoxic respiratory failure on home oxygen, COPD, obstructive sleep apnea on CPAP, dysli pidemia, hyperparathyroidism, idiopathic chronic gout, aneurysm of subclavian artery, hypertension, stenosis of left renal artery, abdominal aortic aneurysm, thoracic aorta atherosclerosis, severe aortic stenosis, shaggy aorta syndrome, chronic diastolic CHF, history of supraventricular tachycardia, chronic atrial fibrillation, CKD stage IV, status post lumbar disc excision, iron deficiency anemia due to chronic blood loss, monoclonal paraproteinemia, history of shingles, history of CVA, history of biliary stent insertion, history of retinal artery occlusion who lives at home with his and sometimes uses walker to ambulate comes because of abdominal pain and back pain and in the ER he had large amount of hematemesis. Patient states since yesterday afternoon noticed abdominal pain and also back pain which prompted him to come to the ER. Currently abdominal pain is resolved after his vomiting. Denies any chest pain. No shortness of breath. Has chronic cough. Chronic shortness of breath from his COPD.Has runny nose. Denies any headache. No fevers. Micturating okay. Hemodynamics okay currently. Patient has history of GI bleeds in the past. He underwent EGD EGD/EUS small bowel enteroscopy and ERCP and Axios placement. 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 In December 2022 he was admitted [facility] for active upper GI bleeding angiectasia. At that time his hemoglobin was 5.9 received 4 units of PRBCs. 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 His Plavix was stopped. Currently is on Eliquis 2.5 mg twice daily. Octreotide injections were recommended. Past medical history. As mentioned above Past surgical history. Open repair of abdominal aortic aneurysm in 2008. Colonoscopy with biopsy. EGD. EGD with endoscopic ultrasound. ERCP. Lumbar disc excision. Lysis of adhesions and incisional hernia repair laparoscopically. Tonsillectomy adenoidectomy. Social history. . Quit smoking 2008. Smoked 1 pack a day or 35 years. Alcohol 3 standard drinks of alcohol per week as per [employer]. No drug use. Family history. Father had AAA. Brother has heart disease. Brother has hypertension. Mother was on dialysis. Sister has pacemaker. Admission Exam Per Admitting Provider General- Not in acute distress Head- atraumatic Eyes- PERRL. ENT- oropharynx clear Neck- supple, no JVD. Lungs- clear to auscultation no wheezing or crackles Heart- regular rate and rhythm; no murmur, no gallop. Abdomen- normal bowel sounds, soft, nontender, no distension Extremities- no pretibial edema, no erythema seen Neuro- alert, oriented PERRL, no facial palsy; no dysarthria; moves extremities Discharge Exam Constitutional WD/WN, vitals as above Respiratory normal respiratory effort, lungs clear to auscultation Cardiovascular RRR, no murmur, no edema Gastrointestinal (Abdomen) normal bowel sounds, soft, nontender, no hepatosplenomegaly Updated Medication List Medication Instructions Recorded Confirmed Type albuterol sulfate 90 mcg/actuation 2 puff inhalation Q4H PRN Wheezing 01/30/23 10/24/24 History aerosol inhaler allopurinol 300 mg tablet 150 mg PO DAILY 01/30/23 10/24/24 History atorvastatin 80 mg tablet 80 mg PO QAM 01/30/23 10/24/24 History azelastine 137 mcg (0.1 %) nasal 1 spray intranasal AMHS Nasal 01/30/23 10/24/24 History spray Congestion cholecalciferol (vitamin D3) 50 50 mcg PO DAILY 01/30/23 10/24/24 History mcg (2,000 unit) tablet (Vitamin D3) docusate sodium 100 mg capsule 100 mg PO BID 01/30/23 10/24/24 History furosemide 20 mg tablet 40 mg PO QAM 01/30/23 10/24/24 History ipratropium 0.5 mg-albuterol 3 mg 3 ml inhalation Q6H PRN Shortness 01/30/23 10/24/24 History (2.5 mg base)/3 mL nebulization Of Breath Or Wheezing soln metoprolol tartrate 25 mg tablet 25 mg PO BID 01/30/23 10/24/24 History potassium chloride 10 mEq 10 meq PO 3XWK 01/30/23 10/24/24 History tablet,extended release(part/cryst) (Klor-Con M) fluticasone fur. 100 mcg-umeclid 1 inh inhalation QAM 02/15/23 10/24/24 History 62.5 mcg-vilant 25 mcg inhalat.powder (Trelegy Ellipta) ascorbic acid (vitamin C) 250 mg 125 mg PO QDL 04/21/23 10/24/24 History tablet fluticasone propionate 50 2 spray intranasal DAILY PRN 04/21/23 10/24/24 History mcg/actuation nasal Allergy Symptoms spray,suspension pantoprazole 40 mg tablet,delayed 40 mg PO AMHS #60 tabs 09/15/23 10/24/24 Rx release doxycycline hyclate 100 mg capsule 100 mg PO BID PRN RESCUE KIT FOR 10/24/24 10/24/24 History COPD ferrous sulfate 325 mg (65 mg 325 mg PO QDL 10/24/24 10/24/24 History iron) tablet (Feosol) guaifenesin 600 mg tablet, 600 mg PO Q12H PRN Congestion 10/24/24 10/24/24 History extended release 12 hr prednisone 20 mg tablet 40 mg PO DAILY PRN RESCUE KIT FOR 10/24/24 10/24/24 History COPD Hospital Stay Data Consultations 10/24/24 01:23 ED Decision to Admit Stat 10/24/24 02:13 ED Decision to Admit Stat 10/24/24 03:09 Consult Gastroenterology Routine Consult Event Host Routine 10/24/24 14:04 Consult Palliative Care Routine Procedures Performed Operation Date: 10/24/24 05:05 Actual Procedures p Esophagogastroduodenoscopy(Not Applicable) - Juice Marshall MD Diagnostic Imagining Performed 10/23/24 22:24 CT abd pelvis wo con Stat 10/23/24 22:27 CT chest diagnostic wo con Stat 10/24/24 01:46 CTA abdomen pelvis w con [CT angio abdomen pelvis w con] Stat Pending Results Patient Have Any Pending Studies at Discharge: No Discharge Instructions Given to Patient (Per Discharging Provider) You were admitted to the hospital with an aortoenteric fistula, or a connection from your small bowl to your aorta. You experienced large volume bleeding requiring blood transfusions. It was discussed that you would not be likely to tolerate a surgery. At this time your blood level has been stable for 48 hours. You will stop eliquis at this time. There is a risk for stroke given your history of atrial fibrillation, but it was discussed that the risk of bleeding again is much more immediate and likley at this time. Total Time Total Time Spent Total Time Spent (In Minutes): 45
[2024-10-27 11:06] VITALS: TEMP 97.9; O2SAT 92
[2024-10-27 12:40] VITALS: BP 170/90
== END 2024-10-27 13:22 | disposition home health service (06) | DRG 300 ==
LOC: ED 22:11 → SUATTDRO 10-24 02:22 → 1E 10-24 02:22 → 2S 10-25 03:26